=== PATIENT | male | born 1940 | race Caucasian/White ===

== ENCOUNTER → 2017-12-17 11:59 | Outpatient (CLI) | payer BC, MEDICARE, SELFPAY ==
[2017-12-17 14:52] LABS: T4 Free Direct 1.03 ng/dL (0.76-1.46); Thyroid Stim Hormone (TSH) 1.92 uIU/mL (0.358-3.74)
== END ==
PROVIDERS: Family Provider Family Medicine; PCP Family Medicine; Visit Provider Family Medicine
DX: R60.9 Edema, unspecified (principal); R53.83 Other fatigue
CPT/HCPCS: 36415; 84439; 84443

== ENCOUNTER → 2018-01-18 13:23 | Outpatient (CLI) | payer BC, MEDICARE, SELFPAY ==
--- NOTE | 2018-01-18 13:28 | RAD_ITS ---
STUDY: SWALLOWING STUDY REASON FOR EXAM: Male, 77 years old. Dysphagia. TECHNIQUE: The examination was performed with Speech Pathology in attendance. Under fluoroscopic observation, the patient ingested thin barium, thick barium, barium pudding, and barium coated cracker. FLUOROSCOPY TIME: 2:05 minutes/seconds. 1166 fluoroscopic images were obtained. RADIOLOGIST INVOLVEMENT: Radiologist was present and providing direct supervision. COMPARISON: None. FINDINGS: The following was observed during swallowing of the various mixtures of barium: Thin Barium: There was no evidence of aspiration or laryngeal penetration. Barium Pudding: There was no evidence of aspiration or laryngeal penetration. Barium Coated Cracker: There was no evidence of aspiration or laryngeal penetration. RAD/Swallowing Function w/Video IMPRESSION: Normal tailored barium swallow study. No evidence of increased risk for aspiration. The swallow study findings were discussed with the patient by the speech pathologist at the conclusion of the examination. Please see speech pathology report for more information and recommendations. Electronically Signed: Luisito Figueroa MD at 14:34 EDT Tel [phone], Service support ,
--- NOTE | 2018-01-18 13:30 | SP.MBSS_ITS ---
PRIMARY / SECONDARY DIAGNOSIS: dysphagia (R13.10) REFERRING PHYSICIAN: Dr. Yovanny Obando MD CURRENT DIET: regular textures, thin liquids DENTITION: WFL MENTAL STATUS: WNL RESPIRATORY STATUS: O2 via room air PREVIOUS MODIFIED BARIUM SWALLOW STUDY: none REASON FOR REFERRAL: Patient is a 77 year old male referred for a modified barium swallow (MBS) study to objectively assess the Patients oropharyngeal swallow function secondary to the diagnosis of inclusion body myositis. Patient reporting difficulties primarily with solid textures of various texture subtypes, with a consistent sensation of bolus retention requiring consistent liquid wash. Patient reports gradual onset with a gradual increase in regards to significance over the past 6 months. Dysphagia symptoms somewhat improve with execution of a right head tilt. Patient reports mild xerostomia; denies odynophagia, denies sialorrhea or dysgeusia / ageusia, denies any aspiration related pulmonary complications. Patient ambulating to the study with use of an assisted device (rollator walker); reports and demonstrates difficulties with standing from a seated position. MEDICAL HISTORY: Lymphoma, inclusion body myositis, osteopenia, anemia, hypertension STUDY FINDINGS: Patient participated in a Modified Barium Swallow (MBS) study on 01/18/2018. Dr. Figueroa was the radiologist present for this evaluation. This study was recorded in the lateral view and images were sent to PACs for storage. The following consistencies were presented to this patient for analysis of oropharyngeal swallow function: thin liquids, pudding, and a regular textured, Kay Doone cookie. Results of the MBS are as follows: PENETRATION / ASPIRATION SCALE (CLARKE): 1 = does not enter airway 2 = enters airway/above vocal folds/ejected 3 = enters airway/above vocal folds/not ejected 4 = enters airway/contacts vocal folds/ejected 5 = enters airway/contacts vocal folds/not ejected 6 = enters airway/below vocal folds/ejected 7 = enters airway/below vocal folds/not ejected despite effort 8 = enters airway/below vocal folds/no effort PENETRATION / ASPIRATION SCALE (SCORE): Thin liquid - 5 mL tsp.: 1 Thin liquids via cup (sequential swallows): 1 Thin liquids via cup (sequential swallows): 1 Pudding via spoon: 1 Pudding via spoon (right head tilt): 1 Thin liquids via cup (single sip): 1 Pudding via spoon (right head tilt): 1 Thin liquids via cup (single sip): 1 Regular textured cookie: 1 Thin liquids via cup (single sip): 1 Thin liquids via cup (single sip): 1 Thin liquids via cup (single sip): 1 IMPRESSION: DIAGNOSIS: mild to moderate oropharyngeal dysphagia (R13.12) ORAL PHASE CHARACTERIZED BY: LABIAL SEAL: no labial escape TONGUE CONTROL DURING BOLUS MANIPULATION: cohesive bolus between tongue to palatal seal BOLUS PREPARATION / MASTICATION: slow prolonged chewing/mashing with complete recollection BOLUS TRANSPORT / LINGUAL MOTION: slowed tongue motion primarily with more viscous and solid textures ORAL RESIDUE: residue collection on oral structures PHARYNGEAL PHASE CHARACTERIZED BY: INITIATION OF PHARYNGEAL SWALLOW: bolus head in valleculae at first hyoid excursion SOFT PALATE ELEVATION: no bolus between soft palate and pharyngeal wall LARYNGEAL ELEVATION: partial superior movement of thyroid cartilage/partial approximation of arytenoids cartilage to epiglottic petiole ANTERIOR HYOID EXCURSION: trace anterior movement EPIGLOTTIC MOVEMENT: partial epiglottic inversion LARYNGEAL VESTIBULE CLOSURE AT HEIGHT OF SWALLOW: complete laryngeal vestibule closure with no air/contrast in laryngeal vestibule PHARYNGEAL STRIPPING WAVE: pharyngeal stripping wave present / significantly diminished PHARYNGOESOPHAGEAL SEGMENT OPENING: partial duration; partial obstruction of flow TONGUE BASE RETRACTION: narrow column of contrast between tongue base and posterior pharyngeal wall PHARYNGEAL RESIDUE: collection of residue within or on pharyngeal structures ESOPHAGEAL PHASE CHARACTERIZED BY: ESOPHAGEAL BOLUS CLEARANCE IN THE UPRIGHT POSITION: could not view EFFECTS OF TREATMENT STRATEGIES ATTEMPTED: Right head tilt = moderately effective Liquid chaser = moderately effective Reduced bolus size = moderately effective DIET TEXTURE RECOMMENDATIONS: Will recommend a mechanical soft textured, thin liquid diet. COMPENSATORY STRATEGIES RECOMMENDED: Right head tilt primarily with solids, reduced bolus volume, liquid chaser following all solid and semi-solid bolus intake, seated upright at 90 degrees during PO intake, INTERPRETATION OF RESULTS: Patient presents with mild to moderate oropharyngeal dysphagia (R13.12) secondary to the diagnosis of inclusion body myositis. Oral preparatory phase marked by functional mastication abilities with mild increase in regards to mastication duration likely attributed to xerostomia and anticipated difficulties during the pharyngoesophageal phase of deglutition. Oral transit marked by somewhat slowed and disjointed transit primarily with more viscous textures and solid textures, with additional piecemeal deglutition and self- limited bolus volumes associated again to anticipated pharyngoesophageal phase deficits. Pharyngeal phase primarily marked by significant pharyngeal dysmotility attributed to impaired pharyngeal constriction, most notably impaired posterior pharyngeal stripping wave action, resulting in pharyngeal retention within the valleculae and pyriforms, and reduced pharyngoesophageal segment opening duration and synchrony complicating pharyngeal clearance; and reduced anterior hyoid excursion resulting in insufficient epiglottic inversion and inconsistent pharyngoesophageal segment opening and synchrony, with additional higher likelihood for reduced closure of the airway during deglutition. Modest improvements in pharyngeal clearance noted with a right head tilt and execution of a liquid wash. No aspiration or penetration appreciated throughout consistencies trialed. RECOMMENDATIONS: Patient may benefit from continued skilled speech-language intervention targeting continued diet texture management; training and implementation of recommended compensatory strategies; with further treatment planning following clinical examination. ADDITIONAL COMMENTS/RECOMMENDATIONS: Results and recommendations were discussed with the Patient immediately following MBS completion, with the Patient verbalizing understanding and agreement with all recommendations and education provided. IMAGE COUNT: [id number] G-CODES: SWALLOWING G8996 Current Status: CJ SWALLOWING G8997 Goal Status: CI SWALLOWING G8998 Discharge Status: YAJAIRA Radford M.A., CCC-TEST AND BALANCE ENGINEER [facility] Speech-Language Pathology Department [email or web address]
== END ==
PROVIDERS: Family Provider Family Medicine; PCP Family Medicine; Visit Provider Otolaryngology
DX: R13.10 Dysphagia, unspecified (principal); G72.41 Inclusion body myositis [IBM]
CPT/HCPCS: 74230; 92611; G8996; G8997; G8998

== ENCOUNTER → 2018-08-12 17:00 | Outpatient (CLI) | payer MEDICARE, OTHER, SELFPAY ==
[2017-12-04 13:17] VITALS: BMI 28.8
--- NOTE | 2018-08-12 | CYSPIN_PTH ---
PATIENT: JEANIE LANDRY LOC: [facility] U#:[id number] AGE/SX: 84/M ROOM: RE08/12/[address]: Dr. Andrea Jones MD : 1940 BED: DIS: SPEC #: [id number] RECD: 08/13/18 11:25 STATUS: RAFAT KARSON #: [id number] [place]: 08/12/18 00:[address]: Andrea Jones DEPT: CYTOLOGY RECD BY: Pilo Hawk ENTERED: 08/13/18 11:26 SP TYPE: CYSPIN FL OTHR DR: Dr. Tee Pendleton MD Tissues: Urine Procedures: Pap Stain (control) Special Stain Group II Cytospin Fluid HEADER OPERATION: Not noted PRE-OP DIAGNOSIS: Gross hematuria TISSUE SUBMITTED: Urine for cytology DIAGNOSIS CYTOLOGY Urine for cytology (cytospin): Negative for malignant cells. AM:jada 08/14/18 CYTOLOGY STUDY Slides are reviewed. CYTOLOGY GROSS Received is 85 ml of clear yellow fluid labeled with the patient's name and and designated per the requisition as urine. Submitted for cytology preparation. 08/13/18 TC:5 CPT: 48146
[2018-08-12 17:17] LABS: Cytology, Body Fluid / CSF SEE PATHOLOGY REPORT
== END ==
PROVIDERS: Family Provider Family Medicine; PCP Family Medicine; Referring Provider Urology; Visit Provider Urology
DX: R31.0 Gross hematuria (principal)
CPT/HCPCS: 88108; 88313

== ENCOUNTER → 2018-08-22 13:24 | Outpatient (CLI) | payer MEDICARE, OTHER, SELFPAY ==
[2017-12-04 13:17] VITALS: BMI 28.8
--- NOTE | 2018-08-22 13:28 | CT_ITS ---
STUDY: CT ABDOMEN AND PELVIS WITH AND WITHOUT CONTRAST REASON FOR EXAM: Male, 77 years old. Hematuria RADIATION DOSAGE (If Supplied By Facility): CTDIvol = ( 21.31 ) mGy, DLP = ( 2420.35 ) mGycm TECHNIQUE: Transaxial images were obtained from the dome of the diaphragm to the symphysis pubis without oral contrast. 100 IV Isovue 300 was administered. Sagittal and coronal images were reconstructed. Individualized dose optimization techniques were used for this CT. COMPARISON: None. FINDINGS: The visualized lung bases are unremarkable. The visualized portions of the heart are within normal limits. Normal liver. Normal gallbladder and extrahepatic biliary system. Normal spleen. Normal pancreas. Normal bilateral adrenal glands. There are no urinary calculi. There is no hydronephrosis. There is symmetric enhancement and excretion noted in the kidneys following contrast administration. There is a large hiatal hernia noted. Normal small intestine. Normal colon. The appendix is visualized and appears normal. Normal abdominal aorta. Normal inferior vena cava. Normal retroperitoneum. Normal urinary bladder. Normal abdominal wall. Normal osseous structures. CT/CT Abd/Pelvis W/WO Contrast IMPRESSION: No cause for patient's hematuria identified on this study. Large hiatal hernia. Electronically Signed: Fuad Duque, at 20:12 EDT Tel , Service support ,
[2018-08-22 13:56] LABS: CREATININE FINGERSTICK 0.8 mg/dL (0.70-1.30)
== END ==
PROVIDERS: Family Provider Family Medicine; PCP Family Medicine; Referring Provider Urology; Visit Provider Urology
DX: R31.0 Gross hematuria (principal)
CPT/HCPCS: 74178; Q9967

== ENCOUNTER → 2019-07-07 15:30 | Outpatient (CLI) | payer MEDICARE, OTHER, SELFPAY ==
--- NOTE | 2019-07-07 15:33 | VDLE_ITS ---
Reason For Study: Edema RIGHT GSV is normal. CFV is compressible, spontaneous, phasic, competent and demonstrates normal augmentation. FV is compressible, spontaneous, phasic, competent and demonstrates normal augmentation. POP V is compressible, spontaneous, phasic, competent and demonstrates normal augmentation. T/P Trunk is compressible. PTV is compressible. RT PerV is compressible. Difficult to visualize Rt calf veins due to edema. Procedure Exam performed in department. A preliminary report was called and/or faxed to Dr. Pendleton. Interpretation Summary There is no evidence of right lower extremity deep vein thrombosis. Right great saphenous vein appears patent and compressible segmentally. Difficult to visualize right calf veins as noted. Ordering Physician: Tee Pendleton Referring Physician: Tee Pendleton Performed By: [place] Saleh, DELORIS, RVT
== END ==
PROVIDERS: PCP Family Medicine; Referring Provider Family Medicine; Visit Provider Family Medicine
DX: R60.0 Localized edema (principal)
CPT/HCPCS: 93971

== ENCOUNTER 2022-09-13 16:37 | Outpatient (RCR) | payer MEDICARE, OTHER, SELFPAY ==
[2022-09-13 17:15] LABS: Bacteria 0 SEEN /hpf (None Seen); Mucous, Urine 0 SEEN /hpf (<or=2+); Red Blood Cells-Urine 0 SEEN /hpf (0-5); Squamous Epithelial Cells - UA 0 SEEN /hpf (0-5); White Blood Cells 0 SEEN /hpf (0-5)
[2022-09-13 17:24] LABS: Absolute Lymphocyte Count 1.17 X10^3/uL (0.83-4.51); Absolute Neutrophil Count 2.9 X10^3/uL (2.0-7.7); Basophil# 0.04 X10^3/uL; Basophil% 0.8 % (0-1); Eosinophil# 0.15 X10^3/uL; Hematocrit 41.6 % (40-54); Hemoglobin 13.5 g/dL (13.0-16.5); Lymphocyte # 1.17 X10^3/ul (0.83-4.51); Lymphocyte % 23.5 % (19-41); Mean Corp Hgb Conc 32.5 g/dL (32-36); Mean Corpuscular Hgb 31.8 pg (27.0-32.0); Mean Corpuscular Volume 97.9 fL (80-94); Mean Platelet Vol. 11.4 fl (6.2-12.0); Monocyte# 0.71 X10^3/uL; Monocyte% 14.3 % (0-10); NRBC Flagged by Analyzer 0 % (0-5); Neutrophil # 2.88 X10^3/uL (2.7-7.7); Platelet Count 188 K/mm3 (150-450); RBC Distribution Width CV 12.9 % (11.6-14.6); RBC Distribution Width SD 46.2 fl (35.1-43.9); Red Blood Count 4.25 M/mm3 (4.6-6.2)
[2022-09-13 17:46] LABS: Vitamin B12 982 pg/mL (211-911); Vitamin D,25 Hydroxy 95.7 ng/mL
[2022-09-13 18:03] LABS: Microalbumin,Random Urine 16.1 mg/L (NO RANGE EST.); Microalbumin:Creatinine Ratio 54.2 mg/g CRE (<30 mg/g CRE)
[2022-09-13 18:12] LABS: Color, Urine Yellow (Yellow); Glucose, Dipstick Normal (Normal); Ketone-Dipstick Negative (Negative); Leukocyte Esterase-Dipstick 25 /ul (Negative); Nitrite-Dipstick Negative (Negative); Occult Blood-Urine Negative /ul (Negative); Protein-Dipstick Negative (Negative); Urine Bilirubin Dipstick Negative (Negative); Urine Clarity Clear (Clear); Urine Urobilinogen Normal (Normal); Urine pH 6.5 (5.0 - 8.0)
[2022-09-13 18:19] LABS: BNP,B-Type NATRIURETIC PEPTIDE 20.3 pg/mL (0-100)
[2022-09-13 18:23] LABS: ALB/GLOB Ratio 1.1 RATIO (0.9-2.4); AST(SGOT) 16 U/L (15-37); Alanine Aminotransfer ALT/SGPT 26 U/L (16-61); Albumin, Serum 3.8 g/dL (3.2-5.0); Alkaline Phosphatase 63 U/L (45-117); Anion Gap 5 (5-15); BUN 20 mg/dL (7-18); BUN/Creat Ratio 48.7 RATIO (10-20); Calcium,Total 9.4 mg/dL (8.5-10.1); Chloride 105 mmol/L (98-107); Cholesterol 175 mg/dL (200); Creatinine, Serum 0.41 mg/dL (0.70-1.30); EST Glomerular Filtration Rate 211 mL/min (>60); Est Glom Filt Rate - Afr Amer 255 mL/min (>60); Globulin 3.6 g/dL (2.2-4.2); Glucose 122 mg/dL (74-106); High Density Lipoprotein 79 mg/dL; PSA,Total - Annual Screen 3.23 ng/mL (0.00-4.00); Potassium 4.5 mmol/L (3.5-5.1); Protein, Total 7.4 g/dL (6.4-8.2); Sodium Level 139 mmol/L (136-145); Thyroid Stim Hormone (TSH) 2.06 uIU/mL (0.358-3.74); Triglycerides 91 mg/dL; Very Low Density Lipoprotein 18 mg/dL (5-40)
== END 2022-10-04 23:59 ==
LOC: HHLAB 16:37
PROVIDERS: PCP Family Medicine; Referring Provider Internal Medicine; Visit Provider Internal Medicine
DX: L03.115 Cellulitis of right lower limb (principal); I87.2 Venous insufficiency (chronic) (peripheral); L97.819 Non-pressure chronic ulcer of other part of right lower leg with unspecified severity
CPT/HCPCS: 80053; 80061; 81001; 82043; 82306; 82570; 82607; 82746; 83880; 84153; 84443; 85025; G0103

== ENCOUNTER 2022-12-17 15:34 | Emergency (ER) | payer MEDICARE, OTHER, SELFPAY ==
[2022-12-17 15:35] VITALS: BP 167/68; PULSE 65; RESP 18; TEMP 36.2; O2SAT 98
--- NOTE | 2022-12-17 15:42 | CT_ITS ---
STUDY: CT BRAIN WITHOUT CONTRAST REASON FOR EXAM: Male, 82 years old. fall, head injury RADIATION DOSAGE (If Supplied By Facility): CTDIvol = ( 44.99 ) mGy, DLP = ( 526.67 ) mGycm TECHNIQUE: Transaxial CT imaging of the brain was performed without administration of intravenous contrast material. Individualized dose optimization techniques were used for this CT. COMPARISON: No relevant priors. FINDINGS: Normal soft tissue structures. Normal calvarium. Calcific plaquing of the cavernous carotids Normal size ventricles and extra-axial spaces for the patient''s age. Mild periventricular white matter ischemic changes.. Normal basal ganglia and thalami. Normal brainstem. Normal cerebellum. There is no intracranial hemorrhage. There are no findings of an acute ischemic infarction. Postsurgical changes of the orbits Mild mucosal thickening of the ethmoid air cells CT/Brain/Head without Contrast IMPRESSION: Mild periventricular white matter ischemic change. No evidence for acute intracranial hemorrhage. Electronically Signed: Paulie Licona MD at 16:07 EDT ,
--- NOTE | 2022-12-17 15:46 | EX.ED.DYSGE1 ---
HPI <BENNETT Miranda - Last Filed: 12/17/22 18:48> History of Present Illness Chief Complaint: Fall Narrative Narrative: Patient presenting due to a fall that occurred at home this afternoon. He reports that he was trying to watch the baseball game and went to stand up to change the channel on the TV and normally has to lock his knees in order to ambulate due to his history of myositis and loss of muscle mass, however, his knees became unlocked and he lost his balance and fell onto his bottom and then hit his head on the ground. He reports that the ground is cement with a thin layer of carpet. He has a laceration to the back of his head. He is unsure of his last tetanus update. He denies loss of consciousness, use of blood thinners, vomiting, feeling dazed or confused. PFS <BENNETT Miranda - Last Filed: 12/17/22 18:48> [facility] Medical History Anemia CYST EXCISION RIGHT BREAST Hypertension Myositis Osteopenia Home Medications lisinopril 10 mg tablet 5 mg PO DAILY 03/29/16 [History Last Taken Unknown] Cholecalciferol (Vitamin D3) 1,000 units PO DAILY 07/31/16 [History Last Taken Unknown] multivitamin with folic acid 400 mcg tablet (Thera) 1 tab PO DAILY 07/31/16 [History Last Taken Unknown] cyanocobalamin (vitamin B-12) 1,000 mcg sublingual tablet 1,000 mcg sublingual DAILY 12/04/17 [History Last Taken Unknown] Nitric Oxide 420 mg PO DAILY 12/04/18 [History Last Taken Unknown] coenzyme Q10 50 mg chewable tablet 200 mg PO DAILY 12/04/18 [History Last Taken Unknown] elderberry fruit 200 mg capsule 200 mg PO DAILY 12/17/22 [History Last Taken Unknown] turmeric 400 mg capsule 400 mg PO DAILY 12/17/22 [History Last Taken Unknown] Allergy/AdvReac Type Severity Reaction Status Date / Time bacitracin AdvReac Mild Itching Verified 12/17/22 15:35 [From Neosporin ([id number])] neomycin AdvReac Mild Itching Verified 12/17/22 15:35 [From Neosporin ([id number])] polymyxin B AdvReac Mild Itching Verified 12/17/22 15:35 [From Neosporin ([id number])] adhesive tape AdvReac Unknown Verified 12/17/22 15:35 Family History Father Colon cancer Mother Gastric cancer Surgical History History of cataract extraction Social History Smoking Status: Never smoker ROS <BENNETT Miranda - Last Filed: 12/17/22 18:48> ROS ED Constitutional Constitutional ED: Denies chills or fever(s) Eyes Eyes: Denies change in vision Cardiovascular Cardiovascular: Denies chest pain or palpitations Respiratory/Chest Respiratory/Chest: Denies cough or dyspnea Gastrointestinal Gastrointestinal: Denies abdominal pain, nausea or vomiting Musculoskeletal Musculoskeletal: Reports arthralgias; Denies back pain, myalgias or neck pain Integumentary Reports laceration Neurologic Neurologic: Denies confusion, dizziness, headache(s) or weakness EXAM <BENNETT Miranda - Last Filed: 12/17/22 18:48> Physical Exam Const Vital Signs: 12/17/22 15:35 12/17/22 15:43 Temperature 97.2 F L Temperature Source Temporal Pulse Rate 65 Respiratory Rate 18 Respiratory Effort Normal Non-Labored Respiratory Depth Normal Respiratory Pattern Normal Blood Pressure 167/68 H Blood Pressure Mean 101 Pulse Ox 98 Oxygen Delivery Method Room Air Positive well nourished, well developed and no apparent distress General Appearance ED: well developed HEENT Reports normocephalic HEENT Narrative: 4 cm linear full-thickness laceration to the posterior scalp Mouth ED: Yes moist mucous membranes normal Eyes PERRL and EOMs intact bilaterally Neck full ROM and supple Chest Wall inspection of chest normal Resp normal respiratory effort and clear to auscultation bilaterally Cardio regular rate and regular rhythm GI soft to palpation, non-tender, non-distended and no masses Back/Spine normal ROM and normal to inspection Extremity normal to inspection and full ROM Neuro oriented x3, CN's II-XII intact bilaterally, moves all extremities, no focal motor deficits and no sensory deficits noted Sensorium / Orientation: awake and alert Psych mental status grossly normal and thought process normal Skin no rashes or lesions noted and no wounds <Dr. Tor Yadav MD - Last Filed: 12/17/22 16:06> Physical Exam Const Vital Signs: 12/17/22 15:35 12/17/22 15:43 Temperature 97.2 F L Temperature Source Temporal Pulse Rate 65 Respiratory Rate 18 Respiratory Effort Normal Non-Labored Respiratory Depth Normal Respiratory Pattern Normal Blood Pressure 167/68 H Blood Pressure Mean 101 Pulse Ox 98 Oxygen Delivery Method Room Air MDM <BENNETT Miranda - Last Filed: 12/17/22 18:48> [facility] Narrative Medical decision making narrative: Patient presenting today for evaluation after mechanical fall that occurred this afternoon at home. He fell backwards onto his bottom and then hit his head on the ground. He does have a 4 cm linear full-thickness laceration to his posterior scalp that will need closure. He reports some pain to his bilateral knees but did not hit his knees on the ground, therefore, I do not feel that any imaging of his knees is indicated. However, he did tell the attending that his back was very sore, lumbar x-ray obtained to rule out fracture and is negative. Head CT will be obtained to rule out intracranial bleed and is negative for any acute fractures. Tetanus updated. Laceration was sutured, patient tolerated procedure well. He was able to ambulate at discharge and discharged home in stable condition. Patient and are comfortable with plan. I have personally performed a face to face assessment of the patient and have reviewed the GET Note. I performed a substantive portion of the visit including all aspects of the following. My [place] findings include: History is 82-year-old male history of inclusion body myositis with muscular wasting. He is down his basement and lost his balance fell backwards struck his head causing a laceration. No LOC. Is not on blood thinners. Complaining of low back pain. No other injuries. Exam is [82-year-old male vital signs stable afebrile. HEENT exam top of the scalp is a vertical laceration which on active losing of blood. Hematoma. Tenderness. Face nontender. C-spine and trachea nontender. Lungs clear. Chest wall and ribs nontender. Heart regular rhythm rate about 65 no murmur. Abdomen soft nontender. Pelvic girdle intact. He has very limited range of motion he is weak in both upper and lower extremities due to his chronic condition. He has chronic edema both lower extremities. He has mild tenderness over his lumbar spine. Neurologically he is awake and alert. Answering questions and following commands. He has generalized weakness.] Medical Decision Making [82-year-old fell has a significant head injury with laceration and hematoma. CAT scan will be obtained to rule out intracranial bleed or skull fracture. Tetanus has been updated. He will be suture repaired.] Other additions or changes: [None] Radiography X-Ray: Read by ED Physician and Read by Radiologist Diagnostic Testing: Clinical Impression(s) from Imaging Studies Brain CT 12/17/22 15:42 IMPRESSION: Mild periventricular white matter ischemic change. No evidence for acute intracranial hemorrhage. Electronically Signed: Paulie Licona MD at 16:07 EDT , Lumbar Spine X-Ray 12/17/22 16:15 IMPRESSION: Scoliosis and degenerative change. No acute fracture or other significant bony pathology. Electronically Signed: Paulie Licona MD at 16:43 EDT , <Dr. Tor Yadav MD - Last Filed: 12/17/22 16:06> [facility] Narrative Medical decision making narrative: Patient presenting today for evaluation after mechanical fall that occurred this afternoon at home. He fell backwards onto his bottom and then hit his head on the ground. He does have a 4 cm linear full-thickness laceration to his posterior scalp that will need closure. He reports some pain to his bilateral knees but did not hit his knees on the ground, therefore, I do not feel that any imaging of his knees is indicated. Head CT will be obtained to rule out intracranial bleed. I have personally performed a face to face assessment of the patient and have reviewed the GET Note. I performed a substantive portion of the visit including all aspects of the following. My [place] findings include: History is 82-year-old male history of inclusion body myositis with muscular wasting. He is down his basement and lost his balance fell backwards struck his head causing a laceration. No LOC. Is not on blood thinners. Complaining of low back pain. No other injuries. Exam is [82-year-old male vital signs stable afebrile. HEENT exam top of the scalp is a vertical laceration which on active losing of blood. Hematoma. Tenderness. Face nontender. C-spine and trachea nontender. Lungs clear. Chest wall and ribs nontender. Heart regular rhythm rate about 65 no murmur. Abdomen soft nontender. Pelvic girdle intact. He has very limited range of motion he is weak in both upper and lower extremities due to his chronic condition. He has chronic edema both lower extremities. He has mild tenderness over his lumbar spine. Neurologically he is awake and alert. Answering questions and following commands. He has generalized weakness.] Medical Decision Making [82-year-old fell has a significant head injury with laceration and hematoma. CAT scan will be obtained to rule out intracranial bleed or skull fracture. Tetanus has been updated. He will be suture repaired.] Other additions or changes: [None] History & Record Review Discussion w/independent historian: Patient and Family Radiography Diagnostic Testing: Clinical Impression(s) from Imaging Studies Brain CT 12/17/22 15:42 IMPRESSION: Mild periventricular white matter ischemic change. No evidence for acute intracranial hemorrhage. Electronically Signed: Paulie Licona MD at 16:07 EDT , Lumbar Spine X-Ray 12/17/22 16:15 IMPRESSION: Scoliosis and degenerative change. No acute fracture or other significant bony pathology. Electronically Signed: Paulie Licona MD at 16:43 EDT , Procedures <BENNETT Miranda - Last Filed: 12/17/22 18:48> Lacerations Laceration: Length: 4 cm Depth: Sub Q Shape: Linear Laceration repair: Irrigated and Lidocaine with epi Irrigated (ml): 100 Number of Sutures/Naveen: 6 Suture Information: Ethilon (4-0) and Simple Discharge Plan Triage Chief Complaint: Fall Other Complaint: Head Injury Laceration ED Midlevel Provider: Maria Dolores Shay ED Provider: Tor Yadav Dx/Rx/DC Orders Clinical Impression: Head injury, Fall, Laceration of scalp Instructions: ED Head Injury (Adult), ED Laceration Scalp Stitches or Naveen Prescriptions: No Action multivitamin with folic acid [Thera] 1 TABLET tablet 1 tab PO DAILY Cholecalciferol (Vitamin D3) 1,000 U 1,000 units PO DAILY lisinopril 10 mg tablet 5 mg PO DAILY Patient Comments: once a day cyanocobalamin (vitamin B-12) 1,000 MCG tablet, sublingual 1,000 mcg sublingual DAILY coenzyme Q10 50 MG tablet,chewable 200 mg PO DAILY Nitric Oxide 420 mg PO DAILY turmeric 400 mg capsule 400 mg PO DAILY elderberry fruit 200 mg capsule 200 mg PO DAILY Primary Care Provider: Taylor Zuniga Referrals: Tee Pendleton MD [Non-Staff] - 10-14 Days suture removal Activity Restrictions/Additional Instructions: Please follow-up with your PCP. Please have sutures removed in 10 to 14 days and return for any worsening of your symptoms. Disposition Disposition: Home, Self Care Discharge Date/Time: 12/17/22 18:08
[2022-12-17] MEDS: Diphth,Pertuss(Acell),Tet Vac 0.5 ML Vial IM (15:49)
--- NOTE | 2022-12-17 16:15 | RAD_ITS ---
STUDY: X-RAY - LUMBAR SPINE REASON FOR EXAM: Male, 82 years old. fall TECHNIQUE: AP and lateral view(s) of the lumbar spine were obtained. COMPARISON: None FINDINGS: Normal lumbar lordosis. There is mild to moderate dextro scoliosis. There is a normal alignment of the vertebrae. No evidence for acute fracture or subluxation. No lytic or sclerotic bony lesions. . There is multilevel disc space narrowing and endplate spurring. Diffuse calcification of the abdominal aorta without evidence for aneurysm. RAD/Lumbar Spine 2 or 3 Views IMPRESSION: Scoliosis and degenerative change. No acute fracture or other significant bony pathology. Electronically Signed: Paulie Licona MD at 16:43 EDT ,
[2022-12-17] MEDS: Lidocaine 1% /Epi 1:100 (20ml) 20 ML Vial 10 ML INFILT (16:47)
== END 2022-12-17 18:08 | disposition home or self-care (01) ==
PROVIDERS: Emergency Provider Emergency Medicine; PCP Internal Medicine; Visit Provider Emergency Medicine
DX: S01.01XA Laceration without foreign body of scalp, initial encounter (principal); I10 Essential (primary) hypertension; Z79.899 Other long term (current) drug therapy; Z98.49 Cataract extraction status, unspecified eye; S09.8XXA Other specified injuries of head, initial encounter; W18.39XA Other fall on same level, initial encounter; Y92.009 Unspecified place in unspecified non-institutional (private) residence as the place of occurrence of the external cause
CPT/HCPCS: 12002; 70450; 72100; 90715; 99285

== ENCOUNTER → 2023-01-03 | Outpatient (CLI) | payer MEDICARE, OTHER, SELFPAY ==
[2023-01-03 11:42] LABS: Absolute Lymphocyte Count 1.42 X10^3/uL (0.83-4.51); Absolute Neutrophil Count 1.7 X10^3/uL (2.0-7.7); Basophil# 0.02 X10^3/uL; Basophil% 0.5 % (0-1); Eosinophil# 0.19 X10^3/uL; Eosinophils% 4.9 % (0-5); Hematocrit 40.5 % (40-54); Hemoglobin 13.4 g/dL (13.0-16.5); Lymphocyte # 1.42 X10^3/ul (0.83-4.51); Lymphocyte % 36.7 % (19-41); Mean Corp Hgb Conc 33.1 g/dL (32-36); Mean Corpuscular Hgb 31.8 pg (27.0-32.0); Mean Corpuscular Volume 96.2 fL (80-94); Mean Platelet Vol. 10.5 fl (6.2-12.0); Monocyte# 0.53 X10^3/uL; Monocyte% 13.7 % (0-10); NRBC Flagged by Analyzer 0 % (0-5); Neutrophil # 1.69 X10^3/uL (2.7-7.7); Neutrophil % 43.7 % (47-70); Platelet Count 207 K/mm3 (150-450); RBC Distribution Width CV 12.8 % (11.6-14.6); RBC Distribution Width SD 45.7 fl (35.1-43.9); Red Blood Count 4.21 M/mm3 (4.6-6.2); White Blood Count 3.9 K/mm3 (4.4-11.0)
[2023-01-03 12:04] LABS: ALB/GLOB Ratio 1.1 RATIO (0.9-2.4); AST(SGOT) 15 U/L (15-37); Alanine Aminotransfer ALT/SGPT 21 U/L (16-61); Albumin, Serum 3.6 g/dL (3.2-5.0); Alkaline Phosphatase 122 U/L (45-117); Anion Gap 4 (5-15); BUN 16 mg/dL (7-18); BUN/Creat Ratio 39.3 RATIO (10-20); Calcium,Total 9.2 mg/dL (8.5-10.1); Chloride 104 mmol/L (98-107); Creatinine, Serum 0.41 mg/dL (0.70-1.30); EST Glomerular Filtration Rate 213 mL/min (>60); Est Glom Filt Rate - Afr Amer 258 mL/min (>60); Globulin 3.4 g/dL (2.2-4.2); Glucose 94 mg/dL (74-106); Potassium 4.5 mmol/L (3.5-5.1); Sodium Level 137 mmol/L (136-145)
[2023-01-03 12:05] LABS: Vitamin D,25 Hydroxy 96.1 ng/mL
== END | disposition home or self-care (01) ==
LOC: LAB 08:18
PROVIDERS: PCP Internal Medicine; Referring Provider Internal Medicine; Visit Provider Internal Medicine
DX: C85.90 Non-Hodgkin lymphoma, unspecified, unspecified site (principal); R53.1 Weakness; R73.01 Impaired fasting glucose; R79.89 Other specified abnormal findings of blood chemistry; I10 Essential (primary) hypertension
CPT/HCPCS: 36415; 80053; 82306; 83036; 85025

== ENCOUNTER → 2023-03-15 | Outpatient (CLI) | payer MEDICARE, OTHER, SELFPAY ==
[2023-03-15 11:37] LABS: Absolute Lymphocyte Count 1.24 X10^3/uL (0.83-4.51); Absolute Neutrophil Count 2.3 X10^3/uL (2.0-7.7); Basophil# 0.03 X10^3/uL; Basophil% 0.7 % (0-1); Eosinophil# 0.12 X10^3/uL; Eosinophils% 2.9 % (0-5); Hematocrit 41.8 % (40-54); Hemoglobin 13.6 g/dL (13.0-16.5); Lymphocyte # 1.24 X10^3/ul (0.83-4.51); Lymphocyte % 29.7 % (19-41); Mean Corp Hgb Conc 32.5 g/dL (32-36); Mean Corpuscular Hgb 31.4 pg (27.0-32.0); Mean Corpuscular Volume 96.5 fL (80-94); Mean Platelet Vol. 10.7 fl (6.2-12.0); Monocyte# 0.49 X10^3/uL; Monocyte% 11.7 % (0-10); NRBC Flagged by Analyzer 0 % (0-5); Neutrophil # 2.28 X10^3/uL (2.7-7.7); Neutrophil % 54.5 % (47-70); Platelet Count 190 K/mm3 (150-450); RBC Distribution Width CV 12.2 % (11.6-14.6); RBC Distribution Width SD 43.7 fl (35.1-43.9); Red Blood Count 4.33 M/mm3 (4.6-6.2); White Blood Count 4.2 K/mm3 (4.4-11.0)
[2023-03-15 11:54] LABS: ALB/GLOB Ratio 1.1 RATIO (0.9-2.4); AST(SGOT) 14 U/L (15-37); Alanine Aminotransfer ALT/SGPT 18 U/L (16-61); Albumin, Serum 3.7 g/dL (3.2-5.0); Alkaline Phosphatase 60 U/L (45-117); Anion Gap 1 (5-15); BUN 12 mg/dL (7-18); BUN/Creat Ratio 28.3 RATIO (10-20); Calcium,Total 9.2 mg/dL (8.5-10.1); Chloride 102 mmol/L (98-107); Creatinine, Serum 0.42 mg/dL (0.70-1.30); EST Glomerular Filtration Rate 203 mL/min (>60); Est Glom Filt Rate - Afr Amer 246 mL/min (>60); Globulin 3.3 g/dL (2.2-4.2); Glucose 115 mg/dL (74-106); Potassium 4.4 mmol/L (3.5-5.1); Sodium Level 135 mmol/L (136-145)
[2023-03-15 11:56] LABS: Vitamin D,25 Hydroxy 105.2 ng/mL
== END | disposition home or self-care (01) ==
LOC: LAB 10:17
PROVIDERS: PCP Internal Medicine; Referring Provider Internal Medicine; Visit Provider Internal Medicine
DX: R79.89 Other specified abnormal findings of blood chemistry (principal); I10 Essential (primary) hypertension
CPT/HCPCS: 36415; 80053; 82306; 85025

== ENCOUNTER → 2023-04-18 | Outpatient (CLI) | payer MEDICARE, OTHER, SELFPAY ==
[2023-04-18 11:56] LABS: Vitamin D,25 Hydroxy 85.4 ng/mL
[2023-04-18 12:05] LABS: ALB/GLOB Ratio 1.1 RATIO (0.9-2.4); AST(SGOT) 18 U/L (15-37); Alanine Aminotransfer ALT/SGPT 18 U/L (16-61); Albumin, Serum 3.7 g/dL (3.2-5.0); Alkaline Phosphatase 59 U/L (45-117); Anion Gap 6 (5-15); BUN 15 mg/dL (7-18); BUN/Creat Ratio 38.5 RATIO (10-20); Calcium,Total 9.2 mg/dL (8.5-10.1); Chloride 103 mmol/L (98-107); Creatinine, Serum 0.39 mg/dL (0.70-1.30); EST Glomerular Filtration Rate 224 mL/min (>60); Est Glom Filt Rate - Afr Amer 271 mL/min (>60); Globulin 3.4 g/dL (2.2-4.2); Glucose 94 mg/dL (74-106); Potassium 4.6 mmol/L (3.5-5.1); Protein, Total 7.1 g/dL (6.4-8.2); Sodium Level 137 mmol/L (136-145)
== END | disposition home or self-care (01) ==
LOC: LAB 10:14
PROVIDERS: PCP Internal Medicine; Visit Provider Internal Medicine
DX: R73.01 Impaired fasting glucose (principal); E67.3 Hypervitaminosis D
CPT/HCPCS: 36415; 80053; 82306; 83036

== ENCOUNTER → 2023-07-27 | Outpatient (CLI) | payer MEDICARE, OTHER, SELFPAY ==
[2023-07-27 11:07] LABS: Absolute Lymphocyte Count 1.36 X10^3/uL (0.83-4.51); Absolute Neutrophil Count 2.2 X10^3/uL (2.0-7.7); Basophil# 0.04 X10^3/uL; Basophil% 0.9 % (0-1); Eosinophil# 0.28 X10^3/uL; Eosinophils% 6.2 % (0-5); Hematocrit 41.7 % (40-54); Hemoglobin 13.5 g/dL (13.0-16.5); Lymphocyte # 1.36 X10^3/ul (0.83-4.51); Lymphocyte % 30.2 % (19-41); Mean Corp Hgb Conc 32.4 g/dL (32-36); Mean Corpuscular Hgb 30.6 pg (27.0-32.0); Mean Corpuscular Volume 94.6 fL (80-94); Mean Platelet Vol. 10.1 fl (6.2-12.0); Monocyte# 0.67 X10^3/uL; Monocyte% 14.9 % (0-10); NRBC Flagged by Analyzer 0 % (0-5); Neutrophil # 2.15 X10^3/uL (2.7-7.7); Neutrophil % 47.6 % (47-70); Platelet Count 222 K/mm3 (150-450); RBC Distribution Width CV 12.2 % (11.6-14.6); RBC Distribution Width SD 42.5 fl (35.1-43.9); Red Blood Count 4.41 M/mm3 (4.6-6.2); White Blood Count 4.5 K/mm3 (4.4-11.0)
[2023-07-27 11:30] LABS: Vitamin B12 1966 pg/mL (211-911); Vitamin D,25 Hydroxy 76.3 ng/mL
[2023-07-27 13:02] LABS: ALB/GLOB Ratio 0.9 RATIO (0.9-2.4); AST(SGOT) 22 U/L (15-37); Alanine Aminotransfer ALT/SGPT 18 U/L (16-61); Albumin, Serum 3.6 g/dL (3.2-5.0); Alkaline Phosphatase 64 U/L (45-117); Anion Gap 5 (5-15); BUN 11 mg/dL (7-18); BUN/Creat Ratio 25.6 RATIO (10-20); Calcium,Total 9.6 mg/dL (8.5-10.1); Chloride 99 mmol/L (98-107); Creatinine, Serum 0.43 mg/dL (0.70-1.30); EST Glomerular Filtration Rate 201 mL/min (>60); Est Glom Filt Rate - Afr Amer 243 mL/min (>60); Globulin 3.8 g/dL (2.2-4.2); Glucose 134 mg/dL (74-106); Potassium 4.7 mmol/L (3.5-5.1); Protein, Total 7.4 g/dL (6.4-8.2); Sodium Level 134 mmol/L (136-145)
[2023-07-27 17:06] LABS: Hemoglobin A1c 5.1 % (3.8-5.6)
== END | disposition home or self-care (01) ==
LOC: LAB 09:44
PROVIDERS: PCP Internal Medicine; Visit Provider Internal Medicine
DX: I10 Essential (primary) hypertension (principal); E67.3 Hypervitaminosis D; R73.01 Impaired fasting glucose; R53.1 Weakness
CPT/HCPCS: 36415; 80053; 82306; 82607; 82746; 83036; 85025

== ENCOUNTER → 2023-11-23 | Outpatient (CLI) | payer MEDICARE, OTHER, SELFPAY ==
[2023-11-23 11:14] LABS: Absolute Lymphocyte Count 1.47 X10^3/uL (0.83-4.51); Absolute Neutrophil Count 1.8 X10^3/uL (2.0-7.7); Basophil# 0.03 X10^3/uL; Basophil% 0.8 % (0-1); Eosinophil# 0.16 X10^3/uL; Eosinophils% 4.1 % (0-5); Hematocrit 40.3 % (40-54); Hemoglobin 13.4 g/dL (13.0-16.5); Lymphocyte # 1.47 X10^3/ul (0.83-4.51); Lymphocyte % 37.4 % (19-41); Mean Corp Hgb Conc 33.3 g/dL (32-36); Mean Corpuscular Hgb 31.7 pg (27.0-32.0); Mean Corpuscular Volume 95.3 fL (80-94); Mean Platelet Vol. 9.9 fl (6.2-12.0); Monocyte# 0.44 X10^3/uL; Monocyte% 11.2 % (0-10); NRBC Flagged by Analyzer 0 % (0-5); Neutrophil # 1.83 X10^3/uL (2.7-7.7); Neutrophil % 46.5 % (47-70); Platelet Count 204 K/mm3 (150-450); RBC Distribution Width CV 12.4 % (11.6-14.6); RBC Distribution Width SD 43.3 fl (35.1-43.9); Red Blood Count 4.23 M/mm3 (4.6-6.2); White Blood Count 3.9 K/mm3 (4.4-11.0)
[2023-11-23 11:23] LABS: ALB/GLOB Ratio 1.1 RATIO (0.9-2.4); AST(SGOT) 18 U/L (15-37); Alanine Aminotransfer ALT/SGPT 18 U/L (16-61); Albumin, Serum 3.8 g/dL (3.2-5.0); Alkaline Phosphatase 58 U/L (45-117); Anion Gap 4 (5-15); BUN 16 mg/dL (7-18); BUN/Creat Ratio 37.7 RATIO (10-20); Calcium,Total 9.5 mg/dL (8.5-10.1); Chloride 102 mmol/L (98-107); Creatinine, Serum 0.42 mg/dL (0.70-1.30); EST Glomerular Filtration Rate 203 mL/min (>60); Est Glom Filt Rate - Afr Amer 246 mL/min (>60); Globulin 3.4 g/dL (2.2-4.2); Glucose 130 mg/dL (74-106); Potassium 4.8 mmol/L (3.5-5.1); Protein, Total 7.2 g/dL (6.4-8.2); Sodium Level 135 mmol/L (136-145)
[2023-11-23 11:43] LABS: Vitamin D,25 Hydroxy 68.6 ng/mL
[2023-11-23 11:57] LABS: Hemoglobin A1c 4.8 % (3.8-5.6)
== END | disposition home or self-care (01) ==
LOC: LAB 10:06
PROVIDERS: PCP Internal Medicine; Visit Provider Internal Medicine
DX: E87.1 Hypo-osmolality and hyponatremia (principal); I10 Essential (primary) hypertension; R79.89 Other specified abnormal findings of blood chemistry; R73.01 Impaired fasting glucose
CPT/HCPCS: 36415; 80053; 82306; 83036; 85025

== ENCOUNTER 2024-01-29 14:36 | Inpatient (IN) | payer MEDICARE, OTHER, SELFPAY ==
[2024-01-29] VITALS (10 sets, daily range): BP systolic 126–174; BP diastolic 54–129; PULSE 66–78; RESP 16–20; TEMP 36.6–37.1; O2SAT 95–98; BMI 22.8; BMI 24.9
--- NOTE | 2024-01-29 15:12 | EX.ED.DYSGE1 ---
HPI History of Present Illness Chief Complaint: Cellulitis Detail of Chief Complaint: Cellulitis to right leg Informant: patient Narrative Narrative: Patient presents to the emergency department complaint of cellulitis of the right lower extremity. He has history of lymphedema and has had edema and swelling chronically to the lower extremities. Started noticed increased weeping and redness 2 to 3 weeks ago. He is currently on his second round of outpatient antibiotics that is believed to be Augmentin. Patient has history of inclusion body myositis and has been taken liquid medicine. Patient was sent in by his primary care physician today for failed outpatient therapy and recommending admission for IV antibiotics. Patient states that he has significant generalized weakness and sometimes can walk with a 4 wheeled walker if he can lock his knees but he has been more fatigued and weak of late. He denies any fevers. He has had some intermittent chills. He denies chest pain or shortness of breath. [facility] Medical History Anemia CYST EXCISION RIGHT BREAST Hypertension Myositis Osteopenia Home Medications ?Medication ?Instructions ?Recorded ?Last Taken ?Type Cholecalciferol (Vitamin D3) 1,000 units PO DAILY 07/31/16 Unknown History multivitamin with folic acid 400 1 tab PO DAILY 07/31/16 Unknown History mcg tablet (Thera) cyanocobalamin (vitamin B-12) 1,000 mcg sublingual DAILY 12/04/17 Unknown History 1,000 mcg sublingual tablet Nitric Oxide 420 mg PO DAILY 12/04/18 Unknown History coenzyme Q10 50 mg chewable tablet 200 mg PO DAILY 12/04/18 Unknown History elderberry fruit 200 mg capsule 200 mg PO DAILY 12/17/22 Unknown History turmeric 400 mg capsule 400 mg PO DAILY 12/17/22 Unknown History amoxicillin 600 mg-potassium 7.3 ml PO BID 01/29/24 01/28/24 History clavulanate 42.9 mg/5 mL oral suspension lisinopril 5 mg tablet 10 mg PO DAILY 01/29/24 Unknown History Allergy/AdvReac Type Severity Reaction Status Date / Time bacitracin (From Neosporin AdvReac Mild Itching Verified 01/29/24 14:47 ([id number])) neomycin (From Neosporin AdvReac Mild Itching Verified 01/29/24 14:47 ([id number])) polymyxin B (From Neosporin AdvReac Mild Itching Verified 01/29/24 14:47 ([id number])) adhesive tape AdvReac Unknown Verified 01/29/24 14:47 Family History Father Colon cancer Mother Gastric cancer Surgical History History of cataract extraction Social History Smoking Status: Never smoker ROS ROS ED Review of Systems ROS Unobtainable: other Constitutional Constitutional ED: Reports lethargy; Denies chills, fever(s), sweats or weight loss Eyes Eyes: Denies blurry vision, change in vision or diplopia ENT ENT ED: Denies rhinorrhea or sore throat Cardiovascular Cardiovascular: Denies chest pain, orthopnea or racing heartbeat Respiratory/Chest Respiratory/Chest: Denies cough, dyspnea, dyspnea on exertion, orthopnea or sputum Gastrointestinal Gastrointestinal: Denies abdominal pain, diarrhea, nausea or vomiting Genitourinary Genitourinary ED: Denies dysuria, hematuria or urinary frequency Musculoskeletal Musculoskeletal: Denies arthralgias, back pain, myalgias or neck pain Integumentary Reports other Details: Lower extremity edema, cellulitis right lower extremity ; Denies abscess, Abrasions or rash Neurologic Neurologic: Denies headache(s) or weakness Psychiatric Psychiatric: Denies anxiety, depression or suicidal thoughts Endocrine Endocrinology: Denies polydipsia, polyphagia or polyuria Hematologic/Lymphatic Hematologic/Lymphatic: Denies easy bleeding, easy bruising or lymphadenopathy Allergic/Immunologic Allergic/Immunologic ED: Denies mouth swelling, tongue swelling or urticaria EXAM Physical Exam Const Vital Signs: 01/29/24 14:38 01/29/24 14:46 01/29/24 14:48 Temperature 97.9 F 97.9 F Temperature Source Oral Oral Pulse Rate 74 74 Respiratory Rate 18 16 Blood Pressure 149/55 H 174/66 H Blood Pressure Mean 86 102 Pulse Ox 97 98 Oxygen Delivery Method Room Air Room Air Positive well nourished and well developed General Appearance ED: well developed and NAD HEENT Reports TM's clear and moist mucous membranes normocephalic and atraumatic; Negative for trauma or tenderness Tympanic Membrane ED: Yes TM's clear Eyes PERRL and EOMs intact bilaterally General Eye ED: Negative for pale conjunctiva or scleral icterus Neck no lymphadenopathy, supple and no JVD General: Negative for tenderness Chest Wall inspection of chest normal and palpation of chest normal Chest: Negative for tenderness Resp normal respiratory effort and clear to auscultation bilaterally Effort and Inspection: Negative for respiratory distress or pain with movement Auscultation: Negative for rhonchi, wheezes or diminished lung sounds Cardio regular rate, regular rhythm, S1 normal heart sound, S2 normal heart sound and no murmurs Peripheral Pulses: pulses 2+ throughout GI normal to inspection, nondistended, normoactive bowel sounds, soft to palpation, non-tender, non-distended and no masses Back/Spine no CVA tenderness and no thoracic nor lumbar tenderness Extremity normal to inspection Extremity Narrative: Evaluation of the lower extremities does reveal the right lower extremity to be erythematous with weeping skin and cellulitic changes. Does have lymphedema both lower extremities. He is neurovascular intact. General Extremety ED: Negative for edema General Extremity: Negative for edema Neuro oriented x3, CN's II-XII intact bilaterally, no sensory deficits noted and gait normal Sensorium / Orientation: awake, alert, oriented to person, oriented to place and oriented to time Motor Exam: strength 5/5 throughout and strength abnormal Psych mental status grossly normal Skin no rashes or lesions noted and no wounds MDM MDM MDM Narrative Medical decision making narrative: Patient presents with cellulitis of his right lower extremity ongoing for weeks and failed outpatient therapy. IV line established. CBC with differential obtained showing a 7.0 with hemoglobin 12.8 and platelet count of 258. Chemistries unremarkable other than a slightly depressed sodium of 129. LFTs were normal. Lactate obtained was slightly elevated 2.2.. Patient started on Unasyn and vancomycin IV. Case discussed with hospitalist will evaluate patient for admission Lab Data Attestation: I reviewed the patient's lab results. Labs: Laboratory Results - last 24 hr 01/29/24 15:26 WBC 7.0 RBC 4.07 L Hgb 12.8 L Hct 38.0 L MCV 93.4 MCH 31.4 MCHC 33.7 RDW Std Deviation 41.0 RDW Coeff of Nils 11.9 Plt Count 258 MPV 9.6 Immature Gran % (Auto) 0.400 Neut % (Auto) 77.5 H Lymph % (Auto) 8.6 L [place] % (Auto) 12.3 H Eos % (Auto) 0.9 Baso % (Auto) 0.3 Absolute Neuts (auto) 5.4 Absolute Lymphs (auto) 0.60 L Nucleated RBC % 0 Sodium 129 L Potassium 4.4 Chloride 95 L Carbon Dioxide 28.0 Anion Gap 6 BUN 13 Creatinine 0.47 L Estim Creat Clear Calc 69.13 Est GFR (MDRD) Af Amer 217 Est GFR (MDRD) Non-Af 179 BUN/Creatinine Ratio 27.5 H Glucose 127 H Lactic Acid 2.2 H* Calcium 9.5 Total Bilirubin 0.40 AST 21 ALT 21 Alkaline Phosphatase 65 Total Protein 7.1 Albumin 3.3 Globulin 3.8 Albumin/Globulin Ratio 0.9 Discharge Plan Dx/Rx/DC Orders Clinical Impression: Cellulitis of leg, right, Acute hyponatremia, Weakness Disposition Disposition: Acute Care [facility]
[2024-01-29] MEDS: Ampicillin/Sulbactam 3 GM in 0.9% Normal Saline (100mL MB+) 100 ML IV ×2 (15:32→23:20)
[2024-01-29 15:47] LABS: Absolute Neutrophil Count 5.4 X10^3/uL (2.0-7.7); Basophil# 0.02 X10^3/uL; Basophil% 0.3 % (0-1); Eosinophil# 0.06 X10^3/uL; Eosinophils% 0.9 % (0-5); Hemoglobin 12.8 g/dL (13.0-16.5); Lymphocyte % 8.6 % (19-41); Mean Corp Hgb Conc 33.7 g/dL (32-36); Mean Corpuscular Hgb 31.4 pg (27.0-32.0); Mean Corpuscular Volume 93.4 fL (80-94); Mean Platelet Vol. 9.6 fl (6.2-12.0); Monocyte# 0.86 X10^3/uL; Monocyte% 12.3 % (0-10); NRBC Flagged by Analyzer 0 % (0-5); Neutrophil # 5.41 X10^3/uL (2.7-7.7); Neutrophil % 77.5 % (47-70); POSITIVE DIFFERENTIAL YES; Platelet Count 258 K/mm3 (150-450); RBC Distribution Width CV 11.9 % (11.6-14.6); Red Blood Count 4.07 M/mm3 (4.6-6.2)
[2024-01-29 15:57] LABS: Differential Indicated SCAN CRITERIA MET
[2024-01-29 16:00] LABS: ALB/GLOB Ratio 0.9 RATIO (0.9-2.4); AST(SGOT) 21 U/L (15-37); Alanine Aminotransfer ALT/SGPT 21 U/L (16-61); Albumin, Serum 3.3 g/dL (3.2-5.0); Alkaline Phosphatase 65 U/L (45-117); Anion Gap 6 (5-15); BUN 13 mg/dL (7-18); BUN/Creat Ratio 27.5 RATIO (10-20); Calcium,Total 9.5 mg/dL (8.5-10.1); Chloride 95 mmol/L (98-107); Creatinine, Serum 0.47 mg/dL (0.70-1.30); EST Glomerular Filtration Rate 179 mL/min (>60); Est Glom Filt Rate - Afr Amer 217 mL/min (>60); Estimated Creatinine Clearance 69.13 ml/min; Globulin 3.8 g/dL (2.2-4.2); Glucose 127 mg/dL (74-106); Potassium 4.4 mmol/L (3.5-5.1); Protein, Total 7.1 g/dL (6.4-8.2); Sodium Level 129 mmol/L (136-145)
[2024-01-29] MEDS: Vancomycin IV 1,000 MG/200 ML BAG 167 MG IV (16:11)
[2024-01-29 16:25] LABS: Lactic Acid 2.2 mmol/L (0.4-1.9)
[2024-01-29 16:30] LABS: BNP,B-Type NATRIURETIC PEPTIDE 19.1 pg/mL (0-100)
--- NOTE | 2024-01-29 16:35 | HP.PCM.HOS_ITS ---
[facility] - General General Date of Service: 01/29/24 Chief Complaint: Increasing right lower extremity erythema and failure of outpatient antibiotics HPI Narrative JEANIE LANDRY, is a 83-year-old male history of lymphedema, inclusion body myositis, and hypertension presented to [facility] ED 01/29/2024 with increasing cellulitis of right lower extremity. Has history of lymphedema has had edema and swelling chronically in lower extremities but has noticed some increased weeping and redness for 2 to 3 weeks. Patient has been on 2 rounds of Augmentin but is not improving so PCP sent him in today for failed outpatient management and requested admission for IV antibiotics. In the ED sodium 129, blood pressure 174/66 but otherwise lab workup and vitals fairly unremarkable. Patient given a dose of IV antibiotics and hospitalist contacted for admission. Patient evaluated at bedside patient reports he has had the swelling in his legs for years with intermittent erythema however this specific infection started 2 weeks ago with a patch on the back of his leg and has progressively wrapped around despite Augmentin on an outpatient basis. Had virtual appointment with his PCP today who sent him into the hospital as it is continued to worsen despite outpatient antibiotics. Patient reports he is always cold but denies any known fevers. Leg is red and weeping more so than left and keeps it wrapped and usually uses Yogesh wrap's but has been more hesitant to do so given the acute infection. Patient reports weight loss over the past 4 years due to his inclusion body myositis and has been feeling somewhat depressed because of that. Does note that he has been somewhat dehydrated with dark urine in the mornings and has had some loose stools accompanying his antibiotics but no abdominal pain or nausea. [facility], [facility] Medical History Anemia CYST EXCISION RIGHT BREAST Hypertension Myositis Osteopenia Home Medications ?Medication ?Instructions ?Recorded ?Last Taken ?Type Cholecalciferol (Vitamin D3) 1,000 units PO DAILY 07/31/16 Unknown History multivitamin with folic acid 400 1 tab PO DAILY 07/31/16 Unknown History mcg tablet (Thera) cyanocobalamin (vitamin B-12) 1,000 mcg sublingual DAILY 12/04/17 Unknown History 1,000 mcg sublingual tablet Nitric Oxide 420 mg PO DAILY 12/04/18 Unknown History coenzyme Q10 50 mg chewable tablet 200 mg PO DAILY 12/04/18 Unknown History elderberry fruit 200 mg capsule 200 mg PO DAILY 12/17/22 Unknown History turmeric 400 mg capsule 400 mg PO DAILY 12/17/22 Unknown History amoxicillin 600 mg-potassium 7.3 ml PO BID 01/29/24 01/28/24 History clavulanate 42.9 mg/5 mL oral suspension lisinopril 5 mg tablet 10 mg PO DAILY 01/29/24 Unknown History Allergy/AdvReac Type Severity Reaction Status Date / Time bacitracin (From Neosporin AdvReac Mild Itching Verified 01/29/24 14:47 ([id number])) neomycin (From Neosporin AdvReac Mild Itching Verified 01/29/24 14:47 ([id number])) polymyxin B (From Neosporin AdvReac Mild Itching Verified 01/29/24 14:47 ([id number])) adhesive tape AdvReac Unknown Verified 01/29/24 14:47 Family History Father Colon cancer Mother Gastric cancer Surgical History History of cataract extraction Social History Smoking Status: Never smoker ROS ROS Narrative General: Denies fever, does stay cold HENT: Denies headache, denies stuffy nose, denies sore throat EYES: Denies changes in vision Resp: Denies cough, denies shortness of breath Cardiac: Denies chest pain GI: Denies abdominal pain, has had some loose stool with his antibiotic, denies nausea/vomiting : Has been feeling little dehydrated Extremity: Bilateral lower extremity edema MSK: Some diffuse weakness Neuro: Denies any numbness/tingling Heme: Denies any bleeding or bruising Skin: Increasing erythema and weeping of right lower extremity Psychiatric: Feels somewhat down with his diagnosis of myositis Vital Signs Vital Signs Vital Signs: 01/29/24 14:38 01/29/24 14:46 01/29/24 14:48 Temperature 97.9 F 97.9 F Temperature Source Oral Oral Pulse Rate 74 74 Respiratory Rate 18 16 Blood Pressure 149/55 H 174/66 H Blood Pressure Mean 86 102 Pulse Ox 97 98 Oxygen Delivery Method Room Air Room Air Weight Weight: 72.4 kg Body Mass Index (BMI) 22.8 Physical Exam Narrative General: Alert, oriented, HEENT: Atraumatic, normocephalic Eyes: Anicteric, normal conjunctiva, extraocular movements grossly intact Neck: Supple Respiratory: Clear to auscultation bilaterally, normal respiratory effort Cardiovascular: Regular rate and rhythm GI: Soft, nontender, nondistended Extremities: Bilateral lower extremity nonpitting edema Musculoskeletal: Moving all extremities Neuro: No overt focal neurological deficits Skin: Chronic skin changes on bilateral lower extremities but erythema RLE > left, patchy areas with skin sloughing, slight weeping, no purulence Psych: Cooperative, tearful at times Results Lab / Micro Data 01/29/24 15:26 01/29/24 15:26 Labs: Laboratory Results - last 24 hr 01/29/24 15:26: WBC 7.0, RBC 4.07 L, Hgb 12.8 L, Hct 38.0 L, MCV 93.4, MCH 31.4, MCHC 33.7, RDW Std Deviation 41.0, RDW Coeff of Nils 11.9, Plt Count 258, MPV 9.6, Immature Gran % (Auto) 0.400, Neut % (Auto) 77.5 H, Lymph % (Auto) 8.6 L, M sonali % (Auto) 12.3 H, Eos % (Auto) 0.9, Baso % (Auto) 0.3, Absolute Neuts (auto) 5.4, Absolute Lymphs (auto) 0.60 L, Nucleated RBC % 0, Sodium 129 L, Potassium 4.4, Chloride 95 L, Carbon Dioxide 28.0, Anion Gap 6, BUN 13, Creatinine 0.47 L, Estim Creat Clear Calc 69.13, Est GFR (MDRD) Af Amer 217, Est GFR (MDRD) Non-Af 179, BUN/Creatinine Ratio 27.5 H, Glucose 127 H, Lactic Acid 2.2 H*, Calcium 9.5, Total Bilirubin 0.40, AST 21, ALT 21, Alkaline Phosphatase 65, B- Natriuretic Peptide 19.1, Total Protein 7.1, Albumin 3.3, Globulin 3.8, Albumin/Globulin Ratio 0.9 Assessment & Plan Assessment/Plan (1) Cellulitis of leg, right: PLAN: Plan # Right lower extremity erythema, concern for cellulitis failed outpatient management -Failed outpatient oral antibiotics -Continue IV antibiotics with Unasyn, no purulence so will hold of on further vancomycin at this time -Elevate extremity -Wound care nurse consult # Hyponatremia -Unclear etiology, sodium 129, last value in November was 135 -Patient does report he has been somewhat dehydrated and given slightly poor p.o. intake with a little bit of diarrhea from his Augmentin suspect that is the case. If loose stools persist or worsen may need to consider stool studies or further evaluation presently symptoms are not significant -Will gently hydrate with IV fluids -Will check serum and urine osmole's, urine lites, and repeat BMP #Generalized weakness -Suspect d/t underlying infection versus hyponatremia or combination of both -Hyponatremia as above -Continue IV abx -PT/OT -CM/SW c/slts #BLE lymphedema -Elevate extremities -Wound nurse c/s, ultimately will benefit from resuming yogesh wraps # Hypertension -Continue home lisinopril, patient has persistently elevated blood pressure, will likely need to uptitrate with time if hypertension persists -As needed hydralazine # History of inclusion body myositis -For history, noted -Will need to continue outpatient follow-up #DVT ppx: Lovenox subcu Lacy Hernandez MD Charges/Coding Visit Charges Inpatient E&M: 41194 Init Hosp L2
--- NOTE | 2024-01-29 16:35 | NURSING ---
MED SURG [facility] CELLULITIS RT LEG, FAILED OUTPATIENT THEREPY, HYPONATREMIA, WEAKNESS
[2024-01-29] MEDS: 0.9% Normal Saline (1000mL) 1,000 ML 50 ML IV (17:49)
[2024-01-29 18:19] LABS: Creatinine, Urine (random) < 13.00 mg/dL (NO RANGE EST.); Urea Nitrogen, Urine 142 mg/dL (NO RANGE EST.); Urine Sodium 34 mmol/L (Not Establ.)
[2024-01-29 19:32] LABS: Reflex Lactate? Y
[2024-01-29 19:48] LABS: Urine Chloride 25 mmol/L (Not Establ.); Urine Potassium 5.9 mmol/L (Not Establ.)
[2024-01-29 19:50] LABS: Osmolality, Urine 131 mOsm/KG
[2024-01-29 19:51] LABS: Osmolality, Serum 277 mOsm/KG (280-301)
[2024-01-29 20:49] LABS: Lactic Acid 1.8 mmol/L (0.4-1.9)
[2024-01-29 22:03] LABS: Anion Gap 3 (5-15); BUN 10 mg/dL (7-18); BUN/Creat Ratio 29.5 RATIO (10-20); Calcium,Total 8.9 mg/dL (8.5-10.1); Chloride 101 mmol/L (98-107); Creatinine, Serum 0.34 mg/dL (0.70-1.30); EST Glomerular Filtration Rate 263 mL/min (>60); Est Glom Filt Rate - Afr Amer 318 mL/min (>60); Estimated Creatinine Clearance 63.12 ml/min; Glucose 127 mg/dL (74-106); Potassium 4.3 mmol/L (3.5-5.1); Sodium Level 133 mmol/L (136-145)
[2024-01-30 05:15] VITALS: BP 136/58; PULSE 74; RESP 18; TEMP 36.8; O2SAT 98
[2024-01-30] MEDS: Ampicillin/Sulbactam 3 GM in 0.9% Normal Saline (100mL MB+) 100 ML IV (05:15)
[2024-01-30 07:04] LABS: Absolute Lymphocyte Count 1.18 X10^3/uL (0.83-4.51); Absolute Neutrophil Count 4.3 X10^3/uL (2.0-7.7); Basophil# 0.02 X10^3/uL; Basophil% 0.3 % (0-1); Eosinophils% 1.5 % (0-5); Hematocrit 31.8 % (40-54); Hemoglobin 10.7 g/dL (13.0-16.5); Lymphocyte # 1.18 X10^3/ul (0.83-4.51); Lymphocyte % 17.5 % (19-41); Mean Corp Hgb Conc 33.6 g/dL (32-36); Mean Corpuscular Hgb 31.5 pg (27.0-32.0); Mean Corpuscular Volume 93.5 fL (80-94); Mean Platelet Vol. 9.7 fl (6.2-12.0); Monocyte% 16.3 % (0-10); NRBC Flagged by Analyzer 0 % (0-5); Neutrophil # 4.32 X10^3/uL (2.7-7.7); Platelet Count 231 K/mm3 (150-450); RBC Distribution Width CV 11.9 % (11.6-14.6); RBC Distribution Width SD 40.7 fl (35.1-43.9); White Blood Count 6.8 K/mm3 (4.4-11.0)
[2024-01-30 07:21] LABS: Anion Gap 5 (5-15); BUN 7 mg/dL (7-18); BUN/Creat Ratio 30.2 RATIO (10-20); Calcium,Total 8.6 mg/dL (8.5-10.1); Chloride 103 mmol/L (98-107); Creatinine, Serum 0.23 mg/dL (0.70-1.30); EST Glomerular Filtration Rate 407 mL/min (>60); Est Glom Filt Rate - Afr Amer 493 mL/min (>60); Estimated Creatinine Clearance 63.12 ml/min; Glucose 100 mg/dL (74-106); Magnesium 1.9 mg/dL (1.6-2.6); Sodium Level 134 mmol/L (136-145)
--- NOTE | 2024-01-30 08:09 | PN.HOSP_ITS ---
Reason for Visit Reason for Visit: Diagnoses Cellulitis of right lower limb (01/29/24) Subjective Subjective Weaping RLE. Has been weaping more lately. DW wound care and it smelled like pseudomonas Objective Data Objective Data Vital Signs: Vital Signs Temp Pulse Resp BP Pulse Ox O2 Del Method 36.8 C 74 18 136/58 H 98 Room Air 01/30/24 05:15 01/30/24 05:15 01/30/24 05:15 01/30/24 05:15 01/30/24 05:15 01/30/24 05:15 Oxygen Delivery Method Room Air Weight: 72.121 kg Body Mass Index (BMI) 24.9 Intake & Output: Intake and Output for Last 24 Hours 01/28/24 01/29/24 01/30/24 23:59 23:59 23:59 Intake Total 312 / 312 224 / 224 Output Total 700 / 700 100 / 100 Balance -388 / -388 124 / 124 Lab / Micro Data 01/30/24 05:50 01/30/24 05:50 Labs: Laboratory Results - last 24 hr 01/29/24 15:26: WBC 7.0, RBC 4.07 L, Hgb 12.8 L, Hct 38.0 L, MCV 93.4, MCH 31.4, MCHC 33.7, RDW Std Deviation 41.0, RDW Coeff of Nils 11.9, Plt Count 258, MPV 9.6, Immature Gran % (Auto) 0.400, Neut % (Auto) 77.5 H, Lymph % (Auto) 8.6 L, M sonali % (Auto) 12.3 H, Eos % (Auto) 0.9, Baso % (Auto) 0.3, Absolute Neuts (auto) 5.4, Absolute Lymphs (auto) 0.60 L, Nucleated RBC % 0, Sodium 129 L, Potassium 4.4, Chloride 95 L, Carbon Dioxide 28.0, Anion Gap 6, BUN 13, Creatinine 0.47 L, Estim Creat Clear Calc 69.13, Est GFR (MDRD) Af Amer 217, Est GFR (MDRD) Non-Af 179, BUN/Creatinine Ratio 27.5 H, Glucose 127 H, Lactic Acid 2.2 H*, Calcium 9.5, Total Bilirubin 0.40, AST 21, ALT 21, Alkaline Phosphatase 65, B- Natriuretic Peptide 19.1, Total Protein 7.1, Albumin 3.3, Globulin 3.8, Albumin/Globulin Ratio 0.9 01/29/24 17:50: Urine Osmolality 131, Ur Random Sodium 34, Urine Creatinine < 13.00, Urine Potassium 5.9, Urine Chloride 25, Urine Urea Nitrogen 142 01/29/24 18:30: Serum Osmolality 277 L 01/29/24 20:11: Lactic Acid 1.8 01/29/24 21:25: Sodium 133 L, Potassium 4.3, Chloride 101, Carbon Dioxide 29.0, Anion Gap 3 L, BUN 10, Creatinine 0.34 L, Estim Creat Clear Calc 63.12, Est GFR (MDRD) Af Amer 318, Est GFR (MDRD) Non-Af 263, BUN/Creatinine Ratio 29.5 H, G lucose 127 H, Calcium 8.9 01/30/24 05:50: WBC 6.8, RBC 3.40 L, Hgb 10.7 L, Hct 31.8 L, MCV 93.5, MCH 31.5, MCHC 33.6, RDW Std Deviation 40.7, RDW Coeff of Nils 11.9, Plt Count 231, MPV 9.7, Immature Gran % (Auto) 0.400, Neut % (Auto) 64.0, Lymph % (Auto) 17.5 L, M sonali % (Auto) 16.3 H, Eos % (Auto) 1.5, Baso % (Auto) 0.3, Absolute Neuts (auto) 4.3, Absolute Lymphs (auto) 1.18, Nucleated RBC % 0, Sodium 134 L, Potassium 4.0, Chloride 103, Carbon Dioxide 26.0, Anion Gap 5, BUN 7, Creatinine 0.23 L, Estim Creat Clear Calc 63.12, Est GFR (MDRD) Af Amer 493, Est GFR (MDRD) Non-Af 407, BUN/Creatinine Ratio 30.2 H, Glucose 100, Calcium 8.6, Magnesium 1.9 Physical Exam Const alert and no apparent distress HEENT head/scalp atraumatic and moist oral mucous membranes Resp normal respiratory effort and no retractions Cardio S2 normal heart sound Extremity Extremity Narrative: marked LE weeping on the right. dry on the left. Neuro Sensorium / Orientation: awake and alert Assessment & Plan Assessment/Plan (1) Cellulitis of leg, right: PLAN: Plan Right lower extremity cellulitis * failed outpatient management with augmentin. Wound PCR showing MRSA and staph. Wound and BCx pending. Legs themselves appear to be unremarkable although discussing with the wound care, is concerning for an odor that may be consistent with Pseudomonas. Patient was initially started on Unasyn. Fact that he did not get any better with the Augmentin this would be more or less a lateral move in regards to antibiotics and would treat more aggressively at this point in time though not really sure that this is truly infected. * started on amp/SB in the hospital. * elevate leg. * I feel patient would require better compression upon going home, patient states that he is try compression stockings in the past but, given his inclusion body myositis, he did not have the strength to do so nor does his have a strength in order to put those on. He expressed interest in using Yogesh wrap's. Hyponatremia * improved with IVF Generalized weakness * Suspect d/t underlying infection versus hyponatremia or combination of both * PT OT eval and treat Chronic conditions: * Hypertension-Continue home lisinopril, patient has persistently elevated blood pressure, will likely need to uptitrate with time if hypertension persists-As needed hydralazine * History of inclusion body myositis-For history, noted-Will need to continue outpatient follow-up VTE prophylaxis: LMWH. Charges/Coding Visit Charges Inpatient E&M: 42150 Subs Hosp L2
[2024-01-30 08:22] VITALS: BP 143/63; PULSE 67; RESP 18; TEMP 36.9; O2SAT 98
[2024-01-30] MEDS: Lisinopril 10 MG Tablet PO (10:15)
[2024-01-30] MEDS: Enoxaparin 40 MG/0.4 ML Syringe SC (10:17)
[2024-01-30 10:43] LABS: M R Staph aureus DNA By PCR POSITIVE (Negative); Staph aureus DNA By PCR POSITIVE (Negative)
[2024-01-30 10:45] LABS: Probe Check PASS
--- NOTE | 2024-01-30 10:46 | WOUNDNOTE ---
wound photo: right lower leg
--- NOTE | 2024-01-30 10:46 | WOUNDNOTE ---
wound photo: right lower leg
--- NOTE | 2024-01-30 10:47 | WOUNDNOTE ---
wound photo: right posterior lower leg
--- NOTE | 2024-01-30 10:58 | NURSING ---
Pt's bringing in own protein supplement from home.
--- NOTE | 2024-01-30 11:00 | CASEMGMT ---
PRASANTH HOPKINS Assessment: Face to Face with pt for initial transition planning/care coordination assessment. PRASANTH HOPKINS introduced self and role at [facility], pt voices understanding and consents to assessment. Pt is A&O x4 and answers all questions appropriately at this time. Pt lying in bed in no distress. Pt family in room, pt agreeable to answering questions with family present. Pt tearful several times throughout conversation. Care providers, pharmacy, and demographics verified/updated. Strata: 2 Admitting Dx: Cellulitis R leg PCP: Efrain Specialists: Denies Preferred Pharmacy: [facility] Insurance: [facility], [employer] Prescription Benefit: yes LNOK: Jeni, . Living Arrangements: Pt lives with in a 1 story home with zero stairs to enter and a finished basement. Pt reports basement is set up for bathroom and living needs. Uses stair lift to go up and down steps. ADLs: Pt needs assistance, helps with bathing and dressing changes. indicates getting increasingly difficult for her to care for pt. Transportation: Pt home bound. Dr. Zuniga comes to pt home for appointments. Pt reports will need squad to transport home. DME: stair lift, chair lifts, walker. HHC/SNF: Denies SNF, States Dr. Zuniga has ordered nursing to come in the past but does not recall what agency. Pt states no further concerns/needs. SW or CM to follow. Advised pt to ask CM if any further question/concerns/needs arise, voices understanding. Pt Goal: TBD Plan: TBD,PRASANTH HOPKINS discussed SNF, HHC and Palliative care options with the family. Follow therapy and wound nurse for plan of care. Bandar RADER CM
--- NOTE | 2024-01-30 12:25 | CASEMGMT ---
Social Work Pt confirms he has completed a living will and health care POA naming , Jeni.? Pt notified that documents are not on file at [facility] and SW requested they be brought in for scanning into the EMR.? MICAH Chambers
[2024-01-30] MEDS: 0.9% Saline Lock 10 ML Syringe IV ×4 (12:33→23:12)
--- NOTE | 2024-01-30 14:51 | CHAPLAIN ---
Type of Pastoral Visit _x__ Initial Visit ___ Follow-up Visit ___ On-call Visit ___ General Patient Visit ___ Spiritual Assessment ___ Family Conference ___ Bereavement ___ Rapid Response ___ Code Blue ___ Other (describe below) Pastoral Care Referral From _x__ Patient ___ Family ___ Nurse ___ Physician ___ Principal Investigator ___ Nurse Administrator ___ Other (describe below) Sacrament/Intervention _x__ Active listening ___ Anointing ___ Catholic ___ Bereavement ___ Communion _x__ Yarely exploration ___ _x__ Life review _x__ Prayer ___ Reconciliation ___ Sacrament of Sick _x__ Supportive presence ___ Wedding ___ Other (describe below) Pastoral Comments patient describes his current situation and reason for admission but then goes into longer story of his life long illness and rare disease; pt is given time to tell his story and how he continues to hope and how he is able to cope; pt believes that he has contributed to life of others and to society; pt has family support and has remained faithful to his Sikhism yarely; pt welcomes prayers and presence today; pt concern is for going home and for the condition of the world
[2024-01-30 15:50] VITALS: BP 135/48; PULSE 67; RESP 15; TEMP 37.4; O2SAT 95
[2024-01-30] MEDS: Vancomycin IV 1,000 MG/200 ML BAG 200 MG IV (16:01)
[2024-01-30] MEDS: 0.9% Normal Saline (250mL Bag) 250 ML 15 ML IV ×2 (16:02→16:59)
--- NOTE | 2024-01-30 16:18 | NURSING ---
Therapy at bedside, will try for a second IV line and hang zosyn when therapy is done working with patient.
[2024-01-30 16:28] VITALS: O2SAT 95
--- NOTE | 2024-01-30 16:31 | PCM.RX.CS ---
Consult Antibiotic Management Pharmacy has been consulted to manage selected antibiotic: Vancomycin Type of Intervention Type of Consult: New start Suspected Infection Suspected Infection: Skin/Soft tissue Prior Doses of Antibiotics Prior Doses of Antibiotics Received/Current Regimen: the patient received a dose of vanc 1000mg IV x1 in E.R. yesterday at 16:11 Labs Labs: Sodium 134 mmol/L (136-145) L 01/30/24 05:50 Potassium 4.0 mmol/L (3.5-5.1) 01/30/24 05:50 Chloride 103 mmol/L (98-107) 01/30/24 05:50 Carbon Dioxide 26.0 mmol/L (21.0-32.0) 01/30/24 05:50 Anion Gap 5 (5-15) 01/30/24 05:50 BUN 7 mg/dL (7-18) 01/30/24 05:50 Creatinine 0.23 mg/dL (0.70-1.30) L 01/30/24 05:50 Est GFR (MDRD) Af Amer 493 mL/min (>60) 01/30/24 05:50 Est GFR (MDRD) Non-Af 407 mL/min (>60) 01/30/24 05:50 BUN/Creatinine Ratio 30.2 RATIO (10-20) H 01/30/24 05:50 Glucose 100 mg/dL (74-106) 01/30/24 05:50 Microbiology Microbiology: Microbiology 01/30/24 08:30 Wound - Leg, Right Gram Stain - Final Dosing Weight Weight used for dosin kg Goal Trough Goal Trough: 15-20 mcg/mL Pharmacy Plan for Drug Dosing Pharmacy Plan for Drug Dosing: Since the patient received a dose of vanc 24 hours ago in E.R., the initial dose was changed from load to standard. So the patient will get another dose of 1000mg IV x1 now, then continue with 750mg IV q12h per [facility] dosing protocol. Will check a trough before the 3rd dose of the 750mg. Pharmacy Service will continue to monitor and adjust dosing as required. Follow-Up Labs Follow-Up Labs: Trough: Vancomycin Date/Time Labs Ordered Labs to be done on [date and time ordered]: 02/01/24 03:30
[2024-01-30] MEDS: Piperacil/Tazobactam 3.375 GM in 0.9% Normal Saline (50mL MB+) 50 ML IV ×2 (17:00→21:15)
[2024-01-30 19:18] VITALS: O2SAT 95
[2024-01-30 21:06] VITALS: BP 135/52; PULSE 68; RESP 18; TEMP 37.5; O2SAT 96
[2024-01-30] MEDS: Acetaminophen 325 MG Tablet 650 MG PO (21:12)
[2024-01-30] MEDS: Menthol/Lanolin/Calamine/Znox 113 GM Tube 1 APPLIC TOPICAL (21:13)
[2024-01-30] MEDS: oxyCODONE 5 MG Tablet PO (23:11)
[2024-01-30] MEDS: MELATONIN 3 MG TABLET PO (23:12)
[2024-01-31] VITALS (7 sets, daily range): BP systolic 110–136; BP diastolic 44–74; PULSE 56–75; RESP 15–20; TEMP 36.8–37.3; O2SAT 95–98
[2024-01-31] MEDS: Vancomycin HCl 750 MG in 0.9% Normal Saline (250mL Bag) 250 ML 250 MG IV ×2 (04:41→16:38)
[2024-01-31] MEDS: Piperacil/Tazobactam 3.375 GM in 0.9% Normal Saline (50mL MB+) 50 ML IV ×3 (05:00→22:43)
[2024-01-31 06:38] LABS: Absolute Lymphocyte Count 1.32 X10^3/uL (0.83-4.51); Absolute Neutrophil Count 4.7 X10^3/uL (2.0-7.7); Basophil# 0.03 X10^3/uL; Basophil% 0.4 % (0-1); Eosinophil# 0.14 X10^3/uL; Eosinophils% 1.9 % (0-5); Hematocrit 33.1 % (40-54); Hemoglobin 11.1 g/dL (13.0-16.5); Lymphocyte # 1.32 X10^3/ul (0.83-4.51); Mean Corp Hgb Conc 33.5 g/dL (32-36); Mean Corpuscular Hgb 31.8 pg (27.0-32.0); Mean Corpuscular Volume 94.8 fL (80-94); Mean Platelet Vol. 9.4 fl (6.2-12.0); Monocyte# 1.15 X10^3/uL; Monocyte% 15.7 % (0-10); NRBC Flagged by Analyzer 0 % (0-5); Neutrophil # 4.65 X10^3/uL (2.7-7.7); Neutrophil % 63.6 % (47-70); Platelet Count 216 K/mm3 (150-450); RBC Distribution Width CV 11.9 % (11.6-14.6); Red Blood Count 3.49 M/mm3 (4.6-6.2); White Blood Count 7.3 K/mm3 (4.4-11.0)
[2024-01-31 07:03] LABS: Anion Gap 6 (5-15); BUN 9 mg/dL (7-18); BUN/Creat Ratio 29.9 RATIO (10-20); Calcium,Total 8.4 mg/dL (8.5-10.1); Chloride 104 mmol/L (98-107); EST Glomerular Filtration Rate 301 mL/min (>60); Est Glom Filt Rate - Afr Amer 365 mL/min (>60); Estimated Creatinine Clearance 63.12 ml/min; Glucose 87 mg/dL (74-106); Sodium Level 134 mmol/L (136-145)
--- NOTE | 2024-01-31 07:51 | PCM.PN.HOSP ---
Reason for Visit Reason for Visit: Diagnoses Cellulitis of right lower limb (01/29/24) Subjective Subjective Have some burning in his foot that is been off and on for past several weeks. Had it worsened over the night. Objective Data Objective Data Vital Signs: Vital Signs Temp Pulse Resp BP Pulse Ox O2 Del Method 37.0 C 75 20 H 132/74 H 98 Room Air 01/31/24 04:58 01/31/24 04:58 01/31/24 04:58 01/31/24 04:58 01/31/24 04:58 01/31/24 04:58 Oxygen Delivery Method Room Air Weight: 72.121 kg Body Mass Index (BMI) 24.9 Intake & Output: Intake and Output for Last 24 Hours 01/29/24 01/30/24 01/31/24 23:59 23:59 23:59 Intake Total 312 / 312 1411.0 / 1911.0 815 / 815 Output Total 700 / 700 800 / 1750 950 / 950 Balance -388 / -388 611.0 / 161.0 -135 / -135 Lab / Micro Data 01/31/24 05:55 01/31/24 05:55 Labs: Laboratory Results - last 24 hr 01/30/24 08:30: S.aureus Protein A PCR POSITIVE H, MRSA (PCR) POSITIVE H 01/31/24 05:55: WBC 7.3, RBC 3.49 L, Hgb 11.1 L, Hct 33.1 L, MCV 94.8 H, MCH 31.8, MCHC 33.5, RDW Std Deviation 41.0, RDW Coeff of Nils 11.9, Plt Count 216, MPV 9.4, Immature Gran % (Auto) 0.400, Neut % (Auto) 63.6, Lymph % (Auto) 18.0 L, [place] % (Auto) 15.7 H, Eos % (Auto) 1.9, Baso % (Auto) 0.4, Absolute Neuts (auto) 4.7, Absolute Lymphs (auto) 1.32, Nucleated RBC % 0, Sodium 134 L, Potassium 4.0, Chloride 104, Carbon Dioxide 24.0, Anion Gap 6, BUN 9, Creatinine 0.30 L, Estim Creat Clear Calc 63.12, Est GFR (MDRD) Af Amer 365, Est GFR (MDRD) Non-Af 301, BUN/Creatinine Ratio 29.9 H, Glucose 87, Calcium 8.4 L Micro: Microbiology 01/29/24 15:26 Blood Culture (Wb) - Left Wrist Blood Culture - Preliminary No growth in 48 hours. 01/30/24 08:30 Wound - Leg, Right Gram Stain - Final Physical Exam Const Constitutional Narrative: cachectic. HEENT head/scalp atraumatic and moist oral mucous membranes Resp normal respiratory effort and no retractions Extremity Extremity Narrative: Legs wrapped, did not remove Assessment & Plan Assessment/Plan (1) Cellulitis of leg, right: PLAN: Plan Right lower extremity cellulitis failed outpatient management with augmentin. Wound PCR showing MRSA and staph. Wound and BCx pending. Legs themselves appear to be unremarkable although discussing with the wound care, is concerning for an odor that may be consistent with Pseudomonas. Patient was initially started on Unasyn. Fact that he did not get any better with the Augmentin this would be more or less a lateral move in regards to antibiotics and would treat more aggressively at this point in time though not really sure that this is truly infected. I feel patient would require better compression upon going home, patient states that he is try compression stockings in the past but, given his inclusion body myositis, he did not have the strength to do so nor does his have a strength in order to put those on. He expressed interest in using Yogesh wrap's. Discussed with the wound care nurse where there was an odor of that was similar to what but found with Pseudomonas. Patient also did have a positive MRSA swab. The patient subsequent started on pip-tazo and vancomycin. 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 Charges/Coding Visit Charges Inpatient E&M: 31478 Subs Hosp L2
[2024-01-31] MEDS: 0.9% Saline Lock 10 ML Syringe IV ×2 (09:14→13:54)
[2024-01-31] MEDS: Menthol/Lanolin/Calamine/Znox 113 GM Tube 1 APPLIC TOPICAL ×2 (09:51→22:43)
[2024-01-31] MEDS: Lisinopril 10 MG Tablet PO (09:51)
[2024-01-31] MEDS: Enoxaparin 40 MG/0.4 ML Syringe SC (09:51)
--- NOTE | 2024-01-31 10:57 | CASEMGMT ---
PRASANTH CM into pt room to discuss DC plan. Pt states his is bringing in his walker from home and pt agreeable to therapy this afternoon. Pt states he would like to go home if possible, but agreeable to SNF if he does not do well with therapy today. Will follow therapy recommendations and follow up with pt.
--- NOTE | 2024-01-31 16:05 | CASEMGMT ---
Social Work- SW met with pt and pt to discuss preferences at d/c. Pt provided printed materials and verbally shared information on diagnosis. PT spoke at length about the modifications and special equipment that pt has obtained for in his home to help adapt to physical limitations. Pt reports that the vertical lifts that he has at home were made to lift to a precise angle to allow pt to stand and lock knees to ambulate. Pt reports that he has a toilet lift seat to accomplish this as well. Pt reports the feet between the chairs and the bathroom, as well as to pt desk have been measured to allow pt to ambulate between places. Pt reports that he has a vertical lift desk chair that was made in [facility] as well. Pt reports that he works with the [facility] for advocacy and also formulating a plan to utilize AI to find the DNA that causes his dx. Pt and both report that if pt does not have IV or complex wound dressings, that pt will d/c home with no HHC. PT reports that he utilizes his own methods and prefers to use those and work on his own timeline for therapy. Pt reports that if pt has IV or complex wound dressings, then she will need assistance via HHC. Pt questioned palliative. SW provided education and discussion on palliative services, as well as providing printed materials. Pt has a private duty home health list. Pt declines any other needs. SW will remain available to follow for any d/c needs. MICAH Chambers
[2024-01-31] MEDS: CETIRIZINE HCL 10 MG TABLET PO (16:38)
[2024-02-01 04:36] LABS: Anion Gap 5 (5-15); BUN 7 mg/dL (7-18); Calcium,Total 8.6 mg/dL (8.5-10.1); Chloride 102 mmol/L (98-107); Creatinine, Serum 0.26 mg/dL (0.70-1.30); EST Glomerular Filtration Rate 359 mL/min (>60); Est Glom Filt Rate - Afr Amer 434 mL/min (>60); Estimated Creatinine Clearance 63.12 ml/min; Glucose 89 mg/dL (74-106); Potassium 3.8 mmol/L (3.5-5.1); Sodium Level 134 mmol/L (136-145)
[2024-02-01 04:38] LABS: Vancomycin, Trough Level 8.9 ug/mL (5.0-15.0)
--- NOTE | 2024-02-01 04:54 | PCM.RX.CS ---
Consult Antibiotic Management Pharmacy has been consulted to manage selected antibiotic: Vancomycin Type of Intervention Type of Consult: Follow-up Suspected Infection Suspected Infection: Skin/Soft tissue Labs Labs: Sodium 134 mmol/L (136-145) L 02/01/24 03:26 Potassium 3.8 mmol/L (3.5-5.1) 02/01/24 03:26 Chloride 102 mmol/L (98-107) 02/01/24 03:26 Carbon Dioxide 27.0 mmol/L (21.0-32.0) 02/01/24 03:26 Anion Gap 5 (5-15) 02/01/24 03:26 BUN 7 mg/dL (7-18) 02/01/24 03:26 Creatinine 0.26 mg/dL (0.70-1.30) L 02/01/24 03:26 Est GFR (MDRD) Af Amer 434 mL/min (>60) 02/01/24 03:26 Est GFR (MDRD) Non-Af 359 mL/min (>60) 02/01/24 03:26 BUN/Creatinine Ratio 27.0 RATIO (10-20) H 02/01/24 03:26 Glucose 89 mg/dL (74-106) 02/01/24 03:26 Vancomycin Trough 8.9 ug/mL (5.0-15.0) 02/01/24 03:26 Microbiology Microbiology: Microbiology 01/30/24 08:30 Wound - Leg, Right Gram Stain - Final 01/30/24 08:30 Wound - Leg, Right Wound Culture - Preliminary GNR Poss Pseudomonas sp Gram negative jj 01/29/24 15:26 Blood Culture (Wb) - Left Wrist Blood Culture - Preliminary No growth in 48 hours. Dosing Weight Weight used for dosin kg Estimated Creatinine Clearance Estimated Creatinine Clearance: 84 Goal Trough Goal Trough: 15-20 mcg/mL Pharmacy Plan for Drug Dosing Pharmacy Plan for Drug Dosing: Vancomycin trough level of 8.9, drawn 11hrs post-dose, was below the target range of 15-20. Will increase dose to 1250mg q12h, and will draw another trough level prior to fourth dose of the new regimen. Pharmacy Service will continue to monitor and adjust dosing as required. Follow-Up Labs Follow-Up Labs: Trough: Vancomycin Date/Time Labs Ordered Labs to be done on [date and time ordered]: 02/02/24 @3848
[2024-02-01] MEDS: Vancomycin HCl 1,250 MG in 0.9% Normal Saline (250mL Bag) 250 ML 167 MG IV (04:56)
[2024-02-01] MEDS: Piperacil/Tazobactam 3.375 GM in 0.9% Normal Saline (50mL MB+) 50 ML IV (04:58)
[2024-02-01] MEDS: 0.9% Saline Lock 10 ML Syringe IV (04:59)
[2024-02-01 05:11] VITALS: BP 126/45; PULSE 62; RESP 18; TEMP 37; O2SAT 98
[2024-02-01 06:00] VITALS: BMI 25.3
--- NOTE | 2024-02-01 07:21 | PCM.PN.HOSP ---
Reason for Visit Reason for Visit: Diagnoses Cellulitis of right lower limb (01/29/24) Subjective Subjective Feels weak. Wound prefer to go home. Objective Data Objective Data Vital Signs: Vital Signs Temp Pulse Resp BP Pulse Ox O2 Del Method 37.0 C 62 18 126/45 H 98 Room Air 02/01/24 05:11 02/01/24 05:11 02/01/24 05:11 02/01/24 05:11 02/01/24 05:11 02/01/24 05:11 Oxygen Delivery Method Room Air Weight: 73.3 kg Body Mass Index (BMI) 25.3 Intake & Output: Intake and Output for Last 24 Hours 01/30/24 01/31/24 02/01/24 23:59 23:59 23:59 Intake Total 1411.0 / 1911.0 1530 / 1830 625 / 625 Output Total 800 / 1750 1500 / 2300 1100 / 1100 Balance 611.0 / 161.0 30 / -470 -475 / -475 Lab / Micro Data 01/31/24 05:55 02/01/24 03:26 Labs: Laboratory Results - last 24 hr 02/01/24 03:26: Sodium 134 L, Potassium 3.8, Chloride 102, Carbon Dioxide 27.0, Anion Gap 5, BUN 7, Creatinine 0.26 L, Estim Creat Clear Calc 63.12, Est GFR (MDRD) Af Amer 434, Est GFR (MDRD) Non-Af 359, BUN/Creatinine Ratio 27.0 H, Glucose 89, Calcium 8.6, Vancomycin Trough 8.9 Micro: Microbiology 01/30/24 08:30 Wound - Leg, Right Gram Stain - Final 01/30/24 08:30 Wound - Leg, Right Wound Culture - Preliminary GNR Poss Pseudomonas sp Gram negative jj 01/29/24 15:26 Blood Culture (Wb) - Left Wrist Blood Culture - Preliminary No growth in 48 hours. Physical Exam Const alert and no apparent distress HEENT head/scalp atraumatic Resp normal respiratory effort and no retractions Extremity Extremity Narrative: Cachectic. Neuro Sensorium / Orientation: awake and alert Assessment & Plan Assessment/Plan (1) Cellulitis of leg, right: PLAN: Plan Right lower extremity cellulitis failed outpatient management with augmentin. Wound PCR showing MRSA and staph. Wound and BCx pending. Legs themselves appear to be unremarkable although discussing with the wound care, is concerning for an odor that may be consistent with Pseudomonas. Patient was initially started on Unasyn. Fact that he did not get any better with the Augmentin this would be more or less a lateral move in regards to antibiotics and would treat more aggressively at this point in time though not really sure that this is truly infected. I feel patient would require better compression upon going home, patient states that he is try compression stockings in the past but, given his inclusion body myositis, he did not have the strength to do so nor does his have a strength in order to put those on. He expressed interest in using Yogesh wrap's. Wound culture: Pseudomonas, Citrobacter and S. aureus. Change abx to LVQ. Continue vancomycin for now. Hyponatremia improved with IVF Generalized weakness Suspect d/t underlying infection versus hyponatremia or combination of both PT OT eval and treat Discussed with the patient and his about his weakness. They have the misunderstanding that insurance would cover health aides. Informed them that insurance would cover home health care may be palliative care but [id number] care that would not be covered and that would be shv-om-hascia expenses. 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 Disposition: To be determined. Greater than 35 minutes of which greater than 50% of time was discussing with the patient and his about disposition options. Discussed with them about the unfeasibility of home health care and palliative care for his needs at this time. Also explained there would be cost associated with hiring aides. Did strongly recommend halfway facility. Also try to dissuade them from the misunderstanding that going to a halfway facility is not a stepping stone to going to a senior care but the goal is to get him into home. They seemed receptive to that and would like to again discuss with social work. Charges/Coding Visit Charges Inpatient E&M: 40258 Subs Hosp L2
--- NOTE | 2024-02-01 07:34 | CPS ---
Pt sleeping at this time. SMI and Pep therapy held.
[2024-02-01] MEDS: Menthol/Lanolin/Calamine/Znox 113 GM Tube 1 APPLIC TOPICAL (08:45)
[2024-02-01] MEDS: Lisinopril 10 MG Tablet PO (08:46)
[2024-02-01] MEDS: Enoxaparin 40 MG/0.4 ML Syringe SC (08:46)
[2024-02-01 09:02] VITALS: BP 124/52; PULSE 60; PULSE 66; RESP 18; TEMP 36.7; O2SAT 97; O2SAT 98
[2024-02-01] MEDS: levoFLOXacin 750 MG Tablet PO (12:31)
[2024-02-01] MEDS: oxyCODONE 5 MG Tablet PO (12:31)
[2024-02-01] MEDS: Acetaminophen 325 MG Tablet 650 MG PO (12:32)
[2024-02-01] MEDS: CETIRIZINE HCL 10 MG TABLET PO (12:33)
--- NOTE | 2024-02-01 13:11 | CASEMGMT ---
Addendum entered by Jenna Elizalde 02/01/24 14:46: Pt and pt advised of acceptance to TCU. MICAH Chambers Addendum entered by Jenna Elizalde 02/01/24 14:46: Pt accepted at TCU. Physician advised. MICAH Chambers Original Note: Social Work- SW met with pt and who report that they want a SNF. A list of SNF providers including quality and resource use data and consistent with the patient?s preferred geographic region, medical needs, and insurance network were [facility] Pt and chose TCU as [facility]. Sw provided additional information on palliative care, as well as education on SNF process. Pt and express desire to continue to have pt return to home. SW completed referral to TCU. MICAH Chambers
[2024-02-01 14:40] VITALS: PULSE 62
--- NOTE | 2024-02-01 14:53 | TREXTCAR_ITS ---
Diet Diet Order/Speech Therapy: 01/29/24 17:33 Diet: Regular - General Food consistency:: Mechanical (Minced/Moist) Liquid Consistency:: Regular/Thin Diet Comments: Distant sup, extra sauce/gravy, meds crushed in Routine Orders/Code Status Code Status: DNRCC-A (no intubation) Wound(s) sacral: Wound Type: Pressure Injury right lower leg: Wound Type: Stasis Ulcer Dressing Change: Dry Sterile Dressing (absorptive dressing, wrap with kerlex and reinforce with YOGESH wrap on right leg. YOGESH wrap for compression on the left.) R buttock: Wound Type: Pressure Injury L buttock: Wound Type: Pressure Injury Therapies Weight Bearing: Full weight bearing Physical Therapy: Eval and Treat Occupational Therapy: Eval and Treat Speech Therapy: Eval and Treat Problem/Diagnosis (1) Cellulitis of leg, right: Status: Acute Code(s): L03.115 - Cellulitis of right lower limb Plan Right lower extremity cellulitis * failed outpatient management with augmentin. Wound PCR showing MRSA and staph. Wound and BCx pending. Legs themselves appear to be unremarkable although discussing with the wound care, is concerning for an odor that may be consistent with Pseudomonas. Patient was initially started on Unasyn. Fact that he did not get any better with the Augmentin this would be more or less a lateral move in regards to antibiotics and would treat more aggressively at this point in time though not really sure that this is truly infected. * I feel patient would require better compression upon going home, patient states that he is try compression stockings in the past but, given his inclusion body myositis, he did not have the strength to do so nor does his have a strength in order to put those on. He expressed interest in using Yogesh wrap's. * Wound culture: Pseudomonas, Citrobacter and S. aureus. Change abx to LVQ. Continue vancomycin for now. Hyponatremia * improved with IVF Generalized weakness * Suspect d/t underlying infection versus hyponatremia or combination of both * PT OT eval and treat * Discussed with the patient and his about his weakness. They have the misunderstanding that insurance would cover health aides. Informed them that insurance would cover home health care may be palliative care but [id number] care that would not be covered and that would be [id number]-rd-[id number] expenses. 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 Disposition: To be determined. Greater than 35 minutes of which greater than 50% of time was discussing with the patient and his about disposition options. Discussed with them about the unfeasibility of home health care and palliative care for his needs at this time. Also explained there would be cost associated with hiring aides. Did strongly recommend intermediate facility. Also try to dissuade them from the misunderstanding that going to a intermediate facility is not a stepping stone to going to a fci but the goal is to get him into home. They seemed receptive to that and would like to again discuss with social work. Allergies/Procedures Done in Hospital Allergies bacitracin (From Neosporin ([id number])) Adverse Reaction (Mild, Verified 01/29/24 14:47) Itching neomycin (From Neosporin ([id number])) Adverse Reaction (Mild, Verified 01/29/24 14:47) Itching polymyxin B (From Neosporin ([id number])) Adverse Reaction (Mild, Verified 01/29/24 14:47) Itching adhesive tape Adverse Reaction (Verified 01/29/24 14:47) Unknown Procedures: None Type of Care/Length of Stay Estimated LOS: Convalescent Care Less Than 30 days Type of Care Needed: Skilled Rehab Potential: Poor Prognosis: Fair Additional Orders/Day of Discharge Day of Discharge: 02/01/24 Dietary and Speech Recommendations Dietitian Recommendations/Changes: Continue Regular diet with texture/cons istency 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 Discharge Plan Admission Admit Date/Time: 01/29/24 16:42 Primary Reason for Your Visit: right leg cellulitis Attending Provider: Chip Orourke Primary Care Provider: Taylor Zuniga Consulting Providers: Lacy Hernandez Discharge Orders/Prescriptions Prescriptions: New melatonin 3 mg Tablet 3 mg PO QHS PRN PRN (Reason: Insomnia) Qty: 0 0RF levofloxacin 750 mg Tablet 750 mg PO DAILY@0600 Qty: 0 0RF oxycodone 5 mg Tablet 5 mg PO Q6H PRN (Reason: pain (scale score 7-10)) 3 Days Qty: 12 0RF doxycycline monohydrate 100 mg capsule 100 mg PO BID Qty: 8 0RF Continued multivitamin with folic acid [Thera] 1 TABLET tablet 1 tab PO DAILY Cholecalciferol (Vitamin D3) 1,000 U 1,000 units PO DAILY cyanocobalamin (vitamin B-12) 1,000 MCG tablet, sublingual 1,000 mcg sublingual DAILY coenzyme Q10 50 MG tablet,chewable 200 mg PO DAILY Nitric Oxide 420 mg PO DAILY turmeric 400 mg capsule 400 mg PO DAILY elderberry fruit 200 mg capsule 200 mg PO DAILY lisinopril 5 mg tablet 10 mg PO DAILY cetirizine [24Hour Allergy] 10 mg tablet 10 mg PO DAILY Discontinued amoxicillin-pot clavulanate 600-42.9 mg/5 mL suspension for reconstitution 7.3 ml PO BID Referrals / Follow Up: Taylor Zuniga DO [Primary Care Provider] - Within 2 Weeks Disposition Disposition (needs filled in before D/C Order can be placed): [facility] Facility
--- NOTE | 2024-02-01 15:02 | PCM.DC.SUM ---
Providers Date of Admission: 01/29/24 Primary Care Physician: Dr. Taylor Zungia, DO Consultations 01/29/24 17:33 Consult: Onc/Wound/monument carver Routine Comment: Reason for Consult:: RLE wounds, BLE lymphedema 01/29/24 18:37 Consult: Onc/Wound/monument carver Routine Comment: Reason for Consult:: ganesh lower leg wounds, and coccyx wound Reason For Visit: CELLULITIS RIGHT LEG Diagnosis Discharge Diagnosis (1) Cellulitis of leg, right: Status: Acute Code(s): L03.115 - Cellulitis of right lower limb Plan Right lower extremity cellulitis failed outpatient management with augmentin. Wound PCR showing MRSA and staph. Wound and BCx pending. Legs themselves appear to be unremarkable although discussing with the wound care, is concerning for an odor that may be consistent with Pseudomonas. Patient was initially started on Unasyn. Fact that he did not get any better with the Augmentin this would be more or less a lateral move in regards to antibiotics and would treat more aggressively at this point in time though not really sure that this is truly infected. I feel patient would require better compression upon going home, patient states that he is try compression stockings in the past but, given his inclusion body myositis, he did not have the strength to do so nor does his have a strength in order to put those on. He expressed interest in using Yogesh wrap's. Wound culture: Pseudomonas, Citrobacter and S. aureus. Change abx to LVQ. Continue vancomycin for now. Hyponatremia improved with IVF Generalized weakness Suspect d/t underlying infection versus hyponatremia or combination of both PT OT eval and treat Discussed with the patient and his about his weakness. They have the misunderstanding that insurance would cover health aides. Informed them that insurance would cover home health care may be palliative care but [id number] care that would not be covered and that would be asi-ff-ticrso expenses. 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 Disposition: To be determined. Greater than 35 minutes of which greater than 50% of time was discussing with the patient and his about disposition options. Discussed with them about the unfeasibility of home health care and palliative care for his needs at this time. Also explained there would be cost associated with hiring aides. Did strongly recommend group home facility. Also try to dissuade them from the misunderstanding that going to a group home facility is not a stepping stone to going to a intermediate but the goal is to get him into home. They seemed receptive to that and would like to again discuss with social work. Medications at Discharge Home Medications Cholecalciferol (Vitamin D3) 1,000 units PO DAILY 07/31/16 multivitamin with folic acid 400 mcg tablet (Thera) 1 tab PO DAILY 07/31/16 cyanocobalamin (vitamin B-12) 1,000 mcg sublingual tablet 1,000 mcg sublingual DAILY 12/04/17 Nitric Oxide 420 mg PO DAILY 12/04/18 coenzyme Q10 50 mg chewable tablet 200 mg PO DAILY 12/04/18 elderberry fruit 200 mg capsule 200 mg PO DAILY 12/17/22 turmeric 400 mg capsule 400 mg PO DAILY 12/17/22 cetirizine 10 mg tablet (24Hour Allergy) 10 mg PO DAILY allergies 01/29/24 lisinopril 5 mg tablet 10 mg PO DAILY 01/29/24 doxycycline monohydrate 100 mg capsule 100 mg PO BID #8 caps 02/01/24 levofloxacin 750 mg tablet 750 mg PO DAILY@0600 #0 tabs 02/01/24 melatonin 3 mg tablet 3 mg PO QHS PRN PRN Insomnia #0 tabs 02/01/24 oxycodone 5 mg tablet 5 mg PO Q6H PRN pain (scale score 7-10) 3 days #12 tabs 02/01/24 Hospital Course Operations None Procedures None Summary of Care Provided Minutes Spent on Discharge: 45 Hospital Course: Patient presents with increasing seeping from right lower extremity wounds. Patient has rut lymphedematous changes to his lower extremity with cobblestoning type scarring. But on his right leg he had wound that was draining. His to the point where he has had to put a baby . Tubes were bulb fluid that was draining from that. He was on Augmentin prior to arrival but still continued to drain. Patient was admitted here for that for cellulitis. On my evaluation did not bell to be cellulitic but description of the wound nurse, it smelled like Pseudomonas and wound culture did show Pseudomonas as well as Citrobacter and Staph aureus. Patient's PCR for MRSA though was positive. Patient was started on vancomycin and pip-tazo and leg is felt better. Will discharge patient to complete course of antibiotics with levofloxacin as well as doxycycline to cover the MRSA. Both the Pseudomonas and Citrobacter were sensitive to levofloxacin. Initially the plan was for the patient to go home with home care but I had a long discussion with the patient and his about the feasibility and safety of him going home. They have misconceptions about what home care would entail but I did explain to them that it would be rather limited in scope if they needed more [id number] care that that would be [id number] cost for hearing aids. They did greet to go to group home facility with the TCU and the patient has been accepted and will be discharged there today. Weight / BMI Weight Weight: 73.3 kg Body Mass Index (BMI) 25.3 ABG / Lab / Microbiology Data 01/31/24 05:55 02/01/24 03:26 Laboratory: Laboratory Results - last 24 hr 02/01/24 03:26: Sodium 134 L, Potassium 3.8, Chloride 102, Carbon Dioxide 27.0, Anion Gap 5, BUN 7, Creatinine 0.26 L, Estim Creat Clear Calc 63.12, Est GFR (MDRD) Af Amer 434, Est GFR (MDRD) Non-Af 359, BUN/Creatinine Ratio 27.0 H, Glucose 89, Calcium 8.6, Vancomycin Trough 8.9 Microbiology: Microbiology 01/30/24 08:30 Wound - Leg, Right Gram Stain - Final 01/30/24 08:30 Wound - Leg, Right Wound Culture - Preliminary Pseudomonas aeruginosa Citrobacter koseri Staphylococcus aureus 01/29/24 15:26 Blood Culture (Wb) - Left Wrist Blood Culture - Preliminary No growth in 48 hours. D/C Instructions Discharge Diet: No restrictions Meaningful Use Info Meaningful Use Meaningful Use Diagnoses (Choose all that apply): None applicable Ischemic Stroke Statin Dosing Therapy Reference: STATIN DOSE THERAPY REFERENCE: * Patients > 75 years receive moderate or high dose statin therapy. * Patients 75 years or YOUNGER should receive HIGH intensity statin dose unless contraindicated. You will be required to document reason for non-treatment if statin daily dose does not meet guidelines. HIGH DOSE STATIN THERAPY DAILY Atorvastatin > than or = to 40 mg Rosuvastatin > than or = to 20 mg Amlodipine + Atorvastatin > than or = to 2.5/40 mg Ezetimibe + Simvastatin 10/80 mg Simvastatin 80mg Discharge Plan Admission Admit Date/Time: 01/29/24 16:42 Primary Reason for Your Visit: right leg cellulitis Attending Provider: Chip Orourke Primary Care Provider: Taylor Zuniga Consulting Providers: Lacy Bell Discharge Orders/Prescriptions Prescriptions: New melatonin 3 mg Tablet 3 mg PO QHS PRN PRN (Reason: Insomnia) Qty: 0 0RF levofloxacin 750 mg Tablet 750 mg PO DAILY@0600 Qty: 0 0RF oxycodone 5 mg Tablet 5 mg PO Q6H PRN (Reason: pain (scale score 7-10)) 3 Days Qty: 12 0RF doxycycline monohydrate 100 mg capsule 100 mg PO BID Qty: 8 0RF Continued multivitamin with folic acid [Thera] 1 TABLET tablet 1 tab PO DAILY Cholecalciferol (Vitamin D3) 1,000 U 1,000 units PO DAILY cyanocobalamin (vitamin B-12) 1,000 MCG tablet, sublingual 1,000 mcg sublingual DAILY coenzyme Q10 50 MG tablet,chewable 200 mg PO DAILY Nitric Oxide 420 mg PO DAILY turmeric 400 mg capsule 400 mg PO DAILY elderberry fruit 200 mg capsule 200 mg PO DAILY lisinopril 5 mg tablet 10 mg PO DAILY cetirizine [24Hour Allergy] 10 mg tablet 10 mg PO DAILY Discontinued amoxicillin-pot clavulanate 600-42.9 mg/5 mL suspension for reconstitution 7.3 ml PO BID Referrals / Follow Up: Taylor Zuniga DO [Primary Care Provider] - Within 2 Weeks Disposition Disposition (needs filled in before D/C Order can be placed): [facility]ustodial Facility Charges/Coding Visit Charges Inpatient E&M: 69303 Disch Hosp >30min
[2024-02-01 15:41] VITALS: BP 127/56; PULSE 62; RESP 18; TEMP 36.7; O2SAT 98
--- NOTE | 2024-02-01 15:58 | CASEMGMT ---
Deanne Work- SW faxed documentation to TCU for discharge. Bedside nurse advised. MICAH Chambers
--- NOTE | 2024-02-01 16:21 | NURSING ---
report called to TCU nurse
== END 2024-02-01 17:12 | disposition skilled nursing facility (03) | DRG 603 ==
LOC: ED 16:25 → MS3 16:53
PROVIDERS: Admitting Provider Internal Medicine; Emergency Provider Emergency Medicine; PCP Internal Medicine
DX: L03.115 Cellulitis of right lower limb (principal); L97.811 Non-pressure chronic ulcer of other part of right lower leg limited to breakdown of skin; E87.1 Hypo-osmolality and hyponatremia; G72.41 Inclusion body myositis [IBM]; I87.2 Venous insufficiency (chronic) (peripheral); I10 Essential (primary) hypertension; I89.0 Lymphedema, not elsewhere classified; B95.62 Methicillin resistant Staphylococcus aureus infection as the cause of diseases classified elsewhere; B96.5 Pseudomonas (aeruginosa) (mallei) (pseudomallei) as the cause of diseases classified elsewhere; B96.89 Other specified bacterial agents as the cause of diseases classified elsewhere; R53.1 Weakness; Z79.2 Long term (current) use of antibiotics; Z79.899 Other long term (current) drug therapy
CPT/HCPCS: 36415; 80048; 80053; 80202; 82436; 82570; 83605; 83735; 83880; 83930; 83935; 84133; 84300; 84540; 85025; 87040; 87070; 87077; 87184; 87186; 87205; 87640; 92526; 92610; 94668; 97162; 97166; 97530; 97535; 97802; 99284; J7030; J7050; A4216; J0295

== ENCOUNTER 2024-02-01 17:37 | Inpatient (IN) | payer MEDICARE, OTHER, SELFPAY ==
[2024-02-01 18:45] VITALS: BP 134/47; PULSE 60; RESP 16; TEMP 36.2; O2SAT 98; BMI 23.6
[2024-02-01] MEDS: Doxycycline 100 MG CAPSULE PO (21:34)
[2024-02-02 05:38] LABS: Absolute Lymphocyte Count 1.16 X10^3/uL (0.83-4.51); Absolute Neutrophil Count 3.5 X10^3/uL (2.0-7.7); Basophil# 0.03 X10^3/uL; Basophil% 0.5 % (0-1); Eosinophil# 0.15 X10^3/uL; Eosinophils% 2.7 % (0-5); Hematocrit 33.4 % (40-54); Hemoglobin 11.3 g/dL (13.0-16.5); Lymphocyte # 1.16 X10^3/ul (0.83-4.51); Lymphocyte % 20.9 % (19-41); Mean Corp Hgb Conc 33.8 g/dL (32-36); Mean Corpuscular Hgb 31.5 pg (27.0-32.0); Mean Platelet Vol. 9.2 fl (6.2-12.0); Monocyte# 0.74 X10^3/uL; Monocyte% 13.3 % (0-10); NRBC Flagged by Analyzer 0 % (0-5); Neutrophil # 3.46 X10^3/uL (2.7-7.7); Neutrophil % 62.2 % (47-70); Platelet Count 247 K/mm3 (150-450); RBC Distribution Width CV 11.9 % (11.6-14.6); RBC Distribution Width SD 41.1 fl (35.1-43.9); Red Blood Count 3.59 M/mm3 (4.6-6.2); White Blood Count 5.6 K/mm3 (4.4-11.0)
[2024-02-02 05:54] LABS: Anion Gap 4 (5-15); BUN 10 mg/dL (7-18); BUN/Creat Ratio 31.3 RATIO (10-20); Calcium,Total 8.8 mg/dL (8.5-10.1); Chloride 104 mmol/L (98-107); Creatinine, Serum 0.32 mg/dL (0.70-1.30); EST Glomerular Filtration Rate 282 mL/min (>60); Est Glom Filt Rate - Afr Amer 341 mL/min (>60); Estimated Creatinine Clearance 63.12 ml/min; Glucose 95 mg/dL (74-106); Sodium Level 136 mmol/L (136-145)
[2024-02-02] MEDS: levoFLOXacin 750 MG Tablet PO (06:33)
--- NOTE | 2024-02-02 08:06 | PCM.HP.STD ---
HPI - General General Date of Admission: 02/01/24 Date of Service: 02/02/24 HPI Narrative JEANIE LANDRY, is a 83 M with a past medical history of inclusion body myositis (diagnosed in 1995), hypertension, dysphagia and edema of the lower extremities who presented to the ED at [facility] on 01/29/2024 complaining of increased weeping from his legs and redness of both lower extremities for the preceding 2 to 3 weeks. He was treated as an outpatient with 2 rounds of Augmentin with no improvement. He was admitted to the hospitalist service and placed on IV Unasyn. A wound culture grew Pseudomonas aeruginosa, Citrobacter's Koseri and MRSA. He was transitioned to Levaquin and Vancomycin. BC's had no growth. He was transferred to SNF/TCU on 02/01/24 for therapy to strengthen/rehabilitate prior to returning home. Antibiotics at [place] include doxycycline 100 mg twice daily and Levaquin 750 mg p.o. daily All lab drawn this a.m. was personally reviewed. The white blood cell count is normal at 5.6 with an unremarkable differential. The hemoglobin is stable at 11.3. Sodium was low at 129 at admission to the hospital but after intravenous fluids the sodium today is 136. Potassium is 4. Creatinine is stable at 0.32. Afebrile Vital signs stable Eating well and had 75 to 100% of his supper last night. Poor fluid intake. Jeanie tells me that he usually spends most of the day in the basement at his computer with his legs dependent. He sleeps in a recliner. His has been using Elastoplast on the legs to control edema. His legs have been weeping. The R LE always swells more than the left. The left currently brianna not have swelling. The skin over the feet and distal LE's is fibrotic, very dry and cracked and deformed. He has a stair lift at home and also has 3 vertical chair lifts to help him get up from a chair Walks with the aid of a rollator. [facility] Medical History (Updated 02/02/24 @ 12:[address] Kelly Womack, ) History of non-Hodgkin's lymphoma Lichenification Lymphedema Inclusion body myositis Scarlet fever Cancer CYST EXCISION RIGHT BREAST Osteopenia Hypertension Anemia Home Medications ?Medication ?Instructions ?Recorded ?Last Taken ?Type Cholecalciferol (Vitamin D3) 1,000 units PO DAILY supplement 07/31/16 Unknown History multivitamin with folic acid 400 1 tab PO DAILY supplement 07/31/16 Unknown History mcg tablet (Thera) cyanocobalamin (vitamin B-12) 1,000 mcg sublingual DAILY 12/04/17 Unknown History 1,000 mcg sublingual tablet supplement Nitric Oxide 420 mg PO DAILY supplement 12/04/18 Unknown History coenzyme Q10 50 mg chewable tablet 200 mg PO DAILY supplement 12/04/18 Unknown History elderberry fruit 200 mg capsule 200 mg PO DAILY supplement 12/17/22 Unknown History turmeric 400 mg capsule 400 mg PO DAILY supplement 12/17/22 Unknown History cetirizine 10 mg tablet (24Hour 10 mg PO DAILY allergies 01/29/24 02/01/24 History Allergy) lisinopril 5 mg tablet 10 mg PO DAILY blood pressure 01/29/24 02/01/24 History doxycycline monohydrate 100 mg 100 mg PO BID infection #8 caps 02/01/24 Unknown Rx capsule levofloxacin 750 mg tablet 750 mg PO DAILY@0600 infection #0 02/01/24 02/01/24 Rx tabs melatonin 3 mg tablet 3 mg PO QHS PRN PRN Insomnia #0 02/01/24 01/30/24 Rx tabs oxycodone 5 mg tablet 5 mg PO Q6H PRN pain (scale score 02/01/24 02/01/24 Rx 7-10) 3 days #12 tabs Allergy/AdvReac Type Severity Reaction Status Date / Time bacitracin (From Neosporin AdvReac Mild Itching Verified 01/29/24 14:47 ([id number])) neomycin (From Neosporin AdvReac Mild Itching Verified 01/29/24 14:47 ([id number])) polymyxin B (From Neosporin AdvReac Mild Itching Verified 01/29/24 14:47 ([id number])) adhesive tape AdvReac Unknown Verified 01/29/24 14:47 Family History Father Colon cancer Mother Gastric cancer Surgical History History of cataract extraction Social History Smoking Status: Never smoker ROS Constitutional Constitutional: Reports fatigue, weakness and other Details: Poor fluid intake and the MM are dry. ; Denies anorexia, change in weight, chills, fever(s) or night sweats Eyes Eyes: Denies blurry vision, change in vision, eye pain or loss of vision ENT HEENT: Reports dry mouth and dysphagia; Denies abnormal hearing, headache(s), hearing loss, nasal congestion or sore throat Cardiovascular Cardiovascular: Reports edema; Denies chest pain, dyspnea on exertion, lightheadedness, orthopnea, palpitations, paroxysmal nocturnal dyspnea or syncope Respiratory/Chest Respiratory/Chest: Denies cough, dyspnea, shortness of breath at rest, shortness of breath with exertion or wheezing Gastrointestinal Gastrointestinal: Denies abdominal pain, constipation, diarrhea, dyspepsia, hematemesis, hematochezia, nausea or vomiting Genitourinary Genitourinary: Denies dysuria, hematuria, nocturia, urinary frequency, urinary hesitancy, urinary incontinence or urinary urgency Musculoskeletal Musculoskeletal: Reports back pain, difficulty walking and neck pain; Denies joint pain, joint swelling, radiating pain into limb or tremors Integumentary Integumentary: Reports dry skin; Denies jaundice Neurologic Neurologic: Reports other Details: Generalized weakness ; Denies confusion, disequilibrium, dizziness, focal weakness, headache(s), paresthesias, seizures or tremor(s) Psychiatric Psychiatric: Denies anxiety, depression, homicidal ideation or suicidal ideation Endocrine Endocrinology: Denies change in body appearance, polydipsia or polyuria Hematologic/Lymphatic Hematologic/Lymphatic: Reports systems reviewed and no addt'l complaints, except as documented Allergic/Immunologic Allergic/Immunologic: Denies rhinitis, eczemia or asthma Vital Signs Vital Signs Vital Signs: 02/01/24 18:45 02/01/24 19:30 Temperature 97.2 F L Temperature Source Temporal Pulse Rate 60 Pulse Rhythm Regular Pulse Strength Normal (2+) Respiratory Rate 16 Respiratory Effort Normal Non-Labored Respiratory Depth Normal Respiratory Pattern Normal Blood Pressure 134/47 H Blood Pressure Mean 76 Blood Pressure Source Monitor Blood Pressure Position Semi-Fowlers Blood Pressure Location Left Arm Pulse Ox 98 Oxygen Delivery Method Room Air Room Air Weight Weight: 150 lb 12.8 oz Body Mass Index (BMI) 23.6 Physical Exam Const alert and oriented x3 General Appearance: cooperative and well kempt HEENT normocephalic, head/scalp atraumatic and hearing grossly normal bilaterally Eyes PERRL, EOMs intact bilaterally, conjunctivae normal and no scleral icterus Eyes Narrative: No discharge from the eyes and no mattering of the eyelashes Neck No nuchal rigidity General: trachea midline Chest Chest: symmetrical chest wall rise Resp normal respiratory effort and clear to auscultation bilaterally Resp Narrative: no cough with deep breathing. Effort and Inspection: able to speak in complete sentences Cardio regular rate, regular rhythm, no rub and no gallops Cardio Narrative: Systolic MM 2/6 at the second RICS with radiation to the LVOT, LLSB, apex and into the left axilla. GI normal to inspection, nondistended, normoactive bowel sounds, soft to palpation and non-tender GI Narrative: No guarding with palpation. Extremity Extremity Narrative: has some calf tenderness on the R but, only with compression of the calf. Swelling in the RLE.....it is always more swollen than the LLE but, much better than it has been prior to admission. Skin Skin Narrative: The skin over both lower extremities is fibrotic with cracking of the skin. Heavy scaling of the distal LE's extending from the mid tibia to the tips of the toes. There is a denuded area over the posterior R calf. The dressing is adherent to the wound. There was some bleeding with removal of the dressing. There is erythema of the R distal LE and mild increased in warmth to touch. General Skin Exam: dry skin and other Marked decrease in the elasticity of the skin over the distal lower extremities due to chronic lymphedema. ; Negative for jaundice Neuro oriented x3 and CN's II-XII intact bilaterally Neuro Narrative: generalized muscle weakness all limbs. Still able to ambulate with the rollator. Psych mental status grossly normal, thought process normal, cooperative, affect normal and speech normal Psych Narrative: Making good eye contact with me when we are speaking. Very attentive to what is being said. Appearance: appropriate and well kempt Activity / Motor Behavior: appropriate eye contact Results Lab / Micro Data 02/02/24 05:00 02/02/24 05:00 Labs: Laboratory Results - last 24 hr 02/02/24 05:00: WBC 5.6, RBC 3.59 L, Hgb 11.3 L, Hct 33.4 L, MCV 93.0, MCH 31.5, MCHC 33.8, RDW Std Deviation 41.1, RDW Coeff of Nils 11.9, Plt Count 247, MPV 9.2, Immature Gran % (Auto) 0.400, Neut % (Auto) 62.2, Lymph % (Auto) 20.9, [place] % (Auto) 13.3 H, Eos % (Auto) 2.7, Baso % (Auto) 0.5, Absolute Neuts (auto) 3.5, Absolute Lymphs (auto) 1.16, Nucleated RBC % 0, Sodium 136, Potassium 4.0, Chloride 104, Carbon Dioxide 28.0, Anion Gap 4 L, BUN 10, Creatinine 0.32 L, Estim Creat Clear Calc 63.12, Est GFR (MDRD) Af Amer 341, Est GFR (MDRD) Non-Af 282, BUN/Creatinine Ratio 31.3 H, Glucose 95, Calcium 8.8 Assessment & Plan Assessment/Plan (1) Physical debility: (2) Cellulitis of leg, right: PLAN: Secondary to Pseudomonas aeruginosa, Citrobacter koseri and MRSA. Received Vancomycin in hospital and is now on Doxycycline. Had 3 days of intravenous Zosyn and has been transitioned to Levaquin 750 mg daily on 02/02/2024. Will write for 4 total doses of Levaquin. (3) Lymphedema: PLAN: Has never had lymphedema pumps. Sits with his legs dependent at a computer for hours at a time and does not elevate until he gets into the recliner to sleep at night. (4) Lichenification: PLAN: Secondary to longstanding lymphedema of the lower extremities. Associated with hyperpigmentation. (5) Inclusion body myositis: PLAN: Diagnosed in 1995 (6) Weakness: (7) Anemia: QUALIFIERS: Anemia type: unspecified type Qualified Code(s): D64.9 - Anemia, unspecified PLAN: This is new. Will check a hemoccult stool PLAN: Plan PLAN PT for gait stability OT for ADL's ST for evaluation - for dysphagia Analgesics as needed Bowel protocol Fall precautions Assess for Anxiety/Depression DVT prophylaxis with Lovenox 40 mg subcu daily Follow up with Dr. Zuniga and Dr. Kim following DC from Rehab AM lab including CMP, CBC, Mag and Phos-all personally reviewed. Change the dressing on the right posterior calf once daily. Cleanse the wound with soap and water, apply a thick layer of hydrogel covered by Adaptic and then an ABD and then wrap with an MICHELLE. remove compression at night and apply petrolatum and ammonium lactate to both LE's from the tips of the toes to the tibial plateau's BL sparing the open wound. We had a discussion about the importance of elevation in controlling edema. I advised he get up and take a walk every hour and that he institute getting into the recliner and elevating his legs for 1 hour twice a day. If the swelling recurs when he goes home with compression and elevation then would look into lymphedema pumps. We discussed a palliative care referral. Charges/Coding Visit Charges Inpatient E&M: 64778 SNF Subs L2
[2024-02-02 12:03] VITALS: BP 157/56; PULSE 64; RESP 16; TEMP 36.8; O2SAT 92
[2024-02-02] MEDS: Cyanocobalamin 500 MCG Tablet 1000 MCG PO (12:05)
[2024-02-02] MEDS: Doxycycline 100 MG CAPSULE PO ×2 (12:05→21:22)
[2024-02-02] MEDS: Cholecalciferol (VIT D3) 25 MCG TABLET (1,000 UNITS) PO (12:05)
[2024-02-02] MEDS: Multivitamins,Therapeutic Tablet 1 TABLET PO (12:05)
[2024-02-02] MEDS: Lisinopril 10 MG Tablet PO (12:05)
[2024-02-02] MEDS: Menthol/Lanolin/Calamine/Znox 113 GM Tube 1 APPLIC TOPICAL ×2 (12:11→21:22)
[2024-02-02] MEDS: Nystatin Powder 15gm Bottle 1 APPLIC TOPICAL ×2 (12:11→21:23)
[2024-02-02] MEDS: Tuberculin,Purif.prot.deriv. 50 TU/ML Vial 0.1 ML ID (14:22)
[2024-02-02] MEDS: CETIRIZINE HCL 10 MG TABLET PO (16:06)
[2024-02-02] MEDS: Petrolatum 33% Tube 1 APPLIC TOPICAL (21:23)
[2024-02-02] MEDS: Ammonium Lactate 225 gm Bottle 1 APPLIC TOPICAL (21:23)
--- NOTE | 2024-02-02 23:18 | PCM.PN.DRR ---
TCU RX Drug Regimen Review Subjective/Objective Subjective/Objective: Subjective: TCU Admission. 83 YOM presented to the ER with increased weeping/redness in lower extremity. Hospitalized for cellulitis due to citrobacter and MRSA. Admitted to TCU with debility for strengthening and rehabilitation. Objective: Allergies bacitracin (From Neosporin ([id number])) Adverse Reaction (Mild, Verified 01/29/24 14:47) Itching neomycin (From Neosporin ([id number])) Adverse Reaction (Mild, Verified 01/29/24 14:47) Itching polymyxin B (From Neosporin ([id number])) Adverse Reaction (Mild, Verified 01/29/24 14:47) Itching adhesive tape Adverse Reaction (Verified 01/29/24 14:47) Unknown Current Medications Generic Name Dose Route Start Last Admin Trade Name Freq PRN Reason Stop Dose Admin Calamine/Phenol 1 applic 02/02/24 10:00 02/02/24 21:22 Menthol/Lanolin/Calamine/Znox 113 Gm Tube TOPICAL 1 applic BID LISSETT Administration Protocol Cetirizine HCl 10 mg 02/02/24 16:00 02/02/24 16:06 Cetirizine Hcl 10 Mg Tablet PO 10 mg DAILY@1600 LISSETT Administration Cholecalciferol 25 mcg 02/02/24 10:00 02/02/24 12:05 Cholecalciferol (Vit D3) 25 Mcg Tablet (1,000 Units) PO 25 mcg DAILY LISSETT Administration Cyanocobalamin 1,000 mcg 02/02/24 10:00 02/02/24 12:05 Cyanocobalamin 500 Mcg Tablet PO 1,000 mcg DAILY LISSETT Administration Doxycycline Monohydrate 100 mg 02/01/24 22:00 02/02/24 21:22 Doxycycline 100 Mg Capsule PO 02/05/24 10:01 100 mg BID LISSETT Administration Enoxaparin Sodium 40 mg 02/03/24 10:00 Enoxaparin 40 Mg/0.4 Ml Syringe SC DAILY LISSETT Lactic Acid 1 applic 02/02/24 22:00 02/02/24 21:23 Ammonium Lactate 225 Gm Bottle TOPICAL 1 applic QHS LISSETT Administration Protocol Levofloxacin 750 mg 02/02/24 06:00 02/02/24 06:33 Levofloxacin 750 Mg Tablet PO 02/05/24 06:01 750 mg DAILY@0600 LISSETT Administration Lisinopril 10 mg 02/02/24 10:00 02/02/24 12:05 Lisinopril 10 Mg Tablet PO 10 mg DAILY LISSETT Administration Protocol Melatonin 3 mg 02/01/24 17:46 Melatonin 3 Mg Tablet PO QHS PRN PRN Insomnia Multi-Ingredient Cream 1 applic 02/02/24 22:00 02/02/24 21:23 Petrolatum 33% Tube TOPICAL 1 applic QHS [facility] Administration Protocol Multivitamins 1 tablet 02/02/24 08:00 02/02/24 12:05 Multivitamins,Therapeutic Tablet PO 1 tablet DAILYCM LISSETT Administration Nystatin 1 applic 02/02/24 10:00 02/02/24 21:23 Nystatin Powder 15gm Bottle TOPICAL 1 applic BID LISSETT Administration Protocol Oxycodone HCl 5 mg 02/01/24 17:46 Oxycodone 5 Mg Tablet PO Q6H PRN pain (scale score 7-10) Sodium Chloride 10 - 40 ml 02/01/24 18:59 0.9% Saline Lock 10 Ml Syringe IV UD PRN SALINE FLUSH Tuberculin PPD 0.1 ml 02/09/24 10:00 Tuberculin,Purif.Prot.Deriv. 50 Tu/Ml Vial ID 02/09/24 10:01 X1 ONE Problem List Lichenification (Chronic) Lymphedema (Acute) Physical debility (Acute) Anemia (Acute) Inclusion body myositis (Acute) Weakness (Acute) Cellulitis of leg, right (Acute) Vital Signs Temp Pulse Resp BP Pulse Ox O2 Del Method 98.2 F 64 16 157/56 H 92 Room Air 02/02/24 12:03 02/02/24 12:03 02/02/24 12:03 02/02/24 12:03 02/02/24 12:03 02/02/24 14:43 Oxygen Delivery Method Room Air Weight: 68.402 kg Body Mass Index (BMI) 23.6 Sodium 136 mmol/L (136-145) 02/02/24 05:00 Potassium 4.0 mmol/L (3.5-5.1) 02/02/24 05:00 Chloride 104 mmol/L (98-107) 02/02/24 05:00 Carbon Dioxide 28.0 mmol/L (21.0-32.0) 02/02/24 05:00 Anion Gap 4 (5-15) L 02/02/24 05:00 BUN 10 mg/dL (7-18) 02/02/24 05:00 Creatinine 0.32 mg/dL (0.70-1.30) L 02/02/24 05:00 Est GFR (MDRD) Af Amer 341 mL/min (>60) 02/02/24 05:00 Est GFR (MDRD) Non-Af 282 mL/min (>60) 02/02/24 05:00 BUN/Creatinine Ratio 31.3 RATIO (10-20) H 02/02/24 05:00 Glucose 95 mg/dL (74-106) 02/02/24 05:00 Assessment/Plan: 1. Pain: oxycodone 5mg PO Q6H PRN pain 7-10. Resident has not had any doses. Please continue to monitor for increased pain and PRN usage. 2. DVT prophylaxis: enoxaparin 40mg SC daily. Please continue to monitor for S/S of bleeding/DVT, hemoglobin (last 11.3g/dL), platelets (last 247,000) and renal function (CrCl 63 mL/min). 3. RLE cellulitis (due to citrobacter and MRSA): doxycycline 100mg PO BID thru 02/05/24 and levofloxacin 750mg PO daily thru 02/05/24. Please continue to monitor for S/S of infection, WBC, diarrhea, tendon pain (black box warning), upset stomach and renal function. 4. Hypertension: lisinopril 10mg PO daily. Please continue to monitor BP (last 157/56), renal function, potassium (last 4mmol/L) and cough. 5. Allergies: cetirizine 10mg PO daily. Please continue to monitor for S/S of allergies. 6. Overall wellness/nutrition: multivitamin 1T PO DAILYCM, cyanocobalamin 1000mcg PO daily and cholecalciferol 25mcg PO daily. Please continue to monitor vitamin D (last 11/23/23) and vitamin B12 (last 07/27/23). 7. Insomnia: melatonin 3mg PO QHS PRN insomnia. Resident has not had any PRN doses. Please continue to monitor for insomnia and PRN usage. 8. Skin integrity: calmoseptine topical BID, ammonium lactate topical QHS, Eucerin QHS, and nystatin powder BID. Please continue to monitor. Assessment/Plan for indications treated with psychotropic medications: None Medical chart and medication regimen reviewed. The following medication irregularities or issues were identified: None Date Date of Note:: 02/02/24
[2024-02-03] MEDS: Multivitamins,Therapeutic Tablet 1 TABLET PO (07:11)
[2024-02-03] MEDS: levoFLOXacin 750 MG Tablet PO (07:12)
[2024-02-03 12:16] VITALS: BP 147/62; PULSE 61; RESP 16; TEMP 36.9; O2SAT 94
[2024-02-03] MEDS: Menthol/Lanolin/Calamine/Znox 113 GM Tube 1 APPLIC TOPICAL ×2 (12:19→21:48)
[2024-02-03] MEDS: Doxycycline 100 MG CAPSULE PO ×2 (12:19→21:39)
[2024-02-03] MEDS: Lisinopril 10 MG Tablet PO (12:20)
[2024-02-03] MEDS: Cyanocobalamin 500 MCG Tablet 1000 MCG PO (12:20)
[2024-02-03] MEDS: Nystatin Powder 15gm Bottle 1 APPLIC TOPICAL ×2 (12:20→21:51)
[2024-02-03] MEDS: Cholecalciferol (VIT D3) 25 MCG TABLET (1,000 UNITS) PO (12:20)
[2024-02-03] MEDS: Enoxaparin 40 MG/0.4 ML Syringe SC (12:25)
--- NOTE | 2024-02-03 13:29 | NURSING ---
Patient refusing staff to assist with meals. Patient requesting only his to assist. Patient does not eat breakfast. comes to unit around 12-1200 and patient will then eat. Patient also requesting nursing staff to give morning medications late. Patient does not like to be disturbed in the mornings and would like to sleep in. Nursing explained on therapy days this may be difficult to achieve. Patient states understanding.
[2024-02-03] MEDS: CETIRIZINE HCL 10 MG TABLET PO (16:07)
--- NOTE | 2024-02-03 19:55 | NURSING ---
Consulted Dr. Henao via telephone, new orders for [place] nasal spray 2 sprays TID PRN, patient can keep at beside per Dr. Henao. New order for colace 200mg BID LISSETT. Telephone orders read back and verified.
[2024-02-03] MEDS: Docusate Sodium 100 MG/10 ML UDC 200 MG PO (21:38)
[2024-02-03] MEDS: Ammonium Lactate 225 gm Bottle 1 APPLIC TOPICAL (21:47)
[2024-02-03] MEDS: Petrolatum 33% Tube 1 APPLIC TOPICAL (21:48)
--- NOTE | 2024-02-04 05:16 | NURSING ---
Patient was unable to tolerate liquid colace; stated it burned the back of his throat. Patient coughed immediately after taking it and then proceeded to attempt to clear secretions for several minutes following. Able to productive a moderate amount of thick, white, frothy sputum. Patient states this has happened in the past but this was the worst episode. Patient states he feels secretions are primarily coming from his nose but it sounded like he was trying to clear his throat. When asked what has helped him in the past with in similar instances, he stated continued attempted to cough up secretions are the only thing that helps. This nurse stayed with patient until he recovered from this episode. Patient encouraged to utilize call light if another coughing fit happens as patient was in a great deal of distress when it was happening and needed help adjusting in bed to better bring up secretions. Before exiting the room, this nurse assisted patient into a more comfortable position and ensured call light was within reach. Written communication left for Dr. Henao.
[2024-02-04] MEDS: Enoxaparin 40 MG/0.4 ML Syringe SC (09:15)
[2024-02-04] MEDS: Cholecalciferol (VIT D3) 25 MCG TABLET (1,000 UNITS) PO (09:15)
[2024-02-04] MEDS: Doxycycline 100 MG CAPSULE PO ×2 (09:15→21:49)
[2024-02-04] MEDS: levoFLOXacin 750 MG Tablet PO (09:15)
[2024-02-04] MEDS: Polyethylene Glycol 3350 17 GM PACKET PO (09:16)
[2024-02-04] MEDS: Menthol/Lanolin/Calamine/Znox 113 GM Tube 1 APPLIC TOPICAL ×2 (09:16→21:49)
[2024-02-04] MEDS: Cyanocobalamin 500 MCG Tablet 1000 MCG PO (09:16)
[2024-02-04] MEDS: Nystatin Powder 15gm Bottle 1 APPLIC TOPICAL ×2 (09:16→21:49)
[2024-02-04] MEDS: Lisinopril 10 MG Tablet PO (09:16)
[2024-02-04] MEDS: Multivitamins,Therapeutic Tablet 1 TABLET PO (09:16)
[2024-02-04 10:00] VITALS: PULSE 78; RESP 16
--- NOTE | 2024-02-04 11:05 | RAD_ITS ---
STUDY: X-RAY CHEST REASON FOR EXAM: Male, 83 years old. Choking with productive cough. TECHNIQUE: Frontal and lateral views of the chest. COMPARISON: May 09, 2013 FINDINGS: Stable low volume inspiration. There is no demonstrated pleural abnormality. Cardiomegaly unchanged. Normal mediastinum and kandy. Normal visualized pulmonary arteries. Stable aortic tortuosity with calcification. 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 Normal visualized ribs, clavicles, and shoulders. Stable large hiatal hernia with air-fluid level. RAD/Chest PA and Lateral IMPRESSION: Stable chest with no acute or active cardiopulmonary disease. Electronically Signed: Brandan Hendrix MD at 12:05 EDT ,
--- NOTE | 2024-02-04 11:31 | NURSING ---
Offered covid vaccine, VIS provided. Resident refuses at this time.
--- NOTE | 2024-02-04 12:05 | CASEMGMT ---
Social Work SW met with patient to complete initial assessment. Introduced self and role. Verified/updated contacts. Patient confirmed code status as DNR-CC. SW requested family provide copies of pt's advanced directives. Educated to Medicare benefit. Pt's goal is to return home with at [facility]. SW will continue to follow for DC planning. LIZ AguilarW
--- NOTE | 2024-02-04 14:30 | NURSING ---
Leasing Specialist Note; Activity Asset: Tom Naidu is independent in his choice of daily activities with reminders. His will be her daily to help with his meals and just visits. He has a smartphone he uses for all his daily reading. He enjoys reading financial business news. [facility] has already visited and he welcomes visits from the car repairer however would prefer not to visits with the therapy dog. Staff will remind him of weekly activities and respect his right to say no.
--- NOTE | 2024-02-04 15:25 | WOUNDNOTE ---
wound photo: right posterolateral lower leg
[2024-02-04 16:00] VITALS: BP 138/80; PULSE 60; RESP 16; TEMP 36.9; O2SAT 95
[2024-02-04] MEDS: CETIRIZINE HCL 10 MG TABLET PO (18:01)
[2024-02-05] MEDS: Doxycycline 100 MG CAPSULE PO (08:30)
[2024-02-05] MEDS: Enoxaparin 40 MG/0.4 ML Syringe SC (08:30)
[2024-02-05] MEDS: Cholecalciferol (VIT D3) 25 MCG TABLET (1,000 UNITS) PO (08:31)
[2024-02-05] MEDS: Multivitamins,Therapeutic Tablet 1 TABLET PO (08:31)
[2024-02-05] MEDS: levoFLOXacin 750 MG Tablet PO (08:31)
[2024-02-05] MEDS: Lisinopril 10 MG Tablet PO (08:31)
[2024-02-05] MEDS: Cyanocobalamin 500 MCG Tablet 1000 MCG PO (08:31)
[2024-02-05] MEDS: Polyethylene Glycol 3350 17 GM PACKET PO (08:31)
[2024-02-05] MEDS: Menthol/Lanolin/Calamine/Znox 113 GM Tube 1 APPLIC TOPICAL ×2 (08:32→21:36)
[2024-02-05] MEDS: Nystatin Powder 15gm Bottle 1 APPLIC TOPICAL ×2 (08:32→21:36)
[2024-02-05 11:40] VITALS: BMI 23.6
[2024-02-05 14:28] VITALS: BP 128/49; PULSE 68; RESP 16; TEMP 37.3; O2SAT 95
[2024-02-05] MEDS: Petrolatum 33% Tube 1 APPLIC TOPICAL (14:56)
[2024-02-05] MEDS: Ammonium Lactate 225 gm Bottle 1 APPLIC TOPICAL (14:56)
[2024-02-05] MEDS: CETIRIZINE HCL 10 MG TABLET PO (17:14)
--- NOTE | 2024-02-05 17:16 | NURSING ---
New order for Magnesium Citrate. Discussed with patient. Patient feels he's right on the verge of having a BM. Patient refuses medication at this time. Last BM noted 01/30. Discussed risks of constipation with patient and spouse. Patient and spouse stated patient has battled constipation all his life. Per patient request, will leave medication on JUL as ordered for nursing to revisit tomorrow with patient if no results tonight. No further needs at this time. Call light within reach.
--- NOTE | 2024-02-06 07:36 | RAD_ITS ---
HISTORY: Constipation. TECHNIQUE: XR Abdomen 1 View. COMPARISON: CT 08/22/2018. FINDINGS: BOWEL GAS PATTERN: No dilated small bowel loops identified. Moderate stool throughout the colon down to the level of the rectum. FREE AIR: Not assessed on supine view. CALCIFICATIONS: Vascular calcifications observed. BONES: Degenerative change. RAD/Abdomen Single View IMPRESSION: Moderate stool throughout the colon. Electronically Signed: Maeve Arthur MD at 9:39 EDT ,
[2024-02-06 10:05] VITALS: BP 141/47; PULSE 64; RESP 16; TEMP 36.6; O2SAT 96
[2024-02-06] MEDS: Cyanocobalamin 500 MCG Tablet 1000 MCG PO (10:07)
[2024-02-06] MEDS: Multivitamins,Therapeutic Tablet 1 TABLET PO (10:07)
[2024-02-06] MEDS: Cholecalciferol (VIT D3) 25 MCG TABLET (1,000 UNITS) PO (10:07)
[2024-02-06] MEDS: Lactulose 20 GM/30 ML UDC PO ×2 (10:07→20:56)
[2024-02-06] MEDS: Enoxaparin 40 MG/0.4 ML Syringe SC (10:07)
[2024-02-06] MEDS: Lisinopril 10 MG Tablet PO (10:08)
[2024-02-06] MEDS: Nystatin Powder 15gm Bottle 1 APPLIC TOPICAL ×2 (10:18→20:58)
[2024-02-06] MEDS: Menthol/Lanolin/Calamine/Znox 113 GM Tube 1 APPLIC TOPICAL ×2 (10:18→20:57)
--- NOTE | 2024-02-06 10:22 | CASEMGMT ---
Social Work IDT met with patient and for care plan meeting. Discussed patient's progress in PT/OT/SN. Educated to Medicare benefit. Provided pt/family with written communication on insurance process and copay coverage during stay. Pt is receiving wound care and is currently a rosemary lift for transfers. Pt will need to return to PLOF to return home with adaptive environment. SW will continue to follow for DC planning. LIZ Aguilar
--- NOTE | 2024-02-06 10:22 | NURSING ---
dr vargas ordered abd xray d/t pt refusing mag citrate lastnight, pt had very small hard pellets this AM. new order for lactulose. given, but pt refused senna S & miralax. very concerned about developing loose stools
--- NOTE | 2024-02-06 16:31 | CASEMGMT ---
Social Work- SW met with pt to complete MDS. Pt scored 15/15. Pt scored 0/2 on PHQ9. Pt was friendly and shared his goals for therapy this afternoon, as well as strategies for staying connected to the outside world and keeping his mind busy. Pt reports his will be visiting this afternoon. MICAH Chambers
[2024-02-06] MEDS: CETIRIZINE HCL 10 MG TABLET PO (16:48)
[2024-02-06 16:51] VITALS: PULSE 64; RESP 15
[2024-02-06] MEDS: Senna/Docusate Sodium 1 Tablet 2 TABLET PO (20:57)
[2024-02-06] MEDS: Petrolatum 33% Tube 1 APPLIC TOPICAL (20:58)
[2024-02-06] MEDS: Ammonium Lactate 225 gm Bottle 1 APPLIC TOPICAL (20:58)
[2024-02-07] MEDS: Enoxaparin 40 MG/0.4 ML Syringe SC (08:45)
[2024-02-07] MEDS: Cyanocobalamin 500 MCG Tablet 1000 MCG PO (08:45)
[2024-02-07] MEDS: Cholecalciferol (VIT D3) 25 MCG TABLET (1,000 UNITS) PO (08:45)
[2024-02-07] MEDS: Lisinopril 10 MG Tablet PO (08:45)
[2024-02-07] MEDS: Lactulose 20 GM/30 ML UDC PO (08:45)
[2024-02-07] MEDS: Nystatin Powder 15gm Bottle 1 APPLIC TOPICAL ×2 (08:46→21:57)
[2024-02-07] MEDS: Menthol/Lanolin/Calamine/Znox 113 GM Tube 1 APPLIC TOPICAL ×2 (08:46→21:58)
[2024-02-07 10:56] VITALS: BP 128/48; PULSE 64; RESP 16; TEMP 36.6; O2SAT 95
--- NOTE | 2024-02-07 14:33 | MDS.RN ---
Pain interview for MDS complete.
[2024-02-07] MEDS: CETIRIZINE HCL 10 MG TABLET PO (15:57)
[2024-02-08 06:01] LABS: Absolute Lymphocyte Count 1.48 X10^3/uL (0.83-4.51); Absolute Neutrophil Count 2.7 X10^3/uL (2.0-7.7); Basophil# 0.03 X10^3/uL; Basophil% 0.6 % (0-1); Eosinophil# 0.19 X10^3/uL; Eosinophils% 3.6 % (0-5); Hematocrit 35.7 % (40-54); Hemoglobin 11.8 g/dL (13.0-16.5); Lymphocyte # 1.48 X10^3/ul (0.83-4.51); Mean Corp Hgb Conc 33.1 g/dL (32-36); Mean Corpuscular Hgb 31.1 pg (27.0-32.0); Mean Corpuscular Volume 94.2 fL (80-94); Mean Platelet Vol. 9.3 fl (6.2-12.0); Monocyte# 0.88 X10^3/uL; Monocyte% 16.7 % (0-10); NRBC Flagged by Analyzer 0 % (0-5); Neutrophil # 2.68 X10^3/uL (2.7-7.7); Neutrophil % 50.7 % (47-70); Platelet Count 253 K/mm3 (150-450); RBC Distribution Width CV 12.4 % (11.6-14.6); Red Blood Count 3.79 M/mm3 (4.6-6.2); White Blood Count 5.3 K/mm3 (4.4-11.0)
[2024-02-08 06:37] LABS: Anion Gap 2 (5-15); BUN 17 mg/dL (7-18); BUN/Creat Ratio 52.3 RATIO (10-20); Chloride 106 mmol/L (98-107); Creatinine, Serum 0.32 mg/dL (0.70-1.30); EST Glomerular Filtration Rate 276 mL/min (>60); Est Glom Filt Rate - Afr Amer 334 mL/min (>60); Estimated Creatinine Clearance 63.12 ml/min; Glucose 96 mg/dL (74-106); Potassium 4.2 mmol/L (3.5-5.1); Sodium Level 136 mmol/L (136-145)
--- NOTE | 2024-02-08 09:17 | NURSING ---
Medication Administration Professional Note; MDS for 02/08/2024
[2024-02-08] MEDS: Menthol/Lanolin/Calamine/Znox 113 GM Tube 1 APPLIC TOPICAL ×2 (10:48→21:59)
[2024-02-08] MEDS: Enoxaparin 40 MG/0.4 ML Syringe SC (10:49)
[2024-02-08] MEDS: Nystatin Powder 15gm Bottle 1 APPLIC TOPICAL ×2 (10:50→21:58)
[2024-02-08] MEDS: Multivitamins,Therapeutic Tablet 1 TABLET PO (10:50)
[2024-02-08] MEDS: Cyanocobalamin 500 MCG Tablet 1000 MCG PO (10:51)
[2024-02-08] MEDS: Lisinopril 10 MG Tablet PO (10:51)
[2024-02-08] MEDS: Cholecalciferol (VIT D3) 25 MCG TABLET (1,000 UNITS) PO (10:51)
[2024-02-08 14:46] VITALS: BP 137/47; PULSE 59; RESP 16; TEMP 35.9; O2SAT 98
[2024-02-08] MEDS: CETIRIZINE HCL 10 MG TABLET PO (16:17)
[2024-02-09] MEDS: Menthol/Lanolin/Calamine/Znox 113 GM Tube 1 APPLIC TOPICAL ×2 (08:26→22:16)
[2024-02-09] MEDS: Cyanocobalamin 500 MCG Tablet 1000 MCG PO (08:26)
[2024-02-09] MEDS: Nystatin Powder 15gm Bottle 1 APPLIC TOPICAL ×2 (08:27→22:18)
[2024-02-09] MEDS: Enoxaparin 40 MG/0.4 ML Syringe SC (08:27)
[2024-02-09] MEDS: Lisinopril 10 MG Tablet PO (08:28)
[2024-02-09] MEDS: Cholecalciferol (VIT D3) 25 MCG TABLET (1,000 UNITS) PO (08:28)
[2024-02-09] MEDS: Tuberculin,Purif.prot.deriv. 50 TU/ML Vial 0.1 ML ID (10:44)
[2024-02-09 13:03] VITALS: BP 140/52; PULSE 58; RESP 18; TEMP 36.6; O2SAT 99
[2024-02-09] MEDS: CETIRIZINE HCL 10 MG TABLET PO (16:38)
[2024-02-10] MEDS: Enoxaparin 40 MG/0.4 ML Syringe SC (09:50)
[2024-02-10] MEDS: Multivitamins,Therapeutic Tablet 1 TABLET PO (09:51)
[2024-02-10] MEDS: Cyanocobalamin 500 MCG Tablet 1000 MCG PO (09:51)
[2024-02-10] MEDS: Lisinopril 10 MG Tablet PO (09:51)
[2024-02-10] MEDS: Cholecalciferol (VIT D3) 25 MCG TABLET (1,000 UNITS) PO (09:52)
[2024-02-10] MEDS: Menthol/Lanolin/Calamine/Znox 113 GM Tube 1 APPLIC TOPICAL ×2 (09:59→19:51)
[2024-02-10] MEDS: Nystatin Powder 15gm Bottle 1 APPLIC TOPICAL ×2 (09:59→19:54)
[2024-02-10 15:09] VITALS: BP 136/58; PULSE 64; RESP 16; TEMP 36.3; O2SAT 96
[2024-02-10] MEDS: CETIRIZINE HCL 10 MG TABLET PO (16:25)
[2024-02-10] MEDS: Petrolatum 33% Tube 1 APPLIC TOPICAL (19:53)
[2024-02-10] MEDS: Ammonium Lactate 225 gm Bottle 1 APPLIC TOPICAL (19:53)
[2024-02-10 20:00] VITALS: PULSE 62; O2SAT 94
[2024-02-11 09:24] VITALS: BP 143/41; PULSE 55; RESP 17; TEMP 36.2; O2SAT 97
[2024-02-11] MEDS: Enoxaparin 40 MG/0.4 ML Syringe SC (09:27)
[2024-02-11] MEDS: Menthol/Lanolin/Calamine/Znox 113 GM Tube 1 APPLIC TOPICAL ×2 (09:27→21:56)
[2024-02-11] MEDS: Multivitamins,Therapeutic Tablet 1 TABLET PO (09:27)
[2024-02-11] MEDS: Lisinopril 10 MG Tablet PO (09:28)
[2024-02-11] MEDS: Cyanocobalamin 500 MCG Tablet 1000 MCG PO (09:28)
[2024-02-11] MEDS: Nystatin Powder 15gm Bottle 1 APPLIC TOPICAL ×2 (09:28→21:55)
[2024-02-11] MEDS: Cholecalciferol (VIT D3) 25 MCG TABLET (1,000 UNITS) PO (09:28)
[2024-02-11] MEDS: CETIRIZINE HCL 10 MG TABLET PO (15:50)
[2024-02-11] MEDS: Petrolatum 33% Tube 1 APPLIC TOPICAL (21:55)
[2024-02-11] MEDS: Ammonium Lactate 225 gm Bottle 1 APPLIC TOPICAL (21:55)
[2024-02-12] MEDS: Nystatin Powder 15gm Bottle 1 APPLIC TOPICAL ×2 (08:30→20:15)
[2024-02-12] MEDS: Multivitamins,Therapeutic Tablet 1 TABLET PO (08:30)
[2024-02-12] MEDS: Enoxaparin 40 MG/0.4 ML Syringe SC (08:30)
[2024-02-12] MEDS: Menthol/Lanolin/Calamine/Znox 113 GM Tube 1 APPLIC TOPICAL ×2 (08:30→20:14)
[2024-02-12] MEDS: Cyanocobalamin 500 MCG Tablet 1000 MCG PO (08:31)
[2024-02-12] MEDS: Cholecalciferol (VIT D3) 25 MCG TABLET (1,000 UNITS) PO (08:31)
[2024-02-12] MEDS: Lisinopril 10 MG Tablet PO (08:31)
[2024-02-12 10:56] VITALS: BP 142/55; PULSE 59; RESP 16; TEMP 36.7; O2SAT 96
--- NOTE | 2024-02-12 11:04 | MDS.RN ---
Information for the MDS was obtained from review of the clinical record, interview of resident, staff, and direct observation of resident?s care.
[2024-02-12 15:11] VITALS: BMI 23.0
--- NOTE | 2024-02-12 15:39 | WOUNDNOTE ---
wound photo: right posterolateral lower leg
--- NOTE | 2024-02-12 16:33 | CASEMGMT ---
Social Work SW spoke with pt and at bedside, per his request to set DC date. SW offered DC 02/15. Both agreeable, stating he will do better in his own environment. SW offered HHC. Pt denied therapy, but agreed to SN. SW offered to provide list of skilled HHC agencies with quality and resource data via [employer]. Pt/ denied stating their PCP referred to [facility] prior and would like to use again. SW to place referral. Pt requested cot transport at DC. SW to coordinate through [facility] and educated to OOP cost due prior to transport. agreed and this worker provided contact information. SW phoned referral to [facility] for SN. Plan: DC home with 02/15, [facility] SN LIZ Aguilar
[2024-02-12] MEDS: CETIRIZINE HCL 10 MG TABLET PO (16:41)
--- NOTE | 2024-02-12 18:49 | DS.PCM_ITS ---
Providers Date of Admission: 02/01/24 Primary Care Physician: Dr. 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] (6) Weakness: Status: Acute Code(s): R53.1 - Weakness (7) Anemia: Status: Acute Code(s): D64.9 - Anemia, unspecified Qualifiers: Anemia type: unspecified type Qualified Code(s): D64.9 - Anemia, unspecified Medications at Discharge Home Medications Cholecalciferol (Vitamin D3) 1,000 units PO DAILY supplement 07/31/16 multivitamin with folic acid 400 mcg tablet (Thera) 1 tab PO DAILY supplement 07/31/16 cyanocobalamin (vitamin B-12) 1,000 mcg sublingual tablet 1,000 mcg sublingual DAILY supplement 12/04/17 Nitric Oxide 420 mg PO DAILY supplement 12/04/18 coenzyme Q10 50 mg chewable tablet 200 mg PO DAILY supplement 12/04/18 elderberry fruit 200 mg capsule 200 mg PO DAILY supplement 12/17/22 turmeric 400 mg capsule 400 mg PO DAILY supplement 12/17/22 cetirizine 10 mg tablet (24Hour Allergy) 10 mg PO DAILY allergies 01/29/24 lisinopril 5 mg tablet 10 mg PO DAILY blood pressure 01/29/24 Hospital Course Operations None Procedures None Summary of Care Provided Minutes Spent on Discharge: 35 Hospital Course: 83 year old male with below past medical history hospitalized for right lower extremity cellulitis, complicated by hyponatremia, admitted to TCU with debility, here for rehabilitation, strengthening, prior to discharge home with . Discharge home with 02/16/2024, [facility] SN. Physical Exam Const alert General Appearance: cooperative HEENT normocephalic Eyes PERRL and EOMs intact bilaterally Neck supple, no JVD and no carotid bruits Resp normal respiratory effort, normal air movement and clear to auscultation bilaterally Cardio regular rate and regular rhythm GI normal to inspection, nondistended, normoactive bowel sounds, non-tender and non-distended Extremity normal capillary refill General Extremity: Negative for edema Skin no rashes or lesions noted General Skin Exam: no breakdown Psych affect normal Appearance: appropriate Weight / BMI Weight Weight: 66.542 kg Body Mass Index (BMI) 23.0 ABG / Lab / Microbiology Data 02/08/24 05:35 02/08/24 05:35 Microbiology: Microbiology 02/12/24 05:42 Nasal Secretion SARS-CoV-2 Antigen (Rapid) - Final 02/06/24 16:00 Stool Stool Occult Blood (BRENT) - Final 02/05/24 05:00 Nasal Secretion SARS-CoV-2 Antigen (Rapid) - Final D/C Instructions Discharge Diet: No restrictions Discharge Activity: Return to Normal Activity, May Shower and Use Walker Weight Bearing Status: Weight bearing as tolerated Call your doctor if you observe: Fever of 101 or Higher, Inability to urinate, Inability to have a bowel movement, Shortness of breath, Dizziness, Fainting spells, Swelling in the ankles, Chest pain and Uncontrolled pain Additional Instructions: Discharge home with 02/16/2024, [facility] SN. Meaningful Use Info Meaningful Use Meaningful Use Diagnoses (Choose all that apply): None applicable Ischemic Stroke Statin Dosing Therapy Reference: STATIN DOSE THERAPY REFERENCE: * Patients > 75 years receive moderate or high dose statin therapy. * Patients 75 years or YOUNGER should receive HIGH intensity statin dose unless contraindicated. You will be required to document reason for non-treatment if statin daily dose does not meet guidelines. HIGH DOSE STATIN THERAPY DAILY Atorvastatin > than or = to 40 mg Rosuvastatin > than or = to 20 mg Amlodipine + Atorvastatin > than or = to 2.5/40 mg Ezetimibe + Simvastatin 10/80 mg Simvastatin 80mg Discharge Plan Admission Admit Date/Time: 02/01/24 17:37 Primary Reason for Your Visit: Debility. Attending Provider: Kelly Womack Primary Care Provider: Taylor Zuniga Instructions Additional Instructions / Restrictions: Discharge home with 02/16/2024, [facility] SN. Discharge Orders/Prescriptions Prescriptions: Continued multivitamin with folic acid [Thera] 1 TABLET tablet 1 tab PO DAILY Cholecalciferol (Vitamin D3) 1,000 U 1,000 units PO DAILY cyanocobalamin (vitamin B-12) 1,000 MCG tablet, sublingual 1,000 mcg sublingual DAILY coenzyme Q10 50 MG tablet,chewable 200 mg PO DAILY Nitric Oxide 420 mg PO DAILY turmeric 400 mg capsule 400 mg PO DAILY elderberry fruit 200 mg capsule 200 mg PO DAILY lisinopril 5 mg tablet 10 mg PO DAILY cetirizine [24Hour Allergy] 10 mg tablet 10 mg PO DAILY Discontinued melatonin 3 mg Tablet 3 mg PO QHS PRN PRN (Reason: Insomnia) Qty: 0 0RF levofloxacin 750 mg Tablet 750 mg PO DAILY@0600 Qty: 0 0RF oxycodone 5 mg Tablet 5 mg PO Q6H PRN (Reason: pain (scale score 7-10)) 3 Days Qty: 12 0RF doxycycline monohydrate 100 mg capsule 100 mg PO BID Qty: 8 0RF Referrals / Follow Up: Taylor Zuniga DO [Primary Care Provider] - Disposition Disposition (needs filled in before D/C Order can be placed): Home Health Service
[2024-02-13] MEDS: Enoxaparin 40 MG/0.4 ML Syringe SC (09:36)
[2024-02-13] MEDS: Cholecalciferol (VIT D3) 25 MCG TABLET (1,000 UNITS) PO (09:37)
[2024-02-13] MEDS: Lisinopril 10 MG Tablet PO (09:37)
[2024-02-13] MEDS: Multivitamins,Therapeutic Tablet 1 TABLET PO (09:37)
[2024-02-13] MEDS: Cyanocobalamin 500 MCG Tablet 1000 MCG PO (09:38)
[2024-02-13] MEDS: Nystatin Powder 15gm Bottle 1 APPLIC TOPICAL ×2 (09:39→20:44)
[2024-02-13] MEDS: Menthol/Lanolin/Calamine/Znox 113 GM Tube 1 APPLIC TOPICAL ×2 (09:39→20:42)
[2024-02-13 14:56] VITALS: BP 132/51; PULSE 56; RESP 16; TEMP 36.4; O2SAT 99
[2024-02-13] MEDS: CETIRIZINE HCL 10 MG TABLET PO (16:35)
--- NOTE | 2024-02-13 17:18 | CASEMGMT ---
Social Work SW phoned [facility] to schedule cot transport for DC 02/15 at 1100, PCS form faxed. LIZ AguilarW
[2024-02-14] MEDS: Lisinopril 10 MG Tablet PO (08:15)
[2024-02-14] MEDS: Multivitamins,Therapeutic Tablet 1 TABLET PO (08:15)
[2024-02-14] MEDS: Enoxaparin 40 MG/0.4 ML Syringe SC (08:15)
[2024-02-14] MEDS: Polyethylene Glycol 3350 17 GM PACKET PO (08:15)
[2024-02-14] MEDS: Cholecalciferol (VIT D3) 25 MCG TABLET (1,000 UNITS) PO (08:15)
[2024-02-14] MEDS: Menthol/Lanolin/Calamine/Znox 113 GM Tube 1 APPLIC TOPICAL ×2 (08:16→20:26)
[2024-02-14] MEDS: Nystatin Powder 15gm Bottle 1 APPLIC TOPICAL ×2 (08:16→20:25)
[2024-02-14] MEDS: Cyanocobalamin 500 MCG Tablet 1000 MCG PO (08:28)
[2024-02-14 12:28] VITALS: BP 165/55; PULSE 62; RESP 16; TEMP 36.6; O2SAT 97
--- NOTE | 2024-02-14 13:28 | CASEMGMT ---
Social Work BIMS () and PHQ-2 () completed for MDS assessment. Tala Ruiz MSW HAT COPYIST
--- NOTE | 2024-02-14 14:22 | MDS.RN ---
Pain interview for mds complete.
[2024-02-14] MEDS: CETIRIZINE HCL 10 MG TABLET PO (17:19)
[2024-02-14 20:00] VITALS: PULSE 68; O2SAT 98
[2024-02-14] MEDS: Ammonium Lactate 225 gm Bottle 1 APPLIC TOPICAL (20:23)
[2024-02-14] MEDS: Petrolatum 33% Tube 1 APPLIC TOPICAL (20:23)
[2024-02-15 08:09] LABS: Absolute Lymphocyte Count 1.44 X10^3/uL (0.83-4.51); Absolute Neutrophil Count 2.1 X10^3/uL (2.0-7.7); Basophil# 0.03 X10^3/uL; Basophil% 0.7 % (0-1); Eosinophil# 0.28 X10^3/uL; Eosinophils% 6.2 % (0-5); Hemoglobin 11.5 g/dL (13.0-16.5); Lymphocyte # 1.44 X10^3/ul (0.83-4.51); Lymphocyte % 31.6 % (19-41); Mean Corp Hgb Conc 32.9 g/dL (32-36); Mean Corpuscular Hgb 31.3 pg (27.0-32.0); Mean Corpuscular Volume 95.1 fL (80-94); Mean Platelet Vol. 10.3 fl (6.2-12.0); Monocyte# 0.66 X10^3/uL; Monocyte% 14.5 % (0-10); NRBC Flagged by Analyzer 0 % (0-5); Neutrophil # 2.13 X10^3/uL (2.7-7.7); Neutrophil % 46.8 % (47-70); Platelet Count 209 K/mm3 (150-450); RBC Distribution Width CV 12.6 % (11.6-14.6); RBC Distribution Width SD 43.9 fl (35.1-43.9); Red Blood Count 3.68 M/mm3 (4.6-6.2); White Blood Count 4.6 K/mm3 (4.4-11.0)
[2024-02-15 08:35] LABS: Anion Gap 2 (5-15); BUN 21 mg/dL (7-18); BUN/Creat Ratio 62.1 RATIO (10-20); Chloride 108 mmol/L (98-107); Creatinine, Serum 0.34 mg/dL (0.70-1.30); EST Glomerular Filtration Rate 264 mL/min (>60); Est Glom Filt Rate - Afr Amer 319 mL/min (>60); Estimated Creatinine Clearance 63.12 ml/min; Glucose 90 mg/dL (74-106); Potassium 4.3 mmol/L (3.5-5.1); Sodium Level 139 mmol/L (136-145)
[2024-02-15 11:23] VITALS: BP 132/45; PULSE 63; RESP 16; TEMP 36.7; O2SAT 93
[2024-02-15] MEDS: Enoxaparin 40 MG/0.4 ML Syringe SC (11:26)
[2024-02-15] MEDS: Menthol/Lanolin/Calamine/Znox 113 GM Tube 1 APPLIC TOPICAL ×2 (11:26→21:21)
[2024-02-15] MEDS: Polyethylene Glycol 3350 17 GM PACKET PO (11:26)
[2024-02-15] MEDS: Multivitamins,Therapeutic Tablet 1 TABLET PO (11:26)
[2024-02-15] MEDS: Cyanocobalamin 500 MCG Tablet 1000 MCG PO (11:27)
[2024-02-15] MEDS: Nystatin Powder 15gm Bottle 1 APPLIC TOPICAL ×2 (11:27→21:21)
[2024-02-15] MEDS: Cholecalciferol (VIT D3) 25 MCG TABLET (1,000 UNITS) PO (11:27)
[2024-02-15] MEDS: Lisinopril 10 MG Tablet PO (11:27)
[2024-02-15] MEDS: CETIRIZINE HCL 10 MG TABLET PO (16:26)
[2024-02-15] MEDS: Petrolatum 33% Tube 1 APPLIC TOPICAL (21:20)
[2024-02-15] MEDS: Ammonium Lactate 225 gm Bottle 1 APPLIC TOPICAL (21:20)
[2024-02-16 08:37] VITALS: BP 146/52; PULSE 55; RESP 18; TEMP 36.5; O2SAT 96
--- NOTE | 2024-02-16 09:32 | NURSING ---
Patient refused AM meds, stated he will take them when he gets home. Patient also refused breakfast tray this AM, stated he will eat when he gets home.
== END 2024-02-16 09:30 | disposition home health service (06) | DRG 603 ==
PROVIDERS: Admitting Provider Internal Medicine; PCP Internal Medicine; Referring Provider Internal Medicine; Visit Provider Internal Medicine
DX: L03.115 Cellulitis of right lower limb (principal); G72.41 Inclusion body myositis [IBM]; I10 Essential (primary) hypertension; D64.9 Anemia, unspecified; I89.0 Lymphedema, not elsewhere classified; L28.0 Lichen simplex chronicus; B95.62 Methicillin resistant Staphylococcus aureus infection as the cause of diseases classified elsewhere; R13.10 Dysphagia, unspecified; B96.5 Pseudomonas (aeruginosa) (mallei) (pseudomallei) as the cause of diseases classified elsewhere; Z85.72 Personal history of non-Hodgkin lymphomas; Z79.899 Other long term (current) drug therapy
CPT/HCPCS: 36415; 71046; 74018; 80048; 82274; 85025; 87811; 92610; 97110; 97116; 97162; 97167; 97530; 97535; 97802

== ENCOUNTER → 2024-03-19 | Outpatient (CLI) | payer MEDICARE, OTHER, SELFPAY ==
[2024-03-19 11:11] LABS: Absolute Lymphocyte Count 1.58 X10^3/uL (0.83-4.51); Absolute Neutrophil Count 2.1 X10^3/uL (2.0-7.7); Basophil# 0.03 X10^3/uL; Basophil% 0.6 % (0-1); Eosinophil# 0.27 X10^3/uL; Eosinophils% 5.8 % (0-5); Hematocrit 38.5 % (40-54); Hemoglobin 12.5 g/dL (13.0-16.5); Lymphocyte # 1.58 X10^3/ul (0.83-4.51); Lymphocyte % 33.9 % (19-41); Mean Corp Hgb Conc 32.5 g/dL (32-36); Mean Corpuscular Hgb 30.1 pg (27.0-32.0); Mean Corpuscular Volume 92.8 fL (80-94); Mean Platelet Vol. 9.5 fl (6.2-12.0); Monocyte# 0.64 X10^3/uL; Monocyte% 13.7 % (0-10); NRBC Flagged by Analyzer 0 % (0-5); Neutrophil # 2.13 X10^3/uL (2.7-7.7); Neutrophil % 45.8 % (47-70); Platelet Count 231 K/mm3 (150-450); RBC Distribution Width CV 12.6 % (11.6-14.6); RBC Distribution Width SD 43.2 fl (35.1-43.9); Red Blood Count 4.15 M/mm3 (4.6-6.2); White Blood Count 4.7 K/mm3 (4.4-11.0)
[2024-03-19 11:20] LABS: AST(SGOT) 14 U/L (15-37); Alanine Aminotransfer ALT/SGPT 17 U/L (16-61); Albumin, Serum 3.4 g/dL (3.2-5.0); Alkaline Phosphatase 60 U/L (45-117); Anion Gap 4 (5-15); BUN 12 mg/dL (7-18); BUN/Creat Ratio 30.5 RATIO (10-20); Calcium,Total 9.4 mg/dL (8.5-10.1); Chloride 102 mmol/L (98-107); Creatinine, Serum 0.39 mg/dL (0.70-1.30); EST Glomerular Filtration Rate 222 mL/min (>60); Est Glom Filt Rate - Afr Amer 268 mL/min (>60); Globulin 3.4 g/dL (2.2-4.2); Glucose 96 mg/dL (74-106); Potassium 4.4 mmol/L (3.5-5.1); Protein, Total 6.8 g/dL (6.4-8.2); Sodium Level 136 mmol/L (136-145)
== END | disposition home or self-care (01) ==
LOC: LAB 08:35
PROVIDERS: PCP Internal Medicine; Visit Provider Internal Medicine
DX: E87.1 Hypo-osmolality and hyponatremia (principal); D64.9 Anemia, unspecified
CPT/HCPCS: 36415; 80053; 85025

== ENCOUNTER → 2024-06-19 | Outpatient (CLI) | payer MEDICARE, OTHER, SELFPAY ==
[2024-06-19 11:23] LABS: Absolute Lymphocyte Count 1.41 X10^3/uL (0.83-4.51); Absolute Neutrophil Count 1.6 X10^3/uL (2.0-7.7); Basophil# 0.02 X10^3/uL; Basophil% 0.5 % (0-1); Eosinophil# 0.23 X10^3/uL; Eosinophils% 5.9 % (0-5); Hematocrit 35.6 % (40-54); Hemoglobin 12.1 g/dL (13.0-16.5); Lymphocyte # 1.41 X10^3/ul (0.83-4.51); Lymphocyte % 36.2 % (19-41); Mean Corpuscular Hgb 31.2 pg (27.0-32.0); Mean Corpuscular Volume 91.8 fL (80-94); Mean Platelet Vol. 10.3 fl (6.2-12.0); Monocyte# 0.61 X10^3/uL; Monocyte% 15.6 % (0-10); NRBC Flagged by Analyzer 0 % (0-5); Neutrophil # 1.62 X10^3/uL (2.7-7.7); Neutrophil % 41.5 % (47-70); Platelet Count 176 K/mm3 (150-450); RBC Distribution Width SD 43.3 fl (35.1-43.9); Red Blood Count 3.88 M/mm3 (4.6-6.2); White Blood Count 3.9 K/mm3 (4.4-11.0)
[2024-06-19 11:49] LABS: Vitamin D,25 Hydroxy 57.9 ng/mL
[2024-06-19 12:04] LABS: ALB/GLOB Ratio 1.1 RATIO (0.9-2.4); AST(SGOT) 17 U/L (15-37); Alanine Aminotransfer ALT/SGPT 18 U/L (16-61); Albumin, Serum 3.5 g/dL (3.2-5.0); Alkaline Phosphatase 57 U/L (45-117); Anion Gap 4 (5-15); BUN 16 mg/dL (7-18); BUN/Creat Ratio 41.3 RATIO (10-20); Calcium,Total 9.1 mg/dL (8.5-10.1); Chloride 100 mmol/L (98-107); Creatinine, Serum 0.39 mg/dL (0.70-1.30); EST Glomerular Filtration Rate 225 mL/min (>60); Est Glom Filt Rate - Afr Amer 273 mL/min (>60); Globulin 3.3 g/dL (2.2-4.2); Glucose 90 mg/dL (74-106); Potassium 4.6 mmol/L (3.5-5.1); Protein, Total 6.8 g/dL (6.4-8.2); Sodium Level 133 mmol/L (136-145)
[2024-06-19 14:13] LABS: Hemoglobin A1c 5.2 % (3.8-5.6)
== END | disposition home or self-care (01) ==
LOC: LAB 08:49
PROVIDERS: PCP Internal Medicine; Visit Provider Internal Medicine
DX: I10 Essential (primary) hypertension (principal); E87.1 Hypo-osmolality and hyponatremia; E55.9 Vitamin D deficiency, unspecified; R73.01 Impaired fasting glucose; R60.9 Edema, unspecified
CPT/HCPCS: 36415; 80053; 82306; 83036; 84443; 85025

== ENCOUNTER → 2024-09-16 | Outpatient (CLI) | payer MEDICARE, OTHER, SELFPAY ==
[2024-09-16 10:56] LABS: Absolute Neutrophil Count 2.9 X10^3/uL (2.0-7.7); Basophil# 0.02 X10^3/uL; Basophil% 0.4 % (0-1); Eosinophil# 0.19 X10^3/uL; Eosinophils% 3.6 % (0-5); Hemoglobin 12.6 g/dL (13.0-16.5); Lymphocyte % 28.6 % (19-41); Mean Corp Hgb Conc 34.1 g/dL (32-36); Mean Corpuscular Hgb 32.2 pg (27.0-32.0); Mean Corpuscular Volume 94.6 fL (80-94); Mean Platelet Vol. 10.3 fl (6.2-12.0); Monocyte# 0.61 X10^3/uL; Monocyte% 11.6 % (0-10); NRBC Flagged by Analyzer 0 % (0-5); Neutrophil # 2.91 X10^3/uL (2.7-7.7); Neutrophil % 55.6 % (47-70); Platelet Count 181 K/mm3 (150-450); RBC Distribution Width CV 12.8 % (11.6-14.6); RBC Distribution Width SD 44.1 fl (35.1-43.9); Red Blood Count 3.91 M/mm3 (4.6-6.2); White Blood Count 5.2 K/mm3 (4.4-11.0)
[2024-09-16 11:41] LABS: ALB/GLOB Ratio 1.5 RATIO (0.9-2.4); AST(SGOT) 19 U/L (<=37); Alanine Aminotransfer ALT/SGPT 12 U/L (<=46); Alkaline Phosphatase 62 U/L (40-129); Anion Gap 8 (5-15); BUN 16 mg/dL (4-19); BUN/Creat Ratio 42.9 RATIO (10-20); Calcium,Total 9.6 mg/dL (7.6-11.0); Carbon Dioxide 27.9 mmol/L (21.0-32.0); Chloride 98 mmol/L (98-108); Creatinine, Serum 0.37 mg/dL (0.70-1.20); EST Glomerular Filtration Rate 109 (>60); Globulin 2.7 g/dL (2.2-4.2); Glucose 91 mg/dL (70-99); Potassium 4.5 mmol/L (3.3-5.1); Protein, Total 6.7 g/dL (5.9-8.4); Sodium Level 134 mmol/L (133-145); Total Bilirubin 0.45 mg/dL (0.00-1.30); Vitamin D,25 Hydroxy 52.3 ng/mL (30-100)
[2024-09-16 15:02] LABS: Hemoglobin A1c 5.1 % (<=5.6)
== END | disposition home or self-care (01) ==
LOC: LAB 08:46
PROVIDERS: PCP Internal Medicine; Visit Provider Internal Medicine
DX: I10 Essential (primary) hypertension (principal); D64.9 Anemia, unspecified; K59.09 Other constipation; R79.89 Other specified abnormal findings of blood chemistry; R73.01 Impaired fasting glucose
CPT/HCPCS: 36415; 80053; 82306; 83036; 84443; 85025

== ENCOUNTER → 2024-12-18 | Outpatient (CLI) | payer MEDICARE, OTHER, SELFPAY ==
[2024-12-18 11:06] LABS: Hematocrit 36.7 % (40-54); Hemoglobin 12.4 g/dL (13.0-16.5); Immature Granulocytes Count 0.010 X10^3/uL (0.0-0.0); Mean Corp Hgb Conc 33.8 g/dL (32-36); Mean Corpuscular Volume 94.1 fL (80-94); Mean Platelet Vol. 10.1 fl (6.2-12.0); NRBC Flagged by Analyzer 0 % (0-5); Platelet Count 196 K/mm3 (150-450); RBC Distribution Width CV 12.3 % (11.6-14.6); RBC Distribution Width SD 42.7 fl (35.1-43.9); Red Blood Count 3.90 M/mm3 (4.6-6.2); White Blood Count 3.9 K/mm3 (4.4-11.0)
[2024-12-18 11:52] LABS: AST(SGOT) 22 U/L (<=37); Alanine Aminotransfer ALT/SGPT 14 U/L (<=46); Albumin, Serum 4.0 g/dL (3.4-4.8); Alkaline Phosphatase 70 U/L (40-129); Anion Gap 10 (5-15); BUN 15 mg/dL (4-19); BUN/Creat Ratio 39.5 RATIO (10-20); Calcium,Total 9.4 mg/dL (7.6-11.0); Carbon Dioxide 25.8 mmol/L (21.0-32.0); Chloride 100 mmol/L (98-108); Globulin 2.6 g/dL (2.2-4.2); Glucose 91 mg/dL (70-99); Potassium 4.3 mmol/L (3.3-5.1); Vitamin D,25 Hydroxy 51.4 ng/mL (30-100)
== END | disposition home or self-care (01) ==
LOC: LAB 10:07
PROVIDERS: PCP Internal Medicine; Visit Provider Internal Medicine
DX: I10 Essential (primary) hypertension (principal); D64.9 Anemia, unspecified; E55.9 Vitamin D deficiency, unspecified; K59.09 Other constipation; R60.9 Edema, unspecified; R73.01 Impaired fasting glucose
CPT/HCPCS: 36415; 80053; 82306; 83036; 84443; 85025

== ENCOUNTER 2025-02-24 17:02 | Emergency (ER) | payer MEDICARE, OTHER, SELFPAY ==
[2025-02-24 17:04] VITALS: BP 189/74; PULSE 68; RESP 20; TEMP 36.8; O2SAT 98; BMI 24.5
--- NOTE | 2025-02-24 17:37 | CT_ITS ---
PROCEDURE: CT CHEST, ABD, PEL W/CONTRAST 02/24/2025 REASON FOR EXAM: ABDOMINAL PAIN, DIFFICULTY SWALLOWING TECHNIQUE: Chest, abdomen and pelvis CT with intravenous contrast. Coronal and Sagittal reconstruction series were provided. One or more dose reduction techniques were used (e.g., Automated exposure control, adjustment of the mA and/or kV according to patient size, use of iterative reconstruction technique. CONTRAST: Isovue-300 VOLUME: 90mL RADIATION DOSE SUMMARY: CTDlvol: 19 mGy DLP: 1737 mGycm FINDINGS: Examination of the lung parenchyma demonstrates no mass or consolidation in the left lung. Atelectasis at the right lung base. Large hernia identified which contains a significant portion of the stomach. The stomach is rather massively distended without bowel dilatation and this is concerning for gastric outlet obstruction, likely secondary to the hernia. No mediastinal mass. Normal aorta. No adenopathy. Liver, gallbladder and spleen unremarkable. No pancreatic or renal masses. Aortic calcification without aneurysm. No free air or free fluid. CT/CT Chest, Abd, Pel w/Contrast IMPRESSION: The examination is concerning for gastric outlet obstruction secondary to herni ation of the gastric body and possibly a portion of the GE junction into the mediastinum. The gastroesophageal junction is belo w the diaphragm. Gastric decompression recommended. Reading Location: [facility]
--- NOTE | 2025-02-24 17:38 | EDS_ITS ---
HPI History of Present Illness Chief Complaint: Nausea/Vomiting Detail of Chief Complaint: Difficulty swallowing and abdominal pain Informant: patient and family Narrative Narrative: Patient presents to the emergency department with complaint difficulty swallowing and abdominal pain.'s symptoms started last evening after dinner. He ate chicken with gravy and mashed potatoes. 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 Typically has to have his food cut up very small. Patient then apparently developed some abdominal discomfort and complained of difficulty swallowing and unable to swallow water. He was spitting up mostly phlegm. He has not had any diarrhea. No blood in his stool or black tarry stool. [facility] Medical History (Updated 02/24/25 @ 21:[address] Zee Alonso, DO) History of non-Hodgkin's lymphoma Lichenification Lymphedema Inclusion body myositis Scarlet fever Cancer CYST EXCISION RIGHT BREAST Osteopenia Hypertension Anemia Home Medications ?Medication ?Instructions ?Recorded ?Last Taken ?Type Cholecalciferol (Vitamin D3) 1,000 units PO DAILY supp lement 07/31/16 Unknown History multivitamin with folic acid 400 1 tab PO DAILY supple ment 07/31/16 Unknown History mcg tablet (Thera) cyanocobalamin (vitamin B-12) 1,000 mcg sublingual JEREMY LY 12/04/17 Unknown History 1,000 mcg sublingual tablet supplement Nitric Oxide 420 mg PO DAILY supplement 0 12/04/18 Unknown History coenzyme Q10 50 mg chewable tablet 200 mg PO DAILY sup plement 12/04/18 Unknown History elderberry fruit 200 mg capsule 200 mg PO DAILY supple ment 12/17/22 Unknown History turmeric 400 mg capsule 400 mg PO DAILY supplement 0 12/17/22 Unknown History cetirizine 10 mg tablet (24Hour 10 mg PO DAILY allergi es 01/29/24 02/01/24 History Allergy) lisinopril 5 mg tablet 10 mg PO DAILY blood pressur e 01/29/24 02/01/24 History Allergy/AdvReac Type Severity Reaction Status Date / Time bacitracin (From Neosporin AdvReac Mild Itching Verified 02/24/25 17:08 ([id number])) neomycin (From Neosporin AdvReac Mild Itching Verified 02/24/25 17:08 ([id number])) polymyxin B (From Neosporin AdvReac Mild Itching Verified 02/24/25 17:08 ([id number])) adhesive tape AdvReac Unknown Verified 02/24/25 17:08 Family History Father Colon cancer Mother Gastric cancer Surgical History History of cataract extraction Social History Smoking Status: Never smoker ROS ROS ED Review of Systems ROS Unobtainable: other Constitutional Constitutional ED: Reports lethargy; Denies chills, fever(s), sweats or weight loss Eyes Eyes: Denies blurry vision, change in vision or diplopia ENT ENT ED: Denies rhinorrhea or sore throat Cardiovascular Cardiovascular: Denies chest pain, orthopnea or racing heartbeat Respiratory/Chest Respiratory/Chest: Denies cough, dyspnea, dyspnea on exertion, orthopnea or sputum Gastrointestinal Gastrointestinal: Reports abdominal pain, nausea, vomiting and other Details: Difficulty swallowing ; Denies diarrhea Genitourinary Genitourinary ED: Denies dysuria, hematuria or urinary frequency Musculoskeletal Musculoskeletal: Denies arthralgias, back pain, myalgias or neck pain Integumentary Denies abscess, Abrasions or rash Neurologic Neurologic: Denies headache(s) or weakness Psychiatric Psychiatric: Denies anxiety, depression or suicidal thoughts Endocrine Endocrinology: Denies polydipsia, polyphagia or polyuria Hematologic/Lymphatic Hematologic/Lymphatic: Denies easy bleeding, easy bruising or lymphadenopathy Allergic/Immunologic Allergic/Immunologic ED: Denies mouth swelling, tongue swelling or urticaria EXAM Physical Exam Const Vital Signs: 02/24/25 17:04 02/24/25 19:03 02/24/25 19:56 Temperature 98.3 F Temperature Source Oral Pulse Rate 68 70 Respiratory Rate 20 H 24 H Blood Pressure 189/74 H 208/184 H 173/56 H Blood Pressure Mean 112 192 95 Pulse Ox 98 100 Oxygen Delivery Method Room Air Room Air 02/24/25 21:00 Temperature Temperature Source Pulse Rate 60 Respiratory Rate 16 Blood Pressure 169/59 H Blood Pressure Mean 95 Pulse Ox 97 Oxygen Delivery Method Room Air Positive well nourished and well developed General Appearance ED: well developed and NAD HEENT Reports TM's clear and moist mucous membranes normocephalic and atraumatic; Negative for trauma or tenderness Tympanic Membrane ED: Yes TM's clear Eyes PERRL and EOMs intact bilaterally General Eye ED: Negative for pale conjunctiva or scleral icterus Neck no lymphadenopathy, supple and no JVD General: Negative for tenderness Chest Wall inspection of chest normal and palpation of chest normal Chest: Negative for tenderness Resp normal respiratory effort and clear to auscultation bilaterally Effort and Inspection: Negative for respiratory distress or pain with movement Auscultation: Negative for rhonchi, wheezes or diminished lung sounds Cardio regular rate, regular rhythm, S1 normal heart sound, S2 normal heart sound and no murmurs Peripheral Pulses: pulses 2+ throughout GI normal to inspection, nondistended, normoactive bowel sounds, soft to palpation, non-distended and no masses GI Narrative: Tenderness palpation over the epigastric region with some mild guarding. There is no rebound, rigidity, or perio signs. No mass palpated. Back/Spine no CVA tenderness and no thoracic nor lumbar tenderness Extremity normal to inspection General Extremety ED: Negative for edema General Extremity: Negative for edema Neuro oriented x3, CN's II-XII intact bilaterally, no sensory deficits noted and gait normal Sensorium / Orientation: awake, alert, oriented to person, oriented to place and oriented to time Motor Exam: strength 5/5 throughout and strength abnormal Psych mental status grossly normal Skin no rashes or lesions noted and no wounds MDM MDM MDM Narrative Medical decision making narrative: Patient presents with vomiting and abdominal discomfort. 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 IV line established. He was m edicated with normal saline. CBC with differential white count 9.3 with hemoglobin 14 and platelet count of 247. Chemistries unremarkable. LFTs unremarkable. CT scan of the chest abdomen pelvis obtained noted findings consistent with gastric outlet obstruction secondary to herniation of the gastric body and possibly portion of the GE junction into the mediastinum. The gastroesophageal junction is below the diaphragm. Gastric decompression recommended. Initially discussed case with Dr. Jasso who is on-call for general surgery. She recommended we place NG tube to suction and decompress. I was asked to repeat the CT scan after decompression of the stomach and patient continues to have small part of the duodenum within the hernia concern for obstruction. General surgeon asked that we transfer patient to tertiary care center for definitive care. Family would like to go to [facility]. I discussed case with [facility] transfer line who discussed the case with their general surgeon and their emergency room physician and they accepted transfer of patient to their emergency department for evaluation and definitive care. Lab Data Attestation: I reviewed the patient's lab results. Labs: Laboratory Results - last 24 hr 02/24/25 17:48 WBC 9.3 RBC 4.57 L Hgb 14.4 Hct 41.8 MCV 91.5 MCH 31.5 MCHC 34.4 RDW Std Deviation 41.1 RDW Coeff of Nils 12.4 Plt Count 247 MPV 10.0 Immature Gran % (Auto) 0.400 Neut % (Auto) 86.5 H Lymph % (Auto) 4.6 L Treasure % (Auto) 8.4 Eos % (Auto) 0.0 Baso % (Auto) 0.1 Absolute Neuts (auto) 8.0 H Absolute Lymphs (auto) 0.43 L Nucleated RBC % 0 Sodium 142 Potassium 3.5 Chloride 93 L Carbon Dioxide 36.6 H Anion Gap 13 BUN 18 Creatinine 0.69 L Estim Creat Clear Calc 61.97 Est GFR (MDRD) Non-Af 90 BUN/Creatinine Ratio 26.8 H Glucose 190 H Calcium 10.4 Total Bilirubin 0.57 AST 22 ALT 13 Alkaline Phosphatase 68 Total Protein 7.9 Albumin 4.7 Globulin 3.2 Albumin/Globulin Ratio 1.4 Radiography Diagnostic Testing: Clinical Impression(s) from Imaging Studies Chest/Abdomen/Pelvis CT 02/24/25 17:37 IMPRESSION: The examination is concerning for gastric outlet obstruction secondary to herniation of the gastric body and possibly a portion of the GE junction into the mediastinum. The gastroesophageal junction is below the diaphragm. Gastric decompression recommended. Reading [facility] 02/24/25 18:25 IMPRESSION: Enteric tube terminates appropriately within the stomach. Reading Location: [id number] Abdomen/Pelvis CT 02/24/25 20:30 IMPRESSION: Redemonstrated moderate-large hiatal hernia which contains a herniated short- segment of the proximal duodenum, which is at risk for obstruction. Decreased distention of the stomach and herniated duodenal segment post enteric tube placement since prior exam. No other acute findings. Reading Location: [id number] Critical Care Time Critical care time (excluding procedures): 30-74 minutes, Including time spent:, Discussing w/Patient &/or Family/Bottom Filler, Discussing w/Consultants, Arranging Admission or Transfer, Performing Direct Patient Care at Bedside and - (30 minutes) Discharge Plan Triage Chief Complaint: Nausea/Vomiting ED Provider: Zee Alonso Dx/Rx/DC Orders Clinical Impression: Abdominal pain, Gastric outlet obstruction Prescriptions: No Action multivitamin with folic acid [Thera] 1 TABLET tablet 1 tab PO DAILY Cholecalciferol (Vitamin D3) 1,000 U 1,000 units PO DAILY cyanocobalamin (vitamin B-12) 1,000 MCG tablet, sublingual 1,000 mcg sublingual DAILY coenzyme Q10 50 MG tablet,chewable 200 mg PO DAILY Nitric Oxide 420 mg PO DAILY turmeric 400 mg capsule 400 mg PO DAILY elderberry fruit 200 mg capsule 200 mg PO DAILY lisinopril 5 mg tablet 10 mg PO DAILY cetirizine [24Hour Allergy] 10 mg tablet 10 mg PO DAILY Primary Care Provider: Taylor Zuniga Referrals: Taylor Zuniga DO [Primary Care Provider, Internal Medicine] Print Language: Sami Disposition Disposition: DC/Tx to Another Type of HCF
[2025-02-24] MEDS: 0.9% Normal Saline (1000mL) 1,000 ML 150 ML IV (17:53)
[2025-02-24 18:12] LABS: Hematocrit 41.8 % (40-54); Hemoglobin 14.4 g/dL (13.0-16.5); Immature Granulocytes Count 0.040 X10^3/uL (0.0-0.0); Mean Corp Hgb Conc 34.4 g/dL (32-36); Mean Corpuscular Volume 91.5 fL (80-94); Mean Platelet Vol. 10.0 fl (6.2-12.0); NRBC Flagged by Analyzer 0 % (0-5); POSITIVE DIFFERENTIAL YES; Platelet Count 247 K/mm3 (150-450); RBC Distribution Width CV 12.4 % (11.6-14.6); RBC Distribution Width SD 41.1 fl (35.1-43.9); Red Blood Count 4.57 M/mm3 (4.6-6.2); White Blood Count 9.3 K/mm3 (4.4-11.0)
[2025-02-24 18:16] LABS: AST(SGOT) 22 U/L (<=37); Alanine Aminotransfer ALT/SGPT 13 U/L (<=46); Albumin, Serum 4.7 g/dL (3.4-4.8); Alkaline Phosphatase 68 U/L (40-129); Anion Gap 13 (5-15); BUN 18 mg/dL (4-19); BUN/Creat Ratio 26.8 RATIO (10-20); Calcium,Total 10.4 mg/dL (7.6-11.0); Carbon Dioxide 36.6 mmol/L (21.0-32.0); Chloride 93 mmol/L (98-108); Estimated Creatinine Clearance 61.97 ml/min (50-250); Globulin 3.2 g/dL (2.2-4.2); Glucose 190 mg/dL (70-99); Potassium 3.5 mmol/L (3.3-5.1)
--- NOTE | 2025-02-24 18:25 | RAD_ITS ---
PROCEDURE: ABDOMEN SINGLE VIEW (PORTABLE) 02/24/2025 REASON FOR EXAM: NG INSERTION TECHNIQUE: Procedure Code: RADABD_P Modality: DX Procedure: ABDOMEN SINGLE VIEW (PORTABLE) COMPARISON: None. FINDINGS: Enteric tube courses midline, side port/distal tip terminating within the left upper quadrant in the expected location of the stomach. No dilated bowel loops in the upper abdomen. No discernible free air. Excreted IV contrast in the renal collecting systems. Mild bibasilar subsegmental atelectasis. Degenerative changes of the spine. RAD/Abdomen Single View (Portable) IMPRESSION: Enteric tube terminates appropriately within the stomach. Reading Location: [id number]
--- OUTSIDE RECORDS SUMMARY | 2025-02-24 18:25 | XMS RPT_ITS | CCD ---
Author Organization [facility] Care Team Providers Care Assisted Living Home Director Name Role Phone Fast DO, Taylor A Attending Unavailable Fast DO, Taylor A Consulting Unavailable Fast DO, Taylor A Unavailable Manchak BLOW MOLD OPERATOR, Tere Unavailable Unavailable Unavailable Unavailable Fast DO, Dr. Vazquez Primary Care Provider [phone] Fast DO, Dr. Vazquez Attending Provider [phone] Fast DO, Dr. Vazquez Primary Care Provider [phone] Fast DO, Dr. Vazquez Attending Provider [phone] HernandezAlishage Attending Unavailable Hernandez, Lacy Admitting Unavailable Hernandez, Lacy Consulting Unavailable Fast, Taylor Primary Care Unavailable Fast, Taylor Attending Unavailable Fast, Taylor Primary Care Unavailable Fast, Taylor Attending Unavailable Fast, Taylor Primary Care Unavailable Fast, Taylor Attending Unavailable Fast, Taylor Primary Care Unavailable Fast, Taylor Attending Unavailable Fast, Taylro Primary Care Unavailable Hernandez, Lacy Admitting Unavailable Hernandez, Lacy Consulting Unavailable Jopplorri, Chip Attending Unavailable Fast, Taylor Primary Care Unavailable Fast, Taylor Primary Care Unavailable Sementi, Kelly Mcfarlane Admitting Unavaila ble Sementi, Kelly Mcfarlane Attending Unavaila ble Sementi, Kelly Mcfarlane Referring Unavaila ble Fast, Taylor Primary Care Unavailable Sementi, Senia Admitting Unavaila ble Sementi, Senia Consulting Unavaila ble Sementi, Senia Attending Unavaila ble Sementi, Senia Referring Unavaila ble Hernandez, Lacy Admitting Unavailable Fast, Taylor Primary Care Unavailable Hernandez, Lacy Consulting Unavailable Jopplorri, Chip Attending Unavailable Jopplorri Chip Consulting Unavailable Allergies Allergy Classification Reported Allergen(s) Allergy Type Date of Onset Reaction(s) Facility (14 sources) bacitracin / neomycin / polymyxin b Drug Allergy [facility] Work Phone: Comment on above: rash (14 sources) Latex; Translations: [Latex] Allergy to substance (finding) [facility] Work Phone: Comment on above: and bandaids (9 sources) Adhesive Tape; Translations: [adhesive tape] Propensity to adverse reactions [address] [facility] (8 sources) Bacitracin Drug Allergy [address] [facility] (8 sources) Neomycin Drug Allergy [address] [facility] (8 sources) Polymyxin B Drug Allergy [address] [facility] (1 source) Bacitracin Drug Allergy [address] [facility] (1 source) Neomycin Drug Allergy [address] [facility] (1 source) polymyxin B Drug allergy (disorder) [address] [facility] Medications Current Medications Medication Drug Class(es) Dates Sig (Normalized) Sig (Original) cetirizine hydrochloride 10 mg oral tablet (2 sources) Histamine-1 Receptor Antagonist Start: 01-29-2024 take 1 tablet by mouth once daily Cetirizine (24hour Allergy) 10 mg tablet Active 10 mg PO DAILY January 29, 2024 12:00am allergies cholecalciferol 1000 unt extended release oral capsule (20 sources) Vitamin D Start: 07-31-2016 take 1000 [IU] by mouth once daily Cholecalciferol (Vitamin D3) 1000 U Active 1000 U PO DAILY July 31, 2016 12:00am supplement take 1 tablet by mouth once pato y Vitamin D3 125 mcg (5,000 unit) oral tablet 1 qd (125 mcg (5,000 uni) Active elderberry fruit 200 mg oral capsule (7 sources) Start: 12-17-2022 take 1 capsule by mouth once daily Elderberry Fruit 200 mg capsule Active 200 mg PO DAILY December 17, 2022 12:00am supplement lisinopril 5 mg oral tablet (20 sources) Angiotensin Converting Enzyme Inhibitor Start: 01-29-2024 take 2 tablets by mouth once daily Lisinopril 5 mg tablet Active 10 mg PO DAILY January 29, 2024 12:00am blood pressure Start: 02-12-2023 take 2 tablets by mo uth once daily lisinopriL 5 mg oral tablet 2 (two) tablet qd for 90 days Quantity: 180 {Tablet} Refills: 3 Ordered: 12-Feb-2023 Fast DO, Taylor A Fast DO, Taylor A Start : 12-Feb-2023 Active Comments: he has dysphagia and doesnt want the larger pill Start: 01-15-2023 take 2 tablets by mo ut once daily lisinopriL 5 mg oral tablet 2 (two) tablet qd for 90 days Quantity: 180 {Tablet} Refills: 3 Ordered: 15-Jan-2023 Fast DO, Taylor A Fast DO, Taylor A Start : 15-Jan-2023 Active Comments: he has dysphagia and doesnt want the larger pill Start: 12-25-2022 take 2 tablets by mo [facility] once daily lisinopriL 5 mg oral tablet 2 (two) tablet qd for 0 days Quantity: 180 {Tablet} Refills: 3 Ordered: 25-Dec-2022 Fast DO, Taylor A Fast DO, Taylor A Start : 25-Dec-2022 Active Comments: he has dysphagia and doesnt want the larger pill Start: 03-29-2016 End: 01-29-2024 take 5 mg by mouth once daily Lisinopril 10 mg tablet Discontinued 5 mg PO DAILY March 29, 2016 1:00am January 29, 2024 2:54pm Start: 03-29-2016 take 5 mg by mouth once daily Lisinopril Active 5 MG PO DAILY March 29, 2016 1:00am take 1 tablet by evita once daily lisinopriL 5 mg oral tablet 1 qd (5 mg) Active Comment on above: he has dysphagia and doesnt want the larger pill Mail order. Multivitamin With Folic Acid (Multivitamin) 1 TABLET tablet (6 sources) Start: 7 take 1 tablet by mouth once daily Multivitamin With Folic Acid (Multivitamin) 1 TABLET tablet Active 1 TABLET PO DAILY July 30, 2016 11:00pm Start: 07-31-2016 take 1 tablet by evita th once daily Multivitamin With Folic Acid (Multivitamin) 1 TABLET tablet Active 1 TABLET PO DAILY July 31, 2016 12:00am Multivitamin With Folic Acid (Thera) 1 TABLET tablet (2 sources) Start: 07-31-2016 take 1 tablet by mouth once daily Multivitamin With Folic Acid (Thera) 1 TABLET tablet Active 1 {tbl} PO DAILY July 31, 2016 12:00am supplement Start: 07-31-2016 take 1 tablet by evita th once daily Multivitamin With Folic Acid (Thera) 1 TABLET tablet Active 1 {tbl} PO DAILY July 31, 2016 12:00am Nitric Oxide (8 sources) Vasodilator Start: 12-04-2018 take 420 mg by mouth once daily Nitric Oxide Active 420 mg PO DAILY December 04, 2018 12:00am supplement Start: 12-04-2018 take 420 mg by mouth once pato y Nitric Oxide Active 420 mg PO DAILY December 04, 2018 12:00am Start: 12-04-2018 take 420 mg by mouth once pato y Nitric Oxide Active 420 MG PO DAILY December 03, 2018 11:00pm Start: 12-04-2018 take 420 mg by mouth once pato y Nitric Oxide Active 420 MG PO DAILY December 04, 2018 12:00am Turmeric extract (7 sources) Start: 12-17-2022 take 1 capsule by mo uth once daily Turmeric 400 mg capsule Active 400 mg PO DAILY December 17, 2022 12:00am supplement Start: 12-17-2022 take 1 capsule by mo uth once daily Turmeric 400 mg capsule Active 400 mg PO DAILY December 17, 2022 12:00am Start: 12-17-2022 take 400 mg by mouth once pato y Turmeric Active 400 MG PO DAILY December 16, 2022 11:00pm Start: 12-17-2022 take 400 mg by mouth once pato y Turmeric Active 400 MG PO DAILY December 17, 2022 12:00am ubidecarenone 50 mg chewable tablet (8 sources) Start: 12-04-2018 take 10 tablets by mouth once daily Coenzyme Q10 50 MG tablet,chewable Active 200 mg PO DAILY December 04, 2018 12:00am supplement vitamin b12 1 mg sublingual tablet (8 sources) Vitamin B12 Start: 12-04-2017 take 1 tablet under the tongue once daily Cyanocobalamin (Vitamin B-12) 1,000 MCG tablet, sublingual Active 1000 ug SL DAILY December 04, 2017 12:00am supplement Completed/Discontinued Medications Medication Drug Class(es) Dates Sig (Normalized) Sig (Original) amoxicillin 120 mg/ml / clavulanate 8.58 mg/ml oral suspension (16 sources) Penicillin-class Antibacterial Start: 01-29-2024 End: 02-01-2024 take 1 mL by mouth twice daily Amoxicillin-Pot Clavulanate 600-42.9 mg/5 mL suspension for reconstitution Discontinued 7.3 mL PO TWICE A DAY January 29, 2024 12:00am February 01, 2024 2:57pm Start: 08-23-2022 End: 09-02-2022 take 1 tablet by mouth twice daily amoxicillin-pot clavulanate 875-125 mg oral tablet 1 (one) tablet bid for 10 days Quantity: 20 {Tablet} Refills: 0 Ordered: 23-Aug-2022 Keithclifford Prudence JORGEsea Start : 23-Aug-2022 End : 02-Sep-2022 Inactive Comments: patient will need to crush pills, he cannot swallow pills whole Comment on above: patient will need to crush pills, he cannot swallow pills whole CoQ10 SG 100 100 mg-100 unit capsule (oral) (14 sources) take 2 capsules by mouth once daily CoQ10 SG 100 100 mg-100 unit capsule (oral) 2 qd (100-100 mg-unit) Active doxycycline monohydrate 100 mg oral capsule (2 sources) Tetracycline-class Drug Start: End: take 1 capsule by mouth twice daily Doxycycline Monohydrate 100 mg capsule Discontinued 100 mg PO TWICE A DAY 8 0 February 01, 2024 12:00am February 12, 2024 6:51pm infection levoFLOXacin 750 mg oral tablet (2 sources) Quinolone Antimicrobial Start: End: take 1 tablet by mouth once daily Levofloxacin 750 mg Tablet Discontinued 750 mg PO DAILY@0600 0 0 February 01, 2024 12:00am February 12, 2024 6:51pm infection mecobalamin 1 mg sublingual tablet (14 sources) take 1 tablet under the tongue once daily mecobalamin (vitamin B12) 1,000 mcg disintegrating tablet,sublingual 1 qd (1,000 mcg) Active melatonin 3 mg oral tablet (2 sources) Start: End: take 1 tablet by mouth at bedtime as needed Melatonin 3 mg Tablet Discontinued 3 mg PO AT BEDTIME NEEDED as needed for Insomnia 0 0 February 01, 2024 12:00am February 12, 2024 6:52pm oxyCODONE hydrochloride 5 mg oral tablet (2 sources) Opioid Agonist Start: End: take 1 tablet by mouth every six hours as needed for pain Oxycodone 5 mg Tablet Discontinued 5 mg PO EVERY 6 HOURS as needed for pain (scale score 7-10) 12 3 0 February 01, 2024 February 12, 2024 6:52pm Cellulitis of right lower extremity Cellulitis of right lower limb Problems Active Problems Problem Classification Problem Date Documented Da te Episodic/Chronic Abdominal hernia (20 sources) Hiatal hernia; Translations: [Hiatal hernia] 08-22-2022 Episodic Comment on above: chronic stable-howie nue present regimen Deficiency and other anemia (2 sources) Anemia; Translations: [Anemia, unspecified] 02-02-2024 Episodic Comment on above: New since November 2023. Normochromic normocytic with a normal RDW Diabetes mellitus without complication (10 sources) Hyperglycemia; Translations: [Elevated fasting blood sugar] 12-25-2022 Episodic E Codes: Fall (7 sources) Fall; Translations: [Unspecified fall, initial encounter] 12-17-2022 Episodic Essential hypertension (20 sources) Hypertensive disorder; Translations: [Hypertension] Onset: 12-25-2024 08-22-2022 Chronic Comment on above: bp is bit high will have them monitor and see what numbers look like watch salt get bmp i n month Non-Hodgkin`s lymphoma (14 sources) Non-Hodgkin's lymphoma (clinical); Translations: [Non Hodgkin's lymphoma] 08-22-2022 Chronic Comment on above: diagnosed 2007 had c hemo radiation and cure by 2008 Non-Hodgkin`s lymphoma (8 sources) History of non-Hodgkins lymphoma; Translations: [Personal history of non-Hodgkin lymphomas] 12-04-2017 Episodic Open wounds of head; neck; and trunk (7 sources) Scalp laceration; Translations: [Laceration without foreign body of scalp, initial encounter] 12-17-2022 Episodic Other and unspecified benign neoplasm (20 sources) Polyp of colon; Translations: [Colon polyps] 08-22-2022 Episodic Comment on above: he has strong family hisotry we discussed whenther he feels he could do colonsoocpy and he cant even transfer he doesnt think he can handle it Other bone disease and musculoskeletal deformities (20 sources) Osteopenia; Translations: [Osteopenia] 08-22-2022 Episodic Other diseases of veins and lymphatics (2 sources) Lymphedema; Translations: [Lymphedema, not elsewhere classified] 02-02-2024 Chronic Other diseases of veins and lymphatics (1 source) Lymphedema, not elsewhere classified; Translations: [Lymphedema, not elsewhere classified] Onset: 02-04-2024 Chronic Other gastrointestinal disorders (20 sources) Chronic constipation; Translations: [Chronic constipation] 08-22-2022 Episodic Comment on above: water miralax has he lped good with miralax Other gastrointestinal disorders (20 sources) Oropharyngeal dysphagia; Translations: [Oropharyngeal dysphagia] 08-22-2022 Episodic Comment on above: due to myositis - moser d swallow study 2018- recommended mechanical soft textured thin liquid with right head tilt with solids - reduced bolus volume liquid chaser and seated at90- try to have speech therapy reeval unfortunately will p rogress he not aspirating at this point wll monitor Other inflammatory condition of skin (2 sources) Lichenification of skin; 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 Comment on above: progressive- i dont believe at this point he will benefit from therapy but did discuss with dysphagia needs to consider may need peg tube at some pointdiagnosed by muscle biopsy at [facility] 1995 had vns and therapy into assess and do all they coulddiagnosed by muscle biopsy at [facility] 1995 Other nervous system disorders (1 source) 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]; 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-2024 Chronic Other screening for suspected conditions (not mental disorders or infectious disease) (20 sources) Patient encounter status; Translations: [Screening for prostate cancer] 08-22-2022 Episodic Other upper respiratory disease (10 sources) Gustatory rhinitis; 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 Comment on above: nsaacort aqua Residual codes; unclassified (20 sources) Dependent edema; Translations: [Dependent edema] 08-22-2022 Episodic Comment on above: improved try to keep elevated wrapped watchs salt Unclassified (20 sources) Past or Other Problems Problem Classification Problem Date Documented Da te Episodic/Chronic Deficiency and other anemia (1 source) Anemia, unspecified; Translations: [Anemia, unspecified] Onset: 02-04-2024 Episodic Fluid and electrolyte disorders (3 sources) Acute hyponatremia; Translations: [Hypo-osmolality and hyponatremia] Onset: 04-15-2024 02-09-2024 Episodic Malaise and fatigue (20 sources) Asthenia; Translations: [Weakness] Onset: 02-04-2024 08-22-2022 Episodic Other inflammatory condition of skin (1 source) Lichen simplex chronicus; 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] Onset: 02-04-2024 Episodic Skin and subcutaneous tissue infections (20 sources) Cellulitis of right lower limb; Translations: [Cellulitis of leg, right] Onset: 02-04-2024 Resolved: 12-25-2022 08-23-2022 Episodic Comment on above: going to have visiti nurse go do wound care- draw labs and do Iv rocephin 2 grams qd for 5 days- elevate legs we discussed importance and compression- Due to Pseudomonas a eruginosa, Citrobacter koseri and MRSA Unclassified (8 sources) CYST EXCISION RIGHT BREAST 11-25-2021 Results Test Name Value Interpretation Reference Range Facility Absolute lymphocyte countOrd ered By: Taylor Zuniga on 12-18-2024 Lymphocytes Auto (Unsp spec) [#/Vol] 1.65 10*3/uL 0.83-4.[address] [facility] Absolute neutrophil countOrd ered By: Taylor on 12-18-2024 Neutrophils (Bld) [#/Vol] 1.4 10*3/uL Low 2.0-7.[address] [facility] Anion gap in Serum or Plasma Ordered By: Taylor Zuniga on 12-18-2024 Anion gap [Moles/Vol] 10 mmol/L 5-15 [facility] Automated lymphocyte count a s percentage of total leukocytesOrdered By: Taylor Fast on 12-18-2024 Lymphocytes/100 WBC Auto (Unsp spec) 42.4 % High 19-[address] [facility] BUN/creatinine ratioOrdered By: Taylor Fast on 12-18-2024 Urea nitrogen/Creatinine [Mass ratio] 39.5 mg/mg High 10-[address] [facility] Basophil percentageOrdered B y: Taylor Fast on 12-18-2024 Basophils/100 WBC (Bld) 0.5 % 0-1 [facility] Bilirubin, totalOrdered By: Taylor Fast on 12-18-2024 Bilirubin [Mass/Vol] 0.44 mg/dL 0.00-1.30 [facility] CBC W/Diff, Automatedon 12-05 Absolute Lymph 1.65 X10 3/uL Normal 0.83-4.[address] [facility] Comment on above: Performed By: #### L 100.0100, L506.1000, L500.4050, [id number], L501.9985 #### [facility] [address] [place], [address] Absolute Neut 1.4 X10 3/uL Low 2.0-7.[address] [facility] Comment on above: Performed By: #### L 100.0100, L506.1000, L500.4050, [id number], L501.9985 #### [facility] [address] [place], [address] Basophils/100 WBC (Bld) 0.5 % Normal 0-1 [facility] Comment on above: Performed By: #### L 100.0100, L506.1000, L500.4050, [id number], [id number] #### [facility] [address] [place], [address] Eosinophils/100 WBC (Bld) 4.1 % Normal 0-[address] [facility] Comment on above: Performed By: #### L 100.0100, L506.1000, L500.4050, [id number], L501.9985 #### [facility] [address] [place], [address] Erythrocyte distribution width (RBC) [Ratio] 12.3 % Normal 11.6-14.[address] [facility] Comment on above: Performed By: #### L 100.0100, L506.1000, L500.4050, [id number], L501.9985 #### [facility] [address] [place], [address] Hematocrit (Bld) [Volume fraction] 36.7 % Low 40-[address] [facility] Comment on above: Performed By: #### L 100.0100, L506.1000, L500.4050, [id number], L501.9985 #### [facility] [address] [place], [address] Hemoglobin (Bld) [Mass/Vol] 12.4 g/dL Low 13.0-16.[address] [facility] Comment on above: Performed By: #### L 100.0100, L506.1000, L500.4050, [id number], L501.9985 #### [facility] [address] [place], [address] IG% 0.300 Normal 0.0-0.[address] [facility] Comment on above: Result Comment: IG% - Immature Granulocytes (promyelocytes, myelocytes and metamyelocytes) > 1% indicates that a LEFT SHIFT is Present. Performed By: #### L 100.0100, L506.1000, L500.4050, L501.9520, L501.9985 #### [facility] [address] [place], [address] Lymphocytes/100 WBC (Bld) 42.4 % High 19-[address] [facility] Comment on above: Performed By: #### L 100.0100, L506.1000, L500.4050, [id number], L501.9985 #### [facility] [address] [place], [address] MCH (RBC) [Entitic mass] 31.8 pg Normal 27.0-32.[address] [facility] Comment on above: Performed By: #### L 100.0100, L506.1000, L500.4050, [id number], L501.9985 #### [facility] [address] [place], [address] MCHC (RBC) [Mass/Vol] 33.8 g/dL Normal 32-36 [facility] Comment on above: Performed By: #### L 100.0100, L506.1000, L500.4050, L501.9520, L501.9985 #### [facility] [address] [place], [address] MCV (RBC) [Entitic vol] 94.1 fL High 80-94 [facility] Comment on above: Performed By: #### L 100.0100, L506.1000, L500.4050, [id number], L501.9985 #### [facility] [address] [place], [address] Monocytes/100 WBC (Bld) 16.5 % High 0-10 [facility] Comment on above: Performed By: #### L 100.0100, L506.1000, L500.4050, [id number], L501.9985 #### [facility] [address] [place], [address] Neutrophils/100 WBC (Bld) 36.2 % Low 47-[address] [facility] Comment on above: Performed By: #### L 100.0100, L506.1000, L500.4050, L501.9520, L501.9985 #### [facility] [address] [place], [address] Nucleated RBC (Bld) [#/Vol] 0 10*3/uL Normal 0-[address] [facility] Comment on above: Performed By: #### L 100.0100, L506.1000, L500.4050, L501.9520, L501.9985 #### [facility] [address] [place], [address] Platelet mean volume (Bld) [Entitic vol] 10.1 fL Normal 6.2-12.[address] [facility] Comment on above: Performed By: #### L 100.0100, L506.1000, L500.4050, L501.9520, L501.9985 #### [facility] [address] [place], [address] Platelets (Bld) [#/Vol] 196 10*3/uL Normal 150-[address] [facility] Comment on above: Performed By: #### L 100.0100, L506.1000, L500.4050, L501.9520, L501.9985 #### [facility] [address] [place], [address] RBC (Bld) [#/Vol] 3.90 10*6/uL Low 4.6-6.2 [facility] Comment on above: Performed By: #### L 100.0100, L506.1000, L500.4050, L501.9520, L501.9985 #### [facility] [address] [place], [address] RDW SD 42.7 fl Normal 35.1-43.[address] [facility] Comment on above: Performed By: #### L 100.0100, L506.1000, L500.4050, L501.9520, L501.9985 #### [facility] [address] [place], [address] WBC (Bld) [#/Vol] 3.9 10*3/uL Low 4.4-11.0 [facility] Comment on above: Performed By: #### L 100.0100, L506.1000, L500.4050, L501.9520, L501.9985 #### [facility] [address] [place], [address] Carbon dioxide, total [Moles /volume] in Central venous bloodOrdered By: Taylor Fast on 12-18-2024 CO2 [Moles/Vol] 25.8 mmol/L 21.0-32.[address] [facility] Chloride assayOrdered By: De bra Fast on 12-18-2024 Chloride [Moles/Vol] 100 mmol/L 98-108 [facility] Comprehensive Metabolic Prof ilon 12-18-2024 Albumin [Mass/Vol] 4.0 g/dL Normal 3.4-4.8 [facility] Comment on above: Performed By: #### L 100.0100, L506.1000, L500.4050, L501.9520, L501.9985 #### [facility] [address] [place], [address] Albumin/Globulin [Mass ratio] 1.5 {ratio} Normal 0.9-2.[address] [facility] Comment on above: Performed By: #### L 100.0100, L506.1000, L500.4050, L501.9520, L501.9985 #### [facility] [address] [place], [address] ALK PHOS 70 U/L Normal 40-[address] [facility] Comment on above: Performed By: #### L 100.0100, L506.1000, L500.4050, L501.9520, L501.9985 #### [facility] [address] [place], [address] ALT [Catalytic activity/Vol] 14 U/L Normal <=[address] [facility] Comment on above: Performed By: #### L 100.0100, L506.1000, L500.4050, L501.9520, L501.9985 #### [facility] [address] [place], [address] AST [Catalytic activity/Vol] 22 U/L Normal <=[address] [facility] Comment on above: Performed By: #### L 100.0100, L506.1000, L500.4050, L501.9520, L501.9985 #### [facility] [address] [place], [address] Bilirubin [Mass/Vol] 0.44 mg/dL Normal 0.00-1.30 [facility] Comment on above: Performed By: #### L 100.0100, L506.1000, L500.4050, L501.9520, L501.9985 #### [facility] [address] [place], [address] BUN/CRE 39.5 RATIO High 10-[address] [facility] Comment on above: Performed By: #### L 100.0100, L506.1000, L500.4050, L501.9520, L501.9985 #### [facility] [address] [place], [address] Calcium [Mass/Vol] 9.4 mg/dL Normal 7.6-11.0 [facility] Comment on above: Performed By: #### L 100.0100, L506.1000, L500.4050, [id number], L501.9985 #### [facility] [address] [place], [address] Chloride [Moles/Vol] 100 mmol/L Normal 98-108 [facility] Comment on above: Performed By: #### L 100.0100, L506.1000, L500.4050, L501.9520, L501.9985 #### [facility] [address] [place], [address] CO2 [Moles/Vol] 25.8 mmol/L Normal 21.0-32.[address] [facility] Comment on above: Performed By: #### L 100.0100, L506.1000, L500.4050, L501.9520, [id number] #### [facility] [address] [place], [address] Creatinine [Mass/Vol] 0.38 mg/dL Low 0.70-1.20 [facility] Comment on above: Performed By: #### L 100.0100, L506.1000, L500.4050, L501.9520, L501.9985 #### [facility] Laboratory [address] [place], [address] GAP 10 Normal 5-[address] [facility] Comment on above: Performed By: #### L 100.0100, L506.1000, L500.4050, L501.9520, L501.9985 #### [facility] [address] [place], [address] GFR/1.73 sq M.predicted among non-blacks MDRD (S/P/Bld) [Vol rate/Area] 108 mL/min/{1.73_m2} Normal >[address] [facility] Comment on above: Result Comment: mL/m in/1.73m2 CKD-EPI Creatinine Equation (2020) Performed By: #### L 100.0100, L506.1000, L500.4050, L501.9520, L501.9985 #### [facility] [address] [place], [address] Globulin (S) [Mass/Vol] 2.6 g/dL Normal 2.2-4.2 [facility] Comment on above: Performed By: #### L 100.0100, L506.1000, L500.4050, L501.9520, L501.9985 #### [facility] [address] [place], [address] Glucose [Mass/Vol] 91 mg/dL Normal 70-99 [facility] Comment on above: Performed By: #### L 100.0100, L506.1000, L500.4050, L501.9520, L501.9985 #### [facility] [address] [place], [address] Potassium [Moles/Vol] 4.3 mmol/L Normal 3.3-5.1 [facility] Comment on above: Performed By: #### L 100.0100, L506.1000, L500.4050, L501.9520, L501.9985 #### [facility] [address] [place], [address] Sodium [Moles/Vol] 135 mmol/L Normal 133-145 [facility] Comment on above: Performed By: #### L 100.0100, L506.1000, L500.4050, L501.9520, L501.9985 #### [facility] [address] [place], [address] T PROT 6.5 g/dL Normal 5.9-8.[address] [facility] Comment on above: Performed By: #### L 100.0100, L506.1000, L500.4050, L501.9520, L501.9985 #### [facility] [address] [place], [address] Urea nitrogen [Mass/Vol] 15 mg/dL Normal 4-[address] [facility] Comment on above: Performed By: #### L 100.0100, L506.1000, L500.4050, L501.9520, L501.9985 #### [facility] [address] [place], [address] Eosinophil percentageOrdered By: Taylor Fast on 12-18-2024 Eosinophils/100 WBC (Bld) 4.1 % 0-[address] [facility] Erythrocyte distribution wid th ratioOrdered By: Taylor Fast on 12-18-2024 Erythrocyte distribution width (RBC) [Ratio] 12.3 % 11.6-14.[address] [facility] Erythrocyte distribution wid th standard deviationOrdered By: on 12-18-2024 Erythrocyte distribution width (RBC) [Ratio] 42.7 fl 35.1-43.[address] [facility] Glomerular filtration rate ( GFR) estimation/1.73 sq m using serum, plasma, or whole bOrdered By: on 12-18-2024 GFR/1.73 sq M.predicted among non-blacks MDRD (S/P/Bld) [Vol rate/Area] 108 mL/min/{1.73_m2} >[address] [facility] Comment on above: mL/min/1.73m2 CKD-EP I Creatinine Equation (2020) Hematocrit Auto (Bld) [Volum e fraction]Ordered By: Taylor 12-18-2024 Hematocrit (Bld) [Volume fraction] 36.7 % Low 40-[address] [facility] Hemoglobin A1con 12-18-2024 HbA1c (Bld) [Mass fraction] 5.2 % Normal <=5.[address] [facility] Comment on above: Result Comment: Norm al < 5.7 % Prediabetic 5.7 - 6.4 % Diabetic >or= 6.5 % Please note range changes. Performed By: #### L 100.0100, L506.1000, L500.4050, L501.9520, L501.9985 #### [facility] Laboratory [address] [place] [address]. [place], [place], [id number] Hemoglobin A1c percentageOrd ered By: on 12-18-2024 HbA1c (Bld) [Mass fraction] 5.2 % <5.[address] [facility] Comment on above: Normal < 5.7 % Predi abetic 5.7 - 6.4 % Diabetic >or= 6.5 % Please note range changes. Hemoglobin measurementOrdere d By: Taylor Fast on 12-18-2024 Hemoglobin (Bld) [Mass/Vol] 12.4 g/dL Low 13.0-16.[address] [facility] Immature granulocytes/100 WB C Auto (Bld)Ordered By: on 12-18-2024 Immature granulocytes/100 WBC (Bld) 0.300 % 0.0-0.[address] [facility] Comment on above: IG% - Immature Granu locytes (promyelocytes, myelocytes and metamyelocytes) > 1% indicates that a LEFT SHIFT is Present. Laboratory - Chemistry and C hemistry - challengeOrdered By: on 12-18-2024 AST [Catalytic activity/Vol] 22 U/L <[address] [facility] MCV (mean corpuscular volume ) determinationOrdered By: on 12-18-2024 MCV (RBC) [Entitic vol] 94.1 fL High 80-94 [facility] Mean corpuscular hemoglobin (MCH) determinationOrdered By: 12-18-2024 MCH (RBC) [Entitic mass] 31.8 pg 27.0-32.[address] [facility] Mean corpuscular hemoglobin concentration (MCHC) determinationOrdered By: 12-18-2024 MCHC (RBC) [Mass/Vol] 33.8 g/dL 32-36 [facility] Mean platelet volume determi nationOrdered By: on 12-18-2024 Platelet mean volume (Bld) [Entitic vol] 10.1 fL 6.2-12.[address] [facility] Monocyte percentageOrdered B y: on 12-18-2024 Monocytes/100 WBC (Bld) 16.5 % High 0-10 [facility] Neutrophil percentageOrdered By: on 12-18-2024 Neutrophils/100 WBC (Bld) 36.2 % Low 47-[address] [facility] Nucleated red blood cell per centageOrdered By: on 12-18-2024 Nucleated RBC/100 WBC (Bld) [Ratio] 0 % 0-[address] [facility] Platelet countOrdered By: De armando on 12-18-2024 Platelets (Bld) [#/Vol] 196 10*3/uL 150-[address] [facility] Potassium measurement (mass/ volume)Ordered By: on 12-18-2024 Potassium (Unsp spec) [Mass/Vol] 4.3 mmol/L 3.3-5.[address] [facility] RBC Auto (Bld) [#/Vol]Ordere d By: on 12-18-2024 RBC (Bld) [#/Vol] 3.90 10*6/uL Low 4.6-6.2 [facility] Serum creatinine measurement (mass/volume)Ordered By: Taylor on 12-18-2024 Creatinine [Mass/Vol] 0.38 mg/dL Low 0.70-1.20 [facility] Serum globulin measurementOr dered By: on 12-18-2024 Globulin (S) [Mass/Vol] 2.6 g/dL 2.2-4.2 [facility] Serum glucose measurement (m ass/volume)Ordered By: 12-18-2024 Glucose [Mass/Vol] 91 mg/dL 70-99 [facility] Serum or plasma alanine kumar otransferase (ALT) measurementOrdered By: 12-18-2024 ALT [Catalytic activity/Vol] 14 U/L <[address] [facility] Serum or plasma albumin marialuisa urement (mass/volume)Ordered By: Taylor on 12-18-2024 Albumin [Mass/Vol] 4.0 g/dL 3.4-4.8 [facility] Serum or plasma albumin/glob ulin mass ratioOrdered By: 12-18-2024 Albumin/Globulin [Mass ratio] 1.5 {ratio} 0.9-2.[address] [facility] Serum or plasma alkaline gilberto sphatase measurementOrdered By: 12-18-2024 ALP [Catalytic activity/Vol] 70 U/L 40-[address] [facility] Serum or plasma calcium marialuisa urement (mass/volume)Ordered By: on 12-18-2024 Calcium [Mass/Vol] 9.4 mg/dL 7.6-11.0 [facility] Serum or plasma urea nitroge n measurement (mass/volume)Ordered By: on 12-18-2024 Urea nitrogen [Mass/Vol] 15 mg/dL 4-[address] [facility] Sodium levelOrdered By: a on 12-18-2024 Sodium [Moles/Vol] 135 mmol/L 133-145 [facility] TSH DL <= 0.005 mIU/L QnOrde red By: Taylor on 12-18-2024 TSH Qn 3.470 uIU/mL 0.300-4.[address] [facility] Thyroid Stim Hormone (TSH)on 12-18-2024 TSH 3.470 uIU/mL Normal 0.300-4.[address] [facility] Comment on above: Performed By: #### L 100.0100, L506.1000, L500.4050, L501.9520, L501.9985 #### [facility] [address] [place], [place], [id number] Total proteinOrdered By: Lyla greene on 12-18-2024 Protein [Mass/Vol] 6.5 g/dL 5.9-8.4 [facility] Vitamin D,25 Hydroxyon 12-18 Vitamin D 25-OH 51.4 ng/mL Normal 30-[address] [facility] Comment on above: Result Comment: Christen min D Status Deficiency: <20 ng/mL (50nmol/L) Insufficiency: 20-30 ng/mL (50-75 nmol/L) Sufficiency: 30-100 ng/mL (75-250 nmol/L) Toxicity: >100 ng/mL (>250 nmol/L) Performed By: #### L 100.0100, L506.1000, L500.4050, L501.9520, L501.9985 #### [facility] [address] [place], [place], [id number] White blood cell (WBC) count Ordered By: Taylor on 12-18-2024 WBC (Bld) [#/Vol] 3.9 10*3/uL Low 4.4-11.0 [facility] Absolute lymphocyte countOrd ered By: Taylor on 09-16-2024 Lymphocytes Auto (Unsp spec) [#/Vol] 1.50 10*3/uL 0.83-4.[address] [facility] Absolute neutrophil countOrd ered By: Taylor on 09-16-2024 Neutrophils (Bld) [#/Vol] 2.9 10*3/uL 2.0-7.[address] [facility] Anion gap in Serum or Plasma Ordered By: Taylor Fast on 09-16-2024 Anion gap [Moles/Vol] 8 mmol/L 5-15 [facility] Automated lymphocyte count a s percentage of total leukocytesOrdered By: Taylor Fast on 09-16-2024 Lymphocytes/100 WBC Auto (Unsp spec) 28.6 % 19-[address] [facility] BUN/creatinine ratioOrdered By: Taylor Fast on 09-16-2024 Urea nitrogen/Creatinine [Mass ratio] 42.9 mg/mg High 10-[address] [facility] Basophil percentageOrdered B y: Taylor Fast on 09-16-2024 Basophils/100 WBC (Bld) 0.4 % 0-1 [facility] Bilirubin, totalOrdered By: Taylor Fast on 09-16-2024 Bilirubin [Mass/Vol] 0.45 mg/dL 0.00-1.30 [facility] CBC W/Diff, Automatedon 09-04 Absolute Lymph 1.50 X10 3/uL Normal 0.83-4.[address] [facility] Comment on above: Performed By: #### L 8200.1075, M100.1999, M100.3000 #### [facility] [address] [place], [address] Absolute Neut 2.9 X10 3/uL Normal 2.0-7.[address] [facility] Comment on above: Performed By: #### L 8200.1075, M1.1999, M100.3000 #### [facility] [address] [place], [address] Basophils/100 WBC (Bld) 0.4 % Normal 0-1 [facility] Comment on above: Performed By: #### L 8200.1075, M100.1999, M100.3000 #### [facility] [address] [place], [address] Eosinophils/100 WBC (Bld) 3.6 % Normal 0-[address] [facility] Comment on above: Performed By: #### L 8200.1075, M100.1999, #### [facility] [address] [place], [address] Erythrocyte distribution width (RBC) [Ratio] 12.8 % Normal 11.6-14.[address] [facility] Comment on above: Performed By: #### L 8200.1075, , #### [facility] [address] [place], [address] Hematocrit (Bld) [Volume fraction] 37.0 % Low 40-[address] [facility] Comment on above: Performed By: #### L 8200.107, , #### [facility] [address] [place], [address] Hemoglobin (Bld) [Mass/Vol] 12.6 g/dL Low 13.0-16.[address] [facility] Comment on above: Performed By: #### L 8200.107, , #### [facility] [address] [place], [address] IG% 0.200 Normal 0.0-0.[address] [facility] Comment on above: Result Comment: IG% - Immature Granulocytes (promyelocytes, myelocytes and metamyelocytes) > 1% indicates that a LEFT SHIFT is Present. Performed By: #### L 8200.1075, , #### [facility] [address] [place], [address] Lymphocytes/100 WBC (Bld) 28.6 % Normal 19-[address] [facility] Comment on above: Performed By: #### L 8200.1075, , .2999 #### [facility] [address] [place], [address] MCH (RBC) [Entitic mass] 32.2 pg High 27.0-32.[address] [facility] Comment on above: Performed By: #### L 8200.1075, M1.1999, M100.3000 #### [facility] [address] [place], [address] MCHC (RBC) [Mass/Vol] 34.1 g/dL Normal 32-36 [facility] Comment on above: Performed By: #### L 8200.1075, .1999, M100.3000 #### [facility] [address] [place], [address] MCV (RBC) [Entitic vol] 94.6 fL High 80-94 [facility] Comment on above: Performed By: #### L 8200.1075, .1999, M100.3000 #### [facility] [address] [place], [address] Monocytes/100 WBC (Bld) 11.6 % High 0-10 [facility] Comment on above: Performed By: #### L 8200.1075, .1999, M100.3000 #### [facility] [address] [place], [address] Neutrophils/100 WBC (Bld) 55.6 % Normal 47-[address] [facility] Comment on above: Performed By: #### L 8200.1075, .1999, M100.3000 #### [facility] [address] [place], [address] Nucleated RBC (Bld) [#/Vol] 0 10*3/uL Normal 0-[address] [facility] Comment on above: Performed By: #### L 8200.1075, M1.1999, M100.3000 #### [facility] [address] [place], [address] Platelet mean volume (Bld) [Entitic vol] 10.3 fL Normal 6.2-12.[address] [facility] Comment on above: Performed By: #### L 8200.1075, M1.1999, M100.3000 #### [facility] [address] [place], [address] Platelets (Bld) [#/Vol] 181 10*3/uL Normal 150-[address] [facility] Comment on above: Performed By: #### L 8200.1075, M100.1999, M100.3000 #### [facility] [address] [place], [address] RBC (Bld) [#/Vol] 3.91 10*6/uL Low 4.6-6.2 [facility] Comment on above: Performed By: #### L 8200.1075, .1999, M100.3000 #### [facility] [address] [place], [address] RDW SD 44.1 fl High 35.1-43.[address] [facility] Comment on above: Performed By: #### L 8200.1075, M1.1999, M100.3000 #### [facility] [address] [place], [address] WBC (Bld) [#/Vol] 5.2 10*3/uL Normal 4.4-11.0 [facility] Comment on above: Performed By: #### L 8200.1075, M1.1999, M100.3000 #### [facility] [address] [place], [address] Carbon dioxide, total [Moles /volume] in Central venous bloodOrdered By: Taylor Fast on 09-16-2024 CO2 [Moles/Vol] 27.9 mmol/L 21.0-32.[address] [facility] Chloride assayOrdered By: De bra Fast on 09-16-2024 Chloride [Moles/Vol] 98 mmol/L 98-108 [facility] Comprehensive Metabolic Prof ilon 09-16-2024 Albumin [Mass/Vol] 4.0 g/dL Normal 3.4-4.8 [facility] Comment on above: Performed By: #### L 8200.1075, .1999, M1.3000 #### [facility] [address] [place], [address] Albumin/Globulin [Mass ratio] 1.5 {ratio} Normal 0.9-2.[address] [facility] Comment on above: Performed By: #### L 8200.1075, , M1.3000 #### [facility] [address] [place], [address] ALK PHOS 62 U/L Normal 40-[address] [facility] Comment on above: Performed By: #### L 8200.1075, , .3000 #### [facility] [address] [place], [address] ALT [Catalytic activity/Vol] 12 U/L Normal <=[address] [facility] Comment on above: Performed By: #### L 8200.1075, , .3000 #### [facility] [address] [place], [address] AST [Catalytic activity/Vol] 19 U/L Normal <=[address] [facility] Comment on above: Performed By: #### L 8200.1075, , M100.3000 #### [facility] [address] [place], [address] Bilirubin [Mass/Vol] 0.45 mg/dL Normal 0.00-1.30 [facility] Comment on above: Performed By: #### L 8200.1075, , M100.3000 #### [facility] [address] [place], [address] BUN/CRE 42.9 RATIO High 10-[address] [facility] Comment on above: Performed By: #### L 8200.1075, , .3000 #### [facility] [address] [place], [address] Calcium [Mass/Vol] 9.6 mg/dL Normal 7.6-11.0 [facility] Comment on above: Performed By: #### L 8200.1075, M100.1999, M100.3000 #### [facility] [address] [place], [address] Chloride [Moles/Vol] 98 mmol/L Normal 98-108 [facility] Comment on above: Performed By: #### L 8200.1075, .1999, M100.3000 #### [facility] [address] [place], [address] CO2 [Moles/Vol] 27.9 mmol/L Normal 21.0-32.[address] [facility] Comment on above: Performed By: #### L 8200.1075, .1999, M100.3000 #### [facility] [address] [place], [address] Creatinine [Mass/Vol] 0.37 mg/dL Low 0.70-1.20 [facility] Comment on above: Performed By: #### L 8200.1075, .1999, M100.3000 #### [facility] [address] [place], [address] GAP 8 Normal 5-[address] [facility] Comment on above: Performed By: #### L 8200.1075, .1999, M100.3000 #### [facility] [address] [place], [address] GFR/1.73 sq M.predicted among non-blacks MDRD (S/P/Bld) [Vol rate/Area] 109 mL/min/{1.73_m2} Normal >[address] [facility] Comment on above: Result Comment: mL/m in/1.73m2 CKD-EPI Creatinine Equation (2020) Performed By: #### L 8200.1075, M1.1999, M100.3000 #### [facility] [address] [place], [address] Globulin (S) [Mass/Vol] 2.7 g/dL Normal 2.2-4.2 [facility] Comment on above: Performed By: #### L 8200.1075, .1999, M100.3000 #### [facility] [address] [place], [address] Glucose [Mass/Vol] 91 mg/dL Normal 70-99 [facility] Comment on above: Performed By: #### L 8200.1075, , .3000 #### [facility] [address] [place], [address] Potassium [Moles/Vol] 4.5 mmol/L Normal 3.3-5.1 [facility] Comment on above: Performed By: #### L 8200.1075, .1999, M100.3000 #### [facility] [address] [place], [address] Sodium [Moles/Vol] 134 mmol/L Normal 133-145 [facility] Comment on above: Performed By: #### L 8200.1075, .1999, M100.3000 #### [facility] [address] [place], [address] T PROT 6.7 g/dL Normal 5.9-8.[address] [facility] Comment on above: Performed By: #### L 8200.1075, M1.1999, M100.3000 #### [facility] [address] [place], [address] Urea nitrogen [Mass/Vol] 16 mg/dL Normal 4-[address] [facility] Comment on above: Performed By: #### L 8200.1075, .1999, M100.3000 #### [facility] [address] [place], [place], [address] Eosinophil percentageOrdered By: Taylor Fast on 09-16-2024 Eosinophils/100 WBC (Bld) 3.6 % 0-[address] [facility] Erythrocyte distribution wid th ratioOrdered By: Taylor on 09-16-2024 Erythrocyte distribution width (RBC) [Ratio] 12.8 % 11.6-14.[address] [facility] Erythrocyte distribution wid th standard deviationOrdered By: Taylor Fast on 09-16-2024 Erythrocyte distribution width (RBC) [Ratio] 44.1 fl High 35.1-43.[address] [facility] Glomerular filtration rate ( GFR) estimation/1.73 sq m using serum, plasma, or whole bOrdered By: Taylor on 09-16-2024 GFR/1.73 sq M.predicted among non-blacks MDRD (S/P/Bld) [Vol rate/Area] 109 mL/min/{1.73_m2} >[address] [facility] Comment on above: mL/min/1.73m2 CKD-EP I Creatinine Equation (2020) Hematocrit Auto (Bld) [Volum e fraction]Ordered By: Taylor on 09-16-2024 Hematocrit (Bld) [Volume fraction] 37.0 % Low 40-[address] [facility] Hemoglobin A1con 09-16-2024 HbA1c (Bld) [Mass fraction] 5.1 % Normal <=5.[address] [facility] Comment on above: Result Comment: Norm al < 5.7 % Prediabetic 5.7 - 6.4 % Diabetic >or= 6.5 % Please note range changes. Performed By: #### L 8200.1075, M100.2000, M100.3000 #### [facility] [address] [place], [address] Hemoglobin A1c percentageOrd ered By: Taylor on 09-16-2024 HbA1c (Bld) [Mass fraction] 5.1 % <5.[address] [facility] Comment on above: Normal < 5.7 % Predi abetic 5.7 - 6.4 % Diabetic >or= 6.5 % Please note range changes. Hemoglobin measurementOrdere d By: on 09-16-2024 Hemoglobin (Bld) [Mass/Vol] 12.6 g/dL Low 13.0-16.[address] [facility] Immature granulocytes/100 WB C Auto (Bld)Ordered By: on 09-16-2024 Immature granulocytes/100 WBC (Bld) 0.200 % 0.0-0.[address] [facility] Comment on above: IG% - Immature Granu locytes (promyelocytes, myelocytes and metamyelocytes) > 1% indicates that a LEFT SHIFT is Present. Laboratory - Chemistry and C hemistry - challengeOrdered By: on 09-16-2024 AST [Catalytic activity/Vol] 19 U/L <[address] [facility] MCV (mean corpuscular volume ) determinationOrdered By: on 09-16-2024 MCV (RBC) [Entitic vol] 94.6 fL High 80-94 [facility] Mean corpuscular hemoglobin (MCH) determinationOrdered By: on 09-16-2024 MCH (RBC) [Entitic mass] 32.2 pg High 27.0-32.[address] [facility] Mean corpuscular hemoglobin concentration (MCHC) determinationOrdered By: on 09-16-2024 MCHC (RBC) [Mass/Vol] 34.1 g/dL 32-36 [facility] Mean platelet volume determi nationOrdered By: on 09-16-2024 Platelet mean volume (Bld) [Entitic vol] 10.3 fL 6.2-12.[address] [facility] Monocyte percentageOrdered B y: on 09-16-2024 Monocytes/100 WBC (Bld) 11.6 % High 0-10 [facility] Neutrophil percentageOrdered By: on 09-16-2024 Neutrophils/100 WBC (Bld) 55.6 % 47-[address] [facility] Nucleated red blood cell per centageOrdered By: on 09-16-2024 Nucleated RBC/100 WBC (Bld) [Ratio] 0 % 0-[address] [facility] Platelet countOrdered By: De armando on 09-16-2024 Platelets (Bld) [#/Vol] 181 10*3/uL 150-[address] [facility] Potassium measurement (mass/ volume)Ordered By: on 09-16-2024 Potassium (Unsp spec) [Mass/Vol] 4.5 mmol/L 3.3-5.[address] [facility] RBC Auto (Bld) [#/Vol]Ordere d By: on 09-16-2024 RBC (Bld) [#/Vol] 3.91 10*6/uL Low 4.6-6.2 [facility] Serum creatinine measurement (mass/volume)Ordered By: on 09-16-2024 Creatinine [Mass/Vol] 0.37 mg/dL Low 0.70-1.20 [facility] Serum globulin measurementOr dered By: 09-16-2024 Globulin (S) [Mass/Vol] 2.7 g/dL 2.2-4.2 [facility] Serum glucose measurement (m ass/volume)Ordered By: 09-16-2024 Glucose [Mass/Vol] 91 mg/dL 70-99 [facility] Serum or plasma alanine kumar otransferase (ALT) measurementOrdered By: 09-16-2024 ALT [Catalytic activity/Vol] 12 U/L <[address] [facility] Serum or plasma albumin marialuisa urement (mass/volume)Ordered By: 09-16-2024 Albumin [Mass/Vol] 4.0 g/dL 3.4-4.8 [facility] Serum or plasma albumin/glob ulin mass ratioOrdered By: 09-16-2024 Albumin/Globulin [Mass ratio] 1.5 {ratio} 0.9-2.[address] [facility] Serum or plasma alkaline gilberto sphatase measurementOrdered By: 09-16-2024 ALP [Catalytic activity/Vol] 62 U/L 40-[address] [facility] Serum or plasma calcium marialuisa urement (mass/volume)Ordered By: 09-16-2024 Calcium [Mass/Vol] 9.6 mg/dL 7.6-11.0 [facility] Serum or plasma urea nitroge n measurement (mass/volume)Ordered By: on 09-16-2024 Urea nitrogen [Mass/Vol] 16 mg/dL 4-[address] [facility] Sodium levelOrdered By: Debr a Fast on 09-16-2024 Sodium [Moles/Vol] 134 mmol/L 133-145 [facility] TSH DL <= 0.005 mIU/L QnOrde red By: Taylor Fast on 09-16-2024 TSH Qn 4.040 uIU/mL 0.300-4.[address] [facility] Thyroid Stim Hormone (TSH)on 09-16-2024 TSH 4.040 uIU/mL Normal 0.300-4.[address] [facility] Comment on above: Performed By: #### L 8200.1075, M1, M1.3000 #### [facility] [address] [place], [place], [id number] Total proteinOrdered By: Lyla ra Fast on 09-16-2024 Protein [Mass/Vol] 6.7 g/dL 5.9-8.4 [facility] Vitamin D,25 Hydroxyon 09-16 Vitamin D 25-OH 52.3 ng/mL Normal 30-[address] [facility] Comment on above: Result Comment: Christen min D Status Deficiency: <20 ng/mL (50nmol/L) Insufficiency: 20-30 ng/mL (50-75 nmol/L) Sufficiency: 30-100 ng/mL (75-250 nmol/L) Toxicity: >100 ng/mL (>250 nmol/L) Performed By: #### L 8200.1075, M1, M1.3000 #### [facility] [address] [facility] [place], [place], [id number] White blood cell (WBC) count Ordered By: Taylor Fast on 09-16-2024 WBC (Bld) [#/Vol] 5.2 10*3/uL 4.4-11.0 [facility] Absolute lymphocyte countOrd ered By: Taylor Fast on 06-19-2024 Lymphocytes Auto (Unsp spec) [#/Vol] 1.41 10*3/uL 0.83-4.[address] [facility] Absolute neutrophil countOrd ered By: Taylor Fast on 06-19-2024 Neutrophils (Bld) [#/Vol] 1.6 10*3/uL Low 2.0-7.[address] [facility] Albumin to globulin ratioOrd ered By: Taylor on 06-19-2024 Albumin/Globulin [Mass ratio] 1.1 {ratio} 0.9-2.[address] [facility] Automated lymphocyte count a s percentage of total leukocytesOrdered By: Taylor on 06-19-2024 Lymphocytes/100 WBC Auto (Unsp spec) 36.2 % 19-[address] [facility] Basophil percentageOrdered B y: Taylor Fast on 06-19-2024 Basophils/100 WBC (Bld) 0.5 % 0-1 [facility] Bilirubin, totalOrdered By: Taylor on 06-19-2024 Bilirubin [Mass/Vol] 0.70 mg/dL 0.20-1.00 [facility] Comment on above: For patients on eltr ombopag therapy, use of Dimension [place] TBIL is not recommended. Blood urea nitrogen (BUN)/cr eatinine ratioOrdered By: Taylor on 06-19-2024 Urea nitrogen/Creatinine [Mass ratio] 41.3 mg/mg High 10-[address] [facility] CBC W/Diff, Automatedon 06-07 Absolute Lymph 1.41 X10 3/uL Normal 0.83-4.[address] [facility] Comment on above: Performed By: #### L 100.0100, L506.1000, L500.4050, L501.9520, L501.9985 #### [facility] [address] [place], [address] Absolute Neut 1.6 X10 3/uL Low 2.0-7.[address] [facility] Comment on above: Performed By: #### L 100.0100, L506.1000, L500.4050, L501.9520, L501.9985 #### [facility] [address] [place], [address] Basophils/100 WBC (Bld) 0.5 % Normal 0-1 [facility] Comment on above: Performed By: #### L 100.0100, L506.1000, L500.4050, L501.9520, L501.9985 #### [facility] [address] [place], [address] Eosinophils/100 WBC (Bld) 5.9 % High 0-[address] [facility] Comment on above: Performed By: #### L 100.0100, L506.1000, L500.4050, L501.9520, L501.9985 #### [facility] [address] [place], [address] Erythrocyte distribution width (RBC) [Ratio] 13.0 % Normal 11.6-14.[address] [facility] Comment on above: Performed By: #### L 100.0100, L506.1000, L500.4050, L501.9520, L501.9985 #### [facility] [address] [place], [address] Hematocrit (Bld) [Volume fraction] 35.6 % Low 40-[address] [facility] Comment on above: Performed By: #### L 100.0100, L506.1000, L500.4050, L501.9520, L501.9985 #### [facility] [address] [place], [address] Hemoglobin (Bld) [Mass/Vol] 12.1 g/dL Low 13.0-16.[address] [facility] Comment on above: Performed By: #### L 100.0100, L506.1000, L500.4050, L501.9520, L501.9985 #### [facility] [address] [place], [address] IG% 0.300 Normal 0.0-0.[address] [facility] Comment on above: Result Comment: IG% - Immature Granulocytes (promyelocytes, myelocytes and metamyelocytes) > 1% indicates that a LEFT SHIFT is Present. Performed By: #### L 100.0100, L506.1000, L500.4050, L501.9520, L501.9985 #### [facility] [address] [place], [address] Lymphocytes/100 WBC (Bld) 36.2 % Normal 19-[address] [facility] Comment on above: Performed By: #### L 100.0100, L506.1000, L500.4050, L501.9520, L501.9985 #### [facility] [address] [place], [address] MCH (RBC) [Entitic mass] 31.2 pg Normal 27.0-32.[address] [facility] Comment on above: Performed By: #### L 100.0100, L506.1000, L500.4050, L501.9520, L501.9985 #### [facility] [address] [place], [address] MCHC (RBC) [Mass/Vol] 34.0 g/dL Normal 32-36 [facility] Comment on above: Performed By: #### L 100.0100, L506.1000, L500.4050, L501.9520, L501.9985 #### [facility] [address] [place], [address] MCV (RBC) [Entitic vol] 91.8 fL Normal 80-94 [facility] Comment on above: Performed By: #### L 100.0100, L506.1000, L500.4050, L501.9520, L501.9985 #### [facility] [address] [place], [address] Monocytes/100 WBC (Bld) 15.6 % High 0-10 [facility] Comment on above: Performed By: #### L 100.0100, L506.1000, L500.4050, L501.9520, L501.9985 #### [facility] [address] [place], [address] Neutrophils/100 WBC (Bld) 41.5 % Low 47-[address] [facility] Comment on above: Performed By: #### L 100.0100, L506.1000, L500.4050, L501.9520, L501.9985 #### [facility] [address] [place], [address] Nucleated RBC (Bld) [#/Vol] 0 10*3/uL Normal 0-[address] [facility] Comment on above: Performed By: #### L 100.0100, L506.1000, L500.4050, L501.9520, L501.9985 #### [facility] [address] [place], [address] Platelet mean volume (Bld) [Entitic vol] 10.3 fL Normal 6.2-12.[address] [facility] Comment on above: Performed By: #### L 100.0100, L506.1000, L500.4050, L501.9520, L501.9985 #### [facility] [address] [place], [address] Platelets (Bld) [#/Vol] 176 10*3/uL Normal 150-[address] [facility] Comment on above: Performed By: #### L 100.0100, L506.1000, L500.4050, L501.9520, L501.9985 #### [facility] [address] [place], [address] RBC (Bld) [#/Vol] 3.88 10*6/uL Low 4.6-6.2 [facility] Comment on above: Performed By: #### L 100.0100, L506.1000, L500.4050, L501.9520, L501.9985 #### [facility] [address] [place], [address] RDW SD 43.3 fl Normal 35.1-43.[address] [facility] Comment on above: Performed By: #### L 100.0100, L506.1000, L500.4050, L501.9520, L501.9985 #### [facility] [address] [place], [address] WBC (Bld) [#/Vol] 3.9 10*3/uL Low 4.4-11.0 [facility] Comment on above: Performed By: #### L 100.0100, L506.1000, L500.4050, L501.9520, L501.9985 #### [facility] [address] [place], [address] Carbon dioxide measurementOr dered By: Taylor Fast on 06-19-2024 CO2 [Moles/Vol] 29.0 mmol/L 21.0-32.[address] [facility] Chloride measurementOrdered By: Taylor Fast on 06-19-2024 Chloride [Moles/Vol] 100 mmol/L 98-107 [facility] Comprehensive Metabolic Prof ilon 06-19-2024 Albumin [Mass/Vol] 3.5 g/dL Normal 3.2-5.0 [facility] Comment on above: Performed By: #### L 100.0100, L506.1000, L500.4050, L501.9520, L501.9985 #### [facility] [address] [place], [address] Albumin/Globulin [Mass ratio] 1.1 {ratio} Normal 0.9-2.[address] [facility] Comment on above: Performed By: #### L 100.0100, L506.1000, L500.4050, L501.9520, L501.9985 #### [facility] [address] [place], [address] ALK P 57 U/L Normal 45-[address] [facility] Comment on above: Performed By: #### L 100.0100, L506.1000, L500.4050, L501.9520, L501.9985 #### [facility] [address] [place], [address] ALT [Catalytic activity/Vol] 18 U/L Normal 16-[address] [facility] Comment on above: Performed By: #### L 100.0100, L506.1000, L500.4050, L501.9520, L501.9985 #### [facility] [address] [place], [address] AST [Catalytic activity/Vol] 17 U/L Normal 15-[address] [facility] Comment on above: Performed By: #### L 100.0100, L506.1000, L500.4050, L501.9520, L501.9985 #### [facility] [address] [place], [address] Bilirubin [Mass/Vol] 0.70 mg/dL Normal 0.20-1.00 [facility] Comment on above: Result Comment: For patients on eltrombopag therapy, use of Dimension [place] TBIL is not recommended. Performed By: #### L 100.0100, L506.1000, L500.4050, L501.9520, L501.9985 #### [facility] [address] [place], [address] BUN/CRE 41.3 RATIO High 10-[address] [facility] Comment on above: Performed By: #### L 100.0100, L506.1000, L500.4050, L501.9520, L501.9985 #### [facility] [address] [place], [address] CA,Total 9.1 mg/dL Normal 8.5-10.[address] [facility] Comment on above: Performed By: #### L 100.0100, L506.1000, L500.4050, L501.9520, L501.9985 #### [facility] [address] [place], [address] Chloride [Moles/Vol] 100 mmol/L Normal 98-107 [facility] Comment on above: Performed By: #### L 100.0100, L506.1000, L500.4050, L501.9520, L501.9985 #### [facility] [address] [place], [address] CO2 [Moles/Vol] 29.0 mmol/L Normal 21.0-32.[address] [facility] Comment on above: Performed By: #### L 100.0100, L506.1000, L500.4050, L501.9520, L501.9985 #### [facility] [address] [place], [address] Creatinine [Mass/Vol] 0.39 mg/dL Low 0.70-1.30 [facility] Comment on above: Result Comment: The validity of the calculated GFR GFRAA in patients over 70 years has not been determined. Clinical correlation is essential. Performed By: #### L 100.0100, L506.1000, L500.4050, L501.9520, L501.9985 #### [facility] [address] [place], [address] EST GFR - AA 273 mL/min Normal >[address] [facility] Comment on above: Result Comment: Afri can [place] GFR Calc Performed By: #### L 100.0100, L506.1000, L500.4050, L501.9520, L501.9985 #### [facility] [address] [place], [address] GAP 4 Low 5-[address] [facility] Comment on above: Performed By: #### L 100.0100, L506.1000, L500.4050, L501.9520, L501.9985 #### [facility] [address] [place], [address] GFR/1.73 sq M.predicted among non-blacks MDRD (S/P/Bld) [Vol rate/Area] 225 mL/min/{1.73_m2} Normal >[address] [facility] Comment on above: Result Comment: Non- GFR Calc Performed By: #### L 100.0100, L506.1000, L500.4050, L501.9520, L501.9985 #### [facility] [address] [place], [address] Globulin (S) [Mass/Vol] 3.3 g/dL Normal 2.2-4.2 [facility] Comment on above: Performed By: #### L 100.0100, L506.1000, L500.4050, L501.9520, L501.9985 #### [facility] [address] [place], [address] Glucose [Mass/Vol] 90 mg/dL Normal 74-106 [facility] Comment on above: Performed By: #### L 100.0100, L506.1000, L500.4050, L501.9520, L501.9985 #### [facility] [address] [place], [address] Potassium [Moles/Vol] 4.6 mmol/L Normal 3.5-5.1 [facility] Comment on above: Performed By: #### L 100.0100, L506.1000, L500.4050, L501.9520, L501.9985 #### [facility] [address] [place], [address] Sodium [Moles/Vol] 133 mmol/L Low 136-145 [facility] Comment on above: Performed By: #### L 100.0100, L506.1000, L500.4050, L501.9520, L501.9985 #### [facility] [address] [place], [address] T PROT 6.8 g/dL Normal 6.4-8.[address] [facility] Comment on above: Performed By: #### L 100.0100, L506.1000, L500.4050, L501.9520, L501.9985 #### [facility] [address] [place], [address] Urea nitrogen [Mass/Vol] 16 mg/dL Normal 7-[address] [facility] Comment on above: Performed By: #### L 100.0100, L506.1000, L500.4050, L501.9520, L501.9985 #### [facility] [address] [place], [address] Eosinophil percentageOrdered By: Taylor Fast on 06-19-2024 Eosinophils/100 WBC (Bld) 5.9 % High 0-[address] [facility] Erythrocyte distribution wid th ratioOrdered By: Taylor Fast on 06-19-2024 Erythrocyte distribution width (RBC) [Ratio] 13.0 % 11.6-14.[address] [facility] Erythrocyte distribution wid th standard deviationOrdered By: Taylor Fast on 06-19-2024 Erythrocyte distribution width (RBC) [Ratio] 43.3 fl 35.1-43.[address] [facility] Glomerular filtration rate ( GFR) estimationOrdered By: Taylor Fast on 06-19-2024 GFR/1.73 sq M.predicted among non-blacks MDRD (S/P/Bld) [Vol rate/Area] 225 mL/min/{1.73_m2} >[address] [facility] Comment on above: Non- GFR Calc Glucose measurementOrdered B y: Taylor Fast on 06-19-2024 Glucose [Mass/Vol] 90 mg/dL 74-106 [facility] Hematocrit Auto (Bld) [Volum e fraction]Ordered By: Taylor Fast on 06-19-2024 Hematocrit (Bld) [Volume fraction] 35.6 % Low 40-[address] [facility] Hemoglobin A1con 06-19-2024 HbA1c (Bld) [Mass fraction] 5.2 % Normal 3.8-5.[address] [facility] Comment on above: Result Comment: Norm al < 5.7 % Prediabetic 5.7 - 6.4 % Diabetic >or= 6.5 % Please note range changes. Performed By: #### L 100.0100, L506.1000, L500.4050, L501.9520, L501.9985 #### [facility] [address] [place], [address] Hemoglobin A1c percentageOrd ered By: Taylor on 06-19-2024 HbA1c (Bld) [Mass fraction] 5.2 % 3.8-5.[address] [facility] Comment on above: Normal < 5.7 % Predi abetic 5.7 - 6.4 % Diabetic >or= 6.5 % Please note range changes. Hemoglobin measurementOrdere d By: Taylor on 06-19-2024 Hemoglobin (Bld) [Mass/Vol] 12.1 g/dL Low 13.0-16.[address] [facility] Immature granulocytes/100 WB C Auto (Bld)Ordered By: Taylor on 06-19-2024 Immature granulocytes/100 WBC (Bld) 0.300 % 0.0-0.[address] [facility] Comment on above: IG% - Immature Granu locytes (promyelocytes, myelocytes and metamyelocytes) > 1% indicates that a LEFT SHIFT is Present. Laboratory - Chemistry and C hemistry - challengeOrdered By: Taylor on 06-19-2024 AST [Catalytic activity/Vol] 17 U/L 15-[address] [facility] MCV (mean corpuscular volume ) determinationOrdered By: Taylor on 06-19-2024 MCV (RBC) [Entitic vol] 91.8 fL 80-94 [facility] Mean corpuscular hemoglobin (MCH) determinationOrdered By: Taylor 06-19-2024 MCH (RBC) [Entitic mass] 31.2 pg 27.0-32.[address] [facility] Mean corpuscular hemoglobin concentration (MCHC) determinationOrdered By: Taylor Fast 06-19-2024 MCHC (RBC) [Mass/Vol] 34.0 g/dL 32-36 [facility] Mean platelet volume determi nationOrdered By: Taylor Fast on 06-19-2024 Platelet mean volume (Bld) [Entitic vol] 10.3 fL 6.2-12.[address] [facility] Monocyte percentageOrdered B y: on 06-19-2024 Monocytes/100 WBC (Bld) 15.6 % High 0-10 [facility] Neutrophil percentageOrdered By: on 06-19-2024 Neutrophils/100 WBC (Bld) 41.5 % Low 47-[address] [facility] Nucleated red blood cell per centageOrdered By: Taylor Fast on 06-19-2024 Nucleated RBC/100 WBC (Bld) [Ratio] 0 % 0-[address] [facility] Platelet countOrdered By: armando on 06-19-2024 Platelets (Bld) [#/Vol] 176 10*3/uL 150-[address] [facility] Potassium measurementOrdered By: on 06-19-2024 Potassium [Moles/Vol] 4.6 mmol/L 3.5-5.1 [facility] RBC Auto (Bld) [#/Vol]Ordere d By: on 06-19-2024 RBC (Bld) [#/Vol] 3.88 10*6/uL Low 4.6-6.2 [facility] Serum anion gap measurementO rdered By: on 06-19-2024 Anion gap [Moles/Vol] 4 mmol/L Low 5-15 [facility] Serum globulin measurementOr dered By: 06-19-2024 Globulin (S) [Mass/Vol] 3.3 g/dL 2.2-4.2 [facility] Serum or plasma alanine kumar otransferase (ALT) measurementOrdered By: 06-19-2024 ALT [Catalytic activity/Vol] 18 U/L 16-[address] [facility] Serum or plasma albumin marialuisa urement (mass/volume)Ordered By: on 06-19-2024 Albumin [Mass/Vol] 3.5 g/dL 3.2-5.0 [facility] Serum or plasma alkaline gilberto sphatase measurementOrdered By: 06-19-2024 ALP [Catalytic activity/Vol] 57 U/L 45-[address] [facility] Serum or plasma calcium marialuisa urement (mass/volume)Ordered By: Taylor Fast on 06-19-2024 Calcium [Mass/Vol] 9.1 mg/dL 8.5-10.1 [facility] Serum or plasma creatinine m easurement (mass/volume)Ordered By: Taylor Fast on 06-19-2024 Creatinine [Mass/Vol] 0.39 mg/dL Low 0.70-1.30 [facility] Comment on above: The validity of the calculated GFR & GFRAA in patients over 70 years has not been determined. Clinical correlation is essential. Serum or plasma thyroid stim ulating hormone (TSH) measurement (units/volume)Ordered By: Taylor Fast on 06-19-2024 TSH Qn 3.230 uIU/mL 0.358-3.[address] [facility] Serum or plasma urea nitroge n measurement (mass/volume)Ordered By: Taylor Fast on 06-19-2024 Urea nitrogen [Mass/Vol] 16 mg/dL 7-[address] [facility] Sodium levelOrdered By: a Fast on 06-19-2024 Sodium [Moles/Vol] 133 mmol/L Low 136-145 [facility] Thyroid Stim Hormone (TSH)on 06-19-2024 TSH 3.230 uIU/mL Normal 0.358-3.[address] [facility] Comment on above: Performed By: #### L 100.0100, L506.1000, L500.4050, L501.9520, L501.9985 #### [facility] [address] [place], [id number] Total proteinOrdered By: Lyla ra Fast on 06-19-2024 Protein [Mass/Vol] 6.8 g/dL 6.4-8.2 [facility] Vitamin D,25 Hydroxyon 06-19 Vitamin D 25-OH 57.9 ng/mL Normal [facility] Comment on above: Result Comment: Christen min D 25(OH) Status Range Deficiency <20 ng/mL (50nmol/L) Insufficiency 20 - 30 ng/mL (50 - 75 nmol/L) Sufficiency 30 - 100 ng/mL (75 - 250 nmol/L) Toxicity >100 ng/mL (>250 nmol/L) Performed By: #### L 100.0100, L506.1000, L500.4050, L501.9520, L501.9985 #### [facility] [address] [place], [address] White blood cell (WBC) count Ordered By: Taylor Zuniga on 06-19-2024 WBC (Bld) [#/Vol] 3.9 10*3/uL Low 4.4-11.0 [facility] CBC W/Diff, Automatedon 03-07 Absolute Lymph 1.58 X10 3/uL Normal 0.83-4.[address] [facility] Comment on above: Performed By: #### L 8200.1075, M100.1999, M100.3000 #### [facility] [address] [place], [address] Absolute Neut 2.1 X10 3/uL Normal 2.0-7.[address] [facility] Comment on above: Performed By: #### L 8200.1075, M100.1999, M100.3000 #### [facility] [address] [place], [address] Basophils/100 WBC (Bld) 0.6 % Normal 0-1 [facility] Comment on above: Performed By: #### L 8200.1075, M100.1999, M100.3000 #### [facility] [address] [place], [address] Eosinophils/100 WBC (Bld) 5.8 % High 0-[address] [facility] Comment on above: Performed By: #### L 8200.1075, M100.1999, M100.3000 #### [facility] [address] [place], [address] Erythrocyte distribution width (RBC) [Ratio] 12.6 % Normal 11.6-14.[address] [facility] Comment on above: Performed By: #### L 8200.1075, , .2999 #### [facility] [address] [place], [address] Hematocrit (Bld) [Volume fraction] 38.5 % Low 40-[address] [facility] Comment on above: Performed By: #### L 8200.1075, , .2999 #### [facility] [address] [place], [address] Hemoglobin (Bld) [Mass/Vol] 12.5 g/dL Low 13.0-16.[address] [facility] Comment on above: Performed By: #### L 8200.107, , .2999 #### [facility] [address] [place], [address] IG% 0.200 Normal 0.0-0.[address] [facility] Comment on above: Result Comment: IG% - Immature Granulocytes (promyelocytes, myelocytes and metamyelocytes) > 1% indicates that a LEFT SHIFT is Present. Performed By: #### L 8200.1075, , .2999 #### [facility] [address] [place], [address] Lymphocytes/100 WBC (Bld) 33.9 % Normal 19-[address] [facility] Comment on above: Performed By: #### L 8200.1075, , .2999 #### [facility] [address] [place], [address] MCH (RBC) [Entitic mass] 30.1 pg Normal 27.0-32.[address] [facility] Comment on above: Performed By: #### L 8200.1075, , .3000 #### [facility] [address] [place], [address] MCHC (RBC) [Mass/Vol] 32.5 g/dL Normal 32-36 [facility] Comment on above: Performed By: #### L 8200.1075, .1999, M100.3000 #### [facility] [address] [place], [address] MCV (RBC) [Entitic vol] 92.8 fL Normal 80-94 [facility] Comment on above: Performed By: #### L 8200.1075, , M100.3000 #### [facility] [address] [place], [address] Monocytes/100 WBC (Bld) 13.7 % High 0-10 [facility] Comment on above: Performed By: #### L 8200.1075, .1999, M100.3000 #### [facility] [address] [place], [address] Neutrophils/100 WBC (Bld) 45.8 % Low 47-[address] [facility] Comment on above: Performed By: #### L 8200.1075, .1999, M100.3000 #### [facility] [address] [place], [address] Nucleated RBC (Bld) [#/Vol] 0 10*3/uL Normal 0-[address] [facility] Comment on above: Performed By: #### L 8200.1075, .1999, M100.3000 #### [facility] [address] [place], [address] Platelet mean volume (Bld) [Entitic vol] 9.5 fL Normal 6.2-12.[address] [facility] Comment on above: Performed By: #### L 8200.1075, .1999, M100.3000 #### [facility] [address] [place], [address] Platelets (Bld) [#/Vol] 231 10*3/uL Normal 150-[address] [facility] Comment on above: Performed By: #### L 8200.1075, M1.1999, M100.3000 #### [facility] [address] [place], [address] RBC (Bld) [#/Vol] 4.15 10*6/uL Low 4.6-6.2 [facility] Comment on above: Performed By: #### L 8200.1075, .1999, M100.3000 #### [facility] [address] [place], [address] RDW SD 43.2 fl Normal 35.1-43.[address] [facility] Comment on above: Performed By: #### L 8200.1075, .1999, M100.3000 #### [facility] [address] [place], [address] WBC (Bld) [#/Vol] 4.7 10*3/uL Normal 4.4-11.0 [facility] Comment on above: Performed By: #### L 8200.1075, .1999, M100.3000 #### [facility] [address] [place], [address] Comprehensive Metabolic [facility] 03-19-2024 Albumin [Mass/Vol] 3.4 g/dL Normal 3.2-5.0 [facility] Comment on above: Performed By: #### L 8200.1075, , M100.3000 #### [facility] [address] [place], [address] Albumin/Globulin [Mass ratio] 1.0 {ratio} Normal 0.9-2.[address] [facility] Comment on above: Performed By: #### L 8200.1075, M1.1999, M100.3000 #### [facility] [address] [place], [address] ALK P 60 U/L Normal 45-[address] [facility] Comment on above: Performed By: #### L 8200.1075, , .2999 #### [facility] [address] [place], [address] ALT [Catalytic activity/Vol] 17 U/L Normal 16-[address] [facility] Comment on above: Performed By: #### L 8200.1075, , .2999 #### [facility] [address] [place], [address] AST [Catalytic activity/Vol] 14 U/L Low 15-[address] [facility] Comment on above: Performed By: #### L 8200.1075, , #### [facility] [address] [place], [address] Bilirubin [Mass/Vol] 0.50 mg/dL Normal 0.20-1.00 [facility] Comment on above: Result Comment: For patients on eltrombopag therapy, use of Dimension [place] TBIL is not recommended. Performed By: #### L 8200.1075, , .2999 #### [facility] [address] [place], [address] BUN/CRE 30.5 RATIO High 10-[address] [facility] Comment on above: Performed By: #### L 8200.1075, , .2999 #### [facility] [address] [place], [address] CA,Total 9.4 mg/dL Normal 8.5-10.[address] [facility] Comment on above: Performed By: #### L 8200.1075, , .3000 #### [facility] [address] [place], [address] Chloride [Moles/Vol] 102 mmol/L Normal 98-107 [facility] Comment on above: Performed By: #### L 8200.1075, M1.1999, M100.3000 #### [facility] [address] [place], [address] CO2 [Moles/Vol] 30.0 mmol/L Normal 21.0-32.[address] [facility] Comment on above: Performed By: #### L 8200.1075, M100.1999, M100.3000 #### [facility] [address] [place], [address] Creatinine [Mass/Vol] 0.39 mg/dL Low 0.70-1.30 [facility] Comment on above: Result Comment: The validity of the calculated GFR GFRAA in patients over 70 years has not been determined. Clinical correlation is essential. Performed By: #### L 8200.1075, .1999, M100.3000 #### [facility] [address] [place], [address] EST GFR - AA 268 mL/min Normal >[address] [facility] Comment on above: Result Comment: Afri can Qatari GFR Calc Performed By: #### L 8200.1075, .1999, M100.3000 #### [facility] [address] [place], [address] GAP 4 Low 5-[address] [facility] Comment on above: Performed By: #### L 8200.1075, .1999, M100.3000 #### [facility] [address] [place], [address] GFR/1.73 sq M.predicted among non-blacks MDRD (S/P/Bld) [Vol rate/Area] 222 mL/min/{1.73_m2} Normal >[address] [facility] Comment on above: Result Comment: Non- GFR Calc Performed By: #### L 8200.1075, M100.1999, M100.3000 #### [facility] [address] [place], [address] Globulin (S) [Mass/Vol] 3.4 g/dL Normal 2.2-4.2 [facility] Comment on above: Performed By: #### L 8200.1075, , .2999 #### [facility] [address] [place], [address] Glucose [Mass/Vol] 96 mg/dL Normal 74-106 [facility] Comment on above: Performed By: #### L 8200.1075, , .3000 #### [facility] [address] [place], [address] Potassium [Moles/Vol] 4.4 mmol/L Normal 3.5-5.1 [facility] Comment on above: Performed By: #### L 8200.1075, , .2999 #### [facility] [address] [place], [address] Sodium [Moles/Vol] 136 mmol/L Normal 136-145 [facility] Comment on above: Performed By: #### L 8200.1075, , .3000 #### [facility] [address] [place], [address] T PROT 6.8 g/dL Normal 6.4-8.[address] [facility] Comment on above: Performed By: #### L 8200.1075, , .3000 #### [facility] [address] [place], [address] Urea nitrogen [Mass/Vol] 12 mg/dL Normal - [facility] Comment on above: Performed By: #### L 8200.1075, , .3000 #### [facility] [address] [place], [address] Basic Metabolic Profile (BMP )on 11-08-2024 BUN Normal 7-[address] [facility] Comment on above: Result Comment: Canc elled via OM: Order cancelled - Patient discharged Performed By: #### L 100.0100, L506.1000, L500.4050, L501.9520, L501.9985 #### [facility] [address] [place], [address] BUN/CRE Normal 10-[address] [facility] Comment on above: Result Comment: Canc elled via OM: Order cancelled - Patient discharged Performed By: #### L 100.0100, L506.1000, L500.4050, L501.9520, L501.9985 #### [facility] [address] [place], [address] CA,Total Normal 8.5-10.[address] [facility] Comment on above: Result Comment: Canc elled via OM: Order cancelled - Patient discharged Performed By: #### L 100.0100, L506.1000, L500.4050, L501.9520, L501.9985 #### [facility] [address] [place], [address] CL Normal 98-[address] [facility] Comment on above: Result Comment: Canc elled via OM: Order cancelled - Patient discharged Performed By: #### L 100.0100, L506.1000, L500.4050, L501.9520, L501.9985 #### [facility] [address] [place], [address] CO2 Normal 21.0-32.[address] [facility] Comment on above: Result Comment: Canc elled via OM: Order cancelled - Patient discharged Performed By: #### L 100.0100, L506.1000, L500.4050, L501.9520, L501.9985 #### [facility] [address] [place], [address] CREAT,SERUM Normal 0.70-1.[address] [facility] Comment on above: Result Comment: Canc elled via OM: Order cancelled - Patient discharged Performed By: #### L 100.0100, L506.1000, L500.4050, L501.9520, L501.9985 #### [facility] [address] [place], [address] EST GFR Normal >[address] [facility] Comment on above: Result Comment: Canc elled via OM: Order cancelled - Patient discharged Performed By: #### L 100.0100, L506.1000, L500.4050, L501.9520, L501.9985 #### [facility] [address] [place], [address] EST GFR - AA Normal >[address] [facility] Comment on above: Result Comment: Canc elled via OM: Order cancelled - Patient discharged Performed By: #### L 100.0100, L506.1000, L500.4050, L501.9520, L501.9985 #### [facility] [address] [place], [address] GAP Normal 5-[address] [facility] Comment on above: Result Comment: Canc elled via OM: Order cancelled - Patient discharged Performed By: #### L 100.0100, L506.1000, L500.4050, L501.9520, L501.9985 #### [facility] [address] [place], [address] GLU Normal 74-[address] [facility] Comment on above: Result Comment: Canc elled via OM: Order cancelled - Patient discharged Performed By: #### L 100.0100, L506.1000, L500.4050, L501.9520, L501.9985 #### [facility] [address] [place], [address] Potassium Normal 3.5-5.[address] [facility] Comment on above: Result Comment: Canc elled via OM: Order cancelled - Patient discharged Performed By: #### L 100.0100, L506.1000, L500.4050, L501.9520, L501.9985 #### [facility] [address] [place], [address] Basic Metabolic Profile (BMP) Normal 136-[address] [facility] Comment on above: Result Comment: Canc elled via OM: Order cancelled - Patient discharged Performed By: #### L 100.0100, L506.1000, L500.4050, L501.9520, L501.9985 #### [facility] [address] [place], [address] CBC W/Diff, Automatedon 11-0 Absolute Neut Normal 2.0-7.[address] [facility] Comment on above: Result Comment: ALPHONSE ENT NOT WILLING TO HAVE BLOOD DRAWN 03/14. WILL ATTEMPT TO RESCHEDULE. Performed By: #### L 500.4050, L100.0100 #### [facility] [address] [place], [address] HCT Normal 40-[address] [facility] Comment on above: Result Comment: ALPHONSE ENT NOT WILLING TO HAVE BLOOD DRAWN 03/14. WILL ATTEMPT TO RESCHEDULE. Performed By: #### L 500.4050, L100.0100 #### [facility] [address] [place], [address] HGB Normal 13.0-16.[address] [facility] Comment on above: Result Comment: ALPHONSE ENT NOT WILLING TO HAVE BLOOD DRAWN 03/14. WILL ATTEMPT TO RESCHEDULE. Performed By: #### L 500.4050, L100.0100 #### [facility] [address] [place], [address] MCH Normal 27.0-32.[address] [facility] Comment on above: Result Comment: ALPHONSE ENT NOT WILLING TO HAVE BLOOD DRAWN 03/14. WILL ATTEMPT TO RESCHEDULE. Performed By: #### L 500.4050, L100.0100 #### [facility] [address] [place], [address] MCHC Normal 32-[address] [facility] Comment on above: Result Comment: ALPHONSE ENT NOT WILLING TO HAVE BLOOD DRAWN 03/14. WILL ATTEMPT TO RESCHEDULE. Performed By: #### L 500.4050, L100.0100 #### [facility] [address] [place], [address] MCV Normal 80-[address] [facility] Comment on above: Result Comment: ALPHONSE ENT NOT WILLING TO HAVE BLOOD DRAWN 03/14. WILL ATTEMPT TO RESCHEDULE. Performed By: #### L 500.4050, L100.0100 #### [facility] [address] [place], [address] NEUT% Normal 47-[address] [facility] Comment on above: Result Comment: ALPHONSE ENT NOT WILLING TO HAVE BLOOD DRAWN 03/14. WILL ATTEMPT TO RESCHEDULE. Performed By: #### L 500.4050, L100.0100 #### [facility] [address] [place], [address] PLT Normal 150-[address] [facility] Comment on above: Result Comment: ALPHONSE ENT NOT WILLING TO HAVE BLOOD DRAWN 03/14. WILL ATTEMPT TO RESCHEDULE. Performed By: #### L 500.4050, L100.0100 #### [facility] [address] [place], [address] RBC Normal 4.6-6.[address] [facility] Comment on above: Result Comment: ALPHONSE ENT NOT WILLING TO HAVE BLOOD DRAWN 03/14. WILL ATTEMPT TO RESCHEDULE. Performed By: #### L 500.4050, L100.0100 #### [facility] [address] [place], [address] RDW CV Normal 11.6-14.[address] [facility] Comment on above: Result Comment: ALPHONSE ENT NOT WILLING TO HAVE BLOOD DRAWN 03/14. WILL ATTEMPT TO RESCHEDULE. Performed By: #### L 500.4050, L100.0100 #### [facility] [address] [place], [address] RDW SD Normal 35.1-43.[address] [facility] Comment on above: Result Comment: ALPHONSE ENT NOT WILLING TO HAVE BLOOD DRAWN 03/14. WILL ATTEMPT TO RESCHEDULE. Performed By: #### L 500.4050, L100.0100 #### [facility] [address] [place], [address] WBC Normal 4.4-11.[address] [facility] Comment on above: Result Comment: ALPHONSE ENT NOT WILLING TO HAVE BLOOD DRAWN 03/14. WILL ATTEMPT TO RESCHEDULE. Performed By: #### L 500.4050, L100.0100 #### [facility] [address] [facility] [address] Absolute Neut Normal 2.0-7.[address] [facility] Comment on above: Result Comment: Canc elled via OM: Order cancelled - Patient discharged Performed By: #### L 100.0100, L506.1000, L500.4050, L501.9520, L501.9985 #### [facility] [address] [facility] [address] HCT Normal 40-[address] [facility] Comment on above: Result Comment: Canc elled via OM: Order cancelled - Patient discharged Performed By: #### L 100.0100, L506.1000, L500.4050, L501.9520, L501.9985 #### [facility] [address] [place], [address] HGB Normal 13.0-16.[address] [facility] Comment on above: Result Comment: Canc elled via OM: Order cancelled - Patient discharged Performed By: #### L 100.0100, L506.1000, L500.4050, L501.9520, L501.9985 #### [facility] [address] [place], [address] MCH Normal 27.0-32.[address] [facility] Comment on above: Result Comment: Canc elled via OM: Order cancelled - Patient discharged Performed By: #### L 100.0100, L506.1000, L500.4050, L501.9520, L501.9985 #### [facility] [address] [place], [address] MCHC Normal 32-[address] [facility] Comment on above: Result Comment: Canc elled via OM: Order cancelled - Patient discharged Performed By: #### L 100.0100, L506.1000, L500.4050, L501.9520, L501.9985 #### [facility] [address] [place], [address] MCV Normal 80-[address] [facility] Comment on above: Result Comment: Canc elled via OM: Order cancelled - Patient discharged Performed By: #### L 100.0100, L506.1000, L500.4050, L501.9520, L501.9985 #### [facility] [address] [place], [address] NEUT% Normal 47-[address] [facility] Comment on above: Result Comment: Canc elled via OM: Order cancelled - Patient discharged Performed By: #### L 100.0100, L506.1000, L500.4050, L501.9520, L501.9985 #### [facility] [address] [place], [address] PLT Normal 150-[address] [facility] Comment on above: Result Comment: Canc elled via OM: Order cancelled - Patient discharged Performed By: #### L 100.0100, L506.1000, L500.4050, L501.9520, L501.9985 #### [facility] [address] [place], [address] RBC Normal 4.6-6.[address] [facility] Comment on above: Result Comment: Canc elled via OM: Order cancelled - Patient discharged Performed By: #### L 100.0100, L506.1000, L500.4050, L501.9520, L501.9985 #### [facility] [address] [place], [address] RDW CV Normal 11.6-14.[address] [facility] Comment on above: Result Comment: Canc elled via OM: Order cancelled - Patient discharged Performed By: #### L 100.0100, L506.1000, L500.4050, L501.9520, L501.9985 #### [facility] [address] [place], [address] RDW SD Normal 35.1-43.[address] [facility] Comment on above: Result Comment: Canc elled via OM: Order cancelled - Patient discharged Performed By: #### L 100.0100, L506.1000, L500.4050, L501.9520, L501.9985 #### [facility] [address] [place], [address] WBC Normal 4.4-11.[address] [facility] Comment on above: Result Comment: Canc elled via OM: Order cancelled - Patient discharged Performed By: #### L 100.0100, L506.1000, L500.4050, L501.9520, L501.9985 #### [facility] [address] [place], [address] Comprehensive Metabolic Prof ilon 03-14-2024 ALB Normal 3.2-5.[address] [facility] Comment on above: Order Comment: HOME DRAW Result Comment: ALPHONSE ENT NOT WILLING TO HAVE BLOOD DRAWN 03/14. WILL ATTEMPT TO RESCHEDULE. Performed By: #### L 500.4050, L100.0100 #### [facility] [address] [place], [address] ALK P Normal 45-[address] [facility] Comment on above: Order Comment: HOME DRAW Result Comment: ALPHONSE ENT NOT WILLING TO HAVE BLOOD DRAWN 03/14. WILL ATTEMPT TO RESCHEDULE. Performed By: #### L 500.4050, L100.0100 #### [facility] [address] [place], [address] ALT Normal 16-[address] [facility] Comment on above: Order Comment: HOME DRAW Result Comment: ALPHONSE ENT NOT WILLING TO HAVE BLOOD DRAWN 03/14. WILL ATTEMPT TO RESCHEDULE. Performed By: #### L 500.4050, L100.0100 #### [facility] [address] [place], [address] AST Normal 15-[address] [facility] Comment on above: Order Comment: HOME DRAW Result Comment: ALPHONSE ENT NOT WILLING TO HAVE BLOOD DRAWN 03/14. WILL ATTEMPT TO RESCHEDULE. Performed By: #### L 500.4050, L100.0100 #### [facility] [address] [place], [address] BUN Normal 7-[address] [facility] Comment on above: Order Comment: HOME DRAW Result Comment: ALPHONSE ENT NOT WILLING TO HAVE BLOOD DRAWN 03/14. WILL ATTEMPT TO RESCHEDULE. Performed By: #### L 500.4050, L100.0100 #### [facility] [address] [place], [address] BUN/CRE Normal 10-[address] [facility] Comment on above: Order Comment: HOME DRAW Result Comment: ALPHONSE ENT NOT WILLING TO HAVE BLOOD DRAWN 03/14. WILL ATTEMPT TO RESCHEDULE. Performed By: #### L 500.4050, L100.0100 #### [facility] [address] [place], [address] CA,Total Normal 8.5-10.[address] [facility] Comment on above: Order Comment: HOME DRAW Result Comment: ALPHONSE ENT NOT WILLING TO HAVE BLOOD DRAWN 03/14. WILL ATTEMPT TO RESCHEDULE. Performed By: #### L 500.4050, L100.0100 #### [facility] [address] [place], [address] CL Normal 98-[address] [facility] Comment on above: Order Comment: HOME DRAW Result Comment: ALPHONSE ENT NOT WILLING TO HAVE BLOOD DRAWN 03/14. WILL ATTEMPT TO RESCHEDULE. Performed By: #### L 500.4050, L100.0100 #### [facility] [address] [place], [address] CO2 Normal 21.0-32.[address] [facility] Comment on above: Order Comment: HOME DRAW Result Comment: ALPHONSE ENT NOT WILLING TO HAVE BLOOD DRAWN 03/14. WILL ATTEMPT TO RESCHEDULE. Performed By: #### L 500.4050, L100.0100 #### [facility] [address] [place], [address] CREAT,SERUM Normal 0.70-1.[address] [facility] Comment on above: Order Comment: HOME DRAW Result Comment: ALPHONSE ENT NOT WILLING TO HAVE BLOOD DRAWN 03/14. WILL ATTEMPT TO RESCHEDULE. Performed By: #### L 500.4050, L100.0100 #### [facility] [address] [place], [address] EST GFR Normal >[address] [facility] Comment on above: Order Comment: HOME DRAW Result Comment: ALPHONSE ENT NOT WILLING TO HAVE BLOOD DRAWN 03/14. WILL ATTEMPT TO RESCHEDULE. Performed By: #### L 500.4050, L100.0100 #### [facility] [address] [place], [address] EST GFR - AA Normal >[address] [facility] Comment on above: Order Comment: HOME DRAW Result Comment: ALPHONSE ENT NOT WILLING TO HAVE BLOOD DRAWN 03/14. WILL ATTEMPT TO RESCHEDULE. Performed By: #### L 500.4050, L100.0100 #### [facility] [address] [place], [address] GAP Normal 5-[address] [facility] Comment on above: Order Comment: HOME DRAW Result Comment: ALPHONSE ENT NOT WILLING TO HAVE BLOOD DRAWN 03/14. WILL ATTEMPT TO RESCHEDULE. Performed By: #### L 500.4050, L100.0100 #### [facility] [address] [place], [address] GLU Normal 74-[address] [facility] Comment on above: Order Comment: HOME DRAW Result Comment: ALPHONSE ENT NOT WILLING TO HAVE BLOOD DRAWN 03/14. WILL ATTEMPT TO RESCHEDULE. Performed By: #### L 500.4050, L100.0100 #### [facility] [address] [place], [address] Potassium Normal 3.5-5.[address] [facility] Comment on above: Order Comment: HOME DRAW Result Comment: ALPHONSE ENT NOT WILLING TO HAVE BLOOD DRAWN 03/14. WILL ATTEMPT TO RESCHEDULE. Performed By: #### L 500.4050, L100.0100 #### [facility] [address] [place], [address] T BILI Normal 0.20-1.[address] [facility] Comment on above: Order Comment: HOME DRAW Result Comment: ALPHONSE ENT NOT WILLING TO HAVE BLOOD DRAWN 03/14. WILL ATTEMPT TO RESCHEDULE. Performed By: #### L 500.4050, L100.0100 #### [facility] [address] [place], [address] T PROT Normal 6.4-8.[address] [facility] Comment on above: Order Comment: HOME DRAW Result Comment: ALPHONSE ENT NOT WILLING TO HAVE BLOOD DRAWN 03/14. WILL ATTEMPT TO RESCHEDULE. Performed By: #### L 500.4050, L100.0100 #### [facility] [address] [place], [address] Comprehensive Metabolic Profil Normal 136-[address] [facility] Comment on above: Order Comment: HOME DRAW Result Comment: ALPHONSE ENT NOT WILLING TO HAVE BLOOD DRAWN 03/14. WILL ATTEMPT TO RESCHEDULE. Performed By: #### L 500.4050, L100.0100 #### [facility] [address] [place], [address] Basic Metabolic Profile (BMP )on 03-07-2024 BUN Normal 7-[address] [facility] Comment on above: Result Comment: Canc elled via OM: Order cancelled - Patient discharged Performed By: #### L 8200.1075, M1.1999, M100.3000 #### [facility] [address] [place], [address] BUN/CRE Normal 10-[address] [facility] Comment on above: Result Comment: Canc elled via OM: Order cancelled - Patient discharged Performed By: #### L 8200.1075, M1.1999, M100.3000 #### [facility] [address] [place], [address] CA,Total Normal 8.5-10.[address] [facility] Comment on above: Result Comment: Canc elled via OM: Order cancelled - Patient discharged Performed By: #### L 8200.1075, .1999, M100.3000 #### [facility] [address] [place], [address] CL Normal 98-[address] [facility] Comment on above: Result Comment: Canc elled via OM: Order cancelled - Patient discharged Performed By: #### L 8200.1075, .1999, M100.3000 #### [facility] [address] [place], [address] CO2 Normal 21.0-32.[address] [facility] Comment on above: Result Comment: Canc elled via OM: Order cancelled - Patient discharged Performed By: #### L 8200.1075, M100.1999, M100.3000 #### [facility] [address] [place], [address] CREAT,SERUM Normal 0.70-1.[address] [facility] Comment on above: Result Comment: Canc elled via OM: Order cancelled - Patient discharged Performed By: #### L 8200.1075, M100.1999, M100.3000 #### [facility] [address] [place], [address] EST GFR Normal >[address] [facility] Comment on above: Result Comment: Canc elled via OM: Order cancelled - Patient discharged Performed By: #### L 8200.1075, M100.1999, M100.3000 #### [facility] [address] [place], [address] EST GFR - AA Normal >[address] [facility] Comment on above: Result Comment: Canc elled via OM: Order cancelled - Patient discharged Performed By: #### L 8200.1075, M100.1999, M100.3000 #### [facility] [address] [place], [address] GAP Normal 5-[address] [facility] Comment on above: Result Comment: Canc elled via OM: Order cancelled - Patient discharged Performed By: #### L 8200.1075, M100.1999, M100.3000 #### [facility] [address] [place], [address] GLU Normal 74-[address] [facility] Comment on above: Result Comment: Canc elled via OM: Order cancelled - Patient discharged Performed By: #### L 8200.1075, M100.1999, M100.3000 #### [facility] [address] [place], [address] Potassium Normal 3.5-5.[address] [facility] Comment on above: Result Comment: Canc elled via OM: Order cancelled - Patient discharged Performed By: #### L 8200.1075, M100.1999, M100.3000 #### [facility] [address] [place], [address] Basic Metabolic Profile (BMP) Normal 136-[address] [facility] Comment on above: Result Comment: Canc elled via OM: Order cancelled - Patient discharged Performed By: #### L 8200.1075, M100.1999, M100.3000 #### [facility] [address] [place], [address] CBC W/Diff, Automatedon 11-0 Absolute Neut Normal 2.0-7.[address] [facility] Comment on above: Result Comment: Canc elled via OM: Order cancelled - Patient discharged Performed By: #### L 8200.1075, M100.1999, M100.3000 #### [facility] [address] [place], [address] HCT Normal 40-[address] [facility] Comment on above: Result Comment: Canc elled via OM: Order cancelled - Patient discharged Performed By: #### L 8200.1075, M100.1999, M100.3000 #### [facility] [address] [place], [address] HGB Normal 13.0-16.[address] [facility] Comment on above: Result Comment: Canc elled via OM: Order cancelled - Patient discharged Performed By: #### L 8200.1075, M100.1999, M100.3000 #### [facility] [address] [place], [address] MCH Normal 27.0-32.[address] [facility] Comment on above: Result Comment: Canc elled via OM: Order cancelled - Patient discharged Performed By: #### L 8200.1075, M100.1999, M100.3000 #### [facility] [address] [place], [address] MCHC Normal 32-[address] [facility] Comment on above: Result Comment: Canc elled via OM: Order cancelled - Patient discharged Performed By: #### L 8200.1075, M100.1999, M100.3000 #### [facility] [address] [place], [address] MCV Normal 80-[address] [facility] Comment on above: Result Comment: Canc elled via OM: Order cancelled - Patient discharged Performed By: #### L 8200.1075, M100.2000, M100.3000 #### [facility] [address] [place], [address] NEUT% Normal 47-[address] [facility] Comment on above: Result Comment: Canc elled via OM: Order cancelled - Patient discharged Performed By: #### L 8200.1075, M100.1999, M100.3000 #### [facility] [address] [place], [address] PLT Normal 150-[address] [facility] Comment on above: Result Comment: Canc elled via OM: Order cancelled - Patient discharged Performed By: #### L 8200.1075, M100.1999, M100.3000 #### [facility] [address] [place], [address] RBC Normal 4.6-6.[address] [facility] Comment on above: Result Comment: Canc elled via OM: Order cancelled - Patient discharged Performed By: #### L 8200.1075, M100.1999, M100.3000 #### [facility] [address] [place], [address] RDW CV Normal 11.6-14.[address] [facility] Comment on above: Result Comment: Canc elled via OM: Order cancelled - Patient discharged Performed By: #### L 8200.1075, M100.1999, M100.3000 #### [facility] [address] [place], [address] RDW SD Normal 35.1-43.[address] [facility] Comment on above: Result Comment: Canc elled via OM: Order cancelled - Patient discharged Performed By: #### L 8200.1075, M100.2000, M100.3000 #### [facility] [facility] [address] [place], [address] WBC Normal 4.4-11.[address] [facility] Comment on above: Result Comment: Canc elled via OM: Order cancelled - Patient discharged Performed By: #### L 8200.1075, M100.1999, M100.3000 #### [facility] [address] [place], [address] Basic Metabolic Profile (BMP )on 02-29-2024 BUN Normal - [facility] Comment on above: Result Comment: Canc elled via OM: Order cancelled - Patient discharged Performed By: #### L 8200.1075, M100.1999, M100.3000 #### [facility] [address] [place], [address] BUN/CRE Normal - [facility] Comment on above: Result Comment: Canc elled via OM: Order cancelled - Patient discharged Performed By: #### L 8200.1075, M100.1999, M100.3000 #### [facility] [address] [place], [address] CA,Total Normal 8.5-10.[address] [facility] Comment on above: Result Comment: Canc elled via OM: Order cancelled - Patient discharged Performed By: #### L 8200.1075, M100.1999, M100.3000 #### [facility] [address] [place], [address] CL Normal 98-[address] [facility] Comment on above: Result Comment: Canc elled via OM: Order cancelled - Patient discharged Performed By: #### L 8200.1075, M100.1999, M100.3000 #### [facility] [address] [place], [address] CO2 Normal 21.0-32.[address] [facility] Comment on above: Result Comment: Canc elled via OM: Order cancelled - Patient discharged Performed By: #### L 8200.1075, M100.1999, M100.3000 #### [facility] [address] [place], [address] CREAT,SERUM Normal 0.70-1.[address] [facility] Comment on above: Result Comment: Canc elled via OM: Order cancelled - Patient discharged Performed By: #### L 8200.1075, M100.1999, M100.3000 #### [facility] [address] [place], [address] EST GFR Normal >[address] [facility] Comment on above: Result Comment: Canc elled via OM: Order cancelled - Patient discharged Performed By: #### L 8200.1075, M100.1999, M100.3000 #### [facility] [address] [place], [address] EST GFR - AA Normal >[address] [facility] Comment on above: Result Comment: Canc elled via OM: Order cancelled - Patient discharged Performed By: #### L 8200.1075, M100.1999, M100.3000 #### [facility] [address] [place], [address] GAP Normal 5-[address] [facility] Comment on above: Result Comment: Canc elled via OM: Order cancelled - Patient discharged Performed By: #### L 8200.1075, M100.1999, M100.3000 #### [facility] [address] [place], [address] GLU Normal 74-[address] [facility] Comment on above: Result Comment: Canc elled via OM: Order cancelled - Patient discharged Performed By: #### L 8200.1075, M100.1999, M100.3000 #### [facility] [address] [place], [address] Potassium Normal 3.5-5.[address] [facility] Comment on above: Result Comment: Canc elled via OM: Order cancelled - Patient discharged Performed By: #### L 8200.1075, M100.1999, M100.3000 #### [facility] [address] [place], [address] Basic Metabolic Profile (BMP) Normal 136-[address] [facility] Comment on above: Result Comment: Canc elled via OM: Order cancelled - Patient discharged Performed By: #### L 8200.1075, M100.1999, M100.3000 #### [facility] [address] [place], [address] CBC W/Diff, Automatedon 10-2 Absolute Neut Normal 2.0-7.[address] [facility] Comment on above: Result Comment: Canc elled via OM: Order cancelled - Patient discharged Performed By: #### L 8200.1075, M100.1999, M100.3000 #### [facility] [address] [place], [address] HCT Normal 40-[address] [facility] Comment on above: Result Comment: Canc elled via OM: Order cancelled - Patient discharged Performed By: #### L 8200.1075, M100.1999, M100.3000 #### [facility] [address] [place], [address] HGB Normal 13.0-16.[address] [facility] Comment on above: Result Comment: Canc elled via OM: Order cancelled - Patient discharged Performed By: #### L 8200.1075, M100.1999, M100.3000 #### [facility] [address] [place], [address] MCH Normal 27.0-32.[address] [facility] Comment on above: Result Comment: Canc elled via OM: Order cancelled - Patient discharged Performed By: #### L 8200.1075, M100.1999, M100.3000 #### [facility] [address] [place], [address] MCHC Normal 32-[address] [facility] Comment on above: Result Comment: Canc elled via OM: Order cancelled - Patient discharged Performed By: #### L 8200.1075, M100.2000, M100.3000 #### [facility] [address] [place], [address] MCV Normal 80-[address] [facility] Comment on above: Result Comment: Canc elled via OM: Order cancelled - Patient discharged Performed By: #### L 8200.1075, M100.2000, M100.3000 #### [facility] [address] [place], [address] NEUT% Normal 47-[address] [facility] Comment on above: Result Comment: Canc elled via OM: Order cancelled - Patient discharged Performed By: #### L 8200.1075, M100.2000, M100.3000 #### [facility] [address] [place], [address] PLT Normal 150-[address] [facility] Comment on above: Result Comment: Canc elled via OM: Order cancelled - Patient discharged Performed By: #### L 8200.1075, M100.1999, M100.3000 #### [facility] [address] [place], [address] RBC Normal 4.6-6.[address] [facility] Comment on above: Result Comment: Canc elled via OM: Order cancelled - Patient discharged Performed By: #### L 8200.1075, M100.2000, M100.3000 #### [facility] [address] [place], [address] RDW CV Normal 11.6-14.[address] [facility] Comment on above: Result Comment: Canc elled via OM: Order cancelled - Patient discharged Performed By: #### L 8200.1075, M100.1999, M100.3000 #### [facility] [address] [place], [address] RDW SD Normal 35.1-43.[address] [facility] Comment on above: Result Comment: Canc elled via OM: Order cancelled - Patient discharged Performed By: #### L 8200.1075, M100.1999, M100.3000 #### [facility] [address] [place], [address] WBC Normal 4.4-11.[address] [facility] Comment on above: Result Comment: Canc elled via OM: Order cancelled - Patient discharged Performed By: #### L 8200.1075, 00.1999, M100.3000 #### [facility] [address] [place], [address] Basic Metabolic Profile (BMP )on 02-22-2024 BUN Normal -[address] [facility] Comment on above: Result Comment: Canc elled via OM: Order cancelled - Patient discharged Performed By: #### L 8200.1075, .1999, M100.3000 #### [facility] [address] [place], [address] BUN/CRE Normal 10-[address] [facility] Comment on above: Result Comment: Canc elled via OM: Order cancelled - Patient discharged Performed By: #### L 8200.1075, M1.1999, M100.3000 #### [facility] [address] [place], [address] CA,Total Normal 8.5-10.[address] [facility] Comment on above: Result Comment: Canc elled via OM: Order cancelled - Patient discharged Performed By: #### L 8200.1075, M100.2000, M100.3000 #### [facility] [address] [place], [address] CL Normal 98-[address] [facility] Comment on above: Result Comment: Canc elled via OM: Order cancelled - Patient discharged Performed By: #### L 8200.1075, .1999, M100.3000 #### [facility] [address] [place], [address] CO2 Normal 21.0-32.[address] [facility] Comment on above: Result Comment: Canc elled via OM: Order cancelled - Patient discharged Performed By: #### L 8200.1075, .1999, M100.3000 #### [facility] [address] [place], [address] CREAT,SERUM Normal 0.70-1.[address] [facility] Comment on above: Result Comment: Canc elled via OM: Order cancelled - Patient discharged Performed By: #### L 8200.1075, .1999, M100.3000 #### [facility] [address] [place], [address] EST GFR Normal >[address] [facility] Comment on above: Result Comment: Canc elled via OM: Order cancelled - Patient discharged Performed By: #### L 8200.1075, .1999, M100.3000 #### [facility] [address] [place], [address] EST GFR - AA Normal >[address] [facility] Comment on above: Result Comment: Canc elled via OM: Order cancelled - Patient discharged Performed By: #### L 8200.1075, .1999, M100.3000 #### [facility] [address] [place], [address] GAP Normal 5-[address] [facility] Comment on above: Result Comment: Canc elled via OM: Order cancelled - Patient discharged Performed By: #### L 8200.1075, M100.1999, M100.3000 #### [facility] [address] [place], [address] GLU Normal 74-[address] [facility] Comment on above: Result Comment: Canc elled via OM: Order cancelled - Patient discharged Performed By: #### L 8200.1075, M100.1999, M100.3000 #### [facility] [address] [place], [address] Potassium Normal 3.5-5.[address] [facility] Comment on above: Result Comment: Canc elled via OM: Order cancelled - Patient discharged Performed By: #### L 8200.1075, M100.1999, M100.3000 #### [facility] [address] [place], [address] Basic Metabolic Profile (BMP) Normal 136-[address] [facility] Comment on above: Result Comment: Canc elled via OM: Order cancelled - Patient discharged Performed By: #### L 8200.1075, M100.1999, M100.3000 #### [facility] [address] [place], [address] CBC W/Diff, Automatedon 10-1 Absolute Neut Normal 2.0-7.[address] [facility] Comment on above: Result Comment: Canc elled via OM: Order cancelled - Patient discharged Performed By: #### L 8200.1075, M100.1999, M100.3000 #### [facility] [address] [place], [address] HCT Normal 40-[address] [facility] Comment on above: Result Comment: Canc elled via OM: Order cancelled - Patient discharged Performed By: #### L 8200.1075, M100.1999, M100.3000 #### [facility] [address] [place], [address] HGB Normal 13.0-16.[address] [facility] Comment on above: Result Comment: Canc elled via OM: Order cancelled - Patient discharged Performed By: #### L 8200.1075, M100.1999, M100.3000 #### [facility] [address] [place], [address] MCH Normal 27.0-32.[address] [facility] Comment on above: Result Comment: Canc elled via OM: Order cancelled - Patient discharged Performed By: #### L 8200.1075, M100.2000, M100.3000 #### [facility] [address] [place], [address] MCHC Normal 32-[address] [facility] Comment on above: Result Comment: Canc elled via OM: Order cancelled - Patient discharged Performed By: #### L 8200.1075, M100.1999, M100.3000 #### [facility] [address] [place], [address] MCV Normal 80-[address] [facility] Comment on above: Result Comment: Canc elled via OM: Order cancelled - Patient discharged Performed By: #### L 8200.1075, M100.1999, M100.3000 #### [facility] [address] [place], [address] NEUT% Normal 47-[address] [facility] Comment on above: Result Comment: Canc elled via OM: Order cancelled - Patient discharged Performed By: #### L 8200.1075, M100.1999, M100.3000 #### [facility] [address] [place], [address] PLT Normal 150-[address] [facility] Comment on above: Result Comment: Canc elled via OM: Order cancelled - Patient discharged Performed By: #### L 8200.1075, M100.2000, M100.3000 #### [facility] [address] [place], [address] RBC Normal 4.6-6.[address] [facility] Comment on above: Result Comment: Canc elled via OM: Order cancelled - Patient discharged Performed By: #### L 8200.1075, M100.1999, M100.3000 #### [facility] [address] [place], [address] RDW CV Normal 11.6-14.[address] [facility] Comment on above: Result Comment: Canc elled via OM: Order cancelled - Patient discharged Performed By: #### L 8200.1075, M100.1999, M100.3000 #### [facility] [address] [place], [address] RDW SD Normal 35.1-43.[address] [facility] Comment on above: Result Comment: Canc elled via OM: Order cancelled - Patient discharged Performed By: #### L 8200.1075, M100.1999, M100.3000 #### [facility] [address] [place], [address] WBC Normal 4.4-11.[address] [facility] Comment on above: Result Comment: Canc elled via OM: Order cancelled - Patient discharged Performed By: #### L 8200.1075, M100.1999, M100.3000 #### [facility] [address] [place], [address] Basic Metabolic Profile (BMP )on 02-15-2024 BUN/CRE 62.1 RATIO High - [facility] Comment on above: Performed By: #### L 100.0100, L506.1000, L500.4050, L501.9520, L501.9985 #### [facility] [address] [place], [address] CA,Total 9.0 mg/dL Normal 8.5-10.[address] [facility] Comment on above: Performed By: #### L 100.0100, L506.1000, L500.4050, L501.9520, L501.9985 #### [facility] [address] [place], [address] Chloride [Moles/Vol] 108 mmol/L High 98-107 [facility] Comment on above: Performed By: #### L 100.0100, L506.1000, L500.4050, L501.9520, L501.9985 #### [facility] [address] [place], [address] CO2 [Moles/Vol] 29.0 mmol/L Normal 21.0-32.[address] [facility] Comment on above: Performed By: #### L 100.0100, L506.1000, L500.4050, L501.9520, L501.9985 #### [facility] [address] [place], [address] Creatinine [Mass/Vol] 0.34 mg/dL Low 0.70-1.30 [facility] Comment on above: Result Comment: The validity of the calculated GFR GFRAA in patients over 70 years has not been determined. Clinical correlation is essential. Performed By: #### L 100.0100, L506.1000, L500.4050, L501.9520, L501.9985 #### [facility] [address] [place], [address] ECRCL 63.12 ml/min Normal [facility] Comment on above: Performed By: #### L 100.0100, L506.1000, L500.4050, L501.9520, L501.9985 #### [facility] [address] [place], [address] EST GFR - AA 319 mL/min Normal >[address] [facility] Comment on above: Result Comment: Afri can Qat[place] GFR Calc Performed By: #### L 100.0100, L506.1000, L500.4050, L501.9520, L501.9985 #### [facility] [address] [place], [address] GAP 2 Low 5-[address] [facility] Comment on above: Performed By: #### L 100.0100, L506.1000, L500.4050, L501.9520, L501.9985 #### [facility] [address] [place], [address] GFR/1.73 sq M.predicted among non-blacks MDRD (S/P/Bld) [Vol rate/Area] 264 mL/min/{1.73_m2} Normal >[address] [facility] Comment on above: Result Comment: Non- GFR Calc Performed By: #### L 100.0100, L506.1000, L500.4050, L501.9520, L501.9985 #### [facility] [address] [place], [address] Glucose [Mass/Vol] 90 mg/dL Normal 74-106 [facility] Comment on above: Performed By: #### L 100.0100, L506.1000, L500.4050, L501.9520, L501.9985 #### [facility] [address] [place], [address] Potassium [Moles/Vol] 4.3 mmol/L Normal 3.5-5.1 [facility] Comment on above: Performed By: #### L 100.0100, L506.1000, L500.4050, L501.9520, L501.9985 #### [facility] [address] [place], [address] Sodium [Moles/Vol] 139 mmol/L Normal 136-145 [facility] Comment on above: Performed By: #### L 100.0100, L506.1000, L500.4050, L501.9520, L501.9985 #### [facility] [address] [place], [address] Urea nitrogen [Mass/Vol] 21 mg/dL High 7-[address] [facility] Comment on above: Performed By: #### L 100.0100, L506.1000, L500.4050, L501.9520, L501.9985 #### [facility] [address] [place], [address] CBC W/Diff, Automatedon 02-04 Absolute Lymph 1.44 X10 3/uL Normal 0.83-4.[address] [facility] Comment on above: Performed By: #### L 100.0100, L506.1000, L500.4050, L501.9520, L501.9985 #### [facility] [address] [place], [address] Absolute Neut 2.1 X10 3/uL Normal 2.0-7.[address] [facility] Comment on above: Performed By: #### L 100.0100, L506.1000, L500.4050, L501.9520, L501.9985 #### [facility] [address] [place], [address] Basophils/100 WBC (Bld) 0.7 % Normal 0-1 [facility] Comment on above: Performed By: #### L 100.0100, L506.1000, L500.4050, L501.9520, L501.9985 #### [facility] [address] [place], [address] Eosinophils/100 WBC (Bld) 6.2 % High 0-[address] [facility] Comment on above: Performed By: #### L 100.0100, L506.1000, L500.4050, L501.9520, L501.9985 #### [facility] [address] [place], [address] Erythrocyte distribution width (RBC) [Ratio] 12.6 % Normal 11.6-14.[address] [facility] Comment on above: Performed By: #### L 100.0100, L506.1000, L500.4050, L501.9520, L501.9985 #### [facility] [address] [place], [address] Hematocrit (Bld) [Volume fraction] 35.0 % Low 40-[address] [facility] Comment on above: Performed By: #### L 100.0100, L506.1000, L500.4050, L501.9520, L501.9985 #### [facility] [address] [place], [address] Hemoglobin (Bld) [Mass/Vol] 11.5 g/dL Low 13.0-16.[address] [facility] Comment on above: Performed By: #### L 100.0100, L506.1000, L500.4050, L501.9520, L501.9985 #### [facility] [address] [place], [address] IG% 0.200 Normal 0.0-0.[address] [facility] Comment on above: Result Comment: IG% - Immature Granulocytes (promyelocytes, myelocytes and metamyelocytes) > 1% indicates that a LEFT SHIFT is Present. Performed By: #### L 100.0100, L506.1000, L500.4050, L501.9520, L501.9985 #### [facility] [address] [place], [address] Lymphocytes/100 WBC (Bld) 31.6 % Normal 19-[address] [facility] Comment on above: Performed By: #### L 100.0100, L506.1000, L500.4050, L501.9520, L501.9985 #### [facility] [address] [place], [address] MCH (RBC) [Entitic mass] 31.3 pg Normal 27.0-32.[address] [facility] Comment on above: Performed By: #### L 100.0100, L506.1000, L500.4050, L501.9520, L501.9985 #### [facility] [address] [place], [address] MCHC (RBC) [Mass/Vol] 32.9 g/dL Normal 32-36 [facility] Comment on above: Performed By: #### L 100.0100, L506.1000, L500.4050, L501.9520, L501.9985 #### [facility] [address] [place], [address] MCV (RBC) [Entitic vol] 95.1 fL High 80-94 [facility] Comment on above: Performed By: #### L 100.0100, L506.1000, L500.4050, L501.9520, L501.9985 #### [facility] [address] [place], [address] Monocytes/100 WBC (Bld) 14.5 % High 0-10 [facility] Comment on above: Performed By: #### L 100.0100, L506.1000, L500.4050, L501.9520, L501.9985 #### [facility] [address] [place], [address] Neutrophils/100 WBC (Bld) 46.8 % Low 47-[address] [facility] Comment on above: Performed By: #### L 100.0100, L506.1000, L500.4050, L501.9520, L501.9985 #### [facility] [address] [place], [address] Nucleated RBC (Bld) [#/Vol] 0 10*3/uL Normal 0-[address] [facility] Comment on above: Performed By: #### L 100.0100, L506.1000, L500.4050, L501.9520, L501.9985 #### [facility] [address] [place], [address] Platelet mean volume (Bld) [Entitic vol] 10.3 fL Normal 6.2-12.[address] [facility] Comment on above: Performed By: #### L 100.0100, L506.1000, L500.4050, L501.9520, L501.9985 #### [facility] [address] [place], [address] Platelets (Bld) [#/Vol] 209 10*3/uL Normal 150-[address] [facility] Comment on above: Performed By: #### L 100.0100, L506.1000, L500.4050, L501.9520, L501.9985 #### [facility] [address] [place], [address] RBC (Bld) [#/Vol] 3.68 10*6/uL Low 4.6-6.2 [facility] Comment on above: Performed By: #### L 100.0100, L506.1000, L500.4050, L501.9520, L501.9985 #### [facility] [address] [place], [address] RDW SD 43.9 fl Normal 35.1-43.[address] [facility] Comment on above: Performed By: #### L 100.0100, L506.1000, L500.4050, L501.9520, L501.9985 #### [facility] [address] [place], [address] WBC (Bld) [#/Vol] 4.6 10*3/uL Normal 4.4-11.0 [facility] Comment on above: Performed By: #### L 100.0100, L506.1000, L500.4050, L501.9520, L501.9985 #### [facility] [address] [place], [address] COVID 19 AG RAPID (PRASANTH Pruett)on 02-12-2024 SARS-CoV-2 (COVID-19) RNA MARK+probe Ql (Unsp spec) *Negative results from patients with symptom onset beyond five days should be treated as presumptive and confirmed by a molecular assay if clinically necessary. Negative results should not be used as the sole basis for treatment or for patient management. SARS-CoV-2 Ag Resp Ql IA.rapid *Positive results do not differentiate between SARS-CoV and SARS-CoV-2. If differentiation of the specific SARS virus is desired an additional sample and an additional order is required. SARS-CoV-2 Ag Resp Ql IA.rapid * This test has not been FDA cleared or approved; the test has been authorized by FDA under an Emergency Use Authorization (EAU) for use by laboratories certified under CLIA that meet the requirements to perform moderate, high, or waived complexity tests. SARS-CoV-2 Ag Resp Ql IA.rapid Normal Reference Range: Negative SARS-CoV-2 (COVID 19) Negative RAPID METHOD [employer] COVID19 Ag Card Normal [facility] Comment on above: Performed By: #### L 500.4050, L100.0100 #### [facility] [address] [place], [address] Basic Metabolic Profile (BMP )on 02-08-2024 BUN/CRE 52.3 RATIO High 10- [facility] Comment on above: Performed By: #### L 500.4050, L100.0100 #### [facility] [address] [place], [address] CA,Total 9.0 mg/dL Normal 8.5-10.[address] [facility] Comment on above: Performed By: #### L 500.4050, L100.0100 #### [facility] [address] [place], [address] Chloride [Moles/Vol] 106 mmol/L Normal 98-107 [facility] Comment on above: Performed By: #### L 500.4050, L100.0100 #### [facility] [address] [place], [address] CO2 [Moles/Vol] 28.0 mmol/L Normal 21.0-32.[address] [facility] Comment on above: Performed By: #### L 500.4050, L100.0100 #### [facility] [address] [place], [address] Creatinine [Mass/Vol] 0.32 mg/dL Low 0.70-1.30 [facility] Comment on above: Result Comment: The validity of the calculated GFR GFRAA in patients over 70 years has not been determined. Clinical correlation is essential. Performed By: #### L 500.4050, L100.0100 #### [facility] [address] [place], [address] ECRCL 63.12 ml/min Normal [facility] [facility] Comment on above: Performed By: #### L 500.4050, L100.0100 #### [facility] [address] [place], [address] EST GFR - AA 334 mL/min Normal >[address] [facility] Comment on above: Result Comment: Afri can Qatari GFR Calc Performed By: #### L 500.4050, L100.0100 #### [facility] [address] [place], [address] GAP 2 Low 5-[address] [facility] Comment on above: Performed By: #### L 500.4050, L100.0100 #### [facility] [address] [place], [address] GFR/1.73 sq M.predicted among non-blacks MDRD (S/P/Bld) [Vol rate/Area] 276 mL/min/{1.73_m2} Normal >[address] [facility] Comment on above: Result Comment: Non- GFR Calc Performed By: #### L 500.4050, L100.0100 #### [facility] [address] [place], [address] Glucose [Mass/Vol] 96 mg/dL Normal 74-106 [facility] Comment on above: Performed By: #### L 500.4050, L100.0100 #### [facility] [address] [place], [address] Potassium [Moles/Vol] 4.2 mmol/L Normal 3.5-5.1 [facility] Comment on above: Performed By: #### L 500.4050, L100.0100 #### [facility] [address] [place], [address] Sodium [Moles/Vol] 136 mmol/L Normal 136-145 [facility] Comment on above: Performed By: #### L 500.4050, L100.0100 #### [facility] [address] [place], [address] Urea nitrogen [Mass/Vol] 17 mg/dL Normal 7-[address] [facility] Comment on above: Performed By: #### L 500.4050, L100.0100 #### [facility] [address] [place], [address] CBC W/Diff, Automatedon 10-0 -2023 Absolute Lymph 1.48 X10 3/uL Normal 0.83-4.[address] [facility] Comment on above: Performed By: #### L 500.4050, L100.0100 #### [facility] [address] [place], [address] Absolute Neut 2.7 X10 3/uL Normal 2.0-7.[address] [facility] Comment on above: Performed By: #### L 500.4050, L100.0100 #### [facility] [address] [place], [address] Basophils/100 WBC (Bld) 0.6 % Normal 0-1 [facility] Comment on above: Performed By: #### L 500.4050, L100.0100 #### [facility] [address] [place], [address] Eosinophils/100 WBC (Bld) 3.6 % Normal 0-[address] [facility] Comment on above: Performed By: #### L 500.4050, L100.0100 #### [facility] [address] [place], [address] Erythrocyte distribution width (RBC) [Ratio] 12.4 % Normal 11.6-14.[address] [facility] Comment on above: Performed By: #### L 500.4050, L100.0100 #### [facility] [address] [place], [address] Hematocrit (Bld) [Volume fraction] 35.7 % Low 40-[address] [facility] Comment on above: Performed By: #### L 500.4050, L100.0100 #### [facility] [address] [place], [address] Hemoglobin (Bld) [Mass/Vol] 11.8 g/dL Low 13.0-16.[address] [facility] Comment on above: Performed By: #### L 500.4050, L100.0100 #### [facility] [address] [place], [address] IG% 0.400 Normal 0.0-0.[address] [facility] Comment on above: Result Comment: IG% - Immature Granulocytes (promyelocytes, myelocytes and metamyelocytes) > 1% indicates that a LEFT SHIFT is Present. Performed By: #### L 500.4050, L100.0100 #### [facility] [address] [place], [address] Lymphocytes/100 WBC (Bld) 28.0 % Normal 19-[address] [facility] Comment on above: Performed By: #### L 500.4050, L100.0100 #### [facility] [address] [place], [address] MCH (RBC) [Entitic mass] 31.1 pg Normal 27.0-32.[address] [facility] Comment on above: Performed By: #### L 500.4050, L100.0100 #### [facility] [address] [place], [address] MCHC (RBC) [Mass/Vol] 33.1 g/dL Normal 32-36 [facility] Comment on above: Performed By: #### L 500.4050, L100.0100 #### [facility] [address] [place], [address] MCV (RBC) [Entitic vol] 94.2 fL High 80-94 [facility] Comment on above: Performed By: #### L 500.4050, L100.0100 #### [facility] [address] [place], [address] Monocytes/100 WBC (Bld) 16.7 % High 0-10 [facility] Comment on above: Performed By: #### L 500.4050, L100.0100 #### [facility] [address] [place], [address] Neutrophils/100 WBC (Bld) 50.7 % Normal 47-[address] [facility] Comment on above: Performed By: #### L 500.4050, L100.0100 #### [facility] [address] [place], [address] Nucleated RBC (Bld) [#/Vol] 0 10*3/uL Normal 0-[address] [facility] Comment on above: Performed By: #### L 500.4050, L100.0100 #### [facility] [address] [place], [address] Platelet mean volume (Bld) [Entitic vol] 9.3 fL Normal 6.2-12.[address] [facility] Comment on above: Performed By: #### L 500.4050, L100.0100 #### [place] [facility] [address] [place], [address] Platelets (Bld) [#/Vol] 253 10*3/uL Normal 150-[address] [facility] Comment on above: Performed By: #### L 500.4050, L100.0100 #### [facility] [address] [place], [address] RBC (Bld) [#/Vol] 3.79 10*6/uL Low 4.6-6.2 [facility] Comment on above: Performed By: #### L 500.4050, L100.0100 #### [facility] [address] [place], [address] RDW SD 43.0 fl Normal 35.1-43.[address] [facility] Comment on above: Performed By: #### L 500.4050, L100.0100 #### [facility] [address] [place], [address] WBC (Bld) [#/Vol] 5.3 10*3/uL Normal 4.4-11.0 [facility] Comment on above: Performed By: #### L 500.4050, L100.0100 #### [facility] [address] [place], [address] Abdomen Single Viewon 2023 Abdomen Single View [facility] [address] [place] [address] Abdomen Single View MR#: [id number] Acct: [id number] Name: EVANGELISTA LANDRY Rep #: [id number] : 1940 M 83 From: Maeve oliver MD PCP: Dr. Taylor Zuniga, DO Status: ADM IN Study: Abdomen Single View Date of Exam: 02/06/24 Exam# [id number] Ordering Dr: Rey Henao MD -[id number] HISTORY: Constipation. TECHNIQUE: XR Abdomen 1 View. COMPARISON: CT 08/22/2018. FINDINGS: BOWEL GAS PATTERN: No dilated small bowel loops identified. Moderate stool throughout the colon down to the level of the rectum. FREE AIR: Not assessed on supine view. CALCIFICATIONS: Vascular calcifications observed. BONES: Degenerative change. RAD/Abdomen Single View IMPRESSION: Moderate stool throughout the colon. Electronically Signed: Maeve Arthur MD at 9:39 EDT , CC: Dr. Taylor Zuniga DO; Dr. Rey Henao MD Bar Supervisor: Signed [facility] Stool Occult Blood iFOBon STOB Negative [facility] Comment on above: Performed By: #### L 500.4050, L100.0100 #### [facility] [address] [place], [address] COVID 19 AG RAPID (RN COLLEC T)on 02-05-2024 SARS-CoV-2 (COVID-19) RNA MARK+probe Ql (Unsp spec) *Negative results from patients with symptom onset beyond five days should be treated as presumptive and confirmed by a molecular assay if clinically necessary. Negative results should not be used as the sole basis for treatment or for patient management. SARS-CoV-2 Ag Resp Ql IA.rapid *Positive results do not differentiate between SARS-CoV and SARS-CoV-2. If differentiation of the specific SARS virus is desired an additional sample and an additional order is required. SARS-CoV-2 Ag Resp Ql IA.rapid * This test has not been FDA cleared or approved; the test has been authorized by FDA under an Emergency Use Authorization (EAU) for use by laboratories certified under CLIA that meet the requirements to perform moderate, high, or waived complexity tests. SARS-CoV-2 Ag Resp Ql IA.rapid Normal Reference Range: Negative SARS-CoV-2 (COVID 19) Negative RAPID METHOD BinaxNow COVID19 Ag Card [facility] Comment on above: Performed By: #### L 8200.1075, M100.2000, M100.3000 #### [facility] [address] [place], [address] Chest PA and Lateralon 02-03 Chest PA and Lateral [facility] [address] [place] [address] Chest PA and Lateral MR#: [id number] Acct: [id number] Name: EVANGELISTA LANDRY Rep #: [id number] : 1940 M 83 From: Brandan Hendrix MD PCP: Dr. Taylor Zuniga DO Status: ADM IN Study: Chest PA and Lateral Date of Exam: 02/04/24 Exam# [id number] Ordering Dr: Rey Henao MD -[id number] STUDY: X-RAY CHEST REASON FOR EXAM: Male, 83 years old. Choking with productive cough. TECHNIQUE: Frontal and lateral views of the chest. COMPARISON: May 09, 2013 FINDINGS: Stable low volume inspiration. There is no demonstrated pleural abnormality. Cardiomegaly unchanged. Normal mediastinum and kandy. Normal visualized pulmonary arteries. Stable aortic tortuosity with calcification. 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 Normal visualized ribs, clavicles, and shoulders. Stable large hiatal hernia with air-fluid level. RAD/Chest PA and Lateral IMPRESSION: Stable chest with no acute or active cardiopulmonary disease. Electronically Signed: Brandan Hendrix MD at 12:05 EDT , CC: Dr. Taylor Zuniga DO; Dr. Rey Henao MD Bar Supervisor: Signed Normal [facility] Culture, Blood (WB)on 2023 CUB Blood cultures x2, from two different sites No growth in [address] [facility] Comment on above: Performed By: #### L 100.0100, L506.1000, L500.4050, L501.9520, L501.9985 #### [facility] [address] [place], [address] Basic Metabolic Profile (BMP )on 02-02-2024 BUN/CRE 31.3 RATIO High 10-[address] [facility] Comment on above: Performed By: #### L 8200.1075, M100.1999, M100.3000 #### [facility] [address] [place], [address] CA,Total 8.8 mg/dL Normal 8.5-10.[address] [facility] Comment on above: Performed By: #### L 8200.1075, M100.1999, M100.3000 #### [facility] [address] [place], [address] Chloride [Moles/Vol] 104 mmol/L Normal 98-107 [facility] Comment on above: Performed By: #### L 8200.1075, M100.2000, M100.3000 #### [facility] [address] [place], [address] CO2 [Moles/Vol] 28.0 mmol/L Normal 21.0-32.[address] [facility] Comment on above: Performed By: #### L 8200.1075, M100.2000, M100.3000 #### [facility] [address] [place], [address] Creatinine [Mass/Vol] 0.32 mg/dL Low 0.70-1.30 [facility] Comment on above: Result Comment: The validity of the calculated GFR GFRAA in patients over 70 years has not been determined. Clinical correlation is essential. Performed By: #### L 8200.1075, .1999, .3000 #### [facility] [address] [place], [address] ECRCL 63.12 ml/min Normal [facility] Comment on above: Performed By: #### L 8200.1075, .1999, M100.3000 #### [facility] [address] [place], [address] EST GFR - AA 341 mL/min Normal >[address] [facility] Comment on above: Result Comment: Afri can Qatari GFR Calc Performed By: #### L 8200.1075, .1999, .3000 #### [facility] [address] [place], [address] GAP 4 Low 5-[address] [facility] Comment on above: Performed By: #### L 8200.1075, , .3000 #### [facility] [address] [place], [address] GFR/1.73 sq M.predicted among non-blacks MDRD (S/P/Bld) [Vol rate/Area] 282 mL/min/{1.73_m2} Normal >[address] [facility] Comment on above: Result Comment: Non- GFR Calc Performed By: #### L 8200.1075, , .3000 #### [facility] [address] [place], [address] Glucose [Mass/Vol] 95 mg/dL Normal 74-106 [facility] Comment on above: Performed By: #### L 8200.1075, M1.1999, .3000 #### [facility] [address] [place], [address] Potassium [Moles/Vol] 4.0 mmol/L Normal 3.5-5.1 [facility] Comment on above: Performed By: #### L 8200.1075, M1.1999, M100.3000 #### [facility] [address] [place], [address] Sodium [Moles/Vol] 136 mmol/L Normal 136-145 [facility] Comment on above: Performed By: #### L 8200.1075, .1999, M100.3000 #### [facility] [address] [place], [address] Urea nitrogen [Mass/Vol] 10 mg/dL Normal 7-[address] [facility] Comment on above: Performed By: #### L 8200.1075, , M100.3000 #### [facility] [address] [place], [address] CBC W/Diff, Automatedon 01-06 Absolute Lymph 1.16 X10 3/uL Normal 0.83-4.[address] [facility] Comment on above: Performed By: #### L 8200.1075, .1999, M100.3000 #### [facility] [address] [place], [address] Absolute Neut 3.5 X10 3/uL Normal 2.0-7.[address] [facility] Comment on above: Performed By: #### L 8200.1075, .1999, M100.3000 #### [facility] [address] [place], [address] Basophils/100 WBC (Bld) 0.5 % Normal 0-1 [facility] Comment on above: Performed By: #### L 8200.1075, M1.1999, M100.3000 #### [facility] [address] [place], [address] Eosinophils/100 WBC (Bld) 2.7 % Normal 0-[address] [facility] Comment on above: Performed By: #### L 8200.1075, , M100.3000 #### [facility] [address] [place], [address] Erythrocyte distribution width (RBC) [Ratio] 11.9 % Normal 11.6-14.[address] [facility] Comment on above: Performed By: #### L 8200.1075, , #### [facility] [address] [place], [address] Hematocrit (Bld) [Volume fraction] 33.4 % Low 40-[address] [facility] Comment on above: Performed By: #### L 8200.1075, , #### [facility] [address] [place], [address] Hemoglobin (Bld) [Mass/Vol] 11.3 g/dL Low 13.0-16.[address] [facility] Comment on above: Performed By: #### L 8200.1075, , #### [facility] [address] [place], [address] IG% 0.400 Normal 0.0-0.[address] [facility] Comment on above: Result Comment: IG% - Immature Granulocytes (promyelocytes, myelocytes and metamyelocytes) > 1% indicates that a LEFT SHIFT is Present. Performed By: #### L 8200.1075, , #### [facility] [address] [place], [address] Lymphocytes/100 WBC (Bld) 20.9 % Normal 19-[address] [facility] Comment on above: Performed By: #### L 8200.1075, , .2999 #### [facility] [address] [place], [address] MCH (RBC) [Entitic mass] 31.5 pg Normal 27.0-32.[address] [facility] Comment on above: Performed By: #### L 8200.1075, M1.1999, M100.3000 #### [facility] [address] [place], [address] MCHC (RBC) [Mass/Vol] 33.8 g/dL Normal 32-36 [facility] Comment on above: Performed By: #### L 8200.1075, .1999, M100.3000 #### [facility] [address] [place], [address] MCV (RBC) [Entitic vol] 93.0 fL Normal 80-94 [facility] Comment on above: Performed By: #### L 8200.1075, , M100.3000 #### [facility] [address] [place], [address] Monocytes/100 WBC (Bld) 13.3 % High 0-10 [facility] Comment on above: Performed By: #### L 8200.1075, .1999, M100.3000 #### [facility] [address] [place], [address] Neutrophils/100 WBC (Bld) 62.2 % Normal 47-[address] [facility] Comment on above: Performed By: #### L 8200.1075, .1999, M100.3000 #### [facility] [address] [place], [address] Nucleated RBC (Bld) [#/Vol] 0 10*3/uL Normal 0-[address] [facility] Comment on above: Performed By: #### L 8200.1075, .1999, M100.3000 #### [facility] [address] [place], [address] Platelet mean volume (Bld) [Entitic vol] 9.2 fL Normal 6.2-12.[address] [facility] Comment on above: Performed By: #### L 8200.1075, .1999, M100.3000 #### [facility] [address] [place], [address] Platelets (Bld) [#/Vol] 247 10*3/uL Normal 150-[address] [facility] Comment on above: Performed By: #### L 8200.1075, M100.1999, M100.3000 #### [facility] [address] [place], [address] RBC (Bld) [#/Vol] 3.59 10*6/uL Low 4.6-6.2 [facility] Comment on above: Performed By: #### L 8200.1075, M100.1999, M100.3000 #### [facility] [address] [place], [address] RDW SD 41.1 fl Normal 35.1-43.[address] [facility] Comment on above: Performed By: #### L 8200.1075, M100.1999, M100.3000 #### [facility] [address] [place], [address] WBC (Bld) [#/Vol] 5.6 10*3/uL Normal 4.4-11.0 [facility] Comment on above: Performed By: #### L 8200.1075, M100.1999, M100.3000 #### [facility] [address] [place], [address] Wound Cultureon 02-02-2024 Copy of report sent to Infection Control Printer MS#[id number] 02/02/24 0634 BLUCAS. Pseudomonas aeruginosa Amount Growth 3+ Citrobacter koseri Amount Growth 3+ Meth. resistant Staph. aureus Amount Growth Rare mecA Testing not performed Pseudomonas aeruginosa: REACTION Aztreonam Islt KB 22 S Pseudomonas aeruginosa: REACTION Amikacin Islt BRENT <=2 S Cefepime Islt BRENT 2 S Ciprofloxacin Islt BRENT <=0.25 S Imipenem Islt BRENT 1 S levoFLOXacin Islt BRENT 0.5 S Meropenem Islt BRENT <=0.25 S Pip+Tazo Islt BRENT <=4 S Tobramycin Islt BRENT <=1 S Citrobacter koseri: REACTION ceFAZolin Islt BRENT <=4 S Cefepime Islt BRENT <=0.12 S cefTRIAXone Islt BRENT <=0.25 S Ciprofloxacin Islt BRENT <=0.25 S Ertapenem Islt BRENT <=0.12 S Gentamicin Islt BRENT <=1 S Imipenem Islt BRENT <=0.25 S levoFLOXacin Islt BRNET <=0.12 S Pip+Tazo Islt BRENT <=4 S Tobramycin Islt BRENT <=1 S TMP SMX Islt BRENT <=20 S Meth. resistant Staph. aureus: REACTION cefOXitin Susc Islt POS Doxycycline Islt BRENT <=0.5 S Clindamycin.induced Susc Islt POS Erythromycin Islt BRENT R Gentamicin Islt BRENT <=0.5 S Linezolid Islt BRENT 2 S Oxacillin Susc Islt >=4 R Tetracycline Islt BRENT <=1 S TMP SMX Islt BRENT <=10 S Vancomycin Islt BRENT [address] [facility] Comment on above: Performed By: #### L 8200.1075, .1999, M100.3000 #### [facility] [address] [place], [address] Basic Metabolic Profile (BMP )on 02-01-2024 BUN/CRE 27.0 RATIO High 10-[address] [facility] Comment on above: Performed By: #### L 8200.1075, , M100.3000 #### [facility] [address] [place], [address] CA,Total 8.6 mg/dL Normal 8.5-10.[address] [facility] Comment on above: Performed By: #### L 8200.1075, M1.1999, M100.3000 #### [facility] [address] [place], [address] Chloride [Moles/Vol] 102 mmol/L Normal 98-107 [facility] Comment on above: Performed By: #### L 8200.1075, .1999, M1.3000 #### [facility] [address] [place], [address] CO2 [Moles/Vol] 27.0 mmol/L Normal 21.0-32.[address] [facility] Comment on above: Performed By: #### L 8200.1075, , .3000 #### [facility] [address] [place], [address] Creatinine [Mass/Vol] 0.26 mg/dL Low 0.70-1.30 [facility] Comment on above: Result Comment: The validity of the calculated GFR GFRAA in patients over 70 years has not been determined. Clinical correlation is essential. Performed By: #### L 8200.1075, , .2999 #### [facility] [address] [place], [address] ECRCL 63.12 ml/min Normal [facility] Comment on above: Performed By: #### L 8200.1075, , M100.3000 #### [facility] [address] [place], [address] EST GFR - AA 434 mL/min Normal >[address] [facility] Comment on above: Result Comment: Afri can Qatari GFR Calc Performed By: #### L 8200.1075, , .3000 #### [facility] [address] [place], [address] GAP 5 Normal 5-[address] [facility] Comment on above: Performed By: #### L 8200.1075, , .3000 #### [facility] [address] [place], [address] GFR/1.73 sq M.predicted among non-blacks MDRD (S/P/Bld) [Vol rate/Area] 359 mL/min/{1.73_m2} Normal >[address] [facility] Comment on above: Result Comment: Non- GFR Calc Performed By: #### L 8200.1075, M1.1999, M100.3000 #### [facility] [address] [place], [address] Glucose [Mass/Vol] 89 mg/dL Normal 74-106 [facility] Comment on above: Performed By: #### L 8200.1075, .1999, M100.3000 #### [facility] [address] [place], [address] Potassium [Moles/Vol] 3.8 mmol/L Normal 3.5-5.1 [facility] Comment on above: Performed By: #### L 8200.1075, .1999, M100.2999 #### [facility] [address] [place], [address] Sodium [Moles/Vol] 134 mmol/L Low 136-145 [facility] Comment on above: Performed By: #### L 8200.1075, .1999, M100.3000 #### [facility] [address] [place], [address] Urea nitrogen [Mass/Vol] 7 mg/dL Normal 7-[address] [facility] Comment on above: Performed By: #### L 8200.1075, , M100.3000 #### [facility] [address] [place], [address] Vancomycin, Trough Levelon 02-01-2024 VANCO, TROUGH 8.9 ug/mL Normal 5.0-15.[address] [facility] Comment on above: Order Comment: 0400 Result Comment: VANC OMYCIN STANDARED DRUG THERAPY TROUGH LEVEL: 5.0 - 15.0 mg/L VANCOMYCIN HIGH INTENSITY THERAPY TROUGH LEVEL: 15.0 - 20.0 mg/L High Intensity therapy recommended for serious life threatening infections include: - Meningitis -Endocarditis -Pneumonia (Ventilator/Healtcare Associated) -Sepsis PLEASE CONTACT PHARMACY SERVICES (#[phone]) FOR INTERPRETATION OF RESULTS. Performed By: #### L 8200.1075, M100.2000, M100.3000 #### [facility] [address] [place], [address] Basic Metabolic Profile (BMP )on 01-31-2024 BUN/CRE 29.9 RATIO High 10-[address] [facility] Comment on above: Performed By: #### L 500.4050, L100.0100 #### [facility] [address] [place], [address] CA,Total 8.4 mg/dL Low 8.5-10.[address] [facility] Comment on above: Performed By: #### L 500.4050, L100.0100 #### [facility] [address] [place], [address] Chloride [Moles/Vol] 104 mmol/L Normal 98-107 [facility] Comment on above: Performed By: #### L 500.4050, L100.0100 #### [facility] [address] [place], [address] CO2 [Moles/Vol] 24.0 mmol/L Normal 21.0-32.[address] [facility] Comment on above: Performed By: #### L 500.4050, L100.0100 #### [facility] [address] [place], [address] Creatinine [Mass/Vol] 0.30 mg/dL Low 0.70-1.30 [facility] Comment on above: Result Comment: The validity of the calculated GFR GFRAA in patients over 70 years has not been determined. Clinical correlation is essential. Performed By: #### L 500.4050, L100.0100 #### [facility] [address] [place], [address] ECRCL 63.12 ml/min Normal [facility] Comment on above: Performed By: #### L 500.4050, L100.0100 #### [facility] [address] [place], [address] EST GFR - AA 365 mL/min Normal >[address] [facility] Comment on above: Result Comment: Afri can [place]ari GFR Calc Performed By: #### L 500.4050, L100.0100 #### [facility] Laboratory [address] [place], [address] GAP 6 Normal 5-[address] [facility] Comment on above: Performed By: #### L 500.4050, L100.0100 #### [facility] [address] [place], [address] GFR/1.73 sq M.predicted among non-blacks MDRD (S/P/Bld) [Vol rate/Area] 301 mL/min/{1.73_m2} Normal >[address] [facility] Comment on above: Result Comment: Non- GFR Calc Performed By: #### L 500.4050, L100.0100 #### [facility] [address] [place], [address] Glucose [Mass/Vol] 87 mg/dL Normal 74-106 [facility] Comment on above: Performed By: #### L 500.4050, L100.0100 #### [facility] [address] [place], [address] Potassium [Moles/Vol] 4.0 mmol/L Normal 3.5-5.1 [facility] Comment on above: Result Comment: Slig ht Hemolysis, Result may be falsely increased. Performed By: #### L 500.4050, L100.0100 #### [facility] [address] [place], [address] Sodium [Moles/Vol] 134 mmol/L Low 136-145 [facility] Comment on above: Performed By: #### L 500.4050, L100.0100 #### [facility] [address] [place], [address] Urea nitrogen [Mass/Vol] 9 mg/dL Normal 7-[address] [facility] Comment on above: Performed By: #### L 500.4050, L100.0100 #### [facility] [address] [place], [address] CBC W/Diff, Automatedon -06 12-2023 Absolute Lymph 1.32 X10 3/uL Normal 0.83-4.[address] [facility] Comment on above: Performed By: #### L 500.4050, L100.0100 #### [facility] [address] [place], [address] Absolute Neut 4.7 X10 3/uL Normal 2.0-7.[address] [facility] Comment on above: Performed By: #### L 500.4050, L100.0100 #### [facility] [address] [place], [address] Basophils/100 WBC (Bld) 0.4 % Normal 0-1 [facility] Comment on above: Performed By: #### L 500.4050, L100.0100 #### [facility] [address] [place], [address] Eosinophils/100 WBC (Bld) 1.9 % Normal 0-[address] [facility] Comment on above: Performed By: #### L 500.4050, L100.0100 #### [facility] [address] [place], [address] Erythrocyte distribution width (RBC) [Ratio] 11.9 % Normal 11.6-14.[address] [facility] Comment on above: Performed By: #### L 500.4050, L100.0100 #### [facility] [address] [place], [address] Hematocrit (Bld) [Volume fraction] 33.1 % Low 40-[address] [facility] Comment on above: Performed By: #### L 500.4050, L100.0100 #### [facility] [address] [place], [address] Hemoglobin (Bld) [Mass/Vol] 11.1 g/dL Low 13.0-16.[address] [facility] Comment on above: Performed By: #### L 500.4050, L100.0100 #### [facility] [address] [place], [address] IG% 0.400 Normal 0.0-0.[address] [facility] Comment on above: Result Comment: IG% - Immature Granulocytes (promyelocytes, myelocytes and metamyelocytes) > 1% indicates that a LEFT SHIFT is Present. Performed By: #### L 500.4050, L100.0100 #### [facility] [address] [place], [address] Lymphocytes/100 WBC (Bld) 18.0 % Low 19-[address] [facility] Comment on above: Performed By: #### L 500.4050, L100.0100 #### [facility] [address] [place], [address] MCH (RBC) [Entitic mass] 31.8 pg Normal 27.0-32.[address] [facility] Comment on above: Performed By: #### L 500.4050, L100.0100 #### [facility] [address] [place], [address] MCHC (RBC) [Mass/Vol] 33.5 g/dL Normal 32-36 [facility] Comment on above: Performed By: #### L 500.4050, L100.0100 #### [facility] [address] [place], [address] MCV (RBC) [Entitic vol] 94.8 fL High 80-94 [facility] Comment on above: Performed By: #### L 500.4050, L100.0100 #### [facility] [address] [place], [address] Monocytes/100 WBC (Bld) 15.7 % High 0-10 [facility] Comment on above: Performed By: #### L 500.4050, L100.0100 #### [facility] [address] [place], [address] Neutrophils/100 WBC (Bld) 63.6 % Normal 47-[address] [facility] Comment on above: Performed By: #### L 500.4050, L100.0100 #### [facility] [address] [place], [address] Nucleated RBC (Bld) [#/Vol] 0 10*3/uL Normal 0-[address] [facility] Comment on above: Performed By: #### L 500.4050, L100.0100 #### [facility] [address] [place], [address] Platelet mean volume (Bld) [Entitic vol] 9.4 fL Normal 6.2-12.[address] [facility] Comment on above: Performed By: #### L 500.4050, L100.0100 #### [facility] [address] [place], [address] Platelets (Bld) [#/Vol] 216 10*3/uL Normal 150-[address] [facility] Comment on above: Performed By: #### L 500.4050, L100.0100 #### [facility] [address] [place], [address] RBC (Bld) [#/Vol] 3.49 10*6/uL Low 4.6-6.2 [facility] Comment on above: Performed By: #### L 500.4050, L100.0100 #### [place] [facility] [address] [place], [address] RDW SD 41.0 fl Normal 35.1-43.[address] [facility] Comment on above: Performed By: #### L 500.4050, L100.0100 #### [facility] [address] [place], [address] WBC (Bld) [#/Vol] 7.3 10*3/uL Normal 4.4-11.0 [facility] Comment on above: Performed By: #### L 500.4050, L100.0100 #### [facility] [address] [place], [address] Basic Metabolic Profile (BMP )on 01-30-2024 BUN/CRE 30.2 RATIO High 10-[address] [facility] Comment on above: Performed By: #### L 100.0100, L506.1000, L500.4050, L501.9520, L501.9985 #### [facility] [address] [place], [address] CA,Total 8.6 mg/dL Normal 8.5-10.[address] [facility] Comment on above: Performed By: #### L 100.0100, L506.1000, L500.4050, L501.9520, L501.9985 #### [facility] [address] [place], [address] Chloride [Moles/Vol] 103 mmol/L Normal 98-107 [facility] Comment on above: Performed By: #### L 100.0100, L506.1000, L500.4050, L501.9520, L501.9985 #### [facility] [address] [place], [address] CO2 [Moles/Vol] 26.0 mmol/L Normal 21.0-32.[address] [facility] Comment on above: Performed By: #### L 100.0100, L506.1000, L500.4050, L501.9520, L501.9985 #### [facility] [address] [place], [address] Creatinine [Mass/Vol] 0.23 mg/dL Low 0.70-1.30 [facility] Comment on above: Result Comment: The validity of the calculated GFR GFRAA in patients over 70 years has not been determined. Clinical correlation is essential. Performed By: #### L 100.0100, L506.1000, L500.4050, L501.9520, L501.9985 #### [facility] [address] [place], [address] ECRCL 63.12 ml/min Normal [facility] Comment on above: Performed By: #### L 100.0100, L506.1000, L500.4050, L501.9520, L501.9985 #### [facility] [address] [place], [address] EST GFR - AA 493 mL/min Normal >[address] [facility] Comment on above: Result Comment: Afri can [place] GFR Calc Performed By: #### L 100.0100, L506.1000, L500.4050, L501.9520, L501.9985 #### [facility] [address] [place], [address] GAP 5 Normal 5-[address] [facility] Comment on above: Performed By: #### L 100.0100, L506.1000, L500.4050, L501.9520, L501.9985 #### [facility] [address] [place], [address] GFR/1.73 sq M.predicted among non-blacks MDRD (S/P/Bld) [Vol rate/Area] 407 mL/min/{1.73_m2} Normal >[address] [facility] Comment on above: Result Comment: Non- GFR Calc Performed By: #### L 100.0100, L506.1000, L500.4050, L501.9520, L501.9985 #### [facility] [address] [place], [address] Glucose [Mass/Vol] 100 mg/dL Normal 74-106 [facility] Comment on above: Result Comment: Fast ing Glucose result from 100 to 125 mg/dL suggests IMPAIRED HOMEOSTASIS per A.D.A. criteria. Performed By: #### L 100.0100, L506.1000, L500.4050, L501.9520, L501.9985 #### [facility] [address] [place], [address] Potassium [Moles/Vol] 4.0 mmol/L Normal 3.5-5.1 [facility] Comment on above: Performed By: #### L 100.0100, L506.1000, L500.4050, L501.9520, L501.9985 #### [facility] [address] [place], [address] Sodium [Moles/Vol] 134 mmol/L Low 136-145 [facility] Comment on above: Performed By: #### L 100.0100, L506.1000, L500.4050, L501.9520, L501.9985 #### [facility] [address] [place], [address] Urea nitrogen [Mass/Vol] 7 mg/dL Normal 7-[address] [facility] Comment on above: Performed By: #### L 100.0100, L506.1000, L500.4050, L501.9520, L501.9985 #### [facility] [address] [place], [address] CBC W/Diff, Automatedon 09-2 Absolute Lymph 1.18 X10 3/uL Normal 0.83-4.[address] [facility] Comment on above: Performed By: #### L 100.0100, L506.1000, L500.4050, L501.9520, L501.9985 #### [facility] [address] [place], [address] Absolute Neut 4.3 X10 3/uL Normal 2.0-7.[address] [facility] Comment on above: Performed By: #### L 100.0100, L506.1000, L500.4050, L501.9520, L501.9985 #### [facility] [address] [place], [address] Basophils/100 WBC (Bld) 0.3 % Normal 0-1 [facility] Comment on above: Performed By: #### L 100.0100, L506.1000, L500.4050, L501.9520, L501.9985 #### [facility] [address] [place], [address] Eosinophils/100 WBC (Bld) 1.5 % Normal 0-[address] [facility] Comment on above: Performed By: #### L 100.0100, L506.1000, L500.4050, L501.9520, L501.9985 #### [facility] [address] [place], [address] Erythrocyte distribution width (RBC) [Ratio] 11.9 % Normal 11.6-14.[address] [facility] Comment on above: Performed By: #### L 100.0100, L506.1000, L500.4050, L501.9520, L501.9985 #### [facility] [address] [place], [address] Hematocrit (Bld) [Volume fraction] 31.8 % Low 40-[address] [facility] Comment on above: Performed By: #### L 100.0100, L506.1000, L500.4050, L501.9520, L501.9985 #### [facility] [address] [place], [address] Hemoglobin (Bld) [Mass/Vol] 10.7 g/dL Low 13.0-16.[address] [facility] Comment on above: Performed By: #### L 100.0100, L506.1000, L500.4050, L501.9520, L501.9985 #### [facility] [address] [place], [address] IG% 0.400 Normal 0.0-0.[address] [facility] Comment on above: Result Comment: IG% - Immature Granulocytes (promyelocytes, myelocytes and metamyelocytes) > 1% indicates that a LEFT SHIFT is Present. Performed By: #### L 100.0100, L506.1000, L500.4050, L501.9520, L501.9985 #### [facility] [address] [place], [address] Lymphocytes/100 WBC (Bld) 17.5 % Low 19-[address] [facility] Comment on above: Performed By: #### L 100.0100, L506.1000, L500.4050, L501.9520, L501.9985 #### [facility] [address] [place], [address] MCH (RBC) [Entitic mass] 31.5 pg Normal 27.0-32.[address] [facility] Comment on above: Performed By: #### L 100.0100, L506.1000, L500.4050, L501.9520, L501.9985 #### [facility] [address] [place], [address] MCHC (RBC) [Mass/Vol] 33.6 g/dL Normal 32-36 [facility] Comment on above: Performed By: #### L 100.0100, L506.1000, L500.4050, L501.9520, L501.9985 #### [facility] [address] [place], [address] MCV (RBC) [Entitic vol] 93.5 fL Normal 80-94 [facility] Comment on above: Performed By: #### L 100.0100, L506.1000, L500.4050, L501.9520, L501.9985 #### [facility] [address] [place], [address] Monocytes/100 WBC (Bld) 16.3 % High 0-10 [facility] Comment on above: Performed By: #### L 100.0100, L506.1000, L500.4050, L501.9520, L501.9985 #### [facility] [address] [place], [address] Neutrophils/100 WBC (Bld) 64.0 % Normal 47-[address] [facility] Comment on above: Performed By: #### L 100.0100, L506.1000, L500.4050, L501.9520, L501.9985 #### [facility] [address] [place], [address] Nucleated RBC (Bld) [#/Vol] 0 10*3/uL Normal 0-[address] [facility] Comment on above: Performed By: #### L 100.0100, L506.1000, L500.4050, L501.9520, L501.9985 #### [facility] [address] [place], [address] Platelet mean volume (Bld) [Entitic vol] 9.7 fL Normal 6.2-12.[address] [facility] Comment on above: Performed By: #### L 100.0100, L506.1000, L500.4050, L501.9520, L501.9985 #### [facility] [address] [place], [address] Platelets (Bld) [#/Vol] 231 10*3/uL Normal 150-[address] [facility] Comment on above: Performed By: #### L 100.0100, L506.1000, L500.4050, L501.9520, L501.9985 #### [facility] [address] [place], [address] RBC (Bld) [#/Vol] 3.40 10*6/uL Low 4.6-6.2 [facility] Comment on above: Performed By: #### L 100.0100, L506.1000, L500.4050, L501.9520, L501.9985 #### [facility] [address] [place], [address] RDW SD 40.7 fl Normal 35.1-43.[address] [facility] Comment on above: Performed By: #### L 100.0100, L506.1000, L500.4050, L501.9520, L501.9985 #### [facility] [address] [place], [address] WBC (Bld) [#/Vol] 6.8 10*3/uL Normal 4.4-11.0 [facility] Comment on above: Performed By: #### L 100.0100, L506.1000, L500.4050, L501.9520, L501.9985 #### [facility] [address] [place], [address] Gram Stainon 01-30-2024 Gram Stain Rare Epithelial cells No organisms seen No White Blood Cells Normal [facility] Comment on above: Performed By: #### L 8200.1075, M100.2000, M100.3000 #### [facility] [address] [place], [address] MRSA Wound DNA by PCRon 01-06 MRSA DNA ASSAY Positive Abnormal Negative [facility] Comment on above: Order Comment: right leg Performed By: #### L 8200.1075, M100.2000, M100.3000 #### [facility] [address] [place], [address] SA DNA ASSAY Positive Abnormal Negative [facility] Comment on above: Order Comment: right leg Performed By: #### L 8200.1075, M100.1999, M100.3000 #### [facility] [address] [place], [address] Magnesiumon 01-30-2024 Magnesium [Mass/Vol] 1.9 mg/dL Normal 1.6-2.6 [facility] Comment on above: Performed By: #### L 100.0100, L506.1000, L500.4050, L501.9520, L501.9985 #### [facility] [address] [place], [address] BNP,B-Type NATRIURETIC PEPTI Xochitl 01-29-2024 Natriuretic peptide B (Bld) [Mass/Vol] 19.1 pg/mL Normal 0-[address] [facility] Comment on above: Performed By: #### L 100.0100, L506.1000, L500.4050, L501.9520, L501.9985 #### [facility] [address] [place], [address] Basic Metabolic Profile (BMP )on 01-29-2024 BUN/CRE 29.5 RATIO High 10-[address] [facility] Comment on above: Performed By: #### L 500.4050, L100.0100 #### [facility] [address] [place], [address] CA,Total 8.9 mg/dL Normal 8.5-10.[address] [facility] Comment on above: Performed By: #### L 500.4050, L100.0100 #### [facility] [address] [place], [address] Chloride [Moles/Vol] 101 mmol/L Normal 98-107 [facility] Comment on above: Performed By: #### L 500.4050, L100.0100 #### [facility] [address] [place], [address] CO2 [Moles/Vol] 29.0 mmol/L Normal 21.0-32.[address] [facility] Comment on above: Performed By: #### L 500.4050, L100.0100 #### [facility] [address] [place], [address] Creatinine [Mass/Vol] 0.34 mg/dL Low 0.70-1.30 [facility] Comment on above: Result Comment: The validity of the calculated GFR GFRAA in patients over 70 years has not been determined. Clinical correlation is essential. Performed By: #### L 500.4050, L100.0100 #### [facility] [address] [place], [address] ECRCL 63.12 ml/min Normal [facility] Comment on above: Performed By: #### L 500.4050, L100.0100 #### [facility] [address] [place], [address] EST GFR - AA 318 mL/min Normal >[address] [facility] Comment on above: Result Comment: Afri can [place] GFR Calc Performed By: #### L 500.4050, L100.0100 #### [facility] [address] [place], [address] GAP 3 Low 5-[address] [facility] Comment on above: Performed By: #### L 500.4050, L100.0100 #### [facility] [address] [place], [address] GFR/1.73 sq M.predicted among non-blacks MDRD (S/P/Bld) [Vol rate/Area] 263 mL/min/{1.73_m2} Normal >[address] [facility] Comment on above: Result Comment: Non- GFR Calc Performed By: #### L 500.4050, L100.0100 #### [facility] [address] [place], [address] Glucose [Mass/Vol] 127 mg/dL High 74-106 [facility] Comment on above: Result Comment: Fast ing Glucose result greater than or equal to 126 mg/dL suggests DIABETES MELLITUS per A.D.A. criteria. Performed By: #### L 500.4050, L100.0100 #### [facility] [address] [place], [address] Potassium [Moles/Vol] 4.3 mmol/L Normal 3.5-5.1 [facility] Comment on above: Performed By: #### L 500.4050, L100.0100 #### [facility] [address] [place], [address] Sodium [Moles/Vol] 133 mmol/L Low 136-145 [facility] Comment on above: Performed By: #### L 500.4050, L100.0100 #### [facility] [address] [place], [address] Urea nitrogen [Mass/Vol] 10 mg/dL Normal 7-[address] [facility] Comment on above: Performed By: #### L 500.4050, L100.0100 #### [facility] [address] [place], [address] CBC W/Diff, Automatedon 09-2 -2023 Absolute Lymph 0.60 X10 3/uL Low 0.83-4.[address] [facility] Comment on above: Performed By: #### L 500.4050, L100.0100 #### [facility] [address] [place], [address] Absolute Neut 5.4 X10 3/uL Normal 2.0-7.[address] [facility] Comment on above: Performed By: #### L 500.4050, L100.0100 #### [facility] [address] [place], [address] Basophils/100 WBC (Bld) 0.3 % Normal 0-1 [facility] Comment on above: Performed By: #### L 500.4050, L100.0100 #### [facility] [address] [place], [address] Eosinophils/100 WBC (Bld) 0.9 % Normal 0-[address] [facility] Comment on above: Performed By: #### L 500.4050, L100.0100 #### [facility] [address] [place], [address] Erythrocyte distribution width (RBC) [Ratio] 11.9 % Normal 11.6-14.[address] [facility] Comment on above: Performed By: #### L 500.4050, L100.0100 #### [facility] [address] [place], [address] Hematocrit (Bld) [Volume fraction] 38.0 % Low 40-[address] [facility] Comment on above: Performed By: #### L 500.4050, L100.0100 #### [facility] [address] [place], [address] Hemoglobin (Bld) [Mass/Vol] 12.8 g/dL Low 13.0-16.[address] [facility] Comment on above: Performed By: #### L 500.4050, L100.0100 #### [facility] [address] [place], [address] IG% 0.400 Normal 0.0-0.[address] [facility] Comment on above: Result Comment: IG% - Immature Granulocytes (promyelocytes, myelocytes and metamyelocytes) > 1% indicates that a LEFT SHIFT is Present. Performed By: #### L 500.4050, L100.0100 #### [facility] [address] [place], [address] Lymphocytes/100 WBC (Bld) 8.6 % Low 19-[address] [facility] Comment on above: Performed By: #### L 500.4050, L100.0100 #### [facility] [address] [place], [address] MCH (RBC) [Entitic mass] 31.4 pg Normal 27.0-32.[address] [facility] Comment on above: Performed By: #### L 500.4050, L100.0100 #### [facility] [address] [place], [address] MCHC (RBC) [Mass/Vol] 33.7 g/dL Normal 32-36 [facility] Comment on above: Performed By: #### L 500.4050, L100.0100 #### [facility] [address] [place], [address] MCV (RBC) [Entitic vol] 93.4 fL Normal 80-94 [facility] Comment on above: Performed By: #### L 500.4050, L100.0100 #### [facility] [address] [place], [address] Monocytes/100 WBC (Bld) 12.3 % High 0-10 [facility] Comment on above: Performed By: #### L 500.4050, L100.0100 #### [facility] [address] [place], [address] Neutrophils/100 WBC (Bld) 77.5 % High 47-[address] [facility] Comment on above: Performed By: #### L 500.4050, L100.0100 #### [facility] [address] [place], [address] Nucleated RBC (Bld) [#/Vol] 0 10*3/uL Normal 0-[address] [facility] Comment on above: Performed By: #### L 500.4050, L100.0100 #### [facility] [address] [place], [address] Platelet mean volume (Bld) [Entitic vol] 9.6 fL Normal 6.2-12.[address] [facility] Comment on above: Performed By: #### L 500.4050, L100.0100 #### [facility] [address] [place], [address] Platelets (Bld) [#/Vol] 258 10*3/uL Normal 150-[address] [facility] Comment on above: Performed By: #### L 500.4050, L100.0100 #### [facility] [address] [place], [address] RBC (Bld) [#/Vol] 4.07 10*6/uL Low 4.6-6.2 [facility] Comment on above: Performed By: #### L 500.4050, L100.0100 #### [facility] [address] [place], [address] RDW SD 41.0 fl Normal 35.1-43.[address] [facility] Comment on above: Performed By: #### L 500.4050, L100.0100 #### [facility] [address] [place], [address] WBC (Bld) [#/Vol] 7.0 10*3/uL Normal 4.4-11.0 [facility] Comment on above: Performed By: #### L 500.4050, L100.0100 #### [facility] [address] [place], [address] Comprehensive Metabolic Prof ilon 01-29-2024 Albumin [Mass/Vol] 3.3 g/dL Normal 3.2-5.0 [facility] Comment on above: Performed By: #### L 500.4050, L100.0100 #### [facility] [address] [place], [address] Albumin/Globulin [Mass ratio] 0.9 {ratio} Normal 0.9-2.[address] [facility] Comment on above: Performed By: #### L 500.4050, L100.0100 #### [facility] [address] [place], [address] ALK P 65 U/L Normal 45-[address] [facility] Comment on above: Performed By: #### L 500.4050, L100.0100 #### [facility] [address] [place], [address] ALT [Catalytic activity/Vol] 21 U/L Normal 16-[address] [facility] Comment on above: Performed By: #### L 500.4050, L100.0100 #### [facility] [address] [place], [address] AST [Catalytic activity/Vol] 21 U/L Normal 15-[address] [facility] Comment on above: Performed By: #### L 500.4050, L100.0100 #### [facility] [address] [place], [address] Bilirubin [Mass/Vol] 0.40 mg/dL Normal 0.20-1.00 [facility] Comment on above: Result Comment: For patients on eltrombopag therapy, use of Dimension [place] TBIL is not recommended. Performed By: #### L 500.4050, L100.0100 #### [facility] [address] [place], [address] BUN/CRE 27.5 RATIO High 10-[address] [facility] Comment on above: Performed By: #### L 500.4050, L100.0100 #### [facility] [address] [place], [address] CA,Total 9.5 mg/dL Normal 8.5-10.[address] [facility] Comment on above: Performed By: #### L 500.4050, L100.0100 #### [facility] [address] [place], [address] Chloride [Moles/Vol] 95 mmol/L Low 98-107 [facility] Comment on above: Performed By: #### L 500.4050, L100.0100 #### [facility] [address] [place], [address] CO2 [Moles/Vol] 28.0 mmol/L Normal 21.0-32.[address] [facility] Comment on above: Performed By: #### L 500.4050, L100.0100 #### [facility] [address] [place], [address] Creatinine [Mass/Vol] 0.47 mg/dL Low 0.70-1.30 [facility] Comment on above: Result Comment: The validity of the calculated GFR GFRAA in patients over 70 years has not been determined. Clinical correlation is essential. Performed By: #### L 500.4050, L100.0100 #### [facility] [address] [place], [address] ECRCL 69.13 ml/min Normal [facility] Comment on above: Performed By: #### L 500.4050, L100.0100 #### [facility] [address] [place], [address] EST GFR - AA 217 mL/min Normal >[address] [facility] Comment on above: Result Comment: Afri can Qatari GFR Calc Performed By: #### L 500.4050, L100.0100 #### [facility] [address] [place], [address] GAP 6 Normal 5-[address] [facility] Comment on above: Performed By: #### L 500.4050, L100.0100 #### [facility] [address] [place], [address] GFR/1.73 sq M.predicted among non-blacks MDRD (S/P/Bld) [Vol rate/Area] 179 mL/min/{1.73_m2} Normal >[address] [facility] Comment on above: Result Comment: Non- GFR Calc Performed By: #### L 500.4050, L100.0100 #### [facility] [address] [place], [address] Globulin (S) [Mass/Vol] 3.8 g/dL Normal 2.2-4.2 [facility] Comment on above: Performed By: #### L 500.4050, L100.0100 #### [facility] [address] [place], [address] Potassium [Moles/Vol] 4.4 mmol/L Normal 3.5-5.1 [facility] Comment on above: Performed By: #### L 500.4050, L100.0100 #### [facility] [address] [place], [address] Sodium [Moles/Vol] 129 mmol/L Low 136-145 [facility] Comment on above: Performed By: #### L 500.4050, L100.0100 #### [facility] [address] [place], [address] T PROT 7.1 g/dL Normal 6.4-8.[address] [facility] Comment on above: Performed By: #### L 500.4050, L100.0100 #### [facility] [address] [place], [address] Urea nitrogen [Mass/Vol] 13 mg/dL Normal 7-[address] [facility] Comment on above: Performed By: #### L 500.4050, L100.0100 #### [facility] [address] [place], [address] Creatinine, Urine (random)on 01-29-2024 UR CREAT < 13.00 Normal NO RANGE EST. [facility] Comment on above: Performed By: #### L 500.4050, L100.0100 #### [facility] [address] [place], [address] Emergency Department Summary on 01-29-2024 Emergency Department Summary [facility] Medical Records Department [address] [place] [address] Emergency Department Summary 01/29/24 MR#: [id number] Acct: [id number] Name: EVANGELISTA LANDRY Rep #: [id number] : 1940 83 From: Zee Alonso DO PCP: Dr. Taylor Zuniga DO Status:ADM IN Location: [place] [address]-1 HPI History of Present Illness Chief Complaint: Cellulitis Detail of Chief Complaint: Cellulitis to right leg Informant: patient Narrative Narrative: Patient presents to the emergency department complaint of cellulitis of the right lower extremity. He has history of lymphedema and has had edema and swelling chronically to the lower extremities. Started noticed increased weeping and redness 2 to 3 weeks ago. He is currently on his second round of outpatient antibiotics that is believed to be Augmentin. Patient has history of inclusion body myositis and has been taken liquid medicine. Patient was sent in by his primary care physician today for failed outpatient therapy and recommending admission for IV antibiotics. Patient states that he has significant generalized weakness and sometimes can walk with a 4 wheeled walker if he can lock his knees but he has been more fatigued and weak of late. He denies any fevers. He has had some intermittent chills. He denies chest pain or shortness of breath. [facility] Medical History Anemia CYST EXCISION RIGHT BREAST Hypertension Myositis Osteopenia Home Medications ???Medication ???Instructions ???Recorded ???Last Taken ???Type Cholecalciferol (Vitamin D3) 1,000 units PO DAILY 07/31/16 Unknown History multivitamin with folic acid 400 1 tab PO DAILY 07/31/16 Unknown History mcg tablet (Thera) cyanocobalamin (vitamin B-12) 1,000 mcg sublingual DAILY 12/04/17 Unknown History 1,000 mcg sublingual tablet Nitric Oxide 420 mg PO DAILY 12/04/18 Unknown History coenzyme Q10 50 mg chewable tablet 200 mg PO DAILY 12/04/18 Unknown History elderberry fruit 200 mg capsule 200 mg PO DAILY 12/17/22 Unknown History turmeric 400 mg capsule 400 mg PO DAILY 12/17/22 Unknown History amoxicillin 600 mg-potassium 7.3 ml PO BID 01/29/24 01/28/24 History clavulanate 42.9 mg/5 mL oral suspension lisinopril 5 mg tablet 10 mg PO DAILY 01/29/24 Unknown History Allergy/AdvReac Type Severity Reaction Status Date / Time bacitracin (From Neosporin AdvReac Mild Itching Verified 01/29/24 14:47 ([id number])) neomycin (From Neosporin AdvReac Mild Itching Verified 01/29/24 14:47 ([id number])) polymyxin B (From Neosporin AdvReac Mild Itching Verified 01/29/24 14:47 ([id number])) adhesive tape AdvReac Unknown Verified 01/29/24 14:47 Family History Father Colon cancer Mother Gastric cancer Surgical History History of cataract extraction Social History Smoking Status: Never smoker ROS ROS ED Review of Systems ROS Unobtainable: other Constitutional Constitutional ED: Reports lethargy; Denies chills, fever(s), sweats or weight loss Eyes Eyes: Denies blurry vision, change in vision or diplopia ENT ENT ED: Denies rhinorrhea or sore throat Cardiovascular Cardiovascular: Denies chest pain, orthopnea or racing heartbeat Respiratory/Chest Respiratory/Chest: Denies cough, dyspnea, dyspnea on exertion, orthopnea or sputum Gastrointestinal Gastrointestinal: Denies abdominal pain, diarrhea, nausea or vomiting Genitourinary Genitourinary ED: Denies dysuria, hematuria or urinary frequency Musculoskeletal Musculoskeletal: Denies arthralgias, back pain, myalgias or neck pain Integumentary Reports other Details: Lower extremity edema, cellulitis right lower extremity ; Denies abscess, Abrasions or rash Neurologic Neurologic: Denies headache(s) or weakness Psychiatric Psychiatric: Denies anxiety, depression or suicidal thoughts Endocrine Endocrinology: Denies polydipsia, polyphagia or polyuria Hematologic/Lymphat ic Hematologic/Lymphat ic: Denies easy bleeding, easy bruising or lymphadenopathy Allergic/Immunologi c Allergic/Immunologi c ED: Denies mouth swelling, tongue swelling or urticaria EXAM Physical Exam Const Vital Signs: 01/29/24 14:38 01/29/24 14:46 01/29/24 14:48 Temperature 97.9 F 97.9 F Temperature Source Oral Oral Pulse Rate 74 74 Respiratory Rate 18 16 Blood Pressure 149/55 H 174/66 H Blood Pressure Mean 86 102 Pulse Ox 97 98 Oxygen Delivery Method Room Air Room Air Positive well nourished and well developed General Appearance ED: well developed and NAD HEENT Reports TM's clear and moist mucous membranes normocephalic and (more content not included)... Normal [facility] H AND P Exam - Hospitaliston 01-29-2024 H&P Exam - Hospitalist [facility] Medical Records Department [address] [place] [address] H P Exam - Hospitalist 01/29/24 1635 MR#: [id number] Acct: [id number] Name: EVANGELISTA LANDRY Rep #: [id number] : 1940 83 From: Lacy Hernandez MD PCP: Dr. Taylor Zuniga, DO Status:ADM IN Location: [facility] [id number] HPI - General General Date of Service: 01/29/24 Chief Complaint: Increasing right lower extremity erythema and failure of outpatient antibiotics HPI Narrative EVANGELISTA LANDRY, is a 83-year-old male history of lymphedema, inclusion body myositis, and hypertension presented to [facility] ED 01/29/2024 with increasing cellulitis of right lower extremity. Has history of lymphedema has had edema and swelling chronically in lower extremities but has noticed some increased weeping and redness for 2 to 3 weeks. Patient has been on 2 rounds of Augmentin but is not improving so PCP sent him in today for failed outpatient management and requested admission for IV antibiotics. In the ED sodium 129, blood pressure 174/66 but otherwise lab workup and vitals fairly unremarkable. Patient given a dose of IV antibiotics and hospitalist contacted for admission. Patient evaluated at bedside patient reports he has had the swelling in his legs for years with intermittent erythema however this specific infection started 2 weeks ago with a patch on the back of his leg and has progressively wrapped around despite Augmentin on an outpatient basis. Had virtual appointment with his PCP today who sent him into the hospital as it is continued to worsen despite outpatient antibiotics. Patient reports he is always cold but denies any known fevers. Leg is red and weeping more so than left and keeps it wrapped and usually uses Yogesh wrap's but has been more hesitant to do so given the acute infection. Patient reports weight loss over the past 4 years due to his inclusion body myositis and has been feeling somewhat depressed because of that. Does note that he has been somewhat dehydrated with dark urine in the mornings and has had some loose stools accompanying his antibiotics but no abdominal pain or nausea. [facility] Medical History Anemia CYST EXCISION RIGHT BREAST Hypertension Myositis Osteopenia Home Medications ???Medication ???Instructions ???Recorded ???Last Taken ???Type Cholecalciferol (Vitamin D3) 1,000 units PO DAILY 07/31/16 Unknown History multivitamin with folic acid 400 1 tab PO DAILY 07/31/16 Unknown History mcg tablet (Thera) cyanocobalamin (vitamin B-12) 1,000 mcg sublingual DAILY 12/04/17 Unknown History 1,000 mcg sublingual tablet Nitric Oxide 420 mg PO DAILY 12/04/18 Unknown History coenzyme Q10 50 mg chewable tablet 200 mg PO DAILY 12/04/18 Unknown History elderberry fruit 200 mg capsule 200 mg PO DAILY 12/17/22 Unknown History turmeric 400 mg capsule 400 mg PO DAILY 12/17/22 Unknown History amoxicillin 600 mg-potassium 7.3 ml PO BID 01/29/24 01/28/24 History clavulanate 42.9 mg/5 mL oral suspension lisinopril 5 mg tablet 10 mg PO DAILY 01/29/24 Unknown History Allergy/AdvReac Type Severity Reaction Status Date / Time bacitracin (From Neosporin AdvReac Mild Itching Verified 01/29/24 14:47 ([id number])) neomycin (From Neosporin AdvReac Mild Itching Verified 01/29/24 14:47 ([id number])) polymyxin B (From Neosporin AdvReac Mild Itching Verified 01/29/24 14:47 ([id number])) adhesive tape AdvReac Unknown Verified 01/29/24 14:47 Family History Father Colon cancer Mother Gastric cancer Surgical History History of cataract extraction Social History Smoking Status: Never smoker ROS ROS Narrative General: Denies fever, does stay cold HENT: Denies headache, denies stuffy nose, denies sore throat EYES: Denies changes in vision Resp: Denies cough, denies shortness of breath Cardiac: Denies chest pain GI: Denies abdominal pain, has had some loose stool with his antibiotic, denies nausea/vomiting : Has been feeling little dehydrated Extremity: Bilateral lower extremity edema MSK: Some diffuse weakness Neuro: Denies any numbness/tingling Heme: Denies any bleeding or bruising Skin: Increasing erythema and weeping of right lower extremity Psychiatric: Feels somewhat down with his diagnosis of myositis Vital Signs Vital Signs Vital Signs: 01/29/24 14:38 01/29/24 14:46 01/29/24 14:48 Temperature 97.9 F 97.9 F Temperature Source Oral Oral Pulse Rate 74 74 Respiratory Rate 18 16 Blood Pressure 149/55 H 174/66 H Blood Pressure Mean 86 102 Pulse Ox 97 98 Oxygen Delivery Met (more content not included)... Normal [facility] Lactic Acidon 01-29-2024 Lactate [Moles/Vol] 1.8 mmol/L Normal 0.4-1.9 [facility] Comment on above: Performed By: #### L 500.4050, L100.0100 #### [facility] [place], [address] Lactate [Moles/Vol] 2.2 mmol/L Invalid Interpretation Code 0.4-1.[address] [facility] Comment on above: Order Comment: Y Result Comment: Crit ical Result(s) Called at: 16:23:13 01/29/2024 by: Wilma Pena to Ashwini Holbrookrony. Results read back by same. Performed By: #### L 100.0100, L506.1000, L500.4050, L501.9520, L501.9985 #### [facility] [address] [place], [address] Osmolality, Serumon 01-29-20 24 OSMOLALITY,SER 277 mOsm/KG Low 280-[address] [facility] Comment on above: Performed By: #### L 500.4050, L100.0100 #### [facility] [address] [place], [address] Osmolality, Urineon 01-29-20 24 OSMOLALITY,UR 131 mOsm/KG Normal [facility] Comment on above: Result Comment: Normal Urine Reference Ranges Random: 50 - 1200 mOsm/kg H20 depending on fluid intake Random: >850 mOsm/kg after 12 hour fluid restriction 24 hour: 300 - 900 mOsm/kg H2O Performed By: #### L 500.4050, L100.0100 #### [facility] [address] [place], [address] Urea Nitrogen, Urineon 01-28 URINE UREA 142 mg/dL Normal NO RANGE EST. [facility] Comment on above: Performed By: #### L 500.4050, L100.0100 #### [facility] [address] [place], [address] Urine Electrolytes- Randomon 01-29-2024 UR CL 25 mmol/L Normal Not Establ. [facility] Comment on above: Performed By: #### L 500.4050, L100.0100 #### [facility] [address] [place], [address] UR K 5.9 mmol/L Normal Not Establ. [facility] Comment on above: Performed By: #### L 500.4050, L100.0100 #### [facility] [address] [place], [address] Absolute lymphocyte countOrd ered By: Taylor Fast on 07-27-2023 Lymphocytes Auto (Unsp spec) [#/Vol] 1.36 10*3/uL 0.83-4.[address] [facility] Automated lymphocyte count a s percentage of total leukocytesOrdered By: Taylor Fast on 07-27-2023 Lymphocytes/100 WBC Auto (Unsp spec) 30.2 % 19-[address] [facility] Basophil percentageOrdered B y: Taylor Fast on 07-27-2023 Basophils/100 WBC (Bld) 0.9 % 0-1 [facility] Bilirubin [Mass/Vol] 0.50 mg/dL 0.20-1.00 [facility] Comment on above: For patients on eltr ombopag therapy, use of Dimension [place] TBIL is not recommended. Chloride [Moles/Vol] 99 mmol/L 98-107 [facility] Eosinophils/100 WBC (Bld) 6.2 % 0-[address] [facility] Glucose [Mass/Vol] 134 mg/dL 74-106 [facility] Comment on above: Fasting Glucose resu lt greater than or equal to 126 mg/dL suggests DIABETES MELLITUS per A.D.A. criteria. Hemoglobin (Bld) [Mass/Vol] 13.5 g/dL 13.0-16.[address] [facility] Monocytes/100 WBC (Bld) 14.9 % 0-10 [facility] Neutrophils (Bld) [#/Vol] 2.2 10*3/uL 2.0-7.[address] [facility] Neutrophils/100 WBC (Bld) 47.6 % 47-[address] [facility] Potassium [Moles/Vol] 4.7 mmol/L 3.5-5.1 [facility] Protein [Mass/Vol] 7.4 g/dL 6.4-8.2 [facility] Sodium [Moles/Vol] 134 mmol/L 136-145 [facility] WBC (Bld) [#/Vol] 4.5 10*3/uL 4.4-11.0 [facility] Determination of erythrocyte mean corpuscular volume (MCV)Ordered By: [facility] on 07-27-2023 MCV (RBC) [Entitic vol] 94.6 fL 80-94 [facility] Erythrocyte distribution wid th ratioOrdered By: [facility] on 07-27-2023 Erythrocyte distribution width (RBC) [Ratio] 12.2 % 11.6-14.[address] [facility] Erythrocyte distribution wid th standard deviationOrdered By: [facility] on 07-27-2023 Erythrocyte distribution width (RBC) [Entitic vol] 42.5 fL 35.1-43.[address] [facility] Hematocrit Auto (Bld) [Volum e fraction]Ordered By: [facility] on 07-27-2023 Hematocrit (Bld) [Volume fraction] 41.7 % 40-[address] [facility] Immature granulocytes/100 WB C Auto (Bld)Ordered By: [facility] on 07-27-2023 Immature granulocytes/100 WBC (Bld) 0.200 % 0.0-0.[address] [facility] Comment on above: IG% - Immature Granu locytes (promyelocytes, myelocytes and metamyelocytes) > 1% indicates that a LEFT SHIFT is Present. Laboratory - Chemistry and C hemistry - challengeOrdered By: [facility] on 07-27-2023 Albumin/Globulin [Mass ratio] 0.9 {ratio} 0.9-2.[address] [facility] ALP [Catalytic activity/Vol] 64 U/L 45-[address] [facility] ALT [Catalytic activity/Vol] 18 U/L 16-[address] [facility] CO2 [Moles/Vol] 30.0 mmol/L 21.0-32.[address] [facility] Cobalamin (Vitamin B12) [Mass/Vol] 1966 pg/mL 211-[address] [facility] Globulin (S) [Mass/Vol] 3.8 g/dL 2.2-4.2 [facility] Urea nitrogen/Creatinine [Mass ratio] 25.6 mg/mg 10-[address] [facility] - Hematology and Cell countsOrdered By: [facility] 07-27-2023 MCH (RBC) [Entitic mass] 30.6 pg 27.0-32.[address] [facility] MCHC (RBC) [Mass/Vol] 32.4 g/dL 32-36 [facility] Nucleated RBC/100 WBC (Bld) [Ratio] 0 % 0-[address] [facility] Platelet mean volume (Bld) [Entitic vol] 10.1 fL 6.2-12.[address] [facility] Platelets (Bld) [#/Vol] 222 10*3/uL 150-[address] [facility] No Panel InformationOrdered By: Taylor on 07-27-2023 Estimated GFR (MDRD) Amer 243 mL/min >[address] [facility] Comment on above: GFR Calc Estimated GFR (MDRD) Non-Af Amer 201 mL/min >[address] [facility] Comment on above: Non- GFR Calc Folate 32.10 ng/mL 3.1-55.[address] [facility] Vitamin D 25-Hydroxy 76.3 ng/mL [facility] Comment on above: Vitamin D 25(OH) Sta tus Range Deficiency <20 ng/mL (50nmol/L) Insufficiency 20 - 30 ng/mL (50 - 75 nmol/L) Sufficiency 30 - 100 ng/mL (75 - 250 nmol/L) Toxicity >100 ng/mL (>250 nmol/L) RBC Auto (Bld) [#/Vol]Ordere d By: Taylor on 07-27-2023 RBC (Bld) [#/Vol] 4.41 10*6/uL 4.6-6.2 [facility] Serum or plasma calcium marialuisa urement (mass/volume)Ordered By: Taylor on 07-27-2023 Calcium [Mass/Vol] 9.6 mg/dL 8.5-10.1 [facility] Serum or plasma creatinine m easurement (mass/volume)Ordered By: Taylor on 07-27-2023 Creatinine [Mass/Vol] 0.43 mg/dL 0.70-1.30 [facility] Comment on above: The validity of the calculated GFR & GFRAA in patients over 70 years has not been determined. Clinical correlation is essential. Serum or plasma urea nitroge n measurement (mass/volume)Ordered By: Taylor Fast on 07-27-2023 Urea nitrogen [Mass/Vol] 11 mg/dL 7-[address] [facility] Thin prep Papanicolaou smear with manual screeningOrdered By: Taylor on 07-27-2023 Thin prep Papanicolaou smear with manual screening 3.6 g/dL 3.2-5.[address] [facility] Thin prep Papanicolaou smear with manual screening 22 U/L 15-[address] [facility] Thin prep Papanicolaou smear with manual screening 5 5-[address] [facility] Whole blood hemoglobin A1c/t otal hemoglobin ratio (mass fraction)Ordered By: Taylor on 07-27-2023 HbA1c (Bld) [Mass fraction] 5.1 % 3.8-5.[address] [facility] Comment on above: Normal < 5.7 % Predi abetic 5.7 - 6.4 % Diabetic >or= 6.5 % Please note range changes. Basophil percentageOrdered B y: Taylor on 04-18-2023 Bilirubin [Mass/Vol] 0.60 mg/dL 0.20-1.00 [facility] Comment on above: For patients on eltr ombopag therapy, use of Dimension [place] TBIL is not recommended. Chloride [Moles/Vol] 103 mmol/L 98-107 [facility] Glucose [Mass/Vol] 94 mg/dL 74-106 [facility] Potassium [Moles/Vol] 4.6 mmol/L 3.5-5.1 [facility] Protein [Mass/Vol] 7.1 g/dL 6.4-8.2 [facility] Sodium [Moles/Vol] 137 mmol/L 136-145 [facility] Laboratory - Chemistry and C hemistry - challengeOrdered By: Taylor on 04-18-2023 ALP [Catalytic activity/Vol] 59 U/L 45-[address] [facility] ALT [Catalytic activity/Vol] 18 U/L 16-[address] [facility] CO2 [Moles/Vol] 28.0 mmol/L 21.0-32.[address] [facility] Globulin (S) [Mass/Vol] 3.4 g/dL 2.2-4.2 [facility] Urea nitrogen/Creatinine [Mass ratio] 38.5 mg/mg 10-[address] [facility] No Panel InformationOrdered By: Taylor Fast on 04-18-2023 Estimated GFR (MDRD) Amer 271 mL/min >[address] [facility] Comment on above: GFR Calc Estimated GFR (MDRD) Non-Af Amer 224 mL/min >[address] [facility] Comment on above: Non- GFR Calc Vitamin D 25-Hydroxy 85.4 ng/mL [facility] Comment on above: Vitamin D 25(OH) Sta tus Range Deficiency <20 ng/mL (50nmol/L) Insufficiency 20 - 30 ng/mL (50 - 75 nmol/L) Sufficiency 30 - 100 ng/mL (75 - 250 nmol/L) Toxicity >100 ng/mL (>250 nmol/L) Serum or plasma albumin marialuisa urement (mass/volume)Ordered By: Taylor on 04-18-2023 Albumin [Mass/Vol] 3.7 g/dL 3.2-5.0 [facility] Serum or plasma albumin/glob ulin mass ratioOrdered By: 04-18-2023 Albumin/Globulin [Mass ratio] 1.1 {ratio} 0.9-2.[address] [facility] Serum or plasma calcium marialuisa urement (mass/volume)Ordered By: Taylor04-18-2023 Calcium [Mass/Vol] 9.2 mg/dL 8.5-10.1 [facility] Serum or plasma creatinine m easurement (mass/volume)Ordered By: on 04-18-2023 Creatinine [Mass/Vol] 0.39 mg/dL 0.70-1.30 [facility] Comment on above: The validity of the calculated GFR & GFRAA in patients over 70 years has not been determined. Clinical correlation is essential. Serum or plasma urea nitroge n measurement (mass/volume)Ordered By: Taylor on 04-18-2023 Urea nitrogen [Mass/Vol] 15 mg/dL 7-[address] [facility] Thin prep Papanicolaou smear with manual screeningOrdered By: Taylor on 04-18-2023 Thin prep Papanicolaou smear with manual screening 18 U/L 15-[address] [facility] Thin prep Papanicolaou smear with manual screening 6 5-[address] [facility] Whole blood hemoglobin A1c/t otal hemoglobin ratio (mass fraction)Ordered By: [facility] Fast on 04-18-2023 HbA1c (Bld) [Mass fraction] 5.0 % 3.8-5.[address] [facility] Comment on above: Normal < 5.7 % Predi abetic 5.7 - 6.4 % Diabetic >or= 6.5 % Please note range changes. Absolute lymphocyte countOrd ered By: [facility] Fast on 03-15-2023 Lymphocytes Auto (Unsp spec) [#/Vol] 1.24 10*3/uL 0.83-4.[address] [facility] Basophil percentageOrdered B y: [facility] Fast on 03-15-2023 Basophils/100 WBC (Bld) 0.7 % 0-1 [facility] Bilirubin [Mass/Vol] 0.60 mg/dL 0.20-1.00 [facility] Comment on above: For patients on eltr ombopag therapy, use of Dimension [place] TBIL is not recommended. Chloride [Moles/Vol] 102 mmol/L 98-107 [facility] Eosinophils/100 WBC (Bld) 2.9 % 0-[address] [facility] Glucose [Mass/Vol] 115 mg/dL 74-106 [facility] Comment on above: Fasting Glucose resu lt from 100 to 125 mg/dL suggests IMPAIRED HOMEOSTASIS per A.D.A. criteria. Neutrophils (Bld) [#/Vol] 2.3 10*3/uL 2.0-7.[address] [facility] Neutrophils/100 WBC (Bld) 54.5 % 47-[address] [facility] Potassium [Moles/Vol] 4.4 mmol/L 3.5-5.1 [facility] Protein [Mass/Vol] 7.0 g/dL 6.4-8.2 [facility] Sodium [Moles/Vol] 135 mmol/L 136-145 [facility] WBC (Bld) [#/Vol] 4.2 10*3/uL 4.4-11.0 [facility] Blood erythrocytes count (nu mber/volume)Ordered By: [facility] Fast on 03-15-2023 RBC (Bld) [#/Vol] 4.33 10*6/uL 4.6-6.2 [facility] Blood hemoglobin measurement (mass/volume)Ordered By: [facility] Fast on 03-15-2023 Hemoglobin (Bld) [Mass/Vol] 13.6 g/dL 13.0-16.[address] [facility] Blood lymphocytes/100 leukoc ytesOrdered By: [facility] on 03-15-2023 Lymphocytes/100 WBC (Bld) 29.7 % 19-[address] [facility] Blood monocytes/100 leukocyt esOrdered By: [facility] on 03-15-2023 Monocytes/100 WBC (Bld) 11.7 % 0-10 [facility] Blood platelet mean volumeOr dered By: [facility] on 03-15-2023 Platelet mean volume (Bld) [Entitic vol] 10.7 fL 6.2-12.[address] [facility] Determination of erythrocyte mean corpuscular volume (MCV)Ordered By: Taylor on 03-15-2023 MCV (RBC) [Entitic vol] 96.5 fL 80-94 [facility] Hematocrit Auto (Bld) [Volum e fraction]Ordered By: [facility] on 03-15-2023 Hematocrit (Bld) [Volume fraction] 41.8 % 40-[address] [facility] Laboratory - Chemistry and C hemistry - challengeOrdered By: [facility] on 03-15-2023 ALP [Catalytic activity/Vol] 60 U/L 45-[address] [facility] ALT [Catalytic activity/Vol] 18 U/L 16-[address] [facility] CO2 [Moles/Vol] 32.0 mmol/L 21.0-32.[address] [facility] Globulin (S) [Mass/Vol] 3.3 g/dL 2.2-4.2 [facility] Urea nitrogen/Creatinine [Mass ratio] 28.3 mg/mg 10-[address] [facility] Laboratory - Hematology and Cell countsOrdered By: [facility] on 03-15-2023 Erythrocyte distribution width (RBC) [Entitic vol] 43.7 fL 35.1-43.[address] [facility] Erythrocyte distribution width (RBC) [Ratio] 12.2 % 11.6-14.[address] [facility] Immature granulocytes/100 WBC (Bld) 0.500 % 0.0-0.[address] [facility] Comment on above: IG% - Immature Granu locytes (promyelocytes, myelocytes and metamyelocytes) > 1% indicates that a LEFT SHIFT is Present. MCH (RBC) [Entitic mass] 31.4 pg 27.0-32.[address] [facility] Nucleated RBC/100 WBC (Bld) [Ratio] 0 % 0-[address] [facility] MCHC Auto (RBC) [Mass/Vol]Or dered By: Taylor on 03-15-2023 MCHC (RBC) [Mass/Vol] 32.5 g/dL 32-36 [facility] No Panel InformationOrdered By: Taylor on 03-15-2023 Estimated GFR (MDRD) Amer 246 mL/min >[address] [facility] Comment on above: GFR Calc Estimated GFR (MDRD) Non-Af Amer 203 mL/min >[address] [facility] Comment on above: Non- GFR Calc Vitamin D 25-Hydroxy 105.2 ng/mL [facility] Comment on above: Vitamin D 25(OH) Sta tus Range Deficiency <20 ng/mL (50nmol/L) Insufficiency 20 - 30 ng/mL (50 - 75 nmol/L) Sufficiency 30 - 100 ng/mL (75 - 250 nmol/L) Toxicity >100 ng/mL (>250 nmol/L)Evidence suggests that patients undergoing fluorescein dye angiography can retain small amounts of fluorescein in the body for up to 48 to 72 hours post-treatment. In the cases of patients with renal insufficiency, retention could be much longer. Samples containing fluorescein can produce falsely elevated values when tested with the [employer] Cent[employer] Vitamin D assay. With fluorescein interference, observed Vitamin D values can be as high as >150 ng/mL (>375 nmol/L). Samples should be resubmitted post fluorescein clearance to ensure there is no interference with Vitamin D test results. Platelets bldOrdered By: Lyla greene on 03-15-2023 Platelets (Bld) [#/Vol] 190 10*3/uL 150-[address] [facility] Serum or plasma albumin marialuisa urement (mass/volume)Ordered By: Taylor on 03-15-2023 Albumin [Mass/Vol] 3.7 g/dL 3.2-5.0 [facility] Serum or plasma albumin/glob ulin mass ratioOrdered By: Taylor on 03-15-2023 Albumin/Globulin [Mass ratio] 1.1 {ratio} 0.9-2.[address] [facility] Serum or plasma calcium marialuisa urement (mass/volume)Ordered By: [facility] on 03-15-2023 Calcium [Mass/Vol] 9.2 mg/dL 8.5-10.1 [facility] Serum or plasma creatinine m easurement (mass/volume)Ordered By: [facility] on 03-15-2023 Creatinine [Mass/Vol] 0.42 mg/dL 0.70-1.30 [facility] Comment on above: The validity of the calculated GFR & GFRAA in patients over 70 years has not been determined. Clinical correlation is essential. Serum or plasma urea nitroge n measurement (mass/volume)Ordered By: [facility] on 03-15-2023 Urea nitrogen [Mass/Vol] 12 mg/dL 7-[address] [facility] Thin prep Papanicolaou smear with manual screeningOrdered By: [facility] on 03-15-2023 Thin prep Papanicolaou smear with manual screening 14 U/L 15-[address] [facility] Thin prep Papanicolaou smear with manual screening 1 5-[address] [facility] Absolute lymphocyte countOrd ered By: [facility] on 01-03-2023 Lymphocytes Auto (Unsp spec) [#/Vol] 1.42 10*3/uL 0.83-4.[address] [facility] Basophil percentageOrdered B y: [facility] on 01-03-2023 Basophils/100 WBC (Bld) 0.5 % 0-1 [facility] Bilirubin [Mass/Vol] 0.50 mg/dL 0.20-1.00 [facility] Comment on above: For patients on eltr ombopag therapy, use of Dimension [place] TBIL is not recommended. Chloride [Moles/Vol] 104 mmol/L 98-107 [facility] Eosinophils/100 WBC (Bld) 4.9 % 0-[address] [facility] Glucose [Mass/Vol] 94 mg/dL 74-106 [facility] Neutrophils (Bld) [#/Vol] 1.7 10*3/uL 2.0-7.[address] [facility] Neutrophils/100 WBC (Bld) 43.7 % 47-[address] [facility] Potassium [Moles/Vol] 4.5 mmol/L 3.5-5.1 [facility] Protein [Mass/Vol] 7.0 g/dL 6.4-8.2 [facility] Sodium [Moles/Vol] 137 mmol/L 136-145 [facility] WBC (Bld) [#/Vol] 3.9 10*3/uL 4.4-11.0 [facility] Blood erythrocytes count (nu mber/volume)Ordered By: Taylor on 01-03-2023 RBC (Bld) [#/Vol] 4.21 10*6/uL 4.6-6.2 [facility] Blood hemoglobin measurement (mass/volume)Ordered By: Taylor on 01-03-2023 Hemoglobin (Bld) [Mass/Vol] 13.4 g/dL 13.0-16.[address] [facility] Blood lymphocytes/100 leukoc ytesOrdered By: Taylor Fast on 01-03-2023 Lymphocytes/100 WBC (Bld) 36.7 % 19-[address] [facility] Blood monocytes/100 leukocyt esOrdered By: Taylor Fast on 01-03-2023 Monocytes/100 WBC (Bld) 13.7 % 0-10 [facility] Blood platelet mean volumeOr dered By: Talyor Fast on 01-03-2023 Platelet mean volume (Bld) [Entitic vol] 10.5 fL 6.2-12.[address] [facility] Determination of erythrocyte mean corpuscular volume (MCV)Ordered By: Taylor on 01-03-2023 MCV (RBC) [Entitic vol] 96.2 fL 80-94 [facility] Hematocrit Auto (Bld) [Volum e fraction]Ordered By: Taylor Fast on 01-03-2023 Hematocrit (Bld) [Volume fraction] 40.5 % 40-[address] [facility] Laboratory - Chemistry and C hemistry - challengeOrdered By: Taylor on 01-03-2023 ALP [Catalytic activity/Vol] 122 U/L 45-[address] [facility] ALT [Catalytic activity/Vol] 21 U/L 16-[address] [facility] CO2 [Moles/Vol] 29.0 mmol/L 21.0-32.0 [facility] Globulin (S) [Mass/Vol] 3.4 g/dL 2.2-4.2 [facility] Urea nitrogen/Creatinine [Mass ratio] 39.3 mg/mg 10-[address] [facility] Laboratory - Hematology and Cell countsOrdered By: Taylor on 01-03-2023 Erythrocyte distribution width (RBC) [Entitic vol] 45.7 fL 35.1-43.[address] [facility] Erythrocyte distribution width (RBC) [Ratio] 12.8 % 11.6-14.[address] [facility] Immature granulocytes/100 WBC (Bld) 0.500 % 0.0-0.[address] [facility] Comment on above: IG% - Immature Granu locytes (promyelocytes, myelocytes and metamyelocytes) > 1% indicates that a LEFT SHIFT is Present. MCH (RBC) [Entitic mass] 31.8 pg 27.0-32.[address] [facility] Nucleated RBC/100 WBC (Bld) [Ratio] 0 % 0-[address] [facility] MCHC Auto (RBC) [Mass/Vol]Or dered By: Taylor on 01-03-2023 MCHC (RBC) [Mass/Vol] 33.1 g/dL 32-36 [facility] No Panel InformationOrdered By: Taylor on 01-03-2023 Estimated GFR (MDRD) Amer 258 mL/min >[address] [facility] Comment on above: GFR Calc Estimated GFR (MDRD) Non-Af Amer 213 mL/min >[address] [facility] Comment on above: Non- GFR Calc Vitamin D 25-Hydroxy 96.1 ng/mL [facility] Comment on above: Vitamin D 25(OH) Sta tus Range Deficiency <20 ng/mL (50nmol/L) Insufficiency 20 - 30 ng/mL (50 - 75 nmol/L) Sufficiency 30 - 100 ng/mL (75 - 250 nmol/L) Toxicity >100 ng/mL (>250 nmol/L) Platelets bldOrdered By: Lyla ra Fast on 01-03-2023 Platelets (Bld) [#/Vol] 207 10*3/uL 150-[address] [facility] Serum or plasma albumin marialuisa urement (mass/volume)Ordered By: Taylor Fast on 01-03-2023 Albumin [Mass/Vol] 3.6 g/dL 3.2-5.0 [facility] Serum or plasma albumin/glob ulin mass ratioOrdered By: Taylor Zuniga on 01-03-2023 Albumin/Globulin [Mass ratio] 1.1 {ratio} 0.9-2.[address] [facility] Serum or plasma calcium marialuisa urement (mass/volume)Ordered By: Taylormaryann Zuniga on 01-03-2023 Calcium [Mass/Vol] 9.2 mg/dL 8.5-10.1 [facility] Serum or plasma creatinine m easurement (mass/volume)Ordered By: Taylor Zuniga on 01-03-2023 Creatinine [Mass/Vol] 0.41 mg/dL 0.70-1.30 [facility] Comment on above: The validity of the calculated GFR & GFRAA in patients over 70 years has not been determined. Clinical correlation is essential. Serum or plasma urea nitroge n measurement (mass/volume)Ordered By: Taylor Zuniga on 01-03-2023 Urea nitrogen [Mass/Vol] 16 mg/dL 7-[address] [facility] Thin prep Papanicolaou smear with manual screeningOrdered By: Taylor Efrain on 01-03-2023 Thin prep Papanicolaou smear with manual screening 15 U/L 15-[address] [facility] Thin prep Papanicolaou smear with manual screening 4 5-[address] [facility] Whole blood hemoglobin A1c/t otal hemoglobin ratio (mass fraction)Ordered By: Taylor Zuniga on 01-03-2023 HbA1c (Bld) [Mass fraction] 5.0 % 3.8-5.[address] [facility] Comment on above: Normal < 5.7 % Predi abetic 5.7 - 6.4 % Diabetic >or= 6.5 % Please note range changes. Absolute lymphocyte countOrd ered By: Dr. Zuniga on 09-13-2022 Lymphocytes Auto (Unsp spec) [#/Vol] 1.17 10*3/uL 0.83-4.[address] [facility] Basophil percentageOrdered B y: Dr. Zuniga on 09-13-2022 Basophil percentage 0 SEEN /hpf 0-5 [facility] Basophils/100 WBC (Bld) 0.8 % 0-1 [facility] Bilirubin [Mass/Vol] 0.40 mg/dL 0.20-1.00 [facility] Comment on above: For patients on eltr ombopag therapy, use of Dimension [place] TBIL is not recommended. Chloride [Moles/Vol] 105 mmol/L 98-107 [facility] Cholesterol [Mass/Vol] 175 mg/dL <200 [facility] Comment on above: <200 mg/dL Desirable 200-240 mg/dL Borderline >240 mg/dL High Risk Eosinophils/100 WBC (Bld) 3.0 % 0-[address] [facility] Glucose [Mass/Vol] 122 mg/dL 74-106 [facility] Comment on above: Fasting Glucose resu lt from 100 to 125 mg/dL suggests IMPAIRED HOMEOSTASIS per A.D.A. criteria. Neutrophils (Bld) [#/Vol] 2.9 10*3/uL 2.0-7.[address] [facility] Neutrophils/100 WBC (Bld) 58.0 % 47-[address] [facility] Potassium [Moles/Vol] 4.5 mmol/L 3.5-5.1 [facility] Protein [Mass/Vol] 7.4 g/dL 6.4-8.2 [facility] Sodium [Moles/Vol] 139 mmol/L 136-145 [facility] Triglyceride [Mass/Vol] 91 mg/dL <199 [facility] Comment on above: The drugs N-Acetylcy steine and Metamizole may falsely depress this assay.Serum Triglycerides Reference Interval Normal <150 mg/dL Borderline high 150 - 199 mg/dL High 200 - 499 mg/dL Very High > or = 500 mg/dL WBC (Bld) [#/Vol] 5.0 10*3/uL 4.4-11.0 [facility] Bilirubin Test strip Ql (U)O rdered By: Dr. Zuniga on 09-13-2022 Bilirubin Ql (U) Negative Negative [facility] Blood erythrocytes count (nu mber/volume)Ordered By: Dr. Zuniga on 09-13-2022 RBC (Bld) [#/Vol] 4.25 10*6/uL 4.6-6.2 [facility] Blood hemoglobin measurement (mass/volume)Ordered By: Dr. Zuniga on 09-13-2022 Hemoglobin (Bld) [Mass/Vol] 13.5 g/dL 13.0-16.[address] [facility] Blood lymphocytes/100 leukoc ytesOrdered By: Dr. Zuniga on 09-13-2022 Lymphocytes/100 WBC (Bld) 23.5 % 19-[address] [facility] Blood monocytes/100 leukocyt esOrdered By: Dr. Zuniga on 09-13-2022 Monocytes/100 WBC (Bld) 14.3 % 0-10 [facility] Blood platelet mean volumeOr dered By: Dr. Zuniga on 09-13-2022 Platelet mean volume (Bld) [Entitic vol] 11.4 fL 6.2-12.[address] [facility] Determination of erythrocyte mean corpuscular volume (MCV)Ordered By: Dr. Zuniga on 09-13-2022 MCV (RBC) [Entitic vol] 97.9 fL 80-94 [facility] Hematocrit Auto (Bld) [Volum e fraction]Ordered By: Dr. Zuniga on 09-13-2022 Hematocrit (Bld) [Volume fraction] 41.6 % 40-[address] [facility] Ketones Test strip Ql (U)Ord ered By: Dr. Zuniga on 09-13-2022 Ketones Ql (U) Negative Negative [facility] Laboratory - Chemistry and C hemistry - challengeOrdered By: Dr. Zuniga on 09-13-2022 ALP [Catalytic activity/Vol] 63 U/L 45-[address] [facility] ALT [Catalytic activity/Vol] 26 U/L 16-[address] [facility] CO2 [Moles/Vol] 29.0 mmol/L 21.0-32.[address] [facility] Cobalamin (Vitamin B12) [Mass/Vol] 982 pg/mL 211-[address] [facility] Globulin (S) [Mass/Vol] 3.6 g/dL 2.2-4.2 [facility] Natriuretic peptide B (Bld) [Mass/Vol] 20.3 pg/mL 0-[address] [facility] Urea nitrogen/Creatinine [Mass ratio] 48.7 mg/mg 10-[address] [facility] Laboratory - Hematology and Cell countsOrdered By: Dr. Zuniga on 09-13-2022 Erythrocyte distribution width (RBC) [Entitic vol] 46.2 fL 35.1-43.[address] [facility] Erythrocyte distribution width (RBC) [Ratio] 12.9 % 11.6-14.[address] [facility] Immature granulocytes/100 WBC (Bld) 0.400 % 0.0-0.[address] [facility] Comment on above: IG% - Immature Granu locytes (promyelocytes, myelocytes and metamyelocytes) > 1% indicates that a LEFT SHIFT is Present. MCH (RBC) [Entitic mass] 31.8 pg 27.0-32.[address] [facility] Nucleated RBC/100 WBC (Bld) [Ratio] 0 % 0-[address] [facility] MCHC Auto (RBC) [Mass/Vol]Or dered By: Dr. Zuniga on 09-13-2022 MCHC (RBC) [Mass/Vol] 32.5 g/dL 32-36 [facility] Mucus LM Ql (Urine sed)Order ed By: Dr. Zuniga on 09-13-2022 Mucus Ql (Urine sed) 0 SEEN /hpf [facility] Nitrite Test strip Ql (U)Ord ered By: Dr. Zuniga on 09-13-2022 Nitrite Ql (U) Negative Negative [facility] No Panel InformationOrdered By: Dr. Zuniga on 09-13-2022 Estimated GFR (MDRD) Amer 255 mL/min >[address] [facility] Comment on above: GFR Calc Estimated GFR (MDRD) Non-Af Amer 211 mL/min >[address] [facility] Comment on above: Non- GFR Calc Prostate Specific Antigen Screen 3.23 ng/mL 0.00-4.[address] [facility] Comment on above: This test was perfor med using the TPSA assay method [facility]. Values obtained with differentassay methods cannot be used interchangably.When changing PSA assays in the course of monitoring apatient, additional sequential testing should be carriedout to confirm baseline values. Thyroid Stimulating Hormone (TSH) 2.06 uIU/mL 0.358-3.[address] [facility] Urine Microalbumin/Creatinine Ratio 54.2 mg/g CRE <[address] [facility] Vitamin D 25-Hydroxy 95.7 ng/mL [facility] Comment on above: Vitamin D 25(OH) Sta tus Range Deficiency <20 ng/mL (50nmol/L) Insufficiency 20 - 30 ng/mL (50 - 75 nmol/L) Sufficiency 30 - 100 ng/mL (75 - 250 nmol/L) Toxicity >100 ng/mL (>250 nmol/L) Platelets bldOrdered By: Dr. Zuniga on 09-13-2022 Platelets (Bld) [#/Vol] 188 10*3/uL 150-[address] [facility] Protein Test strip Ql (U)Ord ered By: Dr. Zuniga on 09-13-2022 Protein Ql (U) Negative Negative [facility] Serum or plasma albumin marialuisa urement (mass/volume)Ordered By: Dr. Zuniga on 09-13-2022 Albumin [Mass/Vol] 3.8 g/dL 3.2-5.0 [facility] Serum or plasma albumin/glob ulin mass ratioOrdered By: Dr. Zuniga on 09-13-2022 Albumin/Globulin [Mass ratio] 1.1 {ratio} 0.9-2.[address] [facility] Serum or plasma calcium marialuisa urement (mass/volume)Ordered By: Dr. Zuniga on 09-13-2022 Calcium [Mass/Vol] 9.4 mg/dL 8.5-10.1 [facility] Serum or plasma cholesterol in HDL measurement (mass/volume)Ordered By: Dr. Zuniga on 09-13-2022 Cholesterol in HDL [Mass/Vol] 79 mg/dL >[address] [facility] Comment on above: The drugs N-Acetylcy steine and Metamizole may falsely depress this assay. Reference Range HDL <40 mg/dL Low HDL Cholesterol HDL >or= 60 mg/dL High HDL Cholesterol Serum or plasma cholesterol in VLDL measurement (mass/volume)Ordered By: Dr. Zuniga on 09-13-2022 Cholesterol in VLDL [Mass/Vol] 18 mg/dL 5-[address] [facility] Serum or plasma creatinine m easurement (mass/volume)Ordered By: Dr. Zuniga on 09-13-2022 Creatinine [Mass/Vol] 0.41 mg/dL 0.70-1.30 [facility] Comment on above: The validity of the calculated GFR & GFRAA in patients over 70 years has not been determined. Clinical correlation is essential. Serum or plasma folate measu rement (mass/volume)Ordered By: Dr. Zuniga on 09-13-2022 Folate [Mass/Vol] 29.20 ng/mL 3.1-55.4 [facility] Serum or plasma low density lipoprotein (LDL) cholesterol measurement (mass/volume)Ordered By: Dr. Zuniga on 09-13-2022 Cholesterol in LDL [Mass/Vol] 78 mg/dL 0-[address] [facility] Serum or plasma urea nitroge n measurement (mass/volume)Ordered By: Dr. Zuniga on 09-13-2022 Urea nitrogen [Mass/Vol] 20 mg/dL 7-[address] [facility] Squamous epithelial cells de tection in urine sediment by light microscopyOrdered By: Dr. Zuniga on 09-13-2022 Epithelial cells.squamous LM Ql (Urine sed) 0 SEEN /hpf 0-[address] [facility] Thin prep Papanicolaou smear with manual screeningOrdered By: Dr. Zuniga on 09-13-2022 Thin prep Papanicolaou smear with manual screening 16 U/L 15-[address] [facility] Thin prep Papanicolaou smear with manual screening 5 5-[address] [facility] Thin prep Papanicolaou smear with manual screening 16.1 mg/L NO RANGE EST. [facility] Urine blood detectionOrdered By: Dr. Zuniga on 09-13-2022 RBC Ql (U) Negative Negative [facility] RBC Ql (U) 0 SEEN /hpf 0-[address] [facility] Urine clarityOrdered By: Dr. Zuniga on 09-13-2022 Clarity (U) Clear Clear [facility] Urine color determinationOrd ered By: Dr. Zuniga on 09-13-2022 Color (U) Yellow Yellow [facility] Urine creatinine measurement (mass/volume)Ordered By: Dr. Zuniga on 09-13-2022 Creatinine (U) [Mass/Vol] 29.70 mg/dL NO RANGE EST. [facility] Urine glucose detectionOrder ed By: Dr. Zuniga on 09-13-2022 Glucose Ql (U) Normal mg/dl Normal [facility] Urine leukocyte esterase det ection by dipstickOrdered By: Dr. Zuniga on 09-13-2022 Leukocyte esterase Test strip Ql (U) 25 /ul Negative [facility] Urine pHOrdered By: Dr. Zuniga on 09-13-2022 pH (U) 6.5 [pH] 5.0 - 8.[address] [facility] Urine sediment bacteria coun t by microscopy (number/high power field)Ordered By: Dr. Zuniga on 09-13-2022 Bacteria LM.HPF (Urine sed) [#/Area] 0 /[HPF] None Seen [facility] Urine specific gravity measu rementOrdered By: Dr. Zuniga on 09-13-2022 Specific gravity (U) [Rel density] 1.010 1.002-1.[address] [facility] Urobilinogen Auto test strip Ql (U)Ordered By: Dr. Znuiga on 09-13-2022 Urobilinogen Ql (U) Normal mg/dl Normal [facility] Vital Signs Date Time Vital Sign Value Performing Clinician Facility 12-17-2022 15:35-0400 Body height 177.8 cm [facility] 12-17-2022 15:35-0400 Body temperature 97.2 [degF] [facility] 12-17-2022 15:35-0400 Diastolic blood pressure 68 mm[Hg] [facility] 12-17-2022 15:35-0400 Heart rate 65 /min [facility] 12-17-2022 15:35-0400 Respiratory rate 18 /min [facility] 12-17-2022 15:35-0400 SaO2% (BldA) [Mass fraction] 98 % [facility] 12-17-2022 15:35-0400 Systolic blood pressure 167 mm[Hg] [facility] 12-15-2022 21:37-0400 Diastolic blood pressure 78 mm[Hg] Taylor A Fast DO Work Phone: [facility]; [facility] Work Phone: Comment on above: Patient Position: Sitting 12-15-2022 21:37-0400 Heart rate 70 /min Taylor A Fast DO Work Phone: [facility]; [facility] Work Phone: Comment on above: Pattern: Regular 12-15-2022 21:37-0400 Respiratory rate 16 /min Taylor A Fast DO Work Phone: [facility]; [facility] Work Phone: 12-15-2022 21:37-0400 Systolic blood pressure 175 mm[Hg] Taylor A Fast DO Work Phone: [facility]; [facility] Work Phone: Comment on above: Patient Position: Sitting 08-21-2022 12:00-0400 Diastolic blood pressure 70 mm[Hg] Taylor A Fast DO Work Phone: [facility]; [facility] Work Phone: Comment on above: Patient Position: Sitting 08-21-2022 12:00-0400 Heart rate 65 /min Taylor A Fast DO Work Phone: [facility]; [facility] Work Phone: Comment on above: Pattern: Regular 08-21-2022 12:00-0400 Respiratory rate 18 /min Taylor A Fast DO Work Phone: [facility]; [facility] Work Phone: 08-21-2022 12:00-0400 Systolic blood pressure 155 mm[Hg] Taylor A Fast DO Work Phone: [facility]; [facility] Work Phone: Comment on above: Patient Position: Sitting Encounters Encounter Date Encounter Type Care Provider Facility Start: 12-18-2024 End: 12-18-[address] Taylor Zuniga DO Work Phone: -Laboratory Start: 12-18-2024 End: 12-18-[address] Taylor Zuniga DO -Laboratory Work Phone: Start: 12-18-2024 End: 12-18-2024 ambulatory Taylor Zuniga Facility:[facility] Start: 09-16-2024 End: 09-16-[address] Taylor Zuniga DO Work Phone: [facility] Work Phone: Start: 09-16-2024 End: 09-16-[address] Taylor Zuniga DO -Laboratory Work Phone: Start: 09-16-2024 End: 09-16-2024 ambulatory Taylor Fast Facility:[facility] Start: 06-19-2024 End: 06-19-[address] Taylor Zuniga DO -Laboratory Work Phone: Start: 06-19-2024 End: 06-19-2024 ambulatory Taylor Fast Facility:[facility] Start: 03-19-2024 End: 03-19-2024 ambulatory Taylor Fast Facility:[facility] Start: 02-01-2024 ambulatory Taylor Fast Facility:[facility] Start: 02-01-2024 End: 02-16-2024 Evaluation and management of inpatient Taylor Fast Facility:[facility] Start: 01-29-2024 ambulatory Lacy Hernandez Facility:[facility] Start: 01-29-2024 End: 02-01-2024 Evaluation and management of inpatient Lacy Hernandez Facility:[facility] Start: 07-27-2023 End: 07-27-[address] [facility] Work Phone: Start: 07-27-2023 End: 07-27-2023 Patient encounter [address] [facility] Work Phone: Start: 04-18-2023 End: 04-18-[address] [facility] Work Phone: Start: 04-18-2023 End: 04-18-2023 Patient encounter [address] [facility] Work Phone: Start: 03-15-2023 End: 03-15-[address] [facility] Work Phone: Start: 03-15-2023 End: 03-15-[address] [facility] Work Phone: Start: 01-03-2023 End: 01-03-[address] [facility] Work Phone: Start: 01-03-2023 End: 01-03-[address] [facility] Work Phone: Start: 12-17-2022 End: 12-17-2022 Emergency department patient visit [facility] Work Phone: Start: 12-15-2022 End: 12-25-2022 Home visit est pt mod-hi severity 40 minutes Taylor Fast DO Work Phone: [facility] Start: 09-13-2022 End: 10-04-[address] [facility] Work Phone: Start: 09-13-2022 End: 10-04-[address] [facility] Start: 08-23-2022 End: 08-23-2022 Phone Encounter Taylor Fast DO Work Phone: [facility] Start: 08-22-2022 ambulatory Taylor A Fast DO [facility] Start: 08-22-2022 End: 08-22-2022 Home visit new pt unstabl/signif new prob 75 min Taylor Fast DO Work Phone: [facility] Procedures Date Procedure Procedure Detail Performing Clinician Start: 12-18-2024 Vitamin D, 25-hydrox y measurement Dr. Taylor Zuniga DO Work Phone: Comment on above: Vitamin D StatusDefi ciency: <20 ng/mL (50nmol/L)Insufficiency: 20-30 ng/mL (50-75 nmol/L)Sufficiency: 30-100 ng/mL (75-250 nmol/L)Toxicity: >100 ng/mL (>250 nmol/L) Start: 09-16-2024 Vitamin D, 25-hydrox y measurement Dr. Taylor Zuniga DO Work Phone: Comment on above: Vitamin D StatusDefi ciency: <20 ng/mL (50nmol/L)Insufficiency: 20-30 ng/mL (50-75 nmol/L)Sufficiency: 30-100 ng/mL (75-250 nmol/L)Toxicity: >100 ng/mL (>250 nmol/L) Start: 06-19-2024 Measurement of renal function Dr. Taylor Zuniga DO Work Phone: Comment on above: GFR Calc Start: 06-19-2024 Vitamin D, 25-hydrox y measurement Dr. Taylor Zuniga DO Work Phone: Comment on above: Vitamin D 25(OH) Sta tus Range Deficiency <20 ng/mL (50nmol/L) Insufficiency 20 - 30 ng/mL (50 - 75 nmol/L) Sufficiency 30 - 100 ng/mL (75 - 250 nmol/L) Toxicity >100 ng/mL (>250 nmol/L) Start: 12-17-2022 End: 12-17-2022 Lumbar Spine 2 or 3 Views Procedure Note: See Note; NOTES: [facility] Imaging Services [address] [place] [address] Lumbar Spine 2 or 3 Views MR#: [id number] Acct: [id number] Name: EVANGELISTA LANDRY Rep #: [id number] : 1940 M 82 From: Paulie Licona MD PCP: Dr. Taylor Zuniga DO Status: REG ER Study: Lumbar Spine 2 or 3 Views Date of Exam: Exam# [id number] Ordering Dr: Tor Yadav MD STUDY: X-RAY - LUMBAR SPINE REASON FOR EXAM: Male, 82 years old. fall TECHNIQUE: AP and lateral view(s) of the lumbar spine were obtained. COMPARISON: None FINDINGS: Normal lumbar lordosis. There is mild to moderate dextro scoliosis. There is a normal alignment of the vertebrae. No evidence for acute fracture or subluxation. No lytic or sclerotic bony lesions. . There is multilevel disc space narrowing and endplate spurring. Diffuse calcification of the abdominal aorta without evidence for aneurysm. RAD/Lumbar Spine 2 or 3 Views IMPRESSION: Scoliosis and degenerative change. No acute fracture or other significant bony pathology. Electronically Signed: Paulie Licona MD at 16:43 EDT , CC: Dr. Taylor Zuniga DO; Dr. Tor Yadav MD Bar Supervisor: Signed Taylor Zuniga DO Work Phone: Start: 12-17-2022 X-ray of lumbar spin e, two or three views Start: 12-17-2022 End: 12-17-2022 Emergency Department Summary Procedure Note: See Note; NOTES: [facility] Medical Records Department [address] [place] [address] Emergency Department Summary 12/17/22 MR#: [id number] Acct: [id number] Name: EVANGELISTA LANDRY Rep #: [id number] : 1940 82 From: Tor Yadav MD PCP: Dr. Taylor Zuniga, DO Status:DEP ER Location: ED HPI <BENNETT Miranda - Last Filed: 12/17/22 18:48> History of Present Illness Chief Complaint: Fall Narrative Narrative: Patient presenting due to a fall that occurred at home this afternoon. He reports that he was trying to watch the baseball game and went to stand up to change the channel on the TV and normally has to lock his knees in order to ambulate due to his history of myositis and loss of muscle mass, however, his knees became unlocked and he lost his balance and fell onto his bottom and then hit his head on the ground. He reports that the ground is cement with a thin layer of carpet. He has a laceration to the back of his head. He is unsure of his last tetanus update. He denies loss of consciousness, use of blood thinners, vomiting, feeling dazed or confused. [facility] <BENNETT Miranda - Last Filed: 12/17/22 18:48> [facility] Medical History Anemia CYST EXCISION RIGHT BREAST Hypertension Myositis Osteopenia Home Medications lisinopril 10 mg tablet 5 mg PO DAILY 03/29/16 [History Last Taken Unknown] Cholecalciferol (Vitamin D3) 1,000 units PO DAILY 07/31/16 [History Last Taken Unknown] multivitamin with folic acid 400 mcg tablet (Thera) 1 tab PO DAILY 07/31/16 [History Last Taken Unknown] cyanocobalamin (vitamin B-12) 1,000 mcg sublingual tablet 1,000 mcg sublingual DAILY 12/04/17 [History Last Taken Unknown] Nitric Oxide 420 mg PO DAILY 12/04/18 [History Last Taken Unknown] coenzyme Q10 50 mg chewable tablet 200 mg PO DAILY 12/04/18 [History Last Taken Unknown] elderberry fruit 200 mg capsule 200 mg PO DAILY 12/17/22 [History Last Taken Unknown] turmeric 400 mg capsule 400 mg PO DAILY 12/17/22 [History Last Taken Unknown] Allergy/AdvReac Type Severity Reaction Status Date / Time bacitracin AdvReac Mild Itching Verified 12/17/22 15:35 [From Neosporin ([id number])] neomycin AdvReac Mild Itching Verified 12/17/22 15:35 [From Neosporin ([id number])] polymyxin B AdvReac Mild Itching Verified 12/17/22 15:35 [From Neosporin ([id number])] adhesive tape AdvReac Unknown Verified 12/17/22 15:35 Family History Father Colon cancer Mother Gastric cancer Surgical History History of cataract extraction Social History Smoking Status: Never smoker ROS <BENNETT Miranda - Last Filed: 12/17/22 18:48> ROS ED Constitutional Constitutional ED: Denies chills or fever(s) Eyes Eyes: Denies change in vision Cardiovascular Cardiovascular: Denies chest pain or palpitations Respiratory/Chest Respiratory/Chest: Denies cough or dyspnea Gastrointestinal Gastrointestinal: Denies abdominal pain, nausea or vomiting Musculoskeletal Musculoskeletal: Reports arthralgias; Denies back pain, myalgias or neck pain Integumentary Reports laceration Neurologic Neurologic: Denies confusion, dizziness, headache(s) or weakness EXAM <BENNETT Miranda - Last Filed: 12/17/22 18:48> Physical Exam Const Vital Signs: 12/17/22 15:35 12/17/22 15:43 Temperature 97.2 F L Temperature Source Temporal Pulse Rate 65 Respiratory Rate 18 Respiratory Effort Normal Non-Labored Respiratory Depth Normal Respiratory Pattern Normal Blood Pressure 167/68 H Blood Pressure Mean 101 Pulse Ox 98 Oxygen Delivery Method Room Air Positive well nourished, well developed and no apparent distress General Appearance ED: well developed HEENT Reports normocephalic HEENT Narrative: 4 cm linear full-thickness laceration to the posterior scalp Mouth ED: Yes moist mucous membranes normal Eyes PERRL and EOMs intact bilaterally Neck full ROM and supple Chest Wall inspection of chest normal Resp normal respiratory effort and clear to auscultation bilaterally Cardio regular rate and regular rhythm GI soft to palpation, non-tender, non-distended and no masses Back/Spine normal ROM and normal to inspection Extremity normal to inspection and full ROM Neuro oriented x3, CN's II-XII intact bilaterally, moves all extremities, no focal motor deficits and no sensory deficits noted Sensorium / Orientation: awake and alert Psych mental status grossly normal and thought process normal Skin no rashes or lesions noted and no wounds <Dr. Tor Yadav MD - Last Filed: 12/17/22 16:06> Physical Exam Const Vital Signs: 12/17/22 15:35 12/17/22 15:43 Temperature 97.2 F L Temperature Source Temporal Pulse Rate 65 Respiratory Rate 18 Respiratory Effort Normal Non-Labored Respiratory Depth Normal Respiratory Pattern Normal Blood Pressure 167/68 H Blood Pressure Mean 101 Pulse Ox 98 Oxygen Delivery Method Room Air MDM <BENNETT Miranda - Last Filed: 12/17/22 18:48> [facility] Narrative Medical decision making narrative: Patient presenting today for evaluation after mechanical fall that occurred this afternoon at home. He fell backwards onto his bottom and then hit his head on the ground. He does have a 4 cm linear full-thickness laceration to his posterior scalp that will need closure. He reports some pain to his bilateral knees but did not hit his knees on the ground, therefore, I do not feel that any imaging of his knees is indicated. However, he did tell the attending that his back was very sore, lumbar x-ray obtained to rule out fracture and is negative. Head CT will be obtained to rule out intracranial bleed and is negative for any acute fractures. Tetanus updated. Laceration was sutured, patient tolerated procedure well. He was able to ambulate at discharge and discharged home in stable condition. Patient and are comfortable with plan. I have personally performed a face to face assessment of the patient and have reviewed the GET Note. I performed a substantive portion of the visit including all aspects of the following. My [place] findings include: History is 82-year-old male history of inclusion body myositis with muscular wasting. He is down his basement and lost his balance fell backwards struck his head causing a laceration. No LOC. Is not on blood thinners. Complaining of low back pain. No other injuries. Exam is [82-year-old male vital signs stable afebrile. HEENT exam top of the scalp is a vertical laceration which on active losing of blood. Hematoma. Tenderness. Face nontender. C-spine and trachea nontender. Lungs clear. Chest wall and ribs nontender. Heart regular rhythm rate about 65 no murmur. Abdomen soft nontender. Pelvic girdle intact. He has very limited range of motion he is weak in both upper and lower extremities due to his chronic condition. He has chronic edema both lower extremities. He has mild tenderness over his lumbar spine. Neurologically he is awake and alert. Answering questions and following commands. He has generalized weakness.] Medical Decision Making [82-year-old fell has a significant head injury with laceration and hematoma. CAT scan will be obtained to rule out intracranial bleed or skull fracture. Tetanus has been updated. He will be suture repaired.] Other additions or changes: [None] Radiography X-Ray: Read by ED Physician and Read by Radiologist Diagnostic Testing: Clinical Impression(s) from Imaging Studies Brain CT 12/17/22 15:42 IMPRESSION: Mild periventricular white matter ischemic change. No evidence for acute intracranial hemorrhage. Electronically Signed: Paulie Licona MD at 16:07 EDT , Lumbar Spine X-Ray 12/17/22 16:15 IMPRESSION: Scoliosis and degenerative change. No acute fracture or other significant bony pathology. Electronically Signed: Paulie Licona MD at 16:43 EDT , <Dr. Tor Yadav MD - Last Filed: 12/17/22 16:06> [facility] Narrative Medical decision making narrative: Patient presenting today for evaluation after mechanical fall that occurred this afternoon at home. He fell backwards onto his bottom and then hit his head on the ground. He does have a 4 cm linear full-thickness laceration to his posterior scalp that will need closure. He reports some pain to his bilateral knees but did not hit his knees on the ground, therefore, I do not feel that any imaging of his knees is indicated. Head CT will be obtained to rule out intracranial bleed. I have personally performed a face to face assessment of the patient and have reviewed the GET Note. I performed a substantive portion of the visit including all aspects of the following. My [place] findings include: History is 82-year-old male history of inclusion body myositis with muscular wasting. He is down his basement and lost his balance fell backwards struck his head causing a laceration. No LOC. Is not on blood thinners. Complaining of low back pain. No other injuries. Exam is [82-year-old male vital signs stable afebrile. HEENT exam top of the scalp is a vertical laceration which on active losing of blood. Hematoma. Tenderness. Face nontender. C-spine and trachea nontender. Lungs clear. Chest wall and ribs nontender. Heart regular rhythm rate about 65 no murmur. Abdomen soft nontender. Pelvic girdle intact. He has very limited range of motion he is weak in both upper and lower extremities due to his chronic condition. He has chronic edema both lower extremities. He has mild tenderness over his lumbar spine. Neurologically he is awake and alert. Answering questions and following commands. He has generalized weakness.] Medical Decision Making [82-year-old fell has a significant head injury with laceration and hematoma. CAT scan will be obtained to rule out intracranial bleed or skull fracture. Tetanus has been updated. He will be suture repaired.] Other additions or changes: [None] History Record Review Discussion w/independent historian: Patient and Family Radiography Diagnostic Testing: Clinical Impression(s) from Imaging Studies Brain CT 12/17/22 15:42 IMPRESSION: Mild periventricular white matter ischemic change. No evidence for acute intracranial hemorrhage. Electronically Signed: Paulie Licona MD at 16:07 EDT , Lumbar Spine X-Ray 12/17/22 16:15 IMPRESSION: Scoliosis and degenerative change. No acute fracture or other significant bony pathology. Electronically Signed: Paulie Licona MD at 16:43 EDT , Procedures <BENNETT Miranda - Last Filed: 12/17/22 18:48> Lacerations Laceration: Length: 4 cm Depth: Sub Q Shape: Linear Laceration repair: Irrigated and Lidocaine with epi Irrigated (ml): 100 Number of Sutures/[place]: 6 Suture Information: Ethilon (4-0) and Simple Discharge Plan Triage Chief Complaint: Fall Other Complaint: Head Injury Laceration ED Midlevel Provider: Maria Dolores Shay ED Provider: Tor Yadav Dx/Rx/DC Orders Clinical Impression: Head injury, Fall, Laceration of scalp Instructions: ED Head Injury (Adult), ED Laceration Scalp Stitches or [place] Prescriptions: No Action multivitamin with folic acid [Thera] 1 TABLET tablet 1 tab PO DAILY Cholecalciferol (Vitamin D3) 1,000 U 1,000 units PO DAILY lisinopril 10 mg tablet 5 mg PO DAILY Patient Comments: once a day cyanocobalamin (vitamin B-12) 1,000 MCG tablet, sublingual 1,000 mcg sublingual DAILY coenzyme Q10 50 MG tablet,chewable 200 mg PO DAILY Nitric Oxide 420 mg PO DAILY turmeric 400 mg capsule 400 mg PO DAILY elderberry fruit 200 mg capsule 200 mg PO DAILY Primary Care Provider: Taylor Zuniga Referrals: Tee Pendleton MD [Non-Staff] - 10-14 Days suture removal Activity Restrictions/Additional Instructions: Please follow-up with your PCP. Please have sutures removed in 10 to 14 days and return for any worsening of your symptoms. Disposition Disposition: Home, Self Care Discharge Date/Time: 12/17/22 18:08 What to do if you have Problems For any increased pain, shortness of breath, bleeding, nausea or vomiting, chest pain, or any unexpected problems, contact your Primary Care Provider. Call [facility] ([phone]) or report to the closest Emergency Room. Call 911 if necessary. 08/13/23 2018 <Electronically signed by Tor Yadav MD> Cosigner Signature (if applicable): 12/17/22 1848 <Electronically signed by Maria Dolores GUAJARDO> CC: Dr. Taylor Zuniga, DO Signed Taylor Zuniga DO Work Phone: Start: 12-17-2022 CT of head without contrast Cataract extraction and insertion of intraocular lens Taylor A Fast DO Work Phone: Comment on above: bilateral- Dr Gera [place] Cataract extraction and insertion of intraocular lens Taylor Juarez Fast DO Work Phone: Comment on above: bilateral- Dr Gera [place] Tonsillectomy Taylor A Fast D O Work Phone: Tonsillectomy Taylor A Fast D O Work Phone: Plan of Treatment Date Care Activity Detail Author Start: 12-25-2022 Blood count complete auto&auto difrntl wbc CBC W/AUTO DIFF WBC (80268) [facility]; [facility] Work Phone: Start: 12-25-2022 25 hydroxy includes fractions if performed Vitamin D Hydroxy (35261) [facility]; [facility] Work Phone: Start: 12-25-2022 Hemoglobin glycosylated a1c HGB A1C (40266) [facility]; [facility] Work Phone: Start: 12-25-2022 Comprehensive metabolic panel METABOLIC PANEL, COMPREHENSIVE (99971) [facility]; [facility] Work Phone: Start: 12-25-2022 Procedure Education Eprescribed prescriptions (G8553) [facility]; [facility] Work Phone: Start: 12-17-2022 Smpl repair scalp/neck/ax/genit/trun k 2.6-7.5cm RPR S/N/AX/GEN/TRNK2.6-7.5C M [facility] Start: 08-22-2022 Natriuretic peptide BNTP (51620) [facility]; [facility] Work Phone: Start: 08-22-2022 Assay of prostate specific antigen total PSA (Medicare - G0103) (24009) [facility]; [facility] Work Phone: Start: 08-22-2022 Lipid panel LIPID PANEL (21039) [facility]; [facility] Work Phone: Start: 08-22-2022 25 hydroxy includes fractions if performed Vitamin D Hydroxy (12452) [facility]; [facility] Work Phone: Start: 08-22-2022 Cyanocobalamin vitamin b-12 VITAMIN B12 AND FOLATES (03381) [facility]; [facility] Work Phone: Start: 08-22-2022 Urine albumin quantitative MICROALBUMIN: CREATININE RATIO (60972) AND (86527) [facility]; [facility] Work Phone: Start: 08-22-2022 Urnls dip stick/tablet reagent auto microscopy URINALYSIS, W/ MICRO (99799) [facility]; [facility] Work Phone: Start: 08-22-2022 Assay of thyroid stimulating hormone tsh TSH (67800) [facility]; [facility] Work Phone: Start: 08-22-2022 Blood count complete auto&auto difrntl wbc CBC W/AUTO DIFF WBC (36896) [facility]; [facility] Work Phone: Start: 08-22-2022 Comprehensive metabolic panel METABOLIC PANEL, COMPREHENSIVE (97750) [facility]; [facility] Work Phone: Patient Education ED Head Injury (Adult) ED Laceration Scalp Stitches or [place] [facility] Work Phone: Patient referral [facility] Work Phone: [facility]; [facility] Work Phone: Immunizations Immunization Date Immunization Notes Care Provider Thao zimmerman 12-17-2022 tetanus toxoid, redu jonathan diphtheria toxoid, and acellular pertussis vaccine, adsorbed [facility] 03-29-2016 tetanus and diphther ia toxoids, adsorbed, preservative free, for adult use (2 Lf of tetanus toxoid and 2 Lf of diphtheria toxoid) [facility] Payers Date Payer Category Payer Self-pay [id number] 2022 Private Health Insurance [facility] [id number] 2011 Unknown [id number] 2003 Medicare [id number] 1940 Unknown [id number] 2.16.84 [id number] Unknown Unknown [id number] 2.16.8 [id number] Unknown [id number] 2.16.8 [id number] Unknown [id number] 2.16.8 [id number] Unknown [id number] 2.16.8 [id number] Unknown [id number] 2.16.8 [id number] Unknown [id number] 2.16.8 [id number] Unknown [id number] 2.16.8 [id number] Unknown [id number] 2.16.8 [id number] Unknown [id number] 2.16.8 [id number] Unknown [id number] 2.16.8 [id number] Unknown [id number] 2.16.8 [id number] Social History Date Type Detail Facility Current Household Members Current Household Members [facility]; [facility] Work Phone: 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 Start: 1940 Sex Assigned At Male [facility] Start: 02-01-2024 Tobacco smoking stat us NHIS Never smoked tobacco (finding) [facility] Discharge summary note 02-12-2024 Note Date & Type Note Facility 02-12-2024 Note [facility] Medical Records Department [address] [place] [address] Discharge Summary 02/12/24 1849 MR#: [id number] Acct: [id number] Name: EVANGELISTA LANDRY Rep #: [id number] : 1940 83 From: Rey Henao MD PCP: Dr. Taylor Zuniga DO Status:ADM IN Location: [facility] TCU19-1 Providers Date of Admission: 02/01/24 Primary Care Physician: Dr. 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 (5) Inclusion body myositis: Status: Acute Code(s): G72.41 - 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] (6) Weakness: Status: Acute Code(s): R53.1 - Weakness (7) Anemia: Status: Acute Code(s): D64.9 - Anemia, unspecified Qualifiers: Anemia type: unspecified type Qualified Code(s): D64.9 - Anemia, unspecified Medications at Discharge Home Medications Cholecalciferol (Vitamin D3) 1,000 units PO DAILY supplement 07/31/16 multivitamin with folic acid 400 mcg tablet (Thera) 1 tab PO DAILY supplement 07/31/16 cyanocobalamin (vitamin B-12) 1,000 mcg sublingual tablet 1,000 mcg sublingual DAILY supplement 12/04/17 Nitric Oxide 420 mg PO DAILY supplement 12/04/18 coenzyme Q10 50 mg chewable tablet 200 mg PO DAILY supplement 12/04/18 elderberry fruit 200 mg capsule 200 mg PO DAILY supplement 12/17/22 turmeric 400 mg capsule 400 mg PO DAILY supplement 12/17/22 cetirizine 10 mg tablet (24Hour Allergy) 10 mg PO DAILY allergies 01/29/24 lisinopril 5 mg tablet 10 mg PO DAILY blood pressure 01/29/24 Hospital Course Operations None Procedures None Summary of Care Provided Minutes Spent on Discharge: 35 Hospital Course: 83 year old male with below past medical history hospitalized for right lower extremity cellulitis, complicated by hyponatremia, admitted to TCU with debility, here for rehabilitation, strengthening, prior to discharge home with . Discharge home with 02/16/2024, [facility]. Physical Exam Const alert General Appearance: cooperative HEENT normocephalic Eyes PERRL and EOMs intact bilaterally Neck supple, no JVD and no carotid bruits Resp normal respiratory effort, normal air movement and clear to auscultation bilaterally Cardio regular rate and regular rhythm GI normal to inspection, nondistended, normoactive bowel sounds, non-tender and non-distended Extremity normal capillary refill General Extremity: Negative for edema Skin no rashes or lesions noted General Skin Exam: no breakdown Psych affect normal Appearance: appropriate Weight / BMI Weight Weight: 66.542 kg Body Mass Index (BMI) 23.0 ABG / Lab / Microbiology Data 02/08/24 05:35 02/08/24 05:35 Microbiology: Microbiology 02/12/24 05:42 Nasal Secretion SARS-CoV-2 Antigen (Rapid) - Final 02/06/24 16:00 Stool Stool Occult Blood (BRENT) - Final 02/05/24 05:00 Nasal Secretion SARS-CoV-2 Antigen (Rapid) - Final D/C Instructions Discharge Diet: No restrictions Discharge Activity: Return to Normal Activity, May Shower and Use Walker Weight Bearing Status: Weight bearing as tolerated Call your doctor if you observe: Fever of 101 or Higher, Inability to urinate, Inability to have a bowel movement, Shortness of breath, Dizziness, Fainting spells, Swelling in the ankles, Chest pain and Uncontrolled pain Additional Instructions: Discharge home with 02/16/2024, [facility] SN. Meaningful Use Info Meaningful Use Meaningful Use Diagnoses (Choose all that apply): None applicable Ischemic Stroke Statin Dosing Therapy Reference: STATIN DOSE THERAPY REFERENCE: * Patients > 75 years receive moderate or high dose statin therapy. * Patients 75 years or YOUNGER should receive HIGH intensity statin dose unless contraindicated. You will be required to document reason for non-treatment if statin daily dose does not meet guidelines. HIGH DOSE STATIN THERAPY DAILY Atorvastatin > than or = to 40 mg Rosuvastatin > than or = to 20 mg Amlodipine + Atorvastatin > than or = to 2.5/40 mg Ezetimibe + Simvastatin 10/80 mg Simvastatin 80mg Discharge Plan Admission Admit Date/Time: 02/01/24 17:37 Primary Reason for Your Visit: Debility. Attending Provider: Kelly Womack Primary Care Provider: Taylor Zuniga Instructions Additional Instructions / Restrictions: Disc (more content not included)... [facility] Clinical Note 02-02-2024 Note Date & Type Note Facility 02-02-2024 Note [facility] Medical Records Department [address] [place] [address] History Physical Exam 02/02/24 0806 MR#: [id number] Acct: [id number] Name: EVANGELISTA LANDRY Rep #: [id number] : 1940 83 From: Kelly Womack DO PCP: Dr. Taylor Zuniga, DO Status:ADM IN Location: [facility] [id number] HPI - General General Date of Admission: 02/01/24 Date of Service: 02/02/24 HPI Narrative EVANGELISTA LANDRY, is a 83 M with a past medical history of inclusion body myositis (diagnosed in 1995), hypertension, dysphagia and edema of the lower extremities who presented to the ED at [facility] on 01/29/2024 complaining of increased weeping from his legs and redness of both lower extremities for the preceding 2 to 3 weeks. He was treated as an outpatient with 2 rounds of Augmentin with no improvement. He was admitted to the hospitalist service and placed on IV Unasyn. A wound culture grew Pseudomonas aeruginosa, Citrobacter's Koseri and MRSA. He was transitioned to Levaquin and Vancomycin. BC's had no growth. He was transferred to SNF/TCU on 02/01/24 for therapy to strengthen/rehabilitate prior to returning home. Antibiotics at ID include doxycycline 100 mg twice daily and Levaquin 750 mg p.o. daily All lab drawn this a.m. was personally reviewed. The white blood cell count is normal at 5.6 with an unremarkable differential. The hemoglobin is stable at 11.3. Sodium was low at 129 at admission to the hospital but after intravenous fluids the sodium today is 136. Potassium is 4. Creatinine is stable at 0.32. Afebrile Vital signs stable Eating well and had 75 to 100% of his supper last night. Poor fluid intake. Evangelista tells me that he usually spends most of the day in the basement at his computer with his legs dependent. He sleeps in a recliner. His has been using Elastoplast on the legs to control edema. His legs have been weeping. The R LE always swells more than the left. The left currently brianna not have swelling. The skin over the feet and distal LE's is fibrotic, very dry and cracked and deformed. He has a stair lift at home and also has 3 vertical chair lifts to help him get up from a chair Walks with the aid of a rollator. [facility] Medical History (Updated 02/02/24 @ 12:[address] Kelly Womack, ) History of non-Hodgkin's lymphoma Lichenification Lymphedema Inclusion body myositis Scarlet fever Cancer CYST EXCISION RIGHT BREAST Osteopenia Hypertension Anemia Home Medications ???Medication ???Instructions ???Recorded ???Last Taken ???Type Cholecalciferol (Vitamin D3) 1,000 units PO DAILY supplement 07/31/16 Unknown History multivitamin with folic acid 400 1 tab PO DAILY supplement 07/31/16 Unknown History mcg tablet (Thera) cyanocobalamin (vitamin B-12) 1,000 mcg sublingual DAILY 12/04/17 Unknown History 1,000 mcg sublingual tablet supplement Nitric Oxide 420 mg PO DAILY supplement 12/04/18 Unknown History coenzyme Q10 50 mg chewable tablet 200 mg PO DAILY supplement 12/04/18 Unknown History elderberry fruit 200 mg capsule 200 mg PO DAILY supplement 12/17/22 Unknown History turmeric 400 mg capsule 400 mg PO DAILY supplement 12/17/22 Unknown History cetirizine 10 mg tablet (24Hour 10 mg PO DAILY allergies 01/29/24 02/01/24 History Allergy) lisinopril 5 mg tablet 10 mg PO DAILY blood pressure 01/29/24 02/01/24 History doxycycline monohydrate 100 mg 100 mg PO BID infection #8 caps 02/01/24 Unknown Rx capsule levofloxacin 750 mg tablet 750 mg PO DAILY@0600 infection #0 02/01/24 02/01/24 Rx tabs melatonin 3 mg tablet 3 mg PO QHS PRN PRN Insomnia #0 02/01/24 01/30/24 Rx tabs oxycodone 5 mg tablet 5 mg PO Q6H PRN pain (scale score 02/01/24 02/01/24 Rx 7-10) 3 days #12 tabs Allergy/AdvReac Type Severity Reaction Status Date / Time bacitracin (From Neosporin AdvReac Mild Itching Verified 01/29/24 14:47 ([id number])) neomycin (From Neosporin AdvReac Mild Itching Verified 01/29/24 14:47 ([id number])) polymyxin B (From Neosporin AdvReac Mild Itching Verified 01/29/24 14:47 ([id number])) adhesive tape AdvReac Unknown Verified 01/29/24 14:47 Family History Father Colon cancer Mother Gastric cancer Surgical History History of cataract extraction Social History Smoking Status: Never smoker ROS Constitutional Constitutional: Reports fatigue, weakness and other Details: Poor fluid intake and the MM are dry. ; Denies anorexia, change in weight, chills, fever(s) or night sweats Eyes Eyes: Denies blurry vision, change in vision, eye pain or loss of vision ENT HEENT: Reports dry mouth and dysphag (more content not included)... [facility] Discharge summary note 02-01-2024 Note Date & Type Note Facility 02-01-2024 Note [facility] Medical Records Department [address] [place] [address] Discharge Summary 02/01/24 1502 MR#: [id number] Acct: [id number] Name: EVANGELISTA LANDRY Rep #: [id number] : 1940 83 From: Chip Orourke DO PCP: Dr. Taylor Zuniga DO Status:ADM IN [id number] Prov[facility] Date of Admission: 01/29/24 Primary Care Physician: Dr. Taylor Zuniga DO Consultations 01/29/24 17:33 Consult: Onc/Wound/retort operator Routine Comment: Reason for Consult:: RLE wounds, BLE lymphedema 01/29/24 18:37 Consult: Onc/Wound/retort operator Routine Comment: Reason for Consult:: ganesh lower leg wounds, and coccyx wound Reason For Visit: CELLULITIS RIGHT LEG Diagnosis Discharge Diagnosis (1) Cellulitis of leg, right: Status: Acute Code(s): L03.115 - Cellulitis of right lower limb Plan Right lower extremity cellulitis * failed outpatient management with augmentin. Wound PCR showing MRSA and staph. Wound and BCx pending. Legs themselves appear to be unremarkable although discussing with the wound care, is concerning for an odor that may be consistent with Pseudomonas. Patient was initially started on Unasyn. Fact that he did not get any better with the Augmentin this would be more or less a lateral move in regards to antibiotics and would treat more aggressively at this point in time though not really sure that this is truly infected. * I feel patient would require better compression upon going home, patient states that he is try compression stockings in the past but, given his inclusion body myositis, he did not have the strength to do so nor does his have a strength in order to put those on. He expressed interest in using Yogesh wrap's. * Wound culture: Pseudomonas, Citrobacter and S. aureus. Change abx to LVQ. Continue vancomycin for now. Hyponatremia * improved with IVF Generalized weakness * Suspect d/t underlying infection versus hyponatremia or combination of both * PT OT eval and treat * Discussed with the patient and his about his weakness. They have the misunderstanding that insurance would cover health aides. Informed them that insurance would cover home health care may be palliative care but [id number] care that would not be covered and that would be [id number] expenses. 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 Disposition: To be determined. Greater than 35 minutes of which greater than 50% of time was discussing with the patient and his about disposition options. Discussed with them about the unfeasibility of home health care and palliative care for his needs at this time. Also explained there would be cost associated with hiring aides. Did strongly recommend group home facility. Also try to dissuade them from the misunderstanding that going to a group home facility is not a stepping stone to going to a fdc but the goal is to get him into home. They seemed receptive to that and would like to again discuss with social work. Medications at Discharge Home Medications Cholecalciferol (Vitamin D3) 1,000 units PO DAILY 07/31/16 multivitamin with folic acid 400 mcg tablet (Thera) 1 tab PO DAILY 07/31/16 cyanocobalamin (vitamin B-12) 1,000 mcg sublingual tablet 1,000 mcg sublingual DAILY 12/04/17 Nitric Oxide 420 mg PO DAILY 12/04/18 coenzyme Q10 50 mg chewable tablet 200 mg PO DAILY 12/04/18 elderberry fruit 200 mg capsule 200 mg PO DAILY 12/17/22 turmeric 400 mg capsule 400 mg PO DAILY 12/17/22 cetirizine 10 mg tablet (24Hour Allergy) 10 mg PO DAILY allergies 01/29/24 lisinopril 5 mg tablet 10 mg PO DAILY 01/29/24 doxycycline monohydrate 100 mg capsule 100 mg PO BID #8 caps 02/01/24 levofloxacin 750 mg tablet 750 mg PO DAILY@0600 #0 tabs 02/01/24 melatonin 3 mg tablet 3 mg PO QHS PRN PRN Insomnia #0 tabs 02/01/24 oxycodone 5 mg tablet 5 mg PO Q6H PRN pain (scale score 7-10) 3 days #12 tabs 02/01/24 Hospital Course Operations None Procedures None Summary of Care Provided Minutes Spent on Discharge: 45 Hospital Course: Patient presents with increasing seeping from right lower extremity wounds. Patient has rut lymphedematous changes to his lower extremity with cobblestoning type scarring. But on his right leg he had wound that was draining. His to the point where he has had to put a baby . Tubes were bulb fluid that was draining from that. He was on Augmentin prior to arrival but still continued to drain. Patient was admitted here for that for cellulitis. On my evaluation did not hernandez to be cellulitic but description of the wound nurse, mamta kelly (more content not included)... [facility] Discharge instructions 12-17-2022 Note Date & Type Note Facility 12-17-2022 Hospital Discharg e instructions Additional Instructions Please follow-up with your PCP. Please have sutures removed in 10 to 14 days and return for any worsening of your symptoms. [facility] Work Phone: Evaluation note Note Date & Type Note Facility Evaluation note No assessment information availa ble [facility] Work Phone: Instructions Note Date & Type Note Facility Instructions Name Patient Instructions Indication:Hypertension Start:25-Dec-2022 Instruction Type:Provider Instructions for Treatment [facility] Work Phone: Instructions Note Date & Type Note Facility Instructions Name Patient Instructions Indication:Hypertension Start:25-Dec-2022 Instruction Type:Provider Instructions for Treatment [facility] Work Phone: Instructions Note Date & Type Note Facility Instructions Name Patient Instructions Indication:Hypertension Start:25-Dec-2022 Instruction Type:Provider Instructions for Treatment [facility] Work Phone: Reason for referral (narrative) Note Date & Type Note Facility Reason for referral (narrative) No reason for referral information available [facility] Work Phone: Summary Purpose Family History No Family History Records FoundUnknown Family Member Name Dates Details Brother 1 Comments: 67- unsure cause of but had arhtritis and hip replacement and back surgery Status:Active Father Comments: at 83- fro m auto accident - also had colorectal cancer with colostomy Status:Active Mother Comments: 78-m color ectal cancer Status:Active Sister 1 Comments:living doesnt know hx Status:Active Unknown Family Member Name Dates Details Brother 1 Comments: 67- unsure cause of but had arhtritis and hip replacement and back surgery Status:Active Father Comments: at 83- fro m auto accident - also had colorectal cancer with colostomy Status:Active Mother Comments: 78-m color ectal cancer Status:Active Sister 1 Comments:living doesnt know hx Status:Active Relationship Condition Age at Onset Recorded Date/T young father Malignant neoplasm of colon Unknown mother Malignant neoplasm of stomach Unknown Unknown Family Member Name Dates Details Brother 1 Comments: 67- unsure cause of but had arhtritis and hip replacement and back surgery Status:Active Father Comments: at 83- fro m auto accident - also had colorectal cancer with colostomy Status:Active Mother Comments: 78-m color ectal cancer Status:Active Sister 1 Comments:living doesnt know hx Status:Active Unknown Family Member Name Dates Details Brother 1 Comments: 67- unsure cause of but had arhtritis and hip replacement and back surgery Status:Active Father Comments: at 83- fro m auto accident - also had colorectal cancer with colostomy Status:Active Mother Comments: 78-m color ectal cancer Status:Active Sister 1 Comments:living doesnt know hx Status:Active Unknown Family Member Name Dates Details Brother 1 Comments: 67- unsure cause of but had arhtritis and hip replacement and back surgery Status:Active Father Comments: at 83- fro m auto accident - also had colorectal cancer with colostomy Status:Active Mother Comments: 78-m color ectal cancer Status:Active Sister 1 Comments:living doesnt know hx Status:Active Advance Directives No Advanced Directives Records Found Advance Directive Response Recorded Date/ Time Advance Directives Yes March 4:25pm Living Will Yes March 29, 016 4:25pm Power of [employer] Yes March 29, 2016 4:25pm Advance Directive Response Recorded Date/ Time Name of Medical Power of [employer] present December 17, 2022 3:39pm Advance Directives Yes March 4:25pm Living Will Yes December 17 3:39pm Power of [employer] Yes December 17 023 3:39pm Advance Directive Response Recorded Date/ Time Advance Directives Yes March 3:25pm Living Will Yes December 17 3 2:39pm Power of [employer] Yes December 17 2 023 2:39pm Name of Medical Power of [employer] present December 17, 2022 2:39pm Advance Directive Response Recorded Date/ Time Advance Directives Yes March 4:25pm Living Will Yes December 17 3 3:39pm Power of [employer] Yes December 17, 2 023 3:39pm Advance Directive Response Recorded Date/ Time Advance Directives Yes March 3:25pm Living Will Yes December 17 3 2:39pm Power of [employer] Yes December 17, 2 023 2:39pm Advance Directive Response Recorded Date/ Time Advance Directives Yes March 4:25pm Chief Complaint and Reason for Visit Chief Complaint VENOUS INSUFFICIENCY , CELLULITIS, 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 MECHANIC Chief Complaint VENOUS INSUFFICIENCY , CELLULITIS, NONPRESSURE 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 MECHANIC fall, head injury, laceration Chief Complaint VENOUS INSUFFICIENCY , CELLULITIS, NONPRESSURE 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 MECHANIC fall, head injury, laceration HOME DRAW LAB WORK Chief Complaint fall, head injury, l aceration HOME DRAW LAB WORK HOME DRAW LAB WORK Chief Complaint LABWORK HOMEDRAW LABWORK Chief Complaint HOME DRAW LAB WORK HOME DRAW LAB WORK LABWORK Chief Complaint Admit Date HOME DRAW LAB WORK June 19, 2024 8:43am LABWORK September 16, 2024 8:44a m Chief Complaint Admit Date LABWORK September 16, 2024 8:44a m HOME DRAW LAB WORK December 18, 2024 10 :05am Additional Source Comments (unrecognized sect ion and content) No Status Records FoundNo Status Records Found INFORMATION SOURCE (unrecogn ized section and content) DATE CREATED AUTHOR 08/22/2022 [facility] DATE CREATED AUTHOR AUTHOR'S ORGANIZ ATION 12/26/2024 [facility] Care Teams (unrecognized sec tion and content) Team Status: Active Member Role Status Dates Dr. Tee Pendleton MD Family Provider Active Dr. Tee Pendleton MD Primary Care Provider Active Team Status: Inactive Member Role Status Dates Dr. Tee Pendleton MD Primary Care Provider Active Dr. Taylor Zuniga DO Attending Provider, Referring Prov ider Active Team Status: Active Member Role Status Dates Dr. Tee Pendleton MD Family Provider Active Dr. Taylor Zuniga DO Primary Care Provider Active Team Status: Inactive Member Role Status Dates Dr. Tor Yadav MD Emergency Provider Active Dr. Taylor Zuniga DO Primary Care Provider Active Team Status: Inactive Member Role Status Dates Dr. Tor Yadav MD Attending Provider, Emergency Pro vider Active Dr. Taylor Zuniga DO Primary Care Provider Active Team Status: Inactive Member Role Status Dates Dr. Taylor Zuniga DO Primary Care Provide r, Attending Provider, Referring Provider Active Team Status: Inactive Member Role Status Dates Dr. Taylor Zuniga DO Primary Care Provider, Attending P rovider Active Team Status: Inactive Member Role Status Dates Dr. Taylor Zuniga DO Primary Care Provider Active Start: June 19, 2024 End: June 19, 2024 Dr. Taylor Zuniga DO Attending Provider Active St art: June 19, 2024 End: June 19, 2024 Team Status: Inactive Member Role Status Dates Dr. Taylor Zuniga DO Primary Care Provider Active Start: September 16, 2024 End: September 16, 2024 Dr. Taylor Zuniga DO Attending Provider Active St art: September 16, 2024 End: September 16, 2024 Team Status: Active Member Role/Relationship Status Dates Dr. Tee Pnedleton MD Family Provider Active Dr. Taylor Zuniga DO Primary Care Provider Active Team Status: Inactive Member Role/Relationship Status Dates Dr. Taylor Zuniga DO Primary Care Provider Active Start: September 16, 2024 End: September 16, 2024 Dr. Taylor Zuniga DO Attending Provider Active St art: September 16, 2024 End: September 16, 2024 Team Status: Inactive Member Role/Relationship Status Dates Dr. Taylor Zuniga DO Primary Care Provider Active Start: December 18, 2024 End: December 18, 2024 Dr. Taylor Zuniga DO Attending Provider Active St art: December 18, 2024 End: December 18, 2024 Goals (unrecognized section and content) Goals may be documented in a n alternate sectionGoals may be documented in an alternate sectionGoals may be documented in an alternate sectionGoals may be documented in an alternate sectionGoals may be documented in an alternate sectionGoals may be documented in an alternate sectionGoals may be documented in an alternate sectionGoals may be documented in an alternate section FOR RECORDS PERTAINING TO PATIENTS WHO ARE OR HAVE BEEN ENROLLED IN A CHEMICAL DEPENDENCY/SUBSTANCEABUSE PROGRAM, SOME INFORMATION MAY BE OMITTED. This clinical summary was aggregated from multiple sources. Caution should be exercised in using it in the provision of clinical care. This summary normalizes information from multiple sources, and as a consequence, information in this document may materially change the coding, format and clinical context of patient data. In addition, data may be omitted in some cases. CLINICAL DECISIONS SHOULD BE BASED ON THE PRIMARY CLINICAL RECORDS. [facility] provides no warranty or guarantee of the accuracy or completeness of information in this document.
--- NOTE | 2025-02-24 19:00 | CON.PCM.SX_ITS ---
Assessment & Plan Assessment/Plan (1) Abnormal CT of the abdomen: (2) N&V (nausea and vomiting): PLAN: Plan Did review CT chest abdomen pelvis personally unable to follow stomach well to find a reason for the gastric outlet obstruction. Patient did previously have entire stomach in the chest in 2019 and a hiatal hernia. Did place NG at bedside and got about 2300 out initially still draining. ER is planning to repeat CT abdomen pelvis see if we have any better evaluation once the stomach has been drained. Addendum: repeat CT a/p shows distal stomach and 1st part of duodenum still in chest- recommend transfer to tertiary care . Windy Jasso M.D. Pager: [phone] [facility] [address] [place] [address], Outpatient [place], [address] [place] [address] Office: [phone] HPI Consult Data Date of Consult: 02/25/25 HPI Narrative HPI Narrative: JEANIE LANDRY, is a 84 M who presents due to continuing spitting up and vomiting. 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 Patient's has been chopping up food into smaller bites and he is able to typically swallow this. They had some turkey gravy and green beans yesterday and patient did have a large amount of emesis yesterday and then this morning he was having difficulty swallowing even water as the was trying to get him rehydrated due to all the vomiting yesterday. He did complain of some abdominal discomfort yesterday. CT chest abdomen pelvis was done patient does have a history of large hiatal hernia in 2019 and entire stomach was in his chest. Current CT does show very dilated stomach with appears to have the prepyloric stomach and duodenum and the chest distended with fluid as well as the gastric body distended with fluid and air-read pending [facility] Medical History (Updated 02/24/25 @ 21:[address] Zee Alonso, ) History of non-Hodgkin's lymphoma Lichenification Lymphedema Inclusion body myositis Scarlet fever Cancer CYST EXCISION RIGHT BREAST Osteopenia Hypertension Anemia Home Medications ?Medication ?Instructions ?Recorded ?Last Taken ?Type Cholecalciferol (Vitamin D3) 1,000 units PO DAILY supp lement 07/31/16 Unknown History multivitamin with folic acid 400 1 tab PO DAILY supple ment 07/31/16 Unknown History mcg tablet (Thera) cyanocobalamin (vitamin B-12) 1,000 mcg sublingual JEREMY LY 12/04/17 Unknown History 1,000 mcg sublingual tablet supplement Nitric Oxide 420 mg PO DAILY supplement 0 12/04/18 Unknown History coenzyme Q10 50 mg chewable tablet 200 mg PO DAILY sup plement 12/04/18 Unknown History elderberry fruit 200 mg capsule 200 mg PO DAILY supple ment 12/17/22 Unknown History turmeric 400 mg capsule 400 mg PO DAILY supplement 0 12/17/22 Unknown History cetirizine 10 mg tablet (24Hour 10 mg PO DAILY allergi es 01/29/24 02/01/24 History Allergy) lisinopril 5 mg tablet 10 mg PO DAILY blood pressur e 01/29/24 02/01/24 History Allergy/AdvReac Type Severity Reaction Status Date / Time bacitracin (From Neosporin AdvReac Mild Itching Verified 02/24/25 17:08 ([id number])) neomycin (From Neosporin AdvReac Mild Itching Verified 02/24/25 17:08 ([id number])) polymyxin B (From Neosporin AdvReac Mild Itching Verified 02/24/25 17:08 ([id number])) adhesive tape AdvReac Unknown Verified 02/24/25 17:08 Family History Father Colon cancer Mother Gastric cancer Surgical History History of cataract extraction Social History Smoking Status: Never smoker ROS Constitutional Constitutional: Reports anorexia ENT HEENT: Reports dysphagia Cardiovascular Cardiovascular: Reports chest pain Gastrointestinal Gastrointestinal: Reports abdominal pain and constipation Genitourinary Genitourinary: Denies hematuria Musculoskeletal Musculoskeletal: Reports difficulty walking Integumentary Integumentary: Denies jaundice Neurologic Neurologic: Reports weakness Hematologic/Lymphatic Hematologic/Lymphatic: Denies easy bleeding Physical Exam Const alert General Appearance: frail Nutritional Appearance: cachectic Resp normal respiratory effort Cardio Rate: regular rate GI soft to palpation, non-tender and non-distended Lab / Micro Data 02/24/25 17:48 02/24/25 17:48 Labs: Laboratory Results - last 24 hr 02/24/25 17:48: WBC 9.3, RBC 4.57 L, Hgb 14.4, Hct 41.8, MCV 91.5, MCH 31.5, MCHC 34.4, RDW Std Deviation 41.1, RDW Coeff of Nils 12.4, Plt Count 247, MPV 10.0, Immature Gran % (Auto) 0.400, Neut % (Auto) 86.5 H, Lymph % (Auto) 4.6 L, Steele % (Auto) 8.4, Eos % (Auto) 0.0, Baso % (Auto) 0.1, Absolute Neuts (auto) 8.0 H, Absolute Lymphs (auto) 0.43 L, Nucleated RBC % 0, Sodium 142, Potassium 3.5, Chloride 93 L, Carbon Dioxide 36.6 H, Anion Gap 13, BUN 18, Creatinine 0.69 L, Estim Creat Clear Calc 61.97, Est GFR (MDRD) Non-Af 90, BUN/Creatinine Ratio 26.8 H, Glucose 190 H, Calcium 10.4, Total Bilirubin 0.57, AST 22, ALT 13, Alkaline Phosphatase 68, Total Protein 7.9, Albumin 4.7, Globulin 3.2, Albumin/Globulin Ratio 1.4 Charges/Coding Visit Charges Office Visits / Consults: 38498 ED Visit; High/Urgent Severity Multi Select Codes Visit Charges Office Visit/Consults: 97496 ED Visit; High/Urgent Severity
[2025-02-24 19:03] VITALS: BP 208/184; PULSE 70; RESP 24; O2SAT 100
[2025-02-24 19:56] VITALS: BP 173/56
--- NOTE | 2025-02-24 20:30 | CT_ITS ---
PROCEDURE: CT ABDOMEN/PELVIS WITHOUT CONT 02/24/2025 REASON FOR EXAM: ABDOMINAL PAIN TECHNIQUE: Procedure Code: CTABDPEL Modality: CT Procedure: ABDOMEN/PELVIS WITHOUT CONT Noncontrast technique limits evaluation of the abdominal and pelvic viscera. Coronal and Sagittal reconstruction series were provided. One or more dose reduction techniques were used (e.g., Automated exposure control, adjustment of the mA and/or kV according to patient size, use of iterative reconstruction technique). RADIATION DOSE SUMMARY: DLP: 1107.46 mGycm COMPARISON: Earlier same day 02/24/2025. FINDINGS: Lung bases: Mild bibasilar dependent atelectasis. Redemonstrated hiatal hernia protruding into the posterior mediastinum, which contains a herniated segment of the proximal duodenum, mildly distended. Not substantially changed since prior exam from earlier same day. Liver: Unremarkable. Gallbladder: Unremarkable. Spleen: Normal in size. Punctate calcified granulomas. Pancreas: Unremarkable. Age-related fatty atrophy. Adrenals: Unremarkable, no discrete nodules. Kidneys: Unremarkable. No hydronephrosis. Bladder: Unremarkable. Excreted IV contrast opacifies the bladder lumen. Reproductive Organs: Mildly enlarged prostate. Bowel: Enteric tube terminates within the proximal stomach. Interval decreased distention of the stomach and proximal duodenum with fluid and air since prior exam. Similar configuration of a moderate-large hiatal hernia which contains a herniated segment of the proximal duodenum. Remainder of the GI tract demonstrates no evidence for obstruction or active inflammatory process. Unremarkable appendix. Lymph nodes: No suspicious lymph node enlargement. Vasculature: Normal caliber abdominal aorta. Moderate atherosclerotic disease. Peritoneum / Retroperitoneum: No ascites or free air. Bones: Mild gynecomastia. Multilevel degenerative changes of the spine. CT/Abdomen/Pelvis without Cont IMPRESSION: Redemonstrated moderate-large hiatal hernia which contains a herniated short-se gment of the proximal duodenum, which is at risk for obstruction. Decreased distention of the stomach and herniated duodenal seg ment post enteric tube placement since prior exam. No other acute findings. Reading Location: [facility]
[2025-02-24 21:00] VITALS: BP 169/59; PULSE 60; RESP 16; O2SAT 97
[2025-02-24 21:50] VITALS: BP 189/63; PULSE 68; RESP 18; TEMP 36.8; O2SAT 99
== END 2025-02-24 22:26 | disposition short-term general hospital (02) ==
PROVIDERS: Emergency Provider Emergency Medicine; PCP Internal Medicine; Visit Provider Emergency Medicine
DX: K31.1 Adult hypertrophic pyloric stenosis (principal); G72.41 Inclusion body myositis [IBM]; R11.2 Nausea with vomiting, unspecified; R13.10 Dysphagia, unspecified; R10.9 Unspecified abdominal pain; I10 Essential (primary) hypertension; Z79.82 Long term (current) use of aspirin; Z79.899 Other long term (current) drug therapy
CPT/HCPCS: 71260; 74018; 74176; 74177; 80053; 85025; 96360; 96361; 99285; Q9967; A4216

== ENCOUNTER 2025-03-05 15:52 | Inpatient (IN) | payer MEDICARE, OTHER, SELFPAY ==
[2025-03-05 16:00] VITALS: BP 150/54; PULSE 50; RESP 10; TEMP 36.5; O2SAT 96; BMI 23.5; BMI 23.6
--- NOTE | 2025-03-05 18:12 | HP.PCM_ITS ---
[facility] - General General Date of Admission: 03/05/25 Date of Service: 02/26/25 Chief Complaint: Here for rehabilitation. HPI Narrative JEANIE LANDRY, is a 84 Male who presents with followin02/25/2025 Admit [facility]. Abdominal pain, nausea, vomiting for [address] abdomen/pelvis showed large hiatal hernia with gastric outlet obstruction. NG placed. Hiatal hernia contains stomach with short segment of duodenum. Hiatal hernia present since 2010. Gastric distention improved with NG placement. Patient declined surgical intervention. Consult GI for EGD, Gastropexy. 03/02/2025 No acute events overnight, passing flatus, no bowel movement. Tolerating 3 protein shakes brought in by his . Patient agreeable to PPN. Plan surgery 03/04/2025 for full repair of hiatal hernia. Cardiology preoperative stress test showed mild to moderate ischemia. Cardiology recommended medical management, minimize OR time. Lopressor, Lisinopril, Aspirin. PT/OT for Debility. 03/04/2025 Patient underwent robot assisted laparoscopic hiatal hernia repair. Patient did well postoperatively. 03/05/2025 Admit to TCU with debility, here for rehabilitation, strengthening, prior to discharge home with . [facility] Medical History (Updated 03/05/25 @ 18:[address] Rey Henao MD) History of non-Hodgkin's lymphoma Lichenification Lymphedema Inclusion body myositis Scarlet fever Cancer CYST EXCISION RIGHT BREAST Osteopenia Hypertension Anemia Home Medications ?Medication ?Instructions ?Recorded ?Last Taken ?Type Cholecalciferol (Vitamin D3) 2,000 units PO DAILY supp lement 07/31/16 Unknown History multivitamin with folic acid 400 1 tab PO DAILY supple ment 07/31/16 Unknown History mcg tablet (Thera) cyanocobalamin (vitamin B-12) 1,000 mcg sublingual JEREMY LY 12/04/17 Unknown History 1,000 mcg sublingual tablet supplement Nitric Oxide 420 mg PO DAILY supplement 0 12/04/18 Unknown History coenzyme Q10 50 mg chewable tablet 200 mg PO DAILY sup plement 12/04/18 Unknown History elderberry fruit 200 mg capsule 200 mg PO DAILY supple ment 12/17/22 Unknown History turmeric 400 mg capsule 400 mg PO DAILY supplement 0 12/17/22 Unknown History cetirizine 10 mg tablet (24Hour 10 mg PO DAILY allergi es 01/29/24 02/01/24 History Allergy) lisinopril 5 mg tablet 10 mg PO DAILY blood pressur e 01/29/24 02/01/24 History aspirin 81 mg chewable tablet 1 tab PO DAILY Heart Hea lth 03/05/25 Unknown History metoprolol tartrate 25 mg tablet 25 mg PO BID BP 03/05 Unknown History multivitamin (Daily Multi-Vitamin 1 tab PO DAILY Suppl ement 03/05/25 Unknown History tablet) oxycodone 5 mg tablet 5 mg PO 4X/DAY PRN PRN pain 03/05/25 Unknown History pantoprazole 40 mg tablet,delayed 40 mg PO BID GERD Unknown History release Allergy/AdvReac Type Severity Reaction Status Date / Time bacitracin (From Neosporin AdvReac Mild Itching Verified 02/24/25 17:08 ([id number])) neomycin (From Neosporin AdvReac Mild Itching Verified 02/24/25 17:08 ([id number])) polymyxin B (From Neosporin AdvReac Mild Itching Verified 02/24/25 17:08 ([id number])) adhesive tape AdvReac Unknown Verified 02/24/25 17:08 Family History Father Colon cancer Mother Gastric cancer Surgical History (Updated 03/05/25 @ 18:[address] Rey Henao MD) History of repair of hiatal hernia History of cataract extraction Social History (Updated 03/05/25 @ 18:[address] Rey Henao MD) household members: spouse Smoking Status: Never smoker alcohol intake: never substance use type: does not use ROS Constitutional Constitutional: Reports weakness; Denies chills, fever(s) or weight gain ENT HEENT: Denies headache(s), nasal congestion or nasal discharge Cardiovascular Cardiovascular: Denies chest pain or palpitations Respiratory/Chest Respiratory/Chest: Denies cough, excessive phlegm production or shortness of breath with exertion Gastrointestinal Gastrointestinal: Denies abdominal pain, nausea or vomiting Genitourinary Genitourinary: Denies dysuria Musculoskeletal Musculoskeletal: Denies joint pain or joint swelling Integumentary Integumentary: Denies rash or wounds Neurologic Neurologic: Denies focal weakness, numbness or tingling Psychiatric Psychiatric: Denies anxiety, auditory hallucinations, depression, homicidal ideation or suicidal ideation Vital Signs Vital Signs Vital Signs: 03/05/25 16:00 Temperature 97.7 F L Temperature Source Temporal Pulse Rate 50 L Respiratory Rate 10 L Blood Pressure 150/54 H Blood Pressure Mean 86 Blood Pressure Source Monitor Blood Pressure Position Semi-Fowlers Blood Pressure Location Right Arm Pulse Ox 96 Oxygen Delivery Method Room Air Weight Weight: 68.13 kg Body Mass Index (BMI) 23.6 Physical Exam Const alert General Appearance: cooperative HEENT normocephalic Eyes PERRL and EOMs intact bilaterally Neck supple, no JVD and no carotid bruits Resp normal respiratory effort, normal air movement and clear to auscultation bilaterally Cardio regular rate and regular rhythm GI normal to inspection, nondistended, normoactive bowel sounds, non-tender and non-distended GI Narrative: 6 band aids across upper abdomen, laparoscopic incision sites. Extremity normal capillary refill General Extremity: Negative for edema Skin no rashes or lesions noted General Skin Exam: no breakdown Psych affect normal Appearance: appropriate Assessment & Plan Assessment/Plan (1) Debility: (2) Abdominal pain: (3) N&V (nausea and vomiting): (4) Hiatal hernia: (5) Gastric outlet obstruction: (6) Gout: (7) Inclusion body myositis: (8) Essential (primary) hypertension: (9) Dysphagia: (10) History of non-Hodgkin's lymphoma: (11) Hypogonadism: (12) Vitamin D deficiency: PLAN: Plan 84 year old male with below past medical history hospitalized for abdominal pain, nausea/vomiting 2/2 gastric outlet obstruction 2/2 hiatal hernia, underwent robot assisted laparoscopic hiatal hernia repair 03/04/2025, admitted to TCU with debility, here for rehabilitation, strengthening, prior to discharge home with . * Debility - PT/OT. * Dysphagia - ST. * Pain - Tylenol 1000mg q6 prn pain (1-5), Oxycodone 5mg q4 prn pain (6-10). * Bowel - senna/colace 1 tablet bid prn. * Adult immunization - Administer pneumonia vaccine, covid vaccine, flu vaccine as appropriate. * DVT prophylaxis - Lovenox 40mg sc daily. * Coronary artery disease - Metoprolol 25mg bid, Lisinopril 10mg daily, Aspirin 81mg daily. * Vitamin D deficiency - D3 50mcg daily. * Nutrition - MVI 1 tablet daily. * GERD - Pantoprazole 40mg bid.
[2025-03-05 20:26] VITALS: PULSE 60
[2025-03-06 07:29] LABS: Hematocrit 34.0 % (40-54); Hemoglobin 11.4 g/dL (13.0-16.5); Immature Granulocytes Count 0.020 X10^3/uL (0.0-0.0); Mean Corp Hgb Conc 33.5 g/dL (32-36); Mean Corpuscular Volume 93.2 fL (80-94); Mean Platelet Vol. 10.9 fl (6.2-12.0); NRBC Flagged by Analyzer 0 % (0-5); Platelet Count 201 K/mm3 (150-450); RBC Distribution Width CV 12.4 % (11.6-14.6); RBC Distribution Width SD 42.7 fl (35.1-43.9); Red Blood Count 3.65 M/mm3 (4.6-6.2); White Blood Count 6.6 K/mm3 (4.4-11.0)
[2025-03-06 08:25] LABS: Anion Gap 6 (5-15); BUN 17 mg/dL (4-19); BUN/Creat Ratio 46.6 RATIO (10-20); Calcium,Total 8.7 mg/dL (7.6-11.0); Carbon Dioxide 27.5 mmol/L (21.0-32.0); Chloride 103 mmol/L (98-108); Estimated Creatinine Clearance 59.81 ml/min (50-250); Glucose 98 mg/dL (70-99); Potassium 4.2 mmol/L (3.3-5.1)
[2025-03-06 11:37] VITALS: BP 142/56; PULSE 54; RESP 17; TEMP 37; O2SAT 95
[2025-03-06 11:43] VITALS: PULSE 60
[2025-03-06] MEDS: Cholecalciferol (VIT D3) 25 MCG TABLET (1,000 UNITS) 50 MCG PO (11:43)
[2025-03-06] MEDS: 0.9% Saline Lock 10 ML Syringe IV ×2 (11:44→21:12)
[2025-03-06] MEDS: Tuberculin,Purif.prot.deriv. 50 TU/ML Vial 0.1 ML ID (13:09)
--- NOTE | 2025-03-06 13:56 | CASEMGMT ---
Social Work SW met with patient to complete initial assessment. Pt known to this worker from previous stay. at bedside and pt granted permission to remain for assessment. Verified contact. Discussed options for code status in length. Pt wishes to be DNR-CCA, no intubation. Nursing notified. SW educated to Medicare benefit and copay coverage. Pt's goal is to return home with . SW will continue to follow for DC planning. Tala Ruiz [employer] INVESTIGATOR VICE
--- NOTE | 2025-03-06 15:22 | PCM.PN.DRR ---
Documented by User: Jaret Whalen 03/06/25 15:35 TCU RX Drug Regimen Review Subjective/Objective Subjective/Objective Subjective: TCU admission note. 84 year old male with below past medical history hospitalized for abdominal pain, nausea/vomiting 2/2 gastric outlet obstruction 2/2 hiatal hernia, underwent robot assisted laparoscopic hiatal hernia repair 03/04/2025, admitted to TCU with debility, here for rehabilitation, strengthening, prior to discharge home with . Objective: Allergies bacitracin (From Neosporin ([id number])) Adverse Reaction (Mild, Verified 02/24/25 17:08) Itching neomycin (From Neosporin ([id number])) Adverse Reaction (Mild, Verified 02/24/25 17:08) Itching polymyxin B (From Neosporin ([id number])) Adverse Reaction (Mild, Verified 02/24/25 17:08) Itching adhesive tape Adverse Reaction (Verified 02/24/25 17:08) Unknown Current Medications Generic Name Dose Route Start Last Admin Trade Name Freq PRN Reason Stop Dose Admin Acetaminophen 1,000 mg 03/05/25 18:24 Acetaminophen 500 Mg Tablet PO Q6H PRN PRN Pain Score 1-5 Aspirin 81 mg 03/06/25 08:00 03/06/25 11:42 Aspirin 81 Mg Tab.Chew PO 81 mg BREAKFAST LISSETT Administration Cholecalciferol 50 mcg 03/06/25 10:00 03/06/25 11:43 Cholecalciferol (Vit D3) 25 Mcg Tablet (1,000 Units) PO 50 mcg DAILY LISSETT Administration Enoxaparin Sodium 40 mg 03/06/25 10:03/06/25 13:08 Enoxaparin 40 Mg/0.4 Ml Syringe SC 40 mg DAILY@0600 LISSETT Administration Lisinopril 10 mg 03/06/25 10:00 03/06/25 11:44 Lisinopril 10 Mg Tablet PO 10 mg DAILY LISSETT Administration Protocol Metoprolol Tartrate 25 mg 03/05/25 22:00 03/06/25 11:43 Metoprolol Tartrate 25 Mg Tablet PO 25 mg BID LISSETT Administration Protocol Multivitamins 1 tablet 03/06/25 08:00 03/06/25 11:42 Multivitamins,Therapeutic Tablet PO 1 tablet DAILYCM LISSETT Administration Nystatin 1 applic 03/05/25 22:00 03/06/25 13:09 Nystatin Powder 15gm Bottle TOPICAL 1 applic BID LISSETT Administration Protocol Oxycodone HCl 5 mg 03/05/25 18:24 Oxycodone 5 Mg Tablet PO Q4H PRN PRN Pain Score 6-10 or Pre PT/OT Pantoprazole Sodium 40 mg 03/06/25 06:00 03/06/25 05:26 Pantoprazole Sodium 40 Mg Tablet PO 40 mg 0600,1600 LISSETT Administration Senna/Docusate Sodium 1 tablet 03/05/25 18:24 Senna/Docusate Sodium 1 Tablet PO BID PRN Constipation Sodium Chloride 10 - 40 ml 03/05/25 16:47 03/06/25 11:44 0.9% Saline Lock 10 Ml Syringe IV 20 ml UD PRN Administration SALINE FLUSH Tuberculin PPD 0.1 ml 03/13/25 10:00 Tuberculin,Purif.Prot.Deriv. 50 Tu/Ml Vial ID 03/13/25 10:01 X1 ONE Problem List Vitamin D deficiency (Acute) Hypogonadism (Acute) History of non-Hodgkin's lymphoma (Acute) Dysphagia (Acute) Essential (primary) hypertension (Acute) Gout (Acute) Hiatal hernia (Acute) Debility (Acute) N&V (nausea and vomiting) (Acute) Inclusion body myositis (Acute) Vital Signs Temp Pulse Resp BP Pulse Ox O2 Del Method 98.6 F 60 17 142/56 H 95 Room Air 03/06/25 11:37 03/06/25 11:43 03/06/25 11:37 03/06/25 11:37 03/06/25 11:37 03/06/25 11:37 Oxygen Delivery Method Room Air Weight: 68.13 kg Body Mass Index (BMI) 23.6 Sodium 136 mmol/L (133-145) 03/06/25 07:03 Potassium 4.2 mmol/L (3.3-5.1) 03/06/25 07:03 Chloride 103 mmol/L (98-108) 03/06/25 07:03 Carbon Dioxide 27.5 mmol/L (21.0-32.0) 03/06/25 07:03 Anion Gap 6 (5-15) 03/06/25 07:03 BUN 17 mg/dL (4-19) 03/06/25 07:03 Creatinine 0.35 mg/dL (0.70-1.20) L 03/06/25 07:03 Est GFR (MDRD) Non-Af 110 (>60) 03/06/25 07:03 BUN/Creatinine Ratio 46.6 RATIO (10-20) H 03/06/25 07:03 Glucose 98 mg/dL (70-99) 03/06/25 07:03 Assessment/Plan: 1. Pain: acetaminophen 1000 mg PO Q6H PRN pain (1-5), oxycodone 5 mg PO Q4H PRIN pain (6-10). The patient has not required PRN doses of acetaminophen or oxycodone so far this admission. Please continue to monitor pain levels, for PRN medication administration, LFTs (AST/ALT = 22/13 U/L on 02/24/25), for constipation, respiratory depression, drowsiness/dizziness, and for syncope/ataxia/falls. 2. Bowel: senna/docusate 1 tablet PO BID PRN constipation. The patient has not required any PRN doses of senna/docusate so far this admission, and the patient's last bowel movement was on 03/05/25. Please continue to monitor for bowel movements, PRN medication usage, constipation and diarrhea. 3. DVT prophylaxis: enoxaparin 40 mg SC daily. Please continue to monitor for s/s of a DVT such as pain/erythema/edema in an extremity, for bleeding/excessive bruising, hemoglobin levels (Hgb = 11.4 g/dL on 03/06/25), and platelet counts (Plt = 201 K/mm3 on 03/06/25), and renal function (serum creatinine = 0.35 mg/dL with creatinine clearance ~ 60 mL/min on 03/06/25). 4. Coronary artery disease: metoprolol tartrate 25 mg PO BID, lisinopril 10 mg PO daily, aspirin 81 mg PO daily. Please continue to monitor for chest pain, shortness of breath, heart rates (recent range = 50-60 beats/min), blood pressures (recent range = 142-150/54-56 mmHg), for fatigue, renal function (serum creatinine = 0.35 mg/dL with creatinine clearance ~ 60 mL/min on 03/06/25), potassium levels (K = 4.2 mmol/L on 03/06/25), sodium levels (Na = 136 mmol/L on 03/06/25), for dry cough, angioedema, for bleeding/excessive bruising, hemoglobin levels (Hgb = 11.4 g/dL on 03/06/25), and platelet counts (Plt = 201 K/mm3 on 03/06/25), as well as for GI distress with aspirin administration. The patient's blood pressures have been very elevated the last 2 days, please consider increasing the patient's lisinopril to 20 mg daily. 5. GERD: pantoprazole 40 mg PO BID. Please continue to monitor for s/s of GERD, for diarrhea that could indicate clostridium difficile infection, and for s/s of bone resorption such as fractures. 6. Vitamin D deficiency: cholecalciferol 50 mcg PO daily. Please continue to monitor for s/s of vitamin D deficiency, and vitamin D levels (vitamin D = 51.4 ng/mL on 12/18/24). 7. Nutrition: multivitamin 1 tablet PO daily. Please continue to monitor nutritional status. 8. Tinea corporis: nystatin powder 1 application topically BID. Please continue to monitor for resolution of tinea corporis. Assessment/Plan for indications treated with psychotropic medications: NA Medical chart and medication regimen reviewed. The following medication irregularities or issues were identified: 1. Coronary artery disease: metoprolol tartrate 25 mg PO BID, lisinopril 10 mg PO daily, aspirin 81 mg PO daily. The patient's blood pressures have been very elevated the last 2 days, please consider increasing the patient's lisinopril to 20 mg daily. Date Date of Note: 03/06/25 Documented by User: Dr. Rey Henao MD 03/06/25 15:42 TCU RX Drug Regimen Review Provider Comments Provider responsibility Provider Comments to Recommendations by Pharmacy Agree
[2025-03-06 20:00] VITALS: PULSE 52; O2SAT 96
[2025-03-06 21:13] VITALS: BP 136/46; PULSE 49
[2025-03-06 21:19] VITALS: BP 136/46; PULSE 49; O2SAT 96
[2025-03-07 07:02] VITALS: PULSE 56; O2SAT 94
[2025-03-07 09:52] VITALS: BP 148/50; PULSE 65; RESP 16; TEMP 36.9; O2SAT 94
[2025-03-07 09:56] VITALS: PULSE 65
[2025-03-07] MEDS: Cholecalciferol (VIT D3) 25 MCG TABLET (1,000 UNITS) 50 MCG PO (09:56)
[2025-03-07] MEDS: 0.9% Saline Lock 10 ML Syringe IV (10:10)
--- NOTE | 2025-03-07 10:17 | NURSING ---
pt refusing to get up to chair via [facility] for meals. states he tried it before in past and does not like it d/t his myositis.
[2025-03-07 20:23] VITALS: BP 131/49; PULSE 60
[2025-03-08] MEDS: 0.9% Saline Lock 10 ML Syringe IV (05:48)
--- NOTE | 2025-03-08 06:00 | NURSING ---
Patient declines offers to turn and reposition, declines to elevate heels on pillow. Educated on importance of promoting and maintainig skin integrity by offloading pressure and turning and repositioning Q2H. Educated on risks for skin breakdown/wound development. A&Ox3. Continues to decline despite education, states My heels are fine and I only sleep on be back, I never roll on my sides. Patient states inability to turn and reposition is related to dx body inclusion body myositis. Patient encouraged to utilize call light at any time to T&R. Verbalized understanding. Confidential email sent to community service specialist and wound nurse inquiring if air mattress would be appropriate for patient to promote skin integrity
[2025-03-08 10:12] VITALS: BP 131/50; PULSE 58; RESP 16; TEMP 36.3; O2SAT 95
[2025-03-08] MEDS: Cholecalciferol (VIT D3) 25 MCG TABLET (1,000 UNITS) 50 MCG PO (10:17)
[2025-03-08 10:18] VITALS: PULSE 58
[2025-03-08 22:09] VITALS: PULSE 65; RESP 16; O2SAT 94
[2025-03-08 22:25] VITALS: BP 119/40; PULSE 65
--- NOTE | 2025-03-09 04:38 | NURSING ---
Medications noted to be on night stand. had apparently picked them up from [facility]. Medications placed in medication room in pharmacy bag. Request that take them home when she visits. Patient verbalized understanding.
[2025-03-09 04:54] VITALS: RESP 16
[2025-03-09 09:00] VITALS: BP 128/46; PULSE 57; RESP 16; TEMP 37.1; O2SAT 94
[2025-03-09] MEDS: Cholecalciferol (VIT D3) 25 MCG TABLET (1,000 UNITS) 50 MCG PO (09:13)
[2025-03-09 09:16] VITALS: BP 128/46; PULSE 57
--- NOTE | 2025-03-09 10:36 | NURSING ---
Offered covid vaccine, VIS provided. Resident declines.
--- NOTE | 2025-03-09 10:56 | MDS.RN ---
MDS entry tracker complete, pain assessed.
--- NOTE | 2025-03-09 11:08 | NURSING ---
Ordered low air loss mattress for bed from [facility], confirmation #[id number].
--- NOTE | 2025-03-09 15:08 | NURSING ---
Addendum entered by Alaina Rueda 03/11/25 13:37: Called again to follow-up, left . Original Note: Resident and adamant they don't' want to travel to [place] for surgical follow-up. Saying it doesn't make sense to them for him to go all that way for a 2 minute appointment. RN called and left with clinical staff to discuss doing virtual appt or moving back. Await return call.
[2025-03-09 21:50] VITALS: BP 121/44; PULSE 57
[2025-03-09 21:58] VITALS: BP 121/44; PULSE 57
[2025-03-09] MEDS: 0.9% Saline Lock 10 ML Syringe IV (21:58)
[2025-03-10 09:47] VITALS: BP 134/43; PULSE 62
[2025-03-10] MEDS: Cholecalciferol (VIT D3) 25 MCG TABLET (1,000 UNITS) 50 MCG PO (09:47)
[2025-03-10 16:00] VITALS: BP 134/43; PULSE 62; RESP 16; TEMP 36.8; O2SAT 96
[2025-03-10 20:00] VITALS: PULSE 62; RESP 16; O2SAT 97
[2025-03-10 21:52] VITALS: BP 136/40; PULSE 58; TEMP 36.9
[2025-03-10 21:55] VITALS: BP 136/40; PULSE 58
[2025-03-10] MEDS: 0.9% Saline Lock 10 ML Syringe IV (21:56)
[2025-03-11 06:45] VITALS: PULSE 60; O2SAT 97
[2025-03-11 09:44] VITALS: BP 121/47; PULSE 64; RESP 16; TEMP 36.2; O2SAT 96
[2025-03-11 09:46] VITALS: PULSE 64
[2025-03-11] MEDS: Cholecalciferol (VIT D3) 25 MCG TABLET (1,000 UNITS) 50 MCG PO (09:46)
--- NOTE | 2025-03-11 13:07 | CASEMGMT ---
Social Work IDT met with patient, and dtr for care plan meeting. Discussed patient's progress in PT/OT/SN/RDN. Educated to Medicare benefit. Provided pt/family with written communication of insurance process and copay coverage during stay. Pt is currently a [facility] lift. can care for pt at home outside of the [facility] lift. SW will continue to follow for DC planning. Tala Ruiz [employer] AND [employer]DS DIRECTOR
--- NOTE | 2025-03-11 15:31 | NURSING ---
Protective Service Specialist Note; Activity Asset: Evangelista is independent in his choice of daily activities. With his health he is not able to use his hands very well so he has his smartphone to do most his reading, tv and talking w/family. He welcomes the housekeeping manager, prefers not to have pet visits and family will bring him items he may need from home.
[2025-03-11] MEDS: 0.9% Saline Lock 10 ML Syringe IV (16:38)
[2025-03-11 21:56] VITALS: BP 139/40; PULSE 65
[2025-03-12] MEDS: 0.9% Saline Lock 10 ML Syringe IV ×2 (05:29→09:42)
[2025-03-12 09:13] VITALS: BP 101/44; PULSE 62; RESP 16; TEMP 37.2; O2SAT 95
[2025-03-12] MEDS: Cholecalciferol (VIT D3) 25 MCG TABLET (1,000 UNITS) 50 MCG PO (09:17)
[2025-03-12 09:18] VITALS: PULSE 62
[2025-03-12 10:55] VITALS: PULSE 62; RESP 17; O2SAT 95
--- NOTE | 2025-03-12 20:26 | NURSING ---
Declines T&R and declines to float heels despite education regarding importance of T&R and offloading pressure to maintain/promote skin integrity
[2025-03-12 20:27] VITALS: BP 124/50; PULSE 63
[2025-03-13] MEDS: 0.9% Saline Lock 10 ML Syringe IV ×3 (05:44→21:34)
[2025-03-13 07:33] LABS: Hematocrit 33.6 % (40-54); Hemoglobin 11.6 g/dL (13.0-16.5); Immature Granulocytes Count 0.030 X10^3/uL (0.0-0.0); Mean Corp Hgb Conc 34.5 g/dL (32-36); Mean Corpuscular Volume 92.1 fL (80-94); Mean Platelet Vol. 10.4 fl (6.2-12.0); NRBC Flagged by Analyzer 0 % (0-5); Platelet Count 240 K/mm3 (150-450); RBC Distribution Width CV 12.7 % (11.6-14.6); RBC Distribution Width SD 43.3 fl (35.1-43.9); Red Blood Count 3.65 M/mm3 (4.6-6.2); White Blood Count 9.5 K/mm3 (4.4-11.0)
[2025-03-13 08:40] LABS: Anion Gap 9 (5-15); BUN 16 mg/dL (4-19); BUN/Creat Ratio 43.2 RATIO (10-20); Calcium,Total 8.6 mg/dL (7.6-11.0); Carbon Dioxide 23.0 mmol/L (21.0-32.0); Chloride 101 mmol/L (98-108); Estimated Creatinine Clearance 59.81 ml/min (50-250); Glucose 129 mg/dL (70-99); Potassium 4.2 mmol/L (3.3-5.1)
[2025-03-13 09:21] VITALS: BP 120/47; PULSE 66; RESP 15; TEMP 37.3; O2SAT 95
[2025-03-13 09:27] VITALS: PULSE 66
[2025-03-13] MEDS: Cholecalciferol (VIT D3) 25 MCG TABLET (1,000 UNITS) 50 MCG PO (09:27)
[2025-03-13] MEDS: Tuberculin,Purif.prot.deriv. 50 TU/ML Vial 0.1 ML ID (09:27)
--- NOTE | 2025-03-13 09:54 | NURSING ---
Bunghole Borer Note; MDS for 03/12/2025 Complete
[2025-03-13 20:00] VITALS: PULSE 68; O2SAT 96
[2025-03-13 21:29] VITALS: BP 117/46; PULSE 68
[2025-03-13 21:35] VITALS: BP 117/46; PULSE 68
[2025-03-14 03:47] VITALS: PULSE 72; O2SAT 95
[2025-03-14 09:00] VITALS: BP 115/40; PULSE 68; RESP 16; TEMP 37.2; O2SAT 98
[2025-03-14 09:02] VITALS: PULSE 68
[2025-03-14] MEDS: Cholecalciferol (VIT D3) 25 MCG TABLET (1,000 UNITS) 50 MCG PO (09:02)
--- NOTE | 2025-03-14 14:29 | NURSING ---
Addendum entered by Rayne Rivera 03/14/25 18:53: Bladder scan before supper shows 347mL. Denies bladder pain and discomfort. Attempted scan after supper, pt refuses stating that he wants to finish his hot chocolate, then attempt to use urinal again I really don't want to have the catheter put in. Pt states he will put his call light on when finished with supper. Original Note: ~1200 staff notifies that pt reports not being able to urinate today. Pt denies bladder/abdominal pain and pressure. Bladder scan shows 537mL. Pt adamantly refusing straight cath despite education. Pt agrees to attempt using urinal again after lunch and straight cath if still unable. Pt voided 300mL in urinal after lunch, Denies bladder pain and pressure.
--- NOTE | 2025-03-14 20:43 | NURSING ---
Patient having difficulty voiding, bladder scanned for 631cc, straight cathed for 600cc, clear be urine returned, patient tolerated well, encouraged increased fluid intake.
[2025-03-14 21:52] VITALS: BP 145/47; PULSE 74
[2025-03-14 21:57] VITALS: BP 145/47; PULSE 74
[2025-03-14] MEDS: 0.9% Saline Lock 10 ML Syringe IV (21:58)
[2025-03-15 06:41] VITALS: PULSE 76; O2SAT 94
[2025-03-15 10:41] VITALS: PULSE 74
[2025-03-15] MEDS: Cholecalciferol (VIT D3) 25 MCG TABLET (1,000 UNITS) 50 MCG PO (10:41)
[2025-03-15 16:00] VITALS: BP 150/47; PULSE 68; RESP 16; TEMP 37.6; O2SAT 98
[2025-03-15 21:26] VITALS: BP 144/54; PULSE 83; O2SAT 95
[2025-03-15 21:36] VITALS: BP 144/54; PULSE 83
[2025-03-15] MEDS: 0.9% Saline Lock 10 ML Syringe IV (21:38)
[2025-03-16 10:48] VITALS: BP 140/41; PULSE 69; RESP 16; TEMP 37.2; O2SAT 96
[2025-03-16 10:51] VITALS: PULSE 69
[2025-03-16] MEDS: Cholecalciferol (VIT D3) 25 MCG TABLET (1,000 UNITS) 50 MCG PO (10:51)
[2025-03-16] MEDS: 0.9% Saline Lock 10 ML Syringe IV (11:02)
[2025-03-16 20:00] VITALS: PULSE 87; RESP 16; O2SAT 96
[2025-03-16 20:20] VITALS: BP 143/56; PULSE 87
[2025-03-17 02:00] VITALS: PULSE 80; RESP 18; O2SAT 94
--- NOTE | 2025-03-17 07:42 | MDS.RN ---
Information for the MDS was obtained from review of the clinical record, interview of resident, staff, and direct observation of resident?s care.
[2025-03-17 08:28] VITALS: BP 116/40; PULSE 76; RESP 16; TEMP 37.6; O2SAT 95
[2025-03-17] MEDS: Cholecalciferol (VIT D3) 25 MCG TABLET (1,000 UNITS) 50 MCG PO (08:39)
[2025-03-17 08:56] LABS: Mucous, Urine 0 SEEN /hpf (<or=2+); Red Blood Cells-Urine 0 SEEN /hpf (0-5); Squamous Epithelial Cells - UA 0 SEEN /hpf (0-5)
[2025-03-17 08:58] LABS: Color, Urine Yellow (Yellow); Glucose, Dipstick Normal (Normal); Leukocyte Esterase-Dipstick 500 /ul (Negative); Nitrite-Dipstick Negative (Negative); Occult Blood-Urine 50 /ul (Negative); Protein-Dipstick 30 mg/dl (Negative); Specific Gravity, Urine 1.020 (1.002-1.030)
[2025-03-17 09:00] LABS: Urine Bilirubin Dipstick 1 mg/dL (Negative)
[2025-03-17 09:01] LABS: Ketone-Dipstick 150 mg/dl (Negative)
--- NOTE | 2025-03-17 09:24 | NURSING ---
Addendum entered by Evonne Sheridan 03/17/25 15:20: roberto alicia called- encourgae fluids for ketones- also order for cipro given Original Note: notified dr vargas via text urine keytones 150
[2025-03-17 11:54] VITALS: BP 107/40; PULSE 72
[2025-03-17 12:03] VITALS: PULSE 72
[2025-03-17 21:03] VITALS: BP 101/42; PULSE 74
[2025-03-17] MEDS: 0.9% Saline Lock 10 ML Syringe IV (21:07)
[2025-03-17 21:08] VITALS: BP 101/42; PULSE 74
[2025-03-18 09:31] VITALS: PULSE 81
[2025-03-18] MEDS: Cholecalciferol (VIT D3) 25 MCG TABLET (1,000 UNITS) 50 MCG PO (09:31)
[2025-03-18 10:00] VITALS: BP 151/43; PULSE 86; RESP 18; TEMP 37; O2SAT 93
[2025-03-18 21:00] VITALS: BP 128/44; PULSE 74
[2025-03-18 21:05] VITALS: BP 128/44; PULSE 74
[2025-03-18] MEDS: 0.9% Saline Lock 10 ML Syringe IV (21:06)
[2025-03-19 00:21] VITALS: PULSE 80; O2SAT 94
[2025-03-19 09:14] VITALS: PULSE 69
[2025-03-19] MEDS: Cholecalciferol (VIT D3) 25 MCG TABLET (1,000 UNITS) 50 MCG PO (09:14)
[2025-03-19 09:31] VITALS: BP 130/56; PULSE 92; RESP 16; TEMP 37.1; O2SAT 95
[2025-03-19] MEDS: 0.9% Saline Lock 10 ML Syringe IV (15:42)
[2025-03-19 20:13] VITALS: BP 101/48; PULSE 66
[2025-03-20 08:09] LABS: Hematocrit 35.0 % (40-54); Hemoglobin 11.9 g/dL (13.0-16.5); Immature Granulocytes Count 0.020 X10^3/uL (0.0-0.0); Mean Corp Hgb Conc 34.0 g/dL (32-36); Mean Corpuscular Volume 90.9 fL (80-94); Mean Platelet Vol. 10.5 fl (6.2-12.0); NRBC Flagged by Analyzer 0 % (0-5); Platelet Count 234 K/mm3 (150-450); RBC Distribution Width CV 12.8 % (11.6-14.6); RBC Distribution Width SD 42.0 fl (35.1-43.9); Red Blood Count 3.85 M/mm3 (4.6-6.2); White Blood Count 5.0 K/mm3 (4.4-11.0)
[2025-03-20 08:55] LABS: Anion Gap 8 (5-15); BUN 12 mg/dL (4-19); BUN/Creat Ratio 37.8 RATIO (10-20); Calcium,Total 8.8 mg/dL (7.6-11.0); Carbon Dioxide 26.2 mmol/L (21.0-32.0); Chloride 100 mmol/L (98-108); Estimated Creatinine Clearance 59.81 ml/min (50-250); Glucose 142 mg/dL (70-99); Potassium 3.7 mmol/L (3.3-5.1)
[2025-03-20 09:38] VITALS: BP 156/51; PULSE 77; RESP 16; TEMP 37.2; O2SAT 96
[2025-03-20 09:40] VITALS: PULSE 77
[2025-03-20] MEDS: Cholecalciferol (VIT D3) 25 MCG TABLET (1,000 UNITS) 50 MCG PO (09:40)
[2025-03-20] MEDS: 0.9% Saline Lock 10 ML Syringe IV ×2 (09:45→21:35)
[2025-03-20 21:17] VITALS: BP 106/42; PULSE 70; O2SAT 96
[2025-03-20 21:20] VITALS: PULSE 70
[2025-03-21 10:13] VITALS: BP 109/46; PULSE 67; RESP 16; TEMP 37.1; O2SAT 97
[2025-03-21 10:20] VITALS: PULSE 67
[2025-03-21] MEDS: Cholecalciferol (VIT D3) 25 MCG TABLET (1,000 UNITS) 50 MCG PO (10:20)
[2025-03-21 21:35] VITALS: PULSE 68; O2SAT 98
[2025-03-21 21:51] VITALS: BP 107/44; PULSE 67
[2025-03-21 21:53] VITALS: PULSE 67
[2025-03-21] MEDS: 0.9% Saline Lock 10 ML Syringe IV (21:54)
[2025-03-22 10:05] VITALS: BP 124/49; PULSE 63; RESP 17; TEMP 36.9; O2SAT 95
[2025-03-22 10:07] VITALS: PULSE 63
[2025-03-22] MEDS: Cholecalciferol (VIT D3) 25 MCG TABLET (1,000 UNITS) 50 MCG PO (10:07)
[2025-03-22 20:37] VITALS: PULSE 65; O2SAT 96
[2025-03-22 20:51] VITALS: BP 136/51; PULSE 70
[2025-03-22 20:54] VITALS: PULSE 70
--- NOTE | 2025-03-23 08:50 | NURSING ---
pt is very down and depressed this morning- pt would like to speak to someone about care- does not want to do therapy anymore- says its torturing his body, and for what? this nurse will notify social insurance specialist pt would like to speak to her
[2025-03-23 08:52] VITALS: BP 132/54; PULSE 68; RESP 17; TEMP 37.1
[2025-03-23 08:55] VITALS: PULSE 68
[2025-03-23] MEDS: Cholecalciferol (VIT D3) 25 MCG TABLET (1,000 UNITS) 50 MCG PO (08:55)
--- NOTE | 2025-03-23 15:51 | CASEMGMT ---
Social Work Nursing notified this worker that pt was depressed today, making comments of not wanting to continue with therapy, and pt did refuse therapy today. The spoke with the charge nurse and expressed her feelings, which do not align with patient's. - SW presented to room and was present. Pt agreed to speak with this worker. SW inquired how pt was doing and explored denial for therapy today. SW provided ongoing active listening. Pt ultimately shared that he understands he has poor prognosis and states rehab is a waste of time. Pt shared he is just trying to exist right now. SW explored further and challenged those feelings with the goal to know if these are acute or chronic feelings. Pt was clear with his reasonings. Pt stated he has been feeling like this since shortly after admission; this is not a new feeling. SW inquired if he was wanting hospice services. Pt stated, I don't think I'm there yet. What do you think?. SW educated that hospice does not mean end-of-life, the services align with wishes of someone no longer electing life sustaining measures or curative treatment, to have pain and symptom management, that can provide care for years. Pt replied, oh, well that does sound pretty close to what I'm wanting. SW agreed. SW offered to schedule a nurse to meet with pt/ to explain services further. Pt requested literature to review first. SW agreed. Pt expressed much gratitude for pt's time and understanding throughout conversation. Pt kept asking, Do I make sense?, in which SW confirmed. SW assured pt this worker will support pt in whichever path he chooses to pursue. SW inquired further about next steps, since when pt no longer elects rehab services, TCU does not align with pt's goals of care, and pt would DC. Discussed home vs SNF. Pt would prefer to DC home but noted he was able to stand from the lift chair and walk 15 steps to the bathroom and back, which he cannot currently do. Pt stated he is not certain he has the confidence to go home. SW included in conversation. expressed she too, is concerned about the logistics of pt being home and not being able to complete his baseline tasks. stated he will be bed bound, and without him continuing therapy to try to get better, she cannot assist pt 27/11 care, that they would have to hire people to come into the home, which she is also not sure she is comfortable with. SW also interpreted that is not agreeing ot pt's election to not continue with therapy. SW advocated for pt to remain autonomous in his decisions. SW encouraged pt and to have further discussions on plans, and process information before making a decision. SW will return with resources for pt/. Both appreciative. - SW returned with several brochures and literature from hospice agencies, information on skilled vs nonskilled HHC, palliative vs hospice, list of private duty MIXING PLANT DUMPER, and a list of SNFs in preferred geographical area, INN with pt?s insurance, including quality and resource data via CarePort Guide. SW will continue to follow. Tala OWENSW
--- NOTE | 2025-03-23 18:47 | NURSING ---
pt seems to get confused in the evening- pt states there were previously two girls in the room that started to clean him up but left before cleaning him up and never came back. This nurse reminded pt that this nurse and CUSTOMER ACCOUNT ADMINISTRATOR Melinda cleaned pt up before dinner. Pt was at bedside and was present when pt was cleaned up. Pt confirmed pt was already cleaned up
[2025-03-23 21:11] VITALS: BP 135/56; PULSE 77
[2025-03-23 21:18] VITALS: BP 135/56; PULSE 77
[2025-03-23 22:00] VITALS: PULSE 80; O2SAT 95
[2025-03-24 06:27] VITALS: PULSE 68; O2SAT 94
[2025-03-24 09:14] VITALS: BP 129/52; PULSE 65; RESP 17; TEMP 36.6; O2SAT 96
[2025-03-24 09:23] VITALS: PULSE 65
[2025-03-24] MEDS: Cholecalciferol (VIT D3) 25 MCG TABLET (1,000 UNITS) 50 MCG PO (09:23)
[2025-03-24 14:17] VITALS: BMI 21.9
[2025-03-24 20:38] VITALS: BP 134/58; PULSE 68
--- NOTE | 2025-03-25 02:15 | NURSING ---
Presents in bed. Continued education regarding importance of T&R to maintain/promote skin integrity, patient accepts T&R at this time, bilat heels floating on pillows, requests to lay on left side. Patient expresses thanks, denies requests. States comfortable at this time. Call light and personal items within reach, air mattress in place and functioning properly.
[2025-03-25 09:55] VITALS: PULSE 61
[2025-03-25] MEDS: Cholecalciferol (VIT D3) 25 MCG TABLET (1,000 UNITS) 50 MCG PO (09:55)
[2025-03-25 10:02] VITALS: BP 129/53; PULSE 61; RESP 18; TEMP 36.7; O2SAT 94
--- NOTE | 2025-03-25 10:06 | CASEMGMT ---
Addendum entered by Tala Ruiz 03/25/25 13:42: LIBIA sent email referral to Gildardo at [facility] as there may be upcoming availability. Original Note: Social Work LIBIA spoke with pt to follow up on conversation. Pt stated he is unsure he is ready for hospice, but is planning on touring [place] this date. Assured this worker pt and are discussing. SW explained Medicare eligibility for ongoing TCU coverage and how refusing therapy and not electing hospice is going to impact coverage. Thus, planning for a DC date, is the goal. Pt expressed understanding. LIBIA educated that [facility] likely does not have availability d/t to knowledge from a previously made referral and with pt's LOC, they may not accept without election of hospice services. Explained LTC may be more appropriate, especially without election of hospice. LIBIA offered to contact to update prior to touring [facility]. Pt agreed. LIBIA will continue to follow. - LIBIA left VM with Gildardo at [facility] inquiring about availability and updating on possibly touring. - LIBIA phone to update on above. does have a tour scheduled for 1330 but expressed understanding. SW to update if Gildardo contacts this worker prior. stated she is not sure where to get that type of care. SW referenced the SNF list LIBIA provided on Sunday. expressed understanding. LIBIA explained pt will DC once plan is established soon. LIBIA will continue to follow. Tala Ruiz MSW RESIDENCE LIFE DIRECTOR
--- NOTE | 2025-03-25 12:11 | NURSING ---
told this nurse originally refused flu vaccine as he thought he would get with his PCP, they decided they want him to receive while here. Order entered.
[2025-03-25] MEDS: FLU VACCINE HIGH DOSE 25-26(65YR UP) 180 MCG/0.5 ML SYRINGE IM (13:25)
[2025-03-25 20:56] VITALS: BP 114/62; PULSE 71
[2025-03-26 09:39] VITALS: BP 129/49; PULSE 62; RESP 16; TEMP 36.9; O2SAT 96
[2025-03-26 09:41] VITALS: PULSE 62
[2025-03-26] MEDS: Cholecalciferol (VIT D3) 25 MCG TABLET (1,000 UNITS) 50 MCG PO (09:41)
--- NOTE | 2025-03-26 13:09 | MDS.RN ---
Information for the MDS was obtained from review of the clinical record, interview of resident, staff, and direct observation of resident?s care.
--- NOTE | 2025-03-26 14:00 | CASEMGMT ---
Social Work [facility] denied pt for being too medically complex. Gildardo from [facility] updated Jeni. - SW phoned to follow up and inquire about SNF preferences. understanding and unsure about preferences but stated it needs to be local. SW offered to refer to all [place] SNFs and provide /pt with acceptances. agreed and appreciative. LIBIA explained [facility] does not have availability as known from another referral made this date and [facility] has semi-private rooms. denied that option. LIBIA sent referrals via [facility]Port to [facility] and [facility]. Tala Ruiz MSW SKEIN STRAIGHTENER
[2025-03-26 20:00] VITALS: PULSE 70; O2SAT 98
[2025-03-26 20:56] VITALS: BP 133/49; PULSE 67; O2SAT 98
[2025-03-26 21:00] VITALS: BP 133/49; PULSE 67
[2025-03-27 02:27] VITALS: PULSE 72; O2SAT 96
[2025-03-27 06:08] LABS: Hematocrit 33.9 % (40-54); Hemoglobin 12.0 g/dL (13.0-16.5); Immature Granulocytes Count 0.020 X10^3/uL (0.0-0.0); Mean Corp Hgb Conc 35.4 g/dL (32-36); Mean Corpuscular Volume 90.9 fL (80-94); Mean Platelet Vol. 10.2 fl (6.2-12.0); NRBC Flagged by Analyzer 0 % (0-5); Platelet Count 212 K/mm3 (150-450); RBC Distribution Width CV 13.3 % (11.6-14.6); RBC Distribution Width SD 44.0 fl (35.1-43.9); Red Blood Count 3.73 M/mm3 (4.6-6.2); White Blood Count 6.8 K/mm3 (4.4-11.0)
[2025-03-27 06:52] LABS: Anion Gap 8 (5-15); BUN 15 mg/dL (4-19); BUN/Creat Ratio 35.3 RATIO (10-20); Calcium,Total 8.8 mg/dL (7.6-11.0); Carbon Dioxide 25.0 mmol/L (21.0-32.0); Chloride 99 mmol/L (98-108); Estimated Creatinine Clearance 59.36 ml/min (50-250); Glucose 114 mg/dL (70-99); Potassium 4.3 mmol/L (3.3-5.1)
[2025-03-27 09:54] VITALS: PULSE 62
[2025-03-27] MEDS: Cholecalciferol (VIT D3) 25 MCG TABLET (1,000 UNITS) 50 MCG PO (09:54)
[2025-03-27 10:00] VITALS: BP 128/46; PULSE 62; RESP 16; O2SAT 94
--- NOTE | 2025-03-27 10:06 | CASEMGMT ---
Addendum entered by Tala Ruiz 03/27/25 16:26: [facility] transport scheduled through [facility] for 1100. [facility] is in process from admitting hospital [facility]. SW has left two messages and two VMs with that CM. SW will continue to monitor. SW phoned to update on DC date and transport time. appreciative. Addendum entered by Tala Ruiz 03/27/25 16:17: phoned this worker that she toured [facility] first and would like pt placed there. SW to coordinate DC date with [facility], Admissions. is agreeable to any date. SW phoned [facility] and agreed to DC 03/30, intermediate. SW to speak with pt if he wants part B therapies. - SW spoke with pt at bedside. Updated that [facility] can accept with DC 03/30. Inquired about stopping therapy altogether or having part B therapies 2-3x/wk. pt opted for part B therapies to start. SW informed pt he can elect to stop therapies at any time. Pt appreciative of assistance. IDT updated. Plan: DC 03/30 to [facility], intermediate, part B therapies Addendum entered by Tala Ruiz 03/27/25 13:28: SW phoned with update that [facility] now has a bed and can accept. [facility] can accept but only has a semi private room available currently, until late next week when pt could transfer to the private room. appreciative of the update and plans to tour the SNFs ,then provide their decision. SW will continue to follow. Original Note: Social Work SW phoned to update that [facility] cannot accept but [facility] can. SW acknowledged [facility] was missed in the referral as that is also located in [place]. SW offered to make that referral. stated she spoke with the pt and the pt prefers to go to a facility with better care than location and requested a referral to [facility]. SW agreed and sent via [facility]. appreciative. Tala Ruiz SURPLUS PROPERTY DISPOSAL AGENT VEHICLE DELIVERY WORKER
--- NOTE | 2025-03-27 16:22 | DS.PCM_ITS ---
Providers Date of Admission: 03/05/25 Primary Care Physician: Dr. Taylor Zuniga DO Reason For Visit: GASTRIC OUTLET OBSTRUCTION/ PARAESOPHAGEAL HERNIA Diagnosis Discharge Diagnosis (1) Debility: Status: Acute Code(s): R53.81 - Other malaise (2) Abdominal pain: Status: Inactive Code(s): R10.9 - Unspecified abdominal pain (3) N&V (nausea and vomiting): Status: Acute Code(s): R11.2 - Nausea with vomiting, unspecified (4) Hiatal hernia: Status: Acute Code(s): K44.9 - Diaphragmatic hernia without obstruction or gangrene (5) Gastric outlet obstruction: Status: Inactive Code(s): K31.1 - Adult hypertrophic pyloric stenosis (6) Gout: Status: Acute Code(s): M10.9 - Gout, unspecified (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] (8) Essential (primary) hypertension: Status: Acute Code(s): I10 - Essential (primary) hypertension (9) Dysphagia: Status: Acute Code(s): R13.10 - Dysphagia, unspecified (10) History of non-Hodgkin's lymphoma: Status: Acute Code(s): Z85.72 - Personal history of non-Hodgkin lymphomas (11) Hypogonadism: Status: Acute (12) Vitamin D deficiency: Status: Acute Code(s): E55.9 - Vitamin D deficiency, unspecified Plan 84 year old male with below past medical history hospitalized for abdominal pain, nausea/vomiting 2/2 gastric outlet obstruction 2/2 hiatal hernia, underwent robot assisted laparoscopic hiatal hernia repair 03/04/2025, admitted to TCU with debility, here for rehabilitation, strengthening, prior to discharge home with . * Debility - PT/OT. * Dysphagia - ST. * Pain - Tylenol 1000mg q6 prn pain (1-5), Oxycodone 5mg q4 prn pain (6-10). * Bowel - senna/colace 1 tablet bid prn. * Adult immunization - Administer pneumonia vaccine, covid vaccine, flu vaccine as appropriate. * DVT prophylaxis - Lovenox 40mg sc daily. * Coronary artery disease - Metoprolol 25mg bid, Lisinopril 10mg daily, Aspirin 81mg daily. * Vitamin D deficiency - D3 50mcg daily. * Nutrition - MVI 1 tablet daily. * GERD - Pantoprazole 40mg bid. Medications at Discharge Home Medications Cholecalciferol (Vitamin D3) 2,000 units PO DAILY supplement 07/31/16 aspirin 81 mg chewable tablet 1 tab PO DAILY Heart Health 03/05/25 metoprolol tartrate 25 mg tablet 25 mg PO BID BP 03/05/25 multivitamin (Daily Multi-Vitamin tablet) 1 tab PO DAILY Supplement 03/05/25 oxycodone 5 mg tablet 5 mg PO 4X/DAY PRN PRN pain 03/05/25 pantoprazole 40 mg tablet,delayed release 40 mg PO BID GERD 03/05/25 acetaminophen 500 mg tablet 1,000 mg (2 x 500 mg) PO Q6H PRN PRN Pain Score 1-5 #0 tabs 03/27/25 lisinopril 20 mg tablet 20 mg PO DAILY #0 tabs 03/27/25 menthol 0.44 %-zinc oxide 20.6 % topical ointment (Calmoseptine) 1 applic topical BID #0 grams 03/27/25 mirtazapine 15 mg tablet 7.5 mg (1/2 x 15 mg) PO QHS #0 tabs 03/27/25 nystatin 100,000 unit/gram topical powder 1 applic topical BID #0 grams 03/27/25 sennosides 8.6 mg-docusate sodium 50 mg tablet (Stimulant Laxative Plus) 1 tab PO BID PRN Constipation #0 tabs 03/27/25 Hospital Course Operations - (See below) Procedures None Summary of Care Provided Minutes Spent on Discharge: 35 Hospital Course: 84 year old male with below past medical history hospitalized for abdominal pain, nausea/vomiting 2/2 gastric outlet obstruction 2/2 hiatal hernia, underwent robot assisted laparoscopic hiatal hernia repair 03/04/2025, admitted to TCU with debility, here for rehabilitation, strengthening, prior to discharge home with . Discharge to [facility] 03/30/2025, intermediate, part B therapies. Physical Exam Const alert General Appearance: cooperative HEENT normocephalic Eyes PERRL and EOMs intact bilaterally Neck supple, no JVD and no carotid bruits Resp normal respiratory effort, normal air movement and clear to auscultation bilaterally Cardio regular rate and regular rhythm GI normal to inspection, nondistended, normoactive bowel sounds, non-tender and non-distended GI Narrative: 6 band aids across upper abdomen, laparoscopic incision sites. Extremity normal capillary refill General Extremity: Negative for edema Skin no rashes or lesions noted General Skin Exam: no breakdown Psych affect normal Appearance: appropriate Medical Records Data Medical Nutrition Assessment Dietitian: Malnutrition Criteria Met Start: 03/25/25 11:45 Freq: Status: Active Protocol: Document 03/25/25 11:45 SLA (Rec: 03/25/25 11:45 SLA [id number]) Nutrition Malnutrition Evidence of Yes Malnutrition Exists Malnutrition (severe Acute Illness/Injury ): Evidenced By Suboptimal Energy Intake (Severe),Weight Loss (Severe), Physical Changes (Severe) Intake Problem Inadequate Oral Intake Status Inactive Problem Clinical Problem Acute Disease or Injury Related Malnutrition Etiology related to recent surgery and inadequate energy intake Signs/Symptoms as evidenced by po intake meeting <50% of est nutritional needs, 7.1% unintentional wt loss since adm and fat loss/muscle wasting throughout body. Status Active Problem Biting/Chewing Difficulty Etiology swallowing r/t hx of dysphagia Signs/Symptoms as evidenced by need for modified consistency diet Status Active Problem Recommendation Dietitian Continue liberal regular w/ fortified foods as able - Recommendations/ consistency per INSTALLER INTERIOR ASSEMBLIES Changes Continue to have bring premier protein from home and foods that res requests as able Will provide extra gravies/sauces at meals to help moisten food per res request. Rec consider appetite stimulant to help increase po intake Consider supplemental nutritional support if in accordance w/ res/family wishes to help prevent additional wt loss and decline in nutritional status. Weight / BMI Weight Weight: 63.321 kg Body Mass Index (BMI) 21.9 ABG / Lab / Microbiology Data 03/27/25 05:29 03/27/25 05:29 Laboratory: Laboratory Results - last 24 hr 03/27/25 05:29: WBC 6.8, RBC 3.73 L, Hgb 12.0 L, Hct 33.9 L, MCV 90.9, MCH 32.2 H, MCHC 35.4, RDW Std Deviation 44.0 H, RDW Coeff of Nils 13.3, Plt Count 212, MPV 10.2, Immature Gran % (Auto) 0.300, Neut % (Auto) 49.4, Lymph % (Auto) 29.5, Wallace % (Auto) 14.2 H, Eos % (Auto) 6.2 H, Baso % (Auto) 0.4, Absolute Neuts (auto) 3.4, Absolute Lymphs (auto) 2.00, Nucleated RBC % 0, Sodium 132 L, Potassium 4.3, Chloride 99, Carbon Dioxide 25.0, Anion Gap 8, BUN 15, Creatinine 0.42 L, Estim Creat Clear Calc 59.36, Est GFR (MDRD) Non-Af 105, BUN/Creatinine Ratio 35.3 H, Glucose 114 H, Calcium 8.8 Microbiology: Microbiology 03/17/25 08:35 Urine Catheter - [facility] Urine Culture - Final Escherichia coli D/C Instructions Discharge Activity: Return to Normal Activity, May Shower and Use Walker Weight Bearing Status: Weight bearing as tolerated Call your doctor if you observe: Fever of 101 or Higher, Inability to urinate, Inability to have a bowel movement, Shortness of breath, Dizziness, Fainting spells, Swelling in the ankles, Chest pain and Uncontrolled pain DC O2, CPAP, BIPAP Needs Home O2 Discharge instructions: No Additional Instructions: Discharge to [facility] 03/30/2025, intermediate, part B therapies. Please Follow Up With: Krista Marques MD (general surgery) When: As scheduled. Meaningful Use Info Meaningful Use Meaningful Use Diagnoses (Choose all that apply): None applicable Discharge Plan Admission Admit Date/Time: 03/05/25 15:52 Primary Reason for Your Visit: Debility. Attending Provider: Rey Henao Chi Primary Care Provider: Taylor Zuniga Instructions Additional Instructions / Restrictions: Discharge to [facility] 03/30/2025, intermediate, part B therapies. Discharge Orders/Prescriptions Prescriptions: New acetaminophen 500 mg Tablet 1,000 mg PO Q6H PRN PRN (Reason: Pain Score 1-5) Qty: 0 0RF lisinopril 20 mg Tablet 20 mg PO DAILY Qty: 0 0RF menthol-zinc oxide [Calmoseptine] 0.44-20.6 % Ointment 1 applic topical BID Qty: 0 0RF Protocol: *Topical Application Instructions APPLICATION INSTRUCTIONS: Coccyx, bilateral buttocks sennosides-docusate sodium [Stimulant Laxative Plus] 8.6-50 mg Tablet 1 tab PO BID PRN (Reason: Constipation) Qty: 0 0RF mirtazapine 15 mg Tablet 7.5 mg PO QHS Qty: 0 0RF nystatin 100,000 unit/gram Powder 1 applic topical BID Qty: 0 0RF Protocol: *Topical Application Instructions APPLICATION INSTRUCTIONS: abdominal folds and under breasts Continued Cholecalciferol (Vitamin D3) 1,000 U 2,000 units PO DAILY aspirin 81 mg tablet,chewable 1 tab PO DAILY metoprolol tartrate 25 mg tablet 25 mg PO BID pantoprazole 40 mg tablet,delayed release (DR/EC) 40 mg PO BID Patient Comments: Take 1 tablet by mouth two times a day before meals at 6am and 4pm multivitamin [Daily Multi-Vitamin] Tablet 1 tab PO DAILY Discontinued multivitamin with folic acid [Thera] 1 TABLET tablet 1 tab PO DAILY cyanocobalamin (vitamin B-12) 1,000 MCG tablet, sublingual 1,000 mcg sublingual DAILY coenzyme Q10 50 MG tablet,chewable 200 mg PO DAILY Nitric Oxide 420 mg PO DAILY turmeric 400 mg capsule 400 mg PO DAILY elderberry fruit 200 mg capsule 200 mg PO DAILY lisinopril 5 mg tablet 10 mg PO DAILY cetirizine [24Hour Allergy] 10 mg tablet 10 mg PO DAILY No Action oxycodone 5 mg tablet 5 mg PO 4X/DAY PRN PRN (Reason: pain) Referrals / Follow Up: Taylor Zuniga DO [Primary Care Provider, Internal Medicine] Disposition Disposition (needs filled in before D/C Order can be placed): NonSkilled NH/Intermed Care
--- NOTE | 2025-03-27 16:27 | TREXTCAR_ITS ---
Diet Diet Order/Speech Therapy: INPATIENT Hospital Diet / Speech Therapy Order(s) 03/18/25 12:41 Diet: Regular - General Food consistency:: Soft & Bite Sized Liquid Consistency:: Regular/Thin Type of Dietary Supplement:: fortified foods tid Diet Comments: brings premier protein for meals 3x/day - gravies/sauces w/ all meals Routine Orders/Code Status Code Status: DNRCC-A (No intubation.) DC O2, CPAP, BIPAP needs Home O2 Discharge instructions: No Wound(s) 5 abdominal lap sites: Wound Type: Surgical Incision Dressing Change: bandaids Left abdominal fold: Wound Type: moisture slit Dressing Change: Nystatin powder spine/back: Wound Type: Abrasion Dressing Change: foam dressing Therapies Weight Bearing: Weight bearing as tolerated Extremity Affected:: Bilateral Lower Physical Therapy: Eval and Treat Occupational Therapy: Eval and Treat Speech Therapy: Eval and Treat Problem/Diagnosis (1) Debility: Status: Acute Code(s): R53.81 - Other malaise (2) Abdominal pain: Status: Inactive Code(s): R10.9 - Unspecified abdominal pain (3) N&V (nausea and vomiting): Status: Acute Code(s): R11.2 - Nausea with vomiting, unspecified (4) Hiatal hernia: Status: Acute Code(s): K44.9 - Diaphragmatic hernia without obstruction or gangrene (5) Gastric outlet obstruction: Status: Inactive Code(s): K31.1 - Adult hypertrophic pyloric stenosis (6) Gout: Status: Acute Code(s): M10.9 - Gout, unspecified (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] (8) Essential (primary) hypertension: Status: Acute Code(s): I10 - Essential (primary) hypertension (9) Dysphagia: Status: Acute Code(s): R13.10 - Dysphagia, unspecified (10) History of non-Hodgkin's lymphoma: Status: Acute Code(s): Z85.72 - Personal history of non-Hodgkin lymphomas (11) Hypogonadism: Status: Acute (12) Vitamin D deficiency: Status: Acute Code(s): E55.9 - Vitamin D deficiency, unspecified Plan 84 year old male with below past medical history hospitalized for abdominal pain, nausea/vomiting 2/2 gastric outlet obstruction 2/2 hiatal hernia, underwent robot assisted laparoscopic hiatal hernia repair 03/04/2025, admitted to TCU with debility, here for rehabilitation, strengthening, prior to discharge home with . * Debility - PT/OT. * Dysphagia - ST. * Pain - Tylenol 1000mg q6 prn pain (1-5), Oxycodone 5mg q4 prn pain (6-10). * Bowel - senna/colace 1 tablet bid prn. * Adult immunization - Administer pneumonia vaccine, covid vaccine, flu vaccine as appropriate. * DVT prophylaxis - Lovenox 40mg sc daily. * Coronary artery disease - Metoprolol 25mg bid, Lisinopril 10mg daily, Aspirin 81mg daily. * Vitamin D deficiency - D3 50mcg daily. * Nutrition - MVI 1 tablet daily. * GERD - Pantoprazole 40mg bid. Allergies/Procedures Done in Hospital Allergies bacitracin (From Neosporin ([id number])) Adverse Reaction (Mild, Verified 02/24/25 17:08) Itching neomycin (From Neosporin ([id number])) Adverse Reaction (Mild, Verified 02/24/25 17:08) Itching polymyxin B (From Neosporin ([id number])) Adverse Reaction (Mild, Verified 02/24/25 17:08) Itching adhesive tape Adverse Reaction (Verified 02/24/25 17:08) Unknown Procedures: None Type of Care/Length of Stay Estimated LOS: More Than 30 Days Type of Care Needed: Intermediate Rehab Potential: Poor Prognosis: Poor Additional Orders/Day of Discharge Additional Orders: part B therapies Day of Discharge: 03/30/25 Dietary and Speech Recommendations Dietitian Recommendations/Changes: Continue liberal regular w/ fortified foods as able - consistency per [facility] Continue to have bring premier protein from home and foods that res re quests as able Will provide extra gravies/sauces at meals to help moisten food per res request. Rec consider appetite stimulant to help increase po intake Consider supplemental nutritional support if in accordance w/ res/family wishes to help prevent additional wt loss and decline in nutritional status. Follow Up Care Please Follow Up With: Krista Marques MD (general surgery) When: 2 weeks Please Follow Up With: Alisha Manjarrez MD (Cardiology) When: 2 weeks Please Follow Up With: Nadiya Camilo MD (Gastroenterology) When: 2 weeks Discharge Plan Admission Admit Date/Time: 03/05/25 15:52 Primary Reason for Your Visit: Debility. Attending Provider: Rey Henao Chi Primary Care Provider: Taylor Zuniga Instructions Additional Instructions / Restrictions: Discharge to [facility] 03/30/2025, intermediate, part B therapies. Discharge Orders/Prescriptions Prescriptions: New acetaminophen 500 mg Tablet 1,000 mg PO Q6H PRN PRN (Reason: Pain Score 1-5) Qty: 0 0RF lisinopril 20 mg Tablet 20 mg PO DAILY Qty: 0 0RF menthol-zinc oxide [Calmoseptine] 0.44-20.6 % Ointment 1 applic topical BID Qty: 0 0RF Protocol: *Topical Application Instructions APPLICATION INSTRUCTIONS: Coccyx, bilateral buttocks sennosides-docusate sodium [Stimulant Laxative Plus] 8.6-50 mg Tablet 1 tab PO BID PRN (Reason: Constipation) Qty: 0 0RF mirtazapine 15 mg Tablet 7.5 mg PO QHS Qty: 0 0RF nystatin 100,000 unit/gram Powder 1 applic topical BID Qty: 0 0RF Protocol: *Topical Application Instructions APPLICATION INSTRUCTIONS: abdominal folds and under breasts Continued Cholecalciferol (Vitamin D3) 1,000 U 2,000 units PO DAILY aspirin 81 mg tablet,chewable 1 tab PO DAILY metoprolol tartrate 25 mg tablet 25 mg PO BID pantoprazole 40 mg tablet,delayed release (DR/EC) 40 mg PO BID Patient Comments: Take 1 tablet by mouth two times a day before meals at 6am and 4pm multivitamin [Daily Multi-Vitamin] Tablet 1 tab PO DAILY Discontinued multivitamin with folic acid [Thera] 1 TABLET tablet 1 tab PO DAILY cyanocobalamin (vitamin B-12) 1,000 MCG tablet, sublingual 1,000 mcg sublingual DAILY coenzyme Q10 50 MG tablet,chewable 200 mg PO DAILY Nitric Oxide 420 mg PO DAILY turmeric 400 mg capsule 400 mg PO DAILY elderberry fruit 200 mg capsule 200 mg PO DAILY lisinopril 5 mg tablet 10 mg PO DAILY cetirizine [24Hour Allergy] 10 mg tablet 10 mg PO DAILY No Action oxycodone 5 mg tablet 5 mg PO 4X/DAY PRN PRN (Reason: pain) Referrals / Follow Up: Efrain,Taylor, [Primary Care Provider, Internal Medicine] Disposition Disposition (needs filled in before D/C Order can be placed): NonSkilled NH/Intermed Care
[2025-03-27 20:59] VITALS: BP 122/50; PULSE 69
[2025-03-27 21:02] VITALS: BP 122/50; PULSE 69
[2025-03-28 09:17] VITALS: BP 134/47; PULSE 58; RESP 16; TEMP 37; O2SAT 97
[2025-03-28 09:28] VITALS: PULSE 58
[2025-03-28] MEDS: Cholecalciferol (VIT D3) 25 MCG TABLET (1,000 UNITS) 50 MCG PO (09:28)
[2025-03-28 14:44] VITALS: BP 126/47; PULSE 73; RESP 14; TEMP 36.7; O2SAT 97
[2025-03-28 15:39] VITALS: PULSE 60; RESP 16; O2SAT 95
[2025-03-28 22:08] VITALS: BP 121/50; PULSE 68
[2025-03-29 10:12] VITALS: BP 120/43; PULSE 60; RESP 16; TEMP 37.1; O2SAT 96
[2025-03-29 10:17] VITALS: PULSE 60
[2025-03-29] MEDS: Cholecalciferol (VIT D3) 25 MCG TABLET (1,000 UNITS) 50 MCG PO (10:17)
[2025-03-29 20:00] VITALS: PULSE 64; RESP 18; O2SAT 94
[2025-03-29 21:00] VITALS: BP 122/41; PULSE 65
[2025-03-30 06:37] VITALS: PULSE 57; RESP 16; O2SAT 95
[2025-03-30 08:50] VITALS: PULSE 63
[2025-03-30] MEDS: Cholecalciferol (VIT D3) 25 MCG TABLET (1,000 UNITS) 50 MCG PO (08:50)
[2025-03-30 08:55] VITALS: BP 132/78; PULSE 63; RESP 16; TEMP 36.7; O2SAT 97
--- NOTE | 2025-03-30 09:10 | NURSING ---
Report called to Daina RADER at [facility] [place].
--- NOTE | 2025-03-30 10:24 | CASEMGMT ---
Social Work SW completed BIMS () and PHQ-2 () for MDS assessment. Tala Ruiz [employer]
== END 2025-03-30 09:50 | disposition intermediate care facility (04) | DRG 949 ==
PROVIDERS: Admitting Provider Family Medicine Geriatric Medicine; PCP Internal Medicine; Visit Provider Family Medicine Geriatric Medicine
DX: Z48.815 Encounter for surgical aftercare following surgery on the digestive system (principal); K31.1 Adult hypertrophic pyloric stenosis; E44.0 Moderate protein-calorie malnutrition; N39.0 Urinary tract infection, site not specified; I10 Essential (primary) hypertension; F32.A Depression, unspecified; I25.10 Atherosclerotic heart disease of native coronary artery without angina pectoris; E55.9 Vitamin D deficiency, unspecified; M60.9 Myositis, unspecified; K44.9 Diaphragmatic hernia without obstruction or gangrene; K21.9 Gastro-esophageal reflux disease without esophagitis; E86.0 Dehydration; R13.10 Dysphagia, unspecified; Z79.82 Long term (current) use of aspirin; Z79.899 Other long term (current) drug therapy; Z85.72 Personal history of non-Hodgkin lymphomas; G47.00 Insomnia, unspecified; Z23 Encounter for immunization; Z68.21 Body mass index [BMI] 21.0-21.9, adult
CPT/HCPCS: 36415; 80048; 81001; 85025; 87077; 87086; 87088; 87186; 92526; 92610; 97110; 97162; 97166; 97530; 97535; A4216

== ENCOUNTER → 2025-04-06 | Outpatient (REF) | payer MEDICARE, OTHER, SELFPAY ==
--- OUTSIDE RECORDS SUMMARY | 2025-04-06 04:06 | XMS RPT_ITS | CCD ---
Author Organization [facility] Care Team Providers Care Chain Dyer Name Role Phone Fast DO, Taylor A Attending Unavailable Fast DO, Taylor A Consulting Unavailable Fast DO, Taylor A Unavailable Manchak PAPER COATING SUPERVISOR, Tere Unavailable Unavailable Unavailable Unavailable Fast DO, Dr. Vazquez Primary Care Provider [phone] Fast DO, Dr. Vazquez Attending Provider Fast DO, Dr. Vazquez Primary Care Provider [phone] Fast DO, Dr. Vazquez Attending Provider DEISI VILLALTA Admitting Unavailable MONFARED, JOSE Attending Unavailable MONFARED, JOSE Consulting Unavailable GEDEISI RAMIREZ Admitting Unavailable KAREEM PEREZ Attending Unavailable JULY KENT Referring Unavailable Fast , Dr. Vazquez Primary Care Physician Fast DO, Dr. Vazquez Attending Physician Ungdayanara CANELA, Dr. Koch Attending Physician Gavin CANELA, Dr. Koch Emergency Department Physici an Dr. Windy Jasso MD Attending Physician Juliano CHAUDHARY, Dr. Rey Nunn Admitting Physician Juliano CHAUDHARY, Dr. Rey Nunn Attending Physician Fast, Taylor Primary Care Unavailable Zee Alonso Referring Unavailable Windy Jasso Attending Unavailable Fast, Taylor Primary Care Unavailable Rey Henao Chi Admitting Unavailable Rey Henao Chi Attending Unavailable Ungur, Zee Attending Unavailable Fast, Taylor Primary Care Unavailable Fast, Taylor Primary Care Unavailable Fast, Taylor Attending Unavailable Fast, Taylor Primary Care Unavailable Fast, Taylor Attending Unavailable Fast, Taylor Attending Unavailable Fast, Taylor Primary Care Unavailable Allergies Allergy Classification Reported Allergen(s) Allergy Type Date of Onset Reaction(s) Facility (14 sources) bacitracin / neomycin / polymyxin b Drug Allergy [facility] Work Phone: Comment on above: rash (14 sources) Latex; Translations: [Latex] Allergy to substance (finding) [facility] Work Phone: Comment on above: and bandaids (10 sources) Adhesive Tape; Translations: [adhesive tape] Propensity to adverse reactions 9 Unknown [facility] (9 sources) Bacitracin Drug Allergy 9 Itching [facility] (9 sources) Neomycin Drug Allergy 9 Itching [facility] (9 sources) Polymyxin B Drug Allergy 9 Itching [facility] (1 source) Adhesive agent; Translations: [ADHESIVE] Propensity to adverse reactions to drug (disorder) 9 [facility] Rep[facility] (1 source) NEOMYCIN-BACITR ACIN-POLYMYXIN; Translations: [NEOMYCIN-BACIT RACIN-POLYMYXIN ] Propensity to adverse reactions to drug (disorder) 6 [facility] Rep[facility] (1 source) Bacitracin Drug Allergy 5 [facility] Rep[facility] (1 source) Neomycin Drug Allergy 5 [facility] (1 source) polymyxin B Drug allergy (disorder) 5 [facility] Medications Current Medications Medication Drug Class(es) Dates Sig (Normalized) Sig (Original) aspirin 81 mg chewable tablet (1 source) Platelet Aggregation Inhibitor, Nonsteroidal Anti-inflammatory Drug Start: 03-05-2025 Aspirin 81 mg tablet,chewable Active 1 {tbl} PO DAILY March 04, 2025 11:00pm [facility] Complies with drug therapy Start: 03-05-2025 Aspirin 81 mg tablet,chewable Active 1 {tbl} PO DAILY March 04, 2025 11:00pm [facility] Complies with drug therapy cetirizine hydrochloride 10 mg oral tablet (3 sources) Histamine-1 Receptor Antagonist Start: 01-29-2024 take 1 tablet by mouth once daily cholecalciferol 1000 unt extended release oral capsule (20 sources) Vitamin D Start: 07-31-2016 take 2000 [IU] by mouth once daily Cholecalciferol (Vitamin D3) 1000 U Active 2000 U PO DAILY July 30, 2016 11:00pm supplement Complies with drug therapy Start: 07-31-2016 take 1000 [IU] by [facility] once daily Cholecalciferol (Vitamin D3) 1000 U Active 1000 U PO DAILY July 31, 2016 12:00am supplement take 1 tablet by [facility] once daily Vitamin D3 125 mcg (5,000 unit) oral tablet 1 qd (125 mcg (5,000 uni) Active elderberry fruit 200 mg oral capsule (8 sources) Start: 12-17-2022 take 1 capsule by mouth once daily lisinopril 5 mg oral tablet (20 sources) Angiotensin Converting Enzyme Inhibitor Start: 01-29-2024 take 2 tablets by mouth once daily Lisinopril 5 mg tablet Active 10 mg PO DAILY January 28, 2024 11:00pm blood pressure Complies with drug therapy Start: 02-12-2023 take 2 tablets by [facility] once daily lisinopriL 5 mg oral tablet 2 (two) tablet qd for 90 days Quantity: 180 {Tablet} Refills: 3 Ordered: 12-Feb-2023 Fast DO, Taylor A Fast DO, Taylor A Start : 12-Feb-2023 Active Comments: he has dysphagia and doesnt want the larger pill Start: 01-15-2023 take 2 tablets by [facility] once daily lisinopriL 5 mg oral tablet 2 (two) tablet qd for 90 days Quantity: 180 {Tablet} Refills: 3 Ordered: 15-Jan-2023 Fast DO, Taylor A Fast DO, Taylor A Start : 15-Jan-2023 Active Comments: he has dysphagia and doesnt want the larger pill Start: 12-25-2022 take 2 tablets by [facility] once daily lisinopriL 5 mg oral tablet [...] 5 mg PO DAILY March 29, 2016 12:00am January 29, 2024 1:54pm Start: 03-29-2016 take 5 mg by mouth once daily Lisinopril Active 5 MG PO DAILY March 29, 2016 1:00am take 1 tablet by [facility] once daily lisinopriL 5 mg oral tablet 1 qd (5 mg) Active Comment on above: he has dysphagia and doesnt want the larger pill Mail order. metoprolol tartrate 25 mg oral tablet (1 source) beta-Adrenergic Kelli Start: 03-05-2025 take 1 tablet by mouth twice daily Metoprolol Tartrate 25 mg tablet Active 25 mg PO TWICE A DAY March 04, 2025 11:00pm BP Complies with drug therapy Start: 03-05-2025 take 1 tablet by [facility] twice daily Metoprolol Tartrate 25 mg tablet Active 25 mg PO TWICE A DAY March 04, 2025 11:00pm BP Complies with drug therapy Multivitamin (Daily Multi-Vitamin) tablet (1 source) Start: 03-05-2025 Multivitamin ( Daily Multi-Vitamin) tablet Active 1 {tbl} PO DAILY March 04, 2025 11:00pm Supplement Complies with drug therapy Multivitamin With Folic Acid (Multivitamin) 1 TABLET tablet (6 sources) Start: 07-31-2016 take 1 tablet by mouth once daily Multivitamin With Folic Acid (Multivitamin) 1 TABLET tablet Active 1 TABLET PO DAILY July 30, 2016 11:00pm Start: 07-31-2016 take 1 tablet by [facility] once daily Multivitamin With Folic Acid (Multivitamin) 1 TABLET tablet Active 1 TABLET PO DAILY July 31, 2016 12:00am Multivitamin With Folic Acid (Thera) 1 TABLET tablet (3 sources) Start: 07-31-2016 take 1 tablet by [facility] once daily Start: 07-31-2016 take 1 tablet by [facility] once daily Multivitamin With Folic Acid (Thera) 1 TABLET tablet Active 1 {tbl} PO DAILY July 31, 2016 12:00am supplement Start: 07-31-2016 take 1 tablet by [facility] once daily Multivitamin With Folic Acid (Thera) 1 TABLET tablet Active 1 {tbl} PO DAILY July 31, 2016 12:00am Nitric Oxide (9 sources) Vasodilator Start: 12-04-2018 take 420 mg by mouth once pato y Start: 12-04-2018 take 420 mg by mouth [...] MG PO DAILY December 04, 2018 12:00am oxyCODONE hydrochloride 5 mg oral tablet (4 sources) Opioid Agonist Start: 03-05-2025 take 1 tablet by mouth four times daily as needed for pain Oxycodone 5 mg tablet Active 5 mg PO 4 TIMES DAILY NEEDED as needed for pain March 04, 2025 11:00pm Complies with drug therapy Start: 02-01-2024 End: 02-12-2024 take 1 tablet by mouth every six hours as needed for pain Oxycodone 5 mg Tablet Discontinued 5 mg PO EVERY 6 HOURS as needed for pain (scale score 7-10) 12 3 0 February 01, 2024 February 12, 2024 5:52pm Cellulitis of right lower extremity Cellulitis of right lower limb pantoprazole 40 mg delayed release oral tablet (1 source) Proton Pump Inhibitor Start: 03-05-2025 take 1 tablet by mouth twice daily Pantoprazole 40 mg tablet,delayed release (DR/EC) Active 40 mg PO TWICE A DAY March 04, 2025 11:00pm [facility] Complies with drug therapy Start: 03-05-2025 take 1 tablet by [facility] twice daily Pantoprazole 40 mg tablet,delayed release (DR/EC) Active 40 mg PO TWICE A DAY March 04, 2025 11:00pm [facility]ER[facility] Complies with drug therapy Turmeric extract (8 sources) Start: 12-17-2022 take 1 capsule by mouth once d aily Start: 12-17-2022 take 1 capsule by mo [facility] once daily Turmeric 400 mg capsule Active [...] 2022 12:00am ubidecarenone 50 mg chewable tablet (9 sources) Start: 12-04-2018 take 10 tablets by mouth once daily Coenzyme Q10 50 MG tablet,chewable Active 200 mg PO DAILY December 03, 2018 11:00pm supplement Complies with drug therapy vitamin b12 1 mg sublingual tablet (9 sources) Vitamin B12 Start: 12-04-2017 take 1 tablet under the tongue once daily Completed/Discontinued Medications Medication Drug Class(es) Dates Sig (Normalized) Sig (Original) amoxicillin 120 mg/ml / clavulanate 8.58 mg/ml oral suspension (17 sources) Penicillin-class Antibacterial Start: 01-29-2024 End: 02-01-2024 take 1 mL by mouth twice daily Amoxicillin-Pot Clavulanate 600-42.9 mg/5 mL suspension for reconstitution Discontinued 7.3 mL PO TWICE A DAY January 28, 2024 11:00pm February 01, 2024 1:57pm Start: 08-23-2022 End: 09-02-2022 take 1 tablet by mouth twice daily amoxicillin-pot clavulanate 875-125 mg oral tablet 1 (one) tablet bid for 10 days Quantity: 20 {Tablet} Refills: 0 Ordered: 23-Aug-2022 Tere Disla CMA Start : 23-Aug-2022 End : 02-Sep-2022 Inactive [...] Active doxycycline monohydrate 100 mg oral capsule (3 sources) Tetracycline-class Drug Start: 02-01-20 End: 02-12-20 take 1 capsule by mouth twice daily Doxycycline Monohydrate 100 mg capsule Discontinued 100 mg PO TWICE A DAY 8 0 January 31, 2024 11:00pm February 12, 2024 5:51pm infection levoFLOXacin 750 mg oral tablet (3 sources) Quinolone Antimicrobial Start: 02-01-20 End: 02-12-20 take 1 tablet by mouth once daily Levofloxacin 750 mg Tablet Discontinued 750 mg PO DAILY@0600 0 0 January 31, 2024 11:00pm February 12, 2024 5:51pm infection mecobalamin 1 mg sublingual tablet (14 sources) take 1 tablet under the tongue once daily mecobalamin (vitamin B12) 1,000 mcg disintegrating tablet,sublingual 1 qd (1,000 mcg) Active melatonin 3 mg oral tablet (3 sources) Start: 02-01-20 End: 02-12-20 take 1 tablet by mouth at bedtime as needed Melatonin 3 mg Tablet Discontinued 3 mg PO AT BEDTIME NEEDED as needed for Insomnia 0 January 31, 2024 11:00pm February 12, 2024 5:52pm Problems Active Problems Problem Classification Problem Date Documented Da te Episodic/Chronic Abdominal hernia (20 sources) Hiatal hernia; Translations: [Hiatal hernia] 08-22-2022 Episodic Comment on above: chronic stable-howie nue present regimen Abdominal pain (2 sources) Abdominal pain; Translations: [Unspecified abdominal pain] 03-04-2025 Episodic Deficiency and other anemia (3 sources) Anemia; Translations: [Anemia, unspecified] 02-02-2024 Episodic Comment on above: New since November 2023. Normochromic normocytic with a normal RDW Diabetes mellitus without complication (10 sources) Hyperglycemia; Translations: [Elevated fasting blood sugar] 12-25-2022 Episodic E Codes: Fall (8 sources) Fall; Translations: [Unspecified fall, initial encounter] 12-17-2022 Episodic Essential hypertension (20 sources) Hypertensive disorder; Translations: [Hypertension] Onset: 5 08-22-2022 Chronic Comment on above: bp is bit high will have them monitor and see what numbers look like watch salt get bmp i n month Fluid and electrolyte disorders (3 sources) Acute hyponatremia; Translations: [Hypo-osmolality and hyponatremia] 02-09-2024 Episodic Gout and other crystal arthropathies (2 sources) Gout; Translations: [Gout, unspecified] 03-05-2025 Chronic Malaise and fatigue (20 sources) Asthenia; Translations: [Weakness] 08-22-2022 Episodic Nausea and vomiting (5 sources) Nausea with vomiting, unspecified; Translations: [Nausea and vomiting] Onset: 5 02-24-2025 Episodic Non-Hodgkin`s lymphoma (14 sources) Non-Hodgkin's lymphoma (clinical); Translations: [Non Hodgkin's lymphoma] 08-22-2022 Chronic Comment on above: diagnosed 2007 had c hemo radiation and cure by 2008 Non-Hodgkin`s lymphoma (10 sources) History of non-Hodgkins lymphoma; Translations: [Personal history of non-Hodgkin lymphomas] 12-04-2017 Episodic Nutritional deficiencies (2 sources) Vitamin D deficiency; Translations: [Vitamin D deficiency, unspecified] 03-05-2025 Chronic Open wounds of head; neck; and trunk (8 sources) Scalp laceration; Translations: [Laceration without foreign body of scalp, initial encounter] 12-17-2022 Episodic Other aftercare (1 source) Encounter for surgical aftercare following surgery on the digestive system; Translations: [Encounter for surgical aftercare following surgery on the digestive system] Onset: Episodic Other and unspecified benign neoplasm (20 [...] Episodic Other diseases of veins and lymphatics (3 sources) Lymphedema; Translations: [Lymphedema, not elsewhere classified] 02-02-2024 Chronic Other disorders of stomach and duodenum (1 source) Adult hypertrophic pyloric stenosis; Translations: [Gastric outlet obstruction (HCC)] Onset: Episodic Other disorders of stomach and duodenum (2 sources) Pyloric obstruction; Translations: [Adult hypertrophic pyloric stenosis] 03-04-2025 Episodic Other endocrine disorders (2 sources) Hypogonadism 03-05-2025 Chronic Other gastrointestinal disorders (20 sources) Chronic [...] have speech therapy reeval unfortunately will p floridalmaress he not aspirating at this point wll monitor Other gastrointestinal disorders (1 source) Encounter for fitting and adjustment of other gastrointestinal appliance and device; Translations: [Encounter for nasogastric (NG) tube placement] Onset: 5 Episodic Other gastrointestinal disorders (2 sources) Dysphagia; Translations: [Dysphagia, unspecified] 03-05-2025 Episodic Other inflammatory condition of skin (3 sources) Lichenification of skin; 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 Comment on above: progressive- i dont believe at this point he will benefit from therapy but did discuss with dysphagia needs to consider may need peg tube at some pointdiagnosed by muscle biopsy at [facility] had vns and therapy into assess and do all they coulddiagnosed by muscle biopsy at [facility] 1995 Other screening for suspected conditions (not mental disorders or infectious disease) (20 sources) Patient encounter status; Translations: [Screening for prostate cancer] Onset: 5 08-22-2022 Episodic Other upper respiratory disease (10 sources) Gustatory rhinitis; 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 Comment on above: nsaacort aqua Residual codes; unclassified (20 sources) Dependent edema; Translations: [Dependent edema] 08-22-2022 Episodic Comment on above: improved try to keep elevated wrapped watchs salt Skin and subcutaneous tissue infections (20 sources) Cellulitis of right lower limb; Translations: [Cellulitis of leg, right] Resolved: 3 08-23-2022 Episodic Comment on above: going to have visiti nurse go do wound care- draw labs and do Iv rocephin 2 grams qd for 5 days- elevate legs we discussed importance and compression- Due to Pseudomonas a eruginosa, Citrobacter koseri and MRSA Unclassified (20 sources) Past or Other Problems Problem Classification Problem Date Documented Da te Episodic/Chronic Unclassified (9 sources) CYST EXCISION RIGHT BREAST 11-25-2021 Results Test Name Value Interpretation Reference Range Facility Basic Metabolic Profile (BMP )on 04-17-2025 BUN Normal 4-19 [facility] Comment on above: Result Comment: Canc elled via OM: Order edited - Discontinuing original order Performed By: #### L 100.0100, L500.2500 #### [facility] [address] [facility] [address] BUN/CRE Normal 10-20 [facility] Comment on above: Result Comment: Canc elled via OM: Order edited - Discontinuing original order Performed By: #### L 100.0100, L500.2500 #### [facility] [address] [facility] [address] Calcium Normal 7.6-11.0 [facility] Comment on above: Result Comment: Canc elled via OM: Order edited - Discontinuing original order Performed By: #### L 100.0100, L500.2500 #### [facility] [address] [facility] [address] CL Normal 98-108 [facility] Comment on above: Result Comment: Canc elled via OM: Order edited - Discontinuing original order Performed By: #### L 100.0100, L500.2500 #### [facility] [address] [facility] [address] CO2 Normal 21.0-32.0 [facility] Comment on above: Result Comment: Canc elled via OM: Order edited - Discontinuing original order Performed By: #### L 100.0100, L500.2500 #### [facility] [address] [place], [address] CREAT,SERUM Normal 0.70-1.20 [facility] Comment on above: Result Comment: Canc elled via OM: Order edited - Discontinuing original order Performed By: #### L 100.0100, L500.2500 #### [facility] [address] [place], [address] eGFR Normal >60 [facility] Comment on above: Result Comment: Canc elled via OM: Order edited - Discontinuing original order Performed By: #### L 100.0100, L500.2500 #### [facility] [address] [place], [address] GAP Normal 5-15 [facility] Comment on above: Result Comment: Canc elled via OM: Order edited - Discontinuing original order Performed By: #### L 100.0100, L500.2500 #### [facility] [address] [place], [address] GLU Normal 70-99 [facility] Comment on above: Result Comment: Canc elled via OM: Order edited - Discontinuing original order Performed By: #### L 100.0100, L500.2500 #### [facility] [address] [place], [address] Potassium Normal 3.3-5.1 [facility] Comment on above: Result Comment: Canc elled via OM: Order edited - Discontinuing original order Performed By: #### L 100.0100, L500.2500 #### [facility] [address] [place], [address] Basic Metabolic Profile (BMP) Normal 133-145 [facility] Comment on above: Result Comment: Canc elled via OM: Order edited - Discontinuing original order Performed By: #### L 100.0100, L500.2500 #### [facility] [address] [place], [address] CBC W/Diff, Automatedon 12-1 Absolute Neut Normal 2.0-7.7 [facility] Comment on above: Result Comment: Canc elled via OM: Order edited - Discontinuing original order Performed By: #### L 100.0100, L500.2500 #### [facility] [address] [place], [address] HCT Normal 40-54 [facility] Comment on above: Result Comment: Canc elled via OM: Order edited - Discontinuing original order Performed By: #### L 100.0100, L500.2500 #### [facility] [address] [place], [address] HGB Normal 13.0-16.5 [facility] Comment on above: Result Comment: Canc elled via OM: Order edited - Discontinuing original order Performed By: #### L 100.0100, L500.2500 #### [facility] [address] [place], [address] MCH Normal 27.0-32.0 [facility] Comment on above: Result Comment: Canc elled via OM: Order edited - Discontinuing original order Performed By: #### L 100.0100, L500.2500 #### [facility] [address] [place], [address] MCHC Normal 32-36 [facility] Comment on above: Result Comment: Canc elled via OM: Order edited - Discontinuing original order Performed By: #### L 100.0100, L500.2500 #### [facility] [address] [place], [address] MCV Normal 80-94 [facility] Comment on above: Result Comment: Canc elled via OM: Order edited - Discontinuing original order Performed By: #### L 100.0100, L500.2500 #### [facility] [address] [place], [address] NEUT% Normal 47-70 [facility] Comment on above: Result Comment: Canc elled via OM: Order edited - Discontinuing original order Performed By: #### L 100.0100, L500.2500 #### [facility] [address] [place], [address] PLT Normal 150-450 [facility] Comment on above: Result Comment: Canc elled via OM: Order edited - Discontinuing original order Performed By: #### L 100.0100, L500.2500 #### [facility] [address] [place], [address] RBC Normal 4.6-6.2 [facility] Comment on above: Result Comment: Canc elled via OM: Order edited - Discontinuing original order Performed By: #### L 100.0100, L500.2500 #### [facility] [address] [place], [address] RDW CV Normal 11.6-14.6 [facility] Comment on above: Result Comment: Canc elled via OM: Order edited - Discontinuing original order Performed By: #### L 100.0100, L500.2500 #### [facility] [address] [place], [address] RDW SD Normal 35.1-43.9 [facility] Comment on above: Result Comment: Canc elled via OM: Order edited - Discontinuing original order Performed By: #### L 100.0100, L500.2500 #### [facility] [address] [place], [address] WBC Normal 4.4-11.0 [facility] Comment on above: Result Comment: Canc elled via OM: Order edited - Discontinuing original order Performed By: #### L 100.0100, L500.2500 #### [facility] [address] [place], [address] Basic Metabolic Profile (BMP )on 04-10-2025 BUN Normal 4-19 [facility] Comment on above: Result Comment: Canc elled via OM: Order edited - Discontinuing original order Performed By: #### L 100.0100, L500.2500 #### [facility] [address] [place], [address] BUN/CRE Normal 10-20 [facility] Comment on above: Result Comment: Canc elled via OM: Order edited - Discontinuing original order Performed By: #### L 100.0100, L500.2500 #### [facility] [address] [place], [address] Calcium Normal 7.6-11.0 [facility] Comment on above: Result Comment: Canc elled via OM: Order edited - Discontinuing original order Performed By: #### L 100.0100, L500.2500 #### [facility] [address] [place], [address] CL Normal 98-108 [facility] Comment on above: Result Comment: Canc elled via OM: Order edited - Discontinuing original order Performed By: #### L 100.0100, L500.2500 #### [facility] [address] [place], [address] CO2 Normal 21.0-32.0 [facility] Comment on above: Result Comment: Canc elled via OM: Order edited - Discontinuing original order Performed By: #### L 100.0100, L500.2500 #### [facility] [address] [place], [address] CREAT,SERUM Normal 0.70-1.20 [facility] Comment on above: Result Comment: Canc elled via OM: Order edited - Discontinuing original order Performed By: #### L 100.0100, L500.2500 #### [facility] [address] [place], [address] eGFR Normal >60 [facility] Comment on above: Result Comment: Canc elled via OM: Order edited - Discontinuing original order Performed By: #### L 100.0100, L500.2500 #### [facility] [address] [place], [address] GAP Normal 5-15 [facility] Comment on above: Result Comment: Canc elled via OM: Order edited - Discontinuing original order Performed By: #### L 100.0100, L500.2500 #### [facility] [address] [place], [address] GLU Normal 70-99 [facility] Comment on above: Result Comment: Canc elled via OM: Order edited - Discontinuing original order Performed By: #### L 100.0100, L500.2500 #### [facility] [address] [place], [address] Potassium Normal 3.3-5.1 [facility] Comment on above: Result Comment: Canc elled via OM: Order edited - Discontinuing original order Performed By: #### L 100.0100, L500.2500 #### [facility] [address] [place], [address] Basic Metabolic Profile (BMP) Normal 133-145 [facility] Comment on above: Result Comment: Canc elled via OM: Order edited - Discontinuing original order Performed By: #### L 100.0100, L500.2500 #### [facility] [address] [place], [address] CBC W/Diff, Automatedon 12-0 -2024 Absolute Neut Normal 2.0-7.7 [facility] Comment on above: Result Comment: Canc elled via OM: Order edited - Discontinuing original order Performed By: #### L 100.0100, L500.2500 #### [facility] [address] [place], [address] HCT Normal 40-54 [facility] Comment on above: Result Comment: Canc elled via OM: Order edited - Discontinuing original order Performed By: #### L 100.0100, L500.2500 #### [facility] [address] [place], [address] HGB Normal 13.0-16.5 [facility] Comment on above: Result Comment: Canc elled via OM: Order edited - Discontinuing original order Performed By: #### L 100.0100, L500.2500 #### [facility] [address] [place], [address] MCH Normal 27.0-32.0 [facility] Comment on above: Result Comment: Canc elled via OM: Order edited - Discontinuing original order Performed By: #### L 100.0100, L500.2500 #### [facility] [address] [place], [address] MCHC Normal 32-36 [facility] Comment on above: Result Comment: Canc elled via OM: Order edited - Discontinuing original order Performed By: #### L 100.0100, L500.2500 #### [facility] [address] [place], [address] MCV Normal 80-94 [facility] Comment on above: Result Comment: Canc elled via OM: Order edited - Discontinuing original order Performed By: #### L 100.0100, L500.2500 #### [facility] [address] [place], [address] NEUT% Normal 47-70 [facility] Comment on above: Result Comment: Canc elled via OM: Order edited - Discontinuing original order Performed By: #### L 100.0100, L500.2500 #### [facility] [address] [place], [address] PLT Normal 150-450 [facility] Comment on above: Result Comment: Canc elled via OM: Order edited - Discontinuing original order Performed By: #### L 100.0100, L500.2500 #### [facility] [address] [place], [address] RBC Normal 4.6-6.2 [facility] Comment on above: Result Comment: Canc elled via OM: Order edited - Discontinuing original order Performed By: #### L 100.0100, L500.2500 #### [facility] [address] [place], [address] RDW CV Normal 11.6-14.6 [facility] Comment on above: Result Comment: Canc elled via OM: Order edited - Discontinuing original order Performed By: #### L 100.0100, L500.2500 #### [facility] [address] [place], [address] RDW SD Normal 35.1-43.9 [facility] Comment on above: Result Comment: Canc elled via OM: Order edited - Discontinuing original order Performed By: #### L 100.0100, L500.2500 #### [facility] [address] [place], [address] WBC Normal 4.4-11.0 [facility] Comment on above: Result Comment: Canc elled via OM: Order edited - Discontinuing original order Performed By: #### L 100.0100, L500.2500 #### [facility] [address] [place], [address] Basic Metabolic Profile (BMP )on 04-03-2025 BUN Normal 4-19 [facility] Comment on above: Result Comment: Canc elled via OM: Order edited - Discontinuing original order Performed By: #### L 506.1001, L500.4050, L501.9520, L501.9985, L100.0100 #### [facility] [address] [place], [address] BUN/CRE Normal 10-20 [facility] Comment on above: Result Comment: Canc elled via OM: Order edited - Discontinuing original order Performed By: #### L 506.1001, L500.4050, L501.9520, L501.9985, L100.0100 #### [facility] [address] [place], [address] Calcium Normal 7.6-11.0 [facility] Comment on above: Result Comment: Canc elled via OM: Order edited - Discontinuing original order Performed By: #### L 506.1001, L500.4050, L501.9520, L501.9985, L100.0100 #### [facility] [address] [place], [address] CL Normal 98-108 [facility] Comment on above: Result Comment: Canc elled via OM: Order edited - Discontinuing original order Performed By: #### L 506.1001, L500.4050, L501.9520, L501.9985, L100.0100 #### [facility] [address] [place], [address] CO2 Normal 21.0-32.0 [facility] Comment on above: Result Comment: Canc elled via OM: Order edited - Discontinuing original order Performed By: #### L 506.1001, L500.4050, L501.9520, L501.9985, L100.0100 #### [facility] [address] [place], [address] CREAT,SERUM Normal 0.70-1.20 [facility] Comment on above: Result Comment: Canc elled via OM: Order edited - Discontinuing original order Performed By: #### L 506.1001, L500.4050, L501.9520, L501.9985, L100.0100 #### [facility] [address] [place], [address] eGFR Normal >60 [facility] Comment on above: Result Comment: Canc elled via OM: Order edited - Discontinuing original order Performed By: #### L 506.1001, L500.4050, L501.9520, L501.9985, L100.0100 #### [facility] [address] [place], [address] GAP Normal 5-15 [facility] Comment on above: Result Comment: Canc elled via OM: Order edited - Discontinuing original order Performed By: #### L 506.1001, L500.4050, L501.9520, L501.9985, L100.0100 #### [facility] [address] [place], [address] GLU Normal 70-99 [facility] Comment on above: Result Comment: Canc elled via OM: Order edited - Discontinuing original order Performed By: #### L 506.1001, L500.4050, L501.9520, L501.9985, L100.0100 #### [facility] [address] [place], [address] Potassium Normal 3.3-5.1 [facility] Comment on above: Result Comment: Canc elled via OM: Order edited - Discontinuing original order Performed By: #### L 506.1001, L500.4050, L501.9520, L501.9985, L100.0100 #### [facility] [address] [place], [address] Basic Metabolic Profile (BMP) Normal 133-145 [facility] Comment on above: Result Comment: Canc elled via OM: Order edited - Discontinuing original order Performed By: #### L 506.1001, L500.4050, L501.9520, L501.9985, L100.0100 #### [facility] [address] [place], [address] CBC W/Diff, Automatedon 11-2 -2024 Absolute Neut Normal 2.0-7.7 [facility] Comment on above: Result Comment: Canc elled via OM: Order edited - Discontinuing original order Performed By: #### L 506.1001, L500.4050, L501.9520, L501.9985, L100.0100 #### [facility] [address] [place], [address] HCT Normal 40-54 [facility] Comment on above: Result Comment: Canc elled via OM: Order edited - Discontinuing original order Performed By: #### L 506.1001, L500.4050, L501.9520, L501.9985, L100.0100 #### [facility] [address] [place], [address] HGB Normal 13.0-16.5 [facility] Comment on above: Result Comment: Canc elled via OM: Order edited - Discontinuing original order Performed By: #### L 506.1001, L500.4050, L501.9520, L501.9985, L100.0100 #### [facility] [address] [place], [address] MCH Normal 27.0-32.0 [facility] Comment on above: Result Comment: Canc elled via OM: Order edited - Discontinuing original order Performed By: #### L 506.1001, L500.4050, L501.9520, L501.9985, L100.0100 #### [facility] [address] [place], [address] MCHC Normal 32-36 [facility] Comment on above: Result Comment: Canc elled via OM: Order edited - Discontinuing original order Performed By: #### L 506.1001, L500.4050, L501.9520, L501.9985, L100.0100 #### [facility] [address] [place], [address] MCV Normal 80-94 [facility] Comment on above: Result Comment: Canc elled via OM: Order edited - Discontinuing original order Performed By: #### L 506.1001, L500.4050, L501.9520, L501.9985, L100.0100 #### [facility] [address] [place], [address] NEUT% Normal 47-70 [facility] Comment on above: Result Comment: Canc elled via OM: Order edited - Discontinuing original order Performed By: #### L 506.1001, L500.4050, L501.9520, L501.9985, L100.0100 #### [facility] [address] [place], [address] PLT Normal 150-450 [facility] Comment on above: Result Comment: Canc elled via OM: Order edited - Discontinuing original order Performed By: #### L 506.1001, L500.4050, L501.9520, L501.9985, L100.0100 #### [facility] [address] [place], [address] RBC Normal 4.6-6.2 [facility] Comment on above: Result Comment: Canc elled via OM: Order edited - Discontinuing original order Performed By: #### L 506.1001, L500.4050, L501.9520, L501.9985, L100.0100 #### [facility] [address] [place], [address] RDW CV Normal 11.6-14.6 [facility] Comment on above: Result Comment: Canc elled via OM: Order edited - Discontinuing original order Performed By: #### L 506.1001, L500.4050, L501.9520, L501.9985, L100.0100 #### [facility] [address] [place], [address] RDW SD Normal 35.1-43.9 [facility] Comment on above: Result Comment: Canc elled via OM: Order edited - Discontinuing original order Performed By: #### L 506.1001, L500.4050, L501.9520, L501.9985, L100.0100 #### [facility] [address] [place], [address] WBC Normal 4.4-11.0 [facility] Comment on above: Result Comment: Canc elled via OM: Order edited - Discontinuing original order Performed By: #### L 506.1001, L500.4050, L501.9520, L501.9985, L100.0100 #### [facility] [address] [place], [address] Basic Metabolic Profile (BMP )on 03-27-2025 BUN Normal 4-19 [facility] Comment on above: Result Comment: Canc elled via OM: Order edited - Discontinuing original order Performed By: #### L 506.1001, L500.4050, L501.9520, L501.9985, L100.0100 #### [facility] [address] [place], [address] BUN/CRE Normal 10-20 [facility] Comment on above: Result Comment: Canc elled via OM: Order edited - Discontinuing original order Performed By: #### L 506.1001, L500.4050, L501.9520, L501.9985, L100.0100 #### [facility] [address] [place], [address] Calcium Normal 7.6-11.0 [facility] Comment on above: Result Comment: Canc elled via OM: Order edited - Discontinuing original order Performed By: #### L 506.1001, L500.4050, L501.9520, L501.9985, L100.0100 #### [facility] [address] [place], [address] CL Normal 98-108 [facility] Comment on above: Result Comment: Canc elled via OM: Order edited - Discontinuing original order Performed By: #### L 506.1001, L500.4050, L501.9520, L501.9985, L100.0100 #### [facility] [address] [place], [address] CO2 Normal 21.0-32.0 [facility] Comment on above: Result Comment: Canc elled via OM: Order edited - Discontinuing original order Performed By: #### L 506.1001, L500.4050, L501.9520, L501.9985, L100.0100 #### [facility] [address] [place], [address] CREAT,SERUM Normal 0.70-1.20 [facility] Comment on above: Result Comment: Can elled via OM: Order edited - Discontinuing original order Performed By: #### L 506.1001, L500.4050, L501.9520, L501.9985, L100.0100 #### [facility] [address] [place], [address] eGFR Normal >60 [facility] Comment on above: Result Comment: Can elled via OM: Order edited - Discontinuing original order Performed By: #### L 506.1001, L500.4050, L501.9520, L501.9985, L100.0100 #### [facility] [address] [place], [address] GAP Normal 5-15 [facility] Comment on above: Result Comment: Canc elled via OM: Order edited - Discontinuing original order Performed By: #### L 506.1001, L500.4050, L501.9520, L501.9985, L100.0100 #### [facility] [address] [place], [address] GLU Normal 70-99 [facility] Comment on above: Result Comment: Canc elled via OM: Order edited - Discontinuing original order Performed By: #### L 506.1001, L500.4050, L501.9520, L501.9985, L100.0100 #### [facility] [address] [place], [address] Potassium Normal 3.3-5.1 [facility] Comment on above: Result Comment: Canc elled via OM: Order edited - Discontinuing original order Performed By: #### L 506.1001, L500.4050, L501.9520, L501.9985, L100.0100 #### [facility] [address] [place], [address] Basic Metabolic Profile (BMP) Normal 133-145 [facility] Comment on above: Result Comment: Canc elled via OM: Order edited - Discontinuing original order Performed By: #### L 506.1001, L500.4050, L501.9520, L501.9985, L100.0100 #### [facility] [address] [place], [address] CBC W/Diff, Automatedon 11-2 Absolute Neut Normal 2.0-7.7 [facility] Comment on above: Result Comment: Canc elled via OM: Order edited - Discontinuing original order Performed By: #### L 506.1001, L500.4050, L501.9520, L501.9985, L100.0100 #### [facility] [address] [place], [address] HCT Normal 40-54 [facility] Comment on above: Result Comment: Canc elled via OM: Order edited - Discontinuing original order Performed By: #### L 506.1001, L500.4050, L501.9520, L501.9985, L100.0100 #### [facility] [address] [place], [address] HGB Normal 13.0-16.5 [facility] Comment on above: Result Comment: Canc elled via OM: Order edited - Discontinuing original order Performed By: #### L 506.1001, L500.4050, L501.9520, L501.9985, L100.0100 #### [facility] [address] [place], [address] MCH Normal 27.0-32.0 [facility] Comment on above: Result Comment: Canc elled via OM: Order edited - Discontinuing original order Performed By: #### L 506.1001, L500.4050, L501.9520, L501.9985, L100.0100 #### [facility] [address] [place], [address] MCHC Normal 32-36 [facility] Comment on above: Result Comment: Canc elled via OM: Order edited - Discontinuing original order Performed By: #### L 506.1001, L500.4050, L501.9520, L501.9985, L100.0100 #### [facility] [address] [place], [address] MCV Normal 80-94 [facility] Comment on above: Result Comment: Canc elled via OM: Order edited - Discontinuing original order Performed By: #### L 506.1001, L500.4050, L501.9520, L501.9985, L100.0100 #### [facility] [address] [place], [address] NEUT% Normal 47-70 [facility] Comment on above: Result Comment: Canc elled via OM: Order edited - Discontinuing original order Performed By: #### L 506.1001, L500.4050, L501.9520, L501.9985, L100.0100 #### [facility] [address] [place], [address] PLT Normal 150-450 [facility] Comment on above: Result Comment: Canc elled via OM: Order edited - Discontinuing original order Performed By: #### L 506.1001, L500.4050, L501.9520, L501.9985, L100.0100 #### [facility] [address] [place], [address] RBC Normal 4.6-6.2 [facility] Comment on above: Result Comment: Canc elled via OM: Order edited - Discontinuing original order Performed By: #### L 506.1001, L500.4050, L501.9520, L501.9985, L100.0100 #### [facility] [address] [place], [address] RDW CV Normal 11.6-14.6 [facility] Comment on above: Result Comment: Canc elled via OM: Order edited - Discontinuing original order Performed By: #### L 506.1001, L500.4050, L501.9520, L501.9985, L100.0100 #### [facility] [address] [place], [address] RDW SD Normal 35.1-43.9 [facility] Comment on above: Result Comment: Canc elled via OM: Order edited - Discontinuing original order Performed By: #### L 506.1001, L500.4050, L501.9520, L501.9985, L100.0100 #### [facility] [address] [place], [address] WBC Normal 4.4-11.0 [facility] Comment on above: Result Comment: Canc elled via OM: Order edited - Discontinuing original order Performed By: #### L 506.1001, L500.4050, L501.9520, L501.9985, L100.0100 #### [facility] [address] [place], [address] Basic Metabolic Profile (BMP )on 03-20-2025 BUN Normal 4-19 [facility] Comment on above: Result Comment: Canc elled via OM: Order edited - Discontinuing original order Performed By: #### L 100.0100, L500.2500 #### [facility] [address] [place], [address] BUN/CRE Normal 10-20 [facility] Comment on above: Result Comment: Canc elled via OM: Order edited - Discontinuing original order Performed By: #### L 100.0100, L500.2500 #### [facility] [address] [place], [address] Calcium Normal 7.6-11.0 [facility] Comment on above: Result Comment: Canc elled via OM: Order edited - Discontinuing original order Performed By: #### L 100.0100, L500.2500 #### [facility] [address] [place], [address] CL Normal 98-108 [facility] Comment on above: Result Comment: Canc elled via OM: Order edited - Discontinuing original order Performed By: #### L 100.0100, L500.2500 #### [facility] [address] [place], [address] CO2 Normal 21.0-32.0 [facility] Comment on above: Result Comment: Canc elled via OM: Order edited - Discontinuing original order Performed By: #### L 100.0100, L500.2500 #### [facility] [address] [place], [address] CREAT,SERUM Normal 0.70-1.20 [facility] Comment on above: Result Comment: Canc elled via OM: Order edited - Discontinuing original order Performed By: #### L 100.0100, L500.2500 #### [facility] [address] [place], [address] eGFR Normal >60 [facility] Comment on above: Result Comment: Canc elled via OM: Order edited - Discontinuing original order Performed By: #### L 100.0100, L500.2500 #### [facility] [address] [place], [address] GAP Normal 5-15 [facility] Comment on above: Result Comment: Canc elled via OM: Order edited - Discontinuing original order Performed By: #### L 100.0100, L500.2500 #### [facility] [address] [place], [address] GLU Normal 70-99 [facility] Comment on above: Result Comment: Canc elled via OM: Order edited - Discontinuing original order Performed By: #### L 100.0100, L500.2500 #### [facility] [address] [place], [address] Potassium Normal 3.3-5.1 [facility] Comment on above: Result Comment: Canc elled via OM: Order edited - Discontinuing original order Performed By: #### L 100.0100, L500.2500 #### [facility] [address] [place], [address] Basic Metabolic Profile (BMP) Normal 133-145 [facility] Comment on above: Result Comment: Canc elled via OM: Order edited - Discontinuing original order Performed By: #### L 100.0100, L500.2500 #### [facility] [address] [place], [address] CBC W/Diff, Automatedon 11- Absolute Neut Normal 2.0-7.7 [facility] Comment on above: Result Comment: Canc elled via OM: Order edited - Discontinuing original order Performed By: #### L 100.0100, L500.2500 #### [facility] [address] [place], [address] HCT Normal 40-54 [facility] Comment on above: Result Comment: Canc elled via OM: Order edited - Discontinuing original order Performed By: #### L 100.0100, L500.2500 #### [facility] [address] [place], [address] HGB Normal 13.0-16.5 [facility] Comment on above: Result Comment: Canc elled via OM: Order edited - Discontinuing original order Performed By: #### L 100.0100, L500.2500 #### [facility] [address] [place], [address] MCH Normal 27.0-32.0 [facility] Comment on above: Result Comment: Canc elled via OM: Order edited - Discontinuing original order Performed By: #### L 100.0100, L500.2500 #### [facility] [address] [place], [address] MCHC Normal 32-36 [facility] Comment on above: Result Comment: Canc elled via OM: Order edited - Discontinuing original order Performed By: #### L 100.0100, L500.2500 #### [facility] [address] [place], [address] MCV Normal 80-94 [facility] Comment on above: Result Comment: Canc elled via OM: Order edited - Discontinuing original order Performed By: #### L 100.0100, L500.2500 #### [facility] [address] [place], [address] NEUT% Normal 47-70 [facility] Comment on above: Result Comment: Canc elled via OM: Order edited - Discontinuing original order Performed By: #### L 100.0100, L500.2500 #### [facility] [address] [place], [address] PLT Normal 150-450 [facility] Comment on above: Result Comment: Canc elled via OM: Order edited - Discontinuing original order Performed By: #### L 100.0100, L500.2500 #### [facility] [address] [place], [address] RBC Normal 4.6-6.2 [facility] Comment on above: Result Comment: Canc elled via OM: Order edited - Discontinuing original order Performed By: #### L 100.0100, L500.2500 #### [facility] [address] [place], [address] RDW CV Normal 11.6-14.6 [facility] Comment on above: Result Comment: Canc elled via OM: Order edited - Discontinuing original order Performed By: #### L 100.0100, L500.2500 #### [facility] [address] [place], [address] RDW SD Normal 35.1-43.9 [facility] Comment on above: Result Comment: Canc elled via OM: Order edited - Discontinuing original order Performed By: #### L 100.0100, L500.2500 #### [facility] [address] [place], [address] WBC Normal 4.4-11.0 [facility] Comment on above: Result Comment: Canc elled via OM: Order edited - Discontinuing original order Performed By: #### L 100.0100, L500.2500 #### [facility] [address] [place], [address] Urine Cultureon 03-19-2025 [facility] Escherichia coli [place] Count 25,000-50,000 Escherichia coli: REACTION Ampicillin Islt BRENT 8 Ampicillin+Sulbac Islt BRENT <=2 S Cefepime Islt BRENT <=0.12 S cefTRIAXone Islt BRENT <=0.25 S Ciprofloxacin Islt BRENT <=0.06 S B-Lactamase Extended Susc Islt NEG Gentamicin Islt BRENT <=1 S levoFLOXacin Islt BRENT <=0.12 S Meropenem Islt BRENT <=0.25 S Nitrofurantoin Islt BRENT <=16 S Pip+Tazo Islt BRENT <=4 S TMP SMX Islt BRENT <=20 S Normal [facility] Comment on above: Performed By: #### L 100.0100, L500.2500 #### [facility] [address] [place], [address] Urinalysis, Completeon 03-17 BACTERIA 3+ /hpf Normal None Seen [facility] Comment on above: Order Comment: USHA TER SPECIMEN Performed By: #### M 100.2200, L400.0001 #### [facility] [address] [place], [address] WBC 0-5 SEEN Normal 0-5 [facility] Comment on above: Order Comment: USHA TER SPECIMEN Performed By: #### M 100.2200, L400.0001 #### [facility] [address] [place], [address] EPI,SQUAMOUS 0 SEEN Normal 0-5 [facility] Comment on above: Order Comment: USHA TER SPECIMEN Performed By: #### M 100.2200, L400.0001 #### [facility] [address] [place], [address] Mucus Ql (Urine sed) 0 SEEN Normal [facility] Comment on above: Order Comment: USHA TER SPECIMEN Performed By: #### M 100.2200, L400.0001 #### [facility] [address] [place], [address] RBC 0 SEEN Normal 0-5 [facility] Comment on above: Order Comment: USHA TER SPECIMEN Performed By: #### M 100.2200, L400.0001 #### [facility] [address] [place], [address] Basic Metabolic Profile (BMP )on 03-16-2025 BUN Normal 4-19 [facility] Comment on above: Result Comment: Canc elled via OM: Order Changed Performed By: #### L 100.0100, L500.2500 #### [facility] [address] [place], [address] BUN/CRE Normal 10-20 [facility] Comment on above: Result Comment: Canc elled via OM: Order Changed Performed By: #### L 100.0100, L500.2500 #### [facility] [address] [place], [address] Calcium Normal 7.6-11.0 [facility] Comment on above: Result Comment: Canc elled via OM: Order Changed Performed By: #### L 100.0100, L500.2500 #### [facility] [address] [place], [address] CL Normal 98-108 [facility] Comment on above: Result Comment: Canc elled via OM: Order Changed Performed By: #### L 100.0100, L500.2500 #### [facility] [address] [place], [address] CO2 Normal 21.0-32.0 [facility] Comment on above: Result Comment: Canc elled via OM: Order Changed Performed By: #### L 100.0100, L500.2500 #### [facility] [address] [place], [address] CREAT,SERUM Normal 0.70-1.20 [facility] Comment on above: Result Comment: Canc elled via OM: Order Changed Performed By: #### L 100.0100, L500.2500 #### [facility] [address] [place], [address] eGFR Normal >60 [facility] Comment on above: Result Comment: Canc elled via OM: Order Changed Performed By: #### L 100.0100, L500.2500 #### [facility] [address] [place], [address] GAP Normal 5-15 [facility] Comment on above: Result Comment: Canc elled via OM: Order Changed Performed By: #### L 100.0100, L500.2500 #### [facility] [address] [place], [address] GLU Normal 70-99 [facility] Comment on above: Result Comment: Canc elled via OM: Order Changed Performed By: #### L 100.0100, L500.2500 #### [facility] [address] [place], [address] Potassium Normal 3.3-5.1 [facility] Comment on above: Result Comment: Canc elled via OM: Order Changed Performed By: #### L 100.0100, L500.2500 #### [facility] [address] [place], [address] Basic Metabolic Profile (BMP) Normal 133-145 [facility] Comment on above: Result Comment: Canc elled via OM: Order Changed Performed By: #### L 100.0100, L500.2500 #### [facility] [address] [place], [address] CBC W/Diff, Automatedon 11-1 0-2024 Absolute Neut Normal 2.0-7.7 [facility] Comment on above: Result Comment: Canc elled via OM: Order Changed Performed By: #### L 100.0100, L500.2500 #### [facility] [address] [place], [address] HCT Normal 40-54 [facility] Comment on above: Result Comment: Canc elled via OM: Order Changed Performed By: #### L 100.0100, L500.2500 #### [facility] [address] [place], [address] HGB Normal 13.0-16.5 [facility] Comment on above: Result Comment: Canc elled via OM: Order Changed Performed By: #### L 100.0100, L500.2500 #### [facility] [address] [place], [address] MCH Normal 27.0-32.0 [facility] Comment on above: Result Comment: Canc elled via OM: Order Changed Performed By: #### L 100.0100, L500.2500 #### [facility] [address] [place], [address] MCHC Normal 32-36 [facility] Comment on above: Result Comment: Canc elled via OM: Order Changed Performed By: #### L 100.0100, L500.2500 #### [facility] [address] [place], [address] MCV Normal 80-94 [facility] Comment on above: Result Comment: Canc elled via OM: Order Changed Performed By: #### L 100.0100, L500.2500 #### [facility] [address] [place], [address] NEUT% Normal 47-70 [facility] Comment on above: Result Comment: Canc elled via OM: Order Changed Performed By: #### L 100.0100, L500.2500 #### [facility] [address] [place], [address] PLT Normal 150-450 [facility] Comment on above: Result Comment: Canc elled via OM: Order Changed Performed By: #### L 100.0100, L500.2500 #### [facility] [address] [place], [address] RBC Normal 4.6-6.2 [facility] Comment on above: Result Comment: Canc elled via OM: Order Changed Performed By: #### L 100.0100, L500.2500 #### [facility] [address] [place], [address] RDW CV Normal 11.6-14.6 [facility] Comment on above: Result Comment: Canc elled via OM: Order Changed Performed By: #### L 100.0100, L500.2500 #### [facility] [address] [place], [address] RDW SD Normal 35.1-43.9 [facility] Comment on above: Result Comment: Canc elled via OM: Order Changed Performed By: #### L 100.0100, L500.2500 #### [facility] [address] [place], [address] WBC Normal 4.4-11.0 [facility] Comment on above: Result Comment: Canc elled via OM: Order Changed Performed By: #### L 100.0100, L500.2500 #### [facility] [address] [place], [address] Basic Metabolic Profile (BMP )on 03-15-2025 BUN Normal 4-19 [facility] Comment on above: Result Comment: Canc elled via OM: Order Changed Performed By: #### L 100.0100, L500.2500 #### [facility] [address] [place], [address] BUN/CRE Normal 10-20 [facility] Comment on above: Result Comment: Canc elled via OM: Order Changed Performed By: #### L 100.0100, L500.2500 #### [facility] [address] [place], [address] Calcium Normal 7.6-11.0 [facility] Comment on above: Result Comment: Canc elled via OM: Order Changed Performed By: #### L 100.0100, L500.2500 #### [facility] [address] [place], [address] CL Normal 98-108 [facility] Comment on above: Result Comment: Canc elled via OM: Order Changed Performed By: #### L 100.0100, L500.2500 #### [facility] [address] [place], [address] CO2 Normal 21.0-32.0 [facility] Comment on above: Result Comment: Canc elled via OM: Order Changed Performed By: #### L 100.0100, L500.2500 #### [facility] [address] [place], [address] CREAT,SERUM Normal 0.70-1.20 [facility] Comment on above: Result Comment: Canc elled via OM: Order Changed Performed By: #### L 100.0100, L500.2500 #### [facility] [address] [place], [address] eGFR Normal >60 [facility] Comment on above: Result Comment: Canc elled via OM: Order Changed Performed By: #### L 100.0100, L500.2500 #### [facility] [address] [place], [address] GAP Normal 5-15 [facility] Comment on above: Result Comment: Canc elled via OM: Order Changed Performed By: #### L 100.0100, L500.2500 #### [facility] [address] [place], [address] GLU Normal 70-99 [facility] Comment on above: Result Comment: Canc elled via OM: Order Changed Performed By: #### L 100.0100, L500.2500 #### [facility] [address] [place], [address] Potassium Normal 3.3-5.1 [facility] Comment on above: Result Comment: Canc elled via OM: Order Changed Performed By: #### L 100.0100, L500.2500 #### [facility] [address] [place], [address] Basic Metabolic Profile (BMP) Normal 133-145 [facility] Comment on above: Result Comment: Canc elled via OM: Order Changed Performed By: #### L 100.0100, L500.2500 #### [facility] [address] [place], [address] CBC W/Diff, Automatedon 11-0 -2024 Absolute Neut Normal 2.0-7.7 [facility] Comment on above: Result Comment: Canc elled via OM: Order Changed Performed By: #### L 100.0100, L500.2500 #### [facility] [address] [place], [address] HCT Normal 40-54 [facility] Comment on above: Result Comment: Canc elled via OM: Order Changed Performed By: #### L 100.0100, L500.2500 #### [facility] [address] [place], [address] HGB Normal 13.0-16.5 [facility] Comment on above: Result Comment: Canc elled via OM: Order Changed Performed By: #### L 100.0100, L500.2500 #### [facility] [address] [place], [address] MCH Normal 27.0-32.0 [facility] Comment on above: Result Comment: Canc elled via OM: Order Changed Performed By: #### L 100.0100, L500.2500 #### [facility] [address] [place], [address] MCHC Normal 32-36 [facility] Comment on above: Result Comment: Canc elled via OM: Order Changed Performed By: #### L 100.0100, L500.2500 #### [facility] [address] [place], [address] MCV Normal 80-94 [facility] Comment on above: Result Comment: Canc elled via OM: Order Changed Performed By: #### L 100.0100, L500.2500 #### [facility] [address] [place], [address] NEUT% Normal 47-70 [facility] Comment on above: Result Comment: Canc elled via OM: Order Changed Performed By: #### L 100.0100, L500.2500 #### [facility] [address] [place], [address] PLT Normal 150-450 [facility] Comment on above: Result Comment: Canc elled via OM: Order Changed Performed By: #### L 100.0100, L500.2500 #### [facility] [address] [place], [address] RBC Normal 4.6-6.2 [facility] Comment on above: Result Comment: Canc elled via OM: Order Changed Performed By: #### L 100.0100, L500.2500 #### [facility] [address] [place], [address] RDW CV Normal 11.6-14.6 [facility] Comment on above: Result Comment: Canc elled via OM: Order Changed Performed By: #### L 100.0100, L500.2500 #### [facility] [address] [place], [address] RDW SD Normal 35.1-43.9 [facility] Comment on above: Result Comment: Canc elled via OM: Order Changed Performed By: #### L 100.0100, L500.2500 #### [facility] [address] [place], [address] WBC Normal 4.4-11.0 [facility] Comment on above: Result Comment: Canc elled via OM: Order Changed Performed By: #### L 100.0100, L500.2500 #### [facility] [address] [place], [address] Basic Metabolic Profile (BMP )on 03-14-2025 BUN Normal 4-19 [facility] Comment on above: Result Comment: Canc elled via OM: Order Changed Performed By: #### L 100.0100, L500.2500 #### [facility] [address] [place], [address] BUN/CRE Normal 10-20 [facility] Comment on above: Result Comment: Canc elled via OM: Order Changed Performed By: #### L 100.0100, L500.2500 #### [facility] [address] [place], [address] Calcium Normal 7.6-11.0 [facility] Comment on above: Result Comment: Canc elled via OM: Order Changed Performed By: #### L 100.0100, L500.2500 #### [facility] [address] [place], [address] CL Normal 98-108 [facility] Comment on above: Result Comment: Canc elled via OM: Order Changed Performed By: #### L 100.0100, L500.2500 #### [facility] [address] [place], [address] CO2 Normal 21.0-32.0 [facility] Comment on above: Result Comment: Canc elled via OM: Order Changed Performed By: #### L 100.0100, L500.2500 #### [facility] [address] [place], [address] CREAT,SERUM Normal 0.70-1.20 [facility] Comment on above: Result Comment: Canc elled via OM: Order Changed Performed By: #### L 100.0100, L500.2500 #### [facility] [address] [place], [address] eGFR Normal >60 [facility] Comment on above: Result Comment: Canc elled via OM: Order Changed Performed By: #### L 100.0100, L500.2500 #### [facility] [address] [place], [address] GAP Normal 5-15 [facility] Comment on above: Result Comment: Canc elled via OM: Order Changed Performed By: #### L 100.0100, L500.2500 #### [facility] [address] [place], [address] GLU Normal 70-99 [facility] Comment on above: Result Comment: Canc elled via OM: Order Changed Performed By: #### L 100.0100, L500.2500 #### [facility] [address] [place], [address] Potassium Normal 3.3-5.1 [facility] Comment on above: Result Comment: Canc elled via OM: Order Changed Performed By: #### L 100.0100, L500.2500 #### [facility] [address] [place], [address] Basic Metabolic Profile (BMP) Normal 133-145 [facility] Comment on above: Result Comment: Canc elled via OM: Order Changed Performed By: #### L 100.0100, L500.2500 #### [facility] [address] [place], [address] CBC W/Diff, Automatedon 11-0 Absolute Neut Normal 2.0-7.7 [facility] Comment on above: Result Comment: Canc elled via OM: Order Changed Performed By: #### L 100.0100, L500.2500 #### [facility] [address] [place], [address] HCT Normal 40-54 [facility] Comment on above: Result Comment: Canc elled via OM: Order Changed Performed By: #### L 100.0100, L500.2500 #### [facility] [address] [place], [address] HGB Normal 13.0-16.5 [facility] Comment on above: Result Comment: Canc elled via OM: Order Changed Performed By: #### L 100.0100, L500.2500 #### [facility] [address] [place], [address] MCH Normal 27.0-32.0 [facility] Comment on above: Result Comment: Canc elled via OM: Order Changed Performed By: #### L 100.0100, L500.2500 #### [facility] [address] [place], [address] MCHC Normal 32-36 [facility] Comment on above: Result Comment: Canc elled via OM: Order Changed Performed By: #### L 100.0100, L500.2500 #### [facility] [address] [place], [address] MCV Normal 80-94 [facility] Comment on above: Result Comment: Canc elled via OM: Order Changed Performed By: #### L 100.0100, L500.2500 #### [facility] [address] [place], [address] NEUT% Normal 47-70 [facility] Comment on above: Result Comment: Canc elled via OM: Order Changed Performed By: #### L 100.0100, L500.2500 #### [facility] [address] [place], [address] PLT Normal 150-450 [facility] Comment on above: Result Comment: Canc elled via OM: Order Changed Performed By: #### L 100.0100, L500.2500 #### [facility] [address] [place], [address] RBC Normal 4.6-6.2 [facility] Comment on above: Result Comment: Canc elled via OM: Order Changed Performed By: #### L 100.0100, L500.2500 #### [facility] [address] [place], [address] RDW CV Normal 11.6-14.6 [facility] Comment on above: Result Comment: Canc elled via OM: Order Changed Performed By: #### L 100.0100, L500.2500 #### [facility] [address] [place], [address] RDW SD Normal 35.1-43.9 [facility] Comment on above: Result Comment: Canc elled via OM: Order Changed Performed By: #### L 100.0100, L500.2500 #### [facility] [address] [place], [address] WBC Normal 4.4-11.0 [facility] Comment on above: Result Comment: Canc elled via OM: Order Changed Performed By: #### L 100.0100, L500.2500 #### [facility] [address] [place], [address] Absolute lymphocyte countOrd ered By: Rey Henao on 03-13-2025 Lymphocytes Auto (Unsp spec) [#/Vol] 1.29 10*3/uL 0.83-4.51 [facility] Absolute neutrophil countOrd ered By: Rey Henao on 03-13-2025 Neutrophils (Bld) [#/Vol] 6.5 10*3/uL 2.0-7.7 [facility] Anion gap in Serum or Plasma Ordered By: Rey Henao on 03-13-2025 Anion gap [Moles/Vol] 9 mmol/L 5-15 [facility] Automated lymphocyte count a s percentage of total leukocytesOrdered By: Rey Henao on 03-13-2025 Lymphocytes/100 WBC Auto (Unsp spec) 13.7 % Low 19-41 [facility] Basic Metabolic Profile (BMP )on 03-13-2025 BUN/CRE 43.2 RATIO High 10-20 [facility] Comment on above: Performed By: #### L 506.1001, L500.4050, L501.9520, L501.9985, L100.0100 #### [facility] [address] [place], [address] Calcium [Mass/Vol] 8.6 mg/dL Normal 7.6-11.0 [facility] Comment on above: Performed By: #### L 506.1001, L500.4050, L501.9520, L501.9985, L100.0100 #### [facility] [address] [place], [address] Chloride [Moles/Vol] 101 mmol/L Normal 98-108 [facility] Comment on above: Performed By: #### L 506.1001, L500.4050, L501.9520, L501.9985, L100.0100 #### [facility] Laboratory [address] [place], [address] CO2 [Moles/Vol] 23.0 mmol/L Normal 21.0-32.0 [facility] Comment on above: Performed By: #### L 506.1001, L500.4050, L501.9520, L501.9985, L100.0100 #### [facility] [address] [place], [address] Creatinine [Mass/Vol] 0.37 mg/dL Low 0.70-1.20 [facility] Comment on above: Performed By: #### L 506.1001, L500.4050, L501.9520, L501.9985, L100.0100 #### [facility] [address] [place], [address] ECRCL 59.81 ml/min Normal 50-250 [facility] Comment on above: Performed By: #### L 506.1001, L500.4050, L501.9520, L501.9985, L100.0100 #### [facility] [address] [place], [address] GAP 9 Normal 5-15 [facility] Comment on above: Performed By: #### L 506.1001, L500.4050, L501.9520, L501.9985, L100.0100 #### [facility] [address] [place], [address] GFR/1.73 sq M.predicted among non-blacks MDRD (S/P/Bld) [Vol rate/Area] 109 mL/min/{1.73_m2} Normal >60 [facility] Comment on above: Result Comment: mL/m in/1.73m2 CKD-EPI Creatinine Equation (2020) Performed By: #### L 506.1001, L500.4050, L501.9520, L501.9985, L100.0100 #### [facility] [address] [place], [address] Glucose [Mass/Vol] 129 mg/dL High 70-99 [facility] Comment on above: Performed By: #### L 506.1001, L500.4050, L501.9520, L501.9985, L100.0100 #### [facility] [address] [place], [address] Potassium [Moles/Vol] 4.2 mmol/L Normal 3.3-5.1 [facility] Comment on above: Performed By: #### L 506.1001, L500.4050, L501.9520, L501.9985, L100.0100 #### [facility] [address] [place], [address] Sodium [Moles/Vol] 132 mmol/L Low 133-145 [facility] Comment on above: Performed By: #### L 506.1001, L500.4050, L501.9520, L501.9985, L100.0100 #### [facility] [address] [place], [address] Urea nitrogen [Mass/Vol] 16 mg/dL Normal 4-19 [facility] Comment on above: Performed By: #### L 506.1001, L500.4050, L501.9520, L501.9985, L100.0100 #### [facility] [address] [place], [address] BUN Normal 4-19 [facility] Comment on above: Result Comment: Canc elled via OM: Order edited - Discontinuing original order Performed By: #### L 100.0100, L500.2500 #### [facility] [address] [place], [address] BUN/CRE Normal 10-20 [facility] Comment on above: Result Comment: Canc elled via OM: Order edited - Discontinuing original order Performed By: #### L 100.0100, L500.2500 #### [facility] [address] [place], [address] Calcium Normal 7.6-11.0 [facility] Comment on above: Result Comment: Canc elled via OM: Order edited - Discontinuing original order Performed By: #### L 100.0100, L500.2500 #### [facility] [address] [place], [address] CL Normal 98-108 [facility] Comment on above: Result Comment: Canc elled via OM: Order edited - Discontinuing original order Performed By: #### L 100.0100, L500.2500 #### [facility] [address] [place], [address] CO2 Normal 21.0-32.0 [facility] Comment on above: Result Comment: Canc elled via OM: Order edited - Discontinuing original order Performed By: #### L 100.0100, L500.2500 #### [facility] [address] [place], [address] CREAT,SERUM Normal 0.70-1.20 [facility] Comment on above: Result Comment: Canc elled via OM: Order edited - Discontinuing original order Performed By: #### L 100.0100, L500.2500 #### [facility] [address] [place], [address] eGFR Normal >60 [facility] Comment on above: Result Comment: Canc elled via OM: Order edited - Discontinuing original order Performed By: #### L 100.0100, L500.2500 #### [facility] [address] [place], [address] GAP Normal 5-15 [facility] Comment on above: Result Comment: Canc elled via OM: Order edited - Discontinuing original order Performed By: #### L 100.0100, L500.2500 #### [facility] [address] [place], [address] GLU Normal 70-99 [facility] Comment on above: Result Comment: Canc elled via OM: Order edited - Discontinuing original order Performed By: #### L 100.0100, L500.2500 #### [facility] [address] [place], [address] Potassium Normal 3.3-5.1 [facility] Comment on above: Result Comment: Canc elled via OM: Order edited - Discontinuing original order Performed By: #### L 100.0100, L500.2500 #### [facility] [address] [place], [address] Basic Metabolic Profile (BMP) Normal 133-145 [facility] Comment on above: Result Comment: Canc elled via OM: Order edited - Discontinuing original order Performed By: #### L 100.0100, L500.2500 #### [facility] [address] [place], [address] BUN Normal 4-19 [facility] Comment on above: Result Comment: Canc elled via OM: Order Changed Performed By: #### L 100.0100, L500.2500 #### [facility] [address] [place], [address] BUN/CRE Normal 10-20 [facility] Comment on above: Result Comment: Canc elled via OM: Order Changed Performed By: #### L 100.0100, L500.2500 #### [facility] [address] [place], [address] Calcium Normal 7.6-11.0 [facility] Comment on above: Result Comment: Canc elled via OM: Order Changed Performed By: #### L 100.0100, L500.2500 #### [facility] [address] [place], [address] CL Normal 98-108 [facility] Comment on above: Result Comment: Canc elled via OM: Order Changed Performed By: #### L 100.0100, L500.2500 #### [facility] [address] [place], [address] CO2 Normal 21.0-32.0 [facility] Comment on above: Result Comment: Canc elled via OM: Order Changed Performed By: #### L 100.0100, L500.2500 #### [facility] [address] [place], [address] CREAT,SERUM Normal 0.70-1.20 [facility] Comment on above: Result Comment: Canc elled via OM: Order Changed Performed By: #### L 100.0100, L500.2500 #### [facility] [address] [place], [address] eGFR Normal >60 [facility] Comment on above: Result Comment: Canc elled via OM: Order Changed Performed By: #### L 100.0100, L500.2500 #### [facility] [address] [place], [address] GAP Normal 5-15 [facility] Comment on above: Result Comment: Canc elled via OM: Order Changed Performed By: #### L 100.0100, L500.2500 #### [facility] [address] [place], [address] GLU Normal 70-99 [facility] Comment on above: Result Comment: Canc elled via OM: Order Changed Performed By: #### L 100.0100, L500.2500 #### [facility] [address] [place], [address] Potassium Normal 3.3-5.1 [facility] Comment on above: Result Comment: Canc elled via OM: Order Changed Performed By: #### L 100.0100, L500.2500 #### [facility] [address] [place], [address] Basic Metabolic Profile (BMP) Normal 133-145 [facility] Comment on above: Result Comment: Canc elled via OM: Order Changed Performed By: #### L 100.0100, L500.2500 #### [facility] [address] [place], [address] Basophil percentageOrdered B y: Rey Henao on 03-13-2025 Basophils/100 WBC (Bld) 0.4 % 0-1 [facility] Blood urea nitrogen (BUN)/cr eatinine ratioOrdered By: Rey Henao on 03-13-2025 Urea nitrogen/Creatinine [Mass ratio] 43.2 mg/mg High 10-20 [facility] CBC W/Diff, Automatedon -0 Absolute Neut Normal 2.0-7.7 [facility] Comment on above: Result Comment: Canc elled via OM: Order edited - Discontinuing original order Performed By: #### L 100.0100, L500.2500 #### [facility] [address] [place], [address] HCT Normal 40-54 [facility] Comment on above: Result Comment: Canc elled via OM: Order edited - Discontinuing original order Performed By: #### L 100.0100, L500.2500 #### [facility] [address] [place], [address] HGB Normal 13.0-16.5 [facility] Comment on above: Result Comment: Canc elled via OM: Order edited - Discontinuing original order Performed By: #### L 100.0100, L500.2500 #### [facility] [address] [place], [address] MCH Normal 27.0-32.0 [facility] Comment on above: Result Comment: Canc elled via OM: Order edited - Discontinuing original order Performed By: #### L 100.0100, L500.2500 #### [facility] [address] [place], [address] MCHC Normal 32-36 [facility] Comment on above: Result Comment: Canc elled via OM: Order edited - Discontinuing original order Performed By: #### L 100.0100, L500.2500 #### [facility] [address] [place], [address] MCV Normal 80-94 [facility] Comment on above: Result Comment: Canc elled via OM: Order edited - Discontinuing original order Performed By: #### L 100.0100, L500.2500 #### [facility] [address] [place], [address] NEUT% Normal 47-70 [facility] Comment on above: Result Comment: Canc elled via OM: Order edited - Discontinuing original order Performed By: #### L 100.0100, L500.2500 #### [facility] [address] [place], [address] PLT Normal 150-450 [facility] Comment on above: Result Comment: Canc elled via OM: Order edited - Discontinuing original order Performed By: #### L 100.0100, L500.2500 #### [facility] [address] [place], [address] RBC Normal 4.6-6.2 [facility] Comment on above: Result Comment: Canc elled via OM: Order edited - Discontinuing original order Performed By: #### L 100.0100, L500.2500 #### [facility] [address] [place], [address] RDW CV Normal 11.6-14.6 [facility] Comment on above: Result Comment: Canc elled via OM: Order edited - Discontinuing original order Performed By: #### L 100.0100, L500.2500 #### [facility] [address] [place], [address] RDW SD Normal 35.1-43.9 [facility] Comment on above: Result Comment: Canc elled via OM: Order edited - Discontinuing original order Performed By: #### L 100.0100, L500.2500 #### [facility] [address] [place], [address] WBC Normal 4.4-11.0 [facility] Comment on above: Result Comment: Canc elled via OM: Order edited - Discontinuing original order Performed By: #### L 100.0100, L500.2500 #### [facility] [address] [place], [address] Absolute Lymph 1.29 X10 3/uL Normal 0.83-4.51 [facility] Comment on above: Performed By: #### L 506.1001, L500.4050, L501.9520, L501.9985, L100.0100 #### [facility] [address] [place], [address] Absolute Neut 6.5 X10 3/uL Normal 2.0-7.7 [facility] Comment on above: Performed By: #### L 506.1001, L500.4050, L501.9520, L501.9985, L100.0100 #### [facility] [address] [place], [address] Basophils/100 WBC (Bld) 0.4 % Normal 0-1 [facility] Comment on above: Performed By: #### L 506.1001, L500.4050, L501.9520, L501.9985, L100.0100 #### [facility] [address] [place], [address] Eosinophils/100 WBC (Bld) 2.2 % Normal 0-5 [facility] Comment on above: Performed By: #### L 506.1001, L500.4050, L501.9520, L501.9985, L100.0100 #### [facility] [address] [place], [address] Erythrocyte distribution width (RBC) [Ratio] 12.7 % Normal 11.6-14.6 [facility] Comment on above: Performed By: #### L 506.1001, L500.4050, L501.9520, L501.9985, L100.0100 #### [facility] [address] [place], [address] Hematocrit (Bld) [Volume fraction] 33.6 % Low 40-54 [facility] Comment on above: Performed By: #### L 506.1001, L500.4050, L501.9520, L501.9985, L100.0100 #### [facility] [address] [place], [address] Hemoglobin (Bld) [Mass/Vol] 11.6 g/dL Low 13.0-16.5 [facility] Comment on above: Performed By: #### L 506.1001, L500.4050, L501.9520, L501.9985, L100.0100 #### [facility] [address] [place], [address] IG% 0.300 Normal 0.0-0.9 [facility] Comment on above: Result Comment: IG% - Immature Granulocytes (promyelocytes, myelocytes and metamyelocytes) > 1% indicates that a LEFT SHIFT is Present. Performed By: #### L 506.1001, L500.4050, L501.9520, L501.9985, L100.0100 #### [facility] [address] [place], [address] Lymphocytes/100 WBC (Bld) 13.7 % Low 19-41 [facility] Comment on above: Performed By: #### L 506.1001, L500.4050, L501.9520, L501.9985, L100.0100 #### [facility] [address] [place], [address] MCH (RBC) [Entitic mass] 31.8 pg Normal 27.0-32.0 [facility] Comment on above: Performed By: #### L 506.1001, L500.4050, L501.9520, L501.9985, L100.0100 #### [facility] [address] [place], [address] MCHC (RBC) [Mass/Vol] 34.5 g/dL Normal 32-36 [facility] Comment on above: Performed By: #### L 506.1001, L500.4050, L501.9520, L501.9985, L100.0100 #### [facility] [address] [place], [address] MCV (RBC) [Entitic vol] 92.1 fL Normal 80-94 [facility] Comment on above: Performed By: #### L 506.1001, L500.4050, L501.9520, L501.9985, L100.0100 #### [facility] [address] [place], [address] Monocytes/100 WBC (Bld) 14.3 % High 0-10 [facility] Comment on above: Performed By: #### L 506.1001, L500.4050, L501.9520, L501.9985, L100.0100 #### [facility] [address] [place], [address] Neutrophils/100 WBC (Bld) 69.1 % Normal 47-70 [facility] Comment on above: Performed By: #### L 506.1001, L500.4050, L501.9520, L501.9985, L100.0100 #### [facility] [address] [place], [address] Nucleated RBC (Bld) [#/Vol] 0 10*3/uL Normal 0-5 [facility] Comment on above: Performed By: #### L 506.1001, L500.4050, L501.9520, L501.9985, L100.0100 #### [facility] [address] [place], [address] Platelet mean volume (Bld) [Entitic vol] 10.4 fL Normal 6.2-12.0 [facility] Comment on above: Performed By: #### L 506.1001, L500.4050, L501.9520, L501.9985, L100.0100 #### [facility] [address] [place], [address] Platelets (Bld) [#/Vol] 240 10*3/uL Normal 150-450 [facility] Comment on above: Performed By: #### L 506.1001, L500.4050, L501.9520, L501.9985, L100.0100 #### [facility] [address] [place], [address] RBC (Bld) [#/Vol] 3.65 10*6/uL Low 4.6-6.2 [facility] Comment on above: Performed By: #### L 506.1001, L500.4050, L501.9520, L501.9985, L100.0100 #### [facility] [address] [place], [address] RDW SD 43.3 fl Normal 35.1-43.9 [facility] Comment on above: Performed By: #### L 506.1001, L500.4050, L501.9520, L501.9985, L100.0100 #### [facility] [address] [place], [address] WBC (Bld) [#/Vol] 9.5 10*3/uL Normal 4.4-11.0 [facility] Comment on above: Performed By: #### L 506.1001, L500.4050, L501.9520, L501.9985, L100.0100 #### [facility] [address] [place], [address] Absolute Neut Normal 2.0-7.7 [facility] Comment on above: Result Comment: Canc elled via OM: Order Changed Performed By: #### L 100.0100, L500.2500 #### [facility] [address] [place], [address] HCT Normal 40-54 [facility] Comment on above: Result Comment: Canc elled via OM: Order Changed Performed By: #### L 100.0100, L500.2500 #### [facility] [address] [place], [address] HGB Normal 13.0-16.5 [facility] Comment on above: Result Comment: Canc elled via OM: Order Changed Performed By: #### L 100.0100, L500.2500 #### [facility] [address] [place], [address] MCH Normal 27.0-32.0 [facility] Comment on above: Result Comment: Canc elled via OM: Order Changed Performed By: #### L 100.0100, L500.2500 #### [facility] [address] [place], [address] MCHC Normal 32-36 [facility] Comment on above: Result Comment: Canc elled via OM: Order Changed Performed By: #### L 100.0100, L500.2500 #### [facility] [address] [place], [address] MCV Normal 80-94 [facility] Comment on above: Result Comment: Canc elled via OM: Order Changed Performed By: #### L 100.0100, L500.2500 #### [facility] [address] [place], [address] NEUT% Normal 47-70 [facility] Comment on above: Result Comment: Canc elled via OM: Order Changed Performed By: #### L 100.0100, L500.2500 #### [facility] [address] [place], [address] PLT Normal 150-450 [facility] Comment on above: Result Comment: Canc elled via OM: Order Changed Performed By: #### L 100.0100, L500.2500 #### [facility] [address] [place], [address] RBC Normal 4.6-6.2 [facility] Comment on above: Result Comment: Canc elled via OM: Order Changed Performed By: #### L 100.0100, L500.2500 #### [facility] [address] [place], [address] RDW CV Normal 11.6-14.6 [facility] Comment on above: Result Comment: Canc elled via OM: Order Changed Performed By: #### L 100.0100, L500.2500 #### [facility] [address] [place], [address] RDW SD Normal 35.1-43.9 [facility] Comment on above: Result Comment: Canc elled via OM: Order Changed Performed By: #### L 100.0100, L500.2500 #### [facility] [address] [place], [address] WBC Normal 4.4-11.0 [facility] Comment on above: Result Comment: Canc elled via OM: Order Changed Performed By: #### L 100.0100, L500.2500 #### [facility] [address] [place], [address] Carbon dioxide measurementOr dered By: Rey Henao on 03-13-2025 CO2 [Moles/Vol] 23.0 mmol/L 21.0-32.0 [facility] Chloride assayOrdered By: Andrews Henao on 03-13-2025 Chloride [Moles/Vol] 101 mmol/L 98-108 [facility] Eosinophil percentageOrdered By: Rey Henao on 03-13-2025 Eosinophils/100 WBC (Bld) 2.2 % 0-5 [facility] Erythrocyte distribution wid th ratioOrdered By: Rey Henao on 03-13-2025 Erythrocyte distribution width (RBC) [Ratio] 12.7 % 11.6-14.6 [facility] Erythrocyte distribution wid th standard deviationOrdered By: Rey Henao on 03-13-2025 Erythrocyte distribution width (RBC) [Ratio] 43.3 fl 35.1-43.9 [facility] Glomerular filtration rate ( GFR) estimation/1.73 sq m using serum, plasma, or whole bOrdered By: Rey Henao on 03-13-2025 GFR/1.73 sq M.predicted among non-blacks MDRD (S/P/Bld) [Vol rate/Area] 109 mL/min/{1.73_m2} >60 [facility] Comment on above: mL/min/1.73m2 CKD-EP I Creatinine Equation (2020) Hematocrit Auto (Bld) [Volum e fraction]Ordered By: Rey Henao on 03-13-2025 Hematocrit (Bld) [Volume fraction] 33.6 % Low 40-54 [facility] Hemoglobin measurementOrdere d By: Rey Henao on 03-13-2025 Hemoglobin (Bld) [Mass/Vol] 11.6 g/dL Low 13.0-16.5 [facility] Immature granulocytes/100 WB C Auto (Bld)Ordered By: Rey Henao on 03-13-2025 Immature granulocytes/100 WBC (Bld) 0.300 % 0.0-0.9 [facility] Comment on above: IG% - Immature Granu locytes (promyelocytes, myelocytes and metamyelocytes) > 1% indicates that a LEFT SHIFT is Present. MCV (mean corpuscular volume ) determinationOrdered By: Rey Henao on 03-13-2025 MCV (RBC) [Entitic vol] 92.1 fL 80-94 [facility] Mean corpuscular hemoglobin (MCH) determinationOrdered By: Rey Henao 03-13-2025 MCH (RBC) [Entitic mass] 31.8 pg 27.0-32.0 [facility] Mean corpuscular hemoglobin concentration (MCHC) determinationOrdered By: Rey Henao 03-13-2025 MCHC (RBC) [Mass/Vol] 34.5 g/dL 32-36 [facility] Mean platelet volume determi nationOrdered By: Rey Henao on 03-13-2025 Platelet mean volume (Bld) [Entitic vol] 10.4 fL 6.2-12.0 [facility] Monocyte percentageOrdered B y: Rey Henao on 03-13-2025 Monocytes/100 WBC (Bld) 14.3 % High 0-10 [facility] Neutrophil percentageOrdered By: Rey Henao on 03-13-2025 Neutrophils/100 WBC (Bld) 69.1 % 47-70 [facility] Nucleated red blood cell per centageOrdered By: Rey Henao on 03-13-2025 Nucleated RBC/100 WBC (Bld) [Ratio] 0 % 0-5 [facility] Platelet countOrdered By: Andrews Henao on 03-13-2025 Platelets (Bld) [#/Vol] 240 10*3/uL 150-450 [facility] Potassium measurement (mass/ volume)Ordered By: Rey Henao on 03-13-2025 Potassium (Unsp spec) [Mass/Vol] 4.2 mmol/L 3.3-5.1 [facility] RBC Auto (Bld) [#/Vol]Ordere d By: Rey Henao on 03-13-2025 RBC (Bld) [#/Vol] 3.65 10*6/uL Low 4.6-6.2 [facility] Serum creatinine measurement (mass/volume)Ordered By: Rey Henao on 03-13-2025 Creatinine [Mass/Vol] 0.37 mg/dL Low 0.70-1.20 [facility] [facility] Serum glucose measurement (m ass/volume)Ordered By: Rey Henao on 03-13-2025 Glucose [Mass/Vol] 129 mg/dL High 70-99 [facility] Serum or plasma calcium marialuisa urement (mass/volume)Ordered By: Rey Henao on 03-13-2025 Calcium [Mass/Vol] 8.6 mg/dL 7.6-11.0 [facility] Serum or plasma urea nitroge n measurement (mass/volume)Ordered By: Rey Henao on 03-13-2025 Urea nitrogen [Mass/Vol] 16 mg/dL 4-19 [facility] Sodium levelOrdered By: Rey Henao on 03-13-2025 Sodium [Moles/Vol] 132 mmol/L Low 133-145 [facility] White blood cell (WBC) count Ordered By: Rey Henao on 03-13-2025 WBC (Bld) [#/Vol] 9.5 10*3/uL 4.4-11.0 [facility] CNPDionne 03-10-2025 MARIA GUADALUPE Telephone (AGCARDPOB ) JEANIE RANKIN ([id number]) 1940 M Date Time Provider Department 03/10/25 JOSE DAVIS During your visit today, we recorded the following information about you: Jose Davis APRN.ALINE 03/10/2025 3:32 PM Signed Pt was recently seen in the hospital for abnormal stress. Please reach out to patient to schedule follow up visit with Dr. Brito or RUI. Patient should be seen in 6-8 weeks. Thanks Jose Davis APRN.[employer] MI[employer]Y SUPERVISOR Uzma Garcia 03/11/2025 2:49 PM Signed Pt scheduled 05/05/2025 with Reta Fraire Message left with appt day/time Letter sent Uzma Garcia Allergies As of Date: 03/10/2025 Noted Allergy Reaction ADHESIVE 03/18/2009 NEOSPORIN ([id number]-[id number]-[id number]*08/0 07/2005 2 - Rash 9 - Itching Date Reviewed: 03/04/2025 Reviewed by: Carlita Merritt, RN - Fully Assessed Reason for Visit: Appointment [186] Prescriptions as of 03/11/2025 - pantoprazole DR (PROTONIX) 40 mg tablet Take 1 tablet by mouth two times a day before meals at 6 am and 4 pm. - aspirin 81 mg chewable tablet Take 1 tablet by mouth once daily. - metoprolol tartrate, short acting, (LOPRESSOR) 25 mg tablet Take 1 tablet by mouth every 12 hours. - testosterone (ANDROGEL) 25 mg/ 2.5g (1%) GlPk Apply 2.5 g to affected area once daily. APPLY TO CLEAN, DRY, INTACT SKIN OF THE SHOULDERS AND UPPER ARMS - coenzyme Q10 (CO Q-10) 30 mg capsule Take 1 capsule by mouth once daily. - Cholecalciferol, Vitamin D3, 2,000 unit ORAL Tab Take by mouth. Take one(1) tablet daily. - lisinopril(PRINIVIL 10 MG TAB) Take one(1) tablet daily. - MULTIVITAMIN TAB Take one(1) tablet daily. 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] 07/19/2012 Gastric outlet obstruction (HCC) [K31.1] 02/25/2025 Abnormal EKG [R94.31] 02/26/2025 Pre-operative cardiovascular examination [Z01.8*02/26/2025 Demand ischemia (HCC) [I24.89] 02/26/2025 At risk for delirium [Z91.89] 02/27/2025 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] 02/27/2025 Goals of care, counseling/discussion [Z71.89] 02/27/2025 Frailty syndrome in geriatric patient [R54] 02/27/2025 Constipation [K59.00] 02/27/2025 Abnormal stress test [R94.39] 02/27/2025 Severe protein-calorie malnutrition (HCC) [E43] 03/01/2025 Incarcerated hiatal hernia [K44.0] 03/02/2025 Encounter Status:Closed by UZMA GARCIA on 03/11/25 [facility] ANES POSTPROC EVALon 025 ANES POSTPROC EVAL HNO ID: [id number] Author: NAYA AGUILERA MD Service: Anesthesiology Author Type: Physician Type: Anesthesia Postprocedure Evaluation Filed: 03/06/2025 06:42 Note Text: POST ANESTHESIA EVALUATION NOTE : 1940 Procedure Summary Date: 03/04/25 Room / Location: [place] OR 04 / [facility] OR Anesthesia Start: 1508 Anesthesia Stop: 1813 Procedure: ROBOTIC LAPAROSCOPIC RPR PARAESOHAGEAL HERNIA W/ FUNDOPLASTY W/ MESH (Abdomen) Diagnosis: Gastric outlet obstruction (HCC) (Gastric outlet obstruction (HCC) [K31.1]) Surgeons: Jose Hayes MD Responsible Provider: Naya Aguilera MD Anesthesia Type: general ASA Status: 3 Anesthesia Type: No value filed. Airway Type: No value filed. Last Vitals Vitals Value Taken Time BP 152/54 03/04/25 19:45 Temp 36.3 ?C (97.3 ?F) 03/04/25 19:30 Pulse 66 03/04/25 20:10 Resp 19 03/04/25 20:10 SpO2 100 % 03/04/25 20:10 Vitals shown include unfiled device data. Post Anesthesia Patient Status Patient Evaluation: PACU. PACU/ICU Patient Condition: stable. Anticipated Disposition: inpatient floor planned admission. Neurological Status: aware and responsive. Pulmonary Status: breathing comfortably on room air Airway Control: returned to baseline unsupported. Cardiovascular Status: stable. Pain Management: clinically adequate Postoperative Hydration: acceptable. Intraoperative Events: no significant anesthesia events Post Operative Nausea/Vomiting Status: no significant post operative nausea or vomiting Recommendation: continue current plan of care. Anesthesia Observations No Documentation SIGNATURE: Naya Aguilera MD PATIENT NAME: Jeanie Rankin DATE: March 06, 2025 TIME: 6:41 AM CSN: [id number] Normal [facility] Basic Metabolic Profile (BMP )on 03-06-2025 BUN/CRE 46.6 RATIO High 02-23 [facility] Comment on above: Performed By: #### L 100.0100, L500.2500 #### [facility] [address] [facility] [address] Calcium [Mass/Vol] 8.7 mg/dL Normal 7.6-11.0 [facility] Comment on above: Performed By: #### L 100.0100, L500.2500 #### [facility] [address] [facility] [address] Chloride [Moles/Vol] 103 mmol/L Normal 98-108 [facility] Comment on above: Performed By: #### L 100.0100, L500.2500 #### [facility] [address] [place], [address] CO2 [Moles/Vol] 27.5 mmol/L Normal 21.0-32.0 [facility] Comment on above: Performed By: #### L 100.0100, L500.2500 #### [facility] [address] [place], [address] Creatinine [Mass/Vol] 0.35 mg/dL Low 0.70-1.20 [facility] Comment on above: Performed By: #### L 100.0100, L500.2500 #### [facility] [address] [place], [address] ECRCL 59.81 ml/min Normal 50-250 [facility] Comment on above: Performed By: #### L 100.0100, L500.2500 #### [facility] [address] [place], [address] GAP 6 Normal 5-15 [facility] Comment on above: Performed By: #### L 100.0100, L500.2500 #### [facility] [address] [place], [address] GFR/1.73 sq M.predicted among non-blacks MDRD (S/P/Bld) [Vol rate/Area] 110 mL/min/{1.73_m2} Normal >60 [facility] Comment on above: Result Comment: mL/m in/1.73m2 CKD-EPI Creatinine Equation (2020) Performed By: #### L 100.0100, L500.2500 #### [facility] [address] [place], [address] Glucose [Mass/Vol] 98 mg/dL Normal 70-99 [facility] Comment on above: Performed By: #### L 100.0100, L500.2500 #### [facility] [address] [place], [address] Potassium [Moles/Vol] 4.2 mmol/L Normal 3.3-5.1 [facility] Comment on above: Performed By: #### L 100.0100, L500.2500 #### [facility] [address] [place], [address] Sodium [Moles/Vol] 136 mmol/L Normal 133-145 [facility] Comment on above: Performed By: #### L 100.0100, L500.2500 #### [facility] [address] [place], [address] Urea nitrogen [Mass/Vol] 17 mg/dL Normal 4-19 [facility] Comment on above: Performed By: #### L 100.0100, L500.2500 #### [facility] [address] [place], [address] CBC W/Diff, Automatedon 10-3 Absolute Lymph 1.77 X10 3/uL Normal 0.83-4.51 [facility] Comment on above: Performed By: #### L 100.0100, L500.2500 #### [facility] [address] [place], [address] Absolute Neut 3.4 X10 3/uL Normal 2.0-7.7 [facility] Comment on above: Performed By: #### L 100.0100, L500.2500 #### [facility] [address] [place], [address] Basophils/100 WBC (Bld) 0.5 % Normal 0-1 [facility] Comment on above: Performed By: #### L 100.0100, L500.2500 #### [facility] [address] [place], [address] Eosinophils/100 WBC (Bld) 1.8 % Normal 0-5 [facility] Comment on above: Performed By: #### L 100.0100, L500.2500 #### [facility] [address] [place], [address] Erythrocyte distribution width (RBC) [Ratio] 12.4 % Normal 11.6-14.6 [facility] Comment on above: Performed By: #### L 100.0100, L500.2500 #### [facility] [address] [place], [address] Hematocrit (Bld) [Volume fraction] 34.0 % Low 40-54 [facility] Comment on above: Performed By: #### L 100.0100, L500.2500 #### [facility] [address] [place], [address] Hemoglobin (Bld) [Mass/Vol] 11.4 g/dL Low 13.0-16.5 [facility] Comment on above: Performed By: #### L 100.0100, L500.2500 #### [facility] [address] [place], [address] IG% 0.300 Normal 0.0-0.9 [facility] Comment on above: Result Comment: IG% - Immature Granulocytes (promyelocytes, myelocytes and metamyelocytes) > 1% indicates that a LEFT SHIFT is Present. Performed By: #### L 100.0100, L500.2500 #### [facility] [address] [place], [address] Lymphocytes/100 WBC (Bld) 27.0 % Normal 19-41 [facility] Comment on above: Performed By: #### L 100.0100, L500.2500 #### [facility] [address] [place], [address] MCH (RBC) [Entitic mass] 31.2 pg Normal 27.0-32.0 [facility] Comment on above: Performed By: #### L 100.0100, L500.2500 #### [facility] [address] [place], [address] MCHC (RBC) [Mass/Vol] 33.5 g/dL Normal 32-36 [facility] Comment on above: Performed By: #### L 100.0100, L500.2500 #### [facility] [address] [place], [address] MCV (RBC) [Entitic vol] 93.2 fL Normal 80-94 [facility] Comment on above: Performed By: #### L 100.0100, L500.2500 #### [facility] [address] [place], [address] Monocytes/100 WBC (Bld) 18.9 % High 0-10 [facility] Comment on above: Performed By: #### L 100.0100, L500.2500 #### [facility] [address] [place], [address] Neutrophils/100 WBC (Bld) 51.5 % Normal 47-70 [facility] Comment on above: Performed By: #### L 100.0100, L500.2500 #### [facility] [address] [place], [address] Nucleated RBC (Bld) [#/Vol] 0 10*3/uL Normal 0-5 [facility] Comment on above: Performed By: #### L 100.0100, L500.2500 #### [facility] [address] [place], [address] Platelet mean volume (Bld) [Entitic vol] 10.9 fL Normal 6.2-12.0 [facility] Comment on above: Performed By: #### L 100.0100, L500.2500 #### [facility] [address] [place], [address] Platelets (Bld) [#/Vol] 201 10*3/uL Normal 150-450 [facility] Comment on above: Performed By: #### L 100.0100, L500.2500 #### [facility] [address] [place], [address] RBC (Bld) [#/Vol] 3.65 10*6/uL Low 4.6-6.2 [facility] Comment on above: Performed By: #### L 100.0100, L500.2500 #### [facility] [address] [place], [address] RDW SD 42.7 fl Normal 35.1-43.9 [facility] Comment on above: Performed By: #### L 100.0100, L500.2500 #### [facility] [address] [place], [address] WBC (Bld) [#/Vol] 6.6 10*3/uL Normal 4.4-11.0 [facility] Comment on above: Performed By: #### L 100.0100, L500.2500 #### [facility] [address] [place], [address] CNPDionne 03-06-2025 [facility] Telephone (AGGENS4) JEANIE RANKIN ([id number]) 1940 M Date Time Provider Department 03/06/25 JOSE HAYES4 During your visit today, we recorded the following information about you: Constantino Gonzalez 03/06/2025 10:20 AM Signed Spoke with pt's . Pt scheduled on 03/18 at 2 pm for 2 wk post op f/u ( per Dr Hayes). Doctor wants to see pt while in facility. aware that facility would need to transport pt. Pt's is on the way to facility and will let facility know, so that transportation can be worked out. Allergies As of Date: 03/06/2025 Noted Allergy Reaction ADHESIVE 03/18/2009 NEOSPORIN (MFJFITCO-[id number]-VB*08/0 07/2005 2 - Rash 9 - Itching Date Reviewed: 03/04/2025 Reviewed by: Carlita Merritt RN - Fully Assessed Prescriptions as of 03/06/2025 - pantoprazole DR (PROTONIX) 40 mg tablet Take 1 tablet by mouth two times a day before meals at 6 am and 4 pm. - aspirin 81 mg chewable tablet Take 1 tablet by mouth once daily. - metoprolol tartrate, short acting, (LOPRESSOR) 25 mg tablet Take 1 tablet by mouth every 12 hours. - oxyCODONE IR (ROXICODONE) 5 mg immediate release tablet Take 1 tablet by mouth every 6 hours as needed for pain for up to 3 days. - testosterone (ANDROGEL) 25 mg/ 2.5g (1%) GlPk Apply 2.5 g to affected area once daily. APPLY TO CLEAN, DRY, INTACT SKIN OF THE SHOULDERS AND UPPER ARMS - coenzyme Q10 (CO Q-10) 30 mg capsule Take 1 capsule by mouth once daily. - Cholecalciferol, Vitamin D3, 2,000 unit ORAL Tab Take by mouth. Take one(1) tablet daily. - lisinopril(PRINIVIL 10 MG TAB) Take one(1) tablet daily. - MULTIVITAMIN TAB Take one(1) tablet daily. 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] 07/19/2012 Gastric outlet obstruction (HCC) [K31.1] 02/25/2025 Abnormal EKG [R94.31] 02/26/2025 Pre-operative cardiovascular examination [Z01.8*02/26/2025 Demand ischemia (HCC) [I24.89] 02/26/2025 At risk for delirium [Z91.89] 02/27/2025 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 Address: [address] [place] [address] Performed By: #### 2 777-1, 08578-2, #### [facility] CLIA [id number] [address] [place] [address] [place] Calcium [Mass/Vol] 8.3 mg/dL Low 8.5-10.2 [facility] Comment on above: Order Comment: Speci men Type: BLOOD SPECIMEN Ordering Facility: [facility] Address: [address] [place] [address] Performed By: #### 2 777-1, 69519-1, #### [facility] CLIA [id number] [address] [place] [address] [place] Chloride [Moles/Vol] 102 mmol/L Normal 98-107 [facility] Comment on above: Order Comment: Speci men Type: BLOOD SPECIMEN Ordering Facility: [facility] Address: [address] [place] [address] Performed By: #### 2 777-1, , #### [facility] CLIA [id number] [address] [place] [address] [place] CO2 [Moles/Vol] 25 mmol/L Normal 22-30 [facility] Comment on above: Order Comment: Speci men Type: BLOOD SPECIMEN Ordering Facility: [facility] Address: [address] [place] [address] Performed By: #### 2 777-1, , #### [facility] CLIA [id number] [address] [place] Creatinine [Mass/Vol] 0.35 mg/dL Low 0.73-1.22 [facility] Comment on above: Order Comment: Speci men Type: BLOOD SPECIMEN Ordering Facility: [facility] Address: [address] [place] [address] Performed By: #### 2 777-1, , #### [facility] CLIA [id number] [address] [place] eGFRcr SerPlBld CKD-EPI 2020 111 mL/min/1.73m??? Normal >=60 [facility] Comment on above: Order Comment: Speci men Type: BLOOD SPECIMEN Ordering Facility: [facility] Address: [address] [place] [address] Result Comment: Genet mated Glomerular Filtration Rate (eGFR) is calculated using the 2020 CKD-EPI creatinine equation. This equation utilizes serum creatinine, sex, and age as parameters. The creatinine assay has traceable calibration to isotope dilution-mass spectrometry. Refer to KDIGO guidelines for clinical interpretation. In patients with unstable renal function, e.g. those with acute kidney injury, the eGFR may not accurately reflect actual GFR. Performed By: #### 2 777-1, , #### [facility] CLIA [id number] [address] [place] Glucose [Mass/Vol] 126 mg/dL High 74-99 [facility] Comment on above: Order Comment: Speci men Type: BLOOD SPECIMEN Ordering Facility: [facility] Address: [address] [place], [place] [address] Result Comment: The [place] Diabetes [employer] (ADA) provides guidance for cutoff values for fasting glucose and random glucose. The ADA defines fasting as no caloric intake for at least 8 hours. Fasting plasma glucose results between 100 to 125 mg/dL indicate increased risk for diabetes (prediabetes). Fasting plasma glucose results greater than or equal to 126 mg/dL meet the criteria for diagnosis of diabetes. In the absence of unequivocal hyperglycemia, results should be confirmed by repeat testing. In a patient with classic symptoms of hyperglycemia or hyperglycemic crisis, random plasma glucose results greater than or equal to 200 mg/dL meet the criteria for diagnosis of diabetes. Reference: Standards of Medical Care in Diabetes 2016, [place] [employer]. Diabetes Care. 2016.39(Suppl 1). Performed By: #### 2 777-1, 48156-7, #### [facility] CLIA [id number] [address] [place] [address] [place] Potassium [Moles/Vol] 5.0 mmol/L Normal 3.7-5.1 [facility] Comment on above: Order Comment: Melia zuluaga Type: BLOOD SPECIMEN Ordering Facility: [facility] Address: [address] [place], [place] [address] Performed By: #### 2 777-1, , #### [employer] [employer] [facility] CLIA [id number] [address] [place] [address] [place] Sodium [Moles/Vol] 136 mmol/L Normal 136-144 [facility] Comment on above: Order Comment: Melia zuluaga Type: BLOOD SPECIMEN Ordering Facility: [facility] Address: [address] [place], [place] [address] Performed By: #### 2 777-1, , #### [employer] [facility] CLIA [id number] [address] [place] [address] [place] Urea nitrogen [Mass/Vol] 15 mg/dL Normal 9-24 [facility] Comment on above: Order Comment: Melia zuluaga Type: BLOOD SPECIMEN Ordering Facility: [facility] Address: [address] [place] [address] Performed By: #### 2 777-1, 31321-1, 14961-7 #### [facility] CLIA [id number] [address] [place] [address] [place] CBC W Auto Differential pane l (Bld)on 03-05-2025 Basophils (Bld) [#/Vol] 10*3/uL Normal <0.11 [facility] Comment on above: Order Comment: Speci men Type: BLOOD SPECIMEN Ordering Facility: [facility] Address: [address] [place] [address] Performed By: #### 5 8410-2 #### [facility] CLIA [id number] [address] [place] Basophils/100 WBC (Bld) 0.2 % Normal [facility] Comment on above: Order Comment: Speci men Type: BLOOD SPECIMEN Ordering Facility: [facility] Address: [address] [place] [address] Performed By: #### 5 8410-2 #### [facility] CLIA [id number] [address] Differential cell count method Nom (Bld) Auto Normal [facility] Comment on above: Order Comment: Speci men Type: BLOOD SPECIMEN Ordering Facility: [facility] Address: [address] [place] [address] Performed By: #### 5 8410-2 #### [facility] CLIA [id number] [address] [place] Eosinophils (Bld) [#/Vol] 10*3/uL Normal <0.46 [facility] Comment on above: Order Comment: Speci men Type: BLOOD SPECIMEN Ordering Facility: [facility] Address: [address] [place] [address] Performed By: #### 5 8410-2 #### [facility] CLIA [id number] [address] [place] Eosinophils/100 WBC (Bld) 0.0 % Normal [facility] Comment on above: Order Comment: Speci men Type: BLOOD SPECIMEN Ordering Facility: [facility] Address: [address] [place] [address] Performed By: #### 5 8410-2 #### [facility] CLIA [id number] [address] Erythrocyte distribution width (RBC) [Ratio] 12.3 % Normal 11.5-15.0 [facility] Comment on above: Order Comment: Speci men Type: BLOOD SPECIMEN Ordering Facility: [facility] Address: [address] [place] [address] Performed By: #### 5 8410-2 #### [facility] CLIA [id number] [address] [place] Hematocrit (Bld) [Volume fraction] 38.2 % Low 39.0-51.0 [facility] Comment on above: Order Comment: Speci men Type: BLOOD SPECIMEN Ordering Facility: [facility] Address: [address] [place] [address] Performed By: #### 5 8410-2 #### [facility] CLIA [id number] [address] [place] Hemoglobin (Bld) [Mass/Vol] 12.8 g/dL Low 13.0-17.0 [facility] Comment on above: Order Comment: Speci men Type: BLOOD SPECIMEN Ordering Facility: [facility] Address: [address] [place] [address] Performed By: #### 5 8410-2 #### [facility] CLIA [id number] [address] [place] Immature granulocytes (Bld) [#/Vol] 0.08 10*3/uL Normal <0.10 [facility] Comment on above: Order Comment: Speci men Type: BLOOD SPECIMEN Ordering Facility: [facility] Address: [address] [place] [address] Performed By: #### 5 8410-2 #### [facility] CLIA [id number] [address] Immature granulocytes/100 WBC (Bld) 0.7 % Normal [facility] Comment on above: Order Comment: Speci men Type: BLOOD SPECIMEN Ordering Facility: [facility] Address: [address] [place] [address] Performed By: #### 5 8410-2 #### [facility] CLIA [id number] [address] Lymphocytes (Bld) [#/Vol] 0.82 10*3/uL Low 1.00-4.00 [facility] Comment on above: Order Comment: Speci men Type: BLOOD SPECIMEN [facility] Facility: [facility] Address: [address] [place] [address] Performed By: #### 5 8410-2 #### [facility] CLIA [id number] [address] Lymphocytes/100 WBC (Bld) 7.1 % Normal [facility] Comment on above: Order Comment: Speci men Type: BLOOD SPECIMEN [facility]ing Facility: [facility] Address: [address] [place] [address] Performed By: #### 5 8410-2 #### [facility] CLIA [id number] [address] MCH (RBC) [Entitic mass] 31.5 pg Normal 26.0-34.0 [facility] Comment on above: Order Comment: Speci men Type: BLOOD SPECIMEN Ordering Facility: [facility] Address: [address] [place] [address] Performed By: #### 5 8410-2 #### [facility] CLIA [id number] [address] MCHC (RBC) [Mass/Vol] 33.5 g/dL Normal 30.5-36.0 [facility] Comment on above: Order Comment: Speci men Type: BLOOD SPECIMEN [facility]ing Facility: [facility] Address: [address] [place] [address] Performed By: #### 5 8410-2 #### [facility] CLIA [id number] [address] [place] MCV (RBC) [Entitic vol] 94.1 fL Normal 80.0-100.0 [facility] Comment on above: Order Comment: Speci men Type: BLOOD SPECIMEN [facility]ing Facility: [facility] Address: [address] [place] [address] Performed By: #### 5 8410-2 #### [facility] CLIA [id number] [address] [place] Monocytes (Bld) [#/Vol] 1.40 10*3/uL High <0.87 [facility] Comment on above: Order Comment: Speci men Type: BLOOD SPECIMEN [facility]ing Facility: [facility] Address: [address] [place] [address] Performed By: #### 5 8410-2 #### [facility] CLIA [id number] [address] [place] Monocytes/100 WBC (Bld) 12.1 % Normal [facility] Comment on above: Order Comment: Speci men Type: BLOOD SPECIMEN [facility]ing Facility: [facility] Address: [address] [place] [address] Performed By: #### 5 8410-2 #### [facility] CLIA [id number] [address] [place] Neutrophils (Bld) [#/Vol] 9.27 10*3/uL High 1.45-7.50 [facility] Comment on above: Order Comment: Speci men Type: BLOOD SPECIMEN [facility]ing Facility: [facility] Address: [address] [place] [address] Performed By: #### 5 8410-2 #### [facility] CLIA [id number] [address] [place] Neutrophils/100 WBC (Bld) 79.9 % Normal [facility] Comment on above: Order Comment: Speci men Type: BLOOD SPECIMEN [facility]ing Facility: [facility] Address: [address] [place] [address] Performed By: #### 5 8410-2 #### [facility] CLIA [id number] [address] Nucleated RBC (Bld) [#/Vol] 10*3/uL Normal <0.01 [facility] Comment on above: Order Comment: Speci men Type: BLOOD SPECIMEN [facility]ing Facility: [facility] Address: [address] [place] [address] Performed By: #### 5 8410-2 #### [facility] CLIA [id number] [address] [place] Nucleated RBC/100 WBC (Bld) [Ratio] 0.0 /100 WBC Normal [facility] Comment on above: Order Comment: Speci men Type: BLOOD SPECIMEN [facility]ing Facility: [facility] Address: [address] [place] [address] Performed By: #### 5 8410-2 #### [facility] CLIA [id number] [address] Platelet mean volume (Bld) [Entitic vol] 11.0 fL Normal 9.0-12.7 [facility] Comment on above: Order Comment: Speci men Type: BLOOD SPECIMEN Ordering Facility: [facility] Address: [address] [place] [address] Performed By: #### 5 8410-2 #### [facility] CLIA [id number] [address] [place] Platelets (Bld) [#/Vol] 187 10*3/uL Normal 150-400 [facility] Comment on above: Order Comment: Speci men Type: BLOOD SPECIMEN [facility]ing Facility: [facility] Address: [address] [place] [address] Performed By: #### 5 8410-2 #### [facility] CLIA [id number] [address] [place] RBC (Bld) [#/Vol] 4.06 10*6/uL Low 4.20-6.00 [facility] Comment on above: Order Comment: Speci men Type: BLOOD SPECIMEN Ordering Facility: [facility] Address: [address] [place] [place] [id number] Performed By: #### 5 8410-2 #### [facility] CLIA [id number] [address] WBC (Bld) [#/Vol] 11.59 10*3/uL High 3.70-11.00 [facility] Comment on above: Order Comment: Melia margareth Type: BLOOD SPECIMEN [facility]ing Facility: [facility] Address: [address] [place] [id number] Performed By: #### 5 8410-2 #### [facility] CLIA [id number] [address] CNDSon 03-05-2025 CNDS HNO ID: [id number] Author: ANNE STUBBS DO Service: General Surgery Author Type: Resident Type: Discharge Summary Filed: 03/05/2025 13:14 Note Text: Attestation signed by Jose Hayes MD at 03/05/2025 5:02 PM Attending Note I evaluated the patient and personally participated in the [place] components. I agree with the resident's findings and plan with the following revisions and/or additions: Tolerating liquids Ok for dc to facility Signature: Jose Hayes MD Date: 03/05/2025 Time: 5:02 PM DISCHARGE SUMMARY PATIENT NAME: Jeanie Rankin Code Status: Full Code Highest Readmission Risk Score: 15 The 30 day readmissions risk score is derived from an internally validated risk model which evaluates patient level characteristics, utilization history, medication orders and lab results up until the day of discharge. Patients with a score of 39 or above are considered highest risk for readmission. Specific patient level drivers will be listed at the bottom of the summary. Admission Information Admission Information ADMIT DATE: 02/24/2025 DISCHARGE DATE: 03/05/2025 MY DOCTORS AND MEDICAL TEAM: My Main Hospital Doctor: Jose Hayes MD Primary Care Provider: No primary care provider on file. My Medical Team Members: Treatment Team: Attending Provider: Jose Hayes MD Primary Service: [facility] Attending: Deisi Villalta MD Consulting: Garry Watts MD Consulting: Jose Haeys MD MY CONDITION AT DISCHARGE: stable REASON I WAS IN THE HOSPITAL: paraesophageal hernia SUMMARY OF WHAT HAPPENED WHILE I WAS IN THE HOSPITAL: Patient was admitted on 02/25 with abdominal pain, nausea and vomiting. CT AP revealed a large hiatal hernia with gastric outlet obstruction. Patient underwent an EGD with the GI team which revealed swelling of the pylorus with difficulty insufflating into the duodenum given the narrowing. Patient opted for surgical repair. Cardiology was consulted for preoperatively assessment and a stress test was ordered which was abnormal. Cardiology recommended medical optimization and deemed patient high risk but stable for surgery. Patient and still wished to proceed with surgery. He ultimately underwent robotic paraesophageal hernia repair on 03/04. He tolerated the procedure well without issues and was transferred back to regular nursing floor. His diet was advanced to anti-reflux FLD. He was deemed stable for discharge on 03/05/2025 for SNF. OTHER PROBLEMS/DIAGNOSIS: Principal Problem: Gastric outlet obstruction (HCC) Active Problems: Primary hypertension Abnormal EKG Pre-operative cardiovascular examination Demand ischemia (HCC) At risk for delirium IBM (inclusion body myositis) (HCC) Goals of care, counseling/discussion Frailty syndrome in geriatric patient Constipation Abnormal stress test Severe protein-calorie malnutrition (HCC) Incarcerated hiatal hernia Resolved Problems: * No resolved hospital problems. * OPERATIONS PERFORMED WHILE IN THE HOSPITAL: see above IMPORTANT TEST/PROCEDURES: see above TEST RESULTS NOT AVAILABLE AT THIS TIME: No pending results Discharge Disposition Activity When You Leave the Hospital Lifting is restricted to: Do not lift over 10-15 pounds for 4 weeks No walking restrictions Diet Instructions Drink 6 to 8 glasses of fluids per day Resume your pre-hospital diet For Pain When You Leave the Hospital If you become constipated, you may use any gdup-jpb-owviepk treatment such as Milk of Magnesia, Sennakot, Prune Juice, Suppositories, etc. in addition to the stool softener/fiber supplement No alcohol or driving while on pain medication Use acetaminophen (Tylenol) as recommended on the bottle Use the dispensed medication (see prescription) Wound/Surgical Site Care Leave open to air Some bleeding from the wound/surgical site can be expected. If you soak a gauze bandage in one hour, see a doctor at once Wash your hands frequently, especially before touching your incision, after using restroom and before eating Call Your Doctor If There is an unusual odor from the wound area There is severe pain at the operative site You have a severe headache You have difficulty urinating or pain when urinating You have lightheadedness, fainting, or confusion You have pain and swelling in your legs, especially if it is only on one side and not the other You have pain with urination, cloudy urine or foul smelling urine You have persistent nausea/vomiting over 24 hours You have persistent or heavy bleeding You have redness, swelling, pus or drainage from the wound You have swollen glands or cold and clammy skin Your temperature is greater than 101F Follow Up Appointments Follow-up Appoint (more content not included)... Normal [facility] THERAPY NTon 03-05-2025 THERAPY NT HNO ID: [id number] Author: CUCA PEREZ PT Service: Physical Therapy Author Type: Physical Therapist Type: Therapy (PT/OT/Speech/Resp) Filed: 03/05/2025 10:08 Note Text: Physical Therapy Treatment Summary SERVICE DATE: 03/05/2025 SERVICE TIME: 900 to 936 ROOM: [id number] PT 6 Clicks Score: 9 DISCHARGE RECOMMENDATIONS Subacute/SNF Recommended Discharge Disposition Comments: pt was unable to take steps and will benefit from continued P.T. in the post acute inpatient setting Anticipated Discharge Needs: Physical Assist at Home Physical Assist at Home for: Transfers, Ambulation, Cleaning, Laundry, Meals, Medication Management, Safety, Self Care, Shopping, Transportation ASSESSMENT Response to Therapy Interventions: Good Participation in Activities, Low Activity Tolerance, Multiple Ongoing Medical Issues Patient with ongoing weakness and is unable to stand and ambulate. Pt will benefit from continued therapy in the post-acute inpatient facility at d/c Re-eval completed and goals updated PRECAUTIONS Bed/Chair Alarm, Fall Risk CURRENT HOSPITAL COURSE presented to [facility] with abdominal pain, nausea and vomitting--found to have 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; s/p EGD 02/26; s/p surgical robotic assisted laparoscopicrepair of paraesophageal hernia. Relevant Past Medical History: esophagitis, lymphoma, OP, anemia, myalgia/myositis--inclusion body myositis HOME LIVING Patient Lives With: Spouse Assistance Available: Part-Time Entry To Home: Stairs (with stair lift) Number Of Stairs Into Home: (stair lift) Equipment Owned: Lift Chair, Rollator, Shower Chair, Commode- Raised PRIOR FUNCTIONAL LEVEL Required Assistance Assistance Required With: Cleaning, Laundry, Meals, Shopping, Transportation pt very particular about equipment, set up, his AD--pt walks around pool table every time he uses restroom--50 steps and completes 6-7 times per day SUBJECTIVE willing to participate THERAPY DIAGNOSIS Reduced mobility-other, Muscle Weakness (generalized), Unsteadiness on feet, Abnormalities of gait and mobility-other TREATMENT INTERVENTIONS Reevaluation, Therapeutic Exercise (17316), Therapeutic Activity (64768) Timed Code Treatment (minutes): 10 Skilled Treatment Time (minutes): 34 $ Reevaluation (55786) Billed Units: 1 unit Therapeutic Exercise (61538) Treatment Minutes: 8 $ Therapeutic Exercise (77803) Billed Units: 1 unit Bilateral LE anti-gravity exercises. Patient needed assist with DF and knee ext as he is unable to complete either. 10 reps Therapeutic Activity (23612) Treatment Minutes: 2 $ Therapeutic Activity (84871) Billed Units: 0 units Directed in bed mobility and scooting in sitting to position for attempt to stand. Patient unable to come to stand. Patient reporting that he needs to use his rollator-like assistive to be most successful TRAINING AND EDUCATION PROVIDED Bed Mobility, Benefits of In-Hospital Mobility, Discharge Planning, Equipment, Falls Prevention, Home Safety, Positioning, Role of Physical Therapy, Sitting Balance, Transfers THERAPEUTIC SKILLS USED Activity Dosing, Assessment of Tolerance Including Vitals Response to Activity, Cues for Sequencing/Proper Technique for Activity, Physical Assist, Movement Facilitation FUNCTIONAL STATUS Bed Mobility Supine To Sit: Moderate Assistance, Additional Information pt able to bring LEs toward EOB--needed assist to complete; pt able to initiate bringing trunk into upright position--needed assist to complete Sit to Supine: Maximal Assistance, Additional Information needed assist at LEs and trunk to return to supine Scooting: Stand By Assistance, Maximal Assistance, Additional Information pt able to scoot to EOB on own but to scoot back in bed needs max Ax2 to reposition in bed Transfers Sit To Stand: Maximal Assistance, Additional Information Bed height elevated fully. Pt holding weight scale for the sturdy rails. Pt unable to come to stand as he was unable to lock knees back and reporting he is unable to inverter and clipper the rails as they do not extend back far enough Stand To Sit: Maximal Assistance, Additional Information (x2) Bed to Chair Gait Stairs GOALS Transfer Sit to/from Stand with: Minimal Assistance (height of bed fully elevated with his rollator walker from home) Ambulate with: Contact Guard Assistance Distance: 20' Device: Rollator Goal: x12 reps bilat LE AAROM exericses in supine Rehab Potential: Fair Progress Toward Goals: Progressing slower than expected ACUTE CARE TREATMENT PLAN PT Frequency: 5 Times Per Week (3-5) Treatment Interventions: Education, Joint Mobility, Strengthening, Functional Mobility Training, Balance Training SIGNATURE: Cuca Perez PT PATIENT NAME: Jeanie Rankin DATE: March 05, 2025 TIME: 10:04 AM [facility] ANES PRE-OPon 03-04-2025 ANES PRE-OP HNO ID: [id number] Author: NAYA AGUILERA MD Service: Anesthesiology Author Type: Physician Type: Anesthesia Preprocedure Evaluation Filed: 03/04/2025 16:31 Note Text: ANESTHESIOLOGY DAY OF SURGERY NOTE : 1940 Procedure Information Anesthesia Start Date/Time: 03/04/25 1508 Procedure: ROBOTIC LAPAROSCOPIC RPR PARAESOHAGEAL HERNIA W/ FUNDOPLASTY W/ MESH (Abdomen) [place] Surgeons: Jose Hayes MD Estimated body mass index is 20.9 kg/m? as calculated from the following: Height as of this encounter: 175.3 cm (5' 9"). Weight as of this encounter: 64.2 kg (141 lb 8.6 oz). 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 Tracheostomy tube not present Mallampati: II. TM distance: >3 FB. Neck ROM: full ROM without neurological symptoms. Mouth opening: <2 FB. Short neck: no. Thick neck: no II - ANESTHESIA PLAN ASA Score: 3 Anesthetic Plan: general Airway type: ETT Monitoring Plan Monitoring plan: standard ASA. Post Procedure Analgesic Plan Postoperative analgesic plan: parenteral or oral opioids. Informed Consent Anesthetic risks, benefits, alternatives, personnel and consent discussed: yes. Patient / Responsible [employer] Party agrees to proceed: yes Patient / Surrogate agrees to blood products: Yes Vitals Value Taken Time BP 159/60 03/04/25 14:37 Pulse 59 03/04/25 14:37 Resp 16 03/04/25 14:37 Temp 36.5 ?C (97.7 ?F) 03/04/25 14:37 SpO2 97 % 03/04/25 14:37 Facility-Administered Medications as of 03/04/2025 Medication Dose Route Frequency bupivacaine-EPINEPHrine (PF) 0.5 %-1:200,000 injection (SENSORCAINE MPF/EPINEPHrine) X (OR/PROCEDURE) PRN water for irrigation irrigation X (OR/PROCEDURE) PRN [Transfer Hold] sodium chloride 0.65 % 2 spray 2 spray EACH NOSTRIL BID [Transfer Hold] dextrose 5% in NaCl 0.45% iv infusion 30-150 mL/hr INTRAVENOUS PRN [] Parenteral Nutrition - Adult INTRAVENOUS ONCE PN (1800 START) [] lactated ringers iv infusion 50 mL/hr INTRAVENOUS CONTINUOUS [Transfer Hold] metoprolol tartrate (short acting) 25 mg tab(s) (LOPRESSOR) 25 mg ORAL q 12 H [COMPLETED] potassium chloride iv piggyback 20 mEq/100 mL 20 mEq INTRAVENOUS ONCE [Transfer Hold] bisacodyl 10 mg suppository (DULCOLAX) 10 mg RECTAL q 72 HR [Transfer Hold] acetaminophen 1,000 mg CUP (TYLENOL) 1,000 mg ORAL q 6 H [Transfer Hold] morphine 2 mg injection 2 mg INTRAVENOUS q 4 H PRN [Transfer Hold] oxyCODONE 5 mg oral liquid (ROXICODONE) 5 mg ORAL q 4 H PRN [Transfer Hold] enoxaparin 40 mg injection (LOVENOX) 40 mg SUBCUTANEOUS q 24 HR [Transfer Hold] lisinopril 10 mg tab(s) (ZESTRIL) 10 mg ORAL DAILY [Transfer Hold] aspirin 81 mg chewable tab(s) 81 mg ORAL DAILY [COMPLETED] potassium chloride iv piggyback 20 mEq/100 mL 20 mEq INTRAVENOUS q 1 H [] sodium chloride 0.9 % (flush) 2-10 mL (BD POSIFLUSH) 2-10 mL INTRAVENOUS DIRECTED PRN And [COMPLETED] perflutren lipid microspheres 1.1 mg/mL 1.3 mL injection (DEFINITY) 1.3 mL INTRAVENOUS DIRECTED PRN [COMPLETED] potassium chloride iv piggyback 20 mEq/100 mL 20 mEq INTRAVENOUS ONCE [Transfer Hold] NaCl 0.9% iv flush bag 20 mL INTRAVENOUS PRN [COMPLETED] potassium chloride iv piggyback 20 mEq/100 mL 20 mEq INTRAVENOUS ONCE [COMPLETED] NaCl 0.9% 1,000 mL iv bolus 1,000 mL INTRAVENOUS ONCE [] lactated ringers iv infusion 75 mL/hr INTRAVENOUS CONTINUOUS [Transfer Hold] ondansetron (PF) 4 mg injection (ZOFRAN) 4 mg INTRAVENOUS q 6 H PRN Outpatient Medications as of 03/04/2025 Medication Sig testosterone (ANDROGEL) 25 mg/ 2.5g (1%) GlPk Apply 2.5 g to affected area once daily. APPLY TO CLEAN, DRY, INTACT SKIN OF THE SHOULDERS AND UPPER ARMS coenzyme Q10 (CO Q-10) 30 mg capsule Take 1 capsule by mouth once daily. Cholecalciferol, Vitamin D3, 2,000 unit ORAL Tab Take by mouth. Take one(1) tablet daily. lisinopril(PRINIVIL 10 MG TAB) Take one(1) tablet daily. MULTIVITAMIN TAB Take one(1) tablet daily. I have interviewed and examined the patient. I have reviewed the medical record and/or the pre-anesthesia evaluation, pertinent labs, and test results. This contains updated information obtained within 48 hours of Surgery/Procedure. SIGNATURE: Naya Aguilera MD PATIENT NAME: Jeanie Rankin DATE: March 04, 2025 TIME: 4:28 PM CSN: [id number] Normal [facility] Basic metabolic 2000 panelon 03-04-2025 Anion gap [Moles/Vol] 9 mmol/L Normal 8-15 [facility] Comment on above: Order Comment: Speci men Type: BLOOD SPECIMEN [facility] Facility[facility] Address: [address] [place] [address] Performed By: #### 5 8410-2 #### [facility] CLIA [id number] 1 [place] [address] [place] Calcium [Mass/Vol] 8.9 mg/dL Normal 8.5-10.2 [facility] Comment on above: Order Comment: Speci men Type: BLOOD SPECIMEN [facility] Facility: [facility] Address: [address] [place] [address] Performed By: #### 5 8410-2 #### [facility] CLIA [id number] 1 [place] [address] [place] Chloride [Moles/Vol] 105 mmol/L Normal 98-107 [facility] Comment on above: Order Comment: Speci men Type: BLOOD SPECIMEN [facility] Facility: [facility] Address: [address] [place] [address] Performed By: #### 5 8410-2 #### [facility] CLIA [id number] 1 [place] [address] [place] CO2 [Moles/Vol] 24 mmol/L Normal 22-30 [facility] Comment on above: Order Comment: Speci men Type: BLOOD SPECIMEN [facility] Facility[facility] Address: [address] [place] [address] Performed By: #### 5 8410-2 #### [facility] CLIA [id number] [address] [place] Creatinine [Mass/Vol] 0.30 mg/dL Low 0.73-1.22 [facility] Comment on above: Order Comment: Melia zuluaga Type: BLOOD SPECIMEN [facility] Facility: [facility] Address: [address] [place] [address] Performed By: #### 5 8410-2 #### [facility] CLIA [id number] [address] [place] eGFRcr SerPlBld CKD-EPI 2020 116 mL/min/1.73m??? Normal >=60 [facility] Comment on above: Order Comment: Melia zuluaga Type: BLOOD SPECIMEN [facility]ing Facility: [facility] Address: [address] [place] [address] Result Comment: Genet mated Glomerular Filtration Rate (eGFR) is calculated using the 2020 CKD-EPI creatinine equation. This equation utilizes serum creatinine, sex, and age as parameters. The creatinine assay has traceable calibration to isotope dilution-mass spectrometry. Refer to KDIGO guidelines for clinical interpretation. In patients with unstable renal function, e.g. those with acute kidney injury, the eGFR may not accurately reflect actual GFR. Performed By: #### 5 8410-2 #### [facility] CLIA [id number] [address] [place] Glucose [Mass/Vol] 102 mg/dL High 74-99 [facility] Comment on above: Order Comment: Melia zuluaga Type: BLOOD SPECIMEN [facility] Facility: [facility] Address: [address] [place] [address] Result Comment: The [place] Diabetes [employer] (ADA) provides guidance for cutoff values for fasting glucose and random glucose. The ADA defines fasting as no caloric intake for at least 8 hours. Fasting plasma glucose results between 100 to 125 mg/dL indicate increased risk for diabetes (prediabetes). Fasting plasma glucose results greater than or equal to 126 mg/dL meet the criteria for diagnosis of diabetes. In the absence of unequivocal hyperglycemia, results should be confirmed by repeat testing. In a patient with classic symptoms of hyperglycemia or hyperglycemic crisis, random plasma glucose results greater than or equal to 200 mg/dL meet the criteria for diagnosis of diabetes. Reference: Standards of Medical Care in Diabetes 2016, [place] [employer]. Diabetes Care. 2016.39(Suppl 1). Performed By: #### 5 8410-2 #### [facility] CLIA [id number] [address] Potassium [Moles/Vol] 4.3 mmol/L Normal 3.7-5.1 [facility] Comment on above: Order Comment: Speci men Type: BLOOD SPECIMEN [facility] Facility[facility] Address: [facility] [place] [address] Performed By: #### 5 8410-2 #### [facility] CLIA [id number] [address] Sodium [Moles/Vol] 138 mmol/L Normal 136-144 [facility] Comment on above: Order Comment: Speci men Type: BLOOD SPECIMEN [facility] Facility[facility] Address: [address] [place] [address] Performed By: #### 5 8410-2 #### [facility] CLIA [id number] [address] Urea nitrogen [Mass/Vol] 23 mg/dL Normal 9-24 [facility] Comment on above: Order Comment: Speci men Type: BLOOD SPECIMEN [facility] Facility[facility] Address: [address] [place] [address] Performed By: #### 5 8410-2 #### [facility] CLIA [id number] [address] CBC panel Auto (Bld)on 03-04 Erythrocyte distribution width (RBC) [Ratio] 12.4 % Normal 11.5-15.0 [facility] Comment on above: Order Comment: Speci men Type: BLOOD SPECIMEN [facility] Facility[facility] Address: [facility] [place] [address] Performed By: #### 5 8410-2 #### [facility] CLIA [id number] [address] Hematocrit (Bld) [Volume fraction] 36.3 % Low 39.0-51.0 [facility] Comment on above: Order Comment: Speci men Type: BLOOD SPECIMEN [facility] Facility[facility] Address: [address] [place] [address] Performed By: #### 5 8410-2 #### [facility] CLIA [id number] [address] OF [facility] Hemoglobin (Bld) [Mass/Vol] 12.6 g/dL Low 13.0-17.0 [facility] Comment on above: Order Comment: Speci men Type: BLOOD SPECIMEN [facility] Facility[facility] Address: [address] [place] [address] Performed By: #### 5 8410-2 #### [facility] CLIA [id number] [address] STATES OF [facility] MCH (RBC) [Entitic mass] 31.9 pg Normal 26.0-34.0 [facility] Comment on above: Order Comment: Speci men Type: BLOOD SPECIMEN [facility]ing Facility: [facility] Address: [address] [place] [address] Performed By: #### 5 8410-2 #### [facility] CLIA [id number] [address] STATES OF [facility] MCHC (RBC) [Mass/Vol] 34.7 g/dL Normal 30.5-36.0 [facility] Comment on above: Order Comment: Speci men Type: BLOOD SPECIMEN [facility]ing Facility: [facility] Address: [address] [place] [address] Performed By: #### 5 8410-2 #### [facility] CLIA [id number] [address] [place] MCV (RBC) [Entitic vol] 91.9 fL Normal 80.0-100.0 [facility] Comment on above: Order Comment: Speci men Type: BLOOD SPECIMEN [facility] Facility[facility] Address: [address] [place] [address] Performed By: #### 5 8410-2 #### [facility] CLIA [id number] [address] [place] Nucleated RBC (Bld) [#/Vol] 10*3/uL Normal <0.01 [facility] Comment on above: Order Comment: Speci men Type: BLOOD SPECIMEN [facility] Facility[facility] Address: [address] [place] [address] Performed By: #### 5 8410-2 #### [facility] CLIA [id number] [address] STATES [place] Platelet mean volume (Bld) [Entitic vol] 11.0 fL Normal 9.0-12.7 [facility] Comment on above: Order Comment: Speci men Type: BLOOD SPECIMEN [facility] Facility[facility] Address: [address] [place] [address] Performed By: #### 5 8410-2 #### [facility] CLIA [id number] [address] [place] Platelets (Bld) [#/Vol] 181 10*3/uL Normal 150-400 [facility] Comment on above: Order Comment: Speci men Type: BLOOD SPECIMEN [facility] Facility[facility] Address: [address] [place] [address] Performed By: #### 5 8410-2 #### [facility] CLIA [id number] [address] OF [place] RBC (Bld) [#/Vol] 3.95 10*6/uL Low 4.20-6.00 [facility] Comment on above: Order Comment: Speci men Type: BLOOD SPECIMEN [facility] Facility: [facility] Address: [address] [place] [address] Performed By: #### 5 8410-2 #### [facility] CLIA [id number] [address] [place] WBC (Bld) [#/Vol] 5.84 10*3/uL Normal 3.70-11.00 [facility] Comment on above: Order Comment: Speci men Type: BLOOD SPECIMEN [facility]ing Facility: [facility] Address: [address] [place], [place] [address] [address] Performed By: #### 5 8410-2 #### [facility] [id number] 1 [place] [address] [place] CONSULT PROGon 03-04-2025 CONSULT PROG HNO ID: [id number] Author: BLAINE CASIANO MD Service: General Surgery Author Type: Resident Type: Consult Progress Note Filed: 03/04/2025 08:14 Note Text: Attestation signed by Jose Hayes MD at 03/04/2025 1:28 PM Attending Note I evaluated the patient and personally participated in the l[place] components. I agree with the resident's findings and plan as documented and have discussed the case and management of the patient's care with the resident. Signature: Jose Hayes MD Date: 03/04/2025 Time: 1:28 PM Elective General Surgery (Green Surgery) Progress Note SERVICE DATE: March 04, 2025 Elective General Surgery (Green Surgery) Service Pager: For questions or concerns Mon-Fri 6a-5p please page [phone]. After 5pm and on Weekends and Holidays, please page [phone]. SUBJECTIVE: NAEON. Patient denies any nausea or vomiting. Reports continued passing of flatus and have bowel function. Plan for surgery today. Tolerating diet DIET NPO OBJECTIVE: Vitals: Temp (24hrs), Av.1 ?C (98.7 ?F), Min:36.3 ?C (97.3 ?F), Max:37.9 ?C (100.3 ?F) BP (!) 128/46 Pulse (!) 51 Temp 36.7 ?C (98.1 ?F) (Oral) Resp 16 Ht 175.3 cm (5' 9") Wt 64.2 kg (141 lb 8.6 oz) SpO2 95% BMI 20.90 kg/m? O2 Therapy: Room Air IANDO: Date 03/03/25 07 - 03/04/2565803/04/25 07 - 03/05/25 0659 Shift 3762-1059 4849-5507 0699-4864 24 Hour Total 8463-8194 2113-2515 8100-7823 24 Hour Total INTAKE PO 120 120 PO 120 120 Shift Total 120 120 OUTPUT Urine 938 182 9292 Void (ml) 458 271 9610 Urine Not Saved. 1 x 1 x # of BMs Stool Incontinence 1 x 1 x Number of BMs 0 x 0 x Shift Total 759 354 9303 Weight (kg) 64.2 64.2 64.2 64.2 64.2 64.2 64.2 64.2 MEDICATIONS: Current Facility-Administered Medications Medication Dose Route Frequency sodium chloride 0.65 % 2 spray 2 spray EACH NOSTRIL BID dextrose 5% in NaCl 0.45% iv infusion 30-150 mL/hr INTRAVENOUS PRN metoprolol tartrate (short acting) 25 mg tab(s) (LOPRESSOR) 25 mg ORAL q 12 H bisacodyl 10 mg suppository (DULCOLAX) 10 mg RECTAL q 72 HR acetaminophen 1,000 mg CUP (TYLENOL) 1,000 mg ORAL q 6 H morphine 2 mg injection 2 mg INTRAVENOUS q 4 H PRN oxyCODONE 5 mg oral liquid (ROXICODONE) 5 mg ORAL q 4 H PRN [Order Held by LIP] enoxaparin 40 mg injection (LOVENOX) 40 mg SUBCUTANEOUS q 24 HR [Order Held by LIP] lisinopril 10 mg tab(s) (ZESTRIL) 10 mg ORAL DAILY aspirin 81 mg chewable tab(s) 81 mg ORAL DAILY NaCl 0.9% iv flush bag 20 mL INTRAVENOUS PRN ondansetron (PF) 4 mg injection (ZOFRAN) 4 mg INTRAVENOUS q 6 H PRN Labs: Recent Labs 03/04/25 0452 03/03/25 0427 NA 138 132* K 4.3 4.0 CHLOR 105 101 CO2 24 22 BUN 23 20 CREAT 0.30* 0.31* GLUC 102* 103* ANION 9 9 CA 8.9 8.9 MG 1.8 1.8 P 2.9 3.0 WBC 5.84 8.85 HB 12.6* 13.1 HCT 36.3* 37.1* PLT 181 158 Physical Exam: GENERAL: resting comfortably, in no acute distress HEENT: normocephalic, atraumatic, EOMI NECK: trachea midline, no JVD LUNGS: Unlabored breathing, equal chest rise bilaterally CARDIAC: Regular rate, warm extremities, good perfusion throughout ABDOMEN: Soft, non-tender, non-distended. No rebound or guarding, . 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 Obstructive symptoms started roughly [address] significant for large hiatal hernia w/ stomach and duodenum and mentioned GOO. NG placement and repeat CT w/ satisfactory placement and decompression. Labs have been unremarkable. Hospital Course/Operations/Procedures : 03/04/2025 Procedure(s): ROBOTIC LAPAROSCOPIC RPR PARAESOHAGEAL HERNIA W/ FUNDOPLASTY W/ MESH Plan: GOO 2/2 Large Hiatal Hernia - Plan for surgery today for a full repair - Will assess Nutritional status post op and need for any further supplemental nutrition - Cards consulted for preop risk assessment: Stress test with moderate to mild ischemia, plan to medically manage and minimize OR time Lisinopril, Lopressor and ASA per cards - D (more content not included)... Normal [facility] Magnesium SerPl-mCncon 03-04 Magnesium [Mass/Vol] 1.8 mg/dL Normal 1.7-2.3 [facility] Comment on above: Order Comment: Speci men Type: BLOOD SPECIMEN [facility] Facility: [facility] Address: [facility] [place] [address] Performed By: #### 2 777-1, 96869-7, 30527-6 #### [facility] CLIA [id number] [address] OF [place] OPERATIVE NOon 03-04-2025 OPERATIVE NO HNO ID: [id number] Author: JOSE HAYES MD Service: General Surgery Author Type: Physician Type: Operative Report Filed: 03/04/2025 17:57 Note Text: OPERATIVE/PROCEDURE REPORT LOG ID: [id number] Surgery/Procedure Date: 03/04/2025 Incision/Procedure Start Time: 3:42 PM Incision Close/Procedure End Time: 5:57 PM Surgeon(s)/Proceduralist(s) and Rotary Screen Printing Machine Operator(s): Surgeons and Role: * Jose Hayes MD - Primary * Scott Yoo MD - Resident - Assisting Board Setter: Monse Serrano SA Procedure(s): 1.- Robotic assisted laparoscopic repair of paraesophageal hernia 2.- EGD 3.- Placement of Enform mesh 4.- Bilateral Laparoscopic TAP Blocks Anesthesia: General Pre-Op/Pre-Procedure Diagnosis: 1. Paraesophageal Hernia, Type 4 2. Esophagitis 3. Olivier's ulcers 4. Gastric outlet obstruction Post-Op/Post-Procedure Diagnosis: 1. Paraesophageal Hernia, Type 4 2. Esophagitis 3. Olivier's ulcers 4. Gastric outlet obstruction Operative Findings: Large type 4 paraesophageal hernia with entire stomach and duodenum herniated as well as omentum Reduced and hiatus closed over 40 F bougie with Enform mesh placement Operative Indication: Jeanie Rankin is a 84 year old male that presented with a symptomatic paraesophageal hernia and gastric outlet obstruction. We discussed the risks, benefits, alternatives, and potential complications, and the patient agreed to proceed. Procedure Details: In the pre-operative area a safety huddle was performed which included the nursing, anesthesia, and surgical teams; all members in attendance verified the correct patient, date of , MRN, and procedure to be performed. The patient was then taken to the operating room and placed supine on the operating table. General endotracheal anesthesia was induced. The patient's extremities were secured to the operating room table; a pillow was placed under his knees; and all pressure points were appropriately padded. The abdomen was prepped and draped in the standard sterile fashion. A surgical time out was performed. A 5-mm incision was made in the right upper quadrant. The abdomen was entered using a 5-mm Optiview trocar. The abdomen was insufflated with carbon dioxide to a pressure of 15 mmHg without complication. The laparoscope was introduced and the peritoneal cavity was inspected. No injuries were identified during initial entry into the abdomen. Under direct vision, 8-mm robotic trocars were placed in the left upper quadrant, left mid-abdomen, and just above and lateral to the umbilicus. The 5-mm RUQ Optiview trocar was exchanged to an 8-mm robotic trocar. The patient was placed in steep reverse Trendelenburg position. The da Candelario robot was brought in the surgical field and docked to the patient. The [place] internal liver retraction was placed in triangulation technique. We encountered a type 4 paraesophageal hernia. At this point, we directed our attention to the gastrohepatic ligament. This was divided using the robotic vessel sealer and the right vilma was identified. The peritoneum overlying the right vilma was opened and dissection carried circumferentially towards the left vilma. The edge of the hernia sac was grasped and pulled inferiorly and with blunt dissection, the sac was released from the mediastinal adhesions. This was then repeated on the left side. At this point, we proceeded to divide the short gastric vessels. The robotic vessel sealer was used to divide the gastrocolic ligament and dissection was continued cephalad towards the left vilma. At this point, the hernia sac was completely released from the left crural attachments. With repeat blunt dissection, we were able to obtain adequate esophageal length. The retroesophageal space was then divided and a Jose C drain was passed and secured for retraction. Again, we proceeded with circumferential dissection in the mediastinum with the esophagus until the hernia sac was completely reduced and we obtained 2 cm of intraabdominal esophagus with no tension. At this point, the hernia defect was measured and it was 12 cm. A 40 [place] VISIGI bougie had been previously placed into the esophagus to splint the esophagus and identify it during dissection as well as to prevent it from injury. The anterior and posterior vagus nerves were also identified and care was taken to preserve them. There appeared to be a thermal dissection next to the posterior with possible injury however anterior was completely intact. A posterior cruroplasty was then performed using a running 2-0 permanent monofilament suture over our bougie. After completion, the crura were approximated properly with no tension on the esophagus.A 10 x 10 cm Enform mesh was cut out in the shape of a C and secured with 2-0 vicryl suture on to the diaphragm around the esophagus to enforce our closure. The bougie was removed and EGD was then performed and (more content not included)... Normal [facility] Phosphate SerPl-mCncon 03-04 Phosphate [Mass/Vol] 2.9 mg/dL Normal 2.7-4.8 [facility] Comment on above: Order Comment: Speci men Type: BLOOD SPECIMEN [facility] Facility[facility] Address: [address] [place] [address] Performed By: #### 2 777-1, 93693-7, 99089-9 #### [facility] CLIA [id number] [address] [place] [address] OF [facility] THERAPY NTon 03-04-2025 THERAPY NT HNO ID: [id number] Author: MIGUEL CARDENAS CCC-SLP Service: Speech/Swallow Author Type: Speech Language Pathologist Type: Therapy (PT/OT/Speech/Resp) Filed: 03/04/2025 08:49 Note Text: SPEECH THERAPY MISSED VISIT SERVICE DATE: 03/04/2025 SERVICE TIME: 848 ROOM: [place] [address] Patient not seen due to Test / Procedure: OR. Will re-attempt speech/swallowing therapy at a later date/time. SIGNATURE: IDA Tam PATIENT NAME: Jeanie Rankin DATE: March 04, 2025 TIME: 8:49 AM Normal [facility] ALLIED HEALTHon 03-03-2025 ALLIED HEALTH HNO ID: [id number] Author: TIMMY CHAHAL Chaplain Service: Spiritual Care Author Type: Type: Allied Health Filed: 03/03/2025 17:18 Note Text: SPIRITUAL CARE PROGRESS NOTE SERVICE DATE: 03/03/2025 SERVICE TIME: 5pm Wool Sacker attempted to offer support, but pt was sleeping To contact the Spiritual Care Department: Please call . SIGNATURE: Chaplain Vlad PATIENT NAME: Jeanie Rankin DATE: March 03, 2025 TIME: 5:17 PM PAGER/CONTACT #: [phone] Normal [facility] Basic metabolic 2000 panelon 03-03-2025 Anion gap [Moles/Vol] 9 mmol/L Normal 8-15 [facility] Comment on above: Order Comment: Speci men Type: BLOOD SPECIMENOrdering Facility: [facility] Address: [address] [place] [address] Performed By: #### 2 4321-2, 48352-8, 2777-1, 257-8 ####[facility] [id number] [place] [address] [place] Calcium [Mass/Vol] 8.9 mg/dL Normal 8.5-10.2 [facility] Comment on above: Order Comment: Speci men Type: BLOOD SPECIMENOrdering Facility: [facility] Address: [address] [place] [address] Performed By: #### 2 4321-2, 97467-5, 2777-1, 2571-8 ####[facility] [id number] [place] [address] [place] Chloride [Moles/Vol] 101 mmol/L Normal 98-107 [facility] Comment on above: Order Comment: Speci men Type: BLOOD SPECIMENOrdering Facility: [facility] Address: [address] [place] [address] Performed By: #### 2 4321-2, 01153-2, 2777-1, 2571-8 ####[facility] [id number] [place] [address] [place] CO2 [Moles/Vol] 22 mmol/L Normal 22-30 [facility] Comment on above: Order Comment: Speci men Type: BLOOD SPECIMENOrdering Facility: [facility] Address: [address] [place] [address] Performed By: #### 2 4321-2, , 2776-05, 2570-12 ####[facility] [id number] [place] [address] [place] Creatinine [Mass/Vol] 0.31 mg/dL Low 0.73-1.22 [facility] Comment on above: Order Comment: Speci men Type: BLOOD SPECIMENOrdering Facility: [facility] Address: [address] [place] [address] Performed By: #### 2 4321-2, , 2776-05, 2570-12 ####[facility] [id number] [place] [address] [place] eGFRcr SerPlBld CKD-EPI 2020 115 mL/min/1.73m??? Normal >=60 [facility] Comment on above: Order Comment: Speci men Type: BLOOD SPECIMENOrdering Facility: [facility] Address: [address] [place] [address] Result Comment: Genet mated Glomerular Filtration Rate (eGFR) is calculated using the 2020 CKD-EPI creatinine equation. This equation utilizes serum creatinine, sex, and age as parameters. The creatinine assay has traceable calibration to isotope dilution-mass spectrometry. Refer to KDIGO guidelines for clinical interpretation. In patients with unstable renal function, e.g. those with acute kidney injury, the eGFR may not accurately reflect actual GFR. Performed By: #### 2 4321-2, 65019-3, 2776-05, 8 ####[facility]ORY[facility]IA [id number] [place] [address] [place] Glucose [Mass/Vol] 103 mg/dL High 74-99 [facility] Comment on above: Order Comment: Melia zuluaga Type: BLOOD SPECIMENOrdering Facility: [facility] Address: [address] [place] [address] Result Comment: The [place] Diabetes [employer] (ADA) provides guidance for cutoff values for fasting glucose and random glucose. The ADA defines fasting as no caloric intake for at least 8 hours. Fasting plasma glucose results between 100 to 125 mg/dL indicate increased risk for diabetes (prediabetes). Fasting plasma glucose results greater than or equal to 126 mg/dL meet the criteria for diagnosis of diabetes. In the absence of unequivocal hyperglycemia, results should be confirmed by repeat testing. In a patient with classic symptoms of hyperglycemia or hyperglycemic crisis, random plasma glucose results greater than or equal to 200 mg/dL meet the criteria for diagnosis of diabetes. Reference: Standards of Medical Care in Diabetes 2016, [place] [employer] Association. Diabetes Care. 2016.39(Suppl 1). Performed By: #### 2 4321-2, 77019-2, 277-, 2570-12 ####[facility]ORYCLIA [id number] [place] [address] [place] Potassium [Moles/Vol] 4.0 mmol/L Normal 3.7-5.1 [facility] Comment on above: Order Comment: Melia zuluaga Type: BLOOD SPECIMENOrdering Facility: [facility] Address: [address] [place], [place] [address] Performed By: #### 2 4321-2, 53051-3, 2776-05, 2570-12 ####[facility]ORYCLIA [id number] [place] [address] [place] Sodium [Moles/Vol] 132 mmol/L Low 136-144 [facility] Comment on above: Order Comment: Melia zuluaga Type: BLOOD SPECIMENOrdering Facility: [facility] Address: [address] [place], [place] [address] Performed By: #### 2 4321-2, 99383-2, 2776-, 2570-8 ####[facility]ORYCLIA [id number] [place] [address] [place] Urea nitrogen [Mass/Vol] 20 mg/dL Normal 9-24 [facility] Comment on above: Order Comment: Speci men Type: BLOOD SPECIMENOrdering Facility: [facility] Address: [address] [place] [address] Performed By: #### 2 4321-2, 87387-6, 2777-1, 2571-8 ####[facility]ORYCLIA [id number] [address] OF [facility] CBC panel Auto (Bld)on 03-03 Erythrocyte distribution width (RBC) [Ratio] 12.0 % Normal 11.5-15.0 [facility] Comment on above: Order Comment: Speci men Type: BLOOD SPECIMEN [facility] Address: [address] [place] [address] Performed By: #### 5 8410-2 #### [facility] CLIA [id number] [address] STATES OF [facility] Hematocrit (Bld) [Volume fraction] 37.1 % Low 39.0-51.0 [facility] Comment on above: Order Comment: Speci men Type: BLOOD SPECIMEN [facility] Address: [address] [place] [address] Performed By: #### 5 8410-2 #### [facility] CLIA [id number] [address] Hemoglobin (Bld) [Mass/Vol] 13.1 g/dL Normal 13.0-17.0 [facility] Comment on above: Order Comment: Speci men Type: BLOOD SPECIMEN [facility] Address: [address] [place] [address] Performed By: #### 5 8410-2 #### [facility] CLIA [id number] [address] MCH (RBC) [Entitic mass] 32.0 pg Normal 26.0-34.0 [facility] Comment on above: Order Comment: Speci men Type: BLOOD SPECIMEN [facility] Address: [address] [place] [address] Performed By: #### 5 8410-2 #### [facility] CLIA [id number] [address] MCHC (RBC) [Mass/Vol] 35.3 g/dL Normal 30.5-36.0 [facility] Comment on above: Order Comment: Speci men Type: BLOOD SPECIMEN [facility] Address: [address] [place] [address] Performed By: #### 5 8410-2 #### [facility] CLIA [id number] [address] [place] MCV (RBC) [Entitic vol] 90.5 fL Normal 80.0-100.0 [facility] Comment on above: Order Comment: Speci men Type: BLOOD SPECIMEN [facility] Address: [address] [place] [address] Performed By: #### 5 8410-2 #### [facility] CLIA [id number] [address] [place] Nucleated RBC (Bld) [#/Vol] 10*3/uL Normal <0.01 [facility] Comment on above: Order Comment: Speci men Type: BLOOD SPECIMEN [facility] Address: [address] [place] [address] Performed By: #### 5 8410-2 #### [facility] CLIA [id number] [address] [place] Platelet mean volume (Bld) [Entitic vol] 10.8 fL Normal 9.0-12.7 [facility] Comment on above: Order Comment: Speci men Type: BLOOD SPECIMEN [facility] Address: [address] [place] [address] Performed By: #### 5 8410-2 #### [facility] CLIA [id number] [address] [place] Platelets (Bld) [#/Vol] 158 10*3/uL Normal 150-400 [facility] Comment on above: Order Comment: Speci men Type: BLOOD SPECIMEN [facility] Address: [address] [place] [address] Performed By: #### 5 8410-2 #### [facility] CLIA [id number] [address] OF [facility] RBC (Bld) [#/Vol] 4.10 10*6/uL Low 4.20-6.00 [facility] Comment on above: Order Comment: Speci men Type: BLOOD SPECIMEN [facility] Address: [address] [place] [address] Performed By: #### 5 8410-2 #### [facility] CLIA [id number] [address] WBC (Bld) [#/Vol] 8.85 10*3/uL Normal 3.70-11.00 [facility] Comment on above: Order Comment: Speci men Type: BLOOD SPECIMEN [facility] Address: [address] [place] [address] Performed By: #### 5 8410-2 #### [facility] CLIA [id number] [address] Magnesium SerPl-mCncon 03-03 Magnesium [Mass/Vol] 1.8 mg/dL Normal 1.7-2.3 [facility] Comment on above: Order Comment: Speci men Type: BLOOD SPECIMEN Ordering Facility: [facility] Address: [address] [place] [address] Performed By: #### 5 8410-2 #### [facility] CLIA [id number] [address] NURSING PROGon 03-03-2025 NURSING PROG HNO ID: [id number] Author: BRENDON SYKES RN Service: Nursing Author Type: Registered Nurse Type: Nursing Progress Note Filed: 03/03/2025 09:13 Note Text: Pt having a bloody nose in the left nare, applied gentle pressure to left nare and bleeding has subsided at this time. Will inform assigned RN Normal [facility] Phosphate SerPl-mCncon 03-03 Phosphate [Mass/Vol] 3.0 mg/dL Normal 2.7-4.8 [facility] Comment on above: Order Comment: Speci men Type: BLOOD SPECIMEN [facility]ing Facility: [facility] Address: [address] [place] [address] Performed By: #### 5 8410-2 #### [facility] CLIA [id number] [address] OF [facility] Trigl SerPl-mCncon Triglyceride [Mass/Vol] 56 mg/dL Normal <150 [facility] Comment on above: Order Comment: Speci men Type: BLOOD SPECIMEN [facility]ing Facility: [facility] Address: [address] [place] [address] Result Comment: <150 mg/dL, Normal 150-199 mg/dL, Borderline high 200-499 mg/dL, High >499 mg/dL, Very high Reference: 1. National Cholesterol Education Program ATP III Guideline At-A-Glance Quick Desk Reference: National Heart, Lung, and Blood Stuart. National Institutes of Health. 2001: NIH Publication No. 01-3305. Performed By: #### 5 8410-2 #### [facility] CLIA [id number] [address] STATES [facility] Triglyceride [Mass/Vol]on FASTING TIME 12 hours Normal [facility] Comment on above: Order Comment: Speci men Type: BLOOD SPECIMEN Ordering Facility: [facility] Address: [address] [place] [address] Performed By: #### 5 8410-2 #### [facility] CLIA [id number] [address] OF [place] Basic metabolic 2000 panelon 03-02-2025 Anion gap [Moles/Vol] 9 mmol/L Normal 8-15 [facility] Comment on above: Order Comment: Speci men Type: BLOOD SPECIMEN [facility]ing Facility: [facility] Address: [address] [place] [address] Performed By: #### 2 777-1, 93655-2, #### [facility] CLIA [id number] 1 [place] [address] [place] Calcium [Mass/Vol] 8.9 mg/dL Normal 8.5-10.2 [facility] Comment on above: Order Comment: Speci men Type: BLOOD SPECIMEN [facility]ing Facility: [facility] Address: [address] [place] [address] Performed By: #### 2 777-1, , #### [facility] CLIA [id number] 1 [place] [address] [place] Chloride [Moles/Vol] 104 mmol/L Normal 98-107 [facility] Comment on above: Order Comment: Speci men Type: BLOOD SPECIMEN [facility]ing Facility: [facility] Address: [address] [place] [address] Performed By: #### 2 777-1, , #### [facility] CLIA [id number] 1 [place] [address] [place] CO2 [Moles/Vol] 25 mmol/L Normal 22-30 [facility] Comment on above: Order Comment: Speci men Type: BLOOD SPECIMEN [facility] Facility: [facility] Address: [address] [place] [address] Performed By: #### 2 777-1, , #### [facility] CLIA [id number] 1 [place] [address] [place] Creatinine [Mass/Vol] 0.31 mg/dL Low 0.73-1.22 [facility] Comment on above: Order Comment: Speci men Type: BLOOD SPECIMEN [facility]ing Facility: [facility] Address: [address] [place] [address] Performed By: #### 2 777-1, 86880-6, #### [facility] CLIA [id number] 1 [place] [address] [place] eGFRcr SerPlBld CKD-EPI 2021 115 mL/min/1.73m??? Normal >=60 [facility] Comment on above: Order Comment: Melia zuluaga Type: BLOOD SPECIMEN Ordering Facility: [facility] Address: [address] [place] [address] Result Comment: Genet mated Glomerular Filtration Rate (eGFR) is calculated using the 2020 CKD-EPI creatinine equation. This equation utilizes serum creatinine, sex, and age as parameters. The creatinine assay has traceable calibration to isotope dilution-mass spectrometry. Refer to KDIGO guidelines for clinical interpretation. In patients with unstable renal function, e.g. those with acute kidney injury, the eGFR may not accurately reflect actual GFR. Performed By: #### 2 777-1, 13587-0, #### [facility] CLIA [id number] 1 [place] [address] [place] Glucose [Mass/Vol] 91 mg/dL Normal 74-99 [facility] Comment on above: Order Comment: Melia zuluaga Type: BLOOD SPECIMEN [facility]ing Facility: [facility] Address: [address] [place] [address] Result Comment: The [place] Diabetes Association (ADA) provides guidance for cutoff values for fasting glucose and random glucose. The ADA defines fasting as no caloric intake for at least 8 hours. Fasting plasma glucose results between 100 to 125 mg/dL indicate increased risk for diabetes (prediabetes). Fasting plasma glucose results greater than or equal to 126 mg/dL meet the criteria for diagnosis of diabetes. In the absence of unequivocal hyperglycemia, results should be confirmed by repeat testing. In a patient with classic symptoms of hyperglycemia or hyperglycemic crisis, random plasma glucose results greater than or equal to 200 mg/dL meet the criteria for diagnosis of diabetes. Reference: Standards of Medical Care in Diabetes 2016, [place] [employer] Association. Diabetes Care. 2016.39(Suppl 1). Performed By: #### 2 777-1, 93920-4, 92377-9 #### [facility] CLIA [id number] 1 [place] [address] [place] Potassium [Moles/Vol] 4.0 mmol/L Normal 3.7-5.1 [facility] Comment on above: Order Comment: Speci men Type: BLOOD SPECIMEN Ordering Facility: [facility] Address: [address] [place] [address] Performed By: #### 2 777-1, 45842-4, #### [facility] CLIA [id number] [address] STATES OF [facility] Sodium [Moles/Vol] 138 mmol/L Normal 136-144 [facility] Comment on above: Order Comment: Speci men Type: BLOOD SPECIMEN Ordering Facility: [facility] Address: [address] [place] [address] Performed By: #### 2 777-1, 92978-6, #### [facility] CLIA [id number] [address] [place] Urea nitrogen [Mass/Vol] 13 mg/dL Normal 9-24 [facility] Comment on above: Order Comment: Speci men Type: BLOOD SPECIMEN [facility]ing Facility: [facility] Address: [address] [place] [address] Performed By: #### 2 777-1, , #### [facility] CLIA [id number] [address] [place] CBC panel Auto (Bld)on 03-02 Erythrocyte distribution width (RBC) [Ratio] 12.0 % Normal 11.5-15.0 [facility] Comment on above: Order Comment: Speci men Type: BLOOD SPECIMEN [facility]ing Facility: [facility] Address: [address] [place] [address] Performed By: #### 5 8410-2 #### [facility] CLIA [id number] [address] Hematocrit (Bld) [Volume fraction] 37.1 % Low 39.0-51.0 [facility] Comment on above: Order Comment: Speci men Type: BLOOD SPECIMEN [facility]ing Facility: [facility] Address: [address] [place] [address] Performed By: #### 5 8410-2 #### [facility] CLIA [id number] [address] Hemoglobin (Bld) [Mass/Vol] 12.9 g/dL Low 13.0-17.0 [facility] Comment on above: Order Comment: Speci men Type: BLOOD SPECIMEN [facility]ing Facility: [facility] Address: [address] [place] [address] Performed By: #### 5 8410-2 #### [facility] CLIA [id number] [address] MCH (RBC) [Entitic mass] 32.0 pg Normal 26.0-34.0 [facility] Comment on above: Order Comment: Speci men Type: BLOOD SPECIMEN [facility]ing Facility: [facility] Address: [address] [place] [address] Performed By: #### 5 8410-2 #### [facility] CLIA [id number] [address] MCHC (RBC) [Mass/Vol] 34.8 g/dL Normal 30.5-36.0 [facility] Comment on above: Order Comment: Speci men Type: BLOOD SPECIMEN [facility]ing Facility: [facility] Address: [address] [place] [address] Performed By: #### 5 8410-2 #### [facility] CLIA [id number] [address] MCV (RBC) [Entitic vol] 92.1 fL Normal 80.0-100.0 [facility] Comment on above: Order Comment: Speci men Type: BLOOD SPECIMEN Ordering Facility: [facility] Address: [address] [place] [address] Performed By: #### 5 8410-2 #### [facility] CLIA [id number] [address] Nucleated RBC (Bld) [#/Vol] 10*3/uL Normal <0.01 [facility] Comment on above: Order Comment: Speci men Type: BLOOD SPECIMEN Ordering Facility: [facility] Address: [address] [place] [address] Performed By: #### 5 8410-2 #### [facility] CLIA [id number] [address] [place] Platelet mean volume (Bld) [Entitic vol] 10.5 fL Normal 9.0-12.7 [facility] Comment on above: Order Comment: Speci men Type: BLOOD SPECIMEN Ordering Facility: [facility] Address: [address] [place] [address] Performed By: #### 5 8410-2 #### [facility] CLIA [id number] [address] [place] Platelets (Bld) [#/Vol] 164 10*3/uL Normal 150-400 [facility] Comment on above: Order Comment: Speci men Type: BLOOD SPECIMEN Ordering Facility: [facility] Address: [address] [place] [address] Performed By: #### 5 8410-2 #### [facility] CLIA [id number] [address] [place] RBC (Bld) [#/Vol] 4.03 10*6/uL Low 4.20-6.00 [facility] Comment on above: Order Comment: Speci men Type: BLOOD SPECIMEN Ordering Facility: [facility] Address: [address] [place] [address] Performed By: #### 5 8410-2 #### [facility] CLIA [id number] [address] [place] WBC (Bld) [#/Vol] 5.53 10*3/uL Normal 3.70-11.00 [facility] Comment on above: Order Comment: Speci men Type: BLOOD SPECIMEN Ordering Facility: [facility] Address: [address] [place] [address] Performed By: #### 5 8410-2 #### [facility] CLIA [id number] [address] CONSULTon 03-02-2025 CONSULT HNO ID: [id number] Author: Maury GIORDANO MD Service: NST-Nutrition Support Team Author Type: Physician Type: Consults Filed: 03/02/2025 20:44 Note Text: NUTRITION SUPPORT TEAM INITIAL CONSULT NOTE SERVICE DATE: 03/02/2025 SERVICE TIME: 15:30 REASON FOR CONSULT: need for PPN REQUESTING PHYSICIAN: Dr Hayes PRIMARY CARE PHYSICIAN: No primary care provider on file. Subjective Mr. 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 He has an NG placed with some improvement in symptoms but continued herniation of the stomach into the chest. EGD was done on 02-26-25-- this demonstrated esophagitis, some stenosis of the antrum. Surgery is planned for 03-04-25 to address the hiatal hernia and gastric outlet obstruction He is currently on full liquids. He was initially refusing PPN but is now agreeable FUNCTIONAL STATUS: Independent PAST MEDICAL HISTORY Diagnosis Date Anemia, unspecified Benign neoplasm of colon Diverticulosis of colon (without mention of hemorrhage) Esophagitis Family history of malignant neoplasm of gastrointestinal tract Family history of malignant neoplasm of gastrointestinal tract Gout, unspecified right toe Internal hemorrhoids without mention of complication Myalgia and myositis, unspecified inclusion of body Nodular lymphoma B CELL Other abnormal clinical finding low testosterone Other specified gastritis Personal history of colonic polyps Unspecified essential hypertension PAST SURGICAL HISTORY Procedure Laterality Date COLONOSCOPY FLX DX W/COLLJ SPEC WHEN PFRMD 06/29/2000 Colonoscopy COLONOSCOPY FLX DX W/COLLJ SPEC WHEN PFRMD 10/02/2003 Colonoscopy COLONOSCOPY FLX DX W/COLLJ SPEC WHEN PFRMD 09/28/2006 Colonoscopy COLONOSCOPY FLX DX W/COLLJ SPEC WHEN PFRMD 11/21/2010 EGD W/O BRSH SPEC VARICIES INJ 02/26/2025 LA Grade C esophagitis with no bleeding. Gastric stenosis with edema and mild erythema. Normal duodenal bulb, first portion of the duodenum and second portion of the duodenum. ESOPHAGOGASTRODUODENOSCOPY TRANSORAL DIAGNOSTIC 10/02/2003 EGD ESOPHAGOGASTRODUODENOSCOPY TRANSORAL DIAGNOSTIC 09/28/2006 EGD INSJ TUNNELED CTR VAD W/SUBQ PORT AGE 5 YR/> 02/07/2008 R IJ POWER PORT PAST SURGICAL HISTORY OF 07/18/2002 cyst removed from right chest PAST SURGICAL HISTORY OF 07/19/2001 cyst removed from back of right calf TONSILLECTOMY PRIMARY/SECONDARY Tonsillectomy ansd adnoids FAMILY HISTORY Problem Relation Age of Onset Colon Cancer Mother Colon Cancer Father Diabetes Father borderline ,not medicated Cancer Maternal Aunt Cancer Maternal Uncle SOCIAL HISTORY[1] Prescriptions Prior to Admission[2] Current Facility-Administered Medications Medication Dose Route Frequency NaCl 0.9% iv flush bag 20 mL INTRAVENOUS PRN ondansetron (PF) 4 mg injection (ZOFRAN) 4 mg INTRAVENOUS q 6 H PRN sodium chloride 0.9 % (flush) 2-10 mL (BD POSIFLUSH) 2-10 mL INTRAVENOUS DIRECTED PRN bisacodyl 10 mg suppository (DULCOLAX) 10 mg RECTAL q 72 HR acetaminophen 1,000 mg CUP (TYLENOL) 1,000 mg ORAL q 6 H morphine 2 mg injection 2 mg INTRAVENOUS q 4 H PRN oxyCODONE 5 mg oral liquid (ROXICODONE) 5 mg ORAL q 4 H PRN enoxaparin 40 mg injection (LOVENOX) 40 mg SUBCUTANEOUS q 24 HR lisinopril 10 mg tab(s) (ZESTRIL) 10 mg ORAL DAILY aspirin 81 mg chewable tab(s) 81 mg ORAL DAILY metoprolol tartrate (short acting) 25 mg tab(s) (LOPRESSOR) 25 mg ORAL q 12 H dextrose 5% in NaCl 0.45% iv infusion 30-150 mL/hr INTRAVENOUS PRN Parenteral Nutrition - Adult INTRAVENOUS ONCE PN (1800 START) Allergies As of Date: 02/24/2025 Allergen Noted Reaction ADHESIVE 03/18/2009 NEOSPORIN [[id number]-ZR*08/0 07/2005 Rash and Itching Fully Assessed 02/24/2025 COMPLETE REVIEW OF SYSTEMS: PAIN ASSESSMENT: Negative for pain, history of chronic pain, or current treatment for a chronic pain condition. RESPIRATORY: Negative for cough, hemoptysis, wheezing, COPD, dyspnea or shortness of breath CARDIOVASCULAR: Negative for chest pain, leg swelling, hypertension, CHF or palpitations GI: See HPI : No history of dysuria, frequency or incontinence MUSCULOSKELETAL: Negative for joint pain or swelling, back pain or muscle pain and Hx inclusion body myositis SKIN: Negative for lesions, rash, and itching PSYCH: Negative for sleep disturbance, mood disorder and recent psychosocial stressors HEMATOLOGY/LYMPHOLOGY: Negative for prolonged bleeding, bruising easily or swollen nodes ENDOCRINE: Negative for cold or heat intolerance, polyuria, polydipsia and goiter NEURO: No history of headaches, syncope, paralysis, seizures or tremors Objective PHYSICAL EXAM: Physical Exam Performed: GENERAL: Alert, no distress, cooperative LUNGS: Lungs clear to auscultation, Good diaphragmatic excursion CARDIAC: Rhythm: regular rate and rhythm ABDOMEN: Soft, nontender EX (more content not included)... Normal [facility] CONSULT PROGon 03-02-2025 CONSULT PROG HNO ID: [id number] Author: CHESTER BERTRAND APRN.BACKER UP Service: Gastroenterology Author Type: Nurse Specialist Type: Consult Progress Note Filed: 03/02/2025 13:01 Note Text: GI CONSULT PROGRESS NOTE SERVICE DATE: 03/02/2025 SERVICE TIME: 12:52 PM CONSULTING SERVICE: Gastroenterology Subjective INTERVAL HPI: GI following for gastric outlet obstruction. Patient reports ongoing dysphagia. Noted plan for surgery on Sunday. S/p EGD 02/27 which showed LA grade C esophagitis with no bleeding, gastric stenosis, normal duodenal bulb. Labs stable Current Facility-Administered Medications Medication Dose Route Frequency NaCl 0.9% iv flush bag 20 mL INTRAVENOUS PRN ondansetron (PF) 4 mg injection (ZOFRAN) 4 mg INTRAVENOUS q 6 H PRN sodium chloride 0.9 % (flush) 2-10 mL (BD POSIFLUSH) 2-10 mL INTRAVENOUS DIRECTED PRN bisacodyl 10 mg suppository (DULCOLAX) 10 mg RECTAL q 72 HR acetaminophen 1,000 mg CUP (TYLENOL) 1,000 mg ORAL q 6 H morphine 2 mg injection 2 mg INTRAVENOUS q 4 H PRN oxyCODONE 5 mg oral liquid (ROXICODONE) 5 mg ORAL q 4 H PRN enoxaparin 40 mg injection (LOVENOX) 40 mg SUBCUTANEOUS q 24 HR lisinopril 10 mg tab(s) (ZESTRIL) 10 mg ORAL DAILY aspirin 81 mg chewable tab(s) 81 mg ORAL DAILY metoprolol tartrate (short acting) 25 mg tab(s) (LOPRESSOR) 25 mg ORAL q 12 H dextrose 5% in NaCl 0.45% iv infusion 30-150 mL/hr INTRAVENOUS PRN Parenteral Nutrition - Adult INTRAVENOUS ONCE PN (1800 START) lactated ringers iv infusion 50 mL/hr INTRAVENOUS CONTINUOUS Objective PHYSICAL EXAM: Physical Exam Performed: Physical Exam Vitals and nursing note reviewed. Constitutional: General: He is not in acute distress. HENT: Head: Normocephalic. Nose: Nose normal. Mouth/Throat: Mouth: Mucous membranes are moist. Eyes: General: No scleral icterus. Cardiovascular: Rate and Rhythm: Normal rate and regular rhythm. Pulses: Normal pulses. Heart sounds: Normal heart sounds. Pulmonary: Effort: Pulmonary effort is normal. Abdominal: General: There is no distension. Palpations: Abdomen is soft. Skin: General: Skin is warm and dry. Neurological: Mental Status: He is alert. Mental status is at baseline. Psychiatric: Mood and Affect: Mood normal. BP 165/69 Pulse 54 Temp (Src) 98.2 (Oral) Resp 17 Ht 5' 9" (1.75m) Wt 141 lb 8.6 oz (64.2kg) SpO2 95% BMI 20.89 kg/(m2). O2 Therapy: Room Air DATA: Diagnostic tests reviewed for today's visit: Most recent labs and imaging results. Recent Labs 03/02/25 0603 03/01/25 0011 02/28/25 0141 WBC 5.53 6.50 6.43 HB 12.9* 12.1* 12.0* HCT 37.1* 36.0* 36.4* PLT 164 150 146* NA 138 135* 143 K 4.0 3.7 3.6* CHLOR 104 100 102 CO2 25 28 33* BUN 13 13 26* CREAT 0.31* 0.31* 0.35* GLUC 91 97 111* CA 8.9 8.3* 8.6 MG 1.7 -- 2.1 P 2.8 -- 2.1* EGD LA Grade C esophagitis with no bleeding. Gastric stenosis with edema and mild erythema found in the gastric antrum, prepylorus and duodenal bulb. The prepyloric region was biopsied. Normal duodenal bulb, first portion of the duodenum and second portion of the duodenum. Surgical pathology - Gastric mucosa with intestinal metaplasia Impression/Recommendations Gastric outlet obstruction - secondary to large HH. On liquid diet with minimal intake. Reports ongoing symptoms of dysphagia - Liquid diet - Continue PPN - Surgical intervention planned for 03/04 - Surgical pathology showed gastric mucosa with intestinal metaplasia No additional recommendations per GI GI will sign off Call if needed After 4 pm and on weekends, please refer to [facility] for the GI physician secondary set up man. GI attending who can be reached via phone, pager or Epic chat. SIGNATURE: Chester Bertrand APRN.CNS PATIENT NAME: Jeanie Rankin DATE: March 02, 2025 TIME: 12:52 PM Normal [facility] ECG COMPLETEon 03-02-2025 ECG COMPLETE Ventricular Rate : 6 7 BPM Atrial Rate : 67 BPM P-R Interval : 162 ms QRS Duration : 140 ms Q-T Interval : 426 ms QTC Calculation(Bazett) : 450 ms Calculated P [place] : 28 degrees Calculated R [place] : 10 degrees Calculated T [place] : 5 degrees NORMAL SINUS RHYTHM RIGHT BUNDLE BRANCH BLOCK ABNORMAL ECG WHEN COMPARED WITH ECG OF 27-Feb-2025 09:00, QUESTIONABLE CHANGE IN QRS AXIS T WAVE INVERSION LESS EVIDENT IN ANTERIOR LEADS Confirmed by MD WATTS VINAYAK ([id number]) on 03/03/2025 8:09:03 AM NAME : JEANIE RANKIN PID : [id number] : 1940 Gender : Male Race : ORD : [id number] Procedure Date : Mar 02 2025 19:01:01 Edit Date : Mar 03 2025 08:09:17 Diagnosis: NORMAL SINUS RHYTHM RIGHT BUNDLE BRANCH BLOCK ABNORMAL ECG WHEN COMPARED WITH ECG OF 27-Feb-2025 09:00, QUESTIONABLE CHANGE IN QRS AXIS T WAVE INVERSION LESS EVIDENT IN ANTERIOR LEADS Confirmed by MD WATTS VINAYAK ([id number]) on 03/03/2025 8:09:03 AM Test Reason : Chest Pain Location : 200 : [facility] 5427 Overread By : MD WATTS VINAYAK Edited By : MD WATTS VINAYAK Referred By : , Acquired by : NAHOMI GREENE [facility] Magnesium SerPl-ncon 03-02 Magnesium [Mass/Vol] 1.7 mg/dL Normal 1.7-2.3 [facility] Comment on above: Order Comment: Speci men Type: BLOOD SPECIMEN [facility] Facility: [facility] Address: [address] [place] [address] Performed By: #### 2 777-1, 86218-3, 15811-0 #### [facility] CLIA [id number] [address] NUTRITIONon 03-02-2025 NUTRITION HNO ID: [id number] Author: KIM VICENTE RD Service: NST-Nutrition Support Team Author Type: Registered Dietitian Type: Nutrition Filed: 03/02/2025 14:18 Note Text: PARENTERAL NUTRITION PROGRESS NOTE SERVICE DATE: 03/02/2025 SERVICE TIME: Start Time: 1205 Nutrition Assessment: Recommended Malnutrition Diagnosis: Severe Protein-Calorie Malnutrition (03/01/25 1017 : Zulema Villagran RD) In the context of: Acute Illness or Injury Based on: Insufficient Energy Intake, Muscle Loss Recommendations: NST to follow patient. New consult for PPN support in setting of SCPM and GOO. Advance diet to Minced and Moist (IDDSI Level 5) with Thin Liquids (per [employer] recommendation 02/27) Supplements: Premier Protein - h/o intolerance to higher kcal supplements d/t viscosity; enjoys premier protein shakes; to supply from home. PPN script: 2.0 L over 24 hours to provide 1140 kcals and 60 g protein. PN ancillary orders ordered. D/C IVF when PN starts. Labs: Phosphorus, Magnesium, Triglycerides, Prealbumin Parenteral Nutrition Parenteral Needs: Start PN Type: Peripheral PN Indications: Obstruction Obstruction Type: Gastric outlet Volume (mL): 2000 Infusion Hours: 24 hours continuous Electrolytes: Adjusted per lab trends PN Additives: MVI, MTE-4, Thiamine Regular Insulin (units): None Dextrose: Maintain (400 kcals) Protein: Maintain (60 g) Lipids: SMOFlipid, 3-in-1 infusion (500 kcals) Orders written and provider collaborated with: Dr. Giordano Interval History: PPN start today. Plan for OR Sunday. High risk refeeding syndrome. Parenteral Nutrition Assessment: Meds/labs reviewed. EF: 74% per ECHO 02/26/25. No h/o DM. No PN related allergies. Notable meds: 20 mEq KCl 02/28, LR at 50 mL/hr Glucose: WNL Input/Output Assessment: Negative fluid balance Temperature: Afebrile MNT Billing: $ Reassessment: 1 unit Time Spent (mins): 10 SIGNATURE: Kim Vicente RD PATIENT NAME: Jeanie Rankin DATE: March 02, 2025 TIME: 11:50 AM Normal [facility] Phosphate SerPl-mCncon 03-02 Phosphate [Mass/Vol] 2.8 mg/dL Normal 2.7-4.8 [facility] Comment on above: Order Comment: Speci men Type: BLOOD SPECIMEN [facility] Facility: [facility] Address: [address] [place] [address] Performed By: #### 2 777-1, 41235-0, 51843-7 #### [facility] CLIA [id number] [address] XR CHEST 1V FRONTALon 2024 XR CHEST 1V FRONTAL * * *Final Report* * * DATE OF EXAM: Mar 02 2025 7:38PM AKX [id number] - XR CHEST 1V FRONTAL / PROCEDURE REASON: Chest pain * * * * Physician Interpretation * * * * EXAMINATION: CHEST RADIOGRAPH (SINGLE VIEW AP OR PA) CLINICAL HISTORY: Chest pain MQ: XC1_5 Comparison: CT of the chest, abdomen and pelvis 02/24/2025 RESULT: Lungs and pleura: Mild atelectasis in the lung bases. No consolidation or pleural effusion. No pneumothorax. Cardiac silhouette: Cardiac silhouette is not enlarged. Atherosclerotic calcifications of the thoracic aorta are present. Hiatal hernia redemonstrated. Bones and soft tissues: No acute osseous findings. IMPRESSION: Mild atelectasis in the lung bases. Director Summer Sessions: PSCCarol Transcribe Date/Time: Mar 02 2025 9:01P Dictated by : AGNIESZKA BURNHAM MD This examination was interpreted and the report reviewed and electronically signed by: AGNIESZKA BURNHAM MD on Mar 02 2025 9:04PM EST [id number] Normal [facility] Basic metabolic 2000 panelon 03-01-2025 Anion gap [Moles/Vol] 7 mmol/L Low 8-15 [facility] Comment on above: Order Comment: Speci men Type: BLOOD SPECIMEN [facility]ing Facility: [facility] Address: [address] [place] [address] Performed By: #### 5 8410-2 #### [facility] CLIA [id number] [address] [place] Calcium [Mass/Vol] 8.3 mg/dL Low 8.5-10.2 [facility] Comment on above: Order Comment: Speci men Type: BLOOD SPECIMEN [facility]ing Facility: [facility] Address: [address] [place] [address] Performed By: #### 5 8410-2 #### [facility] CLIA [id number] 1 [place] [address] [place] Chloride [Moles/Vol] 100 mmol/L Normal 98-107 [facility] Comment on above: Order Comment: Speci men Type: BLOOD SPECIMEN [facility] Facility: [facility] Address: [address] [place] [address] Performed By: #### 5 8410-2 #### [facility] CLIA [id number] [address] [place] CO2 [Moles/Vol] 28 mmol/L Normal 22-30 [facility] Comment on above: Order Comment: Speci men Type: BLOOD SPECIMEN [facility] Facility[facility] Address: [address] [place] [address] Performed By: #### 5 8410-2 #### [facility] CLIA [id number] [address] [place] Creatinine [Mass/Vol] 0.31 mg/dL Low 0.73-1.22 [facility] Comment on above: Order Comment: Speci men Type: BLOOD SPECIMEN [facility] Facility: [facility] Address: [address] [place] [address] Performed By: #### 5 8410-2 #### [facility] CLIA [id number] [address] [place] eGFRcr SerPlBld CKD-EPI 2020 115 mL/min/1.73m??? Normal >=60 [facility] Comment on above: Order Comment: Speci men Type: BLOOD SPECIMEN [facility]ing Facility: [facility] Address: [address] [place] [address] Result Comment: Genet mated Glomerular Filtration Rate (eGFR) is calculated using the 2020 CKD-EPI creatinine equation. This equation utilizes serum creatinine, sex, and age as parameters. The creatinine assay has traceable calibration to isotope dilution-mass spectrometry. Refer to KDIGO guidelines for clinical interpretation. In patients with unstable renal function, e.g. those with acute kidney injury, the eGFR may not accurately reflect actual GFR. Performed By: #### 5 8410-2 #### [facility] CLIA [id number] 1 [place] [address] [place] Glucose [Mass/Vol] 97 mg/dL Normal 74-99 [facility] Comment on above: Order Comment: Melia zuluaga Type: BLOOD SPECIMEN Ordering Facility: [facility] Address: [address] [place] [address] Result Comment: The [place] Diabetes [employer] (ADA) provides guidance for cutoff values for fasting glucose and random glucose. The ADA defines fasting as no caloric intake for at least 8 hours. Fasting plasma glucose results between 100 to 125 mg/dL indicate increased risk for diabetes (prediabetes). Fasting plasma glucose results greater than or equal to 126 mg/dL meet the criteria for diagnosis of diabetes. In the absence of unequivocal hyperglycemia, results should be confirmed by repeat testing. In a patient with classic symptoms of hyperglycemia or hyperglycemic crisis, random plasma glucose results greater than or equal to 200 mg/dL meet the criteria for diagnosis of diabetes. Reference: Standards of Medical Care in Diabetes 2016, [place] [employer]. Diabetes Care. 2016.39(Suppl 1). Performed By: #### 5 8410-2 #### [facility] CLIA [id number] 1 [place] [address] [place] Potassium [Moles/Vol] 3.7 mmol/L Normal 3.7-5.1 [facility] Comment on above: Order Comment: Melia zuluaga Type: BLOOD SPECIMEN [facility]ing Facility: [facility] Address: [address] [id number] Performed By: #### 5 8410-2 #### [facility] CLIA [id number] [address] Sodium [Moles/Vol] 135 mmol/L Low 136-144 [facility] Comment on above: Order Comment: Speci men Type: BLOOD SPECIMEN [facility]ing Facility: [facility] Address: [address] [place] [address] Performed By: #### 5 8410-2 #### [facility] CLIA [id number] [address] [place] Urea nitrogen [Mass/Vol] 13 mg/dL Normal 9-24 [facility] Comment on above: Order Comment: Speci men Type: BLOOD SPECIMEN [facility]ing Facility: [facility] Address: [address] [place] [address] Performed By: #### 5 8410-2 #### [facility] CLIA [id number] [address] CBC panel Auto (Bld)on 03-01 Erythrocyte distribution width (RBC) [Ratio] 12.1 % Normal 11.5-15.0 [facility] Comment on above: Order Comment: Speci men Type: BLOOD SPECIMEN [facility]ing Facility: [facility] Address: [address] [place] [address] Performed By: #### 5 8410-2 #### [facility] CLIA [id number] [address] Hematocrit (Bld) [Volume fraction] 36.0 % Low 39.0-51.0 [facility] Comment on above: Order Comment: Speci men Type: BLOOD SPECIMEN [facility]ing Facility: [facility] Address: [address] [place] [address] Performed By: #### 5 8410-2 #### [facility] CLIA [id number] [address] [place] Hemoglobin (Bld) [Mass/Vol] 12.1 g/dL Low 13.0-17.0 [facility] Comment on above: Order Comment: Speci men Type: BLOOD SPECIMEN [facility]ing Facility: [facility] Address: [address] [place] [address] Performed By: #### 5 8410-2 #### [facility] CLIA [id number] [address] MCH (RBC) [Entitic mass] 31.5 pg Normal 26.0-34.0 [facility] Comment on above: Order Comment: Speci men Type: BLOOD SPECIMEN [facility]ing Facility: [facility] Address: [address] [place] [address] Performed By: #### 5 8410-2 #### [facility] CLIA [id number] [address] MCHC (RBC) [Mass/Vol] 33.6 g/dL Normal 30.5-36.0 [facility] Comment on above: Order Comment: Speci men Type: BLOOD SPECIMEN [facility]ing Facility: [facility] Address: [address] [place] [address] Performed By: #### 5 8410-2 #### [facility] CLIA [id number] [address] MCV (RBC) [Entitic vol] 93.8 fL Normal 80.0-100.0 [facility] Comment on above: Order Comment: Speci men Type: BLOOD SPECIMEN [facility] Facility: [facility] Address: [address] [place] [address] Performed By: #### 5 8410-2 #### [facility] CLIA [id number] [address] Nucleated RBC (Bld) [#/Vol] 10*3/uL Normal <0.01 [facility] Comment on above: Order Comment: Speci men Type: BLOOD SPECIMEN [facility]ing Facility: [facility] Address: [address] [place] [address] Performed By: #### 5 8410-2 #### [facility] CLIA [id number] [address] [place] Platelet mean volume (Bld) [Entitic vol] 10.6 fL Normal 9.0-12.7 [facility] Comment on above: Order Comment: Speci men Type: BLOOD SPECIMEN [facility]ing Facility: [facility] Address: [address] [place] [address] Performed By: #### 5 8410-2 #### [facility] CLIA [id number] [address] Platelets (Bld) [#/Vol] 150 10*3/uL Normal 150-400 [facility] Comment on above: Order Comment: Speci men Type: BLOOD SPECIMEN [facility]ing Facility: [facility] Address: [address] [place] [address] Performed By: #### 5 8410-2 #### [facility] CLIA [id number] [address] OF [facility] RBC (Bld) [#/Vol] 3.84 10*6/uL Low 4.20-6.00 [facility] Comment on above: Order Comment: Speci men Type: BLOOD SPECIMEN Ordering Facility: [facility] Address: [address] [place] [address] Performed By: #### 5 8410-2 #### [facility] CLIA [id number] [address] WBC (Bld) [#/Vol] 6.50 10*3/uL Normal 3.70-11.00 [facility] Comment on above: Order Comment: Speci men Type: BLOOD SPECIMEN [facility] Facility: [facility] Address: [address] [place] [address] Performed By: #### 5 8410-2 #### [facility] CLIA [id number] [address] CONSULT PROGon 03-01-2025 CONSULT PROG HNO ID: [id number] Author: PETRONA ALBRECHT MD Service: General Surgery Author Type: Resident Type: Consult Progress Note Filed: 03/01/2025 09:33 Note Text: Attestation signed by Petrona Albrecht MD at 03/01/2025 9:33 AM Attending Note I evaluated the patient and personally participated in the [place] components. I agree with the resident's findings and plan as documented and have discussed the case and management of the patient's care with the resident. Signature: Petrona Albrecht MD Date: 03/01/2025 Time: 9:33 AM Elective General Surgery (Green Surgery) Progress Note SERVICE DATE: March 01, 2025 Elective General Surgery (Green Surgery) Service Pager: For questions or concerns Mon-Fri 6a-5p please page [phone]. After 5pm and on Weekends and Holidays, please page [phone]. SUBJECTIVE: NAEON. Patient denies any nausea or vomiting. Reports continued passing of flatus, no BM. Tolerating diet DIET LIQUID OBJECTIVE: Vitals: Temp (24hrs), Av.8 ?C (98.2 ?F), Min:36.7 ?C (98.1 ?F), Max:36.8 ?C (98.3 ?F) BP 157/71 Pulse (!) 54 Temp 36.7 ?C (98.1 ?F) (Temporal) Resp 18 Ht 175.3 cm (5' 9") Wt 64.2 kg (141 lb 8.6 oz) SpO2 96% BMI 20.90 kg/m? O2 Therapy: Room Air IANDO: Date 02/28/25699 - 03/01/2559 03/01/25699 - 03/02/25 0659 Shift 5271-0522 2617-5521 8294-1798 24 Hour Total 2359-5282 8842-5943 5798-0760 24 Hour Total INTAKE PO 240 240 PO 240 240 Shift Total 240 240 OUTPUT Urine 900 900 Void (ml) 900 900 Shift Total 900 900 Weight (kg) 64.2 64.2 64.2 64.2 64.2 64.2 64.2 64.2 MEDICATIONS: Current Facility-Administered Medications Medication Dose Route Frequency bisacodyl 10 mg suppository (DULCOLAX) 10 mg RECTAL q 72 HR acetaminophen 1,000 mg CUP (TYLENOL) 1,000 mg ORAL q 6 H morphine 2 mg injection 2 mg INTRAVENOUS q 4 H PRN oxyCODONE 5 mg oral liquid (ROXICODONE) 5 mg ORAL q 4 H PRN enoxaparin 40 mg injection (LOVENOX) 40 mg SUBCUTANEOUS q 24 HR lisinopril 10 mg tab(s) (ZESTRIL) 10 mg ORAL DAILY metoprolol tartrate (short acting) 12.5 mg tab(s) (LOPRESSOR) 12.5 mg ORAL q 12 H aspirin 81 mg chewable tab(s) 81 mg ORAL DAILY lactated ringers iv infusion 75 mL/hr INTRAVENOUS CONTINUOUS sodium chloride 0.9 % (flush) 2-10 mL (BD POSIFLUSH) 2-10 mL INTRAVENOUS DIRECTED PRN NaCl 0.9% iv flush bag 20 mL INTRAVENOUS PRN ondansetron (PF) 4 mg injection (ZOFRAN) 4 mg INTRAVENOUS q 6 H PRN Labs: Recent Labs 03/01/25 0011 02/28/25 0141 02/27/25 0605 NA 135* 143 149* K 3.7 3.6* 3.5* CHLOR 100 102 102 CO2 28 33* 35* BUN 13 26* 29* CREAT 0.31* 0.35* 0.46* GLUC 97 111* 81 ANION 7* 8 12 CA 8.3* 8.6 9.1 MG -- 2.1 2.2 P -- 2.1* 3.1 ALB -- -- 3.5* AST -- -- 18 ALT -- -- 11 ALKPHOS -- -- 51 TBILI -- -- 0.7 WBC 6.50 6.43 6.76 HB 12.1* 12.0* 12.4* HCT 36.0* 36.4* 37.9* PLT 150 146* 173 Physical Exam: GENERAL: resting comfortably, in no acute distress HEENT: normocephalic, atraumatic, EOMI NECK: trachea midline, no JVD LUNGS: Unlabored breathing, equal chest rise bilaterally CARDIAC: Regular rate, warm extremities, good perfusion throughout ABDOMEN: Soft, non-tender, non-distended. No rebound or guarding, . 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 Obstructive symptoms started roughly [address] significant for large hiatal hernia w/ stomach and duodenum and mentioned GOO. NG placement and repeat CT w/ satisfactory placement and decompression. Labs have been unremarkable. Hospital Course/Operations/Procedures : * No surgery found * Plan: GOO 2/2 Large Hiatal Hernia - Plan for surgery on Sunday for a full repair - Added supplements Ensure MAX as patient tolerates this at home - NST consult pending - Cards consulted for preop risk assessment: Stress test with moderate to mild ischemia, plan to medically manage and minimize OR time Lisinopril, Lopressor and ASA per cards Discussed with attending: Dr. Hayes Follow up needs: TBD SIGNATURE: Blaine Casiano MD PATIENT NAME: Jeanie Rankin DATE: Feb (more content not included)... Normal [facility] NUTRITIONon 03-01-2025 NUTRITION HNO ID: [id number] Author: ZULEMA VILLAGRAN RD Service: Nutrition Therapy Author Type: Registered Dietitian Type: Nutrition Filed: 03/01/2025 12:00 Note Text: NUTRITION THERAPY REASSESSMENT NOTE SERVICE DATE: 03/01/2025 SERVICE TIME: Start Time: 1016 Nutrition Assessment: Recommended Malnutrition Diagnosis: Severe Protein-Calorie Malnutrition (03/01/25 1017 : Zulema Villagran RD) In the context of: Acute Illness or Injury Based on: Insufficient Energy Intake, Muscle Loss Nutrition Diagnosis: Problem: Suboptimal protein/energy intake Related to: Change in GI tract motility As evidenced by: Medical condition, Patient/family self-report, Imaging studies Care Plan: Follow for diet advancement to goal (per [employer] approved consistencies/textures) Supplements: (pt has refused all, states he only will drink Premier Protein his brings in) Refer to: Speech/Language Vitamins and Minerals: Multivitamin with minerals (consider adding) Orders written and provider collaborated with: Blaine Casiano Monitor and Evaluation: Meet greater than 75% of estimated needs, Monitor bowel function, Monitor fluid/electrolyte balance, Monitor labs, I/Os, vital signs, weight Interval History: patient on LOS day 4, general surgery continuing to follow for hiatal hernia repair--plan for surgery on 03/04. Resting in bed in NAD. Does not want TPN or EN intervention. +BM. Labs and medications reviewed. Intake History: Nutrition Intake Prior to Admission: Less than 50% estimated energy needs greater than or equal to 5 days Current Nutrition Intake: Less than 50% estimated energy needs Current Intake Over time: (x 4 days, since admission. Patient with immense difficulty chewing/swallowing foods and cannot feed himself very well d/t severe muscle wasting in arms) Dosing Weight: 64.2 kg (141 lb 8.6 oz) Dosing Weight Type: Admit weight Estimated kilocalorie needs: 6260-9841 Calorie Calculation Method: 30-35 kcals/kg Estimated protein needs (grams): 77-97 Grams protein determined by: 1.2 - 1.5 g/kg Diet Orders (From admission, onward) Start Ordered 02/28/25 1130 DIET SUPPLEMENTS START NOW Question Answer Comment Supplement 1 ENSURE CLEAR MIXED [place] Supplement 1 Frequency BREAKFAST Supplement 1 Frequency DINNER Supplement 2 ENSURE CLEAR APPLE Supplement 2 Frequency LUNCH 02/28/25 1124 02/27/25 1245 DIET LIQUID START NOW Question: Liquid Diet Answer: FULL LIQUID 02/27/25 1231 Anthropometrics: Height: 175.3 cm (5' 9") Weight: 64.2 kg (141 lb 8.6 oz) Usual Weight: 68 kg (150 lb) Usual Weight Obtained From: Patient Body mass index is 20.9 kg/m?. Weight change percentage over time: Unable to determine--limited trends in chart review but seems he lost about 10 lbs considering reported UBW around 150 lbs Weight Change: Unable to determine Physical Exam: Subcutaneous fat loss: Subcutaneous Fat Loss Assessed Orbital: Slightly dark circles, somewhat hollow look (Mod) Upper Arm (Triceps): Very little space between folds, fingers practically touching (Severe) Muscle loss: Muscle Loss Assessed Temporalis: Slight depression (Mod) Clavicle: Protruding and prominent bone (Severe) Acromion: Notable depression, prominent, visible bone (Severe) Scapula: Notable depression, prominent, visible bone (Severe) Interosseous (Hand): Depressed areas, bones prominent (Severe) Quadricep: Depression/line on thigh, kneecap prominent (Severe) Gastrocnemius: Thin, minimal to no muscle definition (Severe) Potential micronutrient deficiency: Mucous Membranes, Skin Potential micronutrient deficiency: Mucous Membranes, Skin Edema/Ascites: Lower extremities Lower Extremity: Non-pitting GI Symptoms: Chewing problems, Swallowing problems Functional Status: Regressed Potential Signs of Inflammation: Imaging studies Lines, Drains, and Airways None MNT Billing: $ Initial Assessment: 1 unit Time Spent (mins): 10 SIGNATURE: Zulema Villagran RD PATIENT NAME: Jeanie Rankin DATE: March 01, 2025 TIME: 10:17 AM Normal [facility] Basic metabolic 2000 panelon 02-28-2025 Anion gap [Moles/Vol] 8 mmol/L Normal 8-15 [facility] Comment on above: Order Comment: Melia zuluaga Type: BLOOD SPECIMEN [facility] Facility[facility] Address: [address] [place] [address] Performed By: #### 2 777-1, 36521-9, 84880-3 #### [facility] CLIA [id number] 1 [place] [address] [place] Calcium [Mass/Vol] 8.6 mg/dL Normal 8.5-10.2 [facility] Comment on above: Order Comment: Melia zuluaga Type: BLOOD SPECIMEN [facility]ing Facility: [facility] Address: [address] [place] [address] Performed By: #### 2 777-1, 08144-4, #### [facility] CLIA [id number] 1 [place] [address] [place] Chloride [Moles/Vol] 102 mmol/L Normal 98-107 [facility] Comment on above: Order Comment: Speci men Type: BLOOD SPECIMEN [facility] Facility: [facility] Address: [address] [place] [address] Performed By: #### 2 777-1, 16347-4, #### [facility] CLIA [id number] 1 [place] [address] [place] CO2 [Moles/Vol] 33 mmol/L High 22-30 [facility] Comment on above: Order Comment: Speci men Type: BLOOD SPECIMEN [facility] Facility[facility] Address: [address] [place] [address] Performed By: #### 2 777-1, 95674-7, #### [facility] CLIA [id number] 1 [place] [address] [place] Creatinine [Mass/Vol] 0.35 mg/dL Low 0.73-1.22 [facility] Comment on above: Order Comment: Speci men Type: BLOOD SPECIMEN [facility] Facility[facility] Address: [address] [place] [address] Performed By: #### 2 777-1, 79721-3, #### [facility] CLIA [id number] 1 [place] [address] [place] eGFRcr SerPlBld CKD-EPI 2020 111 mL/min/1.73m??? Normal >=60 [facility] Comment on above: Order Comment: Speci men Type: BLOOD SPECIMEN [facility] Facility: [facility] Address: [address] [place] [address] Result Comment: Genet mated Glomerular Filtration Rate (eGFR) is calculated using the 2020 CKD-EPI creatinine equation. This equation utilizes serum creatinine, sex, and age as parameters. The creatinine assay has traceable calibration to isotope dilution-mass spectrometry. Refer to KDIGO guidelines for clinical interpretation. In patients with unstable renal function, e.g. those with acute kidney injury, the eGFR may not accurately reflect actual GFR. Performed By: #### 2 777-1, 56335-9, #### [facility] CLIA [id number] 1 [place] [address] [place] Glucose [Mass/Vol] 111 mg/dL High 74-99 [facility] Comment on above: Order Comment: Speccollin men Type: BLOOD SPECIMEN [facility] Facility: [facility] Address: [address] [place] [address] Result Comment: The [place] Diabetes [employer] (ADA) provides guidance for cutoff values for fasting glucose and random glucose. The ADA defines fasting as no caloric intake for at least 8 hours. Fasting plasma glucose results between 100 to 125 mg/dL indicate increased risk for diabetes (prediabetes). Fasting plasma glucose results greater than or equal to 126 mg/dL meet the criteria for diagnosis of diabetes. In the absence of unequivocal hyperglycemia, results should be confirmed by repeat testing. In a patient with classic symptoms of hyperglycemia or hyperglycemic crisis, random plasma glucose results greater than or equal to 200 mg/dL meet the criteria for diagnosis of diabetes. Reference: Standards of Medical Care in Diabetes 2016, [place] [employer]. Diabetes Care. 2016.39(Suppl 1). Performed By: #### 2 777-1, , #### [facility] CLIA [id number] 1 [place] [address] [place] Potassium [Moles/Vol] 3.6 mmol/L Low 3.7-5.1 [facility] Comment on above: Order Comment: Melia men Type: BLOOD SPECIMEN [facility] Facility[facility] Address: [address] [place], [place] [address] Performed By: #### 2 777-1, , #### [facility] CLIA [id number] 1 [place] [address] [place] Sodium [Moles/Vol] 143 mmol/L Normal 136-144 [facility] Comment on above: Order Comment: Speci men Type: BLOOD SPECIMEN [facility] Facility[facility] Address: [address] [place] [address] Performed By: #### 2 777-1, 35664-2, #### [facility] CLIA [id number] [address] [place] [facility] Urea nitrogen [Mass/Vol] 26 mg/dL High 01-28 [facility] Comment on above: Order Comment: Speci men Type: BLOOD SPECIMEN [facility] Facility: [facility] Address: [address] [place] [address] Performed By: #### 2 777-1, 71421-2, #### [facility] CLIA [id number] [address] OF [facility] CBC panel Auto (Bld)on 02-28 Erythrocyte distribution width (RBC) [Ratio] 12.4 % Normal 11.5-15.0 [facility] Comment on above: Order Comment: Speci men Type: BLOOD SPECIMENOrdering Facility: [facility] Address: [address] [place] [address] Performed By: #### 5 8410-2 ####[facility] [id number] [address] [place] Hematocrit (Bld) [Volume fraction] 36.4 % Low 39.0-51.0 [facility] Comment on above: Order Comment: Speci men Type: BLOOD SPECIMENOrdering Facility: [facility] Address: [address] [place] [address] Performed By: #### 5 8410-2 ####[facility] [id number] [address] [place] Hemoglobin (Bld) [Mass/Vol] 12.0 g/dL Low 13.0-17.0 [facility] Comment on above: Order Comment: Speci men Type: BLOOD SPECIMENOrdering Facility: [facility] Address: [address] [place] [address] Performed By: #### 5 8410-2 ####[facility] [id number] [address] [place] [facility] MCH (RBC) [Entitic mass] 31.9 pg Normal 26.0-34.0 [facility] Comment on above: Order Comment: Speci men Type: BLOOD SPECIMENOrdering Facility: [facility] Address: [address] [place] [address] Performed By: #### 5 8410-2 ####[facility] [id number] [address] MCHC (RBC) [Mass/Vol] 33.0 g/dL Normal 30.5-36.0 [facility] Comment on above: Order Comment: Speci men Type: BLOOD SPECIMENOrdering Facility: [facility] Address: [address] [place] [address] Performed By: #### 5 8410-2 ####[facility] LABORATORYCLIA [id number] [address] MCV (RBC) [Entitic vol] 96.8 fL Normal 80.0-100.0 [facility] Comment on above: Order Comment: Speci men Type: BLOOD SPECIMENOrdering Facility: [facility] Address: [address] [place] [address] Performed By: #### 5 8410-2 ####[facility] LABORATORYCLIA [id number] [address] Nucleated RBC (Bld) [#/Vol] 10*3/uL Normal <0.01 [facility] Comment on above: Order Comment: Speci men Type: BLOOD SPECIMENOrdering Facility: [facility] Address: [address] [place] [address] Performed By: #### 5 8410-2 ####[facility] LABORATORYCLIA [id number] [address] Platelet mean volume (Bld) [Entitic vol] 10.3 fL Normal 9.0-12.7 [facility] Comment on above: Order Comment: Speci men Type: BLOOD SPECIMENOrdering Facility: [facility] Address: [address] [place] [address] Performed By: #### 5 8410-2 ####[facility] LABORATORYCLIA [id number] [address] STATES [facility] Platelets (Bld) [#/Vol] 146 10*3/uL Low 150-400 [facility] Comment on above: Order Comment: Speci men Type: BLOOD SPECIMENOrdering Facility: [facility] Address: [address] [place] [address] Performed By: #### 5 8410-2 ####[facility] LABORATORYCLIA [id number] [address] [place] RBC (Bld) [#/Vol] 3.76 10*6/uL Low 4.20-6.00 [facility] Comment on above: Order Comment: Speci men Type: BLOOD SPECIMENOrdering Facility: [facility] Address: [address] [place] [address] Performed By: #### 5 8410-2 ####[facility] LABORATORYCLIA [id number] [address] STATES OF [facility] WBC (Bld) [#/Vol] 6.43 10*3/uL Normal 3.70-11.00 [facility] Comment on above: Order Comment: Speci men Type: BLOOD SPECIMENOrdering Facility: [facility] Address: [address] [place] [address] Performed By: #### 5 8410-2 ####[facility] LABORATORYCLIA [id number] [address] [place] [facility] Magnesium [Mass/Vol] 2.1 mg/dL Normal 1.7-2.3 [facility] Comment on above: Order Comment: Speci men Type: BLOOD SPECIMEN [facility] Address: [address] [place] [address] Performed By: #### 2 777-1, 79940-0, 84249-3 #### [facility] CLIA [id number] [address] [place] [address] [place] Phosphate SerPl-mCncon 02-28 Phosphate [Mass/Vol] 2.1 mg/dL Low 2.7-4.8 [facility] Comment on above: Order Comment: Speci men Type: BLOOD SPECIMEN [facility] Address: [address] [place] [address] Performed By: #### 2 777-1, 88246-1, 97995-2 #### [facility] CLIA [id number] [address] [place] [address] [place] THERAPY NTon 02-28-2025 THERAPY NT HNO ID: [id number] Author: WU FLORES, PT Service: Physical Therapy Author Type: Physical Therapist Type: Therapy (PT/OT/Speech/Resp) Filed: 02/28/2025 16:18 Note Text: Physical Therapy Treatment Summary SERVICE DATE: 02/28/2025 SERVICE TIME: 1445 to 1525 ROOM: [place] [address] PT 6 Clicks Score: 9 DISCHARGE RECOMMENDATIONS Subacute/SNF Recommended Discharge Disposition Comments: pt was unable to take steps this afternoon and is wondering about transitional care--pt would benefit from this if he cannot walk by D/C Anticipated Discharge Needs: Physical Assist at Home Physical Assist at Home for: Transfers, Ambulation, Cleaning, Laundry, Meals, Medication Management, Safety, Self Care, Shopping, Transportation ASSESSMENT Response to Therapy Interventions: Good Participation in Activities, Low Activity Tolerance, Multiple Ongoing Medical Issues pt was able to stand today; was able to take steps back to bed --very shuffled and knees locked in extension, no side stepping--pt reports that he only goes forward and backward; discussed sfaety/mobility concerns--pt and have plenty of equipment at home but nothing to follow right behind him as he walks--PT suggested Lite Gait--body weight support system that uses harness--pt asking if there is transitional care that would be available and he has been at [facility] before--[facility] does have SNF/ARF PRECAUTIONS Bed/Chair Alarm, Fall Risk CURRENT HOSPITAL COURSE presented to [facility] ED with abdominal pain, nausea and vomitting--found to have 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; s/p EGD 02/26; possible plans for hernia repair vs gastropexy next week Relevant Past Medical History: esophagitis, lymphoma, OP, anemia, myalgia/myositis--inclusion body myositis HOME LIVING Patient Lives With: Spouse Assistance Available: Part-Time Entry To Home: Stairs (with stair lift) Number Of Stairs Into Home: (stair lift) Equipment Owned: Lift Chair, Rollator, Shower Chair, Commode- Raised PRIOR FUNCTIONAL LEVEL Required Assistance Assistance Required With: Cleaning, Laundry, Meals, Shopping, Transportation pt very particular about equipment, set up, his AD--pt walks around pool table every time he uses restroom--50 steps and completes 6-7 times per day SUBJECTIVE pt now has his rollator and helmet and is eager to try and stand THERAPY DIAGNOSIS Reduced mobility-other, Muscle Weakness (generalized), Unsteadiness on feet, Abnormalities of gait and mobility-other TREATMENT INTERVENTIONS Therapeutic Activity (88040) Timed Code Treatment (minutes): 40 Skilled Treatment Time (minutes): 40 Therapeutic Activity (14324) Treatment Minutes: 40 $ Therapeutic Activity (57600) Billed Units: 3 units Cues for safe mobility per grid below Sat edge of bed for extended time with close stand by assist prior to standing--approx 15 min and then additional 15 min after standing Static stand at edge of bed with rollator walker--knees locked in extension--stood approx 5 min--took very shuffled steps backward; would not take side steps along edge of bed Discussed D/C--if pt cannot walk by time to D/C--pt and report all equipment and their plan but then discussed how to get back to walking--no equipment that actually follows him and his knees buckle immediately if he isn't fully extended--discussed equipment options and asking about [facility] TRAINING AND EDUCATION PROVIDED Bed Mobility, Benefits of In-Hospital Mobility, Discharge Planning, Equipment, Falls Prevention, Home Safety, Positioning, Role of Physical Therapy, Sitting Balance, Standing Balance, Transfers THERAPEUTIC SKILLS USED Activity Dosing, Assessment of Tolerance Including Vitals Response to Activity, Cues for Sequencing/Proper Technique for Activity, Physical Assist, Movement Facilitation FUNCTIONAL STATUS mobility performed during session in bold, other mobility completed during prior session(s) and may no longer be correct or appropriate to complete. Bed Mobility Supine To Sit: Moderate Assistance, Additional Information pt able to bring LEs toward EOB--needed assist to complete; pt able to initiate bringing trunk into upright position--needed assist to complete Sit to Supine: Maximal Assistance, Additional Information (x2) needed assist at LEs and trunk to return to supine Scooting: Stand By Assistance, Maximal Assistance, Additional Information (x2) pt able to scoot to EOB on own but to scoot back in bed needs max Ax2 and then max Ax2 to reposition in bed Transfers Sit To Stand: Maximal Assistance, Additional Information height of bed fully elevated with his rollator walker and helmet on--pt able to stand with min Ax2 and locks knees as he comes into upright Stand To Sit: Maximal Assistance, Additional Information (x2) lowered height of bed; pt needs assist to lower--pt and report that his knees give out (more content not included)... Normal [facility] CBC panel Auto (Bld)on 02-27 Erythrocyte distribution width (RBC) [Ratio] 12.5 % Normal 11.5-15.0 [facility] Comment on above: Order Comment: Melia zuluaga Type: BLOOD SPECIMEN [facility] Address: [address] [place] [address] Performed By: #### 5 8410-2 #### [employer] [facility] CLIA [id number] [address] STATES OF [facility] Hematocrit (Bld) [Volume fraction] 37.9 % Low 39.0-51.0 [facility] Comment on above: Order Comment: Melia zuluaga Type: BLOOD SPECIMEN [facility] Address: [address] [place] [address] Performed By: #### 5 8410-2 #### [facility] CLIA [id number] [address] [place] [address] [place] Hemoglobin (Bld) [Mass/Vol] 12.4 g/dL Low 13.0-17.0 [facility] Comment on above: Order Comment: Melia zuluaga Type: BLOOD SPECIMEN [facility] Address: [address] [place] [address] Performed By: #### 5 8410-2 #### [facility] CLIA [id number] [address] MCH (RBC) [Entitic mass] 32.0 pg Normal 26.0-34.0 [facility] Comment on above: Order Comment: Speci men Type: BLOOD SPECIMEN [facility] Address: [address] [place] [address] Performed By: #### 5 8410-2 #### [facility] CLIA [id number] [address] MCHC (RBC) [Mass/Vol] 32.7 g/dL Normal 30.5-36.0 [facility] Comment on above: Order Comment: Speci men Type: BLOOD SPECIMEN [facility] Address: [address] [place] [address] Performed By: #### 5 8410-2 #### [facility] CLIA [id number] [address] MCV (RBC) [Entitic vol] 97.7 fL Normal 80.0-100.0 [facility] Comment on above: Order Comment: Speci men Type: BLOOD SPECIMEN [facility] Address: [address] [place] [address] Performed By: #### 5 8410-2 #### [facility] CLIA [id number] [address] Nucleated RBC (Bld) [#/Vol] 10*3/uL Normal <0.01 [facility] Comment on above: Order Comment: Speci men Type: BLOOD SPECIMEN [facility] Address: [address] [place] [address] Performed By: #### 5 8410-2 #### [facility] CLIA [id number] [address] OF [facility] Platelet mean volume (Bld) [Entitic vol] 10.4 fL Normal 9.0-12.7 [facility] Comment on above: Order Comment: Speci men Type: BLOOD SPECIMEN [facility] Address: [address] [place] [address] Performed By: #### 5 8410-2 #### [facility] CLIA [id number] [address] OF [facility] Platelets (Bld) [#/Vol] 173 10*3/uL Normal 150-400 [facility] Comment on above: Order Comment: Speci men Type: BLOOD SPECIMEN [facility] Address: [address] [place] [address] Performed By: #### 5 8410-2 #### [facility] CLIA [id number] [address] OF [facility] RBC (Bld) [#/Vol] 3.88 10*6/uL Low 4.20-6.00 [facility] Comment on above: Order Comment: Speci men Type: BLOOD SPECIMEN [facility] Address: [address] [place] [address] Performed By: #### 5 8410-2 #### [facility] CLIA [id number] [address] WBC (Bld) [#/Vol] 6.76 10*3/uL Normal 3.70-11.00 [facility] Comment on above: Order Comment: Speci men Type: BLOOD SPECIMEN [facility] Address: [address] [place] [address] Performed By: #### 5 8410-2 #### [facility] CLIA [id number] [address] CONSULTon 02-27-2025 CONSULT HNO ID: [id number] Author: RONDA DUMONT APRN.BACKER UP Service: Geriatrics Author Type: Nurse Specialist Type: Consults Filed: 02/27/2025 12:47 Note Text: GERIATRIC SURGERY SERVICE CONSULT NOTE PATIENT NAME: Jeanie Rankin [id number]* CONSULT TO GERIATRICS (AK) Consult performed by: Ronda Dumont APRN.BACKER UP Consult ordered by: Nadiya Camilo MD Reason for consult: Age 84 HISTORY OF PRESENT ILLNESS: Jeanie Rankin is a 84 year old male with a past medical history of nodular B cell lymphoma 2007, esophagitis, hiatal hernia, diverticulosis, fout, , HTN, hypogonadism, IBM, and osteoporosis who was admitted on 02/24/2025 for gastric outlet obstruction. Patient went to [facility] ED for recurrent emesis, imaging revealed large hiatal hernia containing a significant portion of the gastric body and subsequently causing gastric outlet obstruction . NGT was placed and was transferred to [facility] for evaluation. Patient was admitted under medicine to [facility]. General surgery was consulted, had discussion for possible surgical intervention and patient stated he did not want surgery at this time, GI consulted for EGD. Elective surgery also consulted, recommending outpatient follow-up to discuss potential surgical intervention. Determined to be LOW RISK for delirium with DEAR assessment. Negative BCAM noted. Patient is awake and oriented, blinds not open. Pleasant and cooperative. Able to state name, age, , place, month, year, why he is at the hospital and hospital course. Does not appear to be hallucainting. Slept ok, no pain or nausea, tolerating liquids. Information was obtained from patient and . Mentation- AANDO X3, denies history of cognitive impairment, dementia, or delirium, denies problems with memory or cognition, family denies concerns for memory or cognition Sensory impairment- wears corrective lenses. does not have hearing aids. Home- Lives at home with with many accomodation devices. Lives in finished basement, needs assistance in B-ADLs, needs some assistance in I-ADLs, no longer driving. Mobility- Endorses falls Uses a walker, lift assist devices and lift toilet. Appetite- States appetite has been decreased, endorses 5-6lbs weight loss over the last 6 months Mood- stable mood Sleep- Denies problems with sleep Hospitalizations- No other ED visits or hospital admissions noted within the last 6 months. Denies tobacco, alcohol, or illicit drug use. Subjective PCP: No primary care provider on file. Past Medical History: PAST MEDICAL HISTORY Diagnosis Date Anemia, unspecified Benign neoplasm of colon Diverticulosis of colon (without mention of hemorrhage) Esophagitis Family history of malignant neoplasm of gastrointestinal tract Family history of malignant neoplasm of gastrointestinal tract Gout, unspecified right toe Internal hemorrhoids without mention of complication Myalgia and myositis, unspecified inclusion of body Nodular lymphoma B CELL Other abnormal clinical finding low testosterone Other specified gastritis Personal history of colonic polyps Unspecified essential hypertension Past Surgical History: PAST SURGICAL HISTORY Procedure Laterality Date COLONOSCOPY FLX DX W/COLLJ SPEC WHEN PFRMD 06/29/00 Colonoscopy COLONOSCOPY FLX DX W/COLLJ SPEC WHEN PFRMD 10/02/03 Colonoscopy COLONOSCOPY FLX DX W/COLLJ SPEC WHEN PFRMD 09/28/2006 Colonoscopy COLONOSCOPY FLX DX W/COLLJ SPEC WHEN PFRMD 11/21/10 ESOPHAGOGASTRODUODENOSCOPY TRANSORAL DIAGNOSTIC 10/02/03 EGD ESOPHAGOGASTRODUODENOSCOPY TRANSORAL DIAGNOSTIC 09/28/2006 EGD INSJ TUNNELED CTR VAD W/SUBQ PORT AGE 5 YR/> 02/07/08 R IJ POWER PORT PAST SURGICAL HISTORY OF 07/18/02 cyst removed from right chest PAST SURGICAL HISTORY OF 07/19/01 cyst removed from back of right calf TONSILLECTOMY PRIMARY/SECONDARY Tonsillectomy ansd adnoids Family History: FAMILY HISTORY Problem Relation Age of Onset Colon Cancer Mother Colon Cancer Father Diabetes Father borderline ,not medicated Cancer Maternal Aunt Cancer Maternal Uncle Social History: SOCIAL HISTORY[1] Medications: BOTH INPATIENT AND OUTPATIENT MEDICATIONS REVIEWED: Yes OARRS Check: PDMP website checked and validated. No controlled substance prescriptions were reported. 02/27/2025 by Ronda Dumont APRN.BACKER UP Current Facility-Administered Medications Medication Dose Route Frequency NaCl 0.9% iv flush bag 20 mL INTRAVENOUS PRN ondansetron (PF) 4 mg injection (ZOFRAN) 4 mg INTRAVENOUS q 6 H PRN morphine 2 mg injection 2 mg INTRAVENOUS q 4 H PRN sodium chloride 0.9 % (flush) 2-10 mL (BD POSIFLUSH) 2-10 mL INTRAVENOUS DIRECTED PRN Allergies: Allergies As of Date: 02/24/2025 Allergen Noted Reaction ADHESIVE 03/18/2009 NEOSPORIN [[id number]*08/0 07/2005 Rash and Itching Fully Assessed 02/24/2025 Review of Systems Constitutional: Positive (more content not included)... Normal [facility] CONSULT PROGon 02-27-2025 CONSULT PROG HNO ID: [id number] Author: JOSE DAVIS APRN.ALINE Service: Clinical Cardiology Author Type: Nurse Practitioner Type: Consult Progress Note Filed: 02/27/2025 14:17 Note Text: CARDIOLOGY CONSULT PROGRESS NOTE CARDIOLOGY ATTENDING: Rick Brito M.D. Date and Reason for initial consult: Preop risk assessment INTERVAL HISTORY: This is an 84-year-old male with past medical history significant for hypertension, inclusion body myositis, lymphoma, and hiatal hernia who initially presented to [facility] ED 02/24/2025 with complaints of abdominal pain, nausea and vomiting x 3 days. CTAP showed large hiatal hernia with gastric outlet obstruction, NG tube was placed. He was transferred to [facility] 02/25/2025. He underwent EGD in 02/26 which showed LA grade C esophagitis with no bleeding, gastric stenosis with edema and mild erythema in the gastric antrum, prepylorus and duodenal bulb. Surgical team following, plans for potential surgery on Sunday for repair of hiatal hernia. Cardiology was consulted for preop risk assessment. Patient was evaluated by Dr. Brito. On admission, high-sensitivity DEANDRE 81>75. EKG showed sinus bradycardia, right bundle branch block and T wave inversions in anterolateral leads. Patient is relatively inactive, unable to achieve 4 METS of activity and abnormal EKG he was recommended for a nuclear stress test prior to surgery. Stress test was completed today, this was an intermediate risk scan. Showed moderate 10 to 20% ischemia in the territory of the RCA, mild <10% ischemia in the territory of the left circumflex and small fixed perfusion defect in the territory of the RCA. These results were reviewed with Dr. Brito. He recommends medical management at this time giving pending surgery and question whether he would be able to take DAPT if interventions were needed. If proceeded with heart catheterization and patient needed stents, this would prevent surgery until later date. Given abnormal stress test this does put him at high risk for a high risk surgery. Patient seen today resting comfortably in bed, in no acute distress. His is at bedside. Stress test results reviewed with patient and his . He denies any complaints of chest pain or shortness of breath. I will let the surgical team know about the abnormal stress test. PERTINENT ROS: All other systems reviewed and found to be negative except those mentioned in the HPI MEDICATIONS: Current Facility-Administered Medications Medication Dose Route Frequency NaCl 0.9% iv flush bag 20 mL INTRAVENOUS PRN ondansetron (PF) 4 mg injection (ZOFRAN) 4 mg INTRAVENOUS q 6 H PRN sodium chloride 0.9 % (flush) 2-10 mL (BD POSIFLUSH) 2-10 mL INTRAVENOUS DIRECTED PRN bisacodyl 10 mg suppository (DULCOLAX) 10 mg RECTAL q 72 HR acetaminophen 1,000 mg CUP (TYLENOL) 1,000 mg ORAL q 6 H morphine 2 mg injection 2 mg INTRAVENOUS q 4 H PRN oxyCODONE 5 mg oral liquid (ROXICODONE) 5 mg ORAL q 4 H PRN [START ON 02/28/2025] enoxaparin 40 mg injection (LOVENOX) 40 mg SUBCUTANEOUS q 24 HR PHYSICAL EXAM: Vital Signs 02/26/25 1844 02/26/25 1930 02/26/25 2259 02/27/25 0156 BP: 156/59 148/61 146/58 141/51 Pulse: (!) 58 (!) 59 (!) 57 (!) 57 Resp: 18 18 17 18 Temp: 37.1 ?C (98.8 ?F) 36.8 ?C (98.2 ?F) 36.9 ?C (98.5 ?F) 36.4 ?C (97.6 ?F) TempSrc: Oral Temporal Oral Temporal SpO2: 95% 94% 95% 93% Weight: Height: Temp (24hrs), Av.8 ?C (98.3 ?F), Min:36.4 ?C (97.6 ?F), Max:37.1 ?C (98.8 ?F) Intake/Output: Intake/Output Summary (Last 24 hours) at 02/27/2025 1342 Last data filed at 02/26/2025 1844 Gross per 24 hour Intake -- Output 250 ml Net -250 ml Oxygen therapy: RA Admit Weight: 141 pounds Gen: AANDO x 3 Neck: no jugular venous distention Cardiac: RRR S1/S2 without murmur, gallop, or rubs. Resp: clear to auscultation bilaterally Abd: Soft, non-tender. Bowel sounds normal. No masses, organomegaly, hernias. Ext: no edema, moves all extremities with no apparent weakness Tele: sinus bradycardia Labs: CK 384 02/18/1999 MB 23.2 02/18/1999 CK MB % 6 02/18/1999 Recent Labs 02/27/25 0605 02/26/25 0437 02/25/25 0332 WBC 6.76 6.77 8.90 HB 12.4* 12.1* 13.8 HCT 37.9* 36.1* 40.1 PLT 173 174 227 Recent Labs 02/27/25 0605 02/26/25 1356 02/26/25 0437 NA 149* 148* 146* K 3.5* 3.4* 2.6* CHLOR 102 100 99 CO2 35* 36* 37* BUN 29* 22 22 CREAT 0.46* 0.45* 0.40* GLUC 81 74 85 ALKPHOS 51 -- 51 ALT 11 -- 11 AST 18 -- 20 No results found for this basename: chol,hdl,ldl DATA: EKG 02/25/2025: Sinus bradycardia, right bundle branch block, anterolateral T wave inversions Echocardiogram TTE, 02/27/2024: Hyperdynamic LV systolic function with EF of 74%, normal wall motion, RV normal in size and systolic function, LA mildly dilated, no significant valvular abnormalities Stress testing NM stress test, 02/23/2025: Mild ischemia in the territory of the LCx, moderate isch (more content not included)... Normal [facility] CONSULT PROG HNO ID: [id number] Author: BLAINE CASIANO MD Service: General Surgery Author Type: Resident Type: Consult Progress Note Filed: 02/27/2025 08:18 Note Text: Attestation signed by Jose Hayes MD at 02/27/2025 12:34 PM (Updated) Attending Note I evaluated the patient and personally participated in the [place] components. I agree with the resident's findings and plan with the following revisions and/or additions: Reviewed speech note, will start FLD with ensure shakes for protein intake Given minimal PO intake due to his partial GOO, I do recommend PPN until surgery to be able to optimize his protein intake Recommend PT/OT to see him multiple times to improve his mobility given he is limited Family asking about restarting his lisinopril for BP will defer to cards and medicine team Plan for surgery on Signature: Jose Hayes MD Date: 02/27/2025 Time: 12:32 PM Elective General Surgery (Green Surgery) Progress Note SERVICE DATE: February 27, 2025 Elective General Surgery (Green Surgery) Service Pager: For questions or concerns Sun-Sun 6a-5p please page [phone]. After 5pm and on Weekends and Holidays, please page [phone]. SUBJECTIVE: Patient had EGD yesterday notable for swelling of the pylorus with difficulty insufflating into the duodenum giving narrowing. Biopsies were obtained. Patient states he passed flatus. Denies any nausea, vomiting, or abdominal pain. Tolerating diet DIET NPO OBJECTIVE: Vitals: Temp (24hrs), Av.8 ?C (98.2 ?F), Min:36.4 ?C (97.6 ?F), Max:37.1 ?C (98.8 ?F) BP 141/51 Pulse (!) 57 Temp 36.4 ?C (97.6 ?F) (Temporal) Resp 18 Ht 175.3 cm (5' 9") Wt 64.2 kg (141 lb 8.6 oz) SpO2 93% BMI 20.90 kg/m? O2 Therapy: Room Air IANDO: Date 02/26/25 07 - 02/27/25 0659 02/27/25 0700 - 02/28/25 0659 Shift 7099-9680 5871-1899 3381-6044 24 Hour Total 9768-2898 7427-8859 1874-4312 24 Hour Total INTAKE Shift Total OUTPUT Urine 150 250 400 Void (ml) 150 250 400 Tubes 700 700 Output mL (I/O) ([REMOVED] GI/ Feeding 02/24/25 External Facility Left Naris 02/26/25 1125) 700 700 Shift Total 814 430 4954 Weight (kg) 64.2 64.2 64.2 64.2 64.2 64.2 64.2 64.2 MEDICATIONS: Current Facility-Administered Medications Medication Dose Route Frequency sodium chloride 0.9 % (flush) 2-10 mL (BD POSIFLUSH) 2-10 mL INTRAVENOUS DIRECTED PRN NaCl 0.9% iv flush bag 20 mL INTRAVENOUS PRN ondansetron (PF) 4 mg injection (ZOFRAN) 4 mg INTRAVENOUS q 6 H PRN morphine 2 mg injection 2 mg INTRAVENOUS q 4 H PRN Labs: Recent Labs 02/27/25 0605 02/26/25 1356 02/26/25 0437 02/25/25 0332 02/25/25 0159 NA 149* 148* 146* < > -- K 3.5* 3.4* 2.6* < > -- CHLOR 102 100 99 < > -- CO2 35* 36* 37* < > -- BUN 29* 22 22 < > -- CREAT 0.46* 0.45* 0.40* < > -- GLUC 81 74 85 < > -- ANION 12 12 10 < > -- CA 9.1 9.3 9.3 < > -- MG 2.2 -- 2.3 -- -- P 3.1 -- 2.7 -- -- ALB 3.5* -- 3.5* -- -- AST 18 -- 20 -- -- ALT 11 -- 11 -- -- ALKPHOS 51 -- 51 -- -- TBILI 0.7 -- 0.6 -- -- WBC 6.76 -- 6.77 < > -- HB 12.4* -- 12.1* < > -- HCT 37.9* -- 36.1* < > -- PLT 173 -- 174 < > -- LACT -- -- -- -- 1.2 < > = values in this interval not displayed. Physical Exam: GENERAL: resting comfortably, in no acute distress HEENT: normocephalic, atraumatic, EOMI NECK: trachea midline, no JVD LUNGS: Unlabored breathing, equal chest rise bilaterally CARDIAC: Regular rate, warm extremities, good perfusion throughout ABDOMEN: Soft, non-tender, non-distended. No rebound or guarding, . EXTREMITIES: VELASCO, No deformities, No edema SKIN: Skin color, texture, turgor normal, No rashes or lesions NEURO: AANDOx3, CN II-XII grossly intact PSYCH: normal mood and affect ASSESSMENT AND PLAN: Assessment Active Hospital Problems Diagnosis Date Noted Gastric outlet obstruction (HCC) 02/25/2025 Abnormal EKG 02/26/2025 Pre-operative cardiovascular examination 02/26/2025 Demand ischemia (HCC) 02/26/2025 Primary hypertension 10/06/2005 Assessment: 84 year old male w/ below medical hx admitted today for GOO. Obstructive symptoms started roughly [address] significant for large hiatal hernia w/ stomach and duodenum and mentioned GOO. NG placement and repeat CT w/ satisfactory placement and decompression. Labs have been unremarkable. Hospital Course/Operations/Procedures : * No surgery found * Plan: GOO 2/2 Large Hiatal Hernia - Plan for surgery on Sunday for a full repair - Cards consulted for preop risk assessment - needs stress test - Speech pending, Ok for Liquid diet and supplements. Ok with PPN. Discussed with attending: Dr. Hayes Follow up needs: TBD SIGNATURE: Blaine Casiano MD PATIENT NAME: Jeanie Rankin DATE: February 27, 2025 TIME: 6:55 AM Pager: s (more content not included)... Normal [facility] Comprehensive metabolic 2000 panelon 02-27-2025 Albumin [Mass/Vol] 3.5 g/dL Low 3.9-4.9 [facility] Comment on above: Order Comment: Speci men Type: BLOOD SPECIMEN Ordering Facility: [facility] Address: [address] [place] [address] Performed By: #### 2 777-1, 34603-4, 22354-1 #### [facility] CLIA [id number] 1 [place] [address] [place] ALP [Catalytic activity/Vol] 51 U/L Normal 38-113 [facility] Comment on above: Order Comment: Speci men Type: BLOOD SPECIMEN Ordering Facility: [facility] Address: [address] [place] [address] Performed By: #### 2 777-1, 67680-9, #### [facility] CLIA [id number] [address] [place] ALT With P-5'-P [Catalytic activity/Vol] 11 U/L Normal 10-54 [facility] Comment on above: Order Comment: Speci men Type: BLOOD SPECIMEN Ordering Facility: [facility] Address: [address] [place] [address] Performed By: #### 2 777-1, , #### [facility] CLIA [id number] [address] [place] Anion gap [Moles/Vol] 12 mmol/L Normal 8-15 [facility] Comment on above: Order Comment: Speci men Type: BLOOD SPECIMEN Ordering Facility: [facility] Address: [address] [place] [address] Performed By: #### 2 777-1, , #### [facility] CLIA [id number] [address] [place] [facility] AST With P-5'-P [Catalytic activity/Vol] 18 U/L Normal 14-40 [facility] Comment on above: Order Comment: Speci men Type: BLOOD SPECIMEN Ordering Facility: [facility] Address: [address] [place] [address] Performed By: #### 2 777-1, 10186-8, #### [facility] CLIA [id number] [address] [place] Bilirubin [Mass/Vol] 0.7 mg/dL Normal 0.2-1.3 [facility] Comment on above: Order Comment: Speci men Type: BLOOD SPECIMEN Ordering Facility: [facility] Address: [address] [place] [address] Performed By: #### 2 777-1, 34184-9, #### [facility] CLIA [id number] 1 [place] [address] [place] Calcium [Mass/Vol] 9.1 mg/dL Normal 8.5-10.2 [facility] Comment on above: Order Comment: Speci men Type: BLOOD SPECIMEN Ordering Facility: [facility] Address: [address] [place] [address] Performed By: #### 2 777-1, 71485-1, #### [facility] CLIA [id number] 1 [place] [address] [place] Chloride [Moles/Vol] 102 mmol/L Normal 98-107 [facility] Comment on above: Order Comment: Speci men Type: BLOOD SPECIMEN Ordering Facility: [facility] Address: [address] [place] [address] Performed By: #### 2 777-1, , #### [facility] CLIA [id number] 1 [place] [address] [place] CO2 [Moles/Vol] 35 mmol/L High 22-30 [facility] Comment on above: Order Comment: Speci men Type: BLOOD SPECIMEN Ordering Facility: [facility] Address: [address] [place] [address] Performed By: #### 2 777-1, , #### [facility] CLIA [id number] 1 [place] [address] [place] Creatinine [Mass/Vol] 0.46 mg/dL Low 0.73-1.22 [facility] Comment on above: Order Comment: Speci men Type: BLOOD SPECIMEN Ordering Facility: [facility] Address: [address] [place] [address] Performed By: #### 2 777-1, 40748-7, #### [facility] CLIA [id number] 1 [place] [address] [place] eGFRcr SerPlBld CKD-EPI 2020 102 mL/min/1.73m??? Normal >=60 [facility] Comment on above: Order Comment: Melia zuluaga Type: BLOOD SPECIMEN Ordering Facility: [facility] Address: [address] [place] [address] Result Comment: Genet mated Glomerular Filtration Rate (eGFR) is calculated using the 2020 CKD-EPI creatinine equation. This equation utilizes serum creatinine, sex, and age as parameters. The creatinine assay has traceable calibration to isotope dilution-mass spectrometry. Refer to KDIGO guidelines for clinical interpretation. In patients with unstable renal function, e.g. those with acute kidney injury, the eGFR may not accurately reflect actual GFR. Performed By: #### 2 777-1, 64303-8, #### [facility] CLIA [id number] 1 [place] [address] [place] Glucose [Mass/Vol] 81 mg/dL Normal 74-99 [facility] Comment on above: Order Comment: Melia zuluaga Type: BLOOD SPECIMEN Ordering Facility: [facility] Address: [address] [place] [address] Result Comment: The [place] Diabetes [employer] (ADA) provides guidance for cutoff values for fasting glucose and random glucose. The ADA defines fasting as no caloric intake for at least 8 hours. Fasting plasma glucose results between 100 to 125 mg/dL indicate increased risk for diabetes (prediabetes). Fasting plasma glucose results greater than or equal to 126 mg/dL meet the criteria for diagnosis of diabetes. In the absence of unequivocal hyperglycemia, results should be confirmed by repeat testing. In a patient with classic symptoms of hyperglycemia or hyperglycemic crisis, random plasma glucose results greater than or equal to 200 mg/dL meet the criteria for diagnosis of diabetes. Reference: Standards of Medical Care in Diabetes 2016, [place] [employer]. Diabetes Care. 2016.39(Suppl 1). Performed By: #### 2 777-1, 61055-0, #### [facility] CLIA [id number] 1 [place] [address] [place] Potassium [Moles/Vol] 3.5 mmol/L Low 3.7-5.1 [facility] Comment on above: Order Comment: Speci men Type: BLOOD SPECIMEN Ordering Facility: [facility] Address: [address] [place] [address] Performed By: #### 2 777-1, 44715-0, #### [facility] CLIA [id number] 1 [place] [address] [place] Protein [Mass/Vol] 6.1 g/dL Low 6.3-8.0 [facility] Comment on above: Order Comment: Speci men Type: BLOOD SPECIMEN Ordering Facility: [facility] Address: [address] [place] [address] Performed By: #### 2 777-1, , #### [facility] CLIA [id number] 1 [place] [address] [place] Sodium [Moles/Vol] 149 mmol/L High 136-144 [facility] Comment on above: Order Comment: Speci men Type: BLOOD SPECIMEN Ordering Facility: [facility] Address: [address] [place] [address] Performed By: #### 2 777-1, , #### [facility] CLIA [id number] 1 [place] [address] [place] Urea nitrogen [Mass/Vol] 29 mg/dL High 9-24 [facility] Comment on above: Order Comment: Speci men Type: BLOOD SPECIMEN Ordering Facility: [facility] Address: [address] [place] [address] Performed By: #### 2 777-1, , #### [facility] CLIA [id number] 1 [place] [address] [place] Magnesium SerPl-mCncon 02-27 Magnesium [Mass/Vol] 2.2 mg/dL Normal 1.7-2.3 [facility] Comment on above: Order Comment: Speci men Type: BLOOD SPECIMEN Ordering Facility: [facility] Address: [address] [place] [address] Performed By: #### 2 777-1, 93061-8, 24136-3 #### [facility] CLIA [id number] [address] STATES [place] [facility] NM CARDIAC PERF STRESS/PHARM on 02-27-2025 NM CARDIAC PERF STRESS/PHARM * * *Final Report* * * DATE OF EXAM: Feb 27 2025 10:28AM [facility] 0006 - NM CARDIAC PERF STRESS/PHARM / PROCEDURE REASON: CAD screening, low CAD risk * * * * Physician Interpretation * * * * Stress Optical Laboratory Technician Report: [facility] Date of service: 02/27/2025 7:52:00 AM Supervising physician: Shawn Everett MD PATIENT: Name: MR. JEANIE RANKIN Age: 84 years Gender: M The supervising physician was in the department and immediately available. * * * Final * * * PATIENT: Name: MR. JEANIE RANKIN Age: 84 years Gender: M CONCLUSIONS: 1. SPECT Perfusion Study: Abnormal. 2. There is mild (<10%) ischemia in the territory of the LCX. 3. There is moderate (10-20%) ischemia in the territory of the RCA. 4. There is a small (<10%) fixed perfusion defect in the RCA territory. 5. Left ventricle is normal in size. The left ventricle systolic function is hyperdynamic. 6. Right ventricle is normal in size. The right ventricle systolic function is normal. 7. This is an intermediate risk scan. Gated Stress IR LVEF % 78 Prior Study Comparison No prior nuclear cardiology exam available for comparison. Nuclear Med Report:1-Day Gated SPECT Myocardial Perfusion with Regadenoson Stress: Myocardial perfusion imaging was performed at rest 30 minutes following the IV injection of the radiotracer. The patient received 0.4 mg of regadenoson, via rapid IV push, immediately followed by radiotracer IV. Gated post stress tomographic imaging was performed 30 to 60 minutes later. See administered radiotracer and doses below. [facility] Date of service: 02/27/2025 7:52:00 AM Ordering Physician: KAREEM PEREZ. Requesting Physician: Indication: Preop eval for noncard surg with high risk, poor exercise tolerance Interpreting physician: Shawn Everett MD Height: 175.00 cm BSA: 1.76 m? Weight: 64.00 kg BMI: 20.9 kg/m? Imaging Protocol Limitation Reason Liver Retention. Exam Type: Rest Stress Radiopharm: Tc-99m Tetrofosmin Tc-99m Tetrofosmin Dosage(mCi): 12.9 35.8 Stress Agent: Regadenoson 0.4mg Supply provided from [facility] Resting Blood Press: 156/72 mmHg Image Quality The overall study imaging quality was deemed to be fair. The following technical issues were noted: Liver Retention. FINDINGS: Left Ventricle Wall Motion: Stress IR - The inferior wall is hypokinetic. The apical inferior segment is equivocal. All remaining scored segments are normal. Rest IR - Gated Stress IR - Reversibility - Stress IR Stress IR Gated Stress IR LVEF: 78 % ED Volume: 40 ml ES Volume: 9 ml TID: 0.67 Perfusion Findings Stress IR - Summed Score=13 There is a severe perfusion defect in the inferior wall. There is a moderate perfusion defect in the mid and distal lateral wall and posterior wall. There is a mild perfusion defect in the apical inferior segment. All remaining scored segments show normal perfusion. Rest IR - Summed Score=4 There is a mild perfusion defect in the mid and distal lateral wall and inferior wall. All remaining scored segments show normal perfusion. Stress IR Rest IR Summed Score=13 Summed Score=4 LEFT VENTRICLE The left ventricle is normal in size. Left ventricular systolic function is hyperdynamic. Right Ventricle The right ventricle is normal in size. Right ventricle systolic function is normal. * * * Final * * * Stress ECG Report: [facility] Date of service: 02/27/2025 7:52:00 AM Ordering physician: KAREEM PEREZ pc support specialist: Mushtaq Storey RN [employer]ing Machine Operator: Drew Calvin CEP Interpreting physician: Shawn Everett MD Patient name: MR. JEANIE RANKIN Age: 84 years Gender: M Height: 175.00 cm BSA: 1.76 m? Weight: 64.00 kg BMI: 20.9 kg/m? Indication: Encounter for pre-procedural cardiovascular examination for non-cardiac surgery Stress ECG Conclusion: Conclusion: Normal with exception Comments: Baseline T wave inversions in inferolateral leads that worsened during stress Stress ECG Summary: The patient's resting heart rate was 53 bpm and blood pressure was 156/72 mmHg. The test was terminated due to end of protocol. Other symptoms during the test included SOB. The maximum heart rate was 88 bpm, which is 66% of the predicted heart rate for age. Peak blood pressure was 172/61 mmHg. The double product achieved was [address]. Medications: Last Used D3, CoQ10, lisinopril, MVI Resting ECG: Sinus Bradycardia, Nonspecific St-T Wave Changes and RBBB Symptoms at r (more content not included)... Normal [facility] Phosphate SerPl-mCncon 02-27 Phosphate [Mass/Vol] 3.1 mg/dL Normal 2.7-4.8 [facility] Comment on above: Order Comment: Speci men Type: BLOOD SPECIMEN [facility]ing Facility: [facility] Address: [address] [place] [address] Performed By: #### 2 777-1, 60895-1, 62800-9 #### [facility] CLIA [id number] 1 [place] [address] [place] THERAPY NTon 02-27-2025 THERAPY NT HNO ID: [id number] Author: WU FLORES PT Service: Physical Therapy Author Type: Physical Therapist Type: Therapy (PT/OT/Speech/Resp) Filed: 02/27/2025 15:45 Note Text: Physical Therapy Evaluation Summary SERVICE DATE: 02/27/2025 SERVICE TIME: 1430 to 1457 ROOM: [address] PT 6 Clicks Score: 8 DISCHARGE RECOMMENDATIONS Home PT Recommended Discharge Disposition Comments: anticipate that once pt can mobilize with his equipment from home he will be ok and mobilize ok to go home Anticipated Discharge Needs: Physical Assist at Home Physical Assist at Home for: Transfers, Ambulation, Cleaning, Laundry, Meals, Medication Management, Safety, Self Care, Shopping, Transportation ASSESSMENT Response to Therapy Interventions: Good Participation in Activities pt able to sit EOB with close SBA; attempted multiple avenues to stand but unable with our wh walker--pt reports that can bring in his rollator walker from home PRECAUTIONS Bed/Chair Alarm, Fall Risk CURRENT HOSPITAL COURSE presented to [facility] with abdominal pain, nausea and vomitting--found to have 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; s/p EGD 02/26; possible plans for hernia repair vs gastropexy next week Relevant Past Medical History: esophagitis, lymphoma, OP, anemia, myalgia/myositis--inclusion body myositis HOME LIVING Patient Lives With: Spouse Assistance Available: Part-Time Entry To Home: Stairs (with stair lift) Number Of Stairs Into Home: (stair lift) Equipment Owned: Lift Chair, Rollator, Shower Chair, Commode- Raised PRIOR FUNCTIONAL LEVEL Required Assistance Assistance Required With: Cleaning, Laundry, Meals, Shopping, Transportation pt very particular about equipment, set up, his AD--pt walks around pool table every time he uses restroom--50 steps and completes 6-7 times per day SUBJECTIVE pt reports that he needs bed set up in particular way and his rollator walker--attempted to complete transfer at bedside with our wh walker but unable to complete with this lever THERAPY DIAGNOSIS Reduced mobility-other, Muscle Weakness (generalized), Unsteadiness on feet, Abnormalities of gait and mobility-other TREATMENT INTERVENTIONS Evaluation, Therapeutic Activity (84980) Timed Code Treatment (minutes): 10 Skilled Treatment Time (minutes): 27 $ Evaluation-Moderate (66358) Billed Units: 1 unit Therapeutic Activity (15975) Treatment Minutes: 10 $ Therapeutic Activity (69969) Billed Units: 1 unit Needed mod A to mobilize to edge of bed--pt usually sleeps in lift chair at baseline; then needed max Ax2 to return to supine and reposition Multiple attempts to stand with height of bed fully elevated and using our walker--but pt unable to complete with this device--distribution accounting clerk aren't long enough and doesn't have correct lever Sat edge of bed for extended time with close stand by assist--pt reports how he mobilizes at home Educated pt and family on trying what we can with PT to ensure safety but pt not able to complete--educated pt, and RN on mobility plan for when she brings in rollator later TRAINING AND EDUCATION PROVIDED Bed Mobility, Benefits of In-Hospital Mobility, Discharge Planning, Falls Prevention, Home Safety, Role of Physical Therapy, Positioning, Transfers, Sitting Balance THERAPEUTIC SKILLS USED Activity Dosing, Assessment of Tolerance Including Vitals Response to Activity, Cues for Sequencing/Proper Technique for Activity, Physical Assist, Movement Facilitation, Muscle Activation Facilitation, Facilitation of Joint Range of Motion FUNCTIONAL STATUS Bed Mobility Supine To Sit: Moderate Assistance, Additional Information able to bring LLE out of bed, needed assist at RLE and needed assist to bring trunk into upright Sit to Supine: Additional Information, Maximal Assistance needed assist to bring LEs and trunk back into bed--pt sleeps in lift chair at baseline Scooting: Stand By Assistance, Additional Information pt able to scoot toward EOB Transfers Sit To Stand: Additional Information attempted multiple ways to stand--height of bed and various heights--lastly fully elevated; wh walker at appropriate height but arm length not correct for pt's needs Bed to Chair Gait Stairs Range of Motion: ROM Limitation Comments ROM Limitation Comments: pt reports that he has no LE strength--has to buckle knees to stand and walk; pt able to bring LLE off bed and needs assist with RLE--getting caught in fitted sheet; pt also reports no UE strength--he usually has hands on rollator walker with long arms and then Ax1 to "wedgie lift" and he locks his knees GOALS Transfer Sit to/from Stand with: Minimal Assistance (height of bed fully elevated with his rollator walker from home) Ambulate with: Contact Guard Assistance Distance: 50 steps Device: Rollator Goal: x12 reps bilat LE AAROM exericses in supine Rehab Potential: Fair (more content not included)... Normal [facility] THERAPY NT HNO ID: [id number] Author: MIRTA LEON CCC-FILER AND SANDER Service: Speech/Swallow Author Type: Speech Language Pathologist Type: Therapy (PT/OT/Speech/Resp) Filed: 02/27/2025 11:16 Note Text: Speech Therapy Clinical Swallow Evaluation SERVICE DATE: 02/27/2025 SERVICE TIME: 1042 to 1104 ROOM: [id number] IMPRESSION Swallow Deficits Identified / Suspected: Oropharyngeal dysphagia, Concern for possible esophageal impairment RECOMMENDATIONS Diet Recommendations As medically able: Minced and Moist IDDSI Level 5 Thin Liquids IDDSI Level 0 Liquid medications if available Swallow Strategy Recommendations 1:1 Supervision Feed / Eat at a slow rate Sit upright 90 degrees for all PO Small Bite/Sip Rigid Oral Hygiene Chin tuck to the right Nursing Recommendations Reinforce use of swallowing strategies Recommended Consults Dietitian Response to Therapy Interventions: Good participation in activities, Receptive family/caregivers Rehabilitation Precautions: Aspiration Precautions, Dysphagia DISCHARGE RECOMMENDATIONS Recommended Discharge Disposition: Continued Skilled Speech Therapy CURRENT HOSPITAL COURSE Admitted with abdominal pain, nausea and vomiting. 02/24 CT Chest: large hiatel hernia containing large portion of gastric body and short segment of duodenum. NG for decompression. 02/26 EGD: esophagitis, gastric stenosis with edema and mild erythema. Reason for Speech Therapy Consult: dysphagia Relevant Past Medical History: inclusion body myositis, dysphagia, hiatal hernia HOME ENVIRONMENT / PRIOR FUNCTIONAL LEVEL Prior Functional Level: Required Assistance Patient Lives With: Spouse Assistance Available: PRN Prior Swallowing Function/Diet Textures: Minced and Moist IDDSI Level 5, Thin Liquids IDDSI Level 0 SUBJECTIVE Alert, up in bed and agreeable to evaluation THERAPY DIAGNOSIS Dysphagia, oropharyngeal phase TREATMENT INTERVENTIONS Clinical Swallow Evaluation (28765) Skilled Treatment Time (minutes): 22 $ Clinical Swallow Evaluation (92706) Billed Units: 1 unit TRAINING AND EDUCATION PROVIDED IN Dysphagia Management, Dietary Consistencies, Swallowing Strategies THERAPEUTIC SKILLS USED Discharge planning, Education on role of discipline / importance of activity, Family / caregiver counseling / training, Verbal cuing OBJECTIVE Current Status Oral Hygiene: Clear, dry oral cavity, Oral Health Assessment Tool (OHAT) Dentition: Retains Natural Dentition Current Feeding Method: IV Current Diet Textures: NPO Current Level Of Communication: Verbal, Dysarthria Current Management Of Secretions: Able to self-manage Oral Motor Exam: Within Functional Limits Except Labial Assessment: Generalized weakness Lingual Assessment: Generalized weakness ORAL HEALTH ASSESSMENT TOOL Lips: 0 Tongue: 0 Gums and Tissues: 0 Saliva: 1 Natural Teeth: 1 Dentures: N/A Oral Cleanliness: 0 Dental Pain: 0 OHAT Total Score: 2 SWALLOW ASSESSMENT Position Of Patient During Assessment: Upright In Bed Feeding Method: Patient Self-Fed Consistencies Presented: Thin Liquids IDDSI Level 0, Pureed Solids IDDSI Level 4, Solid Thin Liquids Pharyngeal Phase: Multiple Swallows, Suspect Delayed Swallow, Suspect Reduced Range of Hyoid/Laryngeal Elevation Pureed Solids Pharyngeal Phase: Suspect Delayed Swallow, Suspect Reduced Range of Hyoid/Laryngeal Elevation Solid Oral Phase: Impaired Mastication Solid Pharyngeal Phase: Suspect Delayed Swallow, Suspect Reduced Range of Hyoid/Laryngeal Elevation Compensatory Strategies Utilized During Assessment: 1:1 Supervision, Chin tuck to the right, Feed / Eat at a slow rate, Sit upright 90 degrees for all PO, Small Bite/Sip Previous Swallow Study: MBS (reportedly a few years ago) -Deferred 3 oz water challenge -Patient stated he is not interested in updated instrumental assessment though did report that dysphagia has worsened since last Modified Barium Swallow -Plan OR next Sunday for hernia repair, may improve some of his dysphagia symptoms but suspect much of his dysphagia symptoms are chronic from his inclusion body myositis GOALS SWALLOWING: Patient / Caregiver will demonstrate knowledge of taught compensatory strategies and dietary consistency recommendations to optimize functional swallow function without overt clinical signs and symptoms of aspiration or dysphagia Swallow Goals: Patient will tolerate Minced and Moist IDDSI Level 5 diet consistency while utilizing compensatory/swallowing strategies given minimal cues in 90% of trials so that the patient will minimize the signs/symptoms of dysphagia. Patient will tolerate Thin Liquids IDDSI Level 0 consistency while utilizing compensatory/swallowing strategies given minimal cues in 90% of trials so that the patient will minimize the signs/symptoms of dysphagia. Patient, Caregiver, Family will demonstrate adequate return of knowledge of all compensatory (more content not included)... Normal [facility] ANES POSTPROC EVALon 025 ANES POSTPROC EVAL HNO ID: [id number] Author: BELEN SPRING MD Service: Anesthesiology Author Type: Anesthesiologist Type: Anesthesia Postprocedure Evaluation Filed: 02/26/2025 13:19 Note Text: POST ANESTHESIA EVALUATION NOTE : 1940 Procedure Summary Date: 02/26/25 Room / Location: [facility] Anesthesia Start: 1104 Anesthesia Stop: 1201 Procedure: EGD DIAGNOSTIC Diagnosis: Gastric outlet obstruction (HCC) Gastric outlet obstruction (HCC) (Suspected gastric outlet obstruction) Scheduled Providers: Nadiya Camilo MD Responsible Provider: Belen Spring MD Anesthesia Type: general ASA Status: 3 Anesthesia Type: general Airway Type: ETT Last Vitals Vitals Value Taken Time BP 170/54 02/26/25 13:00 Temp 36.8 ?C (98.3 ?F) 02/26/25 12:30 Pulse 54 02/26/25 13:00 Resp 21 02/26/25 13:00 SpO2 100 % 02/26/25 13:00 Vitals shown include unfiled device data. Post Anesthesia Patient Status Patient Evaluation: PACU. PACU/ICU Patient Condition: stable. Anticipated Disposition: inpatient floor planned admission. Neurological Status: aware and responsive. Pulmonary Status: breathing comfortably on supplemental oxygen Airway Control: returned to baseline unsupported. Cardiovascular Status: stable. Pain Management: clinically adequate Postoperative Hydration: acceptable. Intraoperative Events: no significant anesthesia events Post Operative Nausea/Vomiting Status: no significant post operative nausea or vomiting Recommendation: continue current plan of care. Anesthesia Observations No Documentation SIGNATURE: Belen Spring MD PATIENT NAME: Jeanie Rankin DATE: February 26, 2025 TIME: 1:19 PM CSN: [id number] Normal [facility] ANES PRE-OPon 02-26-2025 ANES PRE-OP HNO ID: [id number] Author: BELEN SPRING MD Service: Anesthesiology Author Type: Anesthesiologist Type: Anesthesia Preprocedure Evaluation Filed: 02/26/2025 10:52 Note Text: ANESTHESIOLOGY DAY OF SURGERY NOTE : 1940 Procedure Information Date/Time: 02/26/25 1115 Scheduled providers: Nadiya Camilo MD Procedure: EGD DIAGNOSTIC Location: [facility] Estimated body mass index is 20.9 kg/m? as calculated from the following: Height as of this encounter: 175.3 cm (5' 9"). Weight as of this encounter: 64.2 kg (141 lb 8.6 oz). 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 Mallampati: II. TM distance: <3 FB. Neck ROM: limited flexion and extension. Mouth opening: >3 FB. Short neck: no. Thick neck: no DENTAL Dental findings: poor dentition. II - ANESTHESIA PLAN ASA Score: 3 Anesthetic Plan: general Airway type: ETT The patient is not a current smoker. NPO Status: adequate Anesthetic plan additional comments: RSI. Beta Kelli Administration of chronic beta kelli medication not planned. Monitoring Plan Monitoring plan: standard ASA. Post Procedure Analgesic Plan Postoperative analgesic plan: parenteral or oral opioids. Informed Consent Anesthetic risks, benefits, alternatives, personnel and consent discussed: yes. Patient / Responsible [employer] agrees to proceed: yes Patient / Surrogate agrees to blood products: blood products not planned DNR status reviewed with patient and/or family prior to surgery. patient elects to suspend DNR status in the perioperative setting (Full Code). Significant changes in the patient condition since the History and Physical, not otherwise documented in primary service progress note: no. Vitals Value Taken Time BP 175/55 02/26/25 10:20 Pulse 58 02/26/25 10:20 Resp 14 02/26/25 10:20 Temp 36.7 ?C (98.1 ?F) 02/26/25 10:20 SpO2 96 % 02/26/25 10:20 Facility-Administered Medications as of 02/26/2025 Medication Dose Route Frequency [COMPLETED] potassium chloride iv piggyback 20 mEq/100 mL 20 mEq INTRAVENOUS q 1 H lactated ringers iv infusion 5-30 mL/hr INTRAVENOUS CONTINUOUS [Transfer Hold] NaCl 0.9% iv flush bag 20 mL INTRAVENOUS PRN [COMPLETED] potassium chloride iv piggyback 20 mEq/100 mL 20 mEq INTRAVENOUS ONCE [COMPLETED] NaCl 0.9% 1,000 mL iv bolus 1,000 mL INTRAVENOUS ONCE [Transfer Hold] lactated ringers iv infusion 75 mL/hr INTRAVENOUS CONTINUOUS [Transfer Hold] ondansetron (PF) 4 mg injection (ZOFRAN) 4 mg INTRAVENOUS q 6 H PRN [Transfer Hold] morphine 2 mg injection 2 mg INTRAVENOUS q 4 H PRN Outpatient Medications as of 02/26/2025 Medication Sig testosterone (ANDROGEL) 25 mg/ 2.5g (1%) GlPk Apply 2.5 g to affected area once daily. APPLY TO CLEAN, DRY, INTACT SKIN OF THE SHOULDERS AND UPPER ARMS coenzyme Q10 (CO Q-10) 30 mg capsule Take 1 capsule by mouth once daily. Cholecalciferol, Vitamin D3, 2,000 unit ORAL Tab Take by mouth. Take one(1) tablet daily. lisinopril(PRINIVIL 10 MG TAB) Take one(1) tablet daily. MULTIVITAMIN TAB Take one(1) tablet daily. I have interviewed and examined the patient. I have reviewed the medical record and/or the pre-anesthesia evaluation, pertinent labs, and test results. This contains updated information obtained within 48 hours of Surgery/Procedure. SIGNATURE: Belen Spring MD PATIENT NAME: Jeanie Rankin DATE: February 26, 2025 TIME: 10:51 AM CSN: [id number] Normal [facility] Basic metabolic 2000 panelon 02-26-2025 Anion gap [Moles/Vol] 12 mmol/L Normal 8-15 [facility] Comment on above: Order Comment: Speci men Type: BLOOD SPECIMEN Ordering Facility: [facility] Address: [address] [place] [address] Performed By: #### 5 8410-2 #### [facility] CLIA [id number] [address] [place] [address] [place] Calcium [Mass/Vol] 9.3 mg/dL Normal 8.5-10.2 [facility] Comment on above: Order Comment: Speci men Type: BLOOD SPECIMEN Ordering Facility: [facility] Address: [address] [place] [address] Performed By: #### 5 8410-2 #### [facility] CLIA [id number] 1 [place] [address] [place] Chloride [Moles/Vol] 100 mmol/L Normal 98-107 [facility] Comment on above: Order Comment: Speci men Type: BLOOD SPECIMEN Ordering Facility: [facility] Address: [address] [place] [address] Performed By: #### 5 8410-2 #### [facility] CLIA [id number] [address] [place] CO2 [Moles/Vol] 36 mmol/L High 22-30 [facility] Comment on above: Order Comment: Speci men Type: BLOOD SPECIMEN Ordering Facility: [facility] Address: [address] [place] [address] Performed By: #### 5 8410-2 #### [facility] CLIA [id number] [address] [place] Creatinine [Mass/Vol] 0.45 mg/dL Low 0.73-1.22 [facility] Comment on above: Order Comment: Speci men Type: BLOOD SPECIMEN Ordering Facility: [facility] Address: [address] [place] [address] Performed By: #### 5 8410-2 #### [facility] CLIA [id number] [address] eGFRcr SerPlBld CKD-EPI 2020 103 mL/min/1.73m??? Normal >=60 [facility] Comment on above: Order Comment: Speci men Type: BLOOD SPECIMEN Ordering Facility: [facility] Address: [address] [place] [address] Result Comment: Genet mated Glomerular Filtration Rate (eGFR) is calculated using the 2020 CKD-EPI creatinine equation. This equation utilizes serum creatinine, sex, and age as parameters. The creatinine assay has traceable calibration to isotope dilution-mass spectrometry. Refer to KDIGO guidelines for clinical interpretation. In patients with unstable renal function, e.g. those with acute kidney injury, the eGFR may not accurately reflect actual GFR. Performed By: #### 5 8410-2 #### [facility] CLIA [id number] [address] OF [facility] Glucose [Mass/Vol] 74 mg/dL Normal 74-99 [facility] Comment on above: Order Comment: Speci men Type: BLOOD SPECIMEN Ordering Facility: [facility] Address: [address] [place] [address] Result Comment: The [place] Diabetes [employer] (ADA) provides guidance for cutoff values for fasting glucose and random glucose. The ADA defines fasting as no caloric intake for at least 8 hours. Fasting plasma glucose results between 100 to 125 mg/dL indicate increased risk for diabetes (prediabetes). Fasting plasma glucose results greater than or equal to 126 mg/dL meet the criteria for diagnosis of diabetes. In the absence of unequivocal hyperglycemia, results should be confirmed by repeat testing. In a patient with classic symptoms of hyperglycemia or hyperglycemic crisis, random plasma glucose results greater than or equal to 200 mg/dL meet the criteria for diagnosis of diabetes. Reference: Standards of Medical Care in Diabetes 2016, [place] [employer]. Diabetes Care. 2016.39(Suppl 1). Performed By: #### 5 8410-2 #### [facility] CLIA [id number] [address] [place] [facility] Potassium [Moles/Vol] 3.4 mmol/L Low 3.7-5.1 [facility] Comment on above: Order Comment: Melia zuluaga Type: BLOOD SPECIMEN Ordering Facility: [facility] Address: [address] [place] [address] Performed By: #### 5 8410-2 #### [facility] CLIA [id number] [address] [place] [facility] Sodium [Moles/Vol] 148 mmol/L High 136-144 [facility] Comment on above: Order Comment: Melia zuluaga Type: BLOOD SPECIMEN Ordering Facility: [facility] Address: [address] [place] [address] Performed By: #### 5 8410-2 #### [facility] CLIA [id number] [address] [place] [facility] Urea nitrogen [Mass/Vol] 22 mg/dL Normal 9-24 [facility] Comment on above: Order Comment: Melia zuluaga Type: BLOOD SPECIMEN Ordering Facility: [facility] Address: [address] [place] [address] Performed By: #### 5 8410-2 #### [facility] CLIA [id number] [address] [place] CBC W Auto Differential pane l (Bld)on 02-26-2025 Basophils (Bld) [#/Vol] 10*3/uL Normal <0.11 [facility] Comment on above: Order Comment: Speci men Type: BLOOD SPECIMEN Ordering Facility: [facility] Address: [address] [place] [address] Performed By: #### 2 777-1, 09523-0, #### [facility] CLIA [id number] 1 [place] [address] [place] Basophils/100 WBC (Bld) 0.3 % Normal [facility] Comment on above: Order Comment: Speci men Type: BLOOD SPECIMEN Ordering Facility: [facility] Address: [address] [place] [address] Performed By: #### 2 777-1, , #### [facility] CLIA [id number] 1 [place] [address] [place] Differential cell count method Nom (Bld) Auto Normal [facility] Comment on above: Order Comment: Speci men Type: BLOOD SPECIMEN Ordering Facility: [facility] Address: [address] [place] [address] Performed By: #### 2 777-1, , #### [facility] CLIA [id number] 1 [place] [address] [place] Eosinophils (Bld) [#/Vol] 10*3/uL Normal <0.46 [facility] Comment on above: Order Comment: Speci men Type: BLOOD SPECIMEN Ordering Facility: [facility] Address: [address] [place] [address] Performed By: #### 2 777-1, 63548-5, #### [facility] CLIA [id number] [address] [place] Eosinophils/100 WBC (Bld) 0.3 % Normal [facility] Comment on above: Order Comment: Speci men Type: BLOOD SPECIMEN Ordering Facility: [facility] Address: [address] [place] [address] Performed By: #### 2 777-1, , #### [facility] CLIA [id number] [address] [place] Erythrocyte distribution width (RBC) [Ratio] 12.5 % Normal 11.5-15.0 [facility] Comment on above: Order Comment: Speci men Type: BLOOD SPECIMEN Ordering Facility: [facility] Address: [address] [place] [address] Performed By: #### 2 777-1, , #### [facility] CLIA [id number] [address] [place] Hematocrit (Bld) [Volume fraction] 36.1 % Low 39.0-51.0 [facility] Comment on above: Order Comment: Speci men Type: BLOOD SPECIMEN Ordering Facility: [facility] Address: [address] [place] [address] Performed By: #### 2 777-1, , #### [facility] CLIA [id number] [address] [place] Hemoglobin (Bld) [Mass/Vol] 12.1 g/dL Low 13.0-17.0 [facility] Comment on above: Order Comment: Speci men Type: BLOOD SPECIMEN Ordering Facility: [facility] Address: [address] [place] [address] Performed By: #### 2 777-1, , #### [facility] CLIA [id number] [address] [place] Immature granulocytes (Bld) [#/Vol] 10*3/uL Normal <0.10 [facility] Comment on above: Order Comment: Speci men Type: BLOOD SPECIMEN Ordering Facility: [facility] Address: [address] [place] [address] Performed By: #### 2 777-1, , #### [facility] CLIA [id number] [address] [place] [address] [place] Immature granulocytes/100 WBC (Bld) 0.3 % Normal [facility] Comment on above: Order Comment: Speci men Type: BLOOD SPECIMEN Ordering Facility: [facility] Address: [address] [place] [address] Performed By: #### 2 777-1, 16699-6, #### [facility] CLIA [id number] [address] [place] Lymphocytes (Bld) [#/Vol] 1.18 10*3/uL Normal 1.00-4.00 [facility] Comment on above: Order Comment: Speci men Type: BLOOD SPECIMEN Ordering Facility: [facility] Address: [address] [place] [address] Performed By: #### 2 777-1, 13954-7, #### [facility] CLIA [id number] [address] Lymphocytes/100 WBC (Bld) 17.4 % Normal [facility] Comment on above: Order Comment: Speci men Type: BLOOD SPECIMEN Ordering Facility: [facility] Address: [address] [place] [address] Performed By: #### 2 777-1, , #### [facility] CLIA [id number] [address] [place] MCH (RBC) [Entitic mass] 31.8 pg Normal 26.0-34.0 [facility] Comment on above: Order Comment: Speci men Type: BLOOD SPECIMEN Ordering Facility: [facility] Address: [address] [place] [address] Performed By: #### 2 777-1, 64237-2, #### [facility] CLIA [id number] [address] [place] OF [facility] MCHC (RBC) [Mass/Vol] 33.5 g/dL Normal 30.5-36.0 [facility] Comment on above: Order Comment: Speci men Type: BLOOD SPECIMEN Ordering Facility: [facility] Address: [address] [place] [address] Performed By: #### 2 777-1, 27298-1, #### [facility] CLIA [id number] [address] MCV (RBC) [Entitic vol] 95.0 fL Normal 80.0-100.0 [facility] Comment on above: Order Comment: Speci men Type: BLOOD SPECIMEN Ordering Facility: [facility] Address: [address] [place] [address] Performed By: #### 2 777-1, , #### [facility] CLIA [id number] [address] [place] Monocytes (Bld) [#/Vol] 1.07 10*3/uL High <0.87 [facility] Comment on above: Order Comment: Speci men Type: BLOOD SPECIMEN Ordering Facility: [facility] Address: [address] [place] [address] Performed By: #### 2 777-1, , #### [facility] CLIA [id number] [address] [place] Monocytes/100 WBC (Bld) 15.8 % Normal [facility] Comment on above: Order Comment: Speci men Type: BLOOD SPECIMEN Ordering Facility: [facility] Address: [address] [place] [address] Performed By: #### 2 777-1, , #### [facility] CLIA [id number] [address] [place] Neutrophils (Bld) [#/Vol] 4.46 10*3/uL Normal 1.45-7.50 [facility] Comment on above: Order Comment: Speci men Type: BLOOD SPECIMEN Ordering Facility: [facility] Address: [address] [place] [address] Performed By: #### 2 777-1, 09687-2, #### [facility] CLIA [id number] [address] [place] Neutrophils/100 WBC (Bld) 65.9 % Normal [facility] Comment on above: Order Comment: Speci men Type: BLOOD SPECIMEN Ordering Facility: [facility] Address: [address] [place] [address] Performed By: #### 2 777-1, 01434-5, #### [facility] CLIA [id number] [address] [place] Nucleated RBC (Bld) [#/Vol] 10*3/uL Normal <0.01 [facility] Comment on above: Order Comment: Speci men Type: BLOOD SPECIMEN Ordering Facility: [facility] Address: [address] [place] [address] Performed By: #### 2 777-1, 82463-6, #### [facility] CLIA [id number] [address] [place] Nucleated RBC/100 WBC (Bld) [Ratio] 0.0 /100 WBC Normal [facility] Comment on above: Order Comment: Speci men Type: BLOOD SPECIMEN Ordering Facility: [facility] Address: [address] [place] [address] Performed By: #### 2 777-1, 70979-1, #### [facility] CLIA [id number] 1 [place] [address] [place] Platelet mean volume (Bld) [Entitic vol] 10.3 fL Normal 9.0-12.7 [facility] Comment on above: Order Comment: Speci men Type: BLOOD SPECIMEN Ordering Facility: [facility] Address: [address] [place] [address] Performed By: #### 2 777-1, 48707-3, #### [facility] CLIA [id number] 1 [place] [address] [place] Platelets (Bld) [#/Vol] 174 10*3/uL Normal 150-400 [facility] Comment on above: Order Comment: Speci men Type: BLOOD SPECIMEN Ordering Facility: [facility] Address: [address] [place] [address] Performed By: #### 2 777-1, 55635-3, #### [facility] CLIA [id number] 1 [place] [address] [place] RBC (Bld) [#/Vol] 3.80 10*6/uL Low 4.20-6.00 [facility] Comment on above: Order Comment: Speci men Type: BLOOD SPECIMEN Ordering Facility: [facility] Address: [address] [place] [address] Performed By: #### 2 777-1, 35117-0, #### [facility] CLIA [id number] 1 [place] [address] [place] WBC (Bld) [#/Vol] 6.77 10*3/uL Normal 3.70-11.00 [facility] Comment on above: Order Comment: Speci men Type: BLOOD SPECIMEN Ordering Facility: [facility] Address: [address] [place] [address] Performed By: #### 2 777-1, 41482-6, #### [facility] CLIA [id number] [address] [place] CONSULTon 02-26-2025 CONSULT HNO ID: [id number] Author: RICK BRITO MD Service: Cardiovascular Medicine Author Type: Physician Type: Consults Filed: 02/26/2025 17:08 Note Text: Initial Cardiology Consult Note Patient Name: Jeanie Rankin Reason For Consult: pre op risk assessment for hernia surgery Date:February 26, 2025 Subjective HPI Mr. Jeanie Rankin is a 84 year old male with PMH: HTN Inclusion body myositis Lymphoma Hiatal hernia Relevant Cardiac Hx: No echocardiogram on file. Stress test ordered on 10/06/2005 but no results documented. Who presented to the [facility] ED on February 24, 2025 with complaints of abdominal pain. Found to have gastric outlet obstruction, so NG tube was placed and he was transferred to [facility] on 02/25. Patient underwent EGD on 02/26 with RSI and ETT placement. Results showed LA Grade C esophagitis with no bleeding, Gastric stenosis with edema and mild erythema, in the gastric antrum, prepylorus and duodenal bulb. Troponin T was 81 then 75. Initial EKG showed sinus bradycardia with 1st degree AV block and RBBB. Repeat EKG also showed sinus bradycardia with 1st degree AV block and RBBB. Cardiology was then consulted for "preop clearance, elevated troponin." On our initial evaluation: BP 174/60 Pulse (!) 59 Temp 36.8 ?C (98.3 ?F) (Temporal) Resp 16 Ht 175.3 cm (5' 9") Wt 64.2 kg (141 lb 8.6 oz) SpO2 94% BMI 20.90 kg/m? Review of Systems Constitutional: Negative for malaise/fatigue. Respiratory: Negative for cough and shortness of breath. Cardiovascular: Negative for chest pain, palpitations and leg swelling. Gastrointestinal: Difficulty swallowing PAST SURGICAL HISTORY Procedure Laterality Date COLONOSCOPY FLX DX W/COLLJ SPEC WHEN PFRMD 06/29/00 Colonoscopy COLONOSCOPY FLX DX W/COLLJ SPEC WHEN PFRMD 10/02/03 Colonoscopy COLONOSCOPY FLX DX W/COLLJ SPEC WHEN PFRMD 09/28/2006 Colonoscopy COLONOSCOPY FLX DX W/COLLJ SPEC WHEN PFRMD 11/21/10 ESOPHAGOGASTRODUODENOSCOPY TRANSORAL DIAGNOSTIC 10/02/03 EGD ESOPHAGOGASTRODUODENOSCOPY TRANSORAL DIAGNOSTIC 09/28/2006 EGD INSJ TUNNELED CTR VAD W/SUBQ PORT AGE 5 YR/> 02/07/08 R IJ POWER PORT PAST SURGICAL HISTORY OF 07/18/02 cyst removed from right chest PAST SURGICAL HISTORY OF 07/19/01 cyst removed from back of right calf TONSILLECTOMY PRIMARY/SECONDARY Tonsillectomy ansd adnoids FAMILY HISTORY Problem Relation Age of Onset Colon Cancer Mother Colon Cancer Father Diabetes Father borderline ,not medicated Cancer Maternal Aunt Cancer Maternal Uncle SOCIAL HISTORY[1] No current facility-administered medications on file prior to encounter. Current Outpatient Medications on File Prior to Encounter Medication Sig testosterone (ANDROGEL) 25 mg/ 2.5g (1%) GlPk Apply 2.5 g to affected area once daily. APPLY TO CLEAN, DRY, INTACT SKIN OF THE SHOULDERS AND UPPER ARMS coenzyme Q10 (CO Q-10) 30 mg capsule Take 1 capsule by mouth once daily. Cholecalciferol, Vitamin D3, 2,000 unit ORAL Tab Take by mouth. Take one(1) tablet daily. lisinopril(PRINIVIL 10 MG TAB) Take one(1) tablet daily. MULTIVITAMIN TAB Take one(1) tablet daily. Objective OBJECTIVE BP 174/60 Pulse (!) 59 Temp 36.8 ?C (98.3 ?F) (Temporal) Resp 16 Ht 175.3 cm (5' 9") Wt 64.2 kg (141 lb 8.6 oz) SpO2 94% BMI 20.90 kg/m? Body mass index is 20.9 kg/m?., Hemoglobin A1C (%) Date Value 11/02/2011 5.5 I/O: Intake/Output Summary (Last 24 hours) at 02/26/2025 1434 Last data filed at 02/26/2025 1031 Gross per 24 hour Intake -- Output 1775 ml Net -1775 ml No results found for: "LVEF" LABORATORY: CBC: Recent Labs 02/26/257 02/25/25 0332 WBC 6.77 8.90 HB 12.1* 13.8 HCT 36.1* 40.1 PLT 174 227 MCV 95.0 92.6 RDWCV 12.5 12.6 NEUTP 65.9 -- ABSNEUT 4.46 -- LYMPHP 17.4 -- MONOP 15.8 -- EODINP 0.3 -- COAG: No results for input(s): "APTT", "INR" in the last 168 hours. CMP: Recent Labs 02/26/25 0437 02/25/25 0332 GLUC 85 137* NA 146* 143 K 2.6* 3.2* CHLOR 99 94* CO2 37* 39* ANION 10 10 BUN 22 20 CREAT 0.40* 0.55* ALB 3.5* -- TBILI 0.6 -- ALKPHOS 51 -- AST 20 -- ALT 11 -- TPROT 6.1* -- URINALYSIS:No results for input(s): "PH", "SPGR", "UGLUC", "UBILI", "UKET", "UHB", "UPROT", "UROBIL", "UWBC", "SSA" in the last 168 hours. Invalid input(s): "NITR" No results found for: "LVEF" Hemoglobin A1C (%) Date Value 11/02/2011 5.5 02/18/1999 5.1 Physical Exam Vitals reviewed. Constitutional: Appearance: He is ill-appearing (chronically ill appearing). HENT: Nose: Comments: NG tube in place Eyes: Extraocular Movements: Extraocular movements intact. Conjunctiva/sclera: Conjunctivae normal. Neck: Vascular: JVD present. Cardiovascular: Rate and Rhythm: Regular rhythm. Heart sounds: No murmur heard. Pulmonary: Effort: No respiratory distress. Breath sounds: No wheezing or rhonchi. Musculoskeletal: Right lower leg: No (more content not included)... Normal [facility] CONSULT PROGon 02-26-2025 CONSULT PROG HNO ID: [id number] Author: ALEJANDRO LAM MD Service: General Surgery Author Type: Resident Type: Consult Progress Note Filed: 02/26/2025 14:56 Note Text: Attestation signed by Alejandro Lam MD at 02/26/2025 2:56 PM I saw and evaluated the patient. Discussed with the resident and agree with resident's findings and plan as documented in the resident's note. Emergency General Surgery Progress Note SERVICE DATE: February 26, 2025 Emergency General Surgery Service Pager: For questions or concerns Mon-Sun 6a-5p please page [phone]. After 5pm and on Weekends and Holidays, please page [phone] if in ICU or [phone] if on RNF. SUBJECTIVE: No acute events overnight. Patient has sinus discomfort from NG tube, but denies abdominal pain. No nausea/vomiting. Tolerating diet DIET NPO OBJECTIVE: Vitals: Temp (24hrs), Av.7 ?C (98 ?F), Min:36.6 ?C (97.8 ?F), Max:36.7 ?C (98.1 ?F) BP 162/51 Pulse (!) 57 Temp 36.6 ?C (97.8 ?F) (Temporal) Resp 16 Ht 175.3 cm (5' 9") Wt 64.2 kg (141 lb 8.6 oz) SpO2 94% BMI 20.90 kg/m? O2 Therapy: Room Air IANDO: Date 02/25/25699 - 02/26/2565802/26/25 07 - 02/27/25 0659 Shift 3226-5972 7754-1166 8013-4544 24 Hour Total 9482-4993 2188-2623 6771-9387 24 Hour Total INTAKE Shift Total OUTPUT Urine 400 275 675 Void (ml) 400 275 675 Urine Not Saved. 1 x 1 x Tubes 250 650 900 Output mL (I/O) (GI/ Feeding 02/24/25 External Facility Left Naris) 250 650 900 Shift Total 057 123 5237 Weight (kg) 64.2 64.2 64.2 64.2 64.2 64.2 64.2 64.2 MEDICATIONS Current Facility-Administered Medications Medication Dose Route Frequency potassium chloride iv piggyback 20 mEq/100 mL 20 mEq INTRAVENOUS q 1 H NaCl 0.9% iv flush bag 20 mL INTRAVENOUS PRN lactated ringers iv infusion 75 mL/hr INTRAVENOUS CONTINUOUS ondansetron (PF) 4 mg injection (ZOFRAN) 4 mg INTRAVENOUS q 6 H PRN morphine 2 mg injection 2 mg INTRAVENOUS q 4 H PRN Labs: Recent Labs 02/26/25 0437 02/25/25 0332 02/25/25 0159 NA 146* 143 -- K 2.6* 3.2* -- CHLOR 99 94* -- CO2 37* 39* -- BUN 22 20 -- CREAT 0.40* 0.55* -- GLUC 85 137* -- ANION 10 10 -- CA 9.3 9.7 -- MG 2.3 -- -- P 2.7 -- -- ALB 3.5* -- -- AST 20 -- -- ALT 11 -- -- ALKPHOS 51 -- -- TBILI 0.6 -- -- WBC 6.77 8.90 -- HB 12.1* 13.8 -- HCT 36.1* 40.1 -- PLT 174 227 -- LACT -- -- 1.2 Physical Exam: GENERAL: No distress, Alert NEURO: AANDOx3, CN II-XII grossly intact HEENT: normocephalic, atraumatic, NG tube in place LUNGS: Unlabored breathing, equal chest rise bilaterally CARDIAC: Regular rate, warm and well perfused distal extremities ABDOMEN: Soft, non-tender, non-distended, no rebound or guarding. EXTREMITIES: VELASCO, No deformities, No edema SKIN: Skin color, texture, turgor normal, No rashes or lesions ASSESSMENT AND PLAN: Assessment Active Hospital Problems Diagnosis Date Noted Gastric outlet obstruction (HCC) 02/25/2025 Assessment: 84 year old male w/PMH of Nodular B cell lymphoma s/p chemo/rad (2007), inclusion body myositis, esophagitis, large hiatal hernia who presents w/GOO 2/2 hiatal hernia Hospital Course/Operations/Procedures : * No surgery found * INPATIENT ATTENDING: * Surgery not found *, Elective High-Risk Geriatric Patient Vulnerabilities: Age > 85 years Plan: GOO due to hiatal hernia - Imaging showing large hiatal hernia containing a large portion of the gastric body and a short segment of the duodenum. Patient has had a known large hiatal hernia that contained most of the stomach going back as far as 2010. Per repeat CT abdomen pelvis, appears to be improvement of gastric distention with NG placement. - Patient not wanting to pursue any surgical intervention at this time. Bariatric Surgery also following, will likely require outpatient follow up for possible surgical intervention pending clinical course and patient's goals - GI consulted, planning for EGD today. Will await results - Maintain NG to LIWS, monitor and document output - Pain and nausea control as needed - Diet: DIET NPO - Remainder of care per primary INPATIENT ATTENDING: * Surgery not found *, Elective High-Risk Geriatric Patient Vulnerabilities: Age >85 Diet: DIET NPO Code Status: DNR-CCA Recommendations: Cognition: No Cognitive Impairment bCAM Score (Calc): Negative Delirium Screen Geriatric Consult (Age over 85 or impaired cognition):Consult to Statistical Programmer Palliative Care/Hospice: Consult not required Rehab/Therapy: PT/OT Recommendations: PT: OT: Swallow: Speech Recommendations: Speech: Speech Diet: Nutrition: Consult not required Nutrition Recommendations: MST: Total MST Score (Calculated): 5 Head Stock Operator: Pharmacy: Consult not needed Social Work: NA Anticipate (more content not included)... Normal [facility] CONSULT PROG HNO ID: [id number] Author: JOSE HAYES MD Service: General Surgery Author Type: Resident Type: Consult Progress Note Filed: 02/26/2025 12:57 Note Text: Attestation signed by Jose Hayes MD at 02/26/2025 12:57 PM Attending Note I evaluated the patient and personally participated in the [place] components. I agree with the resident's findings and plan with the following revisions and/or additions: EGD shows swelling of the pylorus with difficulty insufflating into the duodenum giving narrowing, my concern is he will not be able to tolerate liquids at home and will require readmission I have spoken to his extensively that he requires this hernia repaired or at least a gastropexy so that he will tolerating nutrition. I recommend a full repair as often the gastropexy does not prevent reherniation and volvulus. She will discuss this with the patient and if he agrees we will plan on surgical repair on Sunday. He will need full PT/OT/ ST to compliment his care Needs preoperative risk assessment Signature: Jose Hayes MD Date: 02/26/2025 Time: 12:53 PM Elective General Surgery (Green Surgery) Progress Note SERVICE DATE: February 26, 2025 Elective General Surgery (Green Surgery) Service Pager: For questions or concerns Mon-Fri 6a-5p please page [phone]. After 5pm and on Weekends and Holidays, please page [phone]. SUBJECTIVE: NAEON. Pt continues to have NG in place with moderate output. He is complaining of discomfort related to the tube but denies any abdominal pain or distention. Plan for EGD today with GI. Pt denies any bowel movements or flatus since 4 days ago. Tolerating diet DIET NPO OBJECTIVE: Vitals: Temp (24hrs), Av.7 ?C (98 ?F), Min:36.6 ?C (97.8 ?F), Max:36.7 ?C (98.1 ?F) BP 162/66 Pulse (!) 57 Temp 36.6 ?C (97.8 ?F) (Temporal) Resp 16 Ht 175.3 cm (5' 9") Wt 64.2 kg (141 lb 8.6 oz) SpO2 96% BMI 20.90 kg/m? O2 Therapy: Room Air IANDO: Date 02/25/25699 - 02/26/25 0659 02/26/25 07 - 02/27/25 0659 Shift 3409-1244 6309-6175 4357-0179 24 Hour Total 2792-9636 6985-3243 1216-3617 24 Hour Total INTAKE Shift Total OUTPUT Urine 400 275 675 Void (ml) 400 275 675 Urine Not Saved. 1 x 1 x Tubes 250 650 900 Output mL (I/O) (GI/ Feeding 02/24/25 External Facility Left Naris) 250 650 900 Shift Total 942 364 3008 Weight (kg) 64.2 64.2 64.2 64.2 64.2 64.2 64.2 64.2 MEDICATIONS: Current Facility-Administered Medications Medication Dose Route Frequency potassium chloride iv piggyback 20 mEq/100 mL 20 mEq INTRAVENOUS q 1 H NaCl 0.9% iv flush bag 20 mL INTRAVENOUS PRN lactated ringers iv infusion 75 mL/hr INTRAVENOUS CONTINUOUS ondansetron (PF) 4 mg injection (ZOFRAN) 4 mg INTRAVENOUS q 6 H PRN morphine 2 mg injection 2 mg INTRAVENOUS q 4 H PRN Labs: Recent Labs 02/26/25 0437 02/25/25 0332 02/25/25 0159 NA 146* 143 -- K 2.6* 3.2* -- CHLOR 99 94* -- CO2 37* 39* -- BUN 22 20 -- CREAT 0.40* 0.55* -- GLUC 85 137* -- ANION 10 10 -- CA 9.3 9.7 -- MG 2.3 -- -- P 2.7 -- -- ALB 3.5* -- -- AST 20 -- -- ALT 11 -- -- ALKPHOS 51 -- -- TBILI 0.6 -- -- WBC 6.77 8.90 -- HB 12.1* 13.8 -- HCT 36.1* 40.1 -- PLT 174 227 -- LACT -- -- 1.2 Physical Exam: GENERAL: resting comfortably, in no acute distress HEENT: normocephalic, atraumatic, EOMI NECK: trachea midline, no JVD LUNGS: Unlabored breathing, equal chest rise bilaterally CARDIAC: Regular rate, warm extremities, good perfusion throughout ABDOMEN: Soft, non-tender, non-distended. No rebound or guarding, . EXTREMITIES: VELASCO, No deformities, No edema SKIN: Skin color, texture, turgor normal, No rashes or lesions NEURO: AANDOx3, CN II-XII grossly intact PSYCH: normal mood and affect ASSESSMENT AND PLAN: Assessment Active Hospital Problems Diagnosis Date Noted Gastric outlet obstruction (HCC) 02/25/2025 Assessment: 84 year old male w/ below medical hx admitted today for GOO. Obstructive symptoms started roughly [address] significant for large hiatal hernia w/ stomach and duodenum and mentioned GOO. NG placement and repeat CT w/ satisfactory placement and decompression. Labs have been unremarkable. Hospital Course/Operations/Procedures : * No surgery found * Plan: GOO 2/2 Large Hiatal Hernia - Plan for EGD today with GI - Continue NG tube decompression - Pt will require outpatient follow up for potential surgical intervention pending clinical course Hypokalemia - K 2.8 - Mg normal - replaced Discussed with attending: Dr. Hayes Follow up needs: TBD SIGNATURE: Jose Myers DO PATIENT NAME: Jeanie Rankin DATE: February 26, 2025 TIME: 6:50 AM Pager: see below Elective General Surgery (Green Surgery) Service Pager: For questions (more content not included)... Normal [facility] Comprehensive metabolic 2000 panelon 02-26-2025 Albumin [Mass/Vol] 3.5 g/dL Low 3.9-4.9 [facility] Comment on above: Order Comment: Speci men Type: BLOOD SPECIMEN Ordering Facility: [facility] Address: [address] [place] [address] Performed By: #### 2 777-1, 63408-2, #### [facility] CLIA [id number] [address] OF [facility] ALP [Catalytic activity/Vol] 51 U/L Normal 38-113 [facility] Comment on above: Order Comment: Speci men Type: BLOOD SPECIMEN Ordering Facility: [facility] Address: [address] [place] [address] Performed By: #### 2 777-1, 25090-7, #### [facility] CLIA [id number] [address] STATES OF [facility] ALT With P-5'-P [Catalytic activity/Vol] 11 U/L Normal 10-54 [facility] Comment on above: Order Comment: Speci men Type: BLOOD SPECIMEN Ordering Facility: [facility] Address: [address] [place] [address] Performed By: #### 2 777-1, 59092-3, #### [facility] CLIA [id number] [address] Anion gap [Moles/Vol] 10 mmol/L Normal 8-15 [facility] Comment on above: Order Comment: Speci men Type: BLOOD SPECIMEN Ordering Facility: [facility] Address: [address] [place] [address] Performed By: #### 2 777-1, , #### [facility] CLIA [id number] 1 [place] [address] [place] AST With P-5'-P [Catalytic activity/Vol] 20 U/L Normal 14-40 [facility] Comment on above: Order Comment: Speci men Type: BLOOD SPECIMEN Ordering Facility: [facility] Address: [address] [place] [address] Performed By: #### 2 777-1, , #### [facility] CLIA [id number] 1 [place] [address] [place] Bilirubin [Mass/Vol] 0.6 mg/dL Normal 0.2-1.3 [facility] Comment on above: Order Comment: Speci men Type: BLOOD SPECIMEN Ordering Facility: [facility] Address: [address] [place] [address] Performed By: #### 2 777-1, , #### [facility] CLIA [id number] 1 [place] [address] [place] Calcium [Mass/Vol] 9.3 mg/dL Normal 8.5-10.2 [facility] Comment on above: Order Comment: Speci men Type: BLOOD SPECIMEN Ordering Facility: [facility] Address: [address] [place] [address] Performed By: #### 2 777-1, , #### [facility] CLIA [id number] 1 [place] [address] [place] Chloride [Moles/Vol] 99 mmol/L Normal 98-107 [facility] Comment on above: Order Comment: Speci men Type: BLOOD SPECIMEN Ordering Facility: [facility] Address: [address] [place] [address] Performed By: #### 2 777-1, , #### [facility] CLIA [id number] 1 [place] [address] [place] CO2 [Moles/Vol] 37 mmol/L High 22-30 [facility] Comment on above: Order Comment: Speci men Type: BLOOD SPECIMEN Ordering Facility: [facility] Address: [address] [place] [address] Performed By: #### 2 777-1, 02873-2, #### [facility] CLIA [id number] [address] [place] Creatinine [Mass/Vol] 0.40 mg/dL Low 0.73-1.22 [facility] Comment on above: Order Comment: Speci men Type: BLOOD SPECIMEN Ordering Facility: [facility] Address: [address] [place] [address] Performed By: #### 2 777-1, , #### [facility] CLIA [id number] [address] STATES OF [facility] eGFRcr SerPlBld CKD-EPI 2020 106 mL/min/1.73m??? Normal >=60 [facility] Comment on above: Order Comment: Speci men Type: BLOOD SPECIMEN Ordering Facility: [facility] Address: [address] [place] [address] Result Comment: Genet mated Glomerular Filtration Rate (eGFR) is calculated using the 2020 CKD-EPI creatinine equation. This equation utilizes serum creatinine, sex, and age as parameters. The creatinine assay has traceable calibration to isotope dilution-mass spectrometry. Refer to KDIGO guidelines for clinical interpretation. In patients with unstable renal function, e.g. those with acute kidney injury, the eGFR may not accurately reflect actual GFR. Performed By: #### 2 777-1, 40752-8, #### [facility] CLIA [id number] [address] [place] Glucose [Mass/Vol] 85 mg/dL Normal 74-99 [facility] Comment on above: Order Comment: Speci men Type: BLOOD SPECIMEN Ordering Facility: [facility] Address: [address] [place] [address] Result Comment: The [place] Diabetes [employer] (ADA) provides guidance for cutoff values for fasting glucose and random glucose. The ADA defines fasting as no caloric intake for at least 8 hours. Fasting plasma glucose results between 100 to 125 mg/dL indicate increased risk for diabetes (prediabetes). Fasting plasma glucose results greater than or equal to 126 mg/dL meet the criteria for diagnosis of diabetes. In the absence of unequivocal hyperglycemia, results should be confirmed by repeat testing. In a patient with classic symptoms of hyperglycemia or hyperglycemic crisis, random plasma glucose results greater than or equal to 200 mg/dL meet the criteria for diagnosis of diabetes. Reference: Standards of Medical Care in Diabetes 2016, [place] [employer]. Diabetes Care. 2016.39(Suppl 1). Performed By: #### 2 777-1, 49948-8, #### [facility] CLIA [id number] 1 [place] [address] [place] Potassium [Moles/Vol] 2.6 mmol/L Low 3.7-5.1 [facility] Comment on above: Order Comment: Melia zuluaga Type: BLOOD SPECIMEN Ordering Facility: [facility] Address: [address] [place] [address] Performed By: #### 2 777-1, , #### [facility] CLIA [id number] 1 [place] [address] [place] Protein [Mass/Vol] 6.1 g/dL Low 6.3-8.0 [facility] Comment on above: Order Comment: Melia zuluaga Type: BLOOD SPECIMEN Ordering Facility: [facility] Address: [address] [place] [address] Performed By: #### 2 777-1, , #### [facility] CLIA [id number] 1 [place] [address] [place] Sodium [Moles/Vol] 146 mmol/L High 136-144 [facility] Comment on above: Order Comment: Melia zuluaga Type: BLOOD SPECIMEN Ordering Facility: [facility] Address: [address] [place] [address] Performed By: #### 2 777-1, , #### [facility] CLIA [id number] 1 [place] [address] [place] Urea nitrogen [Mass/Vol] 22 mg/dL Normal 9-24 [facility] Comment on above: Order Comment: Speci men Type: BLOOD SPECIMEN Ordering Facility: [facility] Address: [facility] [place] [address] Performed By: #### 2 777-1, 77767-8, 25082-5 #### [facility] CLIA [id number] 1 [place] [id number] [place] ECHOon 02-26-2025 Echocardiography Echocardiography Rep ort: Transthoracic Echo [facility] Date of service: 02/26/2025 1:57:46 PM [facility] Ordering physician: KAREEM PEREZ Exam indication: Abnormal ECG Technologist: Summer Calderon [facility] Interpreting physician: Dedra Pruitt MD PATIENT: Name: JEANIE RANKIN : 1940 Age: 84 years Gender: M Primary rhythm: sinus. Secondary rhythm: RBBB. Height: 175.30 cm BSA: 1.77 m Weight: 64.20 kg BMI: 20.9 kg/m Heart rate 59 bpm Blood pressure 170/50 mmHg Technically difficult exam due to suboptimal positioning. Color Doppler was utilized to interrogate the cardiac valves assessed and spectral Doppler was utilized to determine the flow velocities and pressure gradients reported in this exam. MEASUREMENTS: Value Indexed Normal Max aortic dimension 3.9 cm Ao < 3.8 Left atrial volume 74 ml (4ch A-L) 42 ml/m [place] <= 34 LV ID (diastole) 4.0 cm (2D) 2.24 cm/m LV ID (systole) 2.5 cm (2D) 1.42 cm/m IVS, leaflet tips 1.0 cm (2D) Posterior wall thickness 1.2 cm (2D) Left ventricular mass 142 g (2D) 80 g/m LV stroke volume 93 ml (2D biplane) LV end diastolic volume 125 ml (2D biplane) 70.9 ml/m 34<=EDVi<75 LV end systolic volume 32 ml (2D biplane) 18.2 ml/m Ejection Fraction 74 % (2D biplane) EF > 52 FINDINGS: LEFT VENTRICLE The left ventricle is normal in size. Left ventricular systolic function is hyperdynamic globally. Normal left ventricular diastolic function. Mitral annular lateral E/e': 10.8. Mitral annular septal E/e': 10.8. Definity contrast used for endocardial border detection. Wall Motion: All scored segments are normal. RIGHT VENTRICLE The right ventricle is normal in size. Right ventricular systolic function is normal. RV systolic tissue Doppler velocity is 12.0 cm/s. Tricuspid annular displacement is 2.2 cm. Estimated right ventricular systolic pressure is likely underestimated due to a weak or incomplete tricuspid regurgitation signal and is, at least, 29 mmHg plus right atrial pressure. Estimated right atrial pressure is not included as the IVC was not seen. LEFT ATRIUM The left atrial cavity is mildly dilated. Pulmonary Veins: The pulmonary venous pattern showed normal systolic flow. RIGHT ATRIUM The right atrial cavity is normal in size. MITRAL VALVE The mitral valve leaflets are structurally normal. There is trace mitral valve regurgitation. The pressure half time is 77 msec. The peak mitral E/A ratio is 0.88. The average mitral E/e' ratio is 10.8. The mitral flow deceleration time is 266 msec. TRICUSPID VALVE The tricuspid valve leaflets are structurally normal. There is trace tricuspid valve regurgitation. AORTIC VALVE There is no aortic valve regurgitation. Tricuspid aortic valve. There is mild thickening. PULMONIC VALVE There is trace pulmonic valve regurgitation. There is no thickening. AORTA The visualized aorta is borderline dilated. Measurements - Aortic valve annulus 2.5 cm. Sinus: 3.2 cm. Mid ascending aorta 3.9 cm. PULMONARY ARTERIES The pulmonary arteries are unseen or not interrogated. INTERATRIAL SEPTUM The interatrial septum is mobile. There is no evidence of intracardiac shunting as detected by Doppler. PERICARDIUM There is no pericardial effusion. CONCLUSIONS: - Technically difficult exam due to suboptimal positioning. - Exam indication: Abnormal ECG - The left ventricle is normal in size. Left ventricular systolic function is hyperdynamic. EF = 74 5% (2D biplane) Definity contrast used for endocardial border detection. Normal left ventricular diastolic function. - The right ventricle is normal in size. Right ventricular systolic function is normal. - The left atrial cavity is mildly dilated. - The visualized aorta is borderline dilated with a maximal dimension of 3.9 cm. - The patient has not had a prior CC echocardiographic exam for comparison. * * * Final * * * CC [email or web address] : [id number] [email or web address] Normal [facility] Magnesium SerPl-mCncon 02-26 Magnesium [Mass/Vol] 2.3 mg/dL Normal 1.7-2.3 [facility] Comment on above: Order Comment: Speci men Type: BLOOD SPECIMEN Ordering Facility: [facility] Address: [address] [place] [address] Performed By: #### 2 777-1, 88608-2, 06626-1 #### [facility] CLIA [id number] [address] NUTRITIONon 02-26-2025 NUTRITION HNO ID: [id number] Author: GERRY MILLAN RD Service: Nutrition Therapy Author Type: Registered Dietitian Type: Nutrition Filed: 02/26/2025 12:28 Note Text: NUTRITION THERAPY INITIAL ASSESSMENT SERVICE DATE: 02/26/2025 SERVICE TIME: Nutrition Assessment: Recommended Malnutrition Diagnosis: Unable to Identify Malnutrition at this time Nutrition Diagnosis: Problem: Altered GI function Related to: Change in GI tract motility As evidenced by: Medical condition, Imaging studies Care Plan: Follow for diet advancement to goal Monitor and Evaluation: Meet greater than 75% of estimated needs, Monitor bowel function, Monitor fluid/electrolyte balance, Monitor labs, I/Os, vital signs, weight HPI: 84 y/o male here for Gastric outlet obstruction (HCC) [K31.1] Consult AND MST 02/25, pt. N/A W/ PAST MEDICAL HISTORY Diagnosis Date Anemia, unspecified Benign neoplasm of colon Diverticulosis of colon (without mention of hemorrhage) Esophagitis Family history of malignant neoplasm of gastrointestinal tract Family history of malignant neoplasm of gastrointestinal tract Gout, unspecified right toe Internal hemorrhoids without mention of complication Myalgia and myositis, unspecified inclusion of body Nodular lymphoma B CELL Other abnormal clinical finding low testosterone Other specified gastritis Personal history of colonic polyps Unspecified essential hypertension Intake History: N/V resolved per GI note now , present 72hrs BIT TAPPER NG w/ mod output + CT imaging for large obstructing Hiatal Hernia Nutrition Intake Prior to Admission: Unable to determine Current Nutrition Intake: NPO Dosing Weight: 64.2 kg (141 lb 8.6 oz) Estimated kilocalorie needs: 7413-2346 Calorie Calculation Method: 30-35 kcals/kg Estimated protein needs (grams): 77-97 Grams protein determined by: 1.2 - 1.5 g/kg Weight Weight 02/25/2025 141 lb 8.6 oz 07/19/2012 212 lb 6.4 oz 03/26/2012 215 lb 11/01/2011 215 lb 10/07/2010 204 lb 03/18/2009 205 lb 01/03/2008 215 lb 12/23/2007 208 lb 12/10/2007 216 lb 1.9 oz 10/11/2007 216 lb Diet Orders (From admission, onward) Start Ordered 02/25/25 0615 DIET NPO START NOW Question: NPO Restrictions Answer: EXCEPT MEDS 02/25/25 0607 Anthropometrics: Height: 175.3 cm (5' 9") Weight: 64.2 kg (141 lb 8.6 oz) Body mass index is 20.9 kg/m?. Weight Change: Unable to determine (last wt 96.3kg 2012) Physical Exam: Reason NFPE not performed: Unable to participate Potential micronutrient deficiency: Skin (BLE cellulitis , Coccysx PI) Functional Status: Unable to assess Potential Signs of Inflammation: Imaging studies, Chronic condition, Hypoalbuminemia lymphoma Lines, Drains, and Airways Drain Duration GI/ Feeding 02/26/25 1143 [facility] Gastric Left Naris <1 day MNT Billing: $ Routine Care : 1 unit (3 attempts, @ EGD) SIGNATURE: Gerry Millan RD PATIENT NAME: Jeanie Rankin DATE: February 26, 2025 TIME: 7:23 AM Normal [facility] Pathology biopsy report Bret (Tiss)on 02-26-2025 AP DISCLAIMER Normal [facility] Comment on above: Order Comment: Speci men Type: TISSUE SPECIMENOrdering Facility: [facility] Address: [address] [place] [address] Result Comment: Eliseo garcia Developed Test (LDT) Disclaimer: Performance characteristics of immunohistochemical, immunofluorescent, and chromogenic in-situ hybridization tests have been determined by the performing laboratory within the [facility] Department of Pathology and Laboratory Medicine ([facility], [facility], [facility], [facility], [facility], [facility], or [facility]) in a manner consistent with CLIA requirements. One or more of these tests may not have been cleared or approved by the FDA. The [facility] Department of Pathology and Laboratory Medicine is regulated under CLIA as qualified to perform high-complexity testing. These tests are used for clinical purposes. These should not be regarded as investigational or for research. Positive and negative controls stain appropriately. Performed By: #### 6 6121-5 ####[facility] [id number] [address] CASE REPORT Normal [facility] Comment on above: Order Comment: Melia zuluaga Type: TISSUE SPECIMENOrdering Facility: [facility] Address: [address] [place] [address] Result Comment: [facility] Pathology Report Case: [id number] Authorizing Provider: Nadiya Camilo, Collected: 02/26/2025 11:36 AM Ordering Location: [facility] Received: 02/26/2025 03:29 PM Pathologist: Pilo Lambert MD Specimen: Stomach, Antrum, Biopsy, r/o dysplasia and malignancy Performed By: #### 6 6121-5 ####[facility] [id number] [address] STATES OF [facility] CLINICAL HISTORY Normal [facility] Comment on above: Order Comment: Melia zuluaga Type: TISSUE SPECIMENOrdering Facility: [facility] Address: [address] [place] [address] Result Comment: Asso ciated Diagnoses: K31.1 - Gastric outlet obstruction (HCC) R11.2 - Nausea and vomiting, unspecified vomiting type Z46.59 - Encounter for nasogastric (NG) tube placement Performed By: #### 6 6121-5 ####[facility]ORY[facility] [id number] [address] DIAGNOSIS COMMENT The case was reviewe d by Dr. Tricia Worrell who agrees with the interpretation. Normal [facility] Comment on above: Order Comment: Speci men Type: TISSUE SPECIMENOrdering Facility: [facility] Address: [address] [place] [address] Performed By: #### 6 6121-5 ####[facility]ORYCLIA [id number] [address] FINAL DIAGNOSIS Normal [facility] Comment on above: Order Comment: Speci men Type: TISSUE SPECIMENOrdering Facility: [facility] Address: [address] [place] [address] Result Comment: Nette patel Antrum, Biopsy: - Gastric mucosa with intestinal metaplasia (see comment). - Negative for dysplasia and malignancy. at 1228 EDT Performed By: #### 6 6121-5 ####[facility]ATORYCLIA [id number] [address] FINAL PERFORMING LAB Normal [facility] Comment on above: Order Comment: Speci men Type: TISSUE SPECIMENOrdering Facility: [facility] Address: [address] [place] [address] Result Comment: Diag nostic interpretation performed at: [facility], [address] [place] [address] CLIA# [id number] Tar Leveler: Chip Dennis MD Performed By: #### 6 6121-5 ####[facility]ATORYCLIA [id number] [address] GROSS DESCRIPTION [facility] Comment on above: Order Comment: Speci men Type: TISSUE SPECIMENOrdering Facility: [facility] Address: [address] [place] [address] Result Comment: Larry. Anai patel, Antrum, Biopsy Received in formalin and designated "stomach antrum biopsy" are fragments of pantoja tissue with an aggregate measurement of 0.8 x 0.3 x 0.1 cm. The specimen is entirely submitted in cassette A1. KM February 26, 2025 3:32 PM Gross examination performed at [facility], [address] [place] [address] Performed By: #### 6 6121-5 ####[facility]ORATORYCLIA [id number] [address] OF [place] Phosphate SerPl-mCncon 02-26 Phosphate [Mass/Vol] 2.7 mg/dL Normal 2.7-4.8 [facility] Comment on above: Order Comment: Speci men Type: BLOOD SPECIMEN [facility] Address: [address] [place] [address] [place] [address] Performed By: #### 2 777-1, 30267-4, 78251-2 #### [facility] CLIA [id number] [address] [place] [address] OF [place] THERAPY NTon 02-26-2025 THERAPY NT HNO ID: [id number] Author: ELIDIA MENJIVAR PT Service: Physical Therapy Author Type: Physical Therapist Type: Therapy (PT/OT/Speech/Resp) Filed: 02/26/2025 10:43 Note Text: PHYSICAL THERAPY MISSED VISIT SERVICE DATE: 02/26/2025 SERVICE TIME: 1042 ROOM: [place] [address]) Patient not seen due to Test / Procedure. Off the floor at [facility]. SIGNATURE: Elidia Menjivar PT PATIENT NAME: Jeanie Oliverc DATE: February 26, 2025 TIME: 10:43 AM Normal [facility] THERAPY NT HNO ID: [id number] Author: MIRTA LEON CCC-EDUARDO Service: Speech/Swallow Author Type: Speech Language Pathologist Type: Therapy (PT/OT/Speech/Resp) Filed: 02/26/2025 09:28 Note Text: SPEECH THERAPY MISSED VISIT SERVICE DATE: 02/26/2025 SERVICE TIME: 926 ROOM: [id number] Patient not seen due to Test / Procedure. NPO for EGD. SIGNATURE: MAGGIE ParksFILER AND SANDER PATIENT NAME: Jeanie Oliverc DATE: February 26, 2025 TIME: 9:28 AM Normal [facility] Upper GI endoscopyon 025 Upper GI endoscopy [facility] Gastrointestinal Endoscopy Patient Name: Jeanie Rankin Procedure Date: 02/26/2025 10:56 AM Date of : 1940 Admit Type: Inpatient Room: [place] [address] Gender: Male Note Status: Finalized Attending MD: Nadiya Camilo MD, [id number] Procedure: Upper GI endoscopy Indications: Suspected gastric outlet obstruction Providers: Nadiya Camilo MD Patient Profile: Refer to note in patient chart for documentation of history and physical. Medicines: General Anesthesia Complications: No immediate complications. Requesting Provider: Jose Hayes MD Procedure: Pre-Anesthesia Assessment: - Prior to the procedure, a History and Physical was performed, and patient medications and allergies were reviewed. The patient is competent. The risks and benefits of the procedure and the sedation options and risks were discussed with the patient. All questions were answered and informed consent was obtained. Patient identification and proposed procedure were verified by the physician, the nurse and the anesthesiologist in the pre-procedure area in the procedure room. Mental Status Examination: alert and oriented. Airway Examination: normal oropharyngeal airway and neck mobility. Respiratory Examination: clear to auscultation. CV Examination: normal. Prophylactic Antibiotics: The patient does not require prophylactic antibiotics. Prior Anticoagulants: The patient has taken no anticoagulant or antiplatelet agents. ASA Grade Assessment: III - A patient with severe systemic disease. After reviewing the risks and benefits, the patient was deemed in satisfactory condition to undergo the procedure. The anesthesia plan was to use general anesthesia. Immediately prior to administration of medications, the patient was re-assessed for adequacy to receive sedatives. The heart rate, respiratory rate, oxygen saturations, blood pressure, adequacy of pulmonary ventilation, and response to care were monitored throughout the procedure. The physical status of the patient was re-assessed after the procedure. After obtaining informed consent, the endoscope was passed under direct vision. Throughout the procedure, the patient's blood pressure, pulse, and oxygen saturations were monitored continuously. The was introduced through the mouth, and advanced to the antrum of the stomach. I was present and participated during the entire procedure, including non-lancaster portions, and during the administration and monitoring of Moderate Sedation. The Colonoscope was introduced through the mouth, and advanced to the second part of duodenum. I was present and participated during the entire procedure, including non-lancaster portions, and during the administration and monitoring of Moderate Sedation. The upper GI endoscopy was accomplished without difficulty. The patient tolerated the procedure well. Moderate Sedation: An independent trained observer was present and continuously monitored the patient. Exam was performed under general anesthesia (GA) Findings: LA Grade C (one or more mucosal breaks continuous between tops of 2 or more mucosal folds, less than 75% circumference) esophagitis with no bleeding was found. A moderate stenosis stenosis with edema and mild erythema was found in the gastric antrum, prepylorus and duodenal bulb. Biopsies were taken with a cold forceps for histology. The duodenal bulb, first portion of the duodenum and second portion of the duodenum were normal. Estimated Blood Loss: Estimated blood loss was minimal. Impression: - LA Grade C esophagitis with no bleeding. - Gastric stenosis with edema and mild erythema was found in the gastric antrum, prepylorus and duodenal bulb. The prepyloric region was biopsied. - Normal duodenal bulb, first portion of the duodenum and second portion of the duodenum. Recommendation: - Return patient to hospital diallo for ongoing care. - Await pathology results - Patient and family were updated about the finding - The patient is not currently taking anticoagulant or antiplatelet agents. Procedure Code(s): --- Professional --- 33025, Esophagogastroduodenoscopy, flexible, transoral; with biopsy, single or multiple --- Technical --- 61498, Esophagogastroduodenoscopy, flexible, transoral; with biopsy, single or multiple Diagnosis Code(s): --- Professional --- K20.90, Esophagitis, unspecified without bleeding K31.89, Other diseases of stomach and duodenum --- Technical --- K20.90, Esophagitis, unspecified without bleeding K31.89, Other diseases of stomach and duodenum CPT copyright 202 [employer]. All rights reserved. The codes documented in this report are preliminary and upon machine tracer review may be revised to meet current compliance requirements. Attending Participation: I personally performed the entire procedu (more content not included)... Normal [facility] Basic metabolic 2000 panelon 02-25-2025 Anion gap [Moles/Vol] 10 mmol/L Normal 8-15 [facility] Comment on above: Order Comment: Speci men Type: BLOOD SPECIMEN [facility] Address: [address] [place], [place] [address] Performed By: #### 2 4321-2 #### [facility] CLIA [id number] [address] STATES [place] Calcium [Mass/Vol] 9.7 mg/dL Normal 8.5-10.2 [facility] Comment on above: Order Comment: Speci men Type: BLOOD SPECIMEN [facility] Address: [address] [place] [address] Performed By: #### 2 4321-2 #### [facility] CLIA [id number] 1 [place] [address] [place] Chloride [Moles/Vol] 94 mmol/L Low 98-107 [facility] Comment on above: Order Comment: Speci men Type: BLOOD SPECIMEN [facility] Address: [address] [place] [address] Performed By: #### 2 4321-2 #### [facility] CLIA [id number] [address] [place] CO2 [Moles/Vol] 39 mmol/L High 22-30 [facility] Comment on above: Order Comment: Speci men Type: BLOOD SPECIMEN [facility] Address: [address] [place] [address] Performed By: #### 2 4321-2 #### [facility] CLIA [id number] [address] [place] Creatinine [Mass/Vol] 0.55 mg/dL Low 0.73-1.22 [facility] Comment on above: Order Comment: Speci men Type: BLOOD SPECIMEN [facility] Address: [address] [place] [address] Performed By: #### 2 4321-2 #### [facility] CLIA [id number] [address] [place] eGFRcr SerPlBld CKD-EPI 2020 97 mL/min/1.73m??? Normal >=60 [facility] Comment on above: Order Comment: Speci men Type: BLOOD SPECIMEN [facility] Address: [address] [place] [address] Result Comment: Genet mated Glomerular Filtration Rate (eGFR) is calculated using the 2020 CKD-EPI creatinine equation. This equation utilizes serum creatinine, sex, and age as parameters. The creatinine assay has traceable calibration to isotope dilution-mass spectrometry. Refer to KDIGO guidelines for clinical interpretation. In patients with unstable renal function, e.g. those with acute kidney injury, the eGFR may not accurately reflect actual GFR. Performed By: #### 2 4321-2 #### [facility] CLIA [id number] 1 [place] [address] [place] Glucose [Mass/Vol] 137 mg/dL High 74-99 [facility] Comment on above: Order Comment: Melia zuluaga Type: BLOOD SPECIMEN [facility] Address: [address] [place] [address] Result Comment: The [place] [employer] (ADA) provides guidance for cutoff values for fasting glucose and random glucose. The ADA defines fasting as no caloric intake for at least 8 hours. Fasting plasma glucose results between 100 to 125 mg/dL indicate increased risk for diabetes (prediabetes). Fasting plasma glucose results greater than or equal to 126 mg/dL meet the criteria for diagnosis of diabetes. In the absence of unequivocal hyperglycemia, results should be confirmed by repeat testing. In a patient with classic symptoms of hyperglycemia or hyperglycemic crisis, random plasma glucose results greater than or equal to 200 mg/dL meet the criteria for diagnosis of diabetes. Reference: Standards of Medical Care in Diabetes 2016, [place] [employer]. Diabetes Care. 2016.39(Suppl 1). Performed By: #### 2 4321-2 #### [facility] CLIA [id number] 1 [place] [address] [place] Potassium [Moles/Vol] 3.2 mmol/L Low 3.7-5.1 [facility] Comment on above: Order Comment: Melia zuluaga Type: BLOOD SPECIMEN [facility] Address: [address] [place] [address] Performed By: #### 2 4321-2 #### [facility] CLIA [id number] [address] Sodium [Moles/Vol] 143 mmol/L Normal 136-144 [facility] Comment on above: Order Comment: Speci men Type: BLOOD SPECIMEN [facility] Address: [address] [place] [address] Performed By: #### 2 4321-2 #### [facility] CLIA [id number] [address] STATES [place] Urea nitrogen [Mass/Vol] 20 mg/dL Normal 9-24 [facility] Comment on above: Order Comment: Speci men Type: BLOOD SPECIMEN [facility] Address: [address] [place] [address] Performed By: #### 2 4321-2 #### [facility] CLIA [id number] [address] OF [facility] CBC panel Auto (Bld)on 02-25 Erythrocyte distribution width (RBC) [Ratio] 12.6 % Normal 11.5-15.0 [facility] Comment on above: Order Comment: Speci men Type: BLOOD SPECIMEN [facility] Address: [address] [place] [address] Performed By: #### 5 8410-2 #### [facility] CLIA [id number] [address] Hematocrit (Bld) [Volume fraction] 40.1 % Normal 39.0-51.0 [facility] Comment on above: Order Comment: Speci men Type: BLOOD SPECIMEN [facility] Address: [address] [place] [address] Performed By: #### 5 8410-2 #### [facility] CLIA [id number] [address] [place] Hemoglobin (Bld) [Mass/Vol] 13.8 g/dL Normal 13.0-17.0 [facility] Comment on above: Order Comment: Speci men Type: BLOOD SPECIMEN [facility] Address: [address] [place] [address] Performed By: #### 5 8410-2 #### [facility] CLIA [id number] [address] MCH (RBC) [Entitic mass] 31.9 pg Normal 26.0-34.0 [facility] Comment on above: Order Comment: Speci men Type: BLOOD SPECIMEN [facility] Address: [address] [place] [address] Performed By: #### 5 8410-2 #### [facility] CLIA [id number] [address] MCHC (RBC) [Mass/Vol] 34.4 g/dL Normal 30.5-36.0 [facility] Comment on above: Order Comment: Speci men Type: BLOOD SPECIMEN [facility] Address: [address] [place] [address] Performed By: #### 5 8410-2 #### [facility] CLIA [id number] [address] MCV (RBC) [Entitic vol] 92.6 fL Normal 80.0-100.0 [facility] Comment on above: Order Comment: Speci men Type: BLOOD SPECIMEN [facility] Address: [address] [place] [address] Performed By: #### 5 8410-2 #### [facility] CLIA [id number] [address] Nucleated RBC (Bld) [#/Vol] 10*3/uL Normal <0.01 [facility] Comment on above: Order Comment: Speci men Type: BLOOD SPECIMEN [facility] Address: [address] [place] [address] Performed By: #### 5 8410-2 #### [facility] CLIA [id number] [address] Platelet mean volume (Bld) [Entitic vol] 10.3 fL Normal 9.0-12.7 [facility] Comment on above: Order Comment: Speci men Type: BLOOD SPECIMEN [facility] Address: [address] [place] [address] Performed By: #### 5 8410-2 #### [facility] CLIA [id number] [address] Platelets (Bld) [#/Vol] 227 10*3/uL Normal 150-400 [facility] Comment on above: Order Comment: Speci men Type: BLOOD SPECIMEN [facility] Address: [address] [place] [address] Performed By: #### 5 8410-2 #### [facility] CLIA [id number] [address] RBC (Bld) [#/Vol] 4.33 10*6/uL Normal 4.20-6.00 [facility] Comment on above: Order Comment: Speci men Type: BLOOD SPECIMEN [facility] Address: [address] [place] [address] Performed By: #### 5 8410-2 #### [facility] CLIA [id number] [address] WBC (Bld) [#/Vol] 8.90 10*3/uL Normal 3.70-11.00 [facility] Comment on above: Order Comment: Speci men Type: BLOOD SPECIMEN [facility] Address: [address] [place] [address] Performed By: #### 5 8410-2 #### [facility] CLIA [id number] [address] CONSULTon 02-25-2025 CONSULT HNO ID: [id number] Author: RUSSELL LOPEZ MD Service: General Surgery Author Type: Resident Type: Consults Filed: 02/25/2025 15:46 Note Text: Attestation signed by Jose Hayes MD at 02/26/2025 12:53 PM Attending Note I evaluated the patient and personally participated in the lancaster components. I agree with the resident's findings and plan with the following revisions and/or additions: Large Hiatal hernia with herniated pylorus likely causing partial obstruction EGD to evaluate Signature: Jose Hayes MD Date: 02/26/2025 Time: 12:52 PM CONSULT: [facility] SERVICE DATE: 02/25/2025 SERVICE TIME: 3:03 PM REASON FOR CONSULT: GOO REQUESTING PHYSICIAN: Dr. Foster Subjective 84 year old male w/ below medical hx admitted today for GOO. Obstructive symptoms started roughly [address] significant for large hiatal hernia w/ stomach and duodenum and mentioned GOO. NG placement and repeat CT w/ satisfactory placement and decompression. Labs have been unremarkable. Currently on EGS service. GI consulted for EGD to ensure viability and detorse, which will be performed tomorrow. FUNCTIONAL STATUS: Independent PAST MEDICAL HISTORY Diagnosis Date Anemia, unspecified Benign neoplasm of colon Diverticulosis of colon (without mention of hemorrhage) Esophagitis Family history of malignant neoplasm of gastrointestinal tract Family history of malignant neoplasm of gastrointestinal tract Gout, unspecified right toe Internal hemorrhoids without mention of complication Myalgia and myositis, unspecified inclusion of body Nodular lymphoma B CELL Other abnormal clinical finding low testosterone Other specified gastritis Personal history of colonic polyps Unspecified essential hypertension PAST SURGICAL HISTORY Procedure Laterality Date COLONOSCOPY FLX DX W/COLLJ SPEC WHEN PFRMD 06/29/00 Colonoscopy COLONOSCOPY FLX DX W/COLLJ SPEC WHEN PFRMD 10/02/03 Colonoscopy COLONOSCOPY FLX DX W/COLLJ SPEC WHEN PFRMD 09/28/2006 Colonoscopy COLONOSCOPY FLX DX W/COLLJ SPEC WHEN PFRMD 11/21/10 ESOPHAGOGASTRODUODENOSCOPY TRANSORAL DIAGNOSTIC 10/02/03 EGD ESOPHAGOGASTRODUODENOSCOPY TRANSORAL DIAGNOSTIC 09/28/2006 EGD INSJ TUNNELED CTR VAD W/SUBQ PORT AGE 5 YR/> 02/07/08 R IJ POWER PORT PAST SURGICAL HISTORY OF 07/18/02 cyst removed from right chest PAST SURGICAL HISTORY OF 07/19/01 cyst removed from back of right calf TONSILLECTOMY PRIMARY/SECONDARY Tonsillectomy ansd adnoids FAMILY HISTORY Problem Relation Age of Onset Colon Cancer Mother Colon Cancer Father Diabetes Father borderline ,not medicated Cancer Maternal Aunt Cancer Maternal Uncle SOCIAL HISTORY[1] Prescriptions Prior to Admission[2] Current Facility-Administered Medications Medication Dose Route Frequency NaCl 0.9% iv flush bag 20 mL INTRAVENOUS PRN lactated ringers iv infusion 75 mL/hr INTRAVENOUS CONTINUOUS ondansetron (PF) 4 mg injection (ZOFRAN) 4 mg INTRAVENOUS q 6 H PRN morphine 2 mg injection 2 mg INTRAVENOUS q 4 H PRN Allergies As of Date: 02/24/2025 Allergen Noted Reaction ADHESIVE 03/18/2009 NEOSPORIN [VGUBEUFR-FUGOQUIDNS-QD*08/0 07/2005 Rash and Itching Fully Assessed 02/24/2025 COMPLETE REVIEW OF SYSTEMS: PAIN ASSESSMENT: CURRENTLY HAVING PAIN; see HPI GENERAL: No weight loss, malaise or fevers HEENT: Negative for frequent or significant headaches, No changes in hearing or vision, no nose bleeds or other nasal problems RESPIRATORY: Negative for cough, hemoptysis, wheezing, COPD, dyspnea or shortness of breath CARDIOVASCULAR: Negative for chest pain, leg swelling, hypertension, CHF or palpitations GI: See HPI MUSCULOSKELETAL: Negative for joint pain or swelling, back pain or muscle pain SKIN: Negative for lesions, rash, and itching PSYCH: Negative for sleep disturbance, mood disorder and recent psychosocial stressors HEMATOLOGY/LYMPHOLOGY: Negative for prolonged bleeding, bruising easily or swollen nodes ENDOCRINE: Negative for cold or heat intolerance, polyuria, polydipsia and goiter NEURO: No history of headaches, syncope, paralysis, seizures or tremors Objective PHYSICAL EXAM: Physical Exam Performed: GENERAL: Alert, no distress, cooperative SKIN: Negative HEAD/SINUSES: No significant findings BACK: Negative LUNGS: Negative BREASTS: Exam deferred ABDOMEN: Normal abdominal exam EXTREMITIES: Normal exam of the extremities NEURO: Grossly normal cognition, motor function, and cranial nerves III-XII BP 174/60 Pulse 68 Temp (Src) 98.1 (Oral) Resp 16 Ht 5' 9" (1.75m) Wt 141 lb 8.6 oz (64.2kg) SpO2 99% BMI 20.89 kg/(m2). O2 Therapy: Room Air DATA: Labs: Recent Labs 02/25/25 0332 02/25/25 0159 NA 143 -- K 3.2* -- CHLOR 94* -- CO2 (more content not included)... Normal [facility] CONSULT HNO ID: [id number] Author: JULY KENT APRN.QUALITY CONTROL MICROBIOLOGY SUPERVISOR Service: Gastroenterology Author Type: Nurse Practitioner Type: Consults Filed: 02/25/2025 11:52 Note Text: INITIAL CONSULT GASTROENTEROLOGY SERVICE DATE: 02/25/2025 SERVICE TIME: 8:45 AM Consulting Service: Gastroenterology Chief Complaint: Nausea, vomiting, abdominal pain Opinion/advice regarding: Gastric outlet obstruction Subjective HPI: This is a 84 year old male with a past medical history of Nodular B cell lymphoma s/p chemo/rad (2007), inclusion body myositis, esophagitis, large hiatal hernia who presents w/GOO 2/2 hiatal hernia who presents with nausea and vomiting. Presented to [facility] on 02/24/2025. On , labs as follows: Na 143, Creatinine 0.55, WBC 8.90, Hgb 13.8, Plt 227. CT A/P on 02/24 showed re demonstrated moderate-large hiatal hernia which contains a herniated short segment of the proximal duodenum which is at risk for obstruction, decreased distension of the stomach and herniated duodenal segment post tube placement. GI consulted due to concerns of gastric outlet obstruction. Upon assessment, patient resting in bed. Patient reports endorsing nausea and vomiting, along with epigastric pain. S/p NG tube placement. Denies nausea, vomiting, or epigastric pain. Denies taking anticoagulation therapy at home. PAST MEDICAL HISTORY Diagnosis Date Anemia, unspecified Benign neoplasm of colon Diverticulosis of colon (without mention of hemorrhage) Esophagitis Family history of malignant neoplasm of gastrointestinal tract Family history of malignant neoplasm of gastrointestinal tract Gout, unspecified right toe Internal hemorrhoids without mention of complication Myalgia and myositis, unspecified inclusion of body Nodular lymphoma B CELL Other abnormal clinical finding low testosterone Other specified gastritis Personal history of colonic polyps Unspecified essential hypertension PAST SURGICAL HISTORY Procedure Laterality Date COLONOSCOPY FLX DX W/COLLJ SPEC WHEN PFRMD 06/29/00 Colonoscopy COLONOSCOPY FLX DX W/COLLJ SPEC WHEN PFRMD 10/02/03 Colonoscopy COLONOSCOPY FLX DX W/COLLJ SPEC WHEN PFRMD 09/28/2006 Colonoscopy COLONOSCOPY FLX DX W/COLLJ SPEC WHEN PFRMD 11/21/10 ESOPHAGOGASTRODUODENOSCOPY TRANSORAL DIAGNOSTIC 10/02/03 EGD ESOPHAGOGASTRODUODENOSCOPY TRANSORAL DIAGNOSTIC 09/28/2006 EGD INSJ TUNNELED CTR VAD W/SUBQ PORT AGE 5 YR/> 02/07/08 R IJ POWER PORT PAST SURGICAL HISTORY OF 07/18/02 cyst removed from right chest PAST SURGICAL HISTORY OF 07/19/01 cyst removed from back of right calf TONSILLECTOMY PRIMARY/SECONDARY Tonsillectomy ansd adnoids FAMILY HISTORY Problem Relation Age of Onset Colon Cancer Mother Colon Cancer Father Diabetes Father borderline ,not medicated Cancer Maternal Aunt Cancer Maternal Uncle SOCIAL HISTORY[1] MEDICATIONS: Prior to Admission Medications: testosterone (ANDROGEL) 25 mg/ 2.5g (1%) GlPkApply 2.5 g to affected area once daily. APPLY TO CLEAN, DRY, INTACT SKIN OF THE SHOULDERS AND UPPER ARMSDisp: 90 PacketRfl: 1 coenzyme Q10 (CO Q-10) 30 mg capsuleTake 1 capsule by mouth once daily.Disp: Rfl: Cholecalciferol, Vitamin D3, 2,000 unit ORAL TabTake by mouth. Take one(1) tablet daily. Disp: Rfl: 0 lisinopril(PRINIVIL 10 MG TAB)Take one(1) tablet daily.Disp: 90Rfl: 3 MULTIVITAMIN TABTake one(1) tablet daily.Disp: Rfl: 0 Current Facility-Administered Medications Medication Dose Route Frequency NaCl 0.9% iv flush bag 20 mL INTRAVENOUS PRN lactated ringers iv infusion 75 mL/hr INTRAVENOUS CONTINUOUS ondansetron (PF) 4 mg injection (ZOFRAN) 4 mg INTRAVENOUS q 6 H PRN morphine 2 mg injection 2 mg INTRAVENOUS q 4 H PRN ALLERGIES Allergen Reactions Adhesive Neosporin [Neomycin* Rash, Itching GI SPECIFIC REVIEW OF SYSTEMS: See HPI Objective PHYSICAL EXAM: BP 170/59 Pulse 61 Temp 36.9 ?C (98.4 ?F) (Oral) Resp 16 Ht 175.3 cm (5' 9") Wt 64.2 kg (141 lb 8.6 oz) SpO2 99% BMI 20.90 kg/m? Physical Exam Vitals reviewed. Pulmonary: Effort: Pulmonary effort is normal. No respiratory distress. Abdominal: General: Bowel sounds are normal. There is no distension. Palpations: Abdomen is soft. Tenderness: There is no abdominal tenderness. There is no guarding or rebound. Neurological: Mental Status: He is alert and oriented to person, place, and time. DATA: Diagnostic Tests Reviewed for Today's Visit: Most recent labs and imaging results. WBC (k/uL) Date Value 02/25/2025 8.90 RBC (m/uL) Date Value 02/25/2025 4.33 Hemoglobin (g/dL) Date Value 02/25/2025 13.8 Hematocrit (%) Date Value 02/25/2025 40.1 MCV (fL) Date Value 02/25/2025 92.6 MCH (pg) Date Value 02/25/2025 31.9 MCHC (g/dL) Date Value 02/25/2025 34.4 RDW-CV (%) Date Value 02/25/2025 12.6 Platelet Count (k/uL) Date Value 02/25/2025 227 MPV (fL) Date Value 02/25/2025 10.3 Glucose ( (more content not included)... [facility] ECG COMPLETEon 02-25-2025 ECG COMPLETE Ventricular Rate : 5 5 BPM Atrial Rate : 55 BPM P-R Interval : 188 ms QRS Duration : 166 ms Q-T Interval : 518 ms QTC Calculation(Bazett) : 495 ms Calculated P [place] : 42 degrees Calculated R [place] : 20 degrees Calculated T [place] : -61 degrees SINUS BRADYCARDIA RIGHT BUNDLE BRANCH BLOCK T WAVE ABNORMALITY, CONSIDER INFEROLATERAL ISCHEMIA ABNORMAL ECG WHEN COMPARED WITH ECG OF 25-Feb-2025 18:58, NO SIGNIFICANT CHANGE WAS FOUND Confirmed by ZAKIA ESTRADA MD ([id number]) on 02/27/2025 6:40:47 PM NAME : JEANIE RANKIN PID : [id number] : 1940 Gender : Male Race : ORD : [id number] Procedure Date : Feb 25 2025 21:08:19 Edit Date : Feb 27 2025 18:40:52 Diagnosis: SINUS BRADYCARDIA RIGHT BUNDLE BRANCH BLOCK T WAVE ABNORMALITY, CONSIDER INFEROLATERAL ISCHEMIA ABNORMAL ECG WHEN COMPARED WITH ECG OF 25-Feb-2025 18:58, NO SIGNIFICANT CHANGE WAS FOUND Confirmed by ZAKIA ESTRADA MD ([id number]) on 02/27/2025 6:40:47 PM Test Reason : Arrhythmia Location : 200 : [facility]27 Overread By : ZAKIA ESTRADA MD Edited By : ZAKIA ESTRADA MD Referred By : , Acquired by : DILLON SANTIAGO [facility] ECG COMPLETE Ventricular Rate : 5 6 BPM Atrial Rate : 56 BPM P-R Interval : 210 ms QRS Duration : 158 ms Q-T Interval : 504 ms QTC Calculation(Bazett) : 486 ms Calculated P [place] : 30 degrees Calculated R [place] : 33 degrees Calculated T [place] : -54 degrees SINUS BRADYCARDIA WITH 1ST DEGREE A-V BLOCK RIGHT BUNDLE BRANCH BLOCK T WAVE ABNORMALITY, CONSIDER INFEROLATERAL ISCHEMIA ABNORMAL ECG NO PREVIOUS ECGS AVAILABLE Confirmed by ZAKIA ESTRADA MD ([id number]) on 02/27/2025 6:40:00 PM NAME : JEANIE RANKIN PID : [id number] : 1940 Gender : Male Race : ORD : [id number] Procedure Date : Feb 25 2025 18:58:18 Edit Date : Feb 27 2025 18:40:03 Diagnosis: SINUS BRADYCARDIA WITH 1ST DEGREE A-V BLOCK RIGHT BUNDLE BRANCH BLOCK T WAVE ABNORMALITY, CONSIDER INFEROLATERAL ISCHEMIA ABNORMAL ECG NO PREVIOUS ECGS AVAILABLE Confirmed by ZAKIA ESTRADA MD ([id number]) on 02/27/2025 6:40:00 PM Test Reason : Arrhythmia Location : 200 : [facility] Overread By : ZAKIA ESTRADA MD Edited By : ZAKIA ESTRADA MD Referred By : , Acquired by : DILLON SANTIAGO [facility] ED NOTEon 02-25-2025 ED NOTE HNO ID: [id number] Author: EUNICE BARKER RN Service: Emergency Medicine Author Type: Registered Nurse Type: ED Notes Filed: 02/25/2025 05:02 Note Text: Called [phone] at this time, RN to call back with questions [facility] ED NOTE HNO ID: [id number] Author: EUNICE BARKER RN Service: Emergency Medicine Author Type: Registered Nurse Type: ED Notes Filed: 02/25/2025 02:14 Note Text: [phone] Jeni Sadler [facility] ED NOTE HNO ID: [id number] Author: EUNICE BARKER RN Service: Emergency Medicine Author Type: Registered Nurse Type: ED Notes Filed: 02/25/2025 01:01 Note Text: NG irrigated with 60 ml of sterile water, then connected to low intermittent suctioning. [facility] ED PROV NOTEon 02-25-2025 ED PROV NOTE HNO ID: [id number] Author: CARLA BERRY MD Service: Emergency Medicine Author Type: Physician Type: ED Provider Notes Filed: 02/25/2025 01:06 Note Text: Attending Note Brief HPI: Jeanie Rankin is a 84 year old male with a PMH as documented below who presents for evaluation of obstruction. Patient presented as a transfer from [place] emergency department where he went with recurrent vomiting. Found to have gastric outlet obstruction secondary to herniation of the gastric body and possibly portion of the GE junction into the mediastinum on their CT. NG tube placed prior to transfer. Patient has no pain complaints at this time. Patient is DNR comfort care only PAST MEDICAL HISTORY Diagnosis Date Anemia, unspecified Benign neoplasm of colon Diverticulosis of colon (without mention of hemorrhage) Esophagitis Family history of malignant neoplasm of gastrointestinal tract Family history of malignant neoplasm of gastrointestinal tract Gout, unspecified right toe Internal hemorrhoids without mention of complication Myalgia and myositis, unspecified inclusion of body Nodular lymphoma B CELL Other abnormal clinical finding low testosterone Other specified gastritis Personal history of colonic polyps Unspecified essential hypertension Physical Exam: - Gen: Frail and nontoxic appearing, NAD, NG tube in place - Pulm: No respiratory distress, CTAB - Neuro: No focal neurologic deficits, AANDOx3 - Abdo: Soft, nontender MDM: 84-year-old male DNR comfort care only with signed paperwork at bedside transferred from [place] emergency department for gastric outlet obstruction. NG tube placed for symptom control with large amount of bilious emesis per family. Patient has no pain complaints at this time. Will provide some IV fluids for symptom control as he feels like he is dehydrated. Will have general surgery speak with him and the family to discuss options and make sure he and has good understanding of surgical versus conservative options moving forward. Disposition pending surgery recommendations. See resident note for disposition details I personally saw and examined the patient. I reviewed the resident's note I personally saw the patient and performed a substantive portion of the visit including all aspects of the medical decision making. I agree with the resident's assessment and plan unless otherwise noted. I was present for the significant portion of the procedure(s). CARLA BERRY 02/25/25 0106 [facility] ED PROV NOTE HNO ID: [id number] Author: CARLA BERRY MD Service: Emergency Medicine Author Type: Physician Type: ED Provider Notes Filed: 02/25/2025 23:56 Note Text: ED Provider Note Patient Name: Jeanie Rankin : 1940 SERVICE DATE: 02/24/25 History Patient presents with: Obstruction: Patient transfer from [place] for gastric outlet obstruction 2nd to herniation of gastric body. Patient arrives with NG tube in his left nare and pt states he has been unable to swallow since eating dinner last night. Pt arrives with [facility] paperwork as well. HPI The patient is an 84-year-old male with a past medical history of diverticulosis, esophagitis as well as previous history of B-cell nodule lymphoma presenting today for evaluation as a transfer from [place] for concern of a gastric outlet obstruction with NG tube in place. The patient states that yesterday evening following eating chicken with gravy and mashed potatoes he developed abdominal discomfort as well as difficulty swallowing resulting in nausea and vomiting without any diarrhea. When he was evaluated at [facility], an NG tube was placed and laboratory work was not evident for any leukocytosis or anemia. CT demonstrated concern for gastric outlet obstruction secondary to herniation of the gastric body and possibly a portion of the GE junction into the mediastinum. The GE junction is below the diaphragm. PAST MEDICAL HISTORY Diagnosis Date - Anemia, unspecified - Benign neoplasm of colon - Diverticulosis of colon (without mention of hemorrhage) - Esophagitis - Family history of malignant neoplasm of gastrointestinal tract - Family history of malignant neoplasm of gastrointestinal tract - Gout, unspecified right toe - Internal hemorrhoids without mention of complication - Myalgia and myositis, unspecified inclusion of body - Nodular lymphoma B CELL - Other abnormal clinical finding low testosterone - Other specified gastritis - Personal history of colonic polyps - Unspecified essential hypertension PAST SURGICAL HISTORY Procedure Laterality Date - COLONOSCOPY FLX DX W/COLLJ SPEC WHEN PFRMD 06/29/00 Colonoscopy - COLONOSCOPY FLX DX W/COLLJ SPEC WHEN PFRMD 10/02/03 Colonoscopy - COLONOSCOPY FLX DX W/COLLJ SPEC WHEN PFRMD 09/28/2006 Colonoscopy - COLONOSCOPY FLX DX W/COLLJ SPEC WHEN PFRMD 11/21/10 - ESOPHAGOGASTRODUODENOSCOPY TRANSORAL DIAGNOSTIC 10/02/03 EGD - ESOPHAGOGASTRODUODENOSCOPY TRANSORAL DIAGNOSTIC 09/28/2006 EGD - INSJ TUNNELED CTR VAD W/SUBQ PORT AGE 5 YR/> 02/07/08 R IJ POWER PORT - PAST SURGICAL HISTORY OF 07/18/02 cyst removed from right chest - PAST SURGICAL HISTORY OF 07/19/01 cyst removed from back of right calf - TONSILLECTOMY PRIMARY/SECONDARY Tonsillectomy ansd adnoids FAMILY HISTORY Problem Relation Age of Onset - Colon Cancer Mother - Colon Cancer Father - Diabetes Father borderline ,not medicated - Cancer Maternal Aunt - Cancer Maternal Uncle Social History[1] ALLERGIES Allergen Reactions - Adhesive - Neosporin [Neomycin* Rash, Itching Review of Systems Constitutional: Negative for chills and fever. HENT: Negative for congestion, rhinorrhea and sore throat. Eyes: Negative for pain and redness. Respiratory: Negative for cough, shortness of breath and wheezing. Cardiovascular: Negative for chest pain, palpitations and leg swelling. Gastrointestinal: Positive for abdominal pain, nausea and vomiting. Negative for diarrhea. Genitourinary: Negative for dysuria, frequency and urgency. Musculoskeletal: Negative for myalgias. Skin: Negative for rash. Allergic/Immunologic: Negative for immunocompromised state. Neurological: Negative for weakness and headaches. Physical Exam Vitals [02/24/25 2331] BP Pulse Temp Temp src Resp SpO2 Weight Height 173/55 62 36.4 ?C (97.6 ?F) Oral 18 95 % -- -- Physical Exam Vitals and nursing note reviewed. Constitutional: General: He is not in acute distress. Appearance: Normal appearance. He is not ill-appearing. HENT: Head: Normocephalic and atraumatic. Nose: Nose normal. Comments: NG tube in place Mouth/Throat: Mouth: Mucous membranes are moist. Pharynx: Oropharynx is clear. No oropharyngeal exudate or posterior oropharyngeal erythema. Eyes: Extraocular Movements: Extraocular movements intact. Conjunctiva/sclera: Conjunctivae normal. Pupils: Pupils are equal, round, and reactive to light. Cardiovascular: Rate and Rhythm: Normal rate and regular rhythm. Pulses: Normal pulses. Heart sounds: No murmur heard. No friction rub. No gallop. Pulmonary: Effort: Pulmonary effort is normal. No respiratory distress. Breath sounds: Normal breath sounds. No wheezing, rhonchi or rales. Abdominal: General: Abdomen is flat. There is no distension. Palpations: Abdomen is soft. Tenderness: There is no abdominal tenderness. Musculoskeletal: General: No swelling, deformity or signs o (more content not included)... [facility] HIGH SENSITIVITY TROPONIN To n 02-25-2025 Troponin T.cardiac High sensitivity method [Mass/Vol] 75 ng/L High <12 [facility] Comment on above: Order Comment: Melia zuluaga Type: BLOOD SPECIMEN Ordering Facility: [facility] Address: [address] [place] [address] Performed By: #### 2 [id number], [id number], #### [facility] CLIA [id number] [address] Troponin T.cardiac High sensitivity method [Mass/Vol] 81 ng/L High <12 [facility] Comment on above: Order Comment: Melia zuluaga Type: BLOOD SPECIMEN Ordering Facility: [facility] Address: [address] [place] [address] Performed By: #### 2 [id number], [id number], #### [employer] [facility] CLIA [id number] [address] [place] HISTORY PHYSICALon HISTORY PHYSICAL HNO ID: [id number] Author: DEISI VILLALTA MD Service: General Internal Medicine Author Type: Physician Type: H&P Filed: 02/25/2025 06:49 Note Text: DEPARTMENT OF HOSPITAL MEDICINE HISTORY AND PHYSICAL EXAM SERVICE DATE: 02/25/2025 SERVICE TIME: 5:49 AM Primary Care Physician: No primary care provider on file. NIGHT AND WEEKEND COVERAGE: From 7am - 7pm, please call Sound After 7pm, please call cross cover pager #[phone] Subjective CHIEF COMPLAINT: Abdominal pain, nausea and vomiting HPI: This is a 84 year old male with hx as per below who presents with abdominal pain, nausea and vomiting for the past three days. CT AP showed a large hiatal hernia w gastric outlet obstruction. An NG was placed. Pt denies headache, fever, chills, vision changes, swallowing problems, neck pain, chest pain, shortness of breath, cough, diarrhea, constipation, bleeding, urinary problems, muscle pain or weakness, numbness, tingling, or joint pain/swelling. No other associated symptoms. No other known aggravating or relieving factors. He is afebrile and hypertensive, 95% on RA. Lactate 1.2, CBC was normal, glucose 137, creatinine 0.55, Na 143, K 3.2. PAST MEDICAL HISTORY Diagnosis Date Anemia, unspecified Benign neoplasm of colon Diverticulosis of colon (without mention of hemorrhage) Esophagitis Family history of malignant neoplasm of gastrointestinal tract Family history of malignant neoplasm of gastrointestinal tract Gout, unspecified right toe Internal hemorrhoids without mention of complication Myalgia and myositis, unspecified inclusion of body Nodular lymphoma B CELL Other abnormal clinical finding low testosterone Other specified gastritis Personal history of colonic polyps Unspecified essential hypertension PAST SURGICAL HISTORY Procedure Laterality Date COLONOSCOPY FLX DX W/COLLJ SPEC WHEN PFRMD 06/29/00 Colonoscopy COLONOSCOPY FLX DX W/COLLJ SPEC WHEN PFRMD 10/02/03 Colonoscopy COLONOSCOPY FLX DX W/COLLJ SPEC WHEN PFRMD 09/28/2006 Colonoscopy COLONOSCOPY FLX DX W/COLLJ SPEC WHEN PFRMD 11/21/10 ESOPHAGOGASTRODUODENOSCOPY TRANSORAL DIAGNOSTIC 10/02/03 EGD ESOPHAGOGASTRODUODENOSCOPY TRANSORAL DIAGNOSTIC 09/28/2006 EGD INSJ TUNNELED CTR VAD W/SUBQ PORT AGE 5 YR/> 02/07/08 R IJ POWER PORT PAST SURGICAL HISTORY OF 07/18/02 cyst removed from right chest PAST SURGICAL HISTORY OF 07/19/01 cyst removed from back of right calf TONSILLECTOMY PRIMARY/SECONDARY Tonsillectomy ansd adnoids FAMILY HISTORY Problem Relation Age of Onset Colon Cancer Mother Colon Cancer Father Diabetes Father borderline ,not medicated Cancer Maternal Aunt Cancer Maternal Uncle SOCIAL HISTORY[1] HOME MEDICATIONS: Prior to Admission Medications Prescriptions Last Dose Informant Patient Reported? Taking? Cholecalciferol, Vitamin D3, 2,000 unit ORAL Tab Yes No Sig: Take by mouth. Take one(1) tablet daily. MULTIVITAMIN TAB Yes No Sig: Take one(1) tablet daily. coenzyme Q10 (CO Q-10) 30 mg capsule No No Sig: Take 1 capsule by mouth once daily. lisinopril(PRINIVIL 10 MG TAB) No No Sig: Take one(1) tablet daily. testosterone (ANDROGEL) 25 mg/ 2.5g (1%) GlPk No No Sig: Apply 2.5 g to affected area once daily. APPLY TO CLEAN, DRY, INTACT SKIN OF THE SHOULDERS AND UPPER ARMS Facility-Administered Medications: None ALLERGIES Allergen Reactions Adhesive Neosporin [Neomycin* Rash, Itching REVIEW OF SYSTEM: All ROS are negative except those noted in HPI Objective PHYSICAL EXAM: BP 151/53 Pulse 62 Temp (Src) 97.6 (Oral) Resp 18 SpO2 95% O2 Therapy: Room Air GENERAL: Alert, no distress, cooperative, NAD SKIN: Warm, dry intact, no open lesions, no rashs HEAD/SINUSES: Normocephalic, atraumatic, oral mucosa moist EYES: PERRLA, EOMI NECK: No jugulovenous distention, Supple, no adenopathy LUNGS: Lungs clear to auscultation, no wheezes, ronchi, or rales CARDIAC: RRR, Normal S1 and S2; no rubs, murmurs, or gallops ABDOMEN: Abdomen soft, non-tender, BS normal, No masses or organomegaly EXTREMITIES: Extremities normal, no deformities, edema, clubbing or skin discoloration. NEURO: Sensation grossly intact, Cranial nerves II-XII intact, moves all 4 extremities, speech was clear and coherent DATA: Diagnostic tests reviewed for today's visit: Most recent labs and imaging results. CBC: Recent Labs 02/25/25 0332 WBC 8.90 RBC 4.33 HB 13.8 HCT 40.1 PLT 227 MCV 92.6 MCH 31.9 MPV 10.3 Coags: No results for input(s): "PT", "INR", "APTT" in the last 24 hours. BMP: Recent Labs 02/25/25 0332 NA 143 K 3.2* CHLOR 94* CO2 39* BUN 20 CREAT 0.55* GLUC 137* CMP: Recent Labs 02/25/25 0332 NA 143 K 3.2* CHLOR 94* CO2 39* BUN 20 CREAT 0.55* GLUC 137* CA 9.7 ANION 10 Cardiac Enzymes: No results for input(s): "CK", "MB", "CKMB", "TROPT" in the last 24 hours. Liver Function, Amylase, Lipase: No results for inpu (more content not included)... [facility] HISTORY PHYSICAL HNO ID: [id number] Author: ALEJANDRO LAM MD Service: General Surgery Author Type: Resident Type: H&P Filed: 02/25/2025 15:44 Note Text: Attestation signed by Alejandro Lam MD at 02/25/2025 3:44 PM I saw and evaluated the patient. Discussed with the resident and agree with resident's findings and plan as documented in the resident's note. Paraesophageal hernia. Feels better with NG tube. Abdomen soft. Awaiting EGD. Patient is not interested in any surgical intervention at this point in time. CONSULT: EGS SERVICE SERVICE DATE: 02/25/2025 SERVICE TIME: 1:34 AM Subjective CHIEF COMPLAINT: Gastric outlet obstruction HPI: 84 year old male w/PMH of Nodular B cell lymphoma s/p chemo/rad (2007), inclusion body myositis, esophagitis, large hiatal hernia who presents w/GOO 2/2 hiatal hernia. Patient states that for the past 24 hours he has experienced abdominal pain with associated nausea vomiting and has been unable to keep anything down including water. Patient states that abdominal pain started about 3 days ago but was mild and intermittent. Yesterday, patient states that abdominal pain then began to be. With nausea vomiting that became progressively worse until he was unable to tolerate even liquids which prompted him to come to the ED for further management. In ED, CT abdomen pelvis showed a large hiatal hernia containing a significant portion of the gastric body and subsequently causing gastric outlet obstruction. NG was placed for gastric decompression and repeat CT ab abdomen pelvis was obtained that redemonstrated the large hiatal hernia that contained a short segment of the proximal duodenum which was concerning for increased risk of obstruction. Imaging also showed decreased distention of the stomach and herniated duodenal segment post enteric tube placement. Since placement of NG tube patient had 3 canisters full of drainage prior to transfer to [facility] for further management. Patient also had a lactate that was within normal range. Patient no longer experiencing any abdominal pain, nausea, vomiting. Patient states that he has had a known large hiatal hernia that is contained most of his stomach which was also supported by outsiderecords going back as far as 2010. Patient denies ever having experienced similar symptoms in the past. Patient's last EGD and colonoscopy was greater than 30 years ago. Denies any anticoagulation use, smoking, EtOH, recreational drug use. Denies any previous abdominal surgeries. FUNCTIONAL STATUS: Limited most or all of the time (uses scooter, mobility device) PAST MEDICAL HISTORY Diagnosis Date Anemia, unspecified Benign neoplasm of colon Diverticulosis of colon (without mention of hemorrhage) Esophagitis Family history of malignant neoplasm of gastrointestinal tract Family history of malignant neoplasm of gastrointestinal tract Gout, unspecified right toe Internal hemorrhoids without mention of complication Myalgia and myositis, unspecified inclusion of body Nodular lymphoma B CELL Other abnormal clinical finding low testosterone Other specified gastritis Personal history of colonic polyps Unspecified essential hypertension PAST SURGICAL HISTORY Procedure Laterality Date COLONOSCOPY FLX DX W/COLLJ SPEC WHEN PFRMD 06/29/00 Colonoscopy COLONOSCOPY FLX DX W/COLLJ SPEC WHEN PFRMD 10/02/03 Colonoscopy COLONOSCOPY FLX DX W/COLLJ SPEC WHEN PFRMD 09/28/2006 Colonoscopy COLONOSCOPY FLX DX W/COLLJ SPEC WHEN PFRMD 11/21/10 ESOPHAGOGASTRODUODENOSCOPY TRANSORAL DIAGNOSTIC 10/02/03 EGD ESOPHAGOGASTRODUODENOSCOPY TRANSORAL DIAGNOSTIC 09/28/2006 EGD INSJ TUNNELED CTR VAD W/SUBQ PORT AGE 3 YR/> 02/07/08 R IJ POWER PORT PAST SURGICAL HISTORY OF 07/18/02 cyst removed from right chest PAST SURGICAL HISTORY OF 07/19/01 cyst removed from back of right calf TONSILLECTOMY PRIMARY/SECONDARY Tonsillectomy ansd adnoids FAMILY HISTORY Problem Relation Age of Onset Colon Cancer Mother Colon Cancer Father Diabetes Father borderline ,not medicated Cancer Maternal Aunt Cancer Maternal Uncle SOCIAL HISTORY[1] Prescriptions Prior to Admission[2] ALLERGIES Allergen Reactions Adhesive Neosporin [Neomycin* Rash, Itching COMPLETE REVIEW OF SYSTEMS: GENERAL: No weight loss, malaise or fevers. HEENT: Negative for frequent or significant headaches, No changes in hearing or vision, no nose bleeds or other nasal problems. NECK: Negative for lumps, goiter, pain and significant neck swelling. RESPIRATORY: Negative for cough, hemoptysis, wheezing, COPD, dyspnea or shortness of breath. CARDIOVASCULAR: Negative for chest pain, leg swelling, hypertension, CHF or palpitations. GI: No nausea, vomiting, or diarrhea. MUSCULOSKELETAL: Negative for (more content not included)... Normal [facility] Lactate (Bld) [Moles/Vol]on 02-25-2025 Lactate [Moles/Vol] 1.2 mmol/L Normal 0.5-2.2 [facility] Comment on above: Order Comment: Speci men Type: BLOOD SPECIMEN Ordering Facility: [facility] Address: [address] [place] [address] Performed By: #### 2 777-1, 36916-3, 81375-8 #### [facility] CLIA [id number] [address] [place] [address] [place] NURSING PROGon 02-25-2025 NURSING PROG HNO ID: [id number] Author: MYA OROZCO RN Service: Nursing Author Type: Registered Nurse Type: Nursing Progress Note Filed: 02/25/2025 13:36 Note Text: Other: Pt educated on importance of turning every two hours. Pt refusing to turn at this time and asked to come back later. Extra pillows left at bedside if he decides he wants to reposition. Will continue to educate. Pt declining image of sacrum and stating it is an old healed pressure injury from previous hospital admission. Normal [facility] Abdomen Single View (Portabl e)on 02-24-2025 Abdomen Single View (Portable) [facility] Imaging Services [address] [place] [id number] Abdomen Single View (Portable) MR#: [id number] Acct: [id number] Name: JEANIE RANKIN Rep #: [id number] : 1940 M 84 From: Ronnie Richards MD PCP: Dr. Taylor Zuniga DO Status: REG ER Study: Abdomen Single View (Portable) Date of Exam: 1 Exam# [id number] Ordering Dr: Zee Alonso DO PROCEDURE: ABDOMEN SINGLE VIEW (PORTABLE) 02/24/2025 REASON FOR EXAM: NG INSERTION TECHNIQUE: Procedure Code: RADABD_P Modality: DX Procedure: ABDOMEN SINGLE VIEW (PORTABLE) COMPARISON: None. FINDINGS: Enteric tube courses midline, side port/distal tip terminating within the left upper quadrant in the expected location of the stomach. No dilated bowel loops in the upper abdomen. No discernible free air. Excreted IV contrast in the renal collecting systems. Mild bibasilar subsegmental atelectasis. Degenerative changes of the spine. RAD/Abdomen Single View (Portable) IMPRESSION: Enteric tube terminates appropriately within the stomach. Reading Location: [id number] CC: Dr. Taylor Zuniga DO; Dr. Zee Alonso DO Director Summer Sessions: Signed Normal [facility] Abdomen/Pelvis without Conto n 02-24-2025 Abdomen/Pelvis without Cont [facility] Imaging Services [address] [place], [place] [id number] Abdomen/Pelvis without Cont MR#: [id number] Acct: [id number] Name: JEANIE RANKIN Rep #: [id number] : 1940 M 84 From: Ronnie Richards MD PCP: Dr. Taylor Zuniga, DO Status: REG ER Study: Abdomen/Pelvis without Cont Date of Exam: 02/05 05/31 Exam# [id number] Ordering Dr: Zee Alonso DO PROCEDURE: CT ABDOMEN/PELVIS WITHOUT CONT 02/24/2025 REASON FOR EXAM: ABDOMINAL PAIN TECHNIQUE: Procedure Code: CTABDPEL Modality: CT Procedure: ABDOMEN/PELVIS WITHOUT CONT Noncontrast technique limits evaluation of the abdominal and pelvic viscera. Coronal and Sagittal reconstruction series were provided. One or more dose reduction techniques were used (e.g., Automated exposure control, adjustment of the mA and/or kV according to patient size, use of iterative reconstruction technique). RADIATION DOSE SUMMARY: DLP: 1107.46 mGycm COMPARISON: Earlier same day 02/24/2025. FINDINGS: Lung bases: Mild bibasilar dependent atelectasis. Redemonstrated hiatal hernia protruding into the posterior mediastinum, which contains a herniated segment of the proximal duodenum, mildly distended. Not substantially changed since prior exam from earlier same day. Liver: Unremarkable. Gallbladder: Unremarkable. Spleen: Normal in size. Punctate calcified granulomas. Pancreas: Unremarkable. Age-related fatty atrophy. Adrenals: Unremarkable, no discrete nodules. Kidneys: Unremarkable. No hydronephrosis. Bladder: Unremarkable. Excreted IV contrast opacifies the bladder lumen. Reproductive Organs: Mildly enlarged prostate. Bowel: Enteric tube terminates within the proximal stomach. Interval decreased distention of the stomach and proximal duodenum with fluid and air since prior exam. Similar configuration of a moderate-large hiatal hernia which contains a herniated segment of the proximal duodenum. Remainder of the GI tract demonstrates no evidence for obstruction or active inflammatory process. Unremarkable appendix. Lymph nodes: No suspicious lymph node enlargement. Vasculature: Normal caliber abdominal aorta. Moderate atherosclerotic disease. Peritoneum / Retroperitoneum: No ascites or free air. Bones: Mild gynecomastia. Multilevel degenerative changes of the spine. CT/Abdomen/Pelvis without Cont IMPRESSION: Redemonstrated moderate-large hiatal hernia which contains a herniated short-segment of the proximal duodenum, which is at risk for obstruction. Decreased distention of the stomach and herniated duodenal segment post enteric tube placement since prior exam. No other acute findings. Reading Location: [id number] CC: Dr. Taylor Zuniga DO; Dr. Zee Alonso DO Director Summer Sessions: Signed Normal [facility] Absolute lymphocyte countOrd ered By: Zee Alonso on 02-24-2025 Lymphocytes Auto (Unsp spec) [#/Vol] 0.43 10*3/uL Low 0.83-4.51 [facility] Absolute neutrophil countOrd ered By: Zee Alonso on 02-24-2025 Neutrophils (Bld) [#/Vol] 8.0 10*3/uL High 2.0-7.7 [facility] Anion gap in Serum or Plasma Ordered By: Zee Alonso on 02-24-2025 Anion gap [Moles/Vol] 13 mmol/L 5-15 [facility] Automated lymphocyte count a s percentage of total leukocytesOrdered By: Zee Alonso on 02-24-2025 Lymphocytes/100 WBC Auto (Unsp spec) 4.6 % Low 19-41 [facility] BUN/creatinine ratioOrdered By: Zee Alonso on 02-24-2025 Urea nitrogen/Creatinine [Mass ratio] 26.8 mg/mg High 10-20 [facility] Basophil percentageOrdered B y: Zee Alonso on 02-24-2025 Basophils/100 WBC (Bld) 0.1 % 0-1 [facility] Bilirubin, totalOrdered By: Zee Alonso on 02-24-2025 Bilirubin [Mass/Vol] 0.57 mg/dL 0.00-1.30 [facility] CBC W/Diff, Automatedon 02-05 Absolute Lymph 0.43 X10 3/uL Low 0.83-4.51 [facility] Comment on above: Performed By: #### L 100.0100, L500.2500 #### [facility] [address] [place], [place], [id number] Absolute Neut 8.0 X10 3/uL High 2.0-7.7 [facility] Comment on above: Performed By: #### L 100.0100, L500.2500 #### [facility] [address] [place], [address] Basophils/100 WBC (Bld) 0.1 % Normal 0-1 [facility] Comment on above: Performed By: #### L 100.0100, L500.2500 #### [facility] [address] [place], [address] Eosinophils/100 WBC (Bld) 0.0 % Normal 0-5 [facility] Comment on above: Performed By: #### L 100.0100, L500.2500 #### [facility] [address] [place], [address] Erythrocyte distribution width (RBC) [Ratio] 12.4 % Normal 11.6-14.6 [facility] Comment on above: Performed By: #### L 100.0100, L500.2500 #### [facility] [facility] [place], [address] Hematocrit (Bld) [Volume fraction] 41.8 % Normal 40-54 [facility] Comment on above: Performed By: #### L 100.0100, L500.2500 #### [facility] [address] [place], [address] Hemoglobin (Bld) [Mass/Vol] 14.4 g/dL Normal 13.0-16.5 [facility] Comment on above: Performed By: #### L 100.0100, L500.2500 #### [facility] [address] [place], [address] IG% 0.400 Normal 0.0-0.9 [facility] Comment on above: Result Comment: IG% - Immature Granulocytes (promyelocytes, myelocytes and metamyelocytes) > 1% indicates that a LEFT SHIFT is Present. Performed By: #### L 100.0100, L500.2500 #### [facility] [address] [place], [address] Lymphocytes/100 WBC (Bld) 4.6 % Low 19-41 [facility] Comment on above: Performed By: #### L 100.0100, L500.2500 #### [facility] [address] [place], [address] MCH (RBC) [Entitic mass] 31.5 pg Normal 27.0-32.0 [facility] Comment on above: Performed By: #### L 100.0100, L500.2500 #### [facility] [address] [place], [address] MCHC (RBC) [Mass/Vol] 34.4 g/dL Normal 32-36 [facility] Comment on above: Performed By: #### L 100.0100, L500.2500 #### [facility] [address] [place], [address] MCV (RBC) [Entitic vol] 91.5 fL Normal 80-94 [facility] Comment on above: Performed By: #### L 100.0100, L500.2500 #### [facility] [address] [place], [address] Monocytes/100 WBC (Bld) 8.4 % Normal 0-10 [facility] Comment on above: Performed By: #### L 100.0100, L500.2500 #### [facility] [address] [place], [address] Neutrophils/100 WBC (Bld) 86.5 % High 47-70 [facility] Comment on above: Performed By: #### L 100.0100, L500.2500 #### [facility] [address] [place], [address] Nucleated RBC (Bld) [#/Vol] 0 10*3/uL Normal 0-5 [facility] Comment on above: Performed By: #### L 100.0100, L500.2500 #### [facility] [address] [place], [address] Platelet mean volume (Bld) [Entitic vol] 10.0 fL Normal 6.2-12.0 [facility] Comment on above: Performed By: #### L 100.0100, L500.2500 #### [facility] [address] [place], [address] Platelets (Bld) [#/Vol] 247 10*3/uL Normal 150-450 [facility] Comment on above: Performed By: #### L 100.0100, L500.2500 #### [facility] [address] [place], [address] RBC (Bld) [#/Vol] 4.57 10*6/uL Low 4.6-6.2 [facility] Comment on above: Performed By: #### L 100.0100, L500.2500 #### [facility] [address] [place], [address] RDW SD 41.1 fl Normal 35.1-43.9 [facility] Comment on above: Performed By: #### L 100.0100, L500.2500 #### [facility] [address] [place], [address] WBC (Bld) [#/Vol] 9.3 10*3/uL Normal 4.4-11.0 [facility] Comment on above: Performed By: #### L 100.0100, L500.2500 #### [facility] [address] [place], [address] CT Chest, Abd, Pel w/Contras ton 02-24-2025 CT Chest, Abd, Pel w/Contrast [facility] Imaging Services [address] [place] [address] CT Chest, Abd, Pel w/Contrast MR#: [id number] Acct: [id number] Name: JEANIE RANKIN Rep #: [id number] : 1940 M 84 From: Gorge ePreyra MD PCP: Dr. Taylor Zuniga DO Status: REG ER Study: CT Chest, Abd, Pel w/Contrast Date of Exam: Exam# [id number] Ordering Dr: Zee Alonso DO PROCEDURE: CT CHEST, ABD, PEL W/CONTRAST 02/24/2025 REASON FOR EXAM: ABDOMINAL PAIN, DIFFICULTY SWALLOWING TECHNIQUE: Chest, abdomen and pelvis CT with intravenous contrast. Coronal and Sagittal reconstruction series were provided. One or more dose reduction techniques were used (e.g., Automated exposure control, adjustment of the mA and/or kV according to patient size, use of iterative reconstruction technique. CONTRAST: Isovue-300 VOLUME: 90mL RADIATION DOSE SUMMARY: CTDlvol: 19 mGy DLP: 1737 mGycm FINDINGS: Examination of the lung parenchyma demonstrates no mass or consolidation in the left lung. Atelectasis at the right lung base. Large hernia identified which contains a significant portion of the stomach. The stomach is rather massively distended without bowel dilatation and this is concerning for gastric outlet obstruction, likely secondary to the hernia. No mediastinal mass. Normal aorta. No adenopathy. Liver, gallbladder and spleen unremarkable. No pancreatic or renal masses. Aortic calcification without aneurysm. No free air or free fluid. CT/CT Chest, Abd, Pel w/Contrast IMPRESSION: The examination is concerning for gastric outlet obstruction secondary to herniation of the gastric body and possibly a portion of the GE junction into the mediastinum. The gastroesophageal junction is below the diaphragm. Gastric decompression recommended. Reading Location[facility] CC: Dr. Taylor Zuniga DO; Dr. Zee Alonso DO Director Summer Sessions: Signed Normal [facility] Carbon dioxide, total [Moles /volume] in Central venous bloodOrdered By: Zee Alonso on 02-24-2025 CO2 [Moles/Vol] 36.6 mmol/L High 21.0-32.0 [facility] Chloride assayOrdered By: Maya Alonso on 02-24-2025 Chloride [Moles/Vol] 93 mmol/L Low 98-108 [facility] Comprehensive Metabolic Prof ilon 02-24-2025 Albumin [Mass/Vol] 4.7 g/dL Normal 3.4-4.8 [facility] Comment on above: Performed By: #### L 100.0100, L500.2500 #### [facility] [address] [place], [address] Albumin/Globulin [Mass ratio] 1.4 {ratio} Normal 0.9-2.4 [facility] Comment on above: Performed By: #### L 100.0100, L500.2500 #### [facility] [address] [place], [address] ALK PHOS 68 U/L Normal 40-129 [facility] Comment on above: Performed By: #### L 100.0100, L500.2500 #### [facility] [address] [place], [address] ALT [Catalytic activity/Vol] 13 U/L Normal <=46 [facility] Comment on above: Performed By: #### L 100.0100, L500.2500 #### [facility] [address] [place], [address] AST [Catalytic activity/Vol] 22 U/L Normal <=37 [facility] Comment on above: Performed By: #### L 100.0100, L500.2500 #### [facility] [address] [place], [address] Bilirubin [Mass/Vol] 0.57 mg/dL Normal 0.00-1.30 [facility] Comment on above: Performed By: #### L 100.0100, L500.2500 #### [facility] [address] [place], [address] BUN/CRE 26.8 RATIO High 10-20 [facility] Comment on above: Performed By: #### L 100.0100, L500.2500 #### [facility] [address] [place], [address] Calcium [Mass/Vol] 10.4 mg/dL Normal 7.6-11.0 [facility] Comment on above: Performed By: #### L 100.0100, L500.2500 #### [facility] [address] [place], [address] Chloride [Moles/Vol] 93 mmol/L Low 98-108 [facility] Comment on above: Performed By: #### L 100.0100, L500.2500 #### [facility] [address] [place], [address] CO2 [Moles/Vol] 36.6 mmol/L High 21.0-32.0 [facility] Comment on above: Performed By: #### L 100.0100, L500.2500 #### [facility] [address] [place], [address] Creatinine [Mass/Vol] 0.69 mg/dL Low 0.70-1.20 [facility] Comment on above: Performed By: #### L 100.0100, L500.2500 #### [facility] [address] [place], [address] ECRCL 61.97 ml/min Normal 50-250 [facility] Comment on above: Performed By: #### L 100.0100, L500.2500 #### [facility] [address] [place], [address] GAP 13 Normal 5-15 [facility] Comment on above: Performed By: #### L 100.0100, L500.2500 #### [facility] [address] [place], [address] GFR/1.73 sq M.predicted among non-blacks MDRD (S/P/Bld) [Vol rate/Area] 90 mL/min/{1.73_m2} Normal >60 [facility] Comment on above: Result Comment: mL/m in/1.73m2 CKD-EPI Creatinine Equation (2020) Performed By: #### L 100.0100, L500.2500 #### [facility] [address] [place], [address] Globulin (S) [Mass/Vol] 3.2 g/dL Normal 2.2-4.2 [facility] Comment on above: Performed By: #### L 100.0100, L500.2500 #### [facility] [address] [place], [address] Glucose [Mass/Vol] 190 mg/dL High 70-99 [facility] Comment on above: Performed By: #### L 100.0100, L500.2500 #### [facility] [address] [place], [address] Potassium [Moles/Vol] 3.5 mmol/L Normal 3.3-5.1 [facility] Comment on above: Performed By: #### L 100.0100, L500.2500 #### [facility] [address] [place], [address] Sodium [Moles/Vol] 142 mmol/L Normal 133-145 [facility] Comment on above: Performed By: #### L 100.0100, L500.2500 #### [facility] [address] [place], [address] T PROT 7.9 g/dL Normal 5.9-8.4 [facility] Comment on above: Performed By: #### L 100.0100, L500.2500 #### [facility] [address] [place], [address] Urea nitrogen [Mass/Vol] 18 mg/dL Normal 4-19 [facility] Comment on above: Performed By: #### L 100.0100, L500.2500 #### [facility] [address] [place], [address] Consultation - Surgicalon Consultation - Surgical [facility] Medical Records Department [address] [place] [address] Consultation - Surgical 02/24/25 1900 MR#: [id number] Acct: [id number] Name: JEANIE RANKIN Rep #: [id number] : 1940 84 From: Windy Jasso MD PCP: Dr. Taylor Zuniga, DO Status:DEP ER Location: ED Assessment Plan Assessment/Plan (1) Abnormal CT of the abdomen: (2) N V (nausea and vomiting): PLAN: Plan Did review CT chest abdomen pelvis personally unable to follow stomach well to find a reason for the gastric outlet obstruction. Patient did previously have entire stomach in the chest in 2019 and a hiatal hernia. Did place NG at bedside and got about 2300 out initially still draining. ER is planning to repeat CT abdomen pelvis see if we have any better evaluation once the stomach has been drained. Addendum: repeat CT a/p shows distal stomach and 1st part of duodenum still in chest- recommend transfer to tertiary care . Windy Jasso M.D. Pager: [phone] [facility] [address] [place] [address], [facility]patient [facility], [address] [place] [address] Office: [phone] HPI Consult Data Date of Consult: 02/25/25 HPI Narrative HPI Narrative: JEANIE RANKIN, is a 84 M who presents due to continuing spitting up and vomiting. 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 Patient's has been chopping up food into smaller bites and he is able to typically swallow this. They had some turkey gravy and green beans yesterday and patient did have a large amount of emesis yesterday and then this morning he was having difficulty swallowing even water as the was trying to get him rehydrated due to all the vomiting yesterday. He did complain of some abdominal discomfort yesterday. CT chest abdomen pelvis was done patient does have a history of large hiatal hernia in 2019 and entire stomach was in his chest. Current CT does show very dilated stomach with appears to have the prepyloric stomach and duodenum and the chest distended with fluid as well as the gastric body distended with fluid and air-read pending [facility] Medical History (Updated 02/24/25 @ 21:[address] Zee Alonso DO) History of non-Hodgkin's lymphoma Lichenification Lymphedema Inclusion body myositis Scarlet fever Cancer CYST EXCISION RIGHT BREAST Osteopenia Hypertension Anemia Home Medications ???Medication ???Instructions ???Recorded ???Last Taken ???Type Cholecalciferol (Vitamin D3) 1,000 units PO DAILY supplement Unknown History multivitamin with folic acid 400 1 tab PO DAILY supplement 07/31/16 Unknown History mcg tablet (Thera) cyanocobalamin (vitamin B-12) 1,000 mcg sublingual DAILY 8 Unknown History 1,000 mcg sublingual tablet supplement Nitric Oxide 420 mg PO DAILY supplement 9 Unknown History coenzyme Q10 50 mg chewable tablet 200 mg PO DAILY supplement 12/04 Unknown History elderberry fruit 200 mg capsule 200 mg PO DAILY supplement 3 Unknown History turmeric 400 mg capsule 400 mg PO DAILY supplement 3 Unknown History cetirizine 10 mg tablet (24Hour 10 mg PO DAILY allergies 01/29/24 02/01/24 History Allergy) lisinopril 5 mg tablet 10 mg PO DAILY blood pressure 01/0602/01/24 History Allergy/AdvReac Type Severity Reaction Status Date / Time bacitracin (From Neosporin AdvReac Mild Itching Verified 02/24/25 17:08 ([id number])) neomycin (From Neosporin AdvReac Mild Itching Verified 02/24/25 17:08 ([id number])) polymyxin B (From Neosporin AdvReac Mild Itching Verified 02/24/25 17:08 ([id number])) adhesive tape AdvReac Unknown Verified 02/24/25 17:08 Family History Father Colon cancer Mother Gastric cancer Surgical History History of cataract extraction Social History Smoking Status: Never smoker ROS Constitutional Constitutional: Reports anorexia ENT HEENT: Reports dysphagia Cardiovascular Cardiovascular: Reports chest pain Gastrointestinal Gastrointestinal: Reports abdominal pain and constipation Genitourinary Genitourinary: Denies hematuria Musculoskeletal Musculoskeletal: Reports difficulty walking Integumentary Integumentary: Denies jaundice Neurologic Neurologic: Reports weakness Hematologic/Lymphatic Hematologic/Lymphatic: Denies easy bleeding Physical Exam Const alert General Appearance: frail Nutritional Appearance: cachectic Resp normal respiratory effort Cardio Rate: regular rate GI soft to palpation, non-tender and non-distended Lab / Micro Data 02/24/25 17:48 02/24/25 17:48 Labs: Labor (more content not included)... Normal [facility] ED NOTEon 02-24-2025 ED NOTE HNO ID: [id number] Author: GUS NICOLE RN Service: ? Author Type: Registered Nurse Type: ED Notes Filed: 02/24/2025 23:23 Note Text: Bed: 35-ED Expected date: Expected time: Means of arrival: Comments: [facility] Emergency Department Summary on 02-24-2025 Emergency Department Summary [facility] Medical Records Department [address] [place] [address] Emergency Department Summary 02/24/25 MR#: [id number] Acct: [id number] Name: JEANIE RANKIN Rep #: [id number] : [id number] From: Zee Alonso DO PCP: Dr. Taylor Zuniga DO Status:DEP ER Location: ED HPI History of Present Illness Chief Complaint: Nausea/Vomiting Detail of Chief Complaint: Difficulty swallowing and abdominal pain Informant: patient and family Narrative Narrative: Patient presents to the emergency department with complaint difficulty swallowing and abdominal pain.'s symptoms started last evening after dinner. He ate chicken with gravy and mashed potatoes. 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 Typically has to have his food cut up very small. Patient then apparently developed some abdominal discomfort and complained of difficulty swallowing and unable to swallow water. He was spitting up mostly phlegm. He has not had any diarrhea. No blood in his stool or black tarry stool. [facility] Medical History (Updated 02/24/25 @ 21:[address] Remus Ungur, DO) History of non-Hodgkin's lymphoma Lichenification Lymphedema Inclusion body myositis Scarlet fever Cancer CYST EXCISION RIGHT BREAST Osteopenia Hypertension Anemia Home Medications ???Medication ???Instructions ???Recorded ???Last Taken ???Type Cholecalciferol (Vitamin D3) 1,000 units PO DAILY supplement Unknown History multivitamin with folic acid 400 1 tab PO DAILY supplement 07/31/16 Unknown History mcg tablet (Thera) cyanocobalamin (vitamin B-12) 1,000 mcg sublingual DAILY 8 Unknown History 1,000 mcg sublingual tablet supplement Nitric Oxide 420 mg PO DAILY supplement 9 Unknown History coenzyme Q10 50 mg chewable tablet 200 mg PO DAILY supplement 12/04 Unknown History elderberry fruit 200 mg capsule 200 mg PO DAILY supplement 3 Unknown History turmeric 400 mg capsule 400 mg PO DAILY supplement 3 Unknown History cetirizine 10 mg tablet (24Hour 10 mg PO DAILY allergies 01/29/24 02/01/24 History Allergy) lisinopril 5 mg tablet 10 mg PO DAILY blood pressure 01/0602/01/24 History Allergy/AdvReac Type Severity Reaction Status Date / Time bacitracin (From Neosporin AdvReac Mild Itching Verified 02/24/25 17:08 ([id number])) neomycin (From Neosporin AdvReac Mild Itching Verified 02/24/25 17:08 ([id number])) polymyxin B (From Neosporin AdvReac Mild Itching Verified 02/24/25 17:08 ([id number])) adhesive tape AdvReac Unknown Verified 02/24/25 17:08 Family History Father Colon cancer Mother Gastric [...] on exertion, orthopnea or sputum Gastrointestinal Gastrointestinal: Reports abdominal pain, nausea, vomiting and other Details: Difficulty swallowing ; Denies diarrhea Genitourinary Genitourinary ED: Denies dysuria, hematuria or urinary frequency Musculoskeletal Musculoskeletal: Denies arthralgias, back pain, myalgias or neck pain Integumentary Denies abscess, Abrasions or rash Neurologic Neurologic: Denies headache(s) or weakness Psychiatric Psychiatric: Denies anxiety, depression or suicidal thoughts Endocrine Endocrinology: Denies polydipsia, polyphagia or polyuria Hematologic/Lymphatic Hematologic/Lymphatic: Denies easy bleeding, easy bruising or lymphadenopathy Allergic/Immunologic Allergic/Immunologic ED: Denies mouth swelling, tongue swelling or urticaria EXAM Physical Exam Const Vital Signs: 02/24/25 17:04 02/24/25 19:03 02/24/25 19:56 Temperature 98.3 F Temperature Source Oral Pulse Rate 68 70 Respiratory Rate 20 H 24 H Blood Pressure 189/74 H 208/184 H 173/56 H Blood Pressure Mean 112 192 95 Pulse Ox 98 100 Oxygen Delivery Method Room Air Room Air 02/24/25 21:00 Temperature Temperature Source Pulse Rate 60 Respiratory Rate 16 Blood Pressure 169/59 H Blood Pressure Mean 95 Pulse Ox 97 Oxygen Delivery Method Room Air Positive well nourished and well developed G (more content not included)... Normal [facility] Eosinophil percentageOrdered By: Zee Alonso on 02-24-2025 Eosinophils/100 WBC (Bld) 0.0 % 0-5 [facility] Erythrocyte distribution wid th ratioOrdered By: Zee Alonso on 02-24-2025 Erythrocyte distribution width (RBC) [Ratio] 12.4 % 11.6-14.6 [facility] Erythrocyte distribution wid th standard deviationOrdered By: Zee Alonso on 02-24-2025 Erythrocyte distribution width (RBC) [Ratio] 41.1 fl 35.1-43.9 [facility] Glomerular filtration rate ( GFR) estimation/1.73 sq m using serum, plasma, or whole bOrdered By: Zee Alonso on 02-24-2025 GFR/1.73 sq M.predicted among non-blacks MDRD (S/P/Bld) [Vol rate/Area] 90 mL/min/{1.73_m2} >60 [facility] Comment on above: mL/min/1.73m2 CKD-EP I Creatinine Equation (2020) Hematocrit Auto (Bld) [Volum e fraction]Ordered By: Zee Alonso on 02-24-2025 Hematocrit (Bld) [Volume fraction] 41.8 % 40-54 [facility] Hemoglobin measurementOrdere d By: Zee Alonso on 02-24-2025 Hemoglobin (Bld) [Mass/Vol] 14.4 g/dL 13.0-16.5 [facility] Immature granulocytes/100 WB C Auto (Bld)Ordered By: Zee Alonso on 02-24-2025 Immature granulocytes/100 WBC (Bld) 0.400 % 0.0-0.9 [facility] Comment on above: IG% - Immature Granu locytes (promyelocytes, myelocytes and metamyelocytes) > 1% indicates that a LEFT SHIFT is Present. Laboratory - Chemistry and C hemistry - challengeOrdered By: Zee Alonso on 02-24-2025 AST [Catalytic activity/Vol] 22 U/L <38 [facility] MCV (mean corpuscular volume ) determinationOrdered By: Zee Alonso on 02-24-2025 MCV (RBC) [Entitic vol] 91.5 fL 80-94 [facility] Mean corpuscular hemoglobin (MCH) determinationOrdered By: Zee Alonso on 02-24-2025 MCH (RBC) [Entitic mass] 31.5 pg 27.0-32.0 [facility] Mean corpuscular hemoglobin concentration (MCHC) determinationOrdered By: Zee Alonso on 02-24-2025 MCHC (RBC) [Mass/Vol] 34.4 g/dL 32-36 [facility] Mean platelet volume determi nationOrdered By: Zee Alonso on 02-24-2025 Platelet mean volume (Bld) [Entitic vol] 10.0 fL 6.2-12.0 [facility] Monocyte percentageOrdered B y: Zee Alonso on 02-24-2025 Monocytes/100 WBC (Bld) 8.4 % 0-10 [facility] Neutrophil percentageOrdered By: Zee Alonso on 02-24-2025 Neutrophils/100 WBC (Bld) 86.5 % High 47-70 [facility] Nucleated red blood cell per centageOrdered By: Zee Alonso on 02-24-2025 Nucleated RBC/100 WBC (Bld) [Ratio] 0 % 0-5 [facility] Platelet countOrdered By: Maya Alonso on 02-24-2025 Platelets (Bld) [#/Vol] 247 10*3/uL 150-450 [facility] Potassium measurement (mass/ volume)Ordered By: Zee Alonso on 02-24-2025 Potassium (Unsp spec) [Mass/Vol] 3.5 mmol/L 3.3-5.1 [facility] RBC Auto (Bld) [#/Vol]Ordere d By: Zee Alonso on 02-24-2025 RBC (Bld) [#/Vol] 4.57 10*6/uL Low 4.6-6.2 [facility] Serum creatinine measurement (mass/volume)Ordered By: Zee Alonso on 02-24-2025 Creatinine [Mass/Vol] 0.69 mg/dL Low 0.70-1.20 [facility] Serum globulin measurementOr dered By: Zee Alonso on 02-24-2025 Globulin (S) [Mass/Vol] 3.2 g/dL 2.2-4.2 [facility] Serum glucose measurement (m ass/volume)Ordered By: Zee Alonso on 02-24-2025 Glucose [Mass/Vol] 190 mg/dL High 70-99 [facility] Serum or plasma alanine kumar otransferase (ALT) measurementOrdered By: Zee Alonso on 02-24-2025 ALT [Catalytic activity/Vol] 13 U/L <47 [facility] Serum or plasma albumin marialuisa urement (mass/volume)Ordered By: Zee Alonso on 02-24-2025 Albumin [Mass/Vol] 4.7 g/dL 3.4-4.8 [facility] Serum or plasma albumin/glob ulin mass ratioOrdered By: Zee Alonso on 02-24-2025 Albumin/Globulin [Mass ratio] 1.4 {ratio} 0.9-2.4 [facility] Serum or plasma alkaline gilberto sphatase measurementOrdered By: Zee Alonso on 02-24-2025 ALP [Catalytic activity/Vol] 68 U/L 40-129 [facility] Serum or plasma calcium marialuisa urement (mass/volume)Ordered By: Rem Ungdayanara on 02-24-2025 Calcium [Mass/Vol] 10.4 mg/dL 7.6-11.0 [facility] Serum or plasma urea nitroge n measurement (mass/volume)Ordered By: Remus Alonso on 02-24-2025 Urea nitrogen [Mass/Vol] 18 mg/dL 4-19 [facility] Sodium levelOrdered By: Ibis Alonso on 02-24-2025 Sodium [Moles/Vol] 142 mmol/L 133-145 [facility] Total proteinOrdered By: Radha Alonso on 02-24-2025 Protein [Mass/Vol] 7.9 g/dL 5.9-8.4 [facility] White blood cell (WBC) count Ordered By: Zee Alonso on 02-24-2025 WBC (Bld) [#/Vol] 9.3 10*3/uL 4.4-11.0 [facility] Absolute lymphocyte countOrd ered By: Taylor Fast on 12-18-2024 Lymphocytes Auto (Unsp spec) [#/Vol] 1.65 10*3/uL 0.83-4.51 [facility] Absolute neutrophil countOrd ered By: Taylor Fast on 12-18-2024 Neutrophils (Bld) [#/Vol] 1.4 10*3/uL Low 2.0-7.7 [facility] Anion gap in Serum or Plasma Ordered By: Taylor Fast on 12-18-2024 Anion gap [Moles/Vol] 10 mmol/L 5-15 [facility] Automated lymphocyte count a s percentage of total leukocytesOrdered By: Taylor Fast on 12-18-2024 Lymphocytes/100 WBC Auto (Unsp spec) 42.4 % High 19-41 [facility] BUN/creatinine ratioOrdered By: Taylor Fast on 12-18-2024 Urea nitrogen/Creatinine [Mass ratio] 39.5 mg/mg High 10-20 [facility] Basophil percentageOrdered B y: Taylor Fast on 12-18-2024 Basophils/100 WBC (Bld) 0.5 % 0-1 [facility] Bilirubin, totalOrdered By: Taylor Fast on 12-18-2024 Bilirubin [Mass/Vol] 0.44 mg/dL 0.00-1.30 [facility] CBC W/Diff, Automatedon 12-05 Absolute Lymph 1.65 X10 3/uL Normal 0.83-4.51 [facility] Comment on above: Performed By: #### L 506.1001, L500.4050, L501.9520, L501.9985, L100.0100 #### [facility] [address] [place], [address] Absolute Neut 1.4 X10 3/uL Low 2.0-7.7 [facility] Comment on above: Performed By: #### L 506.1001, [id number], [id number], L501.9985, L100.0100 #### [facility] [address] [place], [address] Basophils/100 WBC (Bld) 0.5 % Normal 0-1 [facility] Comment on above: Performed By: #### L 506.1001, [id number], [id number], L501.9985, L100.0100 #### [facility] [address] [place], [address] Eosinophils/100 WBC (Bld) 4.1 % Normal 0-5 [facility] Comment on above: Performed By: #### L 506.1001, [id number], [id number], L501.9985, L100.0100 #### [facility] [address] [place], [address] Erythrocyte distribution width (RBC) [Ratio] 12.3 % Normal 11.6-14.6 [facility] Comment on above: Performed By: #### L 506.1001, [id number], L501.9520, L501.9985, L100.0100 #### [facility] [address] [place], [address] Hematocrit (Bld) [Volume fraction] 36.7 % Low 40-54 [facility] Comment on above: Performed By: #### L 506.1001, [id number], [id number], L501.9985, L100.0100 #### [facility] [address] [place], [address] Hemoglobin (Bld) [Mass/Vol] 12.4 g/dL Low 13.0-16.5 [facility] Comment on above: Performed By: #### L 506.1001, [id number], [id number], L501.9985, L100.0100 #### [facility] [address] [place], [address] IG% 0.300 Normal 0.0-0.9 [facility] Comment on above: Result Comment: IG% - Immature Granulocytes (promyelocytes, myelocytes and metamyelocytes) > 1% indicates that a LEFT SHIFT is Present. Performed By: #### L 506.1001, L500.4050, L501.9520, L501.9985, L100.0100 #### [facility] [address] [place], [address] Lymphocytes/100 WBC (Bld) 42.4 % High 19-41 [facility] Comment on above: Performed By: #### L 506.1001, [id number], L501.9520, L501.9985, L100.0100 #### [facility] [address] [place], [address] MCH (RBC) [Entitic mass] 31.8 pg Normal 27.0-32.0 [facility] Comment on above: Performed By: #### L 506.1001, L500.4050, L501.9520, L501.9985, L100.0100 #### [facility] [address] [place], [address] MCHC (RBC) [Mass/Vol] 33.8 g/dL Normal 32-36 [facility] Comment on above: Performed By: #### L 506.1001, L500.4050, L501.9520, L501.9985, L100.0100 #### [facility] [address] [place], [address] MCV (RBC) [Entitic vol] 94.1 fL High 80-94 [facility] Comment on above: Performed By: #### L 506.1001, [id number], L501.9520, L501.9985, L100.0100 #### [facility] [address] [place], [address] Monocytes/100 WBC (Bld) 16.5 % High 0-10 [facility] Comment on above: Performed By: #### L 506.1001, [id number], L501.9520, L501.9985, L100.0100 #### [facility] [address] [place], [address] Neutrophils/100 WBC (Bld) 36.2 % Low 47-70 [facility] Comment on above: Performed By: #### L 506.1001, [id number], L501.9520, L501.9985, L100.0100 #### [facility] [address] [place], [address] Nucleated RBC (Bld) [#/Vol] 0 10*3/uL Normal 0-5 [facility] Comment on above: Performed By: #### L 506.1001, L500.4050, L501.9520, L501.9985, L100.0100 #### [facility] [address] [place], [address] Platelet mean volume (Bld) [Entitic vol] 10.1 fL Normal 6.2-12.0 [facility] Comment on above: Performed By: #### L 506.1001, L500.4050, L501.9520, L501.9985, L100.0100 #### [facility] [address] [place], [address] Platelets (Bld) [#/Vol] 196 10*3/uL Normal 150-450 [facility] Comment on above: Performed By: #### L 506.1001, L500.4050, L501.9520, L501.9985, L100.0100 #### [facility] [address] [place], [address] RBC (Bld) [#/Vol] 3.90 10*6/uL Low 4.6-6.2 [facility] Comment on above: Performed By: #### L 506.1001, L500.4050, L501.9520, L501.9985, L100.0100 #### [facility] [address] [place], [address] RDW SD 42.7 fl Normal 35.1-43.9 [facility] Comment on above: Performed By: #### L 506.1001, L500.4050, L501.9520, L501.9985, L100.0100 #### [facility] [address] [place], [address] WBC (Bld) [#/Vol] 3.9 10*3/uL Low 4.4-11.0 [facility] Comment on above: Performed By: #### L 506.1001, L500.4050, L501.9520, L501.9985, L100.0100 #### [facility] [address] [place], [address] Carbon dioxide, total [Moles /volume] in Central venous bloodOrdered By: Taylor Fast on 12-18-2024 CO2 [Moles/Vol] 25.8 mmol/L 21.0-32.0 [facility] Chloride assayOrdered By: De bra Fast on 12-18-2024 Chloride [Moles/Vol] 100 mmol/L 98-108 [facility] Comprehensive Metabolic Prof ilon 12-18-2024 Albumin [Mass/Vol] 4.0 g/dL Normal 3.4-4.8 [facility] Comment on above: Performed By: #### L 506.1001, L500.4050, L501.9520, L501.9985, L100.0100 #### [facility] [address] [place], [address] Albumin/Globulin [Mass ratio] 1.5 {ratio} Normal 0.9-2.4 [facility] Comment on above: Performed By: #### L 506.1001, L500.4050, L501.9520, L501.9985, L100.0100 #### [facility] [address] [place], [address] ALK PHOS 70 U/L Normal 40-129 [facility] Comment on above: Performed By: #### L 506.1001, L500.4050, L501.9520, L501.9985, L100.0100 #### [facility] [address] [place], [address] ALT [Catalytic activity/Vol] 14 U/L Normal <=46 [facility] Comment on above: Performed By: #### L 506.1001, L500.4050, L501.9520, L501.9985, L100.0100 #### [facility] [address] [place], [address] AST [Catalytic activity/Vol] 22 U/L Normal <=37 [facility] Comment on above: Performed By: #### L 506.1001, L500.4050, L501.9520, L501.9985, L100.0100 #### [facility] [address] [place], [address] Bilirubin [Mass/Vol] 0.44 mg/dL Normal 0.00-1.30 [facility] Comment on above: Performed By: #### L 506.1001, L500.4050, L501.9520, L501.9985, L100.0100 #### [facility] [address] [place], [address] BUN/CRE 39.5 RATIO High 10-20 [facility] Comment on above: Performed By: #### L 506.1001, L500.4050, L501.9520, L501.9985, L100.0100 #### [facility] [address] [place], [address] Calcium [Mass/Vol] 9.4 mg/dL Normal 7.6-11.0 [facility] Comment on above: Performed By: #### L 506.1001, L500.4050, L501.9520, L501.9985, L100.0100 #### [facility] [address] [place], [address] Chloride [Moles/Vol] 100 mmol/L Normal 98-108 [facility] Comment on above: Performed By: #### L 506.1001, L500.4050, L501.9520, L501.9985, L100.0100 #### [facility] [address] [place], [address] CO2 [Moles/Vol] 25.8 mmol/L Normal 21.0-32.0 [facility] Comment on above: Performed By: #### L 506.1001, L500.4050, L501.9520, L501.9985, L100.0100 #### [facility] [address] [place], [address] Creatinine [Mass/Vol] 0.38 mg/dL Low 0.70-1.20 [facility] Comment on above: Performed By: #### L 506.1001, L500.4050, L501.9520, L501.9985, L100.0100 #### [facility] [address] [place], [address] GAP 10 Normal 5-15 [facility] Comment on above: Performed By: #### L 506.1001, L500.4050, L501.9520, L501.9985, L100.0100 #### [facility] [address] [place], [address] GFR/1.73 sq M.predicted among non-blacks MDRD (S/P/Bld) [Vol rate/Area] 108 mL/min/{1.73_m2} Normal >60 [facility] Comment on above: Result Comment: mL/m in/1.73m2 CKD-EPI Creatinine Equation (2020) Performed By: #### L 506.1001, L500.4050, L501.9520, L501.9985, L100.0100 #### [facility] [address] [place], [address] Globulin (S) [Mass/Vol] 2.6 g/dL Normal 2.2-4.2 [facility] Comment on above: Performed By: #### L 506.1001, L500.4050, L501.9520, L501.9985, L100.0100 #### [facility] [address] [place], [address] Glucose [Mass/Vol] 91 mg/dL Normal 70-99 [facility] Comment on above: Performed By: #### L 506.1001, L500.4050, L501.9520, L501.9985, L100.0100 #### [facility] [address] [place], [address] Potassium [Moles/Vol] 4.3 mmol/L Normal 3.3-5.1 [facility] Comment on above: Performed By: #### L 506.1001, L500.4050, L501.9520, L501.9985, L100.0100 #### [facility] [address] [place], [address] Sodium [Moles/Vol] 135 mmol/L Normal 133-145 [facility] Comment on above: Performed By: #### L 506.1001, L500.4050, L501.9520, L501.9985, L100.0100 #### [facility] [address] [place], [address] T PROT 6.5 g/dL Normal 5.9-8.4 [facility] Comment on above: Performed By: #### L 506.1001, L500.4050, L501.9520, L501.9985, L100.0100 #### [facility] [address] [place], [address] Urea nitrogen [Mass/Vol] 15 mg/dL Normal 4-19 [facility] Comment on above: Performed By: #### L 506.1001, L500.4050, L501.9520, L501.9985, L100.0100 #### [facility] [address] [place], [address] Eosinophil percentageOrdered By: Taylor Fast on 12-18-2024 Eosinophils/100 WBC (Bld) 4.1 % 0-5 [facility] Erythrocyte distribution wid th ratioOrdered By: Taylor Fast on 12-18-2024 Erythrocyte distribution width (RBC) [Ratio] 12.3 % 11.6-14.6 [facility] Erythrocyte distribution wid th standard deviationOrdered By: Taylor Fast on 12-18-2024 Erythrocyte distribution width (RBC) [Ratio] 42.7 fl 35.1-43.9 [facility] Glomerular filtration rate ( GFR) estimation/1.73 sq m using serum, plasma, or whole bOrdered By: on 12-18-2024 GFR/1.73 sq M.predicted among non-blacks MDRD (S/P/Bld) [Vol rate/Area] 108 mL/min/{1.73_m2} >60 [facility] Comment on above: mL/min/1.73m2 CKD-EP I Creatinine Equation (2020) Hematocrit Auto (Bld) [Volum e fraction]Ordered By: Taylor on 12-18-2024 Hematocrit (Bld) [Volume fraction] 36.7 % Low 40-54 [facility] Hemoglobin A1con 12-18-2024 HbA1c (Bld) [Mass fraction] 5.2 % Normal <=5.6 [facility] Comment on above: Result Comment: Norm al < 5.7 % Prediabetic 5.7 - 6.4 % Diabetic >or= 6.5 % Please note range changes. Performed By: #### L 506.1001, L500.4050, L501.9520, L501.9985, L100.0100 #### [facility] [place], [address] Hemoglobin A1c percentageOrd ered By: on 12-18-2024 HbA1c (Bld) [Mass fraction] 5.2 % <5.7 [facility] Comment on above: Normal < 5.7 % Predi abetic 5.7 - 6.4 % Diabetic >or= 6.5 % Please note range changes. Hemoglobin measurementOrdere d By: on 12-18-2024 Hemoglobin (Bld) [Mass/Vol] 12.4 g/dL Low 13.0-16.5 [facility] Immature granulocytes/100 WB C Auto (Bld)Ordered By: Taylor on 12-18-2024 Immature granulocytes/100 WBC (Bld) 0.300 % 0.0-0.9 [facility] Comment on above: IG% - Immature Granu locytes (promyelocytes, myelocytes and metamyelocytes) > 1% indicates that a LEFT SHIFT is Present. Laboratory - Chemistry and C hemistry - challengeOrdered By: on 12-18-2024 AST [Catalytic activity/Vol] 22 U/L <38 [facility] MCV (mean corpuscular volume ) determinationOrdered By: on 12-18-2024 MCV (RBC) [Entitic vol] 94.1 fL High 80-94 [facility] Mean corpuscular hemoglobin (MCH) determinationOrdered By: on 12-18-2024 MCH (RBC) [Entitic mass] 31.8 pg 27.0-32.0 [facility] Mean corpuscular hemoglobin concentration (MCHC) determinationOrdered By: 12-18-2024 MCHC (RBC) [Mass/Vol] 33.8 g/dL 32-36 [facility] Mean platelet volume determi nationOrdered By: on 12-18-2024 Platelet mean volume (Bld) [Entitic vol] 10.1 fL 6.2-12.0 [facility] Monocyte percentageOrdered B y: on 12-18-2024 Monocytes/100 WBC (Bld) 16.5 % High 0-10 [facility] Neutrophil percentageOrdered By: on 12-18-2024 Neutrophils/100 WBC (Bld) 36.2 % Low 47-70 [facility] Nucleated red blood cell per centageOrdered By: on 12-18-2024 Nucleated RBC/100 WBC (Bld) [Ratio] 0 % 0-5 [facility] Platelet countOrdered By: De armando on 12-18-2024 Platelets (Bld) [#/Vol] 196 10*3/uL 150-450 [facility] Potassium measurement (mass/ volume)Ordered By: on 12-18-2024 Potassium (Unsp spec) [Mass/Vol] 4.3 mmol/L 3.3-5.1 [facility] RBC Auto (Bld) [#/Vol]Ordere d By: on 12-18-2024 RBC (Bld) [#/Vol] 3.90 10*6/uL Low 4.6-6.2 [facility] Serum creatinine measurement (mass/volume)Ordered By: Taylor on 12-18-2024 Creatinine [Mass/Vol] 0.38 mg/dL Low 0.70-1.20 [facility] Serum globulin measurementOr dered By: Taylor Fast on 12-18-2024 Globulin (S) [Mass/Vol] 2.6 g/dL 2.2-4.2 [facility] Serum glucose measurement (m ass/volume)Ordered By: Taylor on 12-18-2024 Glucose [Mass/Vol] 91 mg/dL 70-99 [facility] Serum or plasma alanine kumar otransferase (ALT) measurementOrdered By: on 12-18-2024 ALT [Catalytic activity/Vol] 14 U/L <47 [facility] Serum or plasma albumin marialuisa urement (mass/volume)Ordered By: Taylor on 12-18-2024 Albumin [Mass/Vol] 4.0 g/dL 3.4-4.8 [facility] Serum or plasma albumin/glob ulin mass ratioOrdered By: Taylor on 12-18-2024 Albumin/Globulin [Mass ratio] 1.5 {ratio} 0.9-2.4 [facility] Serum or plasma alkaline gilberto sphatase measurementOrdered By: on 12-18-2024 ALP [Catalytic activity/Vol] 70 U/L 40-129 [facility] Serum or plasma calcium marialuisa urement (mass/volume)Ordered By: Taylor on 12-18-2024 Calcium [Mass/Vol] 9.4 mg/dL 7.6-11.0 [facility] Serum or plasma urea nitroge n measurement (mass/volume)Ordered By: Taylor on 12-18-2024 Urea nitrogen [Mass/Vol] 15 mg/dL 4-19 [facility] Sodium levelOrdered By: a Fast on 12-18-2024 Sodium [Moles/Vol] 135 mmol/L 133-145 [facility] TSH DL <= 0.005 mIU/L QnOrde red By: Taylor Fast on 12-18-2024 TSH Qn 3.470 uIU/mL 0.300-4.20 0 [facility] Thyroid Stim Hormone (TSH)on 12-18-2024 TSH 3.470 uIU/mL Normal 0.300-4.20 0 [facility] Comment on above: Performed By: #### L 506.1001, L500.4050, L501.9520, L501.9985, L100.0100 #### [facility] [address], [place], [id number] Total proteinOrdered By: Lyla ra Fast on 12-18-2024 Protein [Mass/Vol] 6.5 g/dL 5.9-8.4 [facility] Vitamin D,25 Hydroxyon 12-18 Vitamin D 25-OH 51.4 ng/mL Normal 30-100 [facility] Comment on above: Result Comment: Christen min D Status Deficiency: <20 ng/mL (50nmol/L) Insufficiency: 20-30 ng/mL (50-75 nmol/L) Sufficiency: 30-100 ng/mL (75-250 nmol/L) Toxicity: >100 ng/mL (>250 nmol/L) Performed By: #### L 506.1001, L500.4050, L501.9520, L501.9985, L100.0100 #### [facility] [address] [place], [place], [address] White blood cell (WBC) count Ordered By: on 12-18-2024 WBC (Bld) [#/Vol] 3.9 10*3/uL Low 4.4-11.0 [facility] Absolute lymphocyte countOrd ered By: on 09-16-2024 Lymphocytes Auto (Unsp spec) [#/Vol] 1.50 10*3/uL 0.83-4.51 [facility] Absolute neutrophil countOrd ered By: on 09-16-2024 Neutrophils (Bld) [#/Vol] 2.9 10*3/uL 2.0-7.7 [facility] Anion gap in Serum or Plasma Ordered By: on 09-16-2024 Anion gap [Moles/Vol] 8 mmol/L 5-15 [facility] Automated lymphocyte count a s percentage of total leukocytesOrdered By: Taylor Fast on 09-16-2024 Lymphocytes/100 WBC Auto (Unsp spec) 28.6 % 19-41 [facility] BUN/creatinine ratioOrdered By: Taylor Fast on 09-16-2024 Urea nitrogen/Creatinine [Mass ratio] 42.9 mg/mg High 10-20 [facility] Basophil percentageOrdered B y: Taylor Fast on 09-16-2024 Basophils/100 WBC (Bld) 0.4 % 0-1 [facility] Bilirubin, totalOrdered By: Taylor Fast on 09-16-2024 Bilirubin [Mass/Vol] 0.45 mg/dL 0.00-1.30 [facility] CBC W/Diff, Automatedon 09-04 Absolute Lymph 1.50 X10 3/uL Normal 0.83-4.51 [facility] Comment on above: Performed By: #### L 100.0100, L500.2500 #### [facility] [address] [place], [address] Absolute Neut 2.9 X10 3/uL Normal 2.0-7.7 [facility] Comment on above: Performed By: #### L 100.0100, L500.2500 #### [facility] [address] [place], [address] Basophils/100 WBC (Bld) 0.4 % Normal 0-1 [facility] Comment on above: Performed By: #### L 100.0100, L500.2500 #### [facility] [address] [place], [address] Eosinophils/100 WBC (Bld) 3.6 % Normal 0-5 [facility] Comment on above: Performed By: #### L 100.0100, L500.2500 #### [facility] [address] [place], [address] Erythrocyte distribution width (RBC) [Ratio] 12.8 % Normal 11.6-14.6 [facility] Comment on above: Performed By: #### L 100.0100, L500.2500 #### [facility] [address] [place], [address] Hematocrit (Bld) [Volume fraction] 37.0 % Low 40-54 [facility] Comment on above: Performed By: #### L 100.0100, L500.2500 #### [facility] [address] [place], [address] Hemoglobin (Bld) [Mass/Vol] 12.6 g/dL Low 13.0-16.5 [facility] Comment on above: Performed By: #### L 100.0100, L500.2500 #### [facility] [address] [place], [address] IG% 0.200 Normal 0.0-0.9 [facility] Comment on above: Result Comment: IG% - Immature Granulocytes (promyelocytes, myelocytes and metamyelocytes) > 1% indicates that a LEFT SHIFT is Present. Performed By: #### L 100.0100, L500.2500 #### [facility] [address] [place], [address] Lymphocytes/100 WBC (Bld) 28.6 % Normal 19-41 [facility] Comment on above: Performed By: #### L 100.0100, L500.2500 #### [facility] [address] [place], [address] MCH (RBC) [Entitic mass] 32.2 pg High 27.0-32.0 [facility] Comment on above: Performed By: #### L 100.0100, L500.2500 #### [facility] [address] [place], [address] MCHC (RBC) [Mass/Vol] 34.1 g/dL Normal 32-36 [facility] Comment on above: Performed By: #### L 100.0100, L500.2500 #### [facility] [address] [place], [address] MCV (RBC) [Entitic vol] 94.6 fL High 80-94 [facility] Comment on above: Performed By: #### L 100.0100, L500.2500 #### [facility] [address] [place], [address] Monocytes/100 WBC (Bld) 11.6 % High 0-10 [facility] Comment on above: Performed By: #### L 100.0100, L500.2500 #### [facility] [address] [place], [address] Neutrophils/100 WBC (Bld) 55.6 % Normal 47-70 [facility] Comment on above: Performed By: #### L 100.0100, L500.2500 #### [facility] [address] [place], [address] Nucleated RBC (Bld) [#/Vol] 0 10*3/uL Normal 0-5 [facility] Comment on above: Performed By: #### L 100.0100, L500.2500 #### [facility] [address] [place], [address] Platelet mean volume (Bld) [Entitic vol] 10.3 fL Normal 6.2-12.0 [facility] Comment on above: Performed By: #### L 100.0100, L500.2500 #### [facility] [address] [place], [address] Platelets (Bld) [#/Vol] 181 10*3/uL Normal 150-450 [facility] Comment on above: Performed By: #### L 100.0100, L500.2500 #### [facility] [address] [place], [address] RBC (Bld) [#/Vol] 3.91 10*6/uL Low 4.6-6.2 [facility] Comment on above: Performed By: #### L 100.0100, L500.2500 #### [facility] [address] [place], [address] RDW SD 44.1 fl High 35.1-43.9 [facility] Comment on above: Performed By: #### L 100.0100, L500.2500 #### [facility] [address] [place], [address] WBC (Bld) [#/Vol] 5.2 10*3/uL Normal 4.4-11.0 [facility] Comment on above: Performed By: #### L 100.0100, L500.2500 #### [facility] [address] [place], [address] Carbon dioxide, total [Moles /volume] in Central venous bloodOrdered By: Taylor Fast on 09-16-2024 CO2 [Moles/Vol] 27.9 mmol/L 21.0-32.0 [facility] Chloride assayOrdered By: De bra Fast on 09-16-2024 Chloride [Moles/Vol] 98 mmol/L 98-108 [facility] Comprehensive Metabolic Prof ilon 09-16-2024 Albumin [Mass/Vol] 4.0 g/dL Normal 3.4-4.8 [facility] Comment on above: Performed By: #### L 100.0100, L500.2500 #### [facility] [address] [place], [address] Albumin/Globulin [Mass ratio] 1.5 {ratio} Normal 0.9-2.4 [facility] Comment on above: Performed By: #### L 100.0100, L500.2500 #### [facility] [address] [place], [address] ALK PHOS 62 U/L Normal 40-129 [facility] Comment on above: Performed By: #### L 100.0100, L500.2500 #### [facility] [address] [place], [address] ALT [Catalytic activity/Vol] 12 U/L Normal <=46 [facility] Comment on above: Performed By: #### L 100.0100, L500.2500 #### [facility] [address] [place], [address] AST [Catalytic activity/Vol] 19 U/L Normal <=37 [facility] Comment on above: Performed By: #### L 100.0100, L500.2500 #### [facility] [address] [place], [address] Bilirubin [Mass/Vol] 0.45 mg/dL Normal 0.00-1.30 [facility] Comment on above: Performed By: #### L 100.0100, L500.2500 #### [facility] [address] [place], [address] BUN/CRE 42.9 RATIO High 10-20 [facility] Comment on above: Performed By: #### L 100.0100, L500.2500 #### [facility] [address] [place], [address] Calcium [Mass/Vol] 9.6 mg/dL Normal 7.6-11.0 [facility] Comment on above: Performed By: #### L 100.0100, L500.2500 #### [facility] [address] [place], [address] Chloride [Moles/Vol] 98 mmol/L Normal 98-108 [facility] Comment on above: Performed By: #### L 100.0100, L500.2500 #### [facility] [address] [place], [address] CO2 [Moles/Vol] 27.9 mmol/L Normal 21.0-32.0 [facility] Comment on above: Performed By: #### L 100.0100, L500.2500 #### [facility] [address] [place], [address] Creatinine [Mass/Vol] 0.37 mg/dL Low 0.70-1.20 [facility] Comment on above: Performed By: #### L 100.0100, L500.2500 #### [facility] [address] [place], [address] GAP 8 Normal 5-15 [facility] Comment on above: Performed By: #### L 100.0100, L500.2500 #### [facility] [address] [place], [address] GFR/1.73 sq M.predicted among non-blacks MDRD (S/P/Bld) [Vol rate/Area] 109 mL/min/{1.73_m2} Normal >60 [facility] Comment on above: Result Comment: mL/m in/1.73m2 CKD-EPI Creatinine Equation (2020) Performed By: #### L 100.0100, L500.2500 #### [facility] [address] [place], [address] Globulin (S) [Mass/Vol] 2.7 g/dL Normal 2.2-4.2 [facility] Comment on above: Performed By: #### L 100.0100, L500.2500 #### [facility] [address] [place], [address] Glucose [Mass/Vol] 91 mg/dL Normal 70-99 [facility] Comment on above: Performed By: #### L 100.0100, L500.2500 #### [facility] [address] [place], [address] Potassium [Moles/Vol] 4.5 mmol/L Normal 3.3-5.1 [facility] Comment on above: Performed By: #### L 100.0100, L500.2500 #### [facility] [address] [place], [address] Sodium [Moles/Vol] 134 mmol/L Normal 133-145 [facility] Comment on above: Performed By: #### L 100.0100, L500.2500 #### [facility] [address] [place], [address] T PROT 6.7 g/dL Normal 5.9-8.4 [facility] Comment on above: Performed By: #### L 100.0100, L500.2500 #### [facility] [address] [place], [address] Urea nitrogen [Mass/Vol] 16 mg/dL Normal 4-19 [facility] Comment on above: Performed By: #### L 100.0100, L500.2500 #### [facility] [address] [place], [address] Eosinophil percentageOrdered By: Taylor Fast on 09-16-2024 Eosinophils/100 WBC (Bld) 3.6 % 0-5 [facility] Erythrocyte distribution wid th ratioOrdered By: Taylor Fast on 09-16-2024 Erythrocyte distribution width (RBC) [Ratio] 12.8 % 11.6-14.6 [facility] Erythrocyte distribution wid th standard deviationOrdered By: Taylor Fast on 09-16-2024 Erythrocyte distribution width (RBC) [Ratio] 44.1 fl High 35.1-43.9 [facility] Glomerular filtration rate ( GFR) estimation/1.73 sq m using serum, plasma, or whole bOrdered By: Taylor Fast on 09-16-2024 GFR/1.73 sq M.predicted among non-blacks MDRD (S/P/Bld) [Vol rate/Area] 109 mL/min/{1.73_m2} >60 [facility] Comment on above: mL/min/1.73m2 CKD-EP I Creatinine Equation (2020) Hematocrit Auto (Bld) [Volum e fraction]Ordered By: Taylor Fast on 09-16-2024 Hematocrit (Bld) [Volume fraction] 37.0 % Low 40-54 [facility] Hemoglobin A1con 09-16-2024 HbA1c (Bld) [Mass fraction] 5.1 % Normal <=5.6 [facility] Comment on above: Result Comment: Norm al < 5.7 % Prediabetic 5.7 - 6.4 % Diabetic >or= 6.5 % Please note range changes. Performed By: #### L 506.1001, L500.4050, L501.9520, L501.9985, L100.0100 #### [facility] [address] [place], [address] Hemoglobin A1c percentageOrd ered By: Taylor on 09-16-2024 HbA1c (Bld) [Mass fraction] 5.1 % <5.7 [facility] Comment on above: Normal < 5.7 % Predi abetic 5.7 - 6.4 % Diabetic >or= 6.5 % Please note range changes. Hemoglobin measurementOrdere d By: Taylor Fast on 09-16-2024 Hemoglobin (Bld) [Mass/Vol] 12.6 g/dL Low 13.0-16.5 [facility] Immature granulocytes/100 WB C Auto (Bld)Ordered By: Taylor Fast on 09-16-2024 Immature granulocytes/100 WBC (Bld) 0.200 % 0.0-0.9 [facility] Comment on above: IG% - Immature Granu locytes (promyelocytes, myelocytes and metamyelocytes) > 1% indicates that a LEFT SHIFT is Present. Laboratory - Chemistry and C hemistry - challengeOrdered By: Taylor Fast on 09-16-2024 AST [Catalytic activity/Vol] 19 U/L <38 [facility] MCV (mean corpuscular volume ) determinationOrdered By: Taylor Fast on 09-16-2024 MCV (RBC) [Entitic vol] 94.6 fL High 80-94 [facility] Mean corpuscular hemoglobin (MCH) determinationOrdered By: Taylor Fast on 09-16-2024 MCH (RBC) [Entitic mass] 32.2 pg High 27.0-32.0 [facility] Mean corpuscular hemoglobin concentration (MCHC) determinationOrdered By: Taylor Fast on 09-16-2024 MCHC (RBC) [Mass/Vol] 34.1 g/dL 32-36 [facility] Mean platelet volume determi nationOrdered By: Taylor Fast on 09-16-2024 Platelet mean volume (Bld) [Entitic vol] 10.3 fL 6.2-12.0 [facility] Monocyte percentageOrdered B y: Taylor on 09-16-2024 Monocytes/100 WBC (Bld) 11.6 % High 0-10 [facility] Neutrophil percentageOrdered By: Taylor Fast on 09-16-2024 Neutrophils/100 WBC (Bld) 55.6 % 47-70 [facility] Nucleated red blood cell per centageOrdered By: on 09-16-2024 Nucleated RBC/100 WBC (Bld) [Ratio] 0 % 0-5 [facility] Platelet countOrdered By: armando on 09-16-2024 Platelets (Bld) [#/Vol] 181 10*3/uL 150-450 [facility] Potassium measurement (mass/ volume)Ordered By: on 09-16-2024 Potassium (Unsp spec) [Mass/Vol] 4.5 mmol/L 3.3-5.1 [facility] RBC Auto (Bld) [#/Vol]Ordere d By: on 09-16-2024 RBC (Bld) [#/Vol] 3.91 10*6/uL Low 4.6-6.2 [facility] Serum creatinine measurement (mass/volume)Ordered By: on 09-16-2024 Creatinine [Mass/Vol] 0.37 mg/dL Low 0.70-1.20 [facility] Serum globulin measurementOr dered By: 09-16-2024 Globulin (S) [Mass/Vol] 2.7 g/dL 2.2-4.2 [facility] Serum glucose measurement (m ass/volume)Ordered By: 09-16-2024 Glucose [Mass/Vol] 91 mg/dL 70-99 [facility] Serum or plasma alanine kumar otransferase (ALT) measurementOrdered By: 09-16-2024 ALT [Catalytic activity/Vol] 12 U/L <47 [facility] Serum or plasma albumin marialuisa urement (mass/volume)Ordered By: Taylor Fast on 09-16-2024 Albumin [Mass/Vol] 4.0 g/dL 3.4-4.8 [facility] Serum or plasma albumin/glob ulin mass ratioOrdered By: Taylor on 09-16-2024 Albumin/Globulin [Mass ratio] 1.5 {ratio} 0.9-2.4 [facility] Serum or plasma alkaline gilberto sphatase measurementOrdered By: Taylor Fast on 09-16-2024 ALP [Catalytic activity/Vol] 62 U/L 40-129 [facility] Serum or plasma calcium marialuisa urement (mass/volume)Ordered By: Taylor Fast on 09-16-2024 Calcium [Mass/Vol] 9.6 mg/dL 7.6-11.0 [facility] Serum or plasma urea nitroge n measurement (mass/volume)Ordered By: Taylor Fast on 09-16-2024 Urea nitrogen [Mass/Vol] 16 mg/dL 4-19 [facility] Sodium levelOrdered By: a Fast on 09-16-2024 Sodium [Moles/Vol] 134 mmol/L 133-145 [facility] TSH DL <= 0.005 mIU/L QnOrde red By: Taylor Fast on 09-16-2024 TSH Qn 4.040 uIU/mL 0.300-4.20 0 [facility] Thyroid Stim Hormone (TSH)on 09-16-2024 TSH 4.040 uIU/mL Normal 0.300-4.20 0 [facility] Comment on above: Performed By: #### L 506.1001, L500.4050, L501.9520, L501.9985, L100.0100 #### [facility] [address] [place], [address] Total proteinOrdered By: Lyla ra Fast on 09-16-2024 Protein [Mass/Vol] 6.7 g/dL 5.9-8.4 [facility] Vitamin D,25 Hydroxyon 09-16 Vitamin D 25-OH 52.3 ng/mL Normal 30-100 [facility] Comment on above: Result Comment: Christen min D Status Deficiency: <20 ng/mL (50nmol/L) Insufficiency: 20-30 ng/mL (50-75 nmol/L) Sufficiency: 30-100 ng/mL (75-250 nmol/L) Toxicity: >100 ng/mL (>250 nmol/L) Performed By: #### L 506.1001, L500.4050, L501.9520, L501.9985, L100.0100 #### [facility] [address] [place], [address] White blood cell (WBC) count Ordered By: Taylor on 09-16-2024 WBC (Bld) [#/Vol] 5.2 10*3/uL 4.4-11.0 [facility] Absolute lymphocyte countOrd ered By: Taylor Fast on 06-19-2024 Lymphocytes Auto (Unsp spec) [#/Vol] 1.41 10*3/uL 0.83-4.51 [facility] Absolute neutrophil countOrd ered By: Taylor Fast on 06-19-2024 Neutrophils (Bld) [#/Vol] 1.6 10*3/uL Low 2.0-7.7 [facility] Albumin to globulin ratioOrd ered By: Taylor Fast on 06-19-2024 Albumin/Globulin [Mass ratio] 1.1 {ratio} 0.9-2.4 [facility] Automated lymphocyte count a s percentage of total leukocytesOrdered By: Taylor Fast on 06-19-2024 Lymphocytes/100 WBC Auto (Unsp spec) 36.2 % 19-41 [facility] Basophil percentageOrdered B y: Taylor Fast on 06-19-2024 Basophils/100 WBC (Bld) 0.5 % 0-1 [facility] Bilirubin, totalOrdered By: Taylor Fast on 06-19-2024 Bilirubin [Mass/Vol] 0.70 mg/dL 0.20-1.00 [facility] Comment on above: For patients on eltr ombopag therapy, use of Dimension [place] TBIL is not recommended. Blood urea nitrogen (BUN)/cr eatinine ratioOrdered By: Taylor Zuniga on 06-19-2024 Urea nitrogen/Creatinine [Mass ratio] 41.3 mg/mg High 10-20 [facility] CBC W/Diff, Automatedon 06-07 Absolute Lymph 1.41 X10 3/uL Normal 0.83-4.51 [facility] Comment on above: Performed By: #### L 100.0100, L500.2500 #### [facility] [address] [place], [address] Absolute Neut 1.6 X10 3/uL Low 2.0-7.7 [facility] Comment on above: Performed By: #### L 100.0100, L500.2500 #### [facility] [address] [place], [address] Basophils/100 WBC (Bld) 0.5 % Normal 0-1 [facility] Comment on above: Performed By: #### L 100.0100, L500.2500 #### [facility] [address] [place], [address] Eosinophils/100 WBC (Bld) 5.9 % High 0-5 [facility] Comment on above: Performed By: #### L 100.0100, L500.2500 #### [facility] [address] [place], [address] Erythrocyte distribution width (RBC) [Ratio] 13.0 % Normal 11.6-14.6 [facility] Comment on above: Performed By: #### L 100.0100, L500.2500 #### [facility] [address] [place], [address] Hematocrit (Bld) [Volume fraction] 35.6 % Low 40-54 [facility] Comment on above: Performed By: #### L 100.0100, L500.2500 #### [facility] [address] [place], [address] Hemoglobin (Bld) [Mass/Vol] 12.1 g/dL Low 13.0-16.5 [facility] Comment on above: Performed By: #### L 100.0100, L500.2500 #### [facility] [address] [place], [address] IG% 0.300 Normal 0.0-0.9 [facility] Comment on above: Result Comment: IG% - Immature Granulocytes (promyelocytes, myelocytes and metamyelocytes) > 1% indicates that a LEFT SHIFT is Present. Performed By: #### L 100.0100, L500.2500 #### [facility] [address] [place], [address] Lymphocytes/100 WBC (Bld) 36.2 % Normal 19-41 [facility] Comment on above: Performed By: #### L 100.0100, L500.2500 #### [facility] [address] [place], [address] MCH (RBC) [Entitic mass] 31.2 pg Normal 27.0-32.0 [facility] Comment on above: Performed By: #### L 100.0100, L500.2500 #### [facility] [address] [place], [address] MCHC (RBC) [Mass/Vol] 34.0 g/dL Normal 32-36 [facility] Comment on above: Performed By: #### L 100.0100, L500.2500 #### [facility] [address] [place], [address] MCV (RBC) [Entitic vol] 91.8 fL Normal 80-94 [facility] Comment on above: Performed By: #### L 100.0100, L500.2500 #### [facility] [address] [place], [address] Monocytes/100 WBC (Bld) 15.6 % High 0-10 [facility] Comment on above: Performed By: #### L 100.0100, L500.2500 #### [facility] [address] [place], [address] Neutrophils/100 WBC (Bld) 41.5 % Low 47-70 [facility] Comment on above: Performed By: #### L 100.0100, L500.2500 #### [facility] [address] [place], [place], [id number] Nucleated RBC (Bld) [#/Vol] 0 10*3/uL Normal 0-5 [facility] Comment on above: Performed By: #### L 100.0100, L500.2500 #### [facility] [address] [place], [address] Platelet mean volume (Bld) [Entitic vol] 10.3 fL Normal 6.2-12.0 [facility] Comment on above: Performed By: #### L 100.0100, L500.2500 #### [facility] [address] [place], [address] Platelets (Bld) [#/Vol] 176 10*3/uL Normal 150-450 [facility] Comment on above: Performed By: #### L 100.0100, L500.2500 #### [facility] [address] [place], [address] RBC (Bld) [#/Vol] 3.88 10*6/uL Low 4.6-6.2 [facility] Comment on above: Performed By: #### L 100.0100, L500.2500 #### [facility] [address] [place], [address] RDW SD 43.3 fl Normal 35.1-43.9 [facility] Comment on above: Performed By: #### L 100.0100, L500.2500 #### [facility] [address] [place], [address] WBC (Bld) [#/Vol] 3.9 10*3/uL Low 4.4-11.0 [facility] Comment on above: Performed By: #### L 100.0100, L500.2500 #### [facility] [address] [place], [address] Carbon dioxide measurementOr dered By: Taylor Fast on 06-19-2024 CO2 [Moles/Vol] 29.0 mmol/L 21.0-32.0 [facility] Chloride measurementOrdered By: Taylor Fast on 06-19-2024 Chloride [Moles/Vol] 100 mmol/L 98-107 [facility] Comprehensive Metabolic Prof ilon 06-19-2024 Albumin [Mass/Vol] 3.5 g/dL Normal 3.2-5.0 [facility] Comment on above: Performed By: #### L 100.0100, L500.2500 #### [facility] [address] [facility], [address] Albumin/Globulin [Mass ratio] 1.1 {ratio} Normal 0.9-2.4 [facility] Comment on above: Performed By: #### L 100.0100, L500.2500 #### [facility] [address] [place], [address] ALK P 57 U/L Normal 45-117 [facility] Comment on above: Performed By: #### L 100.0100, L500.2500 #### [facility] [address] [place], [address] ALT [Catalytic activity/Vol] 18 U/L Normal 16-61 [facility] Comment on above: Performed By: #### L 100.0100, L500.2500 #### [facility] [address] [place], [address] AST [Catalytic activity/Vol] 17 U/L Normal 15-37 [facility] Comment on above: Performed By: #### L 100.0100, L500.2500 #### [facility] [address] [place], [address] Bilirubin [Mass/Vol] 0.70 mg/dL Normal 0.20-1.00 [facility] Comment on above: Result Comment: For patients on eltrombopag therapy, use of Dimension [place] TBIL is not recommended. Performed By: #### L 100.0100, L500.2500 #### [facility] [address] [place], [address] BUN/CRE 41.3 RATIO High 10-20 [facility] Comment on above: Performed By: #### L 100.0100, L500.2500 #### [facility] [address] [place], [address] CA,Total 9.1 mg/dL Normal 8.5-10.1 [facility] Comment on above: Performed By: #### L 100.0100, L500.2500 #### [facility] [address] [place], [address] Chloride [Moles/Vol] 100 mmol/L Normal 98-107 [facility] Comment on above: Performed By: #### L 100.0100, L500.2500 #### [facility] [address] [place], [address] CO2 [Moles/Vol] 29.0 mmol/L Normal 21.0-32.0 [facility] Comment on above: Performed By: #### L 100.0100, L500.2500 #### [facility] [address] [place], [address] Creatinine [Mass/Vol] 0.39 mg/dL Low 0.70-1.30 [facility] Comment on above: Result Comment: The validity of the calculated GFR GFRAA in patients over 70 years has not been determined. Clinical correlation is essential. Performed By: #### L 100.0100, L500.2500 #### [facility] [address] [place], [address] EST GFR - AA 273 mL/min Normal >60 [facility] Comment on above: Result Comment: Afri can [place] GFR Calc Performed By: #### L 100.0100, L500.2500 #### [facility] [address] [place], [address] GAP 4 Low 5-15 [facility] Comment on above: Performed By: #### L 100.0100, L500.2500 #### [facility] [address] [place], [address] GFR/1.73 sq M.predicted among non-blacks MDRD (S/P/Bld) [Vol rate/Area] 225 mL/min/{1.73_m2} Normal >60 [facility] Comment on above: Result Comment: Non- GFR Calc Performed By: #### L 100.0100, L500.2500 #### [facility] [address] [place], [address] Globulin (S) [Mass/Vol] 3.3 g/dL Normal 2.2-4.2 [facility] Comment on above: Performed By: #### L 100.0100, L500.2500 #### [facility] [address] [place], [address] Glucose [Mass/Vol] 90 mg/dL Normal 74-106 [facility] Comment on above: Performed By: #### L 100.0100, L500.2500 #### [facility] [address] [place], [address] Potassium [Moles/Vol] 4.6 mmol/L Normal 3.5-5.1 [facility] Comment on above: Performed By: #### L 100.0100, L500.2500 #### [facility] [address] [place], [address] Sodium [Moles/Vol] 133 mmol/L Low 136-145 [facility] Comment on above: Performed By: #### L 100.0100, L500.2500 #### [facility] [address] [place], [address] T PROT 6.8 g/dL Normal 6.4-8.2 [facility] Comment on above: Performed By: #### L 100.0100, L500.2500 #### [facility] [address] [place], [address] Urea nitrogen [Mass/Vol] 16 mg/dL Normal 7-18 [facility] Comment on above: Performed By: #### L 100.0100, L500.2500 #### [facility] [address] [place], [address] Eosinophil percentageOrdered By: Taylor Fast on 06-19-2024 Eosinophils/100 WBC (Bld) 5.9 % High 0-5 [facility] Erythrocyte distribution wid th ratioOrdered By: [facility] Fast on 06-19-2024 Erythrocyte distribution width (RBC) [Ratio] 13.0 % 11.6-14.6 [facility] Erythrocyte distribution wid th standard deviationOrdered By: Taylor Fast on 06-19-2024 Erythrocyte distribution width (RBC) [Ratio] 43.3 fl 35.1-43.9 [facility] Glomerular filtration rate ( GFR) estimationOrdered By: Taylor Fast on 06-19-2024 GFR/1.73 sq M.predicted among non-blacks MDRD (S/P/Bld) [Vol rate/Area] 225 mL/min/{1.73_m2} >60 [facility] Comment on above: Non- GFR Calc Glucose measurementOrdered B y: Taylor Fast on 06-19-2024 Glucose [Mass/Vol] 90 mg/dL 74-106 [facility] Hematocrit Auto (Bld) [Volum e fraction]Ordered By: Taylor Fast on 06-19-2024 Hematocrit (Bld) [Volume fraction] 35.6 % Low 40-54 [facility] Hemoglobin A1con 06-19-2024 HbA1c (Bld) [Mass fraction] 5.2 % Normal 3.8-5.6 [facility] Comment on above: Result Comment: Norm al < 5.7 % Prediabetic 5.7 - 6.4 % Diabetic >or= 6.5 % Please note range changes. Performed By: #### L 100.0100, L500.2500 #### [facility] [address] [place], [address] Hemoglobin A1c percentageOrd ered By: Taylor on 06-19-2024 HbA1c (Bld) [Mass fraction] 5.2 % 3.8-5.6 [facility] Comment on above: Normal < 5.7 % Predi abetic 5.7 - 6.4 % Diabetic >or= 6.5 % Please note range changes. Hemoglobin measurementOrdere d By: Taylor Fast on 06-19-2024 Hemoglobin (Bld) [Mass/Vol] 12.1 g/dL Low 13.0-16.5 [facility] Immature granulocytes/100 WB C Auto (Bld)Ordered By: Taylor Fast on 06-19-2024 Immature granulocytes/100 WBC (Bld) 0.300 % 0.0-0.9 [facility] Comment on above: IG% - Immature Granu locytes (promyelocytes, myelocytes and metamyelocytes) > 1% indicates that a LEFT SHIFT is Present. Laboratory - Chemistry and C hemistry - challengeOrdered By: Taylor on 06-19-2024 AST [Catalytic activity/Vol] 17 U/L 15-37 [facility] MCV (mean corpuscular volume ) determinationOrdered By: Taylor Fast on 06-19-2024 MCV (RBC) [Entitic vol] 91.8 fL 80-94 [facility] Mean corpuscular hemoglobin (MCH) determinationOrdered By: Taylor Fast 06-19-2024 MCH (RBC) [Entitic mass] 31.2 pg 27.0-32.0 [facility] Mean corpuscular hemoglobin concentration (MCHC) determinationOrdered By: Taylor Fast 06-19-2024 MCHC (RBC) [Mass/Vol] 34.0 g/dL 32-36 [facility] Mean platelet volume determi nationOrdered By: Taylor Fast on 06-19-2024 Platelet mean volume (Bld) [Entitic vol] 10.3 fL 6.2-12.0 [facility] Monocyte percentageOrdered B y: Taylor Fast on 06-19-2024 Monocytes/100 WBC (Bld) 15.6 % High 0-10 [facility] Neutrophil percentageOrdered By: Taylor Fast on 06-19-2024 Neutrophils/100 WBC (Bld) 41.5 % Low 47-70 [facility] Nucleated red blood cell per centageOrdered By: Taylor Fast on 06-19-2024 Nucleated RBC/100 WBC (Bld) [Ratio] 0 % 0-5 [facility] Platelet countOrdered By: De bra Fast on 06-19-2024 Platelets (Bld) [#/Vol] 176 10*3/uL 150-450 [facility] Potassium measurementOrdered By: Taylor Fast on 06-19-2024 Potassium [Moles/Vol] 4.6 mmol/L 3.5-5.1 [facility] RBC Auto (Bld) [#/Vol]Ordere d By: Taylor Fast on 06-19-2024 RBC (Bld) [#/Vol] 3.88 10*6/uL Low 4.6-6.2 [facility] Serum anion gap measurementO rdered By: Taylor Fast on 06-19-2024 Anion gap [Moles/Vol] 4 mmol/L Low 5-15 [facility] Serum globulin measurementOr dered By: Taylor Fast on 06-19-2024 Globulin (S) [Mass/Vol] 3.3 g/dL 2.2-4.2 [facility] Serum or plasma alanine kumar otransferase (ALT) measurementOrdered By: Taylor Fast on 06-19-2024 ALT [Catalytic activity/Vol] 18 U/L 16-61 [facility] Serum or plasma albumin marialuisa urement (mass/volume)Ordered By: Taylor Fast on 06-19-2024 Albumin [Mass/Vol] 3.5 g/dL 3.2-5.0 [facility] Serum or plasma alkaline gilberto sphatase measurementOrdered By: Taylor Fast on 06-19-2024 ALP [Catalytic activity/Vol] 57 U/L 45-117 [facility] Serum or plasma calcium marialuisa urement (mass/volume)Ordered By: Taylor Fast on 06-19-2024 Calcium [Mass/Vol] 9.1 mg/dL 8.5-10.1 [facility] Serum or plasma creatinine m easurement (mass/volume)Ordered By: Taylor Fast on 06-19-2024 Creatinine [Mass/Vol] 0.39 mg/dL Low 0.70-1.30 [facility] Comment on above: The validity of the calculated GFR & GFRAA in patients over 70 years has not been determined. Clinical correlation is essential. Serum or plasma thyroid stim ulating hormone (TSH) measurement (units/volume)Ordered By: Taylor on 06-19-2024 TSH Qn 3.230 uIU/mL 0.358-3.74 0 [facility] Serum or plasma urea nitroge n measurement (mass/volume)Ordered By: Taylor on 06-19-2024 Urea nitrogen [Mass/Vol] 16 mg/dL 7-18 [facility] Sodium levelOrdered By: a Fast on 06-19-2024 Sodium [Moles/Vol] 133 mmol/L Low 136-145 [facility] Thyroid Stim Hormone (TSH)on 06-19-2024 TSH 3.230 uIU/mL Normal 0.358-3.74 0 [facility] Comment on above: Performed By: #### L 100.0100, L500.2500 #### [facility] [address] [place] [address], [id number] Total proteinOrdered By: Lyla ra Fast on 06-19-2024 Protein [Mass/Vol] 6.8 g/dL 6.4-8.2 [facility] Vitamin D,25 Hydroxyon 06-19 Vitamin D 25-OH 57.9 ng/mL Normal [facility] Comment on above: Result Comment: Christen min D 25(OH) Status Range Deficiency <20 ng/mL (50nmol/L) Insufficiency 20 - 30 ng/mL (50 - 75 nmol/L) Sufficiency 30 - 100 ng/mL (75 - 250 nmol/L) Toxicity >100 ng/mL (>250 nmol/L) Performed By: #### L 100.0100, L500.2500 #### [facility] [place], [address] White blood cell (WBC) count Ordered By: Taylor Fast on 06-19-2024 WBC (Bld) [#/Vol] 3.9 10*3/uL Low 4.4-11.0 [facility] Absolute lymphocyte countOrd ered By: Taylor Fast on 07-27-2023 Lymphocytes Auto (Unsp spec) [#/Vol] 1.36 10*3/uL 0.83-4.51 [facility] Automated lymphocyte count a s percentage of total leukocytesOrdered By: Taylor Fast on 07-27-2023 Lymphocytes/100 WBC Auto (Unsp spec) 30.2 % 19-41 [facility] Basophil percentageOrdered B y: Taylor Fast on 07-27-2023 Basophils/100 WBC (Bld) 0.9 % 0-1 [facility] Bilirubin [Mass/Vol] 0.50 mg/dL 0.20-1.00 [facility] Comment on above: For patients on eltr ombopag therapy, use of Dimension [place] TBIL is not recommended. Chloride [Moles/Vol] 99 mmol/L 98-107 [facility] Eosinophils/100 WBC (Bld) 6.2 % 0-5 [facility] Glucose [Mass/Vol] 134 mg/dL 74-106 [facility] Comment on above: Fasting Glucose resu lt greater than or equal to 126 mg/dL suggests DIABETES MELLITUS per A.D.A. criteria. Hemoglobin (Bld) [Mass/Vol] 13.5 g/dL 13.0-16.5 [facility] Monocytes/100 WBC (Bld) 14.9 % 0-10 [facility] Neutrophils (Bld) [#/Vol] 2.2 10*3/uL 2.0-7.7 [facility] Neutrophils/100 WBC (Bld) 47.6 % 47-70 [facility] Potassium [Moles/Vol] 4.7 mmol/L 3.5-5.1 [facility] Protein [Mass/Vol] 7.4 g/dL 6.4-8.2 [facility] Sodium [Moles/Vol] 134 mmol/L 136-145 [facility] WBC (Bld) [#/Vol] 4.5 10*3/uL 4.4-11.0 [facility] Determination of erythrocyte mean corpuscular volume (MCV)Ordered By: [facility] on 07-27-2023 MCV (RBC) [Entitic vol] 94.6 fL 80-94 [facility] Erythrocyte distribution wid th ratioOrdered By: [facility] on 07-27-2023 Erythrocyte distribution width (RBC) [Ratio] 12.2 % 11.6-14.6 [facility] Erythrocyte distribution wid th standard deviationOrdered By: [facility] on 07-27-2023 Erythrocyte distribution width (RBC) [Entitic vol] 42.5 fL 35.1-43.9 [facility] Hematocrit Auto (Bld) [Volum e fraction]Ordered By: [facility] on 07-27-2023 Hematocrit (Bld) [Volume fraction] 41.7 % 40-54 [facility] Immature granulocytes/100 WB C Auto (Bld)Ordered By: [facility] on 07-27-2023 Immature granulocytes/100 WBC (Bld) 0.200 % 0.0-0.9 [facility] Comment on above: IG% - Immature Granu locytes (promyelocytes, myelocytes and metamyelocytes) > 1% indicates that a LEFT SHIFT is Present. Laboratory - Chemistry and C hemistry - challengeOrdered By: [facility] on 07-27-2023 Albumin/Globulin [Mass ratio] 0.9 {ratio} 0.9-2.4 [facility] ALP [Catalytic activity/Vol] 64 U/L 45-117 [facility] ALT [Catalytic activity/Vol] 18 U/L 16-61 [facility] CO2 [Moles/Vol] 30.0 mmol/L 21.0-32.0 [facility] Cobalamin (Vitamin B12) [Mass/Vol] 1966 pg/mL 211-911 [facility] Globulin (S) [Mass/Vol] 3.8 g/dL 2.2-4.2 [facility] Urea nitrogen/Creatinine [Mass ratio] 25.6 mg/mg 10-20 [facility] - Hematology and Cell countsOrdered By: Taylor on 07-27-2023 MCH (RBC) [Entitic mass] 30.6 pg 27.0-32.0 [facility] MCHC (RBC) [Mass/Vol] 32.4 g/dL 32-36 [facility] Nucleated RBC/100 WBC (Bld) [Ratio] 0 % 0-5 [facility] Platelet mean volume (Bld) [Entitic vol] 10.1 fL 6.2-12.0 [facility] Platelets (Bld) [#/Vol] 222 10*3/uL 150-450 [facility] No Panel InformationOrdered By: Taylor on 07-27-2023 Estimated GFR (MDRD) Amer 243 mL/min >60 [facility] Comment on above: GFR Calc Estimated GFR (MDRD) Non-Af Amer 201 mL/min >60 [facility] Comment on above: Non- GFR Calc Folate 32.10 ng/mL 3.1-55.4 [facility] Vitamin D 25-Hydroxy 76.3 ng/mL [facility] Comment on above: Vitamin D 25(OH) Sta tus Range Deficiency <20 ng/mL (50nmol/L) Insufficiency 20 - 30 ng/mL (50 - 75 nmol/L) Sufficiency 30 - 100 ng/mL (75 - 250 nmol/L) Toxicity >100 ng/mL (>250 nmol/L) RBC Auto (Bld) [#/Vol]Ordere d By: Taylor on 07-27-2023 RBC (Bld) [#/Vol] 4.41 10*6/uL 4.6-6.2 [facility] Serum or plasma calcium marialuisa urement (mass/volume)Ordered By: Taylor on 07-27-2023 Calcium [Mass/Vol] 9.6 mg/dL 8.5-10.1 [facility] Serum or plasma creatinine m easurement (mass/volume)Ordered By: Taylor on 07-27-2023 Creatinine [Mass/Vol] 0.43 mg/dL 0.70-1.30 [facility] Comment on above: The validity of the calculated GFR & GFRAA in patients over 70 years has not been determined. Clinical correlation is essential. Serum or plasma urea nitroge n measurement (mass/volume)Ordered By: Taylor on 07-27-2023 Urea nitrogen [Mass/Vol] 11 mg/dL 7-18 [facility] Thin prep Papanicolaou smear with manual screeningOrdered By: Taylor on 07-27-2023 Thin prep Papanicolaou smear with manual screening 3.6 g/dL 3.2-5.0 [facility] Thin prep Papanicolaou smear with manual screening 22 U/L 15-37 [facility] Thin prep Papanicolaou smear with manual screening 5 5-15 [facility] Whole blood hemoglobin A1c/t otal hemoglobin ratio (mass fraction)Ordered By: Taylor on 07-27-2023 HbA1c (Bld) [Mass fraction] 5.1 % 3.8-5.6 [facility] Comment on above: Normal < 5.7 % Predi abetic 5.7 - 6.4 % Diabetic >or= 6.5 % Please note range changes. Basophil percentageOrdered B y: Taylor on 04-18-2023 Bilirubin [Mass/Vol] 0.60 mg/dL 0.20-1.00 [facility] Comment on above: For patients on eltr ombopag therapy, use of Dimension [place] TBIL is not recommended. Chloride [Moles/Vol] 103 mmol/L 98-107 [facility] Glucose [Mass/Vol] 94 mg/dL 74-106 [facility] Potassium [Moles/Vol] 4.6 mmol/L 3.5-5.1 [facility] Protein [Mass/Vol] 7.1 g/dL 6.4-8.2 [facility] Sodium [Moles/Vol] 137 mmol/L 136-145 [facility] Laboratory - Chemistry and C hemistry - challengeOrdered By: [facility] on 04-18-2023 ALP [Catalytic activity/Vol] 59 U/L 45-117 [facility] ALT [Catalytic activity/Vol] 18 U/L 16-61 [facility] CO2 [Moles/Vol] 28.0 mmol/L 21.0-32.0 [facility] Globulin (S) [Mass/Vol] 3.4 g/dL 2.2-4.2 [facility] Urea nitrogen/Creatinine [Mass ratio] 38.5 mg/mg 10-20 [facility] No Panel InformationOrdered By: Taylor on 04-18-2023 Estimated GFR (MDRD) Amer 271 mL/min >60 [facility] Comment on above: GFR Calc Estimated GFR (MDRD) Non-Af Amer 224 mL/min >60 [facility] Comment on above: Non- GFR Calc Vitamin D 25-Hydroxy 85.4 ng/mL [facility] Comment on above: Vitamin D 25(OH) Sta tus Range Deficiency <20 ng/mL (50nmol/L) Insufficiency 20 - 30 ng/mL (50 - 75 nmol/L) Sufficiency 30 - 100 ng/mL (75 - 250 nmol/L) Toxicity >100 ng/mL (>250 nmol/L) Serum or plasma albumin marialuisa urement (mass/volume)Ordered By: [facility] on 04-18-2023 Albumin [Mass/Vol] 3.7 g/dL 3.2-5.0 [facility] Serum or plasma albumin/glob ulin mass ratioOrdered By: [facility] on 04-18-2023 Albumin/Globulin [Mass ratio] 1.1 {ratio} 0.9-2.4 [facility] Serum or plasma calcium marialuisa urement (mass/volume)Ordered By: Taylor on 04-18-2023 Calcium [Mass/Vol] 9.2 mg/dL 8.5-10.1 [facility] Serum or plasma creatinine m easurement (mass/volume)Ordered By: Taylor on 04-18-2023 Creatinine [Mass/Vol] 0.39 mg/dL 0.70-1.30 [facility] Comment on above: The validity of the calculated GFR & GFRAA in patients over 70 years has not been determined. Clinical correlation is essential. Serum or plasma urea nitroge n measurement (mass/volume)Ordered By: Taylor on 04-18-2023 Urea nitrogen [Mass/Vol] 15 mg/dL 7-18 [facility] Thin prep Papanicolaou smear with manual screeningOrdered By: [facility] 04-18-2023 Thin prep Papanicolaou smear with manual screening 18 U/L 15-37 [facility] Thin prep Papanicolaou smear with manual screening 6 5-15 [facility] Whole blood hemoglobin A1c/t otal hemoglobin ratio (mass fraction)Ordered By: Talyor Zuniga on 04-18-2023 HbA1c (Bld) [Mass fraction] 5.0 % 3.8-5.6 [facility] Comment on above: Normal < 5.7 % Predi abetic 5.7 - 6.4 % Diabetic >or= 6.5 % Please note range changes. Absolute lymphocyte countOrd ered By: Taylor Efrain on 03-15-2023 Lymphocytes Auto (Unsp spec) [#/Vol] 1.24 10*3/uL 0.83-4.51 [facility] Basophil percentageOrdered B y: [facility] Efrain on 03-15-2023 Basophils/100 WBC (Bld) 0.7 % 0-1 [facility] Bilirubin [Mass/Vol] 0.60 mg/dL 0.20-1.00 [facility] Comment on above: For patients on eltr ombopag therapy, use of Dimension [place] TBIL is not recommended. Chloride [Moles/Vol] 102 mmol/L 98-107 [facility] Eosinophils/100 WBC (Bld) 2.9 % 0-5 [facility] Glucose [Mass/Vol] 115 mg/dL 74-106 [facility] Comment on above: Fasting Glucose resu lt from 100 to 125 mg/dL suggests IMPAIRED HOMEOSTASIS per A.D.A. criteria. Neutrophils (Bld) [#/Vol] 2.3 10*3/uL 2.0-7.7 [facility] Neutrophils/100 WBC (Bld) 54.5 % 47-70 [facility] Potassium [Moles/Vol] 4.4 mmol/L 3.5-5.1 [facility] Protein [Mass/Vol] 7.0 g/dL 6.4-8.2 [facility] Sodium [Moles/Vol] 135 mmol/L 136-145 [facility] WBC (Bld) [#/Vol] 4.2 10*3/uL 4.4-11.0 [facility] Blood erythrocytes count (nu mber/volume)Ordered By: Taylor Efrain on 03-15-2023 RBC (Bld) [#/Vol] 4.33 10*6/uL 4.6-6.2 [facility] Blood hemoglobin measurement (mass/volume)Ordered By: Taylor on 03-15-2023 Hemoglobin (Bld) [Mass/Vol] 13.6 g/dL 13.0-16.5 [facility] Blood lymphocytes/100 leukoc ytesOrdered By: [facility] on 03-15-2023 Lymphocytes/100 WBC (Bld) 29.7 % 19-41 [facility] Blood monocytes/100 leukocyt esOrdered By: Taylor on 03-15-2023 Monocytes/100 WBC (Bld) 11.7 % 0-10 [facility] Blood platelet mean volumeOr dered By: [facility] on 03-15-2023 Platelet mean volume (Bld) [Entitic vol] 10.7 fL 6.2-12.0 [facility] Determination of erythrocyte mean corpuscular volume (MCV)Ordered By: [facility] on 03-15-2023 MCV (RBC) [Entitic vol] 96.5 fL 80-94 [facility] Hematocrit Auto (Bld) [Volum e fraction]Ordered By: [facility] on 03-15-2023 Hematocrit (Bld) [Volume fraction] 41.8 % 40-54 [facility] Laboratory - Chemistry and C hemistry - challengeOrdered By: [facility] on 03-15-2023 ALP [Catalytic activity/Vol] 60 U/L 45-117 [facility] ALT [Catalytic activity/Vol] 18 U/L 16-61 [facility] CO2 [Moles/Vol] 32.0 mmol/L 21.0-32.0 [facility] Globulin (S) [Mass/Vol] 3.3 g/dL 2.2-4.2 [facility] Urea nitrogen/Creatinine [Mass ratio] 28.3 mg/mg 10-20 [facility] Laboratory - Hematology and Cell countsOrdered By: [facility] on 03-15-2023 Erythrocyte distribution width (RBC) [Entitic vol] 43.7 fL 35.1-43.9 [facility] Erythrocyte distribution width (RBC) [Ratio] 12.2 % 11.6-14.6 [facility] Immature granulocytes/100 WBC (Bld) 0.500 % 0.0-0.9 [facility] Comment on above: IG% - Immature Granu locytes (promyelocytes, myelocytes and metamyelocytes) > 1% indicates that a LEFT SHIFT is Present. MCH (RBC) [Entitic mass] 31.4 pg 27.0-32.0 [facility] Nucleated RBC/100 WBC (Bld) [Ratio] 0 % 0-5 [facility] MCHC Auto (RBC) [Mass/Vol]Or dered By: Taylor on 03-15-2023 MCHC (RBC) [Mass/Vol] 32.5 g/dL 32-36 [facility] No Panel InformationOrdered By: Taylor on 03-15-2023 Estimated GFR (MDRD) Amer 246 mL/min >60 [facility] Comment on above: GFR Calc Estimated GFR (MDRD) Non-Af Amer 203 mL/min >60 [facility] Comment on above: Non- GFR Calc Vitamin D 25-Hydroxy 105.2 ng/mL [facility] Comment on above: Vitamin D 25(OH) [...] test results. Platelets bldOrdered By: Lyla greene Fast on 03-15-2023 Platelets (Bld) [#/Vol] 190 10*3/uL 150-450 [facility] Serum or plasma albumin marialuisa urement (mass/volume)Ordered By: Taylor Fast on 03-15-2023 Albumin [Mass/Vol] 3.7 g/dL 3.2-5.0 [facility] Serum or plasma albumin/glob ulin mass ratioOrdered By: [facility] on 03-15-2023 Albumin/Globulin [Mass ratio] 1.1 {ratio} 0.9-2.4 [facility] Serum or plasma calcium marialuisa urement (mass/volume)Ordered By: [facility] on 03-15-2023 Calcium [Mass/Vol] 9.2 mg/dL 8.5-10.1 [facility] Serum or plasma creatinine m easurement (mass/volume)Ordered By: [facility] on 03-15-2023 Creatinine [Mass/Vol] 0.42 mg/dL 0.70-1.30 [facility] Comment on above: The validity of the calculated GFR & GFRAA in patients over 70 years has not been determined. Clinical correlation is essential. Serum or plasma urea nitroge n measurement (mass/volume)Ordered By: [facility] on 03-15-2023 Urea nitrogen [Mass/Vol] 12 mg/dL 7-18 [facility] Thin prep Papanicolaou smear with manual screeningOrdered By: [facility] on 03-15-2023 Thin prep Papanicolaou smear with manual screening 14 U/L 15-37 [facility] Thin prep Papanicolaou smear with manual screening 1 5-15 [facility] Absolute lymphocyte countOrd ered By: [facility] on 01-03-2023 Lymphocytes Auto (Unsp spec) [#/Vol] 1.42 10*3/uL 0.83-4.51 [facility] Basophil percentageOrdered B y: [facility] on 01-03-2023 Basophils/100 WBC (Bld) 0.5 % 0-1 [facility] Bilirubin [Mass/Vol] 0.50 mg/dL 0.20-1.00 [facility] Comment on above: For patients on eltr ombopag therapy, use of Dimension [place] TBIL is not recommended. Chloride [Moles/Vol] 104 mmol/L 98-107 [facility] Eosinophils/100 WBC (Bld) 4.9 % 0-5 [facility] Glucose [Mass/Vol] 94 mg/dL 74-106 [facility] Neutrophils (Bld) [#/Vol] 1.7 10*3/uL 2.0-7.7 [facility] Neutrophils/100 WBC (Bld) 43.7 % 47-70 [facility] Potassium [Moles/Vol] 4.5 mmol/L 3.5-5.1 [facility] Protein [Mass/Vol] 7.0 g/dL 6.4-8.2 [facility] Sodium [Moles/Vol] 137 mmol/L 136-145 [facility] WBC (Bld) [#/Vol] 3.9 10*3/uL 4.4-11.0 [facility] Blood erythrocytes count (nu mber/volume)Ordered By: Taylor Fast on 01-03-2023 RBC (Bld) [#/Vol] 4.21 10*6/uL 4.6-6.2 [facility] Blood hemoglobin measurement (mass/volume)Ordered By: Taylor Fast on 01-03-2023 Hemoglobin (Bld) [Mass/Vol] 13.4 g/dL 13.0-16.5 [facility] Blood lymphocytes/100 leukoc ytesOrdered By: Taylor Fast on 01-03-2023 Lymphocytes/100 WBC (Bld) 36.7 % 19-41 [facility] Blood monocytes/100 leukocyt esOrdered By: Taylor Fast on 01-03-2023 Monocytes/100 WBC (Bld) 13.7 % 0-10 [facility] Blood platelet mean volumeOr dered By: Taylor Fast on 01-03-2023 Platelet mean volume (Bld) [Entitic vol] 10.5 fL 6.2-12.0 [facility] Determination of erythrocyte mean corpuscular volume (MCV)Ordered By: Taylor Fast on 01-03-2023 MCV (RBC) [Entitic vol] 96.2 fL 80-94 [facility] Hematocrit Auto (Bld) [Volum e fraction]Ordered By: Taylor Fast on 01-03-2023 Hematocrit (Bld) [Volume fraction] 40.5 % 40-54 [facility] Laboratory - Chemistry and C hemistry - challengeOrdered By: Taylor Fast on 01-03-2023 ALP [Catalytic activity/Vol] 122 U/L 45-117 [facility] ALT [Catalytic activity/Vol] 21 U/L 16-61 [facility] CO2 [Moles/Vol] 29.0 mmol/L 21.0-32.0 [facility] Globulin (S) [Mass/Vol] 3.4 g/dL 2.2-4.2 [facility] Urea nitrogen/Creatinine [Mass ratio] 39.3 mg/mg 10-20 [facility] Laboratory - Hematology and Cell countsOrdered By: Taylor on 01-03-2023 Erythrocyte distribution width (RBC) [Entitic vol] 45.7 fL 35.1-43.9 [facility] Erythrocyte distribution width (RBC) [Ratio] 12.8 % 11.6-14.6 [facility] Immature granulocytes/100 WBC (Bld) 0.500 % 0.0-0.9 [facility] Comment on above: IG% - Immature Granu locytes (promyelocytes, myelocytes and metamyelocytes) > 1% indicates that a LEFT SHIFT is Present. MCH (RBC) [Entitic mass] 31.8 pg 27.0-32.0 [facility] Nucleated RBC/100 WBC (Bld) [Ratio] 0 % 0-5 [facility] MCHC Auto (RBC) [Mass/Vol]Or dered By: Taylor on 01-03-2023 MCHC (RBC) [Mass/Vol] 33.1 g/dL 32-36 [facility] No Panel InformationOrdered By: Taylor on 01-03-2023 Estimated GFR (MDRD) Amer 258 mL/min >60 [facility] Comment on above: GFR Calc Estimated GFR (MDRD) Non-Af Amer 213 mL/min >60 [facility] Comment on above: Non- GFR Calc Vitamin D 25-Hydroxy 96.1 ng/mL [facility] Comment on above: Vitamin D 25(OH) Sta tus Range Deficiency <20 ng/mL (50nmol/L) Insufficiency 20 - 30 ng/mL (50 - 75 nmol/L) Sufficiency 30 - 100 ng/mL (75 - 250 nmol/L) Toxicity >100 ng/mL (>250 nmol/L) Platelets bldOrdered By: Lyla greene Fast on 01-03-2023 Platelets (Bld) [#/Vol] 207 10*3/uL 150-450 [facility] Serum or plasma albumin marialuisa urement (mass/volume)Ordered By: Taylor Zuniga on 01-03-2023 Albumin [Mass/Vol] 3.6 g/dL 3.2-5.0 [facility] Serum or plasma albumin/glob ulin mass ratioOrdered By: Taylor Zuniga on 01-03-2023 Albumin/Globulin [Mass ratio] 1.1 {ratio} 0.9-2.4 [facility] Serum or plasma calcium marialuisa urement (mass/volume)Ordered By: Taylor Zuniga on 01-03-2023 Calcium [Mass/Vol] 9.2 mg/dL 8.5-10.1 [facility] Serum or plasma creatinine m easurement (mass/volume)Ordered By: Taylor Zuniga on 01-03-2023 Creatinine [Mass/Vol] 0.41 mg/dL 0.70-1.30 [facility] Comment on above: The validity of the calculated GFR & GFRAA in patients over 70 years has not been determined. Clinical correlation is essential. Serum or plasma urea nitroge n measurement (mass/volume)Ordered By: Taylor Zuniga on 01-03-2023 Urea nitrogen [Mass/Vol] 16 mg/dL 7-18 [facility] Thin prep Papanicolaou smear with manual screeningOrdered By: Taylor Zuniga on 01-03-2023 Thin prep Papanicolaou smear with manual screening 15 U/L 15-37 [facility] Thin prep Papanicolaou smear with manual screening 4 5-15 [facility] Whole blood hemoglobin A1c/t otal hemoglobin ratio (mass fraction)Ordered By: Taylor Zuniga on 01-03-2023 HbA1c (Bld) [Mass fraction] 5.0 % 3.8-5.6 [facility] Comment on above: Normal < 5.7 % Predi abetic 5.7 - 6.4 % Diabetic >or= 6.5 % Please note range changes. Absolute lymphocyte countOrd ered By: Dr. Zuniga on 09-13-2022 Lymphocytes Auto (Unsp spec) [#/Vol] 1.17 10*3/uL 0.83-4.51 [facility] Basophil percentageOrdered B y: Dr. Zuniga on 09-13-2022 Basophil percentage 0 SEEN /hpf 0-5 [facility] Basophils/100 WBC (Bld) 0.8 % 0-1 [facility] Bilirubin [Mass/Vol] 0.40 mg/dL 0.20-1.00 [facility] Comment on above: For patients on eltr ombopag therapy, use of Dimension [place] TBIL is not recommended. Chloride [Moles/Vol] 105 mmol/L 98-107 [facility] Cholesterol [Mass/Vol] 175 mg/dL <200 [facility] Comment on above: <200 mg/dL Desirable 200-240 mg/dL Borderline >240 mg/dL High Risk Eosinophils/100 WBC (Bld) 3.0 % 0-5 [facility] Glucose [Mass/Vol] 122 mg/dL 74-106 [facility] Comment on above: Fasting Glucose resu lt from 100 to 125 mg/dL suggests IMPAIRED HOMEOSTASIS per A.D.A. criteria. Neutrophils (Bld) [#/Vol] 2.9 10*3/uL 2.0-7.7 [facility] Neutrophils/100 WBC (Bld) 58.0 % 47-70 [facility] Potassium [Moles/Vol] 4.5 mmol/L 3.5-5.1 [facility] Protein [Mass/Vol] 7.4 g/dL 6.4-8.2 [facility] Sodium [Moles/Vol] 139 mmol/L 136-145 [facility] Triglyceride [Mass/Vol] 91 mg/dL <199 [facility] Comment on above: The drugs N-Acetylcy steine and Metamizole may falsely depress this assay.Serum Triglycerides Reference Interval Normal <150 mg/dL Borderline high 150 - 199 mg/dL High 200 - 499 mg/dL Very High > or = 500 mg/dL WBC (Bld) [#/Vol] 5.0 10*3/uL 4.4-11.0 [facility] Bilirubin Test strip Ql (U)O rdered By: Dr. Zuniga on 09-13-2022 Bilirubin Ql (U) Negative Negative [facility] Blood erythrocytes count (nu mber/volume)Ordered By: Dr. Zuniga on 09-13-2022 RBC (Bld) [#/Vol] 4.25 10*6/uL 4.6-6.2 [facility] Blood hemoglobin measurement (mass/volume)Ordered By: Dr. Zuniga on 09-13-2022 Hemoglobin (Bld) [Mass/Vol] 13.5 g/dL 13.0-16.5 [facility] Blood lymphocytes/100 leukoc ytesOrdered By: Dr. Zuniga on 09-13-2022 Lymphocytes/100 WBC (Bld) 23.5 % 19-41 [facility] Blood monocytes/100 leukocyt esOrdered By: Dr. Zuniga on 09-13-2022 Monocytes/100 WBC (Bld) 14.3 % 0-10 [facility] Blood platelet mean volumeOr dered By: Dr. Zuniga on 09-13-2022 Platelet mean volume (Bld) [Entitic vol] 11.4 fL 6.2-12.0 [facility] Determination of erythrocyte mean corpuscular volume (MCV)Ordered By: Dr. Zuniga on 09-13-2022 MCV (RBC) [Entitic vol] 97.9 fL 80-94 [facility] Hematocrit Auto (Bld) [Volum e fraction]Ordered By: Dr. Zuniga on 09-13-2022 Hematocrit (Bld) [Volume fraction] 41.6 % 40-54 [facility] Ketones Test strip Ql (U)Ord ered By: Dr. Zuniga on 09-13-2022 Ketones Ql (U) Negative Negative [facility] Laboratory - Chemistry and C hemistry - challengeOrdered By: Dr. Zuniga on 09-13-2022 ALP [Catalytic activity/Vol] 63 U/L 45-117 [facility] ALT [Catalytic activity/Vol] 26 U/L 16-61 [facility] CO2 [Moles/Vol] 29.0 mmol/L 21.0-32.0 [facility] Cobalamin (Vitamin B12) [Mass/Vol] 982 pg/mL 211-911 [facility] Globulin (S) [Mass/Vol] 3.6 g/dL 2.2-4.2 [facility] Natriuretic peptide B (Bld) [Mass/Vol] 20.3 pg/mL 0-100 [facility] Urea nitrogen/Creatinine [Mass ratio] 48.7 mg/mg 10-20 [facility] Laboratory - Hematology and Cell countsOrdered By: Dr. Zuniga on 09-13-2022 Erythrocyte distribution width (RBC) [Entitic vol] 46.2 fL 35.1-43.9 [facility] Erythrocyte distribution width (RBC) [Ratio] 12.9 % 11.6-14.6 [facility] Immature granulocytes/100 WBC (Bld) 0.400 % 0.0-0.9 [facility] Comment on above: IG% - Immature Granu locytes (promyelocytes, myelocytes and metamyelocytes) > 1% indicates that a LEFT SHIFT is Present. MCH (RBC) [Entitic mass] 31.8 pg 27.0-32.0 [facility] Nucleated RBC/100 WBC (Bld) [Ratio] 0 % 0-5 [facility] MCHC Auto (RBC) [Mass/Vol]Or dered By: Dr. Zuniga on 09-13-2022 MCHC (RBC) [Mass/Vol] 32.5 g/dL 32-36 [facility] Mucus LM Ql (Urine sed)Order ed By: Dr. Zuniga on 09-13-2022 Mucus Ql (Urine sed) 0 SEEN /hpf [facility] Nitrite Test strip Ql (U)Ord ered By: Dr. Zuniga on 09-13-2022 Nitrite Ql (U) Negative Negative [facility] No Panel InformationOrdered By: Dr. Zuniga on 09-13-2022 Estimated GFR (MDRD) Amer 255 mL/min >60 [facility] Comment on above: GFR Calc Estimated GFR (MDRD) Non-Af Amer 211 mL/min >60 [facility] Comment on above: Non- GFR Calc Prostate Specific Antigen Screen 3.23 ng/mL 0.00-4.00 [facility] Comment on above: This test was perfor med using the TPSA assay method [facility] Values obtained with differentassay methods cannot be used interchangably.When changing PSA assays in the course of monitoring apatient, additional sequential testing should be carriedout to confirm baseline values. Thyroid Stimulating Hormone (TSH) 2.06 uIU/mL 0.358-3.74 [facility] Urine Microalbumin/Creatinin e Ratio 54.2 mg/g CRE <30 [facility] Vitamin D 25-Hydroxy 95.7 ng/mL [facility] Comment on above: Vitamin D 25(OH) Sta tus Range Deficiency <20 ng/mL (50nmol/L) Insufficiency 20 - 30 ng/mL (50 - 75 nmol/L) Sufficiency 30 - 100 ng/mL (75 - 250 nmol/L) Toxicity >100 ng/mL (>250 nmol/L) Platelets bldOrdered By: Dr. Zuniga on 09-13-2022 Platelets (Bld) [#/Vol] 188 10*3/uL 150-450 [facility] Protein Test strip Ql (U)Ord ered By: Dr. Zuniga on 09-13-2022 Protein Ql (U) Negative Negative [facility] Serum or plasma albumin marialuisa urement (mass/volume)Ordered By: Dr. Zuniga on 09-13-2022 Albumin [Mass/Vol] 3.8 g/dL 3.2-5.0 [facility] Serum or plasma albumin/glob ulin mass ratioOrdered By: Dr. Zuniga on 09-13-2022 Albumin/Globulin [Mass ratio] 1.1 {ratio} 0.9-2.4 [facility] Serum or plasma calcium marialuisa urement (mass/volume)Ordered By: Dr. Zuniga on 09-13-2022 Calcium [Mass/Vol] 9.4 mg/dL 8.5-10.1 [facility] Serum or plasma cholesterol in HDL measurement (mass/volume)Ordered By: Dr. Zuniga on 09-13-2022 Cholesterol in HDL [Mass/Vol] 79 mg/dL >40 [facility] Comment on above: The drugs N-Acetylcy steine and Metamizole may falsely depress this assay. Reference Range HDL <40 mg/dL Low HDL Cholesterol HDL >or= 60 mg/dL High HDL Cholesterol Serum or plasma cholesterol in VLDL measurement (mass/volume)Ordered By: Dr. Zuniga on 09-13-2022 Cholesterol in VLDL [Mass/Vol] 18 mg/dL 5-40 [facility] Serum or plasma creatinine m easurement (mass/volume)Ordered By: Dr. Zuniga on 09-13-2022 Creatinine [Mass/Vol] 0.41 mg/dL 0.70-1.30 [facility] Comment on above: The validity of the calculated GFR & GFRAA in patients over 70 years has not been determined. Clinical correlation is essential. Serum or plasma folate measu rement (mass/volume)Ordered By: Dr. Zuniga on 09-13-2022 Folate [Mass/Vol] 29.20 ng/mL 3.1-55.4 [facility] Serum or plasma low density lipoprotein (LDL) cholesterol measurement (mass/volume)Ordered By: Dr. Zuniga on 09-13-2022 Cholesterol in LDL [Mass/Vol] 78 mg/dL 0-130 [facility] Serum or plasma urea nitroge n measurement (mass/volume)Ordered By: Dr. Zuniga on 09-13-2022 Urea nitrogen [Mass/Vol] 20 mg/dL 7-18 [facility] Squamous epithelial cells de tection in urine sediment by light microscopyOrdered By: Dr. Zuniga on 09-13-2022 Epithelial cells.squamous LM Ql (Urine sed) 0 SEEN /hpf 0-5 [facility] Thin prep Papanicolaou smear with manual screeningOrdered By: Dr. Zuniga on 09-13-2022 Thin prep Papanicolaou smear with manual screening 16 U/L 15-37 [facility] Thin prep Papanicolaou smear with manual screening 5 5-15 [facility] Thin prep Papanicolaou smear with manual screening 16.1 mg/L NO RANGE EST. [facility] Urine blood detectionOrdered By: Dr. Zuniga on 09-13-2022 RBC Ql (U) Negative Negative [facility] RBC Ql (U) 0 SEEN /hpf 0-5 [facility] Urine clarityOrdered By: Dr. Zuniga on 09-13-2022 Clarity (U) Clear Clear [facility] Urine color determinationOrd ered By: Dr. Zuniga on 09-13-2022 Color (U) Yellow Yellow [facility] Urine creatinine measurement (mass/volume)Ordered By: Dr. Zuniga on 09-13-2022 Creatinine (U) [Mass/Vol] 29.70 mg/dL NO RANGE EST. [facility] Urine glucose detectionOrder ed By: Dr. Zuniga on 09-13-2022 Glucose Ql (U) Normal mg/dl Normal [facility] Urine leukocyte esterase det ection by dipstickOrdered By: Dr. Zuniga on 09-13-2022 Leukocyte esterase Test strip Ql (U) 25 /ul Negative [facility] Urine pHOrdered By: Dr. Zuniga on 09-13-2022 pH (U) 6.5 [pH] 5.0 - 8.0 [facility] Urine sediment bacteria coun t by microscopy (number/high power field)Ordered By: Dr. Zuniga on 09-13-2022 Bacteria LM.HPF (Urine sed) [#/Area] 0 /[HPF] None Seen [facility] Urine specific gravity measu rementOrdered By: Dr. Zuniga on 09-13-2022 Specific gravity (U) [Rel density] 1.010 1.002-1.03 0 [facility] Urobilinogen Auto test strip Ql (U)Ordered By: Dr. Zuniga on 09-13-2022 Urobilinogen Ql (U) Normal mg/dl Normal [facility] Vital Signs Date Time Vital Sign Value Performing Clinician Facility 03-13-2025 09:27-0500 Heart rate 66 /min Dr. Taylor Zuniga DO Work Phone: [facility] 03-13-2025 09:21-0500 Body temperature 99.1 [degF] Dr. Taylor Zuniga DO Work Phone: [facility] 03-13-2025 09:21-0500 Diastolic blood pressure 47 mm[Hg] Dr. Taylor Zuniga DO Work Phone: [facility] 03-13-2025 09:21-0500 Respiratory rate 15 /min Dr. Taylor Zuniga DO Work Phone: [facility] 03-13-2025 09:21-0500 SaO2% (BldA) [Mass fraction] 95 % Dr. Taylor Zuniga DO Work Phone: [facility] 03-13-2025 09:21-0500 Systolic blood pressure 120 mm[Hg] Dr. Taylor Zuniga DO Work Phone: [facility] 03-11-2025 13:54-0500 Body height [address] Taylor Zuniga DO Work Phone: [facility] 03-11-2025 13:54-0500 Body weight 68.[address] Taylor Zuniga DO Work Phone: [facility] 03-05-2025 16:00-0400 Body mass index (BMI) [Ratio] 23.6 kg/m2 Dr. Taylor Zuniga DO Work Phone: [facility] 02-24-2025 21:50-0400 Body temperature 98.3 [degF] Dr. Taylor Zuniga DO Work Phone: [facility] 02-24-2025 21:50-0400 Diastolic blood pressure 63 mm[Hg] Dr. Taylor Zuniga DO Work Phone: [facility] 02-24-2025 21:50-0400 Heart rate 68 /min Dr. Taylor Zuniga DO Work Phone: [facility] 02-24-2025 21:50-0400 Respiratory rate 18 /min Dr. Taylor Zuniga DO Work Phone: [facility] 02-24-2025 21:50-0400 SaO2% (BldA) [Mass fraction] 99 % Dr. Taylor Zuniga DO Work Phone: [facility] 02-24-2025 21:50-0400 Systolic blood pressure 189 mm[Hg] Dr. Taylor Zuniga DO Work Phone: [facility] 02-24-2025 17:04-0400 Body mass index (BMI) [Ratio] 24.5 kg/m2 Dr. Taylor Zuniga DO Work Phone: [facility] 02-24-2025 17:04-0400 Body weight 70.[address] Taylor Zuniga DO Work Phone: [facility] 12-17-2022 15:35-0400 Body height 177.8 cm [facility] 12-17-2022 15:35-0400 Body temperature 97.2 [degF] [facility] 12-17-2022 15:35-0400 Diastolic blood pressure 68 mm[Hg] [facility] 12-17-2022 15:35-0400 Heart rate 65 /min [facility] 12-17-2022 15:35-0400 Respiratory rate 18 /min [facility] 12-17-2022 15:35-0400 SaO2% (BldA) [Mass fraction] 98 % [facility] 12-17-2022 15:35-0400 Systolic blood pressure 167 mm[Hg] [facility] 12-15-2022 21:37-0400 Diastolic blood pressure 78 mm[Hg] [...] Date Encounter Type Care Provider Facility Start: 03-05-2025 Evaluation and management of inpatient Taylor Fast Facility:[facility] Start: 02-26-2025 End: 02-26-2025 Evaluation and management of inpatient [facility] Facility:[facility] Start: 02-24-2025 End: 03-05-2025 Evaluation and management of inpatient [facility] Facility:[facility] Start: 02-24-2025 ambulatory Taylor Fast Facility:[facility] Start: 02-24-2025 Non-patient / Non-visit Dr. Windy Jasso MD -[facility] Start: 02-24-2025 End: 02-24-2025 Emergency department patient visit Dr. Zee Alonso DO -Emergency Department Work Phone: Start: 12-18-2024 End: 12-18-[address] Taylor Zuniga DO Work Phone: -Laboratory Start: 12-18-2024 End: 12-18-[address] Taylor Zuniga DO -Laboratory Work Phone: Start: 12-18-2024 End: 12-18-2024 ambulatory Taylor Fast Facility:[facility] Start: 09-16-2024 End: 09-16-[address] Taylor Zuniga DO Work Phone: [facility] Work Phone: Start: 09-16-2024 End: 09-16-[address] Taylor Zuniga DO -Laboratory Work Phone: Start: 09-16-2024 End: 09-16-2024 ambulatory Taylor Fast Facility:[facility] Start: 06-19-2024 End: 06-19-[address] Taylor Zuniga DO -Laboratory Work Phone: Start: 06-19-2024 End: 06-19-2024 ambulatory Taylor Fast Facility:[facility] Start: 07-27-2023 End: 07-27-2023 ambulatory [facility] Work Phone: Start: 07-27-2023 End: 07-27-2023 Patient encounter procedure [facility] Work Phone: Start: 04-18-2023 End: 04-18-2023 ambulatory [facility] Work Phone: Start: 04-18-2023 End: 04-18-2023 Patient encounter procedure [facility] Work Phone: Start: 03-15-2023 End: 03-15-2023 ambulatory [facility] Work Phone: Start: 03-15-2023 End: 03-15-2023 Patient encounter procedure [facility] Work Phone: Start: 01-03-2023 End: 01-03-2023 ambulatory [facility] Work Phone: Start: 01-03-2023 End: 01-03-2023 Patient encounter procedure [facility] Work Phone: Start: 12-17-2022 End: 12-17-2022 Emergency department patient visit [facility] Work Phone: Start: 12-15-2022 End: 12-25-2022 Home visit est pt mod-hi severity 40 minutes Taylor Fast DO Work Phone: [facility] Start: 09-13-2022 End: 10-04-2022 ambulatory [facility] Work Phone: Start: 09-13-2022 End: 10-04-2022 Discharged Recurring [facility] Start: 08-23-2022 End: 08-23-2022 Phone Encounter Taylor Fast DO Work Phone: [facility] Start: 08-22-2022 ambulatory Taylor A Fast DO [facility] Start: 08-22-2022 End: 08-22-2022 Home visit new pt unstabl/signif new prob 75 min Taylor Fast DO Work Phone: [facility] Procedures Date Procedure Procedure Detail Performing Clinician Start: 03-13-[address] Vazquez Fast DO Work Phone: Start: 02-24-2025 CT of abdomen and pelvis without contrast Dr. Taylor Zuniga DO Work Phone: Start: 02-24-2025 Plain X-ray abdomen Dr. Taylor Zuniga DO Work Phone: Start: 02-24-[address] Taylor Zuniga [employer] Work Phone: Start: 02-24-2025 CT of thorax, abdome n and pelvis with contrast Dr. Taylor Zuniga DO Work Phone: Start: 12-18-2024 Vitamin D, 25-hydrox y measurement Dr. Taylor Zuniga [employer] Work Phone: Comment on above: Vitamin D [...] 3 Views Procedure Note: See Note; NOTES: [facility] Imaging Services [address] [place] [address] Lumbar Spine 2 or 3 Views MR#: [id number] Acct: [id number] Name: JEANIE RANKIN Rep #: [id number] : 1940 M 82 From: Paulie Licona MD PCP: Dr. Taylor Zuniga DO Status: REG ER Study: Lumbar Spine 2 or 3 Views Date of Exam: Exam# [id number] Ordering Dr: Tor Yadav MD STUDY: X-RAY [...] Taylor Zuniga DO; Dr. Tor Yadav MD Director Summer Sessions: Signed Taylor Zuniga DO Work Phone: Start: 12-17-2022 X-ray of lumbar spin e, two or three views Start: 12-17-2022 End: 12-17-2022 Emergency Department Summary Procedure Note: See Note; NOTES: [facility] Medical Records Department [address] [place] [address] Emergency Department Summary 12/17/22 MR#: [id number] Acct: [id number] Name: JEANIE RANKIN Rep #: [id number] : 1940 82 From: Tor Yadav MD [...] blood thinners, vomiting, feeling dazed or confused. [facility] <BENNETT Miranda - Last Filed: 12/17/22 18:48> [facility] Medical History Anemia CYST EXCISION RIGHT [...] Mild Itching Verified 12/17/22 15:35 [From Neosporin ([id number])] neomycin AdvReac Mild Itching Verified 12/17/22 15:35 [From Neosporin ([id number]-[id number]-[id number])] polymyxin B AdvReac Mild Itching Verified 12/17/22 15:35 [From Neosporin ([id number])] adhesive tape AdvReac Unknown Verified 12/17/22 15:35 [...] <BENNETT Miranda - Last Filed: 12/17/22 18:48> [facility] Narrative Medical decision making narrative: Patient [...] Yadav MD - Last Filed: 12/17/22 16:06> [facility] Narrative Medical decision making narrative: Patient [...] with epi Irrigated (ml): 100 Number of Sutures/Naveen: 6 Suture Information: Ethilon (4-0) and Simple Discharge Plan Triage Chief Complaint: Fall Other Complaint: Head Injury Laceration ED Midlevel Provider: Maria Dolores Shay ED Provider: Tor Yadav Dx/Rx/DC Orders Clinical Impression: Head injury, Fall, Laceration of scalp Instructions: ED Head Injury (Adult), ED Laceration Scalp Stitches or Naveen Prescriptions: No Action multivitamin with folic acid [...] your Primary Care Provider. Call [facility] ([phone]) or report to the closest Emergency Room. Call 911 if necessary. 12/17/22 2018 <Electronically signed by Tor Yadav MD> [...] Treatment Date Care Activity Detail Author Start: 03-12-2025 Wound care [facility] Start: 03-08-2025 End: 03-09-2025 [facility] Start: 03-06-2025 Verification routine [facility] Start: 03-06-2025 Development of care plan [facility] Start: 03-06-2025 Speech therapy management [facility] Start: 03-06-2025 Developing a treatment plan [facility] Start: 03-05-2025 Speech therapy assessment [facility] Start: 03-05-2025 Following clinical pathway protocol [facility] Start: 03-05-2025 Admission procedure [facility] Start: 03-05-2025 Introduction of urinary catheter [facility] Start: 03-05-2025 Measuring intake and output [facility] Start: 03-05-2025 End: 03-06-2025 Patient referral to dietitian [facility] Start: 03-05-2025 Referral for physical therapy [facility] Start: 03-05-2025 Referral to occupational therapist [facility] Start: 03-05-2025 Vital signs measurements [facility] Start: 03-05-2025 [facility] Start: 03-05-2025 Evaluation and management of inpatient Debility -Transitional Care Unit Start: 02-24-2025 End: 02-24-2025 [facility] Start: 12-25-2022 Blood count complete auto&auto difrntl wbc CBC W/AUTO DIFF WBC (86170) [facility]; [facility] Work Phone: Start: 12-25-2022 25 hydroxy includes fractions if performed Vitamin D Hydroxy (30539) [facility]; [facility] Work Phone: Start: 12-25-2022 Hemoglobin glycosylated a1c HGB A1C (63810) [facility]; [facility] Work Phone: Start: 12-25-2022 Comprehensive metabolic panel METABOLIC PANEL, COMPREHENSIVE (82226) [facility]; [facility] Work Phone: Start: 12-25-2022 Procedure Education Eprescribed prescriptions (G8553) [facility]; [facility] Work Phone: Start: 12-17-2022 Smpl repair scalp/neck/ax/genit/trun k 2.6-7.5cm RPR S/N/AX/GEN/TRNK2.6-7.5C M [facility] Start: 08-22-2022 Natriuretic peptide BNTP (83441) [facility]; [facility] Work Phone: Start: 08-22-2022 Assay of prostate specific antigen total PSA (Medicare - G0103) (43213) [facility]; [facility] Work Phone: Start: 08-22-2022 Lipid panel LIPID PANEL (28607) [facility]; [facility] Work Phone: Start: 08-22-2022 25 hydroxy includes fractions if performed Vitamin D Hydroxy (34585) [facility]; [facility] Work Phone: Start: 08-22-2022 Cyanocobalamin vitamin b-12 VITAMIN B12 AND FOLATES (66207) [facility]; [facility] Work Phone: Start: 08-22-2022 Urine albumin quantitative MICROALBUMIN: CREATININE RATIO (60585) AND (00480) [facility]; [facility] Work Phone: Start: 08-22-2022 Urnls dip stick/tablet reagent auto microscopy URINALYSIS, W/ MICRO (54370) [facility]; [facility] Work Phone: Start: 08-22-2022 Assay of thyroid stimulating hormone tsh TSH (15742) [facility]; [facility] Work Phone: Start: 08-22-2022 Blood count complete auto&auto difrntl wbc CBC W/AUTO DIFF WBC (32382) [facility]; [facility] Work Phone: Start: 08-22-2022 Comprehensive metabolic panel METABOLIC PANEL, COMPREHENSIVE (96840) [facility]; [facility] Work Phone: Anion gap in Serum o r Plasma [facility] Anion gap in Serum o r Plasma [facility] Anion gap in Serum o r Plasma [facility] Anion gap in Serum o r Plasma [facility] Anion gap in Serum o r Plasma [facility] BUN/Creatinine ratio [facility] BUN/Creatinine ratio [facility] BUN/Creatinine ratio [facility] BUN/Creatinine ratio [facility] BUN/Creatinine ratio [facility] Calcium [Mass/volume ] in Serum or Plasma [facility] Calcium [Mass/volume ] in Serum or Plasma [facility] Calcium [Mass/volume ] in Serum or Plasma [facility] Calcium [Mass/volume ] in Serum or Plasma [facility] Calcium [Mass/volume ] in Serum or Plasma [facility] Carbon dioxide katalina nt measurement [facility] Carbon dioxide katalina nt measurement [facility] Carbon dioxide katalina nt measurement [facility] Carbon dioxide katalina nt measurement [facility] Carbon dioxide katalina nt measurement [facility] Creatinine [Mass/vol ume] in Serum or Plasma [facility] Creatinine [Mass/vol ume] in Serum or Plasma [facility] Creatinine [Mass/vol ume] in Serum or Plasma [facility] Creatinine [Mass/vol ume] in Serum or Plasma [facility] Creatinine [Mass/vol ume] in Serum or Plasma [facility] Erythrocyte mean corpuscular volume determination [facility] Erythrocyte mean corpuscular volume determination [facility] Erythrocyte mean corpuscular volume determination [facility] Erythrocyte mean corpuscular volume determination [facility] Erythrocyte mean corpuscular volume determination [facility] Glucose [Mass/volume ] in Serum or Plasma [facility] Glucose [Mass/volume ] in Serum or Plasma [facility] Glucose [Mass/volume ] in Serum or Plasma [facility] Glucose [Mass/volume ] in Serum or Plasma [facility] Glucose [Mass/volume ] in Serum or Plasma [facility] Hematocrit [Volume Fraction] of Blood [facility] Hematocrit [Volume Fraction] of Blood [facility] Hematocrit [Volume Fraction] of Blood [facility] Hematocrit [Volume Fraction] of Blood [facility] Hematocrit [Volume Fraction] of Blood [facility] Hemoglobin [Mass/vol ume] in Blood [facility] Hemoglobin [Mass/vol ume] in Blood [facility] Hemoglobin [Mass/vol ume] in Blood [facility] Hemoglobin [Mass/vol ume] in Blood [facility] Hemoglobin [Mass/vol ume] in Blood [facility] Leukocytes [#/volume ] in Blood [facility] Leukocytes [#/volume ] in Blood [facility] Leukocytes [#/volume ] in Blood [facility] Leukocytes [#/volume ] in Blood [facility] Leukocytes [#/volume ] in Blood [facility] Mean corpuscular hemoglobin concentration determination [facility] Mean corpuscular hemoglobin concentration determination [facility] Mean corpuscular hemoglobin concentration determination [facility] Mean corpuscular hemoglobin concentration determination [facility] Mean corpuscular hemoglobin concentration determination [facility] Mean corpuscular hemoglobin determination [facility] Mean corpuscular hemoglobin determination [facility] Mean corpuscular hemoglobin determination [facility] Mean corpuscular hemoglobin determination [facility] Mean corpuscular hemoglobin determination [facility] Measurement of renal function [facility] Measurement of renal function [facility] Measurement of renal function [facility] Measurement of renal function [facility] Measurement of renal function [facility] Neutrophil count [facility] Neutrophil count [facility] Neutrophil count [facility] Neutrophil count [facility] Neutrophil count [facility] Neutrophil percent differential count [facility] Neutrophil percent differential count [facility] Neutrophil percent differential count [facility] Neutrophil percent differential count [facility] Neutrophil percent differential count [facility] Patient Education ED Head Injury (Adult) ED Laceration Scalp Stitches or Naveen [facility] Work Phone: Patient referral [facility] Work Phone: Platelets [#/volume] in Blood [facility] Platelets [#/volume] in Blood [facility] Platelets [#/volume] in Blood [facility] Platelets [#/volume] in Blood [facility] Platelets [#/volume] in Blood [facility] Potassium measurement [facility] Potassium measurement [facility] Potassium measurement [facility] Potassium measurement [facility] Potassium measurement [facility] Red blood cell count [facility] Red blood cell count [facility] Red blood cell count [facility] Red blood cell count [facility] Red blood cell count [facility] Red cell distributio n width determination [facility] Red cell distributio n width determination [facility] Red cell distributio n width determination [facility] Red cell distributio n width determination [facility] Red cell distributio n width determination [facility] Serum chloride measurement [facility] Serum chloride measurement [facility] Serum chloride measurement [facility] Serum chloride measurement [facility] Serum chloride measurement [facility] Sodium measurement [facility] Sodium measurement [facility] Sodium measurement [facility] Sodium measurement [facility] Sodium measurement [facility] Urea nitrogen [Mass/volume] in Serum or Plasma [facility] Urea nitrogen [Mass/volume] in Serum or Plasma [facility] Urea nitrogen [Mass/volume] in Serum or Plasma [facility] Urea nitrogen [Mass/volume] in Serum or Plasma [facility] Urea nitrogen [Mass/volume] in Serum or Plasma [facility]; [facility] Work Phone: Immunizations Immunization Date Immunization Notes Care Provider Fa elsie 12-17-2022 tetanus toxoid, redu jonathan diphtheria toxoid, and acellular pertussis vaccine, adsorbed [facility] 03-29-2016 tetanus and diphther ia toxoids, adsorbed, preservative free, for adult use (2 Lf of tetanus toxoid and 2 Lf of diphtheria toxoid) [facility] Payers Date Payer Category Payer Self-pay [id number] 2022 Private Health Insurance [facility] [id number] 2011 Unknown [id number] 2003 Medicare [id number] 1940 Unknown [id number] 2.16.84 [id number] Unknown Unknown [id number] 2.16.8 [id number] Unknown [id number] 2.16.8 [id number] Unknown [id number] 2.16.8 [id number] Unknown [id number] 2.16.8 [id number] Unknown [id number] 2.16.8 [id number] Unknown [id number] 2.16.8 [id number] Social History Date Type Detail Facility Current Household Members Current Household Members [facility]; [facility] Work Phone: 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 none but 2 children adopted daughter and son - Start: 12-04-2018 End: 12-17-2022 Tobacco smoking status NEIS Unknown if ever smoked [facility] Start: 1940 Sex Assigned At Male [facility] Start: 02-01-2024 End: 03-05-2025 Tobacco smoking status NHIS Never smoked tobacco (finding) [facility] Sex Male [facility] Goals Date Patient Goal Desired Activity /State Functional Status Date Assessment Result Facility 03-13-2025 Functional status Lift Assist Si t to Stand Lift [facility] Work Phone: 03-12-2025 Functional status Activity Abili ty With Assist of 2 [facility] Work Phone: Mental Status Date Assessment Result Facility 03-12-2025 Cognitive function Voice/Name [facility] Work Phone: 03-11-2025 Cognitive function Appropriate [facility] Work Phone: Clinical Notes 12-17-2022 to 03-05-2025 Note Date & Type Note Facility 03-05-2025 Note [facility] Medical Records Department [address] [place] [address] History Physical Exam 03/05/251811 MR#: [id number] Acct: [id number] Name: JEANIE RANKIN Rep #: [id number] : 1940 84 From: Rey Henao MD PCP: Dr. Taylor Zuniga, DO Status:ADM IN Location: [facility] - General General Date of Admission: 03/05/25 Date of Service: 02/26/25 Chief Complaint: Here for rehabilitation. HPI Narrative JEANIE RANKIN, is a 84 Male who presents with followin02/25/2025 Admit [facility]. Abdominal pain, nausea, vomiting for [address] abdomen/pelvis showed large hiatal hernia with gastric outlet obstruction. NG placed. Hiatal hernia contains stomach with short segment of duodenum. Hiatal hernia present since 2010. Gastric distention improved with NG placement. Patient declined surgical intervention. Consult GI for EGD, Gastropexy. 03/02/2025 No acute events overnight, passing flatus, no bowel movement. Tolerating 3 protein shakes brought in by his . Patient agreeable to PPN. Plan surgery 03/04/2025 for full repair of hiatal hernia. Cardiology preoperative stress test showed mild to moderate ischemia. Cardiology recommended medical management, minimize OR time. Lopressor, Lisinopril, Aspirin. PT/OT for Debility. 03/04/2025 Patient underwent robot assisted laparoscopic hiatal hernia repair. Patient did well postoperatively. 03/05/2025 Admit to TCU with debility, here for rehabilitation, strengthening, prior to discharge home with . [facility] Medical History (Updated 03/05/25 @ 18:[address] Rey Henao MD) History of non-Hodgkin's lymphoma Lichenification Lymphedema Inclusion body myositis Scarlet fever Cancer CYST EXCISION RIGHT BREAST Osteopenia Hypertension Anemia Home Medications ???Medication ???Instructions ???Recorded ???Last Taken ???Type Cholecalciferol (Vitamin D3) 2,000 units PO DAILY supplement Unknown History multivitamin with folic acid 400 1 tab PO DAILY supplement 07/31/16 Unknown History mcg tablet (Thera) cyanocobalamin (vitamin B-12) 1,000 mcg sublingual DAILY 8 Unknown History 1,000 mcg sublingual tablet supplement Nitric Oxide 420 mg PO DAILY supplement 9 Unknown History coenzyme Q10 50 mg chewable tablet 200 mg PO DAILY supplement 12/04 Unknown History elderberry fruit 200 mg capsule 200 mg PO DAILY supplement 3 Unknown History turmeric 400 mg capsule 400 mg PO DAILY supplement 3 Unknown History cetirizine 10 mg tablet (24Hour 10 mg PO DAILY allergies 01/29/24 02/01/24 History Allergy) lisinopril 5 mg tablet 10 mg PO DAILY blood pressure 01/0602/01/24 History aspirin 81 mg chewable tablet 1 tab PO DAILY Heart Health Unknown History metoprolol tartrate 25 mg tablet 25 mg PO BID BP 03/05/25 Unknown H istory multivitamin (Daily Multi-Vitamin 1 tab PO DAILY Supplement 5 Unknown History tablet) oxycodone 5 mg tablet 5 mg PO 4X/DAY PRN PRN pain Unknown History pantoprazole 40 mg tablet,delayed 40 mg PO BID GERD 03/05/25 Unknow n History release Allergy/AdvReac Type Severity Reaction Status Date / Time bacitracin (From Neosporin AdvReac Mild Itching Verified 02/24/25 17:08 ([id number])) neomycin (From Neosporin AdvReac Mild Itching Verified 02/24/25 17:08 (zkb-bhp-krjkz)) polymyxin B (From Neosporin AdvReac Mild Itching Verified 02/24/25 17:08 (wih-ogf-ethxm)) adhesive tape AdvReac Unknown Verified 02/24/25 17:08 Family History Father Colon cancer Mother Gastric cancer Surgical History (Updated 03/05/25 @ 18:[address] Rey Henao MD) History of repair of hiatal hernia History of cataract extraction Social History (Updated 03/05/25 @ 18:[address] Rey Henao MD) household members: spouse Smoking Status: Never smoker alcohol intake: never substance use type: does not use ROS Constitutional Constitutional: Reports weakness; Denies chills, fever(s) or weight gain ENT HEENT: Denies headache(s), nasal congestion or nasal discharge Cardiovascular Cardiovascular: Denies chest pain or palpitations Respiratory/Chest Respiratory/Chest: Denies cough, excessive phlegm production or shortness of breath with exertion Gastrointestinal Gastrointestinal: Denies abdominal pain, nausea or vomiting Genitourinary Genitourinary: Denies dysuria Musculoskeletal Musculoskeletal: Denies joint pain or joint swelling Integumentary Integumentary: Denies rash or wounds Neurologic Neurologic: Denies focal weakness, numbness or tingling Psychiatric Psychiatric: Denies anxiety, auditory hallucinations, depression, homicidal ideation or suicidal ideation Vital Signs (more content not included)... [facility] 03-05-2025 Note HNO ID: [id number] Author: MAGDA SQUIRES DO Service: Hospital Medicine Author Type: Physician Type: Progress Notes Filed: 03/05/2025 16:43 Note Text: INPATIENT PROGRESS NOTE DEPARTMENT OF HOSPITAL MEDICINE SERVICE DATE: 03/04/2025 NIGHT AND WEEKEND COVERAGE: From 7am - 7pm, please call Sound Attending After 7pm, please call cross cover pager #[phone] Subjective No acute events overnight. Underwent procedure on 03/04 without any complications. Has been tolerating full liquid diet this a.m. To be discharged by surgery today. No current facility-administered medications for this encounter. Objective PHYSICAL EXAM: BP 136/54 Pulse 50 Temp (Src) 98 (Oral) Resp 16 Ht 5' 9" (1.75m) Wt 141 lb 8.6 oz (64.2kg) SpO2 98% BMI 20.89 kg/(m2). Physical Exam Cardiovascular: Rate and Rhythm: Normal rate. Pulmonary: Effort: Pulmonary effort is normal. Breath sounds: Normal breath sounds. Abdominal: Palpations: Abdomen is soft. Neurological: General: No focal deficit present. Mental Status: He is alert and oriented to person, place, and time. DATA: WBC (k/uL) Date Value 03/05/2025 11.59 (H) Hemoglobin (g/dL) Date Value 03/05/2025 12.8 (L) Hematocrit (%) Date Value 03/05/2025 38.2 (L) MCV (fL) Date Value 03/05/2025 94.1 Platelet Count (k/uL) Date Value 03/05/2025 187 BUN (mg/dL) Date Value 03/05/2025 15 02/18/1999 13 Creatinine (mg/dL) Date Value 03/05/2025 0.35 02/18/1999 0.8 Sodium (mmol/L) Date Value 03/05/2025 136 02/18/1999 146 Potassium (mmol/L) Date Value 03/05/2025 5.0 02/18/1999 4.4 Alkaline Phosphatase (U/L) Date Value 02/27/2025 51 AST (U/L) Date Value 02/27/2025 18 ALT (U/L) Date Value 02/27/2025 11 I have reviewed today's vital signs, medications, labs, and imaging. Hospital Course: This is a 84 year old male with hx as per below who presents with abdominal pain, nausea and vomiting for the past three days. CT AP showed a large hiatal hernia w gastric outlet obstruction. An NG was placed with improvement of symptoms and was subsequently removed. Pt was admitted with GOO. Surgery and GI following. 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 GI and surgery consulted Underwent EGD 02/26: Grade C esophagitis with no bleeding. Gastric stenosis with edema and mild erythema in the gastric antrum, prepyloric and duodenal bulb surgical pathology is gastric mucosa with intestinal metaplasia Was initially started on PPN 03/03-unable to tolerate and discontinued Taken to the OR 03/04 for robotic paraesophageal hernia repair on 03/04 Problem List Gastric outlet obstruction (HCC) (POA: Yes) Primary hypertension (POA: Yes) Abnormal EKG (POA: Status not on file) Pre-operative cardiovascular examination (POA: Status not on file) Demand ischemia (HCC) (POA: Status not on file) At risk for delirium (POA: Yes) IBM (inclusion body myositis) (HCC) (POA: Status not on file) Goals of care, counseling/discussion (POA: Status not on file) Frailty syndrome in geriatric patient (POA: Status not on file) Constipation (POA: Status not on file) Abnormal stress test (POA: Status not on file) Severe protein-calorie malnutrition (HCC) (POA: Status not on file) Incarcerated hiatal hernia (POA: Status not on file) Assessment/Plan Gastric output obstruction Secondary to large hiatal hernia Tolerating liquid diet EGD 02/26: Grade C esophagitis with no bleeding. Gastric stenosis with edema and mild erythema in the gastric antrum, prepyloric and duodenal bulb surgical pathology is gastric mucosa with intestinal metaplasia Cardiac assessment for preop risk assessment: Chest with mild to moderate ischemia-medical management Underwent successfulrobotic paraesophageal hernia repair on 03/04 Tolerating FLD well - GI was consulted and has signed off - Surgery consulted Hypokalemia-resolved K 4.3 - CTM Hypertension - Continue lisinopril 10 mg daily - Continue metoprolol 25 mg daily Inclusion body myositis - Speech consult - Nutrition consulted - PT/OT CAD Troponinemia HST 81> 75 T wave inversions in anterolateral EKG-RBBB. Stress test-10 to 20% ischemia in RCA, less than 10% ischemia in left circumflex. Small fixed perfusion defect in RCA--> cardiology recommended medical management - Started on aspirin 81 mg daily and metoprolol 25 mg daily Hyponatremia-resolved NA 138 - Continue to monitor I reviewed: Most recent labs and imaging results. Most recent labs Most recent imaging Most recent EKG VTE Prophylaxis: Lovenox 40 mg daily Plan of care discussed with: Provider, RN, Patient and family at bedside. Agrees to plan. All questions and concerns answered to patient's satisfaction. I examined the patient and reviewed the chart. SIGNATURE: Magda Squires DO PATIENT NAME: Jeanie Rankin DATE: March 05, 2025 TIME: 5:32 PM (more content not included)... [facility] 03-05-2025 Note HNO ID: [id number] Author: HARLAN ANDREW, PRASANTH Service: Care Management Author Type: Registered Nurse Type: Care Mgt Progress Note Filed: 03/05/2025 12:42 Note Text: CARE MANAGEMENT PROGRESS NOTE SERVICE DATE: 03/05/2025 SERVICE TIME: 12:29 PM LOS: 8 days Post-Acute Discharge Planning Patient Goal(s): Better appetite, Better mobility [place] of Choice Explained: Discharge Planning Participant(s): Patient, Spouse/significant other Patient/Family Comments: Anticipated # of Days Until Discharge: 0 Transport at Discharge: Transportation Arrangements: Ambulance Transportation Agency and Phone #:: [facility] ( [facility] ) [phone] / [phone] Date of Trip: 03/05/25 Time of Trip: 1400 Type of Service: BLS Non-emergency Is Patient Medicaid Pending?: No Was transportation financial coverage discussed with family?: Patient Uat Tester Location: [facility] Destination: [facility] Financial Care Management Responsibility: None Needs Prior to Discharge: Needs Prior to Discharge: None, Ready for Discharge IMM Follow Up Copy Given: Yes Copy given to:: Patient Method: In Person Post-Acute Discharge Plan: Plan discharge to [facility] today at 2pm. Patient and spouse in agreement with plan. RN to call report and send AVS in envelope provided. SIGNATURE: Harlan Andrew RN PATIENT NAME: Jeanie Rankin DATE: March 05, 2025 TIME: 12:29 PM [facility] 03-05-2025 Note HNO ID: [id number] Author: BLAINE CASIANO MD Service: Care Management Author Type: Resident Type: Care Mgt Progress Note Filed: 03/05/2025 08:40 Note Text: Physician Certification of Less Than 30 Days Skilled Needs Earliest Possible Discharge Date: 03/05/25 To the best of my knowledge, all information provided about the individual is a true and an accurate reflection of Jeanie Rankin's needs. I certify that following the inpatient level of care, a post-acute nursing facility stay is required for less than 30 days related to the condition(s) for which the patient was treated during the inpatient level of care: Principal Problem: Gastric outlet obstruction (HCC) Active Problems: Primary hypertension Abnormal EKG Pre-operative cardiovascular examination Demand ischemia (HCC) At risk for delirium IBM (inclusion body myositis) (HCC) Goals of care, counseling/discussion Frailty syndrome in geriatric patient Constipation Abnormal stress test Severe protein-calorie malnutrition (HCC) Incarcerated hiatal hernia Resolved Problems: * No resolved hospital problems. * Attending Physician: Jose Hayes MD Agree with above Blaine Casiano MD [facility] 03-05-2025 Note HNO ID: [id number] Author: BLAINE CASIANO MD Service: General Surgery Author Type: Resident Type: Progress Notes Filed: 03/05/2025 07:33 Note Text: -- Attestation signed by Jose Hayes MD at 03/05/2025 5:02 PM Attending Note I evaluated the patient and personally participated in the [place] components. I agree with the resident's findings and plan as documented and have discussed the case and management of the patient's care with the resident. Signature: Jose Hayes MD Date: 03/05/2025 Time: 5:02 PM -- Resident Supervision of Medical Student I personally saw and examined the patient. I reviewed the medical student's note. I agree with the medical student's assessment and plan unless otherwise noted below. - Agree with below. Patient is POD1 from [facility]. Patient reports improvement of symptoms and able to tolerate full liquids better than before surgery. Denies nausea or vomiting. No BM since surgery. Plan for PT/OT and continue FLD. Signature: Blaine Casiano MD Date: 03/05/2025 Time: 7:21 AM MEDICAL STUDENT Elective General Surgery (Green Surgery) Progress Note This note was generated by a medical student working under the supervision of a resident and attending physician. When co-signed, the physical exam findings, assessment, and plan as written below are are considered accurate. SERVICE DATE: 03/05/2025 Elective General Surgery (Green Surgery) Service Pager: For questions or concerns Mon-Sun 6a-5p please page [phone]. After 5pm and on Weekends and Holidays, please page [phone] if in ICU or [phone] if on RNF. SUBJECTIVE: POD #1 RAL paraesophageal hernia. He reports he is feeling very good, denies any pain, n/v. He is tolerating his liquid diet without issue. Denies BM/flatus. Tolerating diet DIET LIQUID Nausea No Emesis No Flatus No Bowel movement No Pain Controlled Yes Ambulating No OBJECTIVE: Vitals: Temp (24hrs), Av.5 ?C (97.7 ?F), Min:36.2 ?C (97.2 ?F), Max:36.9 ?C (98.4 ?F) BP 141/61 Pulse (!) 50 Temp 36.9 ?C (98.4 ?F) (Oral) Resp 16 Ht 175.3 cm (5' 9") Wt 64.2 kg (141 lb 8.6 oz) SpO2 96% BMI 20.90 kg/m? O2 Therapy: Nasal Cannula IANDO: Date 03/04/25 07 - 03/05/25 0659 03/05/25 07 - 03/06/25 0659 Shift 6547-9345 0399-5600 6653-7114 24 Hour Total 5599-5429 8281-2574 8187-1035 24 Hour Total INTAKE IV 2400 2400 Volume (mL) (lactated ringers iv infusion) 2000 2000 Volume (mL) (lactated ringers iv infusion) 400 400 Shift Total 2400 2400 OUTPUT Urine 200 225 425 Void (ml) 200 225 425 Urine Not Saved. 1 x 1 x # of BMs Number of BMs 0 x 0 x 0 x Blood 100 100 Estimated Blood loss 100 100 Shift Total 300 225 525 Weight (kg) 64.2 64.2 64.2 64.2 64.2 64.2 64.2 64.2 MEDICATIONS Current Facility-Administered Medications Medication Dose Route Frequency lactated ringers iv infusion 75 mL/hr INTRAVENOUS CONTINUOUS ondansetron 4 mg tab(s) (ZOFRAN) 4 mg ORAL q 6 H Or ondansetron (PF) 4 mg injection (ZOFRAN) 4 mg INTRAVENOUS q 6 H enoxaparin 40 mg injection (LOVENOX) 40 mg SUBCUTANEOUS q 24 HR metoprolol tartrate (short acting) 25 mg tab(s) (LOPRESSOR) 25 mg ORAL q 12 H acetaminophen 1,000 mg CUP (TYLENOL) 1,000 mg ORAL q 6 H morphine 2 mg injection 2 mg INTRAVENOUS q 4 H PRN oxyCODONE 5 mg oral liquid (ROXICODONE) 5 mg ORAL q 4 H PRN aspirin 81 mg chewable tab(s) 81 mg ORAL DAILY Labs: Recent Labs 03/05/25 0438 03/04/25 0452 03/03/25 0427 NA 136 138 132* K 5.0 4.3 4.0 CHLOR 102 105 101 CO2 25 24 22 BUN 15 23 20 CREAT 0.35* 0.30* 0.31* GLUC 126* 102* 103* ANION 9 9 9 CA 8.3* 8.9 8.9 MG -- 1.8 1.8 P -- 2.9 3.0 WBC 11.59* 5.84 8.85 HB 12.8* 12.6* 13.1 HCT 38.2* 36.3* 37.1* PLT 187 181 158 Physical Exam: GENERAL: resting comfortably, in no acute distress HEENT: normocephalic, atraumatic, EOMI NECK: trachea midline, no JVD LUNGS: Unlabored breathing, equal chest rise bilaterally CARDIAC: Regular rate and rhythm as above ABDOMEN: Soft, non-tender, non-distended, no masses or organomegaly EXTREMITIES: VELASCO, No deformities, No edema SKIN: Skin color, texture, turgor normal, No rashes or lesions NEURO: AANDOx3, CN II-XII grossly intact PSYCH: normal mood and affect ASSESSMENT AND PLAN: Assessment Active Hospital Problems Diagnosis Date Noted Gastric outlet obstruction (HCC) 02/25/2025 Incarcerated hiatal hernia 03/02/2025 Severe protein-calorie malnutrition (HCC) 03/01/2025 At risk for delirium 02/27/2025 IBM (inclusion body myositis) (HCC) 02/27/2025 Goals of care, counseling/discussion 02/27/2025 Frailty syndrome in geriatric patient 02/27/2025 Constipation 02/27/2025 Abnormal stress test 02/27/2025 Abnormal EKG 02/26/2025 Pre-operative cardiovascular examination 02/26/2025 Demand ischemi (more content not included)... [facility] 03-05-2025 Note HNO ID: [id number] Author: NGUYEN NASH MD Service: General Surgery Author Type: Resident Type: Plan of Care Filed: 03/05/2025 01:28 Note Text: Plan of Care Post-Op Check Subjective: Patient seen and examined at the bedside. They are not tachycardic, hypotensive, or hypoxic. They confirm good pain control. They Deny nausea or vomiting. Overall feeling well after surgery and has been able to get some sleep. Objective: 03/04/25192903/04/25194403/04/25199903/04/252041 BP: 159/55 152/54 163/67 Pulse: 67 63 77 66 Resp: Temp: 36.3 ?C (97.3 ?F) 36.6 ?C (97.9 ?F) TempSrc: Temporal Oral SpO2: 100% 100% 99% 98% Weight: Height: Physical Exam: General: alert, resting comfortably in bed, no acute distress Lungs: Regular respiratory effort, good diaphragmatic excursion, on room air Chest: Regular rate, normotensive, good perfusion to distal extremities Abdomen: Soft, Appropriately tender to palpation, no rebound or guarding, incisions are clean, dry, intact without strikethrough on band-aids Assessment/Plan: - Continue current management - Pain and nausea control as ordered - Mobilize, IS - Tolerating Diet: DIET LIQUID Nguyen Nash MD General Surgery PGY-1 March [id number] AM [facility] 03-04-2025 Note HNO ID: [id number] Author: MAGDA SQUIRES DO Service: Hospital Medicine Author Type: Physician Type: Progress Notes Filed: 03/05/2025 16:43 Note Text: INPATIENT PROGRESS NOTE DEPARTMENT OF HOSPITAL MEDICINE SERVICE DATE: 03/04/2025 NIGHT AND WEEKEND COVERAGE: From 7am - 7pm, please call Sound Attending After 7pm, please call cross cover pager #[phone] Subjective No acute events overnight. Has been tolerating protein shakes from home yesterday. To be taken for surgery today. Current Facility-Administered Medications Medication Dose Route Frequency [Transfer Hold] NaCl 0.9% iv flush bag 20 mL INTRAVENOUS PRN [Transfer Hold] ondansetron (PF) 4 mg injection (ZOFRAN) 4 mg INTRAVENOUS q 6 H PRN [Transfer Hold] bisacodyl 10 mg suppository (DULCOLAX) 10 mg RECTAL q 72 HR [Transfer Hold] acetaminophen 1,000 mg CUP (TYLENOL) 1,000 mg ORAL q 6 H [Transfer Hold] morphine 2 mg injection 2 mg INTRAVENOUS q 4 H PRN [Transfer Hold] oxyCODONE 5 mg oral liquid (ROXICODONE) 5 mg ORAL q 4 H PRN [Transfer Hold] enoxaparin 40 mg injection (LOVENOX) 40 mg SUBCUTANEOUS q 24 HR [Transfer Hold] lisinopril 10 mg tab(s) (ZESTRIL) 10 mg ORAL DAILY [Transfer Hold] aspirin 81 mg chewable tab(s) 81 mg ORAL DAILY [Transfer Hold] metoprolol tartrate (short acting) 25 mg tab(s) (LOPRESSOR) 25 mg ORAL q 12 H [Transfer Hold] dextrose 5% in NaCl 0.45% iv infusion 30-150 mL/hr INTRAVENOUS PRN [Transfer Hold] sodium chloride 0.65 % 2 spray 2 spray EACH NOSTRIL BID bupivacaine-EPINEPHrine (PF) 0.5 %-1:200,000 injection (SENSORCAINE MPF/EPINEPHrine) X (OR/PROCEDURE) PRN water for irrigation irrigation X (OR/PROCEDURE) PRN Facility-Administered Medications Ordered in Other Encounters Medication Dose Route Frequency ceFAZolin iv piggyback 2 g in D5W (iso-osmotic) 100 mL (ANCEF) INTRAVENOUS PRN glycopyrrolate injection (ROBINUL) INTRAVENOUS PRN atracurium injection (TRACRIUM) INTRAVENOUS PRN PHENYLephrine 10 mg in NaCl 0.9% 250 mL (BRENDA-SYNEPHRINE) INTRAVENOUS X (ONE-STEP ONLY) CONTINUOUS PRN lactated ringers iv infusion INTRAVENOUS X (ONE-STEP ONLY) CONTINUOUS PRN lactated ringers iv infusion INTRAVENOUS X (ONE-STEP ONLY) CONTINUOUS PRN propofol injection (DIPRIVAN) INTRAVENOUS PRN fentaNYL 50 mcg/mL injection (SUBLIMAZE) INTRAVENOUS PRN lidocaine (PF) 20 mg/mL (2 %) injection (XYLOCAINE) INTRAVENOUS PRN dexAMETHasone sodium phosphate injection (DECADRON) INTRAVENOUS PRN ondansetron (PF) injection (ZOFRAN) INTRAVENOUS PRN famotidine injection (PEPCID) INTRAVENOUS PRN PHENYLephrine 10 mg/mL injection (BRENDA-SYNEPHRINE) INTRAVENOUS PRN Objective PHYSICAL EXAM: BP 159/60 Pulse 59 Temp (Src) 97.7 (Temporal) Resp 16 Ht 5' 9" (1.75m) Wt 141 lb 8.6 oz (64.2kg) SpO2 97% BMI 20.89 kg/(m2). O2 Therapy: Room Air Physical Exam DATA: WBC (k/uL) Date Value 03/04/2025 5.84 Hemoglobin (g/dL) Date Value 03/04/2025 12.6 (L) Hematocrit (%) Date Value 03/04/2025 36.3 (L) MCV (fL) Date Value 03/04/2025 91.9 Platelet Count (k/uL) Date Value 03/04/2025 181 BUN (mg/dL) Date Value 03/04/2025 23 02/18/1999 13 Creatinine (mg/dL) Date Value 03/04/2025 0.30 02/18/1999 0.8 Sodium (mmol/L) Date Value 03/04/2025 138 02/18/1999 146 Potassium (mmol/L) Date Value 03/04/2025 4.3 02/18/1999 4.4 Alkaline Phosphatase (U/L) Date Value 02/27/2025 51 AST (U/L) Date Value 02/27/2025 18 ALT (U/L) Date Value 02/27/2025 11 I have reviewed today's vital signs, medications, labs, and imaging. Hospital Course: This is a 84 year old male with hx as per below who presents with abdominal pain, nausea and vomiting for the past three days. CT AP showed a large hiatal hernia w gastric outlet obstruction. An NG was placed with improvement of symptoms and was subsequently removed. Pt was admitted with GOO. Surgery and GI following. 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 GI and surgery consulted Underwent EGD 02/26: Grade C esophagitis with no bleeding. Gastric stenosis with edema and mild erythema in the gastric antrum, prepyloric and duodenal bulb surgical pathology is gastric mucosa with intestinal metaplasia Was initially started on PPN 03/03-unable to tolerate and discontinued Taken to the OR for robotic paraesophageal hernia repair on 03/04 Problem List Gastric outlet obstruction (HCC) (POA: Yes) Primary hypertension (POA: Yes) Abnormal EKG (POA: Status not on file) Pre-operative cardiovascular examination (POA: Status not on file) Demand ischemia (HCC) (POA: Status not on file) At risk for delirium (POA: Yes) IBM (inclusion body myositis) (HCC) (POA: Status not on file) Goals of care, counseling/discussion (POA: Status not on file) Frailty syndrome in geriatric patient (POA: Status not on file) Constipation (POA: Status not on file) Abnormal stress test (POA: Status not on file) Severe protein-calorie malnutrition (more content not included)... [facility] 03-04-2025 Note HNO ID: [id number] Author: GABBY CHEN APRN.CRNA Service: Nursing Author Type: Nurse Code Enforcement Inspector Type: Anesthesia Procedure Notes Filed: 03/04/2025 15:50 Note Text: ANESTHESIOLOGY PROCEDURE NOTE Airway General Information Procedure Start Time/Medication Administration: 03/04/2025 3:18 PM Procedure End Time: 03/04/2025 3:18 PM Patient location during procedure: OR Patient identity confirmed: arm band and patient Staffing Anesthesiologist: Naya Aguilera MD HAZMAT TECHNICIAN: Gabby Chen APRN.HAZMAT TECHNICIAN Performed by: MARLY Indications and Patient Condition Indications for airway management: anesthesia and airway protection Preoxygenated: yes anesthesia circuit Patient position: sniffing Method: asleep Cricoid Pressure: No Manual In-Line Stabilization: No Difficult Mask: No Final Airway Details Final airway type: endotracheal airwayFinal Endotracheal Airway: ETT Cuffed: yes Successful intubation technique: video laryngoscopy Devices used: intubating stylet Endotracheal tube insertion site: oral Blade: Lila Blade size: #4 ETT size (mm): 8.0 Measured from: lips Measurement (cm): 22 Placement verified by: capnometry Cormack-Lehane Classification: grade I - full view of glottis Number of attempts at approach: 1 Failed airway: no Unrecognized esophageal intubation: no Airway not difficult SIGNATURE: Gabby Chen APRN.CRNA PATIENT NAME: Jeanie Rankin DATE: March 04, 2025 TIME: 3:49 PM CSN: [id number] [facility] 03-04-2025 Note HNO ID: [id number] Author: AYAZ MERINO LISW Service: Care Management Author Type: Field Engineer Type: Care Mgt Progress Note Filed: 03/04/2025 14:09 Note Text: CARE MANAGEMENT PROGRESS NOTE SERVICE DATE: 03/04/2025 SERVICE TIME: 11:05 AM LOS: 7 days Patient on the schedule for surgery today for hernia repair. Plan is [facility] once medically ready and bed available. No precert needed. Will need cot transport. Met with patient, , and son at bedside and discussed. Facility wants updated notes and therapy after surgery. Addendum: cot transport form completed, transport packet and portable DNR on chart. DNR will need completed and placed in packet for DC. SIGNATURE: JERRY Baltazar PATIENT NAME: Jeanie Rankin DATE: March 04, 2025 TIME: 11:05 AM [facility] 03-04-2025 Note HNO ID: [id number] Author: ANNE STUBBS DO Service: General Surgery Author Type: Resident Type: Progress Notes Filed: 03/04/2025 08:14 Note Text: -- Attestation signed by Jose Hayes MD at 03/04/2025 1:28 PM Attending Note I evaluated the patient and personally participated in the [place] components. I agree with the resident's findings and plan with the following revisions and/or additions: OR today for Paraesophageal hernia repair Risks of surgery explained Cardiac high risk Patient gave consent given his mobility issue and signature however patient gave verbal consent and understanding. Signature: Jose Hayes MD Date: 03/04/2025 Time: 1:27 PM -- Elective General Surgery (Green Surgery) Progress Note SERVICE DATE: March 04, 2025 Elective General Surgery (Green Surgery) Service Pager: For questions or concerns Mon-Fri 6a-5p please page [phone]. After 5pm and on Weekends and Holidays, please page [phone]. SUBJECTIVE: Doing well. Tolerated protein shakes yesterday. Ready for surgery today. Tolerating diet DIET NPO OBJECTIVE: Vitals: Temp (24hrs), Av.1 ?C (98.7 ?F), Min:36.3 ?C (97.3 ?F), Max:37.9 ?C (100.3 ?F) BP (!) 128/46 Pulse (!) 51 Temp 36.7 ?C (98.1 ?F) (Oral) Resp 16 Ht 175.3 cm (5' 9") Wt 64.2 kg (141 lb 8.6 oz) SpO2 95% BMI 20.90 kg/m? O2 Therapy: Room Air IANDO: Date 03/03/25 07 - 03/04/25 0659 03/04/25 0700 - 03/05/25 0659 Shift 0567-0785 4087-4057 0713-4746 24 Hour Total 6224-8639 0878-5461 4595-6305 24 Hour Total INTAKE PO 120 120 PO 120 120 Shift Total 120 120 OUTPUT Urine 401 740 9583 Void (ml) 857 621 6055 Urine Not Saved. 1 x 1 x # of BMs Stool Incontinence 1 x 1 x Number of BMs 0 x 0 x Shift Total 918 353 8786 Weight (kg) 64.2 64.2 64.2 64.2 64.2 64.2 64.2 64.2 MEDICATIONS: Current Facility-Administered Medications Medication Dose Route Frequency sodium chloride 0.65 % 2 spray 2 spray EACH NOSTRIL BID dextrose 5% in NaCl 0.45% iv infusion 30-150 mL/hr INTRAVENOUS PRN metoprolol tartrate (short acting) 25 mg tab(s) (LOPRESSOR) 25 mg ORAL q 12 H bisacodyl 10 mg suppository (DULCOLAX) 10 mg RECTAL q 72 HR acetaminophen 1,000 mg CUP (TYLENOL) 1,000 mg ORAL q 6 H morphine 2 mg injection 2 mg INTRAVENOUS q 4 H PRN oxyCODONE 5 mg oral liquid (ROXICODONE) 5 mg ORAL q 4 H PRN [Order Held by LIP] enoxaparin 40 mg injection (LOVENOX) 40 mg SUBCUTANEOUS q 24 HR [Order Held by LIP] lisinopril 10 mg tab(s) (ZESTRIL) 10 mg ORAL DAILY aspirin 81 mg chewable tab(s) 81 mg ORAL DAILY NaCl 0.9% iv flush bag 20 mL INTRAVENOUS PRN ondansetron (PF) 4 mg injection (ZOFRAN) 4 mg INTRAVENOUS q 6 H PRN Labs: Recent Labs 03/04/25 0452 03/03/25 0427 NA 138 132* K 4.3 4.0 CHLOR 105 101 CO2 24 22 BUN 23 20 CREAT 0.30* 0.31* GLUC 102* 103* ANION 9 9 CA 8.9 8.9 MG 1.8 1.8 P 2.9 3.0 WBC 5.84 8.85 HB 12.6* 13.1 HCT 36.3* 37.1* PLT 181 158 Physical Exam: GENERAL: resting comfortably, in no acute distress HEENT: normocephalic, atraumatic, EOMI NECK: trachea midline, no JVD LUNGS: Unlabored breathing, equal chest rise bilaterally CARDIAC: Regular rate, warm extremities, good perfusion throughout ABDOMEN: Soft, non-tender, non-distended. No rebound or guarding. EXTREMITIES: VELASCO, No deformities, No edema SKIN: Skin color, texture, turgor normal, No rashes or lesions NEURO: AANDO, no gross motor or sensory deficits PSYCH: normal mood and affect ASSESSMENT AND PLAN: Assessment Active Hospital Problems Diagnosis Date Noted Gastric outlet obstruction (HCC) 02/25/2025 Incarcerated hiatal hernia 03/02/2025 Severe protein-calorie malnutrition (HCC) 03/01/2025 At risk for delirium 02/27/2025 IBM (inclusion body myositis) (HCC) 02/27/2025 Goals of care, counseling/discussion 02/27/2025 Frailty syndrome in geriatric patient 02/27/2025 Constipation 02/27/2025 Abnormal stress test 02/27/2025 Abnormal EKG 02/26/2025 Pre-operative cardiovascular examination 02/26/2025 Demand ischemia (HCC) 02/26/2025 Primary hypertension 10/06/2005 Assessment: 84 year old male w/ below medical hx admitted 02/24 for GOO. Obstructive symptoms started roughly [address] significant for large hiatal hernia w/ stomach and duodenum and mentioned GOO. Hospital Course/Operations/Procedures: 03/04/2025 Procedure(s): ROBOTIC LAPAROSCOPIC RPR PARAESOHAGEAL HERNIA W/ FUNDOPLASTY W/ MESH Plan: GOO 2/2 Large Hiatal Hernia - Plan for surgery today, consented and added - NPO for now, NST following- refused PPN preop - Cards consulted for preop risk assessment: Stress test with moderate to mild ischemia, plan to medically manage and minimize OR time Lisinopril, Lopressor and ASA per cards Anticipated Discharge Disposition: Pending (more content not included)... [facility] 03-03-2025 Note HNO ID: [id number] Author: KAREEM PEREZ DO Service: Hospital Medicine Author Type: Physician Type: Progress Notes Filed: 03/03/2025 12:06 Note Text: DEPARTMENT OF HOSPITAL MEDICINE PROGRESS NOTE SERVICE DATE: March 03, 2025 SERVICE TIME: 12:02 PM Hospital Medicine/Primary Attending: KAREEM PEREZ DO, DO NIGHT AND WEEKEND COVERAGE: After 7pm please page [phone] INTERVAL HPI: Follow up GOO NG remains out. On full liquids. Bp 153/64 today. Pt had nose bleed today that has resolved. Surgery planning for tomorrow MEDICATIONS: Current Facility-Administered Medications Medication Dose Route Frequency NaCl 0.9% iv flush bag 20 mL INTRAVENOUS PRN ondansetron (PF) 4 mg injection (ZOFRAN) 4 mg INTRAVENOUS q 6 H PRN bisacodyl 10 mg suppository (DULCOLAX) 10 mg RECTAL q 72 HR acetaminophen 1,000 mg CUP (TYLENOL) 1,000 mg ORAL q 6 H morphine 2 mg injection 2 mg INTRAVENOUS q 4 H PRN oxyCODONE 5 mg oral liquid (ROXICODONE) 5 mg ORAL q 4 H PRN enoxaparin 40 mg injection (LOVENOX) 40 mg SUBCUTANEOUS q 24 HR lisinopril 10 mg tab(s) (ZESTRIL) 10 mg ORAL DAILY aspirin 81 mg chewable tab(s) 81 mg ORAL DAILY metoprolol tartrate (short acting) 25 mg tab(s) (LOPRESSOR) 25 mg ORAL q 12 H dextrose 5% in NaCl 0.45% iv infusion 30-150 mL/hr INTRAVENOUS PRN Parenteral Nutrition - Adult INTRAVENOUS ONCE PN (1800 START) sodium chloride 0.65 % 2 spray 2 spray EACH NOSTRIL BID DATA: Diagnostic tests reviewed for today's visit: Lab data: CBC: Recent Labs 03/03/2542603/02/2560203/01/25 0011 02/28/25 0141 02/27/25 0605 02/26/25 0437 02/25/25 0332 WBC 8.85 5.53 6.50 6.43 6.76 6.77 8.90 HB 13.1 12.9* 12.1* 12.0* 12.4* 12.1* 13.8 HCT 37.1* 37.1* 36.0* 36.4* 37.9* 36.1* 40.1 PLT 158 164 150 146* 173 174 227 MCV 90.5 92.1 93.8 96.8 97.7 95.0 92.6 RDWCV 12.0 12.0 12.1 12.4 12.5 12.5 12.6 NEUTP -- -- -- -- -- 65.9 -- ABSNEUT -- -- -- -- -- 4.46 -- LYMPHP -- -- -- -- -- 17.4 -- MONOP -- -- -- -- -- 15.8 -- EODINP -- -- -- -- -- 0.3 -- COAG: No results for input(s): "APTT", "INR" in the last 168 hours. BMP: Recent Labs 03/03/2542603/02/2503 03/01/25 0011 02/28/25 0141 02/27/25 0605 02/26/25 1356 02/26/25 0437 02/25/25 0332 GLUC 103* 91 97 111* 81 74 85 137* NA 132* 138 135* 143 149* 148* 146* 143 K 4.0 4.0 3.7 3.6* 3.5* 3.4* 2.6* 3.2* CHLOR 101 104 100 102 102 100 99 94* CO2 22 25 28 33* 35* 36* 37* 39* ANION 9 9 7* 8 12 12 10 10 BUN 20 13 13 26* 29* 22 22 20 CREAT 0.31* 0.31* 0.31* 0.35* 0.46* 0.45* 0.40* 0.55* CHEM: Recent Labs 03/03/25 0427 03/02/25 0603 03/01/25 0011 02/28/25 0141 02/27/25 0605 02/26/25 1356 02/26/25 0437 02/25/25 0332 ALB -- -- -- -- 3.5* -- 3.5* -- TPROT -- -- -- -- 6.1* -- 6.1* -- CA 8.9 8.9 8.3* 8.6 9.1 9.3 9.3 9.7 MG 1.8 1.7 -- 2.1 2.2 -- 2.3 -- HEPATIC: Recent Labs 02/27/25 0602/26/25436 ALKPHOS 51 51 ALT 11 11 AST 18 20 TBILI 0.7 0.6 URINALYSIS:No results for input(s): "PH", "SPGR", "UGLUC", "UBILI", "UKET", "UHB", "UPROT", "UROBIL", "UWBC", "SSA" in the last 168 hours. Invalid input(s): "NITR" CARDIAC: No results for input(s): "PBNP" in the last 168 hours. PHYSICAL EXAM: BP 153/64 Pulse 61 Temp (Src) 98 (Oral) Resp 18 Ht 5' 9" (1.75m) Wt 141 lb 8.6 oz (64.2kg) SpO2 95% BMI 20.89 kg/(m2). O2 Therapy: Room Air Physical Exam Constitutional: Comments: Elderly chronically unwell sitting upright NG out HENT: Nose: Congestion present. Cardiovascular: Rate and Rhythm: Normal rate and regular rhythm. Pulmonary: Effort: Pulmonary effort is normal. Breath sounds: Normal breath sounds. Abdominal: General: Abdomen is flat. Palpations: Abdomen is soft. Skin: General: Skin is warm and dry. Neurological: Mental Status: He is alert. HOSPITAL COURSE: This is a 84 year old male with hx as per below who presents with abdominal pain, nausea and vomiting for the past three days. CT AP showed a large hiatal hernia w gastric outlet obstruction. An NG was placed. Pt was admitted with GOO. Surgery and GI following. 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 Follow up GI and surgery recs Problem List Gastric outlet obstruction (HCC) (POA: Yes) Primary hypertension (POA: Yes) Abnormal EKG (POA: Status not on file) Pre-operative cardiovascular examination (POA: Status not on file) Demand ischemia (HCC) (POA: Status not on file) At risk for delirium (POA: Yes) IBM (inclusion body myositis) (HCC) (POA: Status not on file) Goals of care, counseling/discussion (POA: Status not on file) Frailty syndrome in geriatric patient (POA: Status not on file) Constipation (POA: Status not on file) Abnormal stress test (POA: Status not on file) Severe protein-calorie malnutrition (HCC) (POA: Status not on file) Incarcerated hiatal hernia (POA: Status not on file) Impression CONCLUSIONS: - Technically difficult exam due t (more content not included)... [facility] 03-03-2025 Note HNO ID: [id number] Author: BLAINE CASIANO MD Service: General Surgery Author Type: Resident Type: Progress Notes Filed: 03/03/2025 07:41 Note Text: -- Attestation signed by Jose Hayes MD at 03/04/2025 1:26 PM Attending Note I evaluated the patient and personally participated in the [place] components. I agree with the resident's findings and plan with the following revisions and/or additions: Plan for surgery tomorrow Tolerating liquid diet at this time Hold on PPN Signature: Jose Hayes MD Date: 03/04/2025 Time: 1:25 PM -- Resident Supervision of Medical Student I personally saw and examined the patient. I reviewed the medical student's note. I agree with the medical student's assessment and plan unless otherwise noted below. - Agree with below. Patient reports he was unable to tolerate PPN and had an episode of chest tightness and reported his legs felt heavy when the PPN started. PPN was stopped and symptoms subsided. Patient reports he is having bowel function. Denies nausea or vomiting. Patient was febrile overnight, denies any chest pain currently, Shortness of Breath, or cough. Hr also dewnies any urinary symptoms. Will continue to monitor. If fever persists will obtain infectious workup. Will plan for surgery tomorrow. Signature: Blaine Casiano MD Date: 03/03/2025 Time: 7:35 AM MEDICAL STUDENT Elective General Surgery (Green Surgery) Progress Note This note was generated by a medical student working under the supervision of a resident and attending physician. When co-signed, the physical exam findings, assessment, and plan as written below are are considered accurate. SERVICE DATE: 03/03/2025 Elective General Surgery (Green Surgery) Service Pager: For questions or concerns Mon-Fri 6a-5p please page [phone]. After 5pm and on Weekends and Holidays, please page [phone] if in ICU or [phone] if on RNF. SUBJECTIVE: Pt tolerated PPN for about 10 minutes before c/o b/l leg pain and chest/back pressure/pain. PPN was stopped and not restarted. Pain resolved quickly. EKG and CXR unrevealing. He has not had episodes of chest pain since. He states he had one BM last night. Was able to drink 4 protein shakes from home, no N/V abd pain. He did fever once overnight Tmax 101.3. Tolerating diet DIET LIQUID DIET NPO Parenteral Nutrition - Adult Nausea No Emesis No Flatus Yes Bowel movement Yes Pain Controlled Yes Ambulating No OBJECTIVE: Vitals: Temp (24hrs), Av.7 ?C (99.9 ?F), Min:36.8 ?C (98.2 ?F), Max:39.3 ?C (102.8 ?F) BP 142/61 Pulse 60 Temp 37.4 ?C (99.4 ?F) (Oral) Resp 18 Ht 175.3 cm (5' 9") Wt 64.2 kg (141 lb 8.6 oz) SpO2 93% BMI 20.90 kg/m? O2 Therapy: Room Air IANDO: Date 03/02/25699 - 03/03/2565803/03/25699 - 03/04/25 0659 Shift 5653-6556 8239-4321 3275-1015 24 Hour Total 3535-3097 0733-4887 9622-6014 24 Hour Total INTAKE PO 100 100 PO 100 100 Shift Total 100 100 OUTPUT Urine 450 450 900 Void (ml) 450 450 900 Shift Total 450 450 900 Weight (kg) 64.2 64.2 64.2 64.2 64.2 64.2 64.2 64.2 MEDICATIONS Current Facility-Administered Medications Medication Dose Route Frequency dextrose 5% in NaCl 0.45% iv infusion 30-150 mL/hr INTRAVENOUS PRN Parenteral Nutrition - Adult INTRAVENOUS ONCE PN (1800 START) metoprolol tartrate (short acting) 25 mg tab(s) (LOPRESSOR) 25 mg ORAL q 12 H bisacodyl 10 mg suppository (DULCOLAX) 10 mg RECTAL q 72 HR acetaminophen 1,000 mg CUP (TYLENOL) 1,000 mg ORAL q 6 H morphine 2 mg injection 2 mg INTRAVENOUS q 4 H PRN oxyCODONE 5 mg oral liquid (ROXICODONE) 5 mg ORAL q 4 H PRN enoxaparin 40 mg injection (LOVENOX) 40 mg SUBCUTANEOUS q 24 HR lisinopril 10 mg tab(s) (ZESTRIL) 10 mg ORAL DAILY aspirin 81 mg chewable tab(s) 81 mg ORAL DAILY NaCl 0.9% iv flush bag 20 mL INTRAVENOUS PRN ondansetron (PF) 4 mg injection (ZOFRAN) 4 mg INTRAVENOUS q 6 H PRN Labs: Recent Labs 03/03/25 0427 03/02/25 0603 NA 132* 138 K 4.0 4.0 CHLOR 101 104 CO2 22 25 BUN 20 13 CREAT 0.31* 0.31* GLUC 103* 91 ANION 9 9 CA 8.9 8.9 MG 1.8 1.7 P 3.0 2.8 WBC 8.85 5.53 HB 13.1 12.9* HCT 37.1* 37.1* PLT 158 164 Physical Exam: GENERAL: resting comfortably, in no acute distress HEENT: normocephalic, atraumatic, EOMI NECK: trachea midline, no JVD LUNGS: Unlabored breathing, equal chest rise bilaterally CARDIAC: Regular rate and rhythm as above ABDOMEN: Soft, non-tender, non-distended, no masses or organomegaly EXTREMITIES: VELASCO, No deformities, No edema SKIN: Skin color, texture, turgor normal, No rashes or lesions NEURO: AANDOx3, CN II-XII grossly intact PSYCH: normal mood and affect ASSESSMENT AND PLAN: Assessment Active Hospital Problems Diagnosis Date Noted Gastric outlet obstruction (HCC) (more content not included)... [facility] 03-02-2025 Note HNO ID: [id number] Author: HARLAN ANDREW RN Service: Care Management Author Type: Registered Nurse Type: Care Mgt Progress Note Filed: 03/02/2025 15:39 Note Text: CARE MANAGEMENT PROGRESS NOTE SERVICE DATE: 03/02/2025 SERVICE TIME: 3:38 PM LOS: 5 days [facility] accepted. Patient and spouse informed. Plan discharge to [facility] when medically stable. Sx planned for 03/04. . SIGNATURE: Harlan Andrew RN PATIENT NAME: Jeanie Rankin DATE: March 02, 2025 TIME: 3:38 PM [facility] 03-02-2025 Note HNO ID: [id number] Author: KAREEM PEREZ DO Service: Hospital Medicine Author Type: Physician Type: Progress Notes Filed: 03/02/2025 11:55 Note Text: DEPARTMENT OF HOSPITAL MEDICINE PROGRESS NOTE SERVICE DATE: March 02, 2025 SERVICE TIME: 11:50 AM Hospital Medicine/Primary Attending: KAREEM PEREZ DO, DO NIGHT AND WEEKEND COVERAGE: After 7pm please page [phone] INTERVAL HPI: Follow up GOO NG remains out. On full liquids. Bp 153/60 today. Na 138 stable at bedside. Admits to having ongoing dysphagia issues MEDICATIONS: Current Facility-Administered Medications Medication Dose Route Frequency NaCl 0.9% iv flush bag 20 mL INTRAVENOUS PRN ondansetron (PF) 4 mg injection (ZOFRAN) 4 mg INTRAVENOUS q 6 H PRN sodium chloride 0.9 % (flush) 2-10 mL (BD POSIFLUSH) 2-10 mL INTRAVENOUS DIRECTED PRN bisacodyl 10 mg suppository (DULCOLAX) 10 mg RECTAL q 72 HR acetaminophen 1,000 mg CUP (TYLENOL) 1,000 mg ORAL q 6 H morphine 2 mg injection 2 mg INTRAVENOUS q 4 H PRN oxyCODONE 5 mg oral liquid (ROXICODONE) 5 mg ORAL q 4 H PRN enoxaparin 40 mg injection (LOVENOX) 40 mg SUBCUTANEOUS q 24 HR lisinopril 10 mg tab(s) (ZESTRIL) 10 mg ORAL DAILY aspirin 81 mg chewable tab(s) 81 mg ORAL DAILY lactated ringers iv infusion 50 mL/hr INTRAVENOUS CONTINUOUS metoprolol tartrate (short acting) 25 mg tab(s) (LOPRESSOR) 25 mg ORAL q 12 H DATA: Diagnostic tests reviewed for today's visit: Lab data: CBC: Recent Labs 03/02/25 0603 03/01/25 0011 02/28/25 0141 02/27/25 0605 02/26/25 0437 02/25/25 0332 WBC 5.53 6.50 6.43 6.76 6.77 8.90 HB 12.9* 12.1* 12.0* 12.4* 12.1* 13.8 HCT 37.1* 36.0* 36.4* 37.9* 36.1* 40.1 PLT 164 150 146* 173 174 227 MCV 92.1 93.8 96.8 97.7 95.0 92.6 RDWCV 12.0 12.1 12.4 12.5 12.5 12.6 NEUTP -- -- -- -- 65.9 -- ABSNEUT -- -- -- -- 4.46 -- LYMPHP -- -- -- -- 17.4 -- MONOP -- -- -- -- 15.8 -- EODINP -- -- -- -- 0.3 -- COAG: No results for input(s): "APTT", "INR" in the last 168 hours. BMP: Recent Labs 03/02/25 0603 03/01/25 0011 02/28/25 0141 02/27/25 0605 02/26/25 1356 02/26/25 0437 02/25/25 0332 GLUC 91 97 111* 81 74 85 137* NA 138 135* 143 149* 148* 146* 143 K 4.0 3.7 3.6* 3.5* 3.4* 2.6* 3.2* CHLOR 104 100 102 102 100 99 94* CO2 25 28 33* 35* 36* 37* 39* ANION 9 7* 8 12 12 10 10 BUN 13 13 26* 29* 22 22 20 CREAT 0.31* 0.31* 0.35* 0.46* 0.45* 0.40* 0.55* CHEM: Recent Labs 03/02/25 0603/01/25 0011 02/28/25 0141 02/27/25 0605 02/26/25 1356 02/26/25 0437 02/25/25 0332 ALB -- -- -- 3.5* -- 3.5* -- TPROT -- -- -- 6.1* -- 6.1* -- CA 8.9 8.3* 8.6 9.1 9.3 9.3 9.7 MG -- -- 2.1 2.2 -- 2.3 -- HEPATIC: Recent Labs 02/27/2560402/26/25436 ALKPHOS 51 51 ALT 11 11 AST 18 20 TBILI 0.7 0.6 URINALYSIS:No results for input(s): "PH", "SPGR", "UGLUC", "UBILI", "UKET", "UHB", "UPROT", "UROBIL", "UWBC", "SSA" in the last 168 hours. Invalid input(s): "NITR" CARDIAC: No results for input(s): "PBNP" in the last 168 hours. PHYSICAL EXAM: BP 165/69 Pulse 54 Temp (Src) 98.2 (Oral) Resp 17 Ht 5' 9" (1.75m) Wt 141 lb 8.6 oz (64.2kg) SpO2 95% BMI 20.89 kg/(m2). O2 Therapy: Room Air Physical Exam Constitutional: Comments: Elderly chronically unwell sitting upright NG out Cardiovascular: Rate and Rhythm: Regular rhythm. Bradycardia present. Pulmonary: Effort: Pulmonary effort is normal. Breath sounds: Normal breath sounds. Abdominal: General: Abdomen is flat. Palpations: Abdomen is soft. Skin: General: Skin is warm and dry. Neurological: Mental Status: He is alert. HOSPITAL COURSE: This is a 84 year old male with hx as per below who presents with abdominal pain, nausea and vomiting for the past three days. CT AP showed a large hiatal hernia w gastric outlet obstruction. An NG was placed. Pt was admitted with GOO. Surgery and GI following. 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 Follow up GI and surgery recs Problem List Gastric outlet obstruction (HCC) (POA: Yes) Primary hypertension (POA: Yes) Abnormal EKG (POA: Status not on file) Pre-operative cardiovascular examination (POA: Status not on file) Demand ischemia (HCC) (POA: Status not on file) At risk for delirium (POA: Yes) IBM (inclusion body myositis) (HCC) (POA: Status not on file) Goals of care, counseling/discussion (POA: Status not on file) Frailty syndrome in geriatric patient (POA: Status not on file) Constipation (POA: Status not on file) Abnormal stress test (POA: Status not on file) Severe protein-calorie malnutrition (HCC) (POA: Status not on file) Impression CONCLUSIONS: - Technically difficult exam due to suboptimal positioning. - Exam indication: Abnormal ECG - The left ventricle is normal in size. Left ventricular systolic function is hyperdynamic. EF = 74 ? 5% (2D biplane) Definity contrast used for endocardial border detection. Normal left ventricu (more content not included)... [facility] 03-02-2025 Note HNO ID: [id number] Author: BLAINE CASIANO MD Service: General Surgery Author Type: Resident Type: Progress Notes Filed: 03/02/2025 07:32 Note Text: -- Attestation signed by Jose Hayes MD at 03/02/2025 4:07 PM Attending Note I evaluated the patient and personally participated in the [place] components. I agree with the resident's findings and plan as documented and have discussed the case and management of the patient's care with the resident. Signature: Jose Hayes MD Date: 03/02/2025 Time: 4:07 PM -- Resident Supervision of Medical Student I personally saw and examined the patient. I reviewed the medical student's note. I agree with the medical student's assessment and plan unless otherwise noted below. - Agree with below. Patient denies any nausea or vomiting. Tolerating protein shakes. AM Labs unremarkable. Will plan on NST to start PPN today and plan for surgery Sunday for Robotic PEHr. Signature: Blaine Casiano MD Date: 03/02/2025 Time: 7:30 AM MEDICAL STUDENT Elective General Surgery (Green Surgery) Progress Note This note was generated by a medical student working under the supervision of a resident and attending physician. When co-signed, the physical exam findings, assessment, and plan as written below are are considered accurate. SERVICE DATE: 03/02/2025 Elective General Surgery (Green Surgery) Service Pager: For questions or concerns Mon-Sun 6a-5p please page [phone]. After 5pm and on Weekends and Holidays, please page [phone] if in ICU or [phone] if on RNF. SUBJECTIVE: DAVIS. Continues to pass flatus, no BM. He drank 3 protein shakes (premier protein) that his brought him. He is refusing any hospital supplied b/c he is used to the ones at home. We did discuss PPN, which he is amendable to starting. Denies n/v or pain. Tolerating diet DIET LIQUID Nausea No Emesis No Flatus Yes Bowel movement No Pain Controlled Yes Ambulating No OBJECTIVE: Vitals: Temp (24hrs), Av ?C (98.6 ?F), Min:36.6 ?C (97.9 ?F), Max:37.3 ?C (99.2 ?F) BP 153/60 Pulse (!) 54 Temp 37.1 ?C (98.7 ?F) (Oral) Resp 16 Ht 175.3 cm (5' 9") Wt 64.2 kg (141 lb 8.6 oz) SpO2 94% BMI 20.90 kg/m? O2 Therapy: Room Air IANDO: Date 03/01/25 07 - 03/02/25 0659 03/02/25 07 - 03/03/25 0659 Shift 3802-2691 9503-5461 2432-7899 24 Hour Total 3725-1380 3245-9700 8207-7387 24 Hour Total INTAKE Shift Total OUTPUT Urine 500 500 Void (ml) 500 500 Shift Total 500 500 Weight (kg) 64.2 64.2 64.2 64.2 64.2 64.2 64.2 64.2 MEDICATIONS Current Facility-Administered Medications Medication Dose Route Frequency metoprolol tartrate (short acting) 25 mg tab(s) (LOPRESSOR) 25 mg ORAL q 12 H bisacodyl 10 mg suppository (DULCOLAX) 10 mg RECTAL q 72 HR acetaminophen 1,000 mg CUP (TYLENOL) 1,000 mg ORAL q 6 H morphine 2 mg injection 2 mg INTRAVENOUS q 4 H PRN oxyCODONE 5 mg oral liquid (ROXICODONE) 5 mg ORAL q 4 H PRN enoxaparin 40 mg injection (LOVENOX) 40 mg SUBCUTANEOUS q 24 HR lisinopril 10 mg tab(s) (ZESTRIL) 10 mg ORAL DAILY aspirin 81 mg chewable tab(s) 81 mg ORAL DAILY lactated ringers iv infusion 50 mL/hr INTRAVENOUS CONTINUOUS sodium chloride 0.9 % (flush) 2-10 mL (BD POSIFLUSH) 2-10 mL INTRAVENOUS DIRECTED PRN NaCl 0.9% iv flush bag 20 mL INTRAVENOUS PRN ondansetron (PF) 4 mg injection (ZOFRAN) 4 mg INTRAVENOUS q 6 H PRN Labs: Recent Labs 03/01/25 0011 02/28/25 0141 02/27/25 0605 NA 135* 143 149* K 3.7 3.6* 3.5* CHLOR 100 102 102 CO2 28 33* 35* BUN 13 26* 29* CREAT 0.31* 0.35* 0.46* GLUC 97 111* 81 ANION 7* 8 12 CA 8.3* 8.6 9.1 MG -- 2.1 2.2 P -- 2.1* 3.1 ALB -- -- 3.5* AST -- -- 18 ALT -- -- 11 ALKPHOS -- -- 51 TBILI -- -- 0.7 WBC 6.50 6.43 6.76 HB 12.1* 12.0* 12.4* HCT 36.0* 36.4* 37.9* PLT 150 146* 173 Physical Exam: GENERAL: resting comfortably, in no acute distress HEENT: normocephalic, atraumatic, EOMI NECK: trachea midline, no JVD LUNGS: Unlabored breathing, equal chest rise bilaterally CARDIAC: Regular rate and rhythm as above ABDOMEN: Soft, non-tender, non-distended, no masses or organomegaly EXTREMITIES: VELASCO, No deformities, No edema SKIN: Skin color, texture, turgor normal, No rashes or lesions NEURO: AANDOx3, CN II-XII grossly intact PSYCH: normal mood and affect ASSESSMENT AND PLAN: Assessment Active Hospital Problems Diagnosis Date Noted Gastric outlet obstruction (HCC) 02/25/2025 Severe protein-calorie malnutrition (HCC) 03/01/2025 At risk for delirium 02/27/2025 IBM (inclusion body myositis) (HCC) 02/27/2025 Goals of care, counseling/discussion 02/27/2025 Frailty syndrome in geriatric patient 02/27/2025 Constipation 02/27/2025 Abnormal stress test 02/27/2025 Abnormal EKG 02/26/2025 Pre-operative card (more content not included)... [facility] 03-01-2025 Note HNO ID: [id number] Author: GLADIS REES, RN Service: Care Management Author Type: Registered Nurse Type: Care Mgt Progress Note Filed: 03/01/2025 12:24 Note Text: CARE MANAGEMENT PROGRESS NOTE SERVICE DATE: 03/01/2025 SERVICE TIME: 12:21 PM LOS: 4 days [place] of Choice Given: Yes Level of Care Discussed: [facility] Facility Financial Disclosure Provided: Yes Financial Disclosure Comments: [facility] connected care Provider List: [facility] Facility Provider list within the patient's requested geographic area shared with the patient/family: Yes within: 10 miles of zip code: [address] Quality and resource use metrics shared with the patient that are relevant to the patient's goals of care and treatment preferences:: Yes Metrics: Skin Integrity, Incidence of Major Falls, Resource Use, Potentially Preventable 30-day Post Discharge Readmission Rates Spoke with patient and spouse at bedside. Discussed PT recommendation for SNF and provided SNF list for review. Patient and spouse are agreeable and referral sent to [facility]. Advised to review list if needed for alternate SNF choices. Will need accepting SNF and cot transport. No precert needed. CM to follow for transitional care planning. SIGNATURE: Gladis Rees RN PATIENT NAME: Jeanie Rankin DATE: March 01, 2025 TIME: 12:21 PM [facility] 03-01-2025 Note HNO ID: [id number] Author: FARIBA BOLAÑOS MD Service: Hospital Medicine Author Type: Physician Type: Progress Notes Filed: 03/01/2025 12:00 Note Text: DEPARTMENT OF HOSPITAL MEDICINE PROGRESS NOTE SERVICE DATE: March 01, 2025 SERVICE TIME: 11:56 AM Hospital Medicine/Primary Attending: Fariba Bolaños NIGHT AND WEEKEND COVERAGE: After 7pm please page [phone] INTERVAL HPI: Follow up GOO Pt s/p cardiac stress today. NG has been removed. Speech therapy at bedside today Na 143, k 3.6 remains on LR Sodium 135, potassium 3.7 on 03/01/2025 MEDICATIONS: Current Facility-Administered Medications Medication Dose Route Frequency NaCl 0.9% iv flush bag 20 mL INTRAVENOUS PRN ondansetron (PF) 4 mg injection (ZOFRAN) 4 mg INTRAVENOUS q 6 H PRN sodium chloride 0.9 % (flush) 2-10 mL (BD POSIFLUSH) 2-10 mL INTRAVENOUS DIRECTED PRN bisacodyl 10 mg suppository (DULCOLAX) 10 mg RECTAL q 72 HR acetaminophen 1,000 mg CUP (TYLENOL) 1,000 mg ORAL q 6 H morphine 2 mg injection 2 mg INTRAVENOUS q 4 H PRN oxyCODONE 5 mg oral liquid (ROXICODONE) 5 mg ORAL q 4 H PRN enoxaparin 40 mg injection (LOVENOX) 40 mg SUBCUTANEOUS q 24 HR lisinopril 10 mg tab(s) (ZESTRIL) 10 mg ORAL DAILY metoprolol tartrate (short acting) 12.5 mg tab(s) (LOPRESSOR) 12.5 mg ORAL q 12 H aspirin 81 mg chewable tab(s) 81 mg ORAL DAILY lactated ringers iv infusion 75 mL/hr INTRAVENOUS CONTINUOUS DATA: Diagnostic tests reviewed for today's visit: Lab data: CBC: Recent Labs 03/01/25 00102/28/25 01402/27/25 0605 02/26/25 0437 02/25/25 0332 WBC 6.50 6.43 6.76 6.77 8.90 HB 12.1* 12.0* 12.4* 12.1* 13.8 HCT 36.0* 36.4* 37.9* 36.1* 40.1 PLT 150 146* 173 174 227 MCV 93.8 96.8 97.7 95.0 92.6 RDWCV 12.1 12.4 12.5 12.5 12.6 NEUTP -- -- -- 65.9 -- ABSNEUT -- -- -- 4.46 -- LYMPHP -- -- -- 17.4 -- MONOP -- -- -- 15.8 -- EODINP -- -- -- 0.3 -- COAG: No results for input(s): "APTT", "INR" in the last 168 hours. BMP: Recent Labs 03/01/25 0011 02/28/25 0141 02/27/25 0605 02/26/25 1356 02/26/25 0437 02/25/25 0332 GLUC 97 111* 81 74 85 137* NA 135* 143 149* 148* 146* 143 K 3.7 3.6* 3.5* 3.4* 2.6* 3.2* CHLOR 100 102 102 100 99 94* CO2 28 33* 35* 36* 37* 39* ANION 7* 8 12 12 10 10 BUN 13 26* 29* 22 22 20 CREAT 0.31* 0.35* 0.46* 0.45* 0.40* 0.55* CHEM: Recent Labs 03/01/25 0011 02/28/25 0141 02/27/25 0605 02/26/25 1356 02/26/25 0437 02/25/25 0332 ALB -- -- 3.5* -- 3.5* -- TPROT -- -- 6.1* -- 6.1* -- CA 8.3* 8.6 9.1 9.3 9.3 9.7 MG -- 2.1 2.2 -- 2.3 -- HEPATIC: Recent Labs 02/27/25 0605 02/26/25436 ALKPHOS 51 51 ALT 11 11 AST 18 20 TBILI 0.7 0.6 URINALYSIS:No results for input(s): "PH", "SPGR", "UGLUC", "UBILI", "UKET", "UHB", "UPROT", "UROBIL", "UWBC", "SSA" in the last 168 hours. Invalid input(s): "NITR" CARDIAC: No results for input(s): "PBNP" in the last 168 hours. PHYSICAL EXAM: BP 180/72 Pulse 59 Temp (Src) 98.1 (Temporal) Resp 18 Ht 5' 9" (1.75m) Wt 141 lb 8.6 oz (64.2kg) SpO2 96% BMI 20.89 kg/(m2). O2 Therapy: Room Air Physical Exam Constitutional: Comments: Elderly chronically unwell sitting upright NG out Cardiovascular: Rate and Rhythm: Normal rate and regular rhythm. Pulmonary: Effort: Pulmonary effort is normal. Breath sounds: Normal breath sounds. Abdominal: General: Abdomen is flat. Palpations: Abdomen is soft. Skin: General: Skin is warm and dry. Neurological: Mental Status: He is alert. HOSPITAL COURSE: This is a 84 year old male with hx as per below who presents with abdominal pain, nausea and vomiting for the past three days. CT AP showed a large hiatal hernia w gastric outlet obstruction. An NG was placed. Pt was admitted with GOO. Surgery and GI following. 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 Follow up GI and surgery recs Problem List Gastric outlet obstruction (HCC) (POA: Yes) Primary hypertension (POA: Yes) Abnormal EKG (POA: Status not on file) Pre-operative cardiovascular examination (POA: Status not on file) Demand ischemia (HCC) (POA: Status not on file) At risk for delirium (POA: Yes) IBM (inclusion body myositis) (HCC) (POA: Status not on file) Goals of care, counseling/discussion (POA: Status not on file) Frailty syndrome in geriatric patient (POA: Status not on file) Constipation (POA: Status not on file) Abnormal stress test (POA: Status not on file) Impression CONCLUSIONS: - Technically difficult exam due to suboptimal positioning. - Exam indication: Abnormal ECG - The left ventricle is normal in size. Left ventricular systolic function is hyperdynamic. EF = 74 ? 5% (2D biplane) Definity contrast used for endocardial border detection. Normal left ventricular diastolic function. - The right ventricle is normal in size. Right ventricular systolic function is normal. - The left atrial cavity is mildly dilated. - The visual (more content not included)... [facility] 02-28-2025 Note HNO ID: [id number] Author: FARIBA BOLAÑOS MD Service: Hospital Medicine Author Type: Physician Type: Progress Notes Filed: 02/28/2025 13:02 Note Text: DEPARTMENT OF HOSPITAL MEDICINE PROGRESS NOTE SERVICE DATE: February 28, 2025 SERVICE TIME: 12:58 PM Hospital Medicine/Primary Attending: Fariba Bolaños NIGHT AND WEEKEND COVERAGE: After 7pm please page [phone] INTERVAL HPI: Follow up GOO Pt s/p cardiac stress today. NG has been removed. Speech therapy at bedside today Na 143, k 3.6 remains on LR MEDICATIONS: Current Facility-Administered Medications Medication Dose Route Frequency NaCl 0.9% iv flush bag 20 mL INTRAVENOUS PRN ondansetron (PF) 4 mg injection (ZOFRAN) 4 mg INTRAVENOUS q 6 H PRN sodium chloride 0.9 % (flush) 2-10 mL (BD POSIFLUSH) 2-10 mL INTRAVENOUS DIRECTED PRN bisacodyl 10 mg suppository (DULCOLAX) 10 mg RECTAL q 72 HR acetaminophen 1,000 mg CUP (TYLENOL) 1,000 mg ORAL q 6 H morphine 2 mg injection 2 mg INTRAVENOUS q 4 H PRN oxyCODONE 5 mg oral liquid (ROXICODONE) 5 mg ORAL q 4 H PRN enoxaparin 40 mg injection (LOVENOX) 40 mg SUBCUTANEOUS q 24 HR lisinopril 10 mg tab(s) (ZESTRIL) 10 mg ORAL DAILY metoprolol tartrate (short acting) 12.5 mg tab(s) (LOPRESSOR) 12.5 mg ORAL q 12 H aspirin 81 mg chewable tab(s) 81 mg ORAL DAILY lactated ringers iv infusion 75 mL/hr INTRAVENOUS CONTINUOUS DATA: Diagnostic tests reviewed for today's visit: Lab data: CBC: Recent Labs 02/28/2514002/27/2560402/26/2543602/25/25 033 WBC 6.43 6.76 6.77 8.90 HB 12.0* 12.4* 12.1* 13.8 HCT 36.4* 37.9* 36.1* 40.1 PLT 146* 173 174 227 MCV 96.8 97.7 95.0 92.6 RDWCV 12.4 12.5 12.5 12.6 NEUTP -- -- 65.9 -- ABSNEUT -- -- 4.46 -- LYMPHP -- -- 17.4 -- MONOP -- -- 15.8 -- EODINP -- -- 0.3 -- COAG: No results for input(s): "APTT", "INR" in the last 168 hours. BMP: Recent Labs 02/28/2514002/27/2560402/26/25 1356 02/26/2543602/25/25 0332 GLUC 111* 81 74 85 137* NA 143 149* 148* 146* 143 K 3.6* 3.5* 3.4* 2.6* 3.2* CHLOR 102 102 100 99 94* CO2 33* 35* 36* 37* 39* ANION 8 12 12 10 10 BUN 26* 29* 22 22 20 CREAT 0.35* 0.46* 0.45* 0.40* 0.55* CHEM: Recent Labs 02/28/2514002/27/2560402/26/25 1356 02/26/257 02/25/25 0332 ALB -- 3.5* -- 3.5* -- TPROT -- 6.1* -- 6.1* -- CA 8.6 9.1 9.3 9.3 9.7 MG 2.1 2.2 -- 2.3 -- HEPATIC: Recent Labs 02/27/25 0605 02/26/25 0437 ALKPHOS 51 51 ALT 11 11 AST 18 20 TBILI 0.7 0.6 URINALYSIS:No results for input(s): "PH", "SPGR", "UGLUC", "UBILI", "UKET", "UHB", "UPROT", "UROBIL", "UWBC", "SSA" in the last 168 hours. Invalid input(s): "NITR" CARDIAC: No results for input(s): "PBNP" in the last 168 hours. PHYSICAL EXAM: BP 167/59 Pulse 53 Temp (Src) 98.1 (Oral) Resp 16 Ht 5' 9" (1.75m) Wt 141 lb 8.6 oz (64.2kg) SpO2 96% BMI 20.89 kg/(m2). O2 Therapy: Room Air Physical Exam Constitutional: Comments: Elderly chronically unwell sitting upright NG out Cardiovascular: Rate and Rhythm: Normal rate and regular rhythm. Pulmonary: Effort: Pulmonary effort is normal. Breath sounds: Normal breath sounds. Abdominal: General: Abdomen is flat. Palpations: Abdomen is soft. Skin: General: Skin is warm and dry. Neurological: Mental Status: He is alert. HOSPITAL COURSE: This is a 84 year old male with hx as per below who presents with abdominal pain, nausea and vomiting for the past three days. CT AP showed a large hiatal hernia w gastric outlet obstruction. An NG was placed. Pt was admitted with GOO. Surgery and GI following. 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 Follow up GI and surgery recs Problem List Gastric outlet obstruction (HCC) (POA: Yes) Primary hypertension (POA: Yes) Abnormal EKG (POA: Status not on file) Pre-operative cardiovascular examination (POA: Status not on file) Demand ischemia (HCC) (POA: Status not on file) At risk for delirium (POA: Yes) IBM (inclusion body myositis) (HCC) (POA: Status not on file) Goals of care, counseling/discussion (POA: Status not on file) Frailty syndrome in geriatric patient (POA: Status not on file) Constipation (POA: Status not on file) Abnormal stress test (POA: Status not on file) Impression CONCLUSIONS: - Technically difficult exam due to suboptimal positioning. - Exam indication: Abnormal ECG - The left ventricle is normal in size. Left ventricular systolic function is hyperdynamic. EF = 74 ? 5% (2D biplane) Definity contrast used for endocardial border detection. Normal left ventricular diastolic function. - The right ventricle is normal in size. Right ventricular systolic function is normal. - The left atrial cavity is mildly dilated. - The visualized aorta is borderline dilated with a maximal dimension of 3.9 cm. - The patient has not had a prior CC echocardiographic exam for comparison. Electronically signed by [employer] Sonal (more content not included)... [facility] 02-28-2025 Note HNO ID: [id number] Author: PETRONA ALBRECHT MD Service: General Surgery Author Type: Resident Type: Progress Notes Filed: 02/28/2025 11:45 Note Text: -- Attestation signed by Petrona Albrecht MD at 02/28/2025 11:45 AM TEACHING PHYSICIAN NOTE OF PERSONAL INVOLVEMENT IN CARE: I have personally seen and examined the patient and performed the medical decision-making components. I have reviewed the medical student documentation and verified the findings in the note as written. Any additions or changes are noted in bold/italics. Signature: Petrona Albrecht Date: 02/28/2025 Time: 11:45 AM -- Resident Supervision of Medical Student I personally saw and examined the patient. I reviewed the medical student's note. I agree with the medical student's assessment and plan unless otherwise noted below. - Agree with below. Denies BM although one recorded. He reports continued flatus. Denies any pain or nausea. Labs are WNL. On liquid diet and tolerating well. Will plan on NST cnsult for PPN and optimization prior to surgery on Sunday Signature: Blaine Casiano MD Date: 02/28/2025 Time: 7:17 AM MEDICAL STUDENT Elective General Surgery (Green Surgery) Progress Note This note was generated by a medical student working under the supervision of a resident and attending physician. When co-signed, the physical exam findings, assessment, and plan as written below are are considered accurate. SERVICE DATE: 02/28/2025 Elective General Surgery (Green Surgery) Service Pager: For questions or concerns Mon-Fri 6a-5p please page [phone]. After 5pm and on Weekends and Holidays, please page [phone] if in ICU or [phone] if on RNF. SUBJECTIVE: NAEON. Jeanie says he's doing ok, all things considered. He is having bowel function in the form of flatus, frequently. No BM. Denies any abd pain, no n/v, tolerating CLD. He is planning to ambulate today when his brings his walker. Tolerating diet DIET LIQUID Nausea No Emesis No Flatus Yes Bowel movement No Pain Controlled Yes Ambulating No OBJECTIVE: Vitals: Temp (24hrs), Av.8 ?C (98.3 ?F), Min:36.7 ?C (98 ?F), Max:36.9 ?C (98.5 ?F) BP 174/68 Pulse (!) 54 Temp 36.9 ?C (98.4 ?F) (Oral) Resp 16 Ht 175.3 cm (5' 9") Wt 64.2 kg (141 lb 8.6 oz) SpO2 92% BMI 20.90 kg/m? O2 Therapy: Room Air IANDO: Date 02/27/25699 - 02/28/25 0659 02/28/25 07 - 03/01/25 0659 Shift 3673-5956 1530-5508 0424-2691 24 Hour Total 4396-2567 4724-7282 3254-1920 24 Hour Total INTAKE Shift Total OUTPUT # of BMs Number of BMs 1 x 1 x Shift Total Weight (kg) 64.2 64.2 64.2 64.2 64.2 64.2 64.2 64.2 MEDICATIONS Current Facility-Administered Medications Medication Dose Route Frequency bisacodyl 10 mg suppository (DULCOLAX) 10 mg RECTAL q 72 HR acetaminophen 1,000 mg CUP (TYLENOL) 1,000 mg ORAL q 6 H morphine 2 mg injection 2 mg INTRAVENOUS q 4 H PRN oxyCODONE 5 mg oral liquid (ROXICODONE) 5 mg ORAL q 4 H PRN enoxaparin 40 mg injection (LOVENOX) 40 mg SUBCUTANEOUS q 24 HR lisinopril 10 mg tab(s) (ZESTRIL) 10 mg ORAL DAILY metoprolol tartrate (short acting) 12.5 mg tab(s) (LOPRESSOR) 12.5 mg ORAL q 12 H aspirin 81 mg chewable tab(s) 81 mg ORAL DAILY lactated ringers iv infusion 75 mL/hr INTRAVENOUS CONTINUOUS sodium chloride 0.9 % (flush) 2-10 mL (BD POSIFLUSH) 2-10 mL INTRAVENOUS DIRECTED PRN NaCl 0.9% iv flush bag 20 mL INTRAVENOUS PRN ondansetron (PF) 4 mg injection (ZOFRAN) 4 mg INTRAVENOUS q 6 H PRN Labs: Recent Labs 02/28/25 0141 02/27/25 0605 02/26/25 1356 02/26/25 0437 NA 143 149* < > 146* K 3.6* 3.5* < > 2.6* CHLOR 102 102 < > 99 CO2 33* 35* < > 37* BUN 26* 29* < > 22 CREAT 0.35* 0.46* < > 0.40* GLUC 111* 81 < > 85 ANION 8 12 < > 10 CA 8.6 9.1 < > 9.3 MG 2.1 2.2 -- 2.3 P 2.1* 3.1 -- 2.7 ALB -- 3.5* -- 3.5* AST -- 18 -- 20 ALT -- 11 -- 11 ALKPHOS -- 51 -- 51 TBILI -- 0.7 -- 0.6 WBC 6.43 6.76 -- 6.77 HB 12.0* 12.4* -- 12.1* HCT 36.4* 37.9* -- 36.1* PLT 146* 173 -- 174 < > = values in this interval not displayed. Physical Exam: GENERAL: resting comfortably, in no acute distress HEENT: normocephalic, atraumatic, EOMI NECK: trachea midline, no JVD LUNGS: Unlabored breathing, equal chest rise bilaterally CARDIAC: Regular rate and rhythm as above ABDOMEN: Soft, non-tender, non-distended, no masses or organomegaly EXTREMITIES: VELASCO, No deformities, No edema SKIN: Skin color, texture, turgor normal, No rashes or lesions NEURO: AANDOx3, CN II-XII grossly intact PSYCH: normal mood and affect ASSESSMENT AND PLAN: Assessment Active Hospital Problems Diagnosis Date Noted Gastric outlet obstruction (HCC) 02/25/2025 At risk for delirium 02/27/2025 IBM (inclusion body myositis) (HCC) 02/27/2025 Goals of (more content not included)... [facility] 02-27-2025 Note HNO ID: [id number] Author: KAREEM PEREZ DO Service: Hospital Medicine Author Type: Physician Type: Progress Notes Filed: 02/27/2025 15:55 Note Text: DEPARTMENT OF HOSPITAL MEDICINE PROGRESS NOTE SERVICE DATE: February 27, 2025 SERVICE TIME: 3:41 PM Hospital Medicine/Primary Attending: KAREEM PEREZ DO, DO NIGHT AND WEEKEND COVERAGE: After 7pm please page [phone] INTERVAL HPI: Follow up GOO Pt s/p cardiac stress today. NG has been removed. Speech therapy at bedside today Na 149, k 3.5 remains on LR + flatus MEDICATIONS: Current Facility-Administered Medications Medication Dose Route Frequency NaCl 0.9% iv flush bag 20 mL INTRAVENOUS PRN ondansetron (PF) 4 mg injection (ZOFRAN) 4 mg INTRAVENOUS q 6 H PRN sodium chloride 0.9 % (flush) 2-10 mL (BD POSIFLUSH) 2-10 mL INTRAVENOUS DIRECTED PRN bisacodyl 10 mg suppository (DULCOLAX) 10 mg RECTAL q 72 HR acetaminophen 1,000 mg CUP (TYLENOL) 1,000 mg ORAL q 6 H morphine 2 mg injection 2 mg INTRAVENOUS q 4 H PRN oxyCODONE 5 mg oral liquid (ROXICODONE) 5 mg ORAL q 4 H PRN [START ON 02/28/2025] enoxaparin 40 mg injection (LOVENOX) 40 mg SUBCUTANEOUS q 24 HR lisinopril 10 mg tab(s) (ZESTRIL) 10 mg ORAL DAILY metoprolol tartrate (short acting) 12.5 mg tab(s) (LOPRESSOR) 12.5 mg ORAL q 12 H aspirin 81 mg chewable tab(s) 81 mg ORAL DAILY DATA: Diagnostic tests reviewed for today's visit: Lab data: CBC: Recent Labs 02/27/2560402/26/2543602/25/25331 WBC 6.76 6.77 8.90 HB 12.4* 12.1* 13.8 HCT 37.9* 36.1* 40.1 PLT 173 174 227 MCV 97.7 95.0 92.6 RDWCV 12.5 12.5 12.6 NEUTP -- 65.9 -- ABSNEUT -- 4.46 -- LYMPHP -- 17.4 -- MONOP -- 15.8 -- EODINP -- 0.3 -- COAG: No results for input(s): "APTT", "INR" in the last 168 hours. BMP: Recent Labs 02/27/25 0605 02/26/25 1356 02/26/2543602/25/25 0332 GLUC 81 74 85 137* NA 149* 148* 146* 143 K 3.5* 3.4* 2.6* 3.2* CHLOR 102 100 99 94* CO2 35* 36* 37* 39* ANION 12 12 10 10 BUN 29* 22 22 20 CREAT 0.46* 0.45* 0.40* 0.55* CHEM: Recent Labs 02/27/25 0602/26/25 1356 02/26/2543602/25/25 0332 ALB 3.5* -- 3.5* -- TPROT 6.1* -- 6.1* -- CA 9.1 9.3 9.3 9.7 MG 2.2 -- 2.3 -- HEPATIC: Recent Labs 02/27/25 0602/26/25436 ALKPHOS 51 51 ALT 11 11 AST 18 20 TBILI 0.7 0.6 URINALYSIS:No results for input(s): "PH", "SPGR", "UGLUC", "UBILI", "UKET", "UHB", "UPROT", "UROBIL", "UWBC", "SSA" in the last 168 hours. Invalid input(s): "NITR" CARDIAC: No results for input(s): "PBNP" in the last 168 hours. PHYSICAL EXAM: BP 152/58 Pulse 58 Temp (Src) 97.6 (Temporal) Resp 16 Ht 5' 9" (1.75m) Wt 141 lb 8.6 oz (64.2kg) SpO2 96% BMI 20.89 kg/(m2). O2 Therapy: Room Air Physical Exam Constitutional: Comments: Elderly chronically unwell sitting upright NG out Cardiovascular: Rate and Rhythm: Normal rate and regular rhythm. Pulmonary: Effort: Pulmonary effort is normal. Breath sounds: Normal breath sounds. Abdominal: General: Abdomen is flat. Palpations: Abdomen is soft. Skin: General: Skin is warm and dry. Neurological: Mental Status: He is alert. HOSPITAL COURSE: This is a 84 year old male with hx as per below who presents with abdominal pain, nausea and vomiting for the past three days. CT AP showed a large hiatal hernia w gastric outlet obstruction. An NG was placed. Pt was admitted with GOO. Surgery and GI following. 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 Follow up GI and surgery recs Problem List Gastric outlet obstruction (HCC) (POA: Yes) Primary hypertension (POA: Yes) Abnormal EKG (POA: Status not on file) Pre-operative cardiovascular examination (POA: Status not on file) Demand ischemia (HCC) (POA: Status not on file) At risk for delirium (POA: Yes) IBM (inclusion body myositis) (HCC) (POA: Status not on file) Goals of care, counseling/discussion (POA: Status not on file) Frailty syndrome in geriatric patient (POA: Status not on file) Constipation (POA: Status not on file) Abnormal stress test (POA: Status not on file) Impression CONCLUSIONS: - Technically difficult exam due to suboptimal positioning. - Exam indication: Abnormal ECG - The left ventricle is normal in size. Left ventricular systolic function is hyperdynamic. EF = 74 ? 5% (2D biplane) Definity contrast used for endocardial border detection. Normal left ventricular diastolic function. - The right ventricle is normal in size. Right ventricular systolic function is normal. - The left atrial cavity is mildly dilated. - The visualized aorta is borderline dilated with a maximal dimension of 3.9 cm. - The patient has not had a prior CC echocardiographic exam for comparison. SSMENT AND PLAN GOO 2/2 hiatal hernia -- Imaging showing large hiatal hernia containing a large portion of the gastric (more content not included)... [facility] 02-27-2025 Note HNO ID: [id number] Author: AHRLAN ANDREW RN Service: Care Management Author Type: Registered Nurse Type: Care Mgt Progress Note Filed: 02/27/2025 15:20 Note Text: CARE MANAGEMENT PROGRESS NOTE SERVICE DATE: 02/27/2025 SERVICE TIME: 3:20 PM LOS: 2 days IMM Follow Up Copy Given: Yes Copy given to:: Patient Method: In Person . SIGNATURE: Harlan Andrew RN PATIENT NAME: Jeanie Rankin DATE: February 27, 2025 TIME: 3:20 PM [facility] 02-27-2025 Note HNO ID: [id number] Author: HARLAN ANDREW RN Service: Care Management Author Type: Registered Nurse Type: Care Mgt Progress Note Filed: 02/27/2025 15:02 Note Text: CARE MANAGEMENT PROGRESS NOTE SERVICE DATE: 02/27/2025 SERVICE TIME: 2:58 PM LOS: 2 days Therapy is trying to work with patient but he is unable to work with them per him because he doesn't have his specific equipment from home. He didn't really do much with therapy. Patient will need to bring his equipment to complete a true assessment with therapy. . SIGNATURE: Harlan Andrew RN PATIENT NAME: Jeanie Rankin DATE: February 27, 2025 TIME: 2:58 PM [facility] 02-27-2025 Note HNO ID: [id number] Author: GIOVANNI MCCOY RT(R) Service: Nuclear Medicine Author Type: Technologist Type: Progress Notes Filed: 02/27/2025 09:15 Note Text: RADIOLOGY SERVICE PROGRESS NOTE SERVICE DATE: 02/27/2025 SERVICE TIME: 9:13 AM PATIENT IDENTITY VERIFICATION COMPLETED USING TWO (2) STANDARD IDENTIFIERS: Name and Date of confirmed by patient verbally FALL SCREENING: Has the patient had 2 falls in the last year or 1 fall with injury or currently using an Ambulatory Assistive Device (Walker, Cane, Wheelchair, Crutches, etc.)? No PATIENT GENDER DATA: .male ALLERGIES: Reviewed and updated MEDICATIONS REVIEWED: No PATIENT RELEVANT IMPLANT DATA REVIEWED: Not Applicable PATIENT PRESENTS WITH AN IMPLANTABLE OR ATTACHED CASING PULLER: No CREATININE: Creatinine Date Value Ref Range Status 02/27/2025 0.46 (L) 0.73 - 1.22 mg/dL Final 02/26/2025 0.45 (L) 0.73 - 1.22 mg/dL Final 02/26/2025 0.40 (L) 0.73 - 1.22 mg/dL Final Estimated Glomerular Filtration Rate Date Value Ref Range Status 02/27/2025 102 >=60 mL/min/1.73m? Final Comment: Estimated Glomerular Filtration Rate (eGFR) is calculated using the 2020 CKD-EPI creatinine equation. This equation utilizes serum creatinine, sex, and age as parameters. The creatinine assay has traceable calibration to isotope dilution-mass spectrometry. Refer to KDIGO guidelines for clinical interpretation. In patients with unstable renal function, e.g. those with acute kidney injury, the eGFR may not accurately reflect actual GFR. P.O.C.T. RESULTS: N/A February 27, [address] PERFORMED: No IV SITE: Inpatient - refer to [facility] documentation POST EXAM PIV STATUS: Left in for next appointment PROCEDURE TYPE: NM Stress: 12.9mCi [id number] was administered IV for Rest Imaging at 745 by ty. 35.8 mCi [id number] was administered IV for Stress Imaging at 900 by ty. ADMINISTRATION TIME: 745 PATIENT DISCHARGED TO: Patient taken to IP transport area for return to RNF/ICU/ED. Is this a therapy: No A Diagnostic radioactive procedure has taken place, with no further precautions necessary other than routine body substance precautions. More information regarding radiation safety can be found using this link: [email or web address] SIGNATURE: RT Anmol(R) PATIENT NAME: Jeanie Rankin DATE: February 27, 2025 TIME: 9:13 AM PAGER/CONTACT #: [facility] 02-27-2025 Note HNO ID: [id number] Author: MUSHTAQ STOREY RN Service: Nursing Author Type: Registered Nurse Type: Nursing Progress Note Filed: 02/27/2025 08:46 Note Text: Lexiscan Nuclear Stress Test discussed with patient, voiced understanding. [facility] 02-27-2025 Note HNO ID: [id number] Author: JULY KENT APRN.CNP Service: Gastroenterology Author Type: Nurse Practitioner Type: Plan of Care Filed: 02/27/2025 07:45 Note Text: GI following for GOO secondary to large hiatal hernia. Medical chart review. Patient not seen face to face. EGD 02/27/2025: - LA Grade C esophagitis with no bleeding. - Gastric stenosis with edema and mild erythema was found in the gastric antrum, prepylorus and duodenal bulb. The prepyloric region was biopsied. - Normal duodenal bulb, first portion of the duodenum and second portion of the duodenum. Recommendations: -Follow pathology -Surgery team following - with possible plans for hernia repair vs gastropexy pending patient/family discussions GI will follow peripherally GI attending, Dr. Camilo [facility] 02-26-2025 Note HNO ID: [id number] Author: KAREEM PEREZ DO Service: Hospital Medicine Author Type: Physician Type: Progress Notes Filed: 02/26/2025 14:58 Note Text: DEPARTMENT OF HOSPITAL MEDICINE PROGRESS NOTE SERVICE DATE: February 26, 2025 SERVICE TIME: 2:51 PM Hospital Medicine/Primary Attending: KAREEM PEREZ DO, DO NIGHT AND WEEKEND COVERAGE: After 7pm please page [phone] INTERVAL HPI: Follow up GOO Pt s/p EGD today with GI. Sx also following. Pt remains with NGT. No abdominal pain/sob or chest pain. Denies flatus Will follow up GI/surgery recs from here K low overnight and replaced IV MEDICATIONS: Current Facility-Administered Medications Medication Dose Route Frequency [Transfer Hold] NaCl 0.9% iv flush bag 20 mL INTRAVENOUS PRN [Transfer Hold] lactated ringers iv infusion 75 mL/hr INTRAVENOUS CONTINUOUS [Transfer Hold] ondansetron (PF) 4 mg injection (ZOFRAN) 4 mg INTRAVENOUS q 6 H PRN [Transfer Hold] morphine 2 mg injection 2 mg INTRAVENOUS q 4 H PRN sodium chloride 0.9 % (flush) 2-10 mL (BD POSIFLUSH) 2-10 mL INTRAVENOUS DIRECTED PRN DATA: Diagnostic tests reviewed for today's visit: Lab data: CBC: Recent Labs 02/26/2543602/25/25331 WBC 6.77 8.90 HB 12.1* 13.8 HCT 36.1* 40.1 PLT 174 227 MCV 95.0 92.6 RDWCV 12.5 12.6 NEUTP 65.9 -- ABSNEUT 4.46 -- LYMPHP 17.4 -- MONOP 15.8 -- EODINP 0.3 -- COAG: No results for input(s): "APTT", "INR" in the last 168 hours. BMP: Recent Labs 02/26/2543602/25/25331 GLUC 85 137* NA 146* 143 K 2.6* 3.2* CHLOR 99 94* CO2 37* 39* ANION 10 10 BUN 22 20 CREAT 0.40* 0.55* CHEM: Recent Labs 02/26/2543602/25/25331 ALB 3.5* -- TPROT 6.1* -- CA 9.3 9.7 MG 2.3 -- HEPATIC: Recent Labs 02/26/25436 ALKPHOS 51 ALT 11 AST 20 TBILI 0.6 URINALYSIS:No results for input(s): "PH", "SPGR", "UGLUC", "UBILI", "UKET", "UHB", "UPROT", "UROBIL", "UWBC", "SSA" in the last 168 hours. Invalid input(s): "NITR" CARDIAC: No results for input(s): "PBNP" in the last 168 hours. PHYSICAL EXAM: BP 174/60 Pulse 59 Temp (Src) 98.3 (Temporal) Resp 16 Ht 5' 9" (1.75m) Wt 141 lb 8.6 oz (64.2kg) SpO2 94% BMI 20.89 kg/(m2). O2 Therapy: Room Air, Liters (Numeric Only): 2 Physical Exam Constitutional: Comments: Elderly chronically unwell appearing NGT in place, hands in contracture BL Cardiovascular: Rate and Rhythm: Normal rate and regular rhythm. Pulmonary: Effort: Pulmonary effort is normal. Breath sounds: Normal breath sounds. Abdominal: General: Abdomen is flat. Palpations: Abdomen is soft. Skin: General: Skin is warm and dry. Neurological: Mental Status: He is alert. HOSPITAL COURSE: This is a 84 year old male with hx as per below who presents with abdominal pain, nausea and vomiting for the past three days. CT AP showed a large hiatal hernia w gastric outlet obstruction. An NG was placed. Pt was admitted with GOO. Surgery and GI following. 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 Follow up GI and surgery recs Problem List Gastric outlet obstruction (HCC) (POA: Yes) ASSESSMENT AND PLAN GOO 2/2 hiatal hernia -- Imaging showing large hiatal hernia containing a large portion of the gastric body and a short segment of the duodenum. Patient has had a known large hiatal hernia that contained most of the stomach going back as far as 2010. Per repeat CT abdomen pelvis, appears to be improvement of gastric distention with NG placement -- surgery and GI following today S/p EGD 02/26- will follow up GI impression and updates Surgery considering hiatal hernia surgery next Sunday Requesting pre op assessment and cardiac evaluation Ordered echo for today- being done at bedside will follow up After cardiac evaluation- surgery planning to take over as primary service 2. Hypokalemia -- low today 2.6 Replaced iv overnight and this am Will recheck 3. 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 Elevated troponins On admission 81 to 75, with abnormal EKG noted yesterday with RBBB and t wave abnormalities Will check echo today, no chest pain/sob Appreciate cardiac opinion/consult VTE Prophylaxis: Pneumatic Compression Device Disposition: To be determined Plan of care discussed with: Provider, RN, Patient Medication and Non-Pharmacologic VTE Prophylaxis/Anticoagulants 02/25/25 0615 vte current anticoag therapy (fl,oh) 02/25/25614 pneumatic compression sleeve(s) (hi,oh) 02/25/25614 activity - mobilize patient (hi,id) SIGNATURE: KAREEM PEREZ DO, DO PATIENT NAME: Jeanie Rankin DATE: February 26, 2025 TIME: 2:51 PM PAGER/CONTACT #: Team color pager Disclaimer: Portions of this note may have been generated using [employer] voice recognition software. Reaso (more content not included)... [facility] 02-26-2025 Note HNO ID: [id number] Author: BERENICE THOMPSON APRN.CRNA Service: Anesthesiology Author Type: Nurse Code Enforcement Inspector Type: Anesthesia Procedure Notes Filed: 02/26/2025 11:23 Note Text: ANESTHESIOLOGY PROCEDURE NOTE Airway General Information Procedure Start Time/Medication Administration: 02/26/2025 11:10 AM Procedure End Time: 02/26/2025 11:11 AM Patient location during procedure: OR Timeout Performed Pre-procedure: timeout performed Consent Obtained: Yes Patient identity confirmed: arm band Staffing HAZMAT TECHNICIAN: Berenice Thompson APRN.HAZMAT TECHNICIAN Performed by: MARLY Indications and Patient Condition Indications for airway management: anesthesia Preoxygenated: yes anesthesia circuit Patient position: sniffing and ramp Method: rapid sequence Cricoid Pressure: No Final Airway Details Final airway type: endotracheal airwayFinal Endotracheal Airway: ETT Successful intubation technique: video laryngoscopy Devices used: intubating stylet Endotracheal tube insertion site: oral Blade: Lila Blade size: #4 ETT size (mm): 8.0 Measured from: lips Measurement (cm): 23 Placement verified by: chest auscultation and capnometry Cormack-Lehane Classification: grade I - full view of glottis Number of attempts at approach: 1 Airway not difficult Comments NGT placed to suction prior to ETT placement. SIGNATURE: Berenice Thompson APRN.CRNA PATIENT NAME: Jeanie Rankin DATE: February 26, 2025 TIME: 11:22 AM CSN: [id number] [facility] 02-25-2025 Note HNO ID: [id number] Author: RONALDO YI PA-C Service: Hospital Medicine Author Type: Physician Rotary Screen Printing Machine Operator Type: Plan of Care Filed: 02/25/2025 23:20 Note Text: 1919: This JUSTIN was notified about this patient's EKG results by RN. EKG - Sinus bradycardia w/1st Degree AV Block and RBBB. T-wave inversions noted in multiple leads. STAT DEANDRE ordered as well as repeat EKG at 2100 ordered. 2030: DENADRE - 81 Ordered serial DEANDRE q3h to trend. 2123: EKG - Sinus bradycardia w/RBBB. No change in T-waves from previous EKG. 2319: DEANDRE - 75 Ronaldo Yi PA-C [facility] 02-25-2025 Note HNO ID: [id number] Author: AYAZ MERINO LISW Service: Care Management Author Type: Field Engineer Type: Care Mgt Initial Assessment Filed: 02/25/2025 14:28 Note Text: CARE MANAGEMENT: ASSESSMENT AND DISCHARGE PLAN SERVICE DATE: February 25, 2025 SERVICE TIME: 2:02 PM PCP: No primary care provider on file. Primary Contact: Extended Emergency Contact Information Primary Emergency Contact: JENI RANKIN Relation: Spouse Admission Status: Inpatient Insurance Provider: MEDICARE A AND B Discharge Planning requested by: Per Department Practice Potential Transition Plans Home, To Be Determined Advance Directives Current Advance Directive: Health Care Power of Airplane Cabin Attendant, Living Will In Chart: Yes Up To Date and Valid: Yes Current Living Arrangements and Support Lives with: Spouse/significant other Type of Residence: Private Residence (House) Does the patient have to climb stairs at home?: No (has stairs, though they have stair lift) Support: Family members, Spouse/significant other How do you manage to accomplish the following: Needs Assistance: Ambulation, Bathe/Shower, Dress, Meals/Meal Prep, Going to the bathroom, Medication Management Dependent: Transportation to appointments/community Current Services/Equipment Current Post-Acute Service(s): DME Current DME Type: Elevated toilet seat, Walker, Other: See Comment (sleep chair, lift chairs with vertical lift, stair lift) Discharge Planning Patient Goal(s): General wellness [place] of Choice Explained: [place] of Choice Given: No Reason Not Given: No placements necessary Are you interested in bedside delivery of your medications? No Discharge Planning Participant(s): Family, Patient, Spouse/significant other Patient/Family Comments: Jeni and son Papito at bedside Caregiver Assessment: Caregiver is ready, willing and able to meet the patient's needs as recommended by the inter-professional team: No Transport at Discharge: Transportation Arrangements: Ambulance Type of Service: BLS Non-emergency Needs Prior to Discharge: Needs Prior to Discharge: To Be Determined Post-Acute Discharge Plan: Reviewed chart and met with patient at bedside. Introduced self and role to patient and family. 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 reports there is not possibility of therapy strengthening muscles. They have quite a bit of equipment at home. is primary caregiver and managing well.. PCP sees at home 4 times per year. Patient does not leave the house for appts. May still benefit from therapy to assist in recommendations if SNF were necessary - they do report he can walk and ambulate with walker at baseline, is pretty independent with all of his equipment. Would need cot transport at dc to return home. Dispo TBD. SIGNATURE: JERRY Baltazar PATIENT NAME: Jeanie Rankin DATE: February 25, 2025 TIME: 2:02 PM [facility] 02-25-2025 Note HNO ID: [id number] Author: KAREEM PEREZ DO Service: Hospital Medicine Author Type: Physician Type: Plan of Care Filed: 02/25/2025 13:37 Note Text: Pt admitted early this am by Level Vial Inspector team for GOO, with NG in place. Surgery and GI are following. Pt remains on IVF. Pt wants the NG out but not able to remove yet per surgery/GI. Reviewed code status with pt and family and plan is for DNR CCA. states pt has chronic hx of inclusion body myositis. Will add labs on for tomorrow. Will ask PT OT speech and nutrition to see as well. [facility] 02-25-2025 Note HNO ID: [id number] Author: MORALES GARCIA, RN Service: Nursing Author Type: Registered Nurse Type: Nursing Progress Note Filed: 02/25/2025 08:09 Note Text: Code status addressed with Dr Perez. DNR signed in chart [facility] 02-24-2025 Consult note [facility] 02-24-2025 Discharge summary [facility] 02-24-2025 Radiology Diagnostic study note [facility] Imaging Services [address] [place], [place] [address] Abdomen/Pelvis without Cont MR#: [id number] Acct: [id number] Name: JEANIE RANKIN Rep #: [id number] 2 : 1940 M 84 From: [facility] jessica Richards MD PCP: Dr. Taylor Zuniga, DO Status: REG ER Study:Abdomen/Pelvis without Cont Date of Exa m: 02/24/25 Exam# [id number] Ordering Dr: Maya Alonso mus DO PROCEDURE: CT ABDOMEN/PELVIS WITHOUT CONT 02/24/2025 REASON FOR EXAM: ABDOMINAL PAIN TECHNIQUE: Procedure Code: CTABDPEL Modality: CT Procedure: ABDOMEN/PELVIS WITHOUT CONT Noncontrast technique limits evaluation of the abdominal and pelvic viscera. Coronal and Sagittal reconstruction series were provided. One or more dose reduction techniques were used (e.g., Automated exposure control, adjustment of the mA and/or kV according to patient size, use of iterative reconstruction technique). RADIATION DOSE SUMMARY: DLP: 1107.46 mGycm COMPARISON: Earlier same day 02/24/2025. FINDINGS: Lung bases: Mild bibasilar dependent atelectasis. Redemonstrated hiatal hernia protruding into the posterior mediastinum, which contains a herniated segment of the proximal duodenum, mildly distended. Not substantially changed since prior exam from earlier same day. Liver: Unremarkable. Gallbladder: Unremarkable. Spleen: Normal in size. Punctate calcified granulomas. Pancreas: Unremarkable. Age-related fatty atrophy. Adrenals: Unremarkable, no discrete nodules. Kidneys: Unremarkable. No hydronephrosis. Bladder: Unremarkable. Excreted IV contrast opacifies the bladder lumen. Reproductive Organs: Mildly enlarged prostate. Bowel: Enteric tube terminates within the proximal stomach. Interval decreased distention of the stomach and proximal duodenum with fluid and air since prior exam. Similar configuration of a moderate-large hiatal hernia which contains a herniated segment of the proximal duodenum. Remainder of the GI tract demonstrates no evidence for obstruction or active inflammatory process. Unremarkable appendix. Lymph nodes: No suspicious lymph node enlargement. Vasculature: Normal caliber abdominal aorta. Moderate atherosclerotic disease. Peritoneum / Retroperitoneum: No ascites or free air. Bones: Mild gynecomastia. Multilevel degenerative changes of the spine. CT/Abdomen/Pelvis without Cont IMPRESSION: Redemonstrated moderate-large hiatal hernia which contains a herniated short-segment of the proximal duodenum, which is at risk for obstruction. Decreased distention of the stomach and herniated duodenal segment post enteric tube placement since prior exam. No other acute findings. Reading Location: [id number] CC: Dr. Taylor Zuniga DO; Dr. Zee Alonso DO ~ Director Summer Sessions: Signed [facility] 02-24-2025 Consult note Note Date/Time February 24, 2025 11:26pm [facility] Medical Records Department [address] [place] [address] Consultation - Surgical 02/24/25 190 MR#: [id number] Acct: [id number] Name: JEANIE RANKIN Rep #:[id number] 1 : 1940 84 From: Windy Jasso MD PCP: Dr. Taylor Zuniga DO Status:DEP ER Location: ED Assessment & Plan Assessment/Plan (1) Abnormal CT of the abdomen: (2) N&V (nausea and vomiting): PLAN: Plan Did review CT chest abdomen pelvis personally unable to follow stomach well to find a reason for the gastric outlet obstruction. Patient did previously have entire stomach in the chest in 2019 and a hiatal hernia. Did place NG at bedside and got about 2300 out initially still draining. ER is planning to repeat CT abdomen pelvis see if we have any better evaluation once the stomach has been drained. Addendum: repeat CT a/p shows distal stomach and 1st part of duodenum still in chest- recommend transfer to tertiary care . Windy Jasso M.D. Pager: [phone] [facility] [address] [place] [address], Outpatient Pavilion, [address] [place] [address] Office: [phone] HPI Consult Data Date of Consult: 02/25/25 HPI Narrative HPI Narrative: JEANIE RANKIN, is a 84 M who presents due to continuing spitting up and vomiting. 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 Patient's has been chopping up food into smaller bites and he is able to typically swallow this. They had some turkey gravy and green beans yesterday and patient did have a large amount of emesis yesterday and then this morning he was having difficulty swallowing even water as the was trying toget him rehydrated due to all the vomiting yesterday. He did complain of some abdominal discomfort yesterday. CT chest abdomen pelvis was done patient does have a history of large hiatal hernia in 2019 and entire stomach was in his chest. Current CT does show very dilated stomach with appears to have the prepyloric stomach and duodenum and the chest distended with fluid as well as the gastric body distended with fluid and air-read pending [facility] Medical History (Updated 02/24/25 @ 21:[address] Zee Alonso, DO) History of non-Hodgkin's lymphoma Lichenification Lymphedema Inclusion body myositis Scarlet fever Cancer CYST EXCISION RIGHT BREAST Osteopenia Hypertension Anemia Home Medications ?Medication ?Instructions ?Recorded ?Last Taken ?Type Cholecalciferol (Vitamin D3) 1,000 units PO DAILY supp lement 07/31/16 Unknown History multivitamin with folic acid 400 1 tab PO DAILY supple ment 07/31/16 Unknown History mcg tablet (Thera) cyanocobalamin (vitamin B-12) 1,000 mcg sublingual JEREMY LY 12/04/17 Unknown History 1,000 mcg sublingual tablet supplement Nitric Oxide 420 mg PO DAILY supplement 0 12/04/18 Unknown History coenzyme Q10 50 mg chewable tablet 200 mg PO DAILY sup plement 12/04/18 Unknown History elderberry fruit 200 mg capsule 200 mg PO DAILY supple ment 12/17/22 Unknown History turmeric 400 mg capsule 400 mg PO DAILY supplement 0 12/17/22 Unknown History cetirizine 10 mg tablet (24Hour 10 mg PO DAILY allergi es 01/29/24 02/01/24 History Allergy) lisinopril 5 mg tablet 10 mg PO DAILY blood pressur e 01/29/24 02/01/24 History Allergy/AdvReac Type Severity Reaction Status Date / Time bacitracin (From Neosporin AdvReac Mild Itching Verified 02/24/25 17:08 ([id number])) neomycin (From Neosporin AdvReac Mild Itching Verified 02/24/25 17:08 ([id number])) polymyxin B (From Neosporin AdvReac Mild Itching Verified 02/24/25 17:08 ([id number]-[id number])) adhesive tape AdvReac Unknown Verified 02/24/25 17:08 Family History Father Colon cancer Mother Gastric cancer Surgical History History of cataract extraction Social History Smoking Status: Never smoker ROS Constitutional Constitutional: Reports anorexia ENT HEENT: Reports dysphagia Cardiovascular Cardiovascular: Reports chest pain Gastrointestinal Gastrointestinal: Reports abdominal pain and constipation Genitourinary Genitourinary: Denies hematuria Musculoskeletal Musculoskeletal: Reports difficulty walking Integumentary Integumentary: Denies jaundice Neurologic Neurologic: Reports weakness Hematologic/Lymphatic Hematologic/Lymphatic: Denies easy bleeding Physical Exam Const alert General Appearance: frail Nutritional Appearance: cachectic Resp normal respiratory effort Cardio Rate: regular rate GI soft to palpation, non-tender and non-distended Lab / Micro Data 02/24/25 17:48 02/24/25 17:48 Labs: Laboratory Results - last 24 hr 02/24/25 17:48: WBC 9.3, RBC 4.57 L, Hgb 14.4, Hct 41.8, MCV 91.5, MCH 31.5, MCHC 34.4, RDW Std Deviation 41.1, RDW Coeff of Nils 12.4, Plt Count 247, MPV 10.0, Immature Gran % (Auto) 0.400, Neut % (Auto) 86.5 H, Lymph % (Auto) 4.6 L, [place] % (Auto) 8.4, Eos % (Auto) 0.0, Baso % (Auto) 0.1, Absolute Neuts (auto) 8.0 H, Absolute Lymphs (auto) 0.43 L, Nucleated RBC % 0, Sodium 142, Potassium 3.5, Chloride 93 L, Carbon Dioxide 36.6 H, Anion Gap 13, BUN 18, Creatinine 0.69L, Estim Creat Clear Calc 61.97, Est GFR (MDRD) Non-Af 90, BUN/Creatinine Ratio 26.8 H, Glucose 190 H, Calcium 10.4, Total Bilirubin 0.57, AST 22, ALT 13, Alkaline Phosphatase 68, Total Protein 7.9, Albumin 4.7, Globulin 3.2, Albumin/Globulin Ratio 1.4 Charges/Coding Visit Charges Office Visits / Consults: 46342 ED Visit; High/Urgent Severity Multi Select Codes Visit Charges Office Visit/Consults: 10554 ED Visit; High/Urgent Severity 02/25/25 1330 <Electronically signed by Windy Jasso MD> Cosigner Signature (if applicable): CC: Dr. Taylor Zuniga, DO~ Signed [facility] Work Phone: [phone]) 711-120710-21-2025 Radiology Diagnostic study note [facility] Imaging Services [address] [place], [place] [address] CT Chest, Abd, Pel w/Contrast MR#: [id number] Acct: [id number] Name: JEANIE RANKIN Rep #: [id number] 2 : 1940 M 84 From: Jay Pereyra MD PCP: Dr. Taylor Zuniga DO Status: REG ER Study:CT Chest, Abd, Pel w/Contrast Date of E xam: 02/24/25 Exam# [id number] Ordering Dr: Maya Alonso DO PROCEDURE: CT CHEST, ABD, PEL W/CONTRAST 02/24/2025 REASON FOR EXAM: ABDOMINAL PAIN, DIFFICULTY SWALLOWING TECHNIQUE: Chest, abdomen and pelvis CT with intravenous contrast. Coronal and Sagittal reconstruction series were provided. One or more dose reduction techniques were used (e.g., Automated exposure control, adjustment of the mA and/or kV according to patient size, use of iterative reconstruction technique. CONTRAST: Isovue-300 VOLUME: 90mL RADIATION DOSE SUMMARY: CTDlvol: 19 mGy DLP: 1737 mGycm FINDINGS: Examination of the lung parenchyma demonstrates no mass or consolidation in the left lung. Atelectasis at the right lung base. Large hernia identified which contains a significant portion of the stomach. The stomach is rather massively distended without bowel dilatation and this is concerning for gastric outlet obstruction, likely secondary to the hernia. No mediastinal mass. Normal aorta. No adenopathy. Liver, gallbladder and spleen unremarkable. No pancreatic or renal masses. Aortic calcification without aneurysm. No free air or free fluid. CT/CT Chest, Abd, Pel w/Contrast IMPRESSION: The examination is concerning for gastric outlet obstruction secondary to herniation of the gastricbody and possibly a portion of the GE junction into the mediastinum. The gastroesophageal junction is belowthe diaphragm. Gastric decompression recommended. Reading Location: [facility] CC: Dr. Taylor Zuniga DO; Dr. Zee Alonso DO ~ Director Summer Sessions: Signed [facility]10-21-2025 Radiology Diagnostic study note [facility] Imaging Services [address] [place] [address] Abdomen Single View (Portable) MR#: [id number] Acct: [id number] Name: JEANIE RANKIN Rep #: [id number] 1 : 1940 M 84 From: Dannie Richards MD PCP: Dr. Taylor Zuniga DO Status: REG ER Study:Abdomen Single View (Portable) Date of Exam: 02/24/25 Exam# [id number] Ordering Dr: Maya Alonso DO PROCEDURE: ABDOMEN SINGLE VIEW (PORTABLE) 02/24/2025 REASON FOR EXAM: NG INSERTION TECHNIQUE: Procedure Code: RADABD_P Modality: DX Procedure: ABDOMEN SINGLE VIEW (PORTABLE) COMPARISON: None. FINDINGS: Enteric tube courses midline, side port/distal tip terminating within the left upper quadrant in the expected location of the stomach. No dilated bowel loops in the upper abdomen. No discernible free air. ExcretedIV contrast in the renal collecting systems. Mild bibasilar subsegmental atelectasis. Degenerative changes of the spine. RAD/Abdomen Single View (Portable) IMPRESSION: Enteric tube terminates appropriately within the stomach. Reading Location: [facility] CC: Dr. Taylor Zuniga DO; Dr. Zee Alonso DO ~ Director Summer Sessions: Signed [facility]2025 Discharge summary Author Zee Alonso [facility] Note Date/Time February 24, 2025 1 1:26pm [facility] Medical Records Department [address] [place] [address] Emergency Department Summary 02/24/25 MR#: [id number] Acct: [id number] Name: JEANIE RANKIN Rep #:[id number] 3 : 1940 84 From: Zee Alonso DO PCP: Dr. Taylor Zuniga, DO Status:DEP ER Location: ED HPI History of Present Illness Chief Complaint: Nausea/Vomiting Detail of Chief Complaint: Difficulty swallowing and abdominal pain Informant: patient and family Narrative Narrative: Patient presents to the emergency department with complaint difficulty swallowing and abdominal pain.'s symptoms started last evening after dinner. Heate chicken with gravy and mashed potatoes. Apparently typically has difficultyswallowing due to inclusion body myositis history. Typically has to have his food cut up very small. Patient then apparently developed some abdominal discomfort and complained of difficulty swallowing and unable to swallow water. He was spitting up mostly phlegm. He has not had any diarrhea. No blood in hisstool or black tarry stool. [facility] Medical History (Updated 02/24/25 @ 21:[address] Zee Alonso DO) History of non-Hodgkin's lymphoma Lichenification Lymphedema Inclusion body myositis Scarlet fever Cancer CYST EXCISION RIGHT BREAST Osteopenia Hypertension Anemia Home Medications ?Medication ?Instructions ?Recorded ?Last Taken ?Type Cholecalciferol (Vitamin D3) 1,000 units PO DAILY supp lement 07/31/16 Unknown History multivitamin with folic acid 400 1 tab PO DAILY supple ment 07/31/16 Unknown History mcg tablet (Thera) cyanocobalamin (vitamin B-12) 1,000 mcg sublingual JEREMY LY 12/04/17 Unknown History 1,000 mcg sublingual tablet supplement Nitric Oxide 420 mg PO DAILY supplement 0 12/04/18 Unknown History coenzyme Q10 50 mg chewable tablet 200 mg PO DAILY sup plement 12/04/18 Unknown History elderberry fruit 200 mg capsule 200 mg PO DAILY supple ment 12/17/22 Unknown History turmeric 400 mg capsule 400 mg PO DAILY supplement 0 12/17/22 Unknown History cetirizine 10 mg tablet (24Hour 10 mg PO DAILY allergi es 01/29/24 02/01/24 History Allergy) lisinopril 5 mg tablet 10 mg PO DAILY blood pressur e 01/29/24 02/01/24 History Allergy/AdvReac Type Severity Reaction Status Date / Time bacitracin (From Neosporin AdvReac Mild Itching Verified 02/24/25 17:08 ([id number])) neomycin (From Neosporin AdvReac Mild Itching Verified 02/24/25 17:08 ([id number])) polymyxin B (From Neosporin AdvReac Mild Itching Verified 02/24/25 17:08 ([id number]-[id number])) adhesive tape AdvReac Unknown Verified 02/24/25 17:08 Family History Father Colon cancer Mother Gastric [...] on exertion, orthopnea or sputum Gastrointestinal Gastrointestinal: Reports abdominal pain, nausea, vomiting and other Details: Difficulty swallowing ; Denies diarrhea Genitourinary Genitourinary ED: Denies dysuria, hematuria or urinary frequency Musculoskeletal Musculoskeletal: Denies arthralgias, back pain, myalgias or neck pain Integumentary Denies abscess, Abrasions or rash Neurologic Neurologic: Denies headache(s) or weakness Psychiatric Psychiatric: Denies anxiety, depression or suicidal thoughts Endocrine Endocrinology: Denies polydipsia, polyphagia or polyuria Hematologic/Lymphatic Hematologic/Lymphatic: Denies easy bleeding, easy bruising or lymphadenopathy Allergic/Immunologic Allergic/Immunologic ED: Denies mouth swelling, tongue swelling or urticaria EXAM Physical Exam Const Vital Signs: 02/24/25 17:04 02/24/25 19:03 02/24/25 19:56 Temperature 98.3 F Temperature Source Oral Pulse Rate 68 70 Respiratory Rate 20 H 24 H Blood Pressure 189/74 H 208/184 H 173/56 H Blood Pressure Mean 112 192 95 Pulse Ox 98 100 Oxygen Delivery Method Room Air Room Air 02/24/25 21:00 Temperature Temperature Source Pulse Rate 60 Respiratory Rate 16 Blood Pressure 169/59 H Blood Pressure Mean 95 Pulse Ox 97 Oxygen Delivery Method Room Air Positive well nourished and well developed General Appearance ED: well developed and NAD HEENT Reports TM's clear and moist mucous membranes normocephalic and atraumatic; Negative for trauma or tenderness Tympanic Membrane ED: Yes TM's clear Eyes PERRL and EOMs intact bilaterally General Eye ED: Negative for pale conjunctiva or scleral icterus Neck no lymphadenopathy, supple and no JVD General: Negative for tenderness Chest Wall inspection of chest normal and palpation of chest normal Chest: Negative for tenderness Resp normal respiratory effort and clear to auscultation bilaterally Effort and Inspection: Negative for respiratory distress or pain with movement Auscultation: Negative for rhonchi, wheezes or diminished lung sounds Cardio regular rate, regular rhythm, S1 normal heart sound, S2 normal heart sound and no murmurs Peripheral Pulses: pulses 2+ throughout GI normal to inspection, nondistended, normoactive bowel sounds, soft to palpation,non-distended and no masses GI Narrative: Tenderness palpation over the epigastric region with some mild guarding. There is no rebound, rigidity, or perio signs. No mass palpated. Back/Spine no CVA tenderness and no thoracic nor lumbar tenderness Extremity normal to inspection General Extremety ED: Negative for edema General Extremity: Negative for edema Neuro oriented x3, CN's II-XII intact bilaterally, no sensory deficits noted and gait normal Sensorium / Orientation: awake, alert, oriented to person, oriented to place andoriented to time Motor Exam: strength 5/5 throughout and strength abnormal Psych mental status grossly normal Skin no rashes or lesions noted and no wounds MDM MDM MDM Narrative Medical decision making narrative: Patient presents with vomiting and abdominal discomfort. 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 IV line established. He was medicated with normal saline. CBC with differential white count 9.3 with hemoglobin 14 and platelet count of 247. Chemistries unremarkable. LFTs unremarkable. CT scan of the chest abdomen pelvis obtained noted findings consistent with gastric outlet obstruction secondary to herniation of the gastric body and possibly portion of the GE junction into the mediastinum. The gastroesophageal junction is below the diaphragm. Gastric decompression recommended. Initially discussed case with Dr. Jasso who is on- call for general surgery. She recommended we place NG tube to suction and decompress. [place] asked to repeat the CT scan after decompression of the stomach and patient continues to have small part of the duodenum within the hernia concern for obstruction. General surgeon asked that we transfer patient to tertiary care center for definitive care. Family would like to go to [facility]. I discussed case with [facility] transfer line who discussed the case with their general surgeon and their emergency room physician and they accepted transfer of patient to their emergency department for evaluation and definitive care. Lab Data Attestation: I reviewed the patient's lab results. Labs: Laboratory Results - last 24 hr 02/24/25 17:48 WBC 9.3 RBC 4.57 L Hgb 14.4 Hct 41.8 MCV 91.5 MCH 31.5 MCHC 34.4 RDW Std Deviation 41.1 RDW Coeff of Nils 12.4 Plt Count 247 MPV 10.0 Immature Gran % (Auto) 0.400 Neut % (Auto) 86.5 H Lymph % (Auto) 4.6 L [place] % (Auto) 8.4 Eos % (Auto) 0.0 Baso % (Auto) 0.1 Absolute Neuts (auto) 8.0 H Absolute Lymphs (auto) 0.43 L Nucleated RBC % 0 Sodium 142 Potassium 3.5 Chloride 93 L Carbon Dioxide 36.6 H Anion Gap 13 BUN 18 Creatinine 0.69 L Estim Creat Clear Calc 61.97 Est GFR (MDRD) Non-Af 90 BUN/Creatinine Ratio 26.8 H Glucose 190 H Calcium 10.4 Total Bilirubin 0.57 AST 22 ALT 13 Alkaline Phosphatase 68 Total Protein 7.9 Albumin 4.7 Globulin 3.2 Albumin/Globulin Ratio 1.4 Radiography Diagnostic Testing: Clinical Impression(s) from Imaging Studies Chest/Abdomen/Pelvis CT 02/24/25 17:37 IMPRESSION: The examination is concerning for gastric outlet obstruction secondary to herniation of the gastric body and possibly a portion of the GE junction into the mediastinum. The gastroesophageal junction is belowthe diaphragm. Gastric decompression recommended. Reading Location: [facility] X-Ray 02/24/25 18:25 IMPRESSION: Enteric tube terminates appropriately within the stomach. Reading Location: [facility] Abdomen/Pelvis CT 02/24/25 20:30 IMPRESSION: Redemonstrated moderate-large hiatal hernia which contains a herniated short- segment of the proximal duodenum, which is at risk for obstruction. Decreased distention of the stomach and herniated duodenal segment post enteric tube placement since prior exam. No other acute findings. Reading Location: [facility] Critical Care Time Critical care time (excluding procedures): 30-74 minutes, Including time spent:,Discussing w/Patient &/or Family/Batch Attendant, Discussing w/Consultants, ArrangingAdmission or Transfer, Performing Direct Patient Care at Bedside and - (30 minutes) Discharge Plan Triage Chief Complaint: Nausea/Vomiting ED Provider: Zee Alonso Dx/Rx/DC Orders Clinical Impression: Abdominal pain, Gastric outlet obstruction Prescriptions: No Action multivitamin with folic acid [Thera] 1 TABLET tablet 1 tab PO DAILY Cholecalciferol (Vitamin D3) 1,000 U 1,000 units PO DAILY cyanocobalamin (vitamin B-12) 1,000 MCG tablet, sublingual 1,000 mcg sublingual DAILY coenzyme Q10 50 MG tablet,chewable 200 mg PO DAILY Nitric Oxide 420 mg PO DAILY turmeric 400 mg capsule 400 mg PO DAILY elderberry fruit 200 mg capsule 200 mg PO DAILY lisinopril 5 mg tablet 10 mg PO DAILY cetirizine [24Hour Allergy] 10 mg tablet 10 mg PO DAILY Primary Care Provider: Taylor Zuniga Referrals: Taylor Zuniga DO [Primary Care Provider, Internal Medicine] Print Language: [place] Disposition Disposition: DC/Tx to Another Type of HCF What to do if you have Problems For any increased pain, shortness of breath, bleeding, nausea or vomiting, chestpain, or any unexpected problems, contact your Primary Care Provider. Call [facility] ([phone]) or report to the closest Emergency Room. Call 911 if necessary. 02/24/25 [id number] <Electronically signed by Zee Alonso DO> Cosigner Signature (if applicable): CC: Dr. Taylor Zuniga, DO ~ Signed [facility] Work Phone: [phone] Hospital Discharge instructions Additional Instructions Please follow-up with your PCP. Please have sutures removed in 10 to 14 days and return for any worsening of your symptoms.[facility] Work Phone: Evaluation noteNo assessment information available [facility] Work Phone: Evaluation note* Diagnosis Onset Date Resolution Status Admit Date Debility acute March 05, 2025 3:52pm Dysphagia acute March 05, 2025 3:52pm Essential (primary) hypertension acute March 05 3:52pm Gout acute March 05, 2025 3:52pm Hiatal hernia acute February 3:52pm History of non-Hodgkin's lymphoma acute March 05 3:52pm Hypogonadism acute February 3:52pm Inclusion body myositis acute O ctober 2024 3:52pm N&V (nausea and vomiting) acute March 05, 2025 3:52pm Vitamin D deficiency acute 2024 3:52pm Abdominal pain inactive March 052024 3:52pm Gastric outlet obstruction inactive March 05, 2025 3:52pm [facility] Work Phone: Instructions* Name Dates Details Patient Instructions Indication:Hypertension Start:25-Dec-2022 Instruction Type:Provider In structions for Treatment [facility] Work Phone: Instructions* Name Dates Details Patient Instructions Indication:Hypertension Start:25-Dec-2022 Instruction Type:Provider In structions for Treatment [facility]; [facility] Work Phone: Instructions* Name Dates Details Patient Instructions Indication:Hypertension Start:25-Dec-2022 Instruction Type:Provider In structions for Treatment [facility]; [facility] Work Phone: reason for referral (narrative)No reason for referral information available[facility] Work Phone: Summary Purpose Family History No [...] March 4:25pm Living Will Yes March 29, 2 016 4:25pm Power of Airplane Cabin Attendant Yes March 29, 2016 4:25pm Advance Directive Response Recorded Date/ Time Name of Medical Power of Airplane Cabin Attendant present December 17, 2022 3:39pm Advance Directives Yes March 4:25pm Living Will Yes December 17 3:39pm Power of Airplane Cabin Attendant Yes December 17, 2 023 3:39pm Advance Directive Response Recorded Date/ Time Advance Directives Yes March 3:25pm Living Will Yes December 17 2:39pm Power of Airplane Cabin Attendant Yes December 17, 2 023 2:39pm Name of Medical Power of Airplane Cabin Attendant present December 17, 2022 2:39pm Advance Directive Response Recorded Date/ Time Advance Directives Yes March 4:25pm Living Will Yes December 17 3:39pm Power of Airplane Cabin Attendant Yes December 17, 2 023 3:39pm Advance Directive Response Recorded Date/ Time Advance Directives Yes March 3:25pm Living Will Yes December 17 2:39pm Power of Airplane Cabin Attendant Yes December 17, 2 023 2:39pm Advance Directive Response Recorded Date/ Time Advance Directives Yes March 4:25pm Advance Directive Response Recorded Date/ Time Do you have a Healthcare Pow er of Airplane Cabin Attendant? Yes February 24, 2025 4:08pm Do you have a Healthcare Pow er of Airplane Cabin Attendant? 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 UNIFORMS fall, head injury, laceration Chief Complaint VENOUS INSUFFICIENCY , CELLULITIS, NONPRESSURE SALES REPRESENTATIVE UNIFORMS fall, head injury, laceration HOME DRAW LAB [...] LAB WORK December 18, 2024 10 :05am Chief Complaint Admit Date HOME DRAW LAB WORK December 18, 2024 10 :05am nausea vomiting February 24, 2025 5 :02pm nausea vomiting February 24, 2025 7 :00pm GASTRIC OUTLET OBSTRUCTION/ PARAESOPHAGE AL HERNIA March 05, 2025 3:52pm Reason for Visit Admit Date Debility March 05, 2025 3 :52pm Dysphagia March 05, 2025 3 :52pm Essential (primary) hypertension March 05, 2025 3:52pm Gout March 05, 2025 3 :52pm Hiatal hernia March 05, 2025 3 :52pm History of non-Hodgkin's lymphoma Octobe r 2024 3:52pm Hypogonadism March 05, 2025 3 :52pm Inclusion body myositis March 05 3:52pm N&V (nausea and vomiting) March 05, 2025 3:52pm Vitamin D deficiency March 05, 2025 3:52pm Abdominal pain March 05, 2025 3 :52pm Gastric outlet obstruction March 05, 2025 3:52pm Additional Source Comments (unrecognized sect ion and content) No Status Records FoundNo Status Records FoundNo Status Records Found INFORMATION SOURCE (unrecogn ized section and content) DATE CREATED AUTHOR 08/22/2022 [facility] DATE CREATED AUTHOR AUTHOR'S ORGANIZ ATION 03/13/2025 [facility] DATE CREATED AUTHOR AUTHOR'S ORGANIZ ATION 03/20/2025 [facility] Care Teams (unrecognized sec tion and content) [...] Zuniga DO Primary Care Provider, Attending P jenny Active Team Status: Inactive Member Role Status [...] Active Member Role/Relationship Status Dates Dr. Tee Pendleton MD Family [...] December 18, 2024 End: December 18, 2024 Team Status: Active Member Role/Relationship Status Dates Dr. Taylor Zuniga DO Primary care physician Active Team Status: Inactive Member Role/Relationship Status Dates Dr. Tayolr Zuniga DO Primary care physician Active Start: December 18, 2024 End: December 18, 2024 Dr. Taylor Zuniga DO Attending physician Active S tart: December 18, 2024 End: December 18, 2024 Team Status: Inactive Member Role/Relationship Status Dates Dr. Taylor Zuniga DO Primary care physician Active Start: February 24, 2025 End: February 24, 2025 Dr. Zee Alonso DO Attending physician Active Start: February 24, 2025 End: February 24, 2025 Dr. Zee Alonso DO Emergency Department Physician Ac tive Start: February 24, 2025 End: February 24, 2025 Team Status: Active Member Role/Relationship Status Dates Dr. Taylor Zuniga , DO Primary care physician Active Start: February 24, 2025 Dr. Zee Alonso , DO Emergency Departmen t Physician Active Start: February 24, 2025 Dr. Windy Jasso MD Attending physician Active Start: February 24, 2025 Team Status: Active Member Role/Relationship Status Dates Dr. Taylor Zuniga DO Primary care physician Active Start: March 05, 2025 Dr. Rey Henao MD Admitting physician Active Start: March 05, 2025 Dr. Rey Henao MD Attending physician Active Start: March 05, 2025 Goals (unrecognized section and content) Goals may [...] BE BASED ON THE PRIMARY CLINICAL RECORDS. [facility] [place] [facility]. provides no warranty or guarantee of the accuracy or completeness of information in this document.
[2025-04-06 08:17] LABS: Hematocrit 33.7 % (40-54); Hemoglobin 11.2 g/dL (13.0-16.5); Mean Corp Hgb Conc 33.2 g/dL (32-36); Mean Corpuscular Volume 92.3 fL (80-94); Mean Platelet Vol. 11.1 fl (6.2-12.0); Platelet Count 188 K/mm3 (150-450); RBC Distribution Width CV 13.4 % (11.6-14.6); RBC Distribution Width SD 45.7 fl (35.1-43.9); Red Blood Count 3.65 M/mm3 (4.6-6.2); White Blood Count 7.5 K/mm3 (4.4-11.0)
[2025-04-06 08:44] LABS: AST(SGOT) 28 U/L (<=37); Alanine Aminotransfer ALT/SGPT 18 U/L (<=46); Albumin, Serum 2.9 g/dL (3.4-4.8); Alkaline Phosphatase 50 U/L (40-129); Anion Gap 8 (5-15); BUN 15 mg/dL (4-19); BUN/Creat Ratio 42.5 RATIO (10-20); Calcium,Total 8.9 mg/dL (7.6-11.0); Carbon Dioxide 25.7 mmol/L (21.0-32.0); Chloride 97 mmol/L (98-108); Globulin 3.0 g/dL (2.2-4.2); Glucose 104 mg/dL (70-99); Potassium 4.8 mmol/L (3.3-5.1); Vitamin B12 1620 pg/mL (180-914)
== END ==
LOC: OLS.ACH 05:00
PROVIDERS: PCP Internal Medicine; Visit Provider Internal Medicine
DX: K21.9 Gastro-esophageal reflux disease without esophagitis (principal); C85.90 Non-Hodgkin lymphoma, unspecified, unspecified site; Z48.815 Encounter for surgical aftercare following surgery on the digestive system
CPT/HCPCS: 36415; 80053; 82607; 85027

== ENCOUNTER → 2025-04-20 05:00 | Outpatient (REF) | payer MEDICARE, OTHER, SELFPAY ==
--- OUTSIDE RECORDS SUMMARY | 2025-04-20 04:15 | XMS RPT_ITS | CCD ---
Author Organization [facility] Care Team Providers Care Associate Project Manager Name Role Phone Fast DO, Taylor A Attending Unavailable Fast DO, Taylor A Consulting Unavailable Fast DO, Taylor A Unavailable Manchak DULITE MACHINE BLUER, Tere Unavailable Unavailable Unavailable Unavailable Fast DO, [...] tape] Propensity to adverse reactions 9 Unknown [facility] (9 sources) Bacitracin Drug Allergy 9 Itching [facility] (9 sources) Neomycin Drug Allergy 9 Itching [facility] (9 sources) Polymyxin B Drug Allergy 9 Itching [facility] (1 source) Adhesive agent; Translations: [ADHESIVE] Propensity to adverse reactions to drug (disorder) 9 [facility] (1 source) NEOMYCIN-BACITR ACIN-POLYMYXIN; Translations: [NEOMYCIN-BACIT RACIN-POLYMYXIN ] Propensity to adverse reactions to drug (disorder) 6 [facility] (1 source) Bacitracin Drug Allergy 5 [facility] (1 source) Neomycin Drug Allergy 5 [facility] (1 source) polymyxin B Drug allergy (disorder) 5 [facility] Medications Current Medications Medication Drug Class(es) Dates Sig (Normalized) Sig (Original) aspirin 81 mg chewable tablet (1 source) Platelet Aggregation Inhibitor, Nonsteroidal Anti-inflammatory Drug Start: 03-05-2025 Aspirin 81 mg tablet,chewable Active 1 {tbl} PO DAILY March 04, 2025 11:00pm [facility] Complies with drug therapy Start: 03-05-2025 Aspirin 81 mg tablet,chewable Active 1 {tbl} PO DAILY March 04, 2025 11:00pm [facility] Complies with drug therapy cetirizine hydrochloride [...] therapy Start: 07-31-2016 take 1000 [IU] by [facility] once daily Cholecalciferol (Vitamin D3) 1000 U Active 1000 U PO DAILY July 31, 2016 12:00am supplement take 1 tablet by [facility] once daily Vitamin D3 125 mcg (5,000 [...] therapy Start: 02-12-2023 take 2 tablets by [facility] once daily lisinopriL 5 mg oral tablet 2 (two) tablet qd for 90 days Quantity: 180 {Tablet} Refills: 3 Ordered: 12-Feb-2023 Fast DO, Taylor A Fast DO, Taylor A Start : 12-Feb-2023 Active Comments: he has dysphagia and doesnt want the larger pill Start: 01-15-2023 take 2 tablets by [facility] once daily lisinopriL 5 mg oral tablet 2 (two) tablet qd for 90 days Quantity: 180 {Tablet} Refills: 3 Ordered: 15-Jan-2023 Fast DO, Taylor A Fast DO, Taylor A Start : 15-Jan-2023 Active Comments: he has dysphagia and doesnt want the larger pill Start: 12-25-2022 take 2 tablets by [facility] once daily lisinopriL 5 mg oral tablet [...] Start: 12-17-2022 take 1 capsule by mo [facility] once daily Turmeric 400 mg capsule Active [...] at some pointdiagnosed by muscle biopsy at [facility] 1995 had vns and therapy into assess and do all they coulddiagnosed by muscle biopsy at [facility] 1995 Other screening for suspected conditions [...] Profile (BMP )on 04-17-2025 BUN Normal 4-19 [facility] Comment on above: Result Comment: Canc elled via OM: Order edited - Discontinuing original order Performed By: #### L 100.0100, L500.2500 #### [facility] [address] [facility] [address] BUN/CRE Normal 10-20 [facility] Comment on above: Result Comment: Canc elled via OM: Order edited - Discontinuing original order Performed By: #### L 100.0100, L500.2500 #### [facility] [address] [facility] [address] Calcium Normal 7.6-11.0 [facility] Comment on above: Result Comment: Canc elled via OM: Order edited - Discontinuing original order Performed By: #### L 100.0100, L500.2500 #### [facility] [address] [facility] [address] CL Normal 98-108 [facility] Comment on above: Result Comment: Canc elled via OM: Order edited - Discontinuing original order Performed By: #### L 100.0100, L500.2500 #### [facility] [address] [facility] [address] CO2 Normal 21.0-32.0 [facility] Comment on above: Result Comment: Canc elled via OM: Order edited - Discontinuing original order Performed By: #### L 100.0100, L500.2500 #### [facility] [address] [place], [address] CREAT,SERUM Normal 0.70-1.20 [facility] Comment on above: Result Comment: Canc elled via OM: Order edited - Discontinuing original order Performed By: #### L 100.0100, L500.2500 #### [facility] [address] [place], [address] eGFR Normal >60 [facility] Comment on above: Result Comment: Canc elled via OM: Order edited - Discontinuing original order Performed By: #### L 100.0100, L500.2500 #### [facility] [address] [place], [address] GAP Normal 5-15 [facility] Comment on above: Result Comment: Canc elled via OM: Order edited - Discontinuing original order Performed By: #### L 100.0100, L500.2500 #### [facility] [address] [place], [address] GLU Normal 70-99 [facility] Comment on above: Result Comment: Canc elled via OM: Order edited - Discontinuing original order Performed By: #### L 100.0100, L500.2500 #### [facility] [address] [place], [address] Potassium Normal 3.3-5.1 [facility] Comment on above: Result Comment: Canc elled via OM: Order edited - Discontinuing original order Performed By: #### L 100.0100, L500.2500 #### [facility] [address] [place], [address] Basic Metabolic Profile (BMP) Normal 133-145 [facility] Comment on above: Result Comment: Canc elled via OM: Order edited - Discontinuing original order Performed By: #### L 100.0100, L500.2500 #### [facility] [address] [place], [address] CBC W/Diff, Automatedon 12-1 Absolute Neut Normal 2.0-7.7 [facility] Comment on above: Result Comment: Canc elled via OM: Order edited - Discontinuing original order Performed By: #### L 100.0100, L500.2500 #### [facility] [address] [place], [address] HCT Normal 40-54 [facility] Comment on above: Result Comment: Canc elled via OM: Order edited - Discontinuing original order Performed By: #### L 100.0100, L500.2500 #### [facility] [address] [place], [address] HGB Normal 13.0-16.5 [facility] Comment on above: Result Comment: Canc elled via OM: Order edited - Discontinuing original order Performed By: #### L 100.0100, L500.2500 #### [facility] [address] [place], [address] MCH Normal 27.0-32.0 [facility] Comment on above: Result Comment: Canc elled via OM: Order edited - Discontinuing original order Performed By: #### L 100.0100, L500.2500 #### [facility] [address] [place], [address] MCHC Normal 32-36 [facility] Comment on above: Result Comment: Canc elled via OM: Order edited - Discontinuing original order Performed By: #### L 100.0100, L500.2500 #### [facility] [address] [place], [address] MCV Normal 80-94 [facility] Comment on above: Result Comment: Canc elled via OM: Order edited - Discontinuing original order Performed By: #### L 100.0100, L500.2500 #### [facility] [address] [place], [address] NEUT% Normal 47-70 [facility] Comment on above: Result Comment: Canc elled via OM: Order edited - Discontinuing original order Performed By: #### L 100.0100, L500.2500 #### [facility] [address] [place], [address] PLT Normal 150-450 [facility] Comment on above: Result Comment: Canc elled via OM: Order edited - Discontinuing original order Performed By: #### L 100.0100, L500.2500 #### [facility] [address] [place], [address] RBC Normal 4.6-6.2 [facility] Comment on above: Result Comment: Canc elled via OM: Order edited - Discontinuing original order Performed By: #### L 100.0100, L500.2500 #### [facility] [address] [place], [address] RDW CV Normal 11.6-14.6 [facility] Comment on above: Result Comment: Canc elled via OM: Order edited - Discontinuing original order Performed By: #### L 100.0100, L500.2500 #### [facility] [address] [place], [address] RDW SD Normal 35.1-43.9 [facility] Comment on above: Result Comment: Canc elled via OM: Order edited - Discontinuing original order Performed By: #### L 100.0100, L500.2500 #### [facility] [address] [place], [address] WBC Normal 4.4-11.0 [facility] Comment on above: Result Comment: Canc elled via OM: Order edited - Discontinuing original order Performed By: #### L 100.0100, L500.2500 #### [facility] [address] [place], [address] Basic Metabolic Profile (BMP )on 04-10-2025 BUN Normal 4-19 [facility] Comment on above: Result Comment: Canc elled via OM: Order edited - Discontinuing original order Performed By: #### L 100.0100, L500.2500 #### [facility] [address] [place], [address] BUN/CRE Normal 10-20 [facility] Comment on above: Result Comment: Canc elled via OM: Order edited - Discontinuing original order Performed By: #### L 100.0100, L500.2500 #### [facility] [address] [place], [address] Calcium Normal 7.6-11.0 [facility] Comment on above: Result Comment: Canc elled via OM: Order edited - Discontinuing original order Performed By: #### L 100.0100, L500.2500 #### [facility] [address] [place], [address] CL Normal 98-108 [facility] Comment on above: Result Comment: Canc elled via OM: Order edited - Discontinuing original order Performed By: #### L 100.0100, L500.2500 #### [facility] [address] [place], [address] CO2 Normal 21.0-32.0 [facility] Comment on above: Result Comment: Canc elled via OM: Order edited - Discontinuing original order Performed By: #### L 100.0100, L500.2500 #### [facility] [address] [place], [address] CREAT,SERUM Normal 0.70-1.20 [facility] Comment on above: Result Comment: Canc elled via OM: Order edited - Discontinuing original order Performed By: #### L 100.0100, L500.2500 #### [facility] [address] [place], [address] eGFR Normal >60 [facility] Comment on above: Result Comment: Canc elled via OM: Order edited - Discontinuing original order Performed By: #### L 100.0100, L500.2500 #### [facility] [address] [place], [address] GAP Normal 5-15 [facility] Comment on above: Result Comment: Canc elled via OM: Order edited - Discontinuing original order Performed By: #### L 100.0100, L500.2500 #### [facility] [address] [place], [address] GLU Normal 70-99 [facility] Comment on above: Result Comment: Canc elled via OM: Order edited - Discontinuing original order Performed By: #### L 100.0100, L500.2500 #### [facility] [address] [place], [address] Potassium Normal 3.3-5.1 [facility] Comment on above: Result Comment: Canc elled via OM: Order edited - Discontinuing original order Performed By: #### L 100.0100, L500.2500 #### [facility] [address] [place], [address] Basic Metabolic Profile (BMP) Normal 133-145 [facility] Comment on above: Result Comment: Canc elled via OM: Order edited - Discontinuing original order Performed By: #### L 100.0100, L500.2500 #### [facility] [address] [place], [address] CBC W/Diff, Automatedon 12-0 -2024 Absolute Neut Normal 2.0-7.7 [facility] Comment on above: Result Comment: Canc elled via OM: Order edited - Discontinuing original order Performed By: #### L 100.0100, L500.2500 #### [facility] [address] [place], [address] HCT Normal 40-54 [facility] Comment on above: Result Comment: Canc elled via OM: Order edited - Discontinuing original order Performed By: #### L 100.0100, L500.2500 #### [facility] [address] [place], [address] HGB Normal 13.0-16.5 [facility] Comment on above: Result Comment: Canc elled via OM: Order edited - Discontinuing original order Performed By: #### L 100.0100, L500.2500 #### [facility] [address] [place], [address] MCH Normal 27.0-32.0 [facility] Comment on above: Result Comment: Canc elled via OM: Order edited - Discontinuing original order Performed By: #### L 100.0100, L500.2500 #### [facility] [address] [place], [address] MCHC Normal 32-36 [facility] Comment on above: Result Comment: Canc elled via OM: Order edited - Discontinuing original order Performed By: #### L 100.0100, L500.2500 #### [facility] [address] [place], [address] MCV Normal 80-94 [facility] Comment on above: Result Comment: Canc elled via OM: Order edited - Discontinuing original order Performed By: #### L 100.0100, L500.2500 #### [facility] [address] [place], [address] NEUT% Normal 47-70 [facility] Comment on above: Result Comment: Canc elled via OM: Order edited - Discontinuing original order Performed By: #### L 100.0100, L500.2500 #### [facility] [address] [place], [address] PLT Normal 150-450 [facility] Comment on above: Result Comment: Canc elled via OM: Order edited - Discontinuing original order Performed By: #### L 100.0100, L500.2500 #### [facility] [address] [place], [address] RBC Normal 4.6-6.2 [facility] Comment on above: Result Comment: Canc elled via OM: Order edited - Discontinuing original order Performed By: #### L 100.0100, L500.2500 #### [facility] [address] [place], [address] RDW CV Normal 11.6-14.6 [facility] Comment on above: Result Comment: Canc elled via OM: Order edited - Discontinuing original order Performed By: #### L 100.0100, L500.2500 #### [facility] [address] [place], [address] RDW SD Normal 35.1-43.9 [facility] Comment on above: Result Comment: Canc elled via OM: Order edited - Discontinuing original order Performed By: #### L 100.0100, L500.2500 #### [facility] [address] [place], [address] WBC Normal 4.4-11.0 [facility] Comment on above: Result Comment: Canc elled via OM: Order edited - Discontinuing original order Performed By: #### L 100.0100, L500.2500 #### [facility] [address] [place], [address] Basic Metabolic Profile (BMP )on 04-03-2025 BUN Normal 4-19 [facility] Comment on above: Result Comment: Canc elled via OM: Order edited - Discontinuing original order Performed By: #### L 506.1001, L500.4050, L501.9520, L501.9985, L100.0100 #### [facility] [address] [place], [address] BUN/CRE Normal 10-20 [facility] Comment on above: Result Comment: Canc elled via OM: Order edited - Discontinuing original order Performed By: #### L 506.1001, L500.4050, L501.9520, L501.9985, L100.0100 #### [facility] [address] [place], [address] Calcium Normal 7.6-11.0 [facility] Comment on above: Result Comment: Canc elled via OM: Order edited - Discontinuing original order Performed By: #### L 506.1001, L500.4050, L501.9520, L501.9985, L100.0100 #### [facility] [address] [place], [address] CL Normal 98-108 [facility] Comment on above: Result Comment: Canc elled via OM: Order edited - Discontinuing original order Performed By: #### L 506.1001, L500.4050, L501.9520, L501.9985, L100.0100 #### [facility] [address] [place], [address] CO2 Normal 21.0-32.0 [facility] Comment on above: Result Comment: Canc elled via OM: Order edited - Discontinuing original order Performed By: #### L 506.1001, L500.4050, L501.9520, L501.9985, L100.0100 #### [facility] [address] [place], [address] CREAT,SERUM Normal 0.70-1.20 [facility] Comment on above: Result Comment: Canc elled via OM: Order edited - Discontinuing original order Performed By: #### L 506.1001, L500.4050, L501.9520, L501.9985, L100.0100 #### [facility] [address] [place], [address] eGFR Normal >60 [facility] Comment on above: Result Comment: Canc elled via OM: Order edited - Discontinuing original order Performed By: #### L 506.1001, L500.4050, L501.9520, L501.9985, L100.0100 #### [facility] [address] [place], [address] GAP Normal 5-15 [facility] Comment on above: Result Comment: Canc elled via OM: Order edited - Discontinuing original order Performed By: #### L 506.1001, L500.4050, L501.9520, L501.9985, L100.0100 #### [facility] [address] [place], [address] GLU Normal 70-99 [facility] Comment on above: Result Comment: Canc elled via OM: Order edited - Discontinuing original order Performed By: #### L 506.1001, L500.4050, L501.9520, L501.9985, L100.0100 #### [facility] [address] [place], [address] Potassium Normal 3.3-5.1 [facility] Comment on above: Result Comment: Canc elled via OM: Order edited - Discontinuing original order Performed By: #### L 506.1001, L500.4050, L501.9520, L501.9985, L100.0100 #### [facility] [address] [place], [address] Basic Metabolic Profile (BMP) Normal 133-145 [facility] Comment on above: Result Comment: Canc elled via OM: Order edited - Discontinuing original order Performed By: #### L 506.1001, L500.4050, L501.9520, L501.9985, L100.0100 #### [facility] [address] [place], [address] CBC W/Diff, Automatedon 11-2 -2024 Absolute Neut Normal 2.0-7.7 [facility] Comment on above: Result Comment: Canc elled via OM: Order edited - Discontinuing original order Performed By: #### L 506.1001, L500.4050, L501.9520, L501.9985, L100.0100 #### [facility] [address] [place], [address] HCT Normal 40-54 [facility] Comment on above: Result Comment: Canc elled via OM: Order edited - Discontinuing original order Performed By: #### L 506.1001, L500.4050, L501.9520, L501.9985, L100.0100 #### [facility] [address] [place], [address] HGB Normal 13.0-16.5 [facility] Comment on above: Result Comment: Canc elled via OM: Order edited - Discontinuing original order Performed By: #### L 506.1001, L500.4050, L501.9520, L501.9985, L100.0100 #### [facility] [address] [place], [address] MCH Normal 27.0-32.0 [facility] Comment on above: Result Comment: Canc elled via OM: Order edited - Discontinuing original order Performed By: #### L 506.1001, L500.4050, L501.9520, L501.9985, L100.0100 #### [facility] [address] [place], [address] MCHC Normal 32-36 [facility] Comment on above: Result Comment: Canc elled via OM: Order edited - Discontinuing original order Performed By: #### L 506.1001, L500.4050, L501.9520, L501.9985, L100.0100 #### [facility] [address] [place], [address] MCV Normal 80-94 [facility] Comment on above: Result Comment: Canc elled via OM: Order edited - Discontinuing original order Performed By: #### L 506.1001, L500.4050, L501.9520, L501.9985, L100.0100 #### [facility] [address] [place], [address] NEUT% Normal 47-70 [facility] Comment on above: Result Comment: Canc elled via OM: Order edited - Discontinuing original order Performed By: #### L 506.1001, L500.4050, L501.9520, L501.9985, L100.0100 #### [facility] [address] [place], [address] PLT Normal 150-450 [facility] Comment on above: Result Comment: Canc elled via OM: Order edited - Discontinuing original order Performed By: #### L 506.1001, L500.4050, L501.9520, L501.9985, L100.0100 #### [facility] [address] [place], [address] RBC Normal 4.6-6.2 [facility] Comment on above: Result Comment: Canc elled via OM: Order edited - Discontinuing original order Performed By: #### L 506.1001, L500.4050, L501.9520, L501.9985, L100.0100 #### [facility] [address] [place], [address] RDW CV Normal 11.6-14.6 [facility] Comment on above: Result Comment: Canc elled via OM: Order edited - Discontinuing original order Performed By: #### L 506.1001, L500.4050, L501.9520, L501.9985, L100.0100 #### [facility] [address] [place], [address] RDW SD Normal 35.1-43.9 [facility] Comment on above: Result Comment: Canc elled via OM: Order edited - Discontinuing original order Performed By: #### L 506.1001, L500.4050, L501.9520, L501.9985, L100.0100 #### [facility] [address] [place], [address] WBC Normal 4.4-11.0 [facility] Comment on above: Result Comment: Canc elled via OM: Order edited - Discontinuing original order Performed By: #### L 506.1001, L500.4050, L501.9520, L501.9985, L100.0100 #### [facility] [address] [place], [address] Basic Metabolic Profile (BMP )on 03-27-2025 BUN Normal 4-19 [facility] Comment on above: Result Comment: Canc elled via OM: Order edited - Discontinuing original order Performed By: #### L 506.1001, L500.4050, L501.9520, L501.9985, L100.0100 #### [facility] [address] [place], [address] BUN/CRE Normal 10-20 [facility] Comment on above: Result Comment: Canc elled via OM: Order edited - Discontinuing original order Performed By: #### L 506.1001, L500.4050, L501.9520, L501.9985, L100.0100 #### [facility] [address] [place], [address] Calcium Normal 7.6-11.0 [facility] Comment on above: Result Comment: Canc elled via OM: Order edited - Discontinuing original order Performed By: #### L 506.1001, L500.4050, L501.9520, L501.9985, L100.0100 #### [facility] [address] [place], [address] CL Normal 98-108 [facility] Comment on above: Result Comment: Canc elled via OM: Order edited - Discontinuing original order Performed By: #### L 506.1001, L500.4050, L501.9520, L501.9985, L100.0100 #### [facility] [address] [place], [address] CO2 Normal 21.0-32.0 [facility] Comment on above: Result Comment: Canc elled via OM: Order edited - Discontinuing original order Performed By: #### L 506.1001, L500.4050, L501.9520, L501.9985, L100.0100 #### [facility] [address] [place], [address] CREAT,SERUM Normal 0.70-1.20 [facility] Comment on above: Result Comment: Can elled via OM: Order edited - Discontinuing original order Performed By: #### L 506.1001, L500.4050, L501.9520, L501.9985, L100.0100 #### [facility] [address] [place], [address] eGFR Normal >60 [facility] Comment on above: Result Comment: Can elled via OM: Order edited - Discontinuing original order Performed By: #### L 506.1001, L500.4050, L501.9520, L501.9985, L100.0100 #### [facility] [address] [place], [address] GAP Normal 5-15 [facility] Comment on above: Result Comment: Canc elled via OM: Order edited - Discontinuing original order Performed By: #### L 506.1001, L500.4050, L501.9520, L501.9985, L100.0100 #### [facility] [address] [place], [address] GLU Normal 70-99 [facility] Comment on above: Result Comment: Canc elled via OM: Order edited - Discontinuing original order Performed By: #### L 506.1001, L500.4050, L501.9520, L501.9985, L100.0100 #### [facility] [address] [place], [address] Potassium Normal 3.3-5.1 [facility] Comment on above: Result Comment: Canc elled via OM: Order edited - Discontinuing original order Performed By: #### L 506.1001, L500.4050, L501.9520, L501.9985, L100.0100 #### [facility] [address] [place], [address] Basic Metabolic Profile (BMP) Normal 133-145 [facility] Comment on above: Result Comment: Canc elled via OM: Order edited - Discontinuing original order Performed By: #### L 506.1001, L500.4050, L501.9520, L501.9985, L100.0100 #### [facility] [address] [place], [address] CBC W/Diff, Automatedon 11-2 Absolute Neut Normal 2.0-7.7 [facility] Comment on above: Result Comment: Canc elled via OM: Order edited - Discontinuing original order Performed By: #### L 506.1001, L500.4050, L501.9520, L501.9985, L100.0100 #### [facility] [address] [place], [address] HCT Normal 40-54 [facility] Comment on above: Result Comment: Canc elled via OM: Order edited - Discontinuing original order Performed By: #### L 506.1001, L500.4050, L501.9520, L501.9985, L100.0100 #### [facility] [address] [place], [address] HGB Normal 13.0-16.5 [facility] Comment on above: Result Comment: Canc elled via OM: Order edited - Discontinuing original order Performed By: #### L 506.1001, L500.4050, L501.9520, L501.9985, L100.0100 #### [facility] [address] [place], [address] MCH Normal 27.0-32.0 [facility] Comment on above: Result Comment: Canc elled via OM: Order edited - Discontinuing original order Performed By: #### L 506.1001, L500.4050, L501.9520, L501.9985, L100.0100 #### [facility] [address] [place], [address] MCHC Normal 32-36 [facility] Comment on above: Result Comment: Canc elled via OM: Order edited - Discontinuing original order Performed By: #### L 506.1001, L500.4050, L501.9520, L501.9985, L100.0100 #### [facility] [address] [place], [address] MCV Normal 80-94 [facility] Comment on above: Result Comment: Canc elled via OM: Order edited - Discontinuing original order Performed By: #### L 506.1001, L500.4050, L501.9520, L501.9985, L100.0100 #### [facility] [address] [place], [address] NEUT% Normal 47-70 [facility] Comment on above: Result Comment: Canc elled via OM: Order edited - Discontinuing original order Performed By: #### L 506.1001, L500.4050, L501.9520, L501.9985, L100.0100 #### [facility] [address] [place], [address] PLT Normal 150-450 [facility] Comment on above: Result Comment: Canc elled via OM: Order edited - Discontinuing original order Performed By: #### L 506.1001, L500.4050, L501.9520, L501.9985, L100.0100 #### [facility] [address] [place], [address] RBC Normal 4.6-6.2 [facility] Comment on above: Result Comment: Canc elled via OM: Order edited - Discontinuing original order Performed By: #### L 506.1001, L500.4050, L501.9520, L501.9985, L100.0100 #### [facility] [address] [place], [address] RDW CV Normal 11.6-14.6 [facility] Comment on above: Result Comment: Canc elled via OM: Order edited - Discontinuing original order Performed By: #### L 506.1001, L500.4050, L501.9520, L501.9985, L100.0100 #### [facility] [address] [place], [address] RDW SD Normal 35.1-43.9 [facility] Comment on above: Result Comment: Canc elled via OM: Order edited - Discontinuing original order Performed By: #### L 506.1001, L500.4050, L501.9520, L501.9985, L100.0100 #### [facility] [address] [place], [address] WBC Normal 4.4-11.0 [facility] Comment on above: Result Comment: Canc elled via OM: Order edited - Discontinuing original order Performed By: #### L 506.1001, L500.4050, L501.9520, L501.9985, L100.0100 #### [facility] [address] [place], [address] Basic Metabolic Profile (BMP )on 03-20-2025 BUN Normal 4-19 [facility] Comment on above: Result Comment: Canc elled via OM: Order edited - Discontinuing original order Performed By: #### L 100.0100, L500.2500 #### [facility] [address] [place], [address] BUN/CRE Normal 10-20 [facility] Comment on above: Result Comment: Canc elled via OM: Order edited - Discontinuing original order Performed By: #### L 100.0100, L500.2500 #### [facility] [address] [place], [address] Calcium Normal 7.6-11.0 [facility] Comment on above: Result Comment: Canc elled via OM: Order edited - Discontinuing original order Performed By: #### L 100.0100, L500.2500 #### [facility] [address] [place], [address] CL Normal 98-108 [facility] Comment on above: Result Comment: Canc elled via OM: Order edited - Discontinuing original order Performed By: #### L 100.0100, L500.2500 #### [facility] [address] [place], [address] CO2 Normal 21.0-32.0 [facility] Comment on above: Result Comment: Canc elled via OM: Order edited - Discontinuing original order Performed By: #### L 100.0100, L500.2500 #### [facility] [address] [place], [address] CREAT,SERUM Normal 0.70-1.20 [facility] Comment on above: Result Comment: Canc elled via OM: Order edited - Discontinuing original order Performed By: #### L 100.0100, L500.2500 #### [facility] [address] [place], [address] eGFR Normal >60 [facility] Comment on above: Result Comment: Canc elled via OM: Order edited - Discontinuing original order Performed By: #### L 100.0100, L500.2500 #### [facility] [address] [place], [address] GAP Normal 5-15 [facility] Comment on above: Result Comment: Canc elled via OM: Order edited - Discontinuing original order Performed By: #### L 100.0100, L500.2500 #### [facility] [address] [place], [address] GLU Normal 70-99 [facility] Comment on above: Result Comment: Canc elled via OM: Order edited - Discontinuing original order Performed By: #### L 100.0100, L500.2500 #### [facility] [address] [place], [address] Potassium Normal 3.3-5.1 [facility] Comment on above: Result Comment: Canc elled via OM: Order edited - Discontinuing original order Performed By: #### L 100.0100, L500.2500 #### [facility] [address] [place], [address] Basic Metabolic Profile (BMP) Normal 133-145 [facility] Comment on above: Result Comment: Canc elled via OM: Order edited - Discontinuing original order Performed By: #### L 100.0100, L500.2500 #### [facility] [address] [place], [address] CBC W/Diff, Automatedon 11- Absolute Neut Normal 2.0-7.7 [facility] Comment on above: Result Comment: Canc elled via OM: Order edited - Discontinuing original order Performed By: #### L 100.0100, L500.2500 #### [facility] [address] [place], [address] HCT Normal 40-54 [facility] Comment on above: Result Comment: Canc elled via OM: Order edited - Discontinuing original order Performed By: #### L 100.0100, L500.2500 #### [facility] [address] [place], [address] HGB Normal 13.0-16.5 [facility] Comment on above: Result Comment: Canc elled via OM: Order edited - Discontinuing original order Performed By: #### L 100.0100, L500.2500 #### [facility] [address] [place], [address] MCH Normal 27.0-32.0 [facility] Comment on above: Result Comment: Canc elled via OM: Order edited - Discontinuing original order Performed By: #### L 100.0100, L500.2500 #### [facility] [address] [place], [address] MCHC Normal 32-36 [facility] Comment on above: Result Comment: Canc elled via OM: Order edited - Discontinuing original order Performed By: #### L 100.0100, L500.2500 #### [facility] [address] [place], [address] MCV Normal 80-94 [facility] Comment on above: Result Comment: Canc elled via OM: Order edited - Discontinuing original order Performed By: #### L 100.0100, L500.2500 #### [facility] [address] [place], [address] NEUT% Normal 47-70 [facility] Comment on above: Result Comment: Canc elled via OM: Order edited - Discontinuing original order Performed By: #### L 100.0100, L500.2500 #### [facility] [address] [place], [address] PLT Normal 150-450 [facility] Comment on above: Result Comment: Canc elled via OM: Order edited - Discontinuing original order Performed By: #### L 100.0100, L500.2500 #### [facility] [address] [place], [address] RBC Normal 4.6-6.2 [facility] Comment on above: Result Comment: Canc elled via OM: Order edited - Discontinuing original order Performed By: #### L 100.0100, L500.2500 #### [facility] [address] [place], [address] RDW CV Normal 11.6-14.6 [facility] Comment on above: Result Comment: Canc elled via OM: Order edited - Discontinuing original order Performed By: #### L 100.0100, L500.2500 #### [facility] [address] [place], [address] RDW SD Normal 35.1-43.9 [facility] Comment on above: Result Comment: Canc elled via OM: Order edited - Discontinuing original order Performed By: #### L 100.0100, L500.2500 #### [facility] [address] [place], [address] WBC Normal 4.4-11.0 [facility] Comment on above: Result Comment: Canc elled via OM: Order edited - Discontinuing original order Performed By: #### L 100.0100, L500.2500 #### [facility] [address] [place], [address] Urine Cultureon 03-19-2025 URC Escherichia coli Hume Count 25,000-50,000 Escherichia coli: REACTION Ampicillin Islt [...] TMP SMX Islt BRENT <=20 S Normal [facility] Comment on above: Performed By: #### L 100.0100, L500.2500 #### [facility] [address] [place], [address] Urinalysis, Completeon 03-17 BACTERIA 3+ /hpf Normal None Seen [facility] Comment on above: Order Comment: USHA TER SPECIMEN Performed By: #### M 100.2200, L400.0001 #### [facility] [address] [place], [address] WBC 0-5 SEEN Normal 0-5 [facility] Comment on above: Order Comment: USHA TER SPECIMEN Performed By: #### M 100.2200, L400.0001 #### [facility] [address] [place], [address] EPI,SQUAMOUS 0 SEEN Normal 0-5 [facility] Comment on above: Order Comment: USHA TER SPECIMEN Performed By: #### M 100.2200, L400.0001 #### [facility] [address] [place], [address] Mucus Ql (Urine sed) 0 SEEN Normal [facility] Comment on above: Order Comment: USHA TER SPECIMEN Performed By: #### M 100.2200, L400.0001 #### [facility] [address] [place], [address] RBC 0 SEEN Normal 0-5 [facility] Comment on above: Order Comment: USHA TER SPECIMEN Performed By: #### M 100.2200, L400.0001 #### [facility] [address] [place], [address] Basic Metabolic Profile (BMP )on 03-16-2025 BUN Normal 4-19 [facility] Comment on above: Result Comment: Canc elled via OM: Order Changed Performed By: #### L 100.0100, L500.2500 #### [facility] [address] [place], [address] BUN/CRE Normal 10-20 [facility] Comment on above: Result Comment: Canc elled via OM: Order Changed Performed By: #### L 100.0100, L500.2500 #### [facility] [address] [place], [address] Calcium Normal 7.6-11.0 [facility] Comment on above: Result Comment: Canc elled via OM: Order Changed Performed By: #### L 100.0100, L500.2500 #### [facility] [address] [place], [address] CL Normal 98-108 [facility] Comment on above: Result Comment: Canc elled via OM: Order Changed Performed By: #### L 100.0100, L500.2500 #### [facility] [address] [place], [address] CO2 Normal 21.0-32.0 [facility] Comment on above: Result Comment: Canc elled via OM: Order Changed Performed By: #### L 100.0100, L500.2500 #### [facility] [address] [place], [address] CREAT,SERUM Normal 0.70-1.20 [facility] Comment on above: Result Comment: Canc elled via OM: Order Changed Performed By: #### L 100.0100, L500.2500 #### [facility] [address] [place], [address] eGFR Normal >60 [facility] Comment on above: Result Comment: Canc elled via OM: Order Changed Performed By: #### L 100.0100, L500.2500 #### [facility] [address] [place], [address] GAP Normal 5-15 [facility] Comment on above: Result Comment: Canc elled via OM: Order Changed Performed By: #### L 100.0100, L500.2500 #### [facility] [address] [place], [address] GLU Normal 70-99 [facility] Comment on above: Result Comment: Canc elled via OM: Order Changed Performed By: #### L 100.0100, L500.2500 #### [facility] [address] [place], [address] Potassium Normal 3.3-5.1 [facility] Comment on above: Result Comment: Canc elled via OM: Order Changed Performed By: #### L 100.0100, L500.2500 #### [facility] [address] [place], [address] Basic Metabolic Profile (BMP) Normal 133-145 [facility] Comment on above: Result Comment: Canc elled via OM: Order Changed Performed By: #### L 100.0100, L500.2500 #### [facility] [address] [place], [address] CBC W/Diff, Automatedon 11-1 0-2024 Absolute Neut Normal 2.0-7.7 [facility] Comment on above: Result Comment: Canc elled via OM: Order Changed Performed By: #### L 100.0100, L500.2500 #### [facility] [address] [place], [address] HCT Normal 40-54 [facility] Comment on above: Result Comment: Canc elled via OM: Order Changed Performed By: #### L 100.0100, L500.2500 #### [facility] [address] [place], [address] HGB Normal 13.0-16.5 [facility] Comment on above: Result Comment: Canc elled via OM: Order Changed Performed By: #### L 100.0100, L500.2500 #### [facility] [address] [place], [address] MCH Normal 27.0-32.0 [facility] Comment on above: Result Comment: Canc elled via OM: Order Changed Performed By: #### L 100.0100, L500.2500 #### [facility] [address] [place], [address] MCHC Normal 32-36 [facility] Comment on above: Result Comment: Canc elled via OM: Order Changed Performed By: #### L 100.0100, L500.2500 #### [facility] [address] [place], [address] MCV Normal 80-94 [facility] Comment on above: Result Comment: Canc elled via OM: Order Changed Performed By: #### L 100.0100, L500.2500 #### [facility] [address] [place], [address] NEUT% Normal 47-70 [facility] Comment on above: Result Comment: Canc elled via OM: Order Changed Performed By: #### L 100.0100, L500.2500 #### [facility] [address] [place], [address] PLT Normal 150-450 [facility] Comment on above: Result Comment: Canc elled via OM: Order Changed Performed By: #### L 100.0100, L500.2500 #### [facility] [address] [place], [address] RBC Normal 4.6-6.2 [facility] Comment on above: Result Comment: Canc elled via OM: Order Changed Performed By: #### L 100.0100, L500.2500 #### [facility] [address] [place], [address] RDW CV Normal 11.6-14.6 [facility] Comment on above: Result Comment: Canc elled via OM: Order Changed Performed By: #### L 100.0100, L500.2500 #### [facility] [address] [place], [address] RDW SD Normal 35.1-43.9 [facility] Comment on above: Result Comment: Canc elled via OM: Order Changed Performed By: #### L 100.0100, L500.2500 #### [facility] [address] [place], [address] WBC Normal 4.4-11.0 [facility] Comment on above: Result Comment: Canc elled via OM: Order Changed Performed By: #### L 100.0100, L500.2500 #### [facility] [address] [place], [address] Basic Metabolic Profile (BMP )on 03-15-2025 BUN Normal 4-19 [facility] Comment on above: Result Comment: Canc elled via OM: Order Changed Performed By: #### L 100.0100, L500.2500 #### [facility] [address] [place], [address] BUN/CRE Normal 10-20 [facility] Comment on above: Result Comment: Canc elled via OM: Order Changed Performed By: #### L 100.0100, L500.2500 #### [facility] [address] [place], [address] Calcium Normal 7.6-11.0 [facility] Comment on above: Result Comment: Canc elled via OM: Order Changed Performed By: #### L 100.0100, L500.2500 #### [facility] [address] [place], [address] CL Normal 98-108 [facility] Comment on above: Result Comment: Canc elled via OM: Order Changed Performed By: #### L 100.0100, L500.2500 #### [facility] [address] [place], [address] CO2 Normal 21.0-32.0 [facility] Comment on above: Result Comment: Canc elled via OM: Order Changed Performed By: #### L 100.0100, L500.2500 #### [facility] [address] [place], [address] CREAT,SERUM Normal 0.70-1.20 [facility] Comment on above: Result Comment: Canc elled via OM: Order Changed Performed By: #### L 100.0100, L500.2500 #### [facility] [address] [place], [address] eGFR Normal >60 [facility] Comment on above: Result Comment: Canc elled via OM: Order Changed Performed By: #### L 100.0100, L500.2500 #### [facility] [address] [place], [address] GAP Normal 5-15 [facility] Comment on above: Result Comment: Canc elled via OM: Order Changed Performed By: #### L 100.0100, L500.2500 #### [facility] [address] [place], [address] GLU Normal 70-99 [facility] Comment on above: Result Comment: Canc elled via OM: Order Changed Performed By: #### L 100.0100, L500.2500 #### [facility] [address] [place], [address] Potassium Normal 3.3-5.1 [facility] Comment on above: Result Comment: Canc elled via OM: Order Changed Performed By: #### L 100.0100, L500.2500 #### [facility] [address] [place], [address] Basic Metabolic Profile (BMP) Normal 133-145 [facility] Comment on above: Result Comment: Canc elled via OM: Order Changed Performed By: #### L 100.0100, L500.2500 #### [facility] [address] [place], [address] CBC W/Diff, Automatedon 11-0 -2024 Absolute Neut Normal 2.0-7.7 [facility] Comment on above: Result Comment: Canc elled via OM: Order Changed Performed By: #### L 100.0100, L500.2500 #### [facility] [address] [place], [address] HCT Normal 40-54 [facility] Comment on above: Result Comment: Canc elled via OM: Order Changed Performed By: #### L 100.0100, L500.2500 #### [facility] [address] [place], [address] HGB Normal 13.0-16.5 [facility] Comment on above: Result Comment: Canc elled via OM: Order Changed Performed By: #### L 100.0100, L500.2500 #### [facility] [address] [place], [address] MCH Normal 27.0-32.0 [facility] Comment on above: Result Comment: Canc elled via OM: Order Changed Performed By: #### L 100.0100, L500.2500 #### [facility] [address] [place], [address] MCHC Normal 32-36 [facility] Comment on above: Result Comment: Canc elled via OM: Order Changed Performed By: #### L 100.0100, L500.2500 #### [facility] [address] [place], [address] MCV Normal 80-94 [facility] Comment on above: Result Comment: Canc elled via OM: Order Changed Performed By: #### L 100.0100, L500.2500 #### [facility] [address] [place], [address] NEUT% Normal 47-70 [facility] Comment on above: Result Comment: Canc elled via OM: Order Changed Performed By: #### L 100.0100, L500.2500 #### [facility] [address] [place], [address] PLT Normal 150-450 [facility] Comment on above: Result Comment: Canc elled via OM: Order Changed Performed By: #### L 100.0100, L500.2500 #### [facility] [facility] [address] [place], [address] RBC Normal 4.6-6.2 [facility] Comment on above: Result Comment: Canc elled via OM: Order Changed Performed By: #### L 100.0100, L500.2500 #### [facility] [address] [place], [address] RDW CV Normal 11.6-14.6 [facility] Comment on above: Result Comment: Canc elled via OM: Order Changed Performed By: #### L 100.0100, L500.2500 #### [facility] [address] [place], [address] RDW SD Normal 35.1-43.9 [facility] Comment on above: Result Comment: Canc elled via OM: Order Changed Performed By: #### L 100.0100, L500.2500 #### [facility] [address] [place], [address] WBC Normal 4.4-11.0 [facility] Comment on above: Result Comment: Canc elled via OM: Order Changed Performed By: #### L 100.0100, L500.2500 #### [facility] [address] [place], [address] Basic Metabolic Profile (BMP )on 03-14-2025 BUN Normal 4-19 [facility] Comment on above: Result Comment: Canc elled via OM: Order Changed Performed By: #### L 100.0100, L500.2500 #### [facility] [address] [place], [address] BUN/CRE Normal 10-20 [facility] Comment on above: Result Comment: Canc elled via OM: Order Changed Performed By: #### L 100.0100, L500.2500 #### [facility] [address] [place], [address] Calcium Normal 7.6-11.0 [facility] Comment on above: Result Comment: Canc elled via OM: Order Changed Performed By: #### L 100.0100, L500.2500 #### [facility] [address] [place], [address] CL Normal 98-108 [facility] Comment on above: Result Comment: Canc elled via OM: Order Changed Performed By: #### L 100.0100, L500.2500 #### [facility] [address] [place], [address] CO2 Normal 21.0-32.0 [facility] Comment on above: Result Comment: Canc elled via OM: Order Changed Performed By: #### L 100.0100, L500.2500 #### [facility] [address] [place], [address] CREAT,SERUM Normal 0.70-1.20 [facility] Comment on above: Result Comment: Canc elled via OM: Order Changed Performed By: #### L 100.0100, L500.2500 #### [facility] [address] [place], [address] eGFR Normal >60 [facility] Comment on above: Result Comment: Canc elled via OM: Order Changed Performed By: #### L 100.0100, L500.2500 #### [facility] [address] [place], [address] GAP Normal 5-15 [facility] Comment on above: Result Comment: Canc elled via OM: Order Changed Performed By: #### L 100.0100, L500.2500 #### [facility] [address] [place], [address] GLU Normal 70-99 [facility] Comment on above: Result Comment: Canc elled via OM: Order Changed Performed By: #### L 100.0100, L500.2500 #### [facility] [address] [place], [address] Potassium Normal 3.3-5.1 [facility] Comment on above: Result Comment: Canc elled via OM: Order Changed Performed By: #### L 100.0100, L500.2500 #### [facility] [address] [place], [address] Basic Metabolic Profile (BMP) Normal 133-145 [facility] Comment on above: Result Comment: Canc elled via OM: Order Changed Performed By: #### L 100.0100, L500.2500 #### [facility] [address] [place], [address] CBC W/Diff, Automatedon 11-0 Absolute Neut Normal 2.0-7.7 [facility] Comment on above: Result Comment: Canc elled via OM: Order Changed Performed By: #### L 100.0100, L500.2500 #### [facility] [address] [place], [address] HCT Normal 40-54 [facility] Comment on above: Result Comment: Canc elled via OM: Order Changed Performed By: #### L 100.0100, L500.2500 #### [facility] [address] [place], [address] HGB Normal 13.0-16.5 [facility] Comment on above: Result Comment: Canc elled via OM: Order Changed Performed By: #### L 100.0100, L500.2500 #### [facility] [address] [place], [address] MCH Normal 27.0-32.0 [facility] Comment on above: Result Comment: Canc elled via OM: Order Changed Performed By: #### L 100.0100, L500.2500 #### [facility] [address] [place], [address] MCHC Normal 32-36 [facility] Comment on above: Result Comment: Canc elled via OM: Order Changed Performed By: #### L 100.0100, L500.2500 #### [facility] [address] [place], [address] MCV Normal 80-94 [facility] Comment on above: Result Comment: Canc elled via OM: Order Changed Performed By: #### L 100.0100, L500.2500 #### [facility] [address] [place], [address] NEUT% Normal 47-70 [facility] Comment on above: Result Comment: Canc elled via OM: Order Changed Performed By: #### L 100.0100, L500.2500 #### [facility] [address] [place], [address] PLT Normal 150-450 [facility] Comment on above: Result Comment: Canc elled via OM: Order Changed Performed By: #### L 100.0100, L500.2500 #### [facility] [address] [place], [address] RBC Normal 4.6-6.2 [facility] Comment on above: Result Comment: Canc elled via OM: Order Changed Performed By: #### L 100.0100, L500.2500 #### [facility] [address] [place], [address] RDW CV Normal 11.6-14.6 [facility] Comment on above: Result Comment: Canc elled via OM: Order Changed Performed By: #### L 100.0100, L500.2500 #### [facility] [address] [place], [address] RDW SD Normal 35.1-43.9 [facility] Comment on above: Result Comment: Canc elled via OM: Order Changed Performed By: #### L 100.0100, L500.2500 #### [facility] [address] [place], [address] WBC Normal 4.4-11.0 [facility] Comment on above: Result Comment: Canc elled via OM: Order Changed Performed By: #### L 100.0100, L500.2500 #### [facility] [address] [place], [address] Absolute lymphocyte countOrd ered By: Rey Henao on 03-13-2025 Lymphocytes Auto (Unsp spec) [#/Vol] 1.29 10*3/uL 0.83-4.51 [facility] Absolute neutrophil countOrd ered By: Rey Henao on 03-13-2025 Neutrophils (Bld) [#/Vol] 6.5 10*3/uL 2.0-7.7 [facility] Anion gap in Serum or Plasma Ordered By: Rey Henao on 03-13-2025 Anion gap [Moles/Vol] 9 mmol/L 5-15 [facility] Automated lymphocyte count a s percentage of total leukocytesOrdered By: Rey Henao on 03-13-2025 Lymphocytes/100 WBC Auto (Unsp spec) 13.7 % Low 19-41 [facility] Basic Metabolic Profile (BMP )on 03-13-2025 BUN/CRE 43.2 RATIO High 10-20 [facility] Comment on above: Performed By: #### L 506.1001, L500.4050, L501.9520, L501.9985, L100.0100 #### [facility] [address] [place], [address] Calcium [Mass/Vol] 8.6 mg/dL Normal 7.6-11.0 [facility] Comment on above: Performed By: #### L 506.1001, L500.4050, L501.9520, L501.9985, L100.0100 #### [facility] [address] [place], [address] Chloride [Moles/Vol] 101 mmol/L Normal 98-108 [facility] Comment on above: Performed By: #### L 506.1001, L500.4050, L501.9520, L501.9985, L100.0100 #### [facility] [address] [place], [address] CO2 [Moles/Vol] 23.0 mmol/L Normal 21.0-32.0 [facility] Comment on above: Performed By: #### L 506.1001, L500.4050, L501.9520, L501.9985, L100.0100 #### [facility] [address] [place], [address] Creatinine [Mass/Vol] 0.37 mg/dL Low 0.70-1.20 [facility] Comment on above: Performed By: #### L 506.1001, L500.4050, L501.9520, L501.9985, L100.0100 #### [facility] [address] [place], [address] ECRCL 59.81 ml/min Normal 50-250 [facility] Comment on above: Performed By: #### L 506.1001, L500.4050, L501.9520, L501.9985, L100.0100 #### [facility] [address] [place], [address] GAP 9 Normal 5-15 [facility] Comment on above: Performed By: #### L 506.1001, L500.4050, L501.9520, L501.9985, L100.0100 #### [facility] [address] [place], [address] GFR/1.73 sq M.predicted among non-blacks MDRD (S/P/Bld) [Vol rate/Area] 109 mL/min/{1.73_m2} Normal >60 [facility] Comment on above: Result Comment: mL/m in/1.73m2 CKD-EPI Creatinine Equation (2020) Performed By: #### L 506.1001, L500.4050, L501.9520, L501.9985, L100.0100 #### [facility] [address] [place], [address] Glucose [Mass/Vol] 129 mg/dL High 70-99 [facility] Comment on above: Performed By: #### L 506.1001, L500.4050, L501.9520, L501.9985, L100.0100 #### [facility] [address] [place], [address] Potassium [Moles/Vol] 4.2 mmol/L Normal 3.3-5.1 [facility] Comment on above: Performed By: #### L 506.1001, L500.4050, L501.9520, L501.9985, L100.0100 #### [facility] [address] [place], [address] Sodium [Moles/Vol] 132 mmol/L Low 133-145 [facility] Comment on above: Performed By: #### L 506.1001, L500.4050, L501.9520, L501.9985, L100.0100 #### [facility] [address] [place], [address] Urea nitrogen [Mass/Vol] 16 mg/dL Normal 4-19 [facility] Comment on above: Performed By: #### L 506.1001, L500.4050, L501.9520, L501.9985, L100.0100 #### [facility] [address] [place], [address] BUN Normal 4-19 [facility] Comment on above: Result Comment: Canc elled via OM: Order edited - Discontinuing original order Performed By: #### L 100.0100, L500.2500 #### [facility] [address] [place], [address] BUN/CRE Normal 10-20 [facility] Comment on above: Result Comment: Canc elled via OM: Order edited - Discontinuing original order Performed By: #### L 100.0100, L500.2500 #### [facility] [address] [place], [address] Calcium Normal 7.6-11.0 [facility] Comment on above: Result Comment: Canc elled via OM: Order edited - Discontinuing original order Performed By: #### L 100.0100, L500.2500 #### [facility] [address] [place], [address] CL Normal 98-108 [facility] Comment on above: Result Comment: Canc elled via OM: Order edited - Discontinuing original order Performed By: #### L 100.0100, L500.2500 #### [facility] [address] [place], [address] CO2 Normal 21.0-32.0 [facility] Comment on above: Result Comment: Canc elled via OM: Order edited - Discontinuing original order Performed By: #### L 100.0100, L500.2500 #### [facility] [address] [place], [address] CREAT,SERUM Normal 0.70-1.20 [facility] Comment on above: Result Comment: Canc elled via OM: Order edited - Discontinuing original order Performed By: #### L 100.0100, L500.2500 #### [facility] [address] [place], [address] eGFR Normal >60 [facility] Comment on above: Result Comment: Canc elled via OM: Order edited - Discontinuing original order Performed By: #### L 100.0100, L500.2500 #### [facility] [address] [place], [address] GAP Normal 5-15 [facility] Comment on above: Result Comment: Canc elled via OM: Order edited - Discontinuing original order Performed By: #### L 100.0100, L500.2500 #### [facility] [address] [place], [address] GLU Normal 70-99 [facility] Comment on above: Result Comment: Canc elled via OM: Order edited - Discontinuing original order Performed By: #### L 100.0100, L500.2500 #### [facility] [address] [place], [address] Potassium Normal 3.3-5.1 [facility] Comment on above: Result Comment: Canc elled via OM: Order edited - Discontinuing original order Performed By: #### L 100.0100, L500.2500 #### [facility] [address] [place], [address] Basic Metabolic Profile (BMP) Normal 133-145 [facility] Comment on above: Result Comment: Canc elled via OM: Order edited - Discontinuing original order Performed By: #### L 100.0100, L500.2500 #### [facility] [address] [place], [address] BUN Normal 4-19 [facility] Comment on above: Result Comment: Canc elled via OM: Order Changed Performed By: #### L 100.0100, L500.2500 #### [facility] [address] [place], [address] BUN/CRE Normal 10-20 [facility] Comment on above: Result Comment: Canc elled via OM: Order Changed Performed By: #### L 100.0100, L500.2500 #### [facility] [address] [place], [address] Calcium Normal 7.6-11.0 [facility] Comment on above: Result Comment: Canc elled via OM: Order Changed Performed By: #### L 100.0100, L500.2500 #### [facility] [address] [place], [address] CL Normal 98-108 [facility] Comment on above: Result Comment: Canc elled via OM: Order Changed Performed By: #### L 100.0100, L500.2500 #### [facility] [address] [place], [address] CO2 Normal 21.0-32.0 [facility] Comment on above: Result Comment: Canc elled via OM: Order Changed Performed By: #### L 100.0100, L500.2500 #### [facility] [address] [place], [address] CREAT,SERUM Normal 0.70-1.20 [facility] Comment on above: Result Comment: Canc elled via OM: Order Changed Performed By: #### L 100.0100, L500.2500 #### [facility] [address] [place], [address] eGFR Normal >60 [facility] Comment on above: Result Comment: Canc elled via OM: Order Changed Performed By: #### L 100.0100, L500.2500 #### [facility] [address] [place], [address] GAP Normal 5-15 [facility] Comment on above: Result Comment: Canc elled via OM: Order Changed Performed By: #### L 100.0100, L500.2500 #### [facility] [address] [place], [address] GLU Normal 70-99 [facility] Comment on above: Result Comment: Canc elled via OM: Order Changed Performed By: #### L 100.0100, L500.2500 #### [facility] [address] [place], [address] Potassium Normal 3.3-5.1 [facility] Comment on above: Result Comment: Canc elled via OM: Order Changed Performed By: #### L 100.0100, L500.2500 #### [facility] [address] [place], [address] Basic Metabolic Profile (BMP) Normal 133-145 [facility] Comment on above: Result Comment: Canc elled via OM: Order Changed Performed By: #### L 100.0100, L500.2500 #### [facility] [address] [place], [address] Basophil percentageOrdered B y: Rey Henao on 03-13-2025 Basophils/100 WBC (Bld) 0.4 % 0-1 [facility] Blood urea nitrogen (BUN)/cr eatinine ratioOrdered By: Rey Henao on 03-13-2025 Urea nitrogen/Creatinine [Mass ratio] 43.2 mg/mg High 10-20 [facility] CBC W/Diff, Automatedon -0 Absolute Neut Normal 2.0-7.7 [facility] Comment on above: Result Comment: Canc elled via OM: Order edited - Discontinuing original order Performed By: #### L 100.0100, L500.2500 #### [facility] [address] [place], [address] HCT Normal 40-54 [facility] Comment on above: Result Comment: Canc elled via OM: Order edited - Discontinuing original order Performed By: #### L 100.0100, L500.2500 #### [facility] [address] [place], [address] HGB Normal 13.0-16.5 [facility] Comment on above: Result Comment: Canc elled via OM: Order edited - Discontinuing original order Performed By: #### L 100.0100, L500.2500 #### [facility] [address] [place], [address] MCH Normal 27.0-32.0 [facility] Comment on above: Result Comment: Canc elled via OM: Order edited - Discontinuing original order Performed By: #### L 100.0100, L500.2500 #### [facility] [address] [place], [address] MCHC Normal 32-36 [facility] Comment on above: Result Comment: Canc elled via OM: Order edited - Discontinuing original order Performed By: #### L 100.0100, L500.2500 #### [facility] [address] [place], [address] MCV Normal 80-94 [facility] Comment on above: Result Comment: Canc elled via OM: Order edited - Discontinuing original order Performed By: #### L 100.0100, L500.2500 #### [facility] [address] [place], [address] NEUT% Normal 47-70 [facility] Comment on above: Result Comment: Canc elled via OM: Order edited - Discontinuing original order Performed By: #### L 100.0100, L500.2500 #### [facility] [address] [place], [address] PLT Normal 150-450 [facility] Comment on above: Result Comment: Canc elled via OM: Order edited - Discontinuing original order Performed By: #### L 100.0100, L500.2500 #### [facility] [address] [place], [address] RBC Normal 4.6-6.2 [facility] Comment on above: Result Comment: Canc elled via OM: Order edited - Discontinuing original order Performed By: #### L 100.0100, L500.2500 #### [facility] [address] [place], [address] RDW CV Normal 11.6-14.6 [facility] Comment on above: Result Comment: Canc elled via OM: Order edited - Discontinuing original order Performed By: #### L 100.0100, L500.2500 #### [facility] [address] [place], [address] RDW SD Normal 35.1-43.9 [facility] Comment on above: Result Comment: Canc elled via OM: Order edited - Discontinuing original order Performed By: #### L 100.0100, L500.2500 #### [facility] [address] [place], [address] WBC Normal 4.4-11.0 [facility] Comment on above: Result Comment: Canc elled via OM: Order edited - Discontinuing original order Performed By: #### L 100.0100, L500.2500 #### [facility] [address] [place], [address] Absolute Lymph 1.29 X10 3/uL Normal 0.83-4.51 [facility] Comment on above: Performed By: #### L 506.1001, L500.4050, L501.9520, L501.9985, L100.0100 #### [facility] [address] [place], [address] Absolute Neut 6.5 X10 3/uL Normal 2.0-7.7 [facility] Comment on above: Performed By: #### L 506.1001, L500.4050, L501.9520, L501.9985, L100.0100 #### [facility] [address] [place], [address] Basophils/100 WBC (Bld) 0.4 % Normal 0-1 [facility] Comment on above: Performed By: #### L 506.1001, L500.4050, L501.9520, L501.9985, L100.0100 #### [facility] [address] [place], [address] Eosinophils/100 WBC (Bld) 2.2 % Normal 0-5 [facility] Comment on above: Performed By: #### L 506.1001, L500.4050, L501.9520, L501.9985, L100.0100 #### [facility] [address] [place], [address] Erythrocyte distribution width (RBC) [Ratio] 12.7 % Normal 11.6-14.6 [facility] Comment on above: Performed By: #### L 506.1001, L500.4050, L501.9520, L501.9985, L100.0100 #### [facility] [address] [place], [address] Hematocrit (Bld) [Volume fraction] 33.6 % Low 40-54 [facility] Comment on above: Performed By: #### L 506.1001, L500.4050, L501.9520, L501.9985, L100.0100 #### [facility] [address] [place], [address] Hemoglobin (Bld) [Mass/Vol] 11.6 g/dL Low 13.0-16.5 [facility] Comment on above: Performed By: #### L 506.1001, L500.4050, L501.9520, L501.9985, L100.0100 #### [facility] [address] [place], [address] IG% 0.300 Normal 0.0-0.9 [facility] Comment on above: Result Comment: IG% - Immature Granulocytes (promyelocytes, myelocytes and metamyelocytes) > 1% indicates that a LEFT SHIFT is Present. Performed By: #### L 506.1001, L500.4050, L501.9520, L501.9985, L100.0100 #### [facility] [address] [place], [address] Lymphocytes/100 WBC (Bld) 13.7 % Low 19-41 [facility] Comment on above: Performed By: #### L 506.1001, L500.4050, L501.9520, L501.9985, L100.0100 #### [facility] [address] [place], [address] MCH (RBC) [Entitic mass] 31.8 pg Normal 27.0-32.0 [facility] Comment on above: Performed By: #### L 506.1001, L500.4050, L501.9520, L501.9985, L100.0100 #### [facility] [address] [place], [address] MCHC (RBC) [Mass/Vol] 34.5 g/dL Normal 32-36 [facility] Comment on above: Performed By: #### L 506.1001, L500.4050, L501.9520, L501.9985, L100.0100 #### [facility] [address] [place], [address] MCV (RBC) [Entitic vol] 92.1 fL Normal 80-94 [facility] Comment on above: Performed By: #### L 506.1001, L500.4050, L501.9520, L501.9985, L100.0100 #### [facility] [address] [place], [address] Monocytes/100 WBC (Bld) 14.3 % High 0-10 [facility] Comment on above: Performed By: #### L 506.1001, L500.4050, L501.9520, L501.9985, L100.0100 #### [facility] [address] [place], [address] Neutrophils/100 WBC (Bld) 69.1 % Normal 47-70 [facility] Comment on above: Performed By: #### L 506.1001, L500.4050, L501.9520, L501.9985, L100.0100 #### [facility] [address] [place], [address] Nucleated RBC (Bld) [#/Vol] 0 10*3/uL Normal 0-5 [facility] Comment on above: Performed By: #### L 506.1001, L500.4050, L501.9520, L501.9985, L100.0100 #### [facility] [address] [place], [address] Platelet mean volume (Bld) [Entitic vol] 10.4 fL Normal 6.2-12.0 [facility] Comment on above: Performed By: #### L 506.1001, L500.4050, L501.9520, L501.9985, L100.0100 #### [facility] [address] [place], [address] Platelets (Bld) [#/Vol] 240 10*3/uL Normal 150-450 [facility] Comment on above: Performed By: #### L 506.1001, L500.4050, L501.9520, L501.9985, L100.0100 #### [facility] [address] [place], [address] RBC (Bld) [#/Vol] 3.65 10*6/uL Low 4.6-6.2 [facility] Comment on above: Performed By: #### L 506.1001, L500.4050, L501.9520, L501.9985, L100.0100 #### [facility] [address] [place], [address] RDW SD 43.3 fl Normal 35.1-43.9 [facility] Comment on above: Performed By: #### L 506.1001, L500.4050, L501.9520, L501.9985, L100.0100 #### [facility] [address] [place], [address] WBC (Bld) [#/Vol] 9.5 10*3/uL Normal 4.4-11.0 [facility] Comment on above: Performed By: #### L 506.1001, L500.4050, L501.9520, L501.9985, L100.0100 #### [facility] [address] [place], [address] Absolute Neut Normal 2.0-7.7 [facility] Comment on above: Result Comment: Canc elled via OM: Order Changed Performed By: #### L 100.0100, L500.2500 #### [facility] [address] [place], [address] HCT Normal 40-54 [facility] Comment on above: Result Comment: Canc elled via OM: Order Changed Performed By: #### L 100.0100, L500.2500 #### [facility] [address] [place], [address] HGB Normal 13.0-16.5 [facility] Comment on above: Result Comment: Canc elled via OM: Order Changed Performed By: #### L 100.0100, L500.2500 #### [facility] [address] [place], [address] MCH Normal 27.0-32.0 [facility] Comment on above: Result Comment: Canc elled via OM: Order Changed Performed By: #### L 100.0100, L500.2500 #### [facility] [address] [place], [address] MCHC Normal 32-36 [facility] Comment on above: Result Comment: Canc elled via OM: Order Changed Performed By: #### L 100.0100, L500.2500 #### [facility] [address] [place], [address] MCV Normal 80-94 [facility] Comment on above: Result Comment: Canc elled via OM: Order Changed Performed By: #### L 100.0100, L500.2500 #### [facility] [address] [place], [address] NEUT% Normal 47-70 [facility] Comment on above: Result Comment: Canc elled via OM: Order Changed Performed By: #### L 100.0100, L500.2500 #### [facility] [address] [place], [address] PLT Normal 150-450 [facility] Comment on above: Result Comment: Canc elled via OM: Order Changed Performed By: #### L 100.0100, L500.2500 #### [facility] [address] [place], [address] RBC Normal 4.6-6.2 [facility] Comment on above: Result Comment: Canc elled via OM: Order Changed Performed By: #### L 100.0100, L500.2500 #### [facility] [address] [place], [address] RDW CV Normal 11.6-14.6 [facility] Comment on above: Result Comment: Canc elled via OM: Order Changed Performed By: #### L 100.0100, L500.2500 #### [facility] [address] [place], [address] RDW SD Normal 35.1-43.9 [facility] Comment on above: Result Comment: Canc elled via OM: Order Changed Performed By: #### L 100.0100, L500.2500 #### [facility] [address] [place], [address] WBC Normal 4.4-11.0 [facility] Comment on above: Result Comment: Canc elled via OM: Order Changed Performed By: #### L 100.0100, L500.2500 #### [facility] [address] [place], [address] Carbon dioxide measurementOr dered By: Rey Henao on 03-13-2025 CO2 [Moles/Vol] 23.0 mmol/L 21.0-32.0 [facility] Chloride assayOrdered By: Andrews Henao on 03-13-2025 Chloride [Moles/Vol] 101 mmol/L 98-108 [facility] Eosinophil percentageOrdered By: Rey Henao on 03-13-2025 Eosinophils/100 WBC (Bld) 2.2 % 0-5 [facility] Erythrocyte distribution wid th ratioOrdered By: Rey Henao on 03-13-2025 Erythrocyte distribution width (RBC) [Ratio] 12.7 % 11.6-14.6 [facility] Erythrocyte distribution wid th standard deviationOrdered By: Rey Henao on 03-13-2025 Erythrocyte distribution width (RBC) [Ratio] 43.3 fl 35.1-43.9 [facility] Glomerular filtration rate ( GFR) estimation/1.73 sq m using serum, plasma, or whole bOrdered By: Rey Henao on 03-13-2025 GFR/1.73 sq M.predicted among non-blacks MDRD (S/P/Bld) [Vol rate/Area] 109 mL/min/{1.73_m2} >60 [facility] Comment on above: mL/min/1.73m2 CKD-EP I Creatinine Equation (2020) Hematocrit Auto (Bld) [Volum e fraction]Ordered By: Rey Henao on 03-13-2025 Hematocrit (Bld) [Volume fraction] 33.6 % Low 40-54 [facility] Hemoglobin measurementOrdere d By: Rey Henao on 03-13-2025 Hemoglobin (Bld) [Mass/Vol] 11.6 g/dL Low 13.0-16.5 [facility] Immature granulocytes/100 WB C Auto (Bld)Ordered By: Rey Henao on 03-13-2025 Immature granulocytes/100 WBC (Bld) 0.300 % 0.0-0.9 [facility] Comment on above: IG% - Immature Granu locytes (promyelocytes, myelocytes and metamyelocytes) > 1% indicates that a LEFT SHIFT is Present. MCV (mean corpuscular volume ) determinationOrdered By: Rey Henao on 03-13-2025 MCV (RBC) [Entitic vol] 92.1 fL 80-94 [facility] Mean corpuscular hemoglobin (MCH) determinationOrdered By: Rey Henao 03-13-2025 MCH (RBC) [Entitic mass] 31.8 pg 27.0-32.0 [facility] Mean corpuscular hemoglobin concentration (MCHC) determinationOrdered By: Rey Henao 03-13-2025 MCHC (RBC) [Mass/Vol] 34.5 g/dL 32-36 [facility] Mean platelet volume determi nationOrdered By: Rey Henao on 03-13-2025 Platelet mean volume (Bld) [Entitic vol] 10.4 fL 6.2-12.0 [facility] Monocyte percentageOrdered B y: Rey Henao on 03-13-2025 Monocytes/100 WBC (Bld) 14.3 % High 0-10 [facility] Neutrophil percentageOrdered By: Rey Henao on 03-13-2025 Neutrophils/100 WBC (Bld) 69.1 % 47-70 [facility] Nucleated red blood cell per centageOrdered By: Rey Henao on 03-13-2025 Nucleated RBC/100 WBC (Bld) [Ratio] 0 % 0-5 [facility] Platelet countOrdered By: Andrews Henao on 03-13-2025 Platelets (Bld) [#/Vol] 240 10*3/uL 150-450 [facility] Potassium measurement (mass/ volume)Ordered By: Rey Henao on 03-13-2025 Potassium (Unsp spec) [Mass/Vol] 4.2 mmol/L 3.3-5.1 [facility] RBC Auto (Bld) [#/Vol]Ordere d By: Rey Henao on 03-13-2025 RBC (Bld) [#/Vol] 3.65 10*6/uL Low 4.6-6.2 [facility] Serum creatinine measurement (mass/volume)Ordered By: Rey Henao on 03-13-2025 Creatinine [Mass/Vol] 0.37 mg/dL Low 0.70-1.20 [facility] Serum glucose measurement (m ass/volume)Ordered By: Rey Henao on 03-13-2025 Glucose [Mass/Vol] 129 mg/dL High 70-99 [facility] Serum or plasma calcium marialuisa urement (mass/volume)Ordered By: Rey Henao on 03-13-2025 Calcium [Mass/Vol] 8.6 mg/dL 7.6-11.0 [facility] Serum or plasma urea nitroge n measurement (mass/volume)Ordered By: Rey Henao on 03-13-2025 Urea nitrogen [Mass/Vol] 16 mg/dL 4-19 [facility] Sodium levelOrdered By: Rey Henao on 03-13-2025 Sodium [Moles/Vol] 132 mmol/L Low 133-145 [facility] White blood cell (WBC) count Ordered By: Rey Henao on 03-13-2025 WBC (Bld) [#/Vol] 9.5 10*3/uL 4.4-11.0 [facility] CNPDionne 03-10-2025 MARIA GUADALUPE Telephone (AGCARDPOB ) JEANIE RANKIN ([id number]) 1940 M Date Time Provider Department 03/10/25 JOSE DAVIS During your visit today, we recorded the following information about you: Jose Davis APRN.ALINE 03/10/2025 3:32 PM Signed Pt was recently seen in the hospital for abnormal stress. Please reach out to patient to schedule follow up visit with Dr. Brito or RUI. Patient should be seen in 6-8 weeks. Thanks Jose Davis APRN.[employer] INSPECTOR Uzma Garcia 03/11/2025 2:49 PM Signed Pt scheduled 05/05/2025 with Reta Fraire Message left with appt day/time Letter sent Uzma Garcia Allergies As of Date: 03/10/2025 Noted Allergy Reaction ADHESIVE 03/18/2009 NEOSPORIN ([id number]*08/0 07/2005 2 - Rash 9 - Itching [...] OSTEOPOROSIS [M81.8] 10/20/2005 MYALGIA AND MYOSITIS NOS [[id number]] 10/20/2005 ANEMIA NOS [D64.9] 08/02/2006 BENIGN NEOPLASM [...] Encounter Status:Closed by UZMA GARCIA on 03/11/25 [facility] ANES POSTPROC EVALon 025 ANES POSTPROC EVAL HNO ID: [id number] Author: NAYA AGUILERA MD Service: Anesthesiology Author [...] March 06, 2025 TIME: 6:41 AM CSN: [id number] Normal [facility] Basic Metabolic Profile (BMP )on 03-06-2025 BUN/CRE 46.6 RATIO High 02-23 [facility] Comment on above: Performed By: #### L 100.0100, L500.2500 #### [facility] [address] [facility] [address] Calcium [Mass/Vol] 8.7 mg/dL Normal 7.6-11.0 [facility] Comment on above: Performed By: #### L 100.0100, L500.2500 #### [facility] [address] [facility] [address] Chloride [Moles/Vol] 103 mmol/L Normal 98-108 [facility] Comment on above: Performed By: #### L 100.0100, L500.2500 #### [facility] [address] [place], [address] CO2 [Moles/Vol] 27.5 mmol/L Normal 21.0-32.0 [facility] Comment on above: Performed By: #### L 100.0100, L500.2500 #### [facility] [address] [place], [address] Creatinine [Mass/Vol] 0.35 mg/dL Low 0.70-1.20 [facility] Comment on above: Performed By: #### L 100.0100, L500.2500 #### [facility] [address] [place], [address] ECRCL 59.81 ml/min Normal 50-250 [facility] Comment on above: Performed By: #### L 100.0100, L500.2500 #### [facility] [address] [place], [address] GAP 6 Normal 5-15 [facility] Comment on above: Performed By: #### L 100.0100, L500.2500 #### [facility] [address] [place], [address] GFR/1.73 sq M.predicted among non-blacks MDRD (S/P/Bld) [Vol rate/Area] 110 mL/min/{1.73_m2} Normal >60 [facility] Comment on above: Result Comment: mL/m in/1.73m2 CKD-EPI Creatinine Equation (2020) Performed By: #### L 100.0100, L500.2500 #### [facility] [address] [place], [address] Glucose [Mass/Vol] 98 mg/dL Normal 70-99 [facility] Comment on above: Performed By: #### L 100.0100, L500.2500 #### [facility] [address] [place], [address] Potassium [Moles/Vol] 4.2 mmol/L Normal 3.3-5.1 [facility] Comment on above: Performed By: #### L 100.0100, L500.2500 #### [facility] [address] [place], [address] Sodium [Moles/Vol] 136 mmol/L Normal 133-145 [facility] Comment on above: Performed By: #### L 100.0100, L500.2500 #### [facility] [address] [place], [address] Urea nitrogen [Mass/Vol] 17 mg/dL Normal 4-19 [facility] Comment on above: Performed By: #### L 100.0100, L500.2500 #### [facility] [address] [place], [address] CBC W/Diff, Automatedon 10-3 Absolute Lymph 1.77 X10 3/uL Normal 0.83-4.51 [facility] Comment on above: Performed By: #### L 100.0100, L500.2500 #### [facility] [address] [place], [address] Absolute Neut 3.4 X10 3/uL Normal 2.0-7.7 [facility] Comment on above: Performed By: #### L 100.0100, L500.2500 #### [facility] [address] [place], [address] Basophils/100 WBC (Bld) 0.5 % Normal 0-1 [facility] Comment on above: Performed By: #### L 100.0100, L500.2500 #### [facility] [address] [place], [address] Eosinophils/100 WBC (Bld) 1.8 % Normal 0-5 [facility] Comment on above: Performed By: #### L 100.0100, L500.2500 #### [facility] [address] [place], [address] Erythrocyte distribution width (RBC) [Ratio] 12.4 % Normal 11.6-14.6 [facility] Comment on above: Performed By: #### L 100.0100, L500.2500 #### [facility] [address] [place], [address] Hematocrit (Bld) [Volume fraction] 34.0 % Low 40-54 [facility] Comment on above: Performed By: #### L 100.0100, L500.2500 #### [facility] [address] [place], [address] Hemoglobin (Bld) [Mass/Vol] 11.4 g/dL Low 13.0-16.5 [facility] Comment on above: Performed By: #### L 100.0100, L500.2500 #### [facility] [address] [place], [address] IG% 0.300 Normal 0.0-0.9 [facility] Comment on above: Result Comment: IG% - Immature Granulocytes (promyelocytes, myelocytes and metamyelocytes) > 1% indicates that a LEFT SHIFT is Present. Performed By: #### L 100.0100, L500.2500 #### [facility] [address] [place], [address] Lymphocytes/100 WBC (Bld) 27.0 % Normal 19-41 [facility] Comment on above: Performed By: #### L 100.0100, L500.2500 #### [facility] [address] [place], [address] MCH (RBC) [Entitic mass] 31.2 pg Normal 27.0-32.0 [facility] Comment on above: Performed By: #### L 100.0100, L500.2500 #### [facility] [address] [place], [address] MCHC (RBC) [Mass/Vol] 33.5 g/dL Normal 32-36 [facility] Comment on above: Performed By: #### L 100.0100, L500.2500 #### [facility] [address] [place], [address] MCV (RBC) [Entitic vol] 93.2 fL Normal 80-94 [facility] Comment on above: Performed By: #### L 100.0100, L500.2500 #### [facility] [address] [place], [address] Monocytes/100 WBC (Bld) 18.9 % High 0-10 [facility] Comment on above: Performed By: #### L 100.0100, L500.2500 #### [facility] [address] [place], [address] Neutrophils/100 WBC (Bld) 51.5 % Normal 47-70 [facility] Comment on above: Performed By: #### L 100.0100, L500.2500 #### [facility] [address] [place], [address] Nucleated RBC (Bld) [#/Vol] 0 10*3/uL Normal 0-5 [facility] Comment on above: Performed By: #### L 100.0100, L500.2500 #### [facility] [address] [place], [address] Platelet mean volume (Bld) [Entitic vol] 10.9 fL Normal 6.2-12.0 [facility] Comment on above: Performed By: #### L 100.0100, L500.2500 #### [facility] [address] [place], [address] Platelets (Bld) [#/Vol] 201 10*3/uL Normal 150-450 [facility] Comment on above: Performed By: #### L 100.0100, L500.2500 #### [facility] [address] [place], [address] RBC (Bld) [#/Vol] 3.65 10*6/uL Low 4.6-6.2 [facility] Comment on above: Performed By: #### L 100.0100, L500.2500 #### [facility] [address] [place], [address] RDW SD 42.7 fl Normal 35.1-43.9 [facility] Comment on above: Performed By: #### L 100.0100, L500.2500 #### [facility] [address] [place], [address] WBC (Bld) [#/Vol] 6.6 10*3/uL Normal 4.4-11.0 [facility] Comment on above: Performed By: #### L 100.0100, L500.2500 #### [facility] [address] [place], [address] CNPDionne 03-06-[address] [facility] Telephone (AGGENS4) JEANIE RANKIN ([id number]) 1940 M Date Time Provider Department 03/06/25 [...] 03/06/2025 Noted Allergy Reaction ADHESIVE 03/18/2009 NEOSPORIN ([id number]-[id number]*08/0 07/2005 2 - Rash 9 - Itching [...] OSTEOPOROSIS [M81.8] 10/20/2005 MYALGIA AND MYOSITIS NOS [[id number]] 10/20/2005 ANEMIA NOS [D64.9] 08/02/2006 BENIGN NEOPLASM [...] Status:Closed by CONSTANTINO GONZALEZ on 03/06/25 Normal [facility] Basic metabolic 2000 panelon 03-05-2025 Anion gap [Moles/Vol] 9 mmol/L Normal 8-15 [facility] Comment on above: Order Comment: Speci men Type: BLOOD SPECIMEN Ordering Facility: [facility] Address: [address] [place] [address] Performed By: #### 2 777-1, 20293-3, #### [facility] CLIA [id number] [address] [place] [address] [place] Calcium [Mass/Vol] 8.3 mg/dL Low 8.5-10.2 [facility] Comment on above: Order Comment: Speci men Type: BLOOD SPECIMEN Ordering Facility: [facility] Address: [address] [place] [address] Performed By: #### 2 777-1, 09522-0, #### [facility] CLIA [id number] [address] [place] [address] [place] Chloride [Moles/Vol] 102 mmol/L Normal 98-107 [facility] Comment on above: Order Comment: Speci men Type: BLOOD SPECIMEN Ordering Facility: [facility] Address: [address] [place] [address] Performed By: #### 2 777-1, , #### [facility] CLIA [id number] [address] [place] [address] [place] CO2 [Moles/Vol] 25 mmol/L Normal 22-30 [facility] Comment on above: Order Comment: Speci men Type: BLOOD SPECIMEN Ordering Facility: [facility] Address: [address] [place] [address] Performed By: #### 2 777-1, , #### [facility] CLIA [id number] [address] [place] Creatinine [Mass/Vol] 0.35 mg/dL Low 0.73-1.22 [facility] Comment on above: Order Comment: Speci men Type: BLOOD SPECIMEN Ordering Facility: [facility] Address: [address] [place] [address] Performed By: #### 2 777-1, , #### [facility] CLIA [id number] [address] [place] eGFRcr SerPlBld CKD-EPI 2020 111 mL/min/1.73m??? Normal >=60 [facility] Comment on above: Order Comment: Speci men Type: BLOOD SPECIMEN Ordering Facility: [facility] Address: [address] [place] [address] Result Comment: Genet mated Glomerular Filtration Rate [...] Performed By: #### 2 777-1, , #### [facility] CLIA [id number] [address] [place] Glucose [Mass/Vol] 126 mg/dL High 74-99 [facility] Comment on above: Order Comment: Speci men Type: BLOOD SPECIMEN Ordering Facility: [facility] Address: [address] [place], [place] [id number] Result Comment: The [place] [employer] (ADA) provides guidance for cutoff [...] Standards of Medical Care in Diabetes 2016, [place] [employer]. Diabetes Care. 2016.39(Suppl 1). Performed By: #### 2 777-1, 23469-9, #### [facility] CLIA [id number] [address] [place] [address] [place] Potassium [Moles/Vol] 5.0 mmol/L Normal 3.7-5.1 [facility] Comment on above: Order Comment: Melia zuluaga Type: BLOOD SPECIMEN Ordering Facility: [facility] Address: [address] [place], [place] [address] Performed By: #### 2 777-1, , #### [facility] CLIA [id number] [address] [place] [address] [place] Sodium [Moles/Vol] 136 mmol/L Normal 136-144 [facility] Comment on above: Order Comment: Melia zuluaga Type: BLOOD SPECIMEN Ordering Facility: [facility] Address: [address] [place], [place] [address] Performed By: #### 2 777-1, , #### [facility] CLIA [id number] [address] [place] [address] [place] Urea nitrogen [Mass/Vol] 15 mg/dL Normal 9-24 [facility] Comment on above: Order Comment: Melia zuluaga Type: BLOOD SPECIMEN Ordering Facility: [facility] Address: [address] [place] [address] Performed By: #### 2 777-1, 06676-5, 75164-3 #### [facility] CLIA [id number] [address] [place] [address] [place] CBC W Auto Differential pane l (Bld)on 03-05-2025 Basophils (Bld) [#/Vol] 10*3/uL Normal <0.11 [facility] Comment on above: Order Comment: Speci men Type: BLOOD SPECIMEN Ordering Facility: [facility] Address: [address] [place] [address] Performed By: #### 5 8410-2 #### [facility] CLIA [id number] [address] [place] Basophils/100 WBC (Bld) 0.2 % Normal [facility] Comment on above: Order Comment: Speci men Type: BLOOD SPECIMEN Ordering Facility: [facility] Address: [address] [place] [address] Performed By: #### 5 8410-2 #### [facility] CLIA [id number] [address] Differential cell count method Nom (Bld) Auto Normal [facility] Comment on above: Order Comment: Speci men Type: BLOOD SPECIMEN Ordering Facility: [facility] Address: [address] [place] [address] Performed By: #### 5 8410-2 #### [facility] CLIA [id number] [address] [place] Eosinophils (Bld) [#/Vol] 10*3/uL Normal <0.46 [facility] Comment on above: Order Comment: Speci men Type: BLOOD SPECIMEN Ordering Facility: [facility] Address: [address] [place] [address] Performed By: #### 5 8410-2 #### [facility] CLIA [id number] [address] [place] Eosinophils/100 WBC (Bld) 0.0 % Normal [facility] Comment on above: Order Comment: Speci men Type: BLOOD SPECIMEN Ordering Facility: [facility] Address: [address] [place] [address] Performed By: #### 5 8410-2 #### [facility] CLIA [id number] [address] Erythrocyte distribution width (RBC) [Ratio] 12.3 % Normal 11.5-15.0 [facility] Comment on above: Order Comment: Speci men Type: BLOOD SPECIMEN Ordering Facility: [facility] Address: [address] [place] [address] Performed By: #### 5 8410-2 #### [facility] CLIA [id number] [address] [place] Hematocrit (Bld) [Volume fraction] 38.2 % Low 39.0-51.0 [facility] Comment on above: Order Comment: Speci men Type: BLOOD SPECIMEN Ordering Facility: [facility] Address: [address] [place] [address] Performed By: #### 5 8410-2 #### [facility] CLIA [id number] [address] [place] Hemoglobin (Bld) [Mass/Vol] 12.8 g/dL Low 13.0-17.0 [facility] Comment on above: Order Comment: Speci men Type: BLOOD SPECIMEN Ordering Facility: [facility] Address: [address] [place] [address] Performed By: #### 5 8410-2 #### [facility] CLIA [id number] [address] [place] Immature granulocytes (Bld) [#/Vol] 0.08 10*3/uL Normal <0.10 [facility] Comment on above: Order Comment: Speci men Type: BLOOD SPECIMEN Ordering Facility: [facility] Address: [address] [place] [address] Performed By: #### 5 8410-2 #### [facility] CLIA [id number] [address] Immature granulocytes/100 WBC (Bld) 0.7 % Normal [facility] Comment on above: Order Comment: Speci men Type: BLOOD SPECIMEN Ordering Facility: [facility] Address: [address] [place] [address] Performed By: #### 5 8410-2 #### [facility] CLIA [id number] [address] Lymphocytes (Bld) [#/Vol] 0.82 10*3/uL Low 1.00-4.00 [facility] Comment on above: Order Comment: Speci men Type: BLOOD SPECIMEN [facility] [facility] Address: [address] [place] [address] Performed By: #### 5 8410-2 #### [facility] CLIA [id number] [address] Lymphocytes/100 WBC (Bld) 7.1 % Normal [facility] Comment on above: Order Comment: Speci men Type: BLOOD SPECIMEN Ordering Facility: [facility] Address: [address] [place] [address] Performed By: #### 5 8410-2 #### [facility] CLIA [id number] [address] MCH (RBC) [Entitic mass] 31.5 pg Normal 26.0-34.0 [facility] Comment on above: Order Comment: Speci men Type: BLOOD SPECIMEN Ordering Facility: [facility] Address: [address] [place] [address] Performed By: #### 5 8410-2 #### [facility] CLIA [id number] [address] MCHC (RBC) [Mass/Vol] 33.5 g/dL Normal 30.5-36.0 [facility] Comment on above: Order Comment: Speci men Type: BLOOD SPECIMEN Ordering Facility: [facility] Address: [address] [place] [address] Performed By: #### 5 8410-2 #### [facility] CLIA [id number] [address] [place] MCV (RBC) [Entitic vol] 94.1 fL Normal 80.0-100.0 [facility] Comment on above: Order Comment: Speci men Type: BLOOD SPECIMEN Ordering Facility: [facility] Address: [address] [place] [address] Performed By: #### 5 8410-2 #### [facility] CLIA [id number] [address] [place] Monocytes (Bld) [#/Vol] 1.40 10*3/uL High <0.87 [facility] Comment on above: Order Comment: Speci men Type: BLOOD SPECIMEN Ordering Facility: [facility] Address: [address] [place] [address] Performed By: #### 5 8410-2 #### [facility] CLIA [id number] [address] [place] Monocytes/100 WBC (Bld) 12.1 % Normal [facility] Comment on above: Order Comment: Speci men Type: BLOOD SPECIMEN Ordering Facility: [facility] Address: [address] [place] [address] Performed By: #### 5 8410-2 #### [facility] CLIA [id number] [address] [place] Neutrophils (Bld) [#/Vol] 9.27 10*3/uL High 1.45-7.50 [facility] Comment on above: Order Comment: Speci men Type: BLOOD SPECIMEN Ordering Facility: [facility] Address: [address] [place] [address] Performed By: #### 5 8410-2 #### [facility] CLIA [id number] [address] [place] Neutrophils/100 WBC (Bld) 79.9 % Normal [facility] Comment on above: Order Comment: Speci men Type: BLOOD SPECIMEN Ordering Facility: [facility] Address: [address] [place] [address] Performed By: #### 5 8410-2 #### [facility] CLIA [id number] [address] Nucleated RBC (Bld) [#/Vol] 10*3/uL Normal <0.01 [facility] Comment on above: Order Comment: Speci men Type: BLOOD SPECIMEN Ordering Facility: [facility] Address: [address] [place] [address] Performed By: #### 5 8410-2 #### [facility] CLIA [id number] [address] [place] Nucleated RBC/100 WBC (Bld) [Ratio] 0.0 /100 WBC Normal [facility] Comment on above: Order Comment: Speci men Type: BLOOD SPECIMEN Ordering Facility: [facility] Address: [address] [place] [address] Performed By: #### 5 8410-2 #### [facility] CLIA [id number] [address] Platelet mean volume (Bld) [Entitic vol] 11.0 fL Normal 9.0-12.7 [facility] Comment on above: Order Comment: Speci men Type: BLOOD SPECIMEN Ordering Facility: [facility] Address: [address] [place] [address] Performed By: #### 5 8410-2 #### [facility] CLIA [id number] [address] [place] Platelets (Bld) [#/Vol] 187 10*3/uL Normal 150-400 [facility] Comment on above: Order Comment: Speci men Type: BLOOD SPECIMEN Ordering Facility: [facility] Address: [address] [place] [address] Performed By: #### 5 8410-2 #### [facility] CLIA [id number] [address] [place] RBC (Bld) [#/Vol] 4.06 10*6/uL Low 4.20-6.00 [facility] Comment on above: Order Comment: Speci men Type: BLOOD SPECIMEN Ordering Facility: [facility] Address: [address] [place] [place] [id number] Performed By: #### 5 8410-2 #### [facility] CLIA [id number] [address] WBC (Bld) [#/Vol] 11.59 10*3/uL High 3.70-11.00 [facility] Comment on above: Order Comment: Melia margareth Type: BLOOD SPECIMEN Ordering Facility: [facility] Address: [address] [place] [address] Performed By: #### 5 8410-2 #### [facility] CLIA [id number] [address] CNDSon 03-05-2025 CNDS HNO ID: [id number] Author: ANNE STUBBS DO Service: General Surgery [...] Attending Provider: Jose Hayes MD Primary Service: [facility] Attending: Deisi Villalta MD Consulting: Garry Watts MD Consulting: Jose Hayes MD MY CONDITION AT DISCHARGE: stable REASON [...] you become constipated, you may use any gist-tdr-tolkexk treatment such as Milk of Magnesia, Sennakot, [...] Follow-up Appoint (more content not included)... Normal [facility] THERAPY NTon 03-05-2025 THERAPY NT HNO ID: [id number] Author: CUCA PEREZ PT Service: Physical Therapy Author Type: Physical Therapist Type: Therapy (PT/OT/Speech/Resp) Filed: 03/05/2025 10:08 Note Text: Physical Therapy Treatment Summary SERVICE DATE: 03/05/2025 SERVICE TIME: 900 to 936 ROOM: [id number] PT 6 Clicks Score: 9 DISCHARGE RECOMMENDATIONS [...] Fall Risk CURRENT HOSPITAL COURSE presented to [facility] with abdominal pain, nausea and vomitting--found [...] and mobility-other TREATMENT INTERVENTIONS Reevaluation, Therapeutic Exercise (40737), Therapeutic Activity (64864) Timed Code Treatment (minutes): 10 Skilled Treatment Time (minutes): 34 $ Reevaluation (12976) Billed Units: 1 unit Therapeutic Exercise (01962) Treatment Minutes: 8 $ Therapeutic Exercise (49717) Billed Units: 1 unit Bilateral LE anti-gravity exercises. Patient needed assist with DF and knee ext as he is unable to complete either. 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 as calculated from the following: Height as of this encounter: 175.3 cm (5' 9). Weight as of this encounter: 64.2 kg (141 lb 8.6 oz). Most recent hematocrit and potassium results: Hematocrit 36.3 03/04/2025 Potassium 4.3 03/04/2025 Inclusion body myositis, diagnosed in s Severe cachexia Intractable vomiting d/t hiatal hernia [...] and consent discussed: yes. Patient / Responsible Libertarian agrees to proceed: yes Patient / Surrogate [...] March 04, 2025 TIME: 4:28 PM CSN: [id number] Normal [facility] Basic metabolic 2000 panelon 03-04-2025 Anion gap [Moles/Vol] 9 mmol/L Normal 8-15 [facility] Comment on above: Order Comment: Speci men Type: BLOOD SPECIMEN Ordering Facility: [facility] Address: [address] [place] [address] Performed By: #### 5 8410-2 #### [facility] CLIA [id number] 1 [place] [address] [place] Calcium [Mass/Vol] 8.9 mg/dL Normal 8.5-10.2 [facility] Comment on above: Order Comment: Speci men Type: BLOOD SPECIMEN Ordering Facility: [facility] Address: [address] [place] [address] Performed By: #### 5 8410-2 #### [facility] CLIA [id number] 1 [place] [address] [place] Chloride [Moles/Vol] 105 mmol/L Normal 98-107 [facility] Comment on above: Order Comment: Speci men Type: BLOOD SPECIMEN Ordering Facility: [facility] Address: [address] [place] [address] Performed By: #### 5 8410-2 #### [facility] CLIA [id number] 1 [place] [address] [place] CO2 [Moles/Vol] 24 mmol/L Normal 22-30 [facility] Comment on above: Order Comment: Speci men Type: BLOOD SPECIMEN Ordering Facility: [facility] Address: [address] [place] [address] Performed By: #### 5 8410-2 #### [facility] CLIA [id number] [address] [place] Creatinine [Mass/Vol] 0.30 mg/dL Low 0.73-1.22 [facility] Comment on above: Order Comment: Melia zuluaga Type: BLOOD SPECIMEN Ordering Facility: [facility] Address: [address] [place] [address] Performed By: #### 5 8410-2 #### [facility] CLIA [id number] [address] [place] eGFRcr SerPlBld CKD-EPI 2020 116 mL/min/1.73m??? Normal >=60 [facility] Comment on above: Order Comment: Melia zuluaga Type: BLOOD SPECIMEN Ordering Facility: [facility] Address: [address] [place] [address] Result Comment: Genet mated Glomerular Filtration Rate [...] GFR. Performed By: #### 5 8410-2 #### [facility] CLIA [id number] [address] [place] Glucose [Mass/Vol] 102 mg/dL High 74-99 [facility] Comment on above: Order Comment: Melia zuluaga Type: BLOOD SPECIMEN Ordering Facility: [facility] Address: [address] [place] [address] Result Comment: The [place] Diabetes [employer] (ADA) provides guidance for cutoff [...] Standards of Medical Care in Diabetes 2016, [place] [employer]. Diabetes Care. 2016.39(Suppl 1). Performed By: #### 5 8410-2 #### [facility] CLIA [id number] [address] Potassium [Moles/Vol] 4.3 mmol/L Normal 3.7-5.1 [facility] Comment on above: Order Comment: Speci men Type: BLOOD SPECIMEN Ordering Facility: [facility] Address: [address] [place] [address] Performed By: #### 5 8410-2 #### [facility] CLIA [id number] [address] Sodium [Moles/Vol] 138 mmol/L Normal 136-144 [facility] Comment on above: Order Comment: Speci men Type: BLOOD SPECIMEN Ordering Facility: [facility] Address: [address] [place] [address] Performed By: #### 5 8410-2 #### [facility] CLIA [id number] [address] STATES [facility] Urea nitrogen [Mass/Vol] 23 mg/dL Normal 9-24 [facility] Comment on above: Order Comment: Speci men Type: BLOOD SPECIMEN Ordering Facility: [facility] Address: [address] [place] [address] Performed By: #### 5 8410-2 #### [facility] CLIA [id number] [address] CBC panel Auto (Bld)on 03-04 Erythrocyte distribution width (RBC) [Ratio] 12.4 % Normal 11.5-15.0 [facility] Comment on above: Order Comment: Speci men Type: BLOOD SPECIMEN Ordering Facility: [facility] Address: [address] [place] [address] Performed By: #### 5 8410-2 #### [facility] CLIA [id number] [address] Hematocrit (Bld) [Volume fraction] 36.3 % Low 39.0-51.0 [facility] Comment on above: Order Comment: Speci men Type: BLOOD SPECIMEN Ordering Facility: [facility] Address: [address] [place] [address] Performed By: #### 5 8410-2 #### [facility] CLIA [id number] [address] OF [facility] Hemoglobin (Bld) [Mass/Vol] 12.6 g/dL Low 13.0-17.0 [facility] Comment on above: Order Comment: Speci men Type: BLOOD SPECIMEN Ordering Facility: [facility] Address: [address] [place] [address] Performed By: #### 5 8410-2 #### [facility] CLIA [id number] [address] [place] MCH (RBC) [Entitic mass] 31.9 pg Normal 26.0-34.0 [facility] Comment on above: Order Comment: Speci men Type: BLOOD SPECIMEN Ordering Facility: [facility] Address: [address] [place] [address] Performed By: #### 5 8410-2 #### [facility] CLIA [id number] [address] STATES OF [facility] MCHC (RBC) [Mass/Vol] 34.7 g/dL Normal 30.5-36.0 [facility] Comment on above: Order Comment: Speci men Type: BLOOD SPECIMEN Ordering Facility: [facility] Address: [address] [place] [address] Performed By: #### 5 8410-2 #### [facility] CLIA [id number] [address] [place] MCV (RBC) [Entitic vol] 91.9 fL Normal 80.0-100.0 [facility] Comment on above: Order Comment: Speci men Type: BLOOD SPECIMEN Ordering Facility: [facility] Address: [address] [place] [address] Performed By: #### 5 8410-2 #### [facility] CLIA [id number] [address] [place] Nucleated RBC (Bld) [#/Vol] 10*3/uL Normal <0.01 [facility] Comment on above: Order Comment: Speci men Type: BLOOD SPECIMEN Ordering Facility: [facility] Address: [address] [place] [address] Performed By: #### 5 8410-2 #### [facility] CLIA [id number] [address] [place] Platelet mean volume (Bld) [Entitic vol] 11.0 fL Normal 9.0-12.7 [facility] Comment on above: Order Comment: Speci men Type: BLOOD SPECIMEN Ordering Facility: [facility] Address: [address] [place] [address] Performed By: #### 5 8410-2 #### [facility] CLIA [id number] [address] [place] Platelets (Bld) [#/Vol] 181 10*3/uL Normal 150-400 [facility] Comment on above: Order Comment: Speci men Type: BLOOD SPECIMEN Ordering Facility: [facility] Address: [address] [place] [address] Performed By: #### 5 8410-2 #### [facility] CLIA [id number] [address] [place] RBC (Bld) [#/Vol] 3.95 10*6/uL Low 4.20-6.00 [facility] Comment on above: Order Comment: Speci men Type: BLOOD SPECIMEN Ordering Facility: [facility] Address: [address] [place] [address] Performed By: #### 5 8410-2 #### [facility] CLIA [id number] [address] [place] WBC (Bld) [#/Vol] 5.84 10*3/uL Normal 3.70-11.00 [facility] Comment on above: Order Comment: Speci men Type: BLOOD SPECIMEN Ordering Facility: [facility] Address: [address] [place], [place] [address], [place] [address] Performed By: #### 5 8410-2 #### [facility] [id number] [address] STATES OF [facility] CONSULT PROGobenito 03-04-2025 CONSULT PROG HNO ID: [id number] Author: BLAINE CASIANO MD Service: General Surgery [...] questions or concerns Mon-Fri 6a-5p please page [phone]. After 5pm and on Weekends and Holidays, please page [phone]. SUBJECTIVE: NAEON. Patient denies any nausea or vomiting. Reports continued passing of flatus and have bowel function. Plan for surgery today. Tolerating diet DIET NPO OBJECTIVE: Vitals: Temp (24hrs), Av.1 ?C (98.7 ?F), Min:36.3 ?C (97.3 ?F), Max:37.9 ?C (100.3 ?F) BP (!) 128/46 Pulse (!) 51 Temp 36.7 ?C (98.1 ?F) (Oral) Resp 16 Ht 175.3 cm (5' 9) Wt 64.2 kg (141 lb 8.6 oz) SpO2 95% BMI 20.90 kg/m? O2 Therapy: Room Air IANDO: Date 03/03/25699 - 03/04/2565803/04/25699 - 03/05/25 0659 Shift 6421-5637 0552-2711 3190-6123 24 Hour Total 5846-6496 7430-3260 4735-7529 24 Hour Total INTAKE PO 120 120 PO 120 120 Shift Total 120 120 OUTPUT Urine 240 223 6917 Void (ml) 995 330 8897 Urine Not Saved. 1 x 1 x # of BMs Stool Incontinence 1 x 1 x Number of BMs 0 x 0 x Shift Total 906 073 6880 Weight (kg) 64.2 64.2 64.2 64.2 64.2 [...] - D (more content not included)... Normal [facility] Magnesium SerPl-mCncon 03-04 Magnesium [Mass/Vol] 1.8 mg/dL Normal 1.7-2.3 [facility] Comment on above: Order Comment: Speci men Type: BLOOD SPECIMEN Ordering Facility: [facility] Address: [facility] [place] [address] Performed By: #### 2 777-1, 11421-9, 47667-5 #### [facility] CLIA [id number] [address] [place] OPERATIVE NOon 03-04-2025 OPERATIVE NO HNO ID: [id number] Author: JOSE HAYES MD Service: General Surgery Author Type: Physician Type: Operative Report Filed: 03/04/2025 17:57 Note Text: OPERATIVE/PROCEDURE REPORT LOG ID: [id number] Surgery/Procedure Date: 03/04/2025 Incision/Procedure Start Time: 3:42 PM Incision Close/Procedure End Time: 5:57 PM Surgeon(s)/Proceduralist(s) and Credit Support Counselor(s): Surgeons and Role: * Jose Hayes MD - Primary * Scott Yoo MD - Resident - Assisting Fuel Oil Clerk: Monse Serrano SA Procedure(s): 1.- Robotic assisted [...] and it was 12 cm. A 40 [place] VISIGI bougie had been previously placed into [...] performed and (more content not included)... Normal [facility] Phosphate SerPl-mCncon 03-04 Phosphate [Mass/Vol] 2.9 mg/dL Normal 2.7-4.8 [facility] Comment on above: Order Comment: Speci men Type: BLOOD SPECIMEN Ordering Facility: [facility] Address: [address] [place] [address] Performed By: #### 2 777-1, 11853-2, 60615-0 #### [facility] CLIA [id number] [address] [place] [address] OF [facility] THERAPY NTon 03-04-2025 THERAPY NT HNO ID: [id number] Author: MIGUEL CARDENAS CCC-SLP Service: Speech/Swallow Author Type: Speech Language Pathologist Type: Therapy (PT/OT/Speech/Resp) Filed: 03/04/2025 08:49 Note Text: SPEECH THERAPY MISSED VISIT SERVICE DATE: 03/04/2025 SERVICE TIME: 08 ROOM: [place] [address] Patient not seen due to Test / Procedure: OR. Will re-attempt speech/swallowing therapy at a later date/time. SIGNATURE: IDA Tam PATIENT NAME: Jeanie Rankin DATE: March 04, 2025 TIME: 8:49 AM Normal [facility] ALLIED HEALTHon 03-03-2025 ALLIED HEALTH HNO ID: [id number] Author: TIMMY CHAHAL Chaplain Service: Spiritual Care Author Type: Quail Farmer Type: Allied Health Filed: 03/03/2025 17:18 Note Text: SPIRITUAL CARE PROGRESS NOTE SERVICE DATE: 03/03/2025 SERVICE TIME: 5pm Quail Farmer attempted to offer support, but pt was sleeping To contact the Spiritual Care Department: Please call . SIGNATURE: Chaplain Vlad PATIENT NAME: Jeanie Rankin DATE: March 03, 2025 TIME: 5:17 PM PAGER/CONTACT #: [phone] Normal [facility] Basic metabolic 2000 panelon 03-03-2025 Anion gap [Moles/Vol] 9 mmol/L Normal 8-15 [facility] Comment on above: Order Comment: Speci men Type: BLOOD SPECIMENOrdering Facility: [facility] Address: [address] [place] [address] Performed By: #### 2 4321-2, 39733-0, 2777-1, 8 ####[facility] [id number] [place] [address] [place] Calcium [Mass/Vol] 8.9 mg/dL Normal 8.5-10.2 [facility] Comment on above: Order Comment: Speci men Type: BLOOD SPECIMENOrdering Facility: [facility] Address: [address] [place] [address] Performed By: #### 2 4321-2, 68824-0, 277-1, 257-8 ####[facility] [id number] [place] [address] [place] Chloride [Moles/Vol] 101 mmol/L Normal 98-107 [facility] Comment on above: Order Comment: Speci men Type: BLOOD SPECIMENOrdering Facility: [facility] Address: [address] [place] [address] Performed By: #### 2 4321-2, 61781-6, 2777-1, 257-8 ####[facility] [id number] [place] [address] [place] CO2 [Moles/Vol] 22 mmol/L Normal 22-30 [facility] Comment on above: Order Comment: Speci men Type: BLOOD SPECIMENOrdering Facility: [facility] Address: [address] [place] [address] Performed By: #### 2 4321-2, 06239-1, 2776-05, 2570-12 ####[facility] [id number] [place] [address] [place] Creatinine [Mass/Vol] 0.31 mg/dL Low 0.73-1.22 [facility] Comment on above: Order Comment: Speci men Type: BLOOD SPECIMENOrdering Facility: [facility] Address: [address] [place] [address] Performed By: #### 2 4321-2, 21064-0, 2776-05, 2570-12 ####[facility] [id number] [place] [address] [place] eGFRcr SerPlBld CKD-EPI 2020 115 mL/min/1.73m??? Normal >=60 [facility] Comment on above: Order Comment: Speci men Type: BLOOD SPECIMENOrdering Facility: [facility] Address: [address] [place] [address] Result Comment: Genet mated Glomerular Filtration Rate [...] actual GFR. Performed By: #### 2 4321-2, 81906-2, 2776-05, 8 ####[facility]IA [id number] [place] [address] [place] Glucose [Mass/Vol] 103 mg/dL High 74-99 [facility] Comment on above: Order Comment: Melia zuluaga Type: BLOOD SPECIMENOrdering Facility: [facility] Address: [address] [place] [address] Result Comment: The [place] Diabetes Association (ADA) provides guidance for cutoff [...] Standards of Medical Care in Diabetes 2016, [place] [employer]. Diabetes Care. 2016.39(Suppl 1). Performed By: #### 2 4321-2, 37237-8, 277-1, 8 ####[facility]ORY[facility]IA [id number] [place] [address] [place] Potassium [Moles/Vol] 4.0 mmol/L Normal 3.7-5.1 [facility] Comment on above: Order Comment: Melia zuluaga Type: BLOOD SPECIMENOrdering Facility: [facility] Address: [address] [place] [address] Performed By: #### 2 4321-2, 26001-3, 2776-1, 2570-12 ####[facility]ORY[facility]IA [id number] [place] [address] [place] Sodium [Moles/Vol] 132 mmol/L Low 136-144 [facility] Comment on above: Order Comment: Melia zuluaga Type: BLOOD SPECIMENOrdering Facility: [facility] Address: [address] [place] [address] Performed By: #### 2 4321-2, 53632-3, 2776-1, 2570-8 ####[facility]ORYCLIA [id number] [place] [address] [place] Urea nitrogen [Mass/Vol] 20 mg/dL Normal 9-24 [facility] Comment on above: Order Comment: Speci men Type: BLOOD SPECIMENOrdering Facility: [facility] Address: [address] [place] [address] Performed By: #### 2 4321-2, 93856-7, 2777-1, 2571-8 ####[facility] LABORATORYCLIA [id number] OF [facility] CBC panel Auto (Bld)on 03-03 Erythrocyte distribution width (RBC) [Ratio] 12.0 % Normal 11.5-15.0 [facility] Comment on above: Order Comment: Speci men Type: BLOOD SPECIMEN Ordering Facility: [facility] Address: [address] [place] [address] Performed By: #### 5 8410-2 #### [facility] CLIA [id number] OF [facility] Hematocrit (Bld) [Volume fraction] 37.1 % Low 39.0-51.0 [facility] Comment on above: Order Comment: Speci men Type: BLOOD SPECIMEN Ordering Facility: [facility] Address: [address] [place] [address] Performed By: #### 5 8410-2 #### [facility] CLIA [id number] [address] [facility] Hemoglobin (Bld) [Mass/Vol] 13.1 g/dL Normal 13.0-17.0 [facility] Comment on above: Order Comment: Speci men Type: BLOOD SPECIMEN Ordering Facility: [facility] Address: [address] [place] [address] Performed By: #### 5 8410-2 #### [facility] CLIA [id number] [address] MCH (RBC) [Entitic mass] 32.0 pg Normal 26.0-34.0 [facility] Comment on above: Order Comment: Speci men Type: BLOOD SPECIMEN Ordering Facility: [facility] Address: [address] [place] [address] Performed By: #### 5 8410-2 #### [facility] CLIA [id number] [address] MCHC (RBC) [Mass/Vol] 35.3 g/dL Normal 30.5-36.0 [facility] Comment on above: Order Comment: Speci men Type: BLOOD SPECIMEN Ordering Facility: [facility] Address: [address] [place] [address] Performed By: #### 5 8410-2 #### [facility] CLIA [id number] [address] [facility] MCV (RBC) [Entitic vol] 90.5 fL Normal 80.0-100.0 [facility] Comment on above: Order Comment: Speci men Type: BLOOD SPECIMEN Ordering Facility: [facility] Address: [address] [place] [address] Performed By: #### 5 8410-2 #### [facility] CLIA [id number] [address] Nucleated RBC (Bld) [#/Vol] 10*3/uL Normal <0.01 [facility] Comment on above: Order Comment: Speci men Type: BLOOD SPECIMEN Ordering Facility: [facility] Address: [address] [place] [address] Performed By: #### 5 8410-2 #### [facility] CLIA [id number] [address] Platelet mean volume (Bld) [Entitic vol] 10.8 fL Normal 9.0-12.7 [facility] Comment on above: Order Comment: Speci men Type: BLOOD SPECIMEN Ordering Facility: [facility] Address: [address] [place] [address] Performed By: #### 5 8410-2 #### [facility] CLIA [id number] [address] OF [place] Platelets (Bld) [#/Vol] 158 10*3/uL Normal 150-400 [facility] Comment on above: Order Comment: Speci men Type: BLOOD SPECIMEN Ordering Facility: [facility] Address: [address] [place] [address] Performed By: #### 5 8410-2 #### [facility] CLIA [id number] [address] [facility] RBC (Bld) [#/Vol] 4.10 10*6/uL Low 4.20-6.00 [facility] Comment on above: Order Comment: Speci men Type: BLOOD SPECIMEN Ordering Facility: [facility] Address: [address] [place] [address] Performed By: #### 5 8410-2 #### [facility] CLIA [id number] [address] WBC (Bld) [#/Vol] 8.85 10*3/uL Normal 3.70-11.00 [facility] Comment on above: Order Comment: Speci men Type: BLOOD SPECIMEN Ordering Facility: [facility] Address: [address] [place] [address] Performed By: #### 5 8410-2 #### [facility] CLIA [id number] [address] Magnesium SerPl-mCncon 03-03 Magnesium [Mass/Vol] 1.8 mg/dL Normal 1.7-2.3 [facility] Comment on above: Order Comment: Speci men Type: BLOOD SPECIMEN Ordering Facility: [facility] Address: [address] [place] [address] Performed By: #### 5 8410-2 #### [facility] CLIA [id number] [address] OF [place] NURSING PROGon 03-03-2025 NURSING PROG HNO ID: [id number] Author: BRENDON SYKES RN Service: Nursing Author Type: Registered Nurse Type: Nursing Progress Note Filed: 03/03/2025 09:13 Note Text: Pt having a bloody nose in the left nare, applied gentle pressure to left nare and bleeding has subsided at this time. Will inform assigned RN Normal [facility] Phosphate SerPl-mCncon 03-03 Phosphate [Mass/Vol] 3.0 mg/dL Normal 2.7-4.8 [facility] Comment on above: Order Comment: Speci men Type: BLOOD SPECIMEN Ordering Facility: [facility] Address: [address] [place] [address] Performed By: #### 5 8410-2 #### [facility] CLIA [id number] [address] Trigl SerPl-mCncon Triglyceride [Mass/Vol] 56 mg/dL Normal <150 [facility] Comment on above: Order Comment: Speci men Type: BLOOD SPECIMEN Ordering Facility: [facility] Address: [address] [place] [address] Result Comment: <150 mg/dL, Normal 150-199 mg/dL, Borderline high 200-499 mg/dL, High >499 mg/dL, Very high Reference: 1. National Cholesterol Education Program ATP III Guideline At-A-Glance Quick Desk Reference: National Heart, Lung, and Blood [place]. National Institutes of Health. 2001: NIH Publication No. 01-3305. Performed By: #### 5 8410-2 #### [facility] CLIA [id number] [address] Triglyceride [Mass/Vol]on FASTING TIME 12 hours Normal [facility] Comment on above: Order Comment: Speci men Type: BLOOD SPECIMEN Ordering Facility: [facility] Address: [address] [place] [address] Performed By: #### 5 8410-2 #### [facility] CLIA [id number] [address] [facility] Basic metabolic 2000 panelon 03-02-2025 Anion gap [Moles/Vol] 9 mmol/L Normal 8-15 [facility] Comment on above: Order Comment: Speci men Type: BLOOD SPECIMEN Ordering Facility: [facility] Address: [address] [place] [address] Performed By: #### 2 777-1, 62238-7, #### [facility] CLIA [id number] 1 [place] [address] [place] Calcium [Mass/Vol] 8.9 mg/dL Normal 8.5-10.2 [facility] Comment on above: Order Comment: Speci men Type: BLOOD SPECIMEN Ordering Facility: [facility] Address: [address] [place] [address] Performed By: #### 2 777-1, 39774-2, #### [facility] CLIA [id number] 1 [place] [address] [place] Chloride [Moles/Vol] 104 mmol/L Normal 98-107 [facility] Comment on above: Order Comment: Speci men Type: BLOOD SPECIMEN Ordering Facility: [facility] Address: [address] [place] [address] Performed By: #### 2 777-1, , #### [facility] CLIA [id number] 1 [place] [address] [place] CO2 [Moles/Vol] 25 mmol/L Normal 22-30 [facility] Comment on above: Order Comment: Speci men Type: BLOOD SPECIMEN Ordering Facility: [facility] Address: [address] [place] [address] Performed By: #### 2 777-1, , #### [facility] CLIA [id number] 1 [place] [address] [place] Creatinine [Mass/Vol] 0.31 mg/dL Low 0.73-1.22 [facility] Comment on above: Order Comment: Speci men Type: BLOOD SPECIMEN Ordering Facility: [facility] Address: [address] [place] [address] Performed By: #### 2 777-1, 86908-1, #### [facility] CLIA [id number] 1 [place] [address] [place] eGFRcr SerPlBld CKD-EPI 2020 115 mL/min/1.73m??? Normal >=60 [facility] Comment on above: Order Comment: Melia zuluaga Type: BLOOD SPECIMEN Ordering Facility: [facility] Address: [address] [place] [address] Result Comment: Genet mated Glomerular Filtration Rate [...] actual GFR. Performed By: #### 2 777-1, 65267-0, 74577-8 #### [facility] CLIA [id number] 1 [place] [address] [place] Glucose [Mass/Vol] 91 mg/dL Normal 74-99 [facility] Comment on above: Order Comment: Melia zuluaga Type: BLOOD SPECIMEN Ordering Facility: [facility] Address: [address] [place] [address] Result Comment: The [place] Diabetes Association (ADA) provides guidance for cutoff [...] Standards of Medical Care in Diabetes 2016, [place] [employer]. Diabetes Care. 2016.39(Suppl 1). Performed By: #### 2 777-1, 01085-6, 45866-1 #### [facility] CLIA [id number] 1 [place] [address] [place] Potassium [Moles/Vol] 4.0 mmol/L Normal 3.7-5.1 [facility] Comment on above: Order Comment: Speci men Type: BLOOD SPECIMEN Ordering Facility: [facility] Address: [address] [place] [address] Performed By: #### 2 777-1, 62437-9, #### [facility] CLIA [id number] [address] Sodium [Moles/Vol] 138 mmol/L Normal 136-144 [facility] Comment on above: Order Comment: Speci men Type: BLOOD SPECIMEN Ordering Facility: [facility] Address: [address] [place] [address] Performed By: #### 2 777-1, 31854-8, #### [facility] CLIA [id number] [address] [place] Urea nitrogen [Mass/Vol] 13 mg/dL Normal 9-24 [facility] Comment on above: Order Comment: Speci men Type: BLOOD SPECIMEN Ordering Facility: [facility] Address: [address] [place] [address] Performed By: #### 2 777-1, , #### [facility] CLIA [id number] [address] [facility] CBC panel Auto (Bld)on 03-02 Erythrocyte distribution width (RBC) [Ratio] 12.0 % Normal 11.5-15.0 [facility] Comment on above: Order Comment: Speci men Type: BLOOD SPECIMEN Ordering Facility: [facility] Address: [address] [place] [address] Performed By: #### 5 8410-2 #### [facility] CLIA [id number] [address] [facility] Hematocrit (Bld) [Volume fraction] 37.1 % Low 39.0-51.0 [facility] Comment on above: Order Comment: Speci men Type: BLOOD SPECIMEN Ordering Facility: [facility] Address: [address] [place] [address] Performed By: #### 5 8410-2 #### [facility] CLIA [id number] [address] Hemoglobin (Bld) [Mass/Vol] 12.9 g/dL Low 13.0-17.0 [facility] Comment on above: Order Comment: Speci men Type: BLOOD SPECIMEN Ordering Facility: [facility] Address: [address] [place] [address] Performed By: #### 5 8410-2 #### [facility] CLIA [id number] [address] MCH (RBC) [Entitic mass] 32.0 pg Normal 26.0-34.0 [facility] Comment on above: Order Comment: Speci men Type: BLOOD SPECIMEN Ordering Facility: [facility] Address: [address] [place] [address] Performed By: #### 5 8410-2 #### [facility] CLIA [id number] [address] MCHC (RBC) [Mass/Vol] 34.8 g/dL Normal 30.5-36.0 [facility] Comment on above: Order Comment: Speci men Type: BLOOD SPECIMEN Ordering Facility: [facility] Address: [address] [place] [address] Performed By: #### 5 8410-2 #### [facility] CLIA [id number] [address] MCV (RBC) [Entitic vol] 92.1 fL Normal 80.0-100.0 [facility] Comment on above: Order Comment: Speci men Type: BLOOD SPECIMEN Ordering Facility: [facility] Address: [address] [place] [address] Performed By: #### 5 8410-2 #### [facility] CLIA [id number] [address] Nucleated RBC (Bld) [#/Vol] 10*3/uL Normal <0.01 [facility] Comment on above: Order Comment: Speci men Type: BLOOD SPECIMEN Ordering Facility: [facility] Address: [address] [place] [address] Performed By: #### 5 8410-2 #### [facility] CLIA [id number] [address] [place] Platelet mean volume (Bld) [Entitic vol] 10.5 fL Normal 9.0-12.7 [facility] Comment on above: Order Comment: Speci men Type: BLOOD SPECIMEN Ordering Facility: [facility] Address: [facility] [place] [address] Performed By: #### 5 8410-2 #### [facility] CLIA [id number] [address] [place] Platelets (Bld) [#/Vol] 164 10*3/uL Normal 150-400 [facility] Comment on above: Order Comment: Speci men Type: BLOOD SPECIMEN Ordering Facility: [facility] Address: [address] [place] [address] Performed By: #### 5 8410-2 #### [facility] CLIA [id number] [address] [place] RBC (Bld) [#/Vol] 4.03 10*6/uL Low 4.20-6.00 [facility] Comment on above: Order Comment: Speci men Type: BLOOD SPECIMEN Ordering Facility: [facility] Address: [address] [place] [address] Performed By: #### 5 8410-2 #### [facility] CLIA [id number] [address] [place] WBC (Bld) [#/Vol] 5.53 10*3/uL Normal 3.70-11.00 [facility] Comment on above: Order Comment: Speci men Type: BLOOD SPECIMEN Ordering Facility: [facility] Address: [address] [place] [address] Performed By: #### 5 8410-2 #### [facility] CLIA [id number] [address] CONSULTon 03-02-2025 CONSULT HNO ID: [id number] Author: Maury GIORDANO MD Service: NST-Nutrition Support [...] 02/24/2025 Allergen Noted Reaction ADHESIVE 03/18/2009 NEOSPORIN [[id number]-AT*08/0 07/2005 Rash and Itching Fully Assessed 02/24/2025 [...] nontender EX (more content not included)... Normal [facility] CONSULT PROGon 03-02-2025 CONSULT PROG HNO ID: [id number] Author: CHESTER BERTRAND APRN.PHOTOCOMPOSING KEYBOARD OPERATOR Service: Gastroenterology Author Type: Nurse Specialist Type: [...] (Src) 98.2 (Oral) Resp 17 Ht 5' 9 (1.75m) Wt 141 lb 8.6 oz (64.2kg) [...] pm and on weekends, please refer to [facility] for the GI physician behavioral consultant. GI attending who can be reached via phone, pager or Epic chat. SIGNATURE: Chester Bertrand APRN.CNS PATIENT NAME: Jeanie Rankin DATE: March 02, 2025 TIME: 12:52 PM Normal [facility] ECG COMPLETEon 03-02-2025 ECG COMPLETE Ventricular Rate : 6 7 BPM Atrial Rate : 67 BPM P-R Interval : 162 ms QRS Duration : 140 ms Q-T Interval : 426 ms QTC Calculation(Bazett) : 450 ms Calculated P [place] : 28 degrees Calculated R [place] : 10 degrees Calculated T [place] : 5 degrees NORMAL SINUS RHYTHM RIGHT BUNDLE BRANCH BLOCK ABNORMAL ECG WHEN COMPARED WITH ECG OF 27-Feb-2025 09:00, QUESTIONABLE CHANGE IN QRS AXIS T WAVE INVERSION LESS EVIDENT IN ANTERIOR LEADS Confirmed by MD WATTS VINAYAK ([id number]) on 03/03/2025 8:09:03 AM NAME : JEANIE RANKIN PID : [id number] : 1940 Gender : Male Race : ORD : [id number] Procedure Date : Mar 02 2025 19:01:01 Edit Date : Mar 03 2025 08:09:17 Diagnosis: NORMAL SINUS RHYTHM RIGHT BUNDLE BRANCH BLOCK ABNORMAL ECG WHEN COMPARED WITH ECG OF 27-Feb-2025 09:00, QUESTIONABLE CHANGE IN QRS AXIS T WAVE INVERSION LESS EVIDENT IN ANTERIOR LEADS Confirmed by MD WATTS VINAYAK ([id number]) on 03/03/2025 8:09:03 AM Test Reason : Chest Pain Location : 200 : [facility] 5427 Overread By : MD WATTS VINAYAK Edited By : MD WATTS VINAYAK Referred By : , Acquired by : NAHOMI GREENE [facility] Magnesium SerPl-ncon 03-02 Magnesium [Mass/Vol] 1.7 mg/dL Normal 1.7-2.3 [facility] Comment on above: Order Comment: Speci men Type: BLOOD SPECIMEN Ordering Facility: [facility] Address: [address] [place] [address] Performed By: #### 2 337-1, 20326-1, 43158-3 #### [facility] CLIA [id number] [address] NUTRITIONon 03-02-2025 NUTRITION HNO ID: [id number] Author: KIM VICENTE RD Service: NST-Nutrition Support [...] (IDDSI Level 5) with Thin Liquids (per [employer] REMOVAL SUPERVISOR recommendation 02/27) Supplements: Premier Protein - h/o [...] March 02, 2025 TIME: 11:50 AM Normal [facility] Phosphate SerPl-mCncon 03-02 Phosphate [Mass/Vol] 2.8 mg/dL Normal 2.7-4.8 [facility] Comment on above: Order Comment: Speci men Type: BLOOD SPECIMEN Ordering Facility: [facility] Address: [address] [place] [address] Performed By: #### 2 777-1, 32657-3, 58390-5 #### [facility] CLIA [id number] [address] XR CHEST 1V FRONTALon 2024 XR [...] IMPRESSION: Mild atelectasis in the lung bases. Legal Arbitrator: PSCB Transcribe Date/Time: Mar 02 2025 9:01P Dictated by : AGNIESZKA BURNHAM MD This examination was interpreted and the report reviewed and electronically signed by: AGNIESZKA BURNHAM MD on Mar 02 2025 9:04PM EST [id number] Normal [facility] Basic metabolic 2000 panelon 03-01-2025 Anion gap [Moles/Vol] 7 mmol/L Low 8-15 [facility] Comment on above: Order Comment: Speci men Type: BLOOD SPECIMEN Ordering Facility: [facility] Address: [address] [place] [address] Performed By: #### 5 8410-2 #### [facility] CLIA [id number] [address] [place] Calcium [Mass/Vol] 8.3 mg/dL Low 8.5-10.2 [facility] Comment on above: Order Comment: Speci men Type: BLOOD SPECIMEN Ordering Facility: [facility] Address: [address] [place] [address] Performed By: #### 5 8410-2 #### [facility] CLIA [id number] 1 [place] [address] [place] Chloride [Moles/Vol] 100 mmol/L Normal 98-107 [facility] Comment on above: Order Comment: Speci men Type: BLOOD SPECIMEN Ordering Facility: [facility] Address: [address] [place] [address] Performed By: #### 5 8410-2 #### [facility] CLIA [id number] [address] [place] CO2 [Moles/Vol] 28 mmol/L Normal 22-30 [facility] Comment on above: Order Comment: Speci men Type: BLOOD SPECIMEN Ordering Facility: [facility] Address: [address] [place] [address] Performed By: #### 5 8410-2 #### [facility] CLIA [id number] [address] [place] Creatinine [Mass/Vol] 0.31 mg/dL Low 0.73-1.22 [facility] Comment on above: Order Comment: Speci men Type: BLOOD SPECIMEN Ordering Facility: [facility] Address: [address] [place] [address] Performed By: #### 5 8410-2 #### [facility] CLIA [id number] [address] [place] eGFRcr SerPlBld CKD-EPI 2020 115 mL/min/1.73m??? Normal >=60 [facility] Comment on above: Order Comment: Speci men Type: BLOOD SPECIMEN Ordering Facility: [facility] Address: [address] [place] [address] Result Comment: Genet mated Glomerular Filtration Rate [...] GFR. Performed By: #### 5 8410-2 #### [facility] CLIA [id number] 1 [place] [address] [place] Glucose [Mass/Vol] 97 mg/dL Normal 74-99 [facility] Comment on above: Order Comment: Melia zuluaga Type: BLOOD SPECIMEN Ordering Facility: [facility] Address: [address] [place] [address] Result Comment: The [place] Diabetes Association (ADA) provides guidance for cutoff [...] Standards of Medical Care in Diabetes 2016, [place] [employer]. Diabetes Care. 2016.39(Suppl 1). Performed By: #### 5 8410-2 #### [facility] CLIA [id number] 1 [place] [address] [place] Potassium [Moles/Vol] 3.7 mmol/L Normal 3.7-5.1 [facility] Comment on above: Order Comment: Melia zuluaga Type: BLOOD SPECIMEN Ordering Facility: [facility] Address: [address] [place] [id number] Performed By: #### 5 8410-2 #### [facility] CLIA [id number] [address] Sodium [Moles/Vol] 135 mmol/L Low 136-144 [facility] Comment on above: Order Comment: Speci men Type: BLOOD SPECIMEN Ordering Facility: [facility] Address: [address] [place] [address] Performed By: #### 5 8410-2 #### [facility] CLIA [id number] [address] [place] Urea nitrogen [Mass/Vol] 13 mg/dL Normal 9-24 [facility] Comment on above: Order Comment: Speci men Type: BLOOD SPECIMEN Ordering Facility: [facility] Address: [address] [place] [address] Performed By: #### 5 8410-2 #### [facility] CLIA [id number] [address] [place] OF [facility] CBC panel Auto (Bld)on 03-01 Erythrocyte distribution width (RBC) [Ratio] 12.1 % Normal 11.5-15.0 [facility] Comment on above: Order Comment: Speci men Type: BLOOD SPECIMEN Ordering Facility: [facility] Address: [address] [place] [address] Performed By: #### 5 8410-2 #### [facility] CLIA [id number] [address] [place] Hematocrit (Bld) [Volume fraction] 36.0 % Low 39.0-51.0 [facility] Comment on above: Order Comment: Speci men Type: BLOOD SPECIMEN Ordering Facility: [facility] Address: [address] [place] [address] Performed By: #### 5 8410-2 #### [facility] CLIA [id number] [address] [place] Hemoglobin (Bld) [Mass/Vol] 12.1 g/dL Low 13.0-17.0 [facility] Comment on above: Order Comment: Speci men Type: BLOOD SPECIMEN Ordering Facility: [facility] Address: [facility] [place] [address] Performed By: #### 5 8410-2 #### [facility] CLIA [id number] [address] MCH (RBC) [Entitic mass] 31.5 pg Normal 26.0-34.0 [facility] Comment on above: Order Comment: Speci men Type: BLOOD SPECIMEN Ordering Facility: [facility] Address: [address] [place] [address] Performed By: #### 5 8410-2 #### [facility] CLIA [id number] [address] MCHC (RBC) [Mass/Vol] 33.6 g/dL Normal 30.5-36.0 [facility] Comment on above: Order Comment: Speci men Type: BLOOD SPECIMEN Ordering Facility: [facility] Address: [address] [place] [address] Performed By: #### 5 8410-2 #### [facility] CLIA [id number] [address] MCV (RBC) [Entitic vol] 93.8 fL Normal 80.0-100.0 [facility] Comment on above: Order Comment: Speci men Type: BLOOD SPECIMEN Ordering Facility: [facility] Address: [address] [place] [address] Performed By: #### 5 8410-2 #### [facility] CLIA [id number] [address] Nucleated RBC (Bld) [#/Vol] 10*3/uL Normal <0.01 [facility] Comment on above: Order Comment: Speci men Type: BLOOD SPECIMEN Ordering Facility: [facility] Address: [address] [place] [address] Performed By: #### 5 8410-2 #### [facility] CLIA [id number] [address] Platelet mean volume (Bld) [Entitic vol] 10.6 fL Normal 9.0-12.7 [facility] Comment on above: Order Comment: Speci men Type: BLOOD SPECIMEN Ordering Facility: [facility] Address: [address] [place] [address] Performed By: #### 5 8410-2 #### [facility] CLIA [id number] [address] Platelets (Bld) [#/Vol] 150 10*3/uL Normal 150-400 [facility] Comment on above: Order Comment: Speci men Type: BLOOD SPECIMEN Ordering Facility: [facility] Address: [address] [place] [address] Performed By: #### 5 8410-2 #### [facility] CLIA [id number] [address] RBC (Bld) [#/Vol] 3.84 10*6/uL Low 4.20-6.00 [facility] Comment on above: Order Comment: Speci men Type: BLOOD SPECIMEN Ordering Facility: [facility] Address: [address] [place] [address] Performed By: #### 5 8410-2 #### [facility] CLIA [id number] [address] WBC (Bld) [#/Vol] 6.50 10*3/uL Normal 3.70-11.00 [facility] Comment on above: Order Comment: Speci men Type: BLOOD SPECIMEN Ordering Facility: [facility] Address: [address] [place] [address] Performed By: #### 5 8410-2 #### [facility] CLIA [id number] [address] CONSULT PROGon 03-01-2025 CONSULT PROG HNO ID: [id number] Author: PETRONA ALBRECHT MD Service: General Surgery [...] questions or concerns Mon-Fri 6a-5p please page [phone]. After 5pm and on Weekends and Holidays, please page [phone]. SUBJECTIVE: NAEON. Patient denies any nausea or vomiting. Reports continued passing of flatus, no BM. Tolerating diet DIET LIQUID OBJECTIVE: Vitals: Temp (24hrs), Av.8 ?C (98.2 ?F), Min:36.7 ?C (98.1 ?F), Max:36.8 ?C (98.3 ?F) BP 157/71 Pulse (!) 54 Temp 36.7 ?C (98.1 ?F) (Temporal) Resp 18 Ht 175.3 cm (5' 9) Wt 64.2 kg (141 lb 8.6 oz) SpO2 96% BMI 20.90 kg/m? O2 Therapy: Room Air IANDO: Date 02/28/25699 - 03/01/2565803/01/25699 - 03/02/25 0659 Shift 6998-6172 1206-4797 4675-6389 24 Hour Total 7807-1612 9639-5812 0121-5148 24 Hour Total INTAKE PO 240 240 [...] DATE: Feb (more content not included)... Normal [facility] NUTRITIONon 03-01-2025 NUTRITION HNO ID: [id number] Author: ZULEMA VILLAGRAN RD Service: Nutrition Therapy [...] Follow for diet advancement to goal (per [employer] approved consistencies/textures) Supplements: (pt has refused all, [...] Weight Type: Admit weight Estimated kilocalorie needs: 7763-9657 Calorie Calculation Method: 30-35 kcals/kg Estimated protein [...] 02/27/25 1231 Anthropometrics: Height: 175.3 cm (5' 9) Weight: 64.2 kg (141 lb 8.6 oz) [...] March 01, 2025 TIME: 10:17 AM Normal [facility] Basic metabolic 2000 panelon 02-28-2025 Anion gap [Moles/Vol] 8 mmol/L Normal 8-15 [facility] Comment on above: Order Comment: Melia zuluaga Type: BLOOD SPECIMEN Ordering Facility: [facility] Address: [address] [place] [address] Performed By: #### 2 777-1, 05869-1, 19804-6 #### [facility] CLIA [id number] [address] [place] [address] [place] Calcium [Mass/Vol] 8.6 mg/dL Normal 8.5-10.2 [facility] Comment on above: Order Comment: Melia zuluaga Type: BLOOD SPECIMEN Ordering Facility: [facility] Address: [address] [place] [address] Performed By: #### 2 777-1, 93763-1, #### [facility] CLIA [id number] 1 [place] [address] [place] Chloride [Moles/Vol] 102 mmol/L Normal 98-107 [facility] Comment on above: Order Comment: Speci men Type: BLOOD SPECIMEN Ordering Facility: [facility] Address: [address] [place] [address] Performed By: #### 2 777-1, 29334-2, #### [facility] CLIA [id number] 1 [place] [address] [place] CO2 [Moles/Vol] 33 mmol/L High 22-30 [facility] Comment on above: Order Comment: Speci men Type: BLOOD SPECIMEN Ordering Facility: [facility] Address: [address] [place] [address] Performed By: #### 2 777-1, 06345-6, #### [facility] CLIA [id number] 1 [place] [address] [place] Creatinine [Mass/Vol] 0.35 mg/dL Low 0.73-1.22 [facility] Comment on above: Order Comment: Speci men Type: BLOOD SPECIMEN Ordering Facility: [facility] Address: [address] [place] [address] Performed By: #### 2 777-1, 10293-4, #### [facility] CLIA [id number] 1 [place] [address] [place] eGFRcr SerPlBld CKD-EPI 2020 111 mL/min/1.73m??? Normal >=60 [facility] Comment on above: Order Comment: Speci men Type: BLOOD SPECIMEN Ordering Facility: [facility] Address: [address] [place] [address] Result Comment: Genet mated Glomerular Filtration Rate [...] Performed By: #### 2 777-1, , #### [facility] CLIA [id number] 1 [place] [address] [place] Glucose [Mass/Vol] 111 mg/dL High 74-99 [facility] Comment on above: Order Comment: Speci men Type: BLOOD SPECIMEN Ordering Facility: [facility] Address: [address] [place] [address] Result Comment: The [place] Diabetes [employer] (ADA) provides guidance for cutoff [...] Standards of Medical Care in Diabetes 2016, [place] [employer]. Diabetes Care. 2016.39(Suppl 1). Performed By: #### 2 777-1, , #### [facility] CLIA [id number] 1 [place] [address] [place] Potassium [Moles/Vol] 3.6 mmol/L Low 3.7-5.1 [facility] Comment on above: Order Comment: Speci men Type: BLOOD SPECIMEN Ordering Facility: [facility] Address: [address] [place] [address] Performed By: #### 2 777-1, , #### [facility] CLIA [id number] 1 [place] [address] [place] Sodium [Moles/Vol] 143 mmol/L Normal 136-144 [facility] Comment on above: Order Comment: Speci men Type: BLOOD SPECIMEN Ordering Facility: [facility] Address: [address] [place] [address] Performed By: #### 2 777-1, 56388-8, #### [facility] CLIA [id number] [address] STATES [facility] Urea nitrogen [Mass/Vol] 26 mg/dL High 01-28 [facility] Comment on above: Order Comment: Speci men Type: BLOOD SPECIMEN Ordering Facility: [facility] Address: [address] [place] [address] Performed By: #### 2 777-1, 30464-0, #### [facility] CLIA [id number] [address] OF [facility] CBC panel Auto (Bld)on 02-28 Erythrocyte distribution width (RBC) [Ratio] 12.4 % Normal 11.5-15.0 [facility] Comment on above: Order Comment: Speci men Type: BLOOD SPECIMENOrdering Facility: [facility] Address: [address] [place] [address] Performed By: #### 5 8410-2 ####[facility] [id number] [address] STATES OF [facility] Hematocrit (Bld) [Volume fraction] 36.4 % Low 39.0-51.0 [facility] Comment on above: Order Comment: Speci men Type: BLOOD SPECIMENOrdering Facility: [facility] Address: [address] [place] [address] Performed By: #### 5 8410-2 ####[facility] [id number] [address] [place] Hemoglobin (Bld) [Mass/Vol] 12.0 g/dL Low 13.0-17.0 [facility] Comment on above: Order Comment: Speci men Type: BLOOD SPECIMENOrdering Facility: [facility] Address: [address] [place] [address] Performed By: #### 5 8410-2 ####[facility] [id number] [address] MCH (RBC) [Entitic mass] 31.9 pg Normal 26.0-34.0 [facility] Comment on above: Order Comment: Speci men Type: BLOOD SPECIMENOrdering Facility: [facility] Address: [address] [place] [address] Performed By: #### 5 8410-2 ####[facility] [id number] [address] MCHC (RBC) [Mass/Vol] 33.0 g/dL Normal 30.5-36.0 [facility] Comment on above: Order Comment: Speci men Type: BLOOD SPECIMENOrdering Facility: [facility] Address: [address] [place] [address] Performed By: #### 5 8410-2 ####[facility] [id number] [address] MCV (RBC) [Entitic vol] 96.8 fL Normal 80.0-100.0 [facility] Comment on above: Order Comment: Speci men Type: BLOOD SPECIMENOrdering Facility: [facility] Address: [address] [place] [address] Performed By: #### 5 8410-2 ####[facility] [id number] [address] Nucleated RBC (Bld) [#/Vol] 10*3/uL Normal <0.01 [facility] Comment on above: Order Comment: Speci men Type: BLOOD SPECIMENOrdering Facility: [facility] Address: [address] [place] [address] Performed By: #### 5 8410-2 ####[facility] [id number] [address] Platelet mean volume (Bld) [Entitic vol] 10.3 fL Normal 9.0-12.7 [facility] Comment on above: Order Comment: Speci men Type: BLOOD SPECIMENOrdering Facility: [facility] Address: [address] [place] [address] Performed By: #### 5 8410-2 ####[facility]ORY[facility]IA [id number] [address] STATES OF [facility] Platelets (Bld) [#/Vol] 146 10*3/uL Low 150-400 [facility] Comment on above: Order Comment: Speci men Type: BLOOD SPECIMENOrdering Facility: [facility] Address: [address] [place] [address] Performed By: #### 5 8410-2 ####[facility]ORYCLIA [id number] [place] [address] [place] RBC (Bld) [#/Vol] 3.76 10*6/uL Low 4.20-6.00 [facility] Comment on above: Order Comment: Speci men Type: BLOOD SPECIMENOrdering Facility: [facility] Address: [address] [place] [address] Performed By: #### 5 8410-2 ####[facility]IA [id number] [address] [place] WBC (Bld) [#/Vol] 6.43 10*3/uL Normal 3.70-11.00 [facility] Comment on above: Order Comment: Speci men Type: BLOOD SPECIMENOrdering Facility: [facility] Address: [address] [place] [address] Performed By: #### 5 8410-2 ####[facility]ORY[facility]IA [id number] [address] [place] Magnesium SerPl-mCncon 02-28 Magnesium [Mass/Vol] 2.1 mg/dL Normal 1.7-2.3 [facility] Comment on above: Order Comment: Speci men Type: BLOOD SPECIMEN Ordering Facility: [facility] Address: [address] [place] [address] Performed By: #### 2 777-1, 08981-4, 86661-4 #### [facility] CLIA [id number] 1 [place] [address] [place] Phosphate SerPl-mCncon 02-28 Phosphate [Mass/Vol] 2.1 mg/dL Low 2.7-4.8 [facility] Comment on above: Order Comment: Speci men Type: BLOOD SPECIMEN Ordering Facility: [facility] Address: [address] [place] [address] Performed By: #### 2 777-1, 00109-1, 17779-5 #### [facility] CLIA [id number] [address] [place] [id number] [place] THERAPY NTon 02-28-2025 THERAPY NT HNO ID: [id number] Author: WU FLORES, PT Service: Physical Therapy Author Type: Physical Therapist Type: Therapy (PT/OT/Speech/Resp) Filed: 02/28/2025 16:18 Note Text: Physical Therapy Treatment Summary SERVICE DATE: 02/28/2025 SERVICE TIME: 1445 to 1525 ROOM: [place] [address] PT 6 Clicks Score: 9 DISCHARGE RECOMMENDATIONS [...] be available and he has been at [facility] before--[facility] does have SNF/ARF PRECAUTIONS Bed/Chair Alarm, Fall Risk CURRENT HOSPITAL COURSE presented to [facility] ED with abdominal pain, nausea and vomitting--found [...] gait and mobility-other TREATMENT INTERVENTIONS Therapeutic Activity (11425) Timed Code Treatment (minutes): 40 Skilled Treatment Time (minutes): 40 Therapeutic Activity (58642) Treatment Minutes: 40 $ Therapeutic Activity (56892) Billed Units: 3 units Cues for safe [...] give out (more content not included)... Normal [facility] CBC panel Auto (Bld)on 02-27 Erythrocyte distribution width (RBC) [Ratio] 12.5 % Normal 11.5-15.0 [facility] Comment on above: Order Comment: Melia zuluaga Type: BLOOD SPECIMEN Ordering Facility: [facility] Address: [address] [place] [address] Performed By: #### 5 8410-2 #### [facility] CLIA [id number] 1 [place] [address] [place] Hematocrit (Bld) [Volume fraction] 37.9 % Low 39.0-51.0 [facility] Comment on above: Order Comment: Melia zuluaga Type: BLOOD SPECIMEN Ordering Facility: [facility] Address: [address] [place] [address] Performed By: #### 5 8410-2 #### [facility] CLIA [id number] 1 [place] [address] [place] Hemoglobin (Bld) [Mass/Vol] 12.4 g/dL Low 13.0-17.0 [facility] Comment on above: Order Comment: Melia zuluaga Type: BLOOD SPECIMEN Ordering Facility: [facility] Address: [address] [place] [address] Performed By: #### 5 8410-2 #### [facility] CLIA [id number] [address] MCH (RBC) [Entitic mass] 32.0 pg Normal 26.0-34.0 [facility] Comment on above: Order Comment: Speci men Type: BLOOD SPECIMEN Ordering Facility: [facility] Address: [address] [place] [address] Performed By: #### 5 8410-2 #### [facility] CLIA [id number] [address] MCHC (RBC) [Mass/Vol] 32.7 g/dL Normal 30.5-36.0 [facility] Comment on above: Order Comment: Speci men Type: BLOOD SPECIMEN Ordering Facility: [facility] Address: [address] [place] [address] Performed By: #### 5 8410-2 #### [facility] CLIA [id number] [address] MCV (RBC) [Entitic vol] 97.7 fL Normal 80.0-100.0 [facility] Comment on above: Order Comment: Speci men Type: BLOOD SPECIMEN Ordering Facility: [facility] Address: [address] [place] [address] Performed By: #### 5 8410-2 #### [facility] CLIA [id number] [address] Nucleated RBC (Bld) [#/Vol] 10*3/uL Normal <0.01 [facility] Comment on above: Order Comment: Speci men Type: BLOOD SPECIMEN Ordering Facility: [facility] Address: [address] [place] [address] Performed By: #### 5 8410-2 #### [facility] CLIA [id number] [address] Platelet mean volume (Bld) [Entitic vol] 10.4 fL Normal 9.0-12.7 [facility] Comment on above: Order Comment: Speci men Type: BLOOD SPECIMEN Ordering Facility: [facility] Address: [address] [place] [address] Performed By: #### 5 8410-2 #### [facility] CLIA [id number] [address] Platelets (Bld) [#/Vol] 173 10*3/uL Normal 150-400 [facility] Comment on above: Order Comment: Speci men Type: BLOOD SPECIMEN Ordering Facility: [facility] Address: [address] [place] [address] Performed By: #### 5 8410-2 #### [facility] CLIA [id number] [address] [place] RBC (Bld) [#/Vol] 3.88 10*6/uL Low 4.20-6.00 [facility] Comment on above: Order Comment: Speci men Type: BLOOD SPECIMEN Ordering Facility: [facility] Address: [address] [place] [address] Performed By: #### 5 8410-2 #### [facility] CLIA [id number] [address] WBC (Bld) [#/Vol] 6.76 10*3/uL Normal 3.70-11.00 [facility] Comment on above: Order Comment: Speci men Type: BLOOD SPECIMEN Ordering Facility: [facility] Address: [address] [place] [address] Performed By: #### 5 8410-2 #### [facility] CLIA [id number] [address] CONSULTon 02-27-2025 CONSULT HNO ID: [id number] Author: RONDA DUMONT APRN.PHOTOCOMPOSING KEYBOARD OPERATOR Service: Geriatrics Author Type: Nurse Specialist Type: Consults Filed: 02/27/2025 12:47 Note Text: GERIATRIC SURGERY SERVICE CONSULT NOTE PATIENT NAME: Jeanie Rankin [id number]* CONSULT TO GERIATRICS (AK) Consult performed by: Ronda Dumont APRN.PHOTOCOMPOSING KEYBOARD OPERATOR Consult ordered by: Nadiya Camilo MD Reason for consult: Age 84 HISTORY OF PRESENT ILLNESS: Jeanie Rankin is a 84 year old male with a past medical history of nodular B cell lymphoma 2007, esophagitis, hiatal hernia, diverticulosis, fout, , HTN, hypogonadism, IBM, and osteoporosis who was admitted on 02/24/2025 for gastric outlet obstruction. Patient went to [facility] ED for recurrent emesis, imaging revealed large hiatal hernia containing a significant portion of the gastric body and subsequently causing gastric outlet obstruction . NGT was placed and was transferred to [facility] for evaluation. Patient was admitted under medicine to [facility]. General surgery was consulted, had discussion [...] prescriptions were reported. 02/27/2025 by Ronda Dumont APRN.PHOTOCOMPOSING KEYBOARD OPERATOR Current Facility-Administered Medications Medication Dose Route Frequency [...] 02/24/2025 Allergen Noted Reaction ADHESIVE 03/18/2009 NEOSPORIN [SIZGOWAF-PJMVKMWEHO-YY*08/0 07/2005 Rash and Itching Fully Assessed 02/24/2025 Review of Systems Constitutional: Positive (more content not included)... Normal [facility] CONSULT PROGon 02-27-2025 CONSULT PROG HNO ID: [id number] Author: JOSE DAVIS APRN.CNP Service: Clinical Cardiology Author Type: Nurse Practitioner Type: Consult Progress Note Filed: 02/27/2025 14:17 Note Text: CARDIOLOGY CONSULT PROGRESS NOTE CARDIOLOGY ATTENDING: Rick Brito M.D. Date and Reason for initial consult: Preop risk assessment INTERVAL HISTORY: This is an 84-year-old male with past medical history significant for hypertension, inclusion body myositis, lymphoma, and hiatal hernia who initially presented to [facility] ED 02/24/2025 with complaints of abdominal pain, nausea and vomiting x 3 days. CTAP showed large hiatal hernia with gastric outlet obstruction, NG tube was placed. He was transferred to [facility] 02/25/2025. He underwent EGD in 02/26 which [...] moderate isch (more content not included)... Normal [facility] CONSULT PROG HNO ID: [id number] Author: BLAINE CASIANO MD Service: General Surgery [...] questions or concerns Sun-Sun 6a-5p please page [phone]. After 5pm and on Weekends and Holidays, please page [phone]. SUBJECTIVE: Patient had EGD yesterday notable for [...] (Temporal) Resp 18 Ht 175.3 cm (5' 9) Wt 64.2 kg (141 lb 8.6 oz) SpO2 93% BMI 20.90 kg/m? O2 Therapy: Room Air IANDO: Date 02/26/25 07 - 02/27/25 0659 02/27/25 07 - 02/28/25 0659 Shift 5672-5959 2103-7937 8294-2731 24 Hour Total 3137-1536 7795-2017 4208-0662 24 Hour Total INTAKE Shift Total OUTPUT Urine 150 250 400 Void (ml) 150 250 400 Tubes 700 700 Output mL (I/O) ([REMOVED] GI/ Feeding 02/24/25 External Facility Left Naris 02/26/25 1125) 700 700 Shift Total 330 719 2853 Weight (kg) 64.2 64.2 64.2 64.2 64.2 [...] Pager: s (more content not included)... Normal [facility] Comprehensive metabolic 2000 panelon 02-27-2025 Albumin [Mass/Vol] 3.5 g/dL Low 3.9-4.9 [facility] Comment on above: Order Comment: Speci men Type: BLOOD SPECIMEN Ordering Facility: [facility] Address: [address] [place] [address] Performed By: #### 2 777-1, 45802-1, 71965-1 #### [facility] CLIA [id number] [address] [place] [address] [place] ALP [Catalytic activity/Vol] 51 U/L Normal 38-113 [facility] Comment on above: Order Comment: Speci men Type: BLOOD SPECIMEN Ordering Facility: [facility] Address: [address] [place] [address] Performed By: #### 2 777-1, 90607-6, #### [facility] CLIA [id number] [address] OF [facility] ALT With P-5'-P [Catalytic activity/Vol] 11 U/L Normal 10-54 [facility] Comment on above: Order Comment: Speci men Type: BLOOD SPECIMEN Ordering Facility: [facility] Address: [address] [place] [address] Performed By: #### 2 777-1, , #### [facility] CLIA [id number] [address] OF [facility] Anion gap [Moles/Vol] 12 mmol/L Normal 8-15 [facility] Comment on above: Order Comment: Speci men Type: BLOOD SPECIMEN Ordering Facility: [facility] Address: [address] [place] [address] Performed By: #### 2 777-1, , #### [facility] CLIA [id number] [address] OF [facility] AST With P-5'-P [Catalytic activity/Vol] 18 U/L Normal 14-40 [facility] Comment on above: Order Comment: Speci men Type: BLOOD SPECIMEN Ordering Facility: [facility] Address: [address] [place] [address] Performed By: #### 2 777-1, 12300-1, #### [facility] CLIA [id number] [address] [place] Bilirubin [Mass/Vol] 0.7 mg/dL Normal 0.2-1.3 [facility] Comment on above: Order Comment: Speci men Type: BLOOD SPECIMEN Ordering Facility: [facility] Address: [address] [place] [address] Performed By: #### 2 777-1, 58271-0, #### [facility] CLIA [id number] [address] [place] [address] [place] Calcium [Mass/Vol] 9.1 mg/dL Normal 8.5-10.2 [facility] Comment on above: Order Comment: Speci men Type: BLOOD SPECIMEN Ordering Facility: [facility] Address: [address] [place] [address] Performed By: #### 2 777-1, , #### [facility] CLIA [id number] [address] [place] [address] [place] Chloride [Moles/Vol] 102 mmol/L Normal 98-107 [facility] Comment on above: Order Comment: Speci men Type: BLOOD SPECIMEN Ordering Facility: [facility] Address: [address] [place] [address] Performed By: #### 2 777-1, , #### [facility] CLIA [id number] [address] [place] [address] [place] CO2 [Moles/Vol] 35 mmol/L High 22-30 [facility] Comment on above: Order Comment: Speci men Type: BLOOD SPECIMEN Ordering Facility: [facility] Address: [address] [place] [address] Performed By: #### 2 777-1, , #### [facility] CLIA [id number] [address] [place] [address] [place] Creatinine [Mass/Vol] 0.46 mg/dL Low 0.73-1.22 [facility] Comment on above: Order Comment: Speci men Type: BLOOD SPECIMEN Ordering Facility: [facility] Address: [address] [place] [address] Performed By: #### 2 777-1, , #### [facility] CLIA [id number] [address] [place] [address] [place] eGFRcr SerPlBld CKD-EPI 2020 102 mL/min/1.73m??? Normal >=60 [facility] Comment on above: Order Comment: Melia zuluaga Type: BLOOD SPECIMEN Ordering Facility: [facility] Address: [address] [place] [address] Result Comment: Genet mated Glomerular Filtration Rate [...] actual GFR. Performed By: #### 2 777-1, 66664-0, #### [facility] CLIA [id number] [address] [place] [address] [place] Glucose [Mass/Vol] 81 mg/dL Normal 74-99 [facility] Comment on above: Order Comment: Melia zuluaga Type: BLOOD SPECIMEN Ordering Facility: [facility] Address: [address] [place] [address] Result Comment: The [place] [employer] (ADA) provides guidance for cutoff [...] Standards of Medical Care in Diabetes 2016, [place] [employer]. Diabetes Care. 2016.39(Suppl 1). Performed By: #### 2 777-1, 80236-6, #### [facility] CLIA [id number] [address] [place] [address] [place] Potassium [Moles/Vol] 3.5 mmol/L Low 3.7-5.1 [facility] [facility] Comment on above: Order Comment: Speci men Type: BLOOD SPECIMEN Ordering Facility: [facility] Address: [address] [place] [address] Performed By: #### 2 777-1, 59075-9, #### [facility] CLIA [id number] 1 [place] [address] [place] Protein [Mass/Vol] 6.1 g/dL Low 6.3-8.0 [facility] Comment on above: Order Comment: Speci men Type: BLOOD SPECIMEN Ordering Facility: [facility] Address: [address] [place] [address] Performed By: #### 2 777-1, 05345-9, #### [facility] CLIA [id number] 1 [place] [address] [place] Sodium [Moles/Vol] 149 mmol/L High 136-144 [facility] Comment on above: Order Comment: Speci men Type: BLOOD SPECIMEN Ordering Facility: [facility] Address: [address] [place] [address] Performed By: #### 2 777-1, 73248-2, #### [facility] CLIA [id number] 1 [place] [address] [place] Urea nitrogen [Mass/Vol] 29 mg/dL High 9-24 [facility] Comment on above: Order Comment: Speci men Type: BLOOD SPECIMEN Ordering Facility: [facility] Address: [address] [place] [address] Performed By: #### 2 777-1, 63419-6, #### [facility] CLIA [id number] 1 [place] [address] [place] Magnesium SerPl-mCncon 02-27 Magnesium [Mass/Vol] 2.2 mg/dL Normal 1.7-2.3 [facility] Comment on above: Order Comment: Speci men Type: BLOOD SPECIMEN Ordering Facility: [facility] Address: [address] [place] [address] Performed By: #### 2 777-1, 76140-2, 45569-3 #### [facility] CLIA [id number] 1 [place] [address] [place] NM CARDIAC PERF STRESS/PHARM on 02-27-2025 NM CARDIAC PERF STRESS/PHARM * * *Final Report* * * DATE OF EXAM: Feb 27 2025 10:28AM [facility] 0006 - NM CARDIAC PERF STRESS/PHARM / PROCEDURE REASON: CAD screening, low CAD risk * * * * Physician Interpretation * * * * Stress Business Development Representative Report: [facility] Date of service: 02/27/2025 7:52:00 AM [...] later. See administered radiotracer and doses below. [facility] Date of service: 02/27/2025 7:52:00 AM [...] Final * * * Stress ECG Report: [facility] Date of service: 02/27/2025 7:52:00 AM Ordering physician: KAREEM PEREZ instrumentation specialist: Mushtaq Storey RN Credit Support Counselor: Drew Calvin CEP Interpreting physician: Shawn Everett [...] 172/61 mmHg. The double product achieved was [address]. Medications: Last Used D3, CoQ10, lisinopril, MVI Resting ECG: Sinus Bradycardia, Nonspecific St-T Wave Changes and RBBB Symptoms at r (more content not included)... Normal [facility] Phosphate SerPl-mCncon 02-27 Phosphate [Mass/Vol] 3.1 mg/dL Normal 2.7-4.8 [facility] Comment on above: Order Comment: Speci men Type: BLOOD SPECIMEN Ordering Facility: [facility] Address: [address] [place] [address] Performed By: #### 2 777-1, 40594-2, 36095-6 #### [facility] CLIA [id number] 1 [place] [address] [place] THERAPY NTon 02-27-2025 THERAPY NT HNO ID: [id number] Author: WU FLORES, PT Service: Physical Therapy Author Type: Physical Therapist Type: Therapy (PT/OT/Speech/Resp) Filed: 02/27/2025 15:45 Note Text: Physical Therapy Evaluation Summary SERVICE DATE: 02/27/2025 SERVICE TIME: 1430 to 1457 ROOM: [place] [address] PT 6 Clicks Score: 8 DISCHARGE RECOMMENDATIONS [...] Fall Risk CURRENT HOSPITAL COURSE presented to [place] ED with abdominal pain, nausea and vomitting--found [...] and mobility-other TREATMENT INTERVENTIONS Evaluation, Therapeutic Activity (61816) Timed Code Treatment (minutes): 10 Skilled Treatment Time (minutes): 27 $ Evaluation-Moderate (75792) Billed Units: 1 unit Therapeutic Activity (17848) Treatment Minutes: 10 $ Therapeutic Activity (53021) Billed Units: 1 unit Needed mod A to mobilize to edge of bed--pt usually sleeps in lift chair at baseline; then needed max Ax2 to return to supine and reposition Multiple attempts to stand with height of bed fully elevated and using our walker--but pt unable to complete with this device--financial consultant aren't long enough and doesn't have correct [...] with long arms and then Ax1 to wedgie lift and he locks his knees GOALS Transfer Sit to/from Stand with: Minimal Assistance (height of bed fully elevated with his rollator walker from home) Ambulate with: Contact Guard Assistance Distance: 50 steps Device: Rollator Goal: x12 reps bilat LE AAROM exericses in supine Rehab Potential: Fair (more content not included)... Normal [facility] THERAPY NT HNO ID: [id number] Author: MIRTA VILLEDA CCC-ASBESTOS REMOVAL SUPERVISOR Service: Speech/Swallow Author Type: Speech Language Pathologist Type: Therapy (PT/OT/Speech/Resp) Filed: 02/27/2025 11:16 Note Text: Speech Therapy Clinical Swallow Evaluation SERVICE DATE: 02/27/2025 SERVICE TIME: 1042 to 1104 ROOM: [id number] IMPRESSION Swallow Deficits Identified / Suspected: Oropharyngeal [...] oropharyngeal phase TREATMENT INTERVENTIONS Clinical Swallow Evaluation (07054) Skilled Treatment Time (minutes): 22 $ Clinical Swallow Evaluation (20202) Billed Units: 1 unit TRAINING AND EDUCATION [...] all compensatory (more content not included)... Normal [facility] ANES POSTPROC EVALon 025 ANES POSTPROC EVAL HNO ID: [id number] Author: BELEN SPRING MD Service: Anesthesiology Author Type: Anesthesiologist Type: Anesthesia Postprocedure Evaluation Filed: 02/26/2025 13:19 Note Text: POST ANESTHESIA EVALUATION NOTE : 1940 Procedure Summary Date: 02/26/25 Room / Location: [facility] Anesthesia Start: 1104 Anesthesia Stop: 1201 [...] February 26, 2025 TIME: 1:19 PM CSN: [id number] Normal [facility] ANES PRE-OPon 02-26-2025 ANES PRE-OP HNO ID: [id number] Author: BELEN SPRING MD Service: Anesthesiology Author Type: Anesthesiologist Type: Anesthesia Preprocedure Evaluation Filed: 02/26/2025 10:52 Note Text: ANESTHESIOLOGY DAY OF SURGERY NOTE : 1940 Procedure Information Date/Time: 02/26/25 1115 Scheduled providers: Nadiya Camilo MD Procedure: EGD DIAGNOSTIC Location: [facility] Estimated body mass index is 20.9 kg/m? as calculated from the following: Height as of this encounter: 175.3 cm (5' 9). Weight as of this encounter: 64.2 kg [...] and consent discussed: yes. Patient / Responsible Libertarian agrees to proceed: yes Patient / Surrogate [...] February 26, 2025 TIME: 10:51 AM CSN: [id number] Normal [facility] Basic metabolic 2000 panelon 02-26-2025 Anion gap [Moles/Vol] 12 mmol/L Normal 8-15 [facility] Comment on above: Order Comment: Speci men Type: BLOOD SPECIMEN Ordering Facility: [facility] Address: [address] [place] [address] Performed By: #### 5 8410-2 #### [facility] CLIA [id number] [address] [place] [address] [place] [facility] Calcium [Mass/Vol] 9.3 mg/dL Normal 8.5-10.2 [facility] Comment on above: Order Comment: Speci men Type: BLOOD SPECIMEN Ordering Facility: [facility] Address: [address] [place] [address] Performed By: #### 5 8410-2 #### [facility] CLIA [id number] [address] [place] Chloride [Moles/Vol] 100 mmol/L Normal 98-107 [facility] Comment on above: Order Comment: Speci men Type: BLOOD SPECIMEN Ordering Facility: [facility] Address: [address] [place] [address] Performed By: #### 5 8410-2 #### [facility] CLIA [id number] [address] [place] CO2 [Moles/Vol] 36 mmol/L High 22-30 [facility] Comment on above: Order Comment: Speci men Type: BLOOD SPECIMEN Ordering Facility: [facility] Address: [address] [place] [address] Performed By: #### 5 8410-2 #### [facility] CLIA [id number] [address] STATES OF [facility] Creatinine [Mass/Vol] 0.45 mg/dL Low 0.73-1.22 [facility] Comment on above: Order Comment: Speci men Type: BLOOD SPECIMEN Ordering Facility: [facility] Address: [address] [place] [address] Performed By: #### 5 8410-2 #### [facility] CLIA [id number] [address] eGFRcr SerPlBld CKD-EPI 2020 103 mL/min/1.73m??? Normal >=60 [facility] Comment on above: Order Comment: Speci men Type: BLOOD SPECIMEN Ordering Facility: [facility] Address: [address] [place] [address] Result Comment: Genet mated Glomerular Filtration Rate [...] GFR. Performed By: #### 5 8410-2 #### [facility] CLIA [id number] [address] OF [facility] Glucose [Mass/Vol] 74 mg/dL Normal 74-99 [facility] Comment on above: Order Comment: Speci men Type: BLOOD SPECIMEN Ordering Facility: [facility] Address: [address] [place] [address] Result Comment: The [place] [employer] (ADA) provides guidance for cutoff [...] Standards of Medical Care in Diabetes 2016, [place] [employer]. Diabetes Care. 2016.39(Suppl 1). Performed By: #### 5 8410-2 #### [facility] CLIA [id number] [address] [place] Potassium [Moles/Vol] 3.4 mmol/L Low 3.7-5.1 [facility] Comment on above: Order Comment: Melia zuluaga Type: BLOOD SPECIMEN Ordering Facility: [facility] Address: [address] [place] [address] Performed By: #### 5 8410-2 #### [facility] CLIA [id number] [address] STATES OF [facility] Sodium [Moles/Vol] 148 mmol/L High 136-144 [facility] Comment on above: Order Comment: Melia zuluaga Type: BLOOD SPECIMEN Ordering Facility: [facility] Address: [address] [place] [address] Performed By: #### 5 8410-2 #### [facility] CLIA [id number] [address] [place] Urea nitrogen [Mass/Vol] 22 mg/dL Normal 9-24 [facility] Comment on above: Order Comment: Melia zuluaga Type: BLOOD SPECIMEN Ordering Facility: [facility] Address: [address] [place] [address] Performed By: #### 5 8410-2 #### [facility] CLIA [id number] [address] [place] CBC W Auto Differential pane l (Bld)on 02-26-2025 Basophils (Bld) [#/Vol] 10*3/uL Normal <0.11 [facility] Comment on above: Order Comment: Speci men Type: BLOOD SPECIMEN Ordering Facility: [facility] Address: [address] [place] [address] Performed By: #### 2 777-1, 47047-1, #### [facility] CLIA [id number] [address] [place] Basophils/100 WBC (Bld) 0.3 % Normal [facility] Comment on above: Order Comment: Speci men Type: BLOOD SPECIMEN Ordering Facility: [facility] Address: [address] [place] [address] Performed By: #### 2 777-1, , #### [facility] CLIA [id number] [address] [place] Differential cell count method Nom (Bld) Auto Normal [facility] Comment on above: Order Comment: Speci men Type: BLOOD SPECIMEN Ordering Facility: [facility] Address: [address] [place] [address] Performed By: #### 2 777-1, , #### [facility] CLIA [id number] [address] [place] Eosinophils (Bld) [#/Vol] 10*3/uL Normal <0.46 [facility] Comment on above: Order Comment: Speci men Type: BLOOD SPECIMEN Ordering Facility: [facility] Address: [address] [place] [address] Performed By: #### 2 777-1, , #### [facility] CLIA [id number] [address] [place] Eosinophils/100 WBC (Bld) 0.3 % Normal [facility] Comment on above: Order Comment: Speci men Type: BLOOD SPECIMEN Ordering Facility: [facility] Address: [address] [place] [address] Performed By: #### 2 777-1, 09147-3, #### [facility] CLIA [id number] [address] [place] Erythrocyte distribution width (RBC) [Ratio] 12.5 % Normal 11.5-15.0 [facility] Comment on above: Order Comment: Speci men Type: BLOOD SPECIMEN Ordering Facility: [facility] Address: [address] [place] [address] Performed By: #### 2 777-1, 51460-7, #### [facility] CLIA [id number] [address] [place] Hematocrit (Bld) [Volume fraction] 36.1 % Low 39.0-51.0 [facility] Comment on above: Order Comment: Speci men Type: BLOOD SPECIMEN Ordering Facility: [facility] Address: [address] [place] [address] Performed By: #### 2 777-1, , #### [facility] CLIA [id number] [address] [place] Hemoglobin (Bld) [Mass/Vol] 12.1 g/dL Low 13.0-17.0 [facility] Comment on above: Order Comment: Speci men Type: BLOOD SPECIMEN Ordering Facility: [facility] Address: [address] [place] [address] Performed By: #### 2 777-1, 60794-7, #### [facility] CLIA [id number] [address] [place] Immature granulocytes (Bld) [#/Vol] 10*3/uL Normal <0.10 [facility] Comment on above: Order Comment: Speci men Type: BLOOD SPECIMEN Ordering Facility: [facility] Address: [address] [place] [address] Performed By: #### 2 777-1, 46244-2, #### [facility] CLIA [id number] [address] [place] Immature granulocytes/100 WBC (Bld) 0.3 % Normal [facility] Comment on above: Order Comment: Speci men Type: BLOOD SPECIMEN Ordering Facility: [facility] Address: [address] [place] [address] Performed By: #### 2 777-1, 07148-1, #### [facility] CLIA [id number] [address] [place] Lymphocytes (Bld) [#/Vol] 1.18 10*3/uL Normal 1.00-4.00 [facility] Comment on above: Order Comment: Speci men Type: BLOOD SPECIMEN Ordering Facility: [facility] Address: [address] [place] [address] Performed By: #### 2 777-1, , #### [facility] CLIA [id number] [address] STATES OF [facility] Lymphocytes/100 WBC (Bld) 17.4 % Normal [facility] Comment on above: Order Comment: Speci men Type: BLOOD SPECIMEN Ordering Facility: [facility] Address: [address] [place] [address] Performed By: #### 2 777-1, , #### [facility] CLIA [id number] [address] [place] MCH (RBC) [Entitic mass] 31.8 pg Normal 26.0-34.0 [facility] Comment on above: Order Comment: Speci men Type: BLOOD SPECIMEN Ordering Facility: [facility] Address: [address] [place] [address] Performed By: #### 2 777-1, 95879-2, #### [facility] CLIA [id number] [address] [place] MCHC (RBC) [Mass/Vol] 33.5 g/dL Normal 30.5-36.0 [facility] Comment on above: Order Comment: Speci men Type: BLOOD SPECIMEN Ordering Facility: [facility] Address: [address] [place], [place] [address] Performed By: #### 2 777-1, 02620-8, #### [facility] CLIA [id number] [address] [place] MCV (RBC) [Entitic vol] 95.0 fL Normal 80.0-100.0 [facility] Comment on above: Order Comment: Speci men Type: BLOOD SPECIMEN Ordering Facility: [facility] Address: [address] [place] [address] Performed By: #### 2 777-1, , #### [facility] CLIA [id number] [address] [place] Monocytes (Bld) [#/Vol] 1.07 10*3/uL High <0.87 [facility] Comment on above: Order Comment: Speci men Type: BLOOD SPECIMEN Ordering Facility: [facility] Address: [address] [place] [address] Performed By: #### 2 777-1, , #### [facility] CLIA [id number] [address] Monocytes/100 WBC (Bld) 15.8 % Normal [facility] Comment on above: Order Comment: Speci men Type: BLOOD SPECIMEN Ordering Facility: [facility] Address: [address] [place] [address] Performed By: #### 2 777-1, , #### [facility] CLIA [id number] [address] [place] Neutrophils (Bld) [#/Vol] 4.46 10*3/uL Normal 1.45-7.50 [facility] Comment on above: Order Comment: Speci men Type: BLOOD SPECIMEN Ordering Facility: [facility] Address: [address] [place] [address] Performed By: #### 2 777-1, 81089-5, #### [facility] CLIA [id number] [address] [place] Neutrophils/100 WBC (Bld) 65.9 % Normal [facility] Comment on above: Order Comment: Speci men Type: BLOOD SPECIMEN Ordering Facility: [facility] Address: [address] [place] [address] Performed By: #### 2 777-1, 23730-7, #### [facility] CLIA [id number] [address] [place] Nucleated RBC (Bld) [#/Vol] 10*3/uL Normal <0.01 [facility] Comment on above: Order Comment: Speci men Type: BLOOD SPECIMEN Ordering Facility: [facility] Address: [address] [place] [address] Performed By: #### 2 777-1, 96293-5, #### [facility] CLIA [id number] [address] STATES [facility] Nucleated RBC/100 WBC (Bld) [Ratio] 0.0 /100 WBC Normal [facility] Comment on above: Order Comment: Speci men Type: BLOOD SPECIMEN Ordering Facility: [facility] Address: [address] [place] [address] Performed By: #### 2 777-1, 55529-4, #### [facility] CLIA [id number] [address] [place] Platelet mean volume (Bld) [Entitic vol] 10.3 fL Normal 9.0-12.7 [facility] Comment on above: Order Comment: Speci men Type: BLOOD SPECIMEN Ordering Facility: [facility] Address: [address] [place] [address] Performed By: #### 2 777-1, 70968-5, #### [facility] CLIA [id number] [address] [place] [address] [place] Platelets (Bld) [#/Vol] 174 10*3/uL Normal 150-400 [facility] Comment on above: Order Comment: Speci men Type: BLOOD SPECIMEN Ordering Facility: [facility] Address: [address] [place] [address] Performed By: #### 2 777-1, 27259-4, #### [facility] CLIA [id number] [address] [place] [address] [place] RBC (Bld) [#/Vol] 3.80 10*6/uL Low 4.20-6.00 [facility] Comment on above: Order Comment: Speci men Type: BLOOD SPECIMEN Ordering Facility: [facility] Address: [address] [place] [address] Performed By: #### 2 777-1, 05372-3, #### [facility] CLIA [id number] [address] [place] WBC (Bld) [#/Vol] 6.77 10*3/uL Normal 3.70-11.00 [facility] Comment on above: Order Comment: Speci men Type: BLOOD SPECIMEN Ordering Facility: [facility] Address: [address] [place] [address] Performed By: #### 2 777-1, 40326-3, #### [facility] CLIA [id number] [address] OF [facility] CONSULTon 02-26-2025 CONSULT HNO ID: [id number] Author: RICK BRITO MD Service: Cardiovascular Medicine [...] no results documented. Who presented to the [facility] ED on February 24, 2025 with complaints of abdominal pain. Found to have gastric outlet obstruction, so NG tube was placed and he was transferred to [facility] on 02/25. Patient underwent EGD on 02/26 [...] and RBBB. Cardiology was then consulted for preop clearance, elevated troponin. On our initial evaluation: BP 174/60 Pulse (!) 59 Temp 36.8 ?C (98.3 ?F) (Temporal) Resp 16 Ht 175.3 cm (5' 9) Wt 64.2 kg (141 lb 8.6 oz) [...] (Temporal) Resp 16 Ht 175.3 cm (5' 9) Wt 64.2 kg (141 lb 8.6 oz) SpO2 94% BMI 20.90 kg/m? Body mass index is 20.9 kg/m?., Hemoglobin A1C (%) Date Value 11/02/2011 5.5 I/O: Intake/Output Summary (Last 24 hours) at 02/26/2025 1434 Last data filed at 02/26/2025 1031 Gross per 24 hour Intake -- Output 1775 ml Net -1775 ml No results found for: [facility] LABORATORY: CBC: Recent Labs 02/26/2543602/25/25331 WBC 6.77 8.90 HB 12.1* 13.8 HCT 36.1* 40.1 PLT 174 227 MCV 95.0 92.6 RDWCV 12.5 12.6 NEUTP 65.9 -- ABSNEUT 4.46 -- LYMPHP 17.4 -- MONOP 15.8 -- EODINP 0.3 -- COAG: No results for input(s): APTT, INR in the last 168 hours. CMP: Recent Labs 02/26/2543602/25/252 GLUC 85 137* NA 146* 143 K 2.6* 3.2* CHLOR 99 94* CO2 37* 39* ANION 10 10 BUN 22 20 CREAT 0.40* 0.55* ALB 3.5* -- TBILI 0.6 -- ALKPHOS 51 -- AST 20 -- ALT 11 -- TPROT 6.1* -- URINALYSIS:No results for input(s): PH, SPGR, UGLUC, UBILI, UKET, UHB, UPROT, UROBIL, UWBC, SSA in the last 168 hours. Invalid input(s): NITR No results found for: [facility]VEF Hemoglobin A1C (%) Date Value 11/02/2011 5.5 [...] leg: No (more content not included)... Normal [facility] CONSULT PROGon 02-26-2025 CONSULT PROG HNO ID: [id number] Author: ALEJANDRO LAM MD Service: General Surgery [...] Surgery Service Pager: For questions or concerns Mon-Fri 6a-5p please page [phone]. After 5pm and on Weekends and Holidays, please page [phone] if in ICU or [phone] if on RNF. SUBJECTIVE: No acute events overnight. Patient has sinus discomfort from NG tube, but denies abdominal pain. No nausea/vomiting. Tolerating diet DIET NPO OBJECTIVE: Vitals: Temp (24hrs), Av.7 ?C (98 ?F), Min:36.6 ?C (97.8 ?F), Max:36.7 ?C (98.1 ?F) BP 162/51 Pulse (!) 57 Temp 36.6 ?C (97.8 ?F) (Temporal) Resp 16 Ht 175.3 cm (5' 9) Wt 64.2 kg (141 lb 8.6 oz) SpO2 94% BMI 20.90 kg/m? O2 Therapy: Room Air IANDO: Date 02/25/25699 - 02/26/2565802/26/25699 - 02/27/25 0659 Shift 3486-2096 9398-4681 8830-6029 24 Hour Total 8568-0794 0938-7555 5728-7128 24 Hour Total INTAKE Shift Total OUTPUT Urine 400 275 675 Void (ml) 400 275 675 Urine Not Saved. 1 x 1 x Tubes 250 650 900 Output mL (I/O) (GI/ Feeding 02/24/25 External Facility Left Naris) 250 650 900 Shift Total 013 794 9605 Weight (kg) 64.2 64.2 64.2 64.2 64.2 [...] (Age over 85 or impaired cognition):Consult to [facility] Palliative Care/Hospice: Consult not required Rehab/Therapy: PT/OT Recommendations: PT: OT: Swallow: Speech Recommendations: Speech: Speech Diet: Nutrition: Consult not required Nutrition Recommendations: MST: Total MST Score (Calculated): 5 Metal Painter: Pharmacy: Consult not needed Social Work: DONOVAN Ramos (more content not included)... Normal [facility] CONSULT PROG HNO ID: [id number] Author: JOSE HAYES MD Service: General Surgery [...] and on Weekends and Holidays, please page [phone]. SUBJECTIVE: NAEON. Pt continues to have NG [...] (Temporal) Resp 16 Ht 175.3 cm (5' 9) Wt 64.2 kg (141 lb 8.6 oz) SpO2 96% BMI 20.90 kg/m? O2 Therapy: Room Air IANDO: Date 02/25/25 0700 - 02/26/25 0659 02/26/25 0700 - 02/27/25 0659 Shift 4235-1955 4690-4158 7900-8507 24 Hour Total 1960-7718 0267-8968 3719-2346 24 Hour Total INTAKE Shift Total OUTPUT Urine 400 275 675 Void (ml) 400 275 675 Urine Not Saved. 1 x 1 x Tubes 250 650 900 Output mL (I/O) (GI/ Feeding 02/24/25 External Facility Left [facility]) 250 650 900 Shift Total 603 915 6529 Weight (kg) 64.2 64.2 64.2 64.2 64.2 [...] For questions (more content not included)... Normal [facility] Comprehensive metabolic 2000 panelon 02-26-2025 Albumin [Mass/Vol] 3.5 g/dL Low 3.9-4.9 [facility] Comment on above: Order Comment: Speci men Type: BLOOD SPECIMEN Ordering Facility: [facility] Address: [address] [place] [address] Performed By: #### 2 777-1, 86148-8, #### [facility] CLIA [id number] [address] STATES OF [facility] ALP [Catalytic activity/Vol] 51 U/L Normal 38-113 [facility] Comment on above: Order Comment: Speci men Type: BLOOD SPECIMEN Ordering Facility: [facility] Address: [address] [place] [address] Performed By: #### 2 777-1, 14889-0, #### [facility] CLIA [id number] [address] STATES OF [facility] ALT With P-5'-P [Catalytic activity/Vol] 11 U/L Normal 10-54 [facility] Comment on above: Order Comment: Speci men Type: BLOOD SPECIMEN Ordering Facility: [facility] Address: [address] [place] [address] Performed By: #### 2 777-1, 12768-7, #### [facility] CLIA [id number] [address] Anion gap [Moles/Vol] 10 mmol/L Normal 8-15 [facility] Comment on above: Order Comment: Speci men Type: BLOOD SPECIMEN Ordering Facility: [facility] Address: [address] [place] [address] Performed By: #### 2 777-1, 74064-3, #### [facility] CLIA [id number] [address] AST With P-5'-P [Catalytic activity/Vol] 20 U/L Normal 14-40 [facility] Comment on above: Order Comment: Speci men Type: BLOOD SPECIMEN Ordering Facility: [facility] Address: [address] [place] [address] Performed By: #### 2 777-1, 33448-3, #### [facility] CLIA [id number] 1 [place] [address] [place] Bilirubin [Mass/Vol] 0.6 mg/dL Normal 0.2-1.3 [facility] Comment on above: Order Comment: Speci men Type: BLOOD SPECIMEN Ordering Facility: [facility] Address: [address] [place] [address] Performed By: #### 2 777-1, , #### [facility] CLIA [id number] 1 [place] [address] [place] Calcium [Mass/Vol] 9.3 mg/dL Normal 8.5-10.2 [facility] Comment on above: Order Comment: Speci men Type: BLOOD SPECIMEN Ordering Facility: [facility] Address: [address] [place] [address] Performed By: #### 2 777-1, , #### [facility] CLIA [id number] 1 [place] [address] [place] Chloride [Moles/Vol] 99 mmol/L Normal 98-107 [facility] Comment on above: Order Comment: Speci men Type: BLOOD SPECIMEN Ordering Facility: [facility] Address: [address] [place] [address] Performed By: #### 2 777-1, , #### [facility] CLIA [id number] 1 [place] [address] [place] CO2 [Moles/Vol] 37 mmol/L High 22-30 [facility] Comment on above: Order Comment: Speci men Type: BLOOD SPECIMEN Ordering Facility: [facility] Address: [address] [place], [place] [address] Performed By: #### 2 777-1, 58565-1, #### [facility] CLIA [id number] [address] STATES OF [facility] Creatinine [Mass/Vol] 0.40 mg/dL Low 0.73-1.22 [facility] Comment on above: Order Comment: Speccollin zuluaga Type: BLOOD SPECIMEN Ordering Facility: [facility] Address: [address] [place] [address] Performed By: #### 2 777-1, 17196-1, #### [facility] CLIA [id number] [address] eGFRcr SerPlBld CKD-EPI 2020 106 mL/min/1.73m??? Normal >=60 [facility] Comment on above: Order Comment: Melia zuluaga Type: BLOOD SPECIMEN Ordering Facility: [facility] Address: [address] [place] [address] Result Comment: Genet mated Glomerular Filtration Rate [...] actual GFR. Performed By: #### 2 777-1, 81336-3, #### [facility] CLIA [id number] [address] [place] Glucose [Mass/Vol] 85 mg/dL Normal 74-99 [facility] Comment on above: Order Comment: Speci men Type: BLOOD SPECIMEN Ordering Facility: [facility] Address: [address] [place] [address] Result Comment: The [place] [employer] (ADA) provides guidance for cutoff [...] Standards of Medical Care in Diabetes 2016, [place] [employer]. Diabetes Care. 2016.39(Suppl 1). Performed By: #### 2 777-1, , #### [facility] CLIA [id number] 1 [place] [address] [place] Potassium [Moles/Vol] 2.6 mmol/L Low 3.7-5.1 [facility] Comment on above: Order Comment: Melia zuluaga Type: BLOOD SPECIMEN Ordering Facility: [facility] Address: [address] [place] [address] Performed By: #### 2 777-1, , #### [facility] CLIA [id number] 1 [place] [address] [place] Protein [Mass/Vol] 6.1 g/dL Low 6.3-8.0 [facility] Comment on above: Order Comment: Melia zuluaga Type: BLOOD SPECIMEN Ordering Facility: [facility] Address: [address] [place] [address] Performed By: #### 2 777-1, , #### [facility] CLIA [id number] 1 [place] [address] [place] Sodium [Moles/Vol] 146 mmol/L High 136-144 [facility] Comment on above: Order Comment: Leoi men Type: BLOOD SPECIMEN Ordering Facility: [facility] Address: [address] [place] [address] Performed By: #### 2 777-1, , #### [facility] CLIA [id number] 1 [place] [address] [place] Urea nitrogen [Mass/Vol] 22 mg/dL Normal 9-24 [facility] Comment on above: Order Comment: Speci men Type: BLOOD SPECIMEN Ordering Facility: [facility] Address: [facility] [place] [address] Performed By: #### 2 777-1, 12227-6, 85660-0 #### [facility] CLIA [id number] [address] STATES OF [facility] ECHOon 02-26-2025 Echocardiography Echocardiography Rep ort: Transthoracic Echo [facility] Date of service: 02/26/2025 1:57:46 [facility] Ordering physician: KAREEM PEREZ Exam indication: Abnormal ECG Technologist: Summer Calderon RDCS Interpreting physician: Dedra Pruitt MD PATIENT: Name: [...] * * Final * * * CC [facility] Image : [id number] Normal [facility] Magnesium [facility] 02-26 Magnesium [Mass/Vol] 2.3 mg/dL Normal 1.7-2.3 [facility] Comment on above: Order Comment: Speci men Type: BLOOD SPECIMEN Ordering Facility: [facility] Address: [address] [place] [address] Performed By: #### 2 777-1, 66770-4, 95019-6 #### [facility] CLIA [id number] [address] NUTRITIONon 02-26-2025 NUTRITION HNO ID: [id number] Author: GERRY MILLAN RD Service: Nutrition Therapy [...] per GI note now , present 72hrs MOBILE QA TESTER NG w/ mod output + CT imaging for large obstructing Hiatal Hernia Nutrition Intake Prior to Admission: Unable to determine Current Nutrition Intake: NPO Dosing Weight: 64.2 kg (141 lb 8.6 oz) Estimated kilocalorie needs: 6452-3230 Calorie Calculation Method: 30-35 kcals/kg Estimated protein [...] 02/25/25 0607 Anthropometrics: Height: 175.3 cm (5' 9) Weight: 64.2 kg (141 lb 8.6 oz) [...] Airways Drain Duration GI/ Feeding 02/26/25 1143 [facility] Gastric Left Naris <1 day MNT Billing: $ Routine Care : 1 unit (3 attempts, @ EGD) SIGNATURE: Gerry Millan RD PATIENT NAME: Jeanie Rankin DATE: February 26, 2025 TIME: 7:23 AM Normal [facility] Pathology biopsy report Bret (Tiss)on 02-26-2025 AP DISCLAIMER Normal [facility] Comment on above: Order Comment: Speci men Type: TISSUE SPECIMENOrdering Facility: [facility] Address: [address] [address] Result Comment: Eliseo garcia Developed Test (LDT) Disclaimer: Performance characteristics of immunohistochemical, immunofluorescent, and chromogenic in-situ hybridization tests have been determined by the performing laboratory within the [facility] Department of Pathology and Laboratory Medicine ([facility], [facility], [facility], [facility], [facility], [facility], or [facility]) in a manner consistent with CLIA requirements. One or more of these tests may not have been cleared or approved by the FDA. The [facility] Department of Pathology and Laboratory Medicine is regulated under CLIA as qualified to perform high-complexity testing. These tests are used for clinical purposes. These should not be regarded as investigational or for research. Positive and negative controls stain appropriately. Performed By: #### 6 6121-5 ####[facility] [id number] [address] CASE REPORT Normal [facility] Comment on above: Order Comment: Speci men Type: TISSUE SPECIMENOrdering Facility: [facility] Address: [address] [place] [address] Result Comment: Surg [facility] Pathology Report Case: [id number] Authorizing Provider: Nadiya Camilo, Collected: 02/26/2025 11:36 AM Ordering Location: [facility] Received: 02/26/2025 03:29 PM Pathologist: Pilo Lambert MD Specimen: Stomach, Antrum, Biopsy, r/o dysplasia and malignancy Performed By: #### 6 6121-5 ####[id number] [address] CLINICAL HISTORY Normal [facility] Comment on above: Order Comment: Speci men Type: TISSUE SPECIMENOrdering Facility: [facility] Address: [address] [place] [address] Result Comment: Asso ciated Diagnoses: K31.1 - Gastric outlet obstruction (HCC) R11.2 - Nausea and vomiting, unspecified vomiting type Z46.59 - Encounter for nasogastric (NG) tube placement Performed By: #### 6 6121-5 ####[facility] [id number] [address] DIAGNOSIS COMMENT The case was reviewe d by Dr. Tricia Worrell who agrees with the interpretation. [facility] Comment on above: Order Comment: Speci men Type: TISSUE SPECIMENOrdering Facility: [facility] Address: [address] [place] [address] Performed By: #### 6 6121-5 ####[facility] [id number] [address] FINAL DIAGNOSIS Normal [facility] Comment on above: Order Comment: Speci men Type: TISSUE SPECIMENOrdering Facility: [facility] Address: [address] [place] [address] Result Comment: Nette patel, Antrum, Biopsy: - Gastric mucosa with intestinal metaplasia (see comment). - Negative for dysplasia and malignancy. at 1228 EDT Performed By: #### 6 6121-5 ####[facility] [id number] [address] FINAL PERFORMING LAB Normal [facility] Comment on above: Order Comment: Speci men Type: TISSUE SPECIMENOrdering Facility: [facility] Address: [address] [place] [address] Result Comment: Diag nostic interpretation performed at: [facility], [address] [place] [address] CLIA# [id number] Director Patient: Chip Dennis MD Performed By: #### 6 6121-5 ####[facility] [id number] [address] GROSS DESCRIPTION Normal [facility] Comment on above: Order Comment: Speci men Type: TISSUE SPECIMENOrdering Facility: [facility] Address: [address] [place] [address] Result Comment: Larry. Anai patel, Antrum, Biopsy Received in formalin and designated stomach antrum biopsy are fragments of pantoja tissue with an aggregate measurement of 0.8 x 0.3 x 0.1 cm. The specimen is entirely submitted in cassette A1. KM February 26, 2025 3:32 PM Gross examination performed at [facility], [address] [place] [address] Performed By: #### 6 6121-5 ####[facility] [id number] [address] [place] Phosphate SerPl-mCncon 02-26 Phosphate [Mass/Vol] 2.7 mg/dL Normal 2.7-4.8 [facility] Comment on above: Order Comment: Speci men Type: BLOOD SPECIMEN Ordering Facility: [facility] Address: [address] [place] [address] [place] [address] Performed By: #### 2 777-1, 63623-7, 53518-8 #### [facility] CLIA [id number] [address] THERAPY NTon 02-26-2025 THERAPY NT HNO ID: [id number] Author: ELIDIA MENJIVAR PT Service: Physical Therapy Author Type: Physical Therapist Type: Therapy (PT/OT/Speech/Resp) Filed: 02/26/2025 10:43 Note Text: PHYSICAL THERAPY MISSED VISIT SERVICE DATE: 02/26/2025 SERVICE TIME: 1042 ROOM: [place] [id number]) Patient not seen due to Test / Procedure. Off the floor at [facility]. SIGNATURE: Elidia Menjivar PT PATIENT NAME: Jeanie Oliverc DATE: February 26, 2025 TIME: 10:43 AM Normal [facility] THERAPY NT HNO ID: [id number] Author: MIRTA VILLEDA CCC-ASBESTOS REMOVAL SUPERVISOR Service: Speech/Swallow Author Type: Speech Language Pathologist Type: Therapy (PT/OT/Speech/Resp) Filed: 02/26/2025 09:28 Note Text: SPEECH THERAPY MISSED VISIT SERVICE DATE: 02/26/2025 SERVICE TIME: 926 ROOM: [id number]- Patient not seen due to Test / Procedure. NPO for EGD. SIGNATURE: Mirta Villeda CCC-ASBESTOS REMOVAL SUPERVISOR PATIENT NAME: Jeanie Oliverc DATE: February 26, 2025 TIME: 9:28 AM Normal [facility] Upper GI endoscopyon 025 Upper GI endoscopy [facility] Gastrointestinal Endoscopy Patient Name: Jeanie Rankin Procedure Date: 02/26/2025 10:56 AM Date of : 1940 Admit Type: Inpatient Room: [place] [address] Gender: Male Note Status: Finalized Attending MD: Nadiya Camilo MD, [id number] Procedure: Upper GI endoscopy Indications: Suspected gastric [...] antiplatelet agents. Procedure Code(s): --- Professional --- 32074, Esophagogastroduodenoscopy, flexible, transoral; with biopsy, single or multiple --- Technical --- 65423, Esophagogastroduodenoscopy, flexible, transoral; with biopsy, single or multiple Diagnosis Code(s): --- Professional --- K20.90, Esophagitis, unspecified without bleeding K31.89, Other diseases of stomach and duodenum --- Technical --- K20.90, Esophagitis, unspecified without bleeding K31.89, Other diseases of stomach and duodenum CPT copyright 2020 [employer] [employer]. All rights reserved. The codes documented in this report are preliminary and upon front desk assistant review may be revised to meet current compliance requirements. Attending Participation: I personally performed the entire procedu (more content not included)... Normal [facility] Basic metabolic 2000 panelon 02-25-2025 Anion gap [Moles/Vol] 10 mmol/L Normal 8-15 [facility] Comment on above: Order Comment: Speci men Type: BLOOD SPECIMEN Ordering Facility: [facility] Address: [address] [place] [address] Performed By: #### 2 4321-2 #### [facility] CLIA [id number] 1 [place] [address] [place] Calcium [Mass/Vol] 9.7 mg/dL Normal 8.5-10.2 [facility] Comment on above: Order Comment: Speci men Type: BLOOD SPECIMEN Ordering Facility: [facility] Address: [address] [place] [address] Performed By: #### 2 4321-2 #### [facility] CLIA [id number] 1 [place] [address] [place] Chloride [Moles/Vol] 94 mmol/L Low 98-107 [facility] Comment on above: Order Comment: Speci men Type: BLOOD SPECIMEN Ordering Facility: [facility] Address: [address] [place] [address] Performed By: #### 2 4321-2 #### [facility] CLIA [id number] [address] [place] CO2 [Moles/Vol] 39 mmol/L High 22-30 [facility] Comment on above: Order Comment: Speci men Type: BLOOD SPECIMEN Ordering Facility: [facility] Address: [address] [place] [address] Performed By: #### 2 4321-2 #### [facility] CLIA [id number] [address] [place] Creatinine [Mass/Vol] 0.55 mg/dL Low 0.73-1.22 [facility] Comment on above: Order Comment: Speci men Type: BLOOD SPECIMEN Ordering Facility: [facility] Address: [address] [place] [address] Performed By: #### 2 4321-2 #### [facility] CLIA [id number] 1 [place] [address] [place] eGFRcr SerPlBld CKD-EPI 2020 97 mL/min/1.73m??? Normal >=60 [facility] Comment on above: Order Comment: Speci men Type: BLOOD SPECIMEN Ordering Facility: [facility] Address: [address] [place] [address] Result Comment: Genet mated Glomerular Filtration Rate [...] GFR. Performed By: #### 2 4321-2 #### [facility] CLIA [id number] [address] [place] Glucose [Mass/Vol] 137 mg/dL High 74-99 [facility] Comment on above: Order Comment: Melia zuluaga Type: BLOOD SPECIMEN Ordering Facility: [facility] Address: [address] [place] [address] Result Comment: The [place] [employer] (ADA) provides guidance for cutoff [...] Standards of Medical Care in Diabetes 2016, [place] [employer]. Diabetes Care. 2016.39(Suppl 1). Performed By: #### 2 4321-2 #### [facility] CLIA [id number] [address] [place] Potassium [Moles/Vol] 3.2 mmol/L Low 3.7-5.1 [facility] Comment on above: Order Comment: Melia zuluaga Type: BLOOD SPECIMEN Ordering Facility: [facility] Address: [address] [place] [id number] Performed By: #### 2 4321-2 #### [facility] CLIA [id number] [address] [place] Sodium [Moles/Vol] 143 mmol/L Normal 136-144 [facility] Comment on above: Order Comment: Leoi men Type: BLOOD SPECIMEN Ordering Facility: [facility] Address: [address] [place] [address] Performed By: #### 2 4321-2 #### [facility] CLIA [id number] [address] STATES [facility] Urea nitrogen [Mass/Vol] 20 mg/dL Normal 9-24 [facility] Comment on above: Order Comment: Speci men Type: BLOOD SPECIMEN Ordering Facility: [facility] Address: [address] [place] [address] Performed By: #### 2 4321-2 #### [facility] CLIA [id number] [address] CBC panel Auto (Bld)on 02-25 Erythrocyte distribution width (RBC) [Ratio] 12.6 % Normal 11.5-15.0 [facility] Comment on above: Order Comment: Speci men Type: BLOOD SPECIMEN Ordering Facility: [facility] Address: [address] [place] [address] Performed By: #### 5 8410-2 #### [facility] CLIA [id number] [address] Hematocrit (Bld) [Volume fraction] 40.1 % Normal 39.0-51.0 [facility] Comment on above: Order Comment: Speci men Type: BLOOD SPECIMEN Ordering Facility: [facility] Address: [address] [place] [address] Performed By: #### 5 8410-2 #### [facility] CLIA [id number] [address] Hemoglobin (Bld) [Mass/Vol] 13.8 g/dL Normal 13.0-17.0 [facility] Comment on above: Order Comment: Speci men Type: BLOOD SPECIMEN Ordering Facility: [facility] Address: [address] [place] [address] Performed By: #### 5 8410-2 #### [facility] CLIA [id number] [address] MCH (RBC) [Entitic mass] 31.9 pg Normal 26.0-34.0 [facility] Comment on above: Order Comment: Speci men Type: BLOOD SPECIMEN Ordering Facility: [facility] Address: [address] [place] [address] Performed By: #### 5 8410-2 #### [facility] CLIA [id number] [address] MCHC (RBC) [Mass/Vol] 34.4 g/dL Normal 30.5-36.0 [facility] Comment on above: Order Comment: Speci men Type: BLOOD SPECIMEN Ordering Facility: [facility] Address: [address] [place] [address] Performed By: #### 5 8410-2 #### [facility] CLIA [id number] [address] MCV (RBC) [Entitic vol] 92.6 fL Normal 80.0-100.0 [facility] Comment on above: Order Comment: Speci men Type: BLOOD SPECIMEN Ordering Facility: [facility] Address: [address] [place] [address] Performed By: #### 5 8410-2 #### [facility] CLIA [id number] [address] Nucleated RBC (Bld) [#/Vol] 10*3/uL Normal <0.01 [facility] Comment on above: Order Comment: Speci men Type: BLOOD SPECIMEN Ordering Facility: [facility] Address: [address] [place] [address] Performed By: #### 5 8410-2 #### [facility] CLIA [id number] [address] Platelet mean volume (Bld) [Entitic vol] 10.3 fL Normal 9.0-12.7 [facility] Comment on above: Order Comment: Speci men Type: BLOOD SPECIMEN Ordering Facility: [facility] Address: [address] [place] [address] Performed By: #### 5 8410-2 #### [facility] CLIA [id number] [address] Platelets (Bld) [#/Vol] 227 10*3/uL Normal 150-400 [facility] Comment on above: Order Comment: Speccollin men Type: BLOOD SPECIMEN Ordering Facility: [facility] Address: [address] [place] [address] Performed By: #### 5 8410-2 #### [facility] CLIA [id number] [address] RBC (Bld) [#/Vol] 4.33 10*6/uL Normal 4.20-6.00 [facility] Comment on above: Order Comment: Speci men Type: BLOOD SPECIMEN Ordering Facility: [facility] Address: [address] [place] [address] Performed By: #### 5 8410-2 #### [facility] CLIA [id number] [address] WBC (Bld) [#/Vol] 8.90 10*3/uL Normal 3.70-11.00 [facility] Comment on above: Order Comment: Speci men Type: BLOOD SPECIMEN Ordering Facility: [facility] Address: [address] [place] [address] Performed By: #### 5 8410-2 #### [facility] CLIA [id number] [address] CONSULTon 02-25-2025 CONSULT HNO ID: [id number] Author: RUSSELL LOPEZ MD Service: General Surgery [...] 02/24/2025 Allergen Noted Reaction ADHESIVE 03/18/2009 NEOSPORIN [DENAULUX-NIPZALYVYE-FE*08/0 07/2005 Rash and Itching Fully Assessed 02/24/2025 [...] (Src) 98.1 (Oral) Resp 16 Ht 5' 9 (1.75m) Wt 141 lb 8.6 oz (64.2kg) SpO2 99% BMI 20.89 kg/(m2). O2 Therapy: Room Air DATA: Labs: Recent Labs 02/25/25 0332 02/25/25 0159 NA 143 -- K 3.2* -- CHLOR 94* -- CO2 (more content not included)... Normal [facility] CONSULT HNO ID: [id number] Author: JULY KENT APRN.CNP Service: Gastroenterology Author [...] presents with nausea and vomiting. Presented to [facility] on 02/24/2025. On , labs as follows: [...] (Oral) Resp 16 Ht 175.3 cm (5' 9) Wt 64.2 kg (141 lb 8.6 oz) [...] Glucose ( (more content not included)... Normal [facility] ECG COMPLETEon 02-25-2025 ECG COMPLETE Ventricular Rate : 5 5 BPM Atrial Rate : 55 BPM P-R Interval : 188 ms QRS Duration : 166 ms Q-T Interval : 518 ms QTC Calculation(Bazett) : 495 ms Calculated P [place] : 42 degrees Calculated R [place] : 20 degrees Calculated T [place] : -61 degrees SINUS BRADYCARDIA RIGHT BUNDLE BRANCH BLOCK T WAVE ABNORMALITY, CONSIDER INFEROLATERAL ISCHEMIA ABNORMAL ECG WHEN COMPARED WITH ECG OF 25-Feb-2025 18:58, NO SIGNIFICANT CHANGE WAS FOUND Confirmed by SEAN CHAUDHARY, ZAKIA ([id number]) on 02/27/2025 6:40:47 PM NAME : JEANIE RANKIN PID : [id number] : 1940 Gender : Male Race : ORD : [id number] Procedure Date : Feb 25 2025 21:08:19 Edit Date : Feb 27 2025 18:40:52 Diagnosis: SINUS BRADYCARDIA RIGHT BUNDLE BRANCH BLOCK T WAVE ABNORMALITY, CONSIDER INFEROLATERAL ISCHEMIA ABNORMAL ECG WHEN COMPARED WITH ECG OF 25-Feb-2025 18:58, NO SIGNIFICANT CHANGE WAS FOUND Confirmed by ZAKIA ESTRADA MD ([id number]) on 02/27/2025 6:40:47 PM Test Reason : Arrhythmia Location : 200 : [facility] 5427 Overread By : ZAKIA ESTRADA MD Edited By : ZAKIA ESTRADA MD Referred By : , Acquired by : DILLON SANTIAGO [facility] ECG COMPLETE Ventricular Rate : 5 6 BPM Atrial Rate : 56 BPM P-R Interval : 210 ms QRS Duration : 158 ms Q-T Interval : 504 ms QTC Calculation(Bazett) : 486 ms Calculated P [place] : 30 degrees Calculated R [place] : 33 degrees Calculated T [place] : -54 degrees SINUS BRADYCARDIA WITH 1ST DEGREE A-V BLOCK RIGHT BUNDLE BRANCH BLOCK T WAVE ABNORMALITY, CONSIDER INFEROLATERAL ISCHEMIA ABNORMAL ECG NO PREVIOUS ECGS AVAILABLE Confirmed by ZAKIA ESTRADA MD ([id number]) on 02/27/2025 6:40:00 PM NAME : JEANIE RANKIN PID : [id number] : 1940 Gender : Male Race : ORD : [id number] Procedure Date : Feb 25 2025 18:58:18 Edit Date : Feb 27 2025 18:40:03 Diagnosis: SINUS BRADYCARDIA WITH 1ST DEGREE A-V BLOCK RIGHT BUNDLE BRANCH BLOCK T WAVE ABNORMALITY, CONSIDER INFEROLATERAL ISCHEMIA ABNORMAL ECG NO PREVIOUS ECGS AVAILABLE Confirmed by ZAKIA ESTRADA MD ([id number]) on 02/27/2025 6:40:00 PM Test Reason : Arrhythmia Location : 200 : [facility] 5427 Overread By : ZAKIA ESTRADA MD Edited By : ZAKIA ESTRADA MD Referred By : , Acquired by : DILLON SANTIAGO [facility] ED NOTEon 02-25-2025 ED NOTE HNO ID: [id number] Author: EUNICE BARKER RN Service: Emergency Medicine Author Type: Registered Nurse Type: ED Notes Filed: 02/25/2025 05:02 Note Text: Called 5400 at this time, RN to call back with questions Normal [facility] ED NOTE HNO ID: [id number] Author: EUNICE BARKER RN Service: Emergency Medicine Author Type: Registered Nurse Type: ED Notes Filed: 02/25/2025 02:14 Note Text: [phone] Jeni Sadler [facility] ED NOTE HNO ID: [id number] Author: EUNICE BARKER, PRASANTH Service: Emergency Medicine Author Type: Registered Nurse Type: ED Notes Filed: 02/25/2025 01:01 Note Text: NG irrigated with 60 ml of sterile water, then connected to low intermittent suctioning. Normal [facility] ED PROV NOTEon 02-25-2025 ED PROV NOTE HNO ID: [id number] Author: CARLA BERRY MD Service: Emergency Medicine Author Type: Physician Type: ED Provider Notes Filed: 02/25/2025 01:06 Note Text: Attending Note Brief HPI: Jeanie Rankin is a 84 year old male with a PMH as documented below who presents for evaluation of obstruction. Patient presented as a transfer from [place] emergency department where he went with recurrent [...] with signed paperwork at bedside transferred from [place] emergency department for gastric outlet obstruction. NG [...] the procedure(s). CARLA BERRY 02/25/25 0106 Normal [facility] ED PROV NOTE HNO ID: [id number] Author: CARLA BERRY MD Service: Emergency Medicine Author Type: Physician Type: ED Provider Notes Filed: 02/25/2025 23:56 Note Text: ED Provider Note Patient Name: Jeanie Rankin : 1940 SERVICE DATE: 02/24/25 History Patient presents with: Obstruction: Patient transfer from [place] for gastric outlet obstruction 2nd to herniation of gastric body. Patient arrives with NG tube in his left nare and pt states he has been unable to swallow since eating dinner last night. Pt arrives with [facility] paperwork as well. HPI The patient is an 84-year-old male with a past medical history of diverticulosis, esophagitis as well as previous history of B-cell nodule lymphoma presenting today for evaluation as a transfer from [place] for concern of a gastric outlet obstruction with NG tube in place. The patient states that yesterday evening following eating chicken with gravy and mashed potatoes he developed abdominal discomfort as well as difficulty swallowing resulting in nausea and vomiting without any diarrhea. When he was evaluated at [place], an NG tube was placed and laboratory [...] signs o (more content not included)... Normal [facility] HIGH SENSITIVITY TROPONIN To n 02-25-2025 Troponin T.cardiac High sensitivity method [Mass/Vol] 75 ng/L High <12 [facility] Comment on above: Order Comment: Melia zuluaga Type: BLOOD SPECIMEN Ordering Facility: [facility] Address: [address] [place] [address] Performed By: #### 2 777-1, 33394-6, #### [facility] CLIA [id number] [address] STATES OF [facility] Troponin T.cardiac High sensitivity method [Mass/Vol] 81 ng/L High <12 [facility] Comment on above: Order Comment: Melia zuluaga Type: BLOOD SPECIMEN Ordering Facility: [facility] Address: [address] [place] [address] Performed By: #### 2 777-1, 27610-1, #### [facility] CLIA [id number] [address] STATES OF [place] HISTORY PHYSICALon HISTORY PHYSICAL HNO ID: [id number] Author: DEISI VILLALTA MD Service: General Internal Medicine Author Type: Physician Type: H&P Filed: 02/25/2025 06:49 Note Text: DEPARTMENT OF HOSPITAL MEDICINE HISTORY AND PHYSICAL EXAM SERVICE DATE: 02/25/2025 SERVICE TIME: 5:49 AM Primary Care Physician: No primary care provider on file. NIGHT AND WEEKEND COVERAGE: From 7am - 7pm, please call Sound After 7pm, please call cross cover pager #[phone] Subjective CHIEF COMPLAINT: Abdominal pain, nausea and [...] labs and imaging results. CBC: Recent Labs 02/25/25331 WBC 8.90 RBC 4.33 HB 13.8 HCT 40.1 PLT 227 MCV 92.6 MCH 31.9 MPV 10.3 Coags: No results for input(s): PT, INR, APTT in the last 24 hours. BMP: Recent Labs 02/25/25331 NA 143 K 3.2* CHLOR 94* CO2 39* BUN 20 CREAT 0.55* GLUC 137* CMP: Recent Labs 10/22/25 0332 NA 143 K 3.2* CHLOR 94* CO2 39* BUN 20 CREAT 0.55* GLUC 137* CA 9.7 ANION 10 Cardiac Enzymes: No results for input(s): CK, MB, CKMB, TROPT in the last 24 hours. Liver Function, Amylase, Lipase: No results for inpu (more content not included)... Normal [facility] HISTORY PHYSICAL HNO ID: [id number] Author: ALEJANDRO LAM MD Service: General Surgery [...] full of drainage prior to transfer to [facility] for further management. Patient also had a [...] Negative for (more content not included)... Normal [facility] Lactate (Bld) [Moles/Vol]on 02-25-2025 Lactate [Moles/Vol] 1.2 mmol/L Normal 0.5-2.2 [facility] Comment on above: Order Comment: Speci men Type: BLOOD SPECIMEN Ordering Facility: [facility] Address: [address] [place] [address] Performed By: #### 2 777-1, 32175-0, 71094-5 #### [facility] CLIA [id number] [address] [place] [address] [place] NURSING PROGon 02-25-2025 NURSING PROG HNO ID: [id number] Author: MYA OROZCO RN Service: Nursing Author [...] pressure injury from previous hospital admission. Normal [facility] Abdomen Single View (Portabl e)on 02-24-2025 Abdomen Single View (Portable) [facility] Imaging Services [address] [place] [address] Abdomen Single View (Portable) MR#: [id number] Acct: [id number] Name: JEANIE RANKIN Rep #: [id number] : 1940 M 84 From: Ronnie Richards MD PCP: Dr. Taylor Zuniga DO Status: REG ER Study: Abdomen Single View (Portable) Date of Exam: Exam# [id number] Ordering Dr: Zee Alonso DO PROCEDURE: ABDOMEN [...] terminates appropriately within the stomach. Reading Location: [facility] CC: Dr. Taylor Zuniga DO; Dr. Zee Alonso DO Legal Arbitrator: Signed Normal [facility] Abdomen/Pelvis without Conto n 02-24-2025 Abdomen/Pelvis without Cont [facility] Imaging Services [address] [place], [place] [address] Abdomen/Pelvis without Cont MR#: [id number] Acct: [id number] Name: JEANIE RANKIN Rep #: [id number] : 1940 M 84 From: Ronnie Richards MD PCP: Dr. Taylor Zuniga DO Status: REG ER Study: Abdomen/Pelvis without Cont Date of Exam: 02/05 05/31 Exam# [id number] Ordering Dr: Zee Alonso DO PROCEDURE: CT [...] exam. No other acute findings. Reading Location: [facility] CC: Dr. Taylor Zuniga DO; Dr. Zee Alonso DO Legal Arbitrator: Signed Normal [facility] Absolute lymphocyte countOrd ered By: Zee Alonso on 02-24-2025 Lymphocytes Auto (Unsp spec) [#/Vol] 0.43 10*3/uL Low 0.83-4.51 [facility] Absolute neutrophil countOrd ered By: Zee Alonso on 02-24-2025 Neutrophils (Bld) [#/Vol] 8.0 10*3/uL High 2.0-7.7 [facility] Anion gap in Serum or Plasma Ordered By: Zee Currydayanara on 02-24-2025 Anion gap [Moles/Vol] 13 mmol/L - [facility] Automated lymphocyte count a s percentage of total leukocytesOrdered By: Zee Currydayanara on 02-24-2025 Lymphocytes/100 WBC Auto (Unsp spec) 4.6 % Low - [facility] BUN/creatinine ratioOrdered By: [facility] Curry[facility] on 02-24-2025 Urea nitrogen/Creatinine [Mass ratio] 26.8 mg/mg High 02-23 [facility] Basophil percentageOrdered B y: Zee Currydayanara on 02-24-2025 Basophils/100 WBC (Bld) 0.1 % 0-1 [facility] Bilirubin, totalOrdered By: [facility] Curry[facility] on 02-24-2025 Bilirubin [Mass/Vol] 0.57 mg/dL 0.00-1.30 [facility] CBC W/Diff, Automatedon 02-05 Absolute Lymph 0.43 X10 3/uL Low 0.83-4.51 [facility] Comment on above: Performed By: #### L 100.0100, L500.2500 #### [facility] [address] [place], [address] Absolute Neut 8.0 X10 3/uL High 2.0-7.7 [facility] Comment on above: Performed By: #### L 100.0100, L500.2500 #### [facility] [address] [place], [address] Basophils/100 WBC (Bld) 0.1 % Normal 0-1 [facility] Comment on above: Performed By: #### L 100.0100, L500.2500 #### [facility] [address] [place], [address] Eosinophils/100 WBC (Bld) 0.0 % Normal 0-5 [facility] Comment on above: Performed By: #### L 100.0100, L500.2500 #### [facility] [address] [place], [address] Erythrocyte distribution width (RBC) [Ratio] 12.4 % Normal 11.6-14.6 [facility] Comment on above: Performed By: #### L 100.0100, L500.2500 #### [facility] [address] [place], [address] Hematocrit (Bld) [Volume fraction] 41.8 % Normal 40-54 [facility] Comment on above: Performed By: #### L 100.0100, L500.2500 #### [facility] [address] [place], [address] Hemoglobin (Bld) [Mass/Vol] 14.4 g/dL Normal 13.0-16.5 [facility] Comment on above: Performed By: #### L 100.0100, L500.2500 #### [facility] [address] [place], [address] IG% 0.400 Normal 0.0-0.9 [facility] Comment on above: Result Comment: IG% - Immature Granulocytes (promyelocytes, myelocytes and metamyelocytes) > 1% indicates that a LEFT SHIFT is Present. Performed By: #### L 100.0100, L500.2500 #### [facility] [address] [place], [address] Lymphocytes/100 WBC (Bld) 4.6 % Low 19-41 [facility] Comment on above: Performed By: #### L 100.0100, L500.2500 #### [facility] [address] [place], [address] MCH (RBC) [Entitic mass] 31.5 pg Normal 27.0-32.0 [facility] Comment on above: Performed By: #### L 100.0100, L500.2500 #### [facility] [address] [place], [address] MCHC (RBC) [Mass/Vol] 34.4 g/dL Normal 32-36 [facility] Comment on above: Performed By: #### L 100.0100, L500.2500 #### [facility] [address] [place], [address] MCV (RBC) [Entitic vol] 91.5 fL Normal 80-94 [facility] Comment on above: Performed By: #### L 100.0100, L500.2500 #### [facility] [address] [place], [address] Monocytes/100 WBC (Bld) 8.4 % Normal 0-10 [facility] Comment on above: Performed By: #### L 100.0100, L500.2500 #### [facility] [address] [place], [address] Neutrophils/100 WBC (Bld) 86.5 % High 47-70 [facility] Comment on above: Performed By: #### L 100.0100, L500.2500 #### [facility] [address] [place], [address] Nucleated RBC (Bld) [#/Vol] 0 10*3/uL Normal 0-5 [facility] Comment on above: Performed By: #### L 100.0100, L500.2500 #### [facility] [address] [place], [address] Platelet mean volume (Bld) [Entitic vol] 10.0 fL Normal 6.2-12.0 [facility] Comment on above: Performed By: #### L 100.0100, L500.2500 #### [facility] [address] [place], [address] Platelets (Bld) [#/Vol] 247 10*3/uL Normal 150-450 [facility] Comment on above: Performed By: #### L 100.0100, L500.2500 #### [facility] [address] [place], [address] RBC (Bld) [#/Vol] 4.57 10*6/uL Low 4.6-6.2 [facility] Comment on above: Performed By: #### L 100.0100, L500.2500 #### [facility] [address] [place], [address] RDW SD 41.1 fl Normal 35.1-43.9 [facility] Comment on above: Performed By: #### L 100.0100, L500.2500 #### [facility] [address] [place], [address] WBC (Bld) [#/Vol] 9.3 10*3/uL Normal 4.4-11.0 [facility] Comment on above: Performed By: #### L 100.0100, L500.2500 #### [facility] [address] [place], [address] CT Chest, Abd, Pel w/Contras ton 02-24-2025 CT Chest, Abd, Pel w/Contrast [facility] Imaging Services [address] [place] [address] CT Chest, Abd, Pel w/Contrast MR#: [id number] Acct: [id number] Name: JEANIE RANKIN Vivian Rep #: [id number] : 1940 M 84 From: Gorge Pereyra MD PCP: Dr. Taylor Zuniga DO Status: REG ER Study: CT Chest, Abd, Pel w/Contrast Date of Exam: Exam# [id number] Ordering Dr: Ungur,Remus DO PROCEDURE: CT CHEST, ABD, PEL W/CONTRAST [...] the diaphragm. Gastric decompression recommended. Reading [facility] CC: Dr. Taylor Zuniga DO; Dr. Zee Alonso DO Legal Arbitrator: Signed Normal [facility] Carbon dioxide, total [Moles /volume] in Central venous bloodOrdered By: Zee Alonso on 02-24-2025 CO2 [Moles/Vol] 36.6 mmol/L High 21.0-32.0 [facility] Chloride assayOrdered By: Maya Alonso on 02-24-2025 Chloride [Moles/Vol] 93 mmol/L Low 98-108 [facility] Comprehensive Metabolic Prof ilon 02-24-2025 Albumin [Mass/Vol] 4.7 g/dL Normal 3.4-4.8 [facility] Comment on above: Performed By: #### L 100.0100, L500.2500 #### [facility] [address] [place], [address] Albumin/Globulin [Mass ratio] 1.4 {ratio} Normal 0.9-2.4 [facility] Comment on above: Performed By: #### L 100.0100, L500.2500 #### [facility] [address] [place], [address] ALK PHOS 68 U/L Normal 40-129 [facility] Comment on above: Performed By: #### L 100.0100, L500.2500 #### [facility] [address] [place], [address] ALT [Catalytic activity/Vol] 13 U/L Normal <=46 [facility] Comment on above: Performed By: #### L 100.0100, L500.2500 #### [facility] [address] [place], [address] AST [Catalytic activity/Vol] 22 U/L Normal <=37 [facility] Comment on above: Performed By: #### L 100.0100, L500.2500 #### [facility] [address] [place], [address] Bilirubin [Mass/Vol] 0.57 mg/dL Normal 0.00-1.30 [facility] Comment on above: Performed By: #### L 100.0100, L500.2500 #### [facility] [address] [place], [address] BUN/CRE 26.8 RATIO High 10-20 [facility] Comment on above: Performed By: #### L 100.0100, L500.2500 #### [facility] [address] [place], [address] Calcium [Mass/Vol] 10.4 mg/dL Normal 7.6-11.0 [facility] Comment on above: Performed By: #### L 100.0100, L500.2500 #### [facility] [address] [place], [address] Chloride [Moles/Vol] 93 mmol/L Low 98-108 [facility] Comment on above: Performed By: #### L 100.0100, L500.2500 #### [facility] [address] [place], [address] CO2 [Moles/Vol] 36.6 mmol/L High 21.0-32.0 [facility] Comment on above: Performed By: #### L 100.0100, L500.2500 #### [facility] [address] [place], [address] Creatinine [Mass/Vol] 0.69 mg/dL Low 0.70-1.20 [facility] Comment on above: Performed By: #### L 100.0100, L500.2500 #### [facility] [address] [place], [address] ECRCL 61.97 ml/min Normal 50-250 [facility] Comment on above: Performed By: #### L 100.0100, L500.2500 #### [facility] [address] [place], [address] GAP 13 Normal 5-15 [facility] Comment on above: Performed By: #### L 100.0100, L500.2500 #### [facility] [address] [place], [address] GFR/1.73 sq M.predicted among non-blacks MDRD (S/P/Bld) [Vol rate/Area] 90 mL/min/{1.73_m2} Normal >60 [facility] Comment on above: Result Comment: mL/m in/1.73m2 CKD-EPI Creatinine Equation (2020) Performed By: #### L 100.0100, L500.2500 #### [facility] [address] [place], [address] Globulin (S) [Mass/Vol] 3.2 g/dL Normal 2.2-4.2 [facility] Comment on above: Performed By: #### L 100.0100, L500.2500 #### [facility] [address] [place], [address] Glucose [Mass/Vol] 190 mg/dL High 70-99 [facility] Comment on above: Performed By: #### L 100.0100, L500.2500 #### [facility] [address] [place], [address] Potassium [Moles/Vol] 3.5 mmol/L Normal 3.3-5.1 [facility] Comment on above: Performed By: #### L 100.0100, L500.2500 #### [facility] [address] [place], [address] Sodium [Moles/Vol] 142 mmol/L Normal 133-145 [facility] Comment on above: Performed By: #### L 100.0100, L500.2500 #### [facility] [address] [place], [address] T PROT 7.9 g/dL Normal 5.9-8.4 [facility] Comment on above: Performed By: #### L 100.0100, L500.2500 #### [facility] [address] [place], [address] Urea nitrogen [Mass/Vol] 18 mg/dL Normal 4-19 [facility] Comment on above: Performed By: #### L 100.0100, L500.2500 #### [facility] [address] [place], [address] Consultation - Surgicalon Consultation - Surgical [facility] Medical Records Department [address] [place] [address] Consultation - Surgical 02/24/25 1900 MR#: [id number] Acct: [id number] Name: JEANIE RANKIN Rep #: [id number] : 1940 84 From: Windy Jasso MD PCP: Dr. Taylor Zuniga DO Status:DEP ER Location: ED Assessment Plan [...] tertiary care . Windy Jasso M.D. Pager: [phone] [facility] [address] [place] [address], Outpatient [facility], [address] [place] [address] Office: [phone] HPI Consult Data Date of Consult: 02/25/25 [...] body distended with fluid and air-read pending [facility] Medical History (Updated 02/24/25 @ 21:43 [...] Neosporin AdvReac Mild Itching Verified 02/24/25 17:08 (vin-vel-umxaw)) neomycin (From Neosporin AdvReac Mild Itching Verified 02/24/25 17:08 (yhu-ikm-[id number])) polymyxin B (From Neosporin AdvReac Mild Itching Verified 02/24/25 17:08 (exd-ciu-cepws)) adhesive tape AdvReac Unknown Verified 02/24/25 17:08 [...] Labs: Labor (more content not included)... Normal [facility] ED NOTEon 02-24-2025 ED NOTE HNO ID: [id number] Author: GUS NICOLE RN Service: ? Author Type: Registered Nurse Type: ED Notes Filed: 02/24/2025 23:23 Note Text: Bed: 35-ED Expected date: Expected time: Means of arrival: Comments: [place] [facility] Emergency Department Summary on 02-24-2025 Emergency Department Summary [facility] Medical Records Department [address] [place] [address] Emergency Department Summary 02/24/25 MR#: [id number] Acct: [id number] Name: EJANIE RANKIN Rep #: [id number] : 1940 84 From: Zee Alonso DO [...] in his stool or black tarry stool. [facility] Medical History (Updated 02/24/25 @ 21:43 by [...] Neosporin AdvReac Mild Itching Verified 02/24/25 17:08 (tlz-wky-rewqu)) neomycin (From Neosporin AdvReac Mild Itching Verified 02/24/25 17:08 (qvo-jcn-evrfg)) polymyxin B (From Neosporin AdvReac Mild Itching Verified 02/24/25 17:08 (mif-oas-wweol)) adhesive tape AdvReac Unknown Verified 02/24/25 17:08 [...] developed G (more content not included)... Normal [facility] Eosinophil percentageOrdered By: Zee Alonso on 02-24-2025 Eosinophils/100 WBC (Bld) 0.0 % 0-5 [facility] Erythrocyte distribution wid th ratioOrdered By: Zee Alonso on 02-24-2025 Erythrocyte distribution width (RBC) [Ratio] 12.4 % 11.6-14.6 [facility] Erythrocyte distribution wid th standard deviationOrdered By: Zee Alonso on 02-24-2025 Erythrocyte distribution width (RBC) [Ratio] 41.1 fl 35.1-43.9 [facility] Glomerular filtration rate ( GFR) estimation/1.73 sq m using serum, plasma, or whole bOrdered By: Zee Alonso on 02-24-2025 GFR/1.73 sq M.predicted among non-blacks MDRD (S/P/Bld) [Vol rate/Area] 90 mL/min/{1.73_m2} >60 [facility] Comment on above: mL/min/1.73m2 CKD-EP I Creatinine Equation (2020) Hematocrit Auto (Bld) [Volum e fraction]Ordered By: Zee Alonso on 02-24-2025 Hematocrit (Bld) [Volume fraction] 41.8 % 40-54 [facility] Hemoglobin measurementOrdere d By: Zee Alonso on 02-24-2025 Hemoglobin (Bld) [Mass/Vol] 14.4 g/dL 13.0-16.5 [facility] Immature granulocytes/100 WB C Auto (Bld)Ordered By: Zee Alonso on 02-24-2025 Immature granulocytes/100 WBC (Bld) 0.400 % 0.0-0.9 [facility] Comment on above: IG% - Immature Granu locytes (promyelocytes, myelocytes and metamyelocytes) > 1% indicates that a LEFT SHIFT is Present. Laboratory - Chemistry and C hemistry - challengeOrdered By: Zee Alonso on 02-24-2025 AST [Catalytic activity/Vol] 22 U/L <38 [facility] MCV (mean corpuscular volume ) determinationOrdered By: Zee Alonso on 02-24-2025 MCV (RBC) [Entitic vol] 91.5 fL 80-94 [facility] Mean corpuscular hemoglobin (MCH) determinationOrdered By: Zee Alonso on 02-24-2025 MCH (RBC) [Entitic mass] 31.5 pg 27.0-32.0 [facility] Mean corpuscular hemoglobin concentration (MCHC) determinationOrdered By: Zee Alonso on 02-24-2025 MCHC (RBC) [Mass/Vol] 34.4 g/dL 32-36 [facility] Mean platelet volume determi nationOrdered By: Zee Alonso on 02-24-2025 Platelet mean volume (Bld) [Entitic vol] 10.0 fL 6.2-12.0 [facility] [facility] Mon[facility] percentageOrdered B y: Zee Alonso on 02-24-2025 Monocytes/100 WBC (Bld) 8.4 % 0-10 [facility] Neutrophil percentageOrdered By: Zee Alonso on 02-24-2025 Neutrophils/100 WBC (Bld) 86.5 % High 47-70 [facility] Nucleated red blood cell per centageOrdered By: Zee Alonso on 02-24-2025 Nucleated RBC/100 WBC (Bld) [Ratio] 0 % 0-5 [facility] Platelet countOrdered By: Maya heather Gavin on 02-24-2025 Platelets (Bld) [#/Vol] 247 10*3/uL 150-450 [facility] Potassium measurement (mass/ volume)Ordered By: Zee Alonso on 02-24-2025 Potassium (Unsp spec) [Mass/Vol] 3.5 mmol/L 3.3-5.1 [facility] RBC Auto (Bld) [#/Vol]Ordere d By: Zee Alonso on 02-24-2025 RBC (Bld) [#/Vol] 4.57 10*6/uL Low 4.6-6.2 [facility] Serum creatinine measurement (mass/volume)Ordered By: Zee Alonso on 02-24-2025 Creatinine [Mass/Vol] 0.69 mg/dL Low 0.70-1.20 [facility] Serum globulin measurementOr dered By: Zee Alonso on 02-24-2025 Globulin (S) [Mass/Vol] 3.2 g/dL 2.2-4.2 [facility] Serum glucose measurement (m ass/volume)Ordered By: Zee Alonso on 02-24-2025 Glucose [Mass/Vol] 190 mg/dL High 70-99 [facility] Serum or plasma alanine kumar otransferase (ALT) measurementOrdered By: Zee Alonso on 02-24-2025 ALT [Catalytic activity/Vol] 13 U/L <47 [facility] Serum or plasma albumin marialuisa urement (mass/volume)Ordered By: Zee Alonso on 02-24-2025 Albumin [Mass/Vol] 4.7 g/dL 3.4-4.8 [facility] Serum or plasma albumin/glob ulin mass ratioOrdered By: Zee Alonso on 02-24-2025 Albumin/Globulin [Mass ratio] 1.4 {ratio} 0.9-2.4 [facility] Serum or plasma alkaline gilberto sphatase measurementOrdered By: Zee Alonso on 02-24-2025 ALP [Catalytic activity/Vol] 68 U/L 40-129 [facility] Serum or plasma calcium marialuisa urement (mass/volume)Ordered By: Remus Ungur on 02-24-2025 Calcium [Mass/Vol] 10.4 mg/dL 7.6-11.0 [facility] Serum or plasma urea nitroge n measurement (mass/volume)Ordered By: Remus Ungur on 02-24-2025 Urea nitrogen [Mass/Vol] 18 mg/dL 4-19 [facility] Sodium levelOrdered By: Remu s Ungur on 02-24-2025 Sodium [Moles/Vol] 142 mmol/L 133-145 [facility] Total proteinOrdered By: Rem us Ungur on 02-24-2025 Protein [Mass/Vol] 7.9 g/dL 5.9-8.4 [facility] White blood cell (WBC) count Ordered By: Remus Ungur on 02-24-2025 WBC (Bld) [#/Vol] 9.3 10*3/uL 4.4-11.0 [facility] Absolute lymphocyte countOrd ered By: Taylor Fast on 12-18-2024 Lymphocytes Auto (Unsp spec) [#/Vol] 1.65 10*3/uL 0.83-4.51 [facility] Absolute neutrophil countOrd ered By: Taylor Fast on 12-18-2024 Neutrophils (Bld) [#/Vol] 1.4 10*3/uL Low 2.0-7.7 [facility] Anion gap in Serum or Plasma Ordered By: Taylor Fast on 12-18-2024 Anion gap [Moles/Vol] 10 mmol/L 5-15 [facility] Automated lymphocyte count a s percentage of total leukocytesOrdered By: Taylor Fast on 12-18-2024 Lymphocytes/100 WBC Auto (Unsp spec) 42.4 % High 19-41 [facility] BUN/creatinine ratioOrdered By: Taylor Fast on 12-18-2024 Urea nitrogen/Creatinine [Mass ratio] 39.5 mg/mg High 10-20 [facility] Basophil percentageOrdered B y: Taylor Fast on 12-18-2024 Basophils/100 WBC (Bld) 0.5 % 0-1 [facility] Bilirubin, totalOrdered By: Taylor Fast on 12-18-2024 Bilirubin [Mass/Vol] 0.44 mg/dL 0.00-1.30 [facility] CBC W/Diff, Automatedon 08- Absolute Lymph 1.65 X10 3/uL Normal 0.83-4.51 [facility] Comment on above: Performed By: #### L 506.1001, L500.4050, L501.9520, L501.9985, L100.0100 #### [facility] [address] [place], [address] Absolute Neut 1.4 X10 3/uL Low 2.0-7.7 [facility] Comment on above: Performed By: #### L 506.1001, L500.4050, L501.9520, L501.9985, L100.0100 #### [facility] [address] [place], [address] Basophils/100 WBC (Bld) 0.5 % Normal 0-1 [facility] Comment on above: Performed By: #### L 506.1001, [id number], [id number], L501.9985, L100.0100 #### [facility] [address] [place], [address] Eosinophils/100 WBC (Bld) 4.1 % Normal 0-5 [facility] Comment on above: Performed By: #### L 506.1001, L500.4050, L501.9520, L501.9985, L100.0100 #### [facility] [address] [place], [address] Erythrocyte distribution width (RBC) [Ratio] 12.3 % Normal 11.6-14.6 [facility] Comment on above: Performed By: #### L 506.1001, L500.4050, L501.9520, L501.9985, L100.0100 #### [facility] [address] [place], [address] Hematocrit (Bld) [Volume fraction] 36.7 % Low 40-54 [facility] Comment on above: Performed By: #### L 506.1001, [id number], [id number], L501.9985, L100.0100 #### [facility] [address] [place], [address] Hemoglobin (Bld) [Mass/Vol] 12.4 g/dL Low 13.0-16.5 [facility] Comment on above: Performed By: #### L 506.1001, L500.4050, L501.9520, L501.9985, L100.0100 #### [facility] [address] [place], [address] IG% 0.300 Normal 0.0-0.9 [facility] Comment on above: Result Comment: IG% - Immature Granulocytes (promyelocytes, myelocytes and metamyelocytes) > 1% indicates that a LEFT SHIFT is Present. Performed By: #### L 506.1001, L500.4050, L501.9520, L501.9985, L100.0100 #### [facility] [address] [place], [address] Lymphocytes/100 WBC (Bld) 42.4 % High 19-41 [facility] Comment on above: Performed By: #### L 506.1001, [id number], [id number], L501.9985, L100.0100 #### [facility] [address] [place], [address] MCH (RBC) [Entitic mass] 31.8 pg Normal 27.0-32.0 [facility] Comment on above: Performed By: #### L 506.1001, [id number], [id number], L501.9985, L100.0100 #### [facility] [address] [place], [address] MCHC (RBC) [Mass/Vol] 33.8 g/dL Normal 32-36 [facility] Comment on above: Performed By: #### L 506.1001, [id number], L501.9520, L501.9985, L100.0100 #### [facility] [address] [place], [address] MCV (RBC) [Entitic vol] 94.1 fL High 80-94 [facility] Comment on above: Performed By: #### L 506.1001, L500.4050, [id number], L501.9985, L100.0100 #### [facility] [address] [place], [address] Monocytes/100 WBC (Bld) 16.5 % High 0-10 [facility] Comment on above: Performed By: #### L 506.1001, [id number], [id number], L501.9985, L100.0100 #### [facility] [address] [place], [address] Neutrophils/100 WBC (Bld) 36.2 % Low 47-70 [facility] Comment on above: Performed By: #### L 506.1001, L500.4050, L501.9520, L501.9985, L100.0100 #### [facility] [address] [place], [address] Nucleated RBC (Bld) [#/Vol] 0 10*3/uL Normal 0-5 [facility] Comment on above: Performed By: #### L 506.1001, L500.4050, [id number], L501.9985, L100.0100 #### [facility] [address] [place], [address] Platelet mean volume (Bld) [Entitic vol] 10.1 fL Normal 6.2-12.0 [facility] Comment on above: Performed By: #### L 506.1001, L500.4050, L501.9520, L501.9985, L100.0100 #### [facility] [address] [place], [address] Platelets (Bld) [#/Vol] 196 10*3/uL Normal 150-450 [facility] Comment on above: Performed By: #### L 506.1001, L500.4050, L501.9520, L501.9985, L100.0100 #### [facility] [address] [place], [address] RBC (Bld) [#/Vol] 3.90 10*6/uL Low 4.6-6.2 [facility] Comment on above: Performed By: #### L 506.1001, L500.4050, L501.9520, L501.9985, L100.0100 #### [facility] [address] [place], [address] RDW SD 42.7 fl Normal 35.1-43.9 [facility] Comment on above: Performed By: #### L 506.1001, L500.4050, L501.9520, L501.9985, L100.0100 #### [facility] [address] [place], [address] WBC (Bld) [#/Vol] 3.9 10*3/uL Low 4.4-11.0 [facility] Comment on above: Performed By: #### L 506.1001, L500.4050, L501.9520, L501.9985, L100.0100 #### [facility] [address] [place], [address] Carbon dioxide, total [Moles /volume] in Central venous bloodOrdered By: Taylor Fast on 12-18-2024 CO2 [Moles/Vol] 25.8 mmol/L 21.0-32.0 [facility] Chloride assayOrdered By: Lucio on 12-18-2024 Chloride [Moles/Vol] 100 mmol/L 98-108 [facility] Comprehensive Metabolic Prof ilon 12-18-2024 Albumin [Mass/Vol] 4.0 g/dL Normal 3.4-4.8 [facility] Comment on above: Performed By: #### L 506.1001, L500.4050, L501.9520, L501.9985, L100.0100 #### [facility] [address] [place], [address] Albumin/Globulin [Mass ratio] 1.5 {ratio} Normal 0.9-2.4 [facility] Comment on above: Performed By: #### L 506.1001, L500.4050, L501.9520, L501.9985, L100.0100 #### [facility] [address] [place], [address] ALK PHOS 70 U/L Normal 40-129 [facility] Comment on above: Performed By: #### L 506.1001, L500.4050, L501.9520, L501.9985, L100.0100 #### [facility] [address] [place], [address] ALT [Catalytic activity/Vol] 14 U/L Normal <=46 [facility] Comment on above: Performed By: #### L 506.1001, L500.4050, L501.9520, L501.9985, L100.0100 #### [facility] [address] [place], [address] AST [Catalytic activity/Vol] 22 U/L Normal <=37 [facility] Comment on above: Performed By: #### L 506.1001, L500.4050, L501.9520, L501.9985, L100.0100 #### [facility] [address] [place], [address] Bilirubin [Mass/Vol] 0.44 mg/dL Normal 0.00-1.30 [facility] Comment on above: Performed By: #### L 506.1001, L500.4050, L501.9520, L501.9985, L100.0100 #### [facility] [address] [place], [address] BUN/CRE 39.5 RATIO High 10-20 [facility] Comment on above: Performed By: #### L 506.1001, L500.4050, L501.9520, L501.9985, L100.0100 #### [facility] [address] [place], [address] Calcium [Mass/Vol] 9.4 mg/dL Normal 7.6-11.0 [facility] Comment on above: Performed By: #### L 506.1001, L500.4050, L501.9520, L501.9985, L100.0100 #### [facility] [address] [place], [address] Chloride [Moles/Vol] 100 mmol/L Normal 98-108 [facility] Comment on above: Performed By: #### L 506.1001, L500.4050, L501.9520, L501.9985, L100.0100 #### [facility] [address] [place], [address] CO2 [Moles/Vol] 25.8 mmol/L Normal 21.0-32.0 [facility] Comment on above: Performed By: #### L 506.1001, L500.4050, L501.9520, L501.9985, L100.0100 #### [facility] [address] [place], [address] Creatinine [Mass/Vol] 0.38 mg/dL Low 0.70-1.20 [facility] Comment on above: Performed By: #### L 506.1001, L500.4050, L501.9520, L501.9985, L100.0100 #### [facility] [address] [place], [address] GAP 10 Normal 5-15 [facility] Comment on above: Performed By: #### L 506.1001, L500.4050, L501.9520, L501.9985, L100.0100 #### [facility] [address] [place], [address] GFR/1.73 sq M.predicted among non-blacks MDRD (S/P/Bld) [Vol rate/Area] 108 mL/min/{1.73_m2} Normal >60 [facility] Comment on above: Result Comment: mL/m in/1.73m2 CKD-EPI Creatinine Equation (2020) Performed By: #### L 506.1001, L500.4050, L501.9520, L501.9985, L100.0100 #### [facility] [address] [place], [address] Globulin (S) [Mass/Vol] 2.6 g/dL Normal 2.2-4.2 [facility] Comment on above: Performed By: #### L 506.1001, L500.4050, L501.9520, L501.9985, L100.0100 #### [facility] [address] [place], [address] Glucose [Mass/Vol] 91 mg/dL Normal 70-99 [facility] Comment on above: Performed By: #### L 506.1001, L500.4050, L501.9520, L501.9985, L100.0100 #### [facility] [address] [place], [address] Potassium [Moles/Vol] 4.3 mmol/L Normal 3.3-5.1 [facility] Comment on above: Performed By: #### L 506.1001, L500.4050, L501.9520, L501.9985, L100.0100 #### [facility] [address] [place], [address] Sodium [Moles/Vol] 135 mmol/L Normal 133-145 [facility] Comment on above: Performed By: #### L 506.1001, L500.4050, L501.9520, L501.9985, L100.0100 #### [facility] [address] [place], [address] T PROT 6.5 g/dL Normal 5.9-8.4 [facility] Comment on above: Performed By: #### L 506.1001, L500.4050, L501.9520, L501.9985, L100.0100 #### [facility] [address] [place], [address] Urea nitrogen [Mass/Vol] 15 mg/dL Normal 4-19 [facility] Comment on above: Performed By: #### L 506.1001, L500.4050, L501.9520, L501.9985, L100.0100 #### [facility] [address] [place], [address] Eosinophil percentageOrdered By: Taylor Fast on 12-18-2024 Eosinophils/100 WBC (Bld) 4.1 % 0-5 [facility] Erythrocyte distribution wid th ratioOrdered By: Taylor Fast on 12-18-2024 Erythrocyte distribution width (RBC) [Ratio] 12.3 % 11.6-14.6 [facility] Erythrocyte distribution wid th standard deviationOrdered By: Taylor Fast on 12-18-2024 Erythrocyte distribution width (RBC) [Ratio] 42.7 fl 35.1-43.9 [facility] Glomerular filtration rate ( GFR) estimation/1.73 sq m using serum, plasma, or whole bOrdered By: Taylor Fast on 12-18-2024 GFR/1.73 sq M.predicted among non-blacks MDRD (S/P/Bld) [Vol rate/Area] 108 mL/min/{1.73_m2} >60 [facility] Comment on above: mL/min/1.73m2 CKD-EP I Creatinine Equation (2020) Hematocrit Auto (Bld) [Volum e fraction]Ordered By: Taylor Fast on 12-18-2024 Hematocrit (Bld) [Volume fraction] 36.7 % Low 40-54 [facility] Hemoglobin A1con 12-18-2024 HbA1c (Bld) [Mass fraction] 5.2 % Normal <=5.6 [facility] Comment on above: Result Comment: Norm al < 5.7 % Prediabetic 5.7 - 6.4 % Diabetic >or= 6.5 % Please note range changes. Performed By: #### L 506.1001, L500.4050, L501.9520, L501.9985, L100.0100 #### [facility] [place] [address], [address] Hemoglobin A1c percentageOrd ered By: Taylor on 12-18-2024 HbA1c (Bld) [Mass fraction] 5.2 % <5.7 [facility] Comment on above: Normal < 5.7 % Predi abetic 5.7 - 6.4 % Diabetic >or= 6.5 % Please note range changes. Hemoglobin measurementOrdere d By: Taylor Fast on 12-18-2024 Hemoglobin (Bld) [Mass/Vol] 12.4 g/dL Low 13.0-16.5 [facility] Immature granulocytes/100 WB C Auto (Bld)Ordered By: Taylor Fast on 12-18-2024 Immature granulocytes/100 WBC (Bld) 0.300 % 0.0-0.9 [facility] Comment on above: IG% - Immature Granu locytes (promyelocytes, myelocytes and metamyelocytes) > 1% indicates that a LEFT SHIFT is Present. Laboratory - Chemistry and C hemistry - challengeOrdered By: Taylor Fast on 12-18-2024 AST [Catalytic activity/Vol] 22 U/L <38 [facility] MCV (mean corpuscular volume ) determinationOrdered By: Taylor Fast on 12-18-2024 MCV (RBC) [Entitic vol] 94.1 fL High 80-94 [facility] Mean corpuscular hemoglobin (MCH) determinationOrdered By: Taylor Fast on 12-18-2024 MCH (RBC) [Entitic mass] 31.8 pg 27.0-32.0 [facility] Mean corpuscular hemoglobin concentration (MCHC) determinationOrdered By: Taylor Fast on 12-18-2024 MCHC (RBC) [Mass/Vol] 33.8 g/dL 32-36 [facility] Mean platelet volume determi nationOrdered By: Taylor Fast on 12-18-2024 Platelet mean volume (Bld) [Entitic vol] 10.1 fL 6.2-12.0 [facility] Monocyte percentageOrdered B y: Taylor Fast on 12-18-2024 Monocytes/100 WBC (Bld) 16.5 % High 0-10 [facility] Neutrophil percentageOrdered By: Taylor Fast on 12-18-2024 Neutrophils/100 WBC (Bld) 36.2 % Low 47-70 [facility] Nucleated red blood cell per centageOrdered By: Taylor Fast on 12-18-2024 Nucleated RBC/100 WBC (Bld) [Ratio] 0 % 0-5 [facility] Platelet countOrdered By: De armando on 12-18-2024 Platelets (Bld) [#/Vol] 196 10*3/uL 150-450 [facility] Potassium measurement (mass/ volume)Ordered By: Taylor on 12-18-2024 Potassium (Unsp spec) [Mass/Vol] 4.3 mmol/L 3.3-5.1 [facility] RBC Auto (Bld) [#/Vol]Ordere d By: Taylor Fast on 12-18-2024 RBC (Bld) [#/Vol] 3.90 10*6/uL Low 4.6-6.2 [facility] Serum creatinine measurement (mass/volume)Ordered By: Taylor Fast on 12-18-2024 Creatinine [Mass/Vol] 0.38 mg/dL Low 0.70-1.20 [facility] Serum globulin measurementOr dered By: Taylor Fast on 12-18-2024 Globulin (S) [Mass/Vol] 2.6 g/dL 2.2-4.2 [facility] Serum glucose measurement (m ass/volume)Ordered By: Taylor Fast on 12-18-2024 Glucose [Mass/Vol] 91 mg/dL 70-99 [facility] Serum or plasma alanine kumar otransferase (ALT) measurementOrdered By: Taylor Fast on 12-18-2024 ALT [Catalytic activity/Vol] 14 U/L <47 [facility] Serum or plasma albumin marialuisa urement (mass/volume)Ordered By: Taylor Fast on 12-18-2024 Albumin [Mass/Vol] 4.0 g/dL 3.4-4.8 [facility] Serum or plasma albumin/glob ulin mass ratioOrdered By: Taylor on 12-18-2024 Albumin/Globulin [Mass ratio] 1.5 {ratio} 0.9-2.4 [facility] Serum or plasma alkaline gilberto sphatase measurementOrdered By: Taylor on 12-18-2024 ALP [Catalytic activity/Vol] 70 U/L 40-129 [facility] Serum or plasma calcium marialuisa urement (mass/volume)Ordered By: Taylor Fast on 12-18-2024 Calcium [Mass/Vol] 9.4 mg/dL 7.6-11.0 [facility] Serum or plasma urea nitroge n measurement (mass/volume)Ordered By: Taylor Fast on 12-18-2024 Urea nitrogen [Mass/Vol] 15 mg/dL 4-19 [facility] Sodium levelOrdered By: Debr a Fast on 12-18-2024 Sodium [Moles/Vol] 135 mmol/L 133-145 [facility] TSH DL <= 0.005 mIU/L QnOrde red By: Taylor Fast on 12-18-2024 TSH Qn 3.470 uIU/mL 0.300-4.20 0 [facility] Thyroid Stim Hormone (TSH)on 12-18-2024 TSH 3.470 uIU/mL Normal 0.300-4.20 0 [facility] Comment on above: Performed By: #### L 506.1001, L500.4050, L501.9520, L501.9985, L100.0100 #### [facility] [address] [place], [place], [address] Total proteinOrdered By: Lyla ra Fast on 12-18-2024 Protein [Mass/Vol] 6.5 g/dL 5.9-8.4 [facility] Vitamin D,25 Hydroxyon 12-18 Vitamin D 25-OH 51.4 ng/mL Normal 30-100 [facility] Comment on above: Result Comment: Christen min D Status Deficiency: <20 ng/mL (50nmol/L) Insufficiency: 20-30 ng/mL (50-75 nmol/L) Sufficiency: 30-100 ng/mL (75-250 nmol/L) Toxicity: >100 ng/mL (>250 nmol/L) Performed By: #### L 506.1001, L500.4050, L501.9520, L501.9985, L100.0100 #### [facility] [address] [place], [place], [address] White blood cell (WBC) count Ordered By: Taylor on 12-18-2024 WBC (Bld) [#/Vol] 3.9 10*3/uL Low 4.4-11.0 [facility] Absolute lymphocyte countOrd ered By: on 09-16-2024 Lymphocytes Auto (Unsp spec) [#/Vol] 1.50 10*3/uL 0.83-4.51 [facility] Absolute neutrophil countOrd ered By: on 09-16-2024 Neutrophils (Bld) [#/Vol] 2.9 10*3/uL 2.0-7.7 [facility] Anion gap in Serum or Plasma Ordered By: Taylor on 09-16-2024 Anion gap [Moles/Vol] 8 mmol/L 5-15 [facility] Automated lymphocyte count a s percentage of total leukocytesOrdered By: Taylor on 09-16-2024 Lymphocytes/100 WBC Auto (Unsp spec) 28.6 % 19-41 [facility] BUN/creatinine ratioOrdered By: Taylor on 05-13-2025 Urea nitrogen/Creatinine [Mass ratio] 42.9 mg/mg High 10-20 [facility] Basophil percentageOrdered B y: Taylor Fast on 09-16-2024 Basophils/100 WBC (Bld) 0.4 % 0-1 [facility] Bilirubin, totalOrdered By: Taylor Fast on 09-16-2024 Bilirubin [Mass/Vol] 0.45 mg/dL 0.00-1.30 [facility] CBC W/Diff, Automatedon 09-04 Absolute Lymph 1.50 X10 3/uL Normal 0.83-4.51 [facility] Comment on above: Performed By: #### L 100.0100, L500.2500 #### [facility] [address] [place], [address] Absolute Neut 2.9 X10 3/uL Normal 2.0-7.7 [facility] Comment on above: Performed By: #### L 100.0100, L500.2500 #### [facility] [address] [place], [address] Basophils/100 WBC (Bld) 0.4 % Normal 0-1 [facility] Comment on above: Performed By: #### L 100.0100, L500.2500 #### [facility] [address] [place], [address] Eosinophils/100 WBC (Bld) 3.6 % Normal 0-5 [facility] Comment on above: Performed By: #### L 100.0100, L500.2500 #### [facility] [address] [place], [address] Erythrocyte distribution width (RBC) [Ratio] 12.8 % Normal 11.6-14.6 [facility] Comment on above: Performed By: #### L 100.0100, L500.2500 #### [facility] [address] [place], [address] Hematocrit (Bld) [Volume fraction] 37.0 % Low 40-54 [facility] Comment on above: Performed By: #### L 100.0100, L500.2500 #### [facility] [address] [place], [address] Hemoglobin (Bld) [Mass/Vol] 12.6 g/dL Low 13.0-16.5 [facility] Comment on above: Performed By: #### L 100.0100, L500.2500 #### [facility] [address] [place], [address] IG% 0.200 Normal 0.0-0.9 [facility] Comment on above: Result Comment: IG% - Immature Granulocytes (promyelocytes, myelocytes and metamyelocytes) > 1% indicates that a LEFT SHIFT is Present. Performed By: #### L 100.0100, L500.2500 #### [facility] [address] [place], [address] Lymphocytes/100 WBC (Bld) 28.6 % Normal 19-41 [facility] Comment on above: Performed By: #### L 100.0100, L500.2500 #### [facility] [address] [place], [address] MCH (RBC) [Entitic mass] 32.2 pg High 27.0-32.0 [facility] Comment on above: Performed By: #### L 100.0100, L500.2500 #### [facility] [address] [place], [address] MCHC (RBC) [Mass/Vol] 34.1 g/dL Normal 32-36 [facility] Comment on above: Performed By: #### L 100.0100, L500.2500 #### [facility] [address] [place], [address] MCV (RBC) [Entitic vol] 94.6 fL High 80-94 [facility] Comment on above: Performed By: #### L 100.0100, L500.2500 #### [facility] [address] [place], [address] Monocytes/100 WBC (Bld) 11.6 % High 0-10 [facility] Comment on above: Performed By: #### L 100.0100, L500.2500 #### [facility] [address] [place], [address] Neutrophils/100 WBC (Bld) 55.6 % Normal 47-70 [facility] Comment on above: Performed By: #### L 100.0100, L500.2500 #### [facility] [address] [place], [address] Nucleated RBC (Bld) [#/Vol] 0 10*3/uL Normal 0-5 [facility] Comment on above: Performed By: #### L 100.0100, L500.2500 #### [facility] [address] [place], [address] Platelet mean volume (Bld) [Entitic vol] 10.3 fL Normal 6.2-12.0 [facility] Comment on above: Performed By: #### L 100.0100, L500.2500 #### [facility] [address] [place], [address] Platelets (Bld) [#/Vol] 181 10*3/uL Normal 150-450 [facility] Comment on above: Performed By: #### L 100.0100, L500.2500 #### [facility] [address] [place], [address] RBC (Bld) [#/Vol] 3.91 10*6/uL Low 4.6-6.2 [facility] Comment on above: Performed By: #### L 100.0100, L500.2500 #### [facility] [address] [place], [address] RDW SD 44.1 fl High 35.1-43.9 [facility] Comment on above: Performed By: #### L 100.0100, L500.2500 #### [facility] [address] [place], [address] WBC (Bld) [#/Vol] 5.2 10*3/uL Normal 4.4-11.0 [facility] Comment on above: Performed By: #### L 100.0100, L500.2500 #### [facility] [address] [place], [address] Carbon dioxide, total [Moles /volume] in Central venous bloodOrdered By: Taylor Fast on 09-16-2024 CO2 [Moles/Vol] 27.9 mmol/L 21.0-32.0 [facility] Chloride assayOrdered By: De bra Fast on 09-16-2024 Chloride [Moles/Vol] 98 mmol/L 98-108 [facility] Metabolic Prof ilon 09-16-2024 Albumin [Mass/Vol] 4.0 g/dL Normal 3.4-4.8 [facility] Comment on above: Performed By: #### L 100.0100, L500.2500 #### [facility] [address] [place], [address] Albumin/Globulin [Mass ratio] 1.5 {ratio} Normal 0.9-2.4 [facility] Comment on above: Performed By: #### L 100.0100, L500.2500 #### [facility] [address] [place], [address] ALK PHOS 62 U/L Normal 40-129 [facility] Comment on above: Performed By: #### L 100.0100, L500.2500 #### [facility] [address] [place], [address] ALT [Catalytic activity/Vol] 12 U/L Normal <=46 [facility] Comment on above: Performed By: #### L 100.0100, L500.2500 #### [facility] [address] [place], [address] AST [Catalytic activity/Vol] 19 U/L Normal <=37 [facility] Comment on above: Performed By: #### L 100.0100, L500.2500 #### [facility] [address] [place], [address] Bilirubin [Mass/Vol] 0.45 mg/dL Normal 0.00-1.30 [facility] Comment on above: Performed By: #### L 100.0100, L500.2500 #### [facility] [address] [place], [address] BUN/CRE 42.9 RATIO High 10-20 [facility] Comment on above: Performed By: #### L 100.0100, L500.2500 #### [facility] [address] [place], [address] Calcium [Mass/Vol] 9.6 mg/dL Normal 7.6-11.0 [facility] Comment on above: Performed By: #### L 100.0100, L500.2500 #### [facility] [address] [place], [address] Chloride [Moles/Vol] 98 mmol/L Normal 98-108 [facility] Comment on above: Performed By: #### L 100.0100, L500.2500 #### [facility] [address] [place], [address] CO2 [Moles/Vol] 27.9 mmol/L Normal 21.0-32.0 [facility] Comment on above: Performed By: #### L 100.0100, L500.2500 #### [facility] [address] [place], [address] Creatinine [Mass/Vol] 0.37 mg/dL Low 0.70-1.20 [facility] Comment on above: Performed By: #### L 100.0100, L500.2500 #### [facility] [address] [place], [address] GAP 8 Normal 5-15 [facility] Comment on above: Performed By: #### L 100.0100, L500.2500 #### [facility] [address] [place], [address] GFR/1.73 sq M.predicted among non-blacks MDRD (S/P/Bld) [Vol rate/Area] 109 mL/min/{1.73_m2} Normal >60 [facility] Comment on above: Result Comment: mL/m in/1.73m2 CKD-EPI Creatinine Equation (2020) Performed By: #### L 100.0100, L500.2500 #### [facility] [address] [place], [address] Globulin (S) [Mass/Vol] 2.7 g/dL Normal 2.2-4.2 [facility] Comment on above: Performed By: #### L 100.0100, L500.2500 #### [facility] [address] [place] [place], [address] Glucose [Mass/Vol] 91 mg/dL Normal 70-99 [facility] Comment on above: Performed By: #### L 100.0100, L500.2500 #### [facility] [address] [place], [address] Potassium [Moles/Vol] 4.5 mmol/L Normal 3.3-5.1 [facility] Comment on above: Performed By: #### L 100.0100, L500.2500 #### [facility] [address] [place], [address] Sodium [Moles/Vol] 134 mmol/L Normal 133-145 [facility] Comment on above: Performed By: #### L 100.0100, L500.2500 #### [facility] [address] [place], [address] T PROT 6.7 g/dL Normal 5.9-8.4 [facility] Comment on above: Performed By: #### L 100.0100, L500.2500 #### [facility] [address] [place], [address] Urea nitrogen [Mass/Vol] 16 mg/dL Normal 4-19 [facility] Comment on above: Performed By: #### L 100.0100, L500.2500 #### [facility] [address] [place], [address] Eosinophil percentageOrdered By: Taylor Fast on 09-16-2024 Eosinophils/100 WBC (Bld) 3.6 % 0-5 [facility] Erythrocyte distribution wid th ratioOrdered By: Taylor Fast on 09-16-2024 Erythrocyte distribution width (RBC) [Ratio] 12.8 % 11.6-14.6 [facility] Erythrocyte distribution wid th standard deviationOrdered By: Taylor Fast on 09-16-2024 Erythrocyte distribution width (RBC) [Ratio] 44.1 fl High 35.1-43.9 [facility] Glomerular filtration rate ( GFR) estimation/1.73 sq m using serum, plasma, or whole bOrdered By: Taylor Fast on 09-16-2024 GFR/1.73 sq M.predicted among non-blacks MDRD (S/P/Bld) [Vol rate/Area] 109 mL/min/{1.73_m2} >60 [facility] Comment on above: mL/min/1.73m2 CKD-EP I Creatinine Equation (2020) Hematocrit Auto (Bld) [Volum e fraction]Ordered By: Taylor Fast on 09-16-2024 Hematocrit (Bld) [Volume fraction] 37.0 % Low 40-54 [facility] Hemoglobin A1con 09-16-2024 HbA1c (Bld) [Mass fraction] 5.1 % Normal <=5.6 [facility] Comment on above: Result Comment: Norm al < 5.7 % Prediabetic 5.7 - 6.4 % Diabetic >or= 6.5 % Please note range changes. Performed By: #### L 506.1001, L500.4050, L501.4320, L501.9985, L100.0100 #### [facility] [address] [place], [address] Hemoglobin A1c percentageOrd ered By: on 09-16-2024 HbA1c (Bld) [Mass fraction] 5.1 % <5.7 [facility] Comment on above: Normal < 5.7 % Predi abetic 5.7 - 6.4 % Diabetic >or= 6.5 % Please note range changes. Hemoglobin measurementOrdere d By: 09-16-2024 Hemoglobin (Bld) [Mass/Vol] 12.6 g/dL Low 13.0-16.5 [facility] Immature granulocytes/100 WB C Auto (Bld)Ordered By: 09-16-2024 Immature granulocytes/100 WBC (Bld) 0.200 % 0.0-0.9 [facility] Comment on above: IG% - Immature Granu locytes (promyelocytes, myelocytes and metamyelocytes) > 1% indicates that a LEFT SHIFT is Present. Laboratory - Chemistry and C hemistry - challengeOrdered By: 09-16-2024 AST [Catalytic activity/Vol] 19 U/L <38 [facility] MCV (mean corpuscular volume ) determinationOrdered By: 09-16-2024 MCV (RBC) [Entitic vol] 94.6 fL High 80-94 [facility] Mean corpuscular hemoglobin (MCH) determinationOrdered By: 09-16-2024 MCH (RBC) [Entitic mass] 32.2 pg High 27.0-32.0 [facility] Mean corpuscular hemoglobin concentration (MCHC) determinationOrdered By: 09-16-2024 MCHC (RBC) [Mass/Vol] 34.1 g/dL 32-36 [facility] Mean platelet volume determi nationOrdered By: Taylor 09-16-2024 Platelet mean volume (Bld) [Entitic vol] 10.3 fL 6.2-12.0 [facility] Monocyte percentageOrdered B y: on 09-16-2024 Monocytes/100 WBC (Bld) 11.6 % High 0-10 [facility] Neutrophil percentageOrdered By: Taylor Fast on 09-16-2024 Neutrophils/100 WBC (Bld) 55.6 % 47-70 [facility] Nucleated red blood cell per centageOrdered By: on 09-16-2024 Nucleated RBC/100 WBC (Bld) [Ratio] 0 % 0-5 [facility] Platelet countOrdered By: Modi on 09-16-2024 Platelets (Bld) [#/Vol] 181 10*3/uL 150-450 [facility] Potassium measurement (mass/ volume)Ordered By: on 09-16-2024 Potassium (Unsp spec) [Mass/Vol] 4.5 mmol/L 3.3-5.1 [facility] RBC Auto (Bld) [#/Vol]Ordere d By: on 09-16-2024 RBC (Bld) [#/Vol] 3.91 10*6/uL Low 4.6-6.2 [facility] Serum creatinine measurement (mass/volume)Ordered By: on 09-16-2024 Creatinine [Mass/Vol] 0.37 mg/dL Low 0.70-1.20 [facility] Serum globulin measurementOr dered By: on 09-16-2024 Globulin (S) [Mass/Vol] 2.7 g/dL 2.2-4.2 [facility] Serum glucose measurement (m ass/volume)Ordered By: on 09-16-2024 Glucose [Mass/Vol] 91 mg/dL 70-99 [facility] Serum or plasma alanine kumar otransferase (ALT) measurementOrdered By: on 09-16-2024 ALT [Catalytic activity/Vol] 12 U/L <47 [facility] Serum or plasma albumin marialuisa urement (mass/volume)Ordered By: Taylor Fast on 09-16-2024 Albumin [Mass/Vol] 4.0 g/dL 3.4-4.8 [facility] Serum or plasma albumin/glob ulin mass ratioOrdered By: Taylor on 09-16-2024 Albumin/Globulin [Mass ratio] 1.5 {ratio} 0.9-2.4 [facility] Serum or plasma alkaline gilberto sphatase measurementOrdered By: on 09-16-2024 ALP [Catalytic activity/Vol] 62 U/L 40-129 [facility] Serum or plasma calcium marialuisa urement (mass/volume)Ordered By: on 09-16-2024 Calcium [Mass/Vol] 9.6 mg/dL 7.6-11.0 [facility] Serum or plasma urea nitroge n measurement (mass/volume)Ordered By: on 09-16-2024 Urea nitrogen [Mass/Vol] 16 mg/dL 4-19 [facility] Sodium levelOrdered By: on 09-16-2024 Sodium [Moles/Vol] 134 mmol/L 133-145 [facility] TSH DL <= 0.005 mIU/L QnOrde red By: on 09-16-2024 TSH Qn 4.040 uIU/mL 0.300-4.20 0 [facility] Thyroid Stim Hormone (TSH)on 09-16-2024 TSH 4.040 uIU/mL Normal 0.300-4.20 0 [facility] Comment on above: Performed By: #### L 506.1001, L500.4050, L501.9520, L501.9985, L100.0100 #### [facility] [address] [place], [place] [address], [id number] Total proteinOrdered By: on 09-16-2024 Protein [Mass/Vol] 6.7 g/dL 5.9-8.4 [facility] Vitamin D,25 Hydroxyon 09-16 Vitamin D 25-OH 52.3 ng/mL Normal 30-100 [facility] Comment on above: Result Comment: Christen min D Status Deficiency: <20 ng/mL (50nmol/L) Insufficiency: 20-30 ng/mL (50-75 nmol/L) Sufficiency: 30-100 ng/mL (75-250 nmol/L) Toxicity: >100 ng/mL (>250 nmol/L) Performed By: #### L 506.1001, L500.4050, L501.9520, L501.9985, L100.0100 #### [facility] [address] [place], [address] White blood cell (WBC) count Ordered By: Taylor on 09-16-2024 WBC (Bld) [#/Vol] 5.2 10*3/uL 4.4-11.0 [facility] Absolute lymphocyte countOrd ered By: Taylor Fast on 06-19-2024 Lymphocytes Auto (Unsp spec) [#/Vol] 1.41 10*3/uL 0.83-4.51 [facility] Absolute neutrophil countOrd ered By: Taylor on 06-19-2024 Neutrophils (Bld) [#/Vol] 1.6 10*3/uL Low 2.0-7.7 [facility] Albumin to globulin ratioOrd ered By: Taylor Fast on 06-19-2024 Albumin/Globulin [Mass ratio] 1.1 {ratio} 0.9-2.4 [facility] Automated lymphocyte count a s percentage of total leukocytesOrdered By: Taylor on 06-19-2024 Lymphocytes/100 WBC Auto (Unsp spec) 36.2 % 19-41 [facility] Basophil percentageOrdered B y: Taylor on 06-19-2024 Basophils/100 WBC (Bld) 0.5 % 0-1 [facility] Bilirubin, totalOrdered By: [facility] on 06-19-2024 Bilirubin [Mass/Vol] 0.70 mg/dL 0.20-1.00 [facility] Comment on above: For patients on eltr ombopag therapy, use of Dimension [place] TBIL is not recommended. Blood urea nitrogen (BUN)/cr eatinine ratioOrdered By: Taylor on 06-19-2024 Urea nitrogen/Creatinine [Mass ratio] 41.3 mg/mg High 10-20 [facility] CBC W/Diff, Automatedon 06-07 Absolute Lymph 1.41 X10 3/uL Normal 0.83-4.51 [facility] Comment on above: Performed By: #### L 100.0100, L500.2500 #### [facility] [address] [place], [address] Absolute Neut 1.6 X10 3/uL Low 2.0-7.7 [facility] Comment on above: Performed By: #### L 100.0100, L500.2500 #### [facility] [address] [place], [address] Basophils/100 WBC (Bld) 0.5 % Normal 0-1 [facility] Comment on above: Performed By: #### L 100.0100, L500.2500 #### [facility] [address] [place], [address] Eosinophils/100 WBC (Bld) 5.9 % High 0-5 [facility] Comment on above: Performed By: #### L 100.0100, L500.2500 #### [facility] [address] [place], [address] Erythrocyte distribution width (RBC) [Ratio] 13.0 % Normal 11.6-14.6 [facility] Comment on above: Performed By: #### L 100.0100, L500.2500 #### [facility] [address] [place], [address] Hematocrit (Bld) [Volume fraction] 35.6 % Low 40-54 [facility] Comment on above: Performed By: #### L 100.0100, L500.2500 #### [facility] [address] [place], [address] Hemoglobin (Bld) [Mass/Vol] 12.1 g/dL Low 13.0-16.5 [facility] Comment on above: Performed By: #### L 100.0100, L500.2500 #### [facility] [address] [place], [address] IG% 0.300 Normal 0.0-0.9 [facility] Comment on above: Result Comment: IG% - Immature Granulocytes (promyelocytes, myelocytes and metamyelocytes) > 1% indicates that a LEFT SHIFT is Present. Performed By: #### L 100.0100, L500.2500 #### [facility] [address] [place], [address] Lymphocytes/100 WBC (Bld) 36.2 % Normal 19-41 [facility] Comment on above: Performed By: #### L 100.0100, L500.2500 #### [facility] [address] [place], [address] MCH (RBC) [Entitic mass] 31.2 pg Normal 27.0-32.0 [facility] Comment on above: Performed By: #### L 100.0100, L500.2500 #### [facility] [address] [place], [address] MCHC (RBC) [Mass/Vol] 34.0 g/dL Normal 32-36 [facility] Comment on above: Performed By: #### L 100.0100, L500.2500 #### [facility] [address] [place], [address] MCV (RBC) [Entitic vol] 91.8 fL Normal 80-94 [facility] Comment on above: Performed By: #### L 100.0100, L500.2500 #### [facility] [address] [place], [address] Monocytes/100 WBC (Bld) 15.6 % High 0-10 [facility] Comment on above: Performed By: #### L 100.0100, L500.2500 #### [facility] [address] [place], [address] Neutrophils/100 WBC (Bld) 41.5 % Low 47-70 [facility] Comment on above: Performed By: #### L 100.0100, L500.2500 #### [facility] [address] [place], [address] Nucleated RBC (Bld) [#/Vol] 0 10*3/uL Normal 0-5 [facility] Comment on above: Performed By: #### L 100.0100, L500.2500 #### [facility] [address] [place], [address] Platelet mean volume (Bld) [Entitic vol] 10.3 fL Normal 6.2-12.0 [facility] Comment on above: Performed By: #### L 100.0100, L500.2500 #### [facility] [address] [place], [address] Platelets (Bld) [#/Vol] 176 10*3/uL Normal 150-450 [facility] Comment on above: Performed By: #### L 100.0100, L500.2500 #### [facility] [address] [place], [address] RBC (Bld) [#/Vol] 3.88 10*6/uL Low 4.6-6.2 [facility] Comment on above: Performed By: #### L 100.0100, L500.2500 #### [facility] [address] [place], [address] RDW SD 43.3 fl Normal 35.1-43.9 [facility] Comment on above: Performed By: #### L 100.0100, L500.2500 #### [facility] [address] [place], [address] WBC (Bld) [#/Vol] 3.9 10*3/uL Low 4.4-11.0 [facility] Comment on above: Performed By: #### L 100.0100, L500.2500 #### [facility] [address] [place], [address] Carbon dioxide measurementOr dered By: Taylor Fast on 06-19-2024 CO2 [Moles/Vol] 29.0 mmol/L 21.0-32.0 [facility] Chloride measurementOrdered By: Taylor Fast on 06-19-2024 Chloride [Moles/Vol] 100 mmol/L 98-107 [facility] Metabolic Prof ilon 06-19-2024 Albumin [Mass/Vol] 3.5 g/dL Normal 3.2-5.0 [facility] Comment on above: Performed By: #### L 100.0100, L500.2500 #### [facility] [address] [place], [address] Albumin/Globulin [Mass ratio] 1.1 {ratio} Normal 0.9-2.4 [facility] Comment on above: Performed By: #### L 100.0100, L500.2500 #### [facility] [address] [place], [address] ALK P 57 U/L Normal 45-117 [facility] Comment on above: Performed By: #### L 100.0100, L500.2500 #### [facility] [address] [place], [address] ALT [Catalytic activity/Vol] 18 U/L Normal 16-61 [facility] Comment on above: Performed By: #### L 100.0100, L500.2500 #### [facility] [address] [place], [address] AST [Catalytic activity/Vol] 17 U/L Normal 15-37 [facility] Comment on above: Performed By: #### L 100.0100, L500.2500 #### [facility] [address] [place], [address] Bilirubin [Mass/Vol] 0.70 mg/dL Normal 0.20-1.00 [facility] Comment on above: Result Comment: For patients on eltrombopag therapy, use of Dimension [place] TBIL is not recommended. Performed By: #### L 100.0100, L500.2500 #### [facility] [address] [place], [address] BUN/CRE 41.3 RATIO High 10-20 [facility] Comment on above: Performed By: #### L 100.0100, L500.2500 #### [facility] [address] [place], [address] CA,Total 9.1 mg/dL Normal 8.5-10.1 [facility] Comment on above: Performed By: #### L 100.0100, L500.2500 #### [facility] [address] [place], [address] Chloride [Moles/Vol] 100 mmol/L Normal 98-107 [facility] Comment on above: Performed By: #### L 100.0100, L500.2500 #### [facility] [address] [place], [address] CO2 [Moles/Vol] 29.0 mmol/L Normal 21.0-32.0 [facility] Comment on above: Performed By: #### L 100.0100, L500.2500 #### [facility] [address] [place], [address] Creatinine [Mass/Vol] 0.39 mg/dL Low 0.70-1.30 [facility] Comment on above: Result Comment: The validity of the calculated GFR GFRAA in patients over 70 years has not been determined. Clinical correlation is essential. Performed By: #### L 100.0100, L500.2500 #### [facility] [address] [place], [address] EST GFR - AA 273 mL/min Normal >60 [facility] Comment on above: Result Comment: Afri can [place] GFR Calc Performed By: #### L 100.0100, L500.2500 #### [facility] [address] [place], [address] GAP 4 Low 5-15 [facility] Comment on above: Performed By: #### L 100.0100, L500.2500 #### [facility] [address] [place], [address] GFR/1.73 sq M.predicted among non-blacks MDRD (S/P/Bld) [Vol rate/Area] 225 mL/min/{1.73_m2} Normal >60 [facility] Comment on above: Result Comment: Non- GFR Calc Performed By: #### L 100.0100, L500.2500 #### [facility] [address] [place], [address] Globulin (S) [Mass/Vol] 3.3 g/dL Normal 2.2-4.2 [facility] Comment on above: Performed By: #### L 100.0100, L500.2500 #### [facility] [address] [place], [address] Glucose [Mass/Vol] 90 mg/dL Normal 74-106 [facility] Comment on above: Performed By: #### L 100.0100, L500.2500 #### [facility] [address] [place], [address] Potassium [Moles/Vol] 4.6 mmol/L Normal 3.5-5.1 [facility] Comment on above: Performed By: #### L 100.0100, L500.2500 #### [facility] [address] [place], [address] Sodium [Moles/Vol] 133 mmol/L Low 136-145 [facility] Comment on above: Performed By: #### L 100.0100, L500.2500 #### [facility] [address] [place], [address] T PROT 6.8 g/dL Normal 6.4-8.2 [facility] Comment on above: Performed By: #### L 100.0100, L500.2500 #### [facility] [address] [place], [place], [id number] Urea nitrogen [Mass/Vol] 16 mg/dL Normal 7-18 [facility] Comment on above: Performed By: #### L 100.0100, L500.2500 #### [facility] [address] [place], [place], [address] Eosinophil percentageOrdered By: Taylor Fast on 06-19-2024 Eosinophils/100 WBC (Bld) 5.9 % High 0-5 [facility] Erythrocyte distribution wid th ratioOrdered By: Taylor Fast on 06-19-2024 Erythrocyte distribution width (RBC) [Ratio] 13.0 % 11.6-14.6 [facility] Erythrocyte distribution wid th standard deviationOrdered By: Taylor Fast on 06-19-2024 Erythrocyte distribution width (RBC) [Ratio] 43.3 fl 35.1-43.9 [facility] Glomerular filtration rate ( GFR) estimationOrdered By: Taylor Fast on 06-19-2024 GFR/1.73 sq M.predicted among non-blacks MDRD (S/P/Bld) [Vol rate/Area] 225 mL/min/{1.73_m2} >60 [facility] Comment on above: Non- GFR Calc Glucose measurementOrdered B y: Taylor Fast on 06-19-2024 Glucose [Mass/Vol] 90 mg/dL 74-106 [facility] Hematocrit Auto (Bld) [Volum e fraction]Ordered By: Taylor Fast on 06-19-2024 Hematocrit (Bld) [Volume fraction] 35.6 % Low 40-54 [facility] Hemoglobin A1con 06-19-2024 HbA1c (Bld) [Mass fraction] 5.2 % Normal 3.8-5.6 [facility] Comment on above: Result Comment: Norm al < 5.7 % Prediabetic 5.7 - 6.4 % Diabetic >or= 6.5 % Please note range changes. Performed By: #### L 100.0100, L500.2500 #### [facility] [address] [place], [address] Hemoglobin A1c percentageOrd ered By: Taylor on 06-19-2024 HbA1c (Bld) [Mass fraction] 5.2 % 3.8-5.6 [facility] Comment on above: Normal < 5.7 % Predi abetic 5.7 - 6.4 % Diabetic >or= 6.5 % Please note range changes. Hemoglobin measurementOrdere d By: on 06-19-2024 Hemoglobin (Bld) [Mass/Vol] 12.1 g/dL Low 13.0-16.5 [facility] Immature granulocytes/100 WB C Auto (Bld)Ordered By: Taylor on 06-19-2024 Immature granulocytes/100 WBC (Bld) 0.300 % 0.0-0.9 [facility] Comment on above: IG% - Immature Granu locytes (promyelocytes, myelocytes and metamyelocytes) > 1% indicates that a LEFT SHIFT is Present. Laboratory - Chemistry and C hemistry - challengeOrdered By: on 06-19-2024 AST [Catalytic activity/Vol] 17 U/L 15-37 [facility] MCV (mean corpuscular volume ) determinationOrdered By: Taylor 06-19-2024 MCV (RBC) [Entitic vol] 91.8 fL 80-94 [facility] Mean corpuscular hemoglobin (MCH) determinationOrdered By: Taylor 06-19-2024 MCH (RBC) [Entitic mass] 31.2 pg 27.0-32.0 [facility] Mean corpuscular hemoglobin concentration (MCHC) determinationOrdered By: Taylor 06-19-2024 MCHC (RBC) [Mass/Vol] 34.0 g/dL 32-36 [facility] Mean platelet volume determi nationOrdered By: Taylor on 06-19-2024 Platelet mean volume (Bld) [Entitic vol] 10.3 fL 6.2-12.0 [facility] Monocyte percentageOrdered B y: Taylor on 06-19-2024 Monocytes/100 WBC (Bld) 15.6 % High 0-10 [facility] Neutrophil percentageOrdered By: on 06-19-2024 Neutrophils/100 WBC (Bld) 41.5 % Low 47-70 [facility] Nucleated red blood cell per centageOrdered By: on 06-19-2024 Nucleated RBC/100 WBC (Bld) [Ratio] 0 % 0-5 [facility] Platelet countOrdered By: De armando on 06-19-2024 Platelets (Bld) [#/Vol] 176 10*3/uL 150-450 [facility] Potassium measurementOrdered By: on 06-19-2024 Potassium [Moles/Vol] 4.6 mmol/L 3.5-5.1 [facility] RBC Auto (Bld) [#/Vol]Ordere d By: on 06-19-2024 RBC (Bld) [#/Vol] 3.88 10*6/uL Low 4.6-6.2 [facility] Serum anion gap measurementO rdered By: on 06-19-2024 Anion gap [Moles/Vol] 4 mmol/L Low 5-15 [facility] Serum globulin measurementOr dered By: on 06-19-2024 Globulin (S) [Mass/Vol] 3.3 g/dL 2.2-4.2 [facility] Serum or plasma alanine kumar otransferase (ALT) measurementOrdered By: on 06-19-2024 ALT [Catalytic activity/Vol] 18 U/L 16-61 [facility] Serum or plasma albumin marialuisa urement (mass/volume)Ordered By: on 06-19-2024 Albumin [Mass/Vol] 3.5 g/dL 3.2-5.0 [facility] Serum or plasma alkaline gilberto sphatase measurementOrdered By: 06-19-2024 ALP [Catalytic activity/Vol] 57 U/L 45-117 [facility] Serum or plasma calcium marialuisa urement (mass/volume)Ordered By: on 06-19-2024 Calcium [Mass/Vol] 9.1 mg/dL 8.5-10.1 [facility] Serum or plasma creatinine m easurement (mass/volume)Ordered By: Taylor on 06-19-2024 Creatinine [Mass/Vol] 0.39 mg/dL Low 0.70-1.30 [facility] Comment on above: The validity of the calculated GFR & GFRAA in patients over 70 years has not been determined. Clinical correlation is essential. Serum or plasma thyroid stim ulating hormone (TSH) measurement (units/volume)Ordered By: Taylor Fast on 06-19-2024 TSH Qn 3.230 uIU/mL 0.358-3.74 0 [facility] Serum or plasma urea nitroge n measurement (mass/volume)Ordered By: Taylor on 06-19-2024 Urea nitrogen [Mass/Vol] 16 mg/dL 7-18 [facility] Sodium levelOrdered By: on 06-19-2024 Sodium [Moles/Vol] 133 mmol/L Low 136-145 [facility] Thyroid Stim Hormone (TSH)on 06-19-2024 TSH 3.230 uIU/mL Normal 0.358-3.74 0 [facility] Comment on above: Performed By: #### L 100.0100, L500.2500 #### [facility] [address] [place], [place], [id number] Total proteinOrdered By: Lyla greene on 06-19-2024 Protein [Mass/Vol] 6.8 g/dL 6.4-8.2 [facility] Vitamin D,25 Hydroxyon 06-19 Vitamin D 25-OH 57.9 ng/mL Normal [facility] Comment on above: Result Comment: Christen min D 25(OH) Status Range Deficiency <20 ng/mL (50nmol/L) Insufficiency 20 - 30 ng/mL (50 - 75 nmol/L) Sufficiency 30 - 100 ng/mL (75 - 250 nmol/L) Toxicity >100 ng/mL (>250 nmol/L) Performed By: #### L 100.0100, L500.2500 #### [facility] [address] [place], [address] White blood cell (WBC) count Ordered By: Taylor Fast on 06-19-2024 WBC (Bld) [#/Vol] 3.9 10*3/uL Low 4.4-11.0 [facility] Absolute lymphocyte countOrd ered By: Taylor Fast on 07-27-2023 Lymphocytes Auto (Unsp spec) [#/Vol] 1.36 10*3/uL 0.83-4.51 [facility] Automated lymphocyte count a s percentage of total leukocytesOrdered By: Taylor Fast on 07-27-2023 Lymphocytes/100 WBC Auto (Unsp spec) 30.2 % 19-41 [facility] Basophil percentageOrdered B y: Taylor Fast on 07-27-2023 Basophils/100 WBC (Bld) 0.9 % 0-1 [facility] Bilirubin [Mass/Vol] 0.50 mg/dL 0.20-1.00 [facility] Comment on above: For patients on eltr ombopag therapy, use of Dimension [place] TBIL is not recommended. Chloride [Moles/Vol] 99 mmol/L 98-107 [facility] Eosinophils/100 WBC (Bld) 6.2 % 0-5 [facility] Glucose [Mass/Vol] 134 mg/dL 74-106 [facility] Comment on above: Fasting Glucose resu lt greater than or equal to 126 mg/dL suggests DIABETES MELLITUS per A.D.A. criteria. Hemoglobin (Bld) [Mass/Vol] 13.5 g/dL 13.0-16.5 [facility] Monocytes/100 WBC (Bld) 14.9 % 0-10 [facility] Neutrophils (Bld) [#/Vol] 2.2 10*3/uL 2.0-7.7 [facility] Neutrophils/100 WBC (Bld) 47.6 % 47-70 [facility] Potassium [Moles/Vol] 4.7 mmol/L 3.5-5.1 [facility] Protein [Mass/Vol] 7.4 g/dL 6.4-8.2 [facility] Sodium [Moles/Vol] 134 mmol/L 136-145 [facility] WBC (Bld) [#/Vol] 4.5 10*3/uL 4.4-11.0 [facility] Determination of erythrocyte mean corpuscular volume (MCV)Ordered By: [facility] on 07-27-2023 MCV (RBC) [Entitic vol] 94.6 fL 80-94 [facility] Erythrocyte distribution wid th ratioOrdered By: [facility] on 07-27-2023 Erythrocyte distribution width (RBC) [Ratio] 12.2 % 11.6-14.6 [facility] Erythrocyte distribution wid th standard deviationOrdered By: [facility] on 07-27-2023 Erythrocyte distribution width (RBC) [Entitic vol] 42.5 fL 35.1-43.9 [facility] Hematocrit Auto (Bld) [Volum e fraction]Ordered By: [facility] on 07-27-2023 Hematocrit (Bld) [Volume fraction] 41.7 % 40-54 [facility] Immature granulocytes/100 WB C Auto (Bld)Ordered By: [facility] on 07-27-2023 Immature granulocytes/100 WBC (Bld) 0.200 % 0.0-0.9 [facility] Comment on above: IG% - Immature Granu locytes (promyelocytes, myelocytes and metamyelocytes) > 1% indicates that a LEFT SHIFT is Present. Laboratory - Chemistry and C hemistry - challengeOrdered By: [facility] on 07-27-2023 Albumin/Globulin [Mass ratio] 0.9 {ratio} 0.9-2.4 [facility] ALP [Catalytic activity/Vol] 64 U/L 45-117 [facility] ALT [Catalytic activity/Vol] 18 U/L 16-61 [facility] CO2 [Moles/Vol] 30.0 mmol/L 21.0-32.0 [facility] Cobalamin (Vitamin B12) [Mass/Vol] 1966 pg/mL 211-911 [facility] Globulin (S) [Mass/Vol] 3.8 g/dL 2.2-4.2 [facility] Urea nitrogen/Creatinine [Mass ratio] 25.6 mg/mg 10-20 [facility] Laboratory - Hematology and Cell countsOrdered By: [facility] on 07-27-2023 MCH (RBC) [Entitic mass] 30.6 pg 27.0-32.0 [facility] MCHC (RBC) [Mass/Vol] 32.4 g/dL 32-36 [facility] Nucleated RBC/100 WBC (Bld) [Ratio] 0 % 0-5 [facility] Platelet mean volume (Bld) [Entitic vol] 10.1 fL 6.2-12.0 [facility] Platelets (Bld) [#/Vol] 222 10*3/uL 150-450 [facility] No Panel InformationOrdered By: Taylor Fast on 07-27-2023 Estimated GFR (MDRD) Amer 243 mL/min >60 [facility] Comment on above: GFR Calc Estimated GFR (MDRD) Non-Af Amer 201 mL/min >60 [facility] Comment on above: Non- GFR Calc Folate 32.10 ng/mL 3.1-55.4 [facility] Vitamin D 25-Hydroxy 76.3 ng/mL [facility] Comment on above: Vitamin D 25(OH) Sta tus Range Deficiency <20 ng/mL (50nmol/L) Insufficiency 20 - 30 ng/mL (50 - 75 nmol/L) Sufficiency 30 - 100 ng/mL (75 - 250 nmol/L) Toxicity >100 ng/mL (>250 nmol/L) RBC Auto (Bld) [#/Vol]Ordere d By: Taylor Fast on 07-27-2023 RBC (Bld) [#/Vol] 4.41 10*6/uL 4.6-6.2 [facility] Serum or plasma calcium marialuisa urement (mass/volume)Ordered By: Taylor Fast on 07-27-2023 Calcium [Mass/Vol] 9.6 mg/dL 8.5-10.1 [facility] Serum or plasma creatinine m easurement (mass/volume)Ordered By: Taylor Fast on 07-27-2023 Creatinine [Mass/Vol] 0.43 mg/dL 0.70-1.30 [facility] Comment on above: The validity of the calculated GFR & GFRAA in patients over 70 years has not been determined. Clinical correlation is essential. Serum or plasma urea nitroge n measurement (mass/volume)Ordered By: Taylor Fast on 07-27-2023 Urea nitrogen [Mass/Vol] 11 mg/dL 7-18 [facility] Thin prep Papanicolaou smear with manual screeningOrdered By: Taylor Fast on 07-27-2023 Thin prep Papanicolaou smear with manual screening 3.6 g/dL 3.2-5.0 [facility] Thin prep Papanicolaou smear with manual screening 22 U/L 15-37 [facility] Thin prep Papanicolaou smear with manual screening 5 5-15 [facility] Whole blood hemoglobin A1c/t otal hemoglobin ratio (mass fraction)Ordered By: Taylor on 07-27-2023 HbA1c (Bld) [Mass fraction] 5.1 % 3.8-5.6 [facility] Comment on above: Normal < 5.7 % Predi abetic 5.7 - 6.4 % Diabetic >or= 6.5 % Please note range changes. Basophil percentageOrdered B y: Talyor on 04-18-2023 Bilirubin [Mass/Vol] 0.60 mg/dL 0.20-1.00 [facility] Comment on above: For patients on eltr ombopag therapy, use of Dimension [place] TBIL is not recommended. Chloride [Moles/Vol] 103 mmol/L 98-107 [facility] Glucose [Mass/Vol] 94 mg/dL 74-106 [facility] Potassium [Moles/Vol] 4.6 mmol/L 3.5-5.1 [facility] Protein [Mass/Vol] 7.1 g/dL 6.4-8.2 [facility] Sodium [Moles/Vol] 137 mmol/L 136-145 [facility] Laboratory - Chemistry and C hemistry - challengeOrdered By: [facility] on 04-18-2023 ALP [Catalytic activity/Vol] 59 U/L 45-117 [facility] ALT [Catalytic activity/Vol] 18 U/L 16-61 [facility] CO2 [Moles/Vol] 28.0 mmol/L 21.0-32.0 [facility] Globulin (S) [Mass/Vol] 3.4 g/dL 2.2-4.2 [facility] Urea nitrogen/Creatinine [Mass ratio] 38.5 mg/mg 10-20 [facility] No Panel InformationOrdered By: [facility] on 04-18-2023 Estimated GFR (MDRD) Amer 271 mL/min >60 [facility] Comment on above: GFR Calc Estimated GFR (MDRD) Non-Af Amer 224 mL/min >60 [facility] Comment on above: Non- GFR Calc Vitamin D 25-Hydroxy 85.4 ng/mL [facility] Comment on above: Vitamin D 25(OH) Sta tus Range Deficiency <20 ng/mL (50nmol/L) Insufficiency 20 - 30 ng/mL (50 - 75 nmol/L) Sufficiency 30 - 100 ng/mL (75 - 250 nmol/L) Toxicity >100 ng/mL (>250 nmol/L) Serum or plasma albumin marialuisa urement (mass/volume)Ordered By: [facility] on 04-18-2023 Albumin [Mass/Vol] 3.7 g/dL 3.2-5.0 [facility] Serum or plasma albumin/glob ulin mass ratioOrdered By: [facility] on 04-18-2023 Albumin/Globulin [Mass ratio] 1.1 {ratio} 0.9-2.4 [facility] Serum or plasma calcium marialuisa urement (mass/volume)Ordered By: [facility] on 04-18-2023 Calcium [Mass/Vol] 9.2 mg/dL 8.5-10.1 [facility] Serum or plasma creatinine m easurement (mass/volume)Ordered By: [facility] 04-18-2023 Creatinine [Mass/Vol] 0.39 mg/dL 0.70-1.30 [facility] Comment on above: The validity of the calculated GFR & GFRAA in patients over 70 years has not been determined. Clinical correlation is essential. Serum or plasma urea nitroge n measurement (mass/volume)Ordered By: [facility] on 04-18-2023 Urea nitrogen [Mass/Vol] 15 mg/dL 7-18 [facility] Thin prep Papanicolaou smear with manual screeningOrdered By: [facility] 04-18-2023 Thin prep Papanicolaou smear with manual screening 18 U/L 15-37 [facility] Thin prep Papanicolaou smear with manual screening 6 5-15 [facility] Whole blood hemoglobin A1c/t otal hemoglobin ratio (mass fraction)Ordered By: [facility] 04-18-2023 HbA1c (Bld) [Mass fraction] 5.0 % 3.8-5.6 [facility] Comment on above: Normal < 5.7 % Predi abetic 5.7 - 6.4 % Diabetic >or= 6.5 % Please note range changes. Absolute lymphocyte countOrd ered By: Taylor on 03-15-2023 Lymphocytes Auto (Unsp spec) [#/Vol] 1.24 10*3/uL 0.83-4.51 [facility] Basophil percentageOrdered B y: on 03-15-2023 Basophils/100 WBC (Bld) 0.7 % 0-1 [facility] Bilirubin [Mass/Vol] 0.60 mg/dL 0.20-1.00 [facility] Comment on above: For patients on eltr ombopag therapy, use of Dim[place] TBIL is not recommended. Chloride [Moles/Vol] 102 mmol/L 98-107 [facility] Eosinophils/100 WBC (Bld) 2.9 % 0-5 [facility] Glucose [Mass/Vol] 115 mg/dL 74-106 [facility] Comment on above: Fasting Glucose resu lt from 100 to 125 mg/dL suggests IMPAIRED HOMEOSTASIS per A.D.A. criteria. Neutrophils (Bld) [#/Vol] 2.3 10*3/uL 2.0-7.7 [facility] Neutrophils/100 WBC (Bld) 54.5 % 47-70 [facility] Potassium [Moles/Vol] 4.4 mmol/L 3.5-5.1 [facility] Protein [Mass/Vol] 7.0 g/dL 6.4-8.2 [facility] Sodium [Moles/Vol] 135 mmol/L 136-145 [facility] WBC (Bld) [#/Vol] 4.2 10*3/uL 4.4-11.0 [facility] Blood erythrocytes count (nu mber/volume)Ordered By: Taylor on 03-15-2023 RBC (Bld) [#/Vol] 4.33 10*6/uL 4.6-6.2 [facility] Blood hemoglobin measurement (mass/volume)Ordered By: Taylor on 03-15-2023 Hemoglobin (Bld) [Mass/Vol] 13.6 g/dL 13.0-16.5 [facility] Blood lymphocytes/100 leukoc ytesOrdered By: [facility] on 03-15-2023 Lymphocytes/100 WBC (Bld) 29.7 % 19-41 [facility] Blood monocytes/100 leukocyt esOrdered By: [facility] on 03-15-2023 Monocytes/100 WBC (Bld) 11.7 % 0-10 [facility] Blood platelet mean volumeOr dered By: [facility] on 03-15-2023 Platelet mean volume (Bld) [Entitic vol] 10.7 fL 6.2-12.0 [facility] Determination of erythrocyte mean corpuscular volume (MCV)Ordered By: [facility] on 03-15-2023 MCV (RBC) [Entitic vol] 96.5 fL 80-94 [facility] Hematocrit Auto (Bld) [Volum e fraction]Ordered By: [facility] on 03-15-2023 Hematocrit (Bld) [Volume fraction] 41.8 % 40-54 [facility] Laboratory - Chemistry and C hemistry - challengeOrdered By: [facility] on 03-15-2023 ALP [Catalytic activity/Vol] 60 U/L 45-117 [facility] ALT [Catalytic activity/Vol] 18 U/L 16-61 [facility] CO2 [Moles/Vol] 32.0 mmol/L 21.0-32.0 [facility] Globulin (S) [Mass/Vol] 3.3 g/dL 2.2-4.2 [facility] Urea nitrogen/Creatinine [Mass ratio] 28.3 mg/mg 10-20 [facility] Laboratory - Hematology and Cell countsOrdered By: [facility] on 03-15-2023 Erythrocyte distribution width (RBC) [Entitic vol] 43.7 fL 35.1-43.9 [facility] Erythrocyte distribution width (RBC) [Ratio] 12.2 % 11.6-14.6 [facility] Immature granulocytes/100 WBC (Bld) 0.500 % 0.0-0.9 [facility] Comment on above: IG% - Immature Granu locytes (promyelocytes, myelocytes and metamyelocytes) > 1% indicates that a LEFT SHIFT is Present. MCH (RBC) [Entitic mass] 31.4 pg 27.0-32.0 [facility] Nucleated RBC/100 [facility]Bld) [facility]] 0 [facility] [Mass/Vol]Or dered By: Taylor on 03-15-2023 MCHC (RBC) [Mass/Vol] 32.5 g/dL 32-36 [facility] No Panel InformationOrdered By: Taylor on 03-15-2023 Estimated GFR (MDRD) Amer 246 mL/min >60 [facility] Comment on above: GFR Calc Estimated GFR (MDRD) Non-Af Amer 203 mL/min >60 [facility] Comment on above: Non- GFR Calc Vitamin D 25-Hydroxy 105.2 ng/mL [facility] Comment on above: Vitamin D 25(OH) [...] 03-15-2023 Platelets (Bld) [#/Vol] 190 10*3/uL 150-450 [facility] Serum or plasma albumin marialuisa urement (mass/volume)Ordered By: Taylor on 03-15-2023 Albumin [Mass/Vol] 3.7 g/dL 3.2-5.0 [facility] Serum or plasma albumin/glob ulin mass ratioOrdered By: Taylor on 03-15-2023 Albumin/Globulin [Mass ratio] 1.1 {ratio} 0.9-2.4 [facility] Serum or plasma calcium marialuisa urement (mass/volume)Ordered By: Taylor Fast on 03-15-2023 Calcium [Mass/Vol] 9.2 mg/dL 8.5-10.1 [facility] Serum or plasma creatinine m easurement (mass/volume)Ordered By: Taylor on 03-15-2023 Creatinine [Mass/Vol] 0.42 mg/dL 0.70-1.30 [facility] Comment on above: The validity of the calculated GFR & GFRAA in patients over 70 years has not been determined. Clinical correlation is essential. Serum or plasma urea nitroge n measurement (mass/volume)Ordered By: Taylor Fast on 03-15-2023 Urea nitrogen [Mass/Vol] 12 mg/dL 7-18 [facility] Thin prep Papanicolaou smear with manual screeningOrdered By: [facility] on 03-15-2023 Thin prep Papanicolaou smear with manual screening 14 U/L 15-37 [facility] Thin prep Papanicolaou smear with manual screening 1 5-15 [facility] Absolute lymphocyte countOrd ered By: Taylor on 01-03-2023 Lymphocytes Auto (Unsp spec) [#/Vol] 1.42 10*3/uL 0.83-4.51 [facility] Basophil percentageOrdered B y: Taylor on 01-03-2023 Basophils/100 WBC (Bld) 0.5 % 0-1 [facility] Bilirubin [Mass/Vol] 0.50 mg/dL 0.20-1.00 [facility] Comment on above: For patients on eltr ombopag therapy, use of Dimension [place] TBIL is not recommended. Chloride [Moles/Vol] 104 mmol/L 98-107 [facility] Eosinophils/100 WBC (Bld) 4.9 % 0-5 [facility] Glucose [Mass/Vol] 94 mg/dL 74-106 [facility] Neutrophils (Bld) [#/Vol] 1.7 10*3/uL 2.0-7.7 [facility] Neutrophils/100 WBC (Bld) 43.7 % 47-70 [facility] Potassium [Moles/Vol] 4.5 mmol/L 3.5-5.1 [facility] Protein [Mass/Vol] 7.0 g/dL 6.4-8.2 [facility] Sodium [Moles/Vol] 137 mmol/L 136-145 [facility] WBC (Bld) [#/Vol] 3.9 10*3/uL 4.4-11.0 [facility] Blood erythrocytes count (nu mber/volume)Ordered By: Taylor on 01-03-2023 RBC (Bld) [#/Vol] 4.21 10*6/uL 4.6-6.2 [facility] Blood hemoglobin measurement (mass/volume)Ordered By: Taylor on 01-03-2023 Hemoglobin (Bld) [Mass/Vol] 13.4 g/dL 13.0-16.5 [facility] Blood lymphocytes/100 leukoc ytesOrdered By: Taylor on 01-03-2023 Lymphocytes/100 WBC (Bld) 36.7 % 19-41 [facility] Blood monocytes/100 leukocyt esOrdered By: Taylor on 01-03-2023 Monocytes/100 WBC (Bld) 13.7 % 0-10 [facility] Blood platelet mean volumeOr dered By: Taylor on 01-03-2023 Platelet mean volume (Bld) [Entitic vol] 10.5 fL 6.2-12.0 [facility] Determination of erythrocyte mean corpuscular volume (MCV)Ordered By: Taylor on 01-03-2023 MCV (RBC) [Entitic vol] 96.2 fL 80-94 [facility] Hematocrit Auto (Bld) [Volum e fraction]Ordered By: Taylor on 01-03-2023 Hematocrit (Bld) [Volume fraction] 40.5 % 40-54 [facility] Laboratory - Chemistry and C hemistry - challengeOrdered By: [facility] on 01-03-2023 ALP [Catalytic activity/Vol] 122 U/L 45-117 [facility] ALT [Catalytic activity/Vol] 21 U/L 16-61 [facility] CO2 [Moles/Vol] 29.0 mmol/L 21.0-32.0 [facility] Globulin (S) [Mass/Vol] 3.4 g/dL 2.2-4.2 [facility] Urea nitrogen/Creatinine [Mass ratio] 39.3 mg/mg 10-20 [facility] - Hematology and Cell countsOrdered By: Taylor on 01-03-2023 Erythrocyte distribution width (RBC) [Entitic vol] 45.7 fL 35.1-43.9 [facility] Erythrocyte distribution width (RBC) [Ratio] 12.8 % 11.6-14.6 [facility] Immature granulocytes/100 WBC (Bld) 0.500 % 0.0-0.9 [facility] Comment on above: IG% - Immature Granu locytes (promyelocytes, myelocytes and metamyelocytes) > 1% indicates that a LEFT SHIFT is Present. MCH (RBC) [Entitic mass] 31.8 pg 27.0-32.0 [facility] Nucleated RBC/100 WBC (Bld) [Ratio] 0 % 0-5 [facility] MCHC Auto (RBC) [Mass/Vol]Or dered By: on 01-03-2023 MCHC (RBC) [Mass/Vol] 33.1 g/dL 32-36 [facility] No Panel InformationOrdered By: on 01-03-2023 Estimated GFR (MDRD) Amer 258 mL/min >60 [facility] Comment on above: GFR Calc Estimated GFR (MDRD) Non-Af Amer 213 mL/min >60 [facility] Comment on above: Non- GFR Calc Vitamin D 25-Hydroxy 96.1 ng/mL [facility] Comment on above: Vitamin D 25(OH) Sta tus Range Deficiency <20 ng/mL (50nmol/L) Insufficiency 20 - 30 ng/mL (50 - 75 nmol/L) Sufficiency 30 - 100 ng/mL (75 - 250 nmol/L) Toxicity >100 ng/mL (>250 nmol/L) Platelets bldOrdered By: Lyla ra Fast on 01-03-2023 Platelets (Bld) [#/Vol] 207 10*3/uL 150-450 [facility] Serum or plasma albumin marialuisa urement (mass/volume)Ordered By: Taylor Fast on 01-03-2023 Albumin [Mass/Vol] 3.6 g/dL 3.2-5.0 [facility] Serum or plasma albumin/glob ulin mass ratioOrdered By: Taylor Fast on 01-03-2023 Albumin/Globulin [Mass ratio] 1.1 {ratio} 0.9-2.4 [facility] Serum or plasma calcium marialuisa urement (mass/volume)Ordered By: Taylor Zuniga on 01-03-2023 Calcium [Mass/Vol] 9.2 mg/dL 8.5-10.1 [facility] Serum or plasma creatinine m easurement (mass/volume)Ordered By: Taylor Zuniga on 01-03-2023 Creatinine [Mass/Vol] 0.41 mg/dL 0.70-1.30 [facility] Comment on above: The validity of the calculated GFR & GFRAA in patients over 70 years has not been determined. Clinical correlation is essential. Serum or plasma urea nitroge n measurement (mass/volume)Ordered By: Taylor Zuniga on 01-03-2023 Urea nitrogen [Mass/Vol] 16 mg/dL 7-18 [facility] Thin prep Papanicolaou smear with manual screeningOrdered By: Taylor Zuniga on 01-03-2023 Thin prep Papanicolaou smear with manual screening 15 U/L 15-37 [facility] Thin prep Papanicolaou smear with manual screening 4 5-15 [facility] Whole blood hemoglobin A1c/t otal hemoglobin ratio (mass fraction)Ordered By: Taylor Zuniga on 01-03-2023 HbA1c (Bld) [Mass fraction] 5.0 % 3.8-5.6 [facility] Comment on above: Normal < 5.7 % Predi abetic 5.7 - 6.4 % Diabetic >or= 6.5 % Please note range changes. Absolute lymphocyte countOrd ered By: Dr. Zuniga on 09-13-2022 Lymphocytes Auto (Unsp spec) [#/Vol] 1.17 10*3/uL 0.83-4.51 [facility] Basophil percentageOrdered B y: Dr. Zuniga on 09-13-2022 Basophil percentage 0 SEEN /hpf 0-5 [facility] Basophils/100 WBC (Bld) 0.8 % 0-1 [facility] Bilirubin [Mass/Vol] 0.40 mg/dL 0.20-1.00 [facility] Comment on above: For patients on eltr ombopag therapy, use of Dimension [place] TBIL is not recommended. Chloride [Moles/Vol] 105 mmol/L 98-107 [facility] Cholesterol [Mass/Vol] 175 mg/dL <200 [facility] Comment on above: <200 mg/dL Desirable 200-240 mg/dL Borderline >240 mg/dL High Risk Eosinophils/100 WBC (Bld) 3.0 % 0-5 [facility] Glucose [Mass/Vol] 122 mg/dL 74-106 [facility] Comment on above: Fasting Glucose resu lt from 100 to 125 mg/dL suggests IMPAIRED HOMEOSTASIS per A.D.A. criteria. Neutrophils (Bld) [#/Vol] 2.9 10*3/uL 2.0-7.7 [facility] Neutrophils/100 WBC (Bld) 58.0 % 47-70 [facility] Potassium [Moles/Vol] 4.5 mmol/L 3.5-5.1 [facility] Protein [Mass/Vol] 7.4 g/dL 6.4-8.2 [facility] Sodium [Moles/Vol] 139 mmol/L 136-145 [facility] Triglyceride [Mass/Vol] 91 mg/dL <199 [facility] Comment on above: The drugs N-Acetylcy steine and Metamizole may falsely depress this assay.Serum Triglycerides Reference Interval Normal <150 mg/dL Borderline high 150 - 199 mg/dL High 200 - 499 mg/dL Very High > or = 500 mg/dL WBC (Bld) [#/Vol] 5.0 10*3/uL 4.4-11.0 [facility] Bilirubin Test strip Ql (U)O rdered By: Dr. Zuniga on 09-13-2022 Bilirubin Ql (U) Negative Negative [facility] Blood erythrocytes count (nu mber/volume)Ordered By: Dr. Zuniga on 09-13-2022 RBC (Bld) [#/Vol] 4.25 10*6/uL 4.6-6.2 [facility] Blood hemoglobin measurement (mass/volume)Ordered By: Dr. Zuniga on 09-13-2022 Hemoglobin (Bld) [Mass/Vol] 13.5 g/dL 13.0-16.5 [facility] Blood lymphocytes/100 leukoc ytesOrdered By: Dr. Zuniga on 05-10-2023 Lymphocytes/100 WBC (Bld) 23.5 % 19-41 [facility] Blood monocytes/100 leukocyt esOrdered By: Dr. Zuniga on 09-13-2022 Monocytes/100 WBC (Bld) 14.3 % 0-10 [facility] Blood platelet mean volumeOr dered By: Dr. Zuniga on 09-13-2022 Platelet mean volume (Bld) [Entitic vol] 11.4 fL 6.2-12.0 [facility] Determination of erythrocyte mean corpuscular volume (MCV)Ordered By: Dr. Zuniga on 09-13-2022 MCV (RBC) [Entitic vol] 97.9 fL 80-94 [facility] Hematocrit Auto (Bld) [Volum e fraction]Ordered By: Dr. Zuniga on 09-13-2022 Hematocrit (Bld) [Volume fraction] 41.6 % 40-54 [facility] Ketones Test strip Ql (U)Ord ered By: Dr. Zuniga on 09-13-2022 Ketones Ql (U) Negative Negative [facility] Laboratory - Chemistry and C hemistry - challengeOrdered By: Dr. Zuniga on 09-13-2022 ALP [Catalytic activity/Vol] 63 U/L 45-117 [facility] ALT [Catalytic activity/Vol] 26 U/L 16-61 [facility] CO2 [Moles/Vol] 29.0 mmol/L 21.0-32.0 [facility] Cobalamin (Vitamin B12) [Mass/Vol] 982 pg/mL 211-911 [facility] Globulin (S) [Mass/Vol] 3.6 g/dL 2.2-4.2 [facility] Natriuretic peptide B (Bld) [Mass/Vol] 20.3 pg/mL 0-100 [facility] Urea nitrogen/Creatinine [Mass ratio] 48.7 mg/mg 10-20 [facility] Laboratory - Hematology and Cell countsOrdered By: Dr. Zuniga on 09-13-2022 Erythrocyte distribution width (RBC) [Entitic vol] 46.2 fL 35.1-43.9 [facility] Erythrocyte distribution width (RBC) [Ratio] 12.9 % 11.6-14.6 [facility] Immature granulocytes/100 WBC (Bld) 0.400 % 0.0-0.9 [facility] Comment on above: IG% - Immature Granu locytes (promyelocytes, myelocytes and metamyelocytes) > 1% indicates that a LEFT SHIFT is Present. MCH (RBC) [Entitic mass] 31.8 pg 27.0-32.0 [facility] Nucleated RBC/100 WBC (Bld) [Ratio] 0 % 0-5 [facility] MCHC Auto (RBC) [Mass/Vol]Or dered By: Dr. Zuniga on 09-13-2022 MCHC (RBC) [Mass/Vol] 32.5 g/dL 32-36 [facility] Mucus LM Ql (Urine sed)Order ed By: Dr. Zuniga on 09-13-2022 Mucus Ql (Urine sed) 0 SEEN /hpf [facility] Nitrite Test strip Ql (U)Ord ered By: Dr. Zuniga on 09-13-2022 Nitrite Ql (U) Negative Negative [facility] No Panel InformationOrdered By: Dr. Zuniga on 09-13-2022 Estimated GFR (MDRD) Amer 255 mL/min >60 [facility] Comment on above: GFR Calc Estimated GFR (MDRD) Non-Af Amer 211 mL/min >60 [facility] Comment on above: Non- GFR Calc Prostate Specific Antigen Screen 3.23 ng/mL 0.00-4.00 [facility] Comment on above: This test was perfor med using the TPSA assay method [facility]. Values obtained with differentassay methods cannot be used interchangably.When changing PSA assays in the course of monitoring apatient, additional sequential testing should be carriedout to confirm baseline values. Thyroid Stimulating Hormone (TSH) 2.06 uIU/mL 0.358-3.74 [facility] Urine Microalbumin/Creatinin e Ratio 54.2 mg/g CRE <30 [facility] Vitamin D 25-Hydroxy 95.7 ng/mL [facility] Comment on above: Vitamin D 25(OH) Sta tus Range Deficiency <20 ng/mL (50nmol/L) Insufficiency 20 - 30 ng/mL (50 - 75 nmol/L) Sufficiency 30 - 100 ng/mL (75 - 250 nmol/L) Toxicity >100 ng/mL (>250 nmol/L) Platelets bldOrdered By: Dr. Zuniga on 09-13-2022 Platelets (Bld) [#/Vol] 188 10*3/uL 150-450 [facility] Protein Test strip Ql (U)Ord ered By: Dr. Zuniga on 09-13-2022 Protein Ql (U) Negative Negative [facility] Serum or plasma albumin marialuisa urement (mass/volume)Ordered By: Dr. Zuniga on 09-13-2022 Albumin [Mass/Vol] 3.8 g/dL 3.2-5.0 [facility] Serum or plasma albumin/glob ulin mass ratioOrdered By: Dr. Zuniga on 09-13-2022 Albumin/Globulin [Mass ratio] 1.1 {ratio} 0.9-2.4 [facility] Serum or plasma calcium marialuisa urement (mass/volume)Ordered By: Dr. Zuniga on 09-13-2022 Calcium [Mass/Vol] 9.4 mg/dL 8.5-10.1 [facility] Serum or plasma cholesterol in HDL measurement (mass/volume)Ordered By: Dr. Zuniga on 09-13-2022 Cholesterol in HDL [Mass/Vol] 79 mg/dL >40 [facility] Comment on above: The drugs N-Acetylcy steine and Metamizole may falsely depress this assay. Reference Range HDL <40 mg/dL Low HDL Cholesterol HDL >or= 60 mg/dL High HDL Cholesterol Serum or plasma cholesterol in VLDL measurement (mass/volume)Ordered By: Dr. Zuniga on 09-13-2022 Cholesterol in VLDL [Mass/Vol] 18 mg/dL 5-40 [facility] Serum or plasma creatinine m easurement (mass/volume)Ordered By: Dr. Zuniga on 09-13-2022 Creatinine [Mass/Vol] 0.41 mg/dL 0.70-1.30 [facility] Comment on above: The validity of the calculated GFR & GFRAA in patients over 70 years has not been determined. Clinical correlation is essential. Serum or plasma folate measu rement (mass/volume)Ordered By: Dr. Zuniga on 09-13-2022 Folate [Mass/Vol] 29.20 ng/mL 3.1-55.4 [facility] Serum or plasma low density lipoprotein (LDL) cholesterol measurement (mass/volume)Ordered By: Dr. Zuniga on 09-13-2022 Cholesterol in LDL [Mass/Vol] 78 mg/dL 0-130 [facility] Serum or plasma urea nitroge n measurement (mass/volume)Ordered By: Dr. Zuniga on 09-13-2022 Urea nitrogen [Mass/Vol] 20 mg/dL 7-18 [facility] Squamous epithelial cells de tection in urine sediment by light microscopyOrdered By: Dr. Zuniga on 09-13-2022 Epithelial cells.squamous LM Ql (Urine sed) 0 SEEN /hpf 0-5 [facility] Thin prep Papanicolaou smear with manual screeningOrdered By: Dr. Zuniga on 09-13-2022 Thin prep Papanicolaou smear with manual screening 16 U/L 15-37 [facility] Thin prep Papanicolaou smear with manual screening 5 5-15 [facility] Thin prep Papanicolaou smear with manual screening 16.1 mg/L NO RANGE EST. [facility] Urine blood detectionOrdered By: Dr. Zuniga on 09-13-2022 RBC Ql (U) Negative Negative [facility] RBC Ql (U) 0 SEEN /hpf 0-5 [facility] Urine clarityOrdered By: Dr. Zuniga on 09-13-2022 Clarity (U) Clear Clear [facility] Urine color determinationOrd ered By: Dr. Zuniga on 09-13-2022 Color (U) Yellow Yellow [facility] Urine creatinine measurement (mass/volume)Ordered By: Dr. Zuniga on 09-13-2022 Creatinine (U) [Mass/Vol] 29.70 mg/dL NO RANGE EST. [facility] Urine glucose detectionOrder ed By: Dr. Zuniga on 09-13-2022 Glucose Ql (U) Normal mg/dl Normal [facility] Urine leukocyte esterase det ection by dipstickOrdered By: Dr. Zuniga on 09-13-2022 Leukocyte esterase Test strip Ql (U) 25 /ul Negative [facility] Urine pHOrdered By: Dr. Zuniga on 09-13-2022 pH (U) 6.5 [pH] 5.0 - 8.0 [facility] Urine sediment bacteria coun t by microscopy (number/high power field)Ordered By: Dr. Zuniga on 09-13-2022 Bacteria LM.HPF (Urine sed) [#/Area] 0 /[HPF] None Seen [facility] Urine specific gravity measu rementOrdered By: Dr. Zuniga on 09-13-2022 Specific gravity (U) [Rel density] 1.010 1.002-1.03 0 [facility] Urobilinogen Auto test strip Ql (U)Ordered By: Dr. Zuniga on 09-13-2022 Urobilinogen Ql (U) Normal mg/dl Normal [facility] Vital Signs Date Time Vital Sign Value Performing Clinician Facility 03-13-2025 09:27-0500 Heart rate 66 /min Dr. Taylor Zuniga DO Work Phone: [facility] 03-13-2025 09:21-0500 Body temperature 99.1 [degF] Dr. Taylor Zuniga DO Work Phone: [facility] 03-13-2025 09:21-0500 Diastolic blood pressure 47 mm[Hg] Dr. Taylor Zuniga DO Work Phone: [facility] 03-13-2025 09:21-0500 Respiratory rate 15 /min Dr. Taylor Zuniga DO Work Phone: [facility] 03-13-2025 09:21-0500 SaO2% (BldA) [Mass fraction] 95 % Dr. Taylor Zuniga DO Work Phone: [facility] 03-13-2025 09:21-0500 Systolic blood pressure 120 mm[Hg] Dr. Taylor Zuniga DO Work Phone: [facility] 03-11-2025 13:54-0500 Body height [address] Taylor Zuniga DO Work Phone: [facility] 03-11-2025 13:54-0500 Body weight 68.[address] Taylor Zuniga DO Work Phone: [facility] 03-05-2025 16:00-0400 Body mass index (BMI) [Ratio] 23.6 kg/m2 Dr. Taylor Zuniga DO Work Phone: [facility] 02-24-2025 21:50-0400 Body temperature 98.3 [degF] Dr. Taylor Zuniga DO Work Phone: [facility] 02-24-2025 21:50-0400 Diastolic blood pressure 63 mm[Hg] Dr. Taylor Zuniga DO Work Phone: [facility] 02-24-2025 21:50-0400 Heart rate 68 /min Dr. Taylor Zuniga DO Work Phone: [facility] 02-24-2025 21:50-0400 Respiratory rate 18 /min Dr. Taylor Zuniga DO Work Phone: [facility] 02-24-2025 21:50-0400 SaO2% (BldA) [Mass fraction] 99 % Dr. Taylor Zuniga DO Work Phone: [facility] 02-24-2025 21:50-0400 Systolic blood pressure 189 mm[Hg] Dr. Taylor Zuniga DO Work Phone: [facility] 02-24-2025 17:04-0400 Body mass index (BMI) [Ratio] 24.5 kg/m2 Dr. Taylor Zuniga DO Work Phone: [facility] 02-24-2025 17:04-0400 Body weight 70.[address] Taylor Zuniga DO Work Phone: [facility] 12-17-2022 15:35-0400 Body height 177.[address] [facility] 12-17-2022 15:35-0400 Body temperature 97.2 [degF] [facility] 12-17-2022 15:35-0400 Diastolic blood pressure 68 mm[Hg] [facility] 12-17-2022 15:35-0400 Heart rate 65 /min [facility] 12-17-2022 15:35-0400 Respiratory rate 18 /min [facility] 12-17-2022 15:35-0400 SaO2% (BldA) [Mass fraction] 98 % [facility] 12-17-2022 15:35-0400 Systolic blood pressure 167 mm[Hg] [facility] 12-15-2022 21:37-0400 Diastolic blood pressure 78 mm[Hg] Taylor Zuniga DO Work Phone: [facility]; [facility] [...] Evaluation and management of inpatient Taylor Fast Facility:[facility] Start: 02-26-2025 End: 02-26-2025 Evaluation and management of [facility] Facility:[facility] Start: 02-24-2025 End: 03-05-2025 Evaluation and management of inpatient DEISI VILLALTA Facility:[facility] Start: 02-24-2025 ambulatory Taylor Fast Facility:[facility] Start: 02-24-2025 Non-patient / Non-visit Dr. Windy Jasso MD [facility] Start: 02-24-2025 End: 02-24-2025 Emergency department patient visit Dr. Zee Alonso DO -Emergency Department Work Phone: Start: 12-18-2024 End: 12-18-[address] Taylor Zuniga DO Work Phone: -Laboratory Start: 12-18-2024 End: 12-18-[address] Taylor Zuniga DO -Laboratory Work Phone: Start: 12-18-2024 End: 12-18-2024 ambulatory Taylor Fast Facility:[facility] Start: 09-16-2024 End: 09-16-[address] Taylor Zuniga DO Work Phone: [facility] Work Phone: Start: 09-16-2024 End: 09-16-[address] Taylor Zuniga DO -Laboratory Work Phone: Start: 09-16-2024 End: 09-16-2024 ambulatory Taylor Fast Facility:[facility] Start: 06-19-2024 End: 06-19-[address] Taylor Zuniga DO -Laboratory Work Phone: Start: 06-19-2024 End: 06-19-2024 ambulatory Taylor Fast Facility:[facility] Start: 07-27-2023 End: 07-27-2023 ambulatory [facility] Work Phone: Start: 07-27-2023 End: 07-27-2023 Patient encounter procedure [facility]-Laboratory Work Phone: Start: 04-18-2023 End: 04-18-2023 ambulatory [facility] Work Phone: Start: 04-18-2023 End: 04-18-2023 Patient encounter procedure [facility]-Labor[facility] Work Phone: Start: 03-15-2023 End: 03-15-2023 ambulatory [facility] Work Phone: Start: 03-15-2023 End: 03-15-2023 Patient encounter procedure [facility]-Laboratory Work Phone: Start: 01-03-2023 End: 01-03-2023 ambulatory [facility] Work Phone: Start: 01-03-2023 End: 01-03-2023 Patient encounter procedure [facility]-Laboratory Work Phone: Start: 12-17-2022 End: 12-17-2022 Emergency department patient visit [facility]-Emergency Department Work Phone: Start: 12-15-2022 End: 12-25-2022 Home visit est pt mod-hi severity 40 minutes Taylor Fast DO Work Phone: [facility] Start: 09-13-2022 End: 10-04-2022 ambulatory [facility] Work Phone: Start: 09-13-2022 End: 10-04-2022 Discharged Recurring [facility]-Home Health Lab Start: 08-23-2022 End: 08-23-2022 Phone Encounter Taylor Fast DO Work Phone: [facility] Start: 08-22-2022 ambulatory Taylor A Fast DO [facility] Start: 08-22-2022 End: 08-22-2022 Home visit new pt unstabl/signif new prob 75 min Taylor Fast DO Work Phone: [facility] Procedures Date Procedure Procedure Detail Performing Clinician Start: 03-13-[address] Taylor Zuniga DO Work Phone: Start: 02-24-2025 CT of abdomen and pelvis without contrast Dr. Taylor Zuniga DO Work Phone: Start: 02-24-2025 Plain X-ray abdomen Dr. Taylor Zuniga DO Work Phone: Start: 02-24-[address] Taylor Zuniga DO Work Phone: Start: 02-24-2025 CT of thorax, [...] 3 Views Procedure Note: See Note; NOTES: [facility] Imaging Services [address] [place] [address] Lumbar Spine 2 or 3 Views MR#: [id number] Acct: [id number] Name: JEANIE RANKIN Rep #: [id number] : 1940 M 82 From: Paulie Licona MD PCP: Dr. Taylor Zuniga DO Status: REG ER Study: Lumbar Spine 2 or 3 Views Date of Exam: Exam# [id number] Ordering Dr: Tor Yadav MD STUDY: X-RAY [...] Taylor Zuniga DO; Dr. Tor Yadav MD Legal Arbitrator: Signed Taylor Zuniga DO Work Phone: Start: 12-17-2022 X-ray of lumbar spin e, two or three views Start: 12-17-2022 End: 12-17-2022 Emergency Department Summary Procedure Note: See Note; NOTES: [facility] Medical Records Department [address] [place] [address] Emergency Department Summary 12/17/22 MR#: [id number] Acct: [id number] Name: JEANIE RANKIN Rep #: [id number] : 1940 82 From: Tor Yadav MD PCP: Dr. Taylor Fast, DO Status:DEP ER Location: ED HPI <BENNETT [...] blood thinners, vomiting, feeling dazed or confused. [facility] <BENNETT Miranda - Last Filed: 12/17/22 18:48> [facility] Medical History Anemia CYST EXCISION RIGHT [...] Mild Itching Verified 12/17/22 15:35 [From Neosporin ([id number])] neomycin AdvReac Mild Itching Verified 12/17/22 15:35 [From Neosporin ([id number])] polymyxin B AdvReac Mild Itching Verified 12/17/22 15:35 [From Neosporin ([id number])] adhesive tape AdvReac Unknown Verified 12/17/22 15:35 [...] <BENNETT Miranda - Last Filed: 12/17/22 18:48> [facility] Narrative Medical decision making narrative: Patient presenting [...] Yadav MD - Last Filed: 12/17/22 16:06> [facility] Narrative Medical decision making narrative: Patient presenting [...] Injury (Adult), ED Laceration Scalp Stitches or [place] Prescriptions: No Action multivitamin with folic acid [...] your Primary Care Provider. Call [facility] ([phone]) or report to the closest Emergency Room. Call 911 if necessary. 12/17/222017 <Electronically signed by Tor Yadav MD> Cosigner Signature (if applicable): 12/17/22 1848 <Electronically signed by Maria Dolores Shay PA> CC: Dr. Taylor Zuniga DO Signed Taylor Zuniga DO Work Phone: Start: 12-17-2022 CT of head without contrast Cataract extraction and insertion of intraocular lens Taylor Zuniga DO Work Phone: Comment on above: bilateral- Dr Gera [place] Cataract extraction and insertion of intraocular lens Taylor Zuniga DO Work Phone: Comment on above: bilateral- Dr Gera [place] Tonsillectomy Taylor A Fast D O Work Phone: Tonsillectomy Taylor A Fast D O Work Phone: Plan of Treatment Date Care Activity Detail Author Start: 03-12-2025 Wound care [facility] Start: 03-08-2025 End: 03-09-2025 [facility] Start: 03-06-2025 Verification routine [facility] Start: 03-06-2025 Development of care plan [facility] Start: 03-06-2025 Speech therapy management [facility] Start: 03-06-2025 Developing a treatment plan [facility] Start: 03-05-2025 Speech therapy assessment [facility] Start: 03-05-2025 Following clinical pathway protocol [facility] Start: 03-05-2025 Admission procedure [facility] Start: 03-05-2025 Introduction of urinary catheter [facility] Start: 03-05-2025 Measuring intake and output [facility] Start: 03-05-2025 End: 03-06-2025 Patient referral to dietitian [facility] Start: 03-05-2025 Referral for physical therapy [facility] Start: 03-05-2025 Referral to occupational therapist [facility] Start: 03-05-2025 Vital signs measurements [facility] Start: 03-05-2025 [facility] Start: 03-05-2025 Evaluation and management of inpatient [facility] Start: 02-24-2025 End: 02-24-2025 [facility] Start: 12-25-2022 Blood count complete auto&auto difrntl wbc CBC W/AUTO DIFF WBC (45224) [facility]; [facility] Work Phone: Start: 12-25-2022 25 hydroxy includes fractions if performed Vitamin D Hydroxy (90938) [facility]; [facility] Work Phone: Start: 12-25-2022 Hemoglobin glycosylated a1c HGB A1C (92485) [facility]; [facility] Work Phone: Start: 12-25-2022 Comprehensive metabolic panel METABOLIC PANEL, COMPREHENSIVE (02425) [facility]; [facility] Work Phone: Start: 12-25-2022 Procedure Education Eprescribed prescriptions (G8553) [facility]; [facility] Work Phone: Start: 12-17-2022 Smpl repair scalp/neck/ax/genit/trun k 2.6-7.5cm RPR S/N/AX/GEN/TRNK2.6-7.5C M [facility] Start: 08-22-2022 Natriuretic peptide BNTP (98910) [facility]; [facility] Work Phone: Start: 08-22-2022 Assay of prostate specific antigen total PSA (Medicare - G0103) (45760) [facility]; [facility] Work Phone: Start: 08-22-2022 Lipid panel LIPID PANEL (07103) [facility]; [facility] Work Phone: Start: 08-22-2022 25 hydroxy includes fractions if performed Vitamin D Hydroxy (11575) [facility]; [facility] Work Phone: Start: 08-22-2022 Cyanocobalamin vitamin b-12 VITAMIN B12 AND FOLATES (83938) [facility]; [facility] Work Phone: Start: 08-22-2022 Urine albumin quantitative MICROALBUMIN: CREATININE RATIO (89882) AND (60468) [facility]; [facility] Work Phone: Start: 08-22-2022 Urnls dip stick/tablet reagent auto microscopy URINALYSIS, W/ MICRO (45652) [facility]; [facility] Work Phone: Start: 08-22-2022 Assay of thyroid stimulating hormone tsh TSH (74425) [facility]; [facility] Work Phone: Start: 08-22-2022 Blood count complete auto&auto difrntl wbc CBC W/AUTO DIFF WBC (62667) [facility]; [facility] Work Phone: Start: 08-22-2022 Comprehensive metabolic panel METABOLIC PANEL, COMPREHENSIVE (67269) [facility]; [facility] Work Phone: Anion gap in Serum o r Plasma [facility] Anion gap in Serum o r Plasma [facility] Anion gap in Serum o r Plasma [facility] Anion gap in Serum o r Plasma [facility] Anion gap in Serum o r Plasma [facility] BUN/Creatinine ratio [facility] BUN/Creatinine ratio [facility] BUN/Creatinine ratio [facility] BUN/Creatinine ratio [facility] BUN/Creatinine ratio [facility] Calcium [Mass/volume ] in Serum or Plasma [facility] Calcium [Mass/volume ] in Serum or Plasma [facility] Calcium [Mass/volume ] in Serum or Plasma [facility] Calcium [Mass/volume ] in Serum or Plasma [facility] Calcium [Mass/volume ] in Serum or Plasma [facility] Carbon dioxide katalina nt measurement [facility] Carbon dioxide katalina nt measurement [facility] Carbon dioxide katalina nt measurement [facility] Carbon dioxide katalina nt measurement [facility] Carbon dioxide katalina nt measurement [facility] Creatinine [Mass/vol ume] in Serum or Plasma [facility] Creatinine [Mass/vol ume] in Serum or Plasma [facility] Creatinine [Mass/vol ume] in Serum or Plasma [facility] Creatinine [Mass/vol ume] in Serum or Plasma [facility] Creatinine [Mass/vol ume] in Serum or Plasma [facility] Erythrocyte mean corpuscular volume determination [facility] Erythrocyte mean corpuscular volume determination [facility] Erythrocyte mean corpuscular volume determination [facility] Erythrocyte mean corpuscular volume determination [facility] Erythrocyte mean corpuscular volume determination [facility] Glucose [Mass/volume ] in Serum or Plasma [facility] Glucose [Mass/volume ] in Serum or Plasma [facility] Glucose [Mass/volume ] in Serum or Plasma [facility] Glucose [Mass/volume ] in Serum or Plasma [facility] Glucose [Mass/volume ] in Serum or Plasma [facility] Hematocrit [Volume Fraction] of Blood [facility] Hematocrit [Volume Fraction] of Blood [facility] Hematocrit [Volume Fraction] of Blood [facility] Hematocrit [Volume Fraction] of Blood [facility] Hematocrit [Volume Fraction] of Blood [facility] Hemoglobin [Mass/vol ume] in Blood [facility] Hemoglobin [Mass/vol ume] in Blood [facility] Hemoglobin [Mass/vol ume] in Blood [facility] Hemoglobin [Mass/vol ume] in Blood [facility] Hemoglobin [Mass/vol ume] in Blood [facility] Leukocytes [#/volume ] in Blood [facility] Leukocytes [#/volume ] in Blood [facility] Leukocytes [#/volume ] in Blood [facility] Leukocytes [#/volume ] in Blood [facility] Leukocytes [#/volume ] in Blood [facility] Mean corpuscular hemoglobin concentration determination [facility] Mean corpuscular hemoglobin concentration determination [facility] Mean corpuscular hemoglobin concentration determination [facility] Mean corpuscular hemoglobin concentration determination [facility] Mean corpuscular hemoglobin concentration determination [facility] Mean corpuscular hemoglobin determination [facility] Mean corpuscular hemoglobin determination [facility] Mean corpuscular hemoglobin determination [facility] Mean corpuscular hemoglobin determination [facility] Mean corpuscular hemoglobin determination [facility] Measurement of renal function [facility] Measurement of renal function [facility] Measurement of renal function [facility] Measurement of renal function [facility] Measurement of renal function [facility] Neutrophil count [facility] Neutrophil count [facility] Neutrophil count [facility] Neutrophil count [facility] Neutrophil count [facility] Neutrophil percent differential count [facility] Neutrophil percent differential count [facility] Neutrophil percent differential count [facility] Neutrophil percent differential count [facility] Neutrophil percent differential count [facility] Patient Education ED Head Injury (Adult) ED Laceration Scalp Stitches or [place] [facility] Work Phone: Patient referral [facility] Work Phone: Platelets [#/volume] in Blood [facility] Platelets [#/volume] in Blood [facility] Platelets [#/volume] in Blood [facility] Platelets [#/volume] in Blood [facility] Platelets [#/volume] in Blood [facility] Potassium measurement [facility] Potassium measurement [facility] Potassium measurement [facility] Potassium measurement [facility] Potassium measurement [facility] Red blood cell count [facility] Red blood cell count [facility] Red blood cell count [facility] Red blood cell count [facility] Red blood cell count [facility] Red cell distributio n width determination [facility] Red cell distributio n width determination [facility] Red cell distributio n width determination [facility] Red cell distributio n width determination [facility] Red cell distributio n width determination [facility] Serum chloride measurement [facility] Serum chloride measurement [facility] Serum chloride measurement [facility] Serum chloride measurement [facility] Serum chloride measurement [facility] Sodium measurement [facility] Sodium measurement [facility] Sodium measurement [facility] Sodium measurement [facility] Sodium measurement [facility] Urea nitrogen [Mass/volume] in Serum or Plasma [facility] Urea nitrogen [Mass/volume] in Serum or Plasma [facility] Urea nitrogen [Mass/volume] in Serum or Plasma [facility] Urea nitrogen [Mass/volume] in Serum or Plasma [facility] Urea nitrogen [Mass/volume] in Serum or Plasma [facility]; [facility] Work Phone: Immunizations Immunization Date Immunization Notes Care Provider Thao zimmerman 12-17-2022 tetanus toxoid, redu jonathan diphtheria toxoid, and acellular pertussis vaccine, adsorbed [facility] 03-29-2016 tetanus and diphther ia toxoids, adsorbed, preservative free, for adult use (2 Lf of tetanus toxoid and 2 Lf of diphtheria toxoid) [facility] Payers Date Payer Category Payer Self-pay [id number] 2022 Private Health Insurance [facility] [id number] 2011 Unknown [id number] 2003 Medicare [id number] 1940 Unknown [id number] 2.16.84 [id number] Unknown Unknown [id number] 2.16.8 [id number] Unknown [id number] 2.16.8 [id number] Unknown [id number] 2.16.8 [id number] Unknown [id number] 2.16.8 [id number] Unknown [id number] 2.16.8 [id number] Unknown [id number] 2.16.8 [id number] Social History Date Type Detail Facility Current Household Members Current Household Members [facility]; [facility] Work Phone: 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 none but 2 children adopted daughter and son - Start: 12-04-2018 End: 12-17-2022 Tobacco smoking status MTIS Unknown if ever smoked [facility] Start: 1940 Sex Assigned At Male [facility] Start: 02-01-2024 End: 03-05-2025 Tobacco smoking status NHIS Never smoked tobacco (finding) [facility] Sex Male [facility] Goals Date Patient Goal Desired Activity /State Functional Status Date Assessment Result Facility 03-13-2025 Functional status Lift Assist Si t to Stand Lift [facility] Work Phone: 03-12-2025 Functional status Activity Abili ty With Assist of 2 [facility] Work Phone: Mental Status Date Assessment Result Facility 03-12-2025 Cognitive function Voice/Name [facility] Work Phone: 03-11-2025 Cognitive function Appropriate [facility] Work Phone: Clinical Notes 12-17-2022 to 03-05-2025 Note Date & Type Note Facility 03-05-2025 Note [facility] Medical Records Department [address] [place] [address] History Physical Exam 03/05/251811 MR#: [id number] Acct: [id number] Name: JEANIE RANKIN Rep #: [id number] : 1940 84 From: Rey Henao MD PCP: Dr. Taylor Zuniga, DO Status:ADM IN Location: [id number] HPI - General General Date of Admission: 03/05/25 Date of Service: 02/26/25 Chief Complaint: Here for rehabilitation. HPI Narrative JEANIE RANKIN, is a 84 Male who presents with followin02/25/2025 Admit [facility]. Abdominal pain, nausea, vomiting for 3 days. [...] strengthening, prior to discharge home with . [facility] Medical History (Updated 03/05/25 @ 18:21 [...] Neosporin AdvReac Mild Itching Verified 02/24/25 17:08 ([id number])) neomycin (From Neosporin AdvReac Mild Itching Verified 02/24/25 17:08 ([id number])) polymyxin B (From Neosporin AdvReac Mild Itching Verified 02/24/25 17:08 ([id number])) adhesive tape AdvReac Unknown Verified 02/24/25 17:08 Family History Father Colon cancer Mother Gastric cancer Surgical History (Updated 03/05/25 @ 18:[address] Rey Henoa MD) History of repair of hiatal hernia [...] ideation Vital Signs (more content not included)... [facility] 03-05-2025 Note HNO ID: [id number] Author: MAGDA SQUIRES DO Service: Hospital Medicine Author Type: Physician Type: Progress Notes Filed: 03/05/2025 16:43 Note Text: INPATIENT PROGRESS NOTE DEPARTMENT OF HOSPITAL MEDICINE SERVICE DATE: 03/04/2025 NIGHT AND WEEKEND COVERAGE: From 7am - 7pm, please call Sound Attending After 7pm, please call cross cover pager #[phone] Subjective No acute events overnight. Underwent procedure on 03/04 without any complications. Has been tolerating full liquid diet this a.m. To be discharged by surgery today. No current facility-administered medications for this encounter. Objective PHYSICAL EXAM: BP 136/54 Pulse 50 Temp (Src) 98 (Oral) Resp 16 Ht 5' 9 (1.75m) Wt 141 lb 8.6 oz (64.2kg) [...] TIME: 5:32 PM (more content not included)... [facility] 03-05-2025 Note HNO ID: [id number] Author: HARLAN ANDREW RN Service: Care Management Author Type: Registered Nurse Type: Care Mgt Progress Note Filed: 03/05/2025 12:42 Note Text: CARE MANAGEMENT PROGRESS NOTE SERVICE DATE: 03/05/2025 SERVICE TIME: 12:29 PM LOS: 8 days Post-Acute Discharge Planning Patient Goal(s): Better appetite, Better mobility [place] [facility] Explained: Discharge Planning Participant(s): Patient, Spouse/significant other Patient/Family Comments: Anticipated # of Days Until Discharge: 0 Transport at Discharge: Transportation Arrangements: Ambulance Transportation Agency and Phone #:: [facility] ( [facility] ) [phone] / [phone] Date of Trip: 03/05/25 Time of Trip: 1400 Type of Service: BLS Non-emergency Is Patient Medicaid Pending?: No Was transportation financial coverage discussed with family?: Patient Area Director Location: [facility] Destination: [facility] Financial Care Management Responsibility: None Needs Prior to Discharge: Needs Prior to Discharge: None, Ready for Discharge IMM Follow Up Copy Given: Yes Copy given to:: Patient Method: In Person Post-Acute Discharge Plan: Plan discharge to [facility] today at 2pm. Patient and spouse in agreement with plan. RN to call report and send AVS in envelope provided. SIGNATURE: Harlan Andrew RN PATIENT NAME: Jeanie Rankin DATE: March 05, 2025 TIME: 12:29 PM [facility] 03-05-2025 Note HNO ID: [id number] Author: BLAINE CASIANO MD Service: Care Management [...] MD Agree with above Blaine Casiano MD [facility] 03-05-2025 Note HNO ID: [id number] Author: BLAINE CASIANO MD Service: General Surgery [...] Agree with below. Patient is [facility]. Patient reports improvement of symptoms and able [...] questions or concerns Mon-Fri 6a-5p please page [phone]. After 5pm and on Weekends and Holidays, please page [phone] if in ICU or [phone] if on RNF. SUBJECTIVE: POD #1 RAL [...] (Oral) Resp 16 Ht 175.3 cm (5' 9) Wt 64.2 kg (141 lb 8.6 oz) SpO2 96% BMI 20.90 kg/m? 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 [facility] 03-05-2025 Note HNO ID: [id number] Author: NGUYEN NASH MD Service: General Surgery [...] Nguyen Nash MD General Surgery PGY-1 March 052:35 AM [facility] 03-04-2025 Note HNO ID: [id number] Author: MAGDA SQUIRES DO Service: Hospital Medicine Author Type: Physician Type: Progress Notes Filed: 03/05/2025 16:43 Note Text: INPATIENT PROGRESS NOTE DEPARTMENT OF HOSPITAL MEDICINE SERVICE DATE: 03/04/2025 NIGHT AND WEEKEND COVERAGE: From 7am - 7pm, please call Sound Attending After 7pm, please call cross cover pager #[phone] Subjective No acute events overnight. Has been [...] (Src) 97.7 (Temporal) Resp 16 Ht 5' 9 (1.75m) Wt 141 lb 8.6 oz (64.2kg) [...] Severe protein-calorie malnutrition (more content not included)... [facility] 03-04-2025 Note HNO ID: [id number] Author: GABBY CHEN APRN.CRNA Service: Nursing Author Type: Nurse Well Control Instructor Type: Anesthesia Procedure Notes Filed: 03/04/2025 15:50 Note Text: ANESTHESIOLOGY PROCEDURE NOTE Airway General Information Procedure Start Time/Medication Administration: 03/04/2025 3:18 PM Procedure End Time: 03/04/2025 3:18 PM Patient location during procedure: OR Patient identity confirmed: arm band and patient Staffing Anesthesiologist: Naya Aguilera MD WARP HAND: Gabby Chen APRN.WARP HAND Performed by: MARLY Indications and Patient Condition [...] March 04, 2025 TIME: 3:49 PM CSN: [id number] [facility] 03-04-2025 Note HNO ID: [id number] Author: AYAZ MERINO LISW Service: Care Management Author Type: Warp Hauler Type: Care Mgt Progress Note Filed: 03/04/2025 14:09 Note Text: CARE MANAGEMENT PROGRESS NOTE SERVICE DATE: 03/04/2025 SERVICE TIME: 11:05 AM LOS: 7 days Patient on the schedule for surgery today for hernia repair. Plan is [facility] once medically ready and bed available. [...] DATE: March 04, 2025 TIME: 11:05 AM [facility] 03-04-2025 Note HNO ID: [id number] Author: ANNE STUBBS DO Service: General Surgery [...] questions or concerns Mon-Sun 6a-5p please page [phone]. After 5pm and on Weekends and Holidays, please page [phone]. SUBJECTIVE: Doing well. Tolerated protein shakes yesterday. Ready for surgery today. Tolerating diet DIET NPO OBJECTIVE: Vitals: Temp (24hrs), Av.1 ?C (98.7 ?F), Min:36.3 ?C (97.3 ?F), Max:37.9 ?C (100.3 ?F) BP (!) 128/46 Pulse (!) 51 Temp 36.7 ?C (98.1 ?F) (Oral) Resp 16 Ht 175.3 cm (5' 9) Wt 64.2 kg (141 lb 8.6 oz) SpO2 95% BMI 20.90 kg/m? O2 Therapy: Room Air IANDO: Date 03/03/25 0700 - 03/04/25 0659 03/04/25 07 - 03/05/25 0659 Shift 3072-0737 3415-1631 7184-7952 24 Hour Total 9982-2239 3035-8401 5109-9157 24 Hour Total INTAKE PO 120 120 PO 120 120 Shift Total 120 120 OUTPUT Urine 200 111 7318 Void (ml) 762 535 8469 Urine Not Saved. 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 [facility] 03-03-2025 Note HNO ID: [id number] Author: KAREEM PEREZ DO Service: Hospital Medicine Author Type: Physician Type: Progress Notes Filed: 03/03/2025 12:06 Note Text: DEPARTMENT OF HOSPITAL MEDICINE PROGRESS NOTE SERVICE DATE: March 03, 2025 SERVICE TIME: 12:02 PM Hospital Medicine/Primary Attending: KAREEM PEREZ DO, DO NIGHT AND WEEKEND COVERAGE: After 7pm please page [phone] INTERVAL HPI: Follow up GOO NG remains [...] today's visit: Lab data: CBC: Recent Labs 03/03/25 0427 03/02/25 0603 03/01/25 0011 02/28/2514002/27/2560402/26/25 0437 02/25/25 0332 WBC 8.85 5.53 6.50 [...] 0.3 -- COAG: No results for input(s): APTT, INR in the last 168 hours. BMP: Recent Labs 03/03/2542603/02/2560203/01/251002/28/2514002/27/2505 02/26/25 1356 02/26/25 0437 02/25/25 0332 GLUC [...] 0.46* 0.45* 0.40* 0.55* CHEM: Recent Labs 03/03/2542603/02/2503 03/01/251002/28/2514002/27/2505 02/26/25 1356 02/26/25 0437 02/25/25 0332 ALB [...] TBILI 0.7 0.6 URINALYSIS:No results for input(s): PH, SPGR, UGLUC, UBILI, UKET, UHB, UPROT, UROBIL, UWBC, SSA in the last 168 hours. Invalid input(s): NITR CARDIAC: No results for input(s): PBNP in the last 168 hours. PHYSICAL EXAM: BP 153/64 Pulse 61 Temp (Src) 98 (Oral) Resp 18 Ht 5' 9 (1.75m) Wt 141 lb 8.6 oz (64.2kg) [...] exam due t (more content not included)... [facility] 03-03-2025 Note HNO ID: [id number] Author: BLAINE CASIANO MD Service: General Surgery [...] and on Weekends and Holidays, please page [phone] if in ICU or [phone] if on RNF. SUBJECTIVE: Pt tolerated PPN [...] (Oral) Resp 18 Ht 175.3 cm (5' 9) Wt 64.2 kg (141 lb 8.6 oz) SpO2 93% BMI 20.90 kg/m? O2 Therapy: Room Air IANDO: Date 03/02/25 07 - 03/03/25 0659 03/03/25 0700 - 03/04/25 0659 Shift 1110-3287 3108-2706 2621-8472 24 Hour Total 9174-7113 7286-3548 1815-8027 24 Hour Total INTAKE PO 100 100 [...] outlet obstruction (HCC) (more content not included)... [facility] 03-02-2025 Note HNO ID: [id number] Author: HARLAN ANDREW RN Service: Care Management Author Type: Registered Nurse Type: Care Mgt Progress Note Filed: 03/02/2025 15:39 Note Text: CARE MANAGEMENT PROGRESS NOTE SERVICE DATE: 03/02/2025 SERVICE TIME: 3:38 PM LOS: 5 days [facility] accepted. Patient and spouse informed. Plan discharge to [facility] when medically stable. Sx planned for 03/04. . SIGNATURE: Harlan Andrew RN PATIENT NAME: Jeanie Rankin DATE: March 02, 2025 TIME: 3:38 PM [facility] 03-02-2025 Note HNO ID: [id number] Author: KAREEM PEREZ DO Service: Hospital Medicine Author Type: Physician Type: Progress Notes Filed: 03/02/2025 11:55 Note Text: DEPARTMENT OF HOSPITAL MEDICINE PROGRESS NOTE SERVICE DATE: March 02, 2025 SERVICE TIME: 11:50 AM Hospital Medicine/Primary Attending: KAREEM PEREZ DO, DO NIGHT AND WEEKEND COVERAGE: After 7pm please page [phone] INTERVAL HPI: Follow up TONY DRAKE remains out. On full liquids. Bp 153/60 [...] 03/02/25 0603 03/01/25 0011 02/28/25 0141 02/27/25 0602/26/2543602/25/25 0332 WBC 5.53 6.50 6.43 6.76 6.77 [...] 0.3 -- COAG: No results for input(s): APTT, INR in the last 168 hours. BMP: Recent [...] 0.45* 0.40* 0.55* CHEM: Recent Labs 03/02/25 0603 03/01/25 0011 02/28/25 0141 02/27/25 0605 02/26/25 1356 02/26/25 0437 02/25/25 0332 ALB -- -- -- 3.5* -- 3.5* -- TPROT -- -- -- 6.1* -- 6.1* -- CA 8.9 8.3* 8.6 9.1 9.3 9.3 9.7 MG -- -- 2.1 2.2 -- 2.3 -- HEPATIC: Recent Labs 02/27/25 0605 02/26/25 043 ALKPHOS 51 51 ALT 11 11 AST 18 20 TBILI 0.7 0.6 URINALYSIS:No results for input(s): PH, SPGR, UGLUC, UBILI, UKET, UHB, UPROT, UROBIL, UWBC, SSA in the last 168 hours. Invalid input(s): NITR CARDIAC: No results for input(s): PBNP in the last 168 hours. PHYSICAL EXAM: BP 165/69 Pulse 54 Temp (Src) 98.2 (Oral) Resp 17 Ht 5' 9 (1.75m) Wt 141 lb 8.6 oz (64.2kg) [...] Normal left ventricu (more content not included)... [facility] 03-02-2025 Note HNO ID: [id number] Author: BLAINE CASIANO MD Service: General Surgery [...] please page [phone] if in ICU or [phone] if on RNF. SUBJECTIVE: [place]. Continues to pass flatus, no BM. He [...] (Oral) Resp 16 Ht 175.3 cm (5' 9) Wt 64.2 kg (141 lb 8.6 oz) SpO2 94% BMI 20.90 kg/m? 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 [facility] 03-01-2025 Note HNO ID: [id number] Author: GLADIS REES RN Service: Care Management Author Type: Registered Nurse Type: Care Mgt Progress Note Filed: 03/01/2025 12:24 Note Text: CARE MANAGEMENT PROGRESS NOTE SERVICE DATE: 03/01/2025 SERVICE TIME: 12:21 PM LOS: 4 days [place] [facility] Choice Given: Yes Level of Care Discussed: Jail Facility Financial Disclosure Provided: Yes Financial Disclosure Comments: [facility] connected care Provider List: Jail Facility Provider list within the patient's requested geographic area shared with the patient/family: Yes within: 10 miles of zip code: [address] Quality and resource use metrics shared with [...] spouse are agreeable and referral sent to [facility]. Advised to review list if needed for alternate SNF choices. Will need accepting SNF and cot transport. No precert needed. CM to follow for transitional care planning. SIGNATURE: Gladis Rees RN PATIENT NAME: Jeanie Rankin DATE: March 01, 2025 TIME: 12:21 PM [facility] 03-01-2025 Note HNO ID: [id number] Author: FARIBA BOLAÑOS MD Service: Hospital Medicine Author Type: Physician Type: Progress Notes Filed: 03/01/2025 12:00 Note Text: DEPARTMENT OF HOSPITAL MEDICINE PROGRESS NOTE SERVICE DATE: March 01, 2025 SERVICE TIME: 11:56 AM Hospital Medicine/Primary Attending: Fariba Bolaños NIGHT AND WEEKEND COVERAGE: After 7pm please page [phone] INTERVAL HPI: Follow up GOO Pt s/p [...] visit: Lab data: CBC: Recent Labs 03/01/25 0011 02/28/25 01402/27/2560402/26/257 02/25/25 0332 WBC 6.50 6.43 6.76 6.77 [...] 0.3 -- COAG: No results for input(s): APTT, INR in the last 168 hours. BMP: Recent Labs 03/01/25 00102/28/2514002/27/2560402/26/25 1356 02/26/25 0437 02/25/25 0332 GLUC 97 [...] 0.45* 0.40* 0.55* CHEM: Recent Labs 03/01/25 00102/28/25 01402/27/2560402/26/25 1356 02/26/25 0437 02/25/25 0332 ALB -- -- 3.5* -- 3.5* -- TPROT -- -- 6.1* -- 6.1* -- CA 8.3* 8.6 9.1 9.3 9.3 9.7 MG -- 2.1 2.2 -- 2.3 -- HEPATIC: Recent Labs 02/27/2560425 0437 ALKPHOS 51 51 ALT 11 11 AST 18 20 TBILI 0.7 0.6 URINALYSIS:No results for input(s): PH, SPGR, UGLUC, UBILI, UKET, UHB, UPROT, UROBIL, UWBC, SSA in the last 168 hours. Invalid input(s): NITR CARDIAC: No results for input(s): PBNP in the last 168 hours. PHYSICAL EXAM: BP 180/72 Pulse 59 Temp (Src) 98.1 (Temporal) Resp 18 Ht 5' 9 (1.75m) Wt 141 lb 8.6 oz (64.2kg) [...] - The visual (more content not included)... [facility] 02-28-2025 Note HNO ID: [id number] Author: FARIBA BOLAÑOS MD Service: Hospital Medicine Author Type: Physician Type: Progress Notes Filed: 02/28/2025 13:02 Note Text: DEPARTMENT OF HOSPITAL MEDICINE PROGRESS NOTE SERVICE DATE: February 28, 2025 SERVICE TIME: 12:58 PM Hospital Medicine/Primary Attending: Fariba Bolaños NIGHT AND WEEKEND COVERAGE: After 7pm please page [phone] INTERVAL HPI: Follow up GOO Pt s/p [...] today's visit: Lab data: CBC: Recent Labs 02/28/25 0141 02/27/25 0605 02/26/25 0437 02/25/25 0332 WBC 6.43 6.76 6.77 8.90 HB 12.0* 12.4* 12.1* 13.8 HCT 36.4* 37.9* 36.1* 40.1 PLT 146* 173 174 227 MCV 96.8 97.7 95.0 92.6 RDWCV 12.4 12.5 12.5 12.6 NEUTP -- -- 65.9 -- ABSNEUT -- -- 4.46 -- LYMPHP -- -- 17.4 -- MONOP -- -- 15.8 -- EODINP -- -- 0.3 -- COAG: No results for input(s): APTT, INR in the last 168 hours. BMP: Recent Labs 02/28/2514002/27/2560402/26/256 02/26/2543602/25/25 033 GLUC 111* 81 74 85 137* NA 143 149* 148* 146* 143 K 3.6* 3.5* 3.4* 2.6* 3.2* CHLOR 102 102 100 99 94* CO2 33* 35* 36* 37* 39* ANION 8 12 12 10 10 BUN 26* 29* 22 22 20 CREAT 0.35* 0.46* 0.45* 0.40* 0.55* CHEM: Recent Labs 02/28/2514002/27/2560402/26/256 02/26/2543602/25/25331 ALB -- 3.5* -- 3.5* -- TPROT -- 6.1* -- 6.1* -- CA 8.6 9.1 9.3 9.3 9.7 MG 2.1 2.2 -- 2.3 -- HEPATIC: Recent Labs 02/27/2560402/26/25436 ALKPHOS 51 51 ALT 11 11 AST 18 20 TBILI 0.7 0.6 URINALYSIS:No results for input(s): PH, SPGR, UGLUC, UBILI, UKET, UHB, UPROT, UROBIL, UWBC, SSA in the last 168 hours. Invalid input(s): NITR CARDIAC: No results for input(s): PBNP in the last 168 hours. PHYSICAL EXAM: BP 167/59 Pulse 53 Temp (Src) 98.1 (Oral) Resp 16 Ht 5' 9 (1.75m) Wt 141 lb 8.6 oz (64.2kg) [...] echocardiographic exam for comparison. Electronically signed by Dedra Pruitt (more content not included)... [facility] 02-28-2025 Note HNO ID: [id number] Author: PETRONA ALBRECHT MD Service: General Surgery [...] please page [phone] if in ICU or [phone] if on RNF. SUBJECTIVE: NAEONChon Naidu says he's doing ok, all things considered. [...] (Oral) Resp 16 Ht 175.3 cm (5' 9) Wt 64.2 kg (141 lb 8.6 oz) SpO2 92% BMI 20.90 kg/m? O2 Therapy: Room Air IANDO: Date 02/27/25 07 - 02/28/25 0659 02/28/25 07 - 03/01/25 0659 Shift 0023-6148 5482-5116 1066-4532 24 Hour Total 5116-9760 0142-9002 2616-2619 24 Hour Total INTAKE Shift Total OUTPUT [...] 02/27/2025 Goals of (more content not included)... [facility] 02-27-2025 Note HNO ID: [id number] Author: KAREEM PEREZ DO Service: Hospital Medicine Author Type: Physician Type: Progress Notes Filed: 02/27/2025 15:55 Note Text: DEPARTMENT OF HOSPITAL MEDICINE PROGRESS NOTE SERVICE DATE: February 27, 2025 SERVICE TIME: 3:41 PM Hospital Medicine/Primary Attending: KAREEM PEREZ DO, DO NIGHT AND WEEKEND COVERAGE: After 7pm please page [phone] INTERVAL HPI: Follow up GOO Pt s/p [...] today's visit: Lab data: CBC: Recent Labs 02/27/25 0605 02/26/25 0437 02/25/25 0332 WBC 6.76 6.77 8.90 HB 12.4* 12.1* 13.8 HCT 37.9* 36.1* 40.1 PLT 173 174 227 MCV 97.7 95.0 92.6 RDWCV 12.5 12.5 12.6 NEUTP -- 65.9 -- ABSNEUT -- 4.46 -- LYMPHP -- 17.4 -- MONOP -- 15.8 -- EODINP -- 0.3 -- COAG: No results for input(s): APTT, INR in the last 168 hours. BMP: Recent Labs 02/27/25 0605 02/26/25 1356 02/26/25 0437 02/25/25 0332 GLUC 81 74 85 137* NA 149* 148* 146* 143 K 3.5* 3.4* 2.6* 3.2* CHLOR 102 100 99 94* CO2 35* 36* 37* 39* ANION 12 12 10 10 BUN 29* 22 22 20 CREAT 0.46* 0.45* 0.40* 0.55* CHEM: Recent Labs 02/27/25 0605 02/26/25 1356 02/26/25 0437 02/25/25 0332 ALB 3.5* -- 3.5* -- TPROT 6.1* -- 6.1* -- CA 9.1 9.3 9.3 9.7 MG 2.2 -- 2.3 -- HEPATIC: Recent Labs 02/27/25 0605 02/26/25 0437 ALKPHOS 51 51 ALT 11 11 AST 18 20 TBILI 0.7 0.6 URINALYSIS:No results for input(s): PH, SPGR, UGLUC, UBILI, UKET, UHB, UPROT, UROBIL, UWBC, SSA in the last 168 hours. Invalid input(s): NITR CARDIAC: No results for input(s): PBNP in the last 168 hours. PHYSICAL EXAM: BP 152/58 Pulse 58 Temp (Src) 97.6 (Temporal) Resp 16 Ht 5' 9 (1.75m) Wt 141 lb 8.6 oz (64.2kg) [...] of the gastric (more content not included)... [facility] 02-27-2025 Note HNO ID: [id number] Author: HARLAN ANDREW, RN Service: Care Management Author Type: Registered Nurse Type: Care Mgt Progress Note Filed: 02/27/2025 15:20 Note Text: CARE MANAGEMENT PROGRESS NOTE SERVICE DATE: 02/27/2025 SERVICE TIME: 3:20 PM LOS: 2 days IMM Follow Up Copy Given: Yes Copy given to:: Patient Method: In Person . SIGNATURE: Harlan Andrew RN PATIENT NAME: Jeanie Rankin DATE: February 27, 2025 TIME: 3:20 PM [facility] 02-27-2025 Note HNO ID: [id number] Author: HARLAN ANDREW RN Service: Care Management [...] DATE: February 27, 2025 TIME: 2:58 PM [facility] 02-27-2025 Note HNO ID: [id number] Author: GIOVANNI MCCOY RT(R) Service: Nuclear Medicine [...] PATIENT PRESENTS WITH AN IMPLANTABLE OR ATTACHED HYDRO SPRAYER OPERATOR: No CREATININE: Creatinine Date Value Ref Range [...] No IV SITE: Inpatient - refer to [facility] documentation POST EXAM PIV STATUS: Left in for next appointment PROCEDURE TYPE: NM Stress: 12.9mCi [id number] was administered IV for Rest Imaging at 745 by ty. 35.8 mCi [id number] was administered IV for Stress Imaging at 900 by ty. ADMINISTRATION TIME: 745 PATIENT DISCHARGED TO: Patient taken to IP transport area for return to RNF/ICU/ED. Is this a therapy: No A Diagnostic radioactive procedure has taken place, with no further precautions necessary other than routine body substance precautions. More information regarding radiation safety can be found using this link: [email or web address] 20Diagnostic%20Nuclear%20Medicine%20Pro [email or web address] SIGNATURE: RT Anmol(R) PATIENT NAME: Jeanie Rankin DATE: February 27, 2025 TIME: 9:13 AM PAGER/CONTACT #: [facility] 02-27-2025 Note HNO ID: [id number] Author: MUSHTAQ STOREY RN Service: Nursing Author Type: Registered Nurse Type: Nursing Progress Note Filed: 02/27/2025 08:46 Note Text: Lexiscan Nuclear Stress Test discussed with patient, voiced understanding. [facility] 02-27-2025 Note HNO ID: [id number] Author: JULY KENT APRN.CNP Service: Gastroenterology Author [...] will follow peripherally GI attending, Dr. Camilo [facility] 02-26-2025 Note HNO ID: [id number] Author: KAREEM PEREZ DO Service: Hospital Medicine Author Type: Physician Type: Progress Notes Filed: 02/26/2025 14:58 Note Text: [facility]PARTMENT OF [facility] MEDICINE PROGRESS NOTE SERVICE DATE: February 26, 2025 SERVICE TIME: 2:51 PM Hospital Medicine/Primary Attending: KAREEM PEREZ DO, DO NIGHT AND WEEKEND COVERAGE: After 7pm please page [phone] INTERVAL HPI: Follow up GOO Pt s/p [...] today's visit: Lab data: CBC: Recent Labs 02/26/25 0437 02/25/25 0332 WBC 6.77 8.90 HB 12.1* 13.8 HCT 36.1* 40.1 PLT 174 227 MCV 95.0 92.6 RDWCV 12.5 12.6 NEUTP 65.9 -- ABSNEUT 4.46 -- LYMPHP 17.4 -- MONOP 15.8 -- EODINP 0.3 -- COAG: No results for input(s): APTT, INR in the last 168 hours. BMP: Recent Labs 02/26/2543602/25/25 033 GLUC 85 137* NA 146* 143 K 2.6* 3.2* CHLOR 99 94* CO2 37* 39* ANION 10 10 BUN 22 20 CREAT 0.40* 0.55* CHEM: Recent Labs 02/26/2543602/25/25331 ALB 3.5* -- TPROT 6.1* -- CA 9.3 9.7 MG 2.3 -- HEPATIC: Recent Labs 02/26/25436 ALKPHOS 51 ALT 11 AST 20 TBILI 0.6 URINALYSIS:No results for input(s): PH, SPGR, UGLUC, UBILI, UKET, UHB, UPROT, UROBIL, UWBC, SSA in the last 168 hours. Invalid input(s): NITR CARDIAC: No results for input(s): PBNP in the last 168 hours. PHYSICAL EXAM: BP 174/60 Pulse 59 Temp (Src) 98.3 (Temporal) Resp 16 Ht 5' 9 (1.75m) Wt 141 lb 8.6 oz (64.2kg) [...] Prophylaxis/Anticoagulants 02/25/25 0615 vte current anticoag therapy ([place]) 02/25/25 0615 pneumatic compression sleeve(s) ([place]) 02/25/25 0615 activity - mobilize patient ([place]) SIGNATURE: KAREEM PEREZ DO, DO PATIENT NAME: Jeanie Rankin DATE: February 26, 2025 TIME: 2:51 PM PAGER/CONTACT #: Team color pager Disclaimer: Portions of this note may have been generated using [employer] voice recognition software. Reaso (more content not included)... [facility] 02-26-2025 Note HNO ID: [id number] Author: BERENICE THOMPSON APRN.WARP HAND Service: Anesthesiology Author Type: Nurse Well Control Instructor Type: Anesthesia Procedure Notes Filed: 02/26/2025 11:23 Note Text: ANESTHESIOLOGY PROCEDURE NOTE Airway General Information Procedure Start Time/Medication Administration: 02/26/2025 11:10 AM Procedure End Time: 02/26/2025 11:11 AM Patient location during procedure: OR Timeout Performed Pre-procedure: timeout performed Consent Obtained: Yes Patient identity confirmed: arm band Staffing WARP HAND: Berenice Thompson APRN.WARP HAND Performed by: MARLY Indications and Patient Condition [...] prior to ETT placement. SIGNATURE: Berenice Thompson APRN.WARP HAND PATIENT NAME: Jeanie Rankin DATE: February 26, 2025 TIME: 11:22 AM CSN: [id number] [facility] 02-25-2025 Note HNO ID: [id number] Author: RONALDO YI PA-C Service: Hospital Medicine Author Type: Physician Credit Support Counselor Type: Plan of Care Filed: 02/25/2025 23:20 Note Text: 1919: This JUSTIN was notified about this patient's EKG results by RN. EKG - Sinus bradycardia w/1st Degree AV Block and RBBB. T-wave inversions noted in multiple leads. STAT DEANDRE ordered as well as repeat EKG at 2100 ordered. 2030: DEANDRE - 81 Ordered serial DEANDRE q3h to trend. 2123: EKG - Sinus bradycardia w/RBBB. No change in T-waves from previous EKG. 2319: DEANDRE - 75 Ronaldo Yi PA-C [facility] 02-25-2025 Note HNO ID: [id number] Author: AYAZ MERINO LISW Service: Care Management Author Type: Warp Hauler Type: Care Mgt Initial Assessment Filed: 02/25/2025 [...] Current Advance Directive: Health Care Power of Dish Up Person, Living Will In Chart: Yes Up To [...] lift) Discharge Planning Patient Goal(s): General wellness [place] Choice Explained: [place] Given: No Reason Not Given: [...] his equipment. Would need cot transport at id to return home. Dispo TBD. SIGNATURE: JERRY Baltazar PATIENT NAME: Jeanie Rankin DATE: February 25, 2025 TIME: 2:02 PM [facility] 02-25-2025 Note HNO ID: [id number] Author: KAREEM PEREZ DO Service: Hospital Medicine Author Type: Physician Type: Plan of Care Filed: 02/25/2025 13:37 Note Text: Pt admitted early this am by Executive Chairman Of The Board team for GOO, with NG in place. [...] speech and nutrition to see as well. [facility] 02-25-2025 Note HNO ID: [id number] Author: MORALES GARCIA RN Service: Nursing Author Type: Registered Nurse Type: Nursing Progress Note Filed: 02/25/2025 08:09 Note Text: Code status addressed with Dr Perez. DNR signed in chart [facility] 02-24-2025 Consult note [facility] 02-24-2025 Discharge summary [facility] 02-24-2025 Radiology Diagnostic study note [facility] [address] [place] [address] Abdomen/Pelvis without Cont MR#: [id number] Acct: [id number] Name: JEANIE RANKIN Rep #: [id number] : 1940 M 84 From: Dannie Richards MD PCP: Dr. Taylor Zuniga DO Status: REG ER Study:Abdomen/Pelvis without Cont Date of Exa m: 02/24/25 Exam# [id number] Ordering Dr: Maya Alonso DO PROCEDURE: CT ABDOMEN/PELVIS WITHOUT CONT [...] exam. No other acute findings. Reading Location: [id number] CC: Dr. Taylor Zuniga DO; Dr. Zee Alonso DO ~ Legal Arbitrator: Signed [facility] 02-24-2025 Consult note Note Date/Time February 24, 2025 11:26pm [facility] Medical Records Department [address] [place] [address] Consultation - Surgical 02/24/25 1900 MR#: [id number] Acct: [id number] Name: JEANIE RANKIN Rep #:[id number] : 1940 84 From: Windy Jasso MD PCP: Dr. Taylor Fast, DO Status:DEP ER Location: ED Assessment & [...] tertiary care . Windy Jasso M.D. Pager: [phone] [facility] [address] [place] [address], [facility], [address] [place] [address] Office: [phone] HPI Consult Data Date of Consult: 02/25/25 [...] body distended with fluid and air-read pending [facility] Medical History (Updated 02/24/25 @ 21:43 [...] Neosporin AdvReac Mild Itching Verified 02/24/25 17:08 ([id number])) neomycin (From Neosporin AdvReac Mild Itching Verified 02/24/25 17:08 (xel-epm-nfhdb)) polymyxin B (From Neosporin AdvReac Mild Itching Verified 02/24/25 17:08 (onw-crs-elumx)) adhesive tape AdvReac Unknown Verified 02/24/25 17:08 [...] 86.5 H, Lymph % (Auto) 4.6 L, [place] % (Auto) 8.4, Eos % (Auto) 0.0, [...] Charges/Coding Visit Charges Office Visits / Consults: 69116 ED Visit; High/Urgent Severity Multi Select Codes Visit Charges Office Visit/Consults: 70114 ED Visit; High/Urgent Severity 02/25/25 1330 <Electronically signed by Windy Jasso MD> Cosigner Signature (if applicable): CC: Dr. Taylor Zuniga, DO~ Signed [facility] Work Phone: 1(410) 636-348510-21-2025 Radiology Diagnostic study note [facility] Imaging Services [address] [place], [place] [id number] CT Chest, Abd, Pel w/Contrast MR#: [id number] Acct: [id number] Name: JEANIE RANKIN Rep #: [id number] 2 : 1940 M 84 From: Jay Pereyra MD PCP: Dr. Taylor Zuniga DO Status: REG ER Study:CT Chest, Abd, Pel w/Contrast Date of E xam: 02/24/25 Exam# [id number] Ordering Dr: Maya Alonso DO PROCEDURE: CT [...] belowthe diaphragm. Gastric decompression recommended. Reading [facility] CC: Dr. Taylor Zuniga DO; Dr. Zee Alonso DO ~ Legal Arbitrator: Signed [facility]10-21-2025 Radiology Diagnostic study note [facility] Imaging Services [address] [place], [place] [address] Abdomen Single View (Portable) MR#: [id number] Acct: [id number] Name: JEANIE RANKIN Rep #: [id number] 1 : 1940 M 84 From: Dannie Richards MD PCP: Dr. Taylor Zuniga DO Status: REG ER Study:Abdomen Single View (Portable) Date of Exam: 02/24/25 Exam# [id number] Ordering Dr: Maya Alonso DO PROCEDURE: ABDOMEN [...] terminates appropriately within the stomach. Reading Location: [facility] CC: Dr. Taylor Zuniga DO; Dr. Zee Alonso DO ~ Legal Arbitrator: Signed [facility]10-21-2025 Discharge summary Author Zee Alonso [facility] Note Date/Time February 24, 2025 1 1:26pm [facility] Medical Records Department [address] [place] [address] Emergency Department Summary 02/24/25 MR#: [id number] Acct: [id number] Name: JEANIE RANKIN Rep #:[id number] : 1940 84 From: Zee Alonso [...] blood in hisstool or black tarry stool. [facility] Medical History (Updated 10/21/25 @ 21:[address] Zee Alonso DO) [...] Neosporin AdvReac Mild Itching Verified 02/24/25 17:08 (iof-olr-skujy)) neomycin (From Neosporin AdvReac Mild Itching Verified 02/24/25 17:08 (zta-bst-jydrr)) polymyxin B (From Neosporin AdvReac Mild Itching Verified 02/24/25 17:08 (odj-ghx-qtwmz)) adhesive tape AdvReac Unknown Verified 02/24/25 17:08 [...] place NG tube to suction and decompress. Iwas asked to repeat the CT scan after decompression of the stomach and patient continues to have small part of the duodenum within the hernia concern for obstruction. General surgeon asked that we transfer patient to tertiary care center for definitive care. Family would like to go to [facility]. I discussed case with [facility] transfer line who discussed the case with [...] 86.5 H Lymph % (Auto) 4.6 L [place] % (Auto) 8.4 Eos % (Auto) 0.0 [...] belowthe diaphragm. Gastric decompression recommended. Reading Location[facility] KUB X-Ray 02/24/25 18:25 IMPRESSION: Enteric tube terminates appropriately within the stomach. Reading Location: [facility] Abdomen/Pelvis CT 02/24/25 20:30 IMPRESSION: Redemonstrated moderate-large hiatal hernia which contains a herniated short- segment of the proximal duodenum, which is at risk for obstruction. Decreased distention of the stomach and herniated duodenal segment post enteric tube placement since prior exam. No other acute findings. Reading Location: [facility] Critical Care Time Critical care time (excluding procedures): 30-74 minutes, Including time spent:,Discussing w/Patient &/or Family/Image Scientist, Discussing w/Consultants, ArrangingAdmission or Transfer, Performing Direct [...] [Primary Care Provider, Internal Medicine] Print Language: Mongolian Disposition Disposition: DC/Tx to Another Type of HCF What to do if you have Problems For any increased pain, shortness of breath, bleeding, nausea or vomiting, chestpain, or any unexpected problems, contact your Primary Care Provider. Call [facility] ([phone]) or report to the closest Emergency Room. Call 911 if necessary. 02/24/252325 <Electronically signed by Zee Alonso DO> Cosigner Signature (if applicable): CC: Dr. Taylor Zuniga DO ~ Signed [facility] Work Phone: [phone]) [phone] Hospital Discharge instructions Additional Instructions Please follow-up with your PCP. Please have sutures removed in 10 to 14 days and return for any worsening of your symptoms.[facility] Work Phone: Evaluation noteNo assessment information available [facility] Work Phone: Evaluation note* Diagnosis Onset Date [...] 05, 2025 3:52pm Vitamin D deficiency acute Octo 2024 3:52pm Abdominal pain inactive March 052024 3:52pm Gastric outlet obstruction inactive March 05, 2025 3:52pm [facility] Work Phone: Instructions* Name Dates Details Patient [...] for referral (narrative)No reason for referral [facility] Work Phone: Summary Purpose Family History [...] Yes March 4:25pm Living Will Yes March 29 016 4:25pm Power of Dish Up Person Yes March 29, 2016 4:25pm Advance Directive Response Recorded Date/ Time Name of Medical Power of Dish Up Person present December 17, 2022 3:39pm Advance Directives Yes March 4:25pm Living Will Yes December 17 3:39pm Power of Dish Up Person Yes December 17 2 023 3:39pm Advance Directive Response Recorded Date/ Time Advance Directives Yes March 3:25pm Living Will Yes December 17 2:39pm Power of Dish Up Person Yes December 17, 2 023 2:39pm Name of Medical Power of Dish Up Person present December 17, 2022 2:39pm Advance Directive Response Recorded Date/ Time Advance Directives Yes March 4:25pm Living Will Yes December 17 3 3:39pm Power of Dish Up Person Yes December 17, 2 023 3:39pm Advance Directive Response Recorded Date/ Time Advance Directives Yes March 3:25pm Living Will Yes December 17 3 2:39pm Power of Dish Up Person Yes December 17, 2 023 2:39pm Advance Directive Response Recorded Date/ Time Advance Directives Yes March 4:25pm Advance Directive Response Recorded Date/ Time Do you have a Healthcare Pow er of Dish Up Person? Yes February 24, 2025 4:08pm Do you have a Healthcare Pow er of Dish Up Person? 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 DATE CREATED AUTHOR AUTHOR'S ORGANIZ ATION 03/13/2025 [facility] DATE CREATED AUTHOR AUTHOR'S ORGANIZ ATION 03/20/[address] [facility] Care Teams (unrecognized sec tion and [...] Start: February 24, 2025 Dr. Zee Alonso DO Emergency Departmen t Physician Active Start: [...] BE BASED ON THE PRIMARY CLINICAL RECORDS. [facility] [employer] [facility]. provides no warranty or guarantee of the accuracy or completeness of information in this document.
[2025-04-20 07:58] LABS: Anion Gap 8 (5-15); BUN 12 mg/dL (4-19); BUN/Creat Ratio 29.1 RATIO (10-20); Calcium,Total 9.0 mg/dL (7.6-11.0); Carbon Dioxide 27.5 mmol/L (21.0-32.0); Chloride 96 mmol/L (98-108); Glucose 93 mg/dL (70-99); Potassium 4.8 mmol/L (3.3-5.1)
== END ==
LOC: OLS.ACH 05:00
PROVIDERS: PCP Internal Medicine; Visit Provider Internal Medicine
DX: I10 Essential (primary) hypertension (principal)
CPT/HCPCS: 36415; 80048

== ENCOUNTER → 2025-04-29 04:00 | Outpatient (REF) | payer MEDICARE, OTHER, SELFPAY ==
--- OUTSIDE RECORDS SUMMARY | 2025-04-29 03:38 | XMS RPT_ITS | CCD ---
Author Organization [facility] Care Team Providers Care Machine Pack Assembler Name Role Phone Fast DO, Taylor A Attending Unavailable Fast DO, Taylor A Consulting Unavailable Fast DO, Taylor A Unavailable Manchak BOOK BINDER, Tere Unavailable Unavailable Unavailable Unavailable Fast DO, [...] Physician Ungdayanara CANELA, Dr. Koch Attending Physician [phone] Gavin CANELA, Dr. Koch Emergency Department Physici [...] tape] Propensity to adverse reactions 9 Unknown [facility] (9 sources) Bacitracin Drug Allergy 9 Itching [facility] (9 sources) Neomycin Drug Allergy 9 Itching [facility] (9 sources) Polymyxin B Drug Allergy 9 Itching [facility] (1 source) Adhesive agent; Translations: [ADHESIVE] Propensity to adverse reactions to drug (disorder) 9 [facility] (1 source) NEOMYCIN-BACITR ACIN-POLYMYXIN; Translations: [NEOMYCIN-BACIT RACIN-POLYMYXIN ] Propensity to adverse reactions to drug (disorder) 6 [facility] (1 source) Bacitracin Drug Allergy 5 [facility] (1 source) Neomycin Drug Allergy 5 [facility] (1 source) polymyxin B Drug allergy (disorder) 5 [facility] Medications Current Medications Medication Drug Class(es) Dates Sig (Normalized) Sig (Original) aspirin 81 mg chewable tablet (1 source) Platelet Aggregation Inhibitor, Nonsteroidal Anti-inflammatory Drug Start: 03-05-2025 Aspirin 81 mg tablet,chewable Active 1 {tbl} PO DAILY March 04, 2025 11:00pm [facility] Complies with drug therapy Start: 03-05-2025 Aspirin 81 mg tablet,chewable Active 1 {tbl} PO DAILY March 04, 2025 11:00pm [facility] Complies with drug therapy cetirizine hydrochloride 10 [...] therapy Start: 07-31-2016 take 1000 [IU] by [facility] once daily Cholecalciferol (Vitamin D3) 1000 U Active 1000 U PO DAILY July 31, 2016 12:00am supplement take 1 tablet by [facility] once daily Vitamin D3 125 mcg [...] therapy Start: 02-12-2023 take 2 tablets by [facility] once daily lisinopriL 5 mg oral tablet 2 (two) tablet qd for 90 days Quantity: 180 {Tablet} Refills: 3 Ordered: 12-Feb-2023 Fast DO, Taylor A Fast DO, Taylor A Start : 12-Feb-2023 Active Comments: he has dysphagia and doesnt want the larger pill Start: 01-15-2023 take 2 tablets by [facility] once daily lisinopriL 5 mg oral tablet 2 (two) tablet qd for 90 days Quantity: 180 {Tablet} Refills: 3 Ordered: 15-Jan-2023 Fast DO, Taylor A Fast DO, Taylor A Start : 15-Jan-2023 Active Comments: he has dysphagia and doesnt want the larger pill Start: 12-25-2022 take 2 tablets by [facility] once daily lisinopriL 5 mg oral tablet [...] Start: 12-17-2022 take 1 capsule by [facility] once daily Turmeric 400 mg capsule Active [...] at some pointdiagnosed by muscle biopsy at [facility] 1995 had vns and therapy into assess and do all they coulddiagnosed by muscle biopsy at [facility] 1995 Other screening for suspected conditions [...] Profile (BMP )on 04-17-2025 BUN Normal 4-19 [facility] Comment on above: Result Comment: Canc elled via OM: Order edited - Discontinuing original order Performed By: #### L 100.0100, L500.2500 #### [facility] [address] [facility] [address] BUN/CRE Normal 10-20 [facility] Comment on above: Result Comment: Canc elled via OM: Order edited - Discontinuing original order Performed By: #### L 100.0100, L500.2500 #### [facility] [address] [facility] [address] Calcium Normal 7.6-11.0 [facility] Comment on above: Result Comment: Canc elled via OM: Order edited - Discontinuing original order Performed By: #### L 100.0100, L500.2500 #### [facility] [address] [facility] [address] CL Normal 98-108 [facility] Comment on above: Result Comment: Canc elled via OM: Order edited - Discontinuing original order Performed By: #### L 100.0100, L500.2500 #### [facility] [address] [facility] [address] CO2 Normal 21.0-32.0 [facility] Comment on above: Result Comment: Canc elled via OM: Order edited - Discontinuing original order Performed By: #### L 100.0100, L500.2500 #### [facility] [address] [place], [address] CREAT,SERUM Normal 0.70-1.20 [facility] Comment on above: Result Comment: Canc elled via OM: Order edited - Discontinuing original order Performed By: #### L 100.0100, L500.2500 #### [facility] [address] [place], [address] eGFR Normal >60 [facility] Comment on above: Result Comment: Canc elled via OM: Order edited - Discontinuing original order Performed By: #### L 100.0100, L500.2500 #### [facility] [address] [place], [address] GAP Normal 5-15 [facility] Comment on above: Result Comment: Canc elled via OM: Order edited - Discontinuing original order Performed By: #### L 100.0100, L500.2500 #### [facility] [address] [place], [address] GLU Normal 70-99 [facility] Comment on above: Result Comment: Canc elled via OM: Order edited - Discontinuing original order Performed By: #### L 100.0100, L500.2500 #### [facility] [address] [place], [address] Potassium Normal 3.3-5.1 [facility] Comment on above: Result Comment: Canc elled via OM: Order edited - Discontinuing original order Performed By: #### L 100.0100, L500.2500 #### [facility] [address] [place], [address] Basic Metabolic Profile (BMP) Normal 133-145 [facility] Comment on above: Result Comment: Canc elled via OM: Order edited - Discontinuing original order Performed By: #### L 100.0100, L500.2500 #### [facility] [address] [place], [address] CBC W/Diff, Automatedon 12-1 Absolute Neut Normal 2.0-7.7 [facility] Comment on above: Result Comment: Canc elled via OM: Order edited - Discontinuing original order Performed By: #### L 100.0100, L500.2500 #### [facility] [address] [place], [address] HCT Normal 40-54 [facility] Comment on above: Result Comment: Canc elled via OM: Order edited - Discontinuing original order Performed By: #### L 100.0100, L500.2500 #### [facility] [address] [place], [address] HGB Normal 13.0-16.5 [facility] Comment on above: Result Comment: Canc elled via OM: Order edited - Discontinuing original order Performed By: #### L 100.0100, L500.2500 #### [facility] [address] [place], [address] MCH Normal 27.0-32.0 [facility] Comment on above: Result Comment: Canc elled via OM: Order edited - Discontinuing original order Performed By: #### L 100.0100, L500.2500 #### [facility] [address] [place], [address] MCHC Normal 32-36 [facility] Comment on above: Result Comment: Canc elled via OM: Order edited - Discontinuing original order Performed By: #### L 100.0100, L500.2500 #### [facility] [address] [place], [address] MCV Normal 80-94 [facility] Comment on above: Result Comment: Canc elled via OM: Order edited - Discontinuing original order Performed By: #### L 100.0100, L500.2500 #### [facility] [address] [place], [address] NEUT% Normal 47-70 [facility] Comment on above: Result Comment: Canc elled via OM: Order edited - Discontinuing original order Performed By: #### L 100.0100, L500.2500 #### [facility] [address] [place], [address] PLT Normal 150-450 [facility] Comment on above: Result Comment: Canc elled via OM: Order edited - Discontinuing original order Performed By: #### L 100.0100, L500.2500 #### [facility] [address] [place], [address] RBC Normal 4.6-6.2 [facility] Comment on above: Result Comment: Canc elled via OM: Order edited - Discontinuing original order Performed By: #### L 100.0100, L500.2500 #### [facility] [address] [place], [address] RDW CV Normal 11.6-14.6 [facility] Comment on above: Result Comment: Canc elled via OM: Order edited - Discontinuing original order Performed By: #### L 100.0100, L500.2500 #### [facility] [address] [place], [address] RDW SD Normal 35.1-43.9 [facility] Comment on above: Result Comment: Canc elled via OM: Order edited - Discontinuing original order Performed By: #### L 100.0100, L500.2500 #### [facility] [address] [place], [address] WBC Normal 4.4-11.0 [facility] Comment on above: Result Comment: Canc elled via OM: Order edited - Discontinuing original order Performed By: #### L 100.0100, L500.2500 #### [facility] [address] [place], [address] Basic Metabolic Profile (BMP )on 04-10-2025 BUN Normal 4-19 [facility] Comment on above: Result Comment: Canc elled via OM: Order edited - Discontinuing original order Performed By: #### L 100.0100, L500.2500 #### [facility] [address] [place], [address] BUN/CRE Normal 10-20 [facility] Comment on above: Result Comment: Canc elled via OM: Order edited - Discontinuing original order Performed By: #### L 100.0100, L500.2500 #### [facility] [address] [place], [address] Calcium Normal 7.6-11.0 [facility] Comment on above: Result Comment: Canc elled via OM: Order edited - Discontinuing original order Performed By: #### L 100.0100, L500.2500 #### [facility] [address] [place], [address] CL Normal 98-108 [facility] Comment on above: Result Comment: Canc elled via OM: Order edited - Discontinuing original order Performed By: #### L 100.0100, L500.2500 #### [facility] [address] [place], [address] CO2 Normal 21.0-32.0 [facility] Comment on above: Result Comment: Canc elled via OM: Order edited - Discontinuing original order Performed By: #### L 100.0100, L500.2500 #### [facility] [address] [place], [address] CREAT,SERUM Normal 0.70-1.20 [facility] Comment on above: Result Comment: Canc elled via OM: Order edited - Discontinuing original order Performed By: #### L 100.0100, L500.2500 #### [facility] [address] [place], [address] eGFR Normal >60 [facility] Comment on above: Result Comment: Canc elled via OM: Order edited - Discontinuing original order Performed By: #### L 100.0100, L500.2500 #### [facility] [address] [place], [address] GAP Normal 5-15 [facility] Comment on above: Result Comment: Canc elled via OM: Order edited - Discontinuing original order Performed By: #### L 100.0100, L500.2500 #### [facility] [address] [place], [address] GLU Normal 70-99 [facility] Comment on above: Result Comment: Canc elled via OM: Order edited - Discontinuing original order Performed By: #### L 100.0100, L500.2500 #### [facility] [address] [place], [address] Potassium Normal 3.3-5.1 [facility] Comment on above: Result Comment: Canc elled via OM: Order edited - Discontinuing original order Performed By: #### L 100.0100, L500.2500 #### [facility] [address] [place], [address] Basic Metabolic Profile (BMP) Normal 133-145 [facility] Comment on above: Result Comment: Canc elled via OM: Order edited - Discontinuing original order Performed By: #### L 100.0100, L500.2500 #### [facility] [address] [place], [address] CBC W/Diff, Automatedon 12-0 -2024 Absolute Neut Normal 2.0-7.7 [facility] Comment on above: Result Comment: Canc elled via OM: Order edited - Discontinuing original order Performed By: #### L 100.0100, L500.2500 #### [facility] [address] [place], [address] HCT Normal 40-54 [facility] Comment on above: Result Comment: Canc elled via OM: Order edited - Discontinuing original order Performed By: #### L 100.0100, L500.2500 #### [facility] [address] [place], [address] HGB Normal 13.0-16.5 [facility] Comment on above: Result Comment: Canc elled via OM: Order edited - Discontinuing original order Performed By: #### L 100.0100, L500.2500 #### [facility] [address] [place], [address] MCH Normal 27.0-32.0 [facility] Comment on above: Result Comment: Canc elled via OM: Order edited - Discontinuing original order Performed By: #### L 100.0100, L500.2500 #### [facility] [address] [place], [address] MCHC Normal 32-36 [facility] Comment on above: Result Comment: Canc elled via OM: Order edited - Discontinuing original order Performed By: #### L 100.0100, L500.2500 #### [facility] [address] [place], [address] MCV Normal 80-94 [facility] Comment on above: Result Comment: Canc elled via OM: Order edited - Discontinuing original order Performed By: #### L 100.0100, L500.2500 #### [facility] [address] [place], [address] NEUT% Normal 47-70 [facility] Comment on above: Result Comment: Canc elled via OM: Order edited - Discontinuing original order Performed By: #### L 100.0100, L500.2500 #### [facility] [address] [place], [address] PLT Normal 150-450 [facility] Comment on above: Result Comment: Canc elled via OM: Order edited - Discontinuing original order Performed By: #### L 100.0100, L500.2500 #### [facility] [address] [place], [address] RBC Normal 4.6-6.2 [facility] Comment on above: Result Comment: Canc elled via OM: Order edited - Discontinuing original order Performed By: #### L 100.0100, L500.2500 #### [facility] [address] [place], [address] RDW CV Normal 11.6-14.6 [facility] Comment on above: Result Comment: Canc elled via OM: Order edited - Discontinuing original order Performed By: #### L 100.0100, L500.2500 #### [facility] [address] [place], [address] RDW SD Normal 35.1-43.9 [facility] Comment on above: Result Comment: Canc elled via OM: Order edited - Discontinuing original order Performed By: #### L 100.0100, L500.2500 #### [facility] [address] [place], [address] WBC Normal 4.4-11.0 [facility] Comment on above: Result Comment: Canc elled via OM: Order edited - Discontinuing original order Performed By: #### L 100.0100, L500.2500 #### [facility] [address] [place], [address] Basic Metabolic Profile (BMP )on 04-03-2025 BUN Normal 4-19 [facility] Comment on above: Result Comment: Canc elled via OM: Order edited - Discontinuing original order Performed By: #### L 506.1001, L500.4050, L501.9520, L501.9985, L100.0100 #### [facility] [address] [place], [address] BUN/CRE Normal 10-20 [facility] Comment on above: Result Comment: Canc elled via OM: Order edited - Discontinuing original order Performed By: #### L 506.1001, L500.4050, L501.9520, L501.9985, L100.0100 #### [facility] [address] [place], [address] Calcium Normal 7.6-11.0 [facility] Comment on above: Result Comment: Canc elled via OM: Order edited - Discontinuing original order Performed By: #### L 506.1001, L500.4050, L501.9520, L501.9985, L100.0100 #### [facility] [address] [place], [address] CL Normal 98-108 [facility] Comment on above: Result Comment: Canc elled via OM: Order edited - Discontinuing original order Performed By: #### L 506.1001, L500.4050, L501.9520, L501.9985, L100.0100 #### [facility] [address] [place], [address] CO2 Normal 21.0-32.0 [facility] Comment on above: Result Comment: Canc elled via OM: Order edited - Discontinuing original order Performed By: #### L 506.1001, L500.4050, L501.9520, L501.9985, L100.0100 #### [facility] [address] [place], [address] CREAT,SERUM Normal 0.70-1.20 [facility] Comment on above: Result Comment: Canc elled via OM: Order edited - Discontinuing original order Performed By: #### L 506.1001, L500.4050, L501.9520, L501.9985, L100.0100 #### [facility] [address] [place], [address] eGFR Normal >60 [facility] Comment on above: Result Comment: Canc elled via OM: Order edited - Discontinuing original order Performed By: #### L 506.1001, L500.4050, L501.9520, L501.9985, L100.0100 #### [facility] [address] [place], [address] GAP Normal 5-15 [facility] Comment on above: Result Comment: Canc elled via OM: Order edited - Discontinuing original order Performed By: #### L 506.1001, L500.4050, L501.9520, L501.9985, L100.0100 #### [facility] [address] [place], [address] GLU Normal 70-99 [facility] Comment on above: Result Comment: Canc elled via OM: Order edited - Discontinuing original order Performed By: #### L 506.1001, L500.4050, L501.9520, L501.9985, L100.0100 #### [facility] [address] [place], [address] Potassium Normal 3.3-5.1 [facility] Comment on above: Result Comment: Canc elled via OM: Order edited - Discontinuing original order Performed By: #### L 506.1001, L500.4050, L501.9520, L501.9985, L100.0100 #### [facility] [address] [place], [address] Basic Metabolic Profile (BMP) Normal 133-145 [facility] Comment on above: Result Comment: Canc elled via OM: Order edited - Discontinuing original order Performed By: #### L 506.1001, L500.4050, L501.9520, L501.9985, L100.0100 #### [facility] [address] [place], [address] CBC W/Diff, Automatedon 11-2 -2024 Absolute Neut Normal 2.0-7.7 [facility] Comment on above: Result Comment: Canc elled via OM: Order edited - Discontinuing original order Performed By: #### L 506.1001, L500.4050, L501.9520, L501.9985, L100.0100 #### [facility] [address] [place], [address] HCT Normal 40-54 [facility] Comment on above: Result Comment: Canc elled via OM: Order edited - Discontinuing original order Performed By: #### L 506.1001, L500.4050, L501.9520, L501.9985, L100.0100 #### [facility] [address] [place], [address] HGB Normal 13.0-16.5 [facility] Comment on above: Result Comment: Canc elled via OM: Order edited - Discontinuing original order Performed By: #### L 506.1001, L500.4050, L501.9520, L501.9985, L100.0100 #### [facility] [address] [place], [address] MCH Normal 27.0-32.0 [facility] Comment on above: Result Comment: Canc elled via OM: Order edited - Discontinuing original order Performed By: #### L 506.1001, L500.4050, L501.9520, L501.9985, L100.0100 #### [facility] [address] [place], [address] MCHC Normal 32-36 [facility] Comment on above: Result Comment: Canc elled via OM: Order edited - Discontinuing original order Performed By: #### L 506.1001, L500.4050, L501.9520, L501.9985, L100.0100 #### [facility] [address] [place], [address] MCV Normal 80-94 [facility] Comment on above: Result Comment: Canc elled via OM: Order edited - Discontinuing original order Performed By: #### L 506.1001, L500.4050, L501.9520, L501.9985, L100.0100 #### [facility] [address] [place], [address] NEUT% Normal 47-70 [facility] Comment on above: Result Comment: Canc elled via OM: Order edited - Discontinuing original order Performed By: #### L 506.1001, L500.4050, L501.9520, L501.9985, L100.0100 #### [facility] [address] [place], [address] PLT Normal 150-450 [facility] Comment on above: Result Comment: Canc elled via OM: Order edited - Discontinuing original order Performed By: #### L 506.1001, L500.4050, L501.9520, L501.9985, L100.0100 #### [facility] [address] [place], [address] RBC Normal 4.6-6.2 [facility] Comment on above: Result Comment: Canc elled via OM: Order edited - Discontinuing original order Performed By: #### L 506.1001, L500.4050, L501.9520, L501.9985, L100.0100 #### [facility] [address] [place], [address] RDW CV Normal 11.6-14.6 [facility] Comment on above: Result Comment: Canc elled via OM: Order edited - Discontinuing original order Performed By: #### L 506.1001, L500.4050, L501.9520, L501.9985, L100.0100 #### [facility] [address] [place], [address] RDW SD Normal 35.1-43.9 [facility] Comment on above: Result Comment: Canc elled via OM: Order edited - Discontinuing original order Performed By: #### L 506.1001, L500.4050, L501.9520, L501.9985, L100.0100 #### [facility] [address] [place], [address] WBC Normal 4.4-11.0 [facility] Comment on above: Result Comment: Canc elled via OM: Order edited - Discontinuing original order Performed By: #### L 506.1001, L500.4050, L501.9520, L501.9985, L100.0100 #### [facility] [address] [place], [address] Basic Metabolic Profile (BMP )on 03-27-2025 BUN Normal 4-19 [facility] Comment on above: Result Comment: Canc elled via OM: Order edited - Discontinuing original order Performed By: #### L 506.1001, L500.4050, L501.9520, L501.9985, L100.0100 #### [facility] [address] [place], [address] BUN/CRE Normal 10-20 [facility] Comment on above: Result Comment: Canc elled via OM: Order edited - Discontinuing original order Performed By: #### L 506.1001, L500.4050, L501.9520, L501.9985, L100.0100 #### [facility] [address] [place], [address] Calcium Normal 7.6-11.0 [facility] Comment on above: Result Comment: Canc elled via OM: Order edited - Discontinuing original order Performed By: #### L 506.1001, L500.4050, L501.9520, L501.9985, L100.0100 #### [facility] [address] [place], [address] CL Normal 98-108 [facility] Comment on above: Result Comment: Canc elled via OM: Order edited - Discontinuing original order Performed By: #### L 506.1001, L500.4050, L501.9520, L501.9985, L100.0100 #### [facility] [address] [place], [address] CO2 Normal 21.0-32.0 [facility] Comment on above: Result Comment: Canc elled via OM: Order edited - Discontinuing original order Performed By: #### L 506.1001, L500.4050, L501.9520, L501.9985, L100.0100 #### [facility] [address] [place], [address] CREAT,SERUM Normal 0.70-1.20 [facility] Comment on above: Result Comment: Can elled via OM: Order edited - Discontinuing original order Performed By: #### L 506.1001, L500.4050, L501.9520, L501.9985, L100.0100 #### [facility] [address] [place], [address] eGFR Normal >60 [facility] Comment on above: Result Comment: Can elled via OM: Order edited - Discontinuing original order Performed By: #### L 506.1001, L500.4050, L501.9520, L501.9985, L100.0100 #### [facility] [address] [place], [address] GAP Normal 5-15 [facility] Comment on above: Result Comment: Canc elled via OM: Order edited - Discontinuing original order Performed By: #### L 506.1001, L500.4050, L501.9520, L501.9985, L100.0100 #### [facility] [address] [place], [address] GLU Normal 70-99 [facility] Comment on above: Result Comment: Canc elled via OM: Order edited - Discontinuing original order Performed By: #### L 506.1001, L500.4050, L501.9520, L501.9985, L100.0100 #### [facility] [address] [place], [address] Potassium Normal 3.3-5.1 [facility] Comment on above: Result Comment: Canc elled via OM: Order edited - Discontinuing original order Performed By: #### L 506.1001, L500.4050, L501.9520, L501.9985, L100.0100 #### [facility] [address] [place], [address] Basic Metabolic Profile (BMP) Normal 133-145 [facility] Comment on above: Result Comment: Canc elled via OM: Order edited - Discontinuing original order Performed By: #### L 506.1001, L500.4050, L501.9520, L501.9985, L100.0100 #### [facility] [address] [place], [address] CBC W/Diff, Automatedon 11-2 Absolute Neut Normal 2.0-7.7 [facility] Comment on above: Result Comment: Canc elled via OM: Order edited - Discontinuing original order Performed By: #### L 506.1001, L500.4050, L501.9520, L501.9985, L100.0100 #### [facility] [address] [place], [address] HCT Normal 40-54 [facility] Comment on above: Result Comment: Canc elled via OM: Order edited - Discontinuing original order Performed By: #### L 506.1001, L500.4050, L501.9520, L501.9985, L100.0100 #### [facility] [address] [place], [address] HGB Normal 13.0-16.5 [facility] Comment on above: Result Comment: Canc elled via OM: Order edited - Discontinuing original order Performed By: #### L 506.1001, L500.4050, L501.9520, L501.9985, L100.0100 #### [facility] [address] [place], [address] MCH Normal 27.0-32.0 [facility] Comment on above: Result Comment: Canc elled via OM: Order edited - Discontinuing original order Performed By: #### L 506.1001, L500.4050, L501.9520, L501.9985, L100.0100 #### [facility] [address] [place], [address] MCHC Normal 32-36 [facility] Comment on above: Result Comment: Canc elled via OM: Order edited - Discontinuing original order Performed By: #### L 506.1001, L500.4050, L501.9520, L501.9985, L100.0100 #### [facility] [address] [place], [address] MCV Normal 80-94 [facility] Comment on above: Result Comment: Canc elled via OM: Order edited - Discontinuing original order Performed By: #### L 506.1001, L500.4050, L501.9520, L501.9985, L100.0100 #### [facility] [address] [place], [address] NEUT% Normal 47-70 [facility] Comment on above: Result Comment: Canc elled via OM: Order edited - Discontinuing original order Performed By: #### L 506.1001, L500.4050, L501.9520, L501.9985, L100.0100 #### [facility] [address] [place], [address] PLT Normal 150-450 [facility] Comment on above: Result Comment: Canc elled via OM: Order edited - Discontinuing original order Performed By: #### L 506.1001, L500.4050, L501.9520, L501.9985, L100.0100 #### [facility] [address] [place], [address] RBC Normal 4.6-6.2 [facility] Comment on above: Result Comment: Canc elled via OM: Order edited - Discontinuing original order Performed By: #### L 506.1001, L500.4050, L501.9520, L501.9985, L100.0100 #### [facility] [address] [place], [address] RDW CV Normal 11.6-14.6 [facility] Comment on above: Result Comment: Canc elled via OM: Order edited - Discontinuing original order Performed By: #### L 506.1001, L500.4050, L501.9520, L501.9985, L100.0100 #### [facility] [address] [place], [address] RDW SD Normal 35.1-43.9 [facility] Comment on above: Result Comment: Canc elled via OM: Order edited - Discontinuing original order Performed By: #### L 506.1001, L500.4050, L501.9520, L501.9985, L100.0100 #### [facility] [address] [place], [address] WBC Normal 4.4-11.0 [facility] Comment on above: Result Comment: Canc elled via OM: Order edited - Discontinuing original order Performed By: #### L 506.1001, L500.4050, L501.9520, L501.9985, L100.0100 #### [facility] [address] [place], [address] Basic Metabolic Profile (BMP )on 03-20-2025 BUN Normal 4-19 [facility] Comment on above: Result Comment: Canc elled via OM: Order edited - Discontinuing original order Performed By: #### L 100.0100, L500.2500 #### [facility] [address] [place], [address] BUN/CRE Normal 10-20 [facility] Comment on above: Result Comment: Canc elled via OM: Order edited - Discontinuing original order Performed By: #### L 100.0100, L500.2500 #### [facility] [address] [place], [address] Calcium Normal 7.6-11.0 [facility] Comment on above: Result Comment: Canc elled via OM: Order edited - Discontinuing original order Performed By: #### L 100.0100, L500.2500 #### [facility] [address] [place], [address] CL Normal 98-108 [facility] Comment on above: Result Comment: Canc elled via OM: Order edited - Discontinuing original order Performed By: #### L 100.0100, L500.2500 #### [facility] [address] [place], [address] CO2 Normal 21.0-32.0 [facility] Comment on above: Result Comment: Canc elled via OM: Order edited - Discontinuing original order Performed By: #### L 100.0100, L500.2500 #### [facility] [address] [place], [address] CREAT,SERUM Normal 0.70-1.20 [facility] Comment on above: Result Comment: Canc elled via OM: Order edited - Discontinuing original order Performed By: #### L 100.0100, L500.2500 #### [facility] [address] [place], [address] eGFR Normal >60 [facility] Comment on above: Result Comment: Canc elled via OM: Order edited - Discontinuing original order Performed By: #### L 100.0100, L500.2500 #### [facility] [address] [place], [address] GAP Normal 5-15 [facility] Comment on above: Result Comment: Canc elled via OM: Order edited - Discontinuing original order Performed By: #### L 100.0100, L500.2500 #### [facility] [address] [place], [address] GLU Normal 70-99 [facility] Comment on above: Result Comment: Canc elled via OM: Order edited - Discontinuing original order Performed By: #### L 100.0100, L500.2500 #### [facility] [address] [place], [address] Potassium Normal 3.3-5.1 [facility] Comment on above: Result Comment: Canc elled via OM: Order edited - Discontinuing original order Performed By: #### L 100.0100, L500.2500 #### [facility] [address] [place], [address] Basic Metabolic Profile (BMP) Normal 133-145 [facility] Comment on above: Result Comment: Canc elled via OM: Order edited - Discontinuing original order Performed By: #### L 100.0100, L500.2500 #### [facility] [address] [place], [address] CBC W/Diff, Automatedon 11- Absolute Neut Normal 2.0-7.7 [facility] Comment on above: Result Comment: Canc elled via OM: Order edited - Discontinuing original order Performed By: #### L 100.0100, L500.2500 #### [facility] [address] [place], [address] HCT Normal 40-54 [facility] Comment on above: Result Comment: Canc elled via OM: Order edited - Discontinuing original order Performed By: #### L 100.0100, L500.2500 #### [facility] [address] [place], [address] HGB Normal 13.0-16.5 [facility] Comment on above: Result Comment: Canc elled via OM: Order edited - Discontinuing original order Performed By: #### L 100.0100, L500.2500 #### [facility] [address] [place], [address] MCH Normal 27.0-32.0 [facility] Comment on above: Result Comment: Canc elled via OM: Order edited - Discontinuing original order Performed By: #### L 100.0100, L500.2500 #### [facility] [address] [place], [address] MCHC Normal 32-36 [facility] Comment on above: Result Comment: Canc elled via OM: Order edited - Discontinuing original order Performed By: #### L 100.0100, L500.2500 #### [facility] [address] [place], [address] MCV Normal 80-94 [facility] Comment on above: Result Comment: Canc elled via OM: Order edited - Discontinuing original order Performed By: #### L 100.0100, L500.2500 #### [facility] [address] [place], [address] NEUT% Normal 47-70 [facility] Comment on above: Result Comment: Canc elled via OM: Order edited - Discontinuing original order Performed By: #### L 100.0100, L500.2500 #### [facility] [address] [place], [address] PLT Normal 150-450 [facility] Comment on above: Result Comment: Canc elled via OM: Order edited - Discontinuing original order Performed By: #### L 100.0100, L500.2500 #### [facility] [address] [place], [address] RBC Normal 4.6-6.2 [facility] Comment on above: Result Comment: Canc elled via OM: Order edited - Discontinuing original order Performed By: #### L 100.0100, L500.2500 #### [facility] [address] [place], [address] RDW CV Normal 11.6-14.6 [facility] Comment on above: Result Comment: Canc elled via OM: Order edited - Discontinuing original order Performed By: #### L 100.0100, L500.2500 #### [facility] [address] [place], [address] RDW SD Normal 35.1-43.9 [facility] Comment on above: Result Comment: Canc elled via OM: Order edited - Discontinuing original order Performed By: #### L 100.0100, L500.2500 #### [facility] [address] [place], [address] WBC Normal 4.4-11.0 [facility] Comment on above: Result Comment: Canc elled via OM: Order edited - Discontinuing original order Performed By: #### L 100.0100, L500.2500 #### [facility] [address] [place], [address] Urine Cultureon 03-19-2025 URC Escherichia coli [place] Count 25,000-50,000 Escherichia coli: REACTION Ampicillin Islt [...] TMP SMX Islt BRENT <=20 S Normal [facility] Comment on above: Performed By: #### L 100.0100, L500.2500 #### [facility] [address] [place], [address] Urinalysis, Completeon 03-17 BACTERIA 3+ /hpf Normal None Seen [facility] Comment on above: Order Comment: USHA TER SPECIMEN Performed By: #### M 100.2200, L400.0001 #### [facility] [address] [place], [address] WBC 0-5 SEEN Normal 0-5 [facility] Comment on above: Order Comment: USHA TER SPECIMEN Performed By: #### M 100.2200, L400.0001 #### [facility] [address] [place], [address] EPI,SQUAMOUS 0 SEEN Normal 0-5 [facility] Comment on above: Order Comment: SUHA TER SPECIMEN Performed By: #### M 100.2200, L400.0001 #### [facility] [address] [place], [address] Mucus Ql (Urine sed) 0 SEEN Normal [facility] Comment on above: Order Comment: USHA TER SPECIMEN Performed By: #### M 100.2200, L400.0001 #### [facility] [address] [place], [address] RBC 0 SEEN Normal 0-5 [facility] Comment on above: Order Comment: USHA TER SPECIMEN Performed By: #### M 100.2200, L400.0001 #### [facility] [address] [place], [address] Basic Metabolic Profile (BMP )on 03-16-2025 BUN Normal 4-19 [facility] Comment on above: Result Comment: Canc elled via OM: Order Changed Performed By: #### L 100.0100, L500.2500 #### [facility] [address] [place], [address] BUN/CRE Normal 10-20 [facility] Comment on above: Result Comment: Canc elled via OM: Order Changed Performed By: #### L 100.0100, L500.2500 #### [facility] [address] [place], [address] Calcium Normal 7.6-11.0 [facility] Comment on above: Result Comment: Canc elled via OM: Order Changed Performed By: #### L 100.0100, L500.2500 #### [facility] [address] [place], [address] CL Normal 98-108 [facility] Comment on above: Result Comment: Canc elled via OM: Order Changed Performed By: #### L 100.0100, L500.2500 #### [facility] [address] [place], [address] CO2 Normal 21.0-32.0 [facility] Comment on above: Result Comment: Canc elled via OM: Order Changed Performed By: #### L 100.0100, L500.2500 #### [facility] [address] [place], [address] CREAT,SERUM Normal 0.70-1.20 [facility] Comment on above: Result Comment: Canc elled via OM: Order Changed Performed By: #### L 100.0100, L500.2500 #### [facility] [address] [place], [address] eGFR Normal >60 [facility] Comment on above: Result Comment: Canc elled via OM: Order Changed Performed By: #### L 100.0100, L500.2500 #### [facility] [address] [place], [address] GAP Normal 5-15 [facility] Comment on above: Result Comment: Canc elled via OM: Order Changed Performed By: #### L 100.0100, L500.2500 #### [facility] [address] [place], [address] GLU Normal 70-99 [facility] Comment on above: Result Comment: Canc elled via OM: Order Changed Performed By: #### L 100.0100, L500.2500 #### [facility] [address] [place], [address] Potassium Normal 3.3-5.1 [facility] Comment on above: Result Comment: Canc elled via OM: Order Changed Performed By: #### L 100.0100, L500.2500 #### [facility] [address] [place], [address] Basic Metabolic Profile (BMP) Normal 133-145 [facility] Comment on above: Result Comment: Canc elled via OM: Order Changed Performed By: #### L 100.0100, L500.2500 #### [facility] [address] [place], [address] CBC W/Diff, Automatedon 11-1 0-2024 Absolute Neut Normal 2.0-7.7 [facility] Comment on above: Result Comment: Canc elled via OM: Order Changed Performed By: #### L 100.0100, L500.2500 #### [facility] [address] [place], [address] HCT Normal 40-54 [facility] Comment on above: Result Comment: Canc elled via OM: Order Changed Performed By: #### L 100.0100, L500.2500 #### [facility] [address] [place], [address] HGB Normal 13.0-16.5 [facility] Comment on above: Result Comment: Canc elled via OM: Order Changed Performed By: #### L 100.0100, L500.2500 #### [facility] [address] [place], [address] MCH Normal 27.0-32.0 [facility] Comment on above: Result Comment: Canc elled via OM: Order Changed Performed By: #### L 100.0100, L500.2500 #### [facility] [address] [place], [address] MCHC Normal 32-36 [facility] Comment on above: Result Comment: Canc elled via OM: Order Changed Performed By: #### L 100.0100, L500.2500 #### [facility] [address] [place], [address] MCV Normal 80-94 [facility] Comment on above: Result Comment: Canc elled via OM: Order Changed Performed By: #### L 100.0100, L500.2500 #### [facility] [address] [place], [address] NEUT% Normal 47-70 [facility] Comment on above: Result Comment: Canc elled via OM: Order Changed Performed By: #### L 100.0100, L500.2500 #### [facility] [address] [place], [address] PLT Normal 150-450 [facility] Comment on above: Result Comment: Canc elled via OM: Order Changed Performed By: #### L 100.0100, L500.2500 #### [facility] [address] [place], [address] RBC Normal 4.6-6.2 [facility] Comment on above: Result Comment: Canc elled via OM: Order Changed Performed By: #### L 100.0100, L500.2500 #### [facility] [address] [place], [address] RDW CV Normal 11.6-14.6 [facility] Comment on above: Result Comment: Canc elled via OM: Order Changed Performed By: #### L 100.0100, L500.2500 #### [facility] [address] [place], [address] RDW SD Normal 35.1-43.9 [facility] Comment on above: Result Comment: Canc elled via OM: Order Changed Performed By: #### L 100.0100, L500.2500 #### [facility] [address] [place], [address] WBC Normal 4.4-11.0 [facility] Comment on above: Result Comment: Canc elled via OM: Order Changed Performed By: #### L 100.0100, L500.2500 #### [facility] [address] [place], [address] Basic Metabolic Profile (BMP )on 03-15-2025 BUN Normal 4-19 [facility] Comment on above: Result Comment: Canc elled via OM: Order Changed Performed By: #### L 100.0100, L500.2500 #### [facility] [address] [place], [address] BUN/CRE Normal 10-20 [facility] Comment on above: Result Comment: Canc elled via OM: Order Changed Performed By: #### L 100.0100, L500.2500 #### [facility] [address] [place], [address] Calcium Normal 7.6-11.0 [facility] Comment on above: Result Comment: Canc elled via OM: Order Changed Performed By: #### L 100.0100, L500.2500 #### [facility] [address] [place], [address] CL Normal 98-108 [facility] Comment on above: Result Comment: Canc elled via OM: Order Changed Performed By: #### L 100.0100, L500.2500 #### [facility] [address] [place], [address] CO2 Normal 21.0-32.0 [facility] Comment on above: Result Comment: Canc elled via OM: Order Changed Performed By: #### L 100.0100, L500.2500 #### [facility] [address] [place], [address] CREAT,SERUM Normal 0.70-1.20 [facility] Comment on above: Result Comment: Canc elled via OM: Order Changed Performed By: #### L 100.0100, L500.2500 #### [facility] [address] [place], [address] eGFR Normal >60 [facility] Comment on above: Result Comment: Canc elled via OM: Order Changed Performed By: #### L 100.0100, L500.2500 #### [facility] [address] [place], [address] GAP Normal 5-15 [facility] Comment on above: Result Comment: Canc elled via OM: Order Changed Performed By: #### L 100.0100, L500.2500 #### [facility] [address] [place], [address] GLU Normal 70-99 [facility] Comment on above: Result Comment: Canc elled via OM: Order Changed Performed By: #### L 100.0100, L500.2500 #### [facility] [address] [place], [address] Potassium Normal 3.3-5.1 [facility] Comment on above: Result Comment: Canc elled via OM: Order Changed Performed By: #### L 100.0100, L500.2500 #### [facility] [address] [place], [address] Basic Metabolic Profile (BMP) Normal 133-145 [facility] Comment on above: Result Comment: Canc elled via OM: Order Changed Performed By: #### L 100.0100, L500.2500 #### [facility] [address] [place], [address] CBC W/Diff, Automatedon 11-0 -2024 Absolute Neut Normal 2.0-7.7 [facility] Comment on above: Result Comment: Canc elled via OM: Order Changed Performed By: #### L 100.0100, L500.2500 #### [facility] [address] [place], [address] HCT Normal 40-54 [facility] Comment on above: Result Comment: Canc elled via OM: Order Changed Performed By: #### L 100.0100, L500.2500 #### [facility] [address] [place], [address] HGB Normal 13.0-16.5 [facility] Comment on above: Result Comment: Canc elled via OM: Order Changed Performed By: #### L 100.0100, L500.2500 #### [facility] [address] [place], [address] MCH Normal 27.0-32.0 [facility] Comment on above: Result Comment: Canc elled via OM: Order Changed Performed By: #### L 100.0100, L500.2500 #### [facility] [address] [place], [address] MCHC Normal 32-36 [facility] Comment on above: Result Comment: Canc elled via OM: Order Changed Performed By: #### L 100.0100, L500.2500 #### [facility] [address] [place], [address] MCV Normal 80-94 [facility] Comment on above: Result Comment: Canc elled via OM: Order Changed Performed By: #### L 100.0100, L500.2500 #### [facility] [address] [place], [address] NEUT% Normal 47-70 [facility] Comment on above: Result Comment: Canc elled via OM: Order Changed Performed By: #### L 100.0100, L500.2500 #### [facility] [address] [place], [address] PLT Normal 150-450 [facility] Comment on above: Result Comment: Canc elled via OM: Order Changed Performed By: #### L 100.0100, L500.2500 #### [facility] [address] [place], [address] RBC Normal 4.6-6.2 [facility] Comment on above: Result Comment: Canc elled via OM: Order Changed Performed By: #### L 100.0100, L500.2500 #### [facility] [address] [place], [address] RDW CV Normal 11.6-14.6 [facility] Comment on above: Result Comment: Canc elled via OM: Order Changed Performed By: #### L 100.0100, L500.2500 #### [facility] [address] [place], [address] RDW SD Normal 35.1-43.9 [facility] Comment on above: Result Comment: Canc elled via OM: Order Changed Performed By: #### L 100.0100, L500.2500 #### [facility] [address] [place], [address] WBC Normal 4.4-11.0 [facility] Comment on above: Result Comment: Canc elled via OM: Order Changed Performed By: #### L 100.0100, L500.2500 #### [facility] [address] [place], [address] Basic Metabolic Profile (BMP )on 03-14-2025 BUN Normal 4-19 [facility] Comment on above: Result Comment: Canc elled via OM: Order Changed Performed By: #### L 100.0100, L500.2500 #### [facility] [address] [place], [address] BUN/CRE Normal 10-20 [facility] Comment on above: Result Comment: Canc elled via OM: Order Changed Performed By: #### L 100.0100, L500.2500 #### [facility] [address] [place], [address] Calcium Normal 7.6-11.0 [facility] Comment on above: Result Comment: Canc elled via OM: Order Changed Performed By: #### L 100.0100, L500.2500 #### [facility] [address] [place], [address] CL Normal 98-108 [facility] Comment on above: Result Comment: Canc elled via OM: Order Changed Performed By: #### L 100.0100, L500.2500 #### [facility] [address] [place], [address] CO2 Normal 21.0-32.0 [facility] Comment on above: Result Comment: Canc elled via OM: Order Changed Performed By: #### L 100.0100, L500.2500 #### [facility] [address] [place], [address] CREAT,SERUM Normal 0.70-1.20 [facility] Comment on above: Result Comment: Canc elled via OM: Order Changed Performed By: #### L 100.0100, L500.2500 #### [facility] [address] [place], [address] eGFR Normal >60 [facility] Comment on above: Result Comment: Canc elled via OM: Order Changed Performed By: #### L 100.0100, L500.2500 #### [facility] [address] [place], [address] GAP Normal 5-15 [facility] Comment on above: Result Comment: Canc elled via OM: Order Changed Performed By: #### L 100.0100, L500.2500 #### [facility] [address] [place], [address] GLU Normal 70-99 [facility] Comment on above: Result Comment: Canc elled via OM: Order Changed Performed By: #### L 100.0100, L500.2500 #### [facility] [address] [place], [address] Potassium Normal 3.3-5.1 [facility] Comment on above: Result Comment: Canc elled via OM: Order Changed Performed By: #### L 100.0100, L500.2500 #### [facility] [address] [place], [address] Basic Metabolic Profile (BMP) Normal 133-145 [facility] Comment on above: Result Comment: Canc elled via OM: Order Changed Performed By: #### L 100.0100, L500.2500 #### [facility] [address] [place], [address] CBC W/Diff, Automatedon 11-0 Absolute Neut Normal 2.0-7.7 [facility] Comment on above: Result Comment: Canc elled via OM: Order Changed Performed By: #### L 100.0100, L500.2500 #### [facility] [address] [place], [address] HCT Normal 40-54 [facility] Comment on above: Result Comment: Canc elled via OM: Order Changed Performed By: #### L 100.0100, L500.2500 #### [facility] [address] [place], [address] HGB Normal 13.0-16.5 [facility] Comment on above: Result Comment: Canc elled via OM: Order Changed Performed By: #### L 100.0100, L500.2500 #### [facility] [address] [place], [address] MCH Normal 27.0-32.0 [facility] Comment on above: Result Comment: Canc elled via OM: Order Changed Performed By: #### L 100.0100, L500.2500 #### [facility] [address] [place], [address] MCHC Normal 32-36 [facility] Comment on above: Result Comment: Canc elled via OM: Order Changed Performed By: #### L 100.0100, L500.2500 #### [facility] [address] [place], [address] MCV Normal 80-94 [facility] Comment on above: Result Comment: Canc elled via OM: Order Changed Performed By: #### L 100.0100, L500.2500 #### [facility] [address] [place], [address] NEUT% Normal 47-70 [facility] Comment on above: Result Comment: Canc elled via OM: Order Changed Performed By: #### L 100.0100, L500.2500 #### [facility] [address] [place], [address] PLT Normal 150-450 [facility] Comment on above: Result Comment: Canc elled via OM: Order Changed Performed By: #### L 100.0100, L500.2500 #### [facility] [address] [place], [address] RBC Normal 4.6-6.2 [facility] Comment on above: Result Comment: Canc elled via OM: Order Changed Performed By: #### L 100.0100, L500.2500 #### [facility] [address] [place], [address] RDW CV Normal 11.6-14.6 [facility] Comment on above: Result Comment: Canc elled via OM: Order Changed Performed By: #### L 100.0100, L500.2500 #### [facility] [address] [place], [address] RDW SD Normal 35.1-43.9 [facility] Comment on above: Result Comment: Canc elled via OM: Order Changed Performed By: #### L 100.0100, L500.2500 #### [facility] [address] [place], [address] WBC Normal 4.4-11.0 [facility] Comment on above: Result Comment: Canc elled via OM: Order Changed Performed By: #### L 100.0100, L500.2500 #### [facility] [address] [place], [address] Absolute lymphocyte countOrd ered By: Rey Henao on 03-13-2025 Lymphocytes Auto (Unsp spec) [#/Vol] 1.29 10*3/uL 0.83-4.51 [facility] Absolute neutrophil countOrd ered By: Rey Henao on 03-13-2025 Neutrophils (Bld) [#/Vol] 6.5 10*3/uL 2.0-7.7 [facility] Anion gap in Serum or Plasma Ordered By: Rey Henao on 03-13-2025 Anion gap [Moles/Vol] 9 mmol/L 5-15 [facility] Automated lymphocyte count a s percentage of total leukocytesOrdered By: Rey Henao on 03-13-2025 Lymphocytes/100 WBC Auto (Unsp spec) 13.7 % Low 19-41 [facility] Basic Metabolic Profile (BMP )on 03-13-2025 BUN/CRE 43.2 RATIO High 10-20 [facility] Comment on above: Performed By: #### L 506.1001, L500.4050, L501.9520, L501.9985, L100.0100 #### [facility] [address] [place], [address] Calcium [Mass/Vol] 8.6 mg/dL Normal 7.6-11.0 [facility] Comment on above: Performed By: #### L 506.1001, L500.4050, L501.9520, L501.9985, L100.0100 #### [facility] [address] [place], [address] Chloride [Moles/Vol] 101 mmol/L Normal 98-108 [facility] Comment on above: Performed By: #### L 506.1001, L500.4050, L501.9520, L501.9985, L100.0100 #### [facility] [address] [place], [address] CO2 [Moles/Vol] 23.0 mmol/L Normal 21.0-32.0 [facility] Comment on above: Performed By: #### L 506.1001, L500.4050, L501.9520, L501.9985, L100.0100 #### [facility] [address] [place], [address] Creatinine [Mass/Vol] 0.37 mg/dL Low 0.70-1.20 [facility] Comment on above: Performed By: #### L 506.1001, L500.4050, L501.9520, L501.9985, L100.0100 #### [facility] [address] [place], [address] ECRCL 59.81 ml/min Normal 50-250 [facility] Comment on above: Performed By: #### L 506.1001, L500.4050, L501.9520, L501.9985, L100.0100 #### [facility] [address] [place], [address] GAP 9 Normal 5-15 [facility] Comment on above: Performed By: #### L 506.1001, L500.4050, L501.9520, L501.9985, L100.0100 #### [facility] [address] [place], [address] GFR/1.73 sq M.predicted among non-blacks MDRD (S/P/Bld) [Vol rate/Area] 109 mL/min/{1.73_m2} Normal >60 [facility] Comment on above: Result Comment: mL/m in/1.73m2 CKD-EPI Creatinine Equation (2020) Performed By: #### L 506.1001, L500.4050, L501.9520, L501.9985, L100.0100 #### [facility] [address] [place], [address] Glucose [Mass/Vol] 129 mg/dL High 70-99 [facility] Comment on above: Performed By: #### L 506.1001, L500.4050, L501.9520, L501.9985, L100.0100 #### [facility] [address] [place], [address] Potassium [Moles/Vol] 4.2 mmol/L Normal 3.3-5.1 [facility] Comment on above: Performed By: #### L 506.1001, L500.4050, L501.9520, L501.9985, L100.0100 #### [facility] [address] [place], [address] Sodium [Moles/Vol] 132 mmol/L Low 133-145 [facility] Comment on above: Performed By: #### L 506.1001, L500.4050, L501.9520, L501.9985, L100.0100 #### [facility] [address] [place], [address] Urea nitrogen [Mass/Vol] 16 mg/dL Normal 4-19 [facility] Comment on above: Performed By: #### L 506.1001, L500.4050, L501.9520, L501.9985, L100.0100 #### [facility] [address] [place], [address] BUN Normal 4-19 [facility] Comment on above: Result Comment: Canc elled via OM: Order edited - Discontinuing original order Performed By: #### L 100.0100, L500.2500 #### [facility] [address] [place], [address] BUN/CRE Normal 10-20 [facility] Comment on above: Result Comment: Canc elled via OM: Order edited - Discontinuing original order Performed By: #### L 100.0100, L500.2500 #### [facility] [address] [place], [address] Calcium Normal 7.6-11.0 [facility] Comment on above: Result Comment: Canc elled via OM: Order edited - Discontinuing original order Performed By: #### L 100.0100, L500.2500 #### [facility] [address] [place], [address] CL Normal 98-108 [facility] Comment on above: Result Comment: Canc elled via OM: Order edited - Discontinuing original order Performed By: #### L 100.0100, L500.2500 #### [facility] [address] [place], [address] CO2 Normal 21.0-32.0 [facility] Comment on above: Result Comment: Canc elled via OM: Order edited - Discontinuing original order Performed By: #### L 100.0100, L500.2500 #### [facility] [address] [place], [address] CREAT,SERUM Normal 0.70-1.20 [facility] Comment on above: Result Comment: Canc elled via OM: Order edited - Discontinuing original order Performed By: #### L 100.0100, L500.2500 #### [facility] [address] [place], [address] eGFR Normal >60 [facility] Comment on above: Result Comment: Canc elled via OM: Order edited - Discontinuing original order Performed By: #### L 100.0100, L500.2500 #### [facility] [address] [place], [address] GAP Normal 5-15 [facility] Comment on above: Result Comment: Canc elled via OM: Order edited - Discontinuing original order Performed By: #### L 100.0100, L500.2500 #### [facility] [address] [place], [address] GLU Normal 70-99 [facility] Comment on above: Result Comment: Canc elled via OM: Order edited - Discontinuing original order Performed By: #### L 100.0100, L500.2500 #### [facility] [address] [place], [address] Potassium Normal 3.3-5.1 [facility] Comment on above: Result Comment: Canc elled via OM: Order edited - Discontinuing original order Performed By: #### L 100.0100, L500.2500 #### [facility] [address] [place], [address] Basic Metabolic Profile (BMP) Normal 133-145 [facility] Comment on above: Result Comment: Canc elled via OM: Order edited - Discontinuing original order Performed By: #### L 100.0100, L500.2500 #### [facility] [address] [place], [address] BUN Normal 4-19 [facility] Comment on above: Result Comment: Canc elled via OM: Order Changed Performed By: #### L 100.0100, L500.2500 #### [facility] [address] [place], [address] BUN/CRE Normal 10-20 [facility] Comment on above: Result Comment: Canc elled via OM: Order Changed Performed By: #### L 100.0100, L500.2500 #### [facility] [address] [place], [address] Calcium Normal 7.6-11.0 [facility] Comment on above: Result Comment: Canc elled via OM: Order Changed Performed By: #### L 100.0100, L500.2500 #### [facility] [address] [place], [address] CL Normal 98-108 [facility] Comment on above: Result Comment: Canc elled via OM: Order Changed Performed By: #### L 100.0100, L500.2500 #### [facility] [address] [place], [address] CO2 Normal 21.0-32.0 [facility] Comment on above: Result Comment: Canc elled via OM: Order Changed Performed By: #### L 100.0100, L500.2500 #### [facility] [address] [place], [address] CREAT,SERUM Normal 0.70-1.20 [facility] Comment on above: Result Comment: Canc elled via OM: Order Changed Performed By: #### L 100.0100, L500.2500 #### [facility] [address] [place], [address] eGFR Normal >60 [facility] Comment on above: Result Comment: Canc elled via OM: Order Changed Performed By: #### L 100.0100, L500.2500 #### [facility] [address] [place], [address] GAP Normal 5-15 [facility] Comment on above: Result Comment: Canc elled via OM: Order Changed Performed By: #### L 100.0100, L500.2500 #### [facility] [address] [place], [address] GLU Normal 70-99 [facility] Comment on above: Result Comment: Canc elled via OM: Order Changed Performed By: #### L 100.0100, L500.2500 #### [facility] [address] [place], [address] Potassium Normal 3.3-5.1 [facility] Comment on above: Result Comment: Canc elled via OM: Order Changed Performed By: #### L 100.0100, L500.2500 #### [facility] [address] [place], [address] Basic Metabolic Profile (BMP) Normal 133-145 [facility] Comment on above: Result Comment: Canc elled via OM: Order Changed Performed By: #### L 100.0100, L500.2500 #### [facility] [address] [place], [address] Basophil percentageOrdered B y: Rey Henao on 03-13-2025 Basophils/100 WBC (Bld) 0.4 % 0-1 [facility] Blood urea nitrogen (BUN)/cr eatinine ratioOrdered By: Rey Henao on 03-13-2025 Urea nitrogen/Creatinine [Mass ratio] 43.2 mg/mg High 10-20 [facility] CBC W/Diff, Automatedon -0 Absolute Neut Normal 2.0-7.7 [facility] Comment on above: Result Comment: Canc elled via OM: Order edited - Discontinuing original order Performed By: #### L 100.0100, L500.2500 #### [facility] [address] [place], [address] HCT Normal 40-54 [facility] Comment on above: Result Comment: Canc elled via OM: Order edited - Discontinuing original order Performed By: #### L 100.0100, L500.2500 #### [facility] [address] [place], [address] HGB Normal 13.0-16.5 [facility] Comment on above: Result Comment: Canc elled via OM: Order edited - Discontinuing original order Performed By: #### L 100.0100, L500.2500 #### [facility] [address] [place], [address] MCH Normal 27.0-32.0 [facility] Comment on above: Result Comment: Canc elled via OM: Order edited - Discontinuing original order Performed By: #### L 100.0100, L500.2500 #### [facility] [address] [place], [address] MCHC Normal 32-36 [facility] Comment on above: Result Comment: Canc elled via OM: Order edited - Discontinuing original order Performed By: #### L 100.0100, L500.2500 #### [facility] [address] [place], [address] MCV Normal 80-94 [facility] Comment on above: Result Comment: Canc elled via OM: Order edited - Discontinuing original order Performed By: #### L 100.0100, L500.2500 #### [facility] [address] [place], [address] NEUT% Normal 47-70 [facility] Comment on above: Result Comment: Canc elled via OM: Order edited - Discontinuing original order Performed By: #### L 100.0100, L500.2500 #### [facility] [address] [place], [address] PLT Normal 150-450 [facility] Comment on above: Result Comment: Canc elled via OM: Order edited - Discontinuing original order Performed By: #### L 100.0100, L500.2500 #### [facility] [address] [place], [address] RBC Normal 4.6-6.2 [facility] Comment on above: Result Comment: Canc elled via OM: Order edited - Discontinuing original order Performed By: #### L 100.0100, L500.2500 #### [facility] [address] [place], [address] RDW CV Normal 11.6-14.6 [facility] Comment on above: Result Comment: Canc elled via OM: Order edited - Discontinuing original order Performed By: #### L 100.0100, L500.2500 #### [facility] [address] [place], [address] RDW SD Normal 35.1-43.9 [facility] Comment on above: Result Comment: Canc elled via OM: Order edited - Discontinuing original order Performed By: #### L 100.0100, L500.2500 #### [facility] [address] [place], [address] WBC Normal 4.4-11.0 [facility] Comment on above: Result Comment: Canc elled via OM: Order edited - Discontinuing original order Performed By: #### L 100.0100, L500.2500 #### [facility] [address] [place], [address] Absolute Lymph 1.29 X10 3/uL Normal 0.83-4.51 [facility] Comment on above: Performed By: #### L 506.1001, L500.4050, L501.9520, L501.9985, L100.0100 #### [facility] [address] [place], [address] Absolute Neut 6.5 X10 3/uL Normal 2.0-7.7 [facility] Comment on above: Performed By: #### L 506.1001, L500.4050, L501.9520, L501.9985, L100.0100 #### [facility] [address] [place], [address] Basophils/100 WBC (Bld) 0.4 % Normal 0-1 [facility] Comment on above: Performed By: #### L 506.1001, L500.4050, L501.9520, L501.9985, L100.0100 #### [facility] [address] [place], [address] Eosinophils/100 WBC (Bld) 2.2 % Normal 0-5 [facility] Comment on above: Performed By: #### L 506.1001, L500.4050, L501.9520, L501.9985, L100.0100 #### [facility] [address] [place], [address] Erythrocyte distribution width (RBC) [Ratio] 12.7 % Normal 11.6-14.6 [facility] Comment on above: Performed By: #### L 506.1001, L500.4050, L501.9520, L501.9985, L100.0100 #### [facility] [address] [place], [address] Hematocrit (Bld) [Volume fraction] 33.6 % Low 40-54 [facility] Comment on above: Performed By: #### L 506.1001, L500.4050, L501.9520, L501.9985, L100.0100 #### [facility] [address] [place], [address] Hemoglobin (Bld) [Mass/Vol] 11.6 g/dL Low 13.0-16.5 [facility] Comment on above: Performed By: #### L 506.1001, L500.4050, L501.9520, L501.9985, L100.0100 #### [facility] [address] [place], [address] IG% 0.300 Normal 0.0-0.9 [facility] Comment on above: Result Comment: IG% - Immature Granulocytes (promyelocytes, myelocytes and metamyelocytes) > 1% indicates that a LEFT SHIFT is Present. Performed By: #### L 506.1001, L500.4050, L501.9520, L501.9985, L100.0100 #### [facility] [address] [place], [address] Lymphocytes/100 WBC (Bld) 13.7 % Low 19-41 [facility] Comment on above: Performed By: #### L 506.1001, L500.4050, L501.9520, L501.9985, L100.0100 #### [facility] [address] [place], [address] MCH (RBC) [Entitic mass] 31.8 pg Normal 27.0-32.0 [facility] Comment on above: Performed By: #### L 506.1001, L500.4050, L501.9520, L501.9985, L100.0100 #### [facility] [address] [place], [address] MCHC (RBC) [Mass/Vol] 34.5 g/dL Normal 32-36 [facility] Comment on above: Performed By: #### L 506.1001, L500.4050, L501.9520, L501.9985, L100.0100 #### [facility] [address] [place], [address] MCV (RBC) [Entitic vol] 92.1 fL Normal 80-94 [facility] Comment on above: Performed By: #### L 506.1001, L500.4050, L501.9520, L501.9985, L100.0100 #### [facility] [address] [place], [address] Monocytes/100 WBC (Bld) 14.3 % High 0-10 [facility] Comment on above: Performed By: #### L 506.1001, L500.4050, L501.9520, L501.9985, L100.0100 #### [facility] [address] [place], [address] Neutrophils/100 WBC (Bld) 69.1 % Normal 47-70 [facility] Comment on above: Performed By: #### L 506.1001, L500.4050, L501.9520, L501.9985, L100.0100 #### [facility] [address] [place], [address] Nucleated RBC (Bld) [#/Vol] 0 10*3/uL Normal 0-5 [facility] Comment on above: Performed By: #### L 506.1001, L500.4050, L501.9520, L501.9985, L100.0100 #### [facility] [address] [place], [address] Platelet mean volume (Bld) [Entitic vol] 10.4 fL Normal 6.2-12.0 [facility] Comment on above: Performed By: #### L 506.1001, L500.4050, L501.9520, L501.9985, L100.0100 #### [facility] [address] [place], [address] Platelets (Bld) [#/Vol] 240 10*3/uL Normal 150-450 [facility] Comment on above: Performed By: #### L 506.1001, L500.4050, L501.9520, L501.9985, L100.0100 #### [facility] [address] [place], [address] RBC (Bld) [#/Vol] 3.65 10*6/uL Low 4.6-6.2 [facility] Comment on above: Performed By: #### L 506.1001, L500.4050, L501.9520, L501.9985, L100.0100 #### [facility] [address] [place], [address] RDW SD 43.3 fl Normal 35.1-43.9 [facility] Comment on above: Performed By: #### L 506.1001, L500.4050, L501.9520, L501.9985, L100.0100 #### [facility] [address] [place], [address] WBC (Bld) [#/Vol] 9.5 10*3/uL Normal 4.4-11.0 [facility] Comment on above: Performed By: #### L 506.1001, L500.4050, L501.9520, L501.9985, L100.0100 #### [facility] [address] [place], [address] Absolute Neut Normal 2.0-7.7 [facility] Comment on above: Result Comment: Canc elled via OM: Order Changed Performed By: #### L 100.0100, L500.2500 #### [facility] [address] [place], [address] HCT Normal 40-54 [facility] Comment on above: Result Comment: Canc elled via OM: Order Changed Performed By: #### L 100.0100, L500.2500 #### [facility] [address] [place], [address] HGB Normal 13.0-16.5 [facility] Comment on above: Result Comment: Canc elled via OM: Order Changed Performed By: #### L 100.0100, L500.2500 #### [facility] [address] [place], [address] MCH Normal 27.0-32.0 [facility] Comment on above: Result Comment: Canc elled via OM: Order Changed Performed By: #### L 100.0100, L500.2500 #### [facility] [address] [place], [address] MCHC Normal 32-36 [facility] Comment on above: Result Comment: Canc elled via OM: Order Changed Performed By: #### L 100.0100, L500.2500 #### [facility] [address] [place], [address] MCV Normal 80-94 [facility] Comment on above: Result Comment: Canc elled via OM: Order Changed Performed By: #### L 100.0100, L500.2500 #### [facility] [address] [place], [address] NEUT% Normal 47-70 [facility] Comment on above: Result Comment: Canc elled via OM: Order Changed Performed By: #### L 100.0100, L500.2500 #### [facility] [address] [place], [address] PLT Normal 150-450 [facility] Comment on above: Result Comment: Canc elled via OM: Order Changed Performed By: #### L 100.0100, L500.2500 #### [facility] [address] [place], [address] RBC Normal 4.6-6.2 [facility] Comment on above: Result Comment: Canc elled via OM: Order Changed Performed By: #### L 100.0100, L500.2500 #### [facility] [address] [place], [address] RDW CV Normal 11.6-14.6 [facility] Comment on above: Result Comment: Canc elled via OM: Order Changed Performed By: #### L 100.0100, L500.2500 #### [facility] [address] [place], [address] RDW SD Normal 35.1-43.9 [facility] Comment on above: Result Comment: Canc elled via OM: Order Changed Performed By: #### L 100.0100, L500.2500 #### [facility] [address] [place], [address] WBC Normal 4.4-11.0 [facility] Comment on above: Result Comment: Canc elled via OM: Order Changed Performed By: #### L 100.0100, L500.2500 #### [facility] [address] [place], [address] Carbon dioxide measurementOr dered By: Rey Henao on 03-13-2025 CO2 [Moles/Vol] 23.0 mmol/L 21.0-32.0 [facility] Chloride assayOrdered By: Andrews Henao on 03-13-2025 Chloride [Moles/Vol] 101 mmol/L 98-108 [facility] Eosinophil percentageOrdered By: Rey Henao on 03-13-2025 Eosinophils/100 WBC (Bld) 2.2 % 0-5 [facility] Erythrocyte distribution wid th ratioOrdered By: Rey Henao on 03-13-2025 Erythrocyte distribution width (RBC) [Ratio] 12.7 % 11.6-14.6 [facility] Erythrocyte distribution wid th standard deviationOrdered By: Rey Henao on 03-13-2025 Erythrocyte distribution width (RBC) [Ratio] 43.3 fl 35.1-43.9 [facility] Glomerular filtration rate ( GFR) estimation/1.73 sq m using serum, plasma, or whole bOrdered By: Rey Henao on 03-13-2025 GFR/1.73 sq M.predicted among non-blacks MDRD (S/P/Bld) [Vol rate/Area] 109 mL/min/{1.73_m2} >60 [facility] Comment on above: mL/min/1.73m2 CKD-EP I Creatinine Equation (2020) Hematocrit Auto (Bld) [Volum e fraction]Ordered By: Rey Henao on 03-13-2025 Hematocrit (Bld) [Volume fraction] 33.6 % Low 40-54 [facility] Hemoglobin measurementOrdere d By: Rey Henao on 03-13-2025 Hemoglobin (Bld) [Mass/Vol] 11.6 g/dL Low 13.0-16.5 [facility] Immature granulocytes/100 WB C Auto (Bld)Ordered By: Rey Henao on 03-13-2025 Immature granulocytes/100 WBC (Bld) 0.300 % 0.0-0.9 [facility] Comment on above: IG% - Immature Granu locytes (promyelocytes, myelocytes and metamyelocytes) > 1% indicates that a LEFT SHIFT is Present. MCV (mean corpuscular volume ) determinationOrdered By: Rey Henao on 03-13-2025 MCV (RBC) [Entitic vol] 92.1 fL 80-94 [facility] Mean corpuscular hemoglobin (MCH) determinationOrdered By: Rey Henao 03-13-2025 MCH (RBC) [Entitic mass] 31.8 pg 27.0-32.0 [facility] Mean corpuscular hemoglobin concentration (MCHC) determinationOrdered By: Rey Henao 03-13-2025 MCHC (RBC) [Mass/Vol] 34.5 g/dL 32-36 [facility] Mean platelet volume determi nationOrdered By: Rey Henao on 03-13-2025 Platelet mean volume (Bld) [Entitic vol] 10.4 fL 6.2-12.0 [facility] Monocyte percentageOrdered B y: Rey Henao on 03-13-2025 Monocytes/100 WBC (Bld) 14.3 % High 0-10 [facility] Neutrophil percentageOrdered By: Rey Henao on 03-13-2025 Neutrophils/100 WBC (Bld) 69.1 % 47-70 [facility] Nucleated red blood cell per centageOrdered By: Rey Henao on 03-13-2025 Nucleated RBC/100 WBC (Bld) [Ratio] 0 % 0-5 [facility] Platelet countOrdered By: Andrews Henao on 03-13-2025 Platelets (Bld) [#/Vol] 240 10*3/uL 150-450 [facility] Potassium measurement (mass/ volume)Ordered By: Rey Henao on 03-13-2025 Potassium (Unsp spec) [Mass/Vol] 4.2 mmol/L 3.3-5.1 [facility] RBC Auto (Bld) [#/Vol]Ordere d By: Rey Henao on 03-13-2025 RBC (Bld) [#/Vol] 3.65 10*6/uL Low 4.6-6.2 [facility] Serum creatinine measurement (mass/volume)Ordered By: Rey Henao on 03-13-2025 Creatinine [Mass/Vol] 0.37 mg/dL Low 0.70-1.20 [facility] Serum glucose measurement (m ass/volume)Ordered By: Rey Henao on 03-13-2025 Glucose [Mass/Vol] 129 mg/dL High 70-99 [facility] Serum or plasma calcium marialuisa urement (mass/volume)Ordered By: Rey Henao on 03-13-2025 Calcium [Mass/Vol] 8.6 mg/dL 7.6-11.0 [facility] Serum or plasma urea nitroge n measurement (mass/volume)Ordered By: Rey Henao on 03-13-2025 Urea nitrogen [Mass/Vol] 16 mg/dL 4-19 [facility] Sodium levelOrdered By: Rey Henao on 03-13-2025 Sodium [Moles/Vol] 132 mmol/L Low 133-145 [facility] White blood cell (WBC) count Ordered By: Rey Henao on 03-13-2025 WBC (Bld) [#/Vol] 9.5 10*3/uL 4.4-11.0 [facility] CNPDionne 03-10-2025 MARIA GUADALUPE Telephone (AGCARDPOB ) JEANIE RANKIN ([id number]) 1940 M Date Time Provider Department 03/10/25 JOSE DAVIS During your visit today, we recorded the following information about you: Jose Davis APRN.ALINE 03/10/2025 3:32 PM Signed Pt was recently seen in the hospital for abnormal stress. Please reach out to patient to schedule follow up visit with Dr. Brito or RUI. Patient should be seen in 6-8 weeks. Thanks Jose Davis APRN.[employer] Uzma Gacria 03/11/2025 2:49 PM Signed Pt scheduled 05/05/2025 with Reta Fraire Message left with appt day/time Letter sent Uzma Garcia Allergies As of Date: 03/10/2025 Noted Allergy Reaction ADHESIVE 03/18/2009 NEOSPORIN ([id number]*08/0 07/2005 2 - Rash 9 - Itching [...] OSTEOPOROSIS [M81.8] 10/20/2005 MYALGIA AND MYOSITIS NOS [[id number]] 10/20/2005 ANEMIA NOS [D64.9] 08/02/2006 BENIGN NEOPLASM [...] Encounter Status:Closed by UZMA GARCIA on 03/11/25 [facility] ANES POSTPROC EVALon 025 ANES POSTPROC EVAL HNO ID: [id number] Author: NAYA AGUILERA MD Service: Anesthesiology Author [...] March 06, 2025 TIME: 6:41 AM CSN: [id number] Normal [facility] Basic Metabolic Profile (BMP )on 03-06-2025 BUN/CRE 46.6 RATIO High 02-23 [facility] Comment on above: Performed By: #### L 100.0100, L500.2500 #### [facility] [address] [facility] [address] Calcium [Mass/Vol] 8.7 mg/dL Normal 7.6-11.0 [facility] Comment on above: Performed By: #### L 100.0100, L500.2500 #### [facility] [address] [facility] [address] Chloride [Moles/Vol] 103 mmol/L Normal 98-108 [facility] Comment on above: Performed By: #### L 100.0100, L500.2500 #### [facility] [address] [place], [address] CO2 [Moles/Vol] 27.5 mmol/L Normal 21.0-32.0 [facility] Comment on above: Performed By: #### L 100.0100, L500.2500 #### [facility] [address] [place], [address] Creatinine [Mass/Vol] 0.35 mg/dL Low 0.70-1.20 [facility] Comment on above: Performed By: #### L 100.0100, L500.2500 #### [facility] [address] [place], [address] ECRCL 59.81 ml/min Normal 50-250 [facility] Comment on above: Performed By: #### L 100.0100, L500.2500 #### [facility] [address] [place], [address] GAP 6 Normal 5-15 [facility] Comment on above: Performed By: #### L 100.0100, L500.2500 #### [facility] [address] [place], [address] GFR/1.73 sq M.predicted among non-blacks MDRD (S/P/Bld) [Vol rate/Area] 110 mL/min/{1.73_m2} Normal >60 [facility] Comment on above: Result Comment: mL/m in/1.73m2 CKD-EPI Creatinine Equation (2020) Performed By: #### L 100.0100, L500.2500 #### [facility] [address] [place], [address] Glucose [Mass/Vol] 98 mg/dL Normal 70-99 [facility] Comment on above: Performed By: #### L 100.0100, L500.2500 #### [facility] [address] [place], [address] Potassium [Moles/Vol] 4.2 mmol/L Normal 3.3-5.1 [facility] Comment on above: Performed By: #### L 100.0100, L500.2500 #### [facility] [address] [place], [address] Sodium [Moles/Vol] 136 mmol/L Normal 133-145 [facility] Comment on above: Performed By: #### L 100.0100, L500.2500 #### [facility] [address] [place], [address] Urea nitrogen [Mass/Vol] 17 mg/dL Normal 4-19 [facility] Comment on above: Performed By: #### L 100.0100, L500.2500 #### [facility] [address] [place], [address] CBC W/Diff, Automatedon 10-3 Absolute Lymph 1.77 X10 3/uL Normal 0.83-4.51 [facility] Comment on above: Performed By: #### L 100.0100, L500.2500 #### [facility] [address] [place], [address] Absolute Neut 3.4 X10 3/uL Normal 2.0-7.7 [facility] Comment on above: Performed By: #### L 100.0100, L500.2500 #### [facility] [address] [place], [address] Basophils/100 WBC (Bld) 0.5 % Normal 0-1 [facility] Comment on above: Performed By: #### L 100.0100, L500.2500 #### [facility] [address] [place], [address] Eosinophils/100 WBC (Bld) 1.8 % Normal 0-5 [facility] Comment on above: Performed By: #### L 100.0100, L500.2500 #### [facility] [address] [place], [address] Erythrocyte distribution width (RBC) [Ratio] 12.4 % Normal 11.6-14.6 [facility] Comment on above: Performed By: #### L 100.0100, L500.2500 #### [facility] [address] [place], [address] Hematocrit (Bld) [Volume fraction] 34.0 % Low 40-54 [facility] Comment on above: Performed By: #### L 100.0100, L500.2500 #### [facility] [address] [place], [address] Hemoglobin (Bld) [Mass/Vol] 11.4 g/dL Low 13.0-16.5 [facility] Comment on above: Performed By: #### L 100.0100, L500.2500 #### [facility] [address] [place], [address] IG% 0.300 Normal 0.0-0.9 [facility] Comment on above: Result Comment: IG% - Immature Granulocytes (promyelocytes, myelocytes and metamyelocytes) > 1% indicates that a LEFT SHIFT is Present. Performed By: #### L 100.0100, L500.2500 #### [facility] [address] [place], [address] Lymphocytes/100 WBC (Bld) 27.0 % Normal 19-41 [facility] Comment on above: Performed By: #### L 100.0100, L500.2500 #### [facility] [address] [place], [address] MCH (RBC) [Entitic mass] 31.2 pg Normal 27.0-32.0 [facility] Comment on above: Performed By: #### L 100.0100, L500.2500 #### [facility] [address] [place], [address] MCHC (RBC) [Mass/Vol] 33.5 g/dL Normal 32-36 [facility] Comment on above: Performed By: #### L 100.0100, L500.2500 #### [facility] [address] [place], [address] MCV (RBC) [Entitic vol] 93.2 fL Normal 80-94 [facility] Comment on above: Performed By: #### L 100.0100, L500.2500 #### [facility] [address] [place], [address] Monocytes/100 WBC (Bld) 18.9 % High 0-10 [facility] Comment on above: Performed By: #### L 100.0100, L500.2500 #### [facility] [address] [place], [address] Neutrophils/100 WBC (Bld) 51.5 % Normal 47-70 [facility] Comment on above: Performed By: #### L 100.0100, L500.2500 #### [facility] [address] [place], [address] Nucleated RBC (Bld) [#/Vol] 0 10*3/uL Normal 0-5 [facility] Comment on above: Performed By: #### L 100.0100, L500.2500 #### [facility] [address] [place], [address] Platelet mean volume (Bld) [Entitic vol] 10.9 fL Normal 6.2-12.0 [facility] Comment on above: Performed By: #### L 100.0100, L500.2500 #### [facility] [address] [place], [address] Platelets (Bld) [#/Vol] 201 10*3/uL Normal 150-450 [facility] Comment on above: Performed By: #### L 100.0100, L500.2500 #### [facility] [address] [place], [address] RBC (Bld) [#/Vol] 3.65 10*6/uL Low 4.6-6.2 [facility] Comment on above: Performed By: #### L 100.0100, L500.2500 #### [facility] [address] [place], [address] RDW SD 42.7 fl Normal 35.1-43.9 [facility] Comment on above: Performed By: #### L 100.0100, L500.2500 #### [facility] [address] [place], [address] WBC (Bld) [#/Vol] 6.6 10*3/uL Normal 4.4-11.0 [facility] Comment on above: Performed By: #### L 100.0100, L500.2500 #### [facility] [address] [place], [address] CNPDionne 03-06-2025 [facility] Telephone (AGGENS4) JEANIE RANKIN ([id number]) 1940 M Date Time Provider Department 03/06/25 [...] 03/06/2025 Noted Allergy Reaction ADHESIVE 03/18/2009 NEOSPORIN ([id number]*08/0 07/2005 2 - Rash 9 - Itching [...] OSTEOPOROSIS [M81.8] 10/20/2005 MYALGIA AND MYOSITIS NOS [[id number]] 10/20/2005 ANEMIA NOS [D64.9] 08/02/2006 BENIGN NEOPLASM [...] Anion gap [Moles/Vol] 9 mmol/L Normal 8-15 [facility] Comment on above: Order Comment: Speci men Type: BLOOD SPECIMEN Ordering Facility: [facility] Address: [address] [place] [address] Performed By: #### 2 777-1, 09883-2, #### [facility] CLIA [id number] [address] [place] [address] [place] Calcium [Mass/Vol] 8.3 mg/dL Low 8.5-10.2 [facility] Comment on above: Order Comment: Speci men Type: BLOOD SPECIMEN Ordering Facility: [facility] Address: [address] [place] [address] Performed By: #### 2 777-1, 35219-9, #### [facility] CLIA [id number] [address] [place] [address] [place] Chloride [Moles/Vol] 102 mmol/L Normal 98-107 [facility] Comment on above: Order Comment: Speci men Type: BLOOD SPECIMEN Ordering Facility: [facility] Address: [address] [place] [address] Performed By: #### 2 777-1, , #### [facility] CLIA [id number] [address] [place] [address] [place] CO2 [Moles/Vol] 25 mmol/L Normal 22-30 [facility] Comment on above: Order Comment: Speci men Type: BLOOD SPECIMEN Ordering Facility: [facility] Address: [address] [place] [address] Performed By: #### 2 777-1, , #### [facility] CLIA [id number] [address] [place] Creatinine [Mass/Vol] 0.35 mg/dL Low 0.73-1.22 [facility] Comment on above: Order Comment: Speci men Type: BLOOD SPECIMEN Ordering Facility: [facility] Address: [address] [place] [address] Performed By: #### 2 777-1, , #### [facility] CLIA [id number] [address] [place] eGFRcr SerPlBld CKD-EPI 2020 111 mL/min/1.73m??? Normal >=60 [facility] Comment on above: Order Comment: Speci men Type: BLOOD SPECIMEN Ordering Facility: [facility] Address: [address] [place] [address] Result Comment: Genet mated Glomerular Filtration Rate [...] Performed By: #### 2 777-1, , #### [facility] CLIA [id number] [address] [place] Glucose [Mass/Vol] 126 mg/dL High 74-99 [facility] Comment on above: Order Comment: Speci men Type: BLOOD SPECIMEN Ordering Facility: [facility] Address: [address] [place], [place] [id number] Result Comment: The [place] [employer] (ADA) provides guidance for cutoff [...] Standards of Medical Care in Diabetes 2016, [place] [employer]. Diabetes Care. 2016.39(Suppl 1). Performed By: #### 2 777-1, 97482-3, #### [facility] CLIA [id number] [address] [place] [address] [place] Potassium [Moles/Vol] 5.0 mmol/L Normal 3.7-5.1 [facility] Comment on above: Order Comment: Melia zuluaga Type: BLOOD SPECIMEN Ordering Facility: [facility] Address: [address] [place], [place] [id number] Performed By: #### 2 777-1, , #### [employer] [facility] CLIA [id number] [address] [place] [address] [place] Sodium [Moles/Vol] 136 mmol/L Normal 136-144 [facility] Comment on above: Order Comment: Melia zuluaga Type: BLOOD SPECIMEN Ordering Facility: [facility] Address: [address] [place], [place] [address] Performed By: #### 2 777-1, , #### [employer] [facility] CLIA [id number] 1 [place] [address] [place] Urea nitrogen [Mass/Vol] 15 mg/dL Normal 9-24 [facility] Comment on above: Order Comment: Melia zuluaga Type: BLOOD SPECIMEN Ordering Facility: [facility] Address: [address] [place] [address] Performed By: #### 2 777-1, 27171-5, 16213-1 #### [facility] CLIA [id number] 1 [place] [address] [place] CBC W Auto Differential pane l (Bld)on 03-05-2025 Basophils (Bld) [#/Vol] 10*3/uL Normal <0.11 [facility] Comment on above: Order Comment: Speci men Type: BLOOD SPECIMEN Ordering Facility: [facility] Address: [address] [place] [address] Performed By: #### 5 8410-2 #### [facility] CLIA [id number] [address] [place] Basophils/100 WBC (Bld) 0.2 % Normal [facility] Comment on above: Order Comment: Speci men Type: BLOOD SPECIMEN Ordering Facility: [facility] Address: [address] [place] [address] Performed By: #### 5 8410-2 #### [facility] CLIA [id number] [address] Differential cell count method Nom (Bld) Auto Normal [facility] Comment on above: Order Comment: Speci men Type: BLOOD SPECIMEN Ordering Facility: [facility] Address: [address] [place] [address] Performed By: #### 5 8410-2 #### [facility] CLIA [id number] [address] [place] Eosinophils (Bld) [#/Vol] 10*3/uL Normal <0.46 [facility] Comment on above: Order Comment: Speci men Type: BLOOD SPECIMEN Ordering Facility: [facility] Address: [address] [place] [address] Performed By: #### 5 8410-2 #### [facility] CLIA [id number] [address] [place] Eosinophils/100 WBC (Bld) 0.0 % Normal [facility] Comment on above: Order Comment: Speci men Type: BLOOD SPECIMEN Ordering Facility: [facility] Address: [address] [place] [address] Performed By: #### 5 8410-2 #### [facility] CLIA [id number] [address] Erythrocyte distribution width (RBC) [Ratio] 12.3 % Normal 11.5-15.0 [facility] Comment on above: Order Comment: Speci men Type: BLOOD SPECIMEN Ordering Facility: [facility] Address: [address] [place] [address] Performed By: #### 5 8410-2 #### [facility] CLIA [id number] [address] [place] Hematocrit (Bld) [Volume fraction] 38.2 % Low 39.0-51.0 [facility] Comment on above: Order Comment: Speci men Type: BLOOD SPECIMEN Ordering Facility: [facility] Address: [address] [place] [address] Performed By: #### 5 8410-2 #### [facility] CLIA [id number] [address] [place] Hemoglobin (Bld) [Mass/Vol] 12.8 g/dL Low 13.0-17.0 [facility] Comment on above: Order Comment: Speci men Type: BLOOD SPECIMEN Ordering Facility: [facility] Address: [address] [place] [address] Performed By: #### 5 8410-2 #### [facility] CLIA [id number] [address] [place] Immature granulocytes (Bld) [#/Vol] 0.08 10*3/uL Normal <0.10 [facility] Comment on above: Order Comment: Speci men Type: BLOOD SPECIMEN Ordering Facility: [facility] Address: [address] [place] [address] Performed By: #### 5 8410-2 #### [facility] CLIA [id number] [address] Immature granulocytes/100 WBC (Bld) 0.7 % Normal [facility] Comment on above: Order Comment: Speci men Type: BLOOD SPECIMEN Ordering Facility: [facility] Address: [address] [place] [address] Performed By: #### 5 8410-2 #### [facility] CLIA [id number] [address] Lymphocytes (Bld) [#/Vol] 0.82 10*3/uL Low 1.00-4.00 [facility] Comment on above: Order Comment: Speci men Type: BLOOD SPECIMEN Ordering Facility: [facility] Address: [address] [place] [address] Performed By: #### 5 8410-2 #### [facility] CLIA [id number] [address] Lymphocytes/100 WBC (Bld) 7.1 % Normal [facility] Comment on above: Order Comment: Speci men Type: BLOOD SPECIMEN Ordering Facility: [facility] Address: [address] [place] [address] Performed By: #### 5 8410-2 #### [facility] CLIA [id number] [address] MCH (RBC) [Entitic mass] 31.5 pg Normal 26.0-34.0 [facility] Comment on above: Order Comment: Speci men Type: BLOOD SPECIMEN Ordering Facility: [facility] Address: [address] [place] [address] Performed By: #### 5 8410-2 #### [facility] CLIA [id number] [address] MCHC (RBC) [Mass/Vol] 33.5 g/dL Normal 30.5-36.0 [facility] Comment on above: Order Comment: Speci men Type: BLOOD SPECIMEN Ordering Facility: [facility] Address: [address] [place] [address] Performed By: #### 5 8410-2 #### [facility] CLIA [id number] [address] [place] MCV (RBC) [Entitic vol] 94.1 fL Normal 80.0-100.0 [facility] Comment on above: Order Comment: Speci men Type: BLOOD SPECIMEN Ordering Facility: [facility] Address: [address] [place] [address] Performed By: #### 5 8410-2 #### [facility] CLIA [id number] [address] [place] Monocytes (Bld) [#/Vol] 1.40 10*3/uL High <0.87 [facility] Comment on above: Order Comment: Speci men Type: BLOOD SPECIMEN Ordering Facility: [facility] Address: [address] [place] [address] Performed By: #### 5 8410-2 #### [facility] CLIA [id number] [address] [place] Monocytes/100 WBC (Bld) 12.1 % Normal [facility] Comment on above: Order Comment: Speci men Type: BLOOD SPECIMEN Ordering Facility: [facility] Address: [address] [place] [address] Performed By: #### 5 8410-2 #### [facility] CLIA [id number] [address] [place] Neutrophils (Bld) [#/Vol] 9.27 10*3/uL High 1.45-7.50 [facility] Comment on above: Order Comment: Speci men Type: BLOOD SPECIMEN Ordering Facility: [facility] Address: [address] [place] [address] Performed By: #### 5 8410-2 #### [facility] CLIA [id number] [address] [place] Neutrophils/100 WBC (Bld) 79.9 % Normal [facility] Comment on above: Order Comment: Speci men Type: BLOOD SPECIMEN Ordering Facility: [facility] Address: [address] [place] [address] Performed By: #### 5 8410-2 #### [facility] CLIA [id number] [address] Nucleated RBC (Bld) [#/Vol] 10*3/uL Normal <0.01 [facility] Comment on above: Order Comment: Speci men Type: BLOOD SPECIMEN Ordering Facility: [facility] Address: [address] [place] [address] Performed By: #### 5 8410-2 #### [facility] CLIA [id number] [address] [place] Nucleated RBC/100 WBC (Bld) [Ratio] 0.0 /100 WBC Normal [facility] Comment on above: Order Comment: Speci men Type: BLOOD SPECIMEN Ordering Facility: [facility] Address: [address] [place] [address] Performed By: #### 5 8410-2 #### [facility] CLIA [id number] [address] Platelet mean volume (Bld) [Entitic vol] 11.0 fL Normal 9.0-12.7 [facility] Comment on above: Order Comment: Speci men Type: BLOOD SPECIMEN Ordering Facility: [facility] Address: [address] [place] [address] Performed By: #### 5 8410-2 #### [facility] CLIA [id number] [address] [place] Platelets (Bld) [#/Vol] 187 10*3/uL Normal 150-400 [facility] Comment on above: Order Comment: Speci men Type: BLOOD SPECIMEN Ordering Facility: [facility] Address: [address] [place] [address] Performed By: #### 5 8410-2 #### [facility] CLIA [id number] [address] [place] RBC (Bld) [#/Vol] 4.06 10*6/uL Low 4.20-6.00 [facility] Comment on above: Order Comment: Speci men Type: BLOOD SPECIMEN Ordering Facility: [facility] Address: [address] [place] [id number] Performed By: #### 5 8410-2 #### [facility] CLIA [id number] [address] WBC (Bld) [#/Vol] 11.59 10*3/uL High 3.70-11.00 [facility] Comment on above: Order Comment: Melia margareth Type: BLOOD SPECIMEN Ordering Facility: [facility] Address: [address] [place] [id number] Performed By: #### 5 8410-2 #### [facility] CLIA [id number] [address] CNDSon 03-05-2025 CNDS HNO ID: [id number] Author: ANNE STUBBS DO Service: General Surgery [...] Attending Provider: Jose Hayes MD Primary Service: [facility] Attending: Deisi Villalta MD Consulting: Garry [...] you become constipated, you may use any gsxo-nfg-mtecgrp treatment such as Milk of Magnesia, Sennakot, [...] THERAPY NTon 03-05-2025 THERAPY NT HNO ID: [id number] Author: CUCA PEREZ PT Service: Physical Therapy Author Type: Physical Therapist Type: Therapy (PT/OT/Speech/Resp) Filed: 03/05/2025 10:08 Note Text: Physical Therapy Treatment Summary SERVICE DATE: 03/05/2025 SERVICE TIME: 900 to 936 ROOM: [id number] PT 6 Clicks Score: 9 DISCHARGE RECOMMENDATIONS [...] Fall Risk CURRENT HOSPITAL COURSE presented to [place] [facility] with abdominal pain, nausea and vomitting--found [...] and mobility-other TREATMENT INTERVENTIONS Reevaluation, Therapeutic Exercise (89867), Therapeutic Activity (45034) Timed Code Treatment (minutes): 10 Skilled Treatment Time (minutes): 34 $ Reevaluation (60211) Billed Units: 1 unit Therapeutic Exercise (45074) Treatment Minutes: 8 $ Therapeutic Exercise (50990) Billed Units: 1 unit Bilateral LE anti-gravity exercises. Patient needed assist with DF and knee ext as he is unable to complete either. 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 [...] DATE: March 05, 2025 TIME: 10:04 AM [facility] ANES PRE-OPon 03-04-2025 ANES PRE-OP HNO ID: [id number] Author: NAYA AGUILERA MD Service: Anesthesiology Author [...] March 04, 2025 TIME: 4:28 PM CSN: [id number] Normal [facility] Basic metabolic 2000 panelon 03-04-2025 Anion gap [Moles/Vol] 9 mmol/L Normal 8-15 [facility] Comment on above: Order Comment: Speci men Type: BLOOD SPECIMEN Ordering Facility: [facility] Address: [address] [place] [address] Performed By: #### 5 8410-2 #### [facility] CLIA [id number] 1 [place] [address] [place] Calcium [Mass/Vol] 8.9 mg/dL Normal 8.5-10.2 [facility] Comment on above: Order Comment: Speci men Type: BLOOD SPECIMEN Ordering Facility: [facility] Address: [address] [place] [address] Performed By: #### 5 8410-2 #### [facility] CLIA [id number] 1 [place] [address] [place] Chloride [Moles/Vol] 105 mmol/L Normal 98-107 [facility] Comment on above: Order Comment: Speci men Type: BLOOD SPECIMEN Ordering Facility: [facility] Address: [address] [place] [address] Performed By: #### 5 8410-2 #### [facility] CLIA [id number] 1 [place] [address] [place] CO2 [Moles/Vol] 24 mmol/L Normal 22-30 [facility] Comment on above: Order Comment: Speci men Type: BLOOD SPECIMEN Ordering Facility: [facility] Address: [address] [place] [address] Performed By: #### 5 8410-2 #### [facility] CLIA [id number] [address] [place] Creatinine [Mass/Vol] 0.30 mg/dL Low 0.73-1.22 [facility] Comment on above: Order Comment: Melia zuluaga Type: BLOOD SPECIMEN Ordering Facility: [facility] Address: [address] [place] [address] Performed By: #### 5 8410-2 #### [facility] CLIA [id number] [address] [place] eGFRcr SerPlBld CKD-EPI 2020 116 mL/min/1.73m??? Normal >=60 [facility] Comment on above: Order Comment: Melia zuluaga Type: BLOOD SPECIMEN Ordering Facility: [facility] Address: [address] [place] [address] Result Comment: Genet mated Glomerular Filtration Rate [...] GFR. Performed By: #### 5 8410-2 #### [facility] CLIA [id number] [address] [place] Glucose [Mass/Vol] 102 mg/dL High 74-99 [facility] Comment on above: Order Comment: Melia zuluaga Type: BLOOD SPECIMEN Ordering Facility: [facility] Address: [address] [place] [address] Result Comment: The [place] [employer] (ADA) provides guidance for cutoff [...] Standards of Medical Care in Diabetes 2016, [place] [employer]. Diabetes Care. 2016.39(Suppl 1). Performed By: #### 5 8410-2 #### [facility] CLIA [id number] [address] Potassium [Moles/Vol] 4.3 mmol/L Normal 3.7-5.1 [facility] Comment on above: Order Comment: Speci men Type: BLOOD SPECIMEN Ordering Facility: [facility] Address: [facility] [place] [address] Performed By: #### 5 8410-2 #### [facility] CLIA [id number] [address] Sodium [Moles/Vol] 138 mmol/L Normal 136-144 [facility] Comment on above: Order Comment: Speci men Type: BLOOD SPECIMEN Ordering Facility: [facility] Address: [address] [place] [address] Performed By: #### 5 8410-2 #### [facility] CLIA [id number] [address] Urea nitrogen [Mass/Vol] 23 mg/dL Normal 9-24 [facility] Comment on above: Order Comment: Speci men Type: BLOOD SPECIMEN Ordering Facility: [facility] Address: [address] [place] [address] Performed By: #### 5 8410-2 #### [facility] CLIA [id number] [address] CBC panel Auto (Bld)on 03-04 Erythrocyte distribution width (RBC) [Ratio] 12.4 % Normal 11.5-15.0 [facility] Comment on above: Order Comment: Speci men Type: BLOOD SPECIMEN Ordering Facility: [facility] Address: [facility] [place] [address] Performed By: #### 5 8410-2 #### [facility] CLIA [id number] [address] Hematocrit (Bld) [Volume fraction] 36.3 % Low 39.0-51.0 [facility] Comment on above: Order Comment: Speci men Type: BLOOD SPECIMEN Ordering Facility: [facility] Address: [address] [place] [address] Performed By: #### 5 8410-2 #### [facility] CLIA [id number] [address] [facility] Hemoglobin (Bld) [Mass/Vol] 12.6 g/dL Low 13.0-17.0 [facility] Comment on above: Order Comment: Speci men Type: BLOOD SPECIMEN Ordering Facility: [facility] Address: [address] [place] [address] Performed By: #### 5 8410-2 #### [facility] CLIA [id number] [address] STATES OF [facility] MCH (RBC) [Entitic mass] 31.9 pg Normal 26.0-34.0 [facility] Comment on above: Order Comment: Speci men Type: BLOOD SPECIMEN Ordering Facility: [facility] Address: [address] [place] [address] Performed By: #### 5 8410-2 #### [facility] CLIA [id number] [address] STATES OF [facility] MCHC (RBC) [Mass/Vol] 34.7 g/dL Normal 30.5-36.0 [facility] Comment on above: Order Comment: Speci men Type: BLOOD SPECIMEN Ordering Facility: [facility] Address: [address] [place] [address] Performed By: #### 5 8410-2 #### [facility] CLIA [id number] [address] [place] MCV (RBC) [Entitic vol] 91.9 fL Normal 80.0-100.0 [facility] Comment on above: Order Comment: Speci men Type: BLOOD SPECIMEN Ordering Facility: [facility] Address: [address] [place] [address] Performed By: #### 5 8410-2 #### [facility] CLIA [id number] [address] [place] Nucleated RBC (Bld) [#/Vol] 10*3/uL Normal <0.01 [facility] Comment on above: Order Comment: Speci men Type: BLOOD SPECIMEN Ordering Facility: [facility] Address: [address] [place] [address] Performed By: #### 5 8410-2 #### [facility] CLIA [id number] [address] [place] Platelet mean volume (Bld) [Entitic vol] 11.0 fL Normal 9.0-12.7 [facility] Comment on above: Order Comment: Speci men Type: BLOOD SPECIMEN Ordering Facility: [facility] Address: [address] [place] [address] Performed By: #### 5 8410-2 #### [facility] CLIA [id number] [address] [place] Platelets (Bld) [#/Vol] 181 10*3/uL Normal 150-400 [facility] Comment on above: Order Comment: Speci men Type: BLOOD SPECIMEN Ordering Facility: [facility] Address: [address] [place] [address] Performed By: #### 5 8410-2 #### [facility] CLIA [id number] [address] [place] RBC (Bld) [#/Vol] 3.95 10*6/uL Low 4.20-6.00 [facility] Comment on above: Order Comment: Speci men Type: BLOOD SPECIMEN Ordering Facility: [facility] Address: [address] [place] [address] Performed By: #### 5 8410-2 #### [facility] CLIA [id number] [address] [place] WBC (Bld) [#/Vol] 5.84 10*3/uL Normal 3.70-11.00 [facility] Comment on above: Order Comment: Speci men Type: BLOOD SPECIMEN Ordering Facility: [facility] Address: [address] [place] [address] [address] Performed By: #### 5 8410-2 #### [facility] [id number] 1 [place] [address] [place] CONSULT PROGon 03-04-2025 CONSULT PROG HNO ID: [id number] Author: BLAINE CASIANO MD Service: General Surgery [...] questions or concerns Mon-Fri 6a-5p please page [phone]. After 5pm and on Weekends and Holidays, please page [phone]. SUBJECTIVE: NAEON. Patient denies any nausea or [...] - 03/04/2565803/04/25 07 - 03/05/25 0659 Shift 5089-9800 4481-1155 2513-2465 24 Hour Total 7926-2688 8545-2099 5687-2978 24 Hour Total INTAKE PO 120 120 PO 120 120 Shift Total 120 120 OUTPUT Urine 056 786 9404 Void (ml) 665 560 9113 Urine Not Saved. 1 x 1 x # of BMs Stool Incontinence 1 x 1 x Number of BMs 0 x 0 x Shift Total 289 766 7143 Weight (kg) 64.2 64.2 64.2 64.2 64.2 [...] 03-04 Magnesium [Mass/Vol] 1.8 mg/dL Normal 1.7-2.3 [facility] Comment on above: Order Comment: Speci men Type: BLOOD SPECIMEN Ordering Facility: [facility] Address: [facility] [place] [address] Performed By: #### 2 777-1, 52375-2, 48087-0 #### [facility] CLIA [id number] [address] [place] OPERATIVE NOon 03-04-2025 OPERATIVE NO HNO ID: [id number] Author: JOSE HAYES MD Service: General Surgery Author Type: Physician Type: Operative Report Filed: 03/04/2025 17:57 Note Text: OPERATIVE/PROCEDURE REPORT LOG ID: [id number] Surgery/Procedure Date: 03/04/2025 Incision/Procedure Start Time: 3:42 PM Incision Close/Procedure End Time: 5:57 PM Surgeon(s)/Proceduralist(s) and Commodity Buyer(s): Surgeons and Role: * Jose Hayes MD - Primary * Scott Yoo MD - Resident - Assisting Turret Lathe Operator: Monse Serrano SA Procedure(s): 1.- Robotic assisted [...] was identified. The peritoneum overlying the right ivlma was opened and dissection carried circumferentially towards [...] and it was 12 cm. A 40 [place] VISIGI bougie had been previously placed into [...] 03-04 Phosphate [Mass/Vol] 2.9 mg/dL Normal 2.7-4.8 [facility] Comment on above: Order Comment: Speci men Type: BLOOD SPECIMEN Ordering Facility: [facility] Address: [address] [place] [address] Performed By: #### 2 777-1, 37218-0, 94229-8 #### [facility] CLIA [id number] [address] [place] [address] OF [facility] THERAPY NTon 03-04-2025 THERAPY NT HNO ID: [id number] Author: MIGUEL CARDENAS CCC-SLP Service: Speech/Swallow Author Type: Speech Language Pathologist Type: Therapy (PT/OT/Speech/Resp) Filed: 03/04/2025 08:49 Note Text: SPEECH THERAPY MISSED VISIT SERVICE DATE: 03/04/2025 SERVICE TIME: 848 ROOM: [place] [address] Patient not seen due to Test / Procedure: OR. Will re-attempt speech/swallowing therapy at a later date/time. SIGNATURE: IDA Tam PATIENT NAME: Jeanie Rankin DATE: March 04, 2025 TIME: 8:49 AM Normal [facility] ALLIED HEALTHon 03-03-2025 ALLIED HEALTH HNO ID: [id number] Author: TIMMY CHAHAL Chaplain Service: Spiritual Care Author Type: Type: Allied Health Filed: 03/03/2025 17:18 Note Text: SPIRITUAL CARE PROGRESS NOTE SERVICE DATE: 03/03/2025 SERVICE TIME: 5pm Top And Seat Cover Fitter attempted to offer support, but pt was sleeping To contact the Spiritual Care Department: Please call . SIGNATURE: Chaplain Vlad PATIENT NAME: Jeanie Rankin DATE: March 03, 2025 TIME: 5:17 PM PAGER/CONTACT #: [phone] Normal [facility] Basic metabolic 2000 panelon 03-03-2025 Anion gap [Moles/Vol] 9 mmol/L Normal 8-15 [facility] Comment on above: Order Comment: Speci men Type: BLOOD SPECIMENOrdering Facility: [facility] Address: [address] [place] [address] Performed By: #### 2 4321-2, 40400-8, 2777-1, 257-8 ####[facility] [id number] [place] [address] [place] Calcium [Mass/Vol] 8.9 mg/dL Normal 8.5-10.2 [facility] Comment on above: Order Comment: Speci men Type: BLOOD SPECIMENOrdering Facility: [facility] Address: [address] [place] [address] Performed By: #### 2 4321-2, 61525-7, 2777-1, 2571-8 ####[facility] [id number] [place] [address] [place] Chloride [Moles/Vol] 101 mmol/L Normal 98-107 [facility] Comment on above: Order Comment: Speci men Type: BLOOD SPECIMENOrdering Facility: [facility] Address: [address] [place] [address] Performed By: #### 2 4321-2, 98855-1, 2777-1, 2571-8 ####[facility] [id number] [place] [address] [place] CO2 [Moles/Vol] 22 mmol/L Normal 22-30 [facility] Comment on above: Order Comment: Speci men Type: BLOOD SPECIMENOrdering Facility: [facility] Address: [address] [place] [address] Performed By: #### 2 4321-2, , 2776-05, 2570-12 ####[facility] [id number] [place] [address] [place] Creatinine [Mass/Vol] 0.31 mg/dL Low 0.73-1.22 [facility] Comment on above: Order Comment: Speci men Type: BLOOD SPECIMENOrdering Facility: [facility] Address: [address] [place] [address] Performed By: #### 2 4321-2, , 2776-05, 2570-12 ####[facility] [id number] [place] [address] [place] eGFRcr SerPlBld CKD-EPI 2020 115 mL/min/1.73m??? Normal >=60 [facility] Comment on above: Order Comment: Speci men Type: BLOOD SPECIMENOrdering Facility: [facility] Address: [address] [place] [address] Result Comment: Genet mated Glomerular Filtration Rate [...] actual GFR. Performed By: #### 2 4321-2, 72997-3, 2776-05, 8 ####[facility]ORY[facility]IA [id number] [place] [address] [place] Glucose [Mass/Vol] 103 mg/dL High 74-99 [facility] Comment on above: Order Comment: Melia zulugaa Type: BLOOD SPECIMENOrdering Facility: [facility] Address: [address] [place] [address] Result Comment: The [place] Diabetes Association (ADA) provides guidance for cutoff [...] Standards of Medical Care in Diabetes 2016, [place] [employer]. Diabetes Care. 2016.39(Suppl 1). Performed By: #### 2 4321-2, 00861-5, 277-, 2570-12 ####[facility]ORYCLIA [id number] [place] [address] [place] Potassium [Moles/Vol] 4.0 mmol/L Normal 3.7-5.1 [facility] Comment on above: Order Comment: Melia zuluaga Type: BLOOD SPECIMENOrdering Facility: [facility] Address: [address] [place], [place] [address] Performed By: #### 2 4321-2, 92109-9, 2776-05, 2570-12 ####[facility]ORYCLIA [id number] [place] [address] [place] Sodium [Moles/Vol] 132 mmol/L Low 136-144 [facility] Comment on above: Order Comment: Melia zuluaga Type: BLOOD SPECIMENOrdering Facility: [facility] Address: [address] [place], [place] [id number] Performed By: #### 2 4321-2, 83575-6, 2776-, 2570-8 ####[facility]ORYCLIA [id number] [place] [address] [place] Urea nitrogen [Mass/Vol] 20 mg/dL Normal 9-24 [facility] Comment on above: Order Comment: Speci men Type: BLOOD SPECIMENOrdering Facility: [facility] Address: [address] [place] [address] Performed By: #### 2 4321-2, 50034-1, 2777-1, 2571-8 ####[facility]ORYCLIA [id number] [address] OF [facility] CBC panel Auto (Bld)on 03-03 Erythrocyte distribution width (RBC) [Ratio] 12.0 % Normal 11.5-15.0 [facility] Comment on above: Order Comment: Speci men Type: BLOOD SPECIMEN [facility] Address: [address] [place] [address] Performed By: #### 5 8410-2 #### [facility] CLIA [id number] [address] STATES OF [facility] Hematocrit (Bld) [Volume fraction] 37.1 % Low 39.0-51.0 [facility] Comment on above: Order Comment: Speci men Type: BLOOD SPECIMEN [facility] Address: [address] [place] [address] Performed By: #### 5 8410-2 #### [facility] CLIA [id number] [address] Hemoglobin (Bld) [Mass/Vol] 13.1 g/dL Normal 13.0-17.0 [facility] Comment on above: Order Comment: Speci men Type: BLOOD SPECIMEN [facility] Address: [address] [place] [address] Performed By: #### 5 8410-2 #### [facility] CLIA [id number] [address] MCH (RBC) [Entitic mass] 32.0 pg Normal 26.0-34.0 [facility] Comment on above: Order Comment: Speci men Type: BLOOD SPECIMEN [facility] Address: [address] [place] [address] Performed By: #### 5 8410-2 #### [facility] CLIA [id number] [address] MCHC (RBC) [Mass/Vol] 35.3 g/dL Normal 30.5-36.0 [facility] Comment on above: Order Comment: Speci men Type: BLOOD SPECIMEN [facility] Address: [address] [place] [address] Performed By: #### 5 8410-2 #### [facility] CLIA [id number] [address] [place] MCV (RBC) [Entitic vol] 90.5 fL Normal 80.0-100.0 [facility] Comment on above: Order Comment: Speci men Type: BLOOD SPECIMEN [facility] Address: [address] [place] [address] Performed By: #### 5 8410-2 #### [facility] CLIA [id number] [address] [place] Nucleated RBC (Bld) [#/Vol] 10*3/uL Normal <0.01 [facility] Comment on above: Order Comment: Speci men Type: BLOOD SPECIMEN [facility] Address: [address] [place] [address] Performed By: #### 5 8410-2 #### [facility] CLIA [id number] [address] [place] Platelet mean volume (Bld) [Entitic vol] 10.8 fL Normal 9.0-12.7 [facility] Comment on above: Order Comment: Speci men Type: BLOOD SPECIMEN [facility] Address: [address] [place] [address] Performed By: #### 5 8410-2 #### [facility] CLIA [id number] [address] [place] Platelets (Bld) [#/Vol] 158 10*3/uL Normal 150-400 [facility] Comment on above: Order Comment: Speci men Type: BLOOD SPECIMEN [facility] Address: [address] [place] [address] Performed By: #### 5 8410-2 #### [facility] CLIA [id number] [address] OF [facility] RBC (Bld) [#/Vol] 4.10 10*6/uL Low 4.20-6.00 [facility] Comment on above: Order Comment: Speci men Type: BLOOD SPECIMEN [facility] Address: [address] [place] [address] Performed By: #### 5 8410-2 #### [facility] CLIA [id number] [address] WBC (Bld) [#/Vol] 8.85 10*3/uL Normal 3.70-11.00 [facility] Comment on above: Order Comment: Speci men Type: BLOOD SPECIMEN [facility] Address: [address] [place] [address] Performed By: #### 5 8410-2 #### [facility] CLIA [id number] [address] Magnesium SerPl-mCncon 03-03 Magnesium [Mass/Vol] 1.8 mg/dL Normal 1.7-2.3 [facility] Comment on above: Order Comment: Speci men Type: BLOOD SPECIMEN [facility] Address: [address] [place] [address] Performed By: #### 5 8410-2 #### [facility] CLIA [id number] [address] NURSING PROGon 03-03-2025 NURSING PROG HNO ID: [id number] Author: BRENDON SYKES RN Service: Nursing Author Type: Registered Nurse Type: Nursing Progress Note Filed: 03/03/2025 09:13 Note Text: Pt having a bloody nose in the left nare, applied gentle pressure to left nare and bleeding has subsided at this time. Will inform assigned RN Normal [facility] Phosphate SerPl-mCncon 03-03 Phosphate [Mass/Vol] 3.0 mg/dL Normal 2.7-4.8 [facility] Comment on above: Order Comment: Speci men Type: BLOOD SPECIMEN [facility] Address: [address] [place] [address] Performed By: #### 5 8410-2 #### [facility] CLIA [id number] [address] OF [facility] Trigl SerPl-mCncon Triglyceride [Mass/Vol] 56 mg/dL Normal <150 [facility] Comment on above: Order Comment: Speci men Type: BLOOD SPECIMEN [facility] Address: [address] [place] [address] Result Comment: <150 mg/dL, Normal 150-199 mg/dL, Borderline high 200-499 mg/dL, High >499 mg/dL, Very high Reference: 1. National Cholesterol Education Program ATP III Guideline At-A-Glance Quick Desk Reference: National Heart, Lung, and Blood [place]. National Institutes of Health. 2001: NIH Publication No. 01-3305. Performed By: #### 5 8410-2 #### [facility] CLIA [id number] [address] STATES [facility] Triglyceride [Mass/Vol]on FASTING TIME 12 hours Normal [facility] Comment on above: Order Comment: Speci men Type: BLOOD SPECIMEN [facility] Address: [address] [place] [address] Performed By: #### 5 8410-2 #### [facility] CLIA [id number] [address] [place] Basic metabolic 2000 panelon 03-02-2025 Anion gap [Moles/Vol] 9 mmol/L Normal 8-15 [facility] Comment on above: Order Comment: Speci men Type: BLOOD SPECIMEN [facility] Address: [address] [place] [address] Performed By: #### 2 777-1, 54209-2, #### [facility] CLIA [id number] 1 [place] [address] [place] Calcium [Mass/Vol] 8.9 mg/dL Normal 8.5-10.2 [facility] Comment on above: Order Comment: Speci men Type: BLOOD SPECIMEN [facility] Address: [address] [place] [address] Performed By: #### 2 777-1, , #### [facility] CLIA [id number] 1 [place] [address] [place] Chloride [Moles/Vol] 104 mmol/L Normal 98-107 [facility] Comment on above: Order Comment: Speci men Type: BLOOD SPECIMEN [facility] Address: [address] [place] [address] Performed By: #### 2 777-1, , #### [facility] CLIA [id number] 1 [place] [address] [place] CO2 [Moles/Vol] 25 mmol/L Normal 22-30 [facility] Comment on above: Order Comment: Speci men Type: BLOOD SPECIMEN [facility] Address: [address] [place] [address] Performed By: #### 2 777-1, , #### [facility] CLIA [id number] 1 [place] [address] [place] Creatinine [Mass/Vol] 0.31 mg/dL Low 0.73-1.22 [facility] Comment on above: Order Comment: Speci men Type: BLOOD SPECIMEN [facility] Address: [address] [place] [address] Performed By: #### 2 777-1, 18800-9, #### [facility] CLIA [id number] 1 [place] [address] [place] eGFRcr SerPlBld CKD-EPI 2021 115 mL/min/1.73m??? Normal >=60 [facility] Comment on above: Order Comment: Melia zuluaga Type: BLOOD SPECIMEN [facility] Address: [address] [place] [address] Result Comment: Genet mated Glomerular Filtration Rate [...] actual GFR. Performed By: #### 2 777-1, 81260-1, #### [facility] CLIA [id number] 1 [place] [address] [place] Glucose [Mass/Vol] 91 mg/dL Normal 74-99 [facility] Comment on above: Order Comment: Melia zuluaga Type: BLOOD SPECIMEN [facility] Address: [address] [place] [address] Result Comment: The [place] Diabetes Association (ADA) provides guidance for cutoff [...] Standards of Medical Care in Diabetes 2016, [place] [employer]. Diabetes Care. 2016.39(Suppl 1). Performed By: #### 2 777-1, 00266-7, 25567-6 #### [facility] CLIA [id number] 1 [place] [address] [place] Potassium [Moles/Vol] 4.0 mmol/L Normal 3.7-5.1 [facility] Comment on above: Order Comment: Speci men Type: BLOOD SPECIMEN [facility] Address: [address] [place] [address] Performed By: #### 2 777-1, 50964-3, #### [facility] CLIA [id number] [address] STATES OF [facility] Sodium [Moles/Vol] 138 mmol/L Normal 136-144 [facility] Comment on above: Order Comment: Speci men Type: BLOOD SPECIMEN [facility] Address: [address] [place] [address] Performed By: #### 2 777-1, 60499-5, #### [facility] CLIA [id number] [address] [place] Urea nitrogen [Mass/Vol] 13 mg/dL Normal 9-24 [facility] Comment on above: Order Comment: Speci men Type: BLOOD SPECIMEN [facility] Address: [address] [place] [address] Performed By: #### 2 777-1, , #### [facility] CLIA [id number] [address] [place] CBC panel Auto (Bld)on 03-02 Erythrocyte distribution width (RBC) [Ratio] 12.0 % Normal 11.5-15.0 [facility] Comment on above: Order Comment: Speci men Type: BLOOD SPECIMEN [facility] Address: [address] [place] [address] Performed By: #### 5 8410-2 #### [facility] CLIA [id number] [address] Hematocrit (Bld) [Volume fraction] 37.1 % Low 39.0-51.0 [facility] Comment on above: Order Comment: Speci men Type: BLOOD SPECIMEN [facility] Address: [address] [place] [address] Performed By: #### 5 8410-2 #### [facility] CLIA [id number] [address] Hemoglobin (Bld) [Mass/Vol] 12.9 g/dL Low 13.0-17.0 [facility] Comment on above: Order Comment: Speci men Type: BLOOD SPECIMEN [facility] Address: [address] [place] [address] Performed By: #### 5 8410-2 #### [facility] CLIA [id number] [address] MCH (RBC) [Entitic mass] 32.0 pg Normal 26.0-34.0 [facility] Comment on above: Order Comment: Speci men Type: BLOOD SPECIMEN [facility] Address: [address] [place] [address] Performed By: #### 5 8410-2 #### [facility] CLIA [id number] [address] MCHC (RBC) [Mass/Vol] 34.8 g/dL Normal 30.5-36.0 [facility] Comment on above: Order Comment: Speci men Type: BLOOD SPECIMEN [facility] Address: [address] [place] [address] Performed By: #### 5 8410-2 #### [facility] CLIA [id number] [address] MCV (RBC) [Entitic vol] 92.1 fL Normal 80.0-100.0 [facility] Comment on above: Order Comment: Speci men Type: BLOOD SPECIMEN [facility] Address: [address] [place] [address] Performed By: #### 5 8410-2 #### [facility] CLIA [id number] [address] Nucleated RBC (Bld) [#/Vol] 10*3/uL Normal <0.01 [facility] Comment on above: Order Comment: Speci men Type: BLOOD SPECIMEN [facility] Address: [address] [place] [address] Performed By: #### 5 8410-2 #### [facility] CLIA [id number] [address] [place] Platelet mean volume (Bld) [Entitic vol] 10.5 fL Normal 9.0-12.7 [facility] Comment on above: Order Comment: Speci men Type: BLOOD SPECIMEN [facility] Address: [address] [place] [address] Performed By: #### 5 8410-2 #### [facility] CLIA [id number] [address] [place] Platelets (Bld) [#/Vol] 164 10*3/uL Normal 150-400 [facility] Comment on above: Order Comment: Speci men Type: BLOOD SPECIMEN [facility] Address: [address] [place] [address] Performed By: #### 5 8410-2 #### [facility] CLIA [id number] [address] [place] RBC (Bld) [#/Vol] 4.03 10*6/uL Low 4.20-6.00 [facility] Comment on above: Order Comment: Speci men Type: BLOOD SPECIMEN [facility] Address: [address] [place] [address] Performed By: #### 5 8410-2 #### [facility] CLIA [id number] [address] [place] WBC (Bld) [#/Vol] 5.53 10*3/uL Normal 3.70-11.00 [facility] Comment on above: Order Comment: Speci men Type: BLOOD SPECIMEN [facility] Address: [address] [place] [address] Performed By: #### 5 8410-2 #### [facility] CLIA [id number] [address] CONSULTon 03-02-2025 CONSULT HNO ID: [id number] Author: Maury GIORDANO MD Service: NST-Nutrition Support [...] 02/24/2025 Allergen Noted Reaction ADHESIVE 03/18/2009 NEOSPORIN [QIASSUBA-YOUXQNEVBT-KW*08/0 07/2005 Rash and Itching Fully Assessed 02/24/2025 [...] CONSULT PROGon 03-02-2025 CONSULT PROG HNO ID: [id number] Author: CHESTER BERTRAND APRN.ADVERTISING EDITOR Service: Gastroenterology Author Type: Nurse Specialist Type: [...] refer to Sky for the GI physician coal or ore controller. GI attending who can be reached via phone, pager or Epic chat. SIGNATURE: Chester eBrtrand APRN.CNS PATIENT NAME: Jeanie Rankin DATE: March 02, 2025 TIME: 12:52 PM Normal [facility] ECG COMPLETEon 03-02-2025 ECG COMPLETE Ventricular Rate : 6 7 BPM Atrial Rate : 67 BPM P-R Interval : 162 ms QRS Duration : 140 ms Q-T Interval : 426 ms QTC Calculation(Bazett) : 450 ms Calculated P [place] : 28 degrees Calculated R [place] : 10 degrees Calculated T [place] : 5 degrees NORMAL SINUS RHYTHM RIGHT BUNDLE BRANCH BLOCK ABNORMAL ECG WHEN COMPARED WITH ECG OF 27-Feb-2025 09:00, QUESTIONABLE CHANGE IN QRS AXIS T WAVE INVERSION LESS EVIDENT IN ANTERIOR LEADS Confirmed by MD WATTS VINAYAK ([id number]) on 03/03/2025 8:09:03 AM NAME : JEANIE RANKIN PID : [id number] : 1940 Gender : Male Race : ORD : [id number] Procedure Date : Mar 02 2025 19:01:01 Edit Date : Mar 03 2025 08:09:17 Diagnosis: NORMAL SINUS RHYTHM RIGHT BUNDLE BRANCH BLOCK ABNORMAL ECG WHEN COMPARED WITH ECG OF 27-Feb-2025 09:00, QUESTIONABLE CHANGE IN QRS AXIS T WAVE INVERSION LESS EVIDENT IN ANTERIOR LEADS Confirmed by MD WATTS VINAYAK ([id number]) on 03/03/2025 8:09:03 AM Test Reason : Chest Pain Location : 200 : [facility] 5427 Overread By : MD WATTS VINAYAK Edited By : MD WATTS VINAYAK Referred By : , Acquired by : NAHOMI GREENE [facility] Magnesium SerPl-ncon 03-02 Magnesium [Mass/Vol] 1.7 mg/dL Normal 1.7-2.3 [facility] Comment on above: Order Comment: Speci men Type: BLOOD SPECIMEN [facility] Address: [address] [place] [address] Performed By: #### 2 777-1, 95290-5, 65930-1 #### [facility] CLIA [id number] [address] NUTRITIONon 03-02-2025 NUTRITION HNO ID: [id number] Author: KIM VICENTE RD Service: NST-Nutrition Support [...] (IDDSI Level 5) with Thin Liquids (per DEWER recommendation 02/27) Supplements: Premier Protein - h/o [...] 03-02 Phosphate [Mass/Vol] 2.8 mg/dL Normal 2.7-4.8 [facility] Comment on above: Order Comment: Speci men Type: BLOOD SPECIMEN [facility] Address: [address] [place] [address] Performed By: #### 2 777-1, 32412-1, 09063-8 #### [facility] CLIA [id number] [address] XR CHEST 1V FRONTALon 2024 XR [...] IMPRESSION: Mild atelectasis in the lung bases. Clearance Center Manager: PSCCarol Transcribe Date/Time: Mar 02 2025 9:01P Dictated by : AGNIESZKA BURNHAM MD This examination was interpreted and the report reviewed and electronically signed by: AGNIESZKA BURNHAM MD on Mar 02 2025 9:04PM EST [id number] Normal [facility] Basic metabolic 2000 panelon 03-01-2025 Anion gap [Moles/Vol] 7 mmol/L Low 8-15 [facility] Comment on above: Order Comment: Speci men Type: BLOOD SPECIMEN [facility] Address: [address] [place] [address] Performed By: #### 5 8410-2 #### [facility] CLIA [id number] [address] [place] Calcium [Mass/Vol] 8.3 mg/dL Low 8.5-10.2 [facility] Comment on above: Order Comment: Speci men Type: BLOOD SPECIMEN [facility] Address: [address] [place] [address] Performed By: #### 5 8410-2 #### [facility] CLIA [id number] 1 [place] [address] [place] Chloride [Moles/Vol] 100 mmol/L Normal 98-107 [facility] Comment on above: Order Comment: Speci men Type: BLOOD SPECIMEN [facility]: [facility] Address: [address] [place] [address] Performed By: #### 5 8410-2 #### [facility] CLIA [id number] [address] [place] CO2 [Moles/Vol] 28 mmol/L Normal 22-30 [facility] Comment on above: Order Comment: Speci men Type: BLOOD SPECIMEN [facility]: [facility] Address: [address] [place] [address] Performed By: #### 5 8410-2 #### [facility] CLIA [id number] [address] [place] Creatinine [Mass/Vol] 0.31 mg/dL Low 0.73-1.22 [facility] Comment on above: Order Comment: Speci men Type: BLOOD SPECIMEN [facility]ing [facility]: [facility] Address: [address] [place] [address] Performed By: #### 5 8410-2 #### [facility] CLIA [id number] [address] [place] eGFRcr SerPlBld CKD-EPI 2020 115 mL/min/1.73m??? Normal >=60 [facility] Comment on above: Order Comment: Speci men Type: BLOOD SPECIMEN Ordering Facility: [facility] Address: [address] [place] [address] Result Comment: Genet mated Glomerular Filtration Rate [...] GFR. Performed By: #### 5 8410-2 #### [facility] CLIA [id number] 1 [place] [address] [place] Glucose [Mass/Vol] 97 mg/dL Normal 74-99 [facility] Comment on above: Order Comment: Melia zuluaga Type: BLOOD SPECIMEN Ordering Facility: [facility] Address: [address] [place] [address] Result Comment: The [place] Diabetes Association (ADA) provides guidance for cutoff [...] Standards of Medical Care in Diabetes 2016, [place] [employer]. Diabetes Care. 2016.39(Suppl 1). Performed By: #### 5 8410-2 #### [facility] CLIA [id number] [address] [place] [address] [place] Potassium [Moles/Vol] 3.7 mmol/L Normal 3.7-5.1 [facility] Comment on above: Order Comment: Melia zuluaga Type: BLOOD SPECIMEN Ordering Facility: [facility] Address: [address] [id number] Performed By: #### 5 8410-2 #### [facility] CLIA [id number] [address] Sodium [Moles/Vol] 135 mmol/L Low 136-144 [facility] Comment on above: Order Comment: Speci men Type: BLOOD SPECIMEN Ordering Facility: [facility] Address: [address] [place] [address] Performed By: #### 5 8410-2 #### [facility] CLIA [id number] [address] [place] Urea nitrogen [Mass/Vol] 13 mg/dL Normal 9-24 [facility] Comment on above: Order Comment: Speci men Type: BLOOD SPECIMEN Ordering Facility: [facility] Address: [address] [place] [address] Performed By: #### 5 8410-2 #### [facility] CLIA [id number] [address] CBC panel Auto (Bld)on 03-01 Erythrocyte distribution width (RBC) [Ratio] 12.1 % Normal 11.5-15.0 [facility] Comment on above: Order Comment: Speci men Type: BLOOD SPECIMEN Ordering Facility: [facility] Address: [address] [place] [address] Performed By: #### 5 8410-2 #### [facility] CLIA [id number] [address] Hematocrit (Bld) [Volume fraction] 36.0 % Low 39.0-51.0 [facility] Comment on above: Order Comment: Speci men Type: BLOOD SPECIMEN Ordering Facility: [facility] Address: [address] [place] [address] Performed By: #### 5 8410-2 #### [facility] CLIA [id number] [address] [place] Hemoglobin (Bld) [Mass/Vol] 12.1 g/dL Low 13.0-17.0 [facility] Comment on above: Order Comment: Speci men Type: BLOOD SPECIMEN Ordering Facility: [facility] Address: [address] [place] [address] Performed By: #### 5 8410-2 #### [facility] CLIA [id number] 1 [address] [address] MCH (RBC) [Entitic mass] 31.5 pg Normal 26.0-34.0 [facility] Comment on above: Order Comment: Speci men Type: BLOOD SPECIMEN Ordering Facility: [facility] Address: [address] [place] [address] Performed By: #### 5 8410-2 #### [facility] CLIA [id number] [address] MCHC (RBC) [Mass/Vol] 33.6 g/dL Normal 30.5-36.0 [facility] Comment on above: Order Comment: Speci men Type: BLOOD SPECIMEN Ordering Facility: [facility] Address: [address] [place] [address] Performed By: #### 5 8410-2 #### [facility] CLIA [id number] [address] MCV (RBC) [Entitic vol] 93.8 fL Normal 80.0-100.0 [facility] Comment on above: Order Comment: Speci men Type: BLOOD SPECIMEN Ordering Facility: [facility] Address: [address] [place] [address] Performed By: #### 5 8410-2 #### [facility] CLIA [id number] [address] Nucleated RBC (Bld) [#/Vol] 10*3/uL Normal <0.01 [facility] Comment on above: Order Comment: Speci men Type: BLOOD SPECIMEN Ordering Facility: [facility] Address: [address] [place] [address] Performed By: #### 5 8410-2 #### [facility] CLIA [id number] [address] [place] Platelet mean volume (Bld) [Entitic vol] 10.6 fL Normal 9.0-12.7 [facility] Comment on above: Order Comment: Speci men Type: BLOOD SPECIMEN Ordering Facility: [facility] Address: [address] [place] [address] Performed By: #### 5 8410-2 #### [facility] CLIA [id number] [address] Platelets (Bld) [#/Vol] 150 10*3/uL Normal 150-400 [facility] Comment on above: Order Comment: Speci men Type: BLOOD SPECIMEN Ordering Facility: [facility] Address: [address] [place] [address] Performed By: #### 5 8410-2 #### [facility] CLIA [id number] [address] OF [facility] RBC (Bld) [#/Vol] 3.84 10*6/uL Low 4.20-6.00 [facility] Comment on above: Order Comment: Speci men Type: BLOOD SPECIMEN Ordering Facility: [facility] Address: [address] [place] [address] Performed By: #### 5 8410-2 #### [facility] CLIA [id number] [address] WBC (Bld) [#/Vol] 6.50 10*3/uL Normal 3.70-11.00 [facility] Comment on above: Order Comment: Speci men Type: BLOOD SPECIMEN Ordering Facility: [facility] Address: [address] [place] [address] Performed By: #### 5 8410-2 #### [facility] CLIA [id number] [address] CONSULT PROGon 03-01-2025 CONSULT PROG HNO ID: [id number] Author: PETRONA ALBRECHT MD Service: General Surgery [...] questions or concerns Mon-Fri 6a-5p please page [phone]. After 5pm and on Weekends and Holidays, please page [phone]. SUBJECTIVE: NAEON. Patient denies any nausea or [...] - 03/01/2559 03/01/25699 - 03/02/25 0659 Shift 8864-6307 7935-7613 9692-9118 24 Hour Total 5783-6909 5450-5518 5909-6108 24 Hour Total INTAKE [address] 240 [...] [facility] NUTRITIONon 03-01-2025 NUTRITION HNO ID: [id number] Author: ZULEMA VILLAGRAN RD Service: Nutrition Therapy [...] Follow for diet advancement to goal (per DEWER approved consistencies/textures) Supplements: (pt has refused all, [...] Weight Type: Admit weight Estimated kilocalorie needs: 6010-0320 Calorie Calculation Method: 30-35 kcals/kg Estimated protein [...] Anion gap [Moles/Vol] 8 mmol/L Normal 8-15 [facility] Comment on above: Order Comment: Melia zuluaga Type: BLOOD SPECIMEN Ordering Facility: [facility] Address: [address] [place] [address] Performed By: #### 2 777-1, 87824-0, 29298-1 #### [facility] CLIA [id number] 1 [place] [address] [place] Calcium [Mass/Vol] 8.6 mg/dL Normal 8.5-10.2 [facility] Comment on above: Order Comment: Melia zuluaga Type: BLOOD SPECIMEN Ordering Facility: [facility] Address: [address] [place] [address] Performed By: #### 2 777-1, 65812-7, #### [facility] CLIA [id number] 1 [place] [address] [place] Chloride [Moles/Vol] 102 mmol/L Normal 98-107 [facility] Comment on above: Order Comment: Speci men Type: BLOOD SPECIMEN Ordering Facility: [facility] Address: [address] [place] [address] Performed By: #### 2 777-1, 89565-0, #### [facility] CLIA [id number] 1 [place] [address] [place] CO2 [Moles/Vol] 33 mmol/L High 22-30 [facility] Comment on above: Order Comment: Speci men Type: BLOOD SPECIMEN Ordering Facility: [facility] Address: [address] [place] [address] Performed By: #### 2 777-1, 23211-8, #### [facility] CLIA [id number] 1 [place] [address] [place] Creatinine [Mass/Vol] 0.35 mg/dL Low 0.73-1.22 [facility] Comment on above: Order Comment: Speci men Type: BLOOD SPECIMEN Ordering Facility: [facility] Address: [address] [place] [address] Performed By: #### 2 777-1, 01403-1, #### [facility] CLIA [id number] 1 [place] [address] [place] eGFRcr SerPlBld CKD-EPI 2020 111 mL/min/1.73m??? Normal >=60 [facility] Comment on above: Order Comment: Speci men Type: BLOOD SPECIMEN Ordering Facility: [facility] Address: [address] [place] [address] Result Comment: Genet mated Glomerular Filtration Rate [...] actual GFR. Performed By: #### 2 777-1, 33799-6, #### [facility] CLIA [id number] 1 [place] [address] [place] Glucose [Mass/Vol] 111 mg/dL High 74-99 [facility] Comment on above: Order Comment: Speccollin men Type: BLOOD SPECIMEN Ordering Facility: [facility] Address: [address] [place] [address] Result Comment: The [place] Diabetes Association (ADA) provides guidance for cutoff [...] Standards of Medical Care in Diabetes 2016, [place] [employer]. Diabetes Care. 2016.39(Suppl 1). Performed By: #### 2 777-1, , #### [facility] CLIA [id number] 1 [place] [address] [place] Potassium [Moles/Vol] 3.6 mmol/L Low 3.7-5.1 [facility] Comment on above: Order Comment: Melia men Type: BLOOD SPECIMEN Ordering Facility: [facility] Address: [address] [place], [place] [address] Performed By: #### 2 777-1, , #### [facility] CLIA [id number] 1 [place] [address] [place] Sodium [Moles/Vol] 143 mmol/L Normal 136-144 [facility] Comment on above: Order Comment: Speci men Type: BLOOD SPECIMEN Ordering Facility: [facility] Address: [address] [place] [address] Performed By: #### 2 777-1, 90694-3, #### [facility] CLIA [id number] [address] STATES [facility] Urea nitrogen [Mass/Vol] 26 mg/dL High 01-28 [facility] Comment on above: Order Comment: Speci men Type: BLOOD SPECIMEN Ordering Facility: [facility] Address: [address] [place] [address] Performed By: #### 2 777-1, 23952-5, #### [facility] CLIA [id number] [address] OF [facility] CBC panel Auto (Bld)on 02-28 Erythrocyte distribution width (RBC) [Ratio] 12.4 % Normal 11.5-15.0 [facility] Comment on above: Order Comment: Speci men Type: BLOOD SPECIMENOrdering Facility: [facility] Address: [address] [place] [address] Performed By: #### 5 8410-2 ####[facility] [id number] [address] [place] Hematocrit (Bld) [Volume fraction] 36.4 % Low 39.0-51.0 [facility] Comment on above: Order Comment: Speci men Type: BLOOD SPECIMENOrdering Facility: [facility] Address: [address] [place] [address] Performed By: #### 5 8410-2 ####[facility] [id number] [address] [place] Hemoglobin (Bld) [Mass/Vol] 12.0 g/dL Low 13.0-17.0 [facility] Comment on above: Order Comment: Speci men Type: BLOOD SPECIMENOrdering Facility: [facility] Address: [address] [place] [address] Performed By: #### 5 8410-2 ####[facility] [id number] [address] STATES [facility] MCH (RBC) [Entitic mass] 31.9 pg Normal 26.0-34.0 [facility] Comment on above: Order Comment: Speci men Type: BLOOD SPECIMENOrdering Facility: [facility] Address: [address] [place] [address] Performed By: #### 5 8410-2 ####[facility] [id number] [address] MCHC (RBC) [Mass/Vol] 33.0 g/dL Normal 30.5-36.0 [facility] Comment on above: Order Comment: Speci men Type: BLOOD SPECIMENOrdering Facility: [facility] Address: [address] [place] [address] Performed By: #### 5 8410-2 ####[facility] [id number] [address] MCV (RBC) [Entitic vol] 96.8 fL Normal 80.0-100.0 [facility] Comment on above: Order Comment: Speci men Type: BLOOD SPECIMENOrdering Facility: [facility] Address: [address] [place] [address] Performed By: #### 5 8410-2 ####[facility] [id number] [address] Nucleated RBC (Bld) [#/Vol] 10*3/uL Normal <0.01 [facility] Comment on above: Order Comment: Speci men Type: BLOOD SPECIMENOrdering Facility: [facility] Address: [address] [place] [address] Performed By: #### 5 8410-2 ####[facility] [id number] [address] Platelet mean volume (Bld) [Entitic vol] 10.3 fL Normal 9.0-12.7 [facility] Comment on above: Order Comment: Speci men Type: BLOOD SPECIMENOrdering Facility: [facility] Address: [address] [place] [address] Performed By: #### 5 8410-2 ####[facility] [id number] [address] STATES [facility] Platelets (Bld) [#/Vol] 146 10*3/uL Low 150-400 [facility] Comment on above: Order Comment: Speci men Type: BLOOD SPECIMENOrdering Facility: [facility] Address: [address] [place] [address] Performed By: #### 5 8410-2 ####[facility] [id number] [address] [place] RBC (Bld) [#/Vol] 3.76 10*6/uL Low 4.20-6.00 [facility] Comment on above: Order Comment: Speci men Type: BLOOD SPECIMENOrdering Facility: [facility] Address: [address] [place] [address] Performed By: #### 5 8410-2 ####[facility] [id number] [address] STATES OF [facility] WBC (Bld) [#/Vol] 6.43 10*3/uL Normal 3.70-11.00 [facility] Comment on above: Order Comment: Speci men Type: BLOOD SPECIMENOrdering Facility: [facility] Address: [address] [place] [address] Performed By: #### 5 8410-2 ####[facility] [id number] [address] [place] Magnesium [facility] 02-28 Magnesium [Mass/Vol] 2.1 mg/dL Normal 1.7-2.3 [facility] Comment on above: Order Comment: Speci men Type: BLOOD SPECIMEN Ordering Facility: [facility] Address: [address] [place] [address] Performed By: #### 2 777-1, 24146-1, 25375-9 #### [facility] CLIA [id number] 1 [place] [address] [place] Phosphate SerPl-mCncon 02-28 Phosphate [Mass/Vol] 2.1 mg/dL Low 2.7-4.8 [facility] Comment on above: Order Comment: Speci men Type: BLOOD SPECIMEN Ordering Facility: [facility] Address: [address] [place] [address] Performed By: #### 2 777-1, 24841-5, 44764-8 #### [facility] CLIA [id number] 1 [place] [address] [place] THERAPY NTon 02-28-2025 THERAPY NT HNO ID: [id number] Author: WU FLORES, PT Service: Physical Therapy Author Type: Physical Therapist Type: Therapy (PT/OT/Speech/Resp) Filed: 02/28/2025 16:18 Note Text: Physical Therapy Treatment Summary SERVICE DATE: 02/28/2025 SERVICE TIME: 1445 to 1525 ROOM: [place] [address] PT 6 Clicks Score: 9 DISCHARGE RECOMMENDATIONS [...] be available and he has been at [place] before--[place] does have SNF/ARF PRECAUTIONS Bed/Chair Alarm, Fall Risk CURRENT HOSPITAL COURSE presented to [place] ED with abdominal pain, nausea and vomitting--found [...] gait and mobility-other TREATMENT INTERVENTIONS Therapeutic Activity (99517) Timed Code Treatment (minutes): 40 Skilled Treatment Time (minutes): 40 Therapeutic Activity (70726) Treatment Minutes: 40 $ Therapeutic Activity (93302) Billed Units: 3 units Cues for safe [...] fully extended--discussed equipment options and asking about [place] rehab TRAINING AND EDUCATION PROVIDED Bed Mobility, [...] Melia zuluaga Type: BLOOD SPECIMEN Ordering Facility: [facility] Address: [address] [place] [address] Performed By: #### 5 8410-2 #### [employer] [facility] CLIA [id number] [address] STATES OF [facility] Hematocrit (Bld) [Volume fraction] 37.9 % Low 39.0-51.0 [facility] Comment on above: Order Comment: Melia zuluaga Type: BLOOD SPECIMEN Ordering Facility: [facility] Address: [address] [place] [address] Performed By: #### 5 8410-2 #### [facility] CLIA [id number] 1 [place] [address] [place] Hemoglobin (Bld) [Mass/Vol] 12.4 g/dL Low 13.0-17.0 [facility] Comment on above: Order Comment: Melia zuluaga Type: BLOOD SPECIMEN Ordering Facility: [facility] Address: [address] [place] [address] Performed By: #### 5 8410-2 #### [facility] CLIA [id number] [address] MCH (RBC) [Entitic mass] 32.0 pg Normal 26.0-34.0 [facility] Comment on above: Order Comment: Speci men Type: BLOOD SPECIMEN Ordering Facility: [facility] Address: [address] [place] [address] Performed By: #### 5 8410-2 #### [facility] CLIA [id number] [address] MCHC (RBC) [Mass/Vol] 32.7 g/dL Normal 30.5-36.0 [facility] Comment on above: Order Comment: Speci men Type: BLOOD SPECIMEN Ordering Facility: [facility] Address: [address] [place] [address] Performed By: #### 5 8410-2 #### [facility] CLIA [id number] [address] MCV (RBC) [Entitic vol] 97.7 fL Normal 80.0-100.0 [facility] Comment on above: Order Comment: Speci men Type: BLOOD SPECIMEN Ordering Facility: [facility] Address: [address] [place] [address] Performed By: #### 5 8410-2 #### [facility] CLIA [id number] [address] Nucleated RBC (Bld) [#/Vol] 10*3/uL Normal <0.01 [facility] Comment on above: Order Comment: Speci men Type: BLOOD SPECIMEN Ordering Facility: [facility] Address: [address] [place] [address] Performed By: #### 5 8410-2 #### [facility] CLIA [id number] [address] OF [facility] Platelet mean volume (Bld) [Entitic vol] 10.4 fL Normal 9.0-12.7 [facility] Comment on above: Order Comment: Speci men Type: BLOOD SPECIMEN Ordering Facility: [facility] Address: [address] [place] [address] Performed By: #### 5 8410-2 #### [facility] CLIA [id number] [address] OF [facility] Platelets (Bld) [#/Vol] 173 10*3/uL Normal 150-400 [facility] Comment on above: Order Comment: Speci men Type: BLOOD SPECIMEN Ordering Facility: [facility] Address: [address] [place] [address] Performed By: #### 5 8410-2 #### [facility] CLIA [id number] [address] OF [facility] RBC (Bld) [#/Vol] 3.88 10*6/uL Low 4.20-6.00 [facility] Comment on above: Order Comment: Speci men Type: BLOOD SPECIMEN Ordering Facility: [facility] Address: [address] [place] [address] Performed By: #### 5 8410-2 #### [facility] CLIA [id number] [address] WBC (Bld) [#/Vol] 6.76 10*3/uL Normal 3.70-11.00 [facility] Comment on above: Order Comment: Speci men Type: BLOOD SPECIMEN Ordering Facility: [facility] Address: [address] [place] [address] Performed By: #### 5 8410-2 #### [facility] CLIA [id number] [address] CONSULTon 02-27-2025 CONSULT HNO ID: [id number] Author: RONDA DUMONT APRN.ADVERTISING EDITOR Service: Geriatrics Author Type: Nurse Specialist Type: Consults Filed: 02/27/2025 12:47 Note Text: GERIATRIC SURGERY SERVICE CONSULT NOTE PATIENT NAME: Jeanie Rankin [id number]* CONSULT TO GERIATRICS ([place]) Consult performed by: Ronda Dumont APRN.ADVERTISING EDITOR Consult ordered by: Nadiya Camilo MD Reason for consult: Age 84 HISTORY OF PRESENT ILLNESS: Jeanie Rankin is a 84 year old male with a past medical history of nodular B cell lymphoma 2007, esophagitis, hiatal hernia, diverticulosis, fout, , HTN, hypogonadism, IBM, and osteoporosis who was admitted on 02/24/2025 for gastric outlet obstruction. Patient went to [place] ED for recurrent emesis, imaging revealed large hiatal hernia containing a significant portion of the gastric body and subsequently causing gastric outlet obstruction . NGT was placed and was transferred to [facility] for evaluation. Patient was admitted under medicine to [facility]. General surgery was consulted, had discussion [...] prescriptions were reported. 02/27/2025 by Ronda Dumont APRN.ADVERTISING EDITOR Current Facility-Administered Medications Medication Dose Route Frequency [...] 02/24/2025 Allergen Noted Reaction ADHESIVE 03/18/2009 NEOSPORIN [VQYGSEZU-EXZOANVTEF-WG*08/0 07/2005 Rash and Itching Fully Assessed 02/24/2025 Review of Systems Constitutional: Positive (more content not included)... Normal [facility] CONSULT PROGon 02-27-2025 CONSULT PROG HNO ID: [id number] Author: JOSE DAVIS APRN.ALINE Service: Clinical Cardiology Author Type: Nurse Practitioner Type: Consult Progress Note Filed: 02/27/2025 14:17 Note Text: CARDIOLOGY CONSULT PROGRESS NOTE CARDIOLOGY ATTENDING: Rick Brito M.D. Date and Reason for initial consult: Preop risk assessment INTERVAL HISTORY: This is an 84-year-old male with past medical history significant for hypertension, inclusion body myositis, lymphoma, and hiatal hernia who initially presented to [place] ED 02/24/2025 with complaints of abdominal pain, nausea and vomiting x 3 days. CTAP showed large hiatal hernia with gastric outlet obstruction, NG tube was placed. He was transferred to [facility] 02/25/2025. He underwent EGD in 02/26 [...] [facility] CONSULT PROG HNO ID: [id number] Author: BLAINE CASIANO MD Service: General Surgery [...] questions or concerns Sun-Sun 6a-5p please page [phone]. After 5pm and on Weekends and Holidays, please page [phone]. SUBJECTIVE: Patient had EGD yesterday notable for [...] 0659 02/27/25 0700 - 02/28/25 0659 Shift 2180-9951 0540-5672 6631-4838 24 Hour Total 8866-8744 8524-0075 9318-1736 24 Hour Total INTAKE Shift Total OUTPUT Urine 150 250 400 Void (ml) 150 250 400 Tubes 700 700 Output mL (I/O) ([REMOVED] GI/ Feeding 02/24/25 External Facility Left Naris 02/26/25 1125) 700 700 Shift Total 844 033 2068 Weight (kg) 64.2 64.2 64.2 64.2 64.2 [...] Speci men Type: BLOOD SPECIMEN Ordering Facility: [facility] Address: [address] [place] [address] Performed By: #### 2 777-1, 23906-9, 18655-9 #### [facility] CLIA [id number] 1 [place] [address] [place] ALP [Catalytic activity/Vol] 51 U/L Normal 38-113 [facility] Comment on above: Order Comment: Speci men Type: BLOOD SPECIMEN Ordering Facility: [facility] Address: [address] [place] [address] Performed By: #### 2 777-1, 02882-8, #### [facility] CLIA [id number] [address] [place] ALT With P-5'-P [Catalytic activity/Vol] 11 U/L Normal 10-54 [facility] Comment on above: Order Comment: Speci men Type: BLOOD SPECIMEN Ordering Facility: [facility] Address: [address] [place] [address] Performed By: #### 2 777-1, , #### [facility] CLIA [id number] [address] [place] Anion gap [Moles/Vol] 12 mmol/L Normal 8-15 [facility] Comment on above: Order Comment: Speci men Type: BLOOD SPECIMEN Ordering Facility: [facility] Address: [address] [place] [address] Performed By: #### 2 777-1, , #### [facility] CLIA [id number] [address] STATES OF [facility] AST With P-5'-P [Catalytic activity/Vol] 18 U/L Normal 14-40 [facility] Comment on above: Order Comment: Speci men Type: BLOOD SPECIMEN Ordering Facility: [facility] Address: [address] [place] [address] Performed By: #### 2 777-1, 72187-6, #### [facility] CLIA [id number] [address] [place] Bilirubin [Mass/Vol] 0.7 mg/dL Normal 0.2-1.3 [facility] Comment on above: Order Comment: Speci men Type: BLOOD SPECIMEN Ordering Facility: [facility] Address: [address] [place] [address] Performed By: #### 2 777-1, 38074-6, #### [facility] CLIA [id number] [address] [place] [address] [place] Calcium [Mass/Vol] 9.1 mg/dL Normal 8.5-10.2 [facility] Comment on above: Order Comment: Speci men Type: BLOOD SPECIMEN Ordering Facility: [facility] Address: [address] [place] [address] Performed By: #### 2 777-1, 19528-8, #### [facility] CLIA [id number] [address] [place] [address] [place] Chloride [Moles/Vol] 102 mmol/L Normal 98-107 [facility] Comment on above: Order Comment: Speci men Type: BLOOD SPECIMEN Ordering Facility: [facility] Address: [address] [place] [address] Performed By: #### 2 777-1, , #### [facility] CLIA [id number] [address] [place] [address] [place] CO2 [Moles/Vol] 35 mmol/L High 22-30 [facility] Comment on above: Order Comment: Speci men Type: BLOOD SPECIMEN Ordering Facility: [facility] Address: [address] [place] [address] Performed By: #### 2 777-1, , #### [facility] CLIA [id number] [address] [place] [address] [place] Creatinine [Mass/Vol] 0.46 mg/dL Low 0.73-1.22 [facility] Comment on above: Order Comment: Speci men Type: BLOOD SPECIMEN Ordering Facility: [facility] Address: [address] [place] [address] Performed By: #### 2 777-1, 51481-9, #### [facility] CLIA [id number] [address] [place] [address] [place] eGFRcr SerPlBld CKD-EPI 2020 102 mL/min/1.73m??? Normal >=60 [facility] Comment on above: Order Comment: Melia zuluaga Type: BLOOD SPECIMEN Ordering Facility: [facility] Address: [address] [place] [address] Result Comment: Genet mated Glomerular Filtration Rate [...] actual GFR. Performed By: #### 2 777-1, 80407-2, #### [facility] CLIA [id number] [address] [place] [address] [place] Glucose [Mass/Vol] 81 mg/dL Normal 74-99 [facility] Center Comment on above: Order Comment: Melia zuluaga Type: BLOOD SPECIMEN Ordering Facility: [facility] Address: [address] [place] [address] Result Comment: The [place] [employer] (ADA) provides guidance for cutoff [...] Standards of Medical Care in Diabetes 2016, [place] [employer]. Diabetes Care. 2016.39(Suppl 1). Performed By: #### 2 777-1, 62950-3, #### [facility] CLIA [id number] 1 [place] [address] [place] Potassium [Moles/Vol] 3.5 mmol/L Low 3.7-5.1 [facility] Comment on above: Order Comment: Speci men Type: BLOOD SPECIMEN Ordering Facility: [facility] Address: [address] [place] [address] Performed By: #### 2 777-1, 28327-5, #### [facility] CLIA [id number] 1 [place] [address] [place] Protein [Mass/Vol] 6.1 g/dL Low 6.3-8.0 [facility] Comment on above: Order Comment: Speci men Type: BLOOD SPECIMEN Ordering Facility: [facility] Address: [address] [place] [address] Performed By: #### 2 777-1, , #### [facility] CLIA [id number] 1 [place] [address] [place] Sodium [Moles/Vol] 149 mmol/L High 136-144 [facility] Comment on above: Order Comment: Speci men Type: BLOOD SPECIMEN Ordering Facility: [facility] Address: [address] [place] [address] Performed By: #### 2 777-1, , #### [facility] CLIA [id number] 1 [place] [address] [place] Urea nitrogen [Mass/Vol] 29 mg/dL High 9-24 [facility] Comment on above: Order Comment: Speci men Type: BLOOD SPECIMEN Ordering Facility: [facility] Address: [address] [place] [address] Performed By: #### 2 777-1, , #### [facility] CLIA [id number] 1 [place] [address] [place] Magnesium SerPl-mCncon 02-27 Magnesium [Mass/Vol] 2.2 mg/dL Normal 1.7-2.3 [facility] Comment on above: Order Comment: Speci men Type: BLOOD SPECIMEN Ordering Facility: [facility] Address: [address] [place] [address] Performed By: #### 2 777-1, 76000-7, 33408-4 #### [facility] CLIA [id number] [address] STATES OF [facility] NM CARDIAC PERF STRESS/PHARM on 02-27-2025 NM CARDIAC PERF STRESS/PHARM * * *Final Report* * * DATE OF EXAM: Feb 27 2025 10:28AM [facility] 0006 - NM CARDIAC PERF STRESS/PHARM / PROCEDURE REASON: CAD screening, low CAD risk * * * * Physician Interpretation * * * * Stress Raise Miner Report: [facility] Date of service: [...] service: 02/27/2025 7:52:00 AM Ordering physician: KAREEM EPREZ change management specialist: Mushtaq Storey RN Commodity Buyer: Drew Calvin CEP Interpreting physician: Shawn Everett [...] 172/61 mmHg. The double product achieved was [address]. Medications: Last Used D3, CoQ10, lisinopril, MVI Resting ECG: Sinus Bradycardia, Nonspecific St-T Wave Changes and RBBB Symptoms at r (more content not included)... Normal [facility] Phosphate SerPl-mCncon 02-27 Phosphate [Mass/Vol] 3.1 mg/dL Normal 2.7-4.8 [facility] Comment on above: Order Comment: Speci men Type: BLOOD SPECIMEN Ordering Facility: [facility] Address: [address] [place] [address] Performed By: #### 2 777-1, 96504-9, 11217-8 #### [facility] CLIA [id number] 1 [place] [address] [place] THERAPY NTon 02-27-2025 THERAPY NT HNO ID: [id number] Author: WU FLORES PT Service: Physical Therapy Author Type: Physical Therapist Type: Therapy (PT/OT/Speech/Resp) Filed: 02/27/2025 15:45 Note Text: Physical Therapy Evaluation Summary SERVICE DATE: 02/27/2025 SERVICE TIME: 1430 to 1457 ROOM: [address] PT 6 Clicks Score: 8 DISCHARGE [...] Fall Risk CURRENT HOSPITAL COURSE presented to [place] ED with abdominal pain, nausea and vomitting--found [...] and mobility-other TREATMENT INTERVENTIONS Evaluation, Therapeutic Activity (48824) Timed Code Treatment (minutes): 10 Skilled Treatment Time (minutes): 27 $ Evaluation-Moderate (89853) Billed Units: 1 unit Therapeutic Activity (75853) Treatment Minutes: 10 $ Therapeutic Activity (67531) Billed Units: 1 unit Needed mod A to mobilize to edge of bed--pt usually sleeps in lift chair at baseline; then needed max Ax2 to return to supine and reposition Multiple attempts to stand with height of bed fully elevated and using our walker--but pt unable to complete with this device--vehicle dismantler aren't long enough and doesn't have correct [...] [facility] THERAPY NT HNO ID: [id number] Author: MIRTA LEON CCC-DEWER Service: Speech/Swallow Author Type: Speech Language Pathologist Type: Therapy (PT/OT/Speech/Resp) Filed: 02/27/2025 11:16 Note Text: Speech Therapy Clinical Swallow Evaluation SERVICE DATE: 02/27/2025 SERVICE TIME: 1042 to 1104 ROOM: [id number] IMPRESSION Swallow Deficits Identified / Suspected: Oropharyngeal [...] oropharyngeal phase TREATMENT INTERVENTIONS Clinical Swallow Evaluation (26305) Skilled Treatment Time (minutes): 22 $ Clinical Swallow Evaluation (53817) Billed Units: 1 unit TRAINING AND EDUCATION [...] EVALon 025 ANES POSTPROC EVAL HNO ID: [id number] Author: BELEN SPRING MD Service: Anesthesiology Author Type: Anesthesiologist Type: Anesthesia Postprocedure Evaluation Filed: 02/26/2025 13:19 Note Text: POST ANESTHESIA EVALUATION NOTE : 1940 Procedure Summary Date: 02/26/25 Room / Location: [facility] Anesthesia Start: 1104 Anesthesia Stop: 1201 [...] February 26, 2025 TIME: 1:19 PM CSN: [id number] Normal [facility] ANES PRE-OPon 02-26-2025 ANES PRE-OP HNO ID: [id number] Author: BELEN SPRING MD Service: Anesthesiology Author Type: Anesthesiologist Type: Anesthesia Preprocedure Evaluation Filed: 02/26/2025 10:52 Note Text: ANESTHESIOLOGY DAY OF SURGERY NOTE : 1940 Procedure Information Date/Time: 02/26/25 1115 Scheduled providers: Nadiya Camilo MD Procedure: EGD DIAGNOSTIC Location: [facility] Estimated body mass index is 20.9 [...] February 26, 2025 TIME: 10:51 AM CSN: [id number] Normal [facility] Basic metabolic 2000 panelon 02-26-2025 Anion gap [Moles/Vol] 12 mmol/L Normal 8-15 [facility] Comment on above: Order Comment: Speci men Type: BLOOD SPECIMEN Ordering Facility: [facility] Address: [address] [place] [address] Performed By: #### 5 8410-2 #### [facility] CLIA [id number] [address] [place] [address] [place] Calcium [Mass/Vol] 9.3 mg/dL Normal 8.5-10.2 [facility] Comment on above: Order Comment: Speci men Type: BLOOD SPECIMEN Ordering Facility: [facility] Address: [address] [place] [address] Performed By: #### 5 8410-2 #### [facility] CLIA [id number] 1 [place] [address] [place] Chloride [Moles/Vol] 100 mmol/L Normal 98-107 [facility] Comment on above: Order Comment: Speci men Type: BLOOD SPECIMEN Ordering Facility: [facility] Address: [address] [place] [address] Performed By: #### 5 8410-2 #### [facility] CLIA [id number] [address] [place] CO2 [Moles/Vol] 36 mmol/L High 22-30 [facility] Comment on above: Order Comment: Speci men Type: BLOOD SPECIMEN Ordering Facility: [facility] Address: [address] [place] [address] Performed By: #### 5 8410-2 #### [facility] CLIA [id number] [address] [place] Creatinine [Mass/Vol] 0.45 mg/dL Low 0.73-1.22 [facility] Comment on above: Order Comment: Speci men Type: BLOOD SPECIMEN Ordering Facility: [facility] Address: [address] [place] [address] Performed By: #### 5 8410-2 #### [facility] CLIA [id number] [address] eGFRcr SerPlBld CKD-EPI 2020 103 mL/min/1.73m??? Normal >=60 [facility] Comment on above: Order Comment: Speci men Type: BLOOD SPECIMEN Ordering Facility: [facility] Address: [address] [place] [address] Result Comment: Genet mated Glomerular Filtration Rate [...] GFR. Performed By: #### 5 8410-2 #### [facility] CLIA [id number] [address] OF [facility] Glucose [Mass/Vol] 74 mg/dL Normal 74-99 [facility] Comment on above: Order Comment: Speci men Type: BLOOD SPECIMEN Ordering Facility: [facility] Address: [address] [place] [address] Result Comment: The [place] Diabetes Association (ADA) provides guidance for cutoff [...] Standards of Medical Care in Diabetes 2016, [place] [employer]. Diabetes Care. 2016.39(Suppl 1). Performed By: #### 5 8410-2 #### [facility] CLIA [id number] [address] STATES [facility] Potassium [Moles/Vol] 3.4 mmol/L Low 3.7-5.1 [facility] Comment on above: Order Comment: Melia zuluaga Type: BLOOD SPECIMEN Ordering Facility: [facility] Address: [address] [place] [address] Performed By: #### 5 8410-2 #### [facility] CLIA [id number] [address] STATES [facility] Sodium [Moles/Vol] 148 mmol/L High 136-144 [facility] Comment on above: Order Comment: Melia zuluaga Type: BLOOD SPECIMEN Ordering Facility: [facility] Address: [address] [place] [address] Performed By: #### 5 8410-2 #### [facility] CLIA [id number] [address] STATES [facility] Urea nitrogen [Mass/Vol] 22 mg/dL Normal 9-24 [facility] Comment on above: Order Comment: Melia zuluaga Type: BLOOD SPECIMEN Ordering Facility: [facility] Address: [address] [place] [address] Performed By: #### 5 8410-2 #### [facility] CLIA [id number] [address] [place] CBC W Auto Differential pane l (Bld)on 02-26-2025 Basophils (Bld) [#/Vol] 10*3/uL Normal <0.11 [facility] Comment on above: Order Comment: Speci men Type: BLOOD SPECIMEN Ordering Facility: [facility] Address: [address] [place] [address] Performed By: #### 2 777-1, 03372-2, #### [facility] CLIA [id number] 1 [place] [address] [place] Basophils/100 WBC (Bld) 0.3 % Normal [facility] Comment on above: Order Comment: Speci men Type: BLOOD SPECIMEN Ordering Facility: [facility] Address: [address] [place] [address] Performed By: #### 2 777-1, , #### [facility] CLIA [id number] 1 [place] [address] [place] Differential cell count method Nom (Bld) Auto Normal [facility] Comment on above: Order Comment: Speci men Type: BLOOD SPECIMEN Ordering Facility: [facility] Address: [address] [place] [address] Performed By: #### 2 777-1, , #### [facility] CLIA [id number] 1 [place] [address] [place] Eosinophils (Bld) [#/Vol] 10*3/uL Normal <0.46 [facility] Comment on above: Order Comment: Speci men Type: BLOOD SPECIMEN Ordering Facility: [facility] Address: [address] [place] [address] Performed By: #### 2 777-1, 54241-3, #### [facility] CLIA [id number] [address] [place] Eosinophils/100 WBC (Bld) 0.3 % Normal [facility] Comment on above: Order Comment: Speci men Type: BLOOD SPECIMEN Ordering Facility: [facility] Address: [address] [place] [address] Performed By: #### 2 777-1, , #### [facility] CLIA [id number] [address] [place] Erythrocyte distribution width (RBC) [Ratio] 12.5 % Normal 11.5-15.0 [facility] Comment on above: Order Comment: Speci men Type: BLOOD SPECIMEN Ordering Facility: [facility] Address: [address] [place] [address] Performed By: #### 2 777-1, , #### [facility] CLIA [id number] [address] [place] Hematocrit (Bld) [Volume fraction] 36.1 % Low 39.0-51.0 [facility] Comment on above: Order Comment: Speci men Type: BLOOD SPECIMEN Ordering Facility: [facility] Address: [address] [place] [address] Performed By: #### 2 777-1, , #### [facility] CLIA [id number] [address] [place] Hemoglobin (Bld) [Mass/Vol] 12.1 g/dL Low 13.0-17.0 [facility] Comment on above: Order Comment: Speci men Type: BLOOD SPECIMEN Ordering Facility: [facility] Address: [address] [place] [address] Performed By: #### 2 777-1, , #### [facility] CLIA [id number] [address] [place] Immature granulocytes (Bld) [#/Vol] 10*3/uL Normal <0.10 [facility] Comment on above: Order Comment: Speci men Type: BLOOD SPECIMEN Ordering Facility: [facility] Address: [address] [place] [address] Performed By: #### 2 777-1, , #### [facility] CLIA [id number] [address] [place] [address] [place] Immature granulocytes/100 WBC (Bld) 0.3 % Normal [facility] Comment on above: Order Comment: Speci men Type: BLOOD SPECIMEN Ordering Facility: [facility] Address: [address] [place] [address] Performed By: #### 2 777-1, 10631-0, #### [facility] CLIA [id number] [address] [place] Lymphocytes (Bld) [#/Vol] 1.18 10*3/uL Normal 1.00-4.00 [facility] Comment on above: Order Comment: Speci men Type: BLOOD SPECIMEN Ordering Facility: [facility] Address: [address] [place] [address] Performed By: #### 2 777-1, 84005-0, #### [facility] CLIA [id number] [address] Lymphocytes/100 WBC (Bld) 17.4 % Normal [facility] Comment on above: Order Comment: Speci men Type: BLOOD SPECIMEN Ordering Facility: [facility] Address: [address] [place] [address] Performed By: #### 2 777-1, , #### [facility] CLIA [id number] [address] [place] MCH (RBC) [Entitic mass] 31.8 pg Normal 26.0-34.0 [facility] Comment on above: Order Comment: Speci men Type: BLOOD SPECIMEN Ordering Facility: [facility] Address: [address] [place] [address] Performed By: #### 2 777-1, 88178-7, #### [facility] CLIA [id number] [address] STATES OF [facility] MCHC (RBC) [Mass/Vol] 33.5 g/dL Normal 30.5-36.0 [facility] Comment on above: Order Comment: Speci men Type: BLOOD SPECIMEN Ordering Facility: [facility] Address: [address] [place] [address] Performed By: #### 2 777-1, 28705-3, #### [facility] CLIA [id number] [address] MCV (RBC) [Entitic vol] 95.0 fL Normal 80.0-100.0 [facility] Comment on above: Order Comment: Speci men Type: BLOOD SPECIMEN Ordering Facility: [facility] Address: [address] [place] [address] Performed By: #### 2 777-1, , #### [facility] CLIA [id number] [address] [place] Monocytes (Bld) [#/Vol] 1.07 10*3/uL High <0.87 [facility] Comment on above: Order Comment: Speci men Type: BLOOD SPECIMEN Ordering Facility: [facility] Address: [address] [place] [address] Performed By: #### 2 777-1, , #### [facility] CLIA [id number] [address] [place] Monocytes/100 WBC (Bld) 15.8 % Normal [facility] Comment on above: Order Comment: Speci men Type: BLOOD SPECIMEN Ordering Facility: [facility] Address: [address] [place] [address] Performed By: #### 2 777-1, , #### [facility] CLIA [id number] [address] [place] Neutrophils (Bld) [#/Vol] 4.46 10*3/uL Normal 1.45-7.50 [facility] Comment on above: Order Comment: Speci men Type: BLOOD SPECIMEN Ordering Facility: [facility] Address: [address] [place] [address] Performed By: #### 2 777-1, 15876-1, #### [facility] CLIA [id number] [address] [place] Neutrophils/100 WBC (Bld) 65.9 % Normal [facility] Comment on above: Order Comment: Speci men Type: BLOOD SPECIMEN Ordering Facility: [facility] Address: [address] [place] [address] Performed By: #### 2 777-1, 25223-5, #### [facility] CLIA [id number] [address] [place] Nucleated RBC (Bld) [#/Vol] 10*3/uL Normal <0.01 [facility] Comment on above: Order Comment: Speci men Type: BLOOD SPECIMEN Ordering Facility: [facility] Address: [address] [place] [address] Performed By: #### 2 777-1, 20042-5, #### [facility] CLIA [id number] [address] [place] Nucleated RBC/100 WBC (Bld) [Ratio] 0.0 /100 WBC Normal [facility] Comment on above: Order Comment: Speci men Type: BLOOD SPECIMEN Ordering Facility: [facility] Address: [address] [place] [address] Performed By: #### 2 777-1, 37840-0, #### [facility] CLIA [id number] 1 [place] [address] [place] Platelet mean volume (Bld) [Entitic vol] 10.3 fL Normal 9.0-12.7 [facility] Comment on above: Order Comment: Speci men Type: BLOOD SPECIMEN Ordering Facility: [facility] Address: [address] [place] [address] Performed By: #### 2 777-1, 36121-4, #### [facility] CLIA [id number] 1 [place] [address] [place] Platelets (Bld) [#/Vol] 174 10*3/uL Normal 150-400 [facility] Comment on above: Order Comment: Speci men Type: BLOOD SPECIMEN Ordering Facility: [facility] Address: [address] [place] [address] Performed By: #### 2 777-1, 80636-2, #### [facility] CLIA [id number] 1 [place] [address] [place] RBC (Bld) [#/Vol] 3.80 10*6/uL Low 4.20-6.00 [facility] Comment on above: Order Comment: Speci men Type: BLOOD SPECIMEN Ordering Facility: [facility] Address: [address] [place] [address] Performed By: #### 2 777-1, 02830-8, #### [facility] CLIA [id number] 1 [place] [address] [place] WBC (Bld) [#/Vol] 6.77 10*3/uL Normal 3.70-11.00 [facility] Comment on above: Order Comment: Speci men Type: BLOOD SPECIMEN Ordering Facility: [facility] Address: [address] [place] [address] Performed By: #### 2 777-1, 59800-6, #### [facility] CLIA [id number] [address] [place] CONSULTon 02-26-2025 CONSULT HNO ID: [id number] Author: RICK BRITO MD Service: Cardiovascular Medicine [...] no results documented. Who presented to the [place] ED on February 24, 2025 with complaints of abdominal pain. Found to have gastric outlet obstruction, so NG tube was placed and he was transferred to [facility] on 02/25. Patient underwent EGD on [...] CONSULT PROGon 02-26-2025 CONSULT PROG HNO ID: [id number] Author: ALEJANDRO LAM MD Service: General Surgery [...] questions or concerns Mon-Sun 6a-5p please page [phone]. After 5pm and on Weekends and Holidays, please page [phone] if in ICU or [phone] if on RNF. SUBJECTIVE: No acute events [...] - 02/26/2565802/26/25 07 - 02/27/25 0659 Shift 0041-1071 7191-4575 2334-8852 24 Hour Total 7388-1099 0444-3703 6596-9509 24 Hour Total INTAKE Shift Total OUTPUT Urine 400 275 675 Void (ml) 400 275 675 Urine Not Saved. 1 x 1 x Tubes 250 650 900 Output mL (I/O) (GI/ Feeding 02/24/25 External Facility [facility]) 250 650 900 Shift Total 557 694 8508 Weight (kg) 64.2 64.2 64.2 64.2 64.2 [...] (Age over 85 or impaired cognition):Consult to Maintenance Of Way Supervisor Palliative Care/Hospice: Consult not required Rehab/Therapy: PT/OT Recommendations: PT: OT: Swallow: Speech Recommendations: Speech: Speech Diet: Nutrition: Consult not required Nutrition Recommendations: MST: Total MST Score (Calculated): 5 Miter Sawyer: Pharmacy: Consult not needed Social Work: NA Anticipate (more content not included)... Normal [facility] CONSULT PROG HNO ID: [id number] Author: JOSE HAYES MD Service: General Surgery [...] questions or concerns Mon-Fri 6a-5p please page [phone]. After 5pm and on Weekends and Holidays, please page [phone]. SUBJECTIVE: NAEON. Pt continues to have NG [...] 0659 02/26/25 07 - 02/27/25 0659 Shift 0698-0986 6295-0083 8618-3569 24 Hour Total 7629-2809 5205-0374 6481-0259 24 Hour Total INTAKE Shift Total OUTPUT Urine 400 275 675 Void (ml) 400 275 675 Urine Not Saved. 1 x 1 x Tubes 250 650 900 Output mL (I/O) (GI/ Feeding 02/24/25 External Facility [facility]) 250 650 900 Shift Total 840 906 7312 Weight (kg) 64.2 64.2 64.2 64.2 64.2 [...] Speci men Type: BLOOD SPECIMEN Ordering Facility: [facility] Address: [address] [place] [address] Performed By: #### 2 777-1, 37888-0, #### [facility] CLIA [id number] [address] OF [facility] ALP [Catalytic activity/Vol] 51 U/L Normal 38-113 [facility] Comment on above: Order Comment: Speci men Type: BLOOD SPECIMEN Ordering Facility: [facility] Address: [address] [place] [address] Performed By: #### 2 777-1, 27090-3, #### [facility] CLIA [id number] [address] STATES OF [facility] ALT With P-5'-P [Catalytic activity/Vol] 11 U/L Normal 10-54 [facility] Comment on above: Order Comment: Speci men Type: BLOOD SPECIMEN Ordering Facility: [facility] Address: [address] [place] [address] Performed By: #### 2 777-1, 28677-0, #### [facility] CLIA [id number] [address] Anion gap [Moles/Vol] 10 mmol/L Normal 8-15 [facility] Comment on above: Order Comment: Speci men Type: BLOOD SPECIMEN Ordering Facility: [facility] Address: [address] [place] [address] Performed By: #### 2 777-1, , #### [facility] CLIA [id number] 1 [place] [address] [place] AST With P-5'-P [Catalytic activity/Vol] 20 U/L Normal 14-40 [facility] Comment on above: Order Comment: Speci men Type: BLOOD SPECIMEN Ordering Facility: [facility] Address: [address] [place] [address] Performed By: #### 2 777-1, , #### [facility] CLIA [id number] 1 [place] [address] [place] Bilirubin [Mass/Vol] 0.6 mg/dL Normal 0.2-1.3 [facility] Comment on above: Order Comment: Speci men Type: BLOOD SPECIMEN Ordering Facility: [facility] Address: [address] [place] [address] Performed By: #### 2 777-1, , #### [facility] CLIA [id number] 1 [place] [address] [place] Calcium [Mass/Vol] 9.3 mg/dL Normal 8.5-10.2 [facility] Comment on above: Order Comment: Speci men Type: BLOOD SPECIMEN Ordering Facility: [facility] Address: [address] [place] [address] Performed By: #### 2 777-1, , #### [facility] CLIA [id number] 1 [place] [address] [place] Chloride [Moles/Vol] 99 mmol/L Normal 98-107 [facility] Comment on above: Order Comment: Speci men Type: BLOOD SPECIMEN Ordering Facility: [facility] Address: [address] [place] [address] Performed By: #### 2 777-1, , #### [facility] CLIA [id number] 1 [place] [address] [place] CO2 [Moles/Vol] 37 mmol/L High 22-30 [facility] Comment on above: Order Comment: Speci men Type: BLOOD SPECIMEN Ordering Facility: [facility] Address: [address] [place] [address] Performed By: #### 2 777-1, 36659-1, #### [facility] CLIA [id number] [address] [place] Creatinine [Mass/Vol] 0.40 mg/dL Low 0.73-1.22 [facility] Comment on above: Order Comment: Speci men Type: BLOOD SPECIMEN Ordering Facility: [facility] Address: [address] [place] [address] Performed By: #### 2 777-1, , #### [facility] CLIA [id number] [address] STATES OF [facility] eGFRcr SerPlBld CKD-EPI 2020 106 mL/min/1.73m??? Normal >=60 [facility] Comment on above: Order Comment: Speci men Type: BLOOD SPECIMEN Ordering Facility: [facility] Address: [address] [place] [address] Result Comment: Genet mated Glomerular Filtration Rate [...] actual GFR. Performed By: #### 2 777-1, 57519-6, #### [facility] CLIA [id number] [address] [place] Glucose [Mass/Vol] 85 mg/dL Normal 74-99 [facility] Comment on above: Order Comment: Speci men Type: BLOOD SPECIMEN Ordering Facility: [facility] Address: [address] [place] [address] Result Comment: The [place] [employer] Association (ADA) provides guidance for cutoff [...] Standards of Medical Care in Diabetes 2016, [place] [employer]. Diabetes Care. 2016.39(Suppl 1). Performed By: #### 2 777-1, 09958-9, #### [facility] CLIA [id number] 1 [place] [address] [place] Potassium [Moles/Vol] 2.6 mmol/L Low 3.7-5.1 [facility] Comment on above: Order Comment: Melia zuluaga Type: BLOOD SPECIMEN Ordering Facility: [facility] Address: [address] [place] [address] Performed By: #### 2 777-1, , #### [facility] CLIA [id number] 1 [place] [address] [place] Protein [Mass/Vol] 6.1 g/dL Low 6.3-8.0 [facility] Comment on above: Order Comment: Melia zuluaga Type: BLOOD SPECIMEN Ordering Facility: [facility] Address: [address] [place] [address] Performed By: #### 2 777-1, , #### [facility] CLIA [id number] 1 [place] [address] [place] Sodium [Moles/Vol] 146 mmol/L High 136-144 [facility] Comment on above: Order Comment: Melia zuluaga Type: BLOOD SPECIMEN Ordering Facility: [facility] Address: [address] [place] [address] Performed By: #### 2 777-1, , #### [facility] CLIA [id number] 1 [place] [address] [place] Urea nitrogen [Mass/Vol] 22 mg/dL Normal 9-24 [facility] Comment on above: Order Comment: Speci men Type: BLOOD SPECIMEN Ordering Facility: [facility] Address: [facility] [place] [address] Performed By: #### 2 777-1, 65787-9, 41974-4 #### [facility] CLIA [id number] [address] [place] [id number] [place] ECHOon 02-26-2025 Echocardiography Echocardiography Rep ort: Transthoracic Echo [facility] Date of service: 02/26/2025 1:57[facility] Ordering physician: KAREEM PEREZ Exam indication: Abnormal ECG Technologist: Summer Calderon [facility] Interpreting physician: Dedra Pruitt MD PATIENT: Name: [...] * * Final * * * CC [facility] : [id number] yngoDynamicsSISUID Normal [facility] Magnesium SerPl-mCncon 02-26 Magnesium [Mass/Vol] 2.3 mg/dL Normal 1.7-2.3 [facility] Comment on above: Order Comment: Speci men Type: BLOOD SPECIMEN Ordering Facility: [facility] Address: [address] [place] [address] Performed By: #### 2 777-1, 98436-4, 12823-7 #### [facility] CLIA [id number] [address] NUTRITIONon 02-26-2025 NUTRITION HNO ID: [id number] Author: GERRY MILLAN RD Service: Nutrition Therapy [...] per GI note now , 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 + CT imaging for large obstructing Hiatal Hernia Nutrition Intake Prior to Admission: Unable to determine Current Nutrition Intake: NPO Dosing Weight: 64.2 kg (141 lb 8.6 oz) Estimated kilocalorie needs: 6723-1709 Calorie Calculation Method: 30-35 kcals/kg Estimated protein [...] Airways Drain Duration GI/ Feeding 02/26/25 1143 [facility] Gastric Left Naris <1 day MNT Billing: $ Routine Care : 1 unit (3 attempts, @ EGD) SIGNATURE: Gerry Millan RD PATIENT NAME: Jeanie Rankin DATE: February 26, 2025 TIME: 7:23 AM Normal [facility] Pathology biopsy report Bret (Tiss)on 02-26-2025 AP DISCLAIMER Normal [facility] Comment on above: Order Comment: Speci men Type: TISSUE SPECIMENOrdering Facility: [facility] Address: [address] [place] [address] Result Comment: Eliseo garcia Developed Test (LDT) Disclaimer: Performance characteristics of immunohistochemical, immunofluorescent, and chromogenic in-situ hybridization tests have been determined by the performing laboratory within the [facility] Department of Pathology and Laboratory Medicine ([facility], [facility], [facility], [facility], [facility], [facility], or [facility]) in a manner consistent with CLIA requirements. One or more of these tests may not have been cleared or approved by the FDA. The [facility] Department of Pathology and Laboratory Medicine is regulated under CLIA as qualified to perform high-complexity testing. These tests are used for clinical purposes. These should not be regarded as investigational or for research. Positive and negative controls stain appropriately. Performed By: #### 6 6121-5 ####[id number] [address] CASE REPORT Normal [facility] Comment on above: Order Comment: Melia zuluaga Type: TISSUE SPECIMENOrdering Facility: [facility] Address: [address] [place] [address] Result Comment: Surg [facility] Pathology Report Case: [id number] Authorizing Provider: Nadiya Camilo, Collected: 02/26/2025 11:36 AM Ordering Location: [facility] Received: 02/26/2025 03:29 PM Pathologist: Pilo Lambert MD Specimen: Stomach, Antrum, Biopsy, r/o dysplasia and malignancy Performed By: #### 6 6121-5 ####[facility] [id number] [address] STATES OF [facility] CLINICAL HISTORY Normal [facility] Comment on above: Order Comment: Melia zuluaga Type: TISSUE SPECIMENOrdering Facility: [facility] Address: [address] [place] [address] Result Comment: Asso ciated Diagnoses: K31.1 - Gastric outlet obstruction (HCC) R11.2 - Nausea and vomiting, unspecified vomiting type Z46.59 - Encounter for nasogastric (NG) tube placement Performed By: #### 6 6121-5 ####[facility] [id number] [address] DIAGNOSIS COMMENT The case was reviewe d by Dr. Tricia Worrell who agrees with the interpretation. Normal [facility] Comment on above: Order Comment: Speci men Type: TISSUE SPECIMENOrdering Facility: [facility] Address: [address] [place] [address] Performed By: #### 6 6121-5 ####[facility] [id number] [address] FINAL DIAGNOSIS Normal [facility] Comment on above: Order Comment: Speci men Type: TISSUE SPECIMENOrdering Facility: [facility] Address: [address] [place] [address] Result Comment: Nette patel Antrum, Biopsy: - Gastric mucosa with intestinal metaplasia (see comment). - Negative for dysplasia and malignancy. at 1228 EDT Performed By: #### 6 6121-5 ####[facility] [id number] [address] FINAL PERFORMING LAB Normal [facility] Comment on above: Order Comment: Speci men Type: TISSUE SPECIMENOrdering Facility: [facility] Address: [address] [place] [address] Result Comment: Diag nostic interpretation performed at: [facility], [address] [place] [address] CLIA# [id number] Calibration Technician: Chip Dennis MD Performed By: #### 6 6121-5 ####[facility] [id number] [address] GROSS DESCRIPTION [facility] Comment on above: Order Comment: Speci men Type: TISSUE SPECIMENOrdering Facility: [facility] Address: [address] [place] [address] Result Comment: Larry. Anai patel, Antrum, Biopsy Received in formalin and designated "stomach antrum biopsy" are fragments of pantoja tissue with an aggregate measurement of 0.8 x 0.3 x 0.1 cm. The specimen is entirely submitted in cassette A1. KM February 26, 2025 3:32 PM Gross examination performed at [facility], [address] [place] [address] Performed By: #### 6 6121-5 ####[facility] [id number] [address] [place] Phosphate SerPl-mCncon 02-26 Phosphate [Mass/Vol] 2.7 mg/dL Normal 2.7-4.8 [facility] Comment on above: Order Comment: Speci men Type: BLOOD SPECIMEN Ordering Facility: [facility] Address: [address] [place] [address] [place] [address] Performed By: #### 2 777-1, 96574-8, 15378-9 #### [facility] CLIA [id number] [address] [place] [address] [place] THERAPY NTon 02-26-2025 THERAPY NT HNO ID: [id number] Author: ELIDIA MENJIVAR PT Service: Physical Therapy Author Type: Physical Therapist Type: Therapy (PT/OT/Speech/Resp) Filed: 02/26/2025 10:43 Note Text: PHYSICAL THERAPY MISSED VISIT SERVICE DATE: 02/26/2025 SERVICE TIME: 1042 ROOM: [place] [address]) Patient not seen due to Test / Procedure. Off the floor at [facility]. SIGNATURE: Elidia Menjivar PT PATIENT NAME: Jeanie Oliverc DATE: February 26, 2025 TIME: 10:43 AM Normal [facility] THERAPY NT HNO ID: [id number] Author: MIRTA LEON CCC-EDUARDO Service: Speech/Swallow Author Type: Speech Language Pathologist Type: Therapy (PT/OT/Speech/Resp) Filed: 02/26/2025 09:28 Note Text: SPEECH THERAPY MISSED VISIT SERVICE DATE: 02/26/2025 SERVICE TIME: 926 ROOM: [id number] Patient not seen due to Test / Procedure. NPO for EGD. SIGNATURE: MAGGIE ParksDEWER PATIENT NAME: Jeanie Oliverc DATE: February 26, 2025 TIME: 9:28 AM Normal [facility] Upper GI endoscopyon 025 Upper GI endoscopy [facility] Gastrointestinal Endoscopy Patient Name: Jeanie Rankin Procedure Date: 02/26/2025 10:56 AM Date of : 1940 Admit Type: Inpatient Room: [place] [address] Gender: Male Note Status: Finalized Attending MD: Nadiya Camilo MD, [id number] Procedure: Upper GI endoscopy Indications: Suspected gastric [...] antiplatelet agents. Procedure Code(s): --- Professional --- 47119, Esophagogastroduodenoscopy, flexible, transoral; with biopsy, single or multiple --- Technical --- 90221, Esophagogastroduodenoscopy, flexible, transoral; with biopsy, single or multiple Diagnosis Code(s): --- Professional --- K20.90, Esophagitis, unspecified without bleeding K31.89, Other diseases of stomach and duodenum --- Technical --- K20.90, Esophagitis, unspecified without bleeding K31.89, Other diseases of stomach and duodenum CPT copyright 202 [place] [employer]. All rights reserved. The codes documented in this report are preliminary and upon junior architect review may be revised to meet current compliance requirements. Attending Participation: I personally performed the entire procedu (more content not included)... Normal [facility] Basic metabolic 2000 panelon 02-25-2025 Anion gap [Moles/Vol] 10 mmol/L Normal 8-15 [facility] Comment on above: Order Comment: Speci men Type: BLOOD SPECIMEN Ordering Facility: [facility] Address: [address] [place], [place] [address] Performed By: #### 2 4321-2 #### [facility] CLIA [id number] [address] [place] Calcium [Mass/Vol] 9.7 mg/dL Normal 8.5-10.2 [facility] Comment on above: Order Comment: Speci men Type: BLOOD SPECIMEN Ordering Facility: [facility] Address: [address] [place] [address] Performed By: #### 2 4321-2 #### [facility] CLIA [id number] 1 [place] [address] [place] Chloride [Moles/Vol] 94 mmol/L Low 98-107 [facility] Comment on above: Order Comment: Speci men Type: BLOOD SPECIMEN Ordering Facility: [facility] Address: [address] [place] [address] Performed By: #### 2 4321-2 #### [facility] CLIA [id number] [address] [place] CO2 [Moles/Vol] 39 mmol/L High 22-30 [facility] Comment on above: Order Comment: Speci men Type: BLOOD SPECIMEN Ordering Facility: [facility] Address: [address] [place] [address] Performed By: #### 2 4321-2 #### [facility] CLIA [id number] [address] [place] Creatinine [Mass/Vol] 0.55 mg/dL Low 0.73-1.22 [facility] Comment on above: Order Comment: Speci men Type: BLOOD SPECIMEN Ordering Facility: [facility] Address: [address] [place] [address] Performed By: #### 2 4321-2 #### [facility] CLIA [id number] [address] [place] eGFRcr SerPlBld CKD-EPI 2020 97 mL/min/1.73m??? Normal >=60 [facility] Comment on above: Order Comment: Speci men Type: BLOOD SPECIMEN Ordering Facility: [facility] Address: [address] [place] [address] Result Comment: Genet mated Glomerular Filtration Rate [...] GFR. Performed By: #### 2 4321-2 #### [facility] CLIA [id number] 1 [place] [address] [place] Glucose [Mass/Vol] 137 mg/dL High 74-99 [facility] Comment on above: Order Comment: Melia zuluaga Type: BLOOD SPECIMEN Ordering Facility: [facility] Address: [address] [place] [address] Result Comment: The [place] Diabetes Association (ADA) provides guidance for cutoff [...] Standards of Medical Care in Diabetes 2016, [place] [employer]. Diabetes Care. 2016.39(Suppl 1). Performed By: #### 2 4321-2 #### [facility] CLIA [id number] 1 [place] [address] [place] Potassium [Moles/Vol] 3.2 mmol/L Low 3.7-5.1 [facility] Comment on above: Order Comment: Melia zuluaga Type: BLOOD SPECIMEN Ordering Facility: [facility] Address: [address] [place] [id number] Performed By: #### 2 4321-2 #### [facility] CLIA [id number] [address] Sodium [Moles/Vol] 143 mmol/L Normal 136-144 [facility] Comment on above: Order Comment: Speci men Type: BLOOD SPECIMEN Ordering Facility: [facility] Address: [address] [place] [address] Performed By: #### 2 4321-2 #### [facility] CLIA [id number] [address] [place] Urea nitrogen [Mass/Vol] 20 mg/dL Normal 9-24 [facility] Comment on above: Order Comment: Speci men Type: BLOOD SPECIMEN Ordering Facility: [facility] Address: [address] [place] [address] Performed By: #### 2 4321-2 #### [facility] CLIA [id number] [address] OF [facility] CBC panel Auto (Bld)on 02-25 Erythrocyte distribution width (RBC) [Ratio] 12.6 % Normal 11.5-15.0 [facility] Comment on above: Order Comment: Speci men Type: BLOOD SPECIMEN Ordering Facility: [facility] Address: [address] [place] [address] Performed By: #### 5 8410-2 #### [facility] CLIA [id number] [address] Hematocrit (Bld) [Volume fraction] 40.1 % Normal 39.0-51.0 [facility] Comment on above: Order Comment: Speci men Type: BLOOD SPECIMEN Ordering Facility: [facility] Address: [address] [place] [address] Performed By: #### 5 8410-2 #### [facility] CLIA [id number] [address] [place] Hemoglobin (Bld) [Mass/Vol] 13.8 g/dL Normal 13.0-17.0 [facility] Comment on above: Order Comment: Speci men Type: BLOOD SPECIMEN Ordering Facility: [facility] Address: [address] [place] [address] Performed By: #### 5 8410-2 #### [facility] CLIA [id number] [address] MCH (RBC) [Entitic mass] 31.9 pg Normal 26.0-34.0 [facility] Comment on above: Order Comment: Speci men Type: BLOOD SPECIMEN Ordering Facility: [facility] Address: [address] [place] [address] Performed By: #### 5 8410-2 #### [facility] CLIA [id number] [address] MCHC (RBC) [Mass/Vol] 34.4 g/dL Normal 30.5-36.0 [facility] Comment on above: Order Comment: Speci men Type: BLOOD SPECIMEN Ordering Facility: [facility] Address: [address] [place] [address] Performed By: #### 5 8410-2 #### [facility] CLIA [id number] [address] MCV (RBC) [Entitic vol] 92.6 fL Normal 80.0-100.0 [facility] Comment on above: Order Comment: Speci men Type: BLOOD SPECIMEN Ordering Facility: [facility] Address: [address] [place] [address] Performed By: #### 5 8410-2 #### [facility] CLIA [id number] [address] Nucleated RBC (Bld) [#/Vol] 10*3/uL Normal <0.01 [facility] Comment on above: Order Comment: Speci men Type: BLOOD SPECIMEN Ordering Facility: [facility] Address: [address] [place] [address] Performed By: #### 5 8410-2 #### [facility] CLIA [id number] [address] Platelet mean volume (Bld) [Entitic vol] 10.3 fL Normal 9.0-12.7 [facility] Comment on above: Order Comment: Speci men Type: BLOOD SPECIMEN Ordering Facility: [facility] Address: [address] [place] [address] Performed By: #### 5 8410-2 #### [facility] CLIA [id number] [address] Platelets (Bld) [#/Vol] 227 10*3/uL Normal 150-400 [facility] Comment on above: Order Comment: Speci men Type: BLOOD SPECIMEN Ordering Facility: [facility] Address: [address] [place] [address] Performed By: #### 5 8410-2 #### [facility] CLIA [id number] [address] RBC (Bld) [#/Vol] 4.33 10*6/uL Normal 4.20-6.00 [facility] Comment on above: Order Comment: Speci men Type: BLOOD SPECIMEN Ordering Facility: [facility] Address: [address] [place] [address] Performed By: #### 5 8410-2 #### [facility] CLIA [id number] [address] WBC (Bld) [#/Vol] 8.90 10*3/uL Normal 3.70-11.00 [facility] Comment on above: Order Comment: Speci men Type: BLOOD SPECIMEN Ordering Facility: [facility] Address: [address] [place] [address] Performed By: #### 5 8410-2 #### [facility] CLIA [id number] [address] CONSULTon 02-25-2025 CONSULT HNO ID: [id number] Author: RUSSELL LOPEZ MD Service: General Surgery [...] 02/24/2025 Allergen Noted Reaction ADHESIVE 03/18/2009 NEOSPORIN [SUZTNGAR-CHEJXQCWYF-ZK*08/0 07/2005 Rash and Itching Fully Assessed 02/24/2025 [...] Normal [facility] CONSULT HNO ID: [id number] Author: JULY KENT APRN.[employer] Service: Gastroenterology Author Type: Nurse Practitioner Type: [...] presents with nausea and vomiting. Presented to [facility] on 02/24/2025. On , labs as [...] QTC Calculation(Bazett) : 495 ms Calculated P [place] : 42 degrees Calculated R [place] : 20 degrees Calculated T [place] : -61 degrees SINUS BRADYCARDIA RIGHT BUNDLE BRANCH BLOCK T WAVE ABNORMALITY, CONSIDER INFEROLATERAL ISCHEMIA ABNORMAL ECG WHEN COMPARED WITH ECG OF 25-Feb-2025 18:58, NO SIGNIFICANT CHANGE WAS FOUND Confirmed by ZAKIA ESTRADA MD ([id number]) on 02/27/2025 6:40:47 PM NAME : JEANIE RANKIN PID : [id number] : 1940 Gender : Male Race : ORD : [id number] Procedure Date : Feb 25 2025 21:08:19 Edit Date : Feb 27 2025 18:40:52 Diagnosis: SINUS BRADYCARDIA RIGHT BUNDLE BRANCH BLOCK T WAVE ABNORMALITY, CONSIDER INFEROLATERAL ISCHEMIA ABNORMAL ECG WHEN COMPARED WITH ECG OF 25-Feb-2025 18:58, NO SIGNIFICANT CHANGE WAS FOUND Confirmed by ZAKIA ESTRADA MD ([id number]) on 02/27/2025 6:40:47 PM Test Reason : Arrhythmia Location : 200 : [facility]27 Overread By : ZAKIA ESTRADA MD Edited By : ZAKIA ESTRADA MD Referred By : , Acquired by : DILLON SANTIAGO [facility] ECG COMPLETE Ventricular Rate : 5 6 BPM Atrial Rate : 56 BPM P-R Interval : 210 ms QRS Duration : 158 ms Q-T Interval : 504 ms QTC Calculation(Bazett) : 486 ms Calculated P [place] : 30 degrees Calculated R [place] : 33 degrees Calculated T [place] : -54 degrees SINUS BRADYCARDIA WITH 1ST DEGREE A-V BLOCK RIGHT BUNDLE BRANCH BLOCK T WAVE ABNORMALITY, CONSIDER INFEROLATERAL ISCHEMIA ABNORMAL ECG NO PREVIOUS ECGS AVAILABLE Confirmed by ZAKIA ESTRADA MD ([id number]) on 02/27/2025 6:40:00 PM NAME : JEANIE RANKIN PID : [id number] : 1940 Gender : Male Race : ORD : [id number] Procedure Date : Feb 25 2025 18:58:18 Edit Date : Feb 27 2025 18:40:03 Diagnosis: SINUS BRADYCARDIA WITH 1ST DEGREE A-V BLOCK RIGHT BUNDLE BRANCH BLOCK T WAVE ABNORMALITY, CONSIDER INFEROLATERAL ISCHEMIA ABNORMAL ECG NO PREVIOUS ECGS AVAILABLE Confirmed by ZAKIA ESTRADA MD ([id number]) on 02/27/2025 6:40:00 PM Test Reason : Arrhythmia Location : 200 : [facility] Overread By : ZAKIA ESTRADA MD Edited By : ZAKIA ESTRADA MD Referred By : , Acquired by : DILLON SANTIAGO [facility] ED NOTEon 02-25-2025 ED NOTE HNO ID: [id number] Author: EUNICE BARKER RN Service: Emergency Medicine Author Type: Registered Nurse Type: ED Notes Filed: 02/25/2025 05:02 Note Text: Called 5400 at this time, RN to call back with questions Normal [facility] ED NOTE HNO ID: [id number] Author: EUNICE BARKER RN Service: Emergency Medicine Author Type: Registered Nurse Type: ED Notes Filed: 02/25/2025 02:14 Note Text: [phone] Jeni Sadler Normal [facility] ED NOTE HNO ID: [id number] Author: EUNICE BARKER RN Service: Emergency Medicine Author Type: Registered Nurse Type: ED Notes Filed: 02/25/2025 01:01 Note Text: NG irrigated with 60 ml of sterile water, then connected to low intermittent suctioning. Normal [facility] ED PROV NOTEon 02-25-2025 ED PROV NOTE HNO ID: [id number] Author: CARLA BERRY MD Service: Emergency Medicine Author Type: Physician Type: ED Provider Notes Filed: 02/25/2025 01:06 Note Text: Attending Note Brief HPI: Jeanie Rankin is a 84 year old male with a PMH as documented below who presents for evaluation of obstruction. Patient presented as a transfer from [place] emergency department where he went with recurrent [...] with signed paperwork at bedside transferred from [place] emergency department for gastric outlet obstruction. NG [...] [facility] ED PROV NOTE HNO ID: [id number] Author: CARLA BERRY MD Service: Emergency Medicine Author Type: Physician Type: ED Provider Notes Filed: 02/25/2025 23:56 Note Text: ED Provider Note Patient Name: Jeanie Rankin : 1940 SERVICE DATE: 02/24/25 History Patient presents with: Obstruction: Patient transfer from [place] for gastric outlet obstruction 2nd to herniation of gastric body. Patient arrives with NG tube in his left nare and pt states he has been unable to swallow since eating dinner last night. Pt arrives with [facility] paperwork as well. HPI The patient is an 84-year-old male with a past medical history of diverticulosis, esophagitis as well as previous history of B-cell nodule lymphoma presenting today for evaluation as a transfer from [place] for concern of a gastric outlet obstruction with NG tube in place. The patient states that yesterday evening following eating chicken with gravy and mashed potatoes he developed abdominal discomfort as well as difficulty swallowing resulting in nausea and vomiting without any diarrhea. When he was evaluated at [place], an NG tube was placed and laboratory [...] Melia zuluaga Type: BLOOD SPECIMEN Ordering Facility: [facility] Address: [address] [place] [address] Performed By: #### 2 777-1, 80095-5, #### [facility] CLIA [id number] [address] Troponin T.cardiac High sensitivity method [Mass/Vol] 81 ng/L High <12 [facility] Comment on above: Order Comment: Melia zuluaga Type: BLOOD SPECIMEN Ordering Facility: [facility] Address: [address] [place] [address] Performed By: #### 2 777-1, 04262-8, #### [employer] [facility] CLIA [id number] [address] [place] HISTORY PHYSICALon HISTORY PHYSICAL HNO ID: [id number] Author: DEISI VILLALTA MD Service: General Internal Medicine Author Type: Physician Type: H&P Filed: 02/25/2025 06:49 Note Text: DEPARTMENT OF HOSPITAL MEDICINE HISTORY AND PHYSICAL EXAM SERVICE DATE: 02/25/2025 SERVICE TIME: 5:49 AM Primary Care Physician: No primary care provider on file. NIGHT AND WEEKEND COVERAGE: From 7am - 7pm, please call Sound After 7pm, please call cross cover pager #[phone] Subjective CHIEF COMPLAINT: Abdominal pain, nausea and [...] [facility] HISTORY PHYSICAL HNO ID: [id number] Author: ALEJANDRO LAM MD Service: General Surgery [...] full of drainage prior to transfer to [facility] for further management. Patient also had [...] Speci men Type: BLOOD SPECIMEN Ordering Facility: [facility] Address: [address] [place] [address] Performed By: #### 2 777-1, 93408-1, 68230-1 #### [facility] CLIA [id number] [address] [place] [address] [place] NURSING PROGon 02-25-2025 NURSING PROG HNO ID: [id number] Author: MYA OROZCO RN Service: Nursing Author [...] (Portabl e)on 02-24-2025 Abdomen Single View (Portable) [facility] [address] [place] [id number] Abdomen Single View (Portable) MR#: [id number] Acct: [id number] Name: JEANIE RANKIN Rep #: [id number] : 1940 M 84 From: Ronnie Richards MD PCP: Dr. Taylor Zuniga DO Status: REG ER Study: Abdomen Single View (Portable) Date of Exam: 1 Exam# [id number] Ordering Dr: Zee Alonso DO PROCEDURE: ABDOMEN [...] terminates appropriately within the stomach. Reading Location: [facility] CC: Dr. Taylor Zuniga DO; Dr. Zee Alonso DO Clearance Center Manager: Signed Normal [facility] Abdomen/Pelvis without Conto n 02-24-2025 Abdomen/Pelvis without Cont [facility] [address] [place], [place] [id number] Abdomen/Pelvis without Cont MR#: [id number] Acct: [id number] Name: JEANIE RANKIN Rep #: [id number] : 1940 M 84 From: Ronnie Richards MD PCP: Dr. Taylor Zuniga, DO Status: REG ER Study: Abdomen/Pelvis without Cont Date of Exam: 02/05 05/31 Exam# [id number] Ordering Dr: Zee Alonso DO PROCEDURE: CT [...] exam. No other acute findings. Reading Location: [facility] CC: Dr. Taylor Zuniga DO; Dr. Zee Alonso DO Clearance Center Manager: Signed Normal [facility] Absolute lymphocyte countOrd ered By: Zee Alonso on 02-24-2025 Lymphocytes Auto (Unsp spec) [#/Vol] 0.43 10*3/uL Low 0.83-4.51 [facility] Absolute neutrophil countOrd ered By: Zee Alonso on 02-24-2025 Neutrophils (Bld) [#/Vol] 8.0 10*3/uL High 2.0-7.7 [facility] Anion gap in Serum or Plasma Ordered By: Zee Alonso on 02-24-2025 Anion gap [Moles/Vol] 13 mmol/L 5-15 [facility] Automated lymphocyte count a s percentage of total leukocytesOrdered By: Zee Alonso on 02-24-2025 Lymphocytes/100 WBC Auto (Unsp spec) 4.6 % Low 19-41 [facility] BUN/creatinine ratioOrdered By: Zee Alonso on 02-24-2025 Urea nitrogen/Creatinine [Mass ratio] 26.8 mg/mg High 10-20 [facility] Basophil percentageOrdered B y: Zee Alonso on 02-24-2025 Basophils/100 WBC (Bld) 0.1 % 0-1 [facility] Bilirubin, totalOrdered By: Zee Alonso on 02-24-2025 Bilirubin [Mass/Vol] 0.57 mg/dL 0.00-1.30 [facility] CBC W/Diff, Automatedon 02-05 Absolute Lymph 0.43 X10 3/uL Low 0.83-4.51 [facility] Comment on above: Performed By: #### L 100.0100, L500.2500 #### [facility] [address] [place], [place], [id number] Absolute Neut 8.0 X10 3/uL High 2.0-7.7 [facility] Comment on above: Performed By: #### L 100.0100, L500.2500 #### [facility] [address] [place], [address] Basophils/100 WBC (Bld) 0.1 % Normal 0-1 [facility] Comment on above: Performed By: #### L 100.0100, L500.2500 #### [facility] [address] [place], [address] Eosinophils/100 WBC (Bld) 0.0 % Normal 0-5 [facility] Comment on above: Performed By: #### L 100.0100, L500.2500 #### [facility] [address] [place], [address] Erythrocyte distribution width (RBC) [Ratio] 12.4 % Normal 11.6-14.6 [facility] Comment on above: Performed By: #### L 100.0100, L500.2500 #### [facility] [place], [address] Hematocrit (Bld) [Volume fraction] 41.8 % Normal 40-54 [facility] Comment on above: Performed By: #### L 100.0100, L500.2500 #### [facility] [address] [place], [address] Hemoglobin (Bld) [Mass/Vol] 14.4 g/dL Normal 13.0-16.5 [facility] Comment on above: Performed By: #### L 100.0100, L500.2500 #### [facility] [address] [place], [address] IG% 0.400 Normal 0.0-0.9 [facility] Comment on above: Result Comment: IG% - Immature Granulocytes (promyelocytes, myelocytes and metamyelocytes) > 1% indicates that a LEFT SHIFT is Present. Performed By: #### L 100.0100, L500.2500 #### [facility] [address] [place], [address] Lymphocytes/100 WBC (Bld) 4.6 % Low 19-41 [facility] Comment on above: Performed By: #### L 100.0100, L500.2500 #### [facility] [address] [place], [address] MCH (RBC) [Entitic mass] 31.5 pg Normal 27.0-32.0 [facility] Comment on above: Performed By: #### L 100.0100, L500.2500 #### [facility] [address] [place], [address] MCHC (RBC) [Mass/Vol] 34.4 g/dL Normal 32-36 [facility] Comment on above: Performed By: #### L 100.0100, L500.2500 #### [facility] [address] [place], [address] MCV (RBC) [Entitic vol] 91.5 fL Normal 80-94 [facility] Comment on above: Performed By: #### L 100.0100, L500.2500 #### [facility] [address] [place], [address] Monocytes/100 WBC (Bld) 8.4 % Normal 0-10 [facility] Comment on above: Performed By: #### L 100.0100, L500.2500 #### [facility] [address] [place], [address] Neutrophils/100 WBC (Bld) 86.5 % High 47-70 [facility] Comment on above: Performed By: #### L 100.0100, L500.2500 #### [facility] [address] [place], [address] Nucleated RBC (Bld) [#/Vol] 0 10*3/uL Normal 0-5 [facility] Comment on above: Performed By: #### L 100.0100, L500.2500 #### [facility] [address] [place], [address] Platelet mean volume (Bld) [Entitic vol] 10.0 fL Normal 6.2-12.0 [facility] Comment on above: Performed By: #### L 100.0100, L500.2500 #### [facility] [address] [place], [address] Platelets (Bld) [#/Vol] 247 10*3/uL Normal 150-450 [facility] Comment on above: Performed By: #### L 100.0100, L500.2500 #### [facility] [address] [place], [address] RBC (Bld) [#/Vol] 4.57 10*6/uL Low 4.6-6.2 [facility] Comment on above: Performed By: #### L 100.0100, L500.2500 #### [facility] [address] [place], [address] RDW SD 41.1 fl Normal 35.1-43.9 [facility] Comment on above: Performed By: #### L 100.0100, L500.2500 #### [facility] [address] [place], [address] WBC (Bld) [#/Vol] 9.3 10*3/uL Normal 4.4-11.0 [facility] Comment on above: Performed By: #### L 100.0100, L500.2500 #### [facility] [address] [place], [address] CT Chest, Abd, Pel w/Contras ton 02-24-2025 CT Chest, Abd, Pel w/Contrast [facility] [address] [place] [address] CT Chest, Abd, Pel w/Contrast MR#: [id number] Acct: [id number] Name: JEANIE RANKIN Rep #: [id number] : 1940 M 84 From: Gorge Pereyra MD PCP: Dr. Taylor Zuniga DO Status: REG ER Study: CT Chest, Abd, Pel w/Contrast Date of Exam: Exam# [id number] Ordering Dr: Zee Alonso DO PROCEDURE: CT [...] the diaphragm. Gastric decompression recommended. Reading [facility] CC: Dr. Taylor Zuniga DO; Dr. Zee Alonso DO Clearance Center Manager: Signed Normal [facility] Carbon dioxide, total [Moles /volume] in Central venous bloodOrdered By: Zee Alonso on 02-24-2025 CO2 [Moles/Vol] 36.6 mmol/L High 21.0-32.0 [facility] Chloride assayOrdered By: Maya Alonso on 02-24-2025 Chloride [Moles/Vol] 93 mmol/L Low 98-108 [facility] Comprehensive Metabolic Prof ilon 02-24-2025 Albumin [Mass/Vol] 4.7 g/dL Normal 3.4-4.8 [facility] Comment on above: Performed By: #### L 100.0100, L500.2500 #### [facility] [address] [place], [address] Albumin/Globulin [Mass ratio] 1.4 {ratio} Normal 0.9-2.4 [facility] Comment on above: Performed By: #### L 100.0100, L500.2500 #### [facility] [address] [place], [address] ALK PHOS 68 U/L Normal 40-129 [facility] Comment on above: Performed By: #### L 100.0100, L500.2500 #### [facility] [address] [place], [address] ALT [Catalytic activity/Vol] 13 U/L Normal <=46 [facility] Comment on above: Performed By: #### L 100.0100, L500.2500 #### [facility] [address] [place], [address] AST [Catalytic activity/Vol] 22 U/L Normal <=37 [facility] Comment on above: Performed By: #### L 100.0100, L500.2500 #### [facility] [address] [place], [address] Bilirubin [Mass/Vol] 0.57 mg/dL Normal 0.00-1.30 [facility] Comment on above: Performed By: #### L 100.0100, L500.2500 #### [facility] [address] [place], [address] BUN/CRE 26.8 RATIO High 10-20 [facility] Comment on above: Performed By: #### L 100.0100, L500.2500 #### [facility] [address] [place], [address] Calcium [Mass/Vol] 10.4 mg/dL Normal 7.6-11.0 [facility] Comment on above: Performed By: #### L 100.0100, L500.2500 #### [facility] [address] [place], [address] Chloride [Moles/Vol] 93 mmol/L Low 98-108 [facility] Comment on above: Performed By: #### L 100.0100, L500.2500 #### [facility] [address] [place], [address] CO2 [Moles/Vol] 36.6 mmol/L High 21.0-32.0 [facility] Comment on above: Performed By: #### L 100.0100, L500.2500 #### [facility] [address] [place], [address] Creatinine [Mass/Vol] 0.69 mg/dL Low 0.70-1.20 [facility] Comment on above: Performed By: #### L 100.0100, L500.2500 #### [facility] [address] [place], [address] ECRCL 61.97 ml/min Normal 50-250 [facility] Comment on above: Performed By: #### L 100.0100, L500.2500 #### [facility] [address] [place], [address] GAP 13 Normal 5-15 [facility] Comment on above: Performed By: #### L 100.0100, L500.2500 #### [facility] [address] [place], [address] GFR/1.73 sq M.predicted among non-blacks MDRD (S/P/Bld) [Vol rate/Area] 90 mL/min/{1.73_m2} Normal >60 [facility] Comment on above: Result Comment: mL/m in/1.73m2 CKD-EPI Creatinine Equation (2020) Performed By: #### L 100.0100, L500.2500 #### [facility] [address] [place], [address] Globulin (S) [Mass/Vol] 3.2 g/dL Normal 2.2-4.2 [facility] Comment on above: Performed By: #### L 100.0100, L500.2500 #### [facility] [address] [place], [address] Glucose [Mass/Vol] 190 mg/dL High 70-99 [facility] Comment on above: Performed By: #### L 100.0100, L500.2500 #### [facility] [address] [place], [address] Potassium [Moles/Vol] 3.5 mmol/L Normal 3.3-5.1 [facility] Comment on above: Performed By: #### L 100.0100, L500.2500 #### [facility] [address] [place], [address] Sodium [Moles/Vol] 142 mmol/L Normal 133-145 [facility] Comment on above: Performed By: #### L 100.0100, L500.2500 #### [facility] [address] [place], [address] T PROT 7.9 g/dL Normal 5.9-8.4 [facility] Comment on above: Performed By: #### L 100.0100, L500.2500 #### [facility] [address] [place], [address] Urea nitrogen [Mass/Vol] 18 mg/dL Normal 4-19 [facility] Comment on above: Performed By: #### L 100.0100, L500.2500 #### [facility] [address] [place], [address] Consultation - Surgicalon Consultation - Surgical [facility] Medical Records Department [address] [place] [address] Consultation - Surgical 02/24/25 1900 MR#: [id number] Acct: [id number] Name: JEANIE RANKIN Rep #: [id number] : 1940 84 From: Windy Jasso MD [...] tertiary care . Windy Jasso M.D. Pager: [phone] [facility] [address] [place] [address], [facility]patient [facility], [address] [place] [address] Office: [phone] HPI Consult Data Date of Consult: 02/25/25 [...] body distended with fluid and air-read pending [facility] Medical History (Updated 02/24/25 @ 21:43 by [...] Neosporin AdvReac Mild Itching Verified 02/24/25 17:08 ([id number])) neomycin (From Neosporin AdvReac Mild Itching Verified 02/24/25 17:08 (qkr-lhb-xhtiq)) polymyxin B (From Neosporin AdvReac Mild Itching Verified 02/24/25 17:08 (fyg-wyp-ulqih)) adhesive tape AdvReac Unknown Verified 02/24/25 17:08 [...] Labs: Labor (more content not included)... Normal [facility] ED NOTEon 02-24-2025 ED NOTE HNO ID: [id number] Author: GUS NICOLE RN Service: ? Author Type: Registered Nurse Type: ED Notes Filed: 02/24/2025 23:23 Note Text: Bed: 35-ED Expected date: Expected time: Means of arrival: Comments: [facility] Emergency Department Summary on 02-24-2025 Emergency Department Summary [facility] Medical Records Department [address] [place] [address] Emergency Department Summary 02/24/25 MR#: [id number] Acct: [id number] Name: JEANIE RANKIN Rep #: [id number] : 1940 84 From: Zee Alonso DO [...] in his stool or black tarry stool. [facility] Medical History (Updated 02/24/25 @ 21:43 [...] Neosporin AdvReac Mild Itching Verified 02/24/25 17:08 ([id number]-[id number])) neomycin (From Neosporin AdvReac Mild Itching Verified 02/24/25 17:08 (aqj-ldh-idoip)) polymyxin B (From Neosporin AdvReac Mild Itching Verified 02/24/25 17:08 (hir-jjp-cfqdp)) adhesive tape AdvReac Unknown Verified 02/24/25 17:08 [...] developed G (more content not included)... Normal [facility] Eosinophil percentageOrdered By: Zee Alonso on 02-24-2025 Eosinophils/100 WBC (Bld) 0.0 % 0-5 [facility] Erythrocyte distribution wid th ratioOrdered By: Zee Alonso on 02-24-2025 Erythrocyte distribution width (RBC) [Ratio] 12.4 % 11.6-14.6 [facility] Erythrocyte distribution wid th standard deviationOrdered By: Zee Alonso on 02-24-2025 Erythrocyte distribution width (RBC) [Ratio] 41.1 fl 35.1-43.9 [facility] Glomerular filtration rate ( GFR) estimation/1.73 sq m using serum, plasma, or whole bOrdered By: Zee Alonso on 02-24-2025 GFR/1.73 sq M.predicted among non-blacks MDRD (S/P/Bld) [Vol rate/Area] 90 mL/min/{1.73_m2} >60 [facility] Comment on above: mL/min/1.73m2 CKD-EP I Creatinine Equation (2020) Hematocrit Auto (Bld) [Volum e fraction]Ordered By: Zee Alonso on 02-24-2025 Hematocrit (Bld) [Volume fraction] 41.8 % 40-54 [facility] Hemoglobin measurementOrdere d By: Zee Alonso on 02-24-2025 Hemoglobin (Bld) [Mass/Vol] 14.4 g/dL 13.0-16.5 [facility] Immature granulocytes/100 WB C Auto (Bld)Ordered By: Zee Alonso on 02-24-2025 Immature granulocytes/100 WBC (Bld) 0.400 % 0.0-0.9 [facility] Comment on above: IG% - Immature Granu locytes (promyelocytes, myelocytes and metamyelocytes) > 1% indicates that a LEFT SHIFT is Present. Laboratory - Chemistry and C hemistry - challengeOrdered By: Zee Alonso on 02-24-2025 AST [Catalytic activity/Vol] 22 U/L <38 [facility] MCV (mean corpuscular volume ) determinationOrdered By: Zee Alonso on 02-24-2025 MCV (RBC) [Entitic vol] 91.5 fL 80-94 [facility] Mean corpuscular hemoglobin (MCH) determinationOrdered By: Zee Alonso on 02-24-2025 MCH (RBC) [Entitic mass] 31.5 pg 27.0-32.0 [facility] Mean corpuscular hemoglobin concentration (MCHC) determinationOrdered By: Zee Alonso on 02-24-2025 MCHC (RBC) [Mass/Vol] 34.4 g/dL 32-36 [facility] Mean platelet volume determi nationOrdered By: Zee Alonso on 02-24-2025 Platelet mean volume (Bld) [Entitic vol] 10.0 fL 6.2-12.0 [facility] Monocyte percentageOrdered B y: Zee Alonso on 02-24-2025 Monocytes/100 WBC (Bld) 8.4 % 0-10 [facility] Neutrophil percentageOrdered By: Zee Alonso on 02-24-2025 Neutrophils/100 WBC (Bld) 86.5 % High 47-70 [facility] Nucleated red blood cell per centageOrdered By: Zee Alonso on 02-24-2025 Nucleated RBC/100 WBC (Bld) [Ratio] 0 % 0-5 [facility] Platelet countOrdered By: Maya Alonso on 02-24-2025 Platelets (Bld) [#/Vol] 247 10*3/uL 150-450 [facility] Potassium measurement (mass/ volume)Ordered By: Zee Alonso on 02-24-2025 Potassium (Unsp spec) [Mass/Vol] 3.5 mmol/L 3.3-5.1 [facility] RBC Auto (Bld) [#/Vol]Ordere d By: Zee Alonso on 02-24-2025 RBC (Bld) [#/Vol] 4.57 10*6/uL Low 4.6-6.2 [facility] Serum creatinine measurement (mass/volume)Ordered By: Zee Alonso on 02-24-2025 Creatinine [Mass/Vol] 0.69 mg/dL Low 0.70-1.20 [facility] Serum globulin measurementOr dered By: Zee Alonso on 02-24-2025 Globulin (S) [Mass/Vol] 3.2 g/dL 2.2-4.2 [facility] Serum glucose measurement (m ass/volume)Ordered By: Zee Alonso on 02-24-2025 Glucose [Mass/Vol] 190 mg/dL High 70-99 [facility] Serum or plasma alanine kumar otransferase (ALT) measurementOrdered By: Zee Alonso on 02-24-2025 ALT [Catalytic activity/Vol] 13 U/L <47 [facility] Serum or plasma albumin marialuisa urement (mass/volume)Ordered By: Zee Alonso on 02-24-2025 Albumin [Mass/Vol] 4.7 g/dL 3.4-4.8 [facility] Serum or plasma albumin/glob ulin mass ratioOrdered By: Zee Alonso on 02-24-2025 Albumin/Globulin [Mass ratio] 1.4 {ratio} 0.9-2.4 [facility] Serum or plasma alkaline gilberto sphatase measurementOrdered By: Zee Alonso on 02-24-2025 ALP [Catalytic activity/Vol] 68 U/L 40-129 [facility] Serum or plasma calcium marialuisa urement (mass/volume)Ordered By: Rem Ungdayanara on 02-24-2025 Calcium [Mass/Vol] 10.4 mg/dL 7.6-11.0 [facility] Serum or plasma urea nitroge n measurement (mass/volume)Ordered By: Remus Alonso on 02-24-2025 Urea nitrogen [Mass/Vol] 18 mg/dL 4-19 [facility] Sodium levelOrdered By: Ibis Alonso on 02-24-2025 Sodium [Moles/Vol] 142 mmol/L 133-145 [facility] Total proteinOrdered By: Radha Alonso on 02-24-2025 Protein [Mass/Vol] 7.9 g/dL 5.9-8.4 [facility] White blood cell (WBC) count Ordered By: Zee Alonso on 02-24-2025 WBC (Bld) [#/Vol] 9.3 10*3/uL 4.4-11.0 [facility] Absolute lymphocyte countOrd ered By: Taylor Fast on 12-18-2024 Lymphocytes Auto (Unsp spec) [#/Vol] 1.65 10*3/uL 0.83-4.51 [facility] Absolute neutrophil countOrd ered By: Taylor Fast on 12-18-2024 Neutrophils (Bld) [#/Vol] 1.4 10*3/uL Low 2.0-7.7 [facility] Anion gap in Serum or Plasma Ordered By: Taylor Fast on 12-18-2024 Anion gap [Moles/Vol] 10 mmol/L 5-15 [facility] Automated lymphocyte count a s percentage of total leukocytesOrdered By: Taylor Fast on 12-18-2024 Lymphocytes/100 WBC Auto (Unsp spec) 42.4 % High 19-41 [facility] BUN/creatinine ratioOrdered By: Taylor Fast on 12-18-2024 Urea nitrogen/Creatinine [Mass ratio] 39.5 mg/mg High 10-20 [facility] Basophil percentageOrdered B y: Taylor Fast on 12-18-2024 Basophils/100 WBC (Bld) 0.5 % 0-1 [facility] Bilirubin, totalOrdered By: Taylor Fast on 12-18-2024 Bilirubin [Mass/Vol] 0.44 mg/dL 0.00-1.30 [facility] CBC W/Diff, Automatedon 12-05 Absolute Lymph 1.65 X10 3/uL Normal 0.83-4.51 [facility] Comment on above: Performed By: #### L 506.1001, L500.4050, L501.9520, L501.9985, L100.0100 #### [facility] [address] [place], [address] Absolute Neut 1.4 X10 3/uL Low 2.0-7.7 [facility] Comment on above: Performed By: #### L 506.1001, L500.4050, L501.9520, L501.9985, L100.0100 #### [facility] [address] [place], [address] Basophils/100 WBC (Bld) 0.5 % Normal 0-1 [facility] Comment on above: Performed By: #### L 506.1001, L500.4050, L501.9520, L501.9985, L100.0100 #### [facility] [address] [place], [address] Eosinophils/100 WBC (Bld) 4.1 % Normal 0-5 [facility] Comment on above: Performed By: #### L 506.1001, L500.4050, L501.9520, L501.9985, L100.0100 #### [facility] [address] [place], [address] Erythrocyte distribution width (RBC) [Ratio] 12.3 % Normal 11.6-14.6 [facility] Comment on above: Performed By: #### L 506.1001, L500.4050, L501.9520, L501.9985, L100.0100 #### [facility] [address] [place], [address] Hematocrit (Bld) [Volume fraction] 36.7 % Low 40-54 [facility] Comment on above: Performed By: #### L 506.1001, L500.4050, L501.9520, L501.9985, L100.0100 #### [facility] [address] [place], [address] Hemoglobin (Bld) [Mass/Vol] 12.4 g/dL Low 13.0-16.5 [facility] Comment on above: Performed By: #### L 506.1001, L500.4050, L501.9520, L501.9985, L100.0100 #### [facility] [address] [place], [address] IG% 0.300 Normal 0.0-0.9 [facility] Comment on above: Result Comment: IG% - Immature Granulocytes (promyelocytes, myelocytes and metamyelocytes) > 1% indicates that a LEFT SHIFT is Present. Performed By: #### L 506.1001, L500.4050, L501.9520, L501.9985, L100.0100 #### [facility] [address] [place], [address] Lymphocytes/100 WBC (Bld) 42.4 % High 19-41 [facility] Comment on above: Performed By: #### L 506.1001, L500.4050, L501.9520, L501.9985, L100.0100 #### [facility] [address] [place], [address] MCH (RBC) [Entitic mass] 31.8 pg Normal 27.0-32.0 [facility] Comment on above: Performed By: #### L 506.1001, L500.4050, L501.9520, L501.9985, L100.0100 #### [facility] [address] [place], [address] MCHC (RBC) [Mass/Vol] 33.8 g/dL Normal 32-36 [facility] Comment on above: Performed By: #### L 506.1001, L500.4050, L501.9520, L501.9985, L100.0100 #### [facility] [address] [place], [address] MCV (RBC) [Entitic vol] 94.1 fL High 80-94 [facility] Comment on above: Performed By: #### L 506.1001, L500.4050, L501.9520, L501.9985, L100.0100 #### [facility] [address] [place], [address] Monocytes/100 WBC (Bld) 16.5 % High 0-10 [facility] Comment on above: Performed By: #### L 506.1001, L500.4050, L501.9520, L501.9985, L100.0100 #### [facility] [address] [place], [address] Neutrophils/100 WBC (Bld) 36.2 % Low 47-70 [facility] Comment on above: Performed By: #### L 506.1001, L500.4050, L501.9520, L501.9985, L100.0100 #### [facility] [address] [place], [address] Nucleated RBC (Bld) [#/Vol] 0 10*3/uL Normal 0-5 [facility] Comment on above: Performed By: #### L 506.1001, L500.4050, L501.9520, L501.9985, L100.0100 #### [facility] [address] [place], [address] Platelet mean volume (Bld) [Entitic vol] 10.1 fL Normal 6.2-12.0 [facility] Comment on above: Performed By: #### L 506.1001, L500.4050, L501.9520, L501.9985, L100.0100 #### [facility] [address] [place], [address] Platelets (Bld) [#/Vol] 196 10*3/uL Normal 150-450 [facility] Comment on above: Performed By: #### L 506.1001, L500.4050, L501.9520, L501.9985, L100.0100 #### [facility] [address] [place], [address] RBC (Bld) [#/Vol] 3.90 10*6/uL Low 4.6-6.2 [facility] Comment on above: Performed By: #### L 506.1001, L500.4050, L501.9520, L501.9985, L100.0100 #### [facility] [address] [place], [address] RDW SD 42.7 fl Normal 35.1-43.9 [facility] Comment on above: Performed By: #### L 506.1001, L500.4050, L501.9520, L501.9985, L100.0100 #### [facility] [address] [place], [address] WBC (Bld) [#/Vol] 3.9 10*3/uL Low 4.4-11.0 [facility] Comment on above: Performed By: #### L 506.1001, L500.4050, L501.9520, L501.9985, L100.0100 #### [facility] [address] [place], [address] Carbon dioxide, total [Moles /volume] in Central venous bloodOrdered By: Taylor Fast on 12-18-2024 CO2 [Moles/Vol] 25.8 mmol/L 21.0-32.0 [facility] Chloride assayOrdered By: De bra Fast on 12-18-2024 Chloride [Moles/Vol] 100 mmol/L 98-108 [facility] Comprehensive Metabolic Prof ilon 12-18-2024 Albumin [Mass/Vol] 4.0 g/dL Normal 3.4-4.8 [facility] Comment on above: Performed By: #### L 506.1001, L500.4050, L501.9520, L501.9985, L100.0100 #### [facility] [address] [place], [address] Albumin/Globulin [Mass ratio] 1.5 {ratio} Normal 0.9-2.4 [facility] Comment on above: Performed By: #### L 506.1001, L500.4050, L501.9520, L501.9985, L100.0100 #### [facility] [address] [place], [address] ALK PHOS 70 U/L Normal 40-129 [facility] Comment on above: Performed By: #### L 506.1001, L500.4050, L501.9520, L501.9985, L100.0100 #### [facility] [address] [place], [address] ALT [Catalytic activity/Vol] 14 U/L Normal <=46 [facility] Comment on above: Performed By: #### L 506.1001, L500.4050, L501.9520, L501.9985, L100.0100 #### [facility] [address] [place], [address] AST [Catalytic activity/Vol] 22 U/L Normal <=37 [facility] Comment on above: Performed By: #### L 506.1001, L500.4050, L501.9520, L501.9985, L100.0100 #### [facility] [address] [place], [address] Bilirubin [Mass/Vol] 0.44 mg/dL Normal 0.00-1.30 [facility] Comment on above: Performed By: #### L 506.1001, L500.4050, L501.9520, L501.9985, L100.0100 #### [facility] [address] [place], [address] BUN/CRE 39.5 RATIO High 10-20 [facility] Comment on above: Performed By: #### L 506.1001, L500.4050, L501.9520, L501.9985, L100.0100 #### [facility] [address] [place], [address] Calcium [Mass/Vol] 9.4 mg/dL Normal 7.6-11.0 [facility] Comment on above: Performed By: #### L 506.1001, L500.4050, L501.9520, L501.9985, L100.0100 #### [facility] [address] [place], [address] Chloride [Moles/Vol] 100 mmol/L Normal 98-108 [facility] Comment on above: Performed By: #### L 506.1001, L500.4050, L501.9520, L501.9985, L100.0100 #### [facility] [address] [place], [address] CO2 [Moles/Vol] 25.8 mmol/L Normal 21.0-32.0 [facility] Comment on above: Performed By: #### L 506.1001, L500.4050, L501.9520, L501.9985, L100.0100 #### [facility] [address] [place], [address] Creatinine [Mass/Vol] 0.38 mg/dL Low 0.70-1.20 [facility] Comment on above: Performed By: #### L 506.1001, L500.4050, L501.9520, L501.9985, L100.0100 #### [facility] [address] [place], [address] GAP 10 Normal 5-15 [facility] Comment on above: Performed By: #### L 506.1001, L500.4050, L501.9520, L501.9985, L100.0100 #### [facility] [address] [place], [address] GFR/1.73 sq M.predicted among non-blacks MDRD (S/P/Bld) [Vol rate/Area] 108 mL/min/{1.73_m2} Normal >60 [facility] Comment on above: Result Comment: mL/m in/1.73m2 CKD-EPI Creatinine Equation (2020) Performed By: #### L 506.1001, L500.4050, L501.9520, L501.9985, L100.0100 #### [facility] [address] [place], [address] Globulin (S) [Mass/Vol] 2.6 g/dL Normal 2.2-4.2 [facility] Comment on above: Performed By: #### L 506.1001, L500.4050, L501.9520, L501.9985, L100.0100 #### [facility] [address] [place], [address] Glucose [Mass/Vol] 91 mg/dL Normal 70-99 [facility] Comment on above: Performed By: #### L 506.1001, L500.4050, L501.9520, L501.9985, L100.0100 #### [facility] [address] [place], [address] Potassium [Moles/Vol] 4.3 mmol/L Normal 3.3-5.1 [facility] Comment on above: Performed By: #### L 506.1001, L500.4050, L501.9520, L501.9985, L100.0100 #### [facility] [address] [place], [address] Sodium [Moles/Vol] 135 mmol/L Normal 133-145 [facility] Comment on above: Performed By: #### L 506.1001, L500.4050, L501.9520, L501.9985, L100.0100 #### [facility] [address] [place], [address] T PROT 6.5 g/dL Normal 5.9-8.4 [facility] Comment on above: Performed By: #### L 506.1001, L500.4050, L501.9520, L501.9985, L100.0100 #### [facility] [address] [place], [address] Urea nitrogen [Mass/Vol] 15 mg/dL Normal 4-19 [facility] Comment on above: Performed By: #### L 506.1001, L500.4050, L501.9520, L501.9985, L100.0100 #### [facility] [address] [place], [address] Eosinophil percentageOrdered By: Taylor Fast on 12-18-2024 Eosinophils/100 WBC (Bld) 4.1 % 0-5 [facility] Erythrocyte distribution wid th ratioOrdered By: Taylor Fast on 12-18-2024 Erythrocyte distribution width (RBC) [Ratio] 12.3 % 11.6-14.6 [facility] Erythrocyte distribution wid th standard deviationOrdered By: Taylor Fast on 12-18-2024 Erythrocyte distribution width (RBC) [Ratio] 42.7 fl 35.1-43.9 [facility] Glomerular filtration rate ( GFR) estimation/1.73 sq m using serum, plasma, or whole bOrdered By: on 12-18-2024 GFR/1.73 sq M.predicted among non-blacks MDRD (S/P/Bld) [Vol rate/Area] 108 mL/min/{1.73_m2} >60 [facility] Comment on above: mL/min/1.73m2 CKD-EP I Creatinine Equation (2020) Hematocrit Auto (Bld) [Volum e fraction]Ordered By: Taylor on 12-18-2024 Hematocrit (Bld) [Volume fraction] 36.7 % Low 40-54 [facility] Hemoglobin A1con 12-18-2024 HbA1c (Bld) [Mass fraction] 5.2 % Normal <=5.6 [facility] Comment on above: Result Comment: Norm al < 5.7 % Prediabetic 5.7 - 6.4 % Diabetic >or= 6.5 % Please note range changes. Performed By: #### L 506.1001, L500.4050, L501.9520, L501.9985, L100.0100 #### [facility] [address] [place], [address] Hemoglobin A1c percentageOrd ered By: on 12-18-2024 HbA1c (Bld) [Mass fraction] 5.2 % <5.7 [facility] Comment on above: Normal < 5.7 % Predi abetic 5.7 - 6.4 % Diabetic >or= 6.5 % Please note range changes. Hemoglobin measurementOrdere d By: on 12-18-2024 Hemoglobin (Bld) [Mass/Vol] 12.4 g/dL Low 13.0-16.5 [facility] Immature granulocytes/100 WB C Auto (Bld)Ordered By: Taylor on 12-18-2024 Immature granulocytes/100 WBC (Bld) 0.300 % 0.0-0.9 [facility] Comment on above: IG% - Immature Granu locytes (promyelocytes, myelocytes and metamyelocytes) > 1% indicates that a LEFT SHIFT is Present. Laboratory - Chemistry and C hemistry - challengeOrdered By: on 12-18-2024 AST [Catalytic activity/Vol] 22 U/L <38 [facility] MCV (mean corpuscular volume ) determinationOrdered By: on 12-18-2024 MCV (RBC) [Entitic vol] 94.1 fL High 80-94 [facility] Mean corpuscular hemoglobin (MCH) determinationOrdered By: on 12-18-2024 MCH (RBC) [Entitic mass] 31.8 pg 27.0-32.0 [facility] Mean corpuscular hemoglobin concentration (MCHC) determinationOrdered By: 12-18-2024 MCHC (RBC) [Mass/Vol] 33.8 g/dL 32-36 [facility] Mean platelet volume determi nationOrdered By: on 12-18-2024 Platelet mean volume (Bld) [Entitic vol] 10.1 fL 6.2-12.0 [facility] Monocyte percentageOrdered B y: on 12-18-2024 Monocytes/100 WBC (Bld) 16.5 % High 0-10 [facility] Neutrophil percentageOrdered By: on 12-18-2024 Neutrophils/100 WBC (Bld) 36.2 % Low 47-70 [facility] Nucleated red blood cell per centageOrdered By: on 12-18-2024 Nucleated RBC/100 WBC (Bld) [Ratio] 0 % 0-5 [facility] Platelet countOrdered By: De armando on 12-18-2024 Platelets (Bld) [#/Vol] 196 10*3/uL 150-450 [facility] Potassium measurement (mass/ volume)Ordered By: on 12-18-2024 Potassium (Unsp spec) [Mass/Vol] 4.3 mmol/L 3.3-5.1 [facility] RBC Auto (Bld) [#/Vol]Ordere d By: on 12-18-2024 RBC (Bld) [#/Vol] 3.90 10*6/uL Low 4.6-6.2 [facility] Serum creatinine measurement (mass/volume)Ordered By: Taylor on 12-18-2024 Creatinine [Mass/Vol] 0.38 mg/dL Low 0.70-1.20 [facility] Serum globulin measurementOr dered By: Taylor Fast on 12-18-2024 Globulin (S) [Mass/Vol] 2.6 g/dL 2.2-4.2 [facility] Serum glucose measurement (m ass/volume)Ordered By: Taylor on 12-18-2024 Glucose [Mass/Vol] 91 mg/dL 70-99 [facility] Serum or plasma alanine kumar otransferase (ALT) measurementOrdered By: on 12-18-2024 ALT [Catalytic activity/Vol] 14 U/L <47 [facility] Serum or plasma albumin marialuisa urement (mass/volume)Ordered By: Taylor on 12-18-2024 Albumin [Mass/Vol] 4.0 g/dL 3.4-4.8 [facility] Serum or plasma albumin/glob ulin mass ratioOrdered By: Taylor on 12-18-2024 Albumin/Globulin [Mass ratio] 1.5 {ratio} 0.9-2.4 [facility] Serum or plasma alkaline gilberto sphatase measurementOrdered By: on 12-18-2024 ALP [Catalytic activity/Vol] 70 U/L 40-129 [facility] Serum or plasma calcium marialuisa urement (mass/volume)Ordered By: Taylor on 12-18-2024 Calcium [Mass/Vol] 9.4 mg/dL 7.6-11.0 [facility] Serum or plasma urea nitroge n measurement (mass/volume)Ordered By: Taylor on 12-18-2024 Urea nitrogen [Mass/Vol] 15 mg/dL 4-19 [facility] Sodium levelOrdered By: a Fast on 12-18-2024 Sodium [Moles/Vol] 135 mmol/L 133-145 [facility] TSH DL <= 0.005 mIU/L QnOrde red By: Taylor Fast on 12-18-2024 TSH Qn 3.470 uIU/mL 0.300-4.20 0 [facility] Thyroid Stim Hormone (TSH)on 12-18-2024 TSH 3.470 uIU/mL Normal 0.300-4.20 0 [facility] Comment on above: Performed By: #### L 506.1001, L500.4050, L501.9520, L501.9985, L100.0100 #### [facility] [address] [place], [place], [address] Total proteinOrdered By: Lyla ra Fast on 12-18-2024 Protein [Mass/Vol] 6.5 g/dL 5.9-8.4 [facility] Vitamin D,25 Hydroxyon 12-18 Vitamin D 25-OH 51.4 ng/mL Normal 30-100 [facility] Comment on above: Result Comment: Christen min D Status Deficiency: <20 ng/mL (50nmol/L) Insufficiency: 20-30 ng/mL (50-75 nmol/L) Sufficiency: 30-100 ng/mL (75-250 nmol/L) Toxicity: >100 ng/mL (>250 nmol/L) Performed By: #### L 506.1001, L500.4050, L501.9520, L501.9985, L100.0100 #### [facility] [address] [place], [place], [address] White blood cell (WBC) count Ordered By: on 12-18-2024 WBC (Bld) [#/Vol] 3.9 10*3/uL Low 4.4-11.0 [facility] Absolute lymphocyte countOrd ered By: on 09-16-2024 Lymphocytes Auto (Unsp spec) [#/Vol] 1.50 10*3/uL 0.83-4.51 [facility] Absolute neutrophil countOrd ered By: on 09-16-2024 Neutrophils (Bld) [#/Vol] 2.9 10*3/uL 2.0-7.7 [facility] Anion gap in Serum or Plasma Ordered By: on 09-16-2024 Anion gap [Moles/Vol] 8 mmol/L 5-15 [facility] Automated lymphocyte count a s percentage of total leukocytesOrdered By: Taylor Fast on 09-16-2024 Lymphocytes/100 WBC Auto (Unsp spec) 28.6 % 19-41 [facility] BUN/creatinine ratioOrdered By: Taylor Fast on 09-16-2024 Urea nitrogen/Creatinine [Mass ratio] 42.9 mg/mg High 10-20 [facility] Basophil percentageOrdered B y: Taylor Fast on 09-16-2024 Basophils/100 WBC (Bld) 0.4 % 0-1 [facility] Bilirubin, totalOrdered By: Taylor Fast on 09-16-2024 Bilirubin [Mass/Vol] 0.45 mg/dL 0.00-1.30 [facility] CBC W/Diff, Automatedon 09-04 Absolute Lymph 1.50 X10 3/uL Normal 0.83-4.51 [facility] Comment on above: Performed By: #### L 100.0100, L500.2500 #### [facility] [address] [place], [address] Absolute Neut 2.9 X10 3/uL Normal 2.0-7.7 [facility] Comment on above: Performed By: #### L 100.0100, L500.2500 #### [facility] [address] [facility] [place], [address] Basophils/100 WBC (Bld) 0.4 % Normal 0-1 [facility] Comment on above: Performed By: #### L 100.0100, L500.2500 #### [facility] [address] [place], [address] Eosinophils/100 WBC (Bld) 3.6 % Normal 0-5 [facility] Comment on above: Performed By: #### L 100.0100, L500.2500 #### [facility] [address] [place], [address] Erythrocyte distribution width (RBC) [Ratio] 12.8 % Normal 11.6-14.6 [facility] Comment on above: Performed By: #### L 100.0100, L500.2500 #### [facility] [address] [place], [address] Hematocrit (Bld) [Volume fraction] 37.0 % Low 40-54 [facility] Comment on above: Performed By: #### L 100.0100, L500.2500 #### [facility] [address] [place], [address] Hemoglobin (Bld) [Mass/Vol] 12.6 g/dL Low 13.0-16.5 [facility] Comment on above: Performed By: #### L 100.0100, L500.2500 #### [facility] [address] [place], [address] IG% 0.200 Normal 0.0-0.9 [facility] Comment on above: Result Comment: IG% - Immature Granulocytes (promyelocytes, myelocytes and metamyelocytes) > 1% indicates that a LEFT SHIFT is Present. Performed By: #### L 100.0100, L500.2500 #### [facility] [address] [place], [address] Lymphocytes/100 WBC (Bld) 28.6 % Normal 19-41 [facility] Comment on above: Performed By: #### L 100.0100, L500.2500 #### [facility] [address] [place], [address] MCH (RBC) [Entitic mass] 32.2 pg High 27.0-32.0 [facility] Comment on above: Performed By: #### L 100.0100, L500.2500 #### [facility] [address] [place], [address] MCHC (RBC) [Mass/Vol] 34.1 g/dL Normal 32-36 [facility] Comment on above: Performed By: #### L 100.0100, L500.2500 #### [facility] [address] [place], [address] MCV (RBC) [Entitic vol] 94.6 fL High 80-94 [facility] Comment on above: Performed By: #### L 100.0100, L500.2500 #### [facility] [address] [place], [address] Monocytes/100 WBC (Bld) 11.6 % High 0-10 [facility] Comment on above: Performed By: #### L 100.0100, L500.2500 #### [facility] [address] [place], [address] Neutrophils/100 WBC (Bld) 55.6 % Normal 47-70 [facility] Comment on above: Performed By: #### L 100.0100, L500.2500 #### [facility] [address] [place], [address] Nucleated RBC (Bld) [#/Vol] 0 10*3/uL Normal 0-5 [facility] Comment on above: Performed By: #### L 100.0100, L500.2500 #### [facility] [address] [place], [address] Platelet mean volume (Bld) [Entitic vol] 10.3 fL Normal 6.2-12.0 [facility] Comment on above: Performed By: #### L 100.0100, L500.2500 #### [facility] [address] [place], [address] Platelets (Bld) [#/Vol] 181 10*3/uL Normal 150-450 [facility] Comment on above: Performed By: #### L 100.0100, L500.2500 #### [facility] [address] [place], [address] RBC (Bld) [#/Vol] 3.91 10*6/uL Low 4.6-6.2 [facility] Comment on above: Performed By: #### L 100.0100, L500.2500 #### [facility] [address] [place], [address] RDW SD 44.1 fl High 35.1-43.9 [facility] Comment on above: Performed By: #### L 100.0100, L500.2500 #### [facility] [address] [place], [address] WBC (Bld) [#/Vol] 5.2 10*3/uL Normal 4.4-11.0 [facility] Comment on above: Performed By: #### L 100.0100, L500.2500 #### [facility] [address] [place], [address] Carbon dioxide, total [Moles /volume] in Central venous bloodOrdered By: Taylor Fast on 09-16-2024 CO2 [Moles/Vol] 27.9 mmol/L 21.0-32.0 [facility] Chloride assayOrdered By: De bra Fast on 09-16-2024 Chloride [Moles/Vol] 98 mmol/L 98-108 [facility] Comprehensive Metabolic Prof ilon 09-16-2024 Albumin [Mass/Vol] 4.0 g/dL Normal 3.4-4.8 [facility] Comment on above: Performed By: #### L 100.0100, L500.2500 #### [facility] [address] [place], [address] Albumin/Globulin [Mass ratio] 1.5 {ratio} Normal 0.9-2.4 [facility] Comment on above: Performed By: #### L 100.0100, L500.2500 #### [facility] [address] [place], [address] ALK PHOS 62 U/L Normal 40-129 [facility] Comment on above: Performed By: #### L 100.0100, L500.2500 #### [facility] [address] [place], [address] ALT [Catalytic activity/Vol] 12 U/L Normal <=46 [facility] Comment on above: Performed By: #### L 100.0100, L500.2500 #### [facility] [address] [place], [address] AST [Catalytic activity/Vol] 19 U/L Normal <=37 [facility] Comment on above: Performed By: #### L 100.0100, L500.2500 #### [facility] [address] [place], [address] Bilirubin [Mass/Vol] 0.45 mg/dL Normal 0.00-1.30 [facility] Comment on above: Performed By: #### L 100.0100, L500.2500 #### [facility] [address] [place], [address] BUN/CRE 42.9 RATIO High 10-20 [facility] Comment on above: Performed By: #### L 100.0100, L500.2500 #### [facility] [address] [place], [address] Calcium [Mass/Vol] 9.6 mg/dL Normal 7.6-11.0 [facility] Comment on above: Performed By: #### L 100.0100, L500.2500 #### [facility] [address] [place], [address] Chloride [Moles/Vol] 98 mmol/L Normal 98-108 [facility] Comment on above: Performed By: #### L 100.0100, L500.2500 #### [facility] [address] [place], [address] CO2 [Moles/Vol] 27.9 mmol/L Normal 21.0-32.0 [facility] Comment on above: Performed By: #### L 100.0100, L500.2500 #### [facility] [address] [place], [address] Creatinine [Mass/Vol] 0.37 mg/dL Low 0.70-1.20 [facility] Comment on above: Performed By: #### L 100.0100, L500.2500 #### [facility] [address] [place], [address] GAP 8 Normal 5-15 [facility] Comment on above: Performed By: #### L 100.0100, L500.2500 #### [facility] [address] [place], [address] GFR/1.73 sq M.predicted among non-blacks MDRD (S/P/Bld) [Vol rate/Area] 109 mL/min/{1.73_m2} Normal >60 [facility] Comment on above: Result Comment: mL/m in/1.73m2 CKD-EPI Creatinine Equation (2020) Performed By: #### L 100.0100, L500.2500 #### [facility] [address] [place], [address] Globulin (S) [Mass/Vol] 2.7 g/dL Normal 2.2-4.2 [facility] Comment on above: Performed By: #### L 100.0100, L500.2500 #### [facility] [address] [place], [address] Glucose [Mass/Vol] 91 mg/dL Normal 70-99 [facility] Comment on above: Performed By: #### L 100.0100, L500.2500 #### [facility] [address] [place], [address] Potassium [Moles/Vol] 4.5 mmol/L Normal 3.3-5.1 [facility] Comment on above: Performed By: #### L 100.0100, L500.2500 #### [facility] [address] [place], [address] Sodium [Moles/Vol] 134 mmol/L Normal 133-145 [facility] Comment on above: Performed By: #### L 100.0100, L500.2500 #### [facility] [address] [place], [address] T PROT 6.7 g/dL Normal 5.9-8.4 [facility] Comment on above: Performed By: #### L 100.0100, L500.2500 #### [facility] [address] [place], [address] Urea nitrogen [Mass/Vol] 16 mg/dL Normal 4-19 [facility] Comment on above: Performed By: #### L 100.0100, L500.2500 #### [facility] [address] [place], [address] Eosinophil percentageOrdered By: Taylor Fast on 09-16-2024 Eosinophils/100 WBC (Bld) 3.6 % 0-5 [facility] Erythrocyte distribution wid th ratioOrdered By: Taylor Fast on 09-16-2024 Erythrocyte distribution width (RBC) [Ratio] 12.8 % 11.6-14.6 [facility] Erythrocyte distribution wid th standard deviationOrdered By: Taylor Fast on 09-16-2024 Erythrocyte distribution width (RBC) [Ratio] 44.1 fl High 35.1-43.9 [facility] Glomerular filtration rate ( GFR) estimation/1.73 sq m using serum, plasma, or whole bOrdered By: Taylor Fast on 09-16-2024 GFR/1.73 sq M.predicted among non-blacks MDRD (S/P/Bld) [Vol rate/Area] 109 mL/min/{1.73_m2} >60 [facility] Comment on above: mL/min/1.73m2 CKD-EP I Creatinine Equation (2020) Hematocrit Auto (Bld) [Volum e fraction]Ordered By: Taylor Fast on 09-16-2024 Hematocrit (Bld) [Volume fraction] 37.0 % Low 40-54 [facility] Hemoglobin A1con 09-16-2024 HbA1c (Bld) [Mass fraction] 5.1 % Normal <=5.6 [facility] Comment on above: Result Comment: Norm al < 5.7 % Prediabetic 5.7 - 6.4 % Diabetic >or= 6.5 % Please note range changes. Performed By: #### L 506.1001, L500.4050, L501.9520, L501.9985, L100.0100 #### [facility] [address] [place], [address] Hemoglobin A1c percentageOrd ered By: Taylor on 09-16-2024 HbA1c (Bld) [Mass fraction] 5.1 % <5.7 [facility] Comment on above: Normal < 5.7 % Predi abetic 5.7 - 6.4 % Diabetic >or= 6.5 % Please note range changes. Hemoglobin measurementOrdere d By: Taylor Fast on 09-16-2024 Hemoglobin (Bld) [Mass/Vol] 12.6 g/dL Low 13.0-16.5 [facility] Immature granulocytes/100 WB C Auto (Bld)Ordered By: Taylor Fast on 09-16-2024 Immature granulocytes/100 WBC (Bld) 0.200 % 0.0-0.9 [facility] Comment on above: IG% - Immature Granu locytes (promyelocytes, myelocytes and metamyelocytes) > 1% indicates that a LEFT SHIFT is Present. Laboratory - Chemistry and C hemistry - challengeOrdered By: Taylor Fast on 09-16-2024 AST [Catalytic activity/Vol] 19 U/L <38 [facility] MCV (mean corpuscular volume ) determinationOrdered By: Taylor Fast on 09-16-2024 MCV (RBC) [Entitic vol] 94.6 fL High 80-94 [facility] Mean corpuscular hemoglobin (MCH) determinationOrdered By: Taylor Fast on 09-16-2024 MCH (RBC) [Entitic mass] 32.2 pg High 27.0-32.0 [facility] Mean corpuscular hemoglobin concentration (MCHC) determinationOrdered By: Taylor Fast on 09-16-2024 MCHC (RBC) [Mass/Vol] 34.1 g/dL 32-36 [facility] Mean platelet volume determi nationOrdered By: Taylor Fast on 09-16-2024 Platelet mean volume (Bld) [Entitic vol] 10.3 fL 6.2-12.0 [facility] Monocyte percentageOrdered B y: Taylor on 09-16-2024 Monocytes/100 WBC (Bld) 11.6 % High 0-10 [facility] Neutrophil percentageOrdered By: Taylor Fast on 09-16-2024 Neutrophils/100 WBC (Bld) 55.6 % 47-70 [facility] Nucleated red blood cell per centageOrdered By: on 09-16-2024 Nucleated RBC/100 WBC (Bld) [Ratio] 0 % 0-5 [facility] Platelet countOrdered By: armando on 09-16-2024 Platelets (Bld) [#/Vol] 181 10*3/uL 150-450 [facility] Potassium measurement (mass/ volume)Ordered By: on 09-16-2024 Potassium (Unsp spec) [Mass/Vol] 4.5 mmol/L 3.3-5.1 [facility] RBC Auto (Bld) [#/Vol]Ordere d By: on 09-16-2024 RBC (Bld) [#/Vol] 3.91 10*6/uL Low 4.6-6.2 [facility] Serum creatinine measurement (mass/volume)Ordered By: on 09-16-2024 Creatinine [Mass/Vol] 0.37 mg/dL Low 0.70-1.20 [facility] Serum globulin measurementOr dered By: 09-16-2024 Globulin (S) [Mass/Vol] 2.7 g/dL 2.2-4.2 [facility] Serum glucose measurement (m ass/volume)Ordered By: 09-16-2024 Glucose [Mass/Vol] 91 mg/dL 70-99 [facility] Serum or plasma alanine kumar otransferase (ALT) measurementOrdered By: 09-16-2024 ALT [Catalytic activity/Vol] 12 U/L <47 [facility] Serum or plasma albumin marialuisa urement (mass/volume)Ordered By: Taylor Fast on 09-16-2024 Albumin [Mass/Vol] 4.0 g/dL 3.4-4.8 [facility] Serum or plasma albumin/glob ulin mass ratioOrdered By: Taylor on 09-16-2024 Albumin/Globulin [Mass ratio] 1.5 {ratio} 0.9-2.4 [facility] Serum or plasma alkaline gilberto sphatase measurementOrdered By: Taylor Fast on 09-16-2024 ALP [Catalytic activity/Vol] 62 U/L 40-129 [facility] Serum or plasma calcium marialuisa urement (mass/volume)Ordered By: Taylor Fast on 09-16-2024 Calcium [Mass/Vol] 9.6 mg/dL 7.6-11.0 [facility] Serum or plasma urea nitroge n measurement (mass/volume)Ordered By: Taylor Fast on 09-16-2024 Urea nitrogen [Mass/Vol] 16 mg/dL 4-19 [facility] Sodium levelOrdered By: a Fast on 09-16-2024 Sodium [Moles/Vol] 134 mmol/L 133-145 [facility] TSH DL <= 0.005 mIU/L QnOrde red By: Taylor Fast on 09-16-2024 TSH Qn 4.040 uIU/mL 0.300-4.20 0 [facility] Thyroid Stim Hormone (TSH)on 09-16-2024 TSH 4.040 uIU/mL Normal 0.300-4.20 0 [facility] Comment on above: Performed By: #### L 506.1001, L500.4050, L501.9520, L501.9985, L100.0100 #### [facility] [address] [place], [address] Total proteinOrdered By: Lyla ra Fast on 09-16-2024 Protein [Mass/Vol] 6.7 g/dL 5.9-8.4 [facility] Vitamin D,25 Hydroxyon 09-16 Vitamin D 25-OH 52.3 ng/mL Normal 30-100 [facility] Comment on above: Result Comment: Christen min D Status Deficiency: <20 ng/mL (50nmol/L) Insufficiency: 20-30 ng/mL (50-75 nmol/L) Sufficiency: 30-100 ng/mL (75-250 nmol/L) Toxicity: >100 ng/mL (>250 nmol/L) Performed By: #### L 506.1001, L500.4050, L501.9520, L501.9985, L100.0100 #### [facility] [address] [place], [address] White blood cell (WBC) count Ordered By: Taylor on 09-16-2024 WBC (Bld) [#/Vol] 5.2 10*3/uL 4.4-11.0 [facility] Absolute lymphocyte countOrd ered By: Taylor Fast on 06-19-2024 Lymphocytes Auto (Unsp spec) [#/Vol] 1.41 10*3/uL 0.83-4.51 [facility] Absolute neutrophil countOrd ered By: Taylor Fast on 06-19-2024 Neutrophils (Bld) [#/Vol] 1.6 10*3/uL Low 2.0-7.7 [facility] Albumin to globulin ratioOrd ered By: Taylor Fast on 06-19-2024 Albumin/Globulin [Mass ratio] 1.1 {ratio} 0.9-2.4 [facility] Automated lymphocyte count a s percentage of total leukocytesOrdered By: Taylor Fast on 06-19-2024 Lymphocytes/100 WBC Auto (Unsp spec) 36.2 % 19-41 [facility] Basophil percentageOrdered B y: Taylor Fast on 06-19-2024 Basophils/100 WBC (Bld) 0.5 % 0-1 [facility] Bilirubin, totalOrdered By: Taylor Fast on 06-19-2024 Bilirubin [Mass/Vol] 0.70 mg/dL 0.20-1.00 [facility] Comment on above: For patients on eltr ombopag therapy, use of Dimension [place] TBIL is not recommended. Blood urea nitrogen (BUN)/cr eatinine ratioOrdered By: Taylor Zuniga on 06-19-2024 Urea nitrogen/Creatinine [Mass ratio] 41.3 mg/mg High 10-20 [facility] CBC W/Diff, Automatedon 06-07 Absolute Lymph 1.41 X10 3/uL Normal 0.83-4.51 [facility] Comment on above: Performed By: #### L 100.0100, L500.2500 #### [facility] [address] [place], [address] Absolute Neut 1.6 X10 3/uL Low 2.0-7.7 [facility] Comment on above: Performed By: #### L 100.0100, L500.2500 #### [facility] [address] [place], [address] Basophils/100 WBC (Bld) 0.5 % Normal 0-1 [facility] Comment on above: Performed By: #### L 100.0100, L500.2500 #### [facility] [address] [place], [address] Eosinophils/100 WBC (Bld) 5.9 % High 0-5 [facility] Comment on above: Performed By: #### L 100.0100, L500.2500 #### [facility] [address] [place], [address] Erythrocyte distribution width (RBC) [Ratio] 13.0 % Normal 11.6-14.6 [facility] Comment on above: Performed By: #### L 100.0100, L500.2500 #### [facility] [address] [place], [address] Hematocrit (Bld) [Volume fraction] 35.6 % Low 40-54 [facility] Comment on above: Performed By: #### L 100.0100, L500.2500 #### [facility] [address] [place], [address] Hemoglobin (Bld) [Mass/Vol] 12.1 g/dL Low 13.0-16.5 [facility] Comment on above: Performed By: #### L 100.0100, L500.2500 #### [facility] [address] [place], [address] IG% 0.300 Normal 0.0-0.9 [facility] Comment on above: Result Comment: IG% - Immature Granulocytes (promyelocytes, myelocytes and metamyelocytes) > 1% indicates that a LEFT SHIFT is Present. Performed By: #### L 100.0100, L500.2500 #### [facility] [address] [place], [address] Lymphocytes/100 WBC (Bld) 36.2 % Normal 19-41 [facility] Comment on above: Performed By: #### L 100.0100, L500.2500 #### [facility] [address] [place], [address] MCH (RBC) [Entitic mass] 31.2 pg Normal 27.0-32.0 [facility] Comment on above: Performed By: #### L 100.0100, L500.2500 #### [facility] [address] [place], [address] MCHC (RBC) [Mass/Vol] 34.0 g/dL Normal 32-36 [facility] Comment on above: Performed By: #### L 100.0100, L500.2500 #### [facility] [address] [place], [address] MCV (RBC) [Entitic vol] 91.8 fL Normal 80-94 [facility] Comment on above: Performed By: #### L 100.0100, L500.2500 #### [facility] [address] [place], [address] Monocytes/100 WBC (Bld) 15.6 % High 0-10 [facility] Comment on above: Performed By: #### L 100.0100, L500.2500 #### [facility] [address] [place], [address] Neutrophils/100 WBC (Bld) 41.5 % Low 47-70 [facility] Comment on above: Performed By: #### L 100.0100, L500.2500 #### [facility] [address] [place], [address] Nucleated RBC (Bld) [#/Vol] 0 10*3/uL Normal 0-5 [facility] Comment on above: Performed By: #### L 100.0100, L500.2500 #### [facility] [address] [place], [address] Platelet mean volume (Bld) [Entitic vol] 10.3 fL Normal 6.2-12.0 [facility] Comment on above: Performed By: #### L 100.0100, L500.2500 #### [facility] [address] [place], [address] Platelets (Bld) [#/Vol] 176 10*3/uL Normal 150-450 [facility] Comment on above: Performed By: #### L 100.0100, L500.2500 #### [facility] [address] [place], [address] RBC (Bld) [#/Vol] 3.88 10*6/uL Low 4.6-6.2 [facility] Comment on above: Performed By: #### L 100.0100, L500.2500 #### [facility] [address] [place], [address] RDW SD 43.3 fl Normal 35.1-43.9 [facility] Comment on above: Performed By: #### L 100.0100, L500.2500 #### [facility] [address] [place], [address] WBC (Bld) [#/Vol] 3.9 10*3/uL Low 4.4-11.0 [facility] Comment on above: Performed By: #### L 100.0100, L500.2500 #### [facility] [address] [place], [address] Carbon dioxide measurementOr dered By: Taylor Fast on 06-19-2024 CO2 [Moles/Vol] 29.0 mmol/L 21.0-32.0 [facility] Chloride measurementOrdered By: Taylor Fast on 06-19-2024 Chloride [Moles/Vol] 100 mmol/L 98-107 [facility] Comprehensive Metabolic Prof ilon 06-19-2024 Albumin [Mass/Vol] 3.5 g/dL Normal 3.2-5.0 [facility] Comment on above: Performed By: #### L 100.0100, L500.2500 #### [facility] [address] [facility] [place], [address] Albumin/Globulin [Mass ratio] 1.1 {ratio} Normal 0.9-2.4 [facility] Comment on above: Performed By: #### L 100.0100, L500.2500 #### [facility] [address] [facility] [place], [address] ALK P 57 U/L Normal 45-117 [facility] Comment on above: Performed By: #### L 100.0100, L500.2500 #### [facility] [address] [place], [address] ALT [Catalytic activity/Vol] 18 U/L Normal 16-61 [facility] Comment on above: Performed By: #### L 100.0100, L500.2500 #### [facility] [address] [place], [address] AST [Catalytic activity/Vol] 17 U/L Normal 15-37 [facility] Comment on above: Performed By: #### L 100.0100, L500.2500 #### [facility] [address] [place], [address] Bilirubin [Mass/Vol] 0.70 mg/dL Normal 0.20-1.00 [facility] Comment on above: Result Comment: For patients on eltrombopag therapy, use of Dimension [place] TBIL is not recommended. Performed By: #### L 100.0100, L500.2500 #### [facility] [address] [place], [address] BUN/CRE 41.3 RATIO High 10-20 [facility] Comment on above: Performed By: #### L 100.0100, L500.2500 #### [facility] [address] [place], [address] CA,Total 9.1 mg/dL Normal 8.5-10.1 [facility] Comment on above: Performed By: #### L 100.0100, L500.2500 #### [facility] [address] [place], [address] Chloride [Moles/Vol] 100 mmol/L Normal 98-107 [facility] Comment on above: Performed By: #### L 100.0100, L500.2500 #### [facility] [address] [place], [address] CO2 [Moles/Vol] 29.0 mmol/L Normal 21.0-32.0 [facility] Comment on above: Performed By: #### L 100.0100, L500.2500 #### [facility] [address] [place], [address] Creatinine [Mass/Vol] 0.39 mg/dL Low 0.70-1.30 [facility] Comment on above: Result Comment: The validity of the calculated GFR GFRAA in patients over 70 years has not been determined. Clinical correlation is essential. Performed By: #### L 100.0100, L500.2500 #### [facility] [address] [place], [address] EST GFR - AA 273 mL/min Normal >60 [facility] Comment on above: Result Comment: Afri can [place] GFR Calc Performed By: #### L 100.0100, L500.2500 #### [facility] [address] [place], [address] GAP 4 Low 5-15 [facility] Comment on above: Performed By: #### L 100.0100, L500.2500 #### [facility] [address] [place], [address] GFR/1.73 sq M.predicted among non-blacks MDRD (S/P/Bld) [Vol rate/Area] 225 mL/min/{1.73_m2} Normal >60 [facility] Comment on above: Result Comment: Non- GFR Calc Performed By: #### L 100.0100, L500.2500 #### [facility] [address] [place], [address] Globulin (S) [Mass/Vol] 3.3 g/dL Normal 2.2-4.2 [facility] Comment on above: Performed By: #### L 100.0100, L500.2500 #### [facility] [address] [place], [address] Glucose [Mass/Vol] 90 mg/dL Normal 74-106 [facility] Comment on above: Performed By: #### L 100.0100, L500.2500 #### [facility] [address] [place], [address] Potassium [Moles/Vol] 4.6 mmol/L Normal 3.5-5.1 [facility] Comment on above: Performed By: #### L 100.0100, L500.2500 #### [facility] [address] [place], [address] Sodium [Moles/Vol] 133 mmol/L Low 136-145 [facility] Comment on above: Performed By: #### L 100.0100, L500.2500 #### [facility] [address] [place], [address] T PROT 6.8 g/dL Normal 6.4-8.2 [facility] Comment on above: Performed By: #### L 100.0100, L500.2500 #### [facility] [address] [place], [address] Urea nitrogen [Mass/Vol] 16 mg/dL Normal 7-18 [facility] Comment on above: Performed By: #### L 100.0100, L500.2500 #### [facility] [address] [place], [address] Eosinophil percentageOrdered By: Taylor Fast on 06-19-2024 Eosinophils/100 WBC (Bld) 5.9 % High 0-5 [facility] Erythrocyte distribution wid th ratioOrdered By: [facility] Fast on 06-19-2024 Erythrocyte distribution width (RBC) [Ratio] 13.0 % 11.6-14.6 [facility] Erythrocyte distribution wid th standard deviationOrdered By: Taylor Fast on 06-19-2024 Erythrocyte distribution width (RBC) [Ratio] 43.3 fl 35.1-43.9 [facility] Glomerular filtration rate ( GFR) estimationOrdered By: Taylor Fast on 06-19-2024 GFR/1.73 sq M.predicted among non-blacks MDRD (S/P/Bld) [Vol rate/Area] 225 mL/min/{1.73_m2} >60 [facility] Comment on above: Non- GFR Calc Glucose measurementOrdered B y: Taylor Fast on 06-19-2024 Glucose [Mass/Vol] 90 mg/dL 74-106 [facility] Hematocrit Auto (Bld) [Volum e fraction]Ordered By: Taylor Fast on 06-19-2024 Hematocrit (Bld) [Volume fraction] 35.6 % Low 40-54 [facility] Hemoglobin A1con 06-19-2024 HbA1c (Bld) [Mass fraction] 5.2 % Normal 3.8-5.6 [facility] Comment on above: Result Comment: Norm al < 5.7 % Prediabetic 5.7 - 6.4 % Diabetic >or= 6.5 % Please note range changes. Performed By: #### L 100.0100, L500.2500 #### [facility] [address] [place], [address] Hemoglobin A1c percentageOrd ered By: Taylor on 06-19-2024 HbA1c (Bld) [Mass fraction] 5.2 % 3.8-5.6 [facility] Comment on above: Normal < 5.7 % Predi abetic 5.7 - 6.4 % Diabetic >or= 6.5 % Please note range changes. Hemoglobin measurementOrdere d By: Taylor Fast on 06-19-2024 Hemoglobin (Bld) [Mass/Vol] 12.1 g/dL Low 13.0-16.5 [facility] Immature granulocytes/100 WB C Auto (Bld)Ordered By: Taylor Fast on 06-19-2024 Immature granulocytes/100 WBC (Bld) 0.300 % 0.0-0.9 [facility] Comment on above: IG% - Immature Granu locytes (promyelocytes, myelocytes and metamyelocytes) > 1% indicates that a LEFT SHIFT is Present. Laboratory - Chemistry and C hemistry - challengeOrdered By: Taylor on 06-19-2024 AST [Catalytic activity/Vol] 17 U/L 15-37 [facility] MCV (mean corpuscular volume ) determinationOrdered By: Taylor Fast on 06-19-2024 MCV (RBC) [Entitic vol] 91.8 fL 80-94 [facility] Mean corpuscular hemoglobin (MCH) determinationOrdered By: Taylor Fast 06-19-2024 MCH (RBC) [Entitic mass] 31.2 pg 27.0-32.0 [facility] Mean corpuscular hemoglobin concentration (MCHC) determinationOrdered By: Taylor Fast 06-19-2024 MCHC (RBC) [Mass/Vol] 34.0 g/dL 32-36 [facility] Mean platelet volume determi nationOrdered By: Taylor Fast on 06-19-2024 Platelet mean volume (Bld) [Entitic vol] 10.3 fL 6.2-12.0 [facility] Monocyte percentageOrdered B y: Taylor Fast on 06-19-2024 Monocytes/100 WBC (Bld) 15.6 % High 0-10 [facility] Neutrophil percentageOrdered By: Taylor Fast on 06-19-2024 Neutrophils/100 WBC (Bld) 41.5 % Low 47-70 [facility] Nucleated red blood cell per centageOrdered By: Taylor Fast on 06-19-2024 Nucleated RBC/100 WBC (Bld) [Ratio] 0 % 0-5 [facility] Platelet countOrdered By: De bra Fast on 06-19-2024 Platelets (Bld) [#/Vol] 176 10*3/uL 150-450 [facility] Potassium measurementOrdered By: Taylor Fast on 06-19-2024 Potassium [Moles/Vol] 4.6 mmol/L 3.5-5.1 [facility] RBC Auto (Bld) [#/Vol]Ordere d By: Taylor Fast on 06-19-2024 RBC (Bld) [#/Vol] 3.88 10*6/uL Low 4.6-6.2 [facility] Serum anion gap measurementO rdered By: Taylor Fast on 06-19-2024 Anion gap [Moles/Vol] 4 mmol/L Low 5-15 [facility] Serum globulin measurementOr dered By: Taylor Fast on 06-19-2024 Globulin (S) [Mass/Vol] 3.3 g/dL 2.2-4.2 [facility] Serum or plasma alanine kumar otransferase (ALT) measurementOrdered By: Taylor Fast on 06-19-2024 ALT [Catalytic activity/Vol] 18 U/L 16-61 [facility] Serum or plasma albumin marialuisa urement (mass/volume)Ordered By: Taylor Fast on 06-19-2024 Albumin [Mass/Vol] 3.5 g/dL 3.2-5.0 [facility] Serum or plasma alkaline gilberto sphatase measurementOrdered By: Taylor Fast on 06-19-2024 ALP [Catalytic activity/Vol] 57 U/L 45-117 [facility] Serum or plasma calcium marialuisa urement (mass/volume)Ordered By: Taylor Fast on 06-19-2024 Calcium [Mass/Vol] 9.1 mg/dL 8.5-10.1 [facility] Serum or plasma creatinine m easurement (mass/volume)Ordered By: Taylor Fast on 06-19-2024 Creatinine [Mass/Vol] 0.39 mg/dL Low 0.70-1.30 [facility] Comment on above: The validity of the calculated GFR & GFRAA in patients over 70 years has not been determined. Clinical correlation is essential. Serum or plasma thyroid stim ulating hormone (TSH) measurement (units/volume)Ordered By: Taylor on 06-19-2024 TSH Qn 3.230 uIU/mL 0.358-3.74 0 [facility] Serum or plasma urea nitroge n measurement (mass/volume)Ordered By: Taylor on 06-19-2024 Urea nitrogen [Mass/Vol] 16 mg/dL 7-18 [facility] Sodium levelOrdered By: a Fast on 06-19-2024 Sodium [Moles/Vol] 133 mmol/L Low 136-145 [facility] Thyroid Stim Hormone (TSH)on 06-19-2024 TSH 3.230 uIU/mL Normal 0.358-3.74 0 [facility] Comment on above: Performed By: #### L 100.0100, L500.2500 #### [facility] [address] [place] [address], [address] Total proteinOrdered By: Lyla ra Fast on 06-19-2024 Protein [Mass/Vol] 6.8 g/dL 6.4-8.2 [facility] Vitamin D,25 Hydroxyon 06-19 Vitamin D 25-OH 57.9 ng/mL Normal [facility] Comment on above: Result Comment: Christen min D 25(OH) Status Range Deficiency <20 ng/mL (50nmol/L) Insufficiency 20 - 30 ng/mL (50 - 75 nmol/L) Sufficiency 30 - 100 ng/mL (75 - 250 nmol/L) Toxicity >100 ng/mL (>250 nmol/L) Performed By: #### L 100.0100, L500.2500 #### [facility] [place], [address] White blood cell (WBC) count Ordered By: Taylor Fast on 06-19-2024 WBC (Bld) [#/Vol] 3.9 10*3/uL Low 4.4-11.0 [facility] Absolute lymphocyte countOrd ered By: Taylor Fast on 07-27-2023 Lymphocytes Auto (Unsp spec) [#/Vol] 1.36 10*3/uL 0.83-4.51 [facility] Automated lymphocyte count a s percentage of total leukocytesOrdered By: Taylor Fast on 07-27-2023 Lymphocytes/100 WBC Auto (Unsp spec) 30.2 % 19-41 [facility] Basophil percentageOrdered B y: Taylor Fast on 07-27-2023 Basophils/100 WBC (Bld) 0.9 % 0-1 [facility] Bilirubin [Mass/Vol] 0.50 mg/dL 0.20-1.00 [facility] Comment on above: For patients on eltr ombopag therapy, use of Dimension [place] TBIL is not recommended. Chloride [Moles/Vol] 99 mmol/L 98-107 [facility] Eosinophils/100 WBC (Bld) 6.2 % 0-5 [facility] Glucose [Mass/Vol] 134 mg/dL 74-106 [facility] Comment on above: Fasting Glucose resu lt greater than or equal to 126 mg/dL suggests DIABETES MELLITUS per A.D.A. criteria. Hemoglobin (Bld) [Mass/Vol] 13.5 g/dL 13.0-16.5 [facility] Monocytes/100 WBC (Bld) 14.9 % 0-10 [facility] Neutrophils (Bld) [#/Vol] 2.2 10*3/uL 2.0-7.7 [facility] Neutrophils/100 WBC (Bld) 47.6 % 47-70 [facility] Potassium [Moles/Vol] 4.7 mmol/L 3.5-5.1 [facility] Protein [Mass/Vol] 7.4 g/dL 6.4-8.2 [facility] Sodium [Moles/Vol] 134 mmol/L 136-145 [facility] WBC (Bld) [#/Vol] 4.5 10*3/uL 4.4-11.0 [facility] Determination of erythrocyte mean corpuscular volume (MCV)Ordered By: [facility] on 07-27-2023 MCV (RBC) [Entitic vol] 94.6 fL 80-94 [facility] Erythrocyte distribution wid th ratioOrdered By: [facility] on 07-27-2023 Erythrocyte distribution width (RBC) [Ratio] 12.2 % 11.6-14.6 [facility] Erythrocyte distribution wid th standard deviationOrdered By: [facility] on 07-27-2023 Erythrocyte distribution width (RBC) [Entitic vol] 42.5 fL 35.1-43.9 [facility] Hematocrit Auto (Bld) [Volum e fraction]Ordered By: [facility] on 07-27-2023 Hematocrit (Bld) [Volume fraction] 41.7 % 40-54 [facility] Immature granulocytes/100 WB C Auto (Bld)Ordered By: [facility] on 07-27-2023 Immature granulocytes/100 WBC (Bld) 0.200 % 0.0-0.9 [facility] Comment on above: IG% - Immature Granu locytes (promyelocytes, myelocytes and metamyelocytes) > 1% indicates that a LEFT SHIFT is Present. Laboratory - Chemistry and C hemistry - challengeOrdered By: [facility] on 07-27-2023 Albumin/Globulin [Mass ratio] 0.9 {ratio} 0.9-2.4 [facility] ALP [Catalytic activity/Vol] 64 U/L 45-117 [facility] ALT [Catalytic activity/Vol] 18 U/L 16-61 [facility] CO2 [Moles/Vol] 30.0 mmol/L 21.0-32.0 [facility] Cobalamin (Vitamin B12) [Mass/Vol] 1966 pg/mL 211-911 [facility] Globulin (S) [Mass/Vol] 3.8 g/dL 2.2-4.2 [facility] Urea nitrogen/Creatinine [Mass ratio] 25.6 mg/mg 10-20 [facility] - Hematology and Cell countsOrdered By: Taylor on 07-27-2023 MCH (RBC) [Entitic mass] 30.6 pg 27.0-32.0 [facility] MCHC (RBC) [Mass/Vol] 32.4 g/dL 32-36 [facility] Nucleated RBC/100 WBC (Bld) [Ratio] 0 % 0-5 [facility] Platelet mean volume (Bld) [Entitic vol] 10.1 fL 6.2-12.0 [facility] Platelets (Bld) [#/Vol] 222 10*3/uL 150-450 [facility] No Panel InformationOrdered By: Taylor on 07-27-2023 Estimated GFR (MDRD) Amer 243 mL/min >60 [facility] Comment on above: GFR Calc Estimated GFR (MDRD) Non-Af Amer 201 mL/min >60 [facility] Comment on above: Non- GFR Calc Folate 32.10 ng/mL 3.1-55.4 [facility] Vitamin D 25-Hydroxy 76.3 ng/mL [facility] Comment on above: Vitamin D 25(OH) Sta tus Range Deficiency <20 ng/mL (50nmol/L) Insufficiency 20 - 30 ng/mL (50 - 75 nmol/L) Sufficiency 30 - 100 ng/mL (75 - 250 nmol/L) Toxicity >100 ng/mL (>250 nmol/L) RBC Auto (Bld) [#/Vol]Ordere d By: Taylor on 07-27-2023 RBC (Bld) [#/Vol] 4.41 10*6/uL 4.6-6.2 [facility] Serum or plasma calcium marialuisa urement (mass/volume)Ordered By: Taylor on 07-27-2023 Calcium [Mass/Vol] 9.6 mg/dL 8.5-10.1 [facility] Serum or plasma creatinine m easurement (mass/volume)Ordered By: Taylor on 07-27-2023 Creatinine [Mass/Vol] 0.43 mg/dL 0.70-1.30 [facility] Comment on above: The validity of the calculated GFR & GFRAA in patients over 70 years has not been determined. Clinical correlation is essential. Serum or plasma urea nitroge n measurement (mass/volume)Ordered By: Taylor on 07-27-2023 Urea nitrogen [Mass/Vol] 11 mg/dL 7-18 [facility] Thin prep Papanicolaou smear with manual screeningOrdered By: Taylor on 07-27-2023 Thin prep Papanicolaou smear with manual screening 3.6 g/dL 3.2-5.0 [facility] Thin prep Papanicolaou smear with manual screening 22 U/L 15-37 [facility] Thin prep Papanicolaou smear with manual screening 5 5-15 [facility] Whole blood hemoglobin A1c/t otal hemoglobin ratio (mass fraction)Ordered By: Taylor on 07-27-2023 HbA1c (Bld) [Mass fraction] 5.1 % 3.8-5.6 [facility] Comment on above: Normal < 5.7 % Predi abetic 5.7 - 6.4 % Diabetic >or= 6.5 % Please note range changes. Basophil percentageOrdered B y: Taylor on 04-18-2023 Bilirubin [Mass/Vol] 0.60 mg/dL 0.20-1.00 [facility] Comment on above: For patients on eltr ombopag therapy, use of Dimension [place] TBIL is not recommended. Chloride [Moles/Vol] 103 mmol/L 98-107 [facility] Glucose [Mass/Vol] 94 mg/dL 74-106 [facility] Potassium [Moles/Vol] 4.6 mmol/L 3.5-5.1 [facility] Protein [Mass/Vol] 7.1 g/dL 6.4-8.2 [facility] Sodium [Moles/Vol] 137 mmol/L 136-145 [facility] Laboratory - Chemistry and C hemistry - challengeOrdered By: [facility] on 04-18-2023 ALP [Catalytic activity/Vol] 59 U/L 45-117 [facility] ALT [Catalytic activity/Vol] 18 U/L 16-61 [facility] CO2 [Moles/Vol] 28.0 mmol/L 21.0-32.0 [facility] Globulin (S) [Mass/Vol] 3.4 g/dL 2.2-4.2 [facility] Urea nitrogen/Creatinine [Mass ratio] 38.5 mg/mg 10-20 [facility] No Panel InformationOrdered By: Taylor on 04-18-2023 Estimated GFR (MDRD) Amer 271 mL/min >60 [facility] Comment on above: GFR Calc Estimated GFR (MDRD) Non-Af Amer 224 mL/min >60 [facility] Comment on above: Non- GFR Calc Vitamin D 25-Hydroxy 85.4 ng/mL [facility] Comment on above: Vitamin D 25(OH) Sta tus Range Deficiency <20 ng/mL (50nmol/L) Insufficiency 20 - 30 ng/mL (50 - 75 nmol/L) Sufficiency 30 - 100 ng/mL (75 - 250 nmol/L) Toxicity >100 ng/mL (>250 nmol/L) Serum or plasma albumin marialuisa urement (mass/volume)Ordered By: [facility] on 04-18-2023 Albumin [Mass/Vol] 3.7 g/dL 3.2-5.0 [facility] Serum or plasma albumin/glob ulin mass ratioOrdered By: [facility] on 04-18-2023 Albumin/Globulin [Mass ratio] 1.1 {ratio} 0.9-2.4 [facility] Serum or plasma calcium marialuisa urement (mass/volume)Ordered By: Taylor on 04-18-2023 Calcium [Mass/Vol] 9.2 mg/dL 8.5-10.1 [facility] Serum or plasma creatinine m easurement (mass/volume)Ordered By: Taylor on 04-18-2023 Creatinine [Mass/Vol] 0.39 mg/dL 0.70-1.30 [facility] Comment on above: The validity of the calculated GFR & GFRAA in patients over 70 years has not been determined. Clinical correlation is essential. Serum or plasma urea nitroge n measurement (mass/volume)Ordered By: Taylor on 04-18-2023 Urea nitrogen [Mass/Vol] 15 mg/dL 7-18 [facility] Thin prep Papanicolaou smear with manual screeningOrdered By: [facility] 04-18-2023 Thin prep Papanicolaou smear with manual screening 18 U/L 15-37 [facility] Thin prep Papanicolaou smear with manual screening 6 5-15 [facility] Whole blood hemoglobin A1c/t otal hemoglobin ratio (mass fraction)Ordered By: Taylor Zuniga on 04-18-2023 HbA1c (Bld) [Mass fraction] 5.0 % 3.8-5.6 [facility] Comment on above: Normal < 5.7 % Predi abetic 5.7 - 6.4 % Diabetic >or= 6.5 % Please note range changes. Absolute lymphocyte countOrd ered By: Taylor Efrain on 03-15-2023 Lymphocytes Auto (Unsp spec) [#/Vol] 1.24 10*3/uL 0.83-4.51 [facility] Basophil percentageOrdered B y: [facility] Efrain on 03-15-2023 Basophils/100 WBC (Bld) 0.7 % 0-1 [facility] Bilirubin [Mass/Vol] 0.60 mg/dL 0.20-1.00 [facility] Comment on above: For patients on eltr ombopag therapy, use of Dimension [place] TBIL is not recommended. Chloride [Moles/Vol] 102 mmol/L 98-107 [facility] Eosinophils/100 WBC (Bld) 2.9 % 0-5 [facility] Glucose [Mass/Vol] 115 mg/dL 74-106 [facility] Comment on above: Fasting Glucose resu lt from 100 to 125 mg/dL suggests IMPAIRED HOMEOSTASIS per A.D.A. criteria. Neutrophils (Bld) [#/Vol] 2.3 10*3/uL 2.0-7.7 [facility] Neutrophils/100 WBC (Bld) 54.5 % 47-70 [facility] Potassium [Moles/Vol] 4.4 mmol/L 3.5-5.1 [facility] Protein [Mass/Vol] 7.0 g/dL 6.4-8.2 [facility] Sodium [Moles/Vol] 135 mmol/L 136-145 [facility] WBC (Bld) [#/Vol] 4.2 10*3/uL 4.4-11.0 [facility] Blood erythrocytes count (nu mber/volume)Ordered By: Taylor Efrain on 03-15-2023 RBC (Bld) [#/Vol] 4.33 10*6/uL 4.6-6.2 [facility] Blood hemoglobin measurement (mass/volume)Ordered By: Taylor on 03-15-2023 Hemoglobin (Bld) [Mass/Vol] 13.6 g/dL 13.0-16.5 [facility] Blood lymphocytes/100 leukoc ytesOrdered By: [facility] on 03-15-2023 Lymphocytes/100 WBC (Bld) 29.7 % 19-41 [facility] Blood monocytes/100 leukocyt esOrdered By: Taylor on 03-15-2023 Monocytes/100 WBC (Bld) 11.7 % 0-10 [facility] Blood platelet mean volumeOr dered By: [facility] on 03-15-2023 Platelet mean volume (Bld) [Entitic vol] 10.7 fL 6.2-12.0 [facility] Determination of erythrocyte mean corpuscular volume (MCV)Ordered By: [facility] on 03-15-2023 MCV (RBC) [Entitic vol] 96.5 fL 80-94 [facility] Hematocrit Auto (Bld) [Volum e fraction]Ordered By: [facility] on 03-15-2023 Hematocrit (Bld) [Volume fraction] 41.8 % 40-54 [facility] - Chemistry and C hemistry - challengeOrdered By: [facility] on 03-15-2023 ALP [Catalytic activity/Vol] 60 U/L 45-117 [facility] ALT [Catalytic activity/Vol] 18 U/L 16-61 [facility] CO2 [Moles/Vol] 32.0 mmol/L 21.0-32.0 [facility] Globulin (S) [Mass/Vol] 3.3 g/dL 2.2-4.2 [facility] Urea nitrogen/Creatinine [Mass ratio] 28.3 mg/mg 10-20 [facility] - Hematology and Cell countsOrdered By: [facility] on 03-15-2023 Erythrocyte distribution width (RBC) [Entitic vol] 43.7 fL 35.1-43.9 [facility] Erythrocyte distribution width (RBC) [Ratio] 12.2 % 11.6-14.6 [facility] Immature granulocytes/100 WBC (Bld) 0.500 % 0.0-0.9 [facility] Comment on above: IG% - Immature Granu locytes (promyelocytes, myelocytes and metamyelocytes) > 1% indicates that a LEFT SHIFT is Present. MCH (RBC) [Entitic mass] 31.4 pg 27.0-32.0 [facility] Nucleated RBC/100 WBC (Bld) [Ratio] 0 % 0-5 [facility] MCHC Auto (RBC) [Mass/Vol]Or dered By: Taylor on 03-15-2023 MCHC (RBC) [Mass/Vol] 32.5 g/dL 32-36 [facility] No Panel InformationOrdered By: Taylor on 03-15-2023 Estimated GFR (MDRD) Amer 246 mL/min >60 [facility] Comment on above: GFR Calc Estimated GFR (MDRD) Non-Af Amer 203 mL/min >60 [facility] Comment on above: Non- GFR Calc Vitamin D 25-Hydroxy 105.2 ng/mL [facility] Comment on above: Vitamin D 25(OH) [...] 03-15-2023 Platelets (Bld) [#/Vol] 190 10*3/uL 150-450 [facility] Serum or plasma albumin marialuisa urement (mass/volume)Ordered By: Taylor Fast on 03-15-2023 Albumin [Mass/Vol] 3.7 g/dL 3.2-5.0 [facility] Serum or plasma albumin/glob ulin mass ratioOrdered By: [facility] on 03-15-2023 Albumin/Globulin [Mass ratio] 1.1 {ratio} 0.9-2.4 [facility] Serum or plasma calcium marialuisa urement (mass/volume)Ordered By: [facility] on 03-15-2023 Calcium [Mass/Vol] 9.2 mg/dL 8.5-10.1 [facility] Serum or plasma creatinine m easurement (mass/volume)Ordered By: [facility] on 03-15-2023 Creatinine [Mass/Vol] 0.42 mg/dL 0.70-1.30 [facility] Comment on above: The validity of the calculated GFR & GFRAA in patients over 70 years has not been determined. Clinical correlation is essential. Serum or plasma urea nitroge n measurement (mass/volume)Ordered By: [facility] on 03-15-2023 Urea nitrogen [Mass/Vol] 12 mg/dL 7-18 [facility] Thin prep Papanicolaou smear with manual screeningOrdered By: [facility] on 03-15-2023 Thin prep Papanicolaou smear with manual screening 14 U/L 15-37 [facility] Thin prep Papanicolaou smear with manual screening 1 5-15 [facility] Absolute lymphocyte countOrd ered By: [facility] on 01-03-2023 Lymphocytes Auto (Unsp spec) [#/Vol] 1.42 10*3/uL 0.83-4.51 [facility] Basophil percentageOrdered B y: [facility] on 01-03-2023 Basophils/100 WBC (Bld) 0.5 % 0-1 [facility] Bilirubin [Mass/Vol] 0.50 mg/dL 0.20-1.00 [facility] Comment on above: For patients on eltr ombopag therapy, use of Dimension [place] TBIL is not recommended. Chloride [Moles/Vol] 104 mmol/L 98-107 [facility] Eosinophils/100 WBC (Bld) 4.9 % 0-5 [facility] Glucose [Mass/Vol] 94 mg/dL 74-106 [facility] Neutrophils (Bld) [#/Vol] 1.7 10*3/uL 2.0-7.7 [facility] Neutrophils/100 WBC (Bld) 43.7 % 47-70 [facility] Potassium [Moles/Vol] 4.5 mmol/L 3.5-5.1 [facility] Protein [Mass/Vol] 7.0 g/dL 6.4-8.2 [facility] Sodium [Moles/Vol] 137 mmol/L 136-145 [facility] WBC (Bld) [#/Vol] 3.9 10*3/uL 4.4-11.0 [facility] Blood erythrocytes count (nu mber/volume)Ordered By: Taylor Fast on 01-03-2023 RBC (Bld) [#/Vol] 4.21 10*6/uL 4.6-6.2 [facility] Blood hemoglobin measurement (mass/volume)Ordered By: Taylor Fast on 01-03-2023 Hemoglobin (Bld) [Mass/Vol] 13.4 g/dL 13.0-16.5 [facility] Blood lymphocytes/100 leukoc ytesOrdered By: Taylor Fast on 01-03-2023 Lymphocytes/100 WBC (Bld) 36.7 % 19-41 [facility] Blood monocytes/100 leukocyt esOrdered By: Taylor Fast on 01-03-2023 Monocytes/100 WBC (Bld) 13.7 % 0-10 [facility] Blood platelet mean volumeOr dered By: Taylor Fast on 01-03-2023 Platelet mean volume (Bld) [Entitic vol] 10.5 fL 6.2-12.0 [facility] Determination of erythrocyte mean corpuscular volume (MCV)Ordered By: Taylor Fast on 01-03-2023 MCV (RBC) [Entitic vol] 96.2 fL 80-94 [facility] Hematocrit Auto (Bld) [Volum e fraction]Ordered By: Taylor Fast on 01-03-2023 Hematocrit (Bld) [Volume fraction] 40.5 % 40-54 [facility] - Chemistry and C hemistry - challengeOrdered By: Taylor Fast on 01-03-2023 ALP [Catalytic activity/Vol] 122 U/L 45-117 [facility] ALT [Catalytic activity/Vol] 21 U/L 16-61 [facility] CO2 [Moles/Vol] 29.0 mmol/L 21.0-32.0 [facility] Globulin (S) [Mass/Vol] 3.4 g/dL 2.2-4.2 [facility] Urea nitrogen/Creatinine [Mass ratio] 39.3 mg/mg 10-20 [facility] - Hematology and Cell countsOrdered By: Taylor on 01-03-2023 Erythrocyte distribution width (RBC) [Entitic vol] 45.7 fL 35.1-43.9 [facility] Erythrocyte distribution width (RBC) [Ratio] 12.8 % 11.6-14.6 [facility] Immature granulocytes/100 WBC (Bld) 0.500 % 0.0-0.9 [facility] Comment on above: IG% - Immature Granu locytes (promyelocytes, myelocytes and metamyelocytes) > 1% indicates that a LEFT SHIFT is Present. MCH (RBC) [Entitic mass] 31.8 pg 27.0-32.0 [facility] Nucleated RBC/100 WBC (Bld) [Ratio] 0 % 0-5 [facility] MCHC Auto (RBC) [Mass/Vol]Or dered By: Taylor on 01-03-2023 MCHC (RBC) [Mass/Vol] 33.1 g/dL 32-36 [facility] No Panel InformationOrdered By: Taylor on 01-03-2023 Estimated GFR (MDRD) Amer 258 mL/min >60 [facility] Comment on above: GFR Calc Estimated GFR (MDRD) Non-Af Amer 213 mL/min >60 [facility] Comment on above: Non- GFR Calc Vitamin D 25-Hydroxy 96.1 ng/mL [facility] Comment on above: Vitamin D 25(OH) Sta tus Range Deficiency <20 ng/mL (50nmol/L) Insufficiency 20 - 30 ng/mL (50 - 75 nmol/L) Sufficiency 30 - 100 ng/mL (75 - 250 nmol/L) Toxicity >100 ng/mL (>250 nmol/L) Platelets bldOrdered By: Lyla greene Fast on 01-03-2023 Platelets (Bld) [#/Vol] 207 10*3/uL 150-450 [facility] Serum or plasma albumin marialuisa urement (mass/volume)Ordered By: Taylor Zuniga on 01-03-2023 Albumin [Mass/Vol] 3.6 g/dL 3.2-5.0 [facility] Serum or plasma albumin/glob ulin mass ratioOrdered By: Taylor Zuniga on 01-03-2023 Albumin/Globulin [Mass ratio] 1.1 {ratio} 0.9-2.4 [facility] Serum or plasma calcium marialuisa urement (mass/volume)Ordered By: Taylor Zuniga on 01-03-2023 Calcium [Mass/Vol] 9.2 mg/dL 8.5-10.1 [facility] Serum or plasma creatinine m easurement (mass/volume)Ordered By: Taylor Zuniga on 01-03-2023 Creatinine [Mass/Vol] 0.41 mg/dL 0.70-1.30 [facility] Comment on above: The validity of the calculated GFR & GFRAA in patients over 70 years has not been determined. Clinical correlation is essential. Serum or plasma urea nitroge n measurement (mass/volume)Ordered By: Taylor Zuniga on 01-03-2023 Urea nitrogen [Mass/Vol] 16 mg/dL 7-18 [facility] Thin prep Papanicolaou smear with manual screeningOrdered By: Taylor Zuniga on 01-03-2023 Thin prep Papanicolaou smear with manual screening 15 U/L 15-37 [facility] Thin prep Papanicolaou smear with manual screening 4 5-15 [facility] Whole blood hemoglobin A1c/t otal hemoglobin ratio (mass fraction)Ordered By: Taylor Zuniga on 01-03-2023 HbA1c (Bld) [Mass fraction] 5.0 % 3.8-5.6 [facility] Comment on above: Normal < 5.7 % Predi abetic 5.7 - 6.4 % Diabetic >or= 6.5 % Please note range changes. Absolute lymphocyte countOrd ered By: Dr. Zuniga on 09-13-2022 Lymphocytes Auto (Unsp spec) [#/Vol] 1.17 10*3/uL 0.83-4.51 [facility] Basophil percentageOrdered B y: Dr. Zuniga on 09-13-2022 Basophil percentage 0 SEEN /hpf 0-5 [facility] Basophils/100 WBC (Bld) 0.8 % 0-1 [facility] Bilirubin [Mass/Vol] 0.40 mg/dL 0.20-1.00 [facility] Comment on above: For patients on eltr ombopag therapy, use of Dimension [place] TBIL is not recommended. Chloride [Moles/Vol] 105 mmol/L 98-107 [facility] Cholesterol [Mass/Vol] 175 mg/dL <200 [facility] Comment on above: <200 mg/dL Desirable 200-240 mg/dL Borderline >240 mg/dL High Risk Eosinophils/100 WBC (Bld) 3.0 % 0-5 [facility] Glucose [Mass/Vol] 122 mg/dL 74-106 [facility] Comment on above: Fasting Glucose resu lt from 100 to 125 mg/dL suggests IMPAIRED HOMEOSTASIS per A.D.A. criteria. Neutrophils (Bld) [#/Vol] 2.9 10*3/uL 2.0-7.7 [facility] Neutrophils/100 WBC (Bld) 58.0 % 47-70 [facility] Potassium [Moles/Vol] 4.5 mmol/L 3.5-5.1 [facility] Protein [Mass/Vol] 7.4 g/dL 6.4-8.2 [facility] Sodium [Moles/Vol] 139 mmol/L 136-145 [facility] Triglyceride [Mass/Vol] 91 mg/dL <199 [facility] Comment on above: The drugs N-Acetylcy steine and Metamizole may falsely depress this assay.Serum Triglycerides Reference Interval Normal <150 mg/dL Borderline high 150 - 199 mg/dL High 200 - 499 mg/dL Very High > or = 500 mg/dL WBC (Bld) [#/Vol] 5.0 10*3/uL 4.4-11.0 [facility] Bilirubin Test strip Ql (U)O rdered By: Dr. Zuniga on 09-13-2022 Bilirubin Ql (U) Negative Negative [facility] Blood erythrocytes count (nu mber/volume)Ordered By: Dr. Zuniga on 09-13-2022 RBC (Bld) [#/Vol] 4.25 10*6/uL 4.6-6.2 [facility] Blood hemoglobin measurement (mass/volume)Ordered By: Dr. Zuniga on 09-13-2022 Hemoglobin (Bld) [Mass/Vol] 13.5 g/dL 13.0-16.5 [facility] Blood lymphocytes/100 leukoc ytesOrdered By: Dr. Zuniga on 09-13-2022 Lymphocytes/100 WBC (Bld) 23.5 % 19-41 [facility] Blood monocytes/100 leukocyt esOrdered By: Dr. Zuniga on 09-13-2022 Monocytes/100 WBC (Bld) 14.3 % 0-10 [facility] Blood platelet mean volumeOr dered By: Dr. Zuniga on 09-13-2022 Platelet mean volume (Bld) [Entitic vol] 11.4 fL 6.2-12.0 [facility] Determination of erythrocyte mean corpuscular volume (MCV)Ordered By: Dr. Zuniga on 09-13-2022 MCV (RBC) [Entitic vol] 97.9 fL 80-94 [facility] Hematocrit Auto (Bld) [Volum e fraction]Ordered By: Dr. Zuniga on 09-13-2022 Hematocrit (Bld) [Volume fraction] 41.6 % 40-54 [facility] Ketones Test strip Ql (U)Ord ered By: Dr. Zuniga on 09-13-2022 Ketones Ql (U) Negative Negative [facility] Laboratory - Chemistry and C hemistry - challengeOrdered By: Dr. Zuniga on 09-13-2022 ALP [Catalytic activity/Vol] 63 U/L 45-117 [facility] ALT [Catalytic activity/Vol] 26 U/L 16-61 [facility] CO2 [Moles/Vol] 29.0 mmol/L 21.0-32.0 [facility] Cobalamin (Vitamin B12) [Mass/Vol] 982 pg/mL 211-911 [facility] Globulin (S) [Mass/Vol] 3.6 g/dL 2.2-4.2 [facility] Natriuretic peptide B (Bld) [Mass/Vol] 20.3 pg/mL 0-100 [facility] Urea nitrogen/Creatinine [Mass ratio] 48.7 mg/mg 10-20 [facility] Laboratory - Hematology and Cell countsOrdered By: Dr. Zuniga on 09-13-2022 Erythrocyte distribution width (RBC) [Entitic vol] 46.2 fL 35.1-43.9 [facility] Erythrocyte distribution width (RBC) [Ratio] 12.9 % 11.6-14.6 [facility] Immature granulocytes/100 WBC (Bld) 0.400 % 0.0-0.9 [facility] Comment on above: IG% - Immature Granu locytes (promyelocytes, myelocytes and metamyelocytes) > 1% indicates that a LEFT SHIFT is Present. MCH (RBC) [Entitic mass] 31.8 pg 27.0-32.0 [facility] Nucleated RBC/100 WBC (Bld) [Ratio] 0 % 0-5 [facility] MCHC Auto (RBC) [Mass/Vol]Or dered By: Dr. Zuniga on 09-13-2022 MCHC (RBC) [Mass/Vol] 32.5 g/dL 32-36 [facility] Mucus LM Ql (Urine sed)Order ed By: Dr. Zuniga on 09-13-2022 Mucus Ql (Urine sed) 0 SEEN /hpf [facility] Nitrite Test strip Ql (U)Ord ered By: Dr. Zuniga on 09-13-2022 Nitrite Ql (U) Negative Negative [facility] No Panel InformationOrdered By: Dr. Zuniga on 09-13-2022 Estimated GFR (MDRD) Amer 255 mL/min >60 [facility] Comment on above: GFR Calc Estimated GFR (MDRD) Non-Af Amer 211 mL/min >60 [facility] Comment on above: Non- GFR Calc Prostate Specific Antigen Screen 3.23 ng/mL 0.00-4.00 [facility] Comment on above: This test was perfor med using the TPSA assay method [facility]. Values obtained with differentassay methods cannot be used interchangably.When changing PSA assays in the course of monitoring apatient, additional sequential testing should be carriedout to confirm baseline values. Thyroid Stimulating Hormone (TSH) 2.06 uIU/mL 0.358-3.74 [facility] Urine Microalbumin/Creatinin e Ratio 54.2 mg/g CRE <30 [facility] Vitamin D 25-Hydroxy 95.7 ng/mL [facility] Comment on above: Vitamin D 25(OH) Sta tus Range Deficiency <20 ng/mL (50nmol/L) Insufficiency 20 - 30 ng/mL (50 - 75 nmol/L) Sufficiency 30 - 100 ng/mL (75 - 250 nmol/L) Toxicity >100 ng/mL (>250 nmol/L) Platelets bldOrdered By: Dr. uZniga on 09-13-2022 Platelets (Bld) [#/Vol] 188 10*3/uL 150-450 [facility] Protein Test strip Ql (U)Ord ered By: Dr. Zuniga on 09-13-2022 Protein Ql (U) Negative Negative [facility] Serum or plasma albumin marialuisa urement (mass/volume)Ordered By: Dr. Zuniga on 09-13-2022 Albumin [Mass/Vol] 3.8 g/dL 3.2-5.0 [facility] Serum or plasma albumin/glob ulin mass ratioOrdered By: Dr. Zuniga on 09-13-2022 Albumin/Globulin [Mass ratio] 1.1 {ratio} 0.9-2.4 [facility] Serum or plasma calcium marialuisa urement (mass/volume)Ordered By: Dr. Zuniga on 09-13-2022 Calcium [Mass/Vol] 9.4 mg/dL 8.5-10.1 [facility] Serum or plasma cholesterol in HDL measurement (mass/volume)Ordered By: Dr. Zuniga on 09-13-2022 Cholesterol in HDL [Mass/Vol] 79 mg/dL >40 [facility] Comment on above: The drugs N-Acetylcy steine and Metamizole may falsely depress this assay. Reference Range HDL <40 mg/dL Low HDL Cholesterol HDL >or= 60 mg/dL High HDL Cholesterol Serum or plasma cholesterol in VLDL measurement (mass/volume)Ordered By: Dr. Zuniga on 09-13-2022 Cholesterol in VLDL [Mass/Vol] 18 mg/dL 5-40 [facility] Serum or plasma creatinine m easurement (mass/volume)Ordered By: Dr. Zuniga on 09-13-2022 Creatinine [Mass/Vol] 0.41 mg/dL 0.70-1.30 [facility] Comment on above: The validity of the calculated GFR & GFRAA in patients over 70 years has not been determined. Clinical correlation is essential. Serum or plasma folate measu rement (mass/volume)Ordered By: Dr. Zuniga on 09-13-2022 Folate [Mass/Vol] 29.20 ng/mL 3.1-55.4 [facility] Serum or plasma low density lipoprotein (LDL) cholesterol measurement (mass/volume)Ordered By: Dr. Zuniga on 09-13-2022 Cholesterol in LDL [Mass/Vol] 78 mg/dL 0-130 [facility] Serum or plasma urea nitroge n measurement (mass/volume)Ordered By: Dr. Zuniga on 09-13-2022 Urea nitrogen [Mass/Vol] 20 mg/dL 7-18 [facility] Squamous epithelial cells de tection in urine sediment by light microscopyOrdered By: Dr. Zuniga on 09-13-2022 Epithelial cells.squamous LM Ql (Urine sed) 0 SEEN /hpf 0-5 [facility] Thin prep Papanicolaou smear with manual screeningOrdered By: Dr. Zuniga on 09-13-2022 Thin prep Papanicolaou smear with manual screening 16 U/L 15-37 [facility] Thin prep Papanicolaou smear with manual screening 5 5-15 [facility] Thin prep Papanicolaou smear with manual screening 16.1 mg/L NO RANGE EST. [facility] Urine blood detectionOrdered By: Dr. Zuniga on 09-13-2022 RBC Ql (U) Negative Negative [facility] RBC Ql (U) 0 SEEN /hpf 0-5 [facility] Urine clarityOrdered By: Dr. Zuniga on 09-13-2022 Clarity (U) Clear Clear [facility] Urine color determinationOrd ered By: Dr. Zuniga on 09-13-2022 Color (U) Yellow Yellow [facility] Urine creatinine measurement (mass/volume)Ordered By: Dr. Zuniga on 09-13-2022 Creatinine (U) [Mass/Vol] 29.70 mg/dL NO RANGE EST. [facility] Urine glucose detectionOrder ed By: Dr. Zuniga on 09-13-2022 Glucose Ql (U) Normal mg/dl Normal [facility] Urine leukocyte esterase det ection by dipstickOrdered By: Dr. Zuniga on 09-13-2022 Leukocyte esterase Test strip Ql (U) 25 /ul Negative [facility] Urine pHOrdered By: Dr. Zuniga on 09-13-2022 pH (U) 6.5 [pH] 5.0 - 8.0 [facility] Urine sediment bacteria coun t by microscopy (number/high power field)Ordered By: Dr. Zuniga on 09-13-2022 Bacteria LM.HPF (Urine sed) [#/Area] 0 /[HPF] None Seen [facility] Urine specific gravity measu rementOrdered By: Dr. Zuniga on 09-13-2022 Specific gravity (U) [Rel density] 1.010 1.002-1.03 0 [facility] Urobilinogen Auto test strip Ql (U)Ordered By: Dr. Zuniga on 09-13-2022 Urobilinogen Ql (U) Normal mg/dl Normal [facility] Vital Signs Date Time Vital Sign Value Performing Clinician Facility 03-13-2025 09:27-0500 Heart rate 66 /min Dr. Taylor Zuniga DO Work Phone: [facility] 03-13-2025 09:21-0500 Body temperature 99.1 [degF] Dr. Taylor Zuniga DO Work Phone: [facility] 03-13-2025 09:21-0500 Diastolic blood pressure 47 mm[Hg] Dr. Taylor Zuniga DO Work Phone: [facility] 03-13-2025 09:21-0500 Respiratory rate 15 /min Dr. Taylor Zuniga DO Work Phone: [facility] 03-13-2025 09:21-0500 SaO2% (BldA) [Mass fraction] 95 % Dr. Taylor Zuniga DO Work Phone: [facility] 03-13-2025 09:21-0500 Systolic blood pressure 120 mm[Hg] Dr. Taylor Zuniga DO Work Phone: [facility] 03-11-2025 13:54-0500 Body height [address] Taylor Zuniga DO Work Phone: [facility] 03-11-2025 13:54-0500 Body weight 68.[address] Taylor Zuniga DO Work Phone: [facility] 03-05-2025 16:00-0400 Body mass index (BMI) [Ratio] 23.6 kg/m2 Dr. Taylor Zuniga DO Work Phone: [facility] 02-24-2025 21:50-0400 Body temperature 98.3 [degF] Dr. Taylor Zuniga DO Work Phone: [facility] 02-24-2025 21:50-0400 Diastolic blood pressure 63 mm[Hg] Dr. Taylor Zuniga DO Work Phone: [facility] 02-24-2025 21:50-0400 Heart rate 68 /min Dr. aTylor Zuniga DO Work Phone: [facility] 02-24-2025 21:50-0400 Respiratory rate 18 /min Dr. Taylor Zuniga DO Work Phone: [facility] 02-24-2025 21:50-0400 SaO2% (BldA) [Mass fraction] 99 % Dr. Taylor Zuniga DO Work Phone: [facility] 02-24-2025 21:50-0400 Systolic blood pressure 189 mm[Hg] Dr. Taylor Zuniga DO Work Phone: [facility] 02-24-2025 17:04-0400 Body mass index (BMI) [Ratio] 24.5 kg/m2 Dr. Taylor Zuniga DO Work Phone: [facility] 02-24-2025 17:04-0400 Body weight 70.[address] Taylor Zuniga DO Work Phone: [facility] 12-17-2022 15:35-0400 Body height 177.8 cm [facility] 12-17-2022 15:35-0400 Body temperature 97.2 [degF] [facility] 12-17-2022 15:35-0400 Diastolic blood pressure 68 mm[Hg] [facility] 12-17-2022 15:35-0400 Heart rate 65 /min [facility] 12-17-2022 15:35-0400 Respiratory rate 18 /min [facility] 12-17-2022 15:35-0400 SaO2% (BldA) [Mass fraction] 98 % [facility] 12-17-2022 15:35-0400 Systolic blood pressure 167 mm[Hg] [facility] 12-15-2022 21:37-0400 Diastolic blood pressure 78 [...] Evaluation and management of inpatient Taylor Fast Facility:[facility] Start: 02-26-2025 End: 02-26-2025 Evaluation and management of inpatient [facility] Facility:[facility] Start: 02-24-2025 End: 03-05-2025 Evaluation and management of inpatient [facility] Facility:[facility] Start: 02-24-2025 ambulatory Taylor Fast Facility:[facility] Start: 02-24-2025 Non-patient / Non-visit Dr. Windy Jasso MD -[facility] Start: 02-24-2025 End: 02-24-2025 Emergency department patient visit Dr. Zee Alonso DO -Emergency Department Work Phone: Start: 12-18-2024 End: 12-18-[address] Taylor Zuniga DO Work Phone: -Laboratory Start: 12-18-2024 End: 12-18-[address] Taylor Zuniga DO -Laboratory Work Phone: Start: 12-18-2024 End: 12-18-2024 ambulatory Taylor Fast Facility:[facility] Start: 09-16-2024 End: 09-16-[address] Taylor Zuniga DO Work Phone: [facility] Work Phone: Start: 09-16-2024 End: 09-16-[address] Taylor Zuniga DO -Laboratory Work Phone: Start: 09-16-2024 End: 09-16-2024 ambulatory Taylor Fast Facility:[facility] Start: 06-19-2024 End: 06-19-[address] Taylor Zuniga DO -Laboratory Work Phone: Start: 06-19-2024 End: 06-19-2024 ambulatory Taylor Fast Facility:[facility] Start: 07-27-2023 End: 07-27-2023 ambulatory [facility] Work Phone: Start: 07-27-2023 End: 07-27-2023 Patient encounter procedure [facility]-Laboratory Work Phone: Start: 04-18-2023 End: 04-18-2023 ambulatory [facility] Work Phone: Start: 04-18-2023 End: 04-18-2023 Patient encounter procedure [facility]-Laboratory Work Phone: Start: 03-15-2023 End: 03-15-2023 ambulatory [facility] Work Phone: Start: 03-15-2023 End: 03-15-2023 Patient encounter procedure [facility]-Laboratory Work Phone: Start: 01-03-2023 End: 01-03-2023 ambulatory [facility] Work Phone: Start: 01-03-2023 End: 01-03-2023 Patient encounter procedure [facility]-Laboratory Work Phone: Start: 12-17-2022 End: 12-17-2022 Emergency department patient visit [facility]-Emergency Department Work Phone: Start: 12-15-2022 End: 12-25-2022 Home visit est pt mod-hi severity 40 minutes Taylor Fast DO Work Phone: [facility] Start: 09-13-2022 End: 10-04-2022 ambulatory [facility] Work Phone: Start: 09-13-2022 End: 10-04-2022 Discharged Recurring [facility]Home [facility] Start: 08-23-2022 End: 08-23-2022 [...] 02-24-[address] Taylor Zuniga [employer] Work Phone: Start: 02-24-2025 CT of thorax, abdome n and pelvis with contrast Dr. Taylor Zuniga DO Work Phone: Start: 12-18-2024 Vitamin D, 25-hydrox y measurement Dr. Taylor Zuniga [employer] Work Phone: Comment on above: Vitamin D [...] 3 Views Procedure Note: See Note; NOTES: [facility] Imaging Services [address] [place] [address] Lumbar Spine 2 or 3 Views MR#: [id number] Acct: [id number] Name: JEANIE RANKIN Rep #: [id number] : 1940 M 82 From: Paulie Licona MD PCP: Dr. Taylor Zuniga DO Status: REG ER Study: Lumbar Spine 2 or 3 Views Date of Exam: Exam# [id number] Ordering Dr: Tor Yadav MD STUDY: X-RAY [...] Taylor Zuniga DO; Dr. Tor Yadav MD Clearance Center Manager: Signed Taylor Zuniga DO Work Phone: Start: 12-17-2022 X-ray of lumbar spin e, two or three views Start: 12-17-2022 End: 12-17-2022 Emergency Department Summary Procedure Note: See Note; NOTES: [facility] Medical Records Department [address] [place] [address] Emergency Department Summary 12/17/22 MR#: [id number] Acct: [id number] Name: JEANIE RANKIN Rep #: [id number] : 1940 82 From: Tor Yadav MD [...] blood thinners, vomiting, feeling dazed or confused. [facility] <BENNETT Miranda - Last Filed: 12/17/22 18:48> [facility] Medical History Anemia CYST EXCISION RIGHT BREAST [...] Mild Itching Verified 12/17/22 15:35 [From Neosporin ([id number])] neomycin AdvReac Mild Itching Verified 12/17/22 15:35 [From Neosporin ([id number])] polymyxin B AdvReac Mild Itching Verified 12/17/22 15:35 [From Neosporin ([id number])] adhesive tape AdvReac Unknown Verified 12/17/22 15:35 [...] <BENNETT Miranda - Last Filed: 12/17/22 18:48> [facility] Narrative Medical decision making narrative: [...] Yadav MD - Last Filed: 12/17/22 16:06> [facility] Narrative Medical decision making narrative: [...] with epi Irrigated (ml): 100 Number of Sutures/Harman: 6 Suture Information: Ethilon (4-0) and Simple [...] 200 mg PO DAILY Primary Care Provider: Taylro Zuniga Referrals: Tee Pendleton MD [Non-Staff] - [...] your Primary Care Provider. Call [facility] ([phone]) or report to the closest Emergency Room. [...] Activity Detail Author Start: 03-12-2025 Wound care [facility] Start: 03-08-2025 End: 03-09-2025 [facility] Start: 03-06-2025 Verification routine [facility] Start: 03-06-2025 Development of care plan [facility] Start: 03-06-2025 Speech therapy management [facility] Start: 03-06-2025 Developing a treatment plan [facility] Start: 03-05-2025 Speech therapy assessment [facility] Start: 03-05-2025 Following clinical pathway protocol [facility] Start: 03-05-2025 Admission procedure [facility] Start: 03-05-2025 Introduction of urinary catheter [facility] Start: 03-05-2025 Measuring intake and output [facility] Start: 03-05-2025 End: 03-06-2025 Patient referral to dietitian [facility] Start: 03-05-2025 Referral for physical therapy [facility] Start: 03-05-2025 Referral to occupational therapist [facility] Start: 03-05-2025 Vital signs measurements [facility] Start: 03-05-2025 [facility] Start: 03-05-2025 Evaluation and management of inpatient [facility] Start: 02-24-2025 End: 02-24-2025 [facility] Start: 12-25-2022 Blood count complete auto&auto difrntl wbc CBC W/AUTO DIFF WBC (76379) [facility]; [facility] Work Phone: Start: 12-25-2022 25 hydroxy includes fractions if performed Vitamin D Hydroxy (77543) [facility]; [facility] Work Phone: Start: 12-25-2022 Hemoglobin glycosylated a1c HGB A1C (66527) [facility]; [facility] Work Phone: Start: 12-25-2022 Comprehensive metabolic panel METABOLIC PANEL, COMPREHENSIVE (50758) [facility]; [facility] Work Phone: Start: 12-25-2022 Procedure Education Eprescribed prescriptions (G8553) [facility]; [facility] Work Phone: Start: 12-17-2022 Smpl repair scalp/neck/ax/genit/trun k 2.6-7.5cm RPR S/N/AX/GEN/TRNK2.6-7.5C M [facility] Start: 08-22-2022 Natriuretic peptide BNTP (13165) [facility]; [facility] Work Phone: Start: 08-22-2022 Assay of prostate specific antigen total PSA (Medicare - G0103) (77965) [facility]; [facility] Work Phone: Start: 08-22-2022 Lipid panel LIPID PANEL (47436) [facility]; [facility] Work Phone: Start: 08-22-2022 25 hydroxy includes fractions if performed Vitamin D Hydroxy (53610) [facility]; [facility] Work Phone: Start: 08-22-2022 Cyanocobalamin vitamin b-12 VITAMIN B12 AND FOLATES (47640) [facility]; [facility] Work Phone: Start: 08-22-2022 Urine albumin quantitative MICROALBUMIN: CREATININE RATIO (84866) AND (77974) [facility]; [facility] Work Phone: Start: 08-22-2022 Urnls dip stick/tablet reagent auto microscopy URINALYSIS, W/ MICRO (19395) [facility]; [facility] Work Phone: Start: 08-22-2022 Assay of thyroid stimulating hormone tsh TSH (02065) [facility]; [facility] Work Phone: Start: 08-22-2022 Blood count complete auto&auto difrntl wbc CBC W/AUTO DIFF WBC (90224) [facility]; [facility] Work Phone: Start: 08-22-2022 Comprehensive metabolic panel METABOLIC PANEL, COMPREHENSIVE (47266) [facility]; [facility] Work Phone: Anion gap in Serum o r Plasma [facility] Anion gap in Serum o r Plasma [facility] Anion gap in Serum o r Plasma [facility] Anion gap in Serum o r Plasma [facility] Anion gap in Serum o r Plasma [facility] BUN/Creatinine ratio [facility] BUN/Creatinine ratio [facility] BUN/Creatinine ratio [facility] BUN/Creatinine ratio [facility] BUN/Creatinine ratio [facility] Calcium [Mass/volume ] in Serum or Plasma [facility] Calcium [Mass/volume ] in Serum or Plasma [facility] Calcium [Mass/volume ] in Serum or Plasma [facility] Calcium [Mass/volume ] in Serum or Plasma [facility] Calcium [Mass/volume ] in Serum or Plasma [facility] Carbon dioxide katalina nt measurement [facility] Carbon dioxide katalina nt measurement [facility] Carbon dioxide katalina nt measurement [facility] Carbon dioxide katalina nt measurement [facility] Carbon dioxide katalina nt measurement [facility] Creatinine [Mass/vol ume] in Serum or Plasma [facility] Creatinine [Mass/vol ume] in Serum or Plasma [facility] Creatinine [Mass/vol ume] in Serum or Plasma [facility] Creatinine [Mass/vol ume] in Serum or Plasma [facility] Creatinine [Mass/vol ume] in Serum or Plasma [facility] Erythrocyte mean corpuscular volume determination [facility] Erythrocyte mean corpuscular volume determination [facility] Erythrocyte mean corpuscular volume determination [facility] Erythrocyte mean corpuscular volume determination [facility] Erythrocyte mean corpuscular volume determination [facility] Glucose [Mass/volume ] in Serum or Plasma [facility] Glucose [Mass/volume ] in Serum or Plasma [facility] Glucose [Mass/volume ] in Serum or Plasma [facility] Glucose [Mass/volume ] in Serum or Plasma [facility] Glucose [Mass/volume ] in Serum or Plasma [facility] Hematocrit [Volume Fraction] of Blood [facility] Hematocrit [Volume Fraction] of Blood [facility] Hematocrit [Volume Fraction] of Blood [facility] Hematocrit [Volume Fraction] of Blood [facility] Hematocrit [Volume Fraction] of Blood [facility] Hemoglobin [Mass/vol ume] in Blood [facility] Hemoglobin [Mass/vol ume] in Blood [facility] Hemoglobin [Mass/vol ume] in Blood [facility] Hemoglobin [Mass/vol ume] in Blood [facility] Hemoglobin [Mass/vol ume] in Blood [facility] Leukocytes [#/volume ] in Blood [facility] Leukocytes [#/volume ] in Blood [facility] Leukocytes [#/volume ] in Blood [facility] Leukocytes [#/volume ] in Blood [facility] Leukocytes [#/volume ] in Blood [facility] Mean corpuscular hemoglobin concentration determination [facility] Mean corpuscular hemoglobin concentration determination [facility] Mean corpuscular hemoglobin concentration determination [facility] Mean corpuscular hemoglobin concentration determination [facility] Mean corpuscular hemoglobin concentration determination [facility] Mean corpuscular hemoglobin determination [facility] Mean corpuscular hemoglobin determination [facility] Mean corpuscular hemoglobin determination [facility] Mean corpuscular hemoglobin determination [facility] Mean corpuscular hemoglobin determination [facility] Measurement of renal function [facility] Measurement of renal function [facility] Measurement of renal function [facility] Measurement of renal function [facility] Measurement of renal function [facility] Neutrophil count [facility] Neutrophil count [facility] Neutrophil count [facility] Neutrophil count [facility] Neutrophil count [facility] Neutrophil percent differential count [facility] Neutrophil percent differential count [facility] Neutrophil percent differential count [facility] Neutrophil percent differential count [facility] Neutrophil percent differential count [facility] Patient Education ED Head Injury (Adult) ED Laceration Scalp Stitches or [place] [facility] Work Phone: Patient referral [facility] Work Phone: Platelets [#/volume] in Blood [facility] Platelets [#/volume] in Blood [facility] Platelets [#/volume] in Blood [facility] Platelets [#/volume] in Blood [facility] Platelets [#/volume] in Blood [facility] Potassium measurement [facility] Potassium measurement [facility] Potassium measurement [facility] Potassium measurement [facility] Potassium measurement [facility] Red blood cell count [facility] Red blood cell count [facility] Red blood cell count [facility] Red blood cell count [facility] Red blood cell count [facility] Red cell distributio n width determination [facility] Red cell distributio n width determination [facility] Red cell distributio n width determination [facility] Red cell distributio n width determination [facility] Red cell distributio n width determination [facility] Serum chloride measurement [facility] Serum chloride measurement [facility] Serum chloride measurement [facility] Serum chloride measurement [facility] Serum chloride measurement [facility] Sodium measurement [facility] Sodium measurement [facility] Sodium measurement [facility] Sodium measurement [facility] Sodium measurement [facility] Urea nitrogen [Mass/volume] in Serum or Plasma [facility] Urea nitrogen [Mass/volume] in Serum or Plasma [facility] Urea nitrogen [Mass/volume] in Serum or Plasma [facility] Urea nitrogen [Mass/volume] in Serum or Plasma [facility] Urea nitrogen [Mass/volume] in Serum or Plasma [facility]; [facility] Work Phone: Immunizations Immunization Date Immunization Notes Care Provider Fa elsie 12-17-2022 tetanus toxoid, redu jonathan diphtheria toxoid, and acellular pertussis vaccine, adsorbed [facility] 03-29-2016 tetanus and diphther ia toxoids, adsorbed, preservative free, for adult use (2 Lf of tetanus toxoid and 2 Lf of diphtheria toxoid) [facility] Payers Date Payer Category Payer Self-pay [id number] 2022 Private Health Insurance [facility] [id number] 2011 Unknown [id number] 2003 Medicare [id number] 1940 Unknown [id number] 2.16.84 [id number] Unknown Unknown [id number] 2.16.8 [id number] Unknown [id number] 2.16.8 [id number] Unknown [id number] 2.16.8 [id number] Unknown [id number] 2.16.8 [id number] Unknown [id number] 2.16.8 [id number] Unknown [id number] 2.16.8 [id number] Social History Date Type Detail Facility Current Household Members Current Household Members [facility]; [facility] Work Phone: 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 none but 2 children adopted daughter and son - Start: 12-04-2018 End: 12-17-2022 Tobacco smoking status OHIS Unknown if ever smoked [facility] Start: 1940 Sex Assigned At Male W [facility] Start: 02-01-2024 End: 03-05-2025 Tobacco smoking status NHIS Never smoked tobacco (finding) [facility] Sex Male [facility] Goals Date Patient Goal Desired Activity /State Functional Status Date Assessment Result Facility 03-13-2025 Functional status Lift Assist Si t to Stand Lift [facility] Work Phone: 03-12-2025 Functional status Activity Abili ty With Assist of 2 [facility] Work Phone: Mental Status Date Assessment Result Facility 03-12-2025 Cognitive function Voice/Name [facility] Work Phone: 03-11-2025 Cognitive function Appropriate [facility] Work Phone: Clinical Notes 12-17-2022 to 03-05-2025 Note Date & Type Note Facility 03-05-2025 Note [facility] Medical Records Department [address] [place] [address] History Physical Exam 03/05/251811 MR#: [id number] Acct: [id number] Name: JEANIE RANKIN Rep #: [id number] : 1940 84 From: Rey Henao MD PCP: Dr. Taylor Zuniga, DO Status:ADM IN Location: [facility] - General General Date of Admission: 03/05/25 Date of Service: 02/26/25 Chief Complaint: Here for rehabilitation. HPI Narrative JEANIE RANKIN, is a 84 Male who presents with followin02/25/2025 Admit [facility]. Abdominal pain, nausea, vomiting for 3 [...] strengthening, prior to discharge home with . [facility] Medical History (Updated 03/05/25 @ 18:21 by [...] Neosporin AdvReac Mild Itching Verified 02/24/25 17:08 (jul-[id number])) neomycin (From Neosporin AdvReac Mild Itching Verified 02/24/25 17:08 (bta-tjm-zvogv)) polymyxin B (From Neosporin AdvReac Mild Itching Verified 02/24/25 17:08 (zku-rjg-ahjje)) adhesive tape AdvReac Unknown Verified 02/24/25 17:08 [...] ideation Vital Signs (more content not included)... [facility] 03-05-2025 Note HNO ID: [id number] Author: MAGDA SQUIRES DO Service: Hospital Medicine Author Type: Physician Type: Progress Notes Filed: 03/05/2025 16:43 Note Text: INPATIENT PROGRESS NOTE DEPARTMENT OF HOSPITAL MEDICINE SERVICE DATE: 03/04/2025 NIGHT AND WEEKEND COVERAGE: From 7am - 7pm, please call Sound Attending After 7pm, please call cross cover pager #[phone] Subjective No acute events overnight. Underwent procedure [...] [facility] 03-05-2025 Note HNO ID: [id number] Author: HARLAN ANDREW, PRASANTH Service: Care Management Author Type: Registered Nurse Type: Care Mgt Progress Note Filed: 03/05/2025 12:42 Note Text: CARE MANAGEMENT PROGRESS NOTE SERVICE DATE: 03/05/2025 SERVICE TIME: 12:29 PM LOS: 8 days Post-Acute Discharge Planning Patient Goal(s): Better appetite, Better mobility [place] of Choice Explained: Discharge Planning Participant(s): Patient, Spouse/significant other Patient/Family Comments: Anticipated # of Days Until Discharge: 0 Transport at Discharge: Transportation Arrangements: Ambulance Transportation Agency and Phone #:: [facility] [phone] / [phone] Date of Trip: 03/05/25 Time of Trip: 1400 Type of Service: BLS Non-emergency Is Patient Medicaid Pending?: No Was transportation financial coverage discussed with family?: Patient Extrusion Technician Location: [facility] Destination: [facility] Financial Care Management Responsibility: None Needs Prior to Discharge: Needs Prior to Discharge: None, Ready for Discharge IMM Follow Up Copy Given: Yes Copy given to:: Patient Method: In Person Post-Acute Discharge Plan: Plan discharge to [facility] today at 2pm. Patient and spouse in agreement with plan. RN to call report and send AVS in envelope provided. SIGNATURE: Harlan Andrew RN PATIENT NAME: Jeanie Rankin DATE: March 05, 2025 TIME: 12:29 PM [facility] 03-05-2025 Note HNO ID: [id number] Author: BLAINE CASIANO MD Service: Care Management [...] [facility] 03-05-2025 Note HNO ID: [id number] Author: BLAINE CASIANO MD Service: General Surgery [...] Agree with below. Patient is POD1 from [facility]. Patient reports improvement of symptoms and able [...] questions or concerns Mon-Sun 6a-5p please page [phone]. After 5pm and on Weekends and Holidays, please page [phone] if in ICU or [phone] if on [...] 0659 03/05/25 07 - 03/06/25 0659 Shift 8351-3047 4229-3482 6211-8849 24 Hour Total 2824-2032 0592-1287 7089-2965 24 Hour Total INTAKE IV 2400 2400 [...] [facility] 03-05-2025 Note HNO ID: [id number] Author: NGUYEN NASH MD Service: General Surgery [...] Nguyen Nash MD General Surgery PGY-1 March 05774201:[id number] AM [facility] 03-04-2025 Note HNO ID: [id number] Author: MAGDA SQUIRES DO Service: Hospital Medicine Author Type: Physician Type: Progress Notes Filed: 03/05/2025 16:43 Note Text: INPATIENT PROGRESS NOTE DEPARTMENT OF HOSPITAL MEDICINE SERVICE DATE: 03/04/2025 NIGHT AND WEEKEND COVERAGE: From 7am - 7pm, please call Sound Attending After 7pm, please call cross cover pager #[phone] Subjective No acute events overnight. Has been [...] [facility] 03-04-2025 Note HNO ID: [id number] Author: GABBY CHEN APRN.CRNA Service: Nursing Author Type: Nurse Rn Document Improvement Type: Anesthesia Procedure Notes Filed: 03/04/2025 15:50 Note Text: ANESTHESIOLOGY PROCEDURE NOTE Airway General Information Procedure Start Time/Medication Administration: 03/04/2025 3:18 PM Procedure End Time: 03/04/2025 3:18 PM Patient location during procedure: OR Patient identity confirmed: arm band and patient Staffing Anesthesiologist: Naya Aguilera MD CHEESE PRODUCTION SUPERVISOR: Gabby Chen APRN.CHEESE PRODUCTION SUPERVISOR Performed by: MARLY Indications and Patient Condition [...] March 04, 2025 TIME: 3:49 PM CSN: [id number] [facility] 03-04-2025 Note HNO ID: [id number] Author: AYAZ MERINO LISW Service: Care Management Author Type: Tab Builder Type: Care Mgt Progress Note Filed: 03/04/2025 14:09 Note Text: CARE MANAGEMENT PROGRESS NOTE SERVICE DATE: 03/04/2025 SERVICE TIME: 11:05 AM LOS: 7 days Patient on the schedule for surgery today for hernia repair. Plan is [place] [facility] once medically ready and bed available. [...] [facility] 03-04-2025 Note HNO ID: [id number] Author: ANNE STUBBS DO Service: General Surgery [...] and on Weekends and Holidays, please page [phone]. SUBJECTIVE: Doing well. Tolerated protein shakes yesterday. [...] 0659 03/04/25 0700 - 03/05/25 0659 Shift 4875-1487 9240-2456 7044-8463 24 Hour Total 8579-2562 4902-4699 9075-4308 24 Hour Total INTAKE PO 120 120 PO 120 120 Shift Total 120 120 OUTPUT Urine 386 656 9658 Void (ml) 106 117 4519 Urine Not Saved. 1 x 1 x # of BMs Stool Incontinence 1 x 1 x Number of BMs 0 x 0 x Shift Total 546 081 7641 Weight (kg) 64.2 64.2 64.2 64.2 64.2 [...] [facility] 03-03-2025 Note HNO ID: [id number] Author: KAREEM PEREZ DO Service: Hospital Medicine Author Type: Physician Type: Progress Notes Filed: 03/03/2025 12:06 Note Text: DEPARTMENT OF HOSPITAL MEDICINE PROGRESS NOTE SERVICE DATE: March 03, 2025 SERVICE TIME: 12:02 PM Hospital Medicine/Primary Attending: KAREEM PEREZ DO, DO NIGHT AND WEEKEND COVERAGE: After 7pm please page [phone] INTERVAL HPI: Follow up GOO NG remains [...] [facility] 03-03-2025 Note HNO ID: [id number] Author: BLAINE CASIANO MD Service: General Surgery [...] and on Weekends and Holidays, please page [phone] if in ICU or [phone] if on RNF. SUBJECTIVE: Pt tolerated PPN [...] 03/02/25699 - 03/03/2565803/03/25699 - 03/04/25 0659 Shift 0506-2817 7527-8110 1816-1789 24 Hour Total 7400-3849 8435-8486 3079-7258 24 Hour Total INTAKE PO 100 100 [...] [facility] 03-02-2025 Note HNO ID: [id number] Author: HARLAN ANDREW RN Service: Care Management Author Type: Registered Nurse Type: Care Mgt Progress Note Filed: 03/02/2025 15:39 Note Text: CARE MANAGEMENT PROGRESS NOTE SERVICE DATE: 03/02/2025 SERVICE TIME: 3:38 PM LOS: 5 days [facility] accepted. Patient and spouse informed. Plan discharge to [place] when medically stable. Sx planned for 03/04. . SIGNATURE: Harlan Andrew RN PATIENT NAME: Jeanie Rankin DATE: March 02, 2025 TIME: 3:38 PM [facility] 03-02-2025 Note HNO ID: [id number] Author: KAREEM PEREZ DO Service: Hospital Medicine Author Type: Physician Type: Progress Notes Filed: 03/02/2025 11:55 Note Text: DEPARTMENT OF HOSPITAL MEDICINE PROGRESS NOTE SERVICE DATE: March 02, 2025 SERVICE TIME: 11:50 AM Hospital Medicine/Primary Attending: KAREEM PEREZ DO, DO NIGHT AND WEEKEND COVERAGE: After 7pm please page [phone] INTERVAL HPI: Follow up GOO NG remains [...] [facility] 03-02-2025 Note HNO ID: [id number] Author: BLAINE CASIANO MD Service: General Surgery [...] questions or concerns Mon-Sun 6a-5p please page [phone]. After 5pm and on Weekends and Holidays, please page [phone] if in ICU or [phone] if on RNF. SUBJECTIVE: DAVIS. Continues to [...] 0659 03/02/25 07 - 03/03/25 0659 Shift 6574-6511 5126-8494 8073-6693 24 Hour Total 1602-1501 9166-0365 8106-1669 24 Hour Total INTAKE Shift Total OUTPUT [...] [facility] 03-01-2025 Note HNO ID: [id number] Author: GLADIS REES, RN Service: Care Management Author Type: Registered Nurse Type: Care Mgt Progress Note Filed: 03/01/2025 12:24 Note Text: CARE MANAGEMENT PROGRESS NOTE SERVICE DATE: 03/01/2025 SERVICE TIME: 12:21 PM LOS: 4 days [place] of Choice Given: Yes Level of Care Discussed: [facility] Facility Financial Disclosure Provided: Yes Financial Disclosure Comments: [facility] connected care Provider List: [facility] Facility Provider list within the patient's requested geographic area shared with the patient/family: Yes within: 10 miles of zip code: [address] Quality and resource use metrics shared with [...] agreeable and referral sent to [facility]. Advised to review list if needed for alternate SNF choices. Will need accepting SNF and cot transport. No precert needed. CM to follow for transitional care planning. SIGNATURE: Gladis Rees RN PATIENT NAME: Jeanie Rankin DATE: March 01, 2025 TIME: 12:21 PM [facility] 03-01-2025 Note HNO ID: [id number] Author: FARIBA BOLAÑOS MD Service: Hospital Medicine Author Type: Physician Type: Progress Notes Filed: 03/01/2025 12:00 Note Text: DEPARTMENT OF HOSPITAL MEDICINE PROGRESS NOTE SERVICE DATE: March 01, 2025 SERVICE TIME: 11:56 AM Hospital Medicine/Primary Attending: Fariba Bolaños NIGHT AND WEEKEND COVERAGE: After 7pm please page [phone] INTERVAL HPI: Follow up GOO Pt s/p [...] [facility] 02-28-2025 Note HNO ID: [id number] Author: FARIBA BOLAÑOS MD Service: Hospital Medicine Author Type: Physician Type: Progress Notes Filed: 02/28/2025 13:02 Note Text: DEPARTMENT OF HOSPITAL MEDICINE PROGRESS NOTE SERVICE DATE: February 28, 2025 SERVICE TIME: 12:58 PM Hospital Medicine/Primary Attending: Fariba Bolaños NIGHT AND WEEKEND COVERAGE: After 7pm please page [phone] INTERVAL HPI: Follow up GOO Pt s/p [...] echocardiographic exam for comparison. Electronically signed by Merus Sonal (more content not included)... [facility] 02-28-2025 Note HNO ID: [id number] Author: PETRONA ALBRECHT MD Service: General Surgery [...] questions or concerns Mon-Fri 6a-5p please page [phone]. After 5pm and on Weekends and Holidays, please page [phone] if in ICU or [phone] if on RNF. SUBJECTIVE: NAEON. Jeanie says [...] 0659 02/28/25 07 - 03/01/25 0659 Shift 4007-0441 3141-0664 5858-1398 24 Hour Total 1824-5332 8969-9299 9031-0142 24 Hour Total INTAKE Shift Total OUTPUT [...] [facility] 02-27-2025 Note HNO ID: [id number] Author: KAREEM PEREZ DO Service: Hospital Medicine Author Type: Physician Type: Progress Notes Filed: 02/27/2025 15:55 Note Text: DEPARTMENT OF HOSPITAL MEDICINE PROGRESS NOTE SERVICE DATE: February 27, 2025 SERVICE TIME: 3:41 PM Hospital Medicine/Primary Attending: KAREEM PEREZ DO, DO NIGHT AND WEEKEND COVERAGE: After 7pm please page [phone] INTERVAL HPI: Follow up GOO Pt s/p [...] [facility] 02-27-2025 Note HNO ID: [id number] Author: HARLAN ANDREW RN Service: Care Management [...] [facility] 02-27-2025 Note HNO ID: [id number] Author: HARLAN ANDREW RN Service: Care Management [...] [facility] 02-27-2025 Note HNO ID: [id number] Author: GIOVANNI MCCOY RT(R) Service: Nuclear Medicine [...] PATIENT PRESENTS WITH AN IMPLANTABLE OR ATTACHED CRUSHER AND BLENDER OPERATOR: No CREATININE: Creatinine Date Value Ref [...] No IV SITE: Inpatient - refer to [facility] documentation POST EXAM PIV STATUS: Left in for next appointment PROCEDURE TYPE: NM Stress: 12.9mCi [id number] was administered IV for Rest Imaging at 745 by ty. 35.8 mCi Er52n-Mmiqdjy was administered IV for Stress Imaging at 900 by ty. ADMINISTRATION TIME: 745 PATIENT DISCHARGED TO: Patient taken to IP transport area for return to RNF/ICU/ED. Is this a therapy: No A Diagnostic radioactive procedure has taken place, with no further precautions necessary other than routine body substance precautions. More information regarding radiation safety can be found using this link: [email or web address] -[email or web address] 20Diagnostic%20Nuclear%20Medicine%20Pro cedures.pdf SIGNATURE: RT Anmol(R) PATIENT NAME: Jeanie Rankin DATE: February 27, 2025 TIME: 9:13 AM PAGER/CONTACT #: [facility] 02-27-2025 Note HNO ID: [id number] Author: MUSHTAQ STOREY RN Service: Nursing Author Type: Registered Nurse Type: Nursing Progress Note Filed: 02/27/2025 08:46 Note Text: Lexiscan Nuclear Stress Test discussed with patient, voiced understanding. [facility] 02-27-2025 Note HNO ID: [id number] Author: JULY KENT APRN.CNP Service: Gastroenterology Author [...] [facility] 02-26-2025 Note HNO ID: [id number] Author: KAREEM PEREZ DO Service: Hospital Medicine Author Type: Physician Type: Progress Notes Filed: 02/26/2025 14:58 Note Text: DEPARTMENT OF HOSPITAL MEDICINE PROGRESS NOTE SERVICE DATE: February 26, 2025 SERVICE TIME: 2:51 PM Hospital Medicine/Primary Attending: KAREEM PEREZ DO, DO NIGHT AND WEEKEND COVERAGE: After 7pm please page [phone] INTERVAL HPI: Follow up GOO Pt s/p [...] anticoag therapy (fl,oh) 02/25/25614 pneumatic compression sleeve(s) (de,oh) 02/25/25614 activity - mobilize patient (de,hi) SIGNATURE: KAREEM PEREZ DO, DO PATIENT NAME: Jeanie Rankin DATE: February 26, 2025 TIME: 2:51 PM PAGER/CONTACT #: Team color pager Disclaimer: Portions of this note may have been generated using Wanderu voice recognition software. Reaso (more content not included)... [facility] 02-26-2025 Note HNO ID: [id number] Author: BERENICE THOMPSON APRN.CRNA Service: Anesthesiology Author Type: Nurse Rn Document Improvement Type: Anesthesia Procedure Notes Filed: 02/26/2025 11:23 Note Text: ANESTHESIOLOGY PROCEDURE NOTE Airway General Information Procedure Start Time/Medication Administration: 02/26/2025 11:10 AM Procedure End Time: 02/26/2025 11:11 AM Patient location during procedure: OR Timeout Performed Pre-procedure: timeout performed Consent Obtained: Yes Patient identity confirmed: arm band Staffing CHEESE PRODUCTION SUPERVISOR: Berenice Thompson APRN.CHEESE PRODUCTION SUPERVISOR Performed by: MARLY Indications and Patient Condition [...] February 26, 2025 TIME: 11:22 AM CSN: [id number] [facility] 02-25-2025 Note HNO ID: [id number] Author: RONALDO YI PA-C Service: Hospital Medicine Author Type: Physician Commodity Buyer Type: Plan of Care Filed: 02/25/2025 23:20 [...] [facility] 02-25-2025 Note HNO ID: [id number] Author: AYAZ MERINO LISW Service: Care Management Author Type: Tab Builder Type: Care Mgt Initial Assessment Filed: 02/25/2025 [...] Current Advance Directive: Health Care Power of Horse Race Starter, Living Will In Chart: Yes Up To [...] lift) Discharge Planning Patient Goal(s): General wellness [place] of Choice Explained: [place] of Choice Given: No Reason Not Given: [...] [facility] 02-25-2025 Note HNO ID: [id number] Author: KAREEM PEREZ DO Service: Hospital Medicine Author Type: Physician Type: Plan of Care Filed: 02/25/2025 13:37 Note Text: Pt admitted early this am by Bone Crusher team for GOO, with NG in place. [...] [facility] 02-25-2025 Note HNO ID: [id number] Author: MORALES GARCIA, RN Service: Nursing Author Type: Registered Nurse Type: Nursing Progress Note Filed: 02/25/2025 08:09 Note Text: Code status addressed with Dr Perez. DNR signed in chart [facility] 02-24-2025 Consult note [facility] 02-24-2025 Discharge summary [facility] 02-24-2025 Radiology Diagnostic study note [facility] [address] [place], [place] [address] Abdomen/Pelvis without Cont MR#: [id number] Acct: [id number] Name: JEANIE RANKIN Rep #: [id number] : 1940 M 84 From: [facility] jessica Richards MD PCP: Dr. Taylor Zuniga, DO Status: REG ER Study:Abdomen/Pelvis without Cont Date of Exa m: 02/24/25 Exam# [id number] Ordering Dr: Maya Alonso mus DO PROCEDURE: [...] exam. No other acute findings. Reading Location: [id number] CC: Dr. Taylor Zuniga DO; Dr. Zee Alonso DO ~ Clearance Center Manager: Signed [facility] 02-24-2025 Consult note Note Date/Time February 24, 2025 11:26pm [facility] Medical Records Department [address] [place] [address] Consultation - Surgical 02/24/25 190 MR#: [id number] Acct: [id number] Name: JEANIE RANKIN Rep #:[id number] : 1940 84 From: Windy Jasso [...] tertiary care . Windy Jasso M.D. Pager: [phone] [facility] [address] [place] [address], Outpatient [facility], [address] [place] [address] Office: [phone] HPI Consult Data Date of Consult: 02/25/25 [...] body distended with fluid and air-read pending [facility] Medical History (Updated 02/24/25 @ 21:43 by [...] Neosporin AdvReac Mild Itching Verified 02/24/25 17:08 ([id number])) neomycin (From Neosporin AdvReac Mild Itching Verified 02/24/25 17:08 (aaj-xin-[id number])) polymyxin B (From Neosporin AdvReac Mild Itching Verified 02/24/25 17:08 (voo-sfc-dieum)) adhesive tape AdvReac Unknown Verified 02/24/25 17:08 [...] 86.5 H, Lymph % (Auto) 4.6 L, [place] % (Auto) 8.4, Eos % (Auto) 0.0, [...] Charges/Coding Visit Charges Office Visits / Consults: 73871 ED Visit; High/Urgent Severity Multi Select Codes Visit Charges Office Visit/Consults: 17759 ED Visit; High/Urgent Severity 02/25/25 1330 <Electronically signed by Windy Jasso MD> Cosigner Signature (if applicable): CC: Dr. Taylor Zuniga, DO~ Signed [facility] Work Phone: 1(963) 377-294410-21-2025 Radiology Diagnostic study note [facility] Imaging Services [address] [place], [place] [address] CT Chest, Abd, Pel w/Contrast MR#: [id number] Acct: [id number] Name: JEANIE RANKIN Rep #: [id number] : 1940 M 84 From: Jay Pereyra MD PCP: Dr. Taylor Zuniga DO Status: REG ER Study:CT Chest, Abd, Pel w/Contrast Date of E xam: 02/24/25 Exam# [id number] Ordering Dr: Maya Alonso DO PROCEDURE: CT [...] belowthe diaphragm. Gastric decompression recommended. [facility] CC: Dr. Taylor Zuniga DO; Dr. Zee Alonso DO ~ Clearance Center Manager: Signed [facility]10-21-2025 Radiology Diagnostic study note [facility] Imaging Services [address] [place] [address] Abdomen Single View (Portable) MR#: [id number] Acct: [id number] Name: JEANIE RANKIN Rep #: [id number] 1 : 1940 M 84 From: Dannie Richards MD PCP: Dr. Taylor Zuniga DO Status: REG ER Study:Abdomen Single View (Portable) Date of Exam: 02/24/25 Exam# [id number] Ordering Dr: Maya Alonso DO PROCEDURE: ABDOMEN [...] Zuniga DO; Dr. Zee Alonso DO ~ Clearance Center Manager: Signed [facility]10-21-2025 Discharge summary Author Zee Alonso [facility] Note Date/Time February 24, 2025 1 1:26pm [facility] Medical Records Department [address] [place] [address] Emergency Department Summary 02/24/25 MR#: [id number] Acct: [id number] Name: JEANIE RANKIN Rep #:[id number] : 1940 84 From: Zee Alonso [...] blood in hisstool or black tarry stool. [facility] Medical History (Updated 02/24/25 @ 21:43 [...] Neosporin AdvReac Mild Itching Verified 02/24/25 17:08 ([id number]-ffy-[id number])) neomycin (From Neosporin AdvReac Mild Itching Verified 02/24/25 17:08 (uyh-cxa-trbrr)) polymyxin B (From Neosporin AdvReac Mild Itching Verified 02/24/25 17:08 (xia-tkp-grtql)) adhesive tape AdvReac Unknown Verified 02/24/25 17:08 [...] care. Family would like to go to [facility]. I discussed case with [facility] transfer line who discussed the case [...] 86.5 H Lymph % (Auto) 4.6 L [place] % (Auto) 8.4 Eos % (Auto) 0.0 [...] belowthe diaphragm. Gastric decompression recommended. Reading Location: [facility] X-Ray 02/24/25 18:25 IMPRESSION: Enteric tube terminates appropriately within the stomach. Reading Location: [facility] Abdomen/Pelvis CT 02/24/25 20:30 IMPRESSION: Redemonstrated moderate-large hiatal hernia which contains a herniated short- segment of the proximal duodenum, which is at risk for obstruction. Decreased distention of the stomach and herniated duodenal segment post enteric tube placement since prior exam. No other acute findings. Reading Location: [facility] Critical Care Time Critical care time (excluding procedures): 30-74 minutes, Including time spent:,Discussing w/Patient &/or Family/Plastic Mixer, Discussing w/Consultants, ArrangingAdmission or Transfer, Performing Direct [...] [Primary Care Provider, Internal Medicine] Print Language: Turkmen Disposition Disposition: DC/Tx to Another Type of HCF What to do if you have Problems For any increased pain, shortness of breath, bleeding, nausea or vomiting, chestpain, or any unexpected problems, contact your Primary Care Provider. Call [facility] ([phone]) or report to the closest Emergency Room. Call 911 if necessary. 02/24/25 6687 <Electronically signed by Zee Alonso DO> Cosigner Signature (if applicable): CC: Dr. Taylor Zuniga, DO ~ Signed [facility] Work Phone: 1(789) 279-494008-13-2023 Hospital Discharge instructions Additional Instructions Please follow-up with your PCP. Please have sutures removed in 10 to 14 days and return for any worsening of your symptoms.[facility] Work Phone: Evaluation noteNo assessment information available [facility] Work Phone: Evaluation note* Diagnosis Onset Date [...] outlet obstruction inactive March 05, 2025 3:52pm [facility] Work Phone: Instructions* Name Dates Details Patient [...] for referral (narrative)No reason for referral [facility] Work Phone: Summary Purpose Family History No [...] March 29, 2 016 4:25pm Power of Horse Race Starter Yes March 29, 2016 4:25pm Advance Directive Response Recorded Date/ Time Name of Medical Power of Horse Race Starter present December 17, 2022 3:39pm Advance Directives Yes March 4:25pm Living Will Yes December 17 3:39pm Power of Horse Race Starter Yes December 17, 2 023 3:39pm Advance Directive Response Recorded Date/ Time Advance Directives Yes March 3:25pm Living Will Yes December 17 2:39pm Power of Horse Race Starter Yes December 17, 2 023 2:39pm Name of Medical Power of Horse Race Starter present December 17, 2022 2:39pm Advance Directive Response Recorded Date/ Time Advance Directives Yes March 4:25pm Living Will Yes December 17 3:39pm Power of Horse Race Starter Yes December 17, 2 023 3:39pm Advance Directive Response Recorded Date/ Time Advance Directives Yes March 3:25pm Living Will Yes December 17 2:39pm Power of Horse Race Starter Yes December 17, 2 023 2:39pm Advance Directive Response Recorded Date/ Time Advance Directives Yes March 4:25pm Advance Directive Response Recorded Date/ Time Do you have a Healthcare Pow er of Horse Race Starter? Yes February 24, 2025 4:08pm Do you have a Healthcare Pow er of Horse Race Starter? Yes March 06, 2025 12:49pm Name of Medical Power of Horse Race Starter Jeni Rankin, March 06, 2025 12:49pm Advance Directives Yes March 3:25pm Chief Complaint and Reason for Visit Chief Complaint VENOUS INSUFFICIENCY , CELLULITIS, NONPRESSURE CENTRIFUGAL SCREEN TENDER Chief Complaint VENOUS INSUFFICIENCY , CELLULITIS, NONPRESSURE CENTRIFUGAL SCREEN TENDER fall, head injury, laceration Chief Complaint VENOUS INSUFFICIENCY , CELLULITIS, NONPRESSURE CENTRIFUGAL SCREEN TENDER fall, head injury, laceration HOME DRAW LAB [...] DATE CREATED AUTHOR AUTHOR'S ORGANIZ ATION 03/13/2025 [facility] DATE CREATED AUTHOR AUTHOR'S ORGANIZ ATION 03/20/2025 [facility] Care Teams (unrecognized sec tion and [...] BE BASED ON THE PRIMARY CLINICAL RECORDS. [facility]. provides no warranty or guarantee of the accuracy or completeness of information in this document.
[2025-04-29 08:34] LABS: Hematocrit 31.6 % (40-54); Hemoglobin 11.1 g/dL (13.0-16.5); Mean Corp Hgb Conc 35.1 g/dL (32-36); Mean Corpuscular Volume 93.2 fL (80-94); Mean Platelet Vol. 10.8 fl (6.2-12.0); Platelet Count 223 K/mm3 (150-450); RBC Distribution Width CV 13.7 % (11.6-14.6); RBC Distribution Width SD 46.2 fl (35.1-43.9); Red Blood Count 3.39 M/mm3 (4.6-6.2); White Blood Count 7.5 K/mm3 (4.4-11.0)
[2025-04-29 08:51] LABS: AST(SGOT) 20 U/L (<=37); Alanine Aminotransfer ALT/SGPT 7 U/L (<=46); Albumin, Serum 3.3 g/dL (3.4-4.8); Alkaline Phosphatase 46 U/L (40-129); Anion Gap 11 (7-18); BUN 22 mg/dL (4-19); BUN/Creat Ratio 34.8 RATIO (10-20); Calcium,Total 9.3 mg/dL (7.6-11.0); Carbon Dioxide 24.7 mmol/L (20.0-29.0); Chloride 99 mmol/L (96-106); Globulin 2.8 g/dL (2.2-4.2); Glucose 103 mg/dL (70-99); Potassium 4.3 mmol/L (3.5-5.1)
== END ==
LOC: OLS.ACH 04:00
PROVIDERS: PCP Internal Medicine; Referring Provider Internal Medicine; Visit Provider Internal Medicine
DX: I10 Essential (primary) hypertension (principal); R10.9 Unspecified abdominal pain
CPT/HCPCS: 36415; 80053; 85027

== ENCOUNTER → 2025-04-30 19:30 | Outpatient (REF) | payer MEDICARE, OTHER, SELFPAY ==
--- OUTSIDE RECORDS SUMMARY | 2025-05-01 07:51 | XMS RPT_ITS | CCD ---
Author Organization [facility] Care Team Providers Care Orthopedics Pediatric Physician Name Role Phone Fast DO, Taylor A Attending Unavailable Fast DO, Taylor A Consulting Unavailable Fast DO, Taylor A Unavailable Manchak CELLULAR EQUIPMENT REPAIRER, Tere Unavailable Unavailable Unavailable Unavailable Fast DO, [...] Physician Ungdayanara CANELA, Dr. Koch Attending Physician [phone] Gavin CANELA, Dr. Koch Emergency Department Physici [...] Unavailable Fast, Taylor Primary Care Unavailable Fast, Talyor Attending Unavailable Fast, Taylor Primary Care Unavailable [...] tape] Propensity to adverse reactions 9 Unknown [facility] (9 sources) Bacitracin Drug Allergy 9 Itching [facility] (9 sources) Neomycin Drug Allergy 9 Itching [facility] (9 sources) Polymyxin B Drug Allergy 9 Itching [facility] (1 source) Adhesive agent; Translations: [ADHESIVE] Propensity to adverse reactions to drug (disorder) 9 [facility] (1 source) NEOMYCIN-BACITR ACIN-POLYMYXIN; Translations: [NEOMYCIN-BACIT RACIN-POLYMYXIN ] Propensity to adverse reactions to drug (disorder) 6 [facility] (1 source) Bacitracin Drug Allergy 5 [facility] (1 source) Neomycin Drug Allergy 5 [facility] (1 source) polymyxin B Drug allergy (disorder) 5 [facility] Medications Current Medications Medication Drug Class(es) Dates Sig (Normalized) Sig (Original) aspirin 81 mg chewable tablet (1 source) Platelet Aggregation Inhibitor, Nonsteroidal Anti-inflammatory Drug Start: 03-05-2025 Aspirin 81 mg tablet,chewable Active 1 {tbl} PO DAILY March 04, 2025 11:00pm [facility] Complies with drug therapy Start: 03-05-2025 Aspirin 81 mg tablet,chewable Active 1 {tbl} PO DAILY March 04, 2025 11:00pm [facility] Complies with drug therapy cetirizine hydrochloride 10 [...] therapy Start: 07-31-2016 take 1000 [IU] by [facility] once daily Cholecalciferol (Vitamin D3) 1000 U Active 1000 U PO DAILY July 31, 2016 12:00am supplement take 1 tablet by [facility] daily Vitamin D3 125 mcg [...] therapy Start: 02-12-2023 take 2 tablets by [facility] once daily lisinopriL 5 mg oral tablet 2 (two) tablet qd for 90 days Quantity: 180 {Tablet} Refills: 3 Ordered: 12-Feb-2023 Fast DO, Taylor A Fast DO, Taylor A Start : 12-Feb-2023 Active Comments: he has dysphagia and doesnt want the larger pill Start: 01-15-2023 take 2 tablets by [facility] once daily lisinopriL 5 mg oral tablet 2 (two) tablet qd for 90 days Quantity: 180 {Tablet} Refills: 3 Ordered: 15-Jan-2023 Fast DO, Taylor A Fast DO, Taylor A Start : 15-Jan-2023 Active Comments: he has dysphagia and doesnt want the larger pill Start: 12-25-2022 take 2 tablets by [facility] once daily lisinopriL 5 mg oral [...] Start: 12-17-2022 take 1 capsule by [facility] once daily Turmeric 400 mg capsule Active [...] at some pointdiagn[facility] had vns and therapy into assess and do all they coulddiagnosed by muscle biopsy at [facility] 1995 Other screening for suspected conditions (not [...] Profile (BMP )on 04-17-2025 BUN Normal 4-19 [facility] Comment on above: Result Comment: Canc elled via OM: Order edited - Discontinuing original order Performed By: #### L 100.0100, L500.2500 #### [facility] [address] [facility] [address] BUN/CRE Normal 10-20 [facility] Comment on above: Result Comment: Canc elled via OM: Order edited - Discontinuing original order Performed By: #### L 100.0100, L500.2500 #### [facility] [address] [facility] [address] Calcium Normal 7.6-11.0 [facility] Comment on above: Result Comment: Canc elled via OM: Order edited - Discontinuing original order Performed By: #### L 100.0100, L500.2500 #### [facility] [address] [facility] [address] CL Normal 98-108 [facility] Comment on above: Result Comment: Canc elled via OM: Order edited - Discontinuing original order Performed By: #### L 100.0100, L500.2500 #### [facility] [address] [facility] [address] CO2 Normal 21.0-32.0 [facility] Comment on above: Result Comment: Canc elled via OM: Order edited - Discontinuing original order Performed By: #### L 100.0100, L500.2500 #### [facility] [address] [place], [address] CREAT,SERUM Normal 0.70-1.20 [facility] Comment on above: Result Comment: Canc elled via OM: Order edited - Discontinuing original order Performed By: #### L 100.0100, L500.2500 #### [facility] [address] [place], [address] eGFR Normal >60 [facility] Comment on above: Result Comment: Canc elled via OM: Order edited - Discontinuing original order Performed By: #### L 100.0100, L500.2500 #### [facility] [address] [place], [address] GAP Normal 5-15 [facility] Comment on above: Result Comment: Canc elled via OM: Order edited - Discontinuing original order Performed By: #### L 100.0100, L500.2500 #### [facility] [address] [place], [address] GLU Normal 70-99 [facility] Comment on above: Result Comment: Canc elled via OM: Order edited - Discontinuing original order Performed By: #### L 100.0100, L500.2500 #### [facility] [address] [place], [address] Potassium Normal 3.3-5.1 [facility] Comment on above: Result Comment: Canc elled via OM: Order edited - Discontinuing original order Performed By: #### L 100.0100, L500.2500 #### [facility] [address] [place], [address] Basic Metabolic Profile (BMP) Normal 133-145 [facility] Comment on above: Result Comment: Canc elled via OM: Order edited - Discontinuing original order Performed By: #### L 100.0100, L500.2500 #### [facility] [address] [place], [address] CBC W/Diff, Automatedon 12-1 Absolute Neut Normal 2.0-7.7 [facility] Comment on above: Result Comment: Canc elled via OM: Order edited - Discontinuing original order Performed By: #### L 100.0100, L500.2500 #### [facility] [address] [place], [address] HCT Normal 40-54 [facility] Comment on above: Result Comment: Canc elled via OM: Order edited - Discontinuing original order Performed By: #### L 100.0100, L500.2500 #### [facility] [address] [place], [address] HGB Normal 13.0-16.5 [facility] Comment on above: Result Comment: Canc elled via OM: Order edited - Discontinuing original order Performed By: #### L 100.0100, L500.2500 #### [facility] [address] [place], [address] MCH Normal 27.0-32.0 [facility] Comment on above: Result Comment: Canc elled via OM: Order edited - Discontinuing original order Performed By: #### L 100.0100, L500.2500 #### [facility] [address] [place], [address] MCHC Normal 32-36 [facility] Comment on above: Result Comment: Canc elled via OM: Order edited - Discontinuing original order Performed By: #### L 100.0100, L500.2500 #### [facility] [address] [place], [address] MCV Normal 80-94 [facility] Comment on above: Result Comment: Canc elled via OM: Order edited - Discontinuing original order Performed By: #### L 100.0100, L500.2500 #### [facility] [address] [place], [address] NEUT% Normal 47-70 [facility] Comment on above: Result Comment: Canc elled via OM: Order edited - Discontinuing original order Performed By: #### L 100.0100, L500.2500 #### [facility] [address] [place], [address] PLT Normal 150-450 [facility] Comment on above: Result Comment: Canc elled via OM: Order edited - Discontinuing original order Performed By: #### L 100.0100, L500.2500 #### [facility] [address] [place], [address] RBC Normal 4.6-6.2 [facility] Comment on above: Result Comment: Canc elled via OM: Order edited - Discontinuing original order Performed By: #### L 100.0100, L500.2500 #### [facility] [address] [place], [address] RDW CV Normal 11.6-14.6 [facility] Comment on above: Result Comment: Canc elled via OM: Order edited - Discontinuing original order Performed By: #### L 100.0100, L500.2500 #### [facility] [address] [place], [address] RDW SD Normal 35.1-43.9 [facility] Comment on above: Result Comment: Canc elled via OM: Order edited - Discontinuing original order Performed By: #### L 100.0100, L500.2500 #### [facility] [address] [place], [address] WBC Normal 4.4-11.0 [facility] Comment on above: Result Comment: Canc elled via OM: Order edited - Discontinuing original order Performed By: #### L 100.0100, L500.2500 #### [facility] [address] [place], [address] Basic Metabolic Profile (BMP )on 04-10-2025 BUN Normal 4-19 [facility] Comment on above: Result Comment: Canc elled via OM: Order edited - Discontinuing original order Performed By: #### L 100.0100, L500.2500 #### [facility] [address] [place], [address] BUN/CRE Normal 10-20 [facility] Comment on above: Result Comment: Canc elled via OM: Order edited - Discontinuing original order Performed By: #### L 100.0100, L500.2500 #### [facility] [address] [place], [address] Calcium Normal 7.6-11.0 [facility] Comment on above: Result Comment: Canc elled via OM: Order edited - Discontinuing original order Performed By: #### L 100.0100, L500.2500 #### [facility] [address] [place], [address] CL Normal 98-108 [facility] Comment on above: Result Comment: Canc elled via OM: Order edited - Discontinuing original order Performed By: #### L 100.0100, L500.2500 #### [facility] [address] [place], [address] CO2 Normal 21.0-32.0 [facility] Comment on above: Result Comment: Canc elled via OM: Order edited - Discontinuing original order Performed By: #### L 100.0100, L500.2500 #### [facility] [address] [place], [address] CREAT,SERUM Normal 0.70-1.20 [facility] Comment on above: Result Comment: Canc elled via OM: Order edited - Discontinuing original order Performed By: #### L 100.0100, L500.2500 #### [facility] [address] [place], [address] eGFR Normal >60 [facility] Comment on above: Result Comment: Canc elled via OM: Order edited - Discontinuing original order Performed By: #### L 100.0100, L500.2500 #### [facility] [address] [place], [address] GAP Normal 5-15 [facility] Comment on above: Result Comment: Canc elled via OM: Order edited - Discontinuing original order Performed By: #### L 100.0100, L500.2500 #### [facility] [address] [place], [address] GLU Normal 70-99 [facility] Comment on above: Result Comment: Canc elled via OM: Order edited - Discontinuing original order Performed By: #### L 100.0100, L500.2500 #### [facility] [address] [place], [address] Potassium Normal 3.3-5.1 [facility] Comment on above: Result Comment: Canc elled via OM: Order edited - Discontinuing original order Performed By: #### L 100.0100, L500.2500 #### [facility] [address] [place], [address] Basic Metabolic Profile (BMP) Normal 133-145 [facility] Comment on above: Result Comment: Canc elled via OM: Order edited - Discontinuing original order Performed By: #### L 100.0100, L500.2500 #### [facility] [address] [place], [address] CBC W/Diff, Automatedon 12-0 -2024 Absolute Neut Normal 2.0-7.7 [facility] Comment on above: Result Comment: Canc elled via OM: Order edited - Discontinuing original order Performed By: #### L 100.0100, L500.2500 #### [facility] [address] [place], [address] HCT Normal 40-54 [facility] Comment on above: Result Comment: Canc elled via OM: Order edited - Discontinuing original order Performed By: #### L 100.0100, L500.2500 #### [facility] [address] [place], [address] HGB Normal 13.0-16.5 [facility] Comment on above: Result Comment: Canc elled via OM: Order edited - Discontinuing original order Performed By: #### L 100.0100, L500.2500 #### [facility] [address] [place], [address] MCH Normal 27.0-32.0 [facility] Comment on above: Result Comment: Canc elled via OM: Order edited - Discontinuing original order Performed By: #### L 100.0100, L500.2500 #### [facility] [address] [place], [address] MCHC Normal 32-36 [facility] Comment on above: Result Comment: Canc elled via OM: Order edited - Discontinuing original order Performed By: #### L 100.0100, L500.2500 #### [facility] [address] [place], [address] MCV Normal 80-94 [facility] Comment on above: Result Comment: Canc elled via OM: Order edited - Discontinuing original order Performed By: #### L 100.0100, L500.2500 #### [facility] [address] [place], [address] NEUT% Normal 47-70 [facility] Comment on above: Result Comment: Canc elled via OM: Order edited - Discontinuing original order Performed By: #### L 100.0100, L500.2500 #### [facility] [address] [place], [address] PLT Normal 150-450 [facility] Comment on above: Result Comment: Canc elled via OM: Order edited - Discontinuing original order Performed By: #### L 100.0100, L500.2500 #### [facility] [address] [place], [address] RBC Normal 4.6-6.2 [facility] Comment on above: Result Comment: Canc elled via OM: Order edited - Discontinuing original order Performed By: #### L 100.0100, L500.2500 #### [facility] [address] [place], [address] RDW CV Normal 11.6-14.6 [facility] Comment on above: Result Comment: Canc elled via OM: Order edited - Discontinuing original order Performed By: #### L 100.0100, L500.2500 #### [facility] [address] [place], [address] RDW SD Normal 35.1-43.9 [facility] Comment on above: Result Comment: Canc elled via OM: Order edited - Discontinuing original order Performed By: #### L 100.0100, L500.2500 #### [facility] [address] [place], [address] WBC Normal 4.4-11.0 [facility] Comment on above: Result Comment: Canc elled via OM: Order edited - Discontinuing original order Performed By: #### L 100.0100, L500.2500 #### [facility] [address] [place], [address] Basic Metabolic Profile (BMP )on 04-03-2025 BUN Normal 4-19 [facility] Comment on above: Result Comment: Canc elled via OM: Order edited - Discontinuing original order Performed By: #### L 506.1001, L500.4050, L501.9520, L501.9985, L100.0100 #### [facility] [address] [place], [address] BUN/CRE Normal 10-20 [facility] Comment on above: Result Comment: Canc elled via OM: Order edited - Discontinuing original order Performed By: #### L 506.1001, L500.4050, L501.9520, L501.9985, L100.0100 #### [facility] [address] [place], [address] Calcium Normal 7.6-11.0 [facility] Comment on above: Result Comment: Canc elled via OM: Order edited - Discontinuing original order Performed By: #### L 506.1001, L500.4050, L501.9520, L501.9985, L100.0100 #### [facility] [address] [place], [address] CL Normal 98-108 [facility] Comment on above: Result Comment: Canc elled via OM: Order edited - Discontinuing original order Performed By: #### L 506.1001, L500.4050, L501.9520, L501.9985, L100.0100 #### [facility] [address] [place], [address] CO2 Normal 21.0-32.0 [facility] Comment on above: Result Comment: Canc elled via OM: Order edited - Discontinuing original order Performed By: #### L 506.1001, L500.4050, L501.9520, L501.9985, L100.0100 #### [facility] [address] [place], [address] CREAT,SERUM Normal 0.70-1.20 [facility] Comment on above: Result Comment: Canc elled via OM: Order edited - Discontinuing original order Performed By: #### L 506.1001, L500.4050, L501.9520, L501.9985, L100.0100 #### [facility] [address] [place], [address] eGFR Normal >60 [facility] Comment on above: Result Comment: Canc elled via OM: Order edited - Discontinuing original order Performed By: #### L 506.1001, L500.4050, L501.9520, L501.9985, L100.0100 #### [facility] [address] [place], [address] GAP Normal 5-15 [facility] Comment on above: Result Comment: Canc elled via OM: Order edited - Discontinuing original order Performed By: #### L 506.1001, L500.4050, L501.9520, L501.9985, L100.0100 #### [facility] [address] [place], [address] GLU Normal 70-99 [facility] Comment on above: Result Comment: Canc elled via OM: Order edited - Discontinuing original order Performed By: #### L 506.1001, L500.4050, L501.9520, L501.9985, L100.0100 #### [facility] [address] [place], [address] Potassium Normal 3.3-5.1 [facility] Comment on above: Result Comment: Canc elled via OM: Order edited - Discontinuing original order Performed By: #### L 506.1001, L500.4050, L501.9520, L501.9985, L100.0100 #### [facility] [address] [place], [address] Basic Metabolic Profile (BMP) Normal 133-145 [facility] Comment on above: Result Comment: Canc elled via OM: Order edited - Discontinuing original order Performed By: #### L 506.1001, L500.4050, L501.9520, L501.9985, L100.0100 #### [facility] [address] [place], [address] CBC W/Diff, Automatedon 11-2 -2024 Absolute Neut Normal 2.0-7.7 [facility] Comment on above: Result Comment: Canc elled via OM: Order edited - Discontinuing original order Performed By: #### L 506.1001, L500.4050, L501.9520, L501.9985, L100.0100 #### [facility] [address] [place], [address] HCT Normal 40-54 [facility] Comment on above: Result Comment: Canc elled via OM: Order edited - Discontinuing original order Performed By: #### L 506.1001, L500.4050, L501.9520, L501.9985, L100.0100 #### [facility] [address] [place], [address] HGB Normal 13.0-16.5 [facility] Comment on above: Result Comment: Canc elled via OM: Order edited - Discontinuing original order Performed By: #### L 506.1001, L500.4050, L501.9520, L501.9985, L100.0100 #### [facility] [address] [place], [address] MCH Normal 27.0-32.0 [facility] Comment on above: Result Comment: Canc elled via OM: Order edited - Discontinuing original order Performed By: #### L 506.1001, L500.4050, L501.9520, L501.9985, L100.0100 #### [facility] [address] [place], [address] MCHC Normal 32-36 [facility] Comment on above: Result Comment: Canc elled via OM: Order edited - Discontinuing original order Performed By: #### L 506.1001, L500.4050, L501.9520, L501.9985, L100.0100 #### [facility] [address] [place], [address] MCV Normal 80-94 [facility] Comment on above: Result Comment: Canc elled via OM: Order edited - Discontinuing original order Performed By: #### L 506.1001, L500.4050, L501.9520, L501.9985, L100.0100 #### [facility] [address] [place], [address] NEUT% Normal 47-70 [facility] Comment on above: Result Comment: Canc elled via OM: Order edited - Discontinuing original order Performed By: #### L 506.1001, L500.4050, L501.9520, L501.9985, L100.0100 #### [facility] [address] [place], [address] PLT Normal 150-450 [facility] Comment on above: Result Comment: Canc elled via OM: Order edited - Discontinuing original order Performed By: #### L 506.1001, L500.4050, L501.9520, L501.9985, L100.0100 #### [facility] [address] [place], [address] RBC Normal 4.6-6.2 [facility] Comment on above: Result Comment: Canc elled via OM: Order edited - Discontinuing original order Performed By: #### L 506.1001, L500.4050, L501.9520, L501.9985, L100.0100 #### [facility] [address] [place], [address] RDW CV Normal 11.6-14.6 [facility] Comment on above: Result Comment: Canc elled via OM: Order edited - Discontinuing original order Performed By: #### L 506.1001, L500.4050, L501.9520, L501.9985, L100.0100 #### [facility] [address] [place], [address] RDW SD Normal 35.1-43.9 [facility] Comment on above: Result Comment: Canc elled via OM: Order edited - Discontinuing original order Performed By: #### L 506.1001, L500.4050, L501.9520, L501.9985, L100.0100 #### [facility] [address] [place], [address] WBC Normal 4.4-11.0 [facility] Comment on above: Result Comment: Canc elled via OM: Order edited - Discontinuing original order Performed By: #### L 506.1001, L500.4050, L501.9520, L501.9985, L100.0100 #### [facility] [address] [place], [address] Basic Metabolic Profile (BMP )on 03-27-2025 BUN Normal 4-19 [facility] Comment on above: Result Comment: Canc elled via OM: Order edited - Discontinuing original order Performed By: #### L 506.1001, L500.4050, L501.9520, L501.9985, L100.0100 #### [facility] [address] [place], [address] BUN/CRE Normal 10-20 [facility] Comment on above: Result Comment: Canc elled via OM: Order edited - Discontinuing original order Performed By: #### L 506.1001, L500.4050, L501.9520, L501.9985, L100.0100 #### [facility] [address] [place], [address] Calcium Normal 7.6-11.0 [facility] Comment on above: Result Comment: Canc elled via OM: Order edited - Discontinuing original order Performed By: #### L 506.1001, L500.4050, L501.9520, L501.9985, L100.0100 #### [facility] [address] [place], [address] CL Normal 98-108 [facility] Comment on above: Result Comment: Canc elled via OM: Order edited - Discontinuing original order Performed By: #### L 506.1001, L500.4050, L501.9520, L501.9985, L100.0100 #### [facility] [address] [place], [address] CO2 Normal 21.0-32.0 [facility] Comment on above: Result Comment: Canc elled via OM: Order edited - Discontinuing original order Performed By: #### L 506.1001, L500.4050, L501.9520, L501.9985, L100.0100 #### [facility] [address] [place], [address] CREAT,SERUM Normal 0.70-1.20 [facility] Comment on above: Result Comment: Can elled via OM: Order edited - Discontinuing original order Performed By: #### L 506.1001, L500.4050, L501.9520, L501.9985, L100.0100 #### [facility] [address] [place], [address] eGFR Normal >60 [facility] Comment on above: Result Comment: Can elled via OM: Order edited - Discontinuing original order Performed By: #### L 506.1001, L500.4050, L501.9520, L501.9985, L100.0100 #### [facility] [address] [place], [address] GAP Normal 5-15 [facility] Comment on above: Result Comment: Canc elled via OM: Order edited - Discontinuing original order Performed By: #### L 506.1001, L500.4050, L501.9520, L501.9985, L100.0100 #### [facility] [address] [place], [address] GLU Normal 70-99 [facility] Comment on above: Result Comment: Canc elled via OM: Order edited - Discontinuing original order Performed By: #### L 506.1001, L500.4050, L501.9520, L501.9985, L100.0100 #### [facility] [address] [place], [address] Potassium Normal 3.3-5.1 [facility] Comment on above: Result Comment: Canc elled via OM: Order edited - Discontinuing original order Performed By: #### L 506.1001, L500.4050, L501.9520, L501.9985, L100.0100 #### [facility] [address] [place], [address] Basic Metabolic Profile (BMP) Normal 133-145 [facility] Comment on above: Result Comment: Canc elled via OM: Order edited - Discontinuing original order Performed By: #### L 506.1001, L500.4050, L501.9520, L501.9985, L100.0100 #### [facility] [address] [place], [address] CBC W/Diff, Automatedon 11-2 Absolute Neut Normal 2.0-7.7 [facility] Comment on above: Result Comment: Canc elled via OM: Order edited - Discontinuing original order Performed By: #### L 506.1001, L500.4050, L501.9520, L501.9985, L100.0100 #### [facility] [address] [place], [address] HCT Normal 40-54 [facility] Comment on above: Result Comment: Canc elled via OM: Order edited - Discontinuing original order Performed By: #### L 506.1001, L500.4050, L501.9520, L501.9985, L100.0100 #### [facility] [address] [place], [address] HGB Normal 13.0-16.5 [facility] Comment on above: Result Comment: Canc elled via OM: Order edited - Discontinuing original order Performed By: #### L 506.1001, L500.4050, L501.9520, L501.9985, L100.0100 #### [facility] [address] [place], [address] MCH Normal 27.0-32.0 [facility] Comment on above: Result Comment: Canc elled via OM: Order edited - Discontinuing original order Performed By: #### L 506.1001, L500.4050, L501.9520, L501.9985, L100.0100 #### [facility] [address] [place], [address] MCHC Normal 32-36 [facility] Comment on above: Result Comment: Canc elled via OM: Order edited - Discontinuing original order Performed By: #### L 506.1001, L500.4050, L501.9520, L501.9985, L100.0100 #### [facility] [address] [place], [address] MCV Normal 80-94 [facility] Comment on above: Result Comment: Canc elled via OM: Order edited - Discontinuing original order Performed By: #### L 506.1001, L500.4050, L501.9520, L501.9985, L100.0100 #### [facility] [address] [place], [address] NEUT% Normal 47-70 [facility] Comment on above: Result Comment: Canc elled via OM: Order edited - Discontinuing original order Performed By: #### L 506.1001, L500.4050, L501.9520, L501.9985, L100.0100 #### [facility] [address] [place], [address] PLT Normal 150-450 [facility] Comment on above: Result Comment: Canc elled via OM: Order edited - Discontinuing original order Performed By: #### L 506.1001, L500.4050, L501.9520, L501.9985, L100.0100 #### [facility] [address] [place], [address] RBC Normal 4.6-6.2 [facility] Comment on above: Result Comment: Canc elled via OM: Order edited - Discontinuing original order Performed By: #### L 506.1001, L500.4050, L501.9520, L501.9985, L100.0100 #### [facility] [address] [place], [address] RDW CV Normal 11.6-14.6 [facility] Comment on above: Result Comment: Canc elled via OM: Order edited - Discontinuing original order Performed By: #### L 506.1001, L500.4050, L501.9520, L501.9985, L100.0100 #### [facility] [address] [place], [address] RDW SD Normal 35.1-43.9 [facility] Comment on above: Result Comment: Canc elled via OM: Order edited - Discontinuing original order Performed By: #### L 506.1001, L500.4050, L501.9520, L501.9985, L100.0100 #### [facility] [address] [place], [address] WBC Normal 4.4-11.0 [facility] Comment on above: Result Comment: Canc elled via OM: Order edited - Discontinuing original order Performed By: #### L 506.1001, L500.4050, L501.9520, L501.9985, L100.0100 #### [facility] [address] [place], [address] Basic Metabolic Profile (BMP )on 03-20-2025 BUN Normal 4-19 [facility] Comment on above: Result Comment: Canc elled via OM: Order edited - Discontinuing original order Performed By: #### L 100.0100, L500.2500 #### [facility] [address] [place], [address] BUN/CRE Normal 10-20 [facility] Comment on above: Result Comment: Canc elled via OM: Order edited - Discontinuing original order Performed By: #### L 100.0100, L500.2500 #### [facility] [address] [place], [address] Calcium Normal 7.6-11.0 [facility] Comment on above: Result Comment: Canc elled via OM: Order edited - Discontinuing original order Performed By: #### L 100.0100, L500.2500 #### [facility] [address] [place], [address] CL Normal 98-108 [facility] Comment on above: Result Comment: Canc elled via OM: Order edited - Discontinuing original order Performed By: #### L 100.0100, L500.2500 #### [facility] [address] [place], [address] CO2 Normal 21.0-32.0 [facility] Comment on above: Result Comment: Canc elled via OM: Order edited - Discontinuing original order Performed By: #### L 100.0100, L500.2500 #### [facility] [address] [place], [address] CREAT,SERUM Normal 0.70-1.20 [facility] Comment on above: Result Comment: Canc elled via OM: Order edited - Discontinuing original order Performed By: #### L 100.0100, L500.2500 #### [facility] [address] [place], [address] eGFR Normal >60 [facility] Comment on above: Result Comment: Canc elled via OM: Order edited - Discontinuing original order Performed By: #### L 100.0100, L500.2500 #### [facility] [address] [place], [address] GAP Normal 5-15 [facility] Comment on above: Result Comment: Canc elled via OM: Order edited - Discontinuing original order Performed By: #### L 100.0100, L500.2500 #### [facility] [address] [place], [address] GLU Normal 70-99 [facility] Comment on above: Result Comment: Canc elled via OM: Order edited - Discontinuing original order Performed By: #### L 100.0100, L500.2500 #### [facility] [address] [place], [address] Potassium Normal 3.3-5.1 [facility] Comment on above: Result Comment: Canc elled via OM: Order edited - Discontinuing original order Performed By: #### L 100.0100, L500.2500 #### [facility] [address] [place], [address] Basic Metabolic Profile (BMP) Normal 133-145 [facility] Comment on above: Result Comment: Canc elled via OM: Order edited - Discontinuing original order Performed By: #### L 100.0100, L500.2500 #### [facility] [address] [place], [address] CBC W/Diff, Automatedon 11- Absolute Neut Normal 2.0-7.7 [facility] Comment on above: Result Comment: Canc elled via OM: Order edited - Discontinuing original order Performed By: #### L 100.0100, L500.2500 #### [facility] [address] [place], [address] HCT Normal 40-54 [facility] Comment on above: Result Comment: Canc elled via OM: Order edited - Discontinuing original order Performed By: #### L 100.0100, L500.2500 #### [facility] [address] [place], [address] HGB Normal 13.0-16.5 [facility] Comment on above: Result Comment: Canc elled via OM: Order edited - Discontinuing original order Performed By: #### L 100.0100, L500.2500 #### [facility] [address] [place], [address] MCH Normal 27.0-32.0 [facility] Comment on above: Result Comment: Canc elled via OM: Order edited - Discontinuing original order Performed By: #### L 100.0100, L500.2500 #### [facility] [address] [place], [address] MCHC Normal 32-36 [facility] Comment on above: Result Comment: Canc elled via OM: Order edited - Discontinuing original order Performed By: #### L 100.0100, L500.2500 #### [facility] [address] [place], [address] MCV Normal 80-94 [facility] Comment on above: Result Comment: Canc elled via OM: Order edited - Discontinuing original order Performed By: #### L 100.0100, L500.2500 #### [facility] [address] [place], [address] NEUT% Normal 47-70 [facility] Comment on above: Result Comment: Canc elled via OM: Order edited - Discontinuing original order Performed By: #### L 100.0100, L500.2500 #### [facility] [address] [place], [address] PLT Normal 150-450 [facility] Comment on above: Result Comment: Canc elled via OM: Order edited - Discontinuing original order Performed By: #### L 100.0100, L500.2500 #### [facility] [address] [place], [address] RBC Normal 4.6-6.2 [facility] Comment on above: Result Comment: Canc elled via OM: Order edited - Discontinuing original order Performed By: #### L 100.0100, L500.2500 #### [facility] [address] [place], [address] RDW CV Normal 11.6-14.6 [facility] Comment on above: Result Comment: Canc elled via OM: Order edited - Discontinuing original order Performed By: #### L 100.0100, L500.2500 #### [facility] [address] [place], [address] RDW SD Normal 35.1-43.9 [facility] Comment on above: Result Comment: Canc elled via OM: Order edited - Discontinuing original order Performed By: #### L 100.0100, L500.2500 #### [facility] [address] [place], [address] WBC Normal 4.4-11.0 [facility] Comment on above: Result Comment: Canc elled via OM: Order edited - Discontinuing original order Performed By: #### L 100.0100, L500.2500 #### [facility] [address] [place], [address] Urine Cultureon 03-19-2025 URC Escherichia coli [place] Count 25,000-50,000 Escherichia coli: REACTION Ampicillin Islt [...] TMP SMX Islt BRENT <=20 S Normal [facility] Comment on above: Performed By: #### L 100.0100, L500.2500 #### [facility] [address] [place], [address] Urinalysis, Completeon 03-17 BACTERIA 3+ /hpf Normal None Seen [facility] Comment on above: Order Comment: USHA TER SPECIMEN Performed By: #### M 100.2200, L400.0001 #### [facility] [address] [place], [address] WBC 0-5 SEEN Normal 0-5 [facility] Comment on above: Order Comment: USHA TER SPECIMEN Performed By: #### M 100.2200, L400.0001 #### [facility] [address] [place], [address] EPI,SQUAMOUS 0 SEEN Normal 0-5 [facility] Comment on above: Order Comment: USHA TER SPECIMEN Performed By: #### M 100.2200, L400.0001 #### [facility] [address] [place], [address] Mucus Ql (Urine sed) 0 SEEN Normal [facility] Comment on above: Order Comment: USHA TER SPECIMEN Performed By: #### M 100.2200, L400.0001 #### [facility] [address] [place], [address] RBC 0 SEEN Normal 0-5 [facility] Comment on above: Order Comment: USHA TER SPECIMEN Performed By: #### M 100.2200, L400.0001 #### [facility] [address] [place], [address] Basic Metabolic Profile (BMP )on 03-16-2025 BUN Normal 4-19 [facility] Comment on above: Result Comment: Canc elled via OM: Order Changed Performed By: #### L 100.0100, L500.2500 #### [facility] [address] [place], [address] BUN/CRE Normal 10-20 [facility] Comment on above: Result Comment: Canc elled via OM: Order Changed Performed By: #### L 100.0100, L500.2500 #### [facility] [address] [place], [address] Calcium Normal 7.6-11.0 [facility] Comment on above: Result Comment: Canc elled via OM: Order Changed Performed By: #### L 100.0100, L500.2500 #### [facility] [address] [place], [address] CL Normal 98-108 [facility] Comment on above: Result Comment: Canc elled via OM: Order Changed Performed By: #### L 100.0100, L500.2500 #### [facility] [address] [place], [address] CO2 Normal 21.0-32.0 [facility] Comment on above: Result Comment: Canc elled via OM: Order Changed Performed By: #### L 100.0100, L500.2500 #### [facility] [address] [place], [address] CREAT,SERUM Normal 0.70-1.20 [facility] Comment on above: Result Comment: Canc elled via OM: Order Changed Performed By: #### L 100.0100, L500.2500 #### [facility] [address] [place], [address] eGFR Normal >60 [facility] Comment on above: Result Comment: Canc elled via OM: Order Changed Performed By: #### L 100.0100, L500.2500 #### [facility] [address] [place], [address] GAP Normal 5-15 [facility] Comment on above: Result Comment: Canc elled via OM: Order Changed Performed By: #### L 100.0100, L500.2500 #### [facility] [address] [place], [address] GLU Normal 70-99 [facility] Comment on above: Result Comment: Canc elled via OM: Order Changed Performed By: #### L 100.0100, L500.2500 #### [facility] [address] [place], [address] Potassium Normal 3.3-5.1 [facility] Comment on above: Result Comment: Canc elled via OM: Order Changed Performed By: #### L 100.0100, L500.2500 #### [facility] [address] [place], [address] Basic Metabolic Profile (BMP) Normal 133-145 [facility] Comment on above: Result Comment: Canc elled via OM: Order Changed Performed By: #### L 100.0100, L500.2500 #### [facility] [address] [place], [address] CBC W/Diff, Automatedon 11-1 0-2024 Absolute Neut Normal 2.0-7.7 [facility] Comment on above: Result Comment: Canc elled via OM: Order Changed Performed By: #### L 100.0100, L500.2500 #### [facility] [address] [place], [address] HCT Normal 40-54 [facility] Comment on above: Result Comment: Canc elled via OM: Order Changed Performed By: #### L 100.0100, L500.2500 #### [facility] [address] [place], [address] HGB Normal 13.0-16.5 [facility] Comment on above: Result Comment: Canc elled via OM: Order Changed Performed By: #### L 100.0100, L500.2500 #### [facility] [address] [place], [address] MCH Normal 27.0-32.0 [facility] Comment on above: Result Comment: Canc elled via OM: Order Changed Performed By: #### L 100.0100, L500.2500 #### [facility] [address] [place], [address] MCHC Normal 32-36 [facility] Comment on above: Result Comment: Canc elled via OM: Order Changed Performed By: #### L 100.0100, L500.2500 #### [facility] [address] [place], [address] MCV Normal 80-94 [facility] Comment on above: Result Comment: Canc elled via OM: Order Changed Performed By: #### L 100.0100, L500.2500 #### [facility] [address] [place], [address] NEUT% Normal 47-70 [facility] Comment on above: Result Comment: Canc elled via OM: Order Changed Performed By: #### L 100.0100, L500.2500 #### [facility] [address] [place], [address] PLT Normal 150-450 [facility] Comment on above: Result Comment: Canc elled via OM: Order Changed Performed By: #### L 100.0100, L500.2500 #### [facility] [address] [place], [address] RBC Normal 4.6-6.2 [facility] Comment on above: Result Comment: Canc elled via OM: Order Changed Performed By: #### L 100.0100, L500.2500 #### [facility] [address] [place], [address] RDW CV Normal 11.6-14.6 [facility] Comment on above: Result Comment: Canc elled via OM: Order Changed Performed By: #### L 100.0100, L500.2500 #### [facility] [address] [place], [address] RDW SD Normal 35.1-43.9 [facility] Comment on above: Result Comment: Canc elled via OM: Order Changed Performed By: #### L 100.0100, L500.2500 #### [facility] [address] [place], [address] WBC Normal 4.4-11.0 [facility] Comment on above: Result Comment: Canc elled via OM: Order Changed Performed By: #### L 100.0100, L500.2500 #### [facility] [address] [place], [address] Basic Metabolic Profile (BMP )on 03-15-2025 BUN Normal 4-19 [facility] Comment on above: Result Comment: Canc elled via OM: Order Changed Performed By: #### L 100.0100, L500.2500 #### [facility] [address] [place], [address] BUN/CRE Normal 10-20 [facility] Comment on above: Result Comment: Canc elled via OM: Order Changed Performed By: #### L 100.0100, L500.2500 #### [facility] [address] [place], [address] Calcium Normal 7.6-11.0 [facility] Comment on above: Result Comment: Canc elled via OM: Order Changed Performed By: #### L 100.0100, L500.2500 #### [facility] [address] [place], [address] CL Normal 98-108 [facility] Comment on above: Result Comment: Canc elled via OM: Order Changed Performed By: #### L 100.0100, L500.2500 #### [facility] [address] [place], [address] CO2 Normal 21.0-32.0 [facility] Comment on above: Result Comment: Canc elled via OM: Order Changed Performed By: #### L 100.0100, L500.2500 #### [facility] [address] [place], [address] CREAT,SERUM Normal 0.70-1.20 [facility] Comment on above: Result Comment: Canc elled via OM: Order Changed Performed By: #### L 100.0100, L500.2500 #### [facility] [address] [place], [address] eGFR Normal >60 [facility] Comment on above: Result Comment: Canc elled via OM: Order Changed Performed By: #### L 100.0100, L500.2500 #### [facility] [address] [place], [address] GAP Normal 5-15 [facility] Comment on above: Result Comment: Canc elled via OM: Order Changed Performed By: #### L 100.0100, L500.2500 #### [facility] [address] [place], [address] GLU Normal 70-99 [facility] Comment on above: Result Comment: Canc elled via OM: Order Changed Performed By: #### L 100.0100, L500.2500 #### [facility] [address] [place], [address] Potassium Normal 3.3-5.1 [facility] Comment on above: Result Comment: Canc elled via OM: Order Changed Performed By: #### L 100.0100, L500.2500 #### [facility] [address] [place], [address] Basic Metabolic Profile (BMP) Normal 133-145 [facility] Comment on above: Result Comment: Canc elled via OM: Order Changed Performed By: #### L 100.0100, L500.2500 #### [facility] [address] [place], [address] CBC W/Diff, Automatedon 11-0 -2024 Absolute Neut Normal 2.0-7.7 [facility] Comment on above: Result Comment: Canc elled via OM: Order Changed Performed By: #### L 100.0100, L500.2500 #### [facility] [address] [place], [address] HCT Normal 40-54 [facility] Comment on above: Result Comment: Canc elled via OM: Order Changed Performed By: #### L 100.0100, L500.2500 #### [facility] [address] [place], [address] HGB Normal 13.0-16.5 [facility] Comment on above: Result Comment: Canc elled via OM: Order Changed Performed By: #### L 100.0100, L500.2500 #### [facility] [address] [place], [address] MCH Normal 27.0-32.0 [facility] Comment on above: Result Comment: Canc elled via OM: Order Changed Performed By: #### L 100.0100, L500.2500 #### [facility] [address] [place], [address] MCHC Normal 32-36 [facility] Comment on above: Result Comment: Canc elled via OM: Order Changed Performed By: #### L 100.0100, L500.2500 #### [facility] [address] [place], [address] MCV Normal 80-94 [facility] Comment on above: Result Comment: Canc elled via OM: Order Changed Performed By: #### L 100.0100, L500.2500 #### [facility] [address] [place], [address] NEUT% Normal 47-70 [facility] Comment on above: Result Comment: Canc elled via OM: Order Changed Performed By: #### L 100.0100, L500.2500 #### [facility] [address] [place], [address] PLT Normal 150-450 [facility] Comment on above: Result Comment: Canc elled via OM: Order Changed Performed By: #### L 100.0100, L500.2500 #### [facility] [address] [place], [address] RBC Normal 4.6-6.2 [facility] Comment on above: Result Comment: Canc elled via OM: Order Changed Performed By: #### L 100.0100, L500.2500 #### [facility] [address] [place], [address] RDW CV Normal 11.6-14.6 [facility] Comment on above: Result Comment: Canc elled via OM: Order Changed Performed By: #### L 100.0100, L500.2500 #### [facility] [address] [place], [address] RDW SD Normal 35.1-43.9 [facility] Comment on above: Result Comment: Canc elled via OM: Order Changed Performed By: #### L 100.0100, L500.2500 #### [facility] [address] [place], [address] WBC Normal 4.4-11.0 [facility] Comment on above: Result Comment: Canc elled via OM: Order Changed Performed By: #### L 100.0100, L500.2500 #### [facility] [address] [place], [address] Basic Metabolic Profile (BMP )on 03-14-2025 BUN Normal 4-19 [facility] Comment on above: Result Comment: Canc elled via OM: Order Changed Performed By: #### L 100.0100, L500.2500 #### [facility] [address] [place], [address] BUN/CRE Normal 10-20 [facility] Comment on above: Result Comment: Canc elled via OM: Order Changed Performed By: #### L 100.0100, L500.2500 #### [facility] [address] [place], [address] Calcium Normal 7.6-11.0 [facility] Comment on above: Result Comment: Canc elled via OM: Order Changed Performed By: #### L 100.0100, L500.2500 #### [facility] [address] [place], [address] CL Normal 98-108 [facility] Comment on above: Result Comment: Canc elled via OM: Order Changed Performed By: #### L 100.0100, L500.2500 #### [facility] [address] [place], [address] CO2 Normal 21.0-32.0 [facility] Comment on above: Result Comment: Canc elled via OM: Order Changed Performed By: #### L 100.0100, L500.2500 #### [facility] [address] [place], [address] CREAT,SERUM Normal 0.70-1.20 [facility] Comment on above: Result Comment: Canc elled via OM: Order Changed Performed By: #### L 100.0100, L500.2500 #### [facility] [address] [place], [address] eGFR Normal >60 [facility] Comment on above: Result Comment: Canc elled via OM: Order Changed Performed By: #### L 100.0100, L500.2500 #### [facility] [address] [place], [address] GAP Normal 5-15 [facility] Comment on above: Result Comment: Canc elled via OM: Order Changed Performed By: #### L 100.0100, L500.2500 #### [facility] [address] [place], [address] GLU Normal 70-99 [facility] Comment on above: Result Comment: Canc elled via OM: Order Changed Performed By: #### L 100.0100, L500.2500 #### [facility] [address] [place], [address] Potassium Normal 3.3-5.1 [facility] Comment on above: Result Comment: Canc elled via OM: Order Changed Performed By: #### L 100.0100, L500.2500 #### [facility] [address] [place], [address] Basic Metabolic Profile (BMP) Normal 133-145 [facility] Comment on above: Result Comment: Canc elled via OM: Order Changed Performed By: #### L 100.0100, L500.2500 #### [facility] [address] [place], [address] CBC W/Diff, Automatedon 11-0 Absolute Neut Normal 2.0-7.7 [facility] Comment on above: Result Comment: Canc elled via OM: Order Changed Performed By: #### L 100.0100, L500.2500 #### [facility] [address] [place], [address] HCT Normal 40-54 [facility] Comment on above: Result Comment: Canc elled via OM: Order Changed Performed By: #### L 100.0100, L500.2500 #### [facility] [address] [place], [address] HGB Normal 13.0-16.5 [facility] Comment on above: Result Comment: Canc elled via OM: Order Changed Performed By: #### L 100.0100, L500.2500 #### [facility] [address] [place], [address] MCH Normal 27.0-32.0 [facility] Comment on above: Result Comment: Canc elled via OM: Order Changed Performed By: #### L 100.0100, L500.2500 #### [facility] [address] [place], [address] MCHC Normal 32-36 [facility] Comment on above: Result Comment: Canc elled via OM: Order Changed Performed By: #### L 100.0100, L500.2500 #### [facility] [address] [place], [address] MCV Normal 80-94 [facility] Comment on above: Result Comment: Canc elled via OM: Order Changed Performed By: #### L 100.0100, L500.2500 #### [facility] [address] [place], [address] NEUT% Normal 47-70 [facility] Comment on above: Result Comment: Canc elled via OM: Order Changed Performed By: #### L 100.0100, L500.2500 #### [facility] [address] [place], [address] PLT Normal 150-450 [facility] Comment on above: Result Comment: Canc elled via OM: Order Changed Performed By: #### L 100.0100, L500.2500 #### [facility] [address] [place], [address] RBC Normal 4.6-6.2 [facility] Comment on above: Result Comment: Canc elled via OM: Order Changed Performed By: #### L 100.0100, L500.2500 #### [facility] [address] [place], [address] RDW CV Normal 11.6-14.6 [facility] Comment on above: Result Comment: Canc elled via OM: Order Changed Performed By: #### L 100.0100, L500.2500 #### [facility] [address] [place], [address] RDW SD Normal 35.1-43.9 [facility] Comment on above: Result Comment: Canc elled via OM: Order Changed Performed By: #### L 100.0100, L500.2500 #### [facility] [address] [place], [address] WBC Normal 4.4-11.0 [facility] Comment on above: Result Comment: Canc elled via OM: Order Changed Performed By: #### L 100.0100, L500.2500 #### [facility] [address] [place], [address] Absolute lymphocyte countOrd ered By: Rey Henao on 03-13-2025 Lymphocytes Auto (Unsp spec) [#/Vol] 1.29 10*3/uL 0.83-4.51 [facility] Absolute neutrophil countOrd ered By: Rey Henao on 03-13-2025 Neutrophils (Bld) [#/Vol] 6.5 10*3/uL 2.0-7.7 [facility] Anion gap in Serum or Plasma Ordered By: Rey Henao on 03-13-2025 Anion gap [Moles/Vol] 9 mmol/L 5-15 [facility] Automated lymphocyte count a s percentage of total leukocytesOrdered By: Rey Henao on 03-13-2025 Lymphocytes/100 WBC Auto (Unsp spec) 13.7 % Low 19-41 [facility] Basic Metabolic Profile (BMP )on 03-13-2025 BUN/CRE 43.2 RATIO High 10-20 [facility] Comment on above: Performed By: #### L 506.1001, L500.4050, L501.9520, L501.9985, L100.0100 #### [facility] [address] [place], [address] Calcium [Mass/Vol] 8.6 mg/dL Normal 7.6-11.[address] [facility] Comment on above: Performed By: #### L 506.1001, L500.4050, L501.9520, L501.9985, L100.0100 #### [facility] [address] [place], [address] Chloride [Moles/Vol] 101 mmol/L Normal 98-108 [facility] Comment on above: Performed By: #### L 506.1001, L500.4050, L501.9520, L501.9985, L100.0100 #### [facility] [address] [place], [address] CO2 [Moles/Vol] 23.0 mmol/L Normal 21.0-32.0 [facility] Comment on above: Performed By: #### L 506.1001, L500.4050, L501.9520, L501.9985, L100.0100 #### [facility] [address] [place], [address] Creatinine [Mass/Vol] 0.37 mg/dL Low 0.70-1.20 [facility] Comment on above: Performed By: #### L 506.1001, L500.4050, L501.9520, L501.9985, L100.0100 #### [facility] [address] [place], [address] ECRCL 59.81 ml/min Normal 50-250 [facility] Comment on above: Performed By: #### L 506.1001, L500.4050, L501.9520, L501.9985, L100.0100 #### [facility] [address] [place], [address] GAP 9 Normal 5-15 [facility] Comment on above: Performed By: #### L 506.1001, L500.4050, L501.9520, L501.9985, L100.0100 #### [facility] [address] [place], [address] GFR/1.73 sq M.predicted among non-blacks MDRD (S/P/Bld) [Vol rate/Area] 109 mL/min/{1.73_m2} Normal >60 [facility] Comment on above: Result Comment: mL/m in/1.73m2 CKD-EPI Creatinine Equation (2020) Performed By: #### L 506.1001, L500.4050, L501.9520, L501.9985, L100.0100 #### [facility] [address] [place], [address] Glucose [Mass/Vol] 129 mg/dL High 70-[address] [facility] Comment on above: Performed By: #### L 506.1001, L500.4050, L501.9520, L501.9985, L100.0100 #### [facility] [address] [place], [address] Potassium [Moles/Vol] 4.2 mmol/L Normal 3.3-5.1 [facility] Comment on above: Performed By: #### L 506.1001, L500.4050, L501.9520, L501.9985, L100.0100 #### [facility] [address] [place], [address] Sodium [Moles/Vol] 132 mmol/L Low 133-[address] [facility] Comment on above: Performed By: #### L 506.1001, L500.4050, L501.9520, L501.9985, L100.0100 #### [facility] [address] [place], [address] Urea nitrogen [Mass/Vol] 16 mg/dL Normal 4-19 [facility] Comment on above: Performed By: #### L 506.1001, L500.4050, L501.9520, L501.9985, L100.0100 #### [facility] [address] [place], [address] BUN Normal 4-19 [facility] Comment on above: Result Comment: Canc elled via OM: Order edited - Discontinuing original order Performed By: #### L 100.0100, L500.2500 #### [facility] [address] [place], [address] BUN/CRE Normal 10-20 [facility] Comment on above: Result Comment: Canc elled via OM: Order edited - Discontinuing original order Performed By: #### L 100.0100, L500.2500 #### [facility] [address] [place], [address] Calcium Normal 7.6-11.0 [facility] Comment on above: Result Comment: Canc elled via OM: Order edited - Discontinuing original order Performed By: #### L 100.0100, L500.2500 #### [facility] [address] [place], [address] CL Normal 98-108 [facility] Comment on above: Result Comment: Canc elled via OM: Order edited - Discontinuing original order Performed By: #### L 100.0100, L500.2500 #### [facility] [address] [place], [address] CO2 Normal 21.0-32.0 [facility] Comment on above: Result Comment: Canc elled via OM: Order edited - Discontinuing original order Performed By: #### L 100.0100, L500.2500 #### [facility] [address] [place], [address] CREAT,SERUM Normal 0.70-1.20 [facility] Comment on above: Result Comment: Canc elled via OM: Order edited - Discontinuing original order Performed By: #### L 100.0100, L500.2500 #### [facility] [address] [place], [address] eGFR Normal >60 [facility] Comment on above: Result Comment: Canc elled via OM: Order edited - Discontinuing original order Performed By: #### L 100.0100, L500.2500 #### [facility] [address] [place], [address] GAP Normal 5-15 [facility] Comment on above: Result Comment: Canc elled via OM: Order edited - Discontinuing original order Performed By: #### L 100.0100, L500.2500 #### [facility] [address] [place], [address] GLU Normal 70-99 [facility] Comment on above: Result Comment: Canc elled via OM: Order edited - Discontinuing original order Performed By: #### L 100.0100, L500.2500 #### [facility] [address] [place], [address] Potassium Normal 3.3-5.1 [facility] Comment on above: Result Comment: Canc elled via OM: Order edited - Discontinuing original order Performed By: #### L 100.0100, L500.2500 #### [facility] [address] [place], [address] Basic Metabolic Profile (BMP) Normal 133-145 [facility] Comment on above: Result Comment: Canc elled via OM: Order edited - Discontinuing original order Performed By: #### L 100.0100, L500.2500 #### [facility] [address] [place], [address] BUN Normal 4-19 [facility] Comment on above: Result Comment: Canc elled via OM: Order Changed Performed By: #### L 100.0100, L500.2500 #### [facility] [address] [place], [address] BUN/CRE Normal 10-20 [facility] Comment on above: Result Comment: Canc elled via OM: Order Changed Performed By: #### L 100.0100, L500.2500 #### [facility] [address] [place], [address] Calcium Normal 7.6-11.0 [facility] Comment on above: Result Comment: Canc elled via OM: Order Changed Performed By: #### L 100.0100, L500.2500 #### [facility] [address] [place], [address] CL Normal 98-108 [facility] Comment on above: Result Comment: Canc elled via OM: Order Changed Performed By: #### L 100.0100, L500.2500 #### [facility] [address] [place], [address] CO2 Normal 21.0-32.0 [facility] Comment on above: Result Comment: Canc elled via OM: Order Changed Performed By: #### L 100.0100, L500.2500 #### [facility] [address] [place], [address] CREAT,SERUM Normal 0.70-1.20 [facility] Comment on above: Result Comment: Canc elled via OM: Order Changed Performed By: #### L 100.0100, L500.2500 #### [facility] [address] [place], [address] eGFR Normal >60 [facility] Comment on above: Result Comment: Canc elled via OM: Order Changed Performed By: #### L 100.0100, L500.2500 #### [facility] [address] [place], [address] GAP Normal 5-15 [facility] Comment on above: Result Comment: Canc elled via OM: Order Changed Performed By: #### L 100.0100, L500.2500 #### [facility] [address] [place], [address] GLU Normal 70-99 [facility] Comment on above: Result Comment: Canc elled via OM: Order Changed Performed By: #### L 100.0100, L500.2500 #### [facility] [address] [place], [address] Potassium Normal 3.3-5.1 [facility] Comment on above: Result Comment: Canc elled via OM: Order Changed Performed By: #### L 100.0100, L500.2500 #### [facility] [address] [place], [address] Basic Metabolic Profile (BMP) Normal 133-145 [facility] Comment on above: Result Comment: Canc elled via OM: Order Changed Performed By: #### L 100.0100, L500.2500 #### [facility] [address] [place], [address] Basophil percentageOrdered B y: Rey Henao on 03-13-2025 Basophils/100 WBC (Bld) 0.4 % 0-1 [facility] Blood urea nitrogen (BUN)/cr eatinine ratioOrdered By: Rey Henao on 03-13-2025 Urea nitrogen/Creatinine [Mass ratio] 43.2 mg/mg High 10-20 [facility] CBC W/Diff, Automatedon -0 Absolute Neut Normal 2.0-7.7 [facility] Comment on above: Result Comment: Canc elled via OM: Order edited - Discontinuing original order Performed By: #### L 100.0100, L500.2500 #### [facility] [address] [place], [address] HCT Normal 40-54 [facility] Comment on above: Result Comment: Canc elled via OM: Order edited - Discontinuing original order Performed By: #### L 100.0100, L500.2500 #### [facility] [address] [place], [address] HGB Normal 13.0-16.5 [facility] Comment on above: Result Comment: Canc elled via OM: Order edited - Discontinuing original order Performed By: #### L 100.0100, L500.2500 #### [facility] [address] [place], [address] MCH Normal 27.0-32.0 [facility] Comment on above: Result Comment: Canc elled via OM: Order edited - Discontinuing original order Performed By: #### L 100.0100, L500.2500 #### [facility] [address] [place], [address] MCHC Normal 32-36 [facility] Comment on above: Result Comment: Canc elled via OM: Order edited - Discontinuing original order Performed By: #### L 100.0100, L500.2500 #### [facility] [address] [place], [address] MCV Normal 80-94 [facility] Comment on above: Result Comment: Canc elled via OM: Order edited - Discontinuing original order Performed By: #### L 100.0100, L500.2500 #### [facility] [address] [place], [address] NEUT% Normal 47-70 [facility] Comment on above: Result Comment: Canc elled via OM: Order edited - Discontinuing original order Performed By: #### L 100.0100, L500.2500 #### [facility] [address] [place], [address] PLT Normal 150-450 [facility] Comment on above: Result Comment: Canc elled via OM: Order edited - Discontinuing original order Performed By: #### L 100.0100, L500.2500 #### [facility] [address] [place], [address] RBC Normal 4.6-6.2 [facility] Comment on above: Result Comment: Canc elled via OM: Order edited - Discontinuing original order Performed By: #### L 100.0100, L500.2500 #### [facility] [address] [place], [address] RDW CV Normal 11.6-14.6 [facility] Comment on above: Result Comment: Canc elled via OM: Order edited - Discontinuing original order Performed By: #### L 100.0100, L500.2500 #### [facility] [address] [place], [address] RDW SD Normal 35.1-43.9 [facility] Comment on above: Result Comment: Canc elled via OM: Order edited - Discontinuing original order Performed By: #### L 100.0100, L500.2500 #### [facility] [address] [place], [address] WBC Normal 4.4-11.0 [facility] Comment on above: Result Comment: Canc elled via OM: Order edited - Discontinuing original order Performed By: #### L 100.0100, L500.2500 #### [facility] [address] [place], [address] Absolute Lymph 1.29 X10 3/uL Normal 0.83-4.51 [facility] Comment on above: Performed By: #### L 506.1001, L500.4050, L501.9520, L501.9985, L100.0100 #### [facility] [address] [place], [address] Absolute Neut 6.5 X10 3/uL Normal 2.0-7.7 [facility] Comment on above: Performed By: #### L 506.1001, L500.4050, L501.9520, L501.9985, L100.0100 #### [facility] [address] [place], [address] Basophils/100 WBC (Bld) 0.4 % Normal 0-1 [facility] Comment on above: Performed By: #### L 506.1001, L500.4050, L501.9520, L501.9985, L100.0100 #### [facility] [address] [place], [address] Eosinophils/100 WBC (Bld) 2.2 % Normal 0-5 [facility] Comment on above: Performed By: #### L 506.1001, L500.4050, L501.9520, L501.9985, L100.0100 #### [facility] [address] [place], [address] Erythrocyte distribution width (RBC) [Ratio] 12.7 % Normal 11.6-14.6 [facility] Comment on above: Performed By: #### L 506.1001, L500.4050, L501.9520, L501.9985, L100.0100 #### [facility] [address] [place], [address] Hematocrit (Bld) [Volume fraction] 33.6 % Low 40-54 [facility] Comment on above: Performed By: #### L 506.1001, L500.4050, L501.9520, L501.9985, L100.0100 #### [facility] [address] [place], [address] Hemoglobin (Bld) [Mass/Vol] 11.6 g/dL Low 13.0-16.5 [facility] Comment on above: Performed By: #### L 506.1001, L500.4050, L501.9520, L501.9985, L100.0100 #### [facility] [address] [place], [address] IG% 0.300 Normal 0.0-0.9 [facility] Comment on above: Result Comment: IG% - Immature Granulocytes (promyelocytes, myelocytes and metamyelocytes) > 1% indicates that a LEFT SHIFT is Present. Performed By: #### L 506.1001, L500.4050, L501.9520, L501.9985, L100.0100 #### [facility] [address] [place], [address] Lymphocytes/100 WBC (Bld) 13.7 % Low 19-41 [facility] Comment on above: Performed By: #### L 506.1001, L500.4050, L501.9520, L501.9985, L100.0100 #### [facility] [address] [place], [address] MCH (RBC) [Entitic mass] 31.8 pg Normal 27.0-32.0 [facility] Comment on above: Performed By: #### L 506.1001, L500.4050, L501.9520, L501.9985, L100.0100 #### [facility] [address] [place], [address] MCHC (RBC) [Mass/Vol] 34.5 g/dL Normal 32-36 [facility] Comment on above: Performed By: #### L 506.1001, L500.4050, L501.9520, L501.9985, L100.0100 #### [facility] [address] [place], [address] MCV (RBC) [Entitic vol] 92.1 fL Normal 80-94 [facility] Comment on above: Performed By: #### L 506.1001, L500.4050, L501.9520, L501.9985, L100.0100 #### [facility] [address] [place], [address] Monocytes/100 WBC (Bld) 14.3 % High 0-10 [facility] Comment on above: Performed By: #### L 506.1001, L500.4050, L501.9520, L501.9985, L100.0100 #### [facility] [address] [place], [address] Neutrophils/100 WBC (Bld) 69.1 % Normal 47-70 [facility] Comment on above: Performed By: #### L 506.1001, L500.4050, L501.9520, L501.9985, L100.0100 #### [facility] [address] [place], [address] Nucleated RBC (Bld) [#/Vol] 0 10*3/uL Normal 0-5 [facility] Comment on above: Performed By: #### L 506.1001, L500.4050, L501.9520, L501.9985, L100.0100 #### [facility] [address] [place], [address] Platelet mean volume (Bld) [Entitic vol] 10.4 fL Normal 6.2-12.0 [facility] Comment on above: Performed By: #### L 506.1001, L500.4050, L501.9520, L501.9985, L100.0100 #### [facility] [address] [place], [address] Platelets (Bld) [#/Vol] 240 10*3/uL Normal 150-450 [facility] Comment on above: Performed By: #### L 506.1001, L500.4050, L501.9520, L501.9985, L100.0100 #### [facility] [address] [place], [address] RBC (Bld) [#/Vol] 3.65 10*6/uL Low 4.6-6.2 [facility] Comment on above: Performed By: #### L 506.1001, L500.4050, L501.9520, L501.9985, L100.0100 #### [facility] [address] [place], [address] RDW SD 43.3 fl Normal 35.1-43.9 [facility] Comment on above: Performed By: #### L 506.1001, L500.4050, L501.9520, L501.9985, L100.0100 #### [facility] [address] [place], [address] WBC (Bld) [#/Vol] 9.5 10*3/uL Normal 4.4-11.[address] [facility] Comment on above: Performed By: #### L 506.1001, L500.4050, L501.9520, L501.9985, L100.0100 #### [facility] [address] [place], [address] Absolute Neut Normal 2.0-7.7 [facility] Comment on above: Result Comment: Canc elled via OM: Order Changed Performed By: #### L 100.0100, L500.2500 #### [facility] [address] [place], [address] HCT Normal 40-54 [facility] Comment on above: Result Comment: Canc elled via OM: Order Changed Performed By: #### L 100.0100, L500.2500 #### [facility] [address] [place], [address] HGB Normal 13.0-16.5 [facility] Comment on above: Result Comment: Canc elled via OM: Order Changed Performed By: #### L 100.0100, L500.2500 #### [facility] [address] [place], [address] MCH Normal 27.0-32.0 [facility] Comment on above: Result Comment: Canc elled via OM: Order Changed Performed By: #### L 100.0100, L500.2500 #### [facility] [address] [place], [address] MCHC Normal 32-36 [facility] Comment on above: Result Comment: Canc elled via OM: Order Changed Performed By: #### L 100.0100, L500.2500 #### [facility] [address] [place], [address] MCV Normal 80-94 [facility] Comment on above: Result Comment: Canc elled via OM: Order Changed Performed By: #### L 100.0100, L500.2500 #### [facility] [address] [place], [address] NEUT% Normal 47-70 [facility] Comment on above: Result Comment: Canc elled via OM: Order Changed Performed By: #### L 100.0100, L500.2500 #### [facility] [address] [place], [address] PLT Normal 150-450 [facility] Comment on above: Result Comment: Canc elled via OM: Order Changed Performed By: #### L 100.0100, L500.2500 #### [facility] [address] [place], [address] RBC Normal 4.6-6.2 [facility] Comment on above: Result Comment: Canc elled via OM: Order Changed Performed By: #### L 100.0100, L500.2500 #### [facility] [address] [place], [address] RDW CV Normal 11.6-14.6 [facility] Comment on above: Result Comment: Canc elled via OM: Order Changed Performed By: #### L 100.0100, L500.2500 #### [facility] [address] [place], [address] RDW SD Normal 35.1-43.9 [facility] Comment on above: Result Comment: Canc elled via OM: Order Changed Performed By: #### L 100.0100, L500.2500 #### [facility] [address] [place], [address] WBC Normal 4.4-11.0 [facility] Comment on above: Result Comment: Canc elled via OM: Order Changed Performed By: #### L 100.0100, L500.2500 #### [facility] [address] [place], [address] Carbon dioxide measurementOr dered By: Rey Henao on 03-13-2025 CO2 [Moles/Vol] 23.0 mmol/L 21.0-32.0 [facility] Chloride assayOrdered By: Andrews Henao on 03-13-2025 Chloride [Moles/Vol] 101 mmol/L 98-108 [facility] Eosinophil percentageOrdered By: Rey Henao on 03-13-2025 Eosinophils/100 WBC (Bld) 2.2 % 0-5 [facility] Erythrocyte distribution wid th ratioOrdered By: Rey Henao on 03-13-2025 Erythrocyte distribution width (RBC) [Ratio] 12.7 % 11.6-14.6 [facility] Erythrocyte distribution wid th standard deviationOrdered By: Rey Henao on 03-13-2025 Erythrocyte distribution width (RBC) [Ratio] 43.3 fl 35.1-43.9 [facility] Glomerular filtration rate ( GFR) estimation/1.73 sq m using serum, plasma, or whole bOrdered By: Rey Henao on 03-13-2025 GFR/1.73 sq M.predicted among non-blacks MDRD (S/P/Bld) [Vol rate/Area] 109 mL/min/{1.73_m2} >60 [facility] Comment on above: mL/min/1.73m2 CKD-EP I Creatinine Equation (2020) Hematocrit Auto (Bld) [Volum e fraction]Ordered By: Rey Henao on 03-13-2025 Hematocrit (Bld) [Volume fraction] 33.6 % Low 40-54 [facility] Hemoglobin measurementOrdere d By: Rey Henao on 03-13-2025 Hemoglobin (Bld) [Mass/Vol] 11.6 g/dL Low 13.0-16.5 [facility] Immature granulocytes/100 WB C Auto (Bld)Ordered By: Rey Henao on 03-13-2025 Immature granulocytes/100 WBC (Bld) 0.300 % 0.0-0.9 [facility] Comment on above: IG% - Immature Granu locytes (promyelocytes, myelocytes and metamyelocytes) > 1% indicates that a LEFT SHIFT is Present. MCV (mean corpuscular volume ) determinationOrdered By: Rey Henao on 03-13-2025 MCV (RBC) [Entitic vol] 92.1 fL 80-94 [facility] Mean corpuscular hemoglobin (MCH) determinationOrdered By: Rey Henao 03-13-2025 MCH (RBC) [Entitic mass] 31.8 pg 27.0-32.0 [facility] Mean corpuscular hemoglobin concentration (MCHC) determinationOrdered By: Rey Henao 03-13-2025 MCHC (RBC) [Mass/Vol] 34.5 g/dL 32-36 [facility] Mean platelet volume determi nationOrdered By: Rey Henao on 03-13-2025 Platelet mean volume (Bld) [Entitic vol] 10.4 fL 6.2-12.0 [facility] Monocyte percentageOrdered B y: Rey Henao on 03-13-2025 Monocytes/100 WBC (Bld) 14.3 % High 0-10 [facility] Neutrophil percentageOrdered By: Rey Henao on 03-13-2025 Neutrophils/100 WBC (Bld) 69.1 % 47-70 [facility] Nucleated red blood cell per centageOrdered By: Rey Henao on 03-13-2025 Nucleated RBC/100 WBC (Bld) [Ratio] 0 % 0-5 [facility] Platelet countOrdered By: Andrews Henao on 03-13-2025 Platelets (Bld) [#/Vol] 240 10*3/uL 150-450 [facility] Potassium measurement (mass/ volume)Ordered By: Rey Henao on 03-13-2025 Potassium (Unsp spec) [Mass/Vol] 4.2 mmol/L 3.3-5.1 [facility] RBC Auto (Bld) [#/Vol]Ordere d By: Rey Henao on 03-13-2025 RBC (Bld) [#/Vol] 3.65 10*6/uL Low 4.6-6.2 [facility] Serum creatinine measurement (mass/volume)Ordered By: Rey Henao on 03-13-2025 Creatinine [Mass/Vol] 0.37 mg/dL Low 0.70-1.20 [facility] Serum glucose measurement (m ass/volume)Ordered By: Rey Henao on 03-13-2025 Glucose [Mass/Vol] 129 mg/dL High 70-[address] [facility] Serum or plasma calcium marialuisa urement (mass/volume)Ordered By: Rey Henao on 03-13-2025 Calcium [Mass/Vol] 8.6 mg/dL 7.6-11.[address] [facility] Serum or plasma urea nitroge n measurement (mass/volume)Ordered By: Rey Henao on 03-13-2025 Urea nitrogen [Mass/Vol] 16 mg/dL 4-19 [facility] Sodium levelOrdered By: Rey Henao on 03-13-2025 Sodium [Moles/Vol] 132 mmol/L Low 133-[address] [facility] White blood cell (WBC) count Ordered By: Rey Henao on 03-13-2025 WBC (Bld) [#/Vol] 9.5 10*3/uL 4.4-11.[address] [facility] CNPDionne 03-10-2025 MARIA GUADALUPE Telephone (AGCARDPOB ) JEANIE RANKIN ([id number]) 1940 M Date Time Provider Department 03/10/25 JOSE DAVIS During your visit today, we recorded the following information about you: Jose Davis APRN.ALINE 03/10/2025 3:32 PM Signed Pt was recently seen in the hospital for abnormal stress. Please reach out to patient to schedule follow up visit with Dr. Brito or RUI. Patient should be seen in 6-8 weeks. Thanks Jose Davis APRN.[employer] Uzma Garcia 03/11/2025 2:49 PM Signed Pt scheduled 05/05/2025 with Reta Fraire Message left with appt day/time Letter sent Uzma Garcia Allergies As of Date: 03/10/2025 Noted Allergy Reaction ADHESIVE 03/18/2009 NEOSPORIN (HYXWFZAR-[id number]-GF*08/0 07/2005 2 - Rash 9 - Itching [...] OSTEOPOROSIS [M81.8] 10/20/2005 MYALGIA AND MYOSITIS NOS [[id number]] 10/20/2005 ANEMIA NOS [D64.9] 08/02/2006 BENIGN NEOPLASM [...] Encounter Status:Closed by UZMA GARCIA on 03/11/25 [facility] ANES POSTPROC EVALon 025 ANES POSTPROC EVAL HNO ID: [id number] Author: NAYA AGUILERA MD Service: Anesthesiology Author [...] March 06, 2025 TIME: 6:41 AM CSN: [id number] Normal [facility] Basic Metabolic Profile (BMP )on 03-06-2025 BUN/CRE 46.6 RATIO High 02-23 [facility] Comment on above: Performed By: #### L 100.0100, L500.2500 #### [facility] [address] [facility] [address] Calcium [Mass/Vol] 8.7 mg/dL Normal 7.6-11.[address] [facility] Comment on above: Performed By: #### L 100.0100, L500.2500 #### [facility] [address] [facility] [address] Chloride [Moles/Vol] 103 mmol/L Normal 98-108 [facility] Comment on above: Performed By: #### L 100.0100, L500.2500 #### [facility] [address] [place], [address] CO2 [Moles/Vol] 27.5 mmol/L Normal 21.0-32.0 [facility] Comment on above: Performed By: #### L 100.0100, L500.2500 #### [facility] [address] [place], [address] Creatinine [Mass/Vol] 0.35 mg/dL Low 0.70-1.20 [facility] Comment on above: Performed By: #### L 100.0100, L500.2500 #### [facility] [address] [place], [address] ECRCL 59.81 ml/min Normal 50-250 [facility] Comment on above: Performed By: #### L 100.0100, L500.2500 #### [facility] [address] [place], [address] GAP 6 Normal 5-15 [facility] Comment on above: Performed By: #### L 100.0100, L500.2500 #### [facility] [address] [place], [address] GFR/1.73 sq M.predicted among non-blacks MDRD (S/P/Bld) [Vol rate/Area] 110 mL/min/{1.73_m2} Normal >60 [facility] Comment on above: Result Comment: mL/m in/1.73m2 CKD-EPI Creatinine Equation (2020) Performed By: #### L 100.0100, L500.2500 #### [facility] [address] [place], [address] Glucose [Mass/Vol] 98 mg/dL Normal 70-[address] [facility] Comment on above: Performed By: #### L 100.0100, L500.2500 #### [facility] [address] [place], [address] Potassium [Moles/Vol] 4.2 mmol/L Normal 3.3-5.1 [facility] Comment on above: Performed By: #### L 100.0100, L500.2500 #### [facility] [address] [place], [address] Sodium [Moles/Vol] 136 mmol/L Normal 133-[address] [facility] Comment on above: Performed By: #### L 100.0100, L500.2500 #### [facility] [address] [place], [address] Urea nitrogen [Mass/Vol] 17 mg/dL Normal 4-19 [facility] Comment on above: Performed By: #### L 100.0100, L500.2500 #### [facility] [address] [place], [address] CBC W/Diff, Automatedon 10-3 Absolute Lymph 1.77 X10 3/uL Normal 0.83-4.51 [facility] Comment on above: Performed By: #### L 100.0100, L500.2500 #### [facility] [address] [place], [address] Absolute Neut 3.4 X10 3/uL Normal 2.0-7.7 [facility] Comment on above: Performed By: #### L 100.0100, L500.2500 #### [facility] [address] [place], [address] Basophils/100 WBC (Bld) 0.5 % Normal 0-1 [facility] Comment on above: Performed By: #### L 100.0100, L500.2500 #### [facility] [address] [place], [address] Eosinophils/100 WBC (Bld) 1.8 % Normal 0-5 [facility] Comment on above: Performed By: #### L 100.0100, L500.2500 #### [facility] [address] [place], [address] Erythrocyte distribution width (RBC) [Ratio] 12.4 % Normal 11.6-14.6 [facility] Comment on above: Performed By: #### L 100.0100, L500.2500 #### [facility] [address] [place], [address] Hematocrit (Bld) [Volume fraction] 34.0 % Low 40-54 [facility] Comment on above: Performed By: #### L 100.0100, L500.2500 #### [facility] [address] [place], [address] Hemoglobin (Bld) [Mass/Vol] 11.4 g/dL Low 13.0-16.5 [facility] Comment on above: Performed By: #### L 100.0100, L500.2500 #### [facility] [address] [place], [address] IG% 0.300 Normal 0.0-0.9 [facility] Comment on above: Result Comment: IG% - Immature Granulocytes (promyelocytes, myelocytes and metamyelocytes) > 1% indicates that a LEFT SHIFT is Present. Performed By: #### L 100.0100, L500.2500 #### [facility] [address] [place], [address] Lymphocytes/100 WBC (Bld) 27.0 % Normal 19-41 [facility] Comment on above: Performed By: #### L 100.0100, L500.2500 #### [facility] [address] [place], [address] MCH (RBC) [Entitic mass] 31.2 pg Normal 27.0-32.0 [facility] Comment on above: Performed By: #### L 100.0100, L500.2500 #### [facility] [address] [place], [address] MCHC (RBC) [Mass/Vol] 33.5 g/dL Normal 32-36 [facility] Comment on above: Performed By: #### L 100.0100, L500.2500 #### [facility] [address] [place], [address] MCV (RBC) [Entitic vol] 93.2 fL Normal 80-94 [facility] Comment on above: Performed By: #### L 100.0100, L500.2500 #### [facility] [address] [place], [address] Monocytes/100 WBC (Bld) 18.9 % High 0-10 [facility] Comment on above: Performed By: #### L 100.0100, L500.2500 #### [facility] [address] [place], [address] Neutrophils/100 WBC (Bld) 51.5 % Normal 47-70 [facility] Comment on above: Performed By: #### L 100.0100, L500.2500 #### [facility] [address] [place], [address] Nucleated RBC (Bld) [#/Vol] 0 10*3/uL Normal 0-5 [facility] Comment on above: Performed By: #### L 100.0100, L500.2500 #### [facility] [address] [place], [address] Platelet mean volume (Bld) [Entitic vol] 10.9 fL Normal 6.2-12.0 [facility] Comment on above: Performed By: #### L 100.0100, L500.2500 #### [facility] [address] [place], [address] Platelets (Bld) [#/Vol] 201 10*3/uL Normal 150-450 [facility] Comment on above: Performed By: #### L 100.0100, L500.2500 #### [facility] [address] [place], [address] RBC (Bld) [#/Vol] 3.65 10*6/uL Low 4.6-6.2 [facility] Comment on above: Performed By: #### L 100.0100, L500.2500 #### [facility] [address] [place], [address] RDW SD 42.7 fl Normal 35.1-43.9 [facility] Comment on above: Performed By: #### L 100.0100, L500.2500 #### [facility] [address] [place], [address] WBC (Bld) [#/Vol] 6.6 10*3/uL Normal 4.4-11.[address] [facility] Comment on above: Performed By: #### L 100.0100, L500.2500 #### [facility] [address] [place], [address] CNPDionne 03-06-2025 [facility] Telephone (AGGENS4) JEANIE RANKIN ([id number]) 1940 M Date Time Provider Department 03/06/25 [...] 03/06/2025 Noted Allergy Reaction ADHESIVE 03/18/2009 NEOSPORIN (JMDHNRTB-[id number]-FY*08/0 07/2005 2 - Rash 9 - Itching [...] OSTEOPOROSIS [M81.8] 10/20/2005 MYALGIA AND MYOSITIS NOS [[id number]] 10/20/2005 ANEMIA NOS [D64.9] 08/02/2006 BENIGN NEOPLASM [...] Anion gap [Moles/Vol] 9 mmol/L Normal 8-15 [facility] Comment on above: Order Comment: Speci men Type: BLOOD SPECIMEN Ordering Facility: [facility] Address: [address] [place] [address] Performed By: #### 2 777-1, 76981-1, #### [facility] CLIA [id number] [address] [place] [address] [place] Calcium [Mass/Vol] 8.3 mg/dL Low 8.5-10.2 [facility] Comment on above: Order Comment: Speci men Type: BLOOD SPECIMEN Ordering Facility: [facility] Address: [address] [place] [address] Performed By: #### 2 777-1, 16138-5, #### [facility] CLIA [id number] [address] [place] [address] [place] Chloride [Moles/Vol] 102 mmol/L Normal 98-107 [facility] Comment on above: Order Comment: Speci men Type: BLOOD SPECIMEN Ordering Facility: [facility] Address: [address] [place] [address] Performed By: #### 2 777-1, , #### [facility] CLIA [id number] [address] [place] [address] [place] CO2 [Moles/Vol] 25 mmol/L Normal 22-30 [facility] Comment on above: Order Comment: Speci men Type: BLOOD SPECIMEN Ordering Facility: [facility] Address: [address] [place] [address] Performed By: #### 2 777-1, , #### [facility] CLIA [id number] [address] [place] Creatinine [Mass/Vol] 0.35 mg/dL Low 0.73-1.22 [facility] Comment on above: Order Comment: Speci men Type: BLOOD SPECIMEN Ordering Facility: [facility] Address: [address] [place] [address] Performed By: #### 2 777-1, , #### [facility] CLIA [id number] [address] [place] eGFRcr SerPlBld CKD-EPI 2020 111 mL/min/1.73m??? Normal >=60 [facility] Comment on above: Order Comment: Speci men Type: BLOOD SPECIMEN Ordering Facility: [facility] Address: [address] [place] [address] Result Comment: Genet mated Glomerular Filtration Rate [...] #### [facility] CLIA [id number] [address] [place] Glucose [Mass/Vol] 126 mg/dL High 74-99 [facility] Comment on above: Order Comment: Speci men Type: BLOOD SPECIMEN Ordering Facility: [facility] Address: [address] [place], [place] [address] Result Comment: The [place] [employer] (ADA) provides guidance for cutoff [...] Standards of Medical Care in Diabetes 2016, [place] [employer]. Diabetes Care. 2016.39(Suppl 1). Performed By: #### 2 777-1, 14255-3, #### [employer] [facility] CLIA [id number] [address] [place] [address] [place] Potassium [Moles/Vol] 5.0 mmol/L Normal 3.7-5.1 [facility] Comment on above: Order Comment: Melia zuluaga Type: BLOOD SPECIMEN Ordering Facility: [facility] Address: [address] [place], [place] [address] Performed By: #### 2 777-1, , #### [facility] [facility] CLIA [id number] [address] [place] [address] [place] Sodium [Moles/Vol] 136 mmol/L Normal 136-144 [facility] Comment on above: Order Comment: Melia zuluaga Type: BLOOD SPECIMEN Ordering Facility: [facility] Address: [address] [place], [place] [address] Performed By: #### 2 777-1, , #### [employer] [facility] CLIA [id number] [address] [place] [address] [place] Urea nitrogen [Mass/Vol] 15 mg/dL Normal 9-24 [facility] Comment on above: Order Comment: Melia zuluaga Type: BLOOD SPECIMEN Ordering Facility: [facility] Address: [address] [place] [address] Performed By: #### 2 777-1, 15980-9, 13967-1 #### [facility] CLIA [id number] [address] [place] [address] [place] CBC W Auto Differential pane l (Bld)on 03-05-2025 Basophils (Bld) [#/Vol] 10*3/uL Normal <0.11 [facility] Comment on above: Order Comment: Speci men Type: BLOOD SPECIMEN Ordering Facility: [facility] Address: [address] [place] [address] Performed By: #### 5 8410-2 #### [facility] CLIA [id number] [address] [place] Basophils/100 WBC (Bld) 0.2 % Normal [facility] Comment on above: Order Comment: Speci men Type: BLOOD SPECIMEN Ordering Facility: [facility] Address: [address] [place] [address] Performed By: #### 5 8410-2 #### [facility] CLIA [id number] [address] Differential cell count method Nom (Bld) Auto Normal [facility] Comment on above: Order Comment: Speci men Type: BLOOD SPECIMEN Ordering Facility: [facility] Address: [address] [place] [address] Performed By: #### 5 8410-2 #### [facility] CLIA [id number] [address] [place] Eosinophils (Bld) [#/Vol] 10*3/uL Normal <0.46 [facility] Comment on above: Order Comment: Speci men Type: BLOOD SPECIMEN Ordering Facility: [facility] Address: [address] [place] [address] Performed By: #### 5 8410-2 #### [facility] CLIA [id number] [address] [place] Eosinophils/100 WBC (Bld) 0.0 % Normal [facility] Comment on above: Order Comment: Speci men Type: BLOOD SPECIMEN Ordering Facility: [facility] Address: [address] [place] [address] Performed By: #### 5 8410-2 #### [facility] CLIA [id number] [address] Erythrocyte distribution width (RBC) [Ratio] 12.3 % Normal 11.5-15.0 [facility] Comment on above: Order Comment: Speci men Type: BLOOD SPECIMEN Ordering Facility: [facility] Address: [address] [place] [address] Performed By: #### 5 8410-2 #### [facility] CLIA [id number] [address] [place] Hematocrit (Bld) [Volume fraction] 38.2 % Low 39.0-51.0 [facility] Comment on above: Order Comment: Speci men Type: BLOOD SPECIMEN Ordering Facility: [facility] Address: [address] [place] [address] Performed By: #### 5 8410-2 #### [facility] CLIA [id number] [address] [place] Hemoglobin (Bld) [Mass/Vol] 12.8 g/dL Low 13.0-17.0 [facility] Comment on above: Order Comment: Speci men Type: BLOOD SPECIMEN Ordering Facility: [facility] Address: [address] [place] [address] Performed By: #### 5 8410-2 #### [facility] CLIA [id number] [address] [place] Immature granulocytes (Bld) [#/Vol] 0.08 10*3/uL Normal <0.10 [facility] Comment on above: Order Comment: Speci men Type: BLOOD SPECIMEN Ordering Facility: [facility] Address: [address] [place] [address] Performed By: #### 5 8410-2 #### [facility] CLIA [id number] [address] Immature granulocytes/100 WBC (Bld) 0.7 % Normal [facility] Comment on above: Order Comment: Speci men Type: BLOOD SPECIMEN Ordering Facility: [facility] Address: [address] [place] [address] Performed By: #### 5 8410-2 #### [facility] CLIA [id number] [address] Lymphocytes (Bld) [#/Vol] 0.82 10*3/uL Low 1.00-4.00 [facility] Comment on above: Order Comment: Speci men Type: BLOOD SPECIMEN Ordering Facility: [facility] Address: [address] [place] [address] Performed By: #### 5 8410-2 #### [facility] CLIA [id number] [address] Lymphocytes/100 WBC (Bld) 7.1 % Normal [facility] Comment on above: Order Comment: Speci men Type: BLOOD SPECIMEN Ordering Facility: [facility] Address: [address] [place] [address] Performed By: #### 5 8410-2 #### [facility] CLIA [id number] [address] MCH (RBC) [Entitic mass] 31.5 pg Normal 26.0-34.0 [facility] Comment on above: Order Comment: Speci men Type: BLOOD SPECIMEN Ordering Facility: [facility] Address: [address] [place] [address] Performed By: #### 5 8410-2 #### [facility] CLIA [id number] [address] MCHC (RBC) [Mass/Vol] 33.5 g/dL Normal 30.5-36.0 [facility] Comment on above: Order Comment: Speci men Type: BLOOD SPECIMEN Ordering Facility: [facility] Address: [address] [place] [address] Performed By: #### 5 8410-2 #### [facility] CLIA [id number] [address] [place] MCV (RBC) [Entitic vol] 94.1 fL Normal 80.0-100.0 [facility] Comment on above: Order Comment: Speci men Type: BLOOD SPECIMEN Ordering Facility: [facility] Address: [address] [place] [address] Performed By: #### 5 8410-2 #### [facility] CLIA [id number] [address] [place] Monocytes (Bld) [#/Vol] 1.40 10*3/uL High <0.87 [facility] Comment on above: Order Comment: Speci men Type: BLOOD SPECIMEN Ordering Facility: [facility] Address: [address] [place] [address] Performed By: #### 5 8410-2 #### [facility] CLIA [id number] [address] [place] Monocytes/100 WBC (Bld) 12.1 % Normal [facility] Comment on above: Order Comment: Speci men Type: BLOOD SPECIMEN Ordering Facility: [facility] Address: [address] [place] [address] Performed By: #### 5 8410-2 #### [facility] CLIA [id number] [address] [place] Neutrophils (Bld) [#/Vol] 9.27 10*3/uL High 1.45-7.50 [facility] Comment on above: Order Comment: Speci men Type: BLOOD SPECIMEN Ordering Facility: [facility] Address: [address] [place] [address] Performed By: #### 5 8410-2 #### [facility] CLIA [id number] [address] [place] Neutrophils/100 WBC (Bld) 79.9 % Normal [facility] Comment on above: Order Comment: Speci men Type: BLOOD SPECIMEN Ordering Facility: [facility] Address: [address] [place] [address] Performed By: #### 5 8410-2 #### [facility] CLIA [id number] [address] Nucleated RBC (Bld) [#/Vol] 10*3/uL Normal <0.01 [facility] Comment on above: Order Comment: Speci men Type: BLOOD SPECIMEN Ordering Facility: [facility] Address: [address] [place] [address] Performed By: #### 5 8410-2 #### [facility] CLIA [id number] [address] [place] Nucleated RBC/100 WBC (Bld) [Ratio] 0.0 /100 WBC Normal [facility] Comment on above: Order Comment: Speci men Type: BLOOD SPECIMEN Ordering Facility: [facility] Address: [address] [place] [address] Performed By: #### 5 8410-2 #### [facility] CLIA [id number] [address] Platelet mean volume (Bld) [Entitic vol] 11.0 fL Normal 9.0-12.7 [facility] Comment on above: Order Comment: Speci men Type: BLOOD SPECIMEN Ordering Facility: [facility] Address: [address] [place] [address] Performed By: #### 5 8410-2 #### [facility] CLIA [id number] [address] [place] Platelets (Bld) [#/Vol] 187 10*3/uL Normal 150-400 [facility] Comment on above: Order Comment: Speci men Type: BLOOD SPECIMEN Ordering Facility: [facility] Address: [address] [place] [address] Performed By: #### 5 8410-2 #### [facility] CLIA [id number] [address] [place] RBC (Bld) [#/Vol] 4.06 10*6/uL Low 4.20-6.00 [facility] Comment on above: Order Comment: Speci men Type: BLOOD SPECIMEN Ordering Facility: [facility] Address: [address] [place] [id number] Performed By: #### 5 8410-2 #### [facility] CLIA [id number] [address] WBC (Bld) [#/Vol] 11.59 10*3/uL High 3.70-11.00 [facility] Comment on above: Order Comment: Melia margareth Type: BLOOD SPECIMEN Ordering Facility: [facility] Address: [address] [place] [id number] Performed By: #### 5 8410-2 #### [facility] CLIA [id number] [address] CNDSon 03-05-2025 CNDS HNO ID: [id number] Author: ANNE STUBBS DO Service: General Surgery [...] Attending Provider: Jose Hayes MD Primary Service: [facility] Attending: Deisi Villalta MD Consulting: Garry Watts [...] you become constipated, you may use any bfoe-csi-izsvgsk treatment such as Milk of Magnesia, Sennakot, [...] THERAPY NTon 03-05-2025 THERAPY NT HNO ID: [id number] Author: CUCA PEREZ PT Service: Physical Therapy Author Type: Physical Therapist Type: Therapy (PT/OT/Speech/Resp) Filed: 03/05/2025 10:08 Note Text: Physical Therapy Treatment Summary SERVICE DATE: 03/05/2025 SERVICE TIME: 900 to 936 ROOM: [id number] PT 6 Clicks Score: 9 DISCHARGE RECOMMENDATIONS [...] Fall Risk CURRENT HOSPITAL COURSE presented to [facility] with abdominal pain, nausea and vomitting--found [...] and mobility-other TREATMENT INTERVENTIONS Reevaluation, Therapeutic Exercise (44547), Therapeutic Activity (06905) Timed Code Treatment (minutes): 10 Skilled Treatment Time (minutes): 34 $ Reevaluation (83011) Billed Units: 1 unit Therapeutic Exercise (27179) Treatment Minutes: 8 $ Therapeutic Exercise (05362) Billed Units: 1 unit Bilateral LE anti-gravity exercises. Patient needed assist with DF and knee ext as he is unable to complete either. 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 [...] DATE: March 05, 2025 TIME: 10:04 AM [facility] ANES PRE-OPon 03-04-2025 ANES PRE-OP HNO ID: [id number] Author: NAYA AGUILERA MD Service: Anesthesiology Author Type: Physician Type: Anesthesia Preprocedure Evaluation Filed: 03/04/2025 16:31 Note Text: ANESTHESIOLOGY DAY OF SURGERY NOTE : 1940 Procedure Information Anesthesia Start Date/Time: 03/04/25 1508 Procedure: ROBOTIC LAPAROSCOPIC RPR PARAESOHAGEAL HERNIA W/ FUNDOPLASTY W/ MESH (Abdomen) Location: [place] OR / [place] OR Surgeons: Jose Hayes MD Estimated body [...] March 04, 2025 TIME: 4:28 PM CSN: [id number] Normal [facility] Basic metabolic 2000 panelon 03-04-2025 Anion gap [Moles/Vol] 9 mmol/L Normal 8-15 [facility] Comment on above: Order Comment: Speci men Type: BLOOD SPECIMEN Ordering Facility: [facility] Address: [address] [place] [address] Performed By: #### 5 8410-2 #### [facility] CLIA [id number] [address] [place] [address] [place] Calcium [Mass/Vol] 8.9 mg/dL Normal 8.5-10.2 [facility] Comment on above: Order Comment: Speci men Type: BLOOD SPECIMEN Ordering Facility: [facility] Address: [address] [place] [address] Performed By: #### 5 8410-2 #### [facility] CLIA [id number] 1 [place] [address] [place] Chloride [Moles/Vol] 105 mmol/L Normal 98-107 [facility] Comment on above: Order Comment: Speci men Type: BLOOD SPECIMEN Ordering Facility: [facility] Address: [address] [place] [address] Performed By: #### 5 8410-2 #### [facility] CLIA [id number] [address] [place] [address] [place] CO2 [Moles/Vol] 24 mmol/L Normal 22-30 [facility] Comment on above: Order Comment: Speci men Type: BLOOD SPECIMEN Ordering Facility: [facility] Address: [address] [place] [address] Performed By: #### 5 8410-2 #### [facility] CLIA [id number] [address] [place] Creatinine [Mass/Vol] 0.30 mg/dL Low 0.73-1.22 [facility] Comment on above: Order Comment: Melia zuluaga Type: BLOOD SPECIMEN Ordering Facility: [facility] Address: [address] [place] [address] Performed By: #### 5 8410-2 #### [facility] CLIA [id number] [address] [place] eGFRcr SerPlBld CKD-EPI 2020 116 mL/min/1.73m??? Normal >=60 [facility] Comment on above: Order Comment: Melia zuluaga Type: BLOOD SPECIMEN Ordering Facility: [facility] Address: [address] [place] [address] Result Comment: Genet mated Glomerular Filtration Rate [...] GFR. Performed By: #### 5 8410-2 #### [facility] CLIA [id number] [address] [place] Glucose [Mass/Vol] 102 mg/dL High 74-99 [facility] Comment on above: Order Comment: Melia zuluaga Type: BLOOD SPECIMEN Ordering Facility: [facility] Address: [address] [place] [address] Result Comment: The [place] [employer] (ADA) provides guidance for cutoff [...] Standards of Medical Care in Diabetes 2016, [place] [employer]. Diabetes Care. 2016.39(Suppl 1). Performed By: #### 5 8410-2 #### [facility] CLIA [id number] [address] Potassium [Moles/Vol] 4.3 mmol/L Normal 3.7-5.1 [facility] Comment on above: Order Comment: Speci men Type: BLOOD SPECIMEN Ordering Facility: [facility] Address: [facility] [place] [address] Performed By: #### 5 8410-2 #### [facility] CLIA [id number] [address] Sodium [Moles/Vol] 138 mmol/L Normal 136-144 [facility] Comment on above: Order Comment: Speci men Type: BLOOD SPECIMEN Ordering Facility: [facility] Address: [address] [place] [address] Performed By: #### 5 8410-2 #### [facility] CLIA [id number] [address] Urea nitrogen [Mass/Vol] 23 mg/dL Normal 9-24 [facility] Comment on above: Order Comment: Speci men Type: BLOOD SPECIMEN Ordering Facility: [facility] Address: [address] [place] [address] Performed By: #### 5 8410-2 #### [facility] CLIA [id number] [address] CBC panel Auto (Bld)on 03-04 Erythrocyte distribution width (RBC) [Ratio] 12.4 % Normal 11.5-15.0 [facility] Comment on above: Order Comment: Speci men Type: BLOOD SPECIMEN Ordering Facility: [facility] Address: [facility] [place] [address] Performed By: #### 5 8410-2 #### [facility] CLIA [id number] [address] Hematocrit (Bld) [Volume fraction] 36.3 % Low 39.0-51.0 [facility] Comment on above: Order Comment: Speci men Type: BLOOD SPECIMEN Ordering Facility: [facility] Address: [address] [place] [address] Performed By: #### 5 8410-2 #### [facility] CLIA [id number] [address] OF [facility] Hemoglobin (Bld) [Mass/Vol] 12.6 g/dL Low 13.0-17.0 [facility] Comment on above: Order Comment: Speci men Type: BLOOD SPECIMEN Ordering Facility: [facility] Address: [address] [place] [address] Performed By: #### 5 8410-2 #### [facility] CLIA [id number] [address] STATES OF [facility] MCH (RBC) [Entitic mass] 31.9 pg Normal 26.0-34.0 [facility] Comment on above: Order Comment: Speci men Type: BLOOD SPECIMEN Ordering Facility: [facility] Address: [address] [place] [address] Performed By: #### 5 8410-2 #### [facility] CLIA [id number] [address] STATES OF [facility] MCHC (RBC) [Mass/Vol] 34.7 g/dL Normal 30.5-36.0 [facility] Comment on above: Order Comment: Speci men Type: BLOOD SPECIMEN Ordering Facility: [facility] Address: [address] [place] [address] Performed By: #### 5 8410-2 #### [facility] CLIA [id number] [address] [place] MCV (RBC) [Entitic vol] 91.9 fL Normal 80.0-100.0 [facility] Comment on above: Order Comment: Speci men Type: BLOOD SPECIMEN Ordering Facility: [facility] Address: [address] [place] [address] Performed By: #### 5 8410-2 #### [facility] CLIA [id number] [address] [place] Nucleated RBC (Bld) [#/Vol] 10*3/uL Normal <0.01 [facility] Comment on above: Order Comment: Speci men Type: BLOOD SPECIMEN Ordering Facility: [facility] Address: [address] [place] [address] Performed By: #### 5 8410-2 #### [facility] CLIA [id number] [address] [place] Platelet mean volume (Bld) [Entitic vol] 11.0 fL Normal 9.0-12.7 [facility] Comment on above: Order Comment: Speci men Type: BLOOD SPECIMEN Ordering Facility: [facility] Address: [address] [place] [address] Performed By: #### 5 8410-2 #### [facility] CLIA [id number] [address] [place] Platelets (Bld) [#/Vol] 181 10*3/uL Normal 150-400 [facility] Comment on above: Order Comment: Speci men Type: BLOOD SPECIMEN Ordering Facility: [facility] Address: [address] [place] [address] Performed By: #### 5 8410-2 #### [facility] CLIA [id number] [address] [place] RBC (Bld) [#/Vol] 3.95 10*6/uL Low 4.20-6.00 [facility] Comment on above: Order Comment: Speci men Type: BLOOD SPECIMEN Ordering Facility: [facility] Address: [address] [place] [address] Performed By: #### 5 8410-2 #### [facility] CLIA [id number] [address] [place] WBC (Bld) [#/Vol] 5.84 10*3/uL Normal 3.70-11.00 [facility] Comment on above: Order Comment: Speci men Type: BLOOD SPECIMEN Ordering Facility: [facility] Address: [address] [place], [place] [address] [address] Performed By: #### 5 8410-2 #### [facility] [id number] [address] [place] [address] [place] CONSULT PROGon 03-04-2025 CONSULT PROG HNO ID: [id number] Author: BLAINE CASIANO MD Service: General Surgery [...] questions or concerns Mon-Fri 6a-5p please page [phone]. After 5pm and on Weekends and Holidays, please page [phone]. SUBJECTIVE: NAEON. Patient denies any nausea or [...] - 03/04/2565803/04/25 07 - 03/05/25 0659 Shift 0563-7141 2545-9114 4673-1089 24 Hour Total 8984-5467 9488-6024 6452-2060 24 Hour Total INTAKE PO 120 120 PO 120 120 Shift Total 120 120 OUTPUT Urine 505 803 3381 Void (ml) 510 761 5333 Urine Not Saved. 1 x 1 x # of BMs Stool Incontinence 1 x 1 x Number of BMs 0 x 0 x Shift Total 561 413 2340 Weight (kg) 64.2 64.2 64.2 64.2 64.2 [...] 03-04 Magnesium [Mass/Vol] 1.8 mg/dL Normal 1.7-2.3 [facility] Comment on above: Order Comment: Speci men Type: BLOOD SPECIMEN Ordering Facility: [facility] Address: [facility] [place] [address] Performed By: #### 2 777-1, 94927-5, 51970-5 #### [facility] CLIA [id number] [address] [place] OPERATIVE NOon 03-04-2025 OPERATIVE NO HNO ID: [id number] Author: JOSE HAYES MD Service: General Surgery Author Type: Physician Type: Operative Report Filed: 03/04/2025 17:57 Note Text: OPERATIVE/PROCEDURE REPORT LOG ID: [id number] Surgery/Procedure Date: 03/04/2025 Incision/Procedure Start Time: 3:42 PM Incision Close/Procedure End Time: 5:57 PM Surgeon(s)/Proceduralist(s) and Retail Administrative Assistant(s): Surgeons and Role: * Jose Hayes MD - Primary * Scott Yoo MD - Resident - Assisting Admissions Evaluator: Monse Serrano SA Procedure(s): 1.- Robotic assisted [...] and it was 12 cm. A 40 [place] VISIGI bougie had been previously placed into [...] 03-04 Phosphate [Mass/Vol] 2.9 mg/dL Normal 2.7-4.8 [facility] Comment on above: Order Comment: Speci men Type: BLOOD SPECIMEN Ordering Facility: [facility] Address: [address] [place] [address] Performed By: #### 2 777-1, 41247-8, 51720-5 #### [facility] CLIA [id number] [address] [place] [address] OF [facility] THERAPY NTon 03-04-2025 THERAPY NT HNO ID: [id number] Author: MIGUEL CARDENAS CCC-SLP Service: Speech/Swallow Author Type: Speech Language Pathologist Type: Therapy (PT/OT/Speech/Resp) Filed: 03/04/2025 08:49 Note Text: SPEECH THERAPY MISSED VISIT SERVICE DATE: 03/04/2025 SERVICE TIME: 848 ROOM: [place] [address] Patient not seen due to Test / Procedure: OR. Will re-attempt speech/swallowing therapy at a later date/time. SIGNATURE: IDA Tam PATIENT NAME: Jeanie Rankin DATE: March 04, 2025 TIME: 8:49 AM Normal [facility] ALLIED HEALTHon 03-03-2025 ALLIED HEALTH HNO ID: [id number] Author: TIMMY CHAHAL Chaplain Service: Spiritual Care Author Type: Type: Allied Health Filed: 03/03/2025 17:18 Note Text: SPIRITUAL CARE PROGRESS NOTE SERVICE DATE: 03/03/2025 SERVICE TIME: 5pm Complex Care Nurse attempted to offer support, but pt was sleeping To contact the Spiritual Care Department: Please call . SIGNATURE: Chaplain Vlad PATIENT NAME: Jeanie Rankin DATE: March 03, 2025 TIME: 5:17 PM PAGER/CONTACT #: [phone] Normal [facility] Basic metabolic 2000 panelon 03-03-2025 Anion gap [Moles/Vol] 9 mmol/L Normal 8-15 [facility] Comment on above: Order Comment: Speci men Type: BLOOD SPECIMENOrdering Facility: [facility] Address: [address] [place] [address] Performed By: #### 2 4321-2, 66981-6, 2777-1, 257-8 ####[facility] [id number] [place] [address] [place] Calcium [Mass/Vol] 8.9 mg/dL Normal 8.5-10.2 [facility] Comment on above: Order Comment: Speci men Type: BLOOD SPECIMENOrdering Facility: [facility] Address: [address] [place] [address] Performed By: #### 2 4321-2, 77385-3, 2777-1, 2571-8 ####[facility] [id number] [place] [address] [place] Chloride [Moles/Vol] 101 mmol/L Normal 98-107 [facility] Comment on above: Order Comment: Speci men Type: BLOOD SPECIMENOrdering Facility: [facility] Address: [address] [place] [address] Performed By: #### 2 4321-2, 66094-1, 2777-1, 2571-8 ####[facility] [id number] [place] [address] [place] CO2 [Moles/Vol] 22 mmol/L Normal 22-30 [facility] Comment on above: Order Comment: Speci men Type: BLOOD SPECIMENOrdering Facility: [facility] Address: [address] [place] [address] Performed By: #### 2 4321-2, , 2776-05, 2570-12 ####[facility] [id number] [place] [address] [place] Creatinine [Mass/Vol] 0.31 mg/dL Low 0.73-1.22 [facility] Comment on above: Order Comment: Speci men Type: BLOOD SPECIMENOrdering Facility: [facility] Address: [address] [place] [address] Performed By: #### 2 4321-2, , 2776-05, 2570-12 ####[facility] [id number] [place] [address] [place] eGFRcr SerPlBld CKD-EPI 2020 115 mL/min/1.73m??? Normal >=60 [facility] Comment on above: Order Comment: Speci men Type: BLOOD SPECIMENOrdering Facility: [facility] Address: [address] [place] [address] Result Comment: Genet mated Glomerular Filtration Rate [...] actual GFR. Performed By: #### 2 4321-2, 31894-2, 2776-05, 8 ####[facility]ORY[facility]IA [id number] [place] [address] [place] Glucose [Mass/Vol] 103 mg/dL High 74-99 [facility] Comment on above: Order Comment: Melia zuluaga Type: BLOOD SPECIMENOrdering Facility: [facility] Address: [address] [place] [address] Result Comment: The [place] Diabetes Association (ADA) provides guidance for cutoff [...] Standards of Medical Care in Diabetes 2016, [place] [employer]. Diabetes Care. 2016.39(Suppl 1). Performed By: #### 2 4321-2, 59024-1, 277-, 2570-12 ####[facility]ORY[facility]IA [id number] [place] [address] [place] Potassium [Moles/Vol] 4.0 mmol/L Normal 3.7-5.1 [facility] Comment on above: Order Comment: Melia zuluaga Type: BLOOD SPECIMENOrdering Facility: [facility] Address: [address] [place], [place] [address] Performed By: #### 2 4321-2, 84718-2, 2776-05, 2570-12 ####[facility]ORY[facility]IA [id number] [place] [address] [place] Sodium [Moles/Vol] 132 mmol/L Low 136-144 [facility] Comment on above: Order Comment: Melia zuluaga Type: BLOOD SPECIMENOrdering Facility: [facility] Address: [address] [place], [place] [address] Performed By: #### 2 4321-2, 26861-4, 2776-, 2570-8 ####[facility]ORYCLIA [id number] [place] [address] [place] Urea nitrogen [Mass/Vol] 20 mg/dL Normal 9-24 [facility] Comment on above: Order Comment: Speci men Type: BLOOD SPECIMENOrdering Facility: [facility] Address: [address] [place] [address] Performed By: #### 2 4321-2, 82835-3, 2777-1, 2571-8 ####[facility]ORYCLIA [id number] [address] OF [facility] CBC panel Auto (Bld)on 03-03 Erythrocyte distribution width (RBC) [Ratio] 12.0 % Normal 11.5-15.0 [facility] Comment on above: Order Comment: Speci men Type: BLOOD SPECIMEN [facility] Address: [address] [place] [address] Performed By: #### 5 8410-2 #### [facility] CLIA [id number] [address] STATES OF [facility] Hematocrit (Bld) [Volume fraction] 37.1 % Low 39.0-51.0 [facility] Comment on above: Order Comment: Speci men Type: BLOOD SPECIMEN [facility] Address: [address] [place] [address] Performed By: #### 5 8410-2 #### [facility] CLIA [id number] [address] Hemoglobin (Bld) [Mass/Vol] 13.1 g/dL Normal 13.0-17.0 [facility] Comment on above: Order Comment: Speci men Type: BLOOD SPECIMEN [facility] Address: [address] [place] [address] Performed By: #### 5 8410-2 #### [facility] CLIA [id number] [address] MCH (RBC) [Entitic mass] 32.0 pg Normal 26.0-34.0 [facility] Comment on above: Order Comment: Speci men Type: BLOOD SPECIMEN [facility] Address: [address] [place] [address] Performed By: #### 5 8410-2 #### [facility] CLIA [id number] [address] MCHC (RBC) [Mass/Vol] 35.3 g/dL Normal 30.5-36.0 [facility] Comment on above: Order Comment: Speci men Type: BLOOD SPECIMEN [facility] Address: [address] [place] [address] Performed By: #### 5 8410-2 #### [facility] CLIA [id number] [address] [place] MCV (RBC) [Entitic vol] 90.5 fL Normal 80.0-100.0 [facility] Comment on above: Order Comment: Speci men Type: BLOOD SPECIMEN [facility] Address: [address] [place] [address] Performed By: #### 5 8410-2 #### [facility] CLIA [id number] [address] [place] Nucleated RBC (Bld) [#/Vol] 10*3/uL Normal <0.01 [facility] Comment on above: Order Comment: Speci men Type: BLOOD SPECIMEN [facility] Address: [address] [place] [address] Performed By: #### 5 8410-2 #### [facility] CLIA [id number] [address] [place] Platelet mean volume (Bld) [Entitic vol] 10.8 fL Normal 9.0-12.7 [facility] Comment on above: Order Comment: Speci men Type: BLOOD SPECIMEN [facility] Address: [address] [place] [address] Performed By: #### 5 8410-2 #### [facility] CLIA [id number] [address] [place] Platelets (Bld) [#/Vol] 158 10*3/uL Normal 150-400 [facility] Comment on above: Order Comment: Speci men Type: BLOOD SPECIMEN [facility] Address: [address] [place] [address] Performed By: #### 5 8410-2 #### [facility] CLIA [id number] [address] OF [facility] RBC (Bld) [#/Vol] 4.10 10*6/uL Low 4.20-6.00 [facility] Comment on above: Order Comment: Speci men Type: BLOOD SPECIMEN [facility] Address: [address] [place] [address] Performed By: #### 5 8410-2 #### [facility] CLIA [id number] [address] WBC (Bld) [#/Vol] 8.85 10*3/uL Normal 3.70-11.00 [facility] Comment on above: Order Comment: Speci men Type: BLOOD SPECIMEN [facility] Address: [address] [place] [address] Performed By: #### 5 8410-2 #### [facility] CLIA [id number] [address] Magnesium SerPl-mCncon 03-03 Magnesium [Mass/Vol] 1.8 mg/dL Normal 1.7-2.3 [facility] Comment on above: Order Comment: Speci men Type: BLOOD SPECIMEN [facility] Address: [address] [place] [address] Performed By: #### 5 8410-2 #### [facility] CLIA [id number] [address] NURSING PROGon 03-03-2025 NURSING PROG HNO ID: [id number] Author: BRENDON SYKES RN Service: Nursing Author Type: Registered Nurse Type: Nursing Progress Note Filed: 03/03/2025 09:13 Note Text: Pt having a bloody nose in the left nare, applied gentle pressure to left nare and bleeding has subsided at this time. Will inform assigned RN Normal [facility] Phosphate SerPl-mCncon 03-03 Phosphate [Mass/Vol] 3.0 mg/dL Normal 2.7-4.8 [facility] Comment on above: Order Comment: Speci men Type: BLOOD SPECIMEN [facility] Address: [address] [place] [address] Performed By: #### 5 8410-2 #### [facility] CLIA [id number] [address] OF [facility] Trigl SerPl-mCncon Triglyceride [Mass/Vol] 56 mg/dL Normal <150 [facility] Comment on above: Order Comment: Speci men Type: BLOOD SPECIMEN [facility] Address: [address] [place] [address] Result Comment: <150 mg/dL, Normal 150-199 mg/dL, Borderline high 200-499 mg/dL, High >499 mg/dL, Very high Reference: 1. National Cholesterol Education Program ATP III Guideline At-A-Glance Quick Desk Reference: National Heart, Lung, and Blood [place]. National Institutes of Health. 2001: NIH Publication No. 01-3305. Performed By: #### 5 8410-2 #### [facility] CLIA [id number] [address] STATES [facility] Triglyceride [Mass/Vol]on FASTING TIME 12 hours Normal [facility] Comment on above: Order Comment: Speci men Type: BLOOD SPECIMEN [facility] Address: [address] [place] [address] Performed By: #### 5 8410-2 #### [facility] CLIA [id number] [address] [place] Basic metabolic 2000 panelon 03-02-2025 Anion gap [Moles/Vol] 9 mmol/L Normal 8-15 [facility] Comment on above: Order Comment: Speci men Type: BLOOD SPECIMEN [facility] Address: [address] [place] [address] Performed By: #### 2 777-1, 64976-0, #### [facility] CLIA [id number] 1 [place] [address] [place] Calcium [Mass/Vol] 8.9 mg/dL Normal 8.5-10.2 [facility] Comment on above: Order Comment: Speci men Type: BLOOD SPECIMEN [facility] Address: [address] [place] [address] Performed By: #### 2 777-1, , #### [facility] CLIA [id number] 1 [place] [address] [place] Chloride [Moles/Vol] 104 mmol/L Normal 98-107 [facility] Comment on above: Order Comment: Speci men Type: BLOOD SPECIMEN [facility] Address: [address] [place] [address] Performed By: #### 2 777-1, , #### [facility] CLIA [id number] 1 [place] [address] [place] CO2 [Moles/Vol] 25 mmol/L Normal 22-30 [facility] Comment on above: Order Comment: Speci men Type: BLOOD SPECIMEN [facility] Address: [address] [place] [address] Performed By: #### 2 777-1, , #### [facility] CLIA [id number] 1 [place] [address] [place] Creatinine [Mass/Vol] 0.31 mg/dL Low 0.73-1.22 [facility] Comment on above: Order Comment: Speci men Type: BLOOD SPECIMEN [facility] Address: [address] [place] [address] Performed By: #### 2 777-1, 19762-3, #### [facility] CLIA [id number] 1 [place] [address] [place] eGFRcr SerPlBld CKD-EPI 2021 115 mL/min/1.73m??? Normal >=60 [facility] Comment on above: Order Comment: Mleia zuluaga Type: BLOOD SPECIMEN [facility] Address: [address] [place] [address] Result Comment: Genet mated Glomerular Filtration Rate [...] actual GFR. Performed By: #### 2 777-1, 99685-4, #### [facility] CLIA [id number] 1 [place] [address] [place] Glucose [Mass/Vol] 91 mg/dL Normal 74-99 [facility] Comment on above: Order Comment: Melia zuluaga Type: BLOOD SPECIMEN [facility] Address: [address] [place] [address] Result Comment: The [place] Diabetes Association (ADA) provides guidance for cutoff [...] Standards of Medical Care in Diabetes 2016, [place] [employer]. Diabetes Care. 2016.39(Suppl 1). Performed By: #### 2 777-1, 02956-9, 13820-0 #### [facility] CLIA [id number] 1 [place] [address] [place] Potassium [Moles/Vol] 4.0 mmol/L Normal 3.7-5.1 [facility] Comment on above: Order Comment: Speci men Type: BLOOD SPECIMEN [facility] Address: [address] [place] [address] Performed By: #### 2 777-1, 76940-2, #### [facility] CLIA [id number] [address] STATES OF [facility] Sodium [Moles/Vol] 138 mmol/L Normal 136-144 [facility] Comment on above: Order Comment: Speci men Type: BLOOD SPECIMEN [facility] Address: [address] [place] [address] Performed By: #### 2 777-1, 96230-9, #### [facility] CLIA [id number] [address] [place] Urea nitrogen [Mass/Vol] 13 mg/dL Normal 9-24 [facility] Comment on above: Order Comment: Speci men Type: BLOOD SPECIMEN [facility] Address: [address] [place] [address] Performed By: #### 2 777-1, , #### [facility] CLIA [id number] [address] [place] CBC panel Auto (Bld)on 03-02 Erythrocyte distribution width (RBC) [Ratio] 12.0 % Normal 11.5-15.0 [facility] Comment on above: Order Comment: Speci men Type: BLOOD SPECIMEN [facility] Address: [address] [place] [address] Performed By: #### 5 8410-2 #### [facility] CLIA [id number] [address] Hematocrit (Bld) [Volume fraction] 37.1 % Low 39.0-51.0 [facility] Comment on above: Order Comment: Speci men Type: BLOOD SPECIMEN [facility] Address: [address] [place] [address] Performed By: #### 5 8410-2 #### [facility] CLIA [id number] [address] Hemoglobin (Bld) [Mass/Vol] 12.9 g/dL Low 13.0-17.0 [facility] Comment on above: Order Comment: Speci men Type: BLOOD SPECIMEN [facility] Address: [address] [place] [address] Performed By: #### 5 8410-2 #### [facility] CLIA [id number] [address] MCH (RBC) [Entitic mass] 32.0 pg Normal 26.0-34.0 [facility] Comment on above: Order Comment: Speci men Type: BLOOD SPECIMEN [facility] Address: [address] [place] [address] Performed By: #### 5 8410-2 #### [facility] CLIA [id number] [address] MCHC (RBC) [Mass/Vol] 34.8 g/dL Normal 30.5-36.0 [facility] Comment on above: Order Comment: Speci men Type: BLOOD SPECIMEN [facility] Address: [address] [place] [address] Performed By: #### 5 8410-2 #### [facility] CLIA [id number] [address] MCV (RBC) [Entitic vol] 92.1 fL Normal 80.0-100.0 [facility] Comment on above: Order Comment: Speci men Type: BLOOD SPECIMEN [facility] Address: [address] [place] [address] Performed By: #### 5 8410-2 #### [facility] CLIA [id number] [address] Nucleated RBC (Bld) [#/Vol] 10*3/uL Normal <0.01 [facility] Comment on above: Order Comment: Speci men Type: BLOOD SPECIMEN [facility] Address: [address] [place] [address] Performed By: #### 5 8410-2 #### [facility] CLIA [id number] [address] [place] Platelet mean volume (Bld) [Entitic vol] 10.5 fL Normal 9.0-12.7 [facility] Comment on above: Order Comment: Speci men Type: BLOOD SPECIMEN [facility] Address: [address] [place] [address] Performed By: #### 5 8410-2 #### [facility] CLIA [id number] [address] [place] Platelets (Bld) [#/Vol] 164 10*3/uL Normal 150-400 [facility] Comment on above: Order Comment: Speci men Type: BLOOD SPECIMEN [facility] Address: [address] [place] [address] Performed By: #### 5 8410-2 #### [facility] CLIA [id number] [address] [place] RBC (Bld) [#/Vol] 4.03 10*6/uL Low 4.20-6.00 [facility] Comment on above: Order Comment: Speci men Type: BLOOD SPECIMEN [facility] Address: [address] [place] [address] Performed By: #### 5 8410-2 #### [facility] CLIA [id number] [address] [place] WBC (Bld) [#/Vol] 5.53 10*3/uL Normal 3.70-11.00 [facility] Comment on above: Order Comment: Speci men Type: BLOOD SPECIMEN [facility] Address: [address] [place] [address] Performed By: #### 5 8410-2 #### [facility] CLIA [id number] [address] CONSULTon 03-02-2025 CONSULT HNO ID: [id number] Author: Maury GIORDANO MD Service: NST-Nutrition Support [...] 02/24/2025 Allergen Noted Reaction ADHESIVE 03/18/2009 NEOSPORIN [[id number]*08/0 07/2005 Rash and Itching Fully Assessed 02/24/2025 [...] CONSULT PROGon 03-02-2025 CONSULT PROG HNO ID: [id number] Author: CHESTER BERTRAND APRN.ETHYLBENZENE CRACKING SUPERVISOR Service: Gastroenterology Author Type: Nurse Specialist Type: [...] refer to Sky for the GI physician leather sponger. GI attending who can be reached via [...] QTC Calculation(Bazett) : 450 ms Calculated P [place] : 28 degrees Calculated R [place] : 10 degrees Calculated T [place] : 5 degrees NORMAL SINUS RHYTHM RIGHT BUNDLE BRANCH BLOCK ABNORMAL ECG WHEN COMPARED WITH ECG OF 27-Feb-2025 09:00, QUESTIONABLE CHANGE IN QRS AXIS T WAVE INVERSION LESS EVIDENT IN ANTERIOR LEADS Confirmed by MD WATTS VINAYAK ([id number]) on 03/03/2025 8:09:03 AM NAME : JEANIE RANKIN PID : [id number] : 1940 Gender : Male Race : ORD : [id number] Procedure Date : Mar 02 2025 19:01:01 Edit Date : Mar 03 2025 08:09:17 Diagnosis: NORMAL SINUS RHYTHM RIGHT BUNDLE BRANCH BLOCK ABNORMAL ECG WHEN COMPARED WITH ECG OF 27-Feb-2025 09:00, QUESTIONABLE CHANGE IN QRS AXIS T WAVE INVERSION LESS EVIDENT IN ANTERIOR LEADS Confirmed by MD WATTS VINAYAK ([id number]) on 03/03/2025 8:09:03 AM Test Reason : Chest Pain Location : 200 : [facility] 5427 Overread By : MD WATTS VINAYAK Edited By : MD WATTS VINAYAK Referred By : , Acquired by : NAHOMI GREENE [facility] Magnesium SerPl-ncon 03-02 Magnesium [Mass/Vol] 1.7 mg/dL Normal 1.7-2.3 [facility] Comment on above: Order Comment: Speci men Type: BLOOD SPECIMEN [facility] Address: [address] [place] [address] Performed By: #### 2 777-1, 23826-2, 12433-4 #### [facility] CLIA [id number] [address] NUTRITIONon 03-02-2025 NUTRITION HNO ID: [id number] Author: KIM VICENTE RD Service: NST-Nutrition Support [...] (IDDSI Level 5) with Thin Liquids (per LOAN ADVISER recommendation 02/27) Supplements: Premier Protein - h/o [...] 03-02 Phosphate [Mass/Vol] 2.8 mg/dL Normal 2.7-4.8 [facility] Comment on above: Order Comment: Speci men Type: BLOOD SPECIMEN [facility] Address: [address] [place] [address] Performed By: #### 2 777-1, 08771-8, 85092-2 #### [facility] CLIA [id number] [address] XR CHEST 1V FRONTALon 2024 XR [...] IMPRESSION: Mild atelectasis in the lung bases. Special Procedures Nurse: PSCCarol Transcribe Date/Time: Mar 02 2025 9:01P Dictated by : AGNIESZKA BURNHAM MD This examination was interpreted and the report reviewed and electronically signed by: AGNIESZKA BURNHAM MD on Mar 02 2025 9:04PM EST [id number] Normal [facility] Basic metabolic 2000 panelon 03-01-2025 Anion gap [Moles/Vol] 7 mmol/L Low 8-15 [facility] Comment on above: Order Comment: Speci men Type: BLOOD SPECIMEN [facility] Address: [address] [place] [address] Performed By: #### 5 8410-2 #### [facility] CLIA [id number] [address] [place] Calcium [Mass/Vol] 8.3 mg/dL Low 8.5-10.2 [facility] Comment on above: Order Comment: Speci men Type: BLOOD SPECIMEN [facility] Address: [address] [place] [address] Performed By: #### 5 8410-2 #### [facility] CLIA [id number] 1 [place] [address] [place] Chloride [Moles/Vol] 100 mmol/L Normal 98-107 [facility] Comment on above: Order Comment: Speci men Type: BLOOD SPECIMEN Order[facility] Facility: [facility] Address: [address] [place] [address] Performed By: #### 5 8410-2 #### [facility] CLIA [id number] [address] [place] CO2 [Moles/Vol] 28 mmol/L Normal 22-30 [facility] Comment on above: Order Comment: Speci men Type: BLOOD SPECIMEN Ordering Facility: [facility] Address: [address] [place] [address] Performed By: #### 5 8410-2 #### [facility] CLIA [id number] [address] [place] Creatinine [Mass/Vol] 0.31 mg/dL Low 0.73-1.22 [facility] Comment on above: Order Comment: Speci men Type: BLOOD SPECIMEN Ordering Facility: [facility] Address: [address] [place] [address] Performed By: #### 5 8410-2 #### [facility] CLIA [id number] [address] [place] eGFRcr SerPlBld CKD-EPI 2020 115 mL/min/1.73m??? Normal >=60 [facility] Comment on above: Order Comment: Speci men Type: BLOOD SPECIMEN Ordering Facility: [facility] Address: [address] [place] [address] Result Comment: Genet mated Glomerular Filtration Rate [...] GFR. Performed By: #### 5 8410-2 #### [facility] CLIA [id number] 1 [place] [address] [place] Glucose [Mass/Vol] 97 mg/dL Normal 74-99 [facility] Comment on above: Order Comment: Melia zuluaga Type: BLOOD SPECIMEN Ordering Facility: [facility] Address: [address] [place] [address] Result Comment: The [place] [employer] (ADA) provides guidance for cutoff [...] Standards of Medical Care in Diabetes 2016, [place] [employer]. Diabetes Care. 2016.39(Suppl 1). Performed By: #### 5 8410-2 #### [facility] CLIA [id number] 1 [place] [address] [place] Potassium [Moles/Vol] 3.7 mmol/L Normal 3.7-5.1 [facility] Comment on above: Order Comment: Melia zuluaga Type: BLOOD SPECIMEN Ordering Facility: [facility] Address: [address] [place] [id number] Performed By: #### 5 8410-2 #### [facility] CLIA [id number] [address] Sodium [Moles/Vol] 135 mmol/L Low 136-144 [facility] Comment on above: Order Comment: Speci men Type: BLOOD SPECIMEN Ordering Facility[facility] Address: [address] [place] [address] Performed By: #### 5 8410-2 #### [facility] CLIA [id number] [address] [place] Urea nitrogen [Mass/Vol] 13 mg/dL Normal 9-24 [facility] Comment on above: Order Comment: Speci men Type: BLOOD SPECIMEN Ordering Facility: [facility] Address: [address] [place] [address] Performed By: #### 5 8410-2 #### [facility] CLIA [id number] [address] CBC panel Auto (Bld)on 03-01 Erythrocyte distribution width (RBC) [Ratio] 12.1 % Normal 11.5-15.0 [facility] Comment on above: Order Comment: Speci men Type: BLOOD SPECIMEN Ordering Facility: [facility] Address: [address] [place] [address] Performed By: #### 5 8410-2 #### [facility] CLIA [id number] [address] Hematocrit (Bld) [Volume fraction] 36.0 % Low 39.0-51.0 [facility] Comment on above: Order Comment: Speci men Type: BLOOD SPECIMEN Ordering Facility: [facility] Address: [address] [place] [address] Performed By: #### 5 8410-2 #### [facility] CLIA [id number] [address] [place] Hemoglobin (Bld) [Mass/Vol] 12.1 g/dL Low 13.0-17.0 [facility] Comment on above: Order Comment: Speci men Type: BLOOD SPECIMEN Ordering Facility: [facility] Address: [address] [place] [address] Performed By: #### 5 8410-2 #### [facility] CLIA [id number] [address] [address] MCH (RBC) [Entitic mass] 31.5 pg Normal 26.0-34.0 [facility] Comment on above: Order Comment: Speci men Type: BLOOD SPECIMEN Ordering Facility: [facility] Address: [address] [place] [address] Performed By: #### 5 8410-2 #### [facility] CLIA [id number] [address] MCHC (RBC) [Mass/Vol] 33.6 g/dL Normal 30.5-36.0 [facility] Comment on above: Order Comment: Speci men Type: BLOOD SPECIMEN Ordering Facility: [facility] Address: [address] [place] [address] Performed By: #### 5 8410-2 #### [facility] CLIA [id number] [address] MCV (RBC) [Entitic vol] 93.8 fL Normal 80.0-100.0 [facility] Comment on above: Order Comment: Speci men Type: BLOOD SPECIMEN Ordering Facility: [facility] Address: [address] [place] [address] Performed By: #### 5 8410-2 #### [facility] CLIA [id number] [address] Nucleated RBC (Bld) [#/Vol] 10*3/uL Normal <0.01 [facility] Comment on above: Order Comment: Speci men Type: BLOOD SPECIMEN Ordering Facility: [facility] Address: [address] [place] [address] Performed By: #### 5 8410-2 #### [facility] CLIA [id number] [address] [place] Platelet mean volume (Bld) [Entitic vol] 10.6 fL Normal 9.0-12.7 [facility] Comment on above: Order Comment: Speci men Type: BLOOD SPECIMEN Ordering Facility: [facility] Address: [address] [place] [address] Performed By: #### 5 8410-2 #### [facility] CLIA [id number] [address] Platelets (Bld) [#/Vol] 150 10*3/uL Normal 150-400 [facility] Comment on above: Order Comment: Speci men Type: BLOOD SPECIMEN Ordering Facility: [facility] Address: [address] [place] [address] Performed By: #### 5 8410-2 #### [facility] CLIA [id number] [address] OF [facility] RBC (Bld) [#/Vol] 3.84 10*6/uL Low 4.20-6.00 [facility] Comment on above: Order Comment: Speci men Type: BLOOD SPECIMEN Ordering Facility: [facility] Address: [address] [place] [address] Performed By: #### 5 8410-2 #### [facility] CLIA [id number] [address] WBC (Bld) [#/Vol] 6.50 10*3/uL Normal 3.70-11.00 [facility] Comment on above: Order Comment: Speci men Type: BLOOD SPECIMEN Ordering Facility: [facility] Address: [address] [place] [address] Performed By: #### 5 8410-2 #### [facility] CLIA [id number] [address] CONSULT PROGon 03-01-2025 CONSULT PROG HNO ID: [id number] Author: PETRONA ALBRECHT MD Service: General Surgery [...] questions or concerns Mon-Fri 6a-5p please page [phone]. After 5pm and on Weekends and Holidays, please page [phone]. SUBJECTIVE: NAEON. Patient denies any nausea or [...] - 03/01/2559 03/01/25699 - 03/02/25 0659 Shift 2721-8386 6701-2906 3742-5927 24 Hour Total 3768-9292 6326-8512 4869-4831 24 Hour Total INTAKE [address] 240 [...] [facility] NUTRITION[facility] 03-01-2025 NUTRITION HNO ID: [id number] Author: ZULEMA VILLAGRAN RD Service: Nutrition Therapy [...] Follow for diet advancement to goal (per LOAN ADVISER approved consistencies/textures) Supplements: (pt has refused all, [...] Weight Type: Admit weight Estimated kilocalorie needs: 0120-9934 Calorie Calculation Method: 30-35 kcals/kg Estimated protein [...] Anion gap [Moles/Vol] 8 mmol/L Normal 8-15 [facility] Comment on above: Order Comment: Melia zuluaga Type: BLOOD SPECIMEN Ordering Facility: [facility] Address: [address] [place] [address] Performed By: #### 2 777-1, 38785-5, 44030-6 #### [facility] CLIA [id number] [address] [place] [address] [place] Calcium [Mass/Vol] 8.6 mg/dL Normal 8.5-10.2 [facility] Comment on above: Order Comment: Melia zuluaga Type: BLOOD SPECIMEN Ordering Facility: [facility] Address: [address] [place] [address] Performed By: #### 2 777-1, 89351-3, #### [facility] CLIA [id number] 1 [place] [address] [place] Chloride [Moles/Vol] 102 mmol/L Normal 98-107 [facility] Comment on above: Order Comment: Speci men Type: BLOOD SPECIMEN Ordering Facility: [facility] Address: [address] [place] [address] Performed By: #### 2 777-1, 30994-7, #### [facility] CLIA [id number] 1 [place] [address] [place] CO2 [Moles/Vol] 33 mmol/L High 22-30 [facility] Comment on above: Order Comment: Speci men Type: BLOOD SPECIMEN Ordering Facility: [facility] Address: [address] [place] [address] Performed By: #### 2 777-1, 44928-3, #### [facility] CLIA [id number] 1 [place] [address] [place] Creatinine [Mass/Vol] 0.35 mg/dL Low 0.73-1.22 [facility] Comment on above: Order Comment: Speci men Type: BLOOD SPECIMEN Ordering Facility: [facility] Address: [address] [place] [address] Performed By: #### 2 777-1, 47880-3, #### [facility] CLIA [id number] 1 [place] [address] [place] eGFRcr SerPlBld CKD-EPI 2020 111 mL/min/1.73m??? Normal >=60 [facility] Comment on above: Order Comment: Speci men Type: BLOOD SPECIMEN Ordering Facility: [facility] Address: [address] [place] [address] Result Comment: Genet mated Glomerular Filtration Rate [...] actual GFR. Performed By: #### 2 777-1, 14491-7, #### [facility] CLIA [id number] 1 [place] [address] [place] Glucose [Mass/Vol] 111 mg/dL High 74-99 [facility] Comment on above: Order Comment: Speccollin men Type: BLOOD SPECIMEN Ordering Facility: [facility] Address: [address] [place] [address] Result Comment: The [place] [employer] (ADA) provides guidance for cutoff [...] Standards of Medical Care in Diabetes 2016, [place] [employer]. Diabetes Care. 2016.39(Suppl 1). Performed By: #### 2 777-1, , #### [facility] CLIA [id number] 1 [place] [address] [place] Potassium [Moles/Vol] 3.6 mmol/L Low 3.7-5.1 [facility] Comment on above: Order Comment: Melia men Type: BLOOD SPECIMEN Ordering Facility: [facility] Address: [address] [place], [place] [address] Performed By: #### 2 777-1, , #### [facility] CLIA [id number] 1 [place] [address] [place] Sodium [Moles/Vol] 143 mmol/L Normal 136-144 [facility] Comment on above: Order Comment: Speci men Type: BLOOD SPECIMEN Ordering Facility: [facility] Address: [address] [place] [address] Performed By: #### 2 777-1, 94032-4, #### [facility] CLIA [id number] [address] STATES [facility] Urea nitrogen [Mass/Vol] 26 mg/dL High 01-28 [facility] Comment on above: Order Comment: Speci men Type: BLOOD SPECIMEN Ordering Facility: [facility] Address: [address] [place] [address] Performed By: #### 2 777-1, 80399-9, #### [facility] CLIA [id number] [address] OF [facility] CBC panel Auto (Bld)on 02-28 Erythrocyte distribution width (RBC) [Ratio] 12.4 % Normal 11.5-15.0 [facility] Comment on above: Order Comment: Speci men Type: BLOOD SPECIMENOrdering Facility: [facility] Address: [address] [place] [address] Performed By: #### 5 8410-2 ####[facility] [id number] [address] [place] Hematocrit (Bld) [Volume fraction] 36.4 % Low 39.0-51.0 [facility] Comment on above: Order Comment: Speci men Type: BLOOD SPECIMENOrdering Facility: [facility] Address: [address] [place] [address] Performed By: #### 5 8410-2 ####[facility] [id number] [address] [place] Hemoglobin (Bld) [Mass/Vol] 12.0 g/dL Low 13.0-17.0 [facility] Comment on above: Order Comment: Speci men Type: BLOOD SPECIMENOrdering Facility: [facility] Address: [address] [place] [address] Performed By: #### 5 8410-2 ####[facility] [id number] [address] STATES [facility] MCH (RBC) [Entitic mass] 31.9 pg Normal 26.0-34.0 [facility] Comment on above: Order Comment: Speci men Type: BLOOD SPECIMENOrdering Facility: [facility] Address: [address] [place] [address] Performed By: #### 5 8410-2 ####[facility] [id number] [address] MCHC (RBC) [Mass/Vol] 33.0 g/dL Normal 30.5-36.0 [facility] Comment on above: Order Comment: Speci men Type: BLOOD SPECIMENOrdering Facility: [facility] Address: [address] [place] [address] Performed By: #### 5 8410-2 ####[facility] [id number] [address] MCV (RBC) [Entitic vol] 96.8 fL Normal 80.0-100.0 [facility] Comment on above: Order Comment: Speci men Type: BLOOD SPECIMENOrdering Facility: [facility] Address: [address] [place] [address] Performed By: #### 5 8410-2 ####[facility] [id number] [address] Nucleated RBC (Bld) [#/Vol] 10*3/uL Normal <0.01 [facility] Comment on above: Order Comment: Speci men Type: BLOOD SPECIMENOrdering Facility: [facility] Address: [address] [place] [address] Performed By: #### 5 8410-2 ####[facility] [id number] [address] Platelet mean volume (Bld) [Entitic vol] 10.3 fL Normal 9.0-12.7 [facility] Comment on above: Order Comment: Speci men Type: BLOOD SPECIMENOrdering Facility: [facility] Address: [address] [place] [address] Performed By: #### 5 8410-2 ####[facility]IA [id number] [address] STATES [facility] Platelets (Bld) [#/Vol] 146 10*3/uL Low 150-400 [facility] Comment on above: Order Comment: Speci men Type: BLOOD SPECIMENOrdering Facility: [facility] Address: [address] [place] [address] Performed By: #### 5 8410-2 ####[facility] [id number] [address] [place] RBC (Bld) [#/Vol] 3.76 10*6/uL Low 4.20-6.00 [facility] Comment on above: Order Comment: Speci men Type: BLOOD SPECIMENOrdering Facility: [facility] Address: [address] [place] [address] Performed By: #### 5 8410-2 ####[facility]ORYCLIA [id number] [address] STATES OF [facility] WBC (Bld) [#/Vol] 6.43 10*3/uL Normal 3.70-11.00 [facility] Comment on above: Order Comment: Speci men Type: BLOOD SPECIMENOrdering Facility: [facility] Address: [address] [place] [address] Performed By: #### 5 8410-2 ####[facility]ORYCLIA [id number] [address] [place] [facility] Magnesium [Mass/Vol] 2.1 mg/dL Normal 1.7-2.3 [facility] Comment on above: Order Comment: Speci men Type: BLOOD SPECIMEN Ordering Facility: [facility] Address: [address] [place] [address] Performed By: #### 2 777-1, 92399-3, 62184-2 #### [facility] CLIA [id number] 1 [place] [address] [place] Phosphate SerPl-mCncon 02-28 Phosphate [Mass/Vol] 2.1 mg/dL Low 2.7-4.8 [facility] Comment on above: Order Comment: Speci men Type: BLOOD SPECIMEN Ordering Facility: [facility] Address: [address] [place] [address] Performed By: #### 2 777-1, 88564-8, 21921-3 #### [facility] CLIA [id number] 1 [place] [address] [place] THERAPY NTon 02-28-2025 THERAPY NT HNO ID: [id number] Author: WU FLORES, PT Service: Physical Therapy Author Type: Physical Therapist Type: Therapy (PT/OT/Speech/Resp) Filed: 02/28/2025 16:18 Note Text: Physical Therapy Treatment Summary SERVICE DATE: 02/28/2025 SERVICE TIME: 1445 to 1525 ROOM: [place] [address] PT 6 Clicks Score: 9 DISCHARGE RECOMMENDATIONS [...] be available and he has been at [facility] before--[facility] does have SNF/ARF PRECAUTIONS Bed/Chair Alarm, Fall Risk CURRENT HOSPITAL COURSE presented to [facility] ED with abdominal pain, nausea and vomitting--found [...] gait and mobility-other TREATMENT INTERVENTIONS Therapeutic Activity (01136) Timed Code Treatment (minutes): 40 Skilled Treatment Time (minutes): 40 Therapeutic Activity (25982) Treatment Minutes: 40 $ Therapeutic Activity (59604) Billed Units: 3 units Cues for safe [...] fully extended--discussed equipment options and asking about [facility] rehab TRAINING AND EDUCATION PROVIDED Bed Mobility, [...] Melia zuluaga Type: BLOOD SPECIMEN Ordering Facility: [facility] Address: [address] [place] [address] Performed By: #### 5 8410-2 #### [facility] CLIA [id number] [address] STATES OF [facility] Hematocrit (Bld) [Volume fraction] 37.9 % Low 39.0-51.0 [facility] Comment on above: Order Comment: Melia zuluaga Type: BLOOD SPECIMEN Ordering Facility: [facility] Address: [address] [place] [address] Performed By: #### 5 8410-2 #### [facility] CLIA [id number] 1 [place] [address] [place] Hemoglobin (Bld) [Mass/Vol] 12.4 g/dL Low 13.0-17.0 [facility] Comment on above: Order Comment: Melia zuluaga Type: BLOOD SPECIMEN Ordering Facility: [facility] Address: [address] [place] [address] Performed By: #### 5 8410-2 #### [facility] CLIA [id number] [address] MCH (RBC) [Entitic mass] 32.0 pg Normal 26.0-34.0 [facility] Comment on above: Order Comment: Speci men Type: BLOOD SPECIMEN Ordering Facility: [facility] Address: [address] [place] [address] Performed By: #### 5 8410-2 #### [facility] CLIA [id number] [address] MCHC (RBC) [Mass/Vol] 32.7 g/dL Normal 30.5-36.0 [facility] Comment on above: Order Comment: Speci men Type: BLOOD SPECIMEN Ordering Facility: [facility] Address: [address] [place] [address] Performed By: #### 5 8410-2 #### [facility] CLIA [id number] [address] MCV (RBC) [Entitic vol] 97.7 fL Normal 80.0-100.0 [facility] Comment on above: Order Comment: Speci men Type: BLOOD SPECIMEN Ordering Facility: [facility] Address: [address] [place] [address] Performed By: #### 5 8410-2 #### [facility] CLIA [id number] [address] Nucleated RBC (Bld) [#/Vol] 10*3/uL Normal <0.01 [facility] Comment on above: Order Comment: Speci men Type: BLOOD SPECIMEN Ordering Facility: [facility] Address: [address] [place] [address] Performed By: #### 5 8410-2 #### [facility] CLIA [id number] [address] OF [facility] Platelet mean volume (Bld) [Entitic vol] 10.4 fL Normal 9.0-12.7 [facility] Comment on above: Order Comment: Speci men Type: BLOOD SPECIMEN Ordering Facility: [facility] Address: [address] [place] [address] Performed By: #### 5 8410-2 #### [facility] CLIA [id number] [address] OF [facility] Platelets (Bld) [#/Vol] 173 10*3/uL Normal 150-400 [facility] Comment on above: Order Comment: Speci men Type: BLOOD SPECIMEN Ordering Facility: [facility] Address: [address] [place] [address] Performed By: #### 5 8410-2 #### [facility] CLIA [id number] [address] OF [facility] RBC (Bld) [#/Vol] 3.88 10*6/uL Low 4.20-6.00 [facility] Comment on above: Order Comment: Speci men Type: BLOOD SPECIMEN Ordering Facility: [facility] Address: [address] [place] [address] Performed By: #### 5 8410-2 #### [facility] CLIA [id number] [address] WBC (Bld) [#/Vol] 6.76 10*3/uL Normal 3.70-11.00 [facility] Comment on above: Order Comment: Speci men Type: BLOOD SPECIMEN Ordering Facility: [facility] Address: [address] [place] [address] Performed By: #### 5 8410-2 #### [facility] CLIA [id number] [address] CONSULTon 02-27-2025 CONSULT HNO ID: [id number] Author: RONDA DUMONT APRN.ETHYLBENZENE CRACKING SUPERVISOR Service: Geriatrics Author Type: Nurse Specialist Type: Consults Filed: 02/27/2025 12:47 Note Text: GERIATRIC SURGERY SERVICE CONSULT NOTE PATIENT NAME: Jeanie Rankin [id number] CONSULT TO GERIATRICS (AK) Consult performed by: Ronda Dumont APRN.ETHYLBENZENE CRACKING SUPERVISOR Consult ordered by: Nadiya Camilo MD Reason for consult: Age 84 HISTORY OF PRESENT ILLNESS: Jeanie Rankin is a 84 year old male with a past medical history of nodular B cell lymphoma 2007, esophagitis, hiatal hernia, diverticulosis, fout, , HTN, hypogonadism, IBM, and osteoporosis who was admitted on 02/24/2025 for gastric outlet obstruction. Patient went to [facility] ED for recurrent emesis, imaging revealed large hiatal hernia containing a significant portion of the gastric body and subsequently causing gastric outlet obstruction . NGT was placed and was transferred to [facility] for evaluation. Patient was admitted under medicine to [facility]. General surgery was consulted, had discussion [...] prescriptions were reported. 02/27/2025 by Ronda Dumont APRN.ETHYLBENZENE CRACKING SUPERVISOR Current Facility-Administered Medications Medication Dose Route Frequency [...] 02/24/2025 Allergen Noted Reaction ADHESIVE 03/18/2009 NEOSPORIN [BKHMHROK-FPCGXOHGTH-EM*08/0 07/2005 Rash and Itching Fully Assessed 02/24/2025 Review of Systems Constitutional: Positive (more content not included)... Normal [facility] CONSULT PROGon 02-27-2025 CONSULT PROG HNO ID: [id number] Author: JOSE DAVIS APRN.ALINE Service: Clinical Cardiology Author Type: Nurse Practitioner Type: Consult Progress Note Filed: 02/27/2025 14:17 Note Text: CARDIOLOGY CONSULT PROGRESS NOTE CARDIOLOGY ATTENDING: Rick Brito M.D. Date and Reason for initial consult: Preop risk assessment INTERVAL HISTORY: This is an 84-year-old male with past medical history significant for hypertension, inclusion body myositis, lymphoma, and hiatal hernia who initially presented to [facility] 02/24/2025 with complaints of abdominal pain, nausea and vomiting x 3 days. CTAP showed large hiatal hernia with gastric outlet obstruction, NG tube was placed. He was transferred to [facility] 02/25/2025. He underwent EGD in 02/26 [...] [facility] CONSULT PROG HNO ID: [id number] Author: BLAINE CASIANO MD Service: General Surgery [...] questions or concerns Sun-Sun 6a-5p please page [phone]. After 5pm and on Weekends and Holidays, please page [phone]. SUBJECTIVE: Patient had EGD yesterday notable for [...] 0659 02/27/25 0700 - 02/28/25 0659 Shift 7038-6666 5095-7865 5696-9306 24 Hour Total 8427-3465 2798-0755 4078-0856 24 Hour Total INTAKE Shift Total OUTPUT Urine 150 250 400 Void (ml) 150 250 400 Tubes 700 700 Output mL (I/O) ([REMOVED] GI/ Feeding 02/24/25 External Facility Left Naris 02/26/25 1125) 700 700 Shift Total 319 680 6892 Weight (kg) 64.2 64.2 64.2 64.2 64.2 [...] Speci men Type: BLOOD SPECIMEN Ordering Facility: [facility] Address: [address] [place] [address] Performed By: #### 2 777-1, 80432-1, 36683-1 #### [facility] CLIA [id number] [address] [place] [address] [place] ALP [Catalytic activity/Vol] 51 U/L Normal 38-113 [facility] Comment on above: Order Comment: Speci men Type: BLOOD SPECIMEN Ordering Facility: [facility] Address: [address] [place] [address] Performed By: #### 2 777-1, 01752-4, #### [facility] CLIA [id number] [address] [place] ALT With P-5'-P [Catalytic activity/Vol] 11 U/L Normal 10-54 [facility] Comment on above: Order Comment: Speci men Type: BLOOD SPECIMEN Ordering Facility: [facility] Address: [address] [place] [address] Performed By: #### 2 777-1, , #### [facility] CLIA [id number] [address] [place] Anion gap [Moles/Vol] 12 mmol/L Normal 8-15 [facility] Comment on above: Order Comment: Speci men Type: BLOOD SPECIMEN Ordering Facility: [facility] Address: [address] [place] [address] Performed By: #### 2 777-1, , #### [facility] CLIA [id number] [address] [place] OF [facility] AST With P-5'-P [Catalytic activity/Vol] 18 U/L Normal 14-40 [facility] Comment on above: Order Comment: Speci men Type: BLOOD SPECIMEN Ordering Facility: [facility] Address: [address] [place] [address] Performed By: #### 2 777-1, 45742-5, #### [facility] CLIA [id number] [address] [place] Bilirubin [Mass/Vol] 0.7 mg/dL Normal 0.2-1.3 [facility] Comment on above: Order Comment: Speci men Type: BLOOD SPECIMEN Ordering Facility: [facility] Address: [address] [place] [address] Performed By: #### 2 777-1, 46308-9, #### [facility] CLIA [id number] [address] [place] [address] [place] Calcium [Mass/Vol] 9.1 mg/dL Normal 8.5-10.2 [facility] Comment on above: Order Comment: Speci men Type: BLOOD SPECIMEN Ordering Facility: [facility] Address: [address] [place] [address] Performed By: #### 2 777-1, 51174-9, #### [facility] CLIA [id number] [address] [place] [address] [place] Chloride [Moles/Vol] 102 mmol/L Normal 98-107 [facility] Comment on above: Order Comment: Speci men Type: BLOOD SPECIMEN Ordering Facility: [facility] Address: [address] [place] [address] Performed By: #### 2 777-1, , #### [facility] CLIA [id number] [address] [place] [address] [place] CO2 [Moles/Vol] 35 mmol/L High 22-30 [facility] Comment on above: Order Comment: Speci men Type: BLOOD SPECIMEN Ordering Facility: [facility] Address: [address] [place] [address] Performed By: #### 2 777-1, , #### [facility] CLIA [id number] [address] [place] [address] [place] Creatinine [Mass/Vol] 0.46 mg/dL Low 0.73-1.22 [facility] Comment on above: Order Comment: Speci men Type: BLOOD SPECIMEN Ordering Facility: [facility] Address: [address] [place] [address] Performed By: #### 2 777-1, 45253-1, #### [facility] CLIA [id number] [address] [place] [address] [place] eGFRcr SerPlBld CKD-EPI 2020 102 mL/min/1.73m??? Normal >=60 [facility] Comment on above: Order Comment: Melia zuluaga Type: BLOOD SPECIMEN Ordering Facility: [facility] Address: [address] [place] [address] Result Comment: Genet mated Glomerular Filtration Rate [...] actual GFR. Performed By: #### 2 777-1, 61524-7, #### [facility] CLIA [id number] [address] [place] [address] [place] Glucose [Mass/Vol] 81 mg/dL Normal 74-99 [facility] Comment on above: Order Comment: Melia zuluaga Type: BLOOD SPECIMEN Ordering Facility: [facility] Address: [address] [place] [address] Result Comment: The [place] [employer] Association (ADA) provides guidance for cutoff [...] Standards of Medical Care in Diabetes 2016, [place] [employer]. Diabetes Care. 2016.39(Suppl 1). Performed By: #### 2 777-1, 28003-3, #### [facility] CLIA [id number] [address] [place] [address] [place] Potassium [Moles/Vol] 3.5 mmol/L Low 3.7-5.1 [facility] Comment on above: Order Comment: Speci men Type: BLOOD SPECIMEN Ordering Facility: [facility] Address: [address] [place] [address] Performed By: #### 2 777-1, 91063-0, #### [facility] CLIA [id number] [address] [place] [address] [place] Protein [Mass/Vol] 6.1 g/dL Low 6.3-8.0 [facility] Comment on above: Order Comment: Speci men Type: BLOOD SPECIMEN Ordering Facility: [facility] Address: [address] [place] [address] Performed By: #### 2 777-1, , #### [facility] CLIA [id number] [address] [place] [address] [place] Sodium [Moles/Vol] 149 mmol/L High 136-144 [facility] Comment on above: Order Comment: Speci men Type: BLOOD SPECIMEN Ordering Facility: [facility] Address: [address] [place] [address] Performed By: #### 2 777-1, , #### [facility] CLIA [id number] [address] [place] [address] [place] Urea nitrogen [Mass/Vol] 29 mg/dL High 9-24 [facility] Comment on above: Order Comment: Speci men Type: BLOOD SPECIMEN Ordering Facility: [facility] Address: [address] [place] [address] Performed By: #### 2 777-1, , #### [facility] CLIA [id number] [address] [place] [address] [place] Magnesium SerPl-mCncon 02-27 Magnesium [Mass/Vol] 2.2 mg/dL Normal 1.7-2.3 [facility] Comment on above: Order Comment: Speci men Type: BLOOD SPECIMEN Ordering Facility: [facility] Address: [address] [place] [address] Performed By: #### 2 777-1, 59732-3, 53876-7 #### [facility] CLIA [id number] [address] STATES OF [facility] [place] CARDIAC PERF STRESS/PHARM on 02-27-2025 NM CARDIAC PERF STRESS/PHARM * * *Final Report* * * DATE OF EXAM: Feb 27 2025 10:28AM [facility] 0006 - [place] CARDIAC PERF STRESS/PHARM / PROCEDURE REASON: CAD screening, low CAD risk * * * * Physician Interpretation * * * * Stress Gate Services Supervisor Report: [facility] Date of service: [...] 02/27/2025 7:52:00 AM Ordering physician: KAREEM PEREZ patient resource specialist: Mushtaq Storey RN Retail Administrative Assistant: Drew Calvin CEP Interpreting physician: Shawn Everett [...] 172/61 mmHg. The double product achieved was [address]. Medications: Last Used D3, CoQ10, lisinopril, MVI Resting ECG: Sinus Bradycardia, Nonspecific St-T Wave Changes and RBBB Symptoms at r (more content not included)... Normal [facility] Phosphate SerPl-mCncon 02-27 Phosphate [Mass/Vol] 3.1 mg/dL Normal 2.7-4.8 [facility] Comment on above: Order Comment: Speci men Type: BLOOD SPECIMEN Ordering Facility: [facility] Address: [address] [place] [address] Performed By: #### 2 777-1, 80935-7, 87518-6 #### [facility] CLIA [id number] [address] [place] [address] [place] THERAPY NTon 02-27-2025 THERAPY NT HNO ID: [id number] Author: WU FLORES PT Service: Physical Therapy Author Type: Physical Therapist Type: Therapy (PT/OT/Speech/Resp) Filed: 02/27/2025 15:45 Note Text: Physical Therapy Evaluation Summary SERVICE DATE: 02/27/2025 SERVICE TIME: 1430 to 1457 ROOM: [address] PT 6 Clicks Score: 8 DISCHARGE [...] Fall Risk CURRENT HOSPITAL COURSE presented to [facility] with abdominal pain, nausea and vomitting--found [...] and mobility-other TREATMENT INTERVENTIONS Evaluation, Therapeutic Activity (63810) Timed Code Treatment (minutes): 10 Skilled Treatment Time (minutes): 27 $ Evaluation-Moderate (39812) Billed Units: 1 unit Therapeutic Activity (99079) Treatment Minutes: 10 $ Therapeutic Activity (81921) Billed Units: 1 unit Needed mod A to mobilize to edge of bed--pt usually sleeps in lift chair at baseline; then needed max Ax2 to return to supine and reposition Multiple attempts to stand with height of bed fully elevated and using our walker--but pt unable to complete with this device--cable tool driller aren't long enough and doesn't have correct [...] [facility] THERAPY NT HNO ID: [id number] Author: MIRTA LEON CCC-LOAN ADVISER Service: Speech/Swallow Author Type: Speech Language Pathologist Type: Therapy (PT/OT/Speech/Resp) Filed: 02/27/2025 11:16 Note Text: Speech Therapy Clinical Swallow Evaluation SERVICE DATE: 02/27/2025 SERVICE TIME: 1042 to 1104 ROOM: [id number] IMPRESSION Swallow Deficits Identified / Suspected: Oropharyngeal [...] oropharyngeal phase TREATMENT INTERVENTIONS Clinical Swallow Evaluation (61213) Skilled Treatment Time (minutes): 22 $ Clinical Swallow Evaluation (93613) Billed Units: 1 unit TRAINING AND EDUCATION [...] EVALon 025 ANES POSTPROC EVAL HNO ID: [id number] Author: BELEN SPRING MD Service: Anesthesiology Author Type: Anesthesiologist Type: Anesthesia Postprocedure Evaluation Filed: 02/26/2025 13:19 Note Text: POST ANESTHESIA EVALUATION NOTE : 1940 Procedure Summary Date: 02/26/25 Room / Location: [facility] Anesthesia Start: 1104 Anesthesia Stop: 1201 [...] February 26, 2025 TIME: 1:19 PM CSN: [id number] Normal [facility] ANES PRE-OPon 02-26-2025 ANES PRE-OP HNO ID: [id number] Author: BELEN SPRING MD Service: Anesthesiology Author Type: Anesthesiologist Type: Anesthesia Preprocedure Evaluation Filed: 02/26/2025 10:52 Note Text: ANESTHESIOLOGY DAY OF SURGERY NOTE : 1940 Procedure Information Date/Time: 02/26/25 1115 Scheduled providers: Nadiya Camilo MD Procedure: EGD DIAGNOSTIC Location: [facility] Estimated body mass index is 20.9 [...] February 26, 2025 TIME: 10:51 AM CSN: [id number] Normal [facility] Basic metabolic 2000 panelon 02-26-2025 Anion gap [Moles/Vol] 12 mmol/L Normal 8-15 [facility] Comment on above: Order Comment: Speci men Type: BLOOD SPECIMEN Ordering Facility: [facility] Address: [address] [place] [address] Performed By: #### 5 8410-2 #### [facility] CLIA [id number] [address] [place] [address] [place] Calcium [Mass/Vol] 9.3 mg/dL Normal 8.5-10.2 [facility] Comment on above: Order Comment: Speci men Type: BLOOD SPECIMEN Ordering Facility: [facility] Address: [address] [place] [address] Performed By: #### 5 8410-2 #### [facility] CLIA [id number] 1 [place] [address] [place] Chloride [Moles/Vol] 100 mmol/L Normal 98-107 [facility] Comment on above: Order Comment: Speci men Type: BLOOD SPECIMEN Ordering Facility: [facility] Address: [address] [place] [address] Performed By: #### 5 8410-2 #### [facility] CLIA [id number] [address] [place] CO2 [Moles/Vol] 36 mmol/L High 22-30 [facility] Comment on above: Order Comment: Speci men Type: BLOOD SPECIMEN Ordering Facility: [facility] Address: [address] [place] [address] Performed By: #### 5 8410-2 #### [facility] CLIA [id number] [address] [place] Creatinine [Mass/Vol] 0.45 mg/dL Low 0.73-1.22 [facility] Comment on above: Order Comment: Speci men Type: BLOOD SPECIMEN Ordering Facility: [facility] Address: [address] [place] [address] Performed By: #### 5 8410-2 #### [facility] CLIA [id number] [address] eGFRcr SerPlBld CKD-EPI 2020 103 mL/min/1.73m??? Normal >=60 [facility] Comment on above: Order Comment: Speci men Type: BLOOD SPECIMEN Ordering Facility: [facility] Address: [address] [place] [address] Result Comment: Genet mated Glomerular Filtration Rate [...] GFR. Performed By: #### 5 8410-2 #### [facility] CLIA [id number] [address] OF [facility] Glucose [Mass/Vol] 74 mg/dL Normal 74-99 [facility] Comment on above: Order Comment: Speci men Type: BLOOD SPECIMEN Ordering Facility: [facility] Address: [address] [place] [address] Result Comment: The [place] [employer] (ADA) provides guidance for cutoff [...] Standards of Medical Care in Diabetes 2016, [place] [employer]. Diabetes Care. 2016.39(Suppl 1). Performed By: #### 5 8410-2 #### [facility] CLIA [id number] [address] STATES [facility] Potassium [Moles/Vol] 3.4 mmol/L Low 3.7-5.1 [facility] Comment on above: Order Comment: Melia zuluaga Type: BLOOD SPECIMEN Ordering Facility: [facility] Address: [address] [place] [address] Performed By: #### 5 8410-2 #### [facility] CLIA [id number] [address] STATES [facility] Sodium [Moles/Vol] 148 mmol/L High 136-144 [facility] Comment on above: Order Comment: Melia zuluaga Type: BLOOD SPECIMEN Ordering Facility: [facility] Address: [address] [place] [address] Performed By: #### 5 8410-2 #### [facility] CLIA [id number] [address] STATES [facility] Urea nitrogen [Mass/Vol] 22 mg/dL Normal 9-24 [facility] Comment on above: Order Comment: Melia zuluaga Type: BLOOD SPECIMEN Ordering Facility: [facility] Address: [address] [place] [address] Performed By: #### 5 8410-2 #### [facility] CLIA [id number] [address] [place] CBC W Auto Differential pane l (Bld)on 02-26-2025 Basophils (Bld) [#/Vol] 10*3/uL Normal <0.11 [facility] Comment on above: Order Comment: Speci men Type: BLOOD SPECIMEN Ordering Facility: [facility] Address: [address] [place] [address] Performed By: #### 2 777-1, 42502-2, #### [facility] CLIA [id number] [address] [place] [address] [place] Basophils/100 WBC (Bld) 0.3 % Normal [facility] Comment on above: Order Comment: Speci men Type: BLOOD SPECIMEN Ordering Facility: [facility] Address: [address] [place] [address] Performed By: #### 2 777-1, , #### [facility] CLIA [id number] [address] [place] [address] [place] Differential cell count method Nom (Bld) Auto Normal [facility] Comment on above: Order Comment: Speci men Type: BLOOD SPECIMEN Ordering Facility: [facility] Address: [address] [place] [address] Performed By: #### 2 777-1, , #### [facility] CLIA [id number] [address] [place] [address] [place] Eosinophils (Bld) [#/Vol] 10*3/uL Normal <0.46 [facility] Comment on above: Order Comment: Speci men Type: BLOOD SPECIMEN Ordering Facility: [facility] Address: [address] [place] [address] Performed By: #### 2 777-1, 57851-8, #### [facility] CLIA [id number] [address] [place] Eosinophils/100 WBC (Bld) 0.3 % Normal [facility] Comment on above: Order Comment: Speci men Type: BLOOD SPECIMEN Ordering Facility: [facility] Address: [address] [place] [address] Performed By: #### 2 777-1, , #### [facility] CLIA [id number] [address] [place] Erythrocyte distribution width (RBC) [Ratio] 12.5 % Normal 11.5-15.0 [facility] Comment on above: Order Comment: Speci men Type: BLOOD SPECIMEN Ordering Facility: [facility] Address: [address] [place] [address] Performed By: #### 2 777-1, , #### [facility] CLIA [id number] [address] [place] Hematocrit (Bld) [Volume fraction] 36.1 % Low 39.0-51.0 [facility] Comment on above: Order Comment: Speci men Type: BLOOD SPECIMEN Ordering Facility: [facility] Address: [address] [place] [address] Performed By: #### 2 777-1, , #### [facility] CLIA [id number] [address] [place] Hemoglobin (Bld) [Mass/Vol] 12.1 g/dL Low 13.0-17.0 [facility] Comment on above: Order Comment: Speci men Type: BLOOD SPECIMEN Ordering Facility: [facility] Address: [address] [place] [address] Performed By: #### 2 777-1, , #### [facility] CLIA [id number] [address] [place] Immature granulocytes (Bld) [#/Vol] 10*3/uL Normal <0.10 [facility] Comment on above: Order Comment: Speci men Type: BLOOD SPECIMEN Ordering Facility: [facility] Address: [address] [place] [address] Performed By: #### 2 777-1, , #### [facility] CLIA [id number] [address] [place] [address] [place] Immature granulocytes/100 WBC (Bld) 0.3 % Normal [facility] Comment on above: Order Comment: Speci men Type: BLOOD SPECIMEN Ordering Facility: [facility] Address: [address] [place] [address] Performed By: #### 2 777-1, 11093-5, #### [facility] CLIA [id number] [address] [place] Lymphocytes (Bld) [#/Vol] 1.18 10*3/uL Normal 1.00-4.00 [facility] Comment on above: Order Comment: Speci men Type: BLOOD SPECIMEN Ordering Facility: [facility] Address: [address] [place] [address] Performed By: #### 2 777-1, 97341-8, #### [facility] CLIA [id number] [address] Lymphocytes/100 WBC (Bld) 17.4 % Normal [facility] Comment on above: Order Comment: Speci men Type: BLOOD SPECIMEN Ordering Facility: [facility] Address: [address] [place] [address] Performed By: #### 2 777-1, , #### [facility] CLIA [id number] [address] [place] MCH (RBC) [Entitic mass] 31.8 pg Normal 26.0-34.0 [facility] Comment on above: Order Comment: Speci men Type: BLOOD SPECIMEN Ordering Facility: [facility] Address: [address] [place] [address] Performed By: #### 2 777-1, 58157-7, #### [facility] CLIA [id number] [address] STATES OF [facility] MCHC (RBC) [Mass/Vol] 33.5 g/dL Normal 30.5-36.0 [facility] Comment on above: Order Comment: Speci men Type: BLOOD SPECIMEN Ordering Facility: [facility] Address: [address] [place] [address] Performed By: #### 2 777-1, 91038-6, #### [facility] CLIA [id number] [address] MCV (RBC) [Entitic vol] 95.0 fL Normal 80.0-100.0 [facility] Comment on above: Order Comment: Speci men Type: BLOOD SPECIMEN Ordering Facility: [facility] Address: [address] [place] [address] Performed By: #### 2 777-1, , #### [facility] CLIA [id number] [address] [place] Monocytes (Bld) [#/Vol] 1.07 10*3/uL High <0.87 [facility] Comment on above: Order Comment: Speci men Type: BLOOD SPECIMEN Ordering Facility: [facility] Address: [address] [place] [address] Performed By: #### 2 777-1, , #### [facility] CLIA [id number] [address] [place] Monocytes/100 WBC (Bld) 15.8 % Normal [facility] Comment on above: Order Comment: Speci men Type: BLOOD SPECIMEN Ordering Facility: [facility] Address: [address] [place] [address] Performed By: #### 2 777-1, , #### [facility] CLIA [id number] [address] [place] Neutrophils (Bld) [#/Vol] 4.46 10*3/uL Normal 1.45-7.50 [facility] Comment on above: Order Comment: Speci men Type: BLOOD SPECIMEN Ordering Facility: [facility] Address: [address] [place] [address] Performed By: #### 2 777-1, 48249-0, #### [facility] CLIA [id number] [address] [place] Neutrophils/100 WBC (Bld) 65.9 % Normal [facility] Comment on above: Order Comment: Speci men Type: BLOOD SPECIMEN Ordering Facility: [facility] Address: [address] [place] [address] Performed By: #### 2 777-1, 52676-1, #### [facility] CLIA [id number] [address] [place] Nucleated RBC (Bld) [#/Vol] 10*3/uL Normal <0.01 [facility] Comment on above: Order Comment: Speci men Type: BLOOD SPECIMEN Ordering Facility: [facility] Address: [address] [place] [address] Performed By: #### 2 777-1, 88196-2, #### [facility] CLIA [id number] [address] [place] Nucleated RBC/100 WBC (Bld) [Ratio] 0.0 /100 WBC Normal [facility] Comment on above: Order Comment: Speci men Type: BLOOD SPECIMEN Ordering Facility: [facility] Address: [address] [place] [address] Performed By: #### 2 777-1, 17852-9, #### [facility] CLIA [id number] [address] [place] [address] [place] Platelet mean volume (Bld) [Entitic vol] 10.3 fL Normal 9.0-12.7 [facility] Comment on above: Order Comment: Speci men Type: BLOOD SPECIMEN Ordering Facility: [facility] Address: [address] [place] [address] Performed By: #### 2 777-1, 62788-2, #### [facility] CLIA [id number] [address] [place] [address] [place] Platelets (Bld) [#/Vol] 174 10*3/uL Normal 150-400 [facility] Comment on above: Order Comment: Speci men Type: BLOOD SPECIMEN Ordering Facility: [facility] Address: [address] [place] [address] Performed By: #### 2 777-1, 77679-6, #### [facility] CLIA [id number] [address] [place] [address] [place] RBC (Bld) [#/Vol] 3.80 10*6/uL Low 4.20-6.00 [facility] Comment on above: Order Comment: Speci men Type: BLOOD SPECIMEN Ordering Facility: [facility] Address: [address] [place] [address] Performed By: #### 2 777-1, 51258-9, #### [facility] CLIA [id number] 1 [place] [address] [place] WBC (Bld) [#/Vol] 6.77 10*3/uL Normal 3.70-11.00 [facility] Comment on above: Order Comment: Speci men Type: BLOOD SPECIMEN Ordering Facility: [facility] Address: [address] [place] [address] Performed By: #### 2 777-1, 15449-0, #### [facility] CLIA [id number] [address] [place] CONSULTon 02-26-2025 CONSULT HNO ID: [id number] Author: RICK BRITO MD Service: Cardiovascular Medicine [...] no results documented. Who presented to the [facility] on February 24, 2025 with complaints of abdominal pain. Found to have gastric outlet obstruction, so NG tube was placed and he was transferred to [facility] on 02/25. Patient underwent EGD on [...] CONSULT PROGon 02-26-2025 CONSULT PROG HNO ID: [id number] Author: ALEJANDRO LAM MD Service: General Surgery [...] questions or concerns Mon-Sun 6a-5p please page [phone]. After 5pm and on Weekends and Holidays, please page [phone] if in ICU or [phone] if on RNF. SUBJECTIVE: No acute events [...] - 02/26/2565802/26/25 07 - 02/27/25 0659 Shift 9023-0324 1175-1835 1590-0669 24 Hour Total 7512-6590 3510-3844 8761-9045 24 Hour Total INTAKE Shift Total OUTPUT Urine 400 275 675 Void (ml) 400 275 675 Urine Not Saved. 1 x 1 x Tubes 250 650 900 Output mL (I/O) (GI/ Feeding 02/24/25 External Facility [facility]) 250 650 900 Shift Total 323 088 0836 Weight (kg) 64.2 64.2 64.2 64.2 64.2 [...] (Age over 85 or impaired cognition):Consult to Stress Test Technician Palliative Care/Hospice: Consult not required Rehab/Therapy: PT/OT Recommendations: PT: OT: Swallow: Speech Recommendations: Speech: Speech Diet: Nutrition: Consult not required Nutrition Recommendations: MST: Total MST Score (Calculated): 5 Delivery Crew Member: Pharmacy: Consult not needed Social Work: NA Anticipate (more content not included)... Normal [facility] CONSULT PROG HNO ID: [id number] Author: JOSE HAYES MD Service: General Surgery [...] questions or concerns Mon-Fri 6a-5p please page [phone]. After 5pm and on Weekends and Holidays, please page [phone]. SUBJECTIVE: NAEON. Pt continues to have NG [...] 0659 02/26/25 07 - 02/27/25 0659 Shift 1607-7654 8941-1507 4021-3479 24 Hour Total 2242-7255 2780-1668 4606-7970 24 Hour Total INTAKE Shift Total OUTPUT Urine 400 275 675 Void (ml) 400 275 675 Urine Not Saved. 1 x 1 x Tubes 250 650 900 Output mL (I/O) (GI/ Feeding 02/24/25 External Facility [facility]) 250 650 900 Shift Total 782 569 5172 Weight (kg) 64.2 64.2 64.2 64.2 64.2 [...] Speci men Type: BLOOD SPECIMEN Ordering Facility: [facility] Address: [address] [place] [address] Performed By: #### 2 777-1, 30516-2, #### [facility] CLIA [id number] [address] OF [facility] ALP [Catalytic activity/Vol] 51 U/L Normal 38-113 [facility] Comment on above: Order Comment: Speci men Type: BLOOD SPECIMEN Ordering Facility: [facility] Address: [address] [place] [address] Performed By: #### 2 777-1, 37538-5, #### [facility] CLIA [id number] [address] STATES OF [facility] ALT With P-5'-P [Catalytic activity/Vol] 11 U/L Normal 10-54 [facility] Comment on above: Order Comment: Speci men Type: BLOOD SPECIMEN Ordering Facility: [facility] Address: [address] [place] [address] Performed By: #### 2 777-1, 81291-8, #### [facility] CLIA [id number] [address] Anion gap [Moles/Vol] 10 mmol/L Normal 8-15 [facility] Comment on above: Order Comment: Speci men Type: BLOOD SPECIMEN Ordering Facility: [facility] Address: [address] [place] [address] Performed By: #### 2 777-1, , #### [facility] CLIA [id number] [address] [place] [address] [place] AST With P-5'-P [Catalytic activity/Vol] 20 U/L Normal 14-40 [facility] Comment on above: Order Comment: Speci men Type: BLOOD SPECIMEN Ordering Facility: [facility] Address: [address] [place] [address] Performed By: #### 2 777-1, , #### [facility] CLIA [id number] [address] [place] [address] [place] Bilirubin [Mass/Vol] 0.6 mg/dL Normal 0.2-1.3 [facility] Comment on above: Order Comment: Speci men Type: BLOOD SPECIMEN Ordering Facility: [facility] Address: [address] [place] [address] Performed By: #### 2 777-1, , #### [facility] CLIA [id number] [address] [place] [address] [place] Calcium [Mass/Vol] 9.3 mg/dL Normal 8.5-10.2 [facility] Comment on above: Order Comment: Speci men Type: BLOOD SPECIMEN Ordering Facility: [facility] Address: [address] [place] [address] Performed By: #### 2 777-1, , #### [facility] CLIA [id number] [address] [place] [address] [place] Chloride [Moles/Vol] 99 mmol/L Normal 98-107 [facility] [facility] Comment on above: Order Comment: Speci men Type: BLOOD SPECIMEN Ordering Facility: [facility] Address: [address] [place] [address] Performed By: #### 2 777-1, , #### [facility] CLIA [id number] [address] [place] [address] [place] CO2 [Moles/Vol] 37 mmol/L High 22-30 [facility] Comment on above: Order Comment: Speci men Type: BLOOD SPECIMEN Ordering Facility: [facility] Address: [address] [place] [address] Performed By: #### 2 777-1, 80218-7, #### [facility] CLIA [id number] [address] [place] Creatinine [Mass/Vol] 0.40 mg/dL Low 0.73-1.22 [facility] Comment on above: Order Comment: Speci men Type: BLOOD SPECIMEN Ordering Facility: [facility] Address: [address] [place] [address] Performed By: #### 2 777-1, , #### [facility] CLIA [id number] [address] STATES OF [facility] eGFRcr SerPlBld CKD-EPI 2020 106 mL/min/1.73m??? Normal >=60 [facility] Comment on above: Order Comment: Speci men Type: BLOOD SPECIMEN Ordering Facility: [facility] Address: [address] [place] [address] Result Comment: Genet mated Glomerular Filtration Rate [...] actual GFR. Performed By: #### 2 777-1, 90468-0, #### [facility] CLIA [id number] [address] [place] Glucose [Mass/Vol] 85 mg/dL Normal 74-99 [facility] Comment on above: Order Comment: Speci men Type: BLOOD SPECIMEN Ordering Facility: [facility] Address: [address] [place] [address] Result Comment: The [place] [employer] (ADA) provides guidance for cutoff [...] Standards of Medical Care in Diabetes 2016, [place] [employer]. Diabetes Care. 2016.39(Suppl 1). Performed By: #### 2 777-1, 38662-0, #### [facility] CLIA [id number] 1 [place] [address] [place] Potassium [Moles/Vol] 2.6 mmol/L Low 3.7-5.1 [facility] Comment on above: Order Comment: Melia zuluaga Type: BLOOD SPECIMEN Ordering Facility: [facility] Address: [address] [place] [address] Performed By: #### 2 777-1, , #### [facility] CLIA [id number] 1 [place] [address] [place] Protein [Mass/Vol] 6.1 g/dL Low 6.3-8.0 [facility] Comment on above: Order Comment: Melia zuluaga Type: BLOOD SPECIMEN Ordering Facility: [facility] Address: [address] [place] [address] Performed By: #### 2 777-1, , #### [facility] CLIA [id number] 1 [place] [address] [place] Sodium [Moles/Vol] 146 mmol/L High 136-144 [facility] Comment on above: Order Comment: Melia zuluaga Type: BLOOD SPECIMEN Ordering Facility: [facility] Address: [address] [place] [address] Performed By: #### 2 777-1, , #### [facility] CLIA [id number] 1 [place] [address] [place] Urea nitrogen [Mass/Vol] 22 mg/dL Normal 9-24 [facility] Comment on above: Order Comment: Speci men Type: BLOOD SPECIMEN Ordering Facility: [facility] Address: [facility] [place] [address] Performed By: #### 2 777-1, 32140-5, 54208-4 #### [facility] CLIA [id number] 1 [place] [id number] [place] ECHOon 02-26-2025 Echocardiography Echocardiography Rep ort: Transthoracic Echo [facility] Date of service: 02/26/2025 1:57:46 PM [facility] Ordering physician: KAREEM PEREZ Exam indication: Abnormal ECG Technologist: Summer Calderon [facility] Interpreting physician: Dedra Pruitt MD PATIENT: Name: [...] * * Final * * * CC [employer] [facility] : [id number] yngoDynamicsSISUID Normal [facility] Magnesium SerPl-mCncon 02-26 Magnesium [Mass/Vol] 2.3 mg/dL Normal 1.7-2.3 [facility] Comment on above: Order Comment: Speci men Type: BLOOD SPECIMEN Ordering Facility: [facility] Address: [address] [place] [address] Performed By: #### 2 777-1, 53053-7, 68817-9 #### [facility] CLIA [id number] [address] NUTRITIONon 02-26-2025 NUTRITION HNO ID: [id number] Author: GERRY MILLAN RD Service: Nutrition Therapy [...] per GI note now , 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 + CT imaging for large obstructing Hiatal Hernia Nutrition Intake Prior to Admission: Unable to determine Current Nutrition Intake: NPO Dosing Weight: 64.2 kg (141 lb 8.6 oz) Estimated kilocalorie needs: 9658-1904 Calorie Calculation Method: 30-35 kcals/kg Estimated protein [...] Airways Drain Duration GI/ Feeding 02/26/25 1143 [facility] Gastric Left Naris <1 day MNT Billing: $ Routine Care : 1 unit (3 attempts, @ EGD) SIGNATURE: Gerry Millan RD PATIENT NAME: Jeanie Rankin DATE: February 26, 2025 TIME: 7:23 AM Normal [facility] Pathology biopsy report Bret (Tiss)on 02-26-2025 AP DISCLAIMER Normal [facility] Comment on above: Order Comment: Speci men Type: TISSUE SPECIMENOrdering Facility: [facility] Address: [address] [place] [address] Result Comment: Eliseo garcia Developed Test (LDT) Disclaimer: Performance characteristics of immunohistochemical, immunofluorescent, and chromogenic in-situ hybridization tests have been determined by the performing laboratory within the [facility] Department of Pathology and Laboratory Medicine ([facility], [facility], [facility], [facility], [facility], [facility], or [facility]) in a manner consistent with CLIA requirements. One or more of these tests may not have been cleared or approved by the FDA. The [facility] Department of Pathology and Laboratory Medicine is regulated under CLIA as qualified to perform high-complexity testing. These tests are used for clinical purposes. These should not be regarded as investigational or for research. Positive and negative controls stain appropriately. Performed By: #### 6 6121-5 ####[id number] [address] CASE REPORT Normal [facility] Comment on above: Order Comment: Melia zuluaga Type: TISSUE SPECIMENOrdering Facility: [facility] Address: [address] [place] [address] Result Comment: [facility] Pathology Report Case: [id number] Authorizing Provider: Nadiya Camilo, Collected: 02/26/2025 11:36 AM Ordering Location: [facility] Received: 02/26/2025 03:29 PM Pathologist: Pilo Lambert MD Specimen: Stomach, Antrum, Biopsy, r/o dysplasia and malignancy Performed By: #### 6 6121-5 ####[facility] [id number] [address] STATES OF [facility] CLINICAL HISTORY Normal [facility] Comment on above: Order Comment: Melia zuluaga Type: TISSUE SPECIMENOrdering Facility: [facility] Address: [address] [place] [address] Result Comment: Asso ciated Diagnoses: K31.1 - Gastric outlet obstruction (HCC) R11.2 - Nausea and vomiting, unspecified vomiting type Z46.59 - Encounter for nasogastric (NG) tube placement Performed By: #### 6 6121-5 ####[facility] [id number] [address] DIAGNOSIS COMMENT The case was reviewe d by Dr. Tricia Worrell who agrees with the interpretation. Normal [facility] Comment on above: Order Comment: Speci men Type: TISSUE SPECIMENOrdering Facility: [facility] Address: [address] [place] [address] Performed By: #### 6 6121-5 ####[facility] [id number] [address] FINAL DIAGNOSIS Normal [facility] Comment on above: Order Comment: Speci men Type: TISSUE SPECIMENOrdering Facility: [facility] Address: [address] [place] [address] Result Comment: Nette patel Antrum, Biopsy: - Gastric mucosa with intestinal metaplasia (see comment). - Negative for dysplasia and malignancy. at 1228 EDT Performed By: #### 6 6121-5 ####[facility] [id number] [address] FINAL PERFORMING LAB Normal [facility] Comment on above: Order Comment: Speci men Type: TISSUE SPECIMENOrdering Facility: [facility] Address: [address] [place] [address] Result Comment: Diag nostic interpretation performed at: [facility], [address] [place] [address] CLIA# [id number] Shrub Grower: Chip Dennis MD Performed By: #### 6 6121-5 ####[facility] [id number] [address] GROSS DESCRIPTION [facility] Comment on above: Order Comment: Speci men Type: TISSUE SPECIMENOrdering Facility: [facility] Address: [address] [place] [address] Result Comment: Larry. Anai patel, Antrum, Biopsy Received in formalin and designated "stomach antrum biopsy" are fragments of pantoja tissue with an aggregate measurement of 0.8 x 0.3 x 0.1 cm. The specimen is entirely submitted in cassette A1. KM February 26, 2025 3:32 PM Gross examination performed at [facility], [address] [place] [address] Performed By: #### 6 6121-5 ####[facility] [id number] [address] [place] Phosphate SerPl-mCncon 02-26 Phosphate [Mass/Vol] 2.7 mg/dL Normal 2.7-4.8 [facility] Comment on above: Order Comment: Speci men Type: BLOOD SPECIMEN Ordering Facility: [facility] Address: [address] [place] [address] [place] [address] Performed By: #### 2 777-1, 34561-9, 46408-4 #### [facility] CLIA [id number] [address] [place] [address] [place] THERAPY NTon 02-26-2025 THERAPY NT HNO ID: [id number] Author: ELIDIA MENJIVAR PT Service: Physical Therapy Author Type: Physical Therapist Type: Therapy (PT/OT/Speech/Resp) Filed: 02/26/2025 10:43 Note Text: PHYSICAL THERAPY MISSED VISIT SERVICE DATE: 02/26/2025 SERVICE TIME: 1042 ROOM: [place] [address]) Patient not seen due to Test / Procedure. Off the floor at [facility]. SIGNATURE: Elidia Menjivar PT PATIENT NAME: Jeanie Oliverc DATE: February 26, 2025 TIME: 10:43 AM Normal [facility] THERAPY NT HNO ID: [id number] Author: MIRTA LEON CCC-EDUARDO Service: Speech/Swallow Author Type: Speech Language Pathologist Type: Therapy (PT/OT/Speech/Resp) Filed: 02/26/2025 09:28 Note Text: SPEECH THERAPY MISSED VISIT SERVICE DATE: 02/26/2025 SERVICE TIME: 926 ROOM: [id number] Patient not seen due to Test / Procedure. NPO for EGD. SIGNATURE: MAGGIE ParksLOAN ADVISER PATIENT NAME: Jeanie Oliverc DATE: February 26, 2025 TIME: 9:28 AM Normal [facility] Upper GI endoscopyon 025 Upper GI endoscopy [facility] Gastrointestinal Endoscopy Patient Name: Jeanie Rankin Procedure Date: 02/26/2025 10:56 AM Date of : 1940 Admit Type: Inpatient Room: [place] [address] Gender: Male Note Status: Finalized Attending MD: Nadiya Camilo MD, [id number] Procedure: Upper GI endoscopy Indications: Suspected gastric [...] antiplatelet agents. Procedure Code(s): --- Professional --- 46247, Esophagogastroduodenoscopy, flexible, transoral; with biopsy, single or multiple --- Technical --- 15021, Esophagogastroduodenoscopy, flexible, transoral; with biopsy, single or multiple Diagnosis Code(s): --- Professional --- K20.90, Esophagitis, unspecified without bleeding K31.89, Other diseases of stomach and duodenum --- Technical --- K20.90, Esophagitis, unspecified without bleeding K31.89, Other diseases of stomach and duodenum CPT copyright 202 [place]. All rights reserved. The codes documented in this report are preliminary and upon crystallography teacher review may be revised to meet current compliance requirements. Attending Participation: I personally performed the entire procedu (more content not included)... Normal [facility] Basic metabolic 2000 panelon 02-25-2025 Anion gap [Moles/Vol] 10 mmol/L Normal 8-15 [facility] Comment on above: Order Comment: Speci men Type: BLOOD SPECIMEN Ordering Facility: [facility] Address: [address] [place], [place] [address] Performed By: #### 2 4321-2 #### [facility] CLIA [id number] [address] [place] Calcium [Mass/Vol] 9.7 mg/dL Normal 8.5-10.2 [facility] Comment on above: Order Comment: Speci men Type: BLOOD SPECIMEN Ordering Facility: [facility] Address: [address] [place] [address] Performed By: #### 2 4321-2 #### [facility] CLIA [id number] 1 [place] [address] [place] Chloride [Moles/Vol] 94 mmol/L Low 98-107 [facility] Comment on above: Order Comment: Speci men Type: BLOOD SPECIMEN Ordering Facility: [facility] Address: [address] [place] [address] Performed By: #### 2 4321-2 #### [facility] CLIA [id number] [address] [place] CO2 [Moles/Vol] 39 mmol/L High 22-30 [facility] Comment on above: Order Comment: Speci men Type: BLOOD SPECIMEN Ordering Facility: [facility] Address: [address] [place] [address] Performed By: #### 2 4321-2 #### [facility] CLIA [id number] [address] [place] Creatinine [Mass/Vol] 0.55 mg/dL Low 0.73-1.22 [facility] Comment on above: Order Comment: Speci men Type: BLOOD SPECIMEN Ordering Facility: [facility] Address: [address] [place] [address] Performed By: #### 2 4321-2 #### [facility] CLIA [id number] [address] [place] eGFRcr SerPlBld CKD-EPI 2020 97 mL/min/1.73m??? Normal >=60 [facility] Comment on above: Order Comment: Speci men Type: BLOOD SPECIMEN Ordering Facility: [facility] Address: [address] [place] [address] Result Comment: Genet mated Glomerular Filtration Rate [...] GFR. Performed By: #### 2 4321-2 #### [facility] CLIA [id number] 1 [place] [address] [place] Glucose [Mass/Vol] 137 mg/dL High 74-99 [facility] Comment on above: Order Comment: Melia zuluaga Type: BLOOD SPECIMEN Ordering Facility: [facility] Address: [address] [place] [address] Result Comment: The [place] [employer] (ADA) provides guidance for cutoff [...] Standards of Medical Care in Diabetes 2016, [place] [employer]. Diabetes Care. 2016.39(Suppl 1). Performed By: #### 2 4321-2 #### [facility] CLIA [id number] 1 [place] [address] [place] Potassium [Moles/Vol] 3.2 mmol/L Low 3.7-5.1 [facility] Comment on above: Order Comment: Melia zuluaga Type: BLOOD SPECIMEN Ordering Facility: [facility] Address: [address] [place] [id number] Performed By: #### 2 4321-2 #### [facility] CLIA [id number] [address] Sodium [Moles/Vol] 143 mmol/L Normal 136-144 [facility] Comment on above: Order Comment: Speci men Type: BLOOD SPECIMEN Ordering Facility: [facility] Address: [address] [place] [address] Performed By: #### 2 4321-2 #### [facility] CLIA [id number] [address] [place] Urea nitrogen [Mass/Vol] 20 mg/dL Normal 9-24 [facility] Comment on above: Order Comment: Speci men Type: BLOOD SPECIMEN Ordering Facility: [facility] Address: [address] [place] [address] Performed By: #### 2 4321-2 #### [facility] CLIA [id number] [address] OF [facility] CBC panel Auto (Bld)on 02-25 Erythrocyte distribution width (RBC) [Ratio] 12.6 % Normal 11.5-15.0 [facility] Comment on above: Order Comment: Speci men Type: BLOOD SPECIMEN Ordering Facility: [facility] Address: [address] [place] [address] Performed By: #### 5 8410-2 #### [facility] CLIA [id number] [address] Hematocrit (Bld) [Volume fraction] 40.1 % Normal 39.0-51.0 [facility] Comment on above: Order Comment: Speci men Type: BLOOD SPECIMEN Ordering Facility: [facility] Address: [address] [place] [address] Performed By: #### 5 8410-2 #### [facility] CLIA [id number] [address] [place] Hemoglobin (Bld) [Mass/Vol] 13.8 g/dL Normal 13.0-17.0 [facility] Comment on above: Order Comment: Speci men Type: BLOOD SPECIMEN Ordering Facility: [facility] Address: [address] [place] [address] Performed By: #### 5 8410-2 #### [facility] CLIA [id number] [address] MCH (RBC) [Entitic mass] 31.9 pg Normal 26.0-34.0 [facility] Comment on above: Order Comment: Speci men Type: BLOOD SPECIMEN Ordering Facility: [facility] Address: [address] [place] [address] Performed By: #### 5 8410-2 #### [facility] CLIA [id number] [address] MCHC (RBC) [Mass/Vol] 34.4 g/dL Normal 30.5-36.0 [facility] Comment on above: Order Comment: Speci men Type: BLOOD SPECIMEN Ordering Facility: [facility] Address: [address] [place] [address] Performed By: #### 5 8410-2 #### [facility] CLIA [id number] [address] MCV (RBC) [Entitic vol] 92.6 fL Normal 80.0-100.0 [facility] Comment on above: Order Comment: Speci men Type: BLOOD SPECIMEN Ordering Facility: [facility] Address: [address] [place] [address] Performed By: #### 5 8410-2 #### [facility] CLIA [id number] [address] Nucleated RBC (Bld) [#/Vol] 10*3/uL Normal <0.01 [facility] Comment on above: Order Comment: Speci men Type: BLOOD SPECIMEN Ordering Facility: [facility] Address: [address] [place] [address] Performed By: #### 5 8410-2 #### [facility] CLIA [id number] [address] Platelet mean volume (Bld) [Entitic vol] 10.3 fL Normal 9.0-12.7 [facility] Comment on above: Order Comment: Speci men Type: BLOOD SPECIMEN Ordering Facility: [facility] Address: [address] [place] [address] Performed By: #### 5 8410-2 #### [facility] CLIA [id number] [address] Platelets (Bld) [#/Vol] 227 10*3/uL Normal 150-400 [facility] Comment on above: Order Comment: Speci men Type: BLOOD SPECIMEN Ordering Facility: [facility] Address: [address] [place] [address] Performed By: #### 5 8410-2 #### [facility] CLIA [id number] [address] RBC (Bld) [#/Vol] 4.33 10*6/uL Normal 4.20-6.00 [facility] Comment on above: Order Comment: Speci men Type: BLOOD SPECIMEN Ordering Facility: [facility] Address: [address] [place] [address] Performed By: #### 5 8410-2 #### [facility] CLIA [id number] [address] WBC (Bld) [#/Vol] 8.90 10*3/uL Normal 3.70-11.00 [facility] Comment on above: Order Comment: Speci men Type: BLOOD SPECIMEN Ordering Facility: [facility] Address: [address] [place] [address] Performed By: #### 5 8410-2 #### [facility] CLIA [id number] [address] CONSULTon 02-25-2025 CONSULT HNO ID: [id number] Author: RUSSELL LOPEZ MD Service: General Surgery [...] 02/24/2025 Allergen Noted Reaction ADHESIVE 03/18/2009 NEOSPORIN [JUXJAOMU-GTNGKTLAEP-XH*08/0 07/2005 Rash and Itching Fully Assessed 02/24/2025 [...] Normal [facility] CONSULT HNO ID: [id number] Author: JULY KENT APRN.SCOUT SNIPER Service: Gastroenterology Author Type: Nurse Practitioner Type: [...] presents with nausea and vomiting. Presented to [facility] on 02/24/2025. On , labs as [...] QTC Calculation(Bazett) : 495 ms Calculated P [place] : 42 degrees Calculated R [place] : 20 degrees Calculated T [place] : -61 degrees SINUS BRADYCARDIA RIGHT BUNDLE BRANCH BLOCK T WAVE ABNORMALITY, CONSIDER INFEROLATERAL ISCHEMIA ABNORMAL ECG WHEN COMPARED WITH ECG OF 25-Feb-2025 18:58, NO SIGNIFICANT CHANGE WAS FOUND Confirmed by ZAKIA ESTRADA MD ([id number]) on 02/27/2025 6:40:47 PM NAME : JEANIE RANKIN PID : [id number] : 1940 Gender : Male Race : ORD : [id number] Procedure Date : Feb 25 2025 21:08:19 Edit Date : Feb 27 2025 18:40:52 Diagnosis: SINUS BRADYCARDIA RIGHT BUNDLE BRANCH BLOCK T WAVE ABNORMALITY, CONSIDER INFEROLATERAL ISCHEMIA ABNORMAL ECG WHEN COMPARED WITH ECG OF 25-Feb-2025 18:58, NO SIGNIFICANT CHANGE WAS FOUND Confirmed by ZAKIA ESTRADA MD ([id number]) on 02/27/2025 6:40:47 PM Test Reason : Arrhythmia Location : 200 : [facility] 5427 Overread By : ZAKIA ESTRADA MD Edited By : ZAKIA ESTRADA MD Referred By : , Acquired by : DILLON SANTIAGO [facility] ECG COMPLETE Ventricular Rate : 5 6 BPM Atrial Rate : 56 BPM P-R Interval : 210 ms QRS Duration : 158 ms Q-T Interval : 504 ms QTC Calculation(Bazett) : 486 ms Calculated P [place] : 30 degrees Calculated R [place] : 33 degrees Calculated T [place] : -54 degrees SINUS BRADYCARDIA WITH 1ST DEGREE A-V BLOCK RIGHT BUNDLE BRANCH BLOCK T WAVE ABNORMALITY, CONSIDER INFEROLATERAL ISCHEMIA ABNORMAL ECG NO PREVIOUS ECGS AVAILABLE Confirmed by ZAKIA ESTRADA MD ([id number]) on 02/27/2025 6:40:00 PM NAME : JEANIE RANKIN PID : [id number] : 1940 Gender : Male Race : ORD : [id number] Procedure Date : Feb 25 2025 18:58:18 Edit Date : Feb 27 2025 18:40:03 Diagnosis: SINUS BRADYCARDIA WITH 1ST DEGREE A-V BLOCK RIGHT BUNDLE BRANCH BLOCK T WAVE ABNORMALITY, CONSIDER INFEROLATERAL ISCHEMIA ABNORMAL ECG NO PREVIOUS ECGS AVAILABLE Confirmed by ZAKIA ESTRADA MD ([id number]) on 02/27/2025 6:40:00 PM Test Reason : Arrhythmia Location : 200 : [facility] 5427 Overread By : ZAKIA ESTRADA MD Edited By : ZAKIA ESTRADA MD Referred By : , Acquired by : DILLON SANTIAGO [facility] ED NOTEon 02-25-2025 ED NOTE HNO ID: [id number] Author: EUNICE BARKER RN Service: Emergency Medicine Author Type: Registered Nurse Type: ED Notes Filed: 02/25/2025 05:02 Note Text: Called 5400 at this time, RN to call back with questions Normal [facility] ED NOTE HNO ID: [id number] Author: EUNICE BARKER RN Service: Emergency Medicine Author Type: Registered Nurse Type: ED Notes Filed: 02/25/2025 02:14 Note Text: [phone] Jeni Sadler Normal [facility] ED NOTE HNO ID: [id number] Author: EUNICE BARKER RN Service: Emergency Medicine Author Type: Registered Nurse Type: ED Notes Filed: 02/25/2025 01:01 Note Text: NG irrigated with 60 ml of sterile water, then connected to low intermittent suctioning. Normal [facility] ED PROV NOTEon 02-25-2025 ED PROV NOTE HNO ID: [id number] Author: CARLA BERRY MD Service: Emergency Medicine Author Type: Physician Type: ED Provider Notes Filed: 02/25/2025 01:06 Note Text: Attending Note Brief HPI: Jeanie Rankin is a 84 year old male with a PMH as documented below who presents for evaluation of obstruction. Patient presented as a transfer from [place] emergency department where he went with recurrent [...] with signed paperwork at bedside transferred from [place] emergency department for gastric outlet obstruction. NG [...] [facility] Center ED PROV NOTE HNO ID: [id number] Author: CARLA BERRY MD Service: Emergency Medicine Author Type: Physician Type: ED Provider Notes Filed: 02/25/2025 23:56 Note Text: ED Provider Note Patient Name: Jeanie Rankin : 1940 SERVICE DATE: 02/24/25 History Patient presents with: Obstruction: Patient transfer from [place] for gastric outlet obstruction 2nd to herniation of gastric body. Patient arrives with NG tube in his left nare and pt states he has been unable to swallow since eating dinner last night. Pt arrives with [facility] paperwork as well. HPI The patient is an 84-year-old male with a past medical history of diverticulosis, esophagitis as well as previous history of B-cell nodule lymphoma presenting today for evaluation as a transfer from [place] for concern of a gastric outlet obstruction with NG tube in place. The patient states that yesterday evening following eating chicken with gravy and mashed potatoes he developed abdominal discomfort as well as difficulty swallowing resulting in nausea and vomiting without any diarrhea. When he was evaluated at [place], an NG tube was placed and laboratory [...] Melia zuluaga Type: BLOOD SPECIMEN Ordering Facility: [facility] Address: [address] [place] [address] Performed By: #### 2 777-1, 80908-5, #### [facility] CLIA [id number] [address] Troponin T.cardiac High sensitivity method [Mass/Vol] 81 ng/L High <12 [facility] Comment on above: Order Comment: Melia zuluaga Type: BLOOD SPECIMEN Ordering Facility: [facility] Address: [address] [place] [address] Performed By: #### 2 777-1, 70381-8, #### [facility] CLIA [id number] [address] [place] HISTORY PHYSICALon HISTORY PHYSICAL HNO ID: [id number] Author: DEISI VILLALTA MD Service: General Internal Medicine Author Type: Physician Type: H&P Filed: 02/25/2025 06:49 Note Text: DEPARTMENT OF HOSPITAL MEDICINE HISTORY AND PHYSICAL EXAM SERVICE DATE: 02/25/2025 SERVICE TIME: 5:49 AM Primary Care Physician: No primary care provider on file. NIGHT AND WEEKEND COVERAGE: From 7am - 7pm, please call Sound After 7pm, please call cross cover pager #[phone] Subjective CHIEF COMPLAINT: Abdominal pain, nausea and [...] [facility] HISTORY PHYSICAL HNO ID: [id number] Author: ALEJANDRO LAM MD Service: General Surgery [...] full of drainage prior to transfer to [facility] for further management. Patient also had [...] Speci men Type: BLOOD SPECIMEN Ordering Facility: [facility] Address: [address] [place] [address] Performed By: #### 2 777-1, 64518-9, 87711-6 #### [facility] CLIA [id number] [address] [place] [address] [place] NURSING PROGon 02-25-2025 NURSING PROG HNO ID: [id number] Author: MYA OROZCO RN Service: Nursing Author [...] (Portabl e)on 02-24-2025 Abdomen Single View (Portable) [facility] Imaging Services [address] [place] [id number] Abdomen Single View (Portable) MR#: [id number] Acct: [id number] Name: JEANIE RANKIN Rep #: [id number] : 1940 M 84 From: Ronnie Richards MD PCP: Dr. Taylor Zuniga DO Status: REG ER Study: Abdomen Single View (Portable) Date of Exam: 1 Exam# [id number] Ordering Dr: Zee Alonso DO PROCEDURE: ABDOMEN [...] terminates appropriately within the stomach. Reading Location: [id number] CC: Dr. Taylor Zuniga DO; Dr. Zee Alonso DO Special Procedures Nurse: Signed Normal [facility] Abdomen/Pelvis without Conto n 02-24-2025 Abdomen/Pelvis without Cont [facility] Imaging Services [address] [place], [place] [id number] Abdomen/Pelvis without Cont MR#: [id number] Acct: [id number] Name: JEANIE RANKIN Rep #: [id number] : 1940 M 84 From: Ronnie Richards MD PCP: Dr. Taylor Zuniga, DO Status: REG ER Study: Abdomen/Pelvis without Cont Date of Exam: 02/05 05/31 Exam# [id number] Ordering Dr: Zee Alonso DO PROCEDURE: CT [...] exam. No other acute findings. Reading Location: [id number] CC: Dr. Taylor Zuniga DO; Dr. Zee Alonso DO Special Procedures Nurse: Signed Normal [facility] Absolute lymphocyte countOrd ered By: Zee Alonso on 02-24-2025 Lymphocytes Auto (Unsp spec) [#/Vol] 0.43 10*3/uL Low 0.83-4.51 [facility] Absolute neutrophil countOrd ered By: Zee Alonso on 02-24-2025 Neutrophils (Bld) [#/Vol] 8.0 10*3/uL High 2.0-7.7 [facility] Anion gap in Serum or Plasma Ordered By: Zee Alonso on 02-24-2025 Anion gap [Moles/Vol] 13 mmol/L 5-15 [facility] Automated lymphocyte count a s percentage of total leukocytesOrdered By: Zee Alonso on 02-24-2025 Lymphocytes/100 WBC Auto (Unsp spec) 4.6 % Low 19-41 [facility] BUN/creatinine ratioOrdered By: Zee Alonso on 02-24-2025 Urea nitrogen/Creatinine [Mass ratio] 26.8 mg/mg High 10-20 [facility] Basophil percentageOrdered B y: Zee Alonso on 02-24-2025 Basophils/100 WBC (Bld) 0.1 % 0-1 [facility] Bilirubin, totalOrdered By: Zee Alonso on 02-24-2025 Bilirubin [Mass/Vol] 0.57 mg/dL 0.00-1.30 [facility] CBC W/Diff, Automatedon 02-05 Absolute Lymph 0.43 X10 3/uL Low 0.83-4.51 [facility] Comment on above: Performed By: #### L 100.0100, L500.2500 #### [facility] [address] [place], [place], [id number] Absolute Neut 8.0 X10 3/uL High 2.0-7.7 [facility] Comment on above: Performed By: #### L 100.0100, L500.2500 #### [facility] [address] [place], [address] Basophils/100 WBC (Bld) 0.1 % Normal 0-1 [facility] Comment on above: Performed By: #### L 100.0100, L500.2500 #### [facility] [address] [place], [address] Eosinophils/100 WBC (Bld) 0.0 % Normal 0-5 [facility] Comment on above: Performed By: #### L 100.0100, L500.2500 #### [facility] [address] [place], [address] Erythrocyte distribution width (RBC) [Ratio] 12.4 % Normal 11.6-14.6 [facility] Comment on above: Performed By: #### L 100.0100, L500.2500 #### [facility] [place], [address] Hematocrit (Bld) [Volume fraction] 41.8 % Normal 40-54 [facility] Comment on above: Performed By: #### L 100.0100, L500.2500 #### [facility] [address] [place], [address] Hemoglobin (Bld) [Mass/Vol] 14.4 g/dL Normal 13.0-16.5 [facility] Comment on above: Performed By: #### L 100.0100, L500.2500 #### [facility] [address] [place], [address] IG% 0.400 Normal 0.0-0.9 [facility] Comment on above: Result Comment: IG% - Immature Granulocytes (promyelocytes, myelocytes and metamyelocytes) > 1% indicates that a LEFT SHIFT is Present. Performed By: #### L 100.0100, L500.2500 #### [facility] [address] [place], [address] Lymphocytes/100 WBC (Bld) 4.6 % Low 19-41 [facility] Comment on above: Performed By: #### L 100.0100, L500.2500 #### [facility] [address] [place], [address] MCH (RBC) [Entitic mass] 31.5 pg Normal 27.0-32.0 [facility] Comment on above: Performed By: #### L 100.0100, L500.2500 #### [facility] [address] [place], [address] MCHC (RBC) [Mass/Vol] 34.4 g/dL Normal 32-36 [facility] Comment on above: Performed By: #### L 100.0100, L500.2500 #### [facility] [address] [place], [address] MCV (RBC) [Entitic vol] 91.5 fL Normal 80-94 [facility] Comment on above: Performed By: #### L 100.0100, L500.2500 #### [facility] [address] [place], [address] Monocytes/100 WBC (Bld) 8.4 % Normal 0-10 [facility] Comment on above: Performed By: #### L 100.0100, L500.2500 #### [facility] [address] [place], [address] Neutrophils/100 WBC (Bld) 86.5 % High 47-70 [facility] Comment on above: Performed By: #### L 100.0100, L500.2500 #### [facility] [address] [place], [address] Nucleated RBC (Bld) [#/Vol] 0 10*3/uL Normal 0-5 [facility] Comment on above: Performed By: #### L 100.0100, L500.2500 #### [facility] [address] [place], [address] Platelet mean volume (Bld) [Entitic vol] 10.0 fL Normal 6.2-12.0 [facility] Comment on above: Performed By: #### L 100.0100, L500.2500 #### [facility] [address] [place], [address] Platelets (Bld) [#/Vol] 247 10*3/uL Normal 150-450 [facility] Comment on above: Performed By: #### L 100.0100, L500.2500 #### [facility] [address] [place], [address] RBC (Bld) [#/Vol] 4.57 10*6/uL Low 4.6-6.2 [facility] Comment on above: Performed By: #### L 100.0100, L500.2500 #### [facility] [address] [place], [address] RDW SD 41.1 fl Normal 35.1-43.9 [facility] Comment on above: Performed By: #### L 100.0100, L500.2500 #### [facility] [address] [place], [address] WBC (Bld) [#/Vol] 9.3 10*3/uL Normal 4.4-11.[address] [facility] Comment on above: Performed By: #### L 100.0100, L500.2500 #### [facility] [address] [place], [address] CT Chest, Abd, Pel w/Contras ton 02-24-2025 CT Chest, Abd, Pel w/Contrast [facility] Imaging Services [address] [place] [address] CT Chest, Abd, Pel w/Contrast MR#: [id number] Acct: [id number] Name: JEANIE RANKIN Rep #: [id number] : 1940 M 84 From: Gorge Pereyra MD PCP: Dr. Taylor Zuniga DO Status: REG ER Study: CT Chest, Abd, Pel w/Contrast Date of Exam: Exam# [id number] Ordering Dr: Zee Alonso DO PROCEDURE: CT [...] the diaphragm. Gastric decompression recommended. Reading [facility] CC: Dr. Taylor Zuniga DO; Dr. Zee Alonso DO Special Procedures Nurse: Signed Normal [facility] Carbon dioxide, total [Moles /volume] in Central venous bloodOrdered By: Zee Alonso on 02-24-2025 CO2 [Moles/Vol] 36.6 mmol/L High 21.0-32.0 [facility] Chloride assayOrdered By: Maya Alonso on 02-24-2025 Chloride [Moles/Vol] 93 mmol/L Low 98-108 [facility] Comprehensive Metabolic Prof ilon 02-24-2025 Albumin [Mass/Vol] 4.7 g/dL Normal 3.4-4.[address] [facility] Comment on above: Performed By: #### L 100.0100, L500.2500 #### [facility] [address] [place], [address] Albumin/Globulin [Mass ratio] 1.4 {ratio} Normal 0.9-2.4 [facility] Comment on above: Performed By: #### L 100.0100, L500.2500 #### [facility] [address] [place], [address] ALK PHOS 68 U/L Normal 40-129 [facility] Comment on above: Performed By: #### L 100.0100, L500.2500 #### [facility] [address] [place], [address] ALT [Catalytic activity/Vol] 13 U/L Normal <=46 [facility] Comment on above: Performed By: #### L 100.0100, L500.2500 #### [facility] [address] [place], [address] AST [Catalytic activity/Vol] 22 U/L Normal <=37 [facility] Comment on above: Performed By: #### L 100.0100, L500.2500 #### [facility] [address] [place], [address] Bilirubin [Mass/Vol] 0.57 mg/dL Normal 0.00-1.30 [facility] Comment on above: Performed By: #### L 100.0100, L500.2500 #### [facility] [address] [place], [address] BUN/CRE 26.8 RATIO High 10-20 [facility] Comment on above: Performed By: #### L 100.0100, L500.2500 #### [facility] [address] [place], [address] Calcium [Mass/Vol] 10.4 mg/dL Normal 7.6-11.[address] [facility] Comment on above: Performed By: #### L 100.0100, L500.2500 #### [facility] [address] [place], [address] Chloride [Moles/Vol] 93 mmol/L Low 98-108 [facility] Comment on above: Performed By: #### L 100.0100, L500.2500 #### [facility] [address] [place], [address] CO2 [Moles/Vol] 36.6 mmol/L High 21.0-32.0 [facility] Comment on above: Performed By: #### L 100.0100, L500.2500 #### [facility] [address] [place], [address] Creatinine [Mass/Vol] 0.69 mg/dL Low 0.70-1.20 [facility] Comment on above: Performed By: #### L 100.0100, L500.2500 #### [facility] [address] [place], [address] ECRCL 61.97 ml/min Normal 50-250 [facility] Comment on above: Performed By: #### L 100.0100, L500.2500 #### [facility] [address] [place], [address] GAP 13 Normal 5-15 [facility] Comment on above: Performed By: #### L 100.0100, L500.2500 #### [facility] [address] [place], [address] GFR/1.73 sq M.predicted among non-blacks MDRD (S/P/Bld) [Vol rate/Area] 90 mL/min/{1.73_m2} Normal >60 [facility] Comment on above: Result Comment: mL/m in/1.73m2 CKD-EPI Creatinine Equation (2020) Performed By: #### L 100.0100, L500.2500 #### [facility] [address] [place], [address] Globulin (S) [Mass/Vol] 3.2 g/dL Normal 2.2-4.2 [facility] Comment on above: Performed By: #### L 100.0100, L500.2500 #### [facility] [address] [place], [address] Glucose [Mass/Vol] 190 mg/dL High 70-[address] [facility] Comment on above: Performed By: #### L 100.0100, L500.2500 #### [facility] [address] [place], [address] Potassium [Moles/Vol] 3.5 mmol/L Normal 3.3-5.1 [facility] Comment on above: Performed By: #### L 100.0100, L500.2500 #### [facility] [address] [place], [address] Sodium [Moles/Vol] 142 mmol/L Normal 133-[address] [facility] Comment on above: Performed By: #### L 100.0100, L500.2500 #### [facility] [address] [place], [address] T PROT 7.9 g/dL Normal 5.9-8.4 [facility] Comment on above: Performed By: #### L 100.0100, L500.2500 #### [facility] [address] [place], [address] Urea nitrogen [Mass/Vol] 18 mg/dL Normal 4-19 [facility] Comment on above: Performed By: #### L 100.0100, L500.2500 #### [facility] [address] [place], [address] Consultation - Surgicalon Consultation - Surgical [facility] Medical Records Department [address] [place] [address] Consultation - Surgical 02/24/25 1900 MR#: [id number] Acct: [id number] Name: JEANIE RANKIN Rep #: [id number] : 1940 84 From: Windy Jasso MD [...] tertiary care . Windy Jasso M.D. Pager: [phone] [facility] [address] [place] [address], Outpatient [facility]ilion, [address] [place] [address] Office: [phone] HPI Consult Data Date of Consult: 02/25/25 [...] body distended with fluid and air-read pending [facility] Medical History (Updated 02/24/25 @ 21:43 by [...] Neosporin AdvReac Mild Itching Verified 02/24/25 17:08 ([id number])) neomycin (From Neosporin AdvReac Mild Itching Verified 02/24/25 17:08 (qng-oep-irlcc)) polymyxin B (From Neosporin AdvReac Mild Itching Verified 02/24/25 17:08 (gof-phk-cokus)) adhesive tape AdvReac Unknown Verified 02/24/25 17:08 [...] Labs: Labor (more content not included)... Normal [facility] ED NOTEon 02-24-2025 ED NOTE HNO ID: [id number] Author: GUS NICOLE RN Service: ? Author Type: Registered Nurse Type: ED Notes Filed: 02/24/2025 23:23 Note Text: Bed: 35-ED Expected date: Expected time: Means of arrival: Comments: [facility] Emergency Department Summary on 02-24-2025 Emergency Department Summary [facility] Medical Records Department [address] [place] [address] Emergency Department Summary 02/24/25 MR#: [id number] Acct: [id number] Name: JEANIE RANKIN Rep #: [id number] : 1940 84 From: Zee Alonso DO [...] in his stool or black tarry stool. [facility] Medical History (Updated 02/24/25 @ 21:43 by [...] Neosporin AdvReac Mild Itching Verified 02/24/25 17:08 ([id number])) neomycin (From Neosporin AdvReac Mild Itching Verified 02/24/25 17:08 (dnd-pgv-kstoq)) polymyxin B (From Neosporin AdvReac Mild Itching Verified 02/24/25 17:08 (vvn-lyx-smcfg)) adhesive tape AdvReac Unknown Verified 02/24/25 17:08 [...] developed G (more content not included)... Normal [facility] Eosinophil percentageOrdered By: Zee Alonso on 02-24-2025 Eosinophils/100 WBC (Bld) 0.0 % 0-5 [facility] Erythrocyte distribution wid th ratioOrdered By: Zee Alonso on 02-24-2025 Erythrocyte distribution width (RBC) [Ratio] 12.4 % 11.6-14.6 [facility] Erythrocyte distribution wid th standard deviationOrdered By: Zee Alonso on 02-24-2025 Erythrocyte distribution width (RBC) [Ratio] 41.1 fl 35.1-43.9 [facility] Glomerular filtration rate ( GFR) estimation/1.73 sq m using serum, plasma, or whole bOrdered By: Zee Alonso on 02-24-2025 GFR/1.73 sq M.predicted among non-blacks MDRD (S/P/Bld) [Vol rate/Area] 90 mL/min/{1.73_m2} >60 [facility] Comment on above: mL/min/1.73m2 CKD-EP I Creatinine Equation (2020) Hematocrit Auto (Bld) [Volum e fraction]Ordered By: Zee Alonso on 02-24-2025 Hematocrit (Bld) [Volume fraction] 41.8 % 40-54 [facility] Hemoglobin measurementOrdere d By: Zee Alonso on 02-24-2025 Hemoglobin (Bld) [Mass/Vol] 14.4 g/dL 13.0-16.5 [facility] Immature granulocytes/100 WB C Auto (Bld)Ordered By: Zee Alonso on 02-24-2025 Immature granulocytes/100 WBC (Bld) 0.400 % 0.0-0.9 [facility] Comment on above: IG% - Immature Granu locytes (promyelocytes, myelocytes and metamyelocytes) > 1% indicates that a LEFT SHIFT is Present. Laboratory - Chemistry and C hemistry - challengeOrdered By: Zee Alonso on 02-24-2025 AST [Catalytic activity/Vol] 22 U/L <38 [facility] MCV (mean corpuscular volume ) determinationOrdered By: Zee Alonso on 02-24-2025 MCV (RBC) [Entitic vol] 91.5 fL 80-94 [facility] Mean corpuscular hemoglobin (MCH) determinationOrdered By: Zee Alonso on 02-24-2025 MCH (RBC) [Entitic mass] 31.5 pg 27.0-32.0 [facility] Mean corpuscular hemoglobin concentration (MCHC) determinationOrdered By: Zee Alonso on 02-24-2025 MCHC (RBC) [Mass/Vol] 34.4 g/dL 32-36 [facility] Mean platelet volume determi nationOrdered By: Zee Alonso on 02-24-2025 Platelet mean volume (Bld) [Entitic vol] 10.0 fL 6.2-12.0 [facility] Monocyte percentageOrdered B y: Zee Alonso on 02-24-2025 Monocytes/100 WBC (Bld) 8.4 % 0-10 [facility] Neutrophil percentageOrdered By: Zee Alonso on 02-24-2025 Neutrophils/100 WBC (Bld) 86.5 % High 47-70 [facility] Nucleated red blood cell per centageOrdered By: Zee Alonso on 02-24-2025 Nucleated RBC/100 WBC (Bld) [Ratio] 0 % 0-5 [facility] Platelet countOrdered By: Maya Alonso on 02-24-2025 Platelets (Bld) [#/Vol] 247 10*3/uL 150-450 [facility] Potassium measurement (mass/ volume)Ordered By: Zee Alonso on 02-24-2025 Potassium (Unsp spec) [Mass/Vol] 3.5 mmol/L 3.3-5.1 [facility] RBC Auto (Bld) [#/Vol]Ordere d By: Zee Alonso on 02-24-2025 RBC (Bld) [#/Vol] 4.57 10*6/uL Low 4.6-6.2 [facility] Serum creatinine measurement (mass/volume)Ordered By: Zee Alonso on 02-24-2025 Creatinine [Mass/Vol] 0.69 mg/dL Low 0.70-1.20 [facility] Serum globulin measurementOr dered By: Zee Alonso on 02-24-2025 Globulin (S) [Mass/Vol] 3.2 g/dL 2.2-4.2 [facility] Serum glucose measurement (m ass/volume)Ordered By: Zee Alonso on 02-24-2025 Glucose [Mass/Vol] 190 mg/dL High 70-[address] [facility] Serum or plasma alanine kumar otransferase (ALT) measurementOrdered By: Zee Alonso on 02-24-2025 ALT [Catalytic activity/Vol] 13 U/L <47 [facility] Serum or plasma albumin marialuisa urement (mass/volume)Ordered By: Zee Alonso on 02-24-2025 Albumin [Mass/Vol] 4.7 g/dL 3.4-4.[address] [facility] Serum or plasma albumin/glob ulin mass ratioOrdered By: Zee Alonso on 02-24-2025 Albumin/Globulin [Mass ratio] 1.4 {ratio} 0.9-2.4 [facility] Serum or plasma alkaline gilberto sphatase measurementOrdered By: Zee Alonso on 02-24-2025 ALP [Catalytic activity/Vol] 68 U/L 40-129 [facility] Serum or plasma calcium marialuisa urement (mass/volume)Ordered By: Rem Ungdayanara on 02-24-2025 Calcium [Mass/Vol] 10.4 mg/dL 7.6-11.[address] [facility] Serum or plasma urea nitroge n measurement (mass/volume)Ordered By: Remus Alonso on 02-24-2025 Urea nitrogen [Mass/Vol] 18 mg/dL 4-19 [facility] Sodium levelOrdered By: Ibis Alonso on 02-24-2025 Sodium [Moles/Vol] 142 mmol/L 133-[address] [facility] Total proteinOrdered By: Radha Alonso on 02-24-2025 Protein [Mass/Vol] 7.9 g/dL 5.9-8.[address] [facility] White blood cell (WBC) count Ordered By: Zee Alonso on 02-24-2025 WBC (Bld) [#/Vol] 9.3 10*3/uL 4.4-11.[address] [facility] Absolute lymphocyte countOrd ered By: Taylor Fast on 12-18-2024 Lymphocytes Auto (Unsp spec) [#/Vol] 1.65 10*3/uL 0.83-4.51 [facility] Absolute neutrophil countOrd ered By: Taylor Fast on 12-18-2024 Neutrophils (Bld) [#/Vol] 1.4 10*3/uL Low 2.0-7.7 [facility] Anion gap in Serum or Plasma Ordered By: Taylor Fast on 12-18-2024 Anion gap [Moles/Vol] 10 mmol/L 5-15 [facility] Automated lymphocyte count a s percentage of total leukocytesOrdered By: Taylor Fast on 12-18-2024 Lymphocytes/100 WBC Auto (Unsp spec) 42.4 % High 19-41 [facility] BUN/creatinine ratioOrdered By: Taylor Fast on 12-18-2024 Urea nitrogen/Creatinine [Mass ratio] 39.5 mg/mg High 10-20 [facility] Basophil percentageOrdered B y: Taylor Fast on 12-18-2024 Basophils/100 WBC (Bld) 0.5 % 0-1 [facility] Bilirubin, totalOrdered By: Taylor Fast on 12-18-2024 Bilirubin [Mass/Vol] 0.44 mg/dL 0.00-1.30 [facility] CBC W/Diff, Automatedon 12-05 Absolute Lymph 1.65 X10 3/uL Normal 0.83-4.51 [facility] Comment on above: Performed By: #### L 506.1001, L500.4050, L501.9520, L501.9985, L100.0100 #### [facility] [address] [place], [address] Absolute Neut 1.4 X10 3/uL Low 2.0-7.7 [facility] [facility] Comment on above: Performed By: #### L 506.1001, L500.4050, L501.9520, L501.9985, L100.0100 #### [facility] [address] [place], [address] Basophils/100 WBC (Bld) 0.5 % Normal 0-1 [facility] Comment on above: Performed By: #### L 506.1001, L500.4050, L501.9520, L501.9985, L100.0100 #### [facility] [address] [place], [address] Eosinophils/100 WBC (Bld) 4.1 % Normal 0-5 [facility] Comment on above: Performed By: #### L 506.1001, L500.4050, L501.9520, L501.9985, L100.0100 #### [facility] [address] [place], [address] Erythrocyte distribution width (RBC) [Ratio] 12.3 % Normal 11.6-14.6 [facility] Comment on above: Performed By: #### L 506.1001, L500.4050, L501.9520, L501.9985, L100.0100 #### [facility] [address] [place], [address] Hematocrit (Bld) [Volume fraction] 36.7 % Low 40-54 [facility] Comment on above: Performed By: #### L 506.1001, L500.4050, L501.9520, L501.9985, L100.0100 #### [facility] [address] [place], [address] Hemoglobin (Bld) [Mass/Vol] 12.4 g/dL Low 13.0-16.5 [facility] Comment on above: Performed By: #### L 506.1001, L500.4050, L501.9520, L501.9985, L100.0100 #### [facility] [address] [place], [address] IG% 0.300 Normal 0.0-0.9 [facility] Comment on above: Result Comment: IG% - Immature Granulocytes (promyelocytes, myelocytes and metamyelocytes) > 1% indicates that a LEFT SHIFT is Present. Performed By: #### L 506.1001, L500.4050, L501.9520, L501.9985, L100.0100 #### [facility] [address] [place], [address] Lymphocytes/100 WBC (Bld) 42.4 % High 19-41 [facility] Comment on above: Performed By: #### L 506.1001, L500.4050, L501.9520, L501.9985, L100.0100 #### [facility] [address] [place], [address] MCH (RBC) [Entitic mass] 31.8 pg Normal 27.0-32.0 [facility] Comment on above: Performed By: #### L 506.1001, L500.4050, L501.9520, L501.9985, L100.0100 #### [facility] [address] [place], [address] MCHC (RBC) [Mass/Vol] 33.8 g/dL Normal 32-36 [facility] Comment on above: Performed By: #### L 506.1001, L500.4050, L501.9520, L501.9985, L100.0100 #### [facility] [address] [place], [address] MCV (RBC) [Entitic vol] 94.1 fL High 80-94 [facility] Comment on above: Performed By: #### L 506.1001, L500.4050, L501.9520, L501.9985, L100.0100 #### [facility] [address] [place], [address] Monocytes/100 WBC (Bld) 16.5 % High 0-10 [facility] Comment on above: Performed By: #### L 506.1001, L500.4050, L501.9520, L501.9985, L100.0100 #### [facility] [address] [place], [address] Neutrophils/100 WBC (Bld) 36.2 % Low 47-70 [facility] Comment on above: Performed By: #### L 506.1001, L500.4050, L501.9520, L501.9985, L100.0100 #### [facility] [address] [place], [address] Nucleated RBC (Bld) [#/Vol] 0 10*3/uL Normal 0-5 [facility] Comment on above: Performed By: #### L 506.1001, L500.4050, L501.9520, L501.9985, L100.0100 #### [facility] [address] [place], [address] Platelet mean volume (Bld) [Entitic vol] 10.1 fL Normal 6.2-12.0 [facility] Comment on above: Performed By: #### L 506.1001, L500.4050, L501.9520, L501.9985, L100.0100 #### [facility] [address] [place], [address] Platelets (Bld) [#/Vol] 196 10*3/uL Normal 150-450 [facility] Comment on above: Performed By: #### L 506.1001, L500.4050, L501.9520, L501.9985, L100.0100 #### [facility] [address] [place], [address] RBC (Bld) [#/Vol] 3.90 10*6/uL Low 4.6-6.2 [facility] Comment on above: Performed By: #### L 506.1001, L500.4050, L501.9520, L501.9985, L100.0100 #### [facility] [address] [place], [address] RDW SD 42.7 fl Normal 35.1-43.9 [facility] Comment on above: Performed By: #### L 506.1001, L500.4050, L501.9520, L501.9985, L100.0100 #### [facility] [address] [place], [address] WBC (Bld) [#/Vol] 3.9 10*3/uL Low 4.4-11.[address] [facility] Comment on above: Performed By: #### L 506.1001, L500.4050, L501.9520, L501.9985, L100.0100 #### [facility] [address] [place], [address] Carbon dioxide, total [Moles /volume] in Central venous bloodOrdered By: Taylor Fast on 12-18-2024 CO2 [Moles/Vol] 25.8 mmol/L 21.0-32.0 [facility] Chloride assayOrdered By: De bra Fast on 12-18-2024 Chloride [Moles/Vol] 100 mmol/L 98-108 [facility] Comprehensive Metabolic Prof ilon 12-18-2024 Albumin [Mass/Vol] 4.0 g/dL Normal 3.4-4.[address] [facility] Comment on above: Performed By: #### L 506.1001, L500.4050, L501.9520, L501.9985, L100.0100 #### [facility] [address] [place], [address] Albumin/Globulin [Mass ratio] 1.5 {ratio} Normal 0.9-2.4 [facility] Comment on above: Performed By: #### L 506.1001, L500.4050, L501.9520, L501.9985, L100.0100 #### [facility] [address] [place], [address] ALK PHOS 70 U/L Normal 40-129 [facility] Comment on above: Performed By: #### L 506.1001, L500.4050, L501.9520, L501.9985, L100.0100 #### [facility] [address] [place], [address] ALT [Catalytic activity/Vol] 14 U/L Normal <=46 [facility] Comment on above: Performed By: #### L 506.1001, L500.4050, L501.9520, L501.9985, L100.0100 #### [facility] [address] [place], [address] AST [Catalytic activity/Vol] 22 U/L Normal <=37 [facility] Comment on above: Performed By: #### L 506.1001, L500.4050, L501.9520, L501.9985, L100.0100 #### [facility] [address] [place], [address] Bilirubin [Mass/Vol] 0.44 mg/dL Normal 0.00-1.30 [facility] Comment on above: Performed By: #### L 506.1001, L500.4050, L501.9520, L501.9985, L100.0100 #### [facility] [address] [place], [address] BUN/CRE 39.5 RATIO High 10-20 [facility] Comment on above: Performed By: #### L 506.1001, L500.4050, L501.9520, L501.9985, L100.0100 #### [facility] [address] [place], [address] Calcium [Mass/Vol] 9.4 mg/dL Normal 7.6-11.[address] [facility] Comment on above: Performed By: #### L 506.1001, L500.4050, L501.9520, L501.9985, L100.0100 #### [facility] [address] [place], [address] Chloride [Moles/Vol] 100 mmol/L Normal 98-108 [facility] Comment on above: Performed By: #### L 506.1001, L500.4050, L501.9520, L501.9985, L100.0100 #### [facility] [address] [place], [address] CO2 [Moles/Vol] 25.8 mmol/L Normal 21.0-32.0 [facility] Comment on above: Performed By: #### L 506.1001, L500.4050, L501.9520, L501.9985, L100.0100 #### [facility] [address] [place], [address] Creatinine [Mass/Vol] 0.38 mg/dL Low 0.70-1.20 [facility] Comment on above: Performed By: #### L 506.1001, L500.4050, L501.9520, L501.9985, L100.0100 #### [facility] [address] [place], [address] GAP 10 Normal 5-15 [facility] Comment on above: Performed By: #### L 506.1001, L500.4050, L501.9520, L501.9985, L100.0100 #### [facility] [address] [place], [address] GFR/1.73 sq M.predicted among non-blacks MDRD (S/P/Bld) [Vol rate/Area] 108 mL/min/{1.73_m2} Normal >60 [facility] Comment on above: Result Comment: mL/m in/1.73m2 CKD-EPI Creatinine Equation (2020) Performed By: #### L 506.1001, L500.4050, L501.9520, L501.9985, L100.0100 #### [facility] [address] [place], [address] Globulin (S) [Mass/Vol] 2.6 g/dL Normal 2.2-4.2 [facility] Comment on above: Performed By: #### L 506.1001, L500.4050, L501.9520, L501.9985, L100.0100 #### [facility] [address] [place], [address] Glucose [Mass/Vol] 91 mg/dL Normal 70-[address] [facility] Comment on above: Performed By: #### L 506.1001, L500.4050, L501.9520, L501.9985, L100.0100 #### [facility] [address] [place], [address] Potassium [Moles/Vol] 4.3 mmol/L Normal 3.3-5.1 [facility] Comment on above: Performed By: #### L 506.1001, L500.4050, L501.9520, L501.9985, L100.0100 #### [facility] [address] [place], [address] Sodium [Moles/Vol] 135 mmol/L Normal 133-[address] [facility] Comment on above: Performed By: #### L 506.1001, L500.4050, L501.9520, L501.9985, L100.0100 #### [facility] [address] [place], [address] T PROT 6.5 g/dL Normal 5.9-8.4 [facility] Comment on above: Performed By: #### L 506.1001, L500.4050, L501.9520, L501.9985, L100.0100 #### [facility] [address] [place], [address] Urea nitrogen [Mass/Vol] 15 mg/dL Normal 4-19 [facility] Comment on above: Performed By: #### L 506.1001, L500.4050, L501.9520, L501.9985, L100.0100 #### [facility] [address] [place], [address] Eosinophil percentageOrdered By: Taylor Fast on 12-18-2024 Eosinophils/100 WBC (Bld) 4.1 % 0-5 [facility] Erythrocyte distribution wid th ratioOrdered By: Taylor Fast on 12-18-2024 Erythrocyte distribution width (RBC) [Ratio] 12.3 % 11.6-14.6 [facility] Erythrocyte distribution wid th standard deviationOrdered By: Taylor Fast on 12-18-2024 Erythrocyte distribution width (RBC) [Ratio] 42.7 fl 35.1-43.9 [facility] Glomerular filtration rate ( GFR) estimation/1.73 sq m using serum, plasma, or whole bOrdered By: on 12-18-2024 GFR/1.73 sq M.predicted among non-blacks MDRD (S/P/Bld) [Vol rate/Area] 108 mL/min/{1.73_m2} >60 [facility] Comment on above: mL/min/1.73m2 CKD-EP I Creatinine Equation (2020) Hematocrit Auto (Bld) [Volum e fraction]Ordered By: Taylor on 12-18-2024 Hematocrit (Bld) [Volume fraction] 36.7 % Low 40-54 [facility] Hemoglobin A1con 12-18-2024 HbA1c (Bld) [Mass fraction] 5.2 % Normal <=5.6 [facility] Comment on above: Result Comment: Norm al < 5.7 % Prediabetic 5.7 - 6.4 % Diabetic >or= 6.5 % Please note range changes. Performed By: #### L 506.1001, L500.4050, L501.9520, L501.9985, L100.0100 #### [facility] [place], [address] Hemoglobin A1c percentageOrd ered By: on 12-18-2024 HbA1c (Bld) [Mass fraction] 5.2 % <5.7 [facility] Comment on above: Normal < 5.7 % Predi abetic 5.7 - 6.4 % Diabetic >or= 6.5 % Please note range changes. Hemoglobin measurementOrdere d By: on 12-18-2024 Hemoglobin (Bld) [Mass/Vol] 12.4 g/dL Low 13.0-16.5 [facility] Immature granulocytes/100 WB C Auto (Bld)Ordered By: Taylor on 12-18-2024 Immature granulocytes/100 WBC (Bld) 0.300 % 0.0-0.9 [facility] Comment on above: IG% - Immature Granu locytes (promyelocytes, myelocytes and metamyelocytes) > 1% indicates that a LEFT SHIFT is Present. Laboratory - Chemistry and C hemistry - challengeOrdered By: on 12-18-2024 AST [Catalytic activity/Vol] 22 U/L <38 [facility] MCV (mean corpuscular volume ) determinationOrdered By: on 12-18-2024 MCV (RBC) [Entitic vol] 94.1 fL High 80-94 [facility] Mean corpuscular hemoglobin (MCH) determinationOrdered By: on 12-18-2024 MCH (RBC) [Entitic mass] 31.8 pg 27.0-32.0 [facility] Mean corpuscular hemoglobin concentration (MCHC) determinationOrdered By: 12-18-2024 MCHC (RBC) [Mass/Vol] 33.8 g/dL 32-36 [facility] Mean platelet volume determi nationOrdered By: on 12-18-2024 Platelet mean volume (Bld) [Entitic vol] 10.1 fL 6.2-12.0 [facility] Monocyte percentageOrdered B y: on 12-18-2024 Monocytes/100 WBC (Bld) 16.5 % High 0-10 [facility] Neutrophil percentageOrdered By: on 12-18-2024 Neutrophils/100 WBC (Bld) 36.2 % Low 47-70 [facility] Nucleated red blood cell per centageOrdered By: on 12-18-2024 Nucleated RBC/100 WBC (Bld) [Ratio] 0 % 0-5 [facility] Platelet countOrdered By: De armando on 12-18-2024 Platelets (Bld) [#/Vol] 196 10*3/uL 150-450 [facility] Potassium measurement (mass/ volume)Ordered By: on 12-18-2024 Potassium (Unsp spec) [Mass/Vol] 4.3 mmol/L 3.3-5.1 [facility] RBC Auto (Bld) [#/Vol]Ordere d By: on 12-18-2024 RBC (Bld) [#/Vol] 3.90 10*6/uL Low 4.6-6.2 [facility] Serum creatinine measurement (mass/volume)Ordered By: Taylor on 12-18-2024 Creatinine [Mass/Vol] 0.38 mg/dL Low 0.70-1.20 [facility] Serum globulin measurementOr dered By: Taylor Fast on 12-18-2024 Globulin (S) [Mass/Vol] 2.6 g/dL 2.2-4.2 [facility] Serum glucose measurement (m ass/volume)Ordered By: Taylor on 12-18-2024 Glucose [Mass/Vol] 91 mg/dL 70-[address] [facility] Serum or plasma alanine kumar otransferase (ALT) measurementOrdered By: on 12-18-2024 ALT [Catalytic activity/Vol] 14 U/L <47 [facility] Serum or plasma albumin marialuisa urement (mass/volume)Ordered By: Taylor on 12-18-2024 Albumin [Mass/Vol] 4.0 g/dL 3.4-4.[address] [facility] Serum or plasma albumin/glob ulin mass ratioOrdered By: Taylor on 12-18-2024 Albumin/Globulin [Mass ratio] 1.5 {ratio} 0.9-2.4 [facility] Serum or plasma alkaline gilberto sphatase measurementOrdered By: on 12-18-2024 ALP [Catalytic activity/Vol] 70 U/L 40-129 [facility] Serum or plasma calcium marialuisa urement (mass/volume)Ordered By: Taylor on 12-18-2024 Calcium [Mass/Vol] 9.4 mg/dL 7.6-11.[address] [facility] Serum or plasma urea nitroge n measurement (mass/volume)Ordered By: Taylor on 12-18-2024 Urea nitrogen [Mass/Vol] 15 mg/dL 4-19 [facility] Sodium levelOrdered By: a Fast on 12-18-2024 Sodium [Moles/Vol] 135 mmol/L 133-[address] [facility] TSH DL <= 0.005 mIU/L QnOrde red By: Taylor Fast on 12-18-2024 TSH Qn 3.470 uIU/mL 0.300-4.20 0 [facility] Thyroid Stim Hormone (TSH)on 12-18-2024 TSH 3.470 uIU/mL Normal 0.300-4.20 0 [facility] Comment on above: Performed By: #### L 506.1001, L500.4050, L501.9520, L501.9985, L100.0100 #### [facility] [address], [place], [address] Total proteinOrdered By: Lyla ra Fast on 12-18-2024 Protein [Mass/Vol] 6.5 g/dL 5.9-8.[address] [facility] Vitamin D,25 Hydroxyon 12-18 Vitamin D 25-OH 51.4 ng/mL Normal 30-100 [facility] Comment on above: Result Comment: Christen min D Status Deficiency: <20 ng/mL (50nmol/L) Insufficiency: 20-30 ng/mL (50-75 nmol/L) Sufficiency: 30-100 ng/mL (75-250 nmol/L) Toxicity: >100 ng/mL (>250 nmol/L) Performed By: #### L 506.1001, L500.4050, L501.9520, L501.9985, L100.0100 #### [facility] [address] [place], [place], [address] White blood cell (WBC) count Ordered By: on 12-18-2024 WBC (Bld) [#/Vol] 3.9 10*3/uL Low 4.4-11.[address] [facility] Absolute lymphocyte countOrd ered By: on 09-16-2024 Lymphocytes Auto (Unsp spec) [#/Vol] 1.50 10*3/uL 0.83-4.51 [facility] Absolute neutrophil countOrd ered By: on 09-16-2024 Neutrophils (Bld) [#/Vol] 2.9 10*3/uL 2.0-7.7 [facility] Anion gap in Serum or Plasma Ordered By: on 09-16-2024 Anion gap [Moles/Vol] 8 mmol/L 5-15 [facility] Automated lymphocyte count a s percentage of total leukocytesOrdered By: Taylor Fast on 09-16-2024 Lymphocytes/100 WBC Auto (Unsp spec) 28.6 % 19-41 [facility] BUN/creatinine ratioOrdered By: Taylor Fast on 09-16-2024 Urea nitrogen/Creatinine [Mass ratio] 42.9 mg/mg High 10-20 [facility] Basophil percentageOrdered B y: Taylor Fast on 09-16-2024 Basophils/100 WBC (Bld) 0.4 % 0-1 [facility] Bilirubin, totalOrdered By: Taylor Fast on 09-16-2024 Bilirubin [Mass/Vol] 0.45 mg/dL 0.00-1.30 [facility] CBC W/Diff, Automatedon 09-04 Absolute Lymph 1.50 X10 3/uL Normal 0.83-4.51 [facility] Comment on above: Performed By: #### L 100.0100, L500.2500 #### [facility] [address] [place], [address] Absolute Neut 2.9 X10 3/uL Normal 2.0-7.7 [facility] Comment on above: Performed By: #### L 100.0100, L500.2500 #### [facility] [address] [facility] [place], [address] Basophils/100 WBC (Bld) 0.4 % Normal 0-1 [facility] Comment on above: Performed By: #### L 100.0100, L500.2500 #### [facility] [address] [place], [address] Eosinophils/100 WBC (Bld) 3.6 % Normal 0-5 [facility] Comment on above: Performed By: #### L 100.0100, L500.2500 #### [facility] [address] [place], [address] Erythrocyte distribution width (RBC) [Ratio] 12.8 % Normal 11.6-14.6 [facility] Comment on above: Performed By: #### L 100.0100, L500.2500 #### [facility] [address] [place], [address] Hematocrit (Bld) [Volume fraction] 37.0 % Low 40-54 [facility] Comment on above: Performed By: #### L 100.0100, L500.2500 #### [facility] [address] [place], [address] Hemoglobin (Bld) [Mass/Vol] 12.6 g/dL Low 13.0-16.5 [facility] Comment on above: Performed By: #### L 100.0100, L500.2500 #### [facility] [address] [place], [address] IG% 0.200 Normal 0.0-0.9 [facility] Comment on above: Result Comment: IG% - Immature Granulocytes (promyelocytes, myelocytes and metamyelocytes) > 1% indicates that a LEFT SHIFT is Present. Performed By: #### L 100.0100, L500.2500 #### [facility] [address] [place], [address] Lymphocytes/100 WBC (Bld) 28.6 % Normal 19-41 [facility] Comment on above: Performed By: #### L 100.0100, L500.2500 #### [facility] [address] [place], [address] MCH (RBC) [Entitic mass] 32.2 pg High 27.0-32.0 [facility] Comment on above: Performed By: #### L 100.0100, L500.2500 #### [facility] [address] [place], [address] MCHC (RBC) [Mass/Vol] 34.1 g/dL Normal 32-36 [facility] Comment on above: Performed By: #### L 100.0100, L500.2500 #### [facility] [address] [place], [address] MCV (RBC) [Entitic vol] 94.6 fL High 80-94 [facility] Comment on above: Performed By: #### L 100.0100, L500.2500 #### [facility] [address] [place], [address] Monocytes/100 WBC (Bld) 11.6 % High 0-10 [facility] Comment on above: Performed By: #### L 100.0100, L500.2500 #### [facility] [address] [place], [address] Neutrophils/100 WBC (Bld) 55.6 % Normal 47-70 [facility] Comment on above: Performed By: #### L 100.0100, L500.2500 #### [facility] [address] [place], [address] Nucleated RBC (Bld) [#/Vol] 0 10*3/uL Normal 0-5 [facility] Comment on above: Performed By: #### L 100.0100, L500.2500 #### [facility] [address] [place], [address] Platelet mean volume (Bld) [Entitic vol] 10.3 fL Normal 6.2-12.0 [facility] Comment on above: Performed By: #### L 100.0100, L500.2500 #### [facility] [address] [place], [address] Platelets (Bld) [#/Vol] 181 10*3/uL Normal 150-450 [facility] Comment on above: Performed By: #### L 100.0100, L500.2500 #### [facility] [address] [place], [address] RBC (Bld) [#/Vol] 3.91 10*6/uL Low 4.6-6.2 [facility] Comment on above: Performed By: #### L 100.0100, L500.2500 #### [facility] [address] [place], [address] RDW SD 44.1 fl High 35.1-43.9 [facility] Comment on above: Performed By: #### L 100.0100, L500.2500 #### [facility] [address] [place], [address] WBC (Bld) [#/Vol] 5.2 10*3/uL Normal 4.4-11.[address] [facility] Comment on above: Performed By: #### L 100.0100, L500.2500 #### [facility] [address] [place], [address] Carbon dioxide, total [Moles /volume] in Central venous bloodOrdered By: Taylor Fast on 09-16-2024 CO2 [Moles/Vol] 27.9 mmol/L 21.0-32.0 [facility] Chloride assayOrdered By: De bra Fast on 09-16-2024 Chloride [Moles/Vol] 98 mmol/L 98-108 [facility] Comprehensive Metabolic Prof ilon 09-16-2024 Albumin [Mass/Vol] 4.0 g/dL Normal 3.4-4.[address] [facility] Comment on above: Performed By: #### L 100.0100, L500.2500 #### [facility] [address] [place], [address] Albumin/Globulin [Mass ratio] 1.5 {ratio} Normal 0.9-2.4 [facility] Comment on above: Performed By: #### L 100.0100, L500.2500 #### [facility] [address] [place], [address] ALK PHOS 62 U/L Normal 40-129 [facility] Comment on above: Performed By: #### L 100.0100, L500.2500 #### [facility] [address] [place], [address] ALT [Catalytic activity/Vol] 12 U/L Normal <=46 [facility] Comment on above: Performed By: #### L 100.0100, L500.2500 #### [facility] [address] [place], [address] AST [Catalytic activity/Vol] 19 U/L Normal <=37 [facility] Comment on above: Performed By: #### L 100.0100, L500.2500 #### [facility] [address] [place], [address] Bilirubin [Mass/Vol] 0.45 mg/dL Normal 0.00-1.30 [facility] Comment on above: Performed By: #### L 100.0100, L500.2500 #### [facility] [facility] [address] [place], [address] BUN/CRE 42.9 RATIO High 10-20 [facility] Comment on above: Performed By: #### L 100.0100, L500.2500 #### [facility] [address] [place], [address] Calcium [Mass/Vol] 9.6 mg/dL Normal 7.6-11.[address] [facility] Comment on above: Performed By: #### L 100.0100, L500.2500 #### [facility] [address] [place], [address] Chloride [Moles/Vol] 98 mmol/L Normal 98-108 [facility] Comment on above: Performed By: #### L 100.0100, L500.2500 #### [facility] [address] [place], [address] CO2 [Moles/Vol] 27.9 mmol/L Normal 21.0-32.0 [facility] Comment on above: Performed By: #### L 100.0100, L500.2500 #### [facility] [address] [place], [address] Creatinine [Mass/Vol] 0.37 mg/dL Low 0.70-1.20 [facility] Comment on above: Performed By: #### L 100.0100, L500.2500 #### [facility] [address] [place], [address] GAP 8 Normal 5-15 [facility] Comment on above: Performed By: #### L 100.0100, L500.2500 #### [facility] [address] [place], [address] GFR/1.73 sq M.predicted among non-blacks MDRD (S/P/Bld) [Vol rate/Area] 109 mL/min/{1.73_m2} Normal >60 [facility] Comment on above: Result Comment: mL/m in/1.73m2 CKD-EPI Creatinine Equation (2020) Performed By: #### L 100.0100, L500.2500 #### [facility] [address] [place], [address] Globulin (S) [Mass/Vol] 2.7 g/dL Normal 2.2-4.2 [facility] Comment on above: Performed By: #### L 100.0100, L500.2500 #### [facility] [address] [place], [address] Glucose [Mass/Vol] 91 mg/dL Normal 70-[address] [facility] Comment on above: Performed By: #### L 100.0100, L500.2500 #### [facility] [address] [place], [address] Potassium [Moles/Vol] 4.5 mmol/L Normal 3.3-5.1 [facility] Comment on above: Performed By: #### L 100.0100, L500.2500 #### [facility] [address] [place], [address] Sodium [Moles/Vol] 134 mmol/L Normal 133-[address] [facility] Comment on above: Performed By: #### L 100.0100, L500.2500 #### [facility] [address] [place], [address] T PROT 6.7 g/dL Normal 5.9-8.4 [facility] Comment on above: Performed By: #### L 100.0100, L500.2500 #### [facility] [address] [place], [address] Urea nitrogen [Mass/Vol] 16 mg/dL Normal 4-19 [facility] Comment on above: Performed By: #### L 100.0100, L500.2500 #### [facility] [address] [place], [address] Eosinophil percentageOrdered By: Taylor Fast on 09-16-2024 Eosinophils/100 WBC (Bld) 3.6 % 0-5 [facility] Erythrocyte distribution wid th ratioOrdered By: Taylor Fast on 09-16-2024 Erythrocyte distribution width (RBC) [Ratio] 12.8 % 11.6-14.6 [facility] Erythrocyte distribution wid th standard deviationOrdered By: Taylor Fast on 09-16-2024 Erythrocyte distribution width (RBC) [Ratio] 44.1 fl High 35.1-43.9 [facility] Glomerular filtration rate ( GFR) estimation/1.73 sq m using serum, plasma, or whole bOrdered By: Taylor Fast on 09-16-2024 GFR/1.73 sq M.predicted among non-blacks MDRD (S/P/Bld) [Vol rate/Area] 109 mL/min/{1.73_m2} >60 [facility] Comment on above: mL/min/1.73m2 CKD-EP I Creatinine Equation (2020) Hematocrit Auto (Bld) [Volum e fraction]Ordered By: Taylor Fast on 09-16-2024 Hematocrit (Bld) [Volume fraction] 37.0 % Low 40-54 [facility] Hemoglobin A1con 09-16-2024 HbA1c (Bld) [Mass fraction] 5.1 % Normal <=5.6 [facility] Comment on above: Result Comment: Norm al < 5.7 % Prediabetic 5.7 - 6.4 % Diabetic >or= 6.5 % Please note range changes. Performed By: #### L 506.1001, L500.4050, L501.9520, L501.9985, L100.0100 #### [facility] [address] [place], [address] Hemoglobin A1c percentageOrd ered By: Taylor on 09-16-2024 HbA1c (Bld) [Mass fraction] 5.1 % <5.7 [facility] Comment on above: Normal < 5.7 % Predi abetic 5.7 - 6.4 % Diabetic >or= 6.5 % Please note range changes. Hemoglobin measurementOrdere d By: Taylor Fast on 09-16-2024 Hemoglobin (Bld) [Mass/Vol] 12.6 g/dL Low 13.0-16.5 [facility] Immature granulocytes/100 WB C Auto (Bld)Ordered By: Taylor Fast on 09-16-2024 Immature granulocytes/100 WBC (Bld) 0.200 % 0.0-0.9 [facility] Comment on above: IG% - Immature Granu locytes (promyelocytes, myelocytes and metamyelocytes) > 1% indicates that a LEFT SHIFT is Present. Laboratory - Chemistry and C hemistry - challengeOrdered By: Taylor Fast on 09-16-2024 AST [Catalytic activity/Vol] 19 U/L <38 [facility] MCV (mean corpuscular volume ) determinationOrdered By: Taylor Fast on 09-16-2024 MCV (RBC) [Entitic vol] 94.6 fL High 80-94 [facility] Mean corpuscular hemoglobin (MCH) determinationOrdered By: Taylor Fast on 09-16-2024 MCH (RBC) [Entitic mass] 32.2 pg High 27.0-32.0 [facility] Mean corpuscular hemoglobin concentration (MCHC) determinationOrdered By: Taylor Fast on 09-16-2024 MCHC (RBC) [Mass/Vol] 34.1 g/dL 32-36 [facility] Mean platelet volume determi nationOrdered By: Taylor Fast on 09-16-2024 Platelet mean volume (Bld) [Entitic vol] 10.3 fL 6.2-12.0 [facility] Monocyte percentageOrdered B y: Taylor on 09-16-2024 Monocytes/100 WBC (Bld) 11.6 % High 0-10 [facility] Neutrophil percentageOrdered By: Taylor Fast on 09-16-2024 Neutrophils/100 WBC (Bld) 55.6 % 47-70 [facility] Nucleated red blood cell per centageOrdered By: on 09-16-2024 Nucleated RBC/100 WBC (Bld) [Ratio] 0 % 0-5 [facility] Platelet countOrdered By: armando on 09-16-2024 Platelets (Bld) [#/Vol] 181 10*3/uL 150-450 [facility] Potassium measurement (mass/ volume)Ordered By: on 09-16-2024 Potassium (Unsp spec) [Mass/Vol] 4.5 mmol/L 3.3-5.1 [facility] RBC Auto (Bld) [#/Vol]Ordere d By: on 09-16-2024 RBC (Bld) [#/Vol] 3.91 10*6/uL Low 4.6-6.2 [facility] Serum creatinine measurement (mass/volume)Ordered By: on 09-16-2024 Creatinine [Mass/Vol] 0.37 mg/dL Low 0.70-1.20 [facility] Serum globulin measurementOr dered By: 09-16-2024 Globulin (S) [Mass/Vol] 2.7 g/dL 2.2-4.2 [facility] Serum glucose measurement (m ass/volume)Ordered By: 09-16-2024 Glucose [Mass/Vol] 91 mg/dL 70-[address] [facility] Serum or plasma alanine kumar otransferase (ALT) measurementOrdered By: 09-16-2024 ALT [Catalytic activity/Vol] 12 U/L <47 [facility] Serum or plasma albumin marialuisa urement (mass/volume)Ordered By: Taylor Fast on 09-16-2024 Albumin [Mass/Vol] 4.0 g/dL 3.4-4.[address] [facility] Serum or plasma albumin/glob ulin mass ratioOrdered By: Taylor on 09-16-2024 Albumin/Globulin [Mass ratio] 1.5 {ratio} 0.9-2.4 [facility] Serum or plasma alkaline gilberto sphatase measurementOrdered By: Taylor Fast on 09-16-2024 ALP [Catalytic activity/Vol] 62 U/L 40-129 [facility] Serum or plasma calcium marialuisa urement (mass/volume)Ordered By: Taylor Fast on 09-16-2024 Calcium [Mass/Vol] 9.6 mg/dL 7.6-11.[address] [facility] Serum or plasma urea nitroge n measurement (mass/volume)Ordered By: Taylor Fast on 09-16-2024 Urea nitrogen [Mass/Vol] 16 mg/dL 4-19 [facility] Sodium levelOrdered By: a Fast on 09-16-2024 Sodium [Moles/Vol] 134 mmol/L 133-[address] [facility] TSH DL <= 0.005 mIU/L QnOrde red By: Taylor Fast on 09-16-2024 TSH Qn 4.040 uIU/mL 0.300-4.20 0 [facility] Thyroid Stim Hormone (TSH)on 09-16-2024 TSH 4.040 uIU/mL Normal 0.300-4.20 0 [facility] Comment on above: Performed By: #### L 506.1001, L500.4050, L501.9520, L501.9985, L100.0100 #### [facility] [address] [place], [address] Total proteinOrdered By: Lyla ra Fast on 09-16-2024 Protein [Mass/Vol] 6.7 g/dL 5.9-8.[address] [facility] Vitamin D,25 Hydroxyon 09-16 Vitamin D 25-OH 52.3 ng/mL Normal 30-100 [facility] Comment on above: Result Comment: Christen min D Status Deficiency: <20 ng/mL (50nmol/L) Insufficiency: 20-30 ng/mL (50-75 nmol/L) Sufficiency: 30-100 ng/mL (75-250 nmol/L) Toxicity: >100 ng/mL (>250 nmol/L) Performed By: #### L 506.1001, L500.4050, L501.9520, L501.9985, L100.0100 #### [facility] [address] [place], [address] White blood cell (WBC) count Ordered By: Taylor on 09-16-2024 WBC (Bld) [#/Vol] 5.2 10*3/uL 4.4-11.[address] [facility] Absolute lymphocyte countOrd ered By: Taylor Fast on 06-19-2024 Lymphocytes Auto (Unsp spec) [#/Vol] 1.41 10*3/uL 0.83-4.51 [facility] Absolute neutrophil countOrd ered By: Taylor Fast on 06-19-2024 Neutrophils (Bld) [#/Vol] 1.6 10*3/uL Low 2.0-7.7 [facility] Albumin to globulin ratioOrd ered By: Taylor Fast on 06-19-2024 Albumin/Globulin [Mass ratio] 1.1 {ratio} 0.9-2.4 [facility] Automated lymphocyte count a s percentage of total leukocytesOrdered By: Taylor Fast on 06-19-2024 Lymphocytes/100 WBC Auto (Unsp spec) 36.2 % 19-41 [facility] Basophil percentageOrdered B y: Taylor Fast on 06-19-2024 Basophils/100 WBC (Bld) 0.5 % 0-1 [facility] Bilirubin, totalOrdered By: Taylor Fast on 06-19-2024 Bilirubin [Mass/Vol] 0.70 mg/dL 0.20-1.00 [facility] Comment on above: For patients on eltr ombopag therapy, use of Dimension [place] TBIL is not recommended. Blood urea nitrogen (BUN)/cr eatinine ratioOrdered By: Taylor Zuniga on 06-19-2024 Urea nitrogen/Creatinine [Mass ratio] 41.3 mg/mg High 10-20 [facility] CBC W/Diff, Automatedon 06-07 Absolute Lymph 1.41 X10 3/uL Normal 0.83-4.51 [facility] Comment on above: Performed By: #### L 100.0100, L500.2500 #### [facility] [address] [place], [address] Absolute Neut 1.6 X10 3/uL Low 2.0-7.7 [facility] Comment on above: Performed By: #### L 100.0100, L500.2500 #### [facility] [address] [place], [address] Basophils/100 WBC (Bld) 0.5 % Normal 0-1 [facility] Comment on above: Performed By: #### L 100.0100, L500.2500 #### [facility] [address] [place], [address] Eosinophils/100 WBC (Bld) 5.9 % High 0-5 [facility] Comment on above: Performed By: #### L 100.0100, L500.2500 #### [facility] [address] [place], [address] Erythrocyte distribution width (RBC) [Ratio] 13.0 % Normal 11.6-14.6 [facility] Comment on above: Performed By: #### L 100.0100, L500.2500 #### [facility] [address] [place], [address] Hematocrit (Bld) [Volume fraction] 35.6 % Low 40-54 [facility] Comment on above: Performed By: #### L 100.0100, L500.2500 #### [facility] [address] [place], [address] Hemoglobin (Bld) [Mass/Vol] 12.1 g/dL Low 13.0-16.5 [facility] Comment on above: Performed By: #### L 100.0100, L500.2500 #### [facility] [address] [place], [address] IG% 0.300 Normal 0.0-0.9 [facility] Comment on above: Result Comment: IG% - Immature Granulocytes (promyelocytes, myelocytes and metamyelocytes) > 1% indicates that a LEFT SHIFT is Present. Performed By: #### L 100.0100, L500.2500 #### [facility] [address] [place], [address] Lymphocytes/100 WBC (Bld) 36.2 % Normal 19-41 [facility] Comment on above: Performed By: #### L 100.0100, L500.2500 #### [facility] [address] [place], [address] MCH (RBC) [Entitic mass] 31.2 pg Normal 27.0-32.0 [facility] Comment on above: Performed By: #### L 100.0100, L500.2500 #### [facility] [address] [place], [address] MCHC (RBC) [Mass/Vol] 34.0 g/dL Normal 32-36 [facility] Comment on above: Performed By: #### L 100.0100, L500.2500 #### [facility] [address] [place], [address] MCV (RBC) [Entitic vol] 91.8 fL Normal 80-94 [facility] Comment on above: Performed By: #### L 100.0100, L500.2500 #### [facility] [address] [place], [address] Monocytes/100 WBC (Bld) 15.6 % High 0-10 [facility] Comment on above: Performed By: #### L 100.0100, L500.2500 #### [facility] [address] [place], [address] Neutrophils/100 WBC (Bld) 41.5 % Low 47-70 [facility] Comment on above: Performed By: #### L 100.0100, L500.2500 #### [facility] [address] [place], [address] Nucleated RBC (Bld) [#/Vol] 0 10*3/uL Normal 0-5 [facility] Comment on above: Performed By: #### L 100.0100, L500.2500 #### [facility] [address] [place], [address] Platelet mean volume (Bld) [Entitic vol] 10.3 fL Normal 6.2-12.0 [facility] Comment on above: Performed By: #### L 100.0100, L500.2500 #### [facility] [address] [place], [address] Platelets (Bld) [#/Vol] 176 10*3/uL Normal 150-450 [facility] Comment on above: Performed By: #### L 100.0100, L500.2500 #### [facility] [address] [place], [address] RBC (Bld) [#/Vol] 3.88 10*6/uL Low 4.6-6.2 [facility] Comment on above: Performed By: #### L 100.0100, L500.2500 #### [facility] [address] [place], [address] RDW SD 43.3 fl Normal 35.1-43.9 [facility] Comment on above: Performed By: #### L 100.0100, L500.2500 #### [facility] [address] [place], [address] WBC (Bld) [#/Vol] 3.9 10*3/uL Low 4.4-11.[address] [facility] Comment on above: Performed By: #### L 100.0100, L500.2500 #### [facility] [address] [place], [address] Carbon dioxide measurementOr dered By: Taylor Fast on 06-19-2024 CO2 [Moles/Vol] 29.0 mmol/L 21.0-32.0 [facility] Chloride measurementOrdered By: Taylor Fast on 06-19-2024 Chloride [Moles/Vol] 100 mmol/L 98-107 [facility] Comprehensive Metabolic Prof ilon 06-19-2024 Albumin [Mass/Vol] 3.5 g/dL Normal 3.2-5.[address] [facility] Comment on above: Performed By: #### L 100.0100, L500.2500 #### [facility] [address] [place], [address] Albumin/Globulin [Mass ratio] 1.1 {ratio} Normal 0.9-2.4 [facility] Comment on above: Performed By: #### L 100.0100, L500.2500 #### [facility] [address] [facility] [place], [address] ALK P 57 U/L Normal 45-117 [facility] Comment on above: Performed By: #### L 100.0100, L500.2500 #### [facility] [address] [place], [address] ALT [Catalytic activity/Vol] 18 U/L Normal 16-61 [facility] Comment on above: Performed By: #### L 100.0100, L500.2500 #### [facility] [address] [place], [address] AST [Catalytic activity/Vol] 17 U/L Normal 15-37 [facility] Comment on above: Performed By: #### L 100.0100, L500.2500 #### [facility] [address] [place], [address] Bilirubin [Mass/Vol] 0.70 mg/dL Normal 0.20-1.00 [facility] Comment on above: Result Comment: For patients on eltrombopag therapy, use of Dimension [place] TBIL is not recommended. Performed By: #### L 100.0100, L500.2500 #### [facility] [address] [place], [address] BUN/CRE 41.3 RATIO High 10-20 [facility] Comment on above: Performed By: #### L 100.0100, L500.2500 #### [facility] [address] [place], [address] CA,Total 9.1 mg/dL Normal 8.5-10.1 [facility] Comment on above: Performed By: #### L 100.0100, L500.2500 #### [facility] [address] [place], [address] Chloride [Moles/Vol] 100 mmol/L Normal 98-107 [facility] Comment on above: Performed By: #### L 100.0100, L500.2500 #### [facility] [address] [place], [address] CO2 [Moles/Vol] 29.0 mmol/L Normal 21.0-32.0 [facility] Comment on above: Performed By: #### L 100.0100, L500.2500 #### [facility] [address] [place], [address] Creatinine [Mass/Vol] 0.39 mg/dL Low 0.70-1.30 [facility] Comment on above: Result Comment: The validity of the calculated GFR GFRAA in patients over 70 years has not been determined. Clinical correlation is essential. Performed By: #### L 100.0100, L500.2500 #### [facility] [address] [place], [address] EST GFR - AA 273 mL/min Normal >60 [facility] Comment on above: Result Comment: Afri can [place] GFR Calc Performed By: #### L 100.0100, L500.2500 #### [facility] [address] [place], [address] GAP 4 Low 5-15 [facility] Comment on above: Performed By: #### L 100.0100, L500.2500 #### [facility] [address] [place], [address] GFR/1.73 sq M.predicted among non-blacks MDRD (S/P/Bld) [Vol rate/Area] 225 mL/min/{1.73_m2} Normal >60 [facility] Comment on above: Result Comment: Non- GFR Calc Performed By: #### L 100.0100, L500.2500 #### [facility] [address] [place], [address] Globulin (S) [Mass/Vol] 3.3 g/dL Normal 2.2-4.2 [facility] Comment on above: Performed By: #### L 100.0100, L500.2500 #### [facility] [address] [place], [address] Glucose [Mass/Vol] 90 mg/dL Normal 74-[address] [facility] Comment on above: Performed By: #### L 100.0100, L500.2500 #### [facility] [address] [place], [address] Potassium [Moles/Vol] 4.6 mmol/L Normal 3.5-5.1 [facility] Comment on above: Performed By: #### L 100.0100, L500.2500 #### [facility] [address] [place], [address] Sodium [Moles/Vol] 133 mmol/L Low 136-[address] [facility] Comment on above: Performed By: #### L 100.0100, L500.2500 #### [facility] [address] [place], [address] T PROT 6.8 g/dL Normal 6.4-8.2 [facility] Comment on above: Performed By: #### L 100.0100, L500.2500 #### [facility] [address] [place], [address] Urea nitrogen [Mass/Vol] 16 mg/dL Normal 7-18 [facility] Comment on above: Performed By: #### L 100.0100, L500.2500 #### [facility] [address] [place], [address] Eosinophil percentageOrdered By: Taylor Fast on 06-19-2024 Eosinophils/100 WBC (Bld) 5.9 % High 0-5 [facility] Erythrocyte distribution wid th ratioOrdered By: [facility] Fast on 06-19-2024 Erythrocyte distribution width (RBC) [Ratio] 13.0 % 11.6-14.6 [facility] Erythrocyte distribution wid th standard deviationOrdered By: Taylor Fast on 06-19-2024 Erythrocyte distribution width (RBC) [Ratio] 43.3 fl 35.1-43.9 [facility] Glomerular filtration rate ( GFR) estimationOrdered By: Taylor Fast on 06-19-2024 GFR/1.73 sq M.predicted among non-blacks MDRD (S/P/Bld) [Vol rate/Area] 225 mL/min/{1.73_m2} >60 [facility] Comment on above: Non- GFR Calc Glucose measurementOrdered B y: Taylor Fast on 06-19-2024 Glucose [Mass/Vol] 90 mg/dL 74-[address] [facility] Hematocrit Auto (Bld) [Volum e fraction]Ordered By: Taylor Fast on 06-19-2024 Hematocrit (Bld) [Volume fraction] 35.6 % Low 40-54 [facility] Hemoglobin A1con 06-19-2024 HbA1c (Bld) [Mass fraction] 5.2 % Normal 3.8-5.6 [facility] Comment on above: Result Comment: Norm al < 5.7 % Prediabetic 5.7 - 6.4 % Diabetic >or= 6.5 % Please note range changes. Performed By: #### L 100.0100, L500.2500 #### [facility] [address] [place], [address] Hemoglobin A1c percentageOrd ered By: Taylor on 06-19-2024 HbA1c (Bld) [Mass fraction] 5.2 % 3.8-5.6 [facility] Comment on above: Normal < 5.7 % Predi abetic 5.7 - 6.4 % Diabetic >or= 6.5 % Please note range changes. Hemoglobin measurementOrdere d By: Taylor Fast on 06-19-2024 Hemoglobin (Bld) [Mass/Vol] 12.1 g/dL Low 13.0-16.5 [facility] Immature granulocytes/100 WB C Auto (Bld)Ordered By: Taylor Fast on 06-19-2024 Immature granulocytes/100 WBC (Bld) 0.300 % 0.0-0.9 [facility] Comment on above: IG% - Immature Granu locytes (promyelocytes, myelocytes and metamyelocytes) > 1% indicates that a LEFT SHIFT is Present. Laboratory - Chemistry and C hemistry - challengeOrdered By: Taylor on 06-19-2024 AST [Catalytic activity/Vol] 17 U/L 15-37 [facility] MCV (mean corpuscular volume ) determinationOrdered By: Taylor Fast on 06-19-2024 MCV (RBC) [Entitic vol] 91.8 fL 80-94 [facility] Mean corpuscular hemoglobin (MCH) determinationOrdered By: Taylor Fast 06-19-2024 MCH (RBC) [Entitic mass] 31.2 pg 27.0-32.0 [facility] Mean corpuscular hemoglobin concentration (MCHC) determinationOrdered By: Taylor Fast 06-19-2024 MCHC (RBC) [Mass/Vol] 34.0 g/dL 32-36 [facility] Mean platelet volume determi nationOrdered By: Taylor Fast on 06-19-2024 Platelet mean volume (Bld) [Entitic vol] 10.3 fL 6.2-12.0 [facility] Monocyte percentageOrdered B y: Taylor Fast on 06-19-2024 Monocytes/100 WBC (Bld) 15.6 % High 0-10 [facility] Neutrophil percentageOrdered By: Taylor Fast on 06-19-2024 Neutrophils/100 WBC (Bld) 41.5 % Low 47-70 [facility] Nucleated red blood cell per centageOrdered By: Taylor Fast on 06-19-2024 Nucleated RBC/100 WBC (Bld) [Ratio] 0 % 0-5 [facility] Platelet countOrdered By: De bra Fast on 06-19-2024 Platelets (Bld) [#/Vol] 176 10*3/uL 150-450 [facility] [facility] Potassium measurementOrdered By: Taylor Fast on 06-19-2024 Potassium [Moles/Vol] 4.6 mmol/L 3.5-5.1 [facility] RBC Auto (Bld) [#/Vol]Ordere d By: Taylor Fast on 06-19-2024 RBC (Bld) [#/Vol] 3.88 10*6/uL Low 4.6-6.2 [facility] Serum anion gap measurementO rdered By: Taylor Fast on 06-19-2024 Anion gap [Moles/Vol] 4 mmol/L Low 5-15 [facility] Serum globulin measurementOr dered By: Taylor Fast on 06-19-2024 Globulin (S) [Mass/Vol] 3.3 g/dL 2.2-4.2 [facility] Serum or plasma alanine kumar otransferase (ALT) measurementOrdered By: Taylor Fast on 06-19-2024 ALT [Catalytic activity/Vol] 18 U/L 16-61 [facility] Serum or plasma albumin marialuisa urement (mass/volume)Ordered By: Taylor Fast on 06-19-2024 Albumin [Mass/Vol] 3.5 g/dL 3.2-5.[address] [facility] Serum or plasma alkaline gilberto sphatase measurementOrdered By: Taylor Fast on 06-19-2024 ALP [Catalytic activity/Vol] 57 U/L 45-117 [facility] Serum or plasma calcium marialuisa urement (mass/volume)Ordered By: Taylor Fast on 06-19-2024 Calcium [Mass/Vol] 9.1 mg/dL 8.5-10.[address] [facility] Serum or plasma creatinine m easurement (mass/volume)Ordered By: Taylor Fast on 06-19-2024 Creatinine [Mass/Vol] 0.39 mg/dL Low 0.70-1.30 [facility] Comment on above: The validity of the calculated GFR & GFRAA in patients over 70 years has not been determined. Clinical correlation is essential. Serum or plasma thyroid stim ulating hormone (TSH) measurement (units/volume)Ordered By: Taylor on 06-19-2024 TSH Qn 3.230 uIU/mL 0.358-3.74 0 [facility] Serum or plasma urea nitroge n measurement (mass/volume)Ordered By: Taylor on 06-19-2024 Urea nitrogen [Mass/Vol] 16 mg/dL 7-18 [facility] Sodium levelOrdered By: a Fast on 06-19-2024 Sodium [Moles/Vol] 133 mmol/L Low 136-[address] [facility] Thyroid Stim Hormone (TSH)on 06-19-2024 TSH 3.230 uIU/mL Normal 0.358-3.74 0 [facility] Comment on above: Performed By: #### L 100.0100, L500.2500 #### [facility] [address] [place] [address], [id number] Total proteinOrdered By: Lyla ra Fast on 06-19-2024 Protein [Mass/Vol] 6.8 g/dL 6.4-8.[address] [facility] Vitamin D,25 Hydroxyon 06-19 Vitamin D 25-OH 57.9 ng/mL Normal [facility] Comment on above: Result Comment: Christen min D 25(OH) Status Range Deficiency <20 ng/mL (50nmol/L) Insufficiency 20 - 30 ng/mL (50 - 75 nmol/L) Sufficiency 30 - 100 ng/mL (75 - 250 nmol/L) Toxicity >100 ng/mL (>250 nmol/L) Performed By: #### L 100.0100, L500.2500 #### [facility] [place], [address] White blood cell (WBC) count Ordered By: Taylor Fast on 06-19-2024 WBC (Bld) [#/Vol] 3.9 10*3/uL Low 4.4-11.[address] [facility] Absolute lymphocyte countOrd ered By: Taylor Fast on 07-27-2023 Lymphocytes Auto (Unsp spec) [#/Vol] 1.36 10*3/uL 0.83-4.51 [facility] Automated lymphocyte count a s percentage of total leukocytesOrdered By: Taylor Fast on 07-27-2023 Lymphocytes/100 WBC Auto (Unsp spec) 30.2 % 19-41 [facility] Basophil percentageOrdered B y: Taylor Fast on 07-27-2023 Basophils/100 WBC (Bld) 0.9 % 0-1 [facility] Bilirubin [Mass/Vol] 0.50 mg/dL 0.20-1.00 [facility] Comment on above: For patients on eltr ombopag therapy, use of Dimension [place] TBIL is not recommended. Chloride [Moles/Vol] 99 mmol/L 98-107 [facility] Eosinophils/100 WBC (Bld) 6.2 % 0-5 [facility] Glucose [Mass/Vol] 134 mg/dL 74-[address] [facility] Comment on above: Fasting Glucose resu lt greater than or equal to 126 mg/dL suggests DIABETES MELLITUS per A.D.A. criteria. Hemoglobin (Bld) [Mass/Vol] 13.5 g/dL 13.0-16.5 [facility] Monocytes/100 WBC (Bld) 14.9 % 0-10 [facility] Neutrophils (Bld) [#/Vol] 2.2 10*3/uL 2.0-7.7 [facility] Neutrophils/100 WBC (Bld) 47.6 % 47-70 [facility] Potassium [Moles/Vol] 4.7 mmol/L 3.5-5.1 [facility] Protein [Mass/Vol] 7.4 g/dL 6.4-8.[address] [facility] Sodium [Moles/Vol] 134 mmol/L 136-[address] [facility] WBC (Bld) [#/Vol] 4.5 10*3/uL 4.4-11.[address] [facility] Determination of erythrocyte mean corpuscular volume (MCV)Ordered By: [facility] on 07-27-2023 MCV (RBC) [Entitic vol] 94.6 fL 80-94 [facility] Erythrocyte distribution wid th ratioOrdered By: [facility] on 07-27-2023 Erythrocyte distribution width (RBC) [Ratio] 12.2 % 11.6-14.6 [facility] Erythrocyte distribution wid th standard deviationOrdered By: [facility] on 07-27-2023 Erythrocyte distribution width (RBC) [Entitic vol] 42.5 fL 35.1-43.9 [facility] Hematocrit Auto (Bld) [Volum e fraction]Ordered By: [facility] on 07-27-2023 Hematocrit (Bld) [Volume fraction] 41.7 % 40-54 [facility] Immature granulocytes/100 WB C Auto (Bld)Ordered By: [facility] on 07-27-2023 Immature granulocytes/100 WBC (Bld) 0.200 % 0.0-0.9 [facility] Comment on above: IG% - Immature Granu locytes (promyelocytes, myelocytes and metamyelocytes) > 1% indicates that a LEFT SHIFT is Present. Laboratory - Chemistry and C hemistry - challengeOrdered By: [facility] on 07-27-2023 Albumin/Globulin [Mass ratio] 0.9 {ratio} 0.9-2.4 [facility] ALP [Catalytic activity/Vol] 64 U/L 45-117 [facility] ALT [Catalytic activity/Vol] 18 U/L 16-61 [facility] CO2 [Moles/Vol] 30.0 mmol/L 21.0-32.0 [facility] Cobalamin (Vitamin B12) [Mass/Vol] 1966 pg/mL 211-911 [facility] Globulin (S) [Mass/Vol] 3.8 g/dL 2.2-4.2 [facility] Urea nitrogen/Creatinine [Mass ratio] 25.6 mg/mg 10-20 [facility] Laboratory - Hematology and Cell countsOrdered By: Taylor on 07-27-2023 MCH (RBC) [Entitic mass] 30.6 pg 27.0-32.0 [facility] MCHC (RBC) [Mass/Vol] 32.4 g/dL 32-36 [facility] Nucleated RBC/100 WBC (Bld) [Ratio] 0 % 0-5 [facility] Platelet mean volume (Bld) [Entitic vol] 10.1 fL 6.2-12.0 [facility] Platelets (Bld) [#/Vol] 222 10*3/uL 150-450 [facility] No Panel InformationOrdered By: Taylor on 07-27-2023 Estimated GFR (MDRD) Amer 243 mL/min >60 [facility] Comment on above: GFR Calc Estimated GFR (MDRD) Non-Af Amer 201 mL/min >60 [facility] Comment on above: Non- GFR Calc Folate 32.10 ng/mL 3.1-55.4 [facility] Vitamin D 25-Hydroxy 76.3 ng/mL [facility] Comment on above: Vitamin D 25(OH) Sta tus Range Deficiency <20 ng/mL (50nmol/L) Insufficiency 20 - 30 ng/mL (50 - 75 nmol/L) Sufficiency 30 - 100 ng/mL (75 - 250 nmol/L) Toxicity >100 ng/mL (>250 nmol/L) RBC Auto (Bld) [#/Vol]Ordere d By: Taylor on 07-27-2023 RBC (Bld) [#/Vol] 4.41 10*6/uL 4.6-6.2 [facility] Serum or plasma calcium marialuisa urement (mass/volume)Ordered By: Taylor on 07-27-2023 Calcium [Mass/Vol] 9.6 mg/dL 8.5-10.[address] [facility] Serum or plasma creatinine m easurement (mass/volume)Ordered By: Taylor on 07-27-2023 Creatinine [Mass/Vol] 0.43 mg/dL 0.70-1.30 [facility] Comment on above: The validity of the calculated GFR & GFRAA in patients over 70 years has not been determined. Clinical correlation is essential. Serum or plasma urea nitroge n measurement (mass/volume)Ordered By: Taylor on 07-27-2023 Urea nitrogen [Mass/Vol] 11 mg/dL 7-18 [facility] Thin prep Papanicolaou smear with manual screeningOrdered By: Taylor on 07-27-2023 Thin prep Papanicolaou smear with manual screening 3.6 g/dL 3.2-5.0 [facility] Thin prep Papanicolaou smear with manual screening 22 U/L 15-37 [facility] Thin prep Papanicolaou smear with manual screening 5 5-15 [facility] Whole blood hemoglobin A1c/t otal hemoglobin ratio (mass fraction)Ordered By: Taylor on 07-27-2023 HbA1c (Bld) [Mass fraction] 5.1 % 3.8-5.6 [facility] Comment on above: Normal < 5.7 % Predi abetic 5.7 - 6.4 % Diabetic >or= 6.5 % Please note range changes. Basophil percentageOrdered B y: Taylor on 04-18-2023 Bilirubin [Mass/Vol] 0.60 mg/dL 0.20-1.00 [facility] Comment on above: For patients on eltr ombopag therapy, use of Dimension [place] TBIL is not recommended. Chloride [Moles/Vol] 103 mmol/L 98-107 [facility] Glucose [Mass/Vol] 94 mg/dL 74-[address] [facility] Potassium [Moles/Vol] 4.6 mmol/L 3.5-5.1 [facility] Protein [Mass/Vol] 7.1 g/dL 6.4-8.[address] [facility] Sodium [Moles/Vol] 137 mmol/L 136-[address] [facility] Laboratory - Chemistry and C hemistry - challengeOrdered By: [facility] on 04-18-2023 ALP [Catalytic activity/Vol] 59 U/L 45-117 [facility] ALT [Catalytic activity/Vol] 18 U/L 16-61 [facility] CO2 [Moles/Vol] 28.0 mmol/L 21.0-32.0 [facility] Globulin (S) [Mass/Vol] 3.4 g/dL 2.2-4.2 [facility] Urea nitrogen/Creatinine [Mass ratio] 38.5 mg/mg 10-20 [facility] No Panel InformationOrdered By: Taylor on 04-18-2023 Estimated GFR (MDRD) Amer 271 mL/min >60 [facility] Comment on above: GFR Calc Estimated GFR (MDRD) Non-Af Amer 224 mL/min >60 [facility] Comment on above: Non- GFR Calc Vitamin D 25-Hydroxy 85.4 ng/mL [facility] Comment on above: Vitamin D 25(OH) Sta tus Range Deficiency <20 ng/mL (50nmol/L) Insufficiency 20 - 30 ng/mL (50 - 75 nmol/L) Sufficiency 30 - 100 ng/mL (75 - 250 nmol/L) Toxicity >100 ng/mL (>250 nmol/L) Serum or plasma albumin marialuisa urement (mass/volume)Ordered By: [facility] on 04-18-2023 Albumin [Mass/Vol] 3.7 g/dL 3.2-5.[address] [facility] Serum or plasma albumin/glob ulin mass ratioOrdered By: [facility] on 04-18-2023 Albumin/Globulin [Mass ratio] 1.1 {ratio} 0.9-2.4 [facility] Serum or plasma calcium marialuisa urement (mass/volume)Ordered By: Taylor on 04-18-2023 Calcium [Mass/Vol] 9.2 mg/dL 8.5-10.[address] [facility] Serum or plasma creatinine m easurement (mass/volume)Ordered By: Taylor on 04-18-2023 Creatinine [Mass/Vol] 0.39 mg/dL 0.70-1.30 [facility] Comment on above: The validity of the calculated GFR & GFRAA in patients over 70 years has not been determined. Clinical correlation is essential. Serum or plasma urea nitroge n measurement (mass/volume)Ordered By: Taylor on 04-18-2023 Urea nitrogen [Mass/Vol] 15 mg/dL 7-18 [facility] Thin prep Papanicolaou smear with manual screeningOrdered By: [facility] 04-18-2023 Thin prep Papanicolaou smear with manual screening 18 U/L 15-37 [facility] Thin prep Papanicolaou smear with manual screening 6 5-15 [facility] Whole blood hemoglobin A1c/t otal hemoglobin ratio (mass fraction)Ordered By: Taylor Zuniga on 04-18-2023 HbA1c (Bld) [Mass fraction] 5.0 % 3.8-5.6 [facility] Comment on above: Normal < 5.7 % Predi abetic 5.7 - 6.4 % Diabetic >or= 6.5 % Please note range changes. Absolute lymphocyte countOrd ered By: Taylor Efrain on 03-15-2023 Lymphocytes Auto (Unsp spec) [#/Vol] 1.24 10*3/uL 0.83-4.51 [facility] Basophil percentageOrdered B y: [facility] Efrain on 03-15-2023 Basophils/100 WBC (Bld) 0.7 % 0-1 [facility] Bilirubin [Mass/Vol] 0.60 mg/dL 0.20-1.00 [facility] Comment on above: For patients on eltr ombopag therapy, use of Dimension [place] TBIL is not recommended. Chloride [Moles/Vol] 102 mmol/L 98-107 [facility] Eosinophils/100 WBC (Bld) 2.9 % 0-5 [facility] Glucose [Mass/Vol] 115 mg/dL 74-[address] [facility] Comment on above: Fasting Glucose resu lt from 100 to 125 mg/dL suggests IMPAIRED HOMEOSTASIS per A.D.A. criteria. Neutrophils (Bld) [#/Vol] 2.3 10*3/uL 2.0-7.7 [facility] Neutrophils/100 WBC (Bld) 54.5 % 47-70 [facility] Potassium [Moles/Vol] 4.4 mmol/L 3.5-5.1 [facility] Protein [Mass/Vol] 7.0 g/dL 6.4-8.[address] [facility] Sodium [Moles/Vol] 135 mmol/L 136-[address] [facility] WBC (Bld) [#/Vol] 4.2 10*3/uL 4.4-11.[address] [facility] Blood erythrocytes count (nu mber/volume)Ordered By: Taylor Efrain on 03-15-2023 RBC (Bld) [#/Vol] 4.33 10*6/uL 4.6-6.2 [facility] Blood hemoglobin measurement (mass/volume)Ordered By: Taylor on 03-15-2023 Hemoglobin (Bld) [Mass/Vol] 13.6 g/dL 13.0-16.5 [facility] Blood lymphocytes/100 leukoc ytesOrdered By: [facility] on 03-15-2023 Lymphocytes/100 WBC (Bld) 29.7 % 19-41 [facility] Blood monocytes/100 leukocyt esOrdered By: Taylor on 03-15-2023 Monocytes/100 WBC (Bld) 11.7 % 0-10 [facility] Blood platelet mean volumeOr dered By: [facility] on 03-15-2023 Platelet mean volume (Bld) [Entitic vol] 10.7 fL 6.2-12.0 [facility] Determination of erythrocyte mean corpuscular volume (MCV)Ordered By: [facility] on 03-15-2023 MCV (RBC) [Entitic vol] 96.5 fL 80-94 [facility] Hematocrit Auto (Bld) [Volum e fraction]Ordered By: [facility] on 03-15-2023 Hematocrit (Bld) [Volume fraction] 41.8 % 40-54 [facility] Laboratory - Chemistry and C hemistry - challengeOrdered By: [facility] on 03-15-2023 ALP [Catalytic activity/Vol] 60 U/L 45-117 [facility] ALT [Catalytic activity/Vol] 18 U/L 16-61 [facility] CO2 [Moles/Vol] 32.0 mmol/L 21.0-32.0 [facility] Globulin (S) [Mass/Vol] 3.3 g/dL 2.2-4.2 [facility] Urea nitrogen/Creatinine [Mass ratio] 28.3 mg/mg 10-20 [facility] - Hematology and Cell countsOrdered By: [facility] on 03-15-2023 Erythrocyte distribution width (RBC) [Entitic vol] 43.7 fL 35.1-43.9 [facility] Erythrocyte distribution width (RBC) [Ratio] 12.2 % 11.6-14.6 [facility] Immature granulocytes/100 WBC (Bld) 0.500 % 0.0-0.9 [facility] Comment on above: IG% - Immature Granu locytes (promyelocytes, myelocytes and metamyelocytes) > 1% indicates that a LEFT SHIFT is Present. MCH (RBC) [Entitic mass] 31.4 pg 27.0-32.0 [facility] Nucleated RBC/100 WBC (Bld) [Ratio] 0 % 0-5 [facility] MCHC Auto (RBC) [Mass/Vol]Or dered By: Taylor on 03-15-2023 MCHC (RBC) [Mass/Vol] 32.5 g/dL 32-36 [facility] No Panel InformationOrdered By: Taylor on 03-15-2023 Estimated GFR (MDRD) Amer 246 mL/min >60 [facility] Comment on above: GFR Calc Estimated GFR (MDRD) Non-Af Amer 203 mL/min >60 [facility] Comment on above: Non- GFR Calc Vitamin D 25-Hydroxy 105.2 ng/mL [facility] Comment on above: Vitamin D 25(OH) [...] 03-15-2023 Platelets (Bld) [#/Vol] 190 10*3/uL 150-450 [facility] Serum or plasma albumin marialuisa urement (mass/volume)Ordered By: Taylor Fast on 03-15-2023 Albumin [Mass/Vol] 3.7 g/dL 3.2-5.[address] [facility] Serum or plasma albumin/glob ulin mass ratioOrdered By: [facility] on 03-15-2023 Albumin/Globulin [Mass ratio] 1.1 {ratio} 0.9-2.4 [facility] Serum or plasma calcium marialuisa urement (mass/volume)Ordered By: [facility] on 03-15-2023 Calcium [Mass/Vol] 9.2 mg/dL 8.5-10.[address] [facility] Serum or plasma creatinine m easurement (mass/volume)Ordered By: [facility] on 03-15-2023 Creatinine [Mass/Vol] 0.42 mg/dL 0.70-1.30 [facility] Comment on above: The validity of the calculated GFR & GFRAA in patients over 70 years has not been determined. Clinical correlation is essential. Serum or plasma urea nitroge n measurement (mass/volume)Ordered By: [facility] on 03-15-2023 Urea nitrogen [Mass/Vol] 12 mg/dL 7-18 [facility] Thin prep Papanicolaou smear with manual screeningOrdered By: [facility] on 03-15-2023 Thin prep Papanicolaou smear with manual screening 14 U/L 15-37 [facility] Thin prep Papanicolaou smear with manual screening 1 5-15 [facility] Absolute lymphocyte countOrd ered By: [facility] on 01-03-2023 Lymphocytes Auto (Unsp spec) [#/Vol] 1.42 10*3/uL 0.83-4.51 [facility] Basophil percentageOrdered B y: [facility] on 01-03-2023 Basophils/100 WBC (Bld) 0.5 % 0-1 [facility] Bilirubin [Mass/Vol] 0.50 mg/dL 0.20-1.00 [facility] Comment on above: For patients on eltr ombopag therapy, use of Dimension [place] TBIL is not recommended. Chloride [Moles/Vol] 104 mmol/L 98-107 [facility] Eosinophils/100 WBC (Bld) 4.9 % 0-5 [facility] Glucose [Mass/Vol] 94 mg/dL 74-[address] [facility] Neutrophils (Bld) [#/Vol] 1.7 10*3/uL 2.0-7.7 [facility] Neutrophils/100 WBC (Bld) 43.7 % 47-70 [facility] Potassium [Moles/Vol] 4.5 mmol/L 3.5-5.1 [facility] Protein [Mass/Vol] 7.0 g/dL 6.4-8.[address] [facility] Sodium [Moles/Vol] 137 mmol/L 136-[address] [facility] WBC (Bld) [#/Vol] 3.9 10*3/uL 4.4-11.[address] [facility] Blood erythrocytes count (nu mber/volume)Ordered By: Taylor Fast on 01-03-2023 RBC (Bld) [#/Vol] 4.21 10*6/uL 4.6-6.2 [facility] Blood hemoglobin measurement (mass/volume)Ordered By: Taylor Fast on 01-03-2023 Hemoglobin (Bld) [Mass/Vol] 13.4 g/dL 13.0-16.5 [facility] Blood lymphocytes/100 leukoc ytesOrdered By: Taylor Fast on 01-03-2023 Lymphocytes/100 WBC (Bld) 36.7 % 19-41 [facility] Blood monocytes/100 leukocyt esOrdered By: Taylor Fast on 01-03-2023 Monocytes/100 WBC (Bld) 13.7 % 0-10 [facility] Blood platelet mean volumeOr dered By: Taylor Fast on 01-03-2023 Platelet mean volume (Bld) [Entitic vol] 10.5 fL 6.2-12.0 [facility] Determination of erythrocyte mean corpuscular volume (MCV)Ordered By: Taylor Fast on 01-03-2023 MCV (RBC) [Entitic vol] 96.2 fL 80-94 [facility] Hematocrit Auto (Bld) [Volum e fraction]Ordered By: Atylor Fast on 01-03-2023 Hematocrit (Bld) [Volume fraction] 40.5 % 40-54 [facility] Laboratory - Chemistry and C hemistry - challengeOrdered By: Taylor Fast on 01-03-2023 ALP [Catalytic activity/Vol] 122 U/L 45-117 [facility] ALT [Catalytic activity/Vol] 21 U/L 16-61 [facility] CO2 [Moles/Vol] 29.0 mmol/L 21.0-32.0 [facility] Globulin (S) [Mass/Vol] 3.4 g/dL 2.2-4.2 [facility] Urea nitrogen/Creatinine [Mass ratio] 39.3 mg/mg 10-20 [facility] - Hematology and Cell countsOrdered By: Taylor on 01-03-2023 Erythrocyte distribution width (RBC) [Entitic vol] 45.7 fL 35.1-43.9 [facility] Erythrocyte distribution width (RBC) [Ratio] 12.8 % 11.6-14.6 [facility] Immature granulocytes/100 WBC (Bld) 0.500 % 0.0-0.9 [facility] Comment on above: IG% - Immature Granu locytes (promyelocytes, myelocytes and metamyelocytes) > 1% indicates that a LEFT SHIFT is Present. MCH (RBC) [Entitic mass] 31.8 pg 27.0-32.0 [facility] Nucleated RBC/100 WBC (Bld) [Ratio] 0 % 0-5 [facility] MCHC Auto (RBC) [Mass/Vol]Or dered By: Taylor on 01-03-2023 MCHC (RBC) [Mass/Vol] 33.1 g/dL 32-36 [facility] No Panel InformationOrdered By: Taylor on 01-03-2023 Estimated GFR (MDRD) Amer 258 mL/min >60 [facility] Comment on above: GFR Calc Estimated GFR (MDRD) Non-Af Amer 213 mL/min >60 [facility] Comment on above: Non- GFR Calc Vitamin D 25-Hydroxy 96.1 ng/mL [facility] Comment on above: Vitamin D 25(OH) Sta tus Range Deficiency <20 ng/mL (50nmol/L) Insufficiency 20 - 30 ng/mL (50 - 75 nmol/L) Sufficiency 30 - 100 ng/mL (75 - 250 nmol/L) Toxicity >100 ng/mL (>250 nmol/L) Platelets bldOrdered By: Lyla greene Fast on 01-03-2023 Platelets (Bld) [#/Vol] 207 10*3/uL 150-450 [facility] Serum or plasma albumin marialuisa urement (mass/volume)Ordered By: Taylor Zuniga on 01-03-2023 Albumin [Mass/Vol] 3.6 g/dL 3.2-5.[address] [facility] Serum or plasma albumin/glob ulin mass ratioOrdered By: Taylor Zuniga on 01-03-2023 Albumin/Globulin [Mass ratio] 1.1 {ratio} 0.9-2.4 [facility] Serum or plasma calcium marialuisa urement (mass/volume)Ordered By: Taylor Zuniga on 01-03-2023 Calcium [Mass/Vol] 9.2 mg/dL 8.5-10.[address] [facility] Serum or plasma creatinine m easurement (mass/volume)Ordered By: Taylor Zuniga on 01-03-2023 Creatinine [Mass/Vol] 0.41 mg/dL 0.70-1.30 [facility] Comment on above: The validity of the calculated GFR & GFRAA in patients over 70 years has not been determined. Clinical correlation is essential. Serum or plasma urea nitroge n measurement (mass/volume)Ordered By: Taylor Zuniga on 01-03-2023 Urea nitrogen [Mass/Vol] 16 mg/dL 7-18 [facility] Thin prep Papanicolaou smear with manual screeningOrdered By: Taylor Zuniga on 01-03-2023 Thin prep Papanicolaou smear with manual screening 15 U/L 15-37 [facility] Thin prep Papanicolaou smear with manual screening 4 5-15 [facility] Whole blood hemoglobin A1c/t otal hemoglobin ratio (mass fraction)Ordered By: Taylor Zuniga on 01-03-2023 HbA1c (Bld) [Mass fraction] 5.0 % 3.8-5.6 [facility] Comment on above: Normal < 5.7 % Predi abetic 5.7 - 6.4 % Diabetic >or= 6.5 % Please note range changes. Absolute lymphocyte countOrd ered By: Dr. Zuniga on 09-13-2022 Lymphocytes Auto (Unsp spec) [#/Vol] 1.17 10*3/uL 0.83-4.51 [facility] Basophil percentageOrdered B y: Dr. Zuniga on 09-13-2022 Basophil percentage 0 SEEN /hpf 0-5 [facility] Basophils/100 WBC (Bld) 0.8 % 0-1 [facility] Bilirubin [Mass/Vol] 0.40 mg/dL 0.20-1.00 [facility] Comment on above: For patients on eltr ombopag therapy, use of Dimension [place] TBIL is not recommended. Chloride [Moles/Vol] 105 mmol/L 98-107 [facility] Cholesterol [Mass/Vol] 175 mg/dL <200 [facility] Comment on above: <200 mg/dL Desirable 200-240 mg/dL Borderline >240 mg/dL High Risk Eosinophils/100 WBC (Bld) 3.0 % 0-5 [facility] Glucose [Mass/Vol] 122 mg/dL 74-[address] [facility] Comment on above: Fasting Glucose resu lt from 100 to 125 mg/dL suggests IMPAIRED HOMEOSTASIS per A.D.A. criteria. Neutrophils (Bld) [#/Vol] 2.9 10*3/uL 2.0-7.7 [facility] Neutrophils/100 WBC (Bld) 58.0 % 47-70 [facility] Potassium [Moles/Vol] 4.5 mmol/L 3.5-5.1 [facility] Protein [Mass/Vol] 7.4 g/dL 6.4-8.[address] [facility] Sodium [Moles/Vol] 139 mmol/L 136-[address] [facility] Triglyceride [Mass/Vol] 91 mg/dL <199 [facility] Comment on above: The drugs N-Acetylcy steine and Metamizole may falsely depress this assay.Serum Triglycerides Reference Interval Normal <150 mg/dL Borderline high 150 - 199 mg/dL High 200 - 499 mg/dL Very High > or = 500 mg/dL WBC (Bld) [#/Vol] 5.0 10*3/uL 4.4-11.[address] [facility] Bilirubin Test strip Ql (U)O rdered By: Dr. Zuniga on 09-13-2022 Bilirubin Ql (U) Negative Negative [facility] Blood erythrocytes count (nu mber/volume)Ordered By: Dr. Zuniga on 09-13-2022 RBC (Bld) [#/Vol] 4.25 10*6/uL 4.6-6.2 [facility] Blood hemoglobin measurement (mass/volume)Ordered By: Dr. Zuniga on 09-13-2022 Hemoglobin (Bld) [Mass/Vol] 13.5 g/dL 13.0-16.5 [facility] Blood lymphocytes/100 leukoc ytesOrdered By: Dr. Zuniga on 09-13-2022 Lymphocytes/100 WBC (Bld) 23.5 % 19-41 [facility] Blood monocytes/100 leukocyt esOrdered By: Dr. Zuniga on 09-13-2022 Monocytes/100 WBC (Bld) 14.3 % 0-10 [facility] Blood platelet mean volumeOr dered By: Dr. Zuniga on 09-13-2022 Platelet mean volume (Bld) [Entitic vol] 11.4 fL 6.2-12.0 [facility] Determination of erythrocyte mean corpuscular volume (MCV)Ordered By: Dr. Zuniga on 09-13-2022 MCV (RBC) [Entitic vol] 97.9 fL 80-94 [facility] Hematocrit Auto (Bld) [Volum e fraction]Ordered By: Dr. Zuniga on 09-13-2022 Hematocrit (Bld) [Volume fraction] 41.6 % 40-54 [facility] Ketones Test strip Ql (U)Ord ered By: Dr. Zuniga on 09-13-2022 Ketones Ql (U) Negative Negative [facility] Laboratory - Chemistry and C hemistry - challengeOrdered By: Dr. Zuniga on 09-13-2022 ALP [Catalytic activity/Vol] 63 U/L 45-117 [facility] ALT [Catalytic activity/Vol] 26 U/L 16-61 [facility] CO2 [Moles/Vol] 29.0 mmol/L 21.0-32.0 [facility] Cobalamin (Vitamin B12) [Mass/Vol] 982 pg/mL 211-911 [facility] Globulin (S) [Mass/Vol] 3.6 g/dL 2.2-4.2 [facility] Natriuretic peptide B (Bld) [Mass/Vol] 20.3 pg/mL 0-100 [facility] Urea nitrogen/Creatinine [Mass ratio] 48.7 mg/mg 10-20 [facility] Laboratory - Hematology and Cell countsOrdered By: Dr. Zuniga on 09-13-2022 Erythrocyte distribution width (RBC) [Entitic vol] 46.2 fL 35.1-43.9 [facility] Erythrocyte distribution width (RBC) [Ratio] 12.9 % 11.6-14.6 [facility] Immature granulocytes/100 WBC (Bld) 0.400 % 0.0-0.9 [facility] Comment on above: IG% - Immature Granu locytes (promyelocytes, myelocytes and metamyelocytes) > 1% indicates that a LEFT SHIFT is Present. MCH (RBC) [Entitic mass] 31.8 pg 27.0-32.0 [facility] Nucleated RBC/100 WBC (Bld) [Ratio] 0 % 0-5 [facility] MCHC Auto (RBC) [Mass/Vol]Or dered By: Dr. Zuniga on 09-13-2022 MCHC (RBC) [Mass/Vol] 32.5 g/dL 32-36 [facility] Mucus LM Ql (Urine sed)Order ed By: Dr. Zuniga on 09-13-2022 Mucus Ql (Urine sed) 0 SEEN /hpf [facility] Nitrite Test strip Ql (U)Ord ered By: Dr. Zuniga on 09-13-2022 Nitrite Ql (U) Negative Negative [facility] No Panel InformationOrdered By: Dr. Zuniga on 09-13-2022 Estimated GFR (MDRD) Amer 255 mL/min >60 [facility] Comment on above: GFR Calc Estimated GFR (MDRD) Non-Af Amer 211 mL/min >60 [facility] Comment on above: Non- GFR Calc Prostate Specific Antigen Screen 3.23 ng/mL 0.00-4.00 [facility] Comment on above: This test was perfor med using the TPSA assay method [facility] the[facility]. Values obtained with differentassay methods cannot be used interchangably.When changing PSA assays in the course of monitoring apatient, additional sequential testing should be carriedout to confirm baseline values. Thyroid Stimulating Hormone (TSH) 2.06 uIU/mL 0.358-3.74 [facility] Urine Microalbumin/Creatinin e Ratio 54.2 mg/g CRE <30 [facility] Vitamin D 25-Hydroxy 95.7 ng/mL [facility] Comment on above: Vitamin D 25(OH) Sta tus Range Deficiency <20 ng/mL (50nmol/L) Insufficiency 20 - 30 ng/mL (50 - 75 nmol/L) Sufficiency 30 - 100 ng/mL (75 - 250 nmol/L) Toxicity >100 ng/mL (>250 nmol/L) Platelets bldOrdered By: Dr. Zuniga on 09-13-2022 Platelets (Bld) [#/Vol] 188 10*3/uL 150-450 [facility] Protein Test strip Ql (U)Ord ered By: Dr. Zuniga on 09-13-2022 Protein Ql (U) Negative Negative [facility] Serum or plasma albumin marialuisa urement (mass/volume)Ordered By: Dr. Zuniga on 09-13-2022 Albumin [Mass/Vol] 3.8 g/dL 3.2-5.[address] [facility] Serum or plasma albumin/glob ulin mass ratioOrdered By: Dr. Zuniga on 09-13-2022 Albumin/Globulin [Mass ratio] 1.1 {ratio} 0.9-2.4 [facility] Serum or plasma calcium marialuisa urement (mass/volume)Ordered By: Dr. Zuniga on 09-13-2022 Calcium [Mass/Vol] 9.4 mg/dL 8.5-10.[address] [facility] Serum or plasma cholesterol in HDL measurement (mass/volume)Ordered By: Dr. Zuniga on 09-13-2022 Cholesterol in HDL [Mass/Vol] 79 mg/dL >40 [facility] Comment on above: The drugs N-Acetylcy steine and Metamizole may falsely depress this assay. Reference Range HDL <40 mg/dL Low HDL Cholesterol HDL >or= 60 mg/dL High HDL Cholesterol Serum or plasma cholesterol in VLDL measurement (mass/volume)Ordered By: Dr. Zuniga on 09-13-2022 Cholesterol in VLDL [Mass/Vol] 18 mg/dL 5-40 [facility] Serum or plasma creatinine m easurement (mass/volume)Ordered By: Dr. Zuniga on 09-13-2022 Creatinine [Mass/Vol] 0.41 mg/dL 0.70-1.30 [facility] Comment on above: The validity of the calculated GFR & GFRAA in patients over 70 years has not been determined. Clinical correlation is essential. Serum or plasma folate measu rement (mass/volume)Ordered By: Dr. Zuniga on 09-13-2022 Folate [Mass/Vol] 29.20 ng/mL 3.1-55.[address] [facility] Serum or plasma low density lipoprotein (LDL) cholesterol measurement (mass/volume)Ordered By: Dr. Zuniga on 09-13-2022 Cholesterol in LDL [Mass/Vol] 78 mg/dL 0-130 [facility] Serum or plasma urea nitroge n measurement (mass/volume)Ordered By: Dr. Zuniga on 09-13-2022 Urea nitrogen [Mass/Vol] 20 mg/dL 7-18 [facility] Squamous epithelial cells de tection in urine sediment by light microscopyOrdered By: Dr. Zuniga on 09-13-2022 Epithelial cells.squamous LM Ql (Urine sed) 0 SEEN /hpf 0-5 [facility] Thin prep Papanicolaou smear with manual screeningOrdered By: Dr. Zuniga on 09-13-2022 Thin prep Papanicolaou smear with manual screening 16 U/L 15-37 [facility] Thin prep Papanicolaou smear with manual screening 5 5-15 [facility] Thin prep Papanicolaou smear with manual screening 16.1 mg/L NO RANGE EST. [facility] Urine blood detectionOrdered By: Dr. Zuniga on 09-13-2022 RBC Ql (U) Negative Negative [facility] RBC Ql (U) 0 SEEN /hpf 0-5 [facility] Urine clarityOrdered By: Dr. Zuniga on 09-13-2022 Clarity (U) Clear Clear [facility] Urine color determinationOrd ered By: Dr. Zuniga on 09-13-2022 Color (U) Yellow Yellow [facility] Urine creatinine measurement (mass/volume)Ordered By: Dr. Zuniga on 09-13-2022 Creatinine (U) [Mass/Vol] 29.70 mg/dL NO RANGE EST. [facility] Urine glucose detectionOrder ed By: Dr. Zuniga on 09-13-2022 Glucose Ql (U) Normal mg/dl Normal [facility] Urine leukocyte esterase det ection by dipstickOrdered By: Dr. Zuniga on 09-13-2022 Leukocyte esterase Test strip Ql (U) 25 /ul Negative [facility] Urine pHOrdered By: Dr. Zuniga on 09-13-2022 pH (U) 6.5 [pH] 5.0 - 8.0 [facility] Urine sediment bacteria coun t by microscopy (number/high power field)Ordered By: Dr. Zuniga on 09-13-2022 Bacteria LM.HPF (Urine sed) [#/Area] 0 /[HPF] None Seen [facility] Urine specific gravity measu rementOrdered By: Dr. Zuniga on 09-13-2022 Specific gravity (U) [Rel density] 1.010 1.002-1.03 0 [facility] Urobilinogen Auto test strip Ql (U)Ordered By: Dr. Zuniga on 09-13-2022 Urobilinogen Ql (U) Normal mg/dl Normal [facility] Vital Signs Date Time Vital Sign Value Performing Clinician Facility 03-13-2025 09:27-0500 Heart rate 66 /min Dr. Taylor Zuniga DO Work Phone: [facility] 03-13-2025 09:21-0500 Body temperature 99.1 [degF] Dr. Taylor Zuniga DO Work Phone: [facility] 03-13-2025 09:21-0500 Diastolic blood pressure 47 mm[Hg] Dr. Taylor Zuniga DO Work Phone: [facility] 03-13-2025 09:21-0500 Respiratory rate 15 /min Dr. Taylor Zuniga DO Work Phone: [facility] 03-13-2025 09:21-0500 SaO2% (BldA) [Mass fraction] 95 % Dr. Taylor Zuniga DO Work Phone: [facility] 03-13-2025 09:21-0500 Systolic blood pressure 120 mm[Hg] Dr. Taylor Zuniga DO Work Phone: [facility] 03-11-2025 13:54-0500 Body height [address] Taylor Zuniga DO Work Phone: [facility] 03-11-2025 13:54-0500 Body weight 68.[address] Taylor Zuniga DO Work Phone: [facility] 03-05-2025 16:00-0400 Body mass index (BMI) [Ratio] 23.6 kg/m2 Dr. Taylor Zuniga DO Work Phone: [facility] 02-24-2025 21:50-0400 Body temperature 98.3 [degF] Dr. Taylor Zuniga DO Work Phone: [facility] 02-24-2025 21:50-0400 Diastolic blood pressure 63 mm[Hg] Dr. Taylor Zuniga DO Work Phone: [facility] 02-24-2025 21:50-0400 Heart rate 68 /min Dr. Taylor Zuniga DO Work Phone: [facility] 02-24-2025 21:50-0400 Respiratory rate 18 /min Dr. Taylor Zuniga DO Work Phone: [facility] 02-24-2025 21:50-0400 SaO2% (BldA) [Mass fraction] 99 % Dr. Taylor Zuniga DO Work Phone: [facility] 02-24-2025 21:50-0400 Systolic blood pressure 189 mm[Hg] Dr. Taylor Zuniga DO Work Phone: [facility] 02-24-2025 17:04-0400 Body mass index (BMI) [Ratio] 24.5 kg/m2 Dr. Taylor Zuniga DO Work Phone: [facility] 02-24-2025 17:04-0400 Body weight 70.[address] Taylor Zuniga DO Work Phone: [facility] 12-17-2022 15:35-0400 Body height 177.8 cm [facility] 12-17-2022 15:35-0400 Body temperature 97.2 [degF] [facility] 12-17-2022 15:35-0400 Diastolic blood pressure 68 mm[Hg] [facility] 12-17-2022 15:35-0400 Heart rate 65 /min [facility] 12-17-2022 15:35-0400 Respiratory rate 18 /min [facility] 12-17-2022 15:35-0400 SaO2% (BldA) [Mass fraction] 98 % [facility] 12-17-2022 15:35-0400 Systolic blood pressure 167 mm[Hg] [facility] 12-15-2022 21:37-0400 Diastolic blood pressure 78 mm[Hg] [...] Evaluation and management of inpatient Taylor Fast Facility:[facility] Start: 02-26-2025 End: 02-26-2025 Evaluation and management of inpatient [facility] Facility:[facility] Start: 02-24-2025 End: 03-05-2025 Evaluation and management of inpatient [facility] Facility:[facility] Start: 02-24-2025 ambulatory Taylor Fast Facility:[facility] Start: 02-24-2025 Non-patient / Non-visit Dr. Windy Jasso MD -[facility] Start: 02-24-2025 End: 02-24-2025 Emergency department patient visit Dr. Zee Alonso DO -Emergency Department Work Phone: Start: 12-18-2024 End: 12-18-[address] Taylor Zuniga DO Work Phone: -Laboratory Start: 12-18-2024 End: 12-18-[address] Taylor Zuniga DO -Laboratory Work Phone: Start: 12-18-2024 End: 12-18-2024 ambulatory Taylor Fast Facility:[facility] Start: 09-16-2024 End: 09-16-[address] Taylor Zuniga DO Work Phone: [facility] Work Phone: Start: 09-16-2024 End: 09-16-[address] Taylor Zuniga DO -Laboratory Work Phone: Start: 09-16-2024 End: 09-16-2024 ambulatory Taylor Fast Facility:[facility] Start: 06-19-2024 End: 06-19-[address] Taylor Zuniga DO -Laboratory Work Phone: Start: 06-19-2024 End: 06-19-2024 ambulatory Taylor Fast Facility:[facility] Start: 07-27-2023 End: 07-27-2023 ambulatory [facility] Work Phone: Start: 07-27-2023 End: 07-27-2023 Patient encounter procedure [facility]-Laboratory Work Phone: Start: 04-18-2023 End: 04-18-2023 ambulatory [facility] Work Phone: Start: 04-18-2023 End: 04-18-2023 Patient encounter procedure [facility]-Laboratory Work Phone: Start: 03-15-2023 End: 03-15-2023 ambulatory [facility] Work Phone: Start: 03-15-2023 End: 03-15-2023 Patient encounter procedure [facility]-Laboratory Work Phone: Start: 01-03-2023 End: 01-03-2023 ambulatory [facility] Work Phone: Start: 01-03-2023 End: 01-03-2023 Patient encounter procedure [facility]-Laboratory Work Phone: Start: 12-17-2022 End: 12-17-2022 Emergency department patient visit [facility]-Emergency Department Work Phone: Start: 12-15-2022 End: 12-25-2022 Home visit est pt mod-hi severity 40 minutes Taylor Fast DO Work Phone: [facility] Start: 09-13-2022 End: 10-04-2022 ambulatory [facility] Work Phone: Start: 09-13-2022 End: 10-04-2022 Discharged Recurring [facility] Start: 08-23-2022 End: 08-23-2022 Phone [...] 02-24-[address] Taylor Zuniga [employer] Work Phone: Start: 02-24-2025 CT of thorax, abdome n and pelvis with contrast Dr. Taylor Zuniga DO Work Phone: Start: 12-18-2024 Vitamin D, 25-hydrox y measurement Dr. Taylor Zuniga [employer] Work Phone: Comment on above: Vitamin D [...] 3 Views Procedure Note: See Note; NOTES: [facility] Imaging Services [address] [place] [address] Lumbar Spine 2 or 3 Views MR#: [id number] Acct: [id number] Name: JEANIE RANKIN Rep #: [id number] : 1940 M 82 From: Pauile Licona MD PCP: Dr. Taylor Zuniga DO Status: REG ER Study: Lumbar Spine 2 or 3 Views Date of Exam: Exam# [id number] Ordering Dr: Tor Yadav MD STUDY: X-RAY [...] Taylor Zuniga DO; Dr. Tor Yadav MD Special Procedures Nurse: Signed Taylor Zuniga DO Work Phone: Start: 12-17-2022 X-ray of lumbar spin e, two or three views Start: 12-17-2022 End: 12-17-2022 Emergency Department Summary Procedure Note: See Note; NOTES: [facility] Medical Records Department [address] [place] [address] Emergency Department Summary 12/17/22 MR#: [id number] Acct: [id number] Name: JEANIE RANKIN Rep #: [id number] : 1940 82 From: Tor Yadav MD [...] blood thinners, vomiting, feeling dazed or confused. [facility] <BENNETT Miranda - Last Filed: 12/17/22 18:48> [facility] Medical History Anemia CYST EXCISION RIGHT BREAST [...] Mild Itching Verified 12/17/22 15:35 [From Neosporin ([id number])] neomycin AdvReac Mild Itching Verified 12/17/22 15:35 [From Neosporin ([id number])] polymyxin B AdvReac Mild Itching Verified 12/17/22 15:35 [From Neosporin ([id number])] adhesive tape AdvReac Unknown Verified 12/17/22 15:35 [...] with epi Irrigated (ml): 100 Number of Sutures/[place]: 6 Suture Information: Ethilon (4-0) and Simple [...] your Primary Care Provider. Call [facility] ([phone]) or report to the closest Emergency Room. [...] Activity Detail Author Start: 03-12-2025 Wound care [facility] Start: 03-08-2025 End: 03-09-2025 [facility] Start: 03-06-2025 Verification routine [facility] Start: 03-06-2025 Development of care plan [facility] Start: 03-06-2025 Speech therapy management [facility] Start: 03-06-2025 Developing a treatment plan [facility] Start: 03-05-2025 Speech therapy assessment [facility] Start: 03-05-2025 Following clinical pathway protocol [facility] Start: 03-05-2025 Admission procedure [facility] Start: 03-05-2025 Introduction of urinary catheter [facility] Start: 03-05-2025 Measuring intake and output [facility] Start: 03-05-2025 End: 03-06-2025 Patient referral to dietitian [facility] Start: 03-05-2025 Referral for physical therapy [facility] Start: 03-05-2025 Referral to occupational therapist [facility] Start: 03-05-2025 Vital signs measurements [facility] Start: 03-05-2025 [facility] Start: 03-05-2025 Evaluation and management of inpatient [facility] Start: 02-24-2025 End: 02-24-2025 [facility] Start: 12-25-2022 Blood count complete auto&auto difrntl wbc CBC W/AUTO DIFF WBC (28023) [facility]; [facility] Work Phone: Start: 12-25-2022 25 hydroxy includes fractions if performed Vitamin D Hydroxy (50270) [facility]; [facility] Work Phone: Start: 12-25-2022 Hemoglobin glycosylated a1c HGB A1C (85201) [facility]; [facility] Work Phone: Start: 12-25-2022 Comprehensive metabolic panel METABOLIC PANEL, COMPREHENSIVE (33693) [facility]; [facility] Work Phone: Start: 12-25-2022 Procedure Education Eprescribed prescriptions (G8553) [facility]; [facility] Work Phone: Start: 12-17-2022 Smpl repair scalp/neck/ax/genit/trun k 2.6-7.5cm RPR S/N/AX/GEN/TRNK2.6-7.5C M [facility] Start: 08-22-2022 Natriuretic peptide BNTP (91192) [facility]; [facility] Work Phone: Start: 08-22-2022 Assay of prostate specific antigen total PSA (Medicare - G0103) (06707) [facility]; [facility] Work Phone: Start: 08-22-2022 Lipid panel LIPID PANEL (68979) [facility]; [facility] Work Phone: Start: 08-22-2022 25 hydroxy includes fractions if performed Vitamin D Hydroxy (19962) [facility]; [facility] Work Phone: Start: 08-22-2022 Cyanocobalamin vitamin b-12 VITAMIN B12 AND FOLATES (83600) [facility]; [facility] Work Phone: Start: 08-22-2022 Urine albumin quantitative MICROALBUMIN: CREATININE RATIO (10705) AND (99136) [facility]; [facility] Work Phone: Start: 08-22-2022 Urnls dip stick/tablet reagent auto microscopy URINALYSIS, W/ MICRO (89872) [facility]; [facility] Work Phone: Start: 08-22-2022 Assay of thyroid stimulating hormone tsh TSH (87295) [facility]; [facility] Work Phone: Start: 08-22-2022 Blood count complete auto&auto difrntl wbc CBC W/AUTO DIFF WBC (12816) [facility]; [facility] Work Phone: Start: 08-22-2022 Comprehensive metabolic panel METABOLIC PANEL, COMPREHENSIVE (22314) [facility]; [facility] Work Phone: Anion gap in Serum o r Plasma [facility] Anion gap in Serum o r Plasma [facility] Anion gap in Serum o r Plasma [facility] Anion gap in Serum o r Plasma [facility] Anion gap in Serum o r Plasma [facility] BUN/Creatinine ratio [facility] BUN/Creatinine ratio [facility] BUN/Creatinine ratio [facility] BUN/Creatinine ratio [facility] BUN/Creatinine ratio [facility] Calcium [Mass/volume ] in Serum or Plasma [facility] Calcium [Mass/volume ] in Serum or Plasma [facility] Calcium [Mass/volume ] in Serum or Plasma [facility] Calcium [Mass/volume ] in Serum or Plasma [facility] Calcium [Mass/volume ] in Serum or Plasma [facility] Carbon dioxide katalina nt measurement [facility] Carbon dioxide katalina nt measurement [facility] Carbon dioxide katalina nt measurement [facility] Carbon dioxide katalina nt measurement [facility] Carbon dioxide katalina nt measurement [facility] Creatinine [Mass/vol ume] in Serum or Plasma [facility] Creatinine [Mass/vol ume] in Serum or Plasma [facility] Creatinine [Mass/vol ume] in Serum or Plasma [facility] Creatinine [Mass/vol ume] in Serum or Plasma [facility] Creatinine [Mass/vol ume] in Serum or Plasma [facility] Erythrocyte mean corpuscular volume determination [facility] Erythrocyte mean corpuscular volume determination [facility] Erythrocyte mean corpuscular volume determination [facility] Erythrocyte mean corpuscular volume determination [facility] Erythrocyte mean corpuscular volume determination [facility] Glucose [Mass/volume ] in Serum or Plasma [facility] Glucose [Mass/volume ] in Serum or Plasma [facility] Glucose [Mass/volume ] in Serum or Plasma [facility] Glucose [Mass/volume ] in Serum or Plasma [facility] Glucose [Mass/volume ] in Serum or Plasma [facility] Hematocrit [Volume Fraction] of Blood [facility] Hematocrit [Volume Fraction] of Blood [facility] Hematocrit [Volume Fraction] of Blood [facility] Hematocrit [Volume Fraction] of Blood [facility] Hematocrit [Volume Fraction] of Blood [facility] Hemoglobin [Mass/vol ume] in Blood [facility] [facility] Hemoglobin [Mass/vol ume] in Blood [facility] Hemoglobin [Mass/vol ume] in Blood [facility] Hemoglobin [Mass/vol ume] in Blood [facility] Hemoglobin [Mass/vol ume] in Blood [facility] Leukocytes [#/volume ] in Blood [facility] Leukocytes [#/volume ] in Blood [facility] Leukocytes [#/volume ] in Blood [facility] Leukocytes [#/volume ] in Blood [facility] Leukocytes [#/volume ] in Blood [facility] Mean corpuscular hemoglobin concentration determination [facility] Mean corpuscular hemoglobin concentration determination [facility] Mean corpuscular hemoglobin concentration determination [facility] Mean corpuscular hemoglobin concentration determination [facility] Mean corpuscular hemoglobin concentration determination [facility] Mean corpuscular hemoglobin determination [facility] Mean corpuscular hemoglobin determination [facility] Mean corpuscular hemoglobin determination [facility] Mean corpuscular hemoglobin determination [facility] Mean corpuscular hemoglobin determination [facility] Measurement of renal function [facility] Measurement of renal function [facility] Measurement of renal function [facility] Measurement of renal function [facility] Measurement of renal function [facility] Neutrophil count [facility] Neutrophil count [facility] Neutrophil count [facility] Neutrophil count [facility] Neutrophil count [facility] Neutrophil percent differential count [facility] Neutrophil percent differential count [facility] Neutrophil percent differential count [facility] Neutrophil percent differential count [facility] Neutrophil percent differential count [facility] Patient Education ED Head Injury (Adult) ED Laceration Scalp Stitches or [place] [facility] Work Phone: Patient referral [facility] Work Phone: Platelets [#/volume] in Blood [facility] Platelets [#/volume] in Blood [facility] Platelets [#/volume] in Blood [facility] Platelets [#/volume] in Blood [facility] Platelets [#/volume] in Blood [facility] Potassium measurement [facility] Potassium measurement [facility] Potassium measurement [facility] Potassium measurement [facility] Potassium measurement [facility] Red blood cell count [facility] Red blood cell count [facility] Red blood cell count [facility] Red blood cell count [facility] Red blood cell count [facility] Red cell distributio n width determination [facility] Red cell distributio n width determination [facility] Red cell distributio n width determination [facility] Red cell distributio n width determination [facility] Red cell distributio n width determination [facility] Serum chloride measurement [facility] Serum chloride measurement [facility] Serum chloride measurement [facility] Serum chloride measurement [facility] Serum chloride measurement [facility] Sodium measurement [facility] Sodium measurement [facility] Sodium measurement [facility] Sodium measurement [facility] Sodium measurement [facility] Urea nitrogen [Mass/volume] in Serum or Plasma [facility] Urea nitrogen [Mass/volume] in Serum or Plasma [facility] Urea nitrogen [Mass/volume] in Serum or Plasma [facility] Urea nitrogen [Mass/volume] in Serum or Plasma [facility] Urea nitrogen [Mass/volume] in Serum or Plasma [facility] Work Phone: Immunizations Immunization Date Immunization Notes Care Provider Fa elsie 12-17-2022 tetanus toxoid, redu jonathan diphtheria toxoid, and acellular pertussis vaccine, adsorbed [facility] 03-29-2016 tetanus and diphther ia toxoids, adsorbed, preservative free, for adult use (2 Lf of tetanus toxoid and 2 Lf of diphtheria toxoid) [facility] Payers Date Payer Category Payer Self-pay [id number] 2022 Private Health Insurance [facility] [id number] 2011 Unknown [id number] 2003 Medicare [id number] 1940 Unknown [id number] 2.16.84 [id number] Unknown Unknown [id number] 2.16.8 [id number] Unknown [id number] 2.16.8 [id number] Unknown [id number] 2.16.8 [id number] Unknown [id number] 2.16.8 [id number] Unknown [id number] 2.16.8 [id number] Unknown [id number] 2.16.8 [id number] Social History Date Type Detail Facility Current Household Members Current Household Members [facility] Work Phone: 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 none but 2 children adopted daughter and son - Start: 12-04-2018 End: 12-17-2022 Tobacco smoking status COIS Unknown if ever smoked [facility] Start: 1940 Sex Assigned At Male W [facility] Start: 02-01-2024 End: 03-05-2025 Tobacco smoking status NHIS Never smoked tobacco (finding) [facility] Sex Male [facility] Goals Date Patient Goal Desired Activity /State Functional Status Date Assessment Result Facility 03-13-2025 Functional status Lift Assist Si t to Stand Lift [facility] Work Phone: 03-12-2025 Functional status Activity Abili ty With Assist of 2 [facility] Work Phone: Mental Status Date Assessment Result Facility 03-12-2025 Cognitive function Voice/Name [facility] Work Phone: 03-11-2025 Cognitive function Appropriate [facility] Work Phone: Clinical Notes 12-17-2022 to 03-05-2025 Note Date & Type Note Facility 03-05-2025 Note [facility] Medical Records Department [address] [place] [address] History Physical Exam 03/05/251811 MR#: [id number] Acct: [id number] Name: JEANIE RANKIN Rep #: [id number] : 1940 84 From: Rey Henao MD PCP: Dr. Taylor Zuniga, DO Status:ADM IN Location: [facility] - General General Date of Admission: 03/05/25 Date of Service: 02/26/25 Chief Complaint: Here for rehabilitation. HPI Narrative JEANIE RANKIN, is a 84 Male who presents with followin02/25/2025 Admit [facility]. Abdominal pain, nausea, vomiting for 3 [...] strengthening, prior to discharge home with . [facility] Medical History (Updated 03/05/25 @ 18:21 by [...] Neosporin AdvReac Mild Itching Verified 02/24/25 17:08 ([id number])) neomycin (From Neosporin AdvReac Mild Itching Verified 02/24/25 17:08 ([id number]-[id number])) polymyxin B (From Neosporin AdvReac Mild Itching Verified 02/24/25 17:08 (ahb-osn-iwltx)) adhesive tape AdvReac Unknown Verified 02/24/25 17:08 [...] ideation Vital Signs (more content not included)... [facility] 03-05-2025 Note HNO ID: [id number] Author: MAGDA SQUIRES DO Service: Hospital Medicine Author Type: Physician Type: Progress Notes Filed: 03/05/2025 16:43 Note Text: INPATIENT PROGRESS NOTE DEPARTMENT OF HOSPITAL MEDICINE SERVICE DATE: 03/04/2025 NIGHT AND WEEKEND COVERAGE: From 7am - 7pm, please call Sound Attending After 7pm, please call cross cover pager #[phone] Subjective No acute events overnight. Underwent procedure [...] [facility] 03-05-2025 Note HNO ID: [id number] Author: HARLAN ANDREW, PRASANTH Service: Care Management Author Type: Registered Nurse Type: Care Mgt Progress Note Filed: 03/05/2025 12:42 Note Text: CARE MANAGEMENT PROGRESS NOTE SERVICE DATE: 03/05/2025 SERVICE TIME: 12:29 PM LOS: 8 days Post-Acute Discharge Planning Patient Goal(s): Better appetite, Better mobility [place] of Choice Explained: Discharge Planning Participant(s): Patient, Spouse/significant other Patient/Family Comments: Anticipated # of Days Until Discharge: 0 Transport at Discharge: Transportation Arrangements: Ambulance Transportation Agency and Phone #:: [facility] ( [facility] ) [phone] / [phone] Date of Trip: 03/05/25 Time of Trip: 1400 Type of Service: BLS Non-emergency Is Patient Medicaid Pending?: No Was transportation financial coverage discussed with family?: Patient [employer] Machine [employer] Supervisor Location: [facility] Destination: [facility] Financial Care Management Responsibility: None Needs Prior to Discharge: Needs Prior to Discharge: None, Ready for Discharge IMM Follow Up Copy Given: Yes Copy given to:: Patient Method: In Person Post-Acute Discharge Plan: Plan discharge to [facility] today at 2pm. Patient and spouse in agreement with plan. RN to call report and send AVS in envelope provided. SIGNATURE: Harlan Andrew RN PATIENT NAME: Jeanie Rankin DATE: March 05, 2025 TIME: 12:29 PM [facility] 03-05-2025 Note HNO ID: [id number] Author: BLAINE CASIANO MD Service: Care Management [...] [facility] 03-05-2025 Note HNO ID: [id number] Author: BLAINE CASIANO MD Service: General Surgery [...] Agree with below. Patient is POD1 from [facility]. Patient reports improvement of symptoms and [...] questions or concerns Mon-Sun 6a-5p please page [phone]. After 5pm and on Weekends and Holidays, please page [phone] if in ICU or [phone] if on [...] 0659 03/05/25 07 - 03/06/25 0659 Shift 6945-7772 1034-2658 7753-3682 24 Hour Total 1833-8167 5271-9390 2210-2692 24 Hour Total INTAKE IV 2400 2400 [...] [facility] 03-05-2025 Note HNO ID: [id number] Author: NGUYEN NASH MD Service: General Surgery [...] Nguyen Nash MD General Surgery PGY-1 March 05349657:[id number] AM [facility] 03-04-2025 Note HNO ID: [id number] Author: MAGDA SQUIRES DO Service: Hospital Medicine Author Type: Physician Type: Progress Notes Filed: 03/05/2025 16:43 Note Text: INPATIENT PROGRESS NOTE DEPARTMENT OF HOSPITAL MEDICINE SERVICE DATE: 03/04/2025 NIGHT AND WEEKEND COVERAGE: From 7am - 7pm, please call Sound Attending After 7pm, please call cross cover pager #[phone] Subjective No acute events overnight. Has been [...] [facility] 03-04-2025 Note HNO ID: [id number] Author: GABBY CHEN APRN.CRNA Service: Nursing Author Type: Nurse Rn Patient Care Type: Anesthesia Procedure Notes Filed: 03/04/2025 15:50 Note Text: ANESTHESIOLOGY PROCEDURE NOTE Airway General Information Procedure Start Time/Medication Administration: 03/04/2025 3:18 PM Procedure End Time: 03/04/2025 3:18 PM Patient location during procedure: OR Patient identity confirmed: arm band and patient Staffing Anesthesiologist: Naya Aguilera MD BILINGUAL HR GENERALIST: Gabby Chen APRN.BILINGUAL HR GENERALIST Performed by: MARLY Indications and Patient Condition [...] March 04, 2025 TIME: 3:49 PM CSN: [id number] [facility] 03-04-2025 Note HNO ID: [id number] Author: AYAZ MERINO LISW Service: Care Management Author Type: Medical Office Coordinator Type: Care Mgt Progress Note Filed: 03/04/2025 14:09 Note Text: CARE MANAGEMENT PROGRESS NOTE SERVICE DATE: 03/04/2025 SERVICE TIME: 11:05 AM LOS: 7 days Patient on the schedule for surgery today for hernia repair. Plan is [facility] once medically ready and bed available. [...] [facility] 03-04-2025 Note HNO ID: [id number] Author: ANNE STUBBS DO Service: General Surgery [...] questions or concerns Mon-Fri 6a-5p please page [phone]. After 5pm and on Weekends and Holidays, please page [phone]. SUBJECTIVE: Doing well. Tolerated protein shakes yesterday. [...] 0659 03/04/25 0700 - 03/05/25 0659 Shift 3088-4531 7883-5597 0876-1901 24 Hour Total 9637-8348 8860-7931 6356-7614 24 Hour Total INTAKE PO 120 120 PO 120 120 Shift Total 120 120 OUTPUT Urine 577 599 5866 Void (ml) 570 822 4374 Urine Not Saved. 1 x 1 x # of BMs Stool Incontinence 1 x 1 x Number of BMs 0 x 0 x Shift Total 570 316 8675 Weight (kg) 64.2 64.2 64.2 64.2 64.2 [...] [facility] 03-03-2025 Note HNO ID: [id number] Author: KAREEM PEREZ DO Service: Hospital Medicine Author Type: Physician Type: Progress Notes Filed: 03/03/2025 12:06 Note Text: DEPARTMENT OF HOSPITAL MEDICINE PROGRESS NOTE SERVICE DATE: March 03, 2025 SERVICE TIME: 12:02 PM Hospital Medicine/Primary Attending: KAREEM PEREZ DO, DO NIGHT AND WEEKEND COVERAGE: After 7pm please page [phone] INTERVAL HPI: Follow up GOO NG remains [...] [facility] 03-03-2025 Note HNO ID: [id number] Author: BLAINE CASIANO MD Service: General Surgery [...] and on Weekends and Holidays, please page [phone] if in ICU or [phone] if on RNF. SUBJECTIVE: Pt tolerated PPN [...] 03/02/25699 - 03/03/2565803/03/25699 - 03/04/25 0659 Shift 5484-4805 1848-3089 1889-2220 24 Hour Total 5864-5152 0798-3460 3567-7981 24 Hour Total INTAKE PO 100 100 [...] [facility] 03-02-2025 Note HNO ID: [id number] Author: HARLAN ANDREW RN Service: Care Management Author Type: Registered Nurse Type: Care Mgt Progress Note Filed: 03/02/2025 15:39 Note Text: CARE MANAGEMENT PROGRESS NOTE SERVICE DATE: 03/02/2025 SERVICE TIME: 3:38 PM LOS: 5 days [facility] accepted. Patient and spouse informed. Plan discharge to [facility] when medically stable. Sx planned for 03/04. . SIGNATURE: Harlan Andrew RN PATIENT NAME: Jeanie Rankin DATE: March 02, 2025 TIME: 3:38 PM [facility] 03-02-2025 Note HNO ID: [id number] Author: KAREEM PEREZ DO Service: Hospital Medicine Author Type: Physician Type: Progress Notes Filed: 03/02/2025 11:55 Note Text: DEPARTMENT OF HOSPITAL MEDICINE PROGRESS NOTE SERVICE DATE: March 02, 2025 SERVICE TIME: 11:50 AM Hospital Medicine/Primary Attending: KAREEM PEREZ DO, DO NIGHT AND WEEKEND COVERAGE: After 7pm please page [phone] INTERVAL HPI: Follow up GOO NG remains [...] [facility] 03-02-2025 Note HNO ID: [id number] Author: BLAINE CASIANO MD Service: General Surgery [...] questions or concerns Mon-Sun 6a-5p please page [phone]. After 5pm and on Weekends and Holidays, please page [phone] if in ICU or [phone] if on RNF. SUBJECTIVE: DAVIS. Continues to [...] 0659 03/02/25 07 - 03/03/25 0659 Shift 6641-3273 8990-7009 6105-4963 24 Hour Total 8812-6334 6802-7727 2781-1434 24 Hour Total INTAKE Shift Total OUTPUT [...] [facility] 03-01-2025 Note HNO ID: [id number] Author: GLADIS REES, RN Service: Care Management Author Type: Registered Nurse Type: Care Mgt Progress Note Filed: 03/01/2025 12:24 Note Text: CARE MANAGEMENT PROGRESS NOTE SERVICE DATE: 03/01/2025 SERVICE TIME: 12:21 PM LOS: 4 days [place] of Choice Given: Yes Level of Care Discussed: Intermediate Facility Financial Disclosure Provided: Yes Financial Disclosure Comments: [facility] connected care Provider List: Intermediate Facility Provider list within the patient's requested geographic area shared with the patient/family: Yes within: 10 miles of zip code: [address] Quality and resource use metrics shared with [...] spouse are agreeable and referral sent to [facility]. Advised to review list if needed for alternate SNF choices. Will need accepting SNF and cot transport. No precert needed. CM to follow for transitional care planning. SIGNATURE: Gladis Rees RN PATIENT NAME: Jeanie Rankin DATE: March 01, 2025 TIME: 12:21 PM [facility] 03-01-2025 Note HNO ID: [id number] Author: FARIBA BOLAÑOS MD Service: Hospital Medicine Author Type: Physician Type: Progress Notes Filed: 03/01/2025 12:00 Note Text: DEPARTMENT OF HOSPITAL MEDICINE PROGRESS NOTE SERVICE DATE: March 01, 2025 SERVICE TIME: 11:56 AM Hospital Medicine/Primary Attending: Fariba Bolaños NIGHT AND WEEKEND COVERAGE: After 7pm please page [phone] INTERVAL HPI: Follow up GOO Pt s/p [...] [facility] 02-28-2025 Note HNO ID: [id number] Author: FARIBA BOLAÑOS MD Service: Hospital Medicine Author Type: Physician Type: Progress Notes Filed: 02/28/2025 13:02 Note Text: DEPARTMENT OF HOSPITAL MEDICINE PROGRESS NOTE SERVICE DATE: February 28, 2025 SERVICE TIME: 12:58 PM Hospital Medicine/Primary Attending: Fariba Bolaños NIGHT AND WEEKEND COVERAGE: After 7pm please page [phone] INTERVAL HPI: Follow up GOO Pt s/p [...] echocardiographic exam for comparison. Electronically signed by [employer] Sonal (more content not included)... [facility] 02-28-2025 Note HNO ID: [id number] Author: PETRONA ALBRECHT MD Service: General Surgery [...] questions or concerns Mon-Fri 6a-5p please page [phone]. After 5pm and on Weekends and Holidays, please page [phone] if in ICU or [phone] if on RNF. SUBJECTIVE: NAEON. Jeanie says [...] 0659 02/28/25 07 - 03/01/25 0659 Shift 5911-7004 1567-3637 6790-5981 24 Hour Total 2705-4272 9570-0681 9776-6830 24 Hour Total INTAKE Shift Total OUTPUT [...] [facility] 02-27-2025 Note HNO ID: [id number] Author: KAREEM PEREZ DO Service: Hospital Medicine Author Type: Physician Type: Progress Notes Filed: 02/27/2025 15:55 Note Text: DEPARTMENT OF HOSPITAL MEDICINE PROGRESS NOTE SERVICE DATE: February 27, 2025 SERVICE TIME: 3:41 PM Hospital Medicine/Primary Attending: KAREEM PEREZ DO, DO NIGHT AND WEEKEND COVERAGE: After 7pm please page [phone] INTERVAL HPI: Follow up GOO Pt s/p [...] [facility] 02-27-2025 Note HNO ID: [id number] Author: HARLAN ANDREW RN Service: Care Management [...] [facility] 02-27-2025 Note HNO ID: [id number] Author: HARLAN ANDREW RN Service: Care Management [...] [facility] 02-27-2025 Note HNO ID: [id number] Author: GIOVANNI MCCOY RT(R) Service: Nuclear Medicine [...] PATIENT PRESENTS WITH AN IMPLANTABLE OR ATTACHED DIGITAL MARKETER: No CREATININE: Creatinine Date Value Ref Range [...] No IV SITE: Inpatient - refer to [facility] documentation POST EXAM PIV STATUS: Left in for next appointment PROCEDURE TYPE: NM Stress: 12.9mCi [id number] was administered IV for Rest Imaging at 745 by ty. 35.8 mCi [id number]-[id number] was administered IV for Stress Imaging at 900 by ty. ADMINISTRATION TIME: 745 PATIENT DISCHARGED TO: Patient taken to IP transport area for return to RNF/ICU/ED. Is this a therapy: No A Diagnostic radioactive procedure has taken place, with no further precautions necessary other than routine body substance precautions. More information regarding radiation safety can be found using this link: [email or web address] 20Diagnostic%20Nuclear%20Medicine%20Pro [email or web address] SIGNATURE: RT Anmol(R) PATIENT NAME: Jeanie Rankin DATE: February 27, 2025 TIME: 9:13 AM PAGER/CONTACT #: [facility] 02-27-2025 Note HNO ID: [id number] Author: MUSHTAQ STOREY RN Service: Nursing Author Type: Registered Nurse Type: Nursing Progress Note Filed: 02/27/2025 08:46 Note Text: Lexiscan Nuclear Stress Test discussed with patient, voiced understanding. [facility] 02-27-2025 Note HNO ID: [id number] Author: JULY KENT APRN.CNP Service: Gastroenterology Author [...] [facility] 02-26-2025 Note HNO ID: [id number] Author: KAREEM PEREZ DO Service: Hospital Medicine Author Type: Physician Type: Progress Notes Filed: 02/26/2025 14:58 Note Text: DEPARTMENT OF HOSPITAL MEDICINE PROGRESS NOTE SERVICE DATE: February 26, 2025 SERVICE TIME: 2:51 PM Hospital Medicine/Primary Attending: KAREEM PEREZ DO, DO NIGHT AND WEEKEND COVERAGE: After 7pm please page [phone] INTERVAL HPI: Follow up GOO Pt s/p [...] anticoag therapy (fl,oh) 02/25/25614 pneumatic compression sleeve(s) (sc,oh) 02/25/25614 activity - mobilize patient (sc,sc) SIGNATURE: KAREEM PEREZ DO, DO PATIENT NAME: Jeanie Rankin DATE: February 26, 2025 TIME: 2:51 PM PAGER/CONTACT #: Team color pager Disclaimer: Portions of this note may have been generated using MeetMe voice recognition software. Reaso (more content not included)... [facility] 02-26-2025 Note HNO ID: [id number] Author: BERENICE THOMPSON APRN.CRNA Service: Anesthesiology Author Type: Nurse Rn Patient Care Type: Anesthesia Procedure Notes Filed: 02/26/2025 11:23 Note Text: ANESTHESIOLOGY PROCEDURE NOTE Airway General Information Procedure Start Time/Medication Administration: 02/26/2025 11:10 AM Procedure End Time: 02/26/2025 11:11 AM Patient location during procedure: OR Timeout Performed Pre-procedure: timeout performed Consent Obtained: Yes Patient identity confirmed: arm band Staffing BILINGUAL HR GENERALIST: Berenice Thompson APRN.BILINGUAL HR GENERALIST Performed by: MARLY Indications and Patient Condition [...] February 26, 2025 TIME: 11:22 AM CSN: [id number] [facility] 02-25-2025 Note HNO ID: [id number] Author: RONALDO YI PA-C Service: Hospital Medicine Author Type: Physician Retail Administrative Assistant Type: Plan of Care Filed: 02/25/2025 23:20 [...] [facility] 02-25-2025 Note HNO ID: [id number] Author: AYAZ MERINO LISW Service: Care Management Author Type: Medical Office Coordinator Type: Care Mgt Initial Assessment Filed: 02/25/2025 [...] Current Advance Directive: Health Care Power of [employer], Living Will In Chart: Yes Up To [...] lift) Discharge Planning Patient Goal(s): General wellness [place] of Choice Explained: [place] of Choice Given: No Reason Not Given: [...] [facility] 02-25-2025 Note HNO ID: [id number] Author: KAREEM PEREZ DO Service: Hospital Medicine Author Type: Physician Type: Plan of Care Filed: 02/25/2025 13:37 Note Text: Pt admitted early this am by [employer] team for GOO, with NG in place. [...] [facility] 02-25-2025 Note HNO ID: [id number] Author: MORALES GARCIA, RN Service: Nursing Author Type: Registered Nurse Type: Nursing Progress Note Filed: 02/25/2025 08:09 Note Text: Code status addressed with Dr Perez. DNR signed in chart [facility] 02-24-2025 Consult note [facility] 02-24-2025 Discharge summary [facility] 02-24-2025 Radiology Diagnostic study note [facility] Imaging Services [address] [place], [place] [address] Abdomen/Pelvis without Cont MR#: [id number] Acct: [id number] Name: JEANIE RANKIN Rep #: [id number] : 1940 M 84 From: [facility] jessica Richards MD PCP: Dr. Taylor Zuniga, DO Status: REG ER Study:Abdomen/Pelvis without Cont Date of Exa m: 02/24/25 Exam# [id number] Ordering Dr: Maya Alonso mus DO PROCEDURE: [...] exam. No other acute findings. Reading Location: [id number] CC: Dr. Taylor Zuniga DO; Dr. Zee Alonso DO ~ Special Procedures Nurse: Signed [facility] 02-24-2025 Consult note Note Date/Time February 24, 2025 11:26pm [facility] Medical Records Department [address] [place] [address] Consultation - Surgical 02/24/25 190 MR#: [id number] Acct: [id number] Name: JEANIE RANKIN Rep #:[id number] 1 : 1940 84 From: Windy Jasso [...] tertiary care . Windy Jasso M.D. Pager: [phone] [facility] [address] [place] [address], Outpatient Pavilion, [address] [place] [address] Office: [phone] HPI Consult Data Date of Consult: 02/25/25 [...] body distended with fluid and air-read pending [facility] Medical History (Updated 02/24/25 @ 21:43 by [...] Neosporin AdvReac Mild Itching Verified 02/24/25 17:08 ([id number])) neomycin (From Neosporin AdvReac Mild Itching Verified 02/24/25 17:08 ([id number]-[id number])) polymyxin B (From Neosporin AdvReac Mild Itching Verified 02/24/25 17:08 ([id number]-qta-[id number])) adhesive tape AdvReac Unknown Verified 02/24/25 17:08 [...] 86.5 H, Lymph % (Auto) 4.6 L, Hartley % (Auto) 8.4, Eos % (Auto) 0.0, [...] Charges/Coding Visit Charges Office Visits / Consults: 67887 ED Visit; High/Urgent Severity Multi Select Codes Visit Charges Office Visit/Consults: 33874 ED Visit; High/Urgent Severity 02/25/25 1330 <Electronically signed by Windy Jasso MD> Cosigner Signature (if applicable): CC: Dr. Taylor Zuniga, DO~ Signed [facility] Work Phone: 1(645) 493-936610-21-2025 Radiology Diagnostic study note [facility] Imaging Services [address] [place] [place], [place] [address] CT Chest, Abd, Pel w/Contrast MR#: [id number] Acct: [id number] Name: JEANIE RANKIN Rep #: [id number] 2 : 1940 M 84 From: Jay Pereyra MD PCP: Dr. Taylor Zuniga DO Status: REG ER Study:CT Chest, Abd, Pel w/Contrast Date of E xam: 02/24/25 Exam# [id number] Ordering Dr: Maya Alonso DO PROCEDURE: CT [...] belowthe diaphragm. Gastric decompression recommended. [facility] CC: Dr. Taylor Zuniga DO; Dr. Zee Alonso DO ~ Special Procedures Nurse: Signed [facility]10-21-2025 Radiology Diagnostic study note [facility] Imaging Services [address] [place] [address] Abdomen Single View (Portable) MR#: [id number] Acct: [id number] Name: JEANIE RANKIN Rep #: [id number] 1 : 1940 M 84 From: Dannie Richards MD PCP: Dr. Taylor Zuniga DO Status: REG ER Study:Abdomen Single View (Portable) Date of Exam: 02/24/25 Exam# [id number] Ordering Dr: Maya Alonso DO PROCEDURE: ABDOMEN [...] Zuniga DO; Dr. Zee Alonso DO ~ Special Procedures Nurse: Signed [facility]10-21-2025 Discharge summary Author Zee Alonso [facility] Note Date/Time February 24, 2025 1 1:26pm [facility] Medical Records Department [address] [place] [address] Emergency Department Summary 02/24/25 MR#: [id number] Acct: [id number] Name: JEANIE RANKIN Rep #:[id number] 3 : 1940 84 From: Zee Alonso [...] blood in hisstool or black tarry stool. [facility] Medical History (Updated 02/24/25 @ 21:43 by [...] Neosporin AdvReac Mild Itching Verified 02/24/25 17:08 ([id number])) neomycin (From Neosporin AdvReac Mild Itching Verified 02/24/25 17:08 (cfi-uaz-fsfwt)) polymyxin B (From Neosporin AdvReac Mild Itching Verified 02/24/25 17:08 (qew-wcv-rrdui)) adhesive tape AdvReac Unknown Verified 02/24/25 17:08 [...] care. Family would like to go to [facility]. I discussed case with [facility] transfer line who discussed the case with [...] 86.5 H Lymph % (Auto) 4.6 L Hartley % (Auto) 8.4 Eos % (Auto) 0.0 [...] belowthe diaphragm. Gastric decompression recommended. Reading Location: [facility] X-Ray 02/24/25 18:25 IMPRESSION: Enteric tube terminates appropriately within the stomach. Reading Location: [facility] Abdomen/Pelvis CT 02/24/25 20:30 IMPRESSION: Redemonstrated moderate-large hiatal hernia which contains a herniated short- segment of the proximal duodenum, which is at risk for obstruction. Decreased distention of the stomach and herniated duodenal segment post enteric tube placement since prior exam. No other acute findings. Reading Location: [facility] Critical Care Time Critical care time (excluding procedures): 30-74 minutes, Including time spent:,Discussing w/Patient &/or Family/Legal Consultant, Discussing w/Consultants, ArrangingAdmission or Transfer, Performing Direct [...] [Primary Care Provider, Internal Medicine] Print Language: Sami Disposition Disposition: DC/Tx to Another Type of HCF What to do if you have Problems For any increased pain, shortness of breath, bleeding, nausea or vomiting, chestpain, or any unexpected problems, contact your Primary Care Provider. Call [facility] ([phone]) or report to the closest Emergency Room. Call 911 if necessary. 02/24/25 7046 <Electronically signed by Zee Alonso DO> Cosigner Signature (if applicable): CC: Dr. Taylor Zuniga, DO ~ Signed [facility] Work Phone: 1(659) 751-922908-13-2023 Hospital Discharge instructions Additional Instructions Please follow-up with your PCP. Please have sutures removed in 10 to 14 days and return for any worsening of your symptoms.[facility] Work Phone: Evaluation noteNo assessment information available [facility] Work Phone: Evaluation note* Diagnosis Onset Date [...] outlet obstruction inactive March 05, 2025 3:52pm [facility] Work Phone: Instructions* Name Dates Details Patient [...] for referral (narrative)No reason for referral information [facility] Work Phone: Summary Purpose Family History [...] March 29, 2 016 4:25pm Power of [employer] Yes March 29, 2016 4:25pm Advance Directive Response Recorded Date/ Time Name of Medical Power of [employer] present December 17, 2022 3:39pm Advance Directives Yes March 4:25pm Living Will Yes December 17 3:39pm Power of [employer] Yes December 17, 2 023 3:39pm Advance Directive Response Recorded Date/ Time Advance Directives Yes March 3:25pm Living Will Yes December 17 2:39pm Power of [employer] Yes December 17, 2 023 2:39pm Name of Medical Power of [employer] present December 17, 2022 2:39pm Advance Directive Response Recorded Date/ Time Advance Directives Yes March 4:25pm Living Will Yes December 17 3:39pm Power of [employer] Yes December 17, 2 023 3:39pm Advance Directive Response Recorded Date/ Time Advance Directives Yes March 3:25pm Living Will Yes December 17 2:39pm Power of [employer] Yes December 17, 2 023 2:39pm Advance Directive Response Recorded Date/ Time Advance Directives Yes March 4:25pm Advance Directive Response Recorded Date/ Time Do you have a Healthcare Pow er of [employer]? Yes February 24, 2025 4:08pm Do you have a Healthcare Pow er of [employer]? 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 DATE CREATED AUTHOR AUTHOR'S ORGANIZ ATION 03/20/2025 [facility] Care Teams (unrecognized sec tion and [...] Inactive Member Role Status Dates Dr. Taylor Znuiga DO Primary Care Provider Active Start: September [...] BE BASED ON THE PRIMARY CLINICAL RECORDS. [facility] [employer] [facility]. provides no warranty or guarantee of the accuracy or completeness of information in this document.
== END ==
LOC: OLS.ACH 19:30
PROVIDERS: PCP Internal Medicine; Referring Provider Internal Medicine; Visit Provider Internal Medicine
DX: R19.7 Diarrhea, unspecified (principal)
CPT/HCPCS: 87493